=== PATIENT | female | born 1935 | race Caucasian/White ===

== ENCOUNTER 2018-04-25 10:11 | Emergency (ER) | payer OTHER ==
[2018-04-25 10:53] LABS: Absolute Lymphocytes (CBC) 14.8 K/uL (0.7-4.9); Absolute Monocytes 0.1 K/uL (0.1-1.3); Basophils % 0.4 % (0-1.3); Eosinophils % 0.1 % (0-4.4); Hematocrit 28.7 % (36.0-45.0); Lymphocytes % 92.8 % (15.3-44.8); MCH 34.3 pg (27.0-35.0); MCV 104.1 fL (80-100); MPV 10.1 fL (7.6-11.3); Monocytes % 0.7 % (3.3-12.3); RBC Red Blood Cell Count 2.76 M/uL (3.86-4.86)
--- OUTSIDE RECORDS SUMMARY | 2018-04-25 10:53 | XMS REPORT | Continuity of Care Document ---
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 LYMPHOCYTIC LEUK [address] [place] [address],[facility] FOLLOW Active [address] SHORTNESS OF Active [facility] BREATH [address] [place] [address] DR HAIRSTON TOLD PT Active [facility] TO COME [address] [place] [address] 1 WK POST OP F/U Active [address] PULMONARY Active [facility] FUNCTION TEST [address] [place] [address] AORTIC STENOSIS Active [address] ARTIC STENOSIS Active [address] TAVR Active [address] DX:CAD / Active [address] CCL/R Active [address] A FIB Active [address] SCI Active 012 Rehabilitation LUMBAR RAD Active [address], Rehabilitation Low back Resolved Problem Data [facility] pain<sup>1, 2, 012 8 migrated Medical 3</sup> from [facility], [facility] on 06/20/15. Heart Failure, ZACH Jordan Spinal stenosis Active Problem Data [facility] of lumbar 012 8 migrated Medical region<sup>4, from [facility], 5</sup> [facility] on 06/20/15. Heart Failure LUMBAR Active [facility] RADICULOPATHY [address] [place] [address] Center Diabetes Resolved Problem [facility] [address] [place] [address] Center, [facility] for [facility] Heart Failure, ZACH Jordan CAD - Coronary Active Problem OPID artery disease 3 [facility] DM - Diabetes Active Problem [facility] mellitus 3 [facility] Laminectomy Active Problem OPID 3 [facility] O/E - pain Active Problem OPID 3 [facility] Stented artery Active Problem OPID 3 [place],[facility] Heart attack Active Problem OPID 3 [place],[facility] Breast biopsy and Resolved Problem [facility] related Medical procedures Center, ZACH [facility] Heart Failure CAD - Coronary Active Problem [facility] artery disease [address] [place] [address], [facility] DM - Diabetes Active Problem [facility] mellitus [address] [place] [address], [facility] Heart attack Resolved Problem [address], ZACH [facility] Failure Laminectomy Resolved Problem [address], ZACH [facility] Failure Lumbar region Resolved Problem [facility] injury [address] [place] [address], Z[facility] O/E - pain Resolved Problem [address], ZACH [facility] Stented artery Active Problem [address], ZACH [facility] Heart Failure 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[address] [place] [address] Center replacement Essential [facility] hypertension [address] [place] [address] Hyperlipidemia, [facility] unspecified [address] [place] [address] Center Type 2 diabetes [facility] mellitus with [address] [place] [address] Center unspecified complications Severe aortic Active Problem [facility] stenosis [address] [place] [address], ZACH Jordan Chronic Active Problem [facility] lymphocytic [address] [place] [address] leukemia of [place], 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 Julian having achieved remission Foot swelling Resolved Problem [address] Center, OPITere Jordan HTN (<span Active Problem [facility] ID="[id number]" 8 Medical Confirmed</span> Center, ZACH ) Julian Breast biopsy and Resolved Problem [facility] related [address] [place] [address] Center procedures Cataract Resolved Problem [address] Lumbar region Resolved Problem [facility] injury [address] [place] [address] Cataract Resolved Problem OPID 6 Julian,[facility] Final: Illness, [facility] unspecified [address] [place] [address] Shortness of [facility] breath [address] [place] [address] 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 [address] [place] [address] Center Alkalosis [address] Type 2 diabetes [facility] mellitus with [address] [place] [address] Center hyperglycemia Other disorders [facility] of phosphorus [address] [place] [address] metabolism Hypermagnesemia [address] Center Thrombocytopenia, [facility] unspecified [address] [place] [address] Center Cardiomyopathy, [facility] unspecified [address] [place] [address] Center Acute kidney [facility] failure, [address] [place] [address] unspecified Hypo-osmolality [facility] and hyponatremia [address] [place] [address] Atherosclerotic [facility] heart disease of [address] [place] [address] [place] coronary artery without angina pectoris 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 [address] [place] [address] Center Presence of [facility] automatic cardiac [address] [place] [address] defibrillator 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 [address] [place] [address]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 8 Medical Center disease Presence of [facility] coronary [address] [place] [address] angioplasty implant and graft Claustrophobia [address] Anxiety disorder, [facility] unspecified [address] [place] [address] Monoarthritis, [facility]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[address] [place] [address] classified, 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 [address] [place] [address] Center senior care use of [facility] insulin [address] [place] [address] 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 use of [facility] anticoagulants [address] [place] [address] Constipation, [facility] unspecified Medical Center Other [facility] chondrocalcinosis [address] [place] [address] Center , right knee Other [facility] chondrocalcinosis [address] [place] [address] , left wrist Other [facility] chondrocalcinosis [address] [place] [address] , right wrist Hyperkalemia [address] Type 2 diabetes [facility] mellitus without [address] [place] [address] Center complications Acute myocardial [facility] infarction, [address] [place] [address] unspecified Spinal stenosis, [facility] lumbar region [address] [place] [address] without neurogenic claudication Other specified [facility] postprocedural [address] [place] [address] states Acute respiratory [facility] failure with Medical Center hypoxia 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 [address] [place] [address] valve Ischemic [facility]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 [address] [place] [address] Center Anemia, [facility] unspecified [address] [place] [address] Center Other fatigue [address] [facility] [address] [place] [address] LUMBOSACRAL Active [facility] NEURITIS NOS [facility] LUMBAR DISC Active DISPLACEMENT Rehabilitation, [facility] OTHER GENERAL Active SYMPTOMS Rehabilitation ILLNESS, Active [facility] SHORTNESS OF Active [facility] BREATH [facility] ANEMIA, Active [facility] Medications Medication Details Route Status Patient Ordering Order Source Instructions Provider Date bumetanide 1 mg
See Active 04/22[facility] oral tablet Instructions, 2018 Medical 2 tab PO qAM Center and 1 tab PO qPM, # 90 tab, 3 Refill(s), Pharmacy: [facility]/pharmacy #[id number] valsartan 40 mg
40 mg=1 Active 04/22[facility] oral tablet tab, PO, BID, 2018 Medical # 60 tab, 3 Center Refill(s), Pharmacy: [facility]/pharmacy #[id number] Neulasta
6 mg, Inactive [facility] 0.6 mL, 2018 Medical Route: SUB-Q, Center Drug form: INJ, On Adm, Start date: 03/20/18 8:00:00 CDT, Duration: 1 doses or times, Stop date: 03/20/18 23:00:00 CDT
Notes : (Same as: Neulasta) Restricted to Outpatient Benadryl
50 mg, 1 Inactive 03/19[facility] mL, Route: 2018 Medical IVP, Drug Center form: INJ, ONCALL, Start date: 03/19/18 7:00:00 CDT, Duration: 1 doses or times, Stop date: 03/19/18 21:00:00 CDT
Notes : (Same as: Benadryl) Tylenol
650 mg, Inactive [facility] 2 tab, Route: 2018 Medical PO, Drug Center form: TAB, ONCALL, Start date: 03/19/18 7:00:00 CDT, Duration: 1 doses or times, Stop date: 03/19/18 21:00:00 CDT
Notes : Do not exceed 4 gm/day. (Same as: Tylenol) dexamethasone
8 mg, 2 Inactive 03/19[facility] mL, Route: 2018 Medical IV, Drug Center form: INJ, ONCALL, Start date: 03/19/18 7:00:00 CDT, Duration: 1 doses or times, Stop date: 03/19/18 21:00:00 CDT meperidine
25 mg, 1 No Longer 03/19[facility] mL, Route: Active 2018 Medical IVP, Drug Center form: INJ, Q2H, PRN Chills/Rigors , Start date: 03/19/18 7:00:00 CDT, Duration: 1 day, Stop date: 03/20/18 6:59:00 CDT
Notes : (Same as: Demerol) "Use Precaution in Elderly, Seizure disorders, and Renal impairment" riTUXimab +
600 mg, Inactive [facility] Sodium Chloride 60 mL, Route: 2018 Medical 0.9% IV 190 mL IV, Drug Center form: KELLI ESPINOZA, Start date: 03/19/18 7:00:00 CDT, Duration: 1 doses or times, Stop date: 03/19/18 21:00:00 CDT
Notes : (Do not administer IV push or bolus). Final Concentration =1 mg/mL. Do not send via pneumatic tube system. CHEMOTHERAPY WASTE: F/P - Black; E - Yellow MEDICATION WASTE Product Size: 500 mg / 100 mg Product Wasted: __0_ mg ondansetron
8 mg, 50 Inactive [place] mL, Route: 2017 Medical IVPB, Drug Center form: KELLI ESPINOZA, Start date: 03/19/18 7:00:00 CDT, Duration: 1 doses or times, Stop date: 03/19/18 21:00:00 CDT
Notes : (Same as: Zofran) Use with 50 mL NS bag bendamustine 80
Route: Inactive [facility] mg + Overfill IV, Drug 2018 Medical Diluent form: Berta ESPINOZA Estimated 5 mL + ONCALL, Start Sodium Chloride date: 0.9% IV 50 mL 03/19/18 7:00:00 CDT, Duration: 1 doses or times, Stop date: 03/19/18 21:00:00 CDT
Notes : (Same as: Bendeka) WASTE: F/P - Black; E - Yellow CHEMOTHERAPY; Infuse entire contents for full dose valACYclovir 500
500 mg=1 Active [place] mg oral tablet tab, PO, 2018 Medical Q24H, # 90 Center tab, 1 Refill(s), Pharmacy: [facility]/pharmacy #[id number] Acetaminophen
325 mg, Active [place] PO, QID, 0 2018 Medical Refill(s) Center NIFEdipine 30 mg
30 mg=1 Active [facility] oral tablet, tab, PO, 2018 Medical extended release Daily, # 30 Center tab, 0 Refill(s) doxycycline
100 mg=1 Active [facility] hyclate 100 MG cap, PO, 2018 Medical Oral Capsule Q12H, # 20 Center cap, 0 Refill(s), Pharmacy: [facility]/pharmacy #[id number] Neulasta
6 mg, Inactive [place] 0.6 mL, 2018 Medical Route: SUB-Q, Center Drug form: INJ, ONCALL, Start date: 02/11/18 15:35:00 CDT, Duration: 1 doses or times, Stop date: 02/12/18 0:00:00 CDT
Notes : (Same as: Neulasta) Restricted to Outpatient 1.5 ML Insulin
10 unit, Active [place] Glargine 300 SUB-Q, 2018 Medical UNT/ML Prefilled Bedtime, # 5 [place] Syringe [Toujeo] mL, 0 Refill(s) carvedilol 6.25
6.25 Active [facility] mg oral tablet mg=1 tab, PO, 2018 Medical BID, 0 Center Refill(s) Aspirin 81 MG
81 mg=1 Active [facility] Chewable Tablet tab, PO, 2018 Medical Daily, 0 Center Refill(s) cyanocobalamin
250 Active [facility] 500 mcg microgram=0.5 2018 Medical sublingual tab, PO, Center tablet Daily, # 45 tab, 0 Refill(s) valACYclovir 500
500 mg=1 Active [facility] mg oral tablet tab, PO, 2018 Medical Q24H, 0 Center Refill(s) potassium
40 mEq=2 Active [facility] chloride 20 mEq tab, PO, 2018 Medical oral tablet, Daily, 0 Center extended release Refill(s) pantoprazole 40
40 mg=1 Active [facility] mg oral enteric tab, PO, 2018 Medical coated tablet Before Center Breakfast, 0 Refill(s) levofloxacin 250
250 mg=1 Active [facility] mg oral tablet tab, PO, 2018 Medical [id number], 0 Center Refill(s) Furosemide 40 MG
40 mg=1 Active [facility] Oral Tablet tab, PO, BID, 2018 Medical 0 Refill(s) Center fluconazole 100
100 mg=1 Active [place] mg oral tablet tab, PO, 2018 Medical [id number], 0 Center Refill(s) DULoxetine 30 mg
30 mg=1 Active [facility] oral delayed cap, PO, 2017 Medical release capsule Daily, 0 Center Refill(s) clopidogrel 75
75 mg=1 Active [place] mg oral tablet tab, PO, 2018 Medical Daily, 0 Center Refill(s) Clonidine
0.1 mg=1 Active [place] Hydrochloride tab, PO, BID, 2018 Medical 0.1 MG Oral 0 Refill(s) Center Tablet magnesium oxide
800 mg=2 Active [place] 400 mg oral tab, PO, 2018 Medical tablet Daily, X 30 Center day, # 60 tab, 0 Refill(s) Granix
300 Inactive [place] microgram, 2018 Medical 0.5 mL, Center Route: SUB-Q, Drug form: SOLN, ONCE, Dosing Weight 63.273, kg, Priority: Routine, Start date: 02/06/18 8:00:00 CDT, Stop date: 02/06/18 8:00:00 CDT
Notes : (Same as: Granix) Do not administer earlier than 24 hours after or in the 24 hours prior to cytotoxic chemotherapy. insulin,
10 unit, Inactive [facility] isophane 0.1 mL2017 Medical Route: SUB-Q, Center Drug form: INJ, Q8H-06, Dosing Weight 63.273, kg, Start date: 02/05/18 8:47:00 CDT, Stop date: 03/07/18 6:00:00 CDT
Notes : Roll in palms of hands gently; Do not shake vigorously. (Same as: Humulin N) Do not hold insulin without contacting prescriber WASTE: F/P - Black; E - Municipal Trash Bin Stable for 28 days at room temperature Expires in days from _Date Insulin regular
5 unit, Inactive [place] 0.05 mL, 2017 Medical Route: IV, Center Drug form: SOLN, ONCE, Dosing Weight 63.273, kg, Start date: 02/05/18 8:26:00 CDT, Stop date: 02/05/18 8:26:00 CDT
Notes : (Same as: Humulin R) Roll in palms of hands gently; Do not shake vigorously. "single patient use only" (Restricted to patients requiring a dose > 60 units) WASTE: F/P - Black; E - Municipal Trash Bin Stable for 28 days at room temperature Expires in days from _Date insulin,
15 unit, Inactive [facility] isophane 0.15 mL, 2017 Medical Route: SUB-Q, Center Drug form: INJ, ONCE, Dosing Weight 63.273, kg, Start date: 02/05/18 8:25:00 CDT, Stop date: 02/05/18 8:25:00 CDT
Notes : Roll in palms of hands gently; Do not shake vigorously. (Same as: Humulin N) Do not hold insulin without contacting prescriber WASTE: F/P - Black; E - Municipal Trash Bin Stable for 28 days at room temperature Expires in days from _Date dexamethasone
8 mg, 2 Inactive [place] mL, Route: 2018 Medical IV, Drug Center form: INJ, ONCE, Start date: 02/04/18 22:27:00 CDT, Stop date: 02/04/18 22:27:00 CDT
Notes : Concentration : 4mg/ml dexamethasone
8 mg, Inactive [place] 0.8 mL, 2017 Medical Route: IV, Center Drug form: INJ, ONCE, Start date: 02/04/18 22:21:00 CDT, Stop date: 02/04/18 22:21:00 CDT
Notes : MEDICATION WASTE Product Size: 10 mg Product Wasted: __2_ mg dexamethasone
8 mg, Inactive [place] 0.8 mL, 2017 Medical Route: IV, Center Drug form: INJ, ONCALL, Start date: 02/04/18 21:00:00 CDT, Duration: 1 doses or times, Stop date: 02/05/18 20:59:00 CDT
Notes : MEDICATION WASTE Product Size: 10 mg Product Wasted: __2_ mg EPINEPHrine 1
0.1 mg, No Longer [place] mg/10ml 1 mL, Route: Active 2018 Medical (1:10,000) IV, Drug Center injectable form: SOLN, solution ONCALL, PRN Allergic reaction, Start date: 02/04/18 21:00:00 CDT, Duration: 1 day, Stop date: 02/05/18 20:59:00 CDT
Notes : Luer lock syringe Zofran
8 mg, 4 Inactive [place] mL, Route: 2018 Medical IV, Drug Center form: INJ, ONCALL, Start date: 02/04/18 21:00:00 CDT, Duration: 1 doses or times, Stop date: 02/05/18 20:59:00 CDT
Notes : (Same as: Zofran) MEDICATION WASTE Product Size: 4 mg Product Wasted: ___0 mg Solu-CORTEF
100 mg, No Longer [facility] 2 mL, Route: Active 2018 Medical IV, Drug Center form: PDR/INJ, ONCALL, PRN Allergic reaction, Start date: 02/04/18 21:00:00 CDT, Duration: 1 day, Stop date: 02/05/18 20:59:00 CDT
Notes : (Same as: Solu-CORTEF) bendamustine 110
Route: No Longer [facility] mg + Overfill IV, Drug Active 2017 Medical Diluent form: SOLN, Center Estimated 5 mL + ONCALL, Start Sodium Chloride date: 0.9% IV 50 mL 02/04/18 21:00:00 CDT, Duration: 1 doses or times, Stop date: 02/05/18 20:59:00 CDT
Notes : (Same as: Jose Alfredo) WASTE: F/P - Black; E - Yellow CHEMOTHERAPY; Infuse entire contents for full dose Benadryl
50 mg, 1 No Longer [place] mL, Route: Active 2018 Medical IV, Drug Center form: INJ, ONCALL, PRN Allergic reaction, Start date: 02/04/18 18:02:00 CDT, Duration: 1 day, Stop date: 02/05/18 18:01:00 CDT
Notes : (Same as: Benadryl) Elitek + Sodium
6 mg, Inactive [place] Chloride 0.9% IV Route: IVPB, 2018 Medical 50 mL ONCALL, Start Center date: 02/04/18 18:00:00 CDT, Duration: 1 doses or times, Stop date: 02/05/18 17:59:00 CDT
Notes : Do not filter during preparation or infusion. IV line should be flushed with at least 15 mL saline prior to and following rasburicase infusion Alprazolam 0.25
0.25 mg, No Longer [place] MG Oral Tablet 1 tab, Route: Active 2018 Medical PO, Drug Center form: TAB, TID, Dosing Weight 63.273, kg, PRN as needed for anxiety, Start date: 02/04/18 10:33:00 CDT, Duration: 30 day, Stop date: 03/06/18 10:32:00 CDT
Notes : With food or milk (Same as: Xanax) Humalog
15 unit, No Longer [place] 0.15 mL, Active 2018 Medical Route: SUB-Q, Center Drug form: SOLN, TID, Start date: 02/03/18 13:00:00 CDT, Stop date: 03/05/18 9:00:00 CDT
Notes : (Same as: Humalog ) Roll in palms of hands gently; Do not shake `vigorously. "Single Patient Use Only " WASTE: F/P - Black; E - Municipal Trash Bin Stable for 28 days at room temperature. Expires in days from _Date Insulin Glargine
10 unit, No Longer [facility] [place] 100 UNT/ML Route: SUB-Q, Active 2017 Medical Injectable Daily, Dosing Center Solution Weight 63.273, kg, Start date: 02/03/18 9:00:00 CDT, Duration: 30 day, Stop date: 03/04/18 9:00:00 CDT Insulin Glargine
10 unit, No Longer [facility] 100 UNT/ML 0.1 mL, Active 2017 Medical Injectable Route: SUB-Q, Center Solution Drug form: SOLN, Bedtime, Dosing Weight 63.273, kg, Start date: 02/02/18 21:00:00 CDT, Stop date: 03/03/18 21:00:00 CDT
Notes : (Same as: [place]) Do not hold insulin without contacting prescriber WASTE: F/P - Black; E - Municipal Trash Bin "single patient use only" Magnesium Oxide
800 mg, No Longer [facility] 2 tab, Route: Active 2017 Medical PO, Drug Center form: TAB, BID, Dosing Weight 63.273, kg, Start date: 02/02/18 17:00:00 CDT, Duration: 30 day, Stop date: 03/04/18 9:00:00 CDT
Notes : (Same as: Mag-Ox 400) Magnesium oxide [id number] elemental magnesium Dose=____mg magnesium oxide (___mg elemental magnesium) Ondansetron
4 mg, 2 No Longer [facility] mL, Route: Active 2017 Medical IVP, Drug Center form: INJ, Q4H, Dosing Weight 63.273, kg, PRN Nausea, Start date: 02/02/18 16:15:00 CDT, Duration: 30 day, Stop date: 03/04/18 16:14:00 CDT
Notes : (Same as: [place]) MEDICATION WASTE Product Size: 4 mg Product Wasted: ___ mg Magnesium Oxide
800 mg, Inactive [facility] Route: PO, 2017 Medical Drug form: Center TAB, Daily, Dosing Weight 63.273, kg, Start date: 02/02/18 15:26:00 CDT, Duration: 30 day, Stop date: 03/04/18 9:00:00 CDT Versed
0.5 mg, Inactive [facility] Route: IV, 2018 Medical ONCE, Dosing Center Weight 63.273, kg, Start date: 02/02/18 14:49:00 CDT, Stop date: 02/02/18 14:49:00 CDT Fentanyl
25 Inactive [facility] microgram, 2018 Medical Route: IV, Center ONCE, Dosing Weight 63.273, kg, Start date: 02/02/18 14:49:00 CDT, Stop date: 02/02/18 14:49:00 CDT Versed
0.5 mg, Inactive [facility] Route: IV, 2018 Medical ONCE, Dosing Center Weight 63.273, kg, Start date: 02/02/18 14:44:00 CDT, Stop date: 02/02/18 14:44:00 CDT Fentanyl
25 Inactive [facility] microgram, 2018 Medical Route: IV, Center ONCE, Dosing Weight 63.273, kg, Start date: 02/02/18 14:44:00 CDT, Stop date: 02/02/18 14:44:00 CDT Furosemide 40 MG
40 mg, 1 No Longer [facility] Oral Tablet tab, Route: Active 2018 Medical PO, Drug Center form: TAB, BID, Dosing Weight 63.273, kg, Start date: 02/01/18 17:00:00 CDT, Duration: 30 day, Stop date: 03/03/18 9:00:00 CDT
Notes : (Same as: Lasix) May cause GI upset. Give with food or milk. Vitamin B12
1,000 Inactive [facility] microgram, 1 2018 Medical mL, Route: Center IM, Drug form: INJ, ONCE, Dosing Weight 63.273, kg, Start date: 02/01/18 12:18:00 CDT, Stop date: 02/01/18 12:18:00 CDT
Notes : (Same As: Vitamin B12) Rasburicase
6 mg, Inactive [facility] Route: IV, 2018 Medical ONCE, Dosing Center Weight 63.273, kg, Start date: 02/01/18 12:17:00 CDT, Stop date: 02/01/18 12:17:00 CDT
Notes : Restricted Medication: All Doses of Rasburicase should be interchanged to Rasburicase 6 mg x1 dose. A second dose may be given for patients unresponsive to 1 dose. (Same as:Elitek) MEDICATION WASTE Product Size: 1.5 mg Product Wasted: ___ mg potassium
40 mEq, No Longer [place] chloride 20 mEq 2 tab, Route: Active 2017 Medical oral tablet, PO, Drug Center extended release form: ERTAB, Daily, Dosing Weight 63.273, kg, Start date: 01/31/18 9:00:00 CDT, Duration: 30 day, Stop date: 03/01/18 9:00:00 CDT potassium
40 mEq, No Longer [place] chloride 20 mEq 2 tab, Route: Active 2017 Medical oral tablet, PO, Drug [place] extended release form: ERTAB, Daily, Dosing Weight 63.273, kg, Start date: 01/30/18 20:58:00 CDT, Stop date: 03/01/18 9:00:00 CDT
Notes : (Same as: K-Dur 20) "Do Not Crush" For patients unable to swallow tablet, dissolve in one half glass of water. Allow about 2 minutes for the tablets to disintegrate. Stir before giving to prepare slurry and administer. Please exclude Patients with feeding tube less than 14 [place] (Dobhoff, J-tube etc) and pediatric and patients. With food and full glass of water Vitamin B 12
250 No Longer [place] microgram, 1 Active 2018 Medical tab, Route: Center PO, Drug form: TAB, Daily, Dosing Weight 63.273, kg, Start date: 01/30/18 9:00:00 CDT, Duration: 30 day, Stop date: 02/28/18 9:00:00 CDT
Notes : (Same As: Vitamin B12) Lasix
40 mg, 4 No Longer [place] mL, Route: Active 2017 Medical IVP, Drug Center form: INJ, BID, Dosing Weight 63.273, kg, Start date: 01/29/18 17:00:00 CDT, Stop date: 02/28/18 9:00:00 CDT
Notes : (Same as: Lasix) MEDICATION WASTE Product Size: 40 mg Product Wasted: ___ mg Humulin N
8 unit, Inactive [facility] 0.08 mL, 2017 Medical Route: SUB-Q, [place] Drug form: INJ, ONCE, Start date: 01/29/18 15:00:00 CDT, Stop date: 01/29/18 15:00:00 CDT
Notes : Roll in palms of hands gently; Do not shake vigorously. (Same as: Humulin N) Do not hold insulin without contacting prescriber WASTE: F/P - Black; E - Municipal Trash Bin Stable for 28 days at room temperature Expires in days from _Date insulin,
20 unit, No Longer [facility] isophane 0.2 mL, Active 2017 Medical Route: SUB-Q, [place] Drug form: INJ, Q8H-06, Dosing Weight 63.273, kg, Start date: 01/29/18 14:00:00 CDT, Stop date: 02/28/18 6:00:00 CDT
Notes : Roll in palms of hands gently; Do not shake vigorously. (Same as: Humulin N) Do not hold insulin without contacting prescriber WASTE: F/P - Black; E - Municipal Trash Bin Stable for 28 days at room temperature Expires in days from _Date dexamethasone
40 mg, No Longer [place] 10 tab, Active 2018 Medical Route: PO, Center Drug form: TAB, Q24H, Start date: 01/29/18 14:00:00 CDT, Duration: 2 doses or times, Stop date: 01/30/18 14:00:00 CDT
Notes : Give with food. (Same As: Decadron) insulin regular
10 unit, Inactive [facility] 100 units/mL 0.1 mL, 2018 Medical human Route: IV, Center recombinant Drug form: SOLN, ONCE, Start date: 01/29/18 13:00:00 CDT, Stop date: 01/29/18 13:00:00 CDT
Notes : (Same as: Humulin R) Roll in palms of hands gently; Do not shake vigorously. "single patient use only" (Restricted to patients requiring a dose > 60 units) WASTE: F/P - Black; E - Municipal Trash Bin Stable for 28 days at room temperature Expires in days from _Date insulin regular
10 unit, Inactive [facility] 100 units/mL 0.1 mL, 2017 Medical human Route: IV, Center recombinant Drug form: SOLN, ONCE, Start date: 01/29/18 12:00:00 CDT, Stop date: 01/29/18 12:00:00 CDT
Notes : (Same as: Humulin R) Roll in palms of hands gently; Do not shake vigorously. "single patient use only" (Restricted to patients requiring a dose > 60 units) WASTE: F/P - Black; E - Municipal Trash Bin Stable for 28 days at room temperature Expires in days from _Date Ferrlecit
125 mg, No Longer [facility] 10 mL, Route: Active 2017 [facility] IVPB, Daily, Center Dosing Weight 63.273, kg, Start date: 01/29/18 10:46:00 CDT, Duration: 10 doses or times, Stop date: 02/07/18 9:00:00 CDT
Notes : (sodium ferric gluconate complex (elemental iron) 62.5 mg/5 ml INJ) "Limited stability. Use immediately after admixture" (Same as: Ferrlecit) MEDICATION WASTE Product Size: 62.5 mg Product Wasted: ___ mg Vitamin B 12
1,000 Inactive [facility] microgram, 1 2018 Medical mL, Route: Center IM, Drug form: INJ, ONCE, Dosing Weight 63.273, kg, Start date: 01/29/18 9:01:00 CDT, Stop date: 01/29/18 9:01:00 CDT
Notes : (Same As: Vitamin B12) Lasix
40 mg, 4 Inactive [facility] mL, Route: 2018 Medical IVP, Drug Center form: INJ, BID, Dosing Weight 63.273, kg, Start date: 01/29/18 9:00:00 CDT, Duration: 30 day, Stop date: 02/27/18 17:00:00 CDT
Notes : (Same as: Lasix) MEDICATION WASTE Product Size: 40 mg Product Wasted: ___ mg insulin,
7 unit, Inactive [facility] isophane 0.07 mL, 2018 Medical Route: SUB-Q, [place] Drug form: INJ, ONCE, Dosing Weight 63.273, kg, Start date: 01/29/18 8:58:00 CDT, Stop date: 01/29/18 8:58:00 CDT
Notes : Roll in palms of hands gently; Do not shake vigorously. (Same as: Humulin N) Do not hold insulin without contacting prescriber WASTE: F/P - Black; E - Municipal Trash Bin Stable for 28 days at room temperature Expires in days from _Date Paramjit packet
1 pkt, No Longer [facility] Route: PO, Active 2017 Medical Drug Form: [place] PWDR, Dosing Weight 63.273, kg, BID-Before Meals, Start date: 01/28/18 16:30:00 CDT, Duration: 14 day, Stop date: 02/11/18 7:30:00 CDT
Notes : (Same as: Paramjit [place]) Insulin Lispro
6 unit, No Longer [facility] 0.06 mL, Active 2017 Medical Route: SUB-Q, [place] Drug form: SOLN, TID-Before Meals, Dosing Weight 63.273, kg, PRN Blood Glucose Results, Start date: 01/28/18 15:41:00 CDT, Duration: 30 day, Stop date: 02/27/18 15:40:00 CDT
Notes : (Same as: Humalog ) Roll in palms of hands gently; Do not shake `vigorously. "Single Patient Use Only " WASTE: F/P - Black; E - Municipal Trash Bin Stable for 28 days at room temperature. Expires in days from _Date Dextrose 50%
12.5 gm, No Longer [place] Syringe 25 mL, Route: Active 2018 Medical IVP, Drug Center Form: INJ, Dosing Weight 63.273, kg, PRN, PRN Blood Glucose Results, Start date: 01/28/18 15:41:00 CDT, Duration: 30 day, Stop date: 02/27/18 15:40:00 CDT Glucagon
1 mg, No Longer [facility] Route: IM, Active 2017 Medical Drug form: Center PDR/INJ, PRN, Dosing Weight 63.273, kg, PRN Blood Glucose Results, Start date: 01/28/18 15:41:00 CDT, Duration: 30 day, Stop date: 02/27/18 15:40:00 CDT insulin,
10 unit, No Longer [place] isophane 0.1 mL, Active 2018 Medical Route: SUB-Q, Center Drug form: INJ, Q8H, Dosing Weight 63.273, kg, Start date: 01/28/18 14:58:00 CDT, Duration: 30 day, Stop date: 02/27/18 8:00:00 CDT
Notes : Roll in palms of hands gently; Do not shake vigorously. (Same as: Humulin N) Do not hold insulin without contacting prescriber WASTE: F/P - Black; E - Municipal Trash Bin Stable for 28 days at room temperature Expires in days from _Date Rasburicase
6 mg, Inactive [facility] Route: IV, 2018 Medical ONCE, Dosing Center Weight 63.273, kg, Start date: 01/28/18 13:46:00 CDT, Stop date: 01/28/18 13:46:00 CDT
Notes : Restricted Medication: All Doses of Rasburicase should be interchanged to Rasburicase 6 mg x1 dose. A second dose may be given for patients unresponsive to 1 dose. (Same as:Yukik) MEDICATION WASTE Product Size: 1.5 mg Product Wasted: ___ mg Insulin Lispro
8 unit, No Longer [facility] 0.08 mL, Active 2017 Medical Route: SUB-Q, Center Drug form: SOLN, TID-Before Meals, Dosing Weight 63.273, kg, Start date: 01/28/18 11:30:00 CDT, Stop date: 02/27/18 7:30:00 CDT
Notes : (Same as: Humalog ) Roll in palms of hands gently; Do not shake `vigorously. "Single Patient Use Only " WASTE: F/P - Black; E - Municipal Trash Bin Stable for 28 days at room temperature. Expires in days from _Date Insulin regular
10 unit, Inactive [facility] 0.1 mL, 2017 Medical Route: IV, Center Drug form: SOLN, ONCE, Dosing Weight 63.273, kg, Start date: 01/28/18 11:19:00 CDT, Stop date: 01/28/18 11:19:00 CDT
Notes : (Same as: Humulin R) Roll in palms of hands gently; Do not shake vigorously. "single patient use only" (Restricted to patients requiring a dose > 60 units) WASTE: F/P - Black; E - Municipal Trash Bin Stable for 28 days at room temperature Expires in days from _Date 3 ML Insulin
5 unit, Inactive [facility] Glargine 100 0.05 mL, 2018 Medical UNT/ML Prefilled Route: SUB-Q, Center Syringe [Lantus] Drug form: SOLN, ONCE, Dosing Weight 63.273, kg, Start date: 01/28/18 11:13:00 CDT, Stop date: 01/28/18 11:13:00 CDT
Notes : Same as: Lantus) Do not hold insulin without contacting prescriber WASTE: F/P - Black; E - Municipal Trash Bin Insulin Lispro
10 unit, Inactive [facility] Route: SUB-Q, 2017 Medical ONCE, Dosing Center Weight 63.273, kg, Start date: 01/28/18 11:11:00 CDT, Stop date: 01/28/18 11:11:00 CDT NIFEdipine 30 mg
30 mg, 1 No Longer [facility] oral tablet, tab, Route: Active 2017 Medical extended release PO, Drug Center form: ERTAB, Daily, Dosing Weight 63.273, kg, Start date: 01/28/18 9:00:00 CDT, Duration: 30 day, Stop date: 02/26/18 9:00:00 CDT potassium
20 mEq, No Longer [facility] chloride 20 mEq 1 tab, Route: Active 2017 Medical oral tablet, PO, Drug Center extended release form: ERTAB, Q12H, Dosing Weight 63.273, kg, Start date: 01/28/18 9:00:00 CDT, Duration: 30 day, Stop date: 02/26/18 21:00:00 CDT
Notes : (Same as: K-Dur 20) "Do Not Crush" For patients unable to swallow tablet, dissolve in one half glass of water. Allow about 2 minutes for the tablets to disintegrate. Stir before giving to prepare slurry and administer. Please exclude Patients with feeding tube less than 14 [place] (Dobhoff, J-tube etc) and pediatric and patients. With food and full glass of water Lovenox
30 mg, No Longer [facility] 0.3 mL, Active 2017 Medical Route: SUB-Q, Center Drug form: INJ, [id number], Dosing Weight 63.273, kg, For CrCl <30mL/min, Start date: 01/28/18 9:00:00 CDT, Duration: 30 day, Stop date: 02/26/18 9:00:00 CDT
Notes : (Same as: Lovenox) Magnesium Oxide
800 mg, No Longer [facility] 2 tab, Route: Active 2018 Medical PO, Drug Center form: TAB, Daily, Dosing Weight 63.273, kg, Start date: 01/28/18 9:00:00 CDT, Duration: 30 day, Stop date: 02/26/18 9:00:00 CDT
Notes : (Same as: Mag-Ox 400) Magnesium oxide [id number] elemental magnesium Dose=____mg magnesium oxide (___mg elemental magnesium) Docusate Sodium
100 mg, No Longer [facility] 100 MG Oral 1 cap, Route: Active 2018 Medical Capsule [Colace] PO, Drug Center form: CAP, BID, Dosing Weight 63.273, kg, Start date: 01/28/18 9:00:00 CDT, Duration: 30 day, Stop date: 02/26/18 17:00:00 CDT
Notes : (Same as: Colace) (Do Not Crush) Miralax
17 gm, 1 No Longer [place] pkt, Route: Active 2018 Medical PO, Drug Center form: PWDR, Daily, Dosing Weight 63.273, kg, Start date: 01/28/18 9:00:00 CDT, Duration: 30 day, Stop date: 02/26/18 9:00:00 CDT
Notes : Dissolve in 8 oz of water or juice. (Same as: Miralax) Sodium Chloride
540 mL, Inactive [facility] 0.9% IV 540 mL + Rate: Titrate 2018 Medical riTUXimab 600 mg as directed., Center Route: IV, Dosing Weight 63.273 kg, Total Volume: 600, Start date: 01/27/18 23:00:00 CDT, Duration: 1 doses or times, Stop date: 01/28/18 22:59:00 CDT, 1.69, m2
Notes: (Do not administer IV push or bolus). Final Concentration =1 mg/mL. Start infusion at 50 mg/hr and increase by 50 mg/hr every 30 minutes to a maximum rate of 400 mg/hr. Do not send via pneumatic tube system. CHEMOTHERAPY; Infuse entire contents for full dose. (Same as: Rituxan) WASTE: F/P - Black; E - Yellow MEDICATION WASTE Product Size: 100 mg Product Wasted: ___ mg dexamethasone
40 mg, No Longer [facility] 10 tab, Active 2017 Medical Route: PO, Center Drug form: TAB, Daily, Start date: 01/27/18 23:00:00 CDT, Duration: 4 day, Stop date: 01/30/18 23:00:00 CDT
Notes : Give with food. (Same As: Decadron) Insulin Lispro
10 unit, No Longer [place] 0.1 mL, Active 2017 Medical Route: SUB-Q, Center Drug form: SOLN, TID-Before Meals, Dosing Weight 63.273, kg, PRN Blood Glucose Results, Start date: 01/27/18 22:38:00 CDT, Duration: 30 day, Stop date: 02/26/18 22:37:00 CDT
Notes : (Same as: Humalog ) Roll in palms of hands gently; Do not shake `vigorously. "Single Patient Use Only " WASTE: F/P - Black; E - Municipal Trash Bin Stable for 28 days at room temperature. Expires in days from _Date Glucagon
1 mg, No Longer [place] Route: IM, Active 2017 Medical Drug form: Center PDR/INJ, PRN, Dosing Weight 63.273, kg, PRN Blood Glucose Results, Start date: 01/27/18 22:38:00 CDT, Duration: 30 day, Stop date: 02/26/18 22:37:00 CDT Dextrose 50%
12.5 gm, No Longer [place] Syringe 25 mL, Route: Active 2018 Medical IVP, Drug Center Form: INJ, Dosing Weight 63.273, kg, PRN, PRN Blood Glucose Results, Start date: 01/27/18 22:38:00 CDT, Duration: 30 day, Stop date: 02/26/18 22:37:00 CDT meperidine
25 mg, 1 Inactive [facility] mL, Route: 2018 Medical IVP, Drug Center form: INJ, ONCE, Start date: 01/27/18 22:30:00 CDT, Stop date: 01/27/18 22:30:00 CDT
Notes : (Same as: Demerol) "Use Precaution in Elderly, Seizure disorders, and Renal impairment" Tylenol
650 mg, Inactive [facility] 2 tab, Route: 2018 Medical PO, Drug Center form: TAB, ONCE, Start date: 01/27/18 22:30:00 CDT, Stop date: 01/27/18 22:30:00 CDT
Notes : Do not exceed 4 gm/day. (Same as: Tylenol) Benadryl
50 mg, 1 Inactive [facility] mL, Route: 2017 Medical IVP, Drug Center form: INJ, ONCE, Start date: 01/27/18 22:30:00 CDT, Stop date: 01/27/18 22:30:00 CDT
Notes : (Same as: Benadryl) Elitek + Sodium
6 mg, Inactive [facility] Chloride 0.9% IV Route: IVPB, 2017 Medical 50 mL ONCE, Start Center date: 01/27/18 22:30:00 CDT, Stop date: 01/27/18 22:30:00 CDT
Notes : Restricted Medication: All Doses of Rasburicase should be interchanged to Rasburicase 6 mg x1 dose. A second dose may be given for patients unresponsive to 1 dose. (Same as:Elitek) MEDICATION WASTE Product Size: 1.5 mg Product Wasted: ___ mg meperidine
25 mg, 1 No Longer [facility] mL, Route: Active 2017 Medical IVP, Drug Center form: INJ, Q2H, PRN Allergic reaction, Start date: 01/27/18 21:35:00 CDT, Duration: 1 day, Stop date: 01/28/18 21:34:00 CDT
Notes : (Same as: Demerol) "Use Precaution in Elderly, Seizure disorders, and Renal impairment" EPINEPHrine 1
0.1 mg, No Longer [facility] mg/10ml 1 mL, Route: Active 2018 Medical (1:10,000) IVP, Drug Center injectable form: SOLN, solution ONCE, PRN Allergic reaction, Start date: 01/27/18 21:34:00 CDT
Notes : Luer lock syringe Benadryl
50 mg, 1 No Longer [facility] mL, Route: Active 2017 Medical IVP, Drug Center form: INJ, ONCE, PRN Allergic reaction, Start date: 01/27/18 21:29:00 CDT
Notes : (Same as: Benadryl) Solu-CORTEF
100 mg, No Longer [facility] 2 mL, Route: Active 2017 Medical IVP, Drug Center form: PDR/INJ, ONCE, PRN Allergic reaction, Start date: 01/27/18 21:27:00 CDT
Notes : (Same as: Solu-CORTEF) Zofran
8 mg, 4 No Longer [facility] mL, Route: Active 2017 Medical IVP, Drug Center form: INJ, ONCE, PRN Nausea & Vomiting, Start date: 01/27/18 21:19:00 CDT
Notes : (Same as: Zofran) MEDICATION WASTE Product Size: 4 mg Product Wasted: ___ mg Lasix
40 mg, 4 No Longer [facility] mL, Route: Active 2017 Medical IVP, Drug Center form: INJ, BID, Dosing Weight 63.273, kg, Start date: 01/27/18 17:00:00 CDT, Duration: 30 day, Stop date: 02/26/18 9:00:00 CDT
Notes : (Same as: Lasix) MEDICATION WASTE Product Size: 40 mg Product Wasted: ___ mg Fluconazole
100 mg, No Longer [facility] 1 tab, Route: Active 2018 Medical PO, Drug Center form: TAB, [id number], Dosing Weight 63.273, kg, Start date: 01/27/18 16:00:00 CDT, Duration: 30 day, Stop date: 02/25/18 16:00:00 CDT, ABX Indication: Immunocomprom ised Host Prophylaxis<b r/>Notes: (Same as: Diflucan) Saline Flush
10 mL, No Longer [facility] 0.9% Route: IVP, Active 2017 Medical Drug Form: [place] INJ, Dosing Weight 63.273, kg, Q8H, Start date: 01/27/18 16:00:00 CDT, Duration: 30 day, Stop date: 02/26/18 8:00:00 CDT
Notes : (Same as: BD Posiflush) Levofloxacin
250 mg, No Longer [facility] 1 tab, Route: Active 2018 Medical PO, Drug Center form: TAB, [id number], Dosing Weight 63.273, kg, Start date: 01/27/18 15:18:00 CDT, Duration: 30 day, Stop date: 02/24/18 15:18:00 CDT, ABX Indication: Immunocomprom ised Host Prophylaxis<b r/>Notes: Do not give w/antacids, dairy pdt & minerals Take 1 hr before or 2 hr after dairy pdt (Same as:Levaquin) Lidocaine
50 mg, 5 No Longer [facility] Hydrochloride 10 mL, Route: Active 2017 Medical MG/ML Injectable INTRADERM, [facility] Solution Drug Form: INJ, Dosing Weight 63.273, kg, ONCALL, Start date: 01/27/18 13:00:00 CDT, Duration: 30 day, Stop date: 02/26/18 12:59:00 CDT
Notes : (Same as: Xylocaine) Saline Flush
10 mL, No Longer [facility] 0.9% Route: IVP, Active 2017 Medical Drug Form: [place] INJ, Dosing Weight 63.273, kg, PRN, PRN Line Flush, Start date: 01/27/18 12:49:00 CDT, Duration: 30 day, Stop date: 02/26/18 12:48:00 CDT
Notes : (Same as: BD Posiflush) Fluconazole
100 mg, Inactive [facility] Route: PO, 2018 Medical Drug form: [place] TAB, [id number], Dosing Weight 63.273, kg, Start date: 01/27/18 12:00:00 CDT, Duration: 30 day, Stop date: 02/25/18 12:00:00 CDT, ABX Indication: Open Wound Prophylaxis valacyclovir
500 mg, No Longer [facility] 1 tab, Route: Active 2017 Medical PO, Drug Center form: TAB, Q24H, Dosing Weight 63.273, kg, Start date: 01/27/18 12:00:00 CDT, Duration: 30 day, Stop date: 02/25/18 12:00:00 CDT
Notes : (Same As: Valtrex) Lasix
40 mg, 4 Inactive [facility] mL, Route: 2018 Medical IVP, Drug Center form: INJ, Daily, Dosing Weight 63.273, kg, Start date: 01/27/18 11:27:00 CDT, Duration: 30 day, Stop date: 02/26/18 9:00:00 CDT
Notes : (Same as: Lasix) MEDICATION WASTE Product Size: 40 mg Product Wasted: ___ mg duloxetine
30 mg, 1 No Longer [facility] cap, Route: Active 2017 Medical PO, Drug Center form: DRC, Daily, Dosing Weight 63.636, kg, Start date: 01/27/18 9:00:00 CDT, Duration: 30 day, Stop date: 02/25/18 9:00:00 CDT
Notes : (Same as: Cymbalta) (Do Not Crush) clopidogrel
75 mg, 1 No Longer [facility] tab, Route: Active 2017 Medical PO, Drug Center form: TAB, Daily, Dosing Weight 63.636, kg, Start date: 01/27/18 9:00:00 CDT, Duration: 30 day, Stop date: 02/25/18 9:00:00 CDT
Notes : (Same As: Plavix) Clonidine
0.1 mg, No Longer [facility] Hydrochloride 1 tab, Route: Active 2017 Medical 0.1 MG Oral PO, Drug Center Tablet form: TAB, BID, Dosing Weight 63.636, kg, Start date: 01/27/18 9:00:00 CDT, Duration: 30 day, Stop date: 02/25/18 17:00:00 CDT
Notes : (Same As: Catapres) Lasix
40 mg, 1 Inactive [facility] tab, Route: 2018 Medical PO, Drug Center form: TAB, Daily, Dosing Weight 63.636, kg, Start date: 01/27/18 9:00:00 CDT, Duration: 30 day, Stop date: 02/25/18 9:00:00 CDT
Notes : (Same as: Lasix) May cause GI upset. Give with food or milk. Insulin Glargine
18 unit, No Longer [facility] 0.18 mL, Active 2017 Medical Route: SUB-Q, Center Drug form: SOLN, Daily, Dosing Weight 63.636, kg, Start date: 01/27/18 9:00:00 CDT, Stop date: 02/25/18 9:00:00 CDT
Notes : Same as: Lantus) Do not hold insulin without contacting prescriber WASTE: F/P - Black; E - Municipal Trash Bin carvedilol
6.25 mg, No Longer [facility] 1 tab, Route: Active 2017 Medical PO, Drug Center form: TAB, BID, Dosing Weight 63.636, kg, Start date: 01/27/18 9:00:00 CDT, Duration: 30 day, Stop date: 02/25/18 21:00:00 CDT
Notes : Give with food. (Same As: Coreg) Aspirin 81 MG
81 mg, 1 No Longer [facility] Chewable Tablet tab, Route: Active 2018 Medical PO, Drug Center form: CHEWTAB, Daily, Dosing Weight 63.636, kg, Start date: 01/27/18 9:00:00 CDT, Duration: 30 day, Stop date: 02/25/18 9:00:00 CDT
Notes : Take with food. Lovenox
30 mg, No Longer [facility] Route: SUB-Q, Active 2017 Medical Drug form: Center INJ, [id number], Dosing Weight 63.636, kg, For CrCl <30mL/min, Start date: 01/27/18 9:00:00 CDT, Duration: 30 day, Stop date: 02/25/18 9:00:00 CDT heparin
5,000 No Longer [facility] unit, 1 mL, Active 2017 Medical Route: SUB-Q, Center Drug form: INJ, Q8H, Dosing Weight 63.636, kg, Start date: 01/27/18 8:00:00 CDT, Duration: 30 day, Stop date: 02/26/18 0:00:00 CDT
Notes : porcine heparin pantoprazole
40 mg, 1 No Longer [facility] tab, Route: Active 2017 Medical PO, Drug Center form: ECTAB, Before Breakfast, Dosing Weight 63.636, kg, Start date: 01/27/18 7:30:00 CDT, Duration: 30 day, Stop date: 02/25/18 7:30:00 CDT
Notes : Tablet should not be chewed or crushed. (Same as: Protonix) tramadol
50 mg, 1 Inactive [facility] hydrochloride 50 tab, Route: 2018 Medical MG Oral Tablet PO, Drug Center form: TAB, ONCE, Dosing Weight 63.835, kg, Start date: 01/26/18 23:12:00 CDT, Stop date: 01/26/18 23:12:00 CDT
Notes : Not to exceed 400mg/day. (Same As: Ultram) Saline Flush
10 ml, No Longer [facility] 0.9% Route: IVP, Active 2017 Medical Drug Form: Center INJ, Dosing Weight 63.636, kg, Q12H, Start date: 01/26/18 21:00:00 CDT, Duration: 30 day, Stop date: 02/25/18 9:00:00 CDT
Notes : (Same as: BD Posiflush) Magnesium
1 gm, 50 No Longer [facility] Sulfate mL, Route: Active 2017 Medical IVPB, Drug Center form: INJ, PRN, Dosing Weight 63.636, kg, PRN Abnormal Lab Result, For NON-ICU Patients Only., Start date: 01/26/18 20:30:00 CDT, Duration: 30 day, Stop date: 02/25/18 20:29:00 CDT
Notes : WASTE: F/P - Sink; E - Municipal Trash Bin Magnesium Oxide
800 mg, No Longer [place] 2 tab, Route: Active 2018 Medical PO, Drug Center form: TAB, PRN, Dosing Weight 63.636, kg, PRN Abnormal Lab Result, For NON-ICU Patients Only., Start date: 01/26/18 20:30:00 CDT, Duration: 30 day, Stop date: 02/25/18 20:29:00 CDT
Notes : (Same as: Mag-Ox 400) Magnesium oxide [id number] elemental magnesium Dose=____mg magnesium oxide (___mg elemental magnesium) Calcium
2 gm, 20 No Longer [place] Gluconate mL, Route: Active 2017 Medical IVPB, PRN, Center Dosing Weight 63.636, kg, PRN Abnormal Lab Result, For NON-ICU Patients Only., Start date: 01/26/18 20:30:00 CDT, Duration: 30 day, Stop date: 02/25/18 20:29:00 CDT
Notes : WASTE: F/P - Sink; E - Municipal Trash Bin potassium
2 pkt, No Longer [place] phosphate-sodium Route: PO, Active 2017 Medical phosphate 250 Drug Form: Center mg-280 mg-160 mg PDR/REC, oral powder for Dosing Weight reconstitution 63.636, kg, PRN, PRN Abnormal Lab Result, For NON-ICU Patients Only, Start date: 01/26/18 20:30:00 CDT, Duration: 30 day, Stop date: 02/25/18 20:29:00 CDT
Notes : (Same as: Phos-NaK) Each 1.5 gm pkt has 250mg phosphorous. Mix w/2.5oz water and stir. potassium
15 mmol, No Longer [place] phosphate 5 mL, Route: Active 2017 Medical IVPB, PRN, Center Dosing Weight 63.636, kg, PRN Abnormal Lab Result, For NON-ICU Patients Only., Start date: 01/26/18 20:30:00 CDT, Duration: 30 day, Stop date: 02/25/18 20:29:00 CDT
Notes : (Same as: K Phosphate.) 1 mMol phoshate has 1.47 mEq potassium Infuse over 4 hours sodium phosphate
15 mmol, No Longer [place] 5 mL, Route: Active 2018 [facility] IVPB, PRN, Center Dosing Weight 63.636, kg, PRN Abnormal Lab Result, For NON-ICU Patients Only., Start date: 01/26/18 20:30:00 CDT, Duration: 30 day, Stop date: 02/25/18 20:29:00 CDT Potassium
20 mEq, No Longer [place] Chloride 1 tab, Route: Active 2018 [facility] PO, Drug Center form: ERTAB, PRN, Dosing Weight 63.636, kg, PRN Abnormal Lab Result, For NON-ICU Patients Only, Start date: 01/26/18 20:30:00 CDT, Duration: 30 day, Stop date: 02/25/18 20:29:00 CDT
Notes : (Same as: K-Dur 20) "Do Not Crush" For patients unable to swallow tablet, dissolve in one half glass of water. Allow about 2 minutes for the tablets to disintegrate. Stir before giving to prepare slurry and administer. Please exclude Patients with feeding tube less than 14 [place] (Dobhoff, J-tube etc) and pediatric and patients. With food and full glass of water Insulin Lispro
3 unit, No Longer [facility] 0.03 mL, Active 2018 Medical Route: SUB-Q, Center Drug form: SOLN, Bedtime, Dosing Weight 63.636, kg, PRN Blood Glucose Results, Start date: 01/26/18 20:29:00 CDT, Duration: 30 day, Stop date: 02/25/18 20:28:00 CDT
Notes : (Same as: Humalog ) Roll in palms of hands gently; Do not shake `vigorously. "Single Patient Use Only " WASTE: F/P - Black; E - Municipal Trash Bin Stable for 28 days at room temperature. Expires in days from _Date Glucagon
1 mg, No Longer [facility] Route: IM, Active 2018 Medical Drug form: Center PDR/INJ, PRN, Dosing Weight 63.636, kg, PRN Blood Glucose Results, Start date: 01/26/18 20:29:00 CDT, Duration: 30 day, Stop date: 02/25/18 20:28:00 CDT Dextrose 50%
12.5 gm, No Longer [place] Syringe 25 mL, Route: Active 2017 Medical IVP, Drug Center Form: INJ, Dosing Weight 63.636, kg, PRN, PRN Blood Glucose Results, Start date: 01/26/18 20:29:00 CDT, Duration: 30 day, Stop date: 02/25/18 20:28:00 CDT Furosemide
20 mg, 2 Inactive [place] mL, Route: 2018 Medical IVP, Drug Center form: INJ, ONCE, Dosing Weight 63.636, kg, Start date: 01/26/18 20:25:00 CDT, Stop date: 01/26/18 20:25:00 CDT
Notes : (Same as: Lasix) Saline Flush
10 ml, No Longer [place] 0.9% Route: IVP, Active 2017 Medical Drug Form: Center INJ, Dosing Weight 63.636, kg, PRN, PRN Line Flush, Start date: 01/26/18 20:20:00 CDT, Duration: 30 day, Stop date: 02/25/18 20:19:00 CDT
Notes : (Same as: BD Posiflush) Tylenol
650 mg, No Longer [facility] 2 tab, Route: Active 2018 Medical PO, Drug Center form: TAB, Q6H, Dosing Weight 63.636, kg, PRN Pain Score 1-3, Start date: 01/26/18 19:54:00 CDT, Duration: 30 day, Stop date: 02/25/18 19:53:00 CDT
Notes : Do not exceed 4 gm/day. (Same as: Tylenol) 1.5 ML Insulin
14 No Longer [facility] Glargine 300 units, SUB-Q, Active 2017 Medical UNT/ML Prefilled Bedtime, 0 Center Syringe [Toujeo] Refill(s) glimepiride 4 mg
4 mg=1 Active [facility] oral tablet tab, PO, BID, 2018 Medical 0 Refill(s) Center Metformin
500 mg, Active [facility] PO, BID, 0 2018 Medical Refill(s) Center Lorazepam 2 MG
2 mg=1 No Longer [facility] Oral Tablet tab, PO, Active 2018 Medical [Ativan] ONCE, take 1 Center tab 10 minutes prior to [employer] and again during if needed, # 2 tab, 0 Refill(s) Furosemide 40 MG
40 mg=1 No Longer [facility] Oral Tablet tab, PO, BID, Active 2017 Medical [Lasix] # 60 tab, 3 Center Refill(s), Pharmacy: [facility]/pharmacy #[id number] potassium
20 mEq=1 No Longer [facility] chloride 20 mEq tab, PO, Active 2017 Medical oral tablet, Q12H, # 60 Center extended release tab, 3 Refill(s), Pharmacy: [facility]/pharmacy #[id number] Furosemide 40 MG
40 mg, 1 Inactive [facility] Oral Tablet tab, Route: 2018 Medical [Lasix] PO, Drug Center form: TAB, BID, Dosing Weight 64.091, kg, Start date: 01/05/18 9:23:00 CDT, Duration: 30 day, Stop date: 02/04/18 9:00:00 CDT
Notes : (Same as: Lasix) May cause GI upset. Give with food or milk. Ambien
5 mg, 1 No Longer [facility] tab, Route: Active 2017 Medical PO, Drug Center form: TAB, Bedtime, Dosing Weight 64.091, kg, PRN Insomnia, Start date: 01/03/18 22:28:00 [employer], Duration: 30 day, Stop date: 02/02/18 22:27:00 CDT
Notes : (Same As: Ambien) potassium
20 mEq, No Longer [place] chloride 20 mEq 1 tab, Route: Active 2018 Medical oral tablet, PO, Drug Center extended release form: ERTAB, Q12H, Dosing Weight 64.091, kg, Start date: 01/03/18 21:00:00 [employer], Duration: 30 day, Stop date: 02/02/18 9:00:00 CDT
Notes : (Same as: K-Dur 20) "Do Not Crush" With food and full glass of water Potassium
10 mEq, No Longer [place] Chloride 50 mL, Route: Active 2018 [facility] IVPB, Drug [place] form: INJ, PRN, Dosing Weight 64.091, kg, PRN Abnormal Lab Result, For NON-ICU Patients Only, Start date: 01/03/18 13:47:00 [employer], Duration: 30 day, Stop date: 02/02/18 14:46:00 CDT
Notes : (Same as: KCL) Infuse over 2 hours. potassium
2 pkt, No Longer [facility] phosphate-sodium Route: PO, Active 2017 Medical phosphate 250 Drug Form: [place] mg-280 mg-160 mg PDR/REC, oral powder for Dosing Weight reconstitution 64.091, kg, PRN, PRN Abnormal Lab Result, For NON-ICU Patients Only, Start date: 01/03/18 13:47:00 [employer], Duration: 30 day, Stop date: 02/02/18 14:46:00 CDT
Notes : (Same as: Phos-NaK) Each 1.5 gm pkt has 250mg phosphorous. Mix w/2.5oz water and stir. potassium
15 mmol, No Longer [place] phosphate 5 mL, Route: Active 2018 Medical IVPB, PRN, Center Dosing Weight 64.091, kg, PRN Abnormal Lab Result, For NON-ICU Patients Only., Start date: 01/03/18 13:47:00 [employer], Duration: 30 day, Stop date: 02/02/18 14:46:00 CDT
Notes : (Same as: K Phosphate.) 1 mMol phoshate has 1.47 mEq potassium Infuse over 4 hours Calcium
2 gm, 20 No Longer [place] Gluconate mL, Route: Active 2018 Medical IVPB, PRN, Center Dosing Weight 64.091, kg, PRN Abnormal Lab Result, For NON-ICU Patients Only., Start date: 01/03/18 13:47:00 [employer], Duration: 30 day, Stop date: 02/02/18 14:46:00 CDT
Notes : WASTE: F/P - Sink; E - Municipal Trash Bin Magnesium Oxide
800 mg, No Longer [place] 2 tab, Route: Active 2018 Medical PO, Drug Center form: TAB, PRN, Dosing Weight 64.091, kg, PRN Abnormal Lab Result, For NON-ICU Patients Only., Start date: 01/03/18 13:47:00 [employer], Duration: 30 day, Stop date: 02/02/18 14:46:00 CDT
Notes : (Same as: Mag-Ox 400) Magnesium oxide [id number] elemental magnesium Dose=____mg magnesium oxide (___mg elemental magnesium) Magnesium
1 gm, No Longer [place] Sulfate 100 mL, Active 2018 Medical Route: IVPB, Center Drug form: INJ, PRN, Dosing Weight 64.091, kg, PRN Abnormal Lab Result, For NON-ICU Patients Only., Start date: 01/03/18 13:47:00 [employer], Duration: 30 day, Stop date: 02/02/18 14:46:00 CDT
Notes : WASTE: F/P - Sink; E - Municipal Trash Bin sodium phosphate
15 mmol, No Longer [place] 5 mL, Route: Active 2018 Medical IVPB, PRN, Center Dosing Weight 64.091, kg, PRN Abnormal Lab Result, For NON-ICU Patients Only., Start date: 01/03/18 13:47:00 [employer], Duration: 30 day, Stop date: 02/02/18 14:46:00 CDT Miralax
17 gm, 1 No Longer [place] pkt, Route: Active 2018 Medical PO, Drug Center form: PWDR, BID, Dosing Weight 64.091, kg, Start date: 01/02/18 17:33:00 [employer], Duration: 30 day, Stop date: 02/01/18 17:00:00 CDT
Notes : Dissolve in 8 oz of water or juice. (Same as: Miralax) Calcium
1,000 No Longer [place] Carbonate 500 MG mg, 2 tab, Active 2018 Medical Chewable Tablet Route: PO, Center Drug form: CHEWTAB, PRN, Dosing Weight 64.091, kg, PRN Abnormal Lab Result, FOR ICU USE ONLY, Start date: 01/01/18 22:59:00 [employer], Duration: 30 day, Stop date: 01/31/18 23:58:00 CDT
Notes : (Same As: Tums) Calcium Carbonate 500 ro=467 mg elemental calcium Dose= mg calcium carbonate ( mg elemental calcium) potassium
2 pkt, No Longer [place] phosphate-sodium Route: PO, Active 2018 Medical phosphate 250 Drug Form: Center mg-280 mg-160 mg PDR/REC, oral powder for Dosing Weight reconstitution 64.091, kg, PRN, PRN Abnormal Lab Result, FOR ICU USE ONLY, Start date: 01/01/18 22:59:00 [employer], Duration: 30 day, Stop date: 01/31/18 23:58:00 CDT
Notes : (Same as: Phos-NaK) Each 1.5 gm pkt has 250mg phosphorous. Mix w/2.5oz water and stir. Calcium
1 gm, 10 No Longer [place] Gluconate mL, Route: Active 2018 Medical IVPB, PRN, Center Dosing Weight 64.091, kg, PRN Abnormal Lab Result, Start date: 01/01/18 22:59:00 [employer], Duration: 30 day, Stop date: 01/31/18 23:58:00 CDT, FOR ICU USE ONLY
Note s: WASTE: F/P - Sink; E - [employer] Trash Bin Magnesium
2 gm, 50 No Longer [place] Sulfate mL, Route: Active 2018 Medical IVPB, Drug Center form: INJ, PRN, Dosing Weight 64.091, kg, PRN Abnormal Lab Result, Start date: 01/01/18 22:59:00 [employer], Duration: 30 day, Stop date: 01/31/18 23:58:00 CDT, FOR ICU USE ONLY
Note s: WASTE: F/P - Sink; E - [employer] Trash Bin Magnesium Oxide
800 mg, No Longer [place] 2 tab, Route: Active 2018 Medical PO, Drug Center form: TAB, PRN, Dosing Weight 64.091, kg, PRN Abnormal Lab Result, FOR ICU USE ONLY, Start date: 01/01/18 22:59:00 [employer], Duration: 30 day, Stop date: 01/31/18 23:58:00 CDT
Notes : (Same as: Mag-Ox 400) Magnesium oxide [id number] elemental magnesium Dose=____mg magnesium oxide (___mg elemental magnesium) sodium phosphate
15 mmol, No Longer [place] 5 mL, Route: Active 2018 Medical IVPB, PRN, Center Dosing Weight 64.091, kg, PRN Abnormal Lab Result, Start date: 01/01/18 22:59:00 [employer], Duration: 30 day, Stop date: 01/31/18 23:58:00 CDT, FOR ICU USE ONLY potassium
30 mmol, No Longer [place] phosphate 10 mL, Route: Active 2018 Medical IVPB, PRN, Center Dosing Weight 64.091, kg, PRN Abnormal Lab Result, Start date: 01/01/18 22:59:00 [employer], Duration: 30 day, Stop date: 01/31/18 23:58:00 CDT, FOR ICU USE ONLY
N otes: (Same as: K Phosphate.) 1 mMol phoshate has 1.47 mEq potassium Infuse over 4 hours Potassium
20 mEq, No Longer [place] Chloride 100 mL, Active 2018 Medical Route: IVPB, Center Drug form: INJ, PRN, Dosing Weight 64.091, kg, PRN Abnormal Lab Result, Via central line, Start date: 01/01/18 22:59:00 [employer], Duration: 30 day, Stop date: 01/31/18 23:58:00 CDT, FOR ICU USE ONLY
Note s: (Same as: KCL) Infuse no faster than 10 mEq/hr if given peripherally. Insulin Glargine
11 unit, No Longer [place] 100 UNT/ML 0.11 mL, Active 2017 Medical Injectable Route: SUB-Q, Center Solution Drug form: SOLN, Bedtime, Dosing Weight 64.091, kg, Start date: 01/01/18 21:00:00 [employer], Duration: 30 day, Stop date: 01/30/18 21:00:00 CDT
Notes : Same as: Lantus) Do not hold insulin without contacting prescriber WASTE: F/P - Black; E - Municipal Trash Bin heparin sodium,
5,000 No Longer [place] porcine 2500 unit, 1 mL, Active 2017 Medical UNT/ML Route: SUB-Q, Center Injectable Drug form: Solution INJ, Q12H, Dosing Weight 64.091, kg, Start date: 01/01/18 21:00:00 [employer], Duration: 30 day, Stop date: 01/31/18 9:00:00 CDT
Notes : porcine heparin Lactulose 667
10 gm, Inactive [place] MG/ML Oral 15 mL, Route: 2017 Medical Solution PO, Drug Center form: SYRP, ONCE, Dosing Weight 64.091, kg, Start date: 01/01/18 17:33:00 [employer], Stop date: 01/01/18 17:33:00 [employer]
Notes : (Same as:Chronulac) Docusate Sodium
1 tab, No Longer [place] 50 MG / Route: PO, Active 2017 Medical sennosides, ASSISTED Drug Form: Center 8.6 MG Oral TAB, Dosing Tablet Weight 64.091, kg, BID, Start date: 01/01/18 17:31:00 [employer], Duration: 30 day, Stop date: 01/31/18 17:00:00 CDT
Notes : (Same as Senokot-S) Equiv. to Indira-Colace. Dextrose 50%
25 gm, No Longer [facility] Syringe 50 mL, Route: Active 2017 Medical IVP, Drug Center Form: INJ, Dosing Weight 64.091, kg, PRN, PRN Blood Glucose Results, Start date: 01/01/18 15:43:00 [employer], Duration: 30 day, Stop date: 01/31/18 16:42:00 CDT Glucagon
1 mg, No Longer [place] Route: IM, Active 2017 Medical Drug form: Center PDR/INJ, PRN, Dosing Weight 64.091, kg, PRN Blood Glucose Results, Start date: 01/01/18 15:43:00 [employer], Duration: 30 day, Stop date: 01/31/18 16:42:00 CDT Insulin Lispro
2 unit, No Longer [place] 0.02 mL, Active 2017 Medical Route: SUB-Q, [place] Drug form: SOLN, TID-Before Meals, Dosing Weight 64.091, kg, PRN Blood Glucose Results, Start date: 01/01/18 15:43:00 [employer], Duration: 30 day, Stop date: 01/31/18 15:42:00 CDT
Notes : (Same as: Humalog ) Roll in palms of hands gently; Do not shake `vigorously. "Single Patient Use Only " WASTE: F/P - Black; E - Municipal Trash Bin Stable for 28 days at room temperature. Expires in days from _Date NIFEdipine 30 mg
30 mg, 1 No Longer [place] oral tablet, tab, Route: Active 2018 Medical extended release PO, Drug Center form: ERTAB, Daily, Dosing Weight 64.091, kg, Start date: 01/01/18 9:00:00 [employer], Duration: 30 day, Stop date: 01/30/18 9:00:00 CDT
Notes : (Same as: Adalat CC, Procardia XL) Give on empty stomach. Take 1 hour before or 2 hours after meal; "Avoid grapefruit and grapefruit juice". Do not crush duloxetine
30 mg, 1 No Longer [place] cap, Route: Active 2018 Medical PO, Drug Center form: DRC, Daily, Dosing Weight 64.091, kg, Start date: 01/01/18 9:00:00 [employer], Duration: 30 day, Stop date: 01/30/18 9:00:00 CDT
Notes : (Same as: Cymbalta) (Do Not Crush) clopidogrel
75 mg, 1 No Longer [facility] tab, Route: Active 2018 Medical PO, Drug Center form: TAB, Daily, Dosing Weight 64.091, kg, Start date: 01/01/18 9:00:00 [employer], Duration: 30 day, Stop date: 01/30/18 9:00:00 CDT
Notes : (Same As: Plavix) carvedilol
12.5 mg, No Longer [facility] 1 tab, Route: Active 2018 Medical PO, Drug Center form: TAB, BID, Dosing Weight 64.091, kg, Start date: 01/01/18 9:00:00 [employer], Duration: 30 day, Stop date: 01/30/18 17:00:00 CDT
Notes : Give with food. (Same As: Coreg) Clonidine
0.1 mg, No Longer [facility] Hydrochloride 1 tab, Route: Active 2018 Medical 0.1 MG Oral PO, Drug Center Tablet form: TAB, BID, Dosing Weight 64.091, kg, Start date: 01/01/18 9:00:00 [employer], Duration: 30 day, Stop date: 01/30/18 17:00:00 CDT
Notes : (Same As: Catapres) Aspirin 81 MG
81 mg, 1 No Longer [facility] Chewable Tablet tab, Route: Active 2018 Medical PO, Drug Center form: CHEWTAB, Daily, Dosing Weight 64.091, kg, Start date: 01/01/18 9:00:00 [employer], Duration: 30 day, Stop date: 01/30/18 9:00:00 CDT
Notes : Take with food. pantoprazole
40 mg, 1 No Longer [facility] tab, Route: Active 2018 Medical PO, Drug Center form: ECTAB, Before Breakfast, Dosing Weight 64.091, kg, Start date: 01/01/18 7:30:00 [employer], Duration: 30 day, Stop date: 01/30/18 7:30:00 CDT
Notes : Tablet should not be chewed or crushed. (Same as: Protonix) valacyclovir
500 mg, No Longer [facility] 1 tab, Route: Active 2017 Medical PO, Drug Center form: TAB, Q24H, Dosing Weight 64.091, kg, Start date: 01/01/18 1:00:00 [employer], Duration: 30 day, Stop date: 01/29/18 22:30:00 CDT
Notes : (Same As: Valtrex) Lasix
40 mg, 4 No Longer [facility] mL, Route: Active 2017 Medical IVP, Drug Center form: INJ, Q12H, Dosing Weight 64.091, kg, Start date: 01/01/18 0:55:00 [employer], Duration: 30 day, Stop date: 01/30/18 21:00:00 CDT
Notes : (Same as: Lasix) MEDICATION WASTE Product Size: 40 mg Product Wasted: ___ mg Acetaminophen
650 mg, No Longer [facility] 325 MG Oral 2 tab, Route: Active 2017 Medical Tablet PO, Drug Center form: TAB, Q6H, Dosing Weight 64.091, kg, PRN Pain 1-3/Temp > 100.4 F, Start date: 01/01/18 0:54:00 [employer], Duration: 30 day, Stop date: 01/31/18 0:53:00 CDT
No shabbir: Do not exceed 4 gm/day. (Same as: Tylenol) Aspirin
81 mg, 1 Inactive [facility] tab, Route: 2018 Medical PO, Drug Center form: CHEWTAB, Daily, Dosing Weight 66.818, kg, Start date: 11/29/17 9:00:00 [employer], Duration: 30 day, Stop date: 12/28/17 9:00:00 [employer]
Notes : Take with food. Plavix
75 mg, 1 Inactive [facility] tab, Route: 2018 Medical PO, Drug Center form: TAB, Daily, Dosing Weight 66.818, kg, Start date: 11/29/17 9:00:00 [employer], Duration: 30 day, Stop date: 12/28/17 9:00:00 [employer]
Notes : (Same As: Plavix) valACYclovir 500
500 mg=1 No Longer [place] mg oral tablet tab, PO, Active 2018 Medical Q24H, X 90 Center day, # 90 tab, 0 Refill(s) levofloxacin 250
250 mg=1 No Longer [place] mg oral tablet tab, PO, Active 2017 Medical [id number], X 90 Center day, # 90 tab, 0 Refill(s) valACYclovir 500
500 mg=1 Inactive [place] mg oral tablet tab, PO, 2018 Medical Q24H, 0 Center Refill(s) levofloxacin 250
250 mg=1 Inactive [place] mg oral tablet tab, PO, 2018 Medical [id number], 0 Center Refill(s) Furosemide 20 MG
20 mg=1 No Longer [place] Oral Tablet tab, PO, Active 2018 Medical [Lasix] Daily, # 90 Center tab, 0 Refill(s) fluconazole 100
100 mg=1 No Longer [place] mg oral tablet tab, PO, Active 2018 Medical [id number], X 90 Center day, # 90 tab, 0 Refill(s) Acetaminophen
650 mg=2 No Longer [place] 325 MG Oral tab, PO, Q6H, Active 2017 Medical Tablet PRN Pain Center 1-3/Temp > 100.4 F, 0 Refill(s) pantoprazole 40
40 mg=1 No Longer [place] mg oral enteric tab, PO, Active 2017 Medical coated tablet Before Center Breakfast, 0 Refill(s) NIFEdipine 30 mg
30 mg=1 No Longer [place] oral tablet, tab, PO, Active 2018 Medical extended release Daily, 0 Center Refill(s) Insulin Glargine
14 unit, No Longer [place] 100 UNT/ML SUB-Q, Active 2017 Medical Injectable Bedtime, 0 Center Solution Refill(s) DULoxetine 30 mg
30 mg=1 No Longer [facility] oral delayed cap, PO, Active 2017 Medical release capsule Daily, 0 Center Refill(s) clopidogrel 75
75 mg=1 No Longer [facility] mg oral tablet tab, PO, Active 2017 Medical Daily, 0 Center Refill(s) Clonidine
0.1 mg=1 No Longer [facility] Hydrochloride tab, PO, BID, Active 2017 Medical 0.1 MG Oral 0 Refill(s) Center Tablet carvedilol 12.5
6.25 No Longer [facility] mg oral tablet mg=0.5 tab, Active 2017 Medical PO, BID, 0 Center Refill(s) Aspirin 81 MG
81 mg=1 No Longer [facility] Chewable Tablet tab, PO, Active 2017 Medical Daily, 0 Center Refill(s) Midazolam
Route: Inactive [facility] IV, ONCE, 2017 Medical Dosing Weight Center 66.818, kg, Start date: 11/28/17 8:30:00 [employer], Stop date: 11/28/17 8:30:00 [employer] Fentanyl
25 Inactive [place] microgram, 2017 Medical Route: IV, Center ONCE, Dosing Weight 66.818, kg, Start date: 11/28/17 8:30:00 [employer], Stop date: 11/28/17 8:30:00 [employer] Midazolam
1 mg, Inactive [facility] Route: IVP, 2017 Medical Drug form: Center INJ, ONCE, Dosing Weight 66.818, kg, Start date: 11/28/17 8:10:00 [employer], Stop date: 11/28/17 8:10:00 [employer] Fentanyl
50 Inactive [facility] microgram, 2018 Medical Route: IVP, [place] Drug form: INJ, ONCE, Dosing Weight 66.818, kg, Start date: 11/28/17 8:10:00 [employer], Stop date: 11/28/17 8:10:00 [employer] potassium
2 pkt, No Longer [facility] phosphate-sodium Route: PO, Active 2018 Medical phosphate 250 Drug Form: Center mg-280 mg-160 mg PDR/REC, oral powder for Dosing Weight reconstitution 66.818, kg, PRN, PRN Abnormal Lab Result, For NON-ICU Patients Only, Start date: 11/28/17 5:41:00 [employer], Duration: 30 day, Stop date: 12/28/17 5:40:00 [employer]
Notes : (Same as: Phos-NaK) Each 1.5 gm pkt has 250mg phosphorous. Mix w/2.5oz water and stir. Potassium
20 mEq, No Longer [place] Chloride 15 mL, Route: Active 2018 [facility] form: LIQ, PRN, Dosing Weight 66.818, kg, PRN Abnormal Lab Result, For NON-ICU Patients Only, Start date: 11/28/17 5:41:00 [employer], Duration: 30 day, Stop date: 12/28/17 5:40:00 [employer]
Notes : (Same as: Potassium Chloride) sodium phosphate
15 mmol, No Longer [place] 5 mL, Route: Active 2018 Medical IVPB, PRN, Center Dosing Weight 66.818, kg, PRN Abnormal Lab Result, For NON-ICU Patients Only., Start date: 11/28/17 5:41:00 [employer], Duration: 30 day, Stop date: 12/28/17 5:40:00 [employer] potassium
15 mmol, No Longer [place] phosphate 5 mL, Route: Active 2018 Medical IVPB, PRN, Center Dosing Weight 66.818, kg, PRN Abnormal Lab Result, For NON-ICU Patients Only., Start date: 11/28/17 5:41:00 [employer], Duration: 30 day, Stop date: 12/28/17 5:40:00 [employer]
Notes : (Same as: K Phosphate.) 1 mMol phoshate has 1.47 mEq potassium Infuse over 4 hours Magnesium
1 gm, No Longer [place] Sulfate 100 mL, Active 2018 Medical Route: IVPB, Center Drug form: INJ, PRN, Dosing Weight 66.818, kg, PRN Abnormal Lab Result, For NON-ICU Patients Only., Start date: 11/28/17 5:41:00 [employer], Duration: 30 day, Stop date: 12/28/17 5:40:00 [employer]
Notes : WASTE: F/P - Sink; E - Municipal Trash Bin Calcium
3 gm, 30 No Longer [place] Gluconate mL, Route: Active 2017 Medical IVPB, PRN, Center Dosing Weight 66.818, kg, PRN Abnormal Lab Result, For NON-ICU Patients Only., Start date: 11/28/17 5:41:00 [employer], Duration: 30 day, Stop date: 12/28/17 5:40:00 [employer]
Notes : WASTE: F/P - Sink; E - Municipal Trash Bin Magnesium Oxide
800 mg, No Longer [place] 2 tab, Route: Active 2017 Medical PO, Drug Center form: TAB, PRN, Dosing Weight 66.818, kg, PRN Abnormal Lab Result, For NON-ICU Patients Only., Start date: 11/28/17 5:41:00 [employer], Duration: 30 day, Stop date: 12/28/17 5:40:00 [employer]
Notes : (Same as: Mag-Ox 400) Magnesium oxide [id number] elemental magnesium Dose=____mg magnesium oxide (___mg elemental magnesium) Rasburicase
6 mg, Inactive [place] Route: IV, 2018 Medical ONCE, Dosing Center Weight 66.818, kg, Start date: 11/27/17 9:41:00 [employer], Stop date: 11/27/17 9:41:00 [employer]
Notes : Restricted Medication: All Doses of Rasburicase should be interchanged to Rasburicase 6 mg x1 dose. A second dose may be given for patients unresponsive to 1 dose. (Same as:Elitek) MEDICATION WASTE Product Size: 1.5 mg Product Wasted: __0_ mg capsaicin
1 appl, No Longer [place] topical 0.025% Route: TOP, Active 2017 Medical cream QID, Drug Center form: CRM, Start date: 11/26/17 9:00:00 [employer], Duration: 30 day, Stop date: 12/25/17 21:00:00 [employer]
Notes : (Same As: Zostrix) Furosemide 40 MG
40 mg, 1 No Longer [place] Oral Tablet tab, Route: Active 2018 Medical [Lasix] PO, Drug Center form: TAB, Daily, Dosing Weight 69.909, kg, Start date: 11/26/17 9:00:00 [employer], Duration: 30 day, Stop date: 12/25/17 9:00:00 [employer]
Notes : (Same as: Lasix) May cause GI upset. Give with food or milk. heparin additive
500 mL, No Longer [place] 25,000 unit [14 Rate: 16.29 Active 2018 Medical unit/kg/hr] + ml/hr, Infuse Center Premix Diluent over: 30.7 Sodium Chloride hr, Route: 0.45% 500 mL IV, Dosing Weight 58.17 kg, Total Volume: 500 mL, Start date: 11/26/17 7:16:00 [employer], Duration: 30 day, Stop date: 12/26/17 7:15:00 [employer], 1.62, m2
Notes: Total Concentration =50 unit/ ml Total hsetpa=096 ml Send Med Request 2 hours prior to next bag Diclofenac
2 gm, No Longer [facility] Sodium 0.01 Route: TOP, Active 2017 Medical MG/MG Topical Drug form: Center Gel [Voltaren] GEL, QID, Dosing Weight 66.818, kg, Start date: 11/25/17 21:00:00 [employer], Duration: 30 day, Stop date: 12/25/17 17:00:00 [employer] Dulcolax
10 mg, 1 No Longer [facility] Laxative supp, Route: Active 2018 Medical [place], Drug Center form: SUPP, Daily, Dosing Weight 66.818, kg, PRN Constipation, Start date: 11/25/17 10:46:00 [employer], Duration: 30 day, Stop date: 12/25/17 10:45:00 [employer]
Notes : (Same As: Dulcolax, Bisco-Lax) Docusate Sodium
100 mg, No Longer [place] 100 MG Oral 1 cap, Route: Active 2018 Medical Capsule PO, Drug Center form: CAP, BID, Dosing Weight 69.909, kg, Start date: 11/24/17 17:00:00 [employer], Duration: 30 day, Stop date: 12/24/17 9:00:00 [employer]
Notes : (Same as: Colace) (Do Not Crush) Lorazepam
1 mg, Inactive [facility] 0.5 mL, 2017 Medical Route: IVP, Center Drug form: INJ, ONCE, Dosing Weight 69.909, kg, PRN Anxiety, Start date: 11/24/17 11:46:00 [employer]
Notes : (Same as: Ativan) Alprazolam 0.25
0.25 mg, Inactive [facility] MG Oral Tablet 1 tab, Route: 2018 Medical PO, Drug Center form: TAB, ONCE, Dosing Weight 69.909, kg, Start date: 11/24/17 11:46:00 [employer], Stop date: 11/24/17 11:46:00 [employer]
Notes : With food or milk (Same as: Xanax) Insulin Lispro
3 unit, No Longer [facility] 0.03 mL, Active 2017 Medical Route: SUB-Q, Center Drug form: SOLN, TID-Before Meals, Dosing Weight 69.909, kg, Start date: 11/24/17 11:30:00 [employer], Duration: 30 day, Stop date: 12/24/17 7:30:00 [employer]
Notes : (Same as: Humalog ) Roll in palms of hands gently; Do not shake `vigorously. "Single Patient Use Only " WASTE: F/P - Black; E - Municipal Trash Bin Stable for 28 days at room temperature. Expires in days from _Date Miralax
17 gm, 1 No Longer [facility] pkt, Route: Active 2017 Medical PO, Drug Center form: PWDR, Daily, Dosing Weight 69.909, kg, Start date: 11/24/17 10:42:00 [employer], Duration: 30 day, Stop date: 12/24/17 9:00:00 [employer]
Notes : Dissolve in 8 oz of water or juice. (Same as: Miralax) Acetaminophen
1 tab, No Longer [place] 300 MG / Codeine Route: PO, Active 2018 Medical Phosphate 30 MG Drug Form: Center Oral Tablet TAB, Dosing [Tylenol with Weight Codeine #3] 69.909, kg, Q8H, PRN Pain Score 1-3, Start date: 11/24/17 1:10:00 [employer], Duration: 30 day, Stop date: 12/24/17 1:09:00 [employer]
Notes : Do not exceed 4gm/day of acetaminophen . (Same as: Tylenol with Codeine # 3) Melatonin 3 MG
3 mg, 1 No Longer [place] Extended Release tab, Route: Active 2018 Medical Tablet PO, Drug Center Form: TAB, Dosing Weight 69.909, kg, Bedtime, PRN as needed for insomnia, Start date: 11/23/17 20:51:00 [employer], Duration: 30 day, Stop date: 12/23/17 20:50:00 [employer]
No shabbir: (Same as: Melatonin) Furosemide 40 MG
40 mg, 1 No Longer [facility] Oral Tablet tab, Route: Active 2018 Medical [Lasix] PO, Drug Center form: TAB, BID, Dosing Weight 69.909, kg, Start date: 11/23/17 9:00:00 [employer], Duration: 30 day, Stop date: 12/22/17 17:00:00 [employer]
Notes : (Same as: Lasix) May cause GI upset. Give with food or milk. Simethicone
80 mg, 1 No Longer [facility] tab, Route: Active 2018 Medical CHEW, Drug Center form: CHEWTAB, TID, Dosing Weight 69.909, kg, PRN Gas, Start date: 11/22/17 16:31:00 [employer], Duration: 30 day, Stop date: 12/22/17 16:30:00 [employer]
Notes : (Same as: Mylicon) Lasix
20 mg, 2 Inactive [place] mL, Route: 2018 Medical IV, Drug Center form: INJ, ONCE, Dosing Weight 69.909, kg, Start date: 11/22/17 1:33:00 [employer], Stop date: 11/22/17 1:33:00 [employer]
Notes : (Same as: Lasix) Lasix
40 mg, 4 Inactive [facility] mL, Route: 2018 Medical IVP, Drug Center form: INJ, Q8H, Dosing Weight 69.909, kg, Start date: 11/21/17 20:00:00 [employer], Duration: 30 day, Stop date: 12/21/17 12:00:00 [employer]
Notes : (Same as: Lasix) MEDICATION WASTE Product Size: 40 mg Product Wasted: ___ mg Levaquin
250 mg, No Longer [facility] 1 tab, Route: Active 2018 Medical PO, Drug Center form: TAB, [id number], Dosing Weight 69.909, kg, Start date: 11/21/17 16:00:00 [employer], Duration: 10 day, Stop date: 11/30/17 16:00:00 [employer], ABX Indication: Other (specify in Comments) Furosemide
40 mg, 4 Inactive [facility] mL, Route: 2018 Medical IVP, Drug Center form: INJ, ONCE, Dosing Weight 69.909, kg, Start date: 11/21/17 9:27:00 [employer], Stop date: 11/21/17 9:27:00 [employer]
Notes : (Same as: Lasix) MEDICATION WASTE Product Size: 40 mg Product Wasted: ___ mg Aspirin 81 MG
81 mg, 1 No Longer [facility] Enteric Coated tab, Route: Active 2018 Medical Tablet PO, Drug Center form: ECTAB, Daily, Dosing Weight 69.909, kg, Start date: 11/21/17 9:00:00 [employer], Duration: 30 day, Stop date: 12/20/17 9:00:00 [employer]
Notes : Do not crush or chew. (Same As: Ecotrin) NIFEdipine 30 mg
30 mg, 1 No Longer [facility] oral tablet, tab, Route: Active 2018 Medical extended release PO, Drug Center form: ERTAB, Daily, Dosing Weight 69.909, kg, Start date: 11/21/17 9:00:00 [employer], Duration: 30 day, Stop date: 12/20/17 12:00:00 [employer]
Notes : (Same as: Adalat CC, Procardia XL) Give on empty stomach. Take 1 hour before or 2 hours after meal; "Avoid grapefruit and grapefruit juice". Do not crush Lisinopril
40 mg, 2 No Longer [facility] tab, Route: Active 2018 Medical PO, Drug Center form: TAB, Daily, Dosing Weight 69.909, kg, Start date: 11/21/17 9:00:00 [employer], Duration: 30 day, Stop date: 12/20/17 9:00:00 [employer]
Notes : (Same as: Prinivil, Zestril) duloxetine
30 mg, 1 No Longer [facility] cap, Route: Active 2018 Medical PO, Drug Center form: DRC, Daily, Dosing Weight 69.909, kg, Start date: 11/21/17 9:00:00 [employer], Duration: 30 day, Stop date: 12/20/17 9:00:00 [employer]
Notes : (Same as: Cymbalta) (Do Not Crush) clopidogrel
75 mg, 1 No Longer [facility] tab, Route: Active 2018 Medical PO, Drug Center form: TAB, Daily, Dosing Weight 69.909, kg, Start date: 11/21/17 9:00:00 [employer], Duration: 30 day, Stop date: 12/20/17 9:00:00 [employer]
Notes : (Same As: Plavix) pantoprazole
40 mg, 1 No Longer [facility] tab, Route: Active 2018 Medical PO, Drug Center form: ECTAB, Before Breakfast, Dosing Weight 69.909, kg, Start date: 11/21/17 7:30:00 [employer], Duration: 30 day, Stop date: 12/20/17 7:30:00 [employer]
Notes : Tablet should not be chewed or crushed. (Same as: Protonix) Magnesium
2 gm, 50 Inactive [place] Sulfate mL, Route: 2018 Medical IVPB, Drug Center form: INJ, Q2H, Dosing Weight 69.909, kg, Total dose=4 gm, Start date: 11/21/17 2:00:00 [employer], Duration: 2 doses or times, Stop date: 11/21/17 4:00:00 [employer]
No shabbir: WASTE: F/P - Sink; E - Municipal Trash Bin heparin sodium,
5,000 No Longer [facility] porcine 2500 unit, 1 mL, Active 2017 Medical UNT/ML Route: SUB-Q, [place] Injectable Drug form: Solution INJ, Q8H-06, Dosing Weight 69.909, kg, Start date: 11/20/17 22:00:00 [employer], Duration: 30 day, Stop date: 12/20/17 14:00:00 [employer]
Notes : porcine heparin 1.5 ML Insulin
14 unit, Inactive [facility] Glargine 300 Route: SUB-Q, 2017 [facility] UNT/ML Prefilled Drug form: [place] Syringe [Toujeo] SOLN, Bedtime, Dosing Weight 69.909, kg, Start date: 11/20/17 21:00:00 [employer], Duration: 30 day, Stop date: 12/19/17 21:00:00 [employer] insulin glargine
11 unit, No Longer [facility] 0.11 mL, Active 2017 Medical Route: SUB-Q, [place] Drug form: SOLN, Bedtime, Start date: 11/20/17 21:00:00 [employer], Duration: 30 day, Stop date: 12/19/17 21:00:00 [employer]
Notes : (Same as: Lantus) Do not hold insulin without contacting prescriber WASTE: F/P - Black; E - Municipal Trash Bin "single patient use only" Diuril
250 mg, No Longer [facility] Route: IV, Active 2017 [facility] Q8Hnow, [place] Dosing Weight 69.909, kg, Start date: 11/20/17 18:00:00 [employer], Duration: 2 doses or times, Stop date: 11/21/17 6:30:00 [employer]
Notes : (Same As: Diuril Sodium) carvedilol
12.5 mg, No Longer [place] 1 tab, Route: Active 2018 Medical PO, Drug Center form: TAB, BID, Dosing Weight 69.909, kg, Start date: 11/20/17 17:00:00 [employer], Duration: 30 day, Stop date: 12/20/17 9:00:00 [employer]
Notes : Give with food. (Same As: Coreg) Valtrex
500 mg, No Longer [place] 1 tab, Route: Active 2018 Medical PO, Drug Center form: TAB, Q24H, Start date: 11/20/17 16:00:00 [employer], Duration: 30 day, Stop date: 12/19/17 16:00:00 [employer]
Notes : (Same As: Valtrex) famciclovir 500
500 mg, Inactive [facility] MG Oral Tablet 1 tab, Route: 2018 Medical [Famvir] PO, Drug Center form: TAB, Q8H, Dosing Weight 69.909, kg, Start date: 11/20/17 16:00:00 [employer], Duration: 30 day, Stop date: 12/20/17 8:00:00 [employer] Levaquin
500 mg, Inactive [facility] 100 mL, 2017 Medical Route: IVPB, [place] Drug form: SOLN, ONCE, Dosing Weight 69.909, kg, Start date: 11/20/17 14:43:00 [employer], Stop date: 11/20/17 14:43:00 [employer], ABX Indication: Other (specify in Comments)< br/>Notes: (Same as:Levaquin) Levaquin
500 mg, Inactive [facility] Route: IVPB, 2018 Medical Drug form: Center SOLN, [id number], Dosing Weight 69.909, kg, Start date: 11/20/17 14:00:00 [employer], Duration: 10 day, Stop date: 11/29/17 14:00:00 [employer], ABX Indication: Other (specify in Comments) Diflucan
100 mg, No Longer [facility] 1 tab, Route: Active 2018 Medical PO, Drug Center form: TAB, [id number], Dosing Weight 69.909, kg, Start date: 11/20/17 14:00:00 [employer], Duration: 30 day, Stop date: 12/19/17 14:00:00 [employer]
Notes : (Same as: Diflucan) Furosemide
100 mg, No Longer [place] 10 mL, Rate: Active 2018 Medical 10 mg/hour, Center Dosing Weight 69.909, kg, Route: IV, Total Volume: 100, Start Date: 11/20/17 13:33:00 [employer], Duration: 30 day, Stop date: 12/20/17 13:32:00 [employer], Replace Every: 24 hr, continuous
Notes: (Same as: Lasix) MEDICATION WASTE Product Size: 100 mg Product Wasted: ___ mg Clonidine
0.1 mg, No Longer [facility] Hydrochloride 1 tab, Route: Active 2018 Medical 0.1 MG Oral PO, Drug Center Tablet form: TAB, BID, Dosing Weight 69.909, kg, Priority: NOW, Start date: 11/20/17 12:57:00 [employer], Duration: 30 day, Stop date: 12/20/17 9:00:00 [employer]
Notes : (Same As: Catapres) Insulin Lispro
3 unit, No Longer [facility] 0.03 mL, Active 2017 Medical Route: SUB-Q, [place] Drug form: SOLN, TID-Before Meals, Dosing Weight 69.909, kg, PRN Blood Glucose Results, Start date: 11/20/17 12:55:00 [employer], Duration: 30 day, Stop date: 12/20/17 12:54:00 [employer]
Notes : (Same as: Humalog ) Roll in palms of hands gently; Do not shake `vigorously. "Single Patient Use Only " WASTE: F/P - Black; E - Municipal Trash Bin Stable for 28 days at room temperature. Expires in days from _Date Glucagon
1 mg, No Longer [facility] Route: IM, Active 2017 Medical Drug form: [place] PDR/INJ, PRN, Dosing Weight 69.909, kg, PRN Blood Glucose Results, Start date: 11/20/17 12:55:00 [employer], Duration: 30 day, Stop date: 12/20/17 12:54:00 [employer] Dextrose 50%
12.5 gm, No Longer [place] Syringe 25 mL, Route: Active 2018 Medical IVP, Drug Center Form: INJ, Dosing Weight 69.909, kg, PRN, PRN Blood Glucose Results, Start date: 11/20/17 12:55:00 [employer], Duration: 30 day, Stop date: 12/20/17 12:54:00 [employer] Tylenol
650 mg, No Longer [place] 2 tab, Route: Active 2018 Medical PO, Drug Center form: TAB, Q6H, Dosing Weight 69.909, kg, PRN Pain 1-3/Temp > 100.4 F, Start date: 11/20/17 12:54:00 [employer], Duration: 30 day, Stop date: 12/20/17 12:53:00 [employer]
No shabbir: Do not exceed 4 gm/day. (Same as: Tylenol) Saline Flush
10 ml, No Longer [place] 0.9% Route: IVP, Active 2017 Medical Drug Form: Center INJ, Dosing Weight 69.716, kg, Q12H, Start date: 11/20/17 9:00:00 [employer], Duration: 30 day, Stop date: 12/19/17 21:00:00 [employer]
Notes : Same as: BD Posiflush Sterile Lasix
20 mg, 2 Inactive [place] mL, Route: 2018 Medical IVP, Drug Center form: INJ, Q8H, Dosing Weight 69.716, kg, Start date: 11/20/17 8:00:00 [employer], Duration: 30 day, Stop date: 12/20/17 0:00:00 [employer]
Notes : (Same as: Lasix) Tylenol
650 mg, Inactive [place] 20.3 mL, 2018 Medical Route: PO, Center Drug form: LIQ, ONCE, Dosing Weight 69.909, kg, Start date: 11/20/17 5:20:00 [employer], Stop date: 11/20/17 5:20:00 [employer]
Notes : Max acetaminophen =4000mg/day (4 gm/day). (Same as: Tylenol) Sodium Chloride
250 mL, Inactive [facility] 0.9% (Bolus) IV 250 ml/hr, 2018 Medical Infuse Over: Center 1 hr, Route: IV, 250, Drug form: INJ, ONCE, Priority: STAT, Dosing Weight 69.909 kg, Start date: 11/20/17 1:33:00 [employer], Stop date: 11/20/17 1:33:00 [employer] Rasburicase
6 mg, Inactive [facility] Route: IV, 2017 Medical ONCE, Dosing Center Weight 69.909, kg, Start date: 11/20/17 1:31:00 [employer], Stop date: 11/20/17 1:31:00 [employer]
Notes : Restricted Medication: All Doses of Rasburicase should be interchanged to Rasburicase 6 mg x1 dose. A second dose may be given for patients unresponsive to 1 dose. (Same as:Elitek) MEDICATION WASTE Product Size: 1.5 mg Product Wasted: ___ mg Lasix
20 mg, 2 Inactive [facility] mL, Route: 2018 Medical IVP, Drug Center form: INJ, Q8H, Dosing Weight 69.716, kg, Start date: 11/20/17 0:00:00 [employer], Duration: 30 day, Stop date: 12/19/17 16:00:00 [employer]
Notes : (Same as: Lasix) Saline Flush
10 ml, No Longer [facility] 0.9% Route: IVP, Active 2017 Medical Drug Form: Center INJ, Dosing Weight 69.716, kg, PRN, PRN Line Flush, Start date: 11/19/17 22:17:00 [employer], Duration: 30 day, Stop date: 12/19/17 22:16:00 [employer]
Notes : Same as: BD Posiflush Sterile cefepime
1 gm, Inactive [facility] Route: IVP, 2018 Medical ONCE, Dosing Center Weight 69.716, kg, Priority: STAT, Start date: 11/19/17 19:46:00 [employer], Stop date: 11/19/17 19:46:00 [employer], ABX Indication: Pneumonia<br/ >Notes: (Same As: Maxipime) MEDICATION WASTE Product Size: 1000 mg Product Wasted: ___ mg Vancomycin
1,500 Inactive [place] mg, Route: 2018 Medical IVPB, ONCE, Center Dosing Weight 69.716, kg, Priority: STAT, Start date: 11/19/17 19:45:00 [employer], Stop date: 11/19/17 19:45:00 [employer], ABX Indication: Pneumonia<br/ >Notes: TIME CRITICAL MEDICATION (Same As: Vancocin) Infusion rate < 1000 mg: infuse over 1 hour 1001 - 1500 mg: infuse over 1.5 hours 1501 - 2000 mg: infuse over 2 hours > 2001 mg: infuse over 2.5 hours For adult patients only: Round to nearest 250 mg per Medical Staff approval MEDICATION WASTE Product Size: 1000 mg Product Wasted: ___ mg Sodium Chloride
250 mL, No Longer [facility] 0.9% (titrate) Rate: To Active 2018 [facility] 250 mL prime line Center and flush remaining blood products., Dosing Weight 69.716, kg, Route: IV, Total Volume: 250, Priority: Routine, Start Date: 11/19/17 18:49:00 [employer], Duration: 30 day, Stop date: 12/19/17 18:48:00 [employer], Replace Every: 24 hr
Notes: do not load in pyxis pantoprazole 40
40 mg=1 Active [place] mg oral enteric tab, PO, 2018 Medical coated tablet Before Center Breakfast, # 30 tab, 3 Refill(s) NIFEdipine 30 mg
30 mg=1 Active [place] oral tablet, tab, PO, 2018 Medical extended release Daily, # 60 Center tab, 3 Refill(s) lisinopril 20 mg
40 mg=2 Active [facility] oral tablet tab, PO, 2018 Medical Daily, # 60 Center tab, 3 Refill(s) DULoxetine 30 mg
30 mg=1 Active [facility] oral delayed cap, PO, 2018 Medical release capsule Daily, # 30 Center cap, 3 Refill(s) clopidogrel 75
75 mg=1 Active [facility] mg oral tablet tab, PO, 2018 Medical Daily, # 30 Center tab, 3 Refill(s) Clonidine
0.1 mg, Active [facility] Hydrochloride PO, BID, # 60 2018 Medical 0.1 MG Oral tab, 3 Center Tablet Refill(s) carvedilol 12.5
12.5 Active [facility] mg oral tablet mg=1 tab, PO, 2018 Medical BID, # 60 Center tab, 3 Refill(s) aspirin 81 mg
81 mg=1 Active [facility] tablet, enteric tab, PO, 2018 Medical coated Daily, # 30 Center tab, 3 Refill(s) Lasix
40 mg, 4 Inactive [facility] mL, Route: 2018 Medical IVP, Drug Center form: INJ, ONCE, Dosing Weight 72.455, kg, Start date: 11/01/17 7:11:00 [employer], Stop date: 11/01/17 7:11:00 [employer]
Notes : (Same as: Lasix) MEDICATION WASTE Product Size: 40 mg Product Wasted: ___ mg Sodium Chloride
250 mL, No Longer [place] 0.9% (titrate) Rate: para educator Active 2017 Medical 250 mL for use with [facility] blood product administratio n, Dosing Weight 72.455, kg, Route: IV, Total Volume: 250, Start Date: 11/01/17 7:10:00 [employer], Duration: 30 day, Stop date: 12/01/17 7:09:00 [employer], Replace Every: 24 hr Coreg
12.5 mg, No Longer [facility] 1 tab, Route: Active 2018 Medical PO, Drug Center form: TAB, ONCE, Dosing Weight 72.455, kg, Priority: NOW, Start date: 10/31/17 23:45:00 [employer], Stop date: 10/31/17 23:45:00 [employer]
Notes : Give with food. (Same As: Coreg) Clonidine
0.1 mg, No Longer [place] Hydrochloride 1 tab, Route: Active 2018 Medical 0.1 MG Oral PO, Drug Center Tablet form: TAB, ONCE, Dosing Weight 72.455, kg, Priority: NOW, Start date: 10/31/17 23:42:00 [employer], Stop date: 10/31/17 23:42:00 [employer]
Notes : (Same As: Catapres) tramadol
50 mg, 1 No Longer [place] hydrochloride 50 tab, Route: Active 2018 Medical MG Oral Tablet PO, Drug Center form: TAB, Q4H, Dosing Weight 72.455, kg, PRN Pain Score 1-3, Start date: 10/31/17 22:00:00 [employer], Duration: 30 day, Stop date: 11/30/17 21:59:00 [employer]
Notes : Not to exceed 400mg/day. (Same As: Ultram) chlorhexidine
15 mL, No Longer [facility] gluconate 1.2 Route: Swab Active 2017 Medical MG/ML Mouthwash Mouth, Q12H, Center Drug form: LIQ, Start date: 10/31/17 21:00:00 [employer], Duration: 30 day, Stop date: 11/30/17 9:00:00 [employer]
Notes : (Same As: Peridex) Dextrose 50%
12.5 gm, No Longer [place] Syringe 25 mL, Route: Active 2017 Medical IVP, Drug Center Form: INJ, Dosing Weight 72.455, kg, PRN, PRN Blood Glucose Results, Start date: 10/31/17 19:34:00 [employer], Duration: 30 day, Stop date: 11/30/17 19:33:00 [employer] Insulin regular
99 mL, No Longer [place] 100 unit + Rate: Start Active 2018 Medical Insulin Drip Center Per ICU Protocol, Dosing Weight 72.455, kg, Route: IVPB, Total Volume: 100, Start Date: 10/31/17 19:34:00 [employer], Duration: 30 day, Stop date: 11/30/17 19:33:00 [employer], Replace Every: 24 hr
Notes: Final Concentration 1unit/1ml WASTE: F/P - Black; E - Municipal Trash Bin Fentanyl
25 Inactive [facility] microgram, 2018 Medical 0.5 mL, Center Route: IVP, Drug form: INJ, ONCE, Dosing Weight 72.455, kg, Start date: 10/31/17 18:55:00 [employer], Stop date: 10/31/17 18:55:00 [employer]
Notes : (Same as: Sublimaze) Preservative free. ocular lubricant
1 appl, No Longer [facility] Route: BOTH Active 2018 Medical EYES, Q6H, Center Drug form: OINT, Start date: 10/31/17 18:00:00 [employer], Duration: 30 day, Stop date: 11/30/17 12:00:00 [employer]
Notes : (Same as: Lacri-Lube, Duratears Naturale, Artificial Tears, and Tears Again ) chlorhexidine
15 mL, No Longer [facility] gluconate 1.2 Route: Swab Active 2018 Medical MG/ML Mouthwash Mouth, PRN, Center Drug form: LIQ, PRN Other -See Comment, Start date: 10/31/17 17:28:00 [employer], Duration: 30 day, Stop date: 11/30/17 17:27:00 [employer]
Notes : (Same As: Peridex) rocuronium
Route: Inactive [facility] (ANES) IV, Drug 2017 Medical form: INJ, Center ONCE, Stop date: 10/31/17 16:57:00 [employer] Sodium Chloride
750 mL, No Longer [facility] 0.9% IV 750 mL Rate: 75 Active 2018 Medical ml/hr, Infuse Center over: 10 hr, Route: IV, Dosing Weight 72.455 kg, Total Volume: 750, Start date: 10/31/17 16:56:00 [employer], Duration: 10 hr, Stop date: 11/01/17 2:55:00 [employer], 1.81, m2 protamine (ANES)
Route: Inactive [facility] IV, Drug 2017 Medical form: INJ, Center ONCE, Stop date: 10/31/17 16:42:00 [employer] propofol (ANES)
Route: Inactive [facility] IV, Drug 2018 Medical form: INJ, Center ONCE, Stop date: 10/31/17 16:22:00 [employer] norepinephrine
Route: Inactive [place] (ANES) IV, Drug 2018 Medical form: INJ, Center ONCE, Stop date: 10/31/17 16:22:00 [employer] ondansetron
Route: Inactive [place] (ANES) IV, Drug 2018 Medical form: INJ, Center ONCE, Stop date: 10/31/17 16:08:00 [employer] fentaNYL (ANES)
Route: Inactive [facility] IV, Drug 2018 Medical form: INJ, Center ONCE, Stop date: 10/31/17 15:37:00 [employer] heparin (ANES)
Route: Inactive [facility] IV, Drug 2018 Medical form: INJ, Center ONCE, Stop date: 10/31/17 15:37:00 [employer] Ondansetron
4 mg, 2 No Longer [facility] mL, Route: Active 2018 Medical IVP, Drug Center form: INJ, ONCE, Dosing Weight 72.455, kg, PRN Nausea & Vomiting, Start date: 10/31/17 15:27:00 [employer]
Notes : (Same as: Duane) MEDICATION WASTE Product Size: 4 mg Product Wasted: ___ mg Fentanyl
25 No Longer [facility] microgram, Active 2018 Medical 0.5 mL, Center Route: IVP, Drug form: INJ, Q5Min, Dosing Weight 72.455, kg, PRN Pain Score 4-6, Priority: Routine, Start date: 10/31/17 15:27:00 [employer], Duration: 4 doses or times, Stop date: 11/01/17 0:00:00 [employer]
Notes : (Same as: Sublimaze) Preservative free. Naloxone
0.4 mg, No Longer [facility] 1 mL, Route: Active 2018 Medical IVP, Drug Center form: INJ, Q2MIN, Dosing Weight 72.455, kg, PRN Narcotic Reversal, Start date: 10/31/17 15:27:00 [employer], Duration: 8 doses or times, Stop date: 11/01/17 0:00:00 [employer]
Notes : Same as Narcan Flumazenil
0.2 mg, No Longer [facility] 2 mL, Route: Active 2018 Medical IVP, Drug Center form: INJ, PRN, Dosing Weight 72.455, kg, PRN Benzodiazepin e Reversal, Initial dose, Start date: 10/31/17 15:27:00 [employer], Stop date: 11/01/17 0:00:00 [employer]
No shabbir: (Same as: Romazicon) midazolam (ANES)
Route: Inactive [facility] IV, Drug 2018 Medical form: SOLN, Center ONCE, Stop date: 10/31/17 15:02:00 [employer] ceFAZolin (ANES)
Route: Inactive [facility] IV, Drug 2018 Medical form: INJ, Center ONCE, Stop date: 10/31/17 14:37:00 [employer] Sodium Chloride
Route: Inactive [facility] 0.9% IV (ANES) IV, Total 2018 Medical 500 mL Volume: 500, Center Start date: 10/31/17 13:50:00 [employer], Stop date: 10/31/17 14:50:00 [employer] dexmedetomidine
Route: Inactive [facility] (ANES) 400 IV, Drug 2018 Medical microgram form: INJ, Center Start date: 10/31/17 13:50:00 [employer], Stop date: 10/31/17 14:50:00 [employer] Pravastatin
20 mg, 1 No Longer [facility] tab, Route: Active 2018 Medical PO, Drug Center form: TAB, Bedtime, Dosing Weight 72.455, kg, Start date: 10/30/17 21:00:00 [employer], Duration: 30 day, Stop date: 11/28/17 21:00:00 [employer]
Notes : (Same as: Pravachol) Pneumovax 23
0.5 mL, Inactive [facility] Route: IM, 2018 Medical Drug Form: Center INJ, Daily, Start date: 10/30/17 12:00:00 [employer], Duration: 1 doses or times, Stop date: 10/30/17 12:00:00 [employer]
Notes : (Same as: Pneumovax 23) Refrigerate Hydralazine
10 mg, No Longer [facility] 0.5 mL, Active 2017 Medical Route: IV, Center Drug form: INJ, Q6H, Dosing Weight 72.455, kg, PRN Other -See Comment, Start date: 10/30/17 10:28:00 [employer], Duration: 30 day, Stop date: 11/29/17 10:27:00 [employer], SBP>160
N otes: (Same as: Apresoline) Push over 5 minutes pneumococcal
0.5 mL, Inactive [facility] capsular Route: IM, 2018 Medical polysaccharide Drug Form: Center type 1 vaccine / INJ, Daily, pneumococcal Start date: capsular 10/30/17 polysaccharide 9:00:00 [employer], type 10A vaccine Duration: 1 / pneumococcal doses or capsular times, Stop polysaccharide date: type 11A vaccine 10/30/17 / pneumococcal 9:00:00 capsular [employer]
Notes polysaccharide : (Same as: type 12F vaccine Pneumovax 23) / pneumococcal Refrigerate capsular polysacchar influenza virus
0.5 mL, Inactive [facility] vaccine, Route: IM, 2018 Medical inactivated Drug Form: Center SUSP, Daily, Start date: 10/30/17 9:00:00 [employer], Duration: 1 doses or times, Stop date: 10/30/17 9:00:00 [employer]
Notes : (Same as: Fluzone Quadrivalent, Fluarix Quadrivalent) For 3 years of age and older (0.5 mL IM) Shake well before use Coreg
12.5 mg, No Longer [facility] 1 tab, Route: Active 2018 Medical PO, Drug Center form: TAB, BID, Dosing Weight 72.455, kg, Start date: 10/30/17 9:00:00 [employer], Duration: 30 day, Stop date: 11/28/17 17:00:00 [employer]
Notes : Give with food. (Same As: Coreg) aspirin 81 mg
81 mg, 1 No Longer [facility] tablet, enteric tab, Route: Active 2018 Medical coated PO, Drug Center form: ECTAB, Daily, Dosing Weight 72.455, kg, Start date: 10/30/17 9:00:00 [employer], Duration: 30 day, Stop date: 11/28/17 9:00:00 [employer]
Notes : Do not crush or chew. (Same As: Ecotrin) Amlodipine
10 mg, 1 Inactive [facility] tab, Route: 2018 Medical PO, Drug Center form: TAB, Daily, Dosing Weight 72.455, kg, Start date: 10/30/17 9:00:00 [employer], Duration: 30 day, Stop date: 11/28/17 9:00:00 [employer]
Notes : (Same as: Norvasc) NIFEdipine 30 mg
30 mg, 1 No Longer [place] oral tablet, tab, Route: Active 2018 Medical extended release PO, Drug Center form: ERTAB, Daily, Dosing Weight 72.455, kg, Start date: 10/30/17 9:00:00 [employer], Duration: 30 day, Stop date: 11/28/17 9:00:00 [employer]
Notes : (Same as: Adalat CC, Procardia XL) Give on empty stomach. Take 1 hour before or 2 hours after meal; "Avoid grapefruit and grapefruit juice". Do not crush Lisinopril
40 mg, 2 No Longer [facility] tab, Route: Active 2018 Medical PO, Drug Center form: TAB, Daily, Dosing Weight 72.455, kg, Start date: 10/30/17 9:00:00 [employer], Duration: 30 day, Stop date: 11/28/17 9:00:00 [employer]
Notes : (Same as: Prinivil, Zestril) duloxetine
30 mg, 1 No Longer [place] cap, Route: Active 2018 Medical PO, Drug Center form: DRC, Daily, Dosing Weight 72.455, kg, Start date: 10/30/17 9:00:00 [employer], Duration: 30 day, Stop date: 11/28/17 9:00:00 [employer]
Notes : (Same as: Cymbalta) (Do Not Crush) clopidogrel
75 mg, 1 No Longer [facility] tab, Route: Active 2018 Medical PO, Drug Center form: TAB, Daily, Dosing Weight 72.455, kg, Start date: 10/30/17 9:00:00 [employer], Duration: 30 day, Stop date: 11/28/17 9:00:00 [employer]
Notes : (Same As: Plavix) 12 HR Clonidine
0.1 mg, No Longer [place] [facility] Hydro[facility] 1 tab, Route: Active 2018 Medical 0.1 MG Extended PO, Drug Center Release Tablet form: TAB, BID, Dosing Weight 72.455, kg, Start date: 10/30/17 9:00:00 [employer], Duration: 30 day, Stop date: 11/28/17 17:00:00 [employer]
Notes : (Same As: Catapres) heparin
5,000 No Longer [facility] unit, 1 mL, Active 2017 Medical Route: SUB-Q, Center Drug form: INJ, Q8H, Dosing Weight 72.455, kg, Start date: 10/30/17 8:00:00 [employer], Duration: 30 day, Stop date: 11/29/17 0:00:00 [employer]
Notes : porcine heparin Protonix
40 mg, 1 No Longer [facility] tab, Route: Active 2018 Medical PO, Drug Center form: ECTAB, Before Breakfast, Dosing Weight 72.455, kg, Start date: 10/30/17 7:30:00 [employer], Duration: 30 day, Stop date: 11/28/17 7:30:00 [employer]
Notes : Tablet should not be chewed or crushed. (Same as: Protonix) Benzocaine 15 MG
1 No Longer [facility] / Menthol 3.6 MG lozenge, Active 2018 Medical Lozenge [Cepacol Route: [facility] Sore Throat Pain [facility], Drug Relief 15/3.6] Form: SHWETA, Dosing Weight 72.455, kg, Q2H, PRN Sore Throat, Start date: 10/30/17 1:15:00 [employer], Duration: 30 day, Stop date: 11/29/17 1:14:00 [employer]
Notes : Cepacol lozenges Dispense 1 box=16 lozenges (Same As: Cepacol Lozenges) Lasix
20 mg, 2 No Longer [place] mL, Route: Active 2018 Medical IV, Drug Center form: INJ, Q12H, Dosing Weight 72.455, kg, Start date: 10/29/17 21:00:00 [employer], Duration: 30 day, Stop date: 11/28/17 9:00:00 [employer]
Notes : (Same as: Lasix) Melatonin 3 MG
3 mg, 1 No Longer [place] Extended Release tab, Route: Active 2018 Medical Tablet PO, Drug Center Form: TAB, Dosing Weight 72.455, kg, Bedtime, Start date: 10/29/17 21:00:00 [employer], Duration: 30 day, Stop date: 11/27/17 21:00:00 [employer]
Notes : (Same as: Melatonin) Glucagon
1 mg, No Longer [facility] Route: IM, Active 2018 Medical Drug form: Center PDR/INJ, PRN, Dosing Weight 72.455, kg, PRN Blood Glucose Results, Start date: 10/29/17 20:50:00 [employer], Duration: 30 day, Stop date: 11/28/17 20:49:00 [employer] Dextrose 50%
25 gm, No Longer [place] Syringe 50 mL, Route: Active 2018 Medical IVP, Drug Center Form: INJ, Dosing Weight 72.455, kg, PRN, PRN Blood Glucose Results, Start date: 10/29/17 20:50:00 [employer], Duration: 30 day, Stop date: 11/28/17 20:49:00 [employer] Insulin Lispro
8 unit, No Longer [facility] 0.08 mL, Active 2018 Medical Route: SUB-Q, [place] Drug form: SOLN, TID-Before Meals, Dosing Weight 72.455, kg, PRN Blood Glucose Results, Start date: 10/29/17 20:50:00 [employer], Duration: 30 day, Stop date: 11/28/17 20:49:00 [employer]
Notes : (Same as: Humalog ) Roll in palms of hands gently; Do not shake `vigorously. "Single Patient Use Only " WASTE: F/P - Black; E - Municipal Trash Bin Stable for 28 days at room temperature. Expires in days from _Date Magnesium Oxide
800 mg, No Longer [place] 2 tab, Route: Active 2018 [facility] PO, Drug Center form: TAB, PRN, Dosing Weight 72.455, kg, PRN Abnormal Lab Result, For NON-ICU Patients Only., Start date: 10/29/17 20:50:00 [employer], Duration: 30 day, Stop date: 11/28/17 20:49:00 [employer]
Notes : (Same as: Mag-Ox 400) Magnesium oxide [id number] elemental magnesium Dose=____mg magnesium oxide (___mg elemental magnesium) Calcium
2 gm, 20 No Longer [place] Gluconate mL, Route: Active 2017 Medical IVPB, PRN, Center Dosing Weight 72.455, kg, PRN Abnormal Lab Result, For NON-ICU Patients Only., Start date: 10/29/17 20:50:00 [employer], Duration: 30 day, Stop date: 11/28/17 20:49:00 [employer]
Notes : WASTE: F/P - Sink; E - Municipal Trash Bin sodium phosphate
15 mmol, No Longer [place] 5 mL, Route: Active 2018 Medical IVPB, PRN, Center Dosing Weight 72.455, kg, PRN Abnormal Lab Result, For NON-ICU Patients Only., Start date: 10/29/17 20:50:00 [employer], Duration: 30 day, Stop date: 11/28/17 20:49:00 [employer] potassium
30 mmol, No Longer [place] phosphate 10 mL, Route: Active 2018 Medical IVPB, PRN, Center Dosing Weight 72.455, kg, PRN Abnormal Lab Result, For NON-ICU Patients Only., Start date: 10/29/17 20:50:00 [employer], Duration: 30 day, Stop date: 11/28/17 20:49:00 [employer]
Notes : (Same as: K Phosphate.) 1 mMol phoshate has 1.47 mEq potassium Infuse over 4 hours Magnesium
2 gm, 50 No Longer [place] Sulfate mL, Route: Active 2018 Medical IVPB, Drug Center form: INJ, PRN, Dosing Weight 72.455, kg, PRN Abnormal Lab Result, For NON-ICU Patients Only., Start date: 10/29/17 20:50:00 [employer], Duration: 30 day, Stop date: 11/28/17 20:49:00 [employer]
Notes : WASTE: F/P - Sink; E - Municipal Trash Bin Potassium
20 mEq, No Longer [place] Chloride 1 tab, Route: Active 2018 Medical PO, Drug Center form: ERTAB, PRN, Dosing Weight 72.455, kg, PRN Abnormal Lab Result, For NON-ICU Patients Only, Start date: 10/29/17 20:50:00 [employer], Duration: 30 day, Stop date: 11/28/17 20:49:00 [employer]
Notes : (Same as: K-Dur 20) "Do Not Crush" With food and full glass of water potassium
2 pkt, No Longer [facility] phosphate-sodium Route: PO, Active 2017 Medical phosphate 250 Drug Form: Center mg-280 mg-160 mg PDR/REC, oral powder for Dosing Weight reconstitution 72.455, kg, PRN, PRN Abnormal Lab Result, For NON-ICU Patients Only, Start date: 10/29/17 20:50:00 [employer], Duration: 30 day, Stop date: 11/28/17 20:49:00 [employer]
Notes : (Same as: Phos-NaK) Each 1.5 gm pkt has 250mg phosphorous. Mix w/2.5oz water and stir. Magnesium
2 gm, 50 Inactive [place] Sulfate mL, Route: 2018 Medical IVPB, Drug Center form: INJ, ONCE, Dosing Weight 72.455, kg, Start date: 10/29/17 19:55:00 [employer], Stop date: 10/29/17 19:55:00 [employer]
Notes : WASTE: F/P - Sink; E - Municipal Trash Bin insulin glargine
SUB-Q, No Longer [facility] (concentrated) Daily, 0 Active 2017 Medical 300 units/mL Refill(s) Center subcutaneous solution DULoxetine 30 mg
30 mg=1 No Longer [facility] oral delayed cap, PO, Active 2017 Medical release capsule Daily, # 90 Center cap, 0 Refill(s) NIFEdipine 30 mg
30 mg=1 No Longer [facility] oral tablet, tab, PO, Active 2017 Medical extended release Daily, # 90 Center tab, 1 Refill(s) Amlodipine
10 mg, 1 No Longer [facility] tab, Route: Active 2015 Medical PO, Drug Center form: TAB, Daily, Dosing Weight 78.636, kg, Start date: 05/30/16 9:00:00 CDT, Duration: 30 day, Stop date: 06/28/16 9:00:00 CDT
Notes : (Same as: Norvasc) Protonix
40 mg, 1 No Longer [facility] tab, Route: Active 2015 Medical PO, Drug Center form: ECTAB, Daily, Dosing Weight 78.636, kg, Start date: 05/30/16 9:00:00 CDT, Duration: 30 day, Stop date: 06/28/16 9:00:00 CDT
Notes : Tablet should not be chewed or crushed. (Same as: Protonix) Lisinopril
40 mg, 2 No Longer [facility] tab, Route: Active 2015 Medical PO, Drug Center form: TAB, Daily, Dosing Weight 78.636, kg, Start date: 05/30/16 9:00:00 CDT, Duration: 30 day, Stop date: 06/28/16 9:00:00 CDT
Notes : (Same as: Prinivil, Zestril) clopidogrel
75 mg, 1 No Longer [facility] tab, Route: Active 2015 Medical PO, Drug Center form: TAB, Daily, Dosing Weight 78.636, kg, Start date: 05/30/16 9:00:00 CDT, Duration: 30 day, Stop date: 06/28/16 9:00:00 CDT
Notes : (Same As: Plavix) Aspirin 81 MG
81 mg, 1 No Longer [facility] Enteric Coated tab, Route: Active 2015 Medical Tablet PO, Drug Center form: ECTAB, Daily, Dosing Weight 78.636, kg, Start date: 05/30/16 9:00:00 CDT, Duration: 30 day, Stop date: 06/28/16 9:00:00 CDT
Notes : Do not crush or chew. (Same As: Ecotrin) NovoLOG FlexPen
Route: No Longer [facility] SUB-Q, Drug Active 2015 Medical form: INJ, Center Before Breakfast, Dosing Weight 78.636, kg, Start date: 05/30/16 7:30:00 CDT, Duration: 30 day, Stop date: 06/28/16 7:30:00 CDT Pravastatin
20 mg, 1 Inactive [facility] tab, Route: 2015 Medical PO, Drug Center form: TAB, Bedtime, Dosing Weight 78.636, kg, Start date: 05/29/16 21:00:00 CDT, Duration: 30 day, Stop date: 06/27/16 21:00:00 CDT
Notes : (Same as: Pravachol) glimepiride
4 mg, 1 Inactive [facility] tab, Route: 2015 Medical PO, Drug Center form: TAB, BID, Dosing Weight 78.636, kg, Start date: 05/29/16 17:00:00 CDT, Duration: 30 day, Stop date: 06/28/16 9:00:00 CDT
Notes : (Same as: Amaryl) cyclobenzaprine
10 mg, 1 Inactive [facility] tab, Route: 2016 Medical PO, Drug Center form: TAB, QPM, Dosing Weight 78.636, kg, Start date: 05/29/16 17:00:00 CDT, Duration: 30 day, Stop date: 06/27/16 17:00:00 CDT
Notes : (Same As: Flexeril) 12 HR Clonidine
0.1 mg, Inactive 05/29[facility] Hydrochloride 1 tab, Route: 2015 Medical 0.1 MG Extended PO, Drug Center Release Tablet form: TAB, BID, Dosing Weight 78.636, kg, Start date: 05/29/16 17:00:00 CDT, Duration: 30 day, Stop date: 06/28/16 9:00:00 CDT
Notes : (Same As: Catapres) Coreg
12.5 mg, Inactive 05/29[facility] 1 tab, Route: 2016 Medical PO, Drug Center form: TAB, BID, Dosing Weight 78.636, kg, Start date: 05/29/16 17:00:00 CDT, Duration: 30 day, Stop date: 06/28/16 9:00:00 CDT
Notes : Give with food. (Same As: Coreg) amLODIPine 10 mg
10 mg=1 Active [facility] oral tablet tab, PO, 2015 Medical Daily, # 90 Center tab, 3 Refill(s) amLODIPine 10 mg
10 mg=1 Inactive [facility] oral tablet tab, PO, 2015 Medical Daily, # 90 Center tab, 3 Refill(s) amLODIPine 10 mg
5 mg, Inactive 05/29[facility] oral tablet PO, Daily, # 2016 Medical 90 tab, 0 Center Refill(s) Nitroglycerin
0.4 mg, Inactive 05/29[facility] 1 tab, Route: 2016 Medical SL, Drug Center form: TAB, Q5Min, Dosing Weight 78.636, kg, PRN Chest Pain, Start date: 05/29/16 9:02:00 CDT, Duration: 3 doses or times, Stop date: 05/29/16 17:00:00 CDT
Notes : (Same as:Nitroquick , Nitrostat) "Do Not Crush" Sublingual tablet Sodium Chloride
750 mL, Inactive [facility] 0.154 MEQ/ML Rate: 75 2016 Medical Injectable ml/hr, Infuse Center Solution over: 10 hr, Route: IV, Dosing Weight 78.636 kg, Total Volume: 750, Start date: 05/29/16 9:02:00 CDT, Duration: 10 hr, Stop date: 05/29/16 19:01:00 CDT 24 HR Metformin
500 mg=1 Active [facility] hydrochloride tab, PO, 2016 Medical 500 MG Extended BID-Meals, # Center Release Tablet 60 tab, 1 Refill(s) 12 HR Clonidine
0.1 mg=1 Active [facility] Hydrochloride tab, PO, BID, 2016 Medical 0.1 MG Extended # 60 tab, 0 Center Release Tablet Refill(s) Amlodipine
5 mg, Inactive [facility] PO, Daily, 0 2015 Medical Refill(s) [place] meloxicam 15 mg
15 mg=1 Active [facility] oral tablet tab, PO, 2016 Medical Daily, # 30 Center tab, 0 Refill(s) sodium chloride
1,000 Inactive [facility] 0.9% 1000 ml INJ mL, Rate: 100 2015 Medical 1,000 mL ml/hr, Infuse Center over: 10 hr, Route: IVPB, Dosing Weight 78.636 kg, Total Volume: 1,000, Start date: 05/29/16 5:54:00 CDT, Duration: 30 day, Stop date: 06/28/16 5:53:00 CDT Keflex 500 mg 500 mg, 1 PO Active [facility] oral capsule cap, PO, Q8H, 2012 Medical 9 cap, Center Substitution Allowed [place] 5/325 oral 1 tab, PO, PO Active [facility] tablet Q4H, PRN, 20 2012 Medical tab, Pain, Center Substitution Allowed, Maintenance, TAB magnesium 4 gm, 100 mL, IVPB Active [facility] sulfate Route: IVPB, 2012 Medical Drug form: [place] INJ, ONCE, Dosing Weight 81.818, kg, Total dose=4 gm, Start date: 01/20/13 9:40:00, Stop date: 01/20/13 9:40:00 magnesium 2 gm, 50 mL, IVPB No Longer [facility] 01/20[facility] sulfate Route: IVPB, Active 2012 Medical Drug form: [place] INJ, ONCE, Dosing Weight 81.818, kg, Total dose=2 gm, Start date: 01/20/13 9:34:00, Duration: 1 doses or times, Stop date: 01/20/13 9:34:00 clopidogrel 75 mg, 1 tab, PO No Longer [facility] Route: PO, Active 2012 Medical Drug form: Center TAB, Daily, Dosing Weight 81.818, kg, Start date: 01/20/13 9:00:00, Duration: 30 day, Stop date: 02/18/13 9:00:00 citalopram 10 mg, 1 tab, PO No Longer [facility] Route: PO, Active 2012 Medical Drug form: [place] TAB, Daily, Dosing Weight 81.818, kg, Start date: 01/20/13 9:00:00, Duration: 30 day, Stop date: 02/18/13 9:00:00 aspirin 81 mg 81 mg, 1 tab, PO No Longer [facility] tablet, enteric Route: PO, Active 2012 Medical coated Drug form: [place] ECTAB, Daily, Dosing Weight 81.818, kg, Start date: 01/20/13 9:00:00, Duration: 30 day, Stop date: 02/18/13 9:00:00 pravastatin 20 mg, 1 tab, PO No Longer [facility] Route: PO, Active 2012 Medical Drug form: [place] TAB, Daily, Dosing Weight 81.818, kg, Start date: 01/20/13 9:00:00, Duration: 30 day, Stop date: 02/18/13 9:00:00 Protonix 40 mg, 1 tab, PO No Longer [facility] Route: PO, Active 2012 Medical Drug form: [place] ECTAB, Daily, Dosing Weight 81.818, kg, Start date: 01/20/13 9:00:00, Duration: 30 day, Stop date: 02/18/13 9:00:00 lisinopril 40 mg, 2 tab, PO No Longer [facility] Route: PO, Active 2012 Medical Drug form: Center TAB, Daily, Dosing Weight 81.818, kg, Start date: 01/20/13 9:00:00, Duration: 30 day, Stop date: 02/18/13 9:00:00 Saline Flush 5 ml, Route: IVP No Longer [facility] 0.9% IVP, Drug Active 2012 Medical Form: INJ, Center Dosing Weight 81.818, kg, Q12H, Start date: 01/19/13 21:00:00, Duration: 30 day, Stop date: 02/18/13 9:00:00 [place] 5/325 oral 1 tab, Route: PO No Longer [facility] tablet PO, Drug Active 2012 Medical Form: TAB, Center Dosing Weight 81.818, kg, Q4H, PRN Pain, Start date: 01/19/13 18:24:00, Duration: 30 day, Stop date: 02/18/13 18:23:00 Tylenol 650 mg, 2 PO No Longer [facility] tab, Route: Active 2012 Medical PO, Drug Center form: TAB, Q4H, Dosing Weight 81.818, kg, PRN Pain, Start date: 01/19/13 18:16:00, Duration: 30 day, Stop date: 02/18/13 18:15:00 cyclobenzaprine 5 mg, 0.5 PO No Longer [facility] tab, Route: Active 2012 Medical PO, Drug Center form: TAB, QPM, Dosing Weight 81.818, kg, Start date: 01/19/13 17:00:00, Duration: 30 day, Stop date: 02/17/13 17:00:00 Coreg 12.5 mg, 1 PO No Longer [facility] tab, Route: Active 2012 Medical PO, Drug Center form: TAB, BID, Dosing Weight 81.818, kg, Start date: 01/19/13 17:00:00, Duration: 30 day, Stop date: 02/18/13 9:00:00 cefazolin (SCIP) 1 gm, Route: IVPB No Longer [facility] IVPB, Drug Active 2012 Medical form: Center PDR/INJ, Q8H, Dosing Weight 81.818, kg, Start date: 01/19/13 17:00:00, Duration: 3 doses or times, Stop date: 01/20/13 9:00:00 glimepiride 4 mg, 1 tab, PO No Longer [facility] Route: PO, Active 2012 Medical Drug form: Center TAB, BID, Dosing Weight 81.818, kg, Start date: 01/19/13 17:00:00, Duration: 30 day, Stop date: 02/18/13 9:00:00 gabapentin 100 100 mg, 1 PO No Longer [facility] mg oral capsule cap, Route: Active 2012 Medical PO, Drug Center form: CAP, Q8H, Dosing Weight 81.818, kg, Start date: 01/19/13 16:00:00, Duration: 30 day, Stop date: 02/18/13 8:00:00 magnesium 2 gm, 50 mL, IVPB No Longer [facility] [place] sulfate 2 gm in Route: IVPB, Active 2012 Medical Water 50 ml Drug form: [place] INJ, ONCE, Dosing Weight 81.818, kg, Priority: STAT, Start date: 01/19/13 11:26:00, Duration: 2 hr, Stop date: 01/19/13 11:26:00 Saline Flush 5 ml, Route: IVP No Longer [facility] 0.9% IVP, Drug Active 2012 Medical Form: INJ, [place] Dosing Weight 81.818, kg, PRN, PRN Line Flush, Start date: 01/19/13 11:05:00, Duration: 30 day, Stop date: 02/18/13 11:04:00 ondansetron 4 mg, 2 mL, IVP No Longer [facility] Route: IVP, Active 2012 Medical Drug form: [place] INJ, Q8H, Dosing Weight 81.818, kg, PRN Nausea & Vomiting, Start date: 01/19/13 11:05:00, Duration: 30 day, Stop date: 02/18/13 11:04:00 acetaminophen 325 mg, 1 PO No Longer [facility] tab, Route: Active 2012 Medical PO, Drug Center form: TAB, Q4H, Dosing Weight 81.818, kg, PRN Pain Score 4-6, Start date: 01/19/13 11:05:00, Duration: 30 day, Stop date: 02/18/13 11:04:00 Saline Flush 5 ml, Route: IVP No Longer [facility] 0.9% IVP, Drug Active 2012 Medical Form: INJ, [place] Dosing Weight 81.818, kg, Q12H, Start date: 01/19/13 9:00:00, Duration: 30 day, Stop date: 02/17/13 21:00:00 magnesium 4 gm, 100 mL, IV No Longer [place] sulfate Route: IV, Active 2012 Medical Drug form: [place] INJ, ONCE, Dosing Weight 81.818, kg, stat, Start date: 01/19/13 7:29:00, Stop date: 01/19/13 7:29:00 lisinopril 40 mg 40 mg, 1 tab, PO Active [facility] 01/19[facility] [place] oral tablet PO, Daily, 30 2012 Medical tab, Center Substitution Allowed, TAB NovoLog FlexPen Per Sliding SUB-Q Active [facility] Scale, SUB-Q, 2012 Medical Before [place] Breakfast, Substitution Allowed, INJ cyclobenzaprine 5 mg, 1 tab, PO Active [facility] 01/19[facility] [place] 5 mg oral tablet PO, QPM, 2012 Medical Substitution Center Allowed, TAB aspirin 81 mg 81 mg, 1 tab, PO Active [facility] 01/19[facility] [place] tablet, enteric PO, Daily, 0 2012 Medical coated tab, [place] Substitution Allowed, ECTAB gabapentin 100 100 mg, 1 PO Active [facility] [place] mg oral capsule cap, PO, Q8H, 2012 Medical Substitution Center Allowed, CAP glimepiride 4 mg 4 mg, 1 tab, PO Active [facility] 01/19[facility] [place] oral tablet PO, BID, 30 2012 Medical tab, [place] Substitution Allowed, TAB warfarin 5 mg 5 mg, 1 tab, PO No Longer [place] oral tablet PO, Daily, 30 Active 2012 Medical tab, Center Substitution Allowed, TAB pravastatin 20 20 mg, 1 tab, PO Active [facility] 01/19[facility] [place] mg oral tablet PO, Daily, 30 2012 Medical tab, [place] Substitution Allowed, TAB clopidogrel 75 75 mg, 1 tab, PO Active [facility] 01/19[facility] [place] mg oral tablet PO, Daily, 30 2012 Medical tab, Center Substitution Allowed, TAB citalopram 10 mg 10 mg, 1 tab, PO Active [facility] 01/19[facility] [place] oral tablet PO, Daily, 30 2012 Medical tab, [place] Substitution Allowed, TAB Protonix 40 mg 40 mg, 1 tab, PO Active [facility] 01/19[facility] [place] oral enteric PO, Daily, 30 2012 Medical coated tablet tab, Center Substitution Allowed, ECTAB Coreg 12.5 mg 12.5 mg, 1 PO Active [facility] oral tablet tab, PO, BID, 2012 Medical 180 tab, Center Substitution Allowed, TAB Saline Flush 5 ml, Route: IVP No Longer [facility]autam [place] 0.9% IVP, Drug Active 2012 Medical Form: INJ, Center Dosing Weight 81.818, kg, PRN, PRN Line Flush, Start date: 01/19/13 6:11:00, Duration: 30 day, Stop date: 02/18/13 6:10:00 warfarin 4 mg, 2 tab, PO No Longer [facility] Route: PO, Active 2011 Medical Drug form: Center TAB, Q5PM, Dosing Weight 86.364, kg, Start date: 07/31/12 17:00:00, Duration: 1 doses or times, Stop date: 07/31/12 17:00:00 warfarin 4 mg, 2 tab, PO No Longer [facility] Route: PO, Active 2011 Medical Drug form: Center TAB, Q5PM, Dosing Weight 86.364, kg, Start date: 07/30/12 17:00:00, Duration: 1 doses or times, Stop date: 07/30/12 17:00:00 pravastatin 20 40 mg, 2 tab, PO Active [facility] mg oral tablet PO, QPM, 60 2011 Medical tab, Center Substitution Allowed, TAB Flexeril 10 mg 5 mg, 0.5 [facility] oral tablet tab, PO, QPM, 2011 Medical 30 tab, Center Substitution Allowed, TAB [place] 10/325 1 tab, PO, PO Active [facility] oral tablet BID, PRN, 60 2011 Medical tab, Pain, Center Substitution Allowed, Maintenance, TAB warfarin 2 mg 4 mg, 2 tab, PO Active [facility] oral tablet PO, Q5PM, 2011 Medical Goal INR 2- Center 2.5. Please check INR on Friday. Results to PCP, 30 tab, Substitution Allowed, TAB
Goal INR 2- 2.5. Please check INR on Friday. Results to PCP Protonix 40 mg 40 mg, 1 tab, PO Active [facility] oral enteric PO, Before 2011 Medical coated tablet Dinner, 30 Center tab, Substitution Allowed, ECTAB magnesium oxide 400 mg, 1 PO Active [facility] [place] 400 mg oral tab, PO, TID, 2011 Medical tablet 90 tab, Center Substitution Allowed, TAB lisinopril 10 mg 10 mg, 1 tab, PO Active [facility] [place] oral tablet PO, Daily, 2011 Medical tab, Center Substitution Allowed, TAB insulin glargine 20 unit, 0.2 SUB-Q [facility] [place] 100 units/mL mL, SUB-Q, 2011 Medical subcutaneous Daily, 1 mL, [place] solution Substitution Allowed, SOLN gabapentin 100 100 mg, 1 PO Active [facility] mg oral capsule cap, PO, Q8H, 2011 Medical 90 cap, Center Substitution Allowed, CAP clopidogrel 75 75 mg, 1 tab, PO Active [facility] [place] mg oral tablet PO, Daily, 2011 Medical tab, Center Substitution Allowed, TAB citalopram 10 mg 10 mg, 1 tab, PO Active [facility] [place] oral tablet PO, Daily, 2011 Medical tab, [place] Substitution Allowed, TAB Coreg 12.5 mg 12.5 mg, 1 PO Active [facility] oral tablet tab, PO, 2011 Medical Q12H, 60 tab, [place] Substitution Allowed, TAB aspirin 81 mg 81 mg, 1 tab, PO Active [facility] tablet, enteric PO, Daily, 2011 Medical coated tab, [place] Substitution Allowed, ECTAB aspirin 81 mg 81 mg, 1 tab, PO No Longer [facility] tablet, enteric Route: PO, Active [facility]to 2011 Medical coated Drug form: Center ECTAB, Daily, Start date: 07/30/12 8:00:00, Duration: 30 day, Stop date: 08/28/12 8:00:00 aspirin 325 mg 325 mg, 1 PO No Longer [facility] tablet, enteric tab, Route: Active Mario Alberto 2011 Medical coated PO, Drug Center form: ECTAB, ONCE, Start date: 07/29/12 22:30:00, Stop date: 07/29/12 22:30:00 warfarin 5 mg, 1 tab, PO No Longer [facility] Route: PO, Active Mario Alberto 2011 Medical Drug form: Center TAB, ONCE, Dosing Weight 86.364, kg, Priority: NOW, Start date: 07/29/12 18:48:00, Stop date: 07/29/12 18:48:00 Flexeril 5 mg, 0.5 PO No Longer [facility] tab, Route: Active 2011 Medical PO, Drug Center form: TAB, QPM, Dosing Weight 86.364, kg, Start date: 07/29/12 17:00:00, Duration: 30 day, Stop date: 08/27/12 17:00:00 pravastatin 40 mg, 2 tab, PO No Longer [facility] Route: PO, Active 2011 Medical Drug form: Center TAB, QPM, Dosing Weight 86.364, kg, Start date: 07/27/12 17:00:00, Duration: 30 day, Stop date: 08/25/12 17:00:00 Coumadin 7.5 mg, 1 PO No Longer [facility] tab, Route: Active 2011 Medical PO, Drug Center form: TAB, Q5PM, Dosing Weight 86.364, kg, Start date: 07/26/12 17:00:00, Duration: 1 doses or times, Stop date: 07/26/12 17:00:00 Coumadin 7.5 mg, 1 PO No Longer [facility] tab, Route: Active 2011 Medical PO, Drug Center form: TAB, ONCE, Dosing Weight 86.364, kg, Start date: 07/25/12 17:45:00, Stop date: 07/25/12 17:45:00 acetaminophen 325 mg, 1 PO No Longer [facility] tab, Route: Active 2011 Medical PO, Drug Center form: TAB, BID, Dosing Weight 86.364, kg, Start date: 07/25/12 7:00:00, Duration: 30 day, Stop date: 08/23/12 12:00:00 warfarin 7.5 mg, 1 PO No Longer [facility] tab, Route: Active 2011 Medical PO, Drug Center form: TAB, Q5PM, Dosing Weight 86.364, kg, Start date: 07/24/12 17:00:00, Duration: 1 doses or times, Stop date: 07/24/12 17:00:00 warfarin 7.5 mg, 1 PO No Longer [facility] tab, Route: Active 2011 Medical PO, Drug Center form: TAB, Q5PM, Dosing Weight 86.364, kg, Start date: 07/23/12 17:00:00, Duration: 1 doses or times, Stop date: 07/23/12 17:00:00 warfarin 7.5 mg, 1 PO No Longer [facility] tab, Route: Active 2011 Medical PO, Drug Center form: TAB, ONCE, Dosing Weight 86.364, kg, Start date: 07/22/12 17:24:00, Stop date: 07/22/12 17:24:00 Dextrose 50% 25 gm, 50 mL, IVP No Longer [facility] Syringe Route: IVP, Active 2011 Medical Drug Form: [place] INJ, Dosing Weight 86.364, kg, PRN, PRN Blood Glucose Results, Start date: 07/22/12 13:47:00, Duration: 30 day, Stop date: 08/21/12 13:46:00 glucagon 1 mg, Route: IM No Longer [facility] IM, Drug Active 2011 Medical form: [place] PDR/INJ, PRN, Dosing Weight 86.364, kg, PRN Blood Glucose Results, Start date: 07/22/12 13:47:00, Duration: 30 day, Stop date: 08/21/12 13:46:00 Insulin regular 4 unit, 0.04 SUB-Q No Longer [facility] mL, Route: Active 2011 Medical SUB-Q, Drug Center form: SOLN, Bedtime, Dosing Weight 86.364, kg, PRN Blood Glucose Results, Start date: 07/22/12 13:47:00, Duration: 30 day, Stop date: 08/21/12 13:46:00 pneumococcal 0.5 ml, IM No Longer SYSTEM OPID 23-valent Route: IM, Active 2011 Julian, vaccine Drug Form: [facility] INJ, Start Medical date: [place] 07/22/12 9:00:00, Stop date: 07/22/12 9:00:00 lisinopril 10 mg, 1 tab, PO No Longer [facility] Route: PO, Active 2011 Medical Drug form: Center TAB, Daily, Dosing Weight 67, kg, Start date: 07/22/12 9:00:00, Duration: 30 day, Stop date: 08/20/12 9:00:00 insulin glargine 20 unit, 0.2 SUB-Q No Longer [facility] [place] mL, Route: Active 2011 Medical SUB-Q, Drug Center form: INJ, Daily, Dosing Weight 67, kg, Start date: 07/22/12 9:00:00, Duration: 30 day, Stop date: 08/20/12 9:00:00 clopidogrel 75 mg, 1 tab, PO No Longer [facility] Route: PO, Active 2011 Medical Drug form: Center TAB, Daily, Dosing Weight 67, kg, Start date: 07/22/12 9:00:00, Duration: 30 day, Stop date: 08/20/12 9:00:00 citalopram 10 mg, 1 tab, PO No Longer [facility] Route: PO, Active 2011 Medical Drug form: Center TAB, Daily, Dosing Weight 67, kg, Start date: 07/22/12 9:00:00, Duration: 30 day, Stop date: 08/20/12 9:00:00 aspirin 325 mg 325 mg, 1 PO No Longer [place] tablet tab, Route: Active 2011 Medical PO, Drug Center form: TAB, Daily, Dosing Weight 67, kg, Start date: 07/22/12 9:00:00, Duration: 30 day, Stop date: 08/20/12 9:00:00 Coreg 12.5 mg, 1 PO No Longer [facility] tab, Route: Active 2011 Medical PO, Drug Center form: TAB, Q12H, Dosing Weight 67, kg, Start date: 07/21/12 21:00:00, Stop date: 08/20/12 9:00:00 Coumadin 7.5 mg, PO [facility] Route: PO, Active 2011 Medical Drug form: Center TAB, Q5PM, Dosing Weight 67, kg, Start date: 07/21/12 17:00:00, Duration: 30 day, Stop date: 08/19/12 17:00:00 magnesium oxide 400 mg, 1 PO No Longer [facility] base 500 mg oral tab, Route: Active 2011 Medical tablet PO, Drug Center Form: TAB, Dosing Weight 67, kg, TID, Start date: 07/21/12 17:00:00, Duration: 30 day, Stop date: 08/20/12 13:00:00 magnesium oxide 400 mg, 1 PO No Longer [facility] tab, Route: Active 2011 Medical PO, Drug Center form: TAB, TID, Dosing Weight 67, kg, Start date: 07/21/12 17:00:00, Duration: 30 day, Stop date: 08/20/12 13:00:00 docusate 100 mg, 1 PO No Longer [facility] cap, Route: Active 2011 Medical PO, Drug Center form: CAP, BID, Dosing Weight 67, kg, Start date: 07/21/12 17:00:00, Duration: 30 day, Stop date: 08/20/12 9:00:00 atorvastatin 80 mg, 1 tab, PO No Longer [facility] Route: PO, Active 2011 Medical Drug form: Center TAB, Bedtime, Dosing Weight 67, kg, Start date: 07/21/12 17:00:00, Duration: 30 day, Stop date: 08/19/12 21:00:00 Protonix 40 mg, 1 tab, PO No Longer [facility] Route: PO, Active 2011 Medical Drug form: [place] ECTAB, Before Dinner, Dosing Weight 67, kg, Start date: 07/21/12 16:30:00, Duration: 30 day, Stop date: 08/19/12 16:30:00 Lantus 100 20 unit, 0.2 SUB-Q Active [facility] units/mL mL, SUB-Q, 2011 Medical subcutaneous Daily, 1 Center solution vial, Substitution Allowed, SOLN magnesium oxide 500 mg, PO, PO Active [facility]Amanda [place] 500 mg oral TID, 90 tab, 2011 Medical tablet Substitution Center Allowed, TAB Neurontin 100 mg 100 mg, 1 PO Active [facility] oral capsule cap, PO, Q8H, 2011 Medical 90 cap, Center Substitution Allowed, CAP Coumadin 7.5 mg 7.5 mg, 1 PO Active [facility] [place] oral tablet tab, PO, 2011 Medical Q5PM, 31 tab, Center Substitution Allowed, TAB Protonix 40 mg 40 mg, 1 tab, PO Active [facility] 07/21[facility] [place] oral enteric PO, Before 2011 Medical coated tablet Dinner, 30 Center tab, Substitution Allowed, ECTAB lisinopril 10 mg 10 mg, 1 tab, PO Active [facility]a 07/21[facility] [place] oral tablet PO, Daily, 30 2011 Medical tab, Center Substitution Allowed, TAB clopidogrel 75 75 mg, 1 tab, PO Active [facility]a 07/21[facility] [place] mg oral tablet PO, Daily, 30 2011 Medical tab, Center Substitution Allowed, TAB citalopram 10 mg 10 mg, 1 tab, PO Active [facility] 07/21[facility] [place] oral tablet PO, Daily, 2011 Medical tab, Center Substitution Allowed, TAB Coreg 3.125 mg 3.125 mg, 1 PO Active [facility] [place] oral tablet tab, PO, 2011 Medical Q12H, 60 tab, Center Substitution Allowed, TAB atorvastatin 80 80 mg, 1 tab, PO Active [facility] 07/21[facility] [place] mg oral tablet PO, QPM, 30 2011 Medical tab, Center Substitution Allowed, TAB aspirin 325 mg 325 mg, 1 PO Active [facility]a [place] tablet tab, PO, 2011 Medical Daily, 30 Center tab, Substitution Allowed, TAB Neurontin 100 mg 100 mg, 1 PO No Longer [facility] oral capsule cap, Route: Active 2011 Medical PO, Drug Center form: CAP, Q8H, Dosing Weight 67, kg, Start date: 07/21/12 16:00:00, Duration: 30 day, Stop date: 08/20/12 8:00:00 gabapentin 100 mg, 1 PO No Longer [facility] [place] cap, Route: Active 2011 Medical PO, Drug Center form: CAP, Q8H, Dosing Weight 67, kg, Start date: 07/21/12 16:00:00, Duration: 30 day, Stop date: 08/20/12 8:00:00 nitroglycerin 0.4 mg, 1 SL No Longer [facility] [place] 0.4 mg tab, Route: Active 2011 Medical sublingual SL, Drug Center tablet form: TAB, Q5Min, Dosing Weight 67, kg, PRN Chest Pain, Start date: 07/21/12 14:58:00, Duration: 30 day, Stop date: 08/20/12 14:57:00 acetaminophen 650 mg, 2 PO No Longer [facility] tab, Route: Active 2011 Medical PO, Drug Center form: TAB, Q6H, Dosing Weight 67, kg, PRN Pain, Start date: 07/21/12 14:57:00, Duration: 30 day, Stop date: 08/20/12 14:56:00 [place] 10/325 1 tab, Route: PO No Longer [facility] oral tablet PO, Drug Active 2011 Medical Form: TAB, Center Dosing Weight 67, kg, Q4H, PRN Pain, Start date: 07/21/12 14:56:00, Duration: 30 day, Stop date: 08/20/12 14:55:00 Coumadin 7.5 mg 7.5 mg, 1 PO No Longer [facility] oral tablet tab, PO, Active 2011 Medical Q5PM, 31 tab, Center Substitution Allowed, TAB magnesium 2 gm, 50 mL, IVPB No Longer [facility] sulfate Route: IVPB, Active 2011 Medical Drug form: Center INJ, ONCE, Dosing Weight 67, kg, Total dose=2 gm, Start date: 07/21/12 7:32:00, Duration: 1 doses or times, Stop date: 07/21/12 7:32:00 ibuprofen 400 mg 400 mg, 1 PO No Longer [facility] oral tablet tab, Route: Active 2011 Medical PO, Drug Center form: TAB, Q4H, Dosing Weight 67, kg, PRN Pain, Start date: 07/21/12 1:32:00, Duration: 30 day, Stop date: 08/20/12 1:31:00 warfarin 5 mg, 1 tab, PO No Longer [facility] Route: PO, Active 2011 Medical Drug form: Center TAB, Q5PM, Dosing Weight 67, kg, Start date: 07/20/12 21:00:00, Duration: 1 doses or times, Stop date: 07/20/12 21:00:00 metoprolol 5 5 mg, 5 mL, IVP No Longer [facility] [place] mg/5 ml INJ Route: IVP, Active 2011 Medical Drug form: [place] INJ, ONCE, Dosing Weight 67, kg, PRN Other -See Comment, Start date: 07/20/12 12:00:00, Stop date: 08/19/12 11:59:00 magnesium oxide 800 mg, 2 PO No Longer [facility] tab, Route: Active 2011 Medical PO, Drug Center form: TAB, ONCE, Dosing Weight 67, kg, Start date: 07/20/12 11:38:00, Stop date: 07/20/12 11:38:00 Coumadin 5 mg, 1 tab, PO No Longer Siddiqui [facility] Route: PO, Active 2011 Medical Drug form: [place] TAB, Q5PM, Dosing Weight 67, kg, Start date: 07/19/12 17:00:00, Duration: 1 doses or times, Stop date: 07/19/12 17:00:00 Lantus 20 unit, 0.2 SUB-Q No Longer [facility] mL, Route: Active 2011 Medical SUB-Q, Drug Center form: INJ, Daily, Start date: 07/19/12 9:00:00, Duration: 30 day, Stop date: 08/17/12 9:00:00 magnesium 2 gm, 50 mL, IVPB No Longer [facility] [place] sulfate Route: IVPB, Active 2011 Medical Drug form: [place] INJ, Q2H, Dosing Weight 67, kg, Total dose=6 gm, Start date: 07/19/12 6:00:00, Duration: 3 doses or times, Stop date: 07/19/12 10:00:00 calcium chloride 2,000 mg, 20 IV No Longer [facility] + Sodium mL, Route: Active 2011 Medical Chloride 0.9% IV IV, Drug Center 100 mL form: INJ, ONCE, Dosing Weight 67, kg, Start date: 07/19/12 5:03:00, Stop date: 07/19/12 5:03:00 magnesium 2 gm, 50 mL, IVPB No Longer [facility] [place] sulfate Route: IVPB, Active 2011 Medical Drug form: Center INJ, Q2H, Dosing Weight 67, kg, Start date: 07/18/12 8:00:00, Duration: 3 doses or times, Stop date: 07/18/12 12:00:00, For Mg=1.0 - 1.4 mg/dL
For Mg=1.0 - 1.4 mg/dL Saline Flush 5 ml, Route: IVP No Longer [facility] 0.9% IVP, Drug Active 2011 Medical Form: INJ, Center Dosing Weight 67, kg, Q12H, Start date: 07/17/12 21:00:00, Duration: 30 day, Stop date: 08/16/12 9:00:00 Coreg 6.25 mg, PO No Longer [facility] Route: PO, Active 2011 Medical ONCE, Dosing Center Weight 67, kg, Start date: 07/17/12 14:49:00, Stop date: 07/17/12 14:49:00 Saline Flush 5 ml, Route: IVP No Longer [facility] 0.9% IVP, Drug Active 2011 Medical Form: INJ, Center Dosing Weight 67, kg, PRN, PRN Line Flush, Start date: 07/17/12 14:12:00, Duration: 30 day, Stop date: 08/16/12 14:11:00 nitroglycerin SL 0.4 mg, 1 SL No Longer [facility] Tab tab, Route: Active 2011 Medical SL, Drug Center form: TAB, Q5Min, Dosing Weight 67, kg, PRN Chest Pain, Start date: 07/17/12 14:12:00, Duration: 30 day, Stop date: 08/16/12 14:07:00 Coreg 6.25 mg, 1 PO No Longer [facility] tab, Route: Active 2011 Medical PO, Drug Center form: TAB, ONCE, Start date: 07/17/12 13:28:00, Stop date: 07/17/12 13:28:00 Coreg 6.25 mg, PO No Longer [facility] Route: PO, Active 2011 Medical Drug form: Center TAB, ONCE, Dosing Weight 67, kg, Start date: 07/17/12 8:46:00, Stop date: 07/17/12 8:46:00 magnesium 2 gm, 50 mL, IVPB No Longer Cody [facility] sulfate Route: IVPB, Active 2011 Medical Drug form: [place] INJ, ONCE, Dosing Weight 67, kg, Total dose=2 gm, Start date: 07/17/12 4:24:00, Duration: 1 doses or times, Stop date: 07/17/12 4:24:00 magnesium oxide 400 mg, 1 PO No Longer [facility] tab, Route: Active 2011 Medical PO, Drug Center form: TAB, ONCE, Dosing Weight 67, kg, Start date: 07/17/12 3:49:00, Stop date: 07/17/12 3:49:00 atorvastatin 80 mg, 1 tab, PO No Longer Valentin [facility] Route: PO, Active 2011 Medical Drug form: [place] TAB, QPM, Dosing Weight 82.273, kg, Start date: 07/16/12 17:00:00, Duration: 30 day, Stop date: 08/14/12 17:00:00 Protonix 40 mg, 1 tab, PO No Longer Valentin [facility] Route: PO, Active 2011 Medical Drug form: [place] ECTAB, Before Dinner, Dosing Weight 82.273, kg, Start date: 07/16/12 16:30:00, Duration: 30 day, Stop date: 08/14/12 16:30:00 heparin 2,000 unit, 2 IV No Longer Valentin [facility] mL, Route: Active 2011 Medical IV, Drug Center form: INJ, PRN, PRN Abnormal Lab Result, Start date: 07/16/12 11:34:00, Duration: 30 day, Stop date: 08/15/12 11:33:00 heparin 4,000 unit, 4 IV No Longer Valentin [facility] mL, Route: Active 2011 Medical IV, Drug Center form: INJ, PRN, PRN Abnormal Lab Result, Start date: 07/16/12 11:32:00, Duration: 30 day, Stop date: 08/15/12 11:31:00 Heparin - one 4,000 unit, 4 IV No Longer Michael [facility]dy time bolus for mL, Route: Active 2011 Medical ACS IV, Drug Center form: INJ, ONCE, Dosing Weight 82.273, kg, Priority: STAT, Start date: 07/16/12 11:09:00, Stop date: 07/16/12 11:09:00 Heparin - 25,000 unit, IV No Longer Siddiqui [facility]dy infusion (ACS 500 mL, Rate: Active 2011 Medical Protocol) Start at 13 Center heparin 25,000 units/kg/hr - units in D5W 500 adjust per mL Premix 25,000 ACS protocol, unit Dosing Weight 82.273, kg, Route: IV, Total Volume: 500 ml, Start date: 07/16/12 11:09:00, Duration: 30 day, Stop date: 08/15/12 11:08:00, Replace Every: 24 hr lisinopril 10 mg, 1 tab, PO No Longer Valentin [facility] Route: PO, Active 2011 Medical Drug form: Center TAB, Daily, Dosing Weight 82.273, kg, Start date: 07/16/12 9:00:00, Duration: 30 day, Stop date: 08/14/12 9:00:00 insulin glargine 20 unit, SUB-Q No Longer Cody [facility] Route: SUB-Q, Active 2011 Medical Drug form: Center INJ, Daily, Dosing Weight 82.273, kg, Start date: 07/16/12 9:00:00, Duration: 30 day, Stop date: 08/14/12 9:00:00 clopidogrel 75 mg, 1 tab, PO No Longer Valentin [facility] Route: PO, Active 2011 Medical Drug form: Center TAB, Daily, Dosing Weight 82.273, kg, Start date: 07/16/12 9:00:00, Duration: 30 day, Stop date: 08/14/12 9:00:00 citalopram 10 mg, 1 tab, PO No Longer Valentin [facility] Route: PO, Active 2011 Medical Drug form: Center TAB, Daily, Dosing Weight 82.273, kg, Start date: 07/16/12 9:00:00, Duration: 30 day, Stop date: 08/14/12 9:00:00 aspirin 325 mg 325 mg, 1 PO No Longer Valentin [facility] tablet tab, Route: Active 2011 Medical PO, Drug Center form: TAB, Daily, Dosing Weight 82.273, kg, Start date: 07/16/12 9:00:00, Duration: 30 day, Stop date: 08/14/12 9:00:00 docusate 100 mg, 1 PO No Longer [facility] cap, Route: Active 2011 Medical PO, Drug Center form: CAP, BID, Dosing Weight 82.273, kg, Start date: 07/16/12 9:00:00, Duration: 30 day, Stop date: 08/14/12 17:00:00 magnesium 2 gm, 50 mL, IVPB No Longer Valent[facility] [place] sulfate Route: IVPB, Active 2011 Medical Drug form: Center INJ, Q2H, Dosing Weight 82.273, kg, Total dose=4 gm, Start date: 07/16/12 8:00:00, Duration: 1 doses or times, Stop date: 07/16/12 10:00:00 magnesium 2 gm, 50 mL, IVPB No Longer [facility] sulfate Route: IVPB, Active 2011 Medical Drug form: Center INJ, ONCE, Dosing Weight 82.273, kg, Total dose=2 gm, Start date: 07/16/12 5:50:00, Duration: 1 doses or times, Stop date: 07/16/12 5:50:00 Coreg 12.5 mg, 1 PO No Longer [facility] tab, Route: Active 2011 Medical PO, Drug Center form: TAB, Q12H, Dosing Weight 82.273, kg, Start date: 07/15/12 21:00:00, Stop date: 08/14/12 9:00:00 heparin 5,000 unit, 1 SUB-Q No Longer Valentin 07/16[facility] mL, Route: Active 2011 Medical SUB-Q, Drug Center form: INJ, Q12H, Dosing Weight 82.273, kg, Start date: 07/15/12 21:00:00, Duration: 30 day, Stop date: 08/14/12 9:00:00 magnesium 2 gm, 50 mL, IVPB No Longer [facility] sulfate Route: IVPB, Active 2011 Medical Drug form: Center INJ, ONCE, Dosing Weight 82.273, kg, Total dose=2 gm, Start date: 07/15/12 19:04:00, Duration: 1 doses or times, Stop date: 07/15/12 19:04:00 nitroglycerin 0.4 mg, 1 SL No Longer Valent[facility] [place] 0.4 mg tab, Route: Active 2011 Medical sublingual SL, Drug Center tablet form: TAB, Q5Min, Dosing Weight 82.273, kg, PRN Chest Pain, Start date: 07/15/12 18:15:00, Duration: 30 day, Stop date: 08/14/12 18:14:00 insulin aspart 4 unit, 0.04 SUB-Q No Longer Valentin [facility] mL, Route: Active 2011 Medical SUB-Q, Drug Center form: SOLN, Bedtime, Dosing Weight 82.273, kg, PRN Blood Glucose Results, Start date: 07/15/12 18:15:00, Duration: 30 day, Stop date: 08/14/12 18:14:00 glucagon 1 mg, Route: IM No Longer Valentin [facility] IM, Drug Active 2011 Medical form: Center PDR/INJ, PRN, Dosing Weight 82.273, kg, PRN Blood Glucose Results, Start date: 07/15/12 18:15:00, Duration: 30 day, Stop date: 08/14/12 18:14:00 Dextrose 50% 12.5 gm, 25 IVP No Longer Valentin [place] Syringe mL, Route: Active 2011 Medical IVP, Drug Center Form: INJ, Dosing Weight 82.273, kg, PRN, PRN Blood Glucose Results, Start date: 07/15/12 18:15:00, Duration: 30 day, Stop date: 08/14/12 18:14:00 [place] 10/325 1 tab, Route: PO No Longer Valentin [facility] oral tablet PO, Drug Active 2011 Medical Form: TAB, Center Dosing Weight 82.273, kg, Q4H, PRN as needed for pain, Start date: 07/15/12 18:13:00, Duration: 30 day, Stop date: 08/14/12 18:12:00 acetaminophen 650 mg, 2 PO No Longer Valentin [facility] tab, Route: Active 2011 Medical PO, Drug Center form: TAB, Q4H, Dosing Weight 82.273, kg, PRN Pain/Fever, Start date: 07/15/12 18:09:00, Duration: 30 day, Stop date: 08/14/12 18:08:00 atorvastatin 80 mg, 1 tab, PO No Longer [facility] [place] Route: PO, Active 2011 Medical Drug form: [place] TAB, QPM, Dosing Weight 88.182, kg, Start date: 07/15/12 17:00:00, Duration: 30 day, Stop date: 08/13/12 17:00:00 Lopressor 5 mg, 5 mL, IV No Longer Valentin [place] Route: IV, Active 2011 Medical Drug form: [place] INJ, ONCE, Start date: 07/15/12 16:52:00, Stop date: 07/15/12 16:52:00 metoprolol 5 5 mg, Route: IVP No Longer Valentin [facility] mg/5 ml INJ IVP, Drug Active 2011 Medical form: INJ, Center Q2MIN, Dosing Weight 82.273, kg, PRN Other -See Comment, Start date: 07/15/12 16:41:00, Duration: 30 day, Stop date: 08/14/12 16:40:00 NS (Bolus) IV 500 mL, Rate: IV No Longer Valentin [place] 500 mL 500 ml/hr, Active 2011 Medical Infuse over: Center 1 hr, Route: IV, kg, Total Volume: 500, Priority: STAT, Start date: 07/15/12 16:41:00, Duration: 1 doses or times, Stop date: 07/15/12 17:40:00, Bolus Dose
B olus Dose Protonix 40 mg, 1 tab, PO No Longer [facility] [place] Route: PO, Active 2011 Medical Drug form: [place] ECTAB, Before Dinner, Dosing Weight 88.182, kg, Start date: 07/15/12 16:30:00, Duration: 30 day, Stop date: 08/13/12 16:30:00 Lopressor 5 mg, 5 mL, IV No Longer Valentin [place] Route: IV, Active 2011 Medical Drug form: [place] INJ, ONCE, Start date: 07/15/12 16:26:00, Stop date: 07/15/12 16:26:00 [place] 10/325 1 tab, PO, PO On Hold [place] oral tablet Q4H, PRN, 90 2011 Medical tab, Pain Center Score 6-10, Substitution Allowed, Maintenance, TAB Protonix 40 mg 40 mg, 1 tab, PO On Hold [place] 07/15[facility] oral enteric PO, Before 2011 Medical coated tablet Dinner, 30 [place] tab, Substitution Allowed, ECTAB lisinopril 10 mg 10 mg, 1 tab, PO On Hold [place] [facility] oral tablet PO, Daily, 30 2011 Medical tab, Center Substitution Allowed, TAB insulin glargine 15 unit, 0.15 SUB-Q On Hold [place] [facility] 100 units/mL mL, SUB-Q, 2011 Medical subcutaneous Daily, 1 mL, [place] solution Substitution Allowed, SOLN heparin 5000 See Active [facility] units/mL Instructions, 2011 Medical injectable SUB-Q Q8H, 1 Center solution syr, Substitution Allowed, SOLN
SUB- Q Q8H clopidogrel 75 75 mg, 1 tab, PO On Hold [place] [facility] mg oral tablet PO, Daily, 30 2011 Medical tab, Center Substitution Allowed, TAB citalopram 10 mg 10 mg, 1 tab, PO On Hold [place] 07/15[facility] [place] oral tablet PO, Daily, 30 2011 Medical tab, Center Substitution Allowed, TAB Coreg 3.125 mg 3.125 mg, 1 PO On Hold [place] 07/15[facility] oral tablet tab, PO, 2011 Medical Q12H, 60 tab, Center Substitution Allowed, TAB atorvastatin 80 80 mg, 1 tab, PO On Hold [place] 07/15[facility] mg oral tablet PO, QPM, 30 2011 Medical tab, Center Substitution Allowed, TAB aspirin 325 mg 325 mg, 1 PO On Hold [place] 07/15[facility] [place] tablet tab, PO, 2011 Medical Daily, 30 Center tab, Substitution Allowed, TAB senna 8.6 mg 8.6 mg, 1 PO No Longer [facility] oral tablet tab, Route: Active 2011 Medical PO, Drug Center Form: TAB, Dosing Weight 88.182, kg, QNoon, Start date: 07/15/12 12:00:00, Duration: 30 day, Stop date: 08/13/12 12:00:00 Dextrose 50% 25 gm, 50 mL, IVP No Longer [facility] Syringe Route: IVP, Active 2011 Medical Drug Form: Center INJ, Dosing Weight 88.182, kg, PRN, PRN Blood Glucose Results, Start date: 07/15/12 9:11:00, Duration: 30 day, Stop date: 08/14/12 9:10:00 Dextrose 50% 12.5 gm, 25 IVP No Longer [facility] Syringe mL, Route: Active 2011 Medical IVP, Drug Center Form: INJ, Dosing Weight 88.182, kg, PRN, PRN Blood Glucose Results, Start date: 07/15/12 9:10:00, Duration: 30 day, Stop date: 08/14/12 9:09:00 influenza virus 0.5 ml, IM No Longer SYSTEM OPID vaccine, Route: IM, Active 2011 Julian, inactivated Drug Form: [facility] INJ, Start Medical date: [place] 07/15/12 9:00:00, Stop date: 07/15/12 9:00:00 lisinopril 10 mg, 1 tab, PO No Longer [facility] Route: PO, Active 2011 Medical Drug form: Center TAB, Daily, Dosing Weight 88.182, kg, Start date: 07/15/12 9:00:00, Duration: 30 day, Stop date: 08/13/12 9:00:00 insulin glargine 15 unit, 0.15 SUB-Q No Longer [facility] mL, Route: Active 2011 Medical SUB-Q, Drug Center form: INJ, Daily, Dosing Weight 88.182, kg, Start date: 07/15/12 9:00:00, Duration: 30 day, Stop date: 08/13/12 9:00:00 clopidogrel 75 mg, 1 tab, PO No Longer [facility] Route: PO, Active 2011 Medical Drug form: Center TAB, Daily, Dosing Weight 88.182, kg, Start date: 07/15/12 9:00:00, Duration: 30 day, Stop date: 08/13/12 9:00:00 citalopram 10 mg, 1 tab, PO No Longer [facility] Route: PO, Active 2011 Medical Drug form: Center TAB, Daily, Dosing Weight 88.182, kg, Start date: 07/15/12 9:00:00, Duration: 30 day, Stop date: 08/13/12 9:00:00 aspirin 325 mg 325 mg, 1 PO No Longer [facility] tablet tab, Route: Active 2011 Medical PO, Drug Center form: TAB, Daily, Dosing Weight 88.182, kg, Start date: 07/15/12 9:00:00, Duration: 30 day, Stop date: 08/13/12 9:00:00 atorvastatin 10 10 mg, 1 tab, PO No Longer [facility] mg oral tablet PO, Daily, 30 Active 2011 Medical tab, Center Substitution Allowed, TAB atenolol 50 mg 50 mg, 1 tab, PO No Longer [facility] oral tablet PO, Daily, 30 Active 2011 Medical tab, Center Substitution Allowed glimepiride 4 mg Substitution No Longer [facility] oral tablet Allowed Active 2011 [facility] hydrochlorothiaz 1 tab, PO, PO No Longer [facility] juno-losartan 25 Daily, 30 Active 2011 Medical mg-100 mg oral tab, Center tablet Substitution Allowed, Maintenance, TAB aspirin 81 mg 81 mg, 1 tab, PO No Longer [facility] tablet, chewable PO, Daily, Active 2011 Medical tab, Center Substitution Allowed, CHE[place]AB amLODipine 5 mg 5 mg, 1 tab, PO No Longer [facility] oral tablet PO, Daily, 30 Active 2011 Medical tab, Center Substitution Allowed, TAB lisinopril 30 mg Daily, No Longer [facility] oral tablet Substitution Active 2011 Medical Allowed Center NovoLog Mix Substitution No Longer [facility] 70/30 FlexPen Allowed Active 2011 Medical [place] heparin 5000 5,000 unit, 1 SUB-Q No Longer [facility] units/mL mL, Route: Active 2011 Medical injectable SUB-Q, Drug Center solution form: INJ, Q8H, Dosing Weight 88.182, kg, Start date: 07/15/12 0:00:00, Duration: 30 day, Stop date: 08/13/12 16:00:00 Insulin regular 1 unit, 0.01 SUB-Q No Longer [facility] mL, Route: Active 2011 Medical SUB-Q, Drug Center form: SOLN, TID-Before Meals, Dosing Weight 82.273, kg, PRN Blood Glucose Results, Start date: 07/14/12 23:06:00, Duration: 30 day, Stop date: 08/13/12 23:05:00 docusate 100 mg, 1 PO No Longer [facility] cap, Route: Active 2011 Medical PO, Drug Center form: CAP, Q12H, Dosing Weight 88.182, kg, Start date: 07/14/12 21:00:00, Duration: 30 day, Stop date: 08/13/12 9:00:00 Coreg 3.125 mg, 1 PO No Longer [facility] tab, Route: Active 2011 Medical PO, Drug Center form: TAB, Q12H, Dosing Weight 88.182, kg, Start date: 07/14/12 21:00:00, Duration: 30 day, Stop date: 08/13/12 9:00:00 nitroglycerin 0.4 mg, 1 SL No Longer [facility] 0.4 mg tab, Route: Active 2011 Medical sublingual SL, Drug Center tablet form: TAB, Q5Min, Dosing Weight 88.182, kg, PRN Chest Pain, Start date: 07/14/12 17:50:00, Duration: 30 day, Stop date: 08/13/12 17:49:00 bisacodyl 10 mg, 1 [place] No Longer [facility] supp, Route: Active 2011 Medical [place], Drug Center form: SUPP, Daily, Dosing Weight 88.182, kg, PRN Constipation, Start date: 07/14/12 17:50:00, Duration: 30 day, Stop date: 08/13/12 17:49:00 acetaminophen 650 mg, 2 PO No Longer [facility] tab, Route: Active 2011 Medical PO, Drug Center form: TAB, Q6H, Dosing Weight 88.182, kg, PRN Pain, Start date: 07/14/12 17:49:00, Duration: 30 day, Stop date: 08/13/12 17:48:00 Grimes 10/325 1 tab, Route: PO No Longer [facility] oral tablet PO, Drug Active 2011 Medical Form: TAB, Center Dosing Weight 88.182, kg, Q4H, PRN Pain Score 6-10, Start date: 07/14/12 17:48:00, Duration: 30 day, Stop date: 08/13/12 17:47:00 clopidogrel 75 75 mg, 1 tab, PO No Longer [place] mg oral tablet PO, Daily, 30 Active 2011 Medical tab, Center Substitution Allowed, TAB Protonix 40 mg 40 mg, 1 tab, PO No Longer [place] oral enteric PO, Before Active 2011 Medical coated tablet Dinner, 30 Center tab, Substitution Allowed, ECTAB insulin regular 7 unit, 0.07 SUB-Q [facility] [place] [facility] mL, SUB-Q, Active 2011 Medical recombinant 100 PRN, PRN, 1 Center units/mL mL, Abnormal injectable Lab Result, solution Substitution Allowed, SOLN insulin regular 5 unit, 0.05 SUB-Q [facility] Long[facility] [place] human mL, SUB-Q, Active 2011 Medical recombinant 100 PRN, PRN, 1 Center units/mL mL, Abnormal injectable Lab Result, solution Substitution Allowed, SOLN insulin regular 3 unit, 0.03 SUB-Q [facility] Long[facility] [place] human mL, SUB-Q, Active 2011 Medical recombinant 100 PRN, PRN, 1 Center units/mL mL, Abnormal injectable Lab Result, solution Substitution Allowed, SOLN insulin glargine 15 unit, 0.15 SUB-Q [facility] Longer [facility] [place] 100 units/mL mL, SUB-Q, Active 2011 Medical subcutaneous Daily, 1 mL, Center solution Substitution Allowed, SOLN heparin 5000 See No Longer [facility] [place] units/mL Instructions, Active 2011 Medical injectable 5000 SUB-Q Center solution Q8H, 1 vial, Substitution Allowed, SOLN
5000 SUB-Q Q8H Core[place] 3.125 mg 3.125 mg, 1 PO [facility] Longer [facility] [place] oral tablet tab, PO, Active 2011 Medical Q12H, 60 tab, Center Substitution Allowed, TAB lisinopril 10 mg 10 mg, 1 tab, PO No Longer [place] oral tablet PO, Daily, 30 Active 2011 Medical tab, Center Substitution Allowed, TAB citalopram 10 mg 10 mg, 1 tab, PO No Longer [place] oral tablet PO, Daily, 30 2011 Medical tab, Center Substitution Allowed, TAB atorvastatin 80 80 mg, 1 tab, PO No Longer [place] mg oral tablet PO, QPM, 30 2011 Medical tab, Center Substitution Allowed, TAB aspirin 325 mg 325 mg, 1 PO No Longer [place] tablet tab, PO, Active 2011 Medical Daily, 30 Center tab, Substitution Allowed, TAB magnesium 2 gm, 50 mL, IVPB No Longer [facility] [place] sulfate Route: IVPB, 2011 Medical Drug form: [place] INJ, Q2H, Dosing Weight 88.182, kg, Start date: 07/14/12 14:00:00, Duration: 2 doses or times, Stop date: 07/14/12 16:00:00, For Mg=1.5 - 1.7 mg/dL
For Mg=1.5 - 1.7 mg/dL metoprolol 5 5 mg, 5 mL, IV No Longer Mike-Amanda [place] mg/5 ml INJ Route: IV, 2011 Medical Drug form: [place] INJ, ONCE, Dosing Weight 88.182, kg, Start date: 07/14/12 6:26:00, Stop date: 07/14/12 6:26:00 Protonix 40 mg, 1 tab, PO No Longer [place] [place] Route: PO, 2011 Medical Drug form: [place] ECTAB, Before Dinner, Dosing Weight 88.182, kg, Start date: 07/13/12 16:30:00, Duration: 30 day, Stop date: 08/11/12 16:30:00 lisinopril 10 mg, 1 tab, PO No Longer Siddiqui [place] Route: PO, Active 2011 Medical Drug form: [place] TAB, Daily, Dosing Weight 88.182, kg, Start date: 07/13/12 9:00:00, Duration: 30 day, Stop date: 08/11/12 9:00:00 magnesium 2 gm, 50 mL, IVPB No Longer [facility]Amand[facility] [place] sulfate Route: IVPB, 2011 Medical Drug form: [place] INJ, ONCE, Dosing Weight 88.182, kg, Start date: 07/13/12 7:19:00, Duration: 1 doses or times, Stop date: 07/13/12 7:19:00, For Mg=1.8 - 2 mg/dL
For Mg=1.8 - 2 mg/dL calcium 1,000 mg, 10 IVPB No Longer Mike-Amanda Reddy gluconate + mL, Route: Active 2011 [facility] Sodium Chloride IVPB, ONCE, [place] 0.9% IV 50 mL Dosing Weight 88.182, kg, Start date: 07/13/12 7:18:00, Duration: 1 doses or times, Stop date: 07/13/12 7:18:00, For Ionized Ca=1 - 1.03 mmol/L or Corrected Ca=8 - 8.5mg/dL
For Ionized Ca=1 - 1.03 mmol/L or Corrected Ca=8 - 8.5mg/dL metoprolol 5 5 mg, 5 mL, IV No Longer Cody Reddy mg/5 ml INJ Route: IV, Active 2011 Medical Drug form: [place] INJ, ONCE, Dosing Weight 88.182, kg, Start date: 07/13/12 5:26:00, Stop date: 07/13/12 5:26:00 magnesium oxide 400 mg, 1 PO No Longer Cody Reddy tab, Route: Active 2011 Medical PO, Drug Center form: TAB, ONCE, Dosing Weight 88.182, kg, Start date: 07/13/12 5:24:00, Stop date: 07/13/12 5:24:00 Sodium Chloride 250 mL, Rate: IV No Longer Siddiqui Reddy 0.9% (Bolus) IV 250 ml/hr, Active 2011 Medical 250 mL Infuse over: Center 1 hr, Route: IV, kg, Total Volume: 250, Bolus Dose, Priority: STAT, Start date: 07/12/12 11:54:00, Duration: 1 doses or times, Stop date: 07/12/12 12:53:00 Benadryl 25 mg, 1 cap, PO No Longer Mike-Amanda Reddy Route: PO, Active 2011 Medical Drug form: [place] CAP, TID, Dosing Weight 88.182, kg, PRN Itching, Start date: 07/12/12 11:50:00, Duration: 30 day, Stop date: 08/11/12 11:49:00 Coreg 3.125 mg, 1 PO No Longer Siddiqui [place] tab, Route: Active 2011 Medical PO, Drug Center form: TAB, Q12H, Dosing Weight 88.182, kg, Start date: 07/12/12 10:30:00, Duration: 30 day, Stop date: 08/11/12 6:00:00 Colace 50 mg 50 mg, 1 cap, PO No Longer Siddiqui [place] oral capsule Route: PO, Active 2011 Medical Drug form: Center CAP, BID, Dosing Weight 88.182, kg, PRN Constipation, Start date: 07/12/12 9:31:00, Duration: 30 day, Stop date: 08/11/12 9:30:00 Sodium Chloride 250 mL, Rate: IV No Longer Siddiqui [place] 0.9% (Bolus) IV 250 ml/hr, Active 2011 Medical 250 mL Infuse over: Center 1 hr, Route: IV, kg, Total Volume: 250, Bolus Dose, Priority: STAT, Start date: 07/12/12 9:28:00, Duration: 1 doses or times, Stop date: 07/12/12 10:27:00 calcium 2,000 mg, 20 IVPB No Longer Mike-Amanda [place] gluconate + mL, Route: Active 2011 Medical Sodium Chloride IVPB, ONCE, [place] 0.9% IV 80 mL Dosing Weight 88.182, kg, Start date: 07/12/12 7:18:00, Stop date: 07/12/12 7:18:00 Chloraseptic 1 spray, MUCOUS No Longer [place] 1.4% spray Route: MUCOUS MEM Active 2011 Medical MEM, Q4H, Center Drug form: SPRY PRN Sore Throat, Start date: 07/12/12 1:37:00, Stop date: 08/11/12 1:36:00 heparin 5000 5,000 unit, 1 SUB-Q No Longer Shayne [place] units/mL mL, Route: Active 2011 Medical injectable SUB-Q, Drug Center solution form: INJ, Q8H, Dosing Weight 88.182, kg, Start date: 07/11/12 16:00:00, Duration: 30 day, Stop date: 08/10/12 8:00:00 lactulose 10 gm, 15 ml, PO No Longer [facility] Route: PO, Active 2011 Medical Drug Form: [place] SYRP, Dosing Weight 88.182, kg, Daily, PRN Constipation, Start date: 07/11/12 12:02:00, Duration: 30 day, Stop date: 08/10/12 12:01:00 normal saline 250 mL, Rate: IV No Longer Mike[facility] 0.9% IV 250 mL 250 ml/hr, Active 2011 Medical Infuse over: Center 1 hr, Route: IV, kg, Total Volume: 250, Start date: 07/11/12 11:59:00, Duration: 1 doses or times, Stop date: 07/11/12 12:58:00 normal saline 1,000 mL, IV No Longer Mike[facility]a [facility] 0.9% IV 1,000 mL Rate: 120 Active 2011 Medical ml/hr, Infuse Center over: 8.3 hr, Route: IV, kg, Total Volume: 1,000, Start date: 07/11/12 9:28:00, Stop date: 08/10/12 9:27:00 atorvastatin 80 mg, 1 tab, PO No Longer [facility] Route: PO, Active 2011 Medical Drug form: [place] TAB, QPM, Dosing Weight 88.182, kg, Start date: 07/10/12 17:00:00, Duration: 30 day, Stop date: 08/08/12 17:00:00 Protonix 40 mg, Route: IVP No Longer [facility] IVP, Drug Active 2011 Medical form: INJ, [place] Before Dinner, Dosing Weight 88.182, kg, Patient is NPO, Start date: 07/10/12 16:30:00, Duration: 30 day, Stop date: 08/08/12 16:30:00 ondansetron 4 mg, 2 mL, IVP No Longer [place] Route: IVP, Active 2011 Medical Drug form: [place] INJ, Q4H, Dosing Weight 88.182, kg, PRN Nausea & Vomiting, Start date: 07/10/12 13:21:00, Duration: 30 day, Stop date: 08/09/12 13:20:00 Integrilin 75 mg 75 mg, 100 IV No Longer Shayne [place] in 100 ml premix mL, Rate: Active 2011 Medical IV 75 mg Titrate, Center Dosing Weight 88.182, kg, Route: IV, Total Volume: 100 mL, Start date: 07/10/12 10:43:00, Duration: 2 day, Stop date: 07/12/12 10:42:00, Replace Every: 24 hr citalopram 10 mg, 1 tab, PO No Longer [facility] Route: PO, Active 2011 Medical Drug form: Center TAB, Daily, Dosing Weight 88.182, kg, Start date: 07/10/12 9:00:00, Duration: 30 day, Stop date: 08/08/12 9:00:00 aspirin 325 mg 325 mg, 1 PO No Longer Mike[facility] tablet tab, Route: Active 2011 Medical PO, Drug Center form: TAB, Daily, Dosing Weight 88.182, kg, Start date: 07/10/12 9:00:00, Duration: 30 day, Stop date: 08/08/12 6:00:00 atenolol 100 mg 100 mg, 1 PO No Longer Siddiqui [facility] oral tablet tab, Route: Active 2011 Medical PO, Drug Center form: TAB, Daily, Dosing Weight 88.182, kg, Start date: 07/10/12 9:00:00, Duration: 30 day, Stop date: 08/08/12 9:00:00 insulin glargine 15 unit, 0.15 SUB-Q No Longer [facility] mL, Route: Active 2011 Medical SUB-Q, Drug Center form: INJ, Daily, Dosing Weight 88.182, kg, Start date: 07/10/12 9:00:00, Duration: 30 day, Stop date: 08/08/12 9:00:00 clopidogrel 75 mg, 1 tab, PO No Longer [facility]a [facility] Route: PO, Active 2011 Medical Drug form: Center TAB, Daily, Dosing Weight 88.182, kg, Start date: 07/10/12 9:00:00, Duration: 30 day, Stop date: 08/08/12 6:00:00 lisinopril 10 mg, 1 tab, PO No Longer Mike[facility]a [facility] Route: PO, Active 2011 Medical Drug form: [place] TAB, Daily, Dosing Weight 88.182, kg, Start date: 07/10/12 9:00:00, Duration: 30 day, Stop date: 08/08/12 9:00:00 magnesium 2 gm, 50 mL, IVPB No Longer Mike-Amanda [place] sulfate Route: IVPB, Active 2011 Medical Drug form: [place] INJ, Q2H, Dosing Weight 88.182, kg, Start date: 07/10/12 8:00:00, Duration: 3 doses or times, Stop date: 07/10/12 12:00:00, For Mg=1.0 - 1.4 mg/dL
For Mg=1.0 - 1.4 mg/dL morphine Sulfate 2 mg, Route: IVP No Longer [facility] IVP, ONCE, Active 2011 Medical Dosing Weight [place] 88.182, kg, Start date: 07/10/12 7:44:00, Stop date: 07/10/12 7:44:00 morphine Sulfate 2 mg, 0.5 mL, IVP No Longer [facility]en [facility] Route: IVP, Active 2011 Medical Drug form: [place] INJ, Q3H, Dosing Weight 88.182, kg, PRN Pain, Start date: 07/10/12 7:33:00, Stop date: 08/09/12 7:32:00 niCARdipine 40 40 mg, 200 IV No Longer [place] mg in NS 200 ml mL, Rate: Active 2011 Medical IV 40 mg Titrate, [place] Dosing Weight 88.182, kg, Route: IV, Total Volume: 200 mL, Duration: 30 day, Stop date: 08/09/12 7:14:00, Replace Every: 24 hr Cardene 40 mg in 40 mg, 200 IV No Longer Shayne [facility] NS 200 ml IV 40 mL, Rate: Active 2011 Medical mg Titrate, Center Dosing Weight 88.182, kg, Route: IV, Total Volume: 200 mL, Duration: 30 day, Stop date: 08/09/12 7:07:00, Replace Every: 24 hr Dextrose 50% 12.5 gm, 25 IVP No Longer Mike[facility]Amanda [facility] Syringe mL, Route: Active 2011 Medical IVP, Drug Center Form: INJ, Dosing Weight 88.182, kg, PRN, PRN Blood Glucose Results, Start date: 07/10/12 6:32:00, Duration: 30 day, Stop date: 08/09/12 6:31:00 glucagon 1 mg, Route: IM No Longer Mike[facility]Amanda [facility] IM, Drug Active 2011 Medical form: [place] PDR/INJ, PRN, Dosing Weight 88.182, kg, PRN Blood Glucose Results, Start date: 07/10/12 6:32:00, Duration: 30 day, Stop date: 08/09/12 6:31:00 amLODipine 5 mg, 1 tab, PO No Longer Siddiqui [facility] Route: PO, Active 2011 Medical Drug form: [place] TAB, Daily, Dosing Weight 88.182, kg, Start date: 07/10/12 6:14:00, Duration: 30 day, Stop date: 08/08/12 9:00:00 lisinopril 10 mg, 1 tab, PO No Longer [facility] Route: PO, Active 2011 Medical Drug form: [place] TAB, ONCE, Dosing Weight 88.182, kg, Start date: 07/10/12 4:10:00, Stop date: 07/10/12 4:10:00 Procardia XL 60 mg, 1 tab, PO No Longer Mike-Amanda [facility] Route: PO, Active 2011 Medical Drug form: [place] ERTAB, ONCE, Dosing Weight 88.182, kg, Start date: 07/10/12 4:02:00, Stop date: 07/10/12 4:02:00 morphine Sulfate 2 mg, 0.5 mL, IVP No Longer Mike-Amanda [facility] Route: IVP, Active 2011 Medical Drug form: [place] INJ, ONCE, Dosing Weight 88.182, kg, Start date: 07/10/12 2:35:00, Stop date: 07/10/12 2:35:00 metoprolol 25 mg, 1 tab, PO No Longer Mike-Amanda [facility] tartrate Route: PO, Active 2011 Medical Drug form: Center TAB, Q6H, Dosing Weight 88.182, kg, Start date: 07/10/12 0:00:00, Duration: 30 day, Stop date: 08/08/12 18:00:00 morphine Sulfate 1 mg, Route: IVP No Longer [facility] IVP, ONCE, Active 2011 Medical Dosing Weight Center 88.182, kg, Start date: 07/09/12 23:59:00, Stop date: 07/09/12 23:59:00 atenolol 50 mg 50 mg, 1 tab, PO No Longer [facility] oral tablet Route: PO, Active 2011 Medical Drug form: Center TAB, ONCE, Dosing Weight 88.182, kg, Start date: 07/09/12 21:03:00, Stop date: 07/09/12 21:03:00 lisinopril 10 mg, 1 tab, PO No Longer Mike-Amanda [facility] Route: PO, Active 2011 Medical Drug form: [place] TAB, ONCE, Dosing Weight 88.182, kg, Start date: 07/09/12 21:02:00, Stop date: 07/09/12 21:02:00 Saline Flush 5 ml, Route: IVP No Longer Leigha [facility] 0.9% IVP, Drug Active 2011 Medical Form: INJ, Center Dosing Weight 88.182, kg, Q12H, Start date: 07/09/12 21:00:00, Duration: 30 day, Stop date: 08/08/12 9:00:00 famotidine 20 mg, 1 tab, PO No Longer Cody [facility] Route: PO, Active 2011 Medical Drug form: Center TAB, Q12H, Dosing Weight 88.182, kg, Start date: 07/09/12 21:00:00, Duration: 30 day, Stop date: 08/08/12 9:00:00 nitroglycerin SL 0.4 mg, 1 SL No Longer Mike-Amanda [facility] Tab tab, Route: Active 2011 Medical SL, Drug Center form: TAB, Q5Min, Dosing Weight 88.182, kg, PRN Chest Pain, Start date: 07/09/12 20:20:00, Duration: 3 doses or times, Stop date: Limited # of times Saline Flush 5 ml, Route: IVP No Longer Leigha [place] 0.9% IVP, Drug Active 2011 Medical Form: INJ, Center Dosing Weight 88.182, kg, PRN, PRN Line Flush, Start date: 07/09/12 19:20:00, Duration: 30 day, Stop date: 08/08/12 19:19:00 nitroglycerin SL 0.4 mg, 1 SL No Longer Leigha [facility] Tab tab, Route: Active 2011 Medical SL, Drug Center form: TAB, Q5Min, Dosing Weight 88.182, kg, PRN Chest Pain, Start date: 07/09/12 19:20:00, Duration: 3 doses or times, Stop date: 08/09/12 0:00:00 aspirin 325 mg 325 mg, 4.01 PO No Longer Leigha [facility] tablet tab, Route: Active 2011 Medical PO, Drug Center form: CHEWTAB, ONCE, Dosing Weight 88.182, kg, Start date: 07/09/12 19:20:00, Stop date: 07/09/12 19:20:00 acetaminophen 650 mg, 20.3 PO No Longer Fazakerly [place] mL, Route: Active 2011 Medical PO, Drug Center form: LIQ, Q8H, Dosing Weight 88.182, kg, PRN Pain/Fever, Start date: 07/09/12 16:54:00, Duration: 30 day, Stop date: 08/08/12 16:53:00 labetalol 10 mg, 2 mL, IVP No Longer La [facility] Route: IVP, Active 2011 Medical Drug form: Center INJ, Q15Min, Dosing Weight 88.182, kg, PRN Hypertension, Start date: 07/09/12 16:21:00, Duration: 3 doses or times, Stop date: Limited # of times Dextrose 50% 25 gm, 50 mL, IVP No Longer Dawson [facility] Syringe Route: IVP, Active 2011 Medical Drug Form: Center INJ, Dosing Weight 88.182, kg, PRN, PRN Abnormal Lab Result, Start date: 07/08/12 21:55:00, Duration: 30 day, Stop date: 08/07/12 21:54:00 insulin regular 3 unit, 0.03 SUB-Q No Longer Dawson [facility] human mL, Route: Active 2011 Medical recombinant 100 SUB-Q, Drug Center units/mL form: SOLN, injectable PRN, Dosing solution Weight 88.182, kg, PRN Abnormal Lab Result, Start date: 07/08/12 21:55:00, Duration: 30 day, Stop date: 08/07/12 21:54:00 acetaminophen-ox 1 tab, Route: PO No Longer Mike-Amanda [place] ycodone 325 mg-5 PO, Drug Active 2011 Medical mg oral tablet Form: TAB, Center Q4H, PRN Pain Score 6-10, Start date: 07/08/12 21:03:00, Stop date: 08/07/12 21:02:00 Saline Flush 5 ml, Route: IVP No Longer Gloria [facility] 0.9% IVP, Drug Active 2011 Medical Form: INJ, Center Dosing Weight 88.182, kg, Q12H, Start date: 07/07/12 21:00:00, Duration: 30 day, Stop date: 08/06/12 9:00:00 senna 8.6 mg, 1 PO No Longer Gloria [facility] tab, Route: Active 2011 Medical PO, Drug Center Form: TAB, Dosing Weight 88.182, kg, Q12H, Start date: 07/07/12 21:00:00, Duration: 30 day, Stop date: 08/06/12 9:00:00 docusate sodium 100 mg, 1 PO No Longer Gloria [facility] 100 mg oral cap, Route: Active 2011 Medical capsule PO, Drug Center form: CAP, Q12H, Dosing Weight 88.182, kg, Start date: 07/07/12 21:00:00, Duration: 30 day, Stop date: 08/06/12 9:00:00 cefazolin (SCIP) 1 gm, Route: IVPB No Longer Gloria [facility] IVPB, Drug Active 2011 Medical form: Center PDR/INJ, ABXQ8H, Dosing Weight 88.182, kg, Start date: 07/07/12 20:30:00, Duration: 3 doses or times, Stop date: 07/08/12 12:30:00 Percocet 10/325 2 tab, Route: PO No Longer Dawson [place] oral tablet PO, Drug Active 2011 Medical Form: TAB, Center Dosing Weight 88.182, kg, Q4H, PRN Pain, Start date: 07/07/12 20:03:00, Duration: 30 day, Stop date: 08/06/12 20:02:00 atorvastatin 10 10 mg, 1 tab, PO No Longer [place] mg oral tablet PO, Daily, 30 Active 2011 Medical tab, Center Substitution Allowed, TAB amLODipine 5 mg, PO, PO No Longer Mike-Amanda [place] Daily, Active 2011 Medical Substitution Center Allowed cefazolin (SCIP) 1 gm, Route: IVPB No Longer Gloria [place] IVPB, Drug Active 2011 Medical form: Center PDR/INJ, ABXQ8H, Dosing Weight 88.182, kg, Start date: 07/07/12 16:00:00, Duration: 3 doses or times, Stop date: 07/08/12 8:00:00 ondansetron 4 mg, 2 mL, [facility] Route: IVP, Active 2011 Medical Drug form: [place] INJ, ONCE, Dosing Weight 88.182, kg, PRN Nausea & Vomiting, Start date: 07/07/12 13:36:00 labetalol 5 mg, Route: [facility] IVP, Q5Min, Active 2011 Medical Dosing Weight Center 88.182, kg, PRN Elevated BP, Start date: 07/07/12 13:36:00, Duration: 5 doses or times, Stop date: Limited # of times hydrALAZINE 5 mg, 0.[address] [facility] mL, Route: Active 2011 Medical IVP, Drug Center form: INJ, Q5Min, Dosing Weight 88.182, kg, PRN Elevated BP, Start date: 07/07/12 13:36:00, Duration: 4 doses or times, Stop date: 07/08/12 0:00:00 flumazenil 0.2 mg, 2 mL, IVP No Longer [facility] [place] Route: IVP, Active 2011 Medical Drug form: [place] INJ, PRN, Dosing Weight 88.182, kg, PRN Benzodiazepin e Reversal, Initial dose, Start date: 07/07/12 13:36:00, Duration: 30 day, Stop date: 08/06/12 13:35:00 naloxone 0.04 mg, 0.1 IVP No Longer [facility] [place] mL, Route: Active 2011 Medical IVP, Drug Center form: INJ, Q2MIN, Dosing Weight 88.182, kg, PRN Narcotic Reversal, Start date: 07/07/12 13:36:00, Duration: 8 doses or times, Stop date: 07/08/12 0:00:00 hydromorphone 0.5 mg, IVP No Longer [facility] Route: IVP, Active 2011 Medical Q5Min, Dosing Center Weight 88.182, kg, PRN Pain Score 4-6, Start date: 07/07/12 13:36:00, Duration: 5 doses or times, Stop date: Limited # of times Saline Flush 5 ml, Route: IVP No Longer Gloria [place] 0.9% IVP, Drug Active 2011 Medical Form: INJ, Center Dosing Weight 88.182, kg, PRN, PRN Line Flush, Start date: 07/07/12 13:30:00, Duration: 30 day, Stop date: 08/06/12 13:29:00 ondansetron 4 mg, 2 mL, IVP No Longer Cody [place] Route: IVP, Active 2011 Medical Drug form: [place] INJ, Q8H, Dosing Weight 88.182, kg, PRN Nausea & Vomiting, Start date: 07/07/12 13:30:00, Duration: 30 day, Stop date: 08/06/12 13:29:00 tramadol 50 mg, 1 tab, PO No Longer Fazakerly [place] Route: PO, Active 2011 Medical Drug form: [place] TAB, Q4H, Dosing Weight 88.182, kg, PRN Pain Score 1-3, Start date: 07/07/12 13:30:00, Duration: 30 day, Stop date: 08/06/12 13:29:00 morphine Sulfate 2 mg, 0.5 mL, IVP No Longer Fazakerly [facility] Route: IVP, Active 2011 Medical Drug form: Center INJ, Q1H, Dosing Weight 88.182, kg, PRN Pain Score 7-10, Start date: 07/07/12 13:30:00, Duration: 30 day, Stop date: 08/06/12 13:29:00 bisacodyl 10 mg, 1 [place] No Longer Gloria [place] supp, Route: Active 2011 Medical [place], Drug Center form: SUPP, Daily, Dosing Weight 88.182, kg, PRN Constipation, Start date: 07/07/12 13:30:00, Duration: 30 day, Stop date: 08/06/12 13:29:00 acetaminophen-hy 2 tab, Route: PO No Longer [facility] drocodone 325 PO, Drug Active 2011 Medical mg-10 mg oral Form: TAB, Center tablet Dosing Weight 88.182, kg, Q4H, PRN Pain Score 7-10, Start date: 07/07/12 13:30:00, Duration: 30 day, Stop date: 08/06/12 13:29:00 acetaminophen 650 mg, 20.3 PO No Longer Fazakerly [place] mL, Route: Active 2011 Medical PO, Drug Center form: LIQ, Q4H, Dosing Weight 88.182, kg, PRN Pain/Fever, Start date: 07/07/12 13:30:00, Duration: 30 day, Stop date: 08/06/12 13:29:00 Sodium Chloride 1,000 mL, IV No Longer Fazakerly [facility] 0.9% IV 1,000 mL Rate: 50 Active 2011 Medical ml/hr, Infuse Center over: 20 hr, Route: IV, kg, Total Volume: 1,000, Start date: 07/07/12 13:30:00, Duration: 30 day, Stop date: 08/06/12 13:29:00 cefazolin 2 gm, Route: IVPB No Longer [facility] IVPB, ONCE, Active 2011 Medical Dosing Weight Center 88.182, kg, Start date: 07/07/12 12:23:00, Duration: 1 doses or times, Stop date: 07/07/12 12:23:00 cefazolin 1 gm, Route: IVPB No Longer [facility]of [place] IVPB, ONCE, Active 2011 Medical Dosing Weight Center 88.182, kg, Start date: 07/07/12 8:26:00, Duration: 1 doses or times, Stop date: 07/07/12 8:26:00 cefazolin 1 gm, Route: IVPB No Longer Morgan [place] IVPB, Drug Active 2011 Medical form: Center PDR/INJ, ONCALL, Start date: 07/07/12 7:00:00, Duration: 1 day, Stop date: 07/08/12 6:59:00 Celebrex 200 mg 400 mg, 2 PO No Longer [place] oral capsule cap, PO, Active 2011 Medical Daily, 30 Center cap, Substitution Allowed, CAP gabapentin 100 200 mg, 2 PO No Longer [place] mg oral capsule cap, PO, TID, Active 2011 Medical 240 cap, Center Substitution Allowed atenolol 100 mg 100 mg, 1 PO No Longer Mike-Amanda [place] oral tablet tab, PO, Active 2011 Medical Daily, 30 Center tab, Substitution Allowed citalopram 10 mg 10 mg, 1 tab, PO No Longer Mike-Amanda [place] oral tablet PO, Daily, 30 2011 Medical tab, Center Substitution Allowed, TAB glimepiride 4 mg 4 mg, 1 tab, PO No Longer [place] oral tablet PO, BID, 30 2011 Medical tab, Center Substitution Allowed, TAB hydrochlorothiaz 1 tab, PO, PO No Longer [place] juno-losartan 25 Daily, 30 2011 Medical mg-100 mg oral tab, Center tablet Substitution Allowed, Maintenance, TAB lisinopril 30 mg 30 mg, 1 tab, PO No Longer Mike-Amanda [place] oral tablet PO, Daily, 30 2011 Medical tab, Center Substitution Allowed, TAB aspirin 81 mg 81 mg, 1 tab, PO No Longer [place] tablet, enteric PO, Daily, 0 Active 2012 Medical coated tab, Center Substitution Allowed, ECTAB NovoLog Mix Substitution No Longer 07/06/ [facility] 70/30 Allowed Active 2012 [facility] Allergies, Adverse Reactions, Alerts Substance Category Reaction Severity Reaction Status Date Comments Source type Reported HYDROcodone Assertion Drug Active [facility] -Pseudoephe allergy Medical drine [facility] statins Assertion Drug Active [facility] NKDA Assertion Drug Active [facility] Immunizations Immunization Date Site Status Last Updated Comments Source Given pneumococcal Right completed [place] 23-valent 8 deltoid Medical vaccine Center, [facility], OPID [place] influenza virus Left completed [facility] vaccine, 8 deltoid Medical inactivated Center, [facility], OPID [place] pneumococcal Not Given Yennifer OPID 23-valent 2 [place], vaccine [facility] influenza virus completed Derrick OPID vaccine, 2 [place], inactivated [facility] influenza virus Left completed [facility] vaccine, 2 Deltoid Medical inactivated Center, OPID [place], [facility] Results Order Name Results Value Reference Date Interpretation Comments Source Range PET CT PET CT EXAM: [place] PET CT 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 I have personally reviewed the images as well as the Resident's interpretation and agree with the findings. DATE: 04/02/2018 7:00 AM CDT Read by: Cammie Kate MD Resident: Cammie Kate MD Dictated Date/time: 04/02/18 13:31 Electronically Signed by: Vero Garcia MD 04/02/18 14:16 FINAL REPORT INDICATION: Chronic lymphocytic leukemia COMPARISON: PET/CT dated 01/21/2018 and 11/24/2017 TECHNIQUE: Approximately 60 minutes after IV injection of 14.02 mCi FDG, PET/CT imaging was performed from the level of the skull base to the midthigh. FINDINGS: Head and neck: Mildly FDG avid cervical nodes are noted bilaterally, right slightly greater than left, with SUVs ranging between 1.9 and 2.2. Chest: Numerous prominent FDG avid mediastinal nodes are redemonstrated and exhibits slightly decreased metabolic activity today. As an example, a dominant node in the subcarinal compartment seen on ser ies 402 image 55, now has an SUV of 2.5 as compared to 3.4 on the prior study. An additional dominant node posterior to the trachea in the superior mediastinum (series 402 image 43) now has an SUV of 2.5 as compared to 3.6 on the prior study. Large FDG avid nodes in the bilateral axillary regions show slightly increased FDG avidity today. For example, dominant bilateral axillary nodes seen on series 402 image 46 show an SUV of 2.9 today as compared to 2.2 on the prior study. Ill-defined parenchymal opacities seen on prior exams has improved over the interval with persistent areas of patchy groundglass opacity and interstitial thickening, predominantly in the bilateral lung bases. Abdomen and pelvis: A conglomerate of nodes in the retroperitoneal compartment extending to the mesenteric root appears similar in size and demonstrates mild decrease in FDG avidity (SUV of 2.9 today as compared to 3.7 on the prior study). A hypermetabolic anahi chain in the para-aortic region on the left seen on series 402 image 89 now has an SUV of 4.8 as compared to 5.6. An enlarged hypermetabolic node in the left iliac chain, best appreciated on series 402 image 106 now has an SUV of 5.2 as compared to 3.5 in October 2017. A small focus of FDG uptake in the first portion of the duodenum now has an SUV of 3.7 as compared to 5.5 on the prior study. There is persistent splenomegaly and significant calcified atherosclerosis o f the aorta and its major branches in the abdomen. Skeleton: No focal abnormal FDG activity is identified in the skeleton to suggest bony metastasis. IMPRESSION: Overall findings suggest a mixed response. While the majority of the tumor burden in the chest, abdomen and pelvis demonstrate mild decrease in FDG uptake , a dominant node in the left iliac chain and th e bilateral axillary nodes show mild increase in FDG avidity relative to . CHEM PANEL Magnesium 2.4 mg/dL 1.8 - 2.4 02/[address] [facility] [place] [address] CHEM PANEL eGFR 45 02/06 Result Comment: The eGFR is calculated using the CKD-EPI formula. In most young, healthy individuals the eGFR will be >90 mL/ min/1.73m2. The eGFR declines with age. An eGFR of 60-89 may be normal in [facility] mL/min/1. some populations, particularly the elderly, for whom the CKD-EPI formula has not been extensively validated. Use of the eGFR is not recommended in the following populations: [address] Individuals with unstable creatinine concentrations, including patients and those with serious co-morbid conditions. Patients with extremes in muscle mass or diet. The data above are obtained from the National Kidney Disease Education Program (NKDEP) which additionally recommends that when the eGFR is used in patients with extremes of body mass index for purposes of drug dosing, the eGFR should be multiplied by the estimated BMI. CHEM PANEL Creatinine 1.16 mg/dL 0.50 - 02/[address] [facility] 1[facility]40 [facility] CHEM PANEL Glucose Lvl 63 mg/dL 70 - 99 02/[address] CHEM PANEL BUN 50 mg/dL 7 - 22 02/[address] CHEM PANEL Sodium Lvl 139 meq/L 135 - 145 02/[address] CHEM PANEL Potassium 3.9 meq/L 3.5 - 5.1 02/[address] [facility] CHEM PANEL Chloride Lvl 104 meq/L 95 - 109 02/[address] CHEM PANEL CO2 29 meq/L 24 - 32 02/[address] CHEM PANEL AGAP 9.9 meq/L 10.0 - 02/06 [facility] 20.0 [facility] CHEM PANEL Calcium Lvl 8.6 mg/dL 8.5 - 10.5 02/[address] CHEM PANEL Phosphorus 2.6 mg/dL 2.5 - 4.5 02/[address] CHEM PANEL Uric Acid 0.7 mg/dL 2.5 - 7.0 02/[address] HEMATOLOGY Eosinophils 0.2 % 0.0 - 4.0 02/[address] HEMATOLOGY Lymphocytes 91.1 % 20.0 - 02/06 [facility] 40.0 [facility] HEMATOLOGY Monocytes 0.8 % 2.0 - 12.0 02/[address] HEMATOLOGY Segs 7.8 % 45.0 - 02/06 [facility] 75.0 [facility] HEMATOLOGY Smudge Moderate None Seen 02/06 [facility] Medical *ABN* Center (02/06/18 3:30 AM) HEMATOLOGY Macrocyte 1+ None [facility]18 3:30 AM[facility] HEMATOLOGY Segs-Bands # 1.6 K/CMM 1.5 - 8.1 02/[address] [place] [address] HEMATOLOGY Lymphocytes 18.8 K/CMM 1.0 - 5.5 02/06 [facility] # /2017 [facility] HEMATOLOGY Basophils 0.1 % 0.0 - 1.0 02/[address] HEMATOLOGY Monocytes # 0.2 K/CMM 0.0 - 0.8 02/06 [facility] HEMATOLOGY Anisocyte 1+ None Seen 02/06 [facility] [place] (02/06/18 3:30 AM) HEMATOLOGY Platelet 57 K/CMM 133 - 450 02/06 [facility] HEMATOLOGY WBC 20.6 K/CMM 3.7 - 10.4 02/[address] HEMATOLOGY RBC 2.48 M/CMM 4.20 - 02/06 [facility] 5.40 [facility] HEMATOLOGY Hct 25.2 % 36.0 - 02/06 [place] 48.0 [facility] HEMATOLOGY Hgb 8.0 g/dL 12.0 - 02/06 [facility] 16.0 [facility] HEMATOLOGY MPV 9.5 fL 7.4 - 10.4 02/06 [facility] HEMATOLOGY MCHC 31.7 g/dL 32.0 - 02/06 [place] 36.0 [facility] HEMATOLOGY MCH 32.3 pg 27.0 - 02/06 31.0 2018 [facility] HEMATOLOGY MCV 101.8 fL 80.0 - 02/06 [place] 98.0 2018 [facility] HEMATOLOGY RDW 22.4 % 11.5 - 02/06 [facility] 14.5 [facility] HEMATOLOGY INR 1.03 0.85 - 02/06 [place] 1.17 [facility] HEMATOLOGY PTT 32.2 s 22.9 - 02/06 [place] 35.8 /2018 [facility] HEMATOLOGY PT 13.5 s 12.0 - 02/06 [place] 14.7 [facility] CHEM PANEL Magnesium 2.1 mg/dL 1.8 - 2.4 02/05 [facility] Lvl [facility] CHEM PANEL Uric Acid 0.3 mg/dL 2.5 - 7.0 02/05 [facility] CHEM PANEL eGFR 42 02/05 Result Comment: The eGFR is calculated using the CKD-EPI formula. In most young, healthy individuals the eGFR will be >90 mL/ min/1.73m2. The eGFR declines with age. An eGFR of 60-89 may be normal in [facility] mL/min/1.7 /2017 some populations, particularly the elderly, for whom the CKD-EPI formula has not been extensively validated. Use of the eGFR is not recommended in the following populations: [address] Individuals with unstable creatinine concentrations, including patients and those with serious co-morbid conditions. Patients with extremes in muscle mass or diet. The data above are obtained from the National Kidney Disease Education Program (NKDEP) which additionally recommends that when the eGFR is used in patients with extremes of body mass index for purposes of drug dosing, the eGFR should be multiplied by the estimated BMI. CHEM PANEL Sodium Lvl 133 meq/L 135 - 145 02/05 2017 [facility] CHEM PANEL Creatinine 1.23 mg/dL 0.50 - 02/05 [facility] Lvl 1.40 [facility] CHEM PANEL Glucose Lvl 424 mg/dL 70 - 99 02/05 Result Comment: [facility] Result(s) called to Shannon Murdock at 02/05/2018 06:18 by ET. Read back OK. CHEM PANEL BUN 54 mg/dL 7 - 22 02/[address] CHEM PANEL Calcium Lvl 8.9 mg/dL 8.5 - 10.5 02/05 [facility]2017 [facility] CHEM PANEL AGAP 13.9 meq/L 10.0 - 02/05 [facility] 20.0 [facility] CHEM PANEL CO2 27 meq/L 24 - 32 02/[address] CHEM PANEL Chloride Lvl 97 meq/L 95 - 109 02/05 [facility]2017 [facility] CHEM PANEL Potassium 4.9 meq/L 3.5 - 5.1 02/[address] [facility] CHEM PANEL Phosphorus 2.7 mg/dL 2.5 - 4.5 02/[address] HEMATOLOGY Hgb 8.6 g/dL 12.0 - 02/05 [facility] 16.0 [facility] HEMATOLOGY RBC 2.64 M/CMM 4.20 - 02/05 [facility] [place] 5.40 /2017 [facility] HEMATOLOGY WBC 19.7 K/CMM 3.7 - 10.4 02/05 [facility] HEMATOLOGY Hct 26.9 % 36.0 - 02/05 [place] 48.0 /2017 [facility] HEMATOLOGY MCV 101.9 fL 80.0 - 02/05 [place] 98.0 /2017 [facility] HEMATOLOGY MCH 32.5 pg 27.0 - 02/05 [place] 31.0 [facility] HEMATOLOGY Platelet 59 K/CMM 133 - 450 02/05 [facility] HEMATOLOGY RDW 22.7 % 11.5 - 02/05 14.5 /2017 [facility] HEMATOLOGY MCHC 31.9 g/dL 32.0 - 02/05 36.0 [facility] HEMATOLOGY MPV 9.9 fL 7.4 - 10.4 02/05 [facility] HEMATOLOGY PTT 33.8 s 22.9 - 02/05 [place] 35.8 /2017 [facility] HEMATOLOGY PT 14.1 s 12.0 - 02/05 14.7 [facility] HEMATOLOGY INR 1.09 0.85 - 02/05 [place] 1.17 [facility] HEMATOLOGY Smudge Moderate None Seen 02/05 Medical *ABN* Center (02/05/18 5:02 AM) HEMATOLOGY Segs-Bands # 1.7 K/CMM 1.5 - 8.1 02/05 [facility] HEMATOLOGY Lymphocytes 90.0 % 20.0 - 02/05 40.0 2018 [facility] HEMATOLOGY Plt Morph Normal 02/05 [facility] (02/05/18 5:02 AM) [place] HEMATOLOGY Monocytes 1.0 % 2.0 - 12.0 02/05 [facility] HEMATOLOGY Segs 9.0 % 45.0 - 02/05 [place] 75.0 [facility] HEMATOLOGY Basophils 0.0 % 0.0 - 1.0 02/05 [facility] HEMATOLOGY Lymphocytes 17.9 K/CMM 1.0 - 5.5 02/05 [place] # [facility] HEMATOLOGY Macrocyte 1+ None Seen 02/05 [facility] *ABN* Center (02/05/18 5:02 AM) HEMATOLOGY Monocytes # 0.1 K/CMM 0.0 - 0.8 02/[address] HEMATOLOGY Anisocyte 1+ None Seen 02/[address] [place] [address] *ABN* Center (02/05/18 5:02 AM) CHEM PANEL Uric Acid 4.0 mg/dL 2.5 - 7.0 02/[address] CHEM PANEL Phosphorus 2.3 mg/dL 2.5 - 4.5 02/[address] CHEM PANEL eGFR 58 02/04 Result Comment: The eGFR is calculated using the CKD-EPI formula. In most young, healthy individuals the eGFR will be >90 mL/ min/1.73m2. The eGFR declines with age. An eGFR of 60-89 may be normal in [facility] mL/min/1.7 some populations, particularly the elderly, for whom the CKD-EPI formula has not been extensively validated. Use of the eGFR is not recommended in the following populations: [address] Individuals with unstable creatinine concentrations, including patients and those with serious co-morbid conditions. Patients with extremes in muscle mass or diet. The data above are obtained from the National Kidney Disease Education Program (NKDEP) which additionally recommends that when the eGFR is used in patients with extremes of body mass index for purposes of drug dosing, the eGFR should be multiplied by the estimated BMI. CHEM PANEL Calcium Lvl 8.8 mg/dL 8.5 - 10.5 02/[address] CHEM PANEL Glucose Lvl 110 mg/dL 70 - 99 02/[address] CHEM PANEL Sodium Lvl 135 meq/L 135 - 145 02/[address] CHEM PANEL Potassium 4.2 meq/L 3.5 - 5.1 02/[address] [facility] [address] [place] [address] CHEM PANEL Chloride Lvl 96 meq/L 95 - 109 02/[address] CHEM PANEL CO2 29 meq/L 24 - 32 02/[address] CHEM PANEL AGAP 14.2 meq/L 10.0 - 02/04 [facility] 20.0 [facility] CHEM PANEL BUN 54 mg/dL 7 - 22 02/[address] CHEM PANEL Creatinine 0.94 mg/dL 0.50 - 02/[address] [facility] 1.40 [facility] CHEM PANEL Uric Acid 4.2 mg/dL 2.5 - 7.0 02/04 [facility] CHEM PANEL Magnesium 2.1 mg/dL 1.8 - 2.4 02/04 [facility] Lvl /2017 [facility] HEMATOLOGY PT 13.8 s 12.0 - 02/04 [facility] 14.7 /2017 [facility] HEMATOLOGY PTT 34.7 s 22.9 - 02/04 [place] 35.8 /2017 [facility] HEMATOLOGY INR 1.06 0.85 - 02/04 [place] 1.17 [facility] HEMATOLOGY RBC 2.80 M/CMM 4.20 - 02/04 [place] 5.40 /2017 [facility] HEMATOLOGY Hgb 9.1 g/dL 12.0 - 02/04 [place] 16.0 /2017 [facility] HEMATOLOGY Hct 27.6 % 36.0 - 02/04 [place] 48.0 [facility] HEMATOLOGY WBC 28.3 K/CMM 3.7 - 10.4 02/04 [facility] HEMATOLOGY MCHC 32.8 g/dL 32.0 - 02/04 [facility] 36.0 [facility] HEMATOLOGY RDW 20.8 % 11.5 - 02/04 [facility] 14.5 [facility] HEMATOLOGY Platelet 69 K/CMM 133 - 450 02/04 [facility] HEMATOLOGY MCV 98.5 fL 80.0 - 02/04 [facility] 98.0 [facility] HEMATOLOGY MCH 32.3 pg 27.0 - 02/04 [place] 31.0 /2018 [facility] HEMATOLOGY MPV 9.7 fL 7.4 - 10.4 02/04 [facility] HEMATOLOGY Eosinophils 0.2 % 0.0 - 4.0 02/04 [facility] HEMATOLOGY Basophils 0.1 % 0.0 - 1.0 02/04 [facility] HEMATOLOGY Segs-Bands # 1.8 K/CMM 1.5 - 8.1 02/[address] [place] [address] HEMATOLOGY Monocytes # 0.3 K/CMM 0.0 - 0.8 02/04 [facility] HEMATOLOGY Eosinophils 0.1 K/CMM 0.0 - 0.5 02/04 [place] # /2017 [facility] HEMATOLOGY Lymphocytes 26.1 K/CMM 1.0 - 5.5 02/04 [facility] # /2017 [facility] HEMATOLOGY Lymphocytes 92.5 % 20.0 - 02/04 [place] 40.0 /2018 [facility] HEMATOLOGY Monocytes 0.9 % 2.0 - 12.0 02/04 [facility] HEMATOLOGY Segs 6.3 % 45.0 - 02/04 [facility] 75.0 [facility] HEMATOLOGY Anisocyte 1+ None Seen 02/03 [facility] [place] (02/03/18 4:54 AM) HEMATOLOGY Eosinophils 0.1 % 0.0 - 4.0 02/03 [facility] HEMATOLOGY Macrocyte 1+ None Seen 02/03 [facility] (02/03/18 4:54 AM) HEMATOLOGY Plt Morph Normal 02/03 [facility] (02/03/18 4:54 AM) [place] PARATHYROID Ca Ion WB 1.17 1.05 - 02/03 [facility] PROFILE mMol/L 1. [facility] PARATHYROID Ca Norm WB 1.18 1.05 - 02/03 [facility] PROFILE mMol/L 1. [facility] Abdomen Abdomen EXAM: VIR 02/02 - [facility] biopsy biopsy - [facility] needle w needle w DATE: 02/02/2018 2:19 PM CDT Center guidance CT guidance CT PROCEDURE(S) PERFORMED: Left enlarged psoas muscle biopsy Read by: Freya Reid MD Dictated Date/time: 02/02/18 15:05 INDICATION: 82 years old Female with history of CLL and retroperitoneal lymphadenopathy including large infiltrated left psoas muscle. Electronically Signed by: Freya Reid MD 02/02/18 15 :07 FINAL REPORT FACULTY: Freya Reid MD RESIDENT/FELLOW/ELECTRONIC COMPONENT PROCESSOR: None SUPERVISION: Level 1 Direct supervision: The supervising provider is physically present with the patient during the procedure. ANESTHESIA/SEDATION: Moderate sedation PHYSICIAN SUPERVISED ANESTHESIA TIME: 30 min SPECIMEN: None DRAINS: None ESTIMATED BLOOD LOSS: Less than 10 cc COMPLICATIONS: None immediate FLUOROSCOPY TIME: None RADIATION DOSE: Not available PROCEDURE: After the risks, benefits, and alternatives of the procedure were explained to the patient, verbal and written consent were obtained and a copy was placed in the chart. The patient was then placed prone on the CT table and the enlarged the left psoas muscle was then localized under CT guidance. The skin was then prepped and draped the usual sterile fashion and satisfactory anesthesia was obtained with 1% local lidocaine and moderate sedation. For details please see the nursing record. These were monitored by dedicated nurse. Timeout was performed. Under CT guidance an 18-gauge Temno coaxial needle w as then introduced into the enlarged left psoas muscle and 3 core biopsy specimens were then obtained. The specimen was given cytology. A sterile dressing was then applied at the puncture site. FINDINGS: See procedure section. IMPRESSION: 1. CT-guided left and large/infiltrated psoas muscle biopsy. Dr. Freya Reid MD was present for the procedure. HEMATOLOGY Hypochrom 1+ None Seen 02/[address] (02/02/18 3:32 AM) [place] HEMATOLOGY Polychrom Moderate None Seen 02/[address] (02/02/18 3:32 AM) HEMATOLOGY Smudge Moderate None Seen 02/[address] (02/02/18 3:32 AM) CHEM PANEL Albumin Lvl 2.7 g/dL 3.5 - 5.0 02/[address] CHEM PANEL Globulin 3.7 g/dL 2.7 - 4.2 02/[address] CHEM PANEL ALT 17 unit/L 0 - 65 02/[address] CHEM PANEL A/G Ratio 0.7 0.7 - 1.6 02/[address] CHEM PANEL Alk Phos 66 unit/L 39 - 136 02/[address] CHEM PANEL AST 21 unit/L 0 - 37 02/[address] CHEM PANEL Bili Total 0.5 mg/dL 0.2 - 1.3 02/[address] CHEM PANEL Total 6.4 g/dL 6.4 - 8.4 02/[address] CHEM PANEL B/C Ratio 75 6 - 25 02/[address] HEMATOLOGY Atypical 0.0 % <=0.0 % 02/01 [facility] Lymphs [address] HEMATOLOGY Microcyte 1+ None Seen 02/[address] (02/01/18 3:32 AM) HEMATOLOGY Blasts 1.0 % <=0.0 % 02/[address] HEMATOLOGY Bands 0.0 % 0.0 - 11.0 02/[address] HEMATOLOG[address] Tot Cell Ct 200 01/[address] HEMATOLOGY Bands 0.0 % 0.0 - 11.0 01/[address] HEMATOLOGY Plt Morph Normal 01/[address] (01/29/18 5:39 AM) [place] HEMATOLOGY RBC Morph Normal 01/29 [facility] (01/29/18 5:39 AM) [place] HEMATOLOGY Atypical 0.0 % <=0.0 % 01/29 [facility] Lymphs [facility] Chest 1view Chest 1view EXAM: XR CHEST 1 VIEW 01/29 - [facility] DX DX /2017 - [facility] DATE: 01/29/2018 Read by: Jackie Marcum MD Dictated Date/time: 01/29/18 10:52 Electronically Signed by: Jackie Marcum MD 01/29/18 10:53 FINAL REPORT INDICATION: - dyspnea . Comparison is made with yesterday FINDINGS: Cardiomediastinal silhouette and life-support lines are unchanged. There is interstitial pulmonary edema. IMPRESSION: No significant interval change when compared to prior radiograph. CHEM PANEL ALT 7 unit/L 0 - 65 01/[address] CHEM PANEL AST 21 unit/L 0 - 37 01/[address] CHEM PANEL Globulin 4.2 g/dL 2.7 - 4.2 01/[address] CHEM PANEL B/C Ratio 31 6 - 25 01/[address] CHEM PANEL A/G Ratio 0.6 0.7 - 1.6 01/[address] CHEM PANEL Bili Total 0.7 mg/dL 0.2 - 1.3 01/[address] CHEM PANEL Total 6.9 g/dL 6.4 - 8.4 01/[address] CHEM PANEL Albumin Lvl 2.7 g/dL 3.5 - 5.0 01/[address] CHEM PANEL Alk Phos 67 unit/L 39 - 136 01/[address] URINE AND UA Ketones Negative Negative 01/28 [facility] STOOL mg/dL mg/dL /[address] [place] [address] CHEM PANEL B/C Ratio 33 6 - 25 01/[address] CHEM PANEL Total 7.2 g/dL 6.4 - 8.4 01/28 [facility] Protein [address] CHEM PANEL AST 23 unit/L 0 - 37 01/[address] CHEM PANEL Alk Phos 75 unit/L 39 - 136 01/[address] CHEM PANEL Bili Total 0.8 mg/dL 0.2 - 1.3 01/[address] CHEM PANEL Albumin Lvl 2.8 g/dL 3.5 - 5.0 01/[address] CHEM PANEL Globulin 4.4 g/dL 2.7 - 4.2 01/[address] CHEM PANEL A/G Ratio 0.6 0.7 - 1.6 01/[address] CHEM PANEL ALT 10 unit/L 0 - 65 01/[address] ANEMIA Ferritin Lvl 180 ng/mL 5 - 204 01/[address] ANEMIA Vitamin B12 239 pg/mL 254 - 1320 01/28 [facility] [address] [place] [address] ANEMIA % Satur Fe 16 % 12 - 57 01/[address] ANEMIA UIBC 264 ug/dl 110 - 370 01/[address] ANEMIA Iron 50 ug/dl 30 - 160 01/[address] ANEMIA TIBC 314 ug/dl 228 - 428 01/[address] ANEMIA RBC Folate 1501 ng/mL 280 - 791 01/[address] ANEMIA Folate Lvl 16.0 ng/mL >=3.0 01/28 [facility] [place] ng/mL [address] [place] [address] CHEM PANEL Ketone 0.24 <=0.27 01/28 [facility] Quantitative mmol/L mmol/L [address] [place] [address] CHEM PANEL Lactic Acid 1.3 mMol/L 0.5 - 2.2 01/28 [facility] [address] [place] [address] HEMATOLOGY Retic Auto 5.0 % 0.5 - 1.5 01/[address] HEMATOLOG[address] Tot Cell Ct 100 01/[address] HEMATOLOGY Atypical 2.0 % <=0.0 % 01/28 [facility] Lymphs [address] HEMATOLOGY Bands 0.0 % 0.0 - 11.0 01/[address] Chest 1view Chest 1view EXAM: XR CHEST 1 VIEW 01/28 - [facility] DX DX /2017 - [facility] DATE: 01/28/2018 8:48 AM CDT Read by: Kyaw Alarcon MD Dictated Date/time: 01/28/18 10:27 Electronically Signed by: Kyaw Alarcon MD 01/28/18 10:28 FINAL REPORT INDICATION: - dyspnea COMPARISON: 01/27/2018 TECHNIQUE: AP chest IMPRESSION: 1. Again seen is left chest wall single lead automatic implantable cardiac defibrillator and right upper extremity PICC. 2. Cardiomediastinal silhouette is enlarged, unchanged. Aortic atherosclerotic disease. Calcification/stenting seen along the left anterior descending coronary artery. 3. Prominent lung reticulations again seen with peribronchial cuffing and patchy airspace opacities bilaterally suggestive of pulmonary edema. Superimposed infection cannot be excluded. Findings are stable compared to previous study. 4. Small bilateral pleural effusions. 5. Osseous structures are stable. CARDIAC BNP 1002 pg/mL <=100 01/27 [facility] ENZYMES pg/mL /2017 [facility] IMMUNOLOGY Hep Bs Ag Negative Negative 01/27 [facility] *NA* [place] (01/27/18 2:02 PM) IMMUNOLOGY Hep B Core Negative Negative 01/27 [facility] [place] (01/27/18 2:02 PM) IMMUNOLOGY Hep C Ab Negative 01/27 [facility]* [place] (01/27/18 2:02 PM) IMMUNOLOGY Hep A IgM Negative Negative 01/27 [facility] [place] (01/27/18 2:02 PM) HEMATOLOGY Basophils # 0.1 K/CMM 0.0 - 0.2 01/27 [facility] Chest 1 v Chest 1 v EXAM: XR CHEST 1 VIEW 01/27 - [facility] for for - Medical Placement Placement DX This report was dictated by a Dental Ceramist Helper/Fellow. I have personally reviewed the images as Center DX well as the Resident's interpretation and agree with the findings. DATE: 01/27/2018 at 1310 hours Read by: Nyla Mahoney MD Resident: Nyla Mahoney MD Dictated Date/time: 01/27/18 13:36 Electronically Signed by: Kyaw Alarcon MD 01/27/18 14:19 FINAL REPORT INDICATION: Line Placement - Chest 1 view for line placement COMPARISON: Chest radiograph 01/26/2018 at 1715 hours TECHNIQUE: Semierect, AP chest FINDINGS: Lines, tubes and hardware: A right PICC has been placed with the tip projecting over the SVC. Left chest wall single lead cardiac defibrillator is again noted, with the lead projecting over the right ventricle. Aortic valve prosthesis is stable. Lungs and pleura: Low lung volumes. Trace bilateral pleural effusions. Subsegmental atelectasis at the bilateral lung bases is again noted. Mild interstitial pulmonary edema is unchanged. Pulmonary vascularity is prominent. Heart and mediastinum: The cardiomediastinal silhouette is unchanged. Bones: No acute bony abnormality is identified. IMPRESSION: 1. Interval placement of right PICC line with the tip projecting over the SVC. 2. No other significant change compared to prior chest x-ray. BLOOD BANK RBC product Modification Required 01/27 [facility] RESULTS /2017 [facility] (01/26/18 8:26 PM) [place] BLOOD BANK ABO/Rh O NEG 01/26 [facility] RESULTS /2017 [facility] BLOOD BANK Antibody Negative 01/26 [facility] RESULTS Scrn [facility] (01/26/18 4:49 PM) [place] CARDIAC Troponin-I null 0.00 - 01/26 [facility] ENZYMES 0.40 [facility] HEMATOLOGY Blasts 2.0 % <=0.0 % 01/26 Result [place] /2017 Comment: Medical Patient has Center history of CLL. HEMATOLOGY Tot Cell Ct 200 01/26 [place] /2018 [facility] Chest 2 Chest 2 EXAM: XR CHEST 2 VIEWS 01/26 - [facility] views DX views DX - [facility] This report was dictated by a Dental Ceramist Helper/Fellow. I have personally reviewed the images as Center well as the Resident's interpretation and agree with the findings. DATE: 01/26/2018 4:44 PM CDT Read by: Sanjeev Briggs MD Resident: Sanjeev Briggs MD Dictated Date/time: 01/26/18 17:29 Electronically Signed by: Meliza Alcala MD 01/26/18 17:41 FINAL REPORT INDICATION: Weakness, cancer COMPARISON: CXR 1 view 01/01/2018 TECHNIQUE: PA and lateral chest radiographs FINDINGS: Lines, tubes and hardware: And cardiac pacing device is again present over the left chest with the lead projecting over the heart. The aortic valve is in unchanged position. Lungs and pleura: The lungs are well expanded. There are bibasilar interstitial opacities with Ml B lines, mildly improved from 01/01/2018 comparison. These likely represent interstitial pulmonary santosh ma though superimposed infection is possible. There are small bibasilar pleural effusions. Heart and mediastinum: The cardiomediastinal silhouette is unchanged in shape and size. Bones: No acute bony abnormality is identified. IMPRESSION: 1. Moderate pulmonary edema, mildly improved from 01/01/2018. 2. Small bibasilar pleural effusions. [place] SECTION: ER PET CT PET CT Tumor F 18 FDG PET/CT SKULL BASE TO MID THIGH: 01/26/2018 4:41 PM CDT 01/21 - [facility] Tumor imaging-[facility] imaging-[facility] CLINICAL INDICATION: - liver cancer initial staging, lymphadenopathy Read by: Tina Raya MD Dictated Date/time: 01/21/18 15:12 Electronically Signed by: Tina Raya MD 01/21/18 18:48 FINAL REPORT Recent blood sugar level: 116 mg/dl Total body radiation dose: CTDI: 10.37 DLP: 9-1.54 TECHNIQUE: Following the intravenous administration of 14.86mCi of F-18 FDG, tomographic images were obtained from the skull base to the proximal thighs , after an interval of [address] ic CT was performed for purposes of attenuation correction and anatomical mapping. COMPARISON: PET/CT 11/24/2017, chest x-ray 01/01/2018. FINDINGS: HEAD AND NECK: Prominent CSF space. The visualized portion of the brain demonstrates physiologic FDG uptake. There are non to mildly avid bilateral cervical lymph nodes for example, stable left submandibular 1.1 cm node (max SUV 1.7), image 36. Left 1 cm anterior cervical node (max SUV 2.1). Right posterior ramos praclavicular 9 mm node without significant abnormal activity. The mucosal surfaces demonstrate physiologic activity. CHEST: Enlarged non to minimally avid mediastinal, bilateral hilar, retrocrural and bilateral right greater than left, axillary lymphadenopathy. Stable, index 1.5 x 2.0 cm right posterior mediastinal/right par aesophageal lymphadenopathy (max SUV 3.7, unchanged). Index subcarinal 2.8 x 2.0 cm, (max SUV 3.0), previously 2.3 x 2.1 cm. Diffuse increased interstitial opacities with very mild uptake, similar to background (max SUV 1.5), increased from prior study. Few distinct subpleural and upper lobe groundglass, alveolar opacities, f or example 2.3 x 1.8 cm opacity (max SUV 2.0), appearing new. Small bilateral pleural effusions without abnormal activity. Atherosclerosis of the thoracic arch and coronary arteries. Aortic prosthetic valve ABDOMEN AND PELVIS: There is extensive mesenteric and retroperitoneal lymphadenopathy. Increased size of index lis hepatis low-grade conglomerate measures 7.4 x 6.4 cm (max SUV 3.4), this roughly measured 6.0 x 5.5 cm. Retroperitoneal lymphadenopathy encasing the aorta, compressing the IVC. Index mass level of the renal vessels measures 9.8 x 4.5 cm (max SUV 3.3). This previously measured 10.0 x 4.0 cm, is relatively stable to slightly increase in size with stable FDG activity. There is enlargement of the left psoas muscle with moderate uptake (max SUV 5.2). The retroperitoneal lymphadenopathy also closely abuts the loops small bowel in the upper abdomen where distinction is difficult, especially superior to the bifurcation in the lower abdomen (max SUV 4.2) where direct bowel involvement cannot exclude. No definite bowel dilation to suggest obstruction. Increased size of left common iliac conglomerate measures 6.2 x 3.8 cm ( max SUV 6.1, previously 4.8). The previously measured 4.2 x 3.7 cm. Increased number of small mesenteric nodes in the right lower abdomen and pelvis intermixed with small bowel. Large bilateral external iliac lymphadenopathy with index left external iliac stable in size but with increased FDG activity 8.4 x 1.7 cm node (max SUV 5.2 versus 3.3), previously 8.2 x 1.8 cm. The spleen is enlarged with low-grade increased activity (max SUV 2.2). MUSCULOSKELETAL: The visualized portion of the skeleton and musculature demonstrate physiologic FDG uptake. IMPRESSION: Extensive, low-grade lymphadenopathy in the head and neck, chest abdomen pelvis. Lymphadenopathy in the head and neck and chest is stable; however, there is progression in the abdomen and pelvis. Additi onally there is suspicion for small bowel involvement which are difficult to delineate due to lack of contrast. Increased bilateral pulmonary opacities may be inflammatory or lymphomatous. Likely lymphangitic spread of disease and/or edema. Splenomegaly likely lymphomatous involvement. HEMATOLOGY Macrocyte 1+ None Seen 01/05 [facility] (01/05/18 12:54 PM) HEMATOLOGY Anisocyte 1+ None Seen 01/[address] [place] [address] (01/05/18 12:54 PM) HEMATOLOGY Smudge Moderate None Seen 01/05 [facility] (01/05/18 12:54 PM) HEMATOLOGY Lymphocytes 24.7 K/CMM 1.0 - 5.5 01/05 [facility] # [facility] HEMATOLOGY Segs-Bands # 1.3 K/CMM 1.5 - 8.1 01/[address] HEMATOLOGY Segs 5.1 % 45.0 - 01/05 [facility] 75.0 [facility] HEMATOLOGY Basophils # 0.1 K/CMM 0.0 - 0.2 01/[address] HEMATOLOGY Eosinophils 0.1 K/CMM 0.0 - 0.5 01/05 [facility] HEMATOLOGY Monocytes # 0.2 K/CMM 0.0 - 0.8 01/[address] HEMATOLOGY Basophils 0.2 % 0.0 - 1.0 01/[address] HEMATOLOGY Eosinophils 0.2 % 0.0 - 4.0 01/[address] HEMATOLOGY Monocytes 0.7 % 2.0 - 12.0 01/[address] HEMATOLOGY Lymphocytes 93.8 % 20.0 - 01/05 [place] 40.0 [facility] HEMATOLOGY WBC 26.4 K/CMM 3.7 - 10.4 01/[address] HEMATOLOGY MPV 10.3 fL 7.4 - 10.4 01/[address] HEMATOLOGY Platelet 68 K/CMM 133 - 450 01/[address] HEMATOLOGY RDW 20.4 % 11.5 - 01/05 [facility] 14.5 [facility] HEMATOLOGY MCHC 32.0 g/dL 32.0 - 01/05 [place] 36.0 [facility] HEMATOLOGY MCH 32.5 pg 27.0 - 01/05 [facility] 31.0 [facility] HEMATOLOGY RBC 2.37 M/CMM 4.20 - 03/ [facility] 5.40 /2017 [facility] HEMATOLOGY MCV 101.3 fL 80.0 - 01/05 [facility] 98.0 [facility] HEMATOLOGY Hct 24.0 % 36.0 - 01/05 [facility] 48.0 /2017 [facility] HEMATOLOGY Hgb 7.7 g/dL 12.0 - 01/05 [facility] 16.0 [facility] CHEM PANEL Magnesium 1.8 mg/dL 1.8 - 2.4 / Result [facility] /2017 Comment: [facility] Center Slightly Hemolyzed. CHEM PANEL Phosphorus 3.4 mg/dL 2.5 - 4.5 01/[address] CHEM PANEL Albumin Lvl 2.7 g/dL 3.5 - 5.0 01/[address] CHEM PANEL Bili Total 0.4 mg/dL 0.2 - 1.3 01/[address] CHEM PANEL Total 7.4 g/dL 6.4 - 8.4 01/05 [facility] Protein [facility] CHEM PANEL AST 21 unit/L 0 - 37 01/[address] CHEM PANEL ALT 10 unit/L 0 - 65 01/[address] CHEM PANEL Alk Phos 70 unit/L 39 - 136 01/[address] CHEM PANEL Globulin 4.7 g/dL 2.7 - 4.2 01/[address] CHEM PANEL A/G Ratio 0.6 0.7 - 1.6 01/[address] CHEM PANEL Bili Direct 0.1 mg/dL 0.0 - 0.3 01/[address] CHEM PANEL Bili 0.3 mg/dL 0.0 - 1.0 01/05 [facility] Indirect [facility] ELECTROLYTE AGAP 17.3 meq/L 10.0 - 03 [facility] 20.0 [facility] ELECTROLYTE CO2 22 meq/L 24 - 32 01/[address] ELECTROLYTE Calcium Lvl 8.8 mg/dL 8.5 - 10.5 01/[address] ELECTROLYTE Potassium 4.3 meq/L 3.5 - 5.1 01/05 [facility] ELECTROLYTE Chloride Lvl 98 meq/L 95 - 109 01/[address] ELECTROLYTE Sodium Lvl 133 meq/L 135 - 145 01/[address] ELECTROLYTE eGFR 43 01/05 Result Comment: The eGFR is calculated using the CKD-EPI formula. In most young, healthy individuals the eGFR will be >90 mL/ min/1.73m2. The eGFR declines with age. An eGFR of 60-89 may be normal in [facility] mL/min/11.02 some populations, particularly the elderly, for whom the CKD-EPI formula has not been extensively validated. Use of the eGFR is not recommended in the following populations: [address] Individuals with unstable creatinine concentrations, including patients and those with serious co-morbid conditions. Patients with extremes in muscle mass or diet. The data above are obtained from the National Kidney Disease Education Program (NKDEP) which additionally recommends that when the eGFR is used in patients with extremes of body mass index for purposes of drug dosing, the eGFR should be multiplied by the estimated BMI. ELECTROLYTE BUN 45 mg/dL 7 - 22 01/[address] ELECTROLYTE Creatinine 1.19 mg/dL 0.50 - 01/05 [facility] Lvl 1.40 [facility] ELECTROLYTE Glucose Lvl 120 mg/dL 70 - 99 01/[address] CHEM PANEL eGFR 41 01/04 Result Comment: The eGFR is calculated using the CKD-EPI formula. In most young, healthy individuals the eGFR will be >90 mL/ min/1.73m2. The eGFR declines with age. An eGFR of 60-89 may be normal in [facility]/min/11.02 some populations, particularly the elderly, for whom the CKD-EPI formula has not been extensively validated. Use of the eGFR is not recommended in the following populations: [address] Individuals with unstable creatinine concentrations, including patients and those with serious co-morbid conditions. Patients with extremes in muscle mass or diet. The data above are obtained from the National Kidney Disease Education Program (NKDEP) which additionally recommends that when the eGFR is used in patients with extremes of body mass index for purposes of drug dosing, the eGFR should be multiplied by the estimated BMI. CHEM PANEL CO2 23 meq/L 24 - 32 01/[address] CHEM PANEL Chloride Lvl 96 meq/L 95 - 109 01/04 [place] [address] [facility] CHEM PANEL AGAP 16.3 meq/L 10.0 - 01/04 [facility] 20.0 [facility] CHEM PANEL Potassium 4.3 meq/L 3.5 - 5.1 01/04 [facility] CHEM PANEL Sodium Lvl 131 meq/L 135 - 145 01/[address] CHEM PANEL Creatinine 1.24 mg/dL 0.50 - 01/04 [facility] 1.40 [facility] CHEM PANEL Calcium Lvl 8.8 mg/dL 8.5 - 10.5 01/[address] CHEM PANEL BUN 47 mg/dL 7 - 01/[address] CHEM PANEL Glucose Lvl 167 mg/dL 70 - 99 01/[address] CHEM PANEL Phosphorus 3.6 mg/dL 2.5 - 4.5 01/03 [facility]2017 [facility] CHEM PANEL Magnesium 2.0 mg/dL 1.8 - 2.4 01/03 [facility] CHEM PANEL eGFR 45 01/03 Result Comment: The eGFR is calculated using the CKD-EPI formula. In most young, healthy individuals the eGFR will be >90 mL/ min/1.73m2. The eGFR declines with age. An eGFR of 60-89 may be normal in [facility] mL/min/1. some populations, particularly the elderly, for whom the CKD-EPI formula has not been extensively validated. Use of the eGFR is not recommended in the following populations: [address] Individuals with unstable creatinine concentrations, including patients and those with serious co-morbid conditions. Patients with extremes in muscle mass or diet. The data above are obtained from the National Kidney Disease Education Program (NKDEP) which additionally recommends that when the eGFR is used in patients with extremes of body mass index for purposes of drug dosing, the eGFR should be multiplied by the estimated BMI. CHEM PANEL Sodium Lvl 135 meq/L 135 - 145 01/03 [facility] CHEM PANEL Potassium 3.5 meq/L 3.5 - 5.1 01/[address] [facility] CHEM PANEL BUN 39 mg/dL 7 - 01/[address] CHEM PANEL Creatinine 1.15 mg/dL 0.50 - 01/03 [facility] 1.40 [facility] CHEM PANEL Calcium Lvl 9.0 mg/dL 8.5 - 10.5 01/03 [facility] CHEM PANEL Chloride Lvl 100 meq/L 95 - 109 01/03 2017 [facility] CHEM PANEL CO2 25 meq/L 24 - 32 01/[address] CHEM PANEL Glucose Lvl 164 mg/dL 70 - 99 01/[address] CHEM PANEL AGAP 13.5 meq/L 10.0 - 01/03 20.0 [facility] HEMATOLOGY Platelet 68 K/CMM 133 - 450 01/03 2017 [facility] HEMATOLOGY MPV 9.4 fL 7.4 - 10.4 01/03 2017 [facility] HEMATOLOGY MCV 98.7 fL 80.0 - 01/03 98.0 [facility] HEMATOLOGY MCH 32.4 pg 27.0 - 01/03 31.0 [facility] HEMATOLOGY MCHC 32.8 g/dL 32.0 - 01/03 36.0 [facility] HEMATOLOGY RDW 20.6 % 11.5 - 10 [place] 14.5 [facility] HEMATOLOGY WBC 27.7 K/CMM 3.7 - 10.4 01/03 [facility] HEMATOLOGY RBC 2.25 M/CMM 4.20 - 10 [place] 5.40 [facility] HEMATOLOGY Hct 22.2 % 36.0 - 10 [place] 48.0 /2018 [facility] HEMATOLOGY Hgb 7.3 g/dL 12.0 - 01/03 16.0 [facility] HEMATOLOGY Segs 7.1 % 45.0 - 10 [place] 75.0 2018 [facility] HEMATOLOGY Lymphocytes 91.1 % 20.0 - 0310 [place] 40.0 /2018 [facility] HEMATOLOGY Monocytes 1.3 % 2.0 - 12.0 01/03 [facility] HEMATOLOGY Segs-Bands # 2.0 K/CMM 1.5 - 8.1 01/[address] HEMATOLOGY Eosinophils 0.2 % 0.0 - 4.0 01/[address] [place] [address] HEMATOLOGY Basophils 0.3 % 0.0 - 1.0 01/[address] HEMATOLOGY Basophils # 0.1 K/CMM 0.0 - 0.2 01/03 [facility] [address] [place] [address] HEMATOLOGY Lymphocytes 25.2 K/CMM 1.0 - 5.5 01/03 [facility] HEMATOLOGY Monocytes # 0.4 K/CMM 0.0 - 0.8 01/[address] HEMATOLOGY Smudge Moderate None Seen 01/03 [facility]* [place] (01/03/18 5:18 AM) CHEM PANEL Magnesium 2.7 mg/dL 1.8 - 2.4 01/02 [facility] Lvl [facility] CHEM PANEL Phosphorus 4.3 mg/dL 2.5 - 4.5 01/[address] HEMATOLOGY Basophils # 0.1 K/CMM 0.0 - 0.2 01/[address] HEMATOLOGY Segs-Bands # 1.8 K/CMM 1.5 - 8.1 01/[address] HEMATOLOGY Lymphocytes 28.6 K/CMM 1.0 - 5.5 01/[address] HEMATOLOGY Monocytes # 0.2 K/CMM 0.0 - 0.8 01/[address] HEMATOLOGY Basophils 0.4 % 0.0 - 1.0 01/[address] HEMATOLOGY Anisocyte 1+ None Seen 01/02 [facility] [address] [place] [address] (01/02/18 2:43 AM) HEMATOLOGY Segs 6.0 % 45.0 - 01/02 [place] 75.0 [facility] HEMATOLOGY Eosinophils 0.1 % 0.0 - 4.0 01/[address] HEMATOLOGY Lymphocytes 92.8 % 20.0 - 01/02 [place] 40.0 [facility] HEMATOLOGY Monocytes 0.7 % 2.0 - 12.0 01/[address] HEMATOLOGY Plt Morph Normal 01/02 [facility] (01/02/18 2:43 AM) [place] HEMATOLOGY INR 1.07 0.85 - 01/02 [place] 1.17 [facility] HEMATOLOGY PT 13.9 s 12.0 - 01/02 [place] 14.7 [facility] HEMATOLOGY PTT 30.5 s 22.9 - 01/02 [place] 35.8 [facility] HEMATOLOGY MCHC 33.3 g/dL 32.0 - 01/02 [facility] [place] 36.0 [facility] HEMATOLOGY Platelet 85 K/CMM 133 - 450 01/02 [facility] HEMATOLOGY RDW 21.1 % 11.5 - 01/02 [facility] 14.5 [facility] HEMATOLOGY MPV 9.6 fL 7.4 - 10.4 01/02 [facility] [address] [place] [address] HEMATOLOGY WBC 30.8 K/CMM 3.7 - 10.4 01/02 [facility] HEMATOLOGY Hct 25.3 % 36.0 - 01/02 [facility] 48.0 [facility] HEMATOLOGY Hgb 8.4 g/dL 12.0 - 01/02 [facility] 16.0 [facility] HEMATOLOGY RBC 2.57 M/CMM 4.20 - 01/02 [facility] 5.40 [facility] HEMATOLOGY MCH 32.7 pg 27.0 - 01/02 [facility] 31.0 [facility] HEMATOLOGY MCV 98.4 fL 80.0 - 01/02 [facility] 98.0 [facility] PARATHYROID Ca Ion WB 1.11 1.05 - 01/02 [facility] PROFILE mMol/L 1. [facility] PARATHYROID Ca Norm WB 1.12 1.05 - 01/02 [facility] PROFILE mMol/L 1. [facility] ANEMIA TRANSFERRIN 208 mg/dL 212 - 360 01/02 [facility] [place] [address] [place] [address] ANEMIA % [place] 18 % 12 - 57 01/02 [facility] [place] [address] [place] [address] ANEMIA TIBC 430 ug/dl 228 - 428 01/02 [facility] [place] [address] [place] [address] ANEMIA UIBC 351 ug/dl 110 - 370 01/02 [facility] [place] [facility] ANEMIA Iron 79 ug/dl 30 - 160 01/02 [facility] [place] [facility] ANEMIA Ferritin Lvl 81 ng/mL 5 - 204 01/02 [facility] [place] [address] [place] [address] BLOOD BANK RBC product Product available 01/02 [facility] (01/01/18 8:44 PM) [place] HEMATOLOGY Macrocyte 1+ None Seen 01/02 [facility] Center (01/01/18 6:39 PM) CHEM PANEL Alk Phos 75 unit/L 39 - 136 01/[address] CHEM PANEL Bili Total 0.6 mg/dL 0.2 - 1.3 01/01 [facility] [address] [place] [address] CHEM PANEL AST 33 unit/L 0 - 37 01/[address] CHEM PANEL Total 7.3 g/dL 6.4 - 8.4 01/01 [facility] Protein [address] CHEM PANEL Albumin Lvl 2.8 g/dL 3.5 - 5.0 01/[address] CHEM PANEL ALT 8 unit/L 0 - 65 01/[address] CHEM PANEL A/G Ratio 0.6 0.7 - 1.6 01/[address] CHEM PANEL B/C Ratio 24 6 - 25 01/[address] CHEM PANEL Globulin 4.5 g/dL 2.7 - 4.2 01/[address] BLOOD BANK Antibody Negative 01/01 [facility] RESULTS Scrn [facility] (01/01/18 12:41 AM) [place] BLOOD BANK ABO/Rh O NEG 01/01 [facility] RESULTS /[address] [place] [address] CARDIAC BNP 904 pg/mL <=100 01/01 [facility] ENZYMES pg/mL /[address] [place] [address] CHEM PANEL Lactic Acid 1.5 mMol/L 0.5 - 2.2 01/[address] [facility] /[address] [place] [address] CHEM PANEL Procalcitoni 0.55 ng/mL 0.00 - 01/01 [facility] n Lvl 0.10 [facility] CHEM PANEL Total 7.8 g/dL 6.4 - 8.4 01/[address] CHEM PANEL Alk Phos 82 unit/L 39 - 136 01/[address] CHEM PANEL Bili Total 0.7 mg/dL 0.2 - 1.3 01/[address] CHEM PANEL Albumin Lvl 3.1 g/dL 3.5 - 5.0 01/[address] CHEM PANEL ALT 9 unit/L 0 - 65 01/[address] CHEM PANEL AST 21 unit/L 0 - 37 01/[address] CHEM PANEL A/G Ratio 0.7 0.7 - 1.6 01/[address] CHEM PANEL Globulin 4.7 g/dL 2.7 - 4.2 01/[address] CHEM PANEL B/C Ratio 23 6 - 25 01/[address] HEMATOLOGY Plt Morph Normal 01/[address] (01/01/18 12:41 AM) Center HEMATOLOGY Macrocyte 1+ None Seen 01/01 [facility]* [place] (01/01/18 12:41 AM) HEMATOLOGY Polychrom Moderate None Seen 01/01 [facility]* [place] (01/01/18 12:41 AM) HEMATOLOGY PTT 33.7 s 22.9 - 01/01 [facility] 35.8 /2017 [facility] HEMATOLOGY PT 13.6 s 12.0 - 01/01 [facility] 14.7 [facility] HEMATOLOGY INR 1.04 0.85 - 01/01 [facility] 1.17 [facility] Chest 1view Chest 1view EXAM: XR CHEST 1 VIEW 01/01 - [facility] DX DX /2017 - [facility] DATE: 01/01/2018 Read by: Jackie Marcum MD Dictated Date/time: 01/01/18 08:19 Electronically Signed by: Jackie Marcum MD 01/01/18 08:20 FINAL REPORT INDICATION: - HF decompensation . Comparison is made with 11/20/2017 FINDINGS: Cardiomediastinal silhouette and life-support lines are unchanged. There are bilateral small pleural effusions which have improved since prior radiograph. There are patchy alveolar opacities b ilaterally which may represent multifocal pneumonia or edema however these have improved since 11/20/2017 IMPRESSION: Improving pleural effusions and alveolar opacities bilaterally ANEMIA Ferritin Lvl 131 ng/mL 5 - 204 11/29 [facility] STUDY [facility] CHEM PANEL Magnesium 1.8 mg/dL 1.8 - 2.4 11/[address] [facility] CHEM PANEL Phosphorus 3.1 mg/dL 2.5 - 4.5 11/29 [facility]2017 [facility] CHEM PANEL Uric Acid 1.0 mg/dL 2.5 - 7.0 11/[address] CHEM PANEL eGFR 37 11/29 Result Comment: The eGFR is calculated using the CKD-EPI formula. In most young, healthy individuals the eGFR will be >90 mL/ min/1.73m2. The eGFR declines with age. An eGFR of 60-89 may be normal in [facility] mL/min/1. some populations, particularly the elderly, for whom the CKD-EPI formula has not been extensively validated. Use of the eGFR is not recommended in the following populations: [address] Individuals with unstable creatinine concentrations, including patients and those with serious co-morbid conditions. Patients with extremes in muscle mass or diet. The data above are obtained from the National Kidney Disease Education Program (NKDEP) which additionally recommends that when the eGFR is used in patients with extremes of body mass index for purposes of drug dosing, the eGFR should be multiplied by the estimated BMI. CHEM PANEL Chloride Lvl 100 meq/L 95 - 109 11/29 [facility] CHEM PANEL CO2 24 meq/L 24 - 32 11/29 2017 [facility] CHEM PANEL Creatinine 1.36 mg/dL 0.50 - 11/29 [facility] Lvl 1.40 /2017 [facility] CHEM PANEL Sodium Lvl 135 meq/L 135 - 145 11/[address] CHEM PANEL Potassium 4.4 meq/L 3.5 - 5.1 11/[address] [facility] CHEM PANEL BUN 47 mg/dL 7 - 22 11/[address] CHEM PANEL Glucose Lvl 147 mg/dL 70 - 99 11/[address] CHEM PANEL AGAP 15.4 meq/L 10.0 - 11/29 20.0 [facility] CHEM PANEL Calcium Lvl 9.6 mg/dL 8.5 - 10.5 11/[address] HEMATOLOGY WBC 30.9 K/CMM 3.7 - 10.4 11/[address] HEMATOLOGY RDW 21.4 % 11.5 - 11/29 14.5 [facility] HEMATOLOGY Platelet 75 K/CMM 133 - 450 11/29 [facility] HEMATOLOGY MPV 9.4 fL 7.4 - 10.4 11/[address] HEMATOLOGY MCH 32.5 pg 27.0 - 11/29 31.0 [facility] HEMATOLOGY MCHC 32.2 g/dL 32.0 - 02 36.0 [facility] HEMATOLOGY Hgb 8.1 g/dL 12.0 - 11/29 16.0 [facility] HEMATOLOGY Hct 25.2 % 36.0 - 11/29 [place] 48.0 [facility] HEMATOLOGY MCV 100.7 fL 80.0 - 11/29 [place] 98.0 [facility] HEMATOLOGY RBC 2.50 M/CMM 4.20 - 11/29 [facility] 5.40 /2017 [facility] HEMATOLOGY Segs 4.0 % 45.0 - 11/29 [facility] 75.0 /2017 [facility] HEMATOLOGY Lymphocytes 95.0 % 20.0 - 11/29 [facility] 40.0 [facility] HEMATOLOGY Bands 0.0 % 0.0 - 11.0 11/[address] HEMATOLOGY Monocytes 1.0 % 2.0 - 12.0 11/[address] HEMATOLOGY Segs-Bands # 1.2 K/CMM 1.5 - 8.1 11/[address] HEMATOLOGY Plt Morph Normal 11/29 [facility] [address] [place] [address] (11/29/17 6:20 AM) [place] HEMATOLOGY Atypical 0.0 % <=0.0 % 11/29 [facility] Lymphs [address] [place] [address] HEMATOLOGY Macrocyte 1+ None Seen 11/29 [facility] [address] [place] [address] *ABN* [place] (11/29/17 6:20 AM) HEMATOLOGY Anisocyte 1+ None Seen 11/29 [facility] [address] [place], [place] [address]ABN* [place] (11/29/17 6:20 AM) HEMATOLOGY Polychrom Slight 11/[address] HEMATOLOGY Lymphocytes 29.4 K/CMM 1.0 - 5.5 11/29 [facility] # /2017 [facility] HEMATOLOGY Monocytes # 0.3 K/CMM 0.0 - 0.8 11/[address] PARATHYROID PTH Intact 88.2 pg/mL 11.1 - 11/29 [facility] PROFILE 79.5 [facility] REFERENCE Misc Lab IGV 11/28 [facility] LAB RESULTS Hypermutat [facility] AnalyisSou rce: BMResults: Mutation Status: UnmutatedI nterpretat ion:PCR amplificat ion of the IgM gene variable (V) region detects a monoclonal population of B-cells. This patient's sequence is 0.00% different from germline.R eference lab results scanned in [facility]. Results displayed in Results-La b-REFERENC E LAB-Outsid e Lab Documents (Imaged) under date/time results were scanned. Report sent for scanning on 12/04/2017 22:40.Melchor mack report faxed to Dr. Benedict 12/04/2017 22:40. 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 Juan Rushing @[id number] on 12/04/2017 /Yen eference lab results scanned in [facility]. Results displayed in Results-La b-REFERENC E LAB-Outsid e Lab Documents (Imaged) under date/time results were scanned. Report sent for scanning on 12/04/2017 00:48. 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 The first clone (15/20 cells) is complex with multiple structural and numerical changes including two copies of a decentric chromosome composed of parts of chromosome s 17 and 21 leading to 17p-. The second clone (1/20 cells) exhibits an extra copy of chromosome 12. The remaining cells are cytogeneti nataliia normal.Ref erence lab results scanned in [facility]. Results displayed in Results-La b-REFERENC E LAB-Outsid e Lab Documents (Imaged) under date/time results were scanned. Report sent for scanning on 12/05/2017 22:26.Melchor mack report faxed to Dr. Benedict 12/05/2017 22:26. PG HEMATOLOGY INR 1.09 0.85 - 11/28 [place] 1.17 /2017 [facility] HEMATOLOGY PT 14.1 s 12.0 - 11/28 [place] 14.7 /2017 [facility] HEMATOLOGY PTT 72.4 s 22.9 - 02 [place] 35.8 /2018 [facility] BLOOD BANK Antibody Negative 11/28 [facility] RESULTS Scrn /2017 Medical (11/28/17 3:24 AM) [place] BLOOD BANK ABO/Rh O NEG 11/28 [place] RESULTS /2018 [facility] Bone Marrow Bone Marrow STUDY: Bone marrow aspiration and biopsy 11/28 - [facility] Bio/Aspr CT Bio/Aspr CT /2017 - [facility] Biopsy of retroperitoneal mass Read by: Jayy Israel MD Dictated Date/time: 11/28/17 10:29 Electronically Signed by: Jayy Israel MD 11/28/17 10:58 FINAL REPORT DATE: 11/28/2017 8:00 AM [employer] INDICATION(S): The patient has chronic lymphocytic anemia PROCEDURE(S) PERFORMED: Patient was placed prone in her table. 1st the bone marrow was performed. An area over the right posterior iliac wing was sterilely prepped and draped. 1% lidocaine was infiltrat ed for local anesthesia. Using CT guidance and confirmation a right posterior iliac wing was entered with an 11-gauge bone biopsy needle and heparinized and nonheparinized aspirates were obtained and th en a core biopsy. After this was dressed sterilely with turned our attention to the retroperitoneum. An area was chosen on the left side and sterilely prepped and draped. 1% lidocaine was infiltrated for local anesthesia. A 17-gauge guiding needle was placed to the edge posteriorly of the retroperitone al mass and 5 cores obtained, 2 1st flow cytometry and 3 for cytopathology with the 18-gauge Temno needle. All needles were then removed. CENTRAL STERILE TECH: Jhonatan [employer]LECTRONIC COMPONENT PROCESSOR(S): CONSENT: Written consent obtained after discussing the indications, procedure, potential benefits, alternatives and risks SEDATION/PAIN CONTROL: Moderate conscious sedation was administered by a dedicated nurse under my supervision. There was continuous monitoring of BP, pulse and oxygen saturation.. Sedation time 40 minutes. COMPLICATIONS: None ESTIMATED BLOOD LOSS: Minimal mL FLUOROSCOPIC TIME: minutes. RADIATION DOSE: mGy CONTRAST VOLUME: mL FINDINGS: CT confirms appropriate entry of the needle for the bone marrow aspiration and biopsy without bleeding post procedure. CT also confirms the needle in proper position in the retroperitoneal adenopathy on the left side and again postprocedure there is some air in the mass but no bleeding is seen IMPRESSION: 1. . Bone marrow aspiration and biopsy performed 2. Biopsy retroperitoneal lymphadenopathy performed PLAN/FOLLOW UP: Dr. Israel, IR Attending, was present for the procedure. HEMATOLOGY INR 1.02 0.85 - 11/28 [facility] 1.17 [facility] HEMATOLOGY PT 13.4 s 12.0 - 11/28 [facility] 14. [facility] HEMATOLOGY PTT 61.0 s 22.9 - 11/28 [facility] 35.8 [facility] ANEMIA Ferritin Lvl 151 ng/mL 5 - 204 11/28 [facility] CHEM PANEL Phosphorus 3.1 mg/dL 2.5 - 4.5 11/[address] CHEM PANEL Magnesium 1.7 mg/dL 1.8 - 2.4 11/28 [facility] CHEM PANEL eGFR 38 11/28 Result Comment: The eGFR is calculated using the CKD-EPI formula. In most young, healthy individuals the eGFR will be >90 mL/ min/1.73m2. The eGFR declines with age. An eGFR of 60-89 may be normal in [facility] mL/min/1 some populations, particularly the elderly, for whom the CKD-EPI formula has not been extensively validated. Use of the eGFR is not recommended in the following populations: [address] Individuals with unstable creatinine concentrations, including patients and those with serious co-morbid conditions. Patients with extremes in muscle mass or diet. The data above are obtained from the National Kidney Disease Education Program (NKDEP) which additionally recommends that when the eGFR is used in patients with extremes of body mass index for purposes of drug dosing, the eGFR should be multiplied by the estimated BMI. CHEM PANEL Chloride Lvl 101 meq/L 95 - 109 11/[address] CHEM PANEL Potassium 4.2 meq/L 3.5 - 5.1 11/28 [facility] CHEM PANEL Sodium Lvl 135 meq/L 135 - 145 11/[address] CHEM PANEL BUN 49 mg/dL 7 - 22 11/[address] CHEM PANEL Creatinine 1.31 mg/dL 0.50 - 02 [facility] Lvl 1.40 [facility] CHEM PANEL AGAP 12.2 meq/L 10.0 - 11/28 [facility] 20.0 [facility] CHEM PANEL CO2 26 meq/L 24 - 32 11/[address] CHEM PANEL Calcium Lvl 9.2 mg/dL 8.5 - 10.5 11/[address] CHEM PANEL Glucose Lvl 119 mg/dL 70 - 99 11/[address] CHEM PANEL Uric Acid null 2.5 - 7.[address] [place] [address] HEMATOLOGY Platelet 75 K/CMM 133 - 450 02/ [facility] [address] [place] [address] HEMATOLOGY MPV 9.3 fL 7.4 - 10.4 11/28 2017 [facility] HEMATOLOGY MCHC 32.5 g/dL 32.0 - 02 [place] 36.0 /2017 [facility] HEMATOLOGY RDW 21.2 % 11.5 - 02/ 14.5 /2017 [facility] HEMATOLOGY Hgb 7.2 g/dL 12.0 - 02 [place] 16.0 /2018 [facility] HEMATOLOGY RBC 2.20 M/CMM 4.20 - 02/ [place] 5.40 /2018 [facility] HEMATOLOGY Hct 22.0 % 36.0 - 02/ [facility] 48.0 /2017 [facility] HEMATOLOGY MCH 32.6 pg 27.0 - 11/28 [facility] 31.0 /2017 [facility] HEMATOLOGY MCV 100.2 fL 80.0 - 11/28 [facility] 98.0 /2017 [facility] HEMATOLOGY WBC 30.1 K/CMM 3.7 - 10.4 11/28 [facility] [address] [place] [address] HEMATOLOGY Macrocyte 1+ None Seen 11/28 [facility]* [place] (11/28/17 1:22 AM) HEMATOLOGY Smudge Moderate None Seen 11/28 [facility]* [place] (11/28/17 1:22 AM) HEMATOLOGY Lymphocytes 93.6 % 20.0 - 11/28 [facility] 40.0 /2018 [facility] HEMATOLOGY Monocytes 0.6 % 2.0 - 12.[address] HEMATOLOGY Segs 5.6 % 45.0 - 11/28 [place] 75.0 /2018 [facility] HEMATOLOGY Eosinophils 0.1 % 0.0 - 4.0 11/[address] HEMATOLOGY Lymphocytes 28.2 K/CMM 1.0 - 5.5 02 [facility] # /2017 [facility] HEMATOLOGY Monocytes # 0.2 K/CMM 0.0 - 0.8 11/[address] HEMATOLOGY Anisocyte 1+ None Seen 11/28 [facility] [address] [place] [address]* [place] (11/28/17 1:22 AM) HEMATOLOGY Basophils 0.1 % 0.0 - 1.0 11/[address] HEMATOLOGY Segs-Bands # 1.7 K/CMM 1.5 - 8.1 11/28 [facility] [address] [place] [address] PARATHYROID PTH Intact 103.9 11.1 - 02 [facility] PROFILE pg/mL 79.5 [facility] CHEM PANEL Uric Acid 3.5 mg/dL 2.5 - 7.0 11/[address] CHEM PANEL Phosphorus 3.8 mg/dL 2.5 - 4.5 11/[address] HEMATOLOGY PTT 58.9 s 22.9 - 02 [facility] 35.8 [facility] ANEMIA Ferritin Lvl 146 ng/mL 5 - 204 11/27 [facility] STUDY [facility] CHEM PANEL eGFR 39 11/27 Result Comment: The eGFR is calculated using the CKD-EPI formula. In most young, healthy individuals the eGFR will be >90 mL/ min/1.73m2. The eGFR declines with age. An eGFR of 60-89 may be normal in [facility] mL/min/1.7 some populations, particularly the elderly, for whom the CKD-EPI formula has not been extensively validated. Use of the eGFR is not recommended in the following populations: [address] Individuals with unstable creatinine concentrations, including patients and those with serious co-morbid conditions. Patients with extremes in muscle mass or diet. The data above are obtained from the National Kidney Disease Education Program (NKDEP) which additionally recommends that when the eGFR is used in patients with extremes of body mass index for purposes of drug dosing, the eGFR should be multiplied by the estimated BMI. CHEM PANEL Sodium Lvl 134 meq/L 135 - 145 11/27 [facility] [address] [place] [address] CHEM PANEL Creatinine 1.30 mg/dL 0.50 - 11/27 [facility] Lvl 1.40 [facility] CHEM PANEL Chloride Lvl 99 meq/L 95 - 109 11/[address] CHEM PANEL Potassium 4.3 meq/L 3.5 - 5.1 11/[address] [facility] CHEM PANEL CO2 24 meq/L 24 - 32 11/[address] CHEM PANEL AGAP 15.3 meq/L 10.0 - 11/27 [facility] 20.0 [facility] CHEM PANEL Calcium Lvl 9.7 mg/dL 8.5 - 10.5 11/[address] CHEM PANEL BUN 47 mg/dL 7 - 22 11/27 [facility] [address] [place] [address] CHEM PANEL Glucose Lvl 139 mg/dL 70 - [address] HEMATOLOGY INR 1.06 0.85 - 11/27 [facility] 1.17 [facility] HEMATOLOGY PT 13.8 s 12.0 - 11/27 [facility] 14.7 [facility] HEMATOLOGY Anisocyte 1+ None Seen 11/27 [facility]* [place] (11/27/17 2:07 AM) HEMATOLOGY Tot Cell Ct 200 11/[address] HEMATOLOGY Smudge Moderate None Seen 11/[address] [place] [address]* [place] (11/27/17 2:07 AM) HEMATOLOGY Polychrom Moderate None Seen 11/27 [facility]2017 [facility] (11/27/17 2:07 AM) HEMATOLOGY Bands 0.0 % 0.0 - 11.0 11/[address] HEMATOLOGY Plt Morph Normal 11/[address] (11/27/17 2:07 AM) [place] HEMATOLOGY Segs 9.0 % 45.0 - 11/27 [facility] 75.0 [facility] HEMATOLOGY Monocytes 1.0 % 2.0 - 12.0 11/[address] HEMATOLOGY Lymphocytes 90.0 % 20.0 - 02 [facility] 40.0 [facility] HEMATOLOGY Atypical 0.0 % <=0.0 % 11/27 [facility] Lymphs [facility] HEMATOLOGY Lymphocytes 27.6 K/CMM 1.0 - 5.5 11/27 [facility] # /2017 [facility] HEMATOLOGY Monocytes # 0.3 K/CMM 0.0 - 0.8 11/[address] HEMATOLOGY Segs-Bands # 2.8 K/CMM 1.5 - 8.[address] HEMATOLOGY RBC 2.19 M/CMM 4.20 - 02 [facility] 5.40 [facility] HEMATOLOGY WBC 30.7 K/CMM 3.7 - 10.4 11/[address] HEMATOLOGY Hgb 7.2 g/dL 12.0 - 02 [facility] 16.0 [facility] HEMATOLOGY MCHC 32.7 g/dL 32.0 - 02 [facility] 36.0 [facility] HEMATOLOGY MCH 32.6 pg 27.0 - 11/27 [facility] 31.0 [facility] HEMATOLOGY MCV 99.9 fL 80.0 - 11/27 [facility] 98.0 [facility] HEMATOLOGY Hct 21.9 % 36.0 - 11/27 [facility] 48.0 [facility] HEMATOLOGY RDW 22.1 % 11.5 - 11/27 [facility] 14.5 [facility] HEMATOLOGY Platelet 74 K/CMM 133 - 450 11/27 [facility]2017 [facility] HEMATOLOGY MPV 9.1 fL 7.4 - 10.4 11/[address] PARATHYROID PTH Intact 95.6 pg/mL 11.1 - 11/27 [facility] PROFILE 79.5 [facility] CHEM PANEL Vitamin D 40 pg/mL 11/26 Result Comment: Reference Range: [facility] 1,25 [place] Adults: 21 - 65 [facility] CHEM PANEL Vitamin D3 40 pg/mL 11/26 Result Comment: Performed At: [facility] ,25 ([place]) [address] [place] [address] [phone] [facility] Trini Lao MD Ph:[phone] [place] CHEM PANEL Vitamin D2 null 11/26 [facility] ,25 ([place] [facility] PARATHYROID Parathyroid null 11/26 Result Comment: Reference Range: [facility] All Ages: <2.0 Medical Related The PTHrP assay should not be used to exclude cancer or Center Peptide screen tumor patients for humoral hypercalcemia of malignancy (HHM). The results should always be assessed in conjunction with the patient's medical history, clinical examination, and other findings. If test results are clinically discordant, please contact the laboratory. Performed At: [facility] [address] [place] [address] [id number] Trini Lao MD Ph:[phone] HEMATOLOGY Bands 1.0 % 0.0 - 11.0 11/26 [facility]2017 [facility] HEMATOLOGY Plt Morph Normal 11/26 [facility] (11/26/17 8:35 AM) Center HEMATOLOGY Atypical 0.0 % <=0.0 % 11/26 [facility] Lymph [facility] HEMATOLOGY Polychrom Moderate None Seen 11/26 [facility] *ABN* [place] (11/26/17 8:35 AM) HEMATOLOGY Macrocyte 1+ None Seen 11/26 [facility] *[facility]* [place] (11/26/17 8:35 AM) HEMATOLOGY Hypochrom 1+ None Seen 11/26 [facility] (11/26/17 8:35 AM) [place] HEMATOLOGY Smudge Moderate None Seen 11/26 [facility] *[facility]* [place] (11/26/17 8:35 AM) BODY FLUIDS Clarity BF Moderate Cloudy Clear 11/25 [facility] *[facility]* [place] (11/25/17 5:24 PM) BODY FLUIDS Color BF Dark Yellow Colorless 11/25 [facility] (11/25/17 5:24 PM) [place] BODY FLUIDS CellCnt BF Synovial 11/25 [facility] (11/25/17 5:24 PM) [place] BODY FLUIDS Macrophage 5 % 11/25 [facility] [place] [id number] /mm3 11/25 [facility] [place] [id number] /mm3 11/25 [facility] BODY FLUIDS Lymph BF 1 % 11/25 [facility] BODY FLUIDS Segs BF 94 % 11/25 [facility] BODY FLUIDS Crystal BF Synovial 11/25 [facility] (11/25/17 5:24 PM) [place] BODY FLUIDS Crystal BF [place]re Na Urate Negative 11/25 [facility]* [place] (11/25/17 5:24 PM) Hand 3 Hand 3 views EXAM: RIGHT HAND 3 VIEWS 11/25 - [facility] views DX - Medical EXAM: LEFT HAND 3 VIEWS [place] Read by: Terell Sanchez MD Dictated Date/time: 11/26/17 07:24 DATE: 11/25/2017 6:02 PM [employer] Electronically Signed by: Terell Sanchez MD 11/26/17 07:30 FINAL REPORT INDICATION: pseudogout - Pseudogout COMPARISON: None TECHNIQUE: PA, lateral and oblique radiographs of each hand FINDINGS: Generalized diminished bone mineral density. Severe joint space narrowing and osteophytes throughout the bilateral DIP joints. Additional severe joint space narrowing with subchondral sclerosi s and small osteophytes of bilateral first CMC and triscaphe joints. There is bilateral narrowing of the radiocarpal joint and osteophyte formation large subarticular cyst in the distal aspect of the le ft ulna and within the right capitate. Mild joint space narrowing and moderate osteophyte formation of the left second MCP joint. Bilateral chondrocalcinosis of the wrists. Chondrocalcinosis of the left second MCP joint. No soft tissue swelling identified. IMPRESSION: 1. Severe osteoarthrosis of the bilateral DIP, first CMC, and triscaphe joints. There findings likely represents primary osteoarthrosis. 2. 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 * Mild joint space narrowing and moderate osteophyte formation of the left second MCP joint with associated chondrocalcinosis. * Bilateral wrist chondrocalcinosis. Foot series Foot series EXAM: RIGHT FOOT 3 VIEWS 11/25 - [place] DX DX - Medical EXAM: LEFT FOOT 3 VIEWS Center Read by: Terell Sanchez MD Dictated Date/time: 11/26/17 07:30 DATE: 11/25/2017 6:02 PM [employer] Electronically Signed by: Terell Sanchez MD 11/26/17 07:32 FINAL REPORT INDICATION: pseudogout - pseudogout COMPARISON: None TECHNIQUE: AP, lateral, and oblique views of each foot. FINDINGS: Generalized based bone mineral density. Bilateral small osteophytes of the first MTP joint without joint space narrowing. No other osteophyte formation. No joint space narrowing or erosions. N o subchondral cysts. Bilateral moderate plantar calcaneal enthesophytes. Bilateral moderate arterial calcification. No chondrocalcinosis identified. IMPRESSION: 1. Bilateral mild first MTP osteoarthrosis. 2. No findings of calcium pyrophosphate 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 Hand 3 Hand 3 views EXAM: RIGHT HAND 3 VIEWS 11/25 - [place] views DX DX /2018 - Medical EXAM: LEFT HAND 3 VIEWS Center Read by: Terell Sanchez MD Dictated Date/time: 11/26/17 07:24 DATE: 11/25/2017 6:02 PM [employer] Electronically Signed by: Terell Sanchez MD 11/26/17 07:30 FINAL REPORT INDICATION: pseudogout - Pseudogout COMPARISON: None TECHNIQUE: PA, lateral and oblique radiographs of each hand FINDINGS: Generalized diminished bone mineral density. Severe joint space narrowing and osteophytes throughout the bilateral DIP joints. Additional severe joint space narrowing with subchondral sclerosi s and small osteophytes of bilateral first CMC and triscaphe joints. There is bilateral narrowing of the radiocarpal joint and osteophyte formation large subarticular cyst in the distal aspect of the le ft ulna and within the right capitate. Mild joint space narrowing and moderate osteophyte formation of the left second MCP joint. Bilateral chondrocalcinosis of the wrists. Chondrocalcinosis of the left second MCP joint. No soft tissue swelling identified. IMPRESSION: 1. Severe osteoarthrosis of the bilateral DIP, first CMC, and triscaphe joints. There findings likely represents primary osteoarthrosis. 2. 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 * Mild joint space narrowing and moderate osteophyte formation of the left second MCP joint with associated chondrocalcinosis. * Bilateral wrist chondrocalcinosis. Foot series Foot series EXAM: RIGHT FOOT 3 VIEWS 11/25 - [facility] - Medical EXAM: LEFT FOOT 3 VIEWS Center Read by: Terell Sanchez MD Dictated Date/time: 11/26/17 07:30 DATE: 11/25/2017 6:02 PM [employer] Electronically Signed by: Terell Sanchez MD 11/26/17 07:32 FINAL REPORT INDICATION: pseudogout - pseudogout COMPARISON: None TECHNIQUE: AP, lateral, and oblique views of each foot. FINDINGS: Generalized based bone mineral density. Bilateral small osteophytes of the first MTP joint without joint space narrowing. No other osteophyte formation. No joint space narrowing or erosions. N o subchondral cysts. Bilateral moderate plantar calcaneal enthesophytes. Bilateral moderate arterial calcification. No chondrocalcinosis identified. IMPRESSION: 1. Bilateral mild first MTP osteoarthrosis. 2. No findings of calcium pyrophosphate 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 HEMATOLOGY Eosinophils 0.1 % 0.0 - 4.0 11/[address] HEMATOLOGY Basophils 0.3 % 0.0 - 1.0 11/[address] HEMATOLOGY Basophils # 0.1 K/CMM 0.0 - 0.2 11/[address] HEMATOLOGY Hypochrom 1+ None Seen 11/[address] (11/25/17 5:26 AM) [place] Knee 3 Knee 3 views EXAM: XR RIGHT KNEE 3 VIEWS 11/24 - [facility] views DX - [facility] DATE: 11/24/2017 10:36 AM [employer] Read by: Davonte Ramires MD Dictated Date/time: 11/25/17 08:33 Electronically Signed by: Davonte Ramires MD 11/25/17 08:38 FINAL REPORT INDICATION: - Knee pain/swelling COMPARISON: None available TECHNIQUE: 3 views of the knee FINDINGS: No acute fracture or malalignment is identified. There is focal irregular erosion along the superior articular surface of the patella. Minimal subchondral lucency seen along the notch/central anterior aspect of the weightbearing lateral femoral condyle. Minimal tricompartment osteophytes are present. Joint spaces are maintained in all 3 compartments. Small joint effusion. Diffuse osteopenia. Meniscal classifications seen in medial and lateral compartments. Atherosclerotic vascular ossifications. IMPRESSION: 1. Minimal tricompartmental degenerative changes. 2. Focal erosion along the superior articular surface of the patella and subcortical lucency along the lateral femoral condyle, which may represent subchondral cystic changes. Further evaluation with MRI of the knee is recommended. 3. Chondrocalcinosis. 4. Small joint effusion. PET CT PET CT Tumor EXAM: [place] PET CT Skull Base to Mid Thigh 11/24 - [facility] Tumor imaging-[facility] /2018 - Medical imaging-[facility] This report was dictated by a Dental Ceramist Helper/Fellow. I have personally reviewed the images as Center [facility] [place] well as the Resident's interpretation and agree with the findings. DATE: 11/24/2017 10:48 AM [employer] Read by: Fela Lewis MD Resident: Fela Lewis MD Dictated Date/time: 11/25/17 09:41 Electronically Signed by: Jarrod Hannah MD 11/25/17 16:41 FINAL REPORT INDICATION: Lung Mass - Known history CLL COMPARISON: CTA chest abdomen pelvis dated 10/21/2017. TECHNIQUE: Approximately 60 minutes after IV injection of 19.9 mCi FDG, PET /CT imaging was performed from the level of the skull base to the midthigh. FINDINGS: Head and neck: There is cervical lymphadenopathy with minimal FGD uptake. There is no abnormal increased or decreased FDG activity in the imaged brain. Chest: There is axillary, mediastinal, and hilar lymphadenopathy with minimal FDG uptake. For example, a subcarinal 2.5 cm lymph node has an SUV of 3.4 (series 352, image 54). Small 4-5 mm nodule in the right upper lobe have mild FDG uptake and may be infectious (series 2, image 103).There are small bilateral pleural effusions. There are post surgical changes of prior aortic valve replacement. An AICD is in place. Abdomen and pelvis: There is bulky retroperitoneal, mesenteric, and pelvic lymphadenopathy. Most of the lymphadenopathy demonstrates low grade FDG activity , however, some of the left retroperitoneal and pelvic lymph nodes have significantly higher activity. For example, a left iliac node measures 3.5 cm and has a max SUV of 5.9 (series 352, image 101) . Additional nodes with higher FDG uptake are seen in the left iliac chain and left periaortic region (series 352, images 88 and 95). No focal abnormal FDG uptake is identified in the liver, bilateral adrenals , spleen, or pancreas. The spleen is enlarged measuring 15 cm in length. Skeleton: No focal abnormal FDG activity is identified in the skeleton to suggest bony metastasis. IMPRESSION: 1. Low grade FDG avid lymphadenopathy above and below the diaphragm is consistent with chronic lymphoma, however, three lymph nodes in the left retroperitoneum and pelvis have higher FDG uptake concerning for deterioration to a more acute lymphoma. 2. Mildly FDG avid small right upper lobe pulmonary nodules may be infectious. HEMATOLOGY Eosinophils 0.1 % 0.0 - 4.0 11/[address] HEMATOLOGY Basophils # 0.1 K/CMM 0.0 - 0.2 11/[address] HEMATOLOGY Basophils 0.4 % 0.0 - 1.0 11/[address] CHEM PANEL B/C Ratio 26 6 - 25 11/[address] CHEM PANEL A/G Ratio 0.6 0.7 - 1.6 11/[address] CHEM PANEL Globulin 5.2 g/dL 2.7 - 4.2 11/[address] CHEM PANEL Albumin Lvl 2.9 g/dL 3.5 - 5.0 11/[address] CHEM PANEL ALT 11 unit/L 0 - 65 11/[address] CHEM PANEL AST 16 unit/L 0 - 37 11/[address] CHEM PANEL Alk Phos 71 unit/L 39 - 136 11/[address] CHEM PANEL Total 8.1 g/dL 6.4 - 8.4 11/23 [facility] Protein [address] CHEM PANEL Bili Total 0.6 mg/dL 0.2 - 1.3 11/[address] HEMATOLOGY Eosinophils 0.3 K/CMM 0.0 - 0.5 11/23 [facility] # 2017 [facility] CHEM PANEL Bili Total 0.8 mg/dL 0.2 - 1.3 11/[address] CHEM PANEL Albumin Lvl 2.7 g/dL 3.5 - 5.0 11/[address] CHEM PANEL Alk Phos 65 unit/L 39 - 136 11/[address] CHEM PANEL AST 24 unit/L 0 - 37 11/[address] CHEM PANEL B/C Ratio 24 6 - 25 11/[address] CHEM PANEL ALT 7 unit/L 0 - 65 11/[address] CHEM PANEL A/G Ratio 0.6 0.7 - 1.6 11/[address] CHEM PANEL Total 7.3 g/dL 6.4 - 8.4 11/22 [facility] Protein [address] CHEM PANEL Globulin 4.6 g/dL 2.7 - 4.2 11/[address] CHEM PANEL Magnesium 2.5 mg/dL 1.8 - 2.4 11/21 [facility] Lvl [facility] PARATHYROID Ca Ion WB 1.17 . - 11/21 [place] PROFILE mMol/L . [facility] PARATHYROID Ca Norm WB 1.19 . - 11/21 [facility] PROFILE mMol/L . [facility] HEMATOLOGY Blasts 0.0 % <=0.0 % 11/[address] PARATHYROID Ca Norm WB 1.22 . - 11/21 [facility] PROFILE mMol/L . [facility] PARATHYROID Ca Ion WB 1.21 . - 11/21 [facility] PROFILE mMol/L 1. [facility] CARDIAC Total CK 20 unit/L 12 - 191 11/21 [facility] ENZYMES [address] CHEM PANEL LDH 344 unit/L 98 - 192 11/[address] CHEM PANEL Plasma 10 mg/dL 0 - 10 11/21 [facility] Hemoglobin [address] CHEM PANEL A/G Ratio 0.6 0.7 - 1.6 11/[address] CHEM PANEL Globulin 4.7 g/dL 2.7 - 4.2 11/[address] CHEM PANEL AST 17 unit/L 0 - 37 11/[address] CHEM PANEL ALT 8 unit/L 0 - 65 11/[address] CHEM PANEL Albumin Lvl 2.8 g/dL 3.5 - 5.0 11/[address] CHEM PANEL Total 7.5 g/dL 6.4 - 8.4 11/21 [facility] Protein [address] CHEM PANEL Bili 0.6 mg/dL 0.0 - 1.0 11/21 [facility] Indirect [address] CHEM PANEL Bili Direct 0.3 mg/dL 0.0 - 0.3 11/[address] CHEM PANEL Bili Total 0.9 mg/dL 0.2 - 1.3 11/[address] CHEM PANEL Alk Phos 68 unit/L 39 - 136 11/[address] IMMUNOLOGY Haptoglobin 203 mg/dL 16 - 200 11/[address] URINE AND UA Sq Epi None Seen 11/[address] URINE AND UA <=1.0 0.1 - 1.0 11/21 [facility] [facility] Urobilinogen mg/dL /[address] [place] [address] URINE AND UA Bacteria Few /HPF None Seen 11/21 [facility] STOOL /HPF /[address] [place] [address] URINE AND UA Mucus Few /LPF None Seen 11/21 [facility] STOOL /LPF /[address] [place] [address] URINE AND UA Leuk Est Negative Negative 11/[address] (11/20/17 6:30 PM) [place] URINE AND UA RBC null 0 - 2 11/[address] URINE AND UA Bili Negative Negative 11/[address] [place] (11/20/17 6:30 PM) URINE AND UA Blood Negative Negative 11/[address] (11/20/17 6:30 PM) [place] URINE AND UA Nitrite Negative Negative 11/21 [facility] [place] [address] (11/20/17 6:30 PM) [place] URINE AND UA WBC 1 /HPF 0 - 5 11/[address] URINE AND UA pH 5.0 5.0 - 8.0 11/[address] URINE AND UA Protein Negative Negative 11/21 [facility] mg/dL mg/dL [address] [place] [address] URINE AND UA Ketones Negative Negative 11/21 [facility] mg/dL mg/dL [address] [place] [address] URINE AND UA Spec Grav 1.005 <=1.030 11/[address] URINE AND UA Color Light Yellow Yellow 11/21 [facility] [address] [place], [place] [address]NA* Center (11/20/17 6:30 PM) URINE AND UA Turbidity Clear Clear 11/[address] (11/20/17 6:30 PM) [place] URINE AND UA Glucose Negative Negative 11/21 [facility] mg/dL mg/dL [address] [place] [address] URINE CHEM U Sodium 109 meq/L 11/[address] URINE CHEM U Protein null 11/[address] URINE CHEM U Creatinine 10.30 11/21 [facility] mg/dL /[address] [place] [address] URINE CHEM U Prot/Creat null 11/[address] PARATHYROID Ca Ion WB 1.18 1.05 - 11/20 [facility] PROFILE mMol/L . [facility] PARATHYROID Ca Norm WB 1.18 1.05 - 11/20 [facility] PROFILE mMol/L . [facility] CARDIAC BNP 351 pg/mL <=100 11/20 [facility] ENZYMES pg/mL /[address] [place] [address] HEMATOLOGY Blasts 16.0 % <=0.0 % 11/[address] HEMATOLOG[address] Tot Cell Ct 400 11/[address] Chest 1view Chest 1view EXAM: XR CHEST 1 VIEW 11/20 - [facility] DX DX - [facility] DATE: 11/20/2017 4:05 AM [employer] Read by: Meredith Jaimes MD Dictated Date/time: 11/20/17 09:33 Electronically Signed by: Meredith Jaimes MD 11/20/17 10:33 FINAL REPORT INDICATION: - r/o pulm edema. FINDINGS: Comparison is made to yesterday evening. There are diffuse bilateral airspace opacities, greater on the left. They have increased and could be due to asymmetric edema or pneumonia. Bilateral pleural effusions continue to obscure both lung bases. The cardiomediastinal silhouette is stable with TAVR in place. A left subclavian ICD is stable. IMPRESSION: 1. Bilateral airspace disease has increased, greater on the left. 2. Persistent bilateral pleural effusions. CHEM PANEL Lactic Acid 1.1 mMol/L 0.5 - 2.2 11/20 [facility] Lvl [facility] BLOOD BANK RBC product Product available 11/20 [facility] RESULTS Medical (11/19/17 6:49 PM) [place] BLOOD BANK ABO/Rh O NEG 11/20 [facility] RESULTS [facility] BLOOD BANK Antibody Negative 11/20 [facility] RESULTS Scrn [facility] (11/19/17 6:24 PM) [place] CARDIAC Troponin-I null 0.00 - 11/20 [facility] ENZYMES 0. [facility] HEMATOLOGY Tot Cell Ct 200 11/20 [facility] HEMATOLOGY Blasts 25.0 % <=0.0 % 11/20 Result Comment: Medical Previuosely Center blast was released HEMATOLOGY D-Dimer 1.72 ug/mL 11/20 [facility] FEU /2017 [facility] Chest 1view Chest 1view EXAM: XR CHEST 1 VIEW 11/19 - [facility] DX DX - [facility] This report was dictated by a Dental Ceramist Helper/Fellow. I have personally reviewed the images as Center well as the Resident's interpretation and agree with the findings. DATE: 11/19/2017 5:19 PM [employer] Read by: Kike Lea MD Resident: Kike Lea MD Dictated Date/time: 11/19/17 17:38 Electronically Signed by: Gianna Nugent MD 11/19/17 17:45 FINAL REPORT INDICATION: - sob, s/p surgery mvr, no e/o pna clinically, concern for anemia > PE COMPARISON: Chest x-ray October 31, 2017 [place] SECTION: ER TECHNIQUE: AP chest FINDINGS: Lines, tubes and hardware: Left approach AICD and mitral valve prosthesis present. Lungs and pleura: Development of patchy bibasilar airspace opacities with blunting the costophrenic angle bilaterally. Pulmonary vascular congestion is also present. Heart and mediastinum: The heart size is normal for technique. The mediastinal contours are normal. Bones: No acute bony abnormality is identified. Degenerative changes are seen throughout the thoracic spine and within the acromioclavicular joints. Soft tissues: Rounded high density object within the left axilla may represent a calcified lymph node. IMPRESSION: Development of small bilateral pleural effusions and patchy bibasilar airspace opacities which may represent pulmonary edema/atelectasis or, less likely, pneumonia. CHEM PANEL Phosphorus 2.7 mg/dL 2.5 - 4.5 11/[address] CHEM PANEL Magnesium 1.6 mg/dL 1.8 - 2.4 11/02 [facility] ELECTROLYTE AGAP 16.5 meq/L 10.0 - 11/02 [facility] 20.0 [facility] ELECTROLYTE eGFR 44 11/02 Result Comment: The eGFR is calculated using the CKD-EPI formula. In most young, healthy individuals the eGFR will be >90 mL/ min/1.73m2. The eGFR declines with age. An eGFR of 60-89 may be normal in [facility] mL/min/1. some populations, particularly the elderly, for whom the CKD-EPI formula has not been extensively validated. Use of the eGFR is not recommended in the following populations: [address] Individuals with unstable creatinine concentrations, including patients and those with serious co-morbid conditions. Patients with extremes in muscle mass or diet. The data above are obtained from the National Kidney Disease Education Program (NKDEP) which additionally recommends that when the eGFR is used in patients with extremes of body mass index for purposes of drug dosing, the eGFR should be multiplied by the estimated BMI. ELECTROLYTE Creatinine 1.18 mg/dL 0.50 - 11/02 [facility] Lvl 1.40 [facility] ELECTROLYTE Sodium Lvl 137 meq/L 135 - 145 11/[address] ELECTROLYTE Chloride Lvl 103 meq/L 95 - 109 11/[address] ELECTROLYTE CO2 22 meq/L 24 - 32 11/[address] ELECTROLYTE Glucose Lvl 155 mg/dL 70 - 99 11/[address] ELECTROLYTE BUN 28 mg/dL 7 - 22 11/[address] ELECTROLYTE Potassium 4.5 meq/L 3.5 - 5.1 11/02 [facility] S Lvl /2017 [facility] ELECTROLYTE Calcium Lvl 8.8 mg/dL 8.5 - 10.5 11/02 [facility] S /2017 [facility] HEMATOLOGY INR 1.06 0.85 - 11/02 [place] 1.17 [facility] HEMATOLOGY PT 13.8 s 12.0 - 11/02 [facility] 14.7 [facility] HEMATOLOGY PTT 34.2 s 22.9 - 11/02 [place] 35.8 [facility] HEMATOLOGY RBC 2.75 M/CMM 4.20 - 11/02 [place] 5.40 [facility] HEMATOLOGY MCV 95.5 fL 80.0 - 11/02 [facility] 98.0 [facility] HEMATOLOGY MCH 31.2 pg 27.0 - 11/02 [facility] 31.0 [facility] HEMATOLOGY Hgb 8.6 g/dL 12.0 - 11/02 [facility] 16.0 [facility] HEMATOLOGY WBC 33.2 K/CMM 3.7 - 10.4 11/[address] HEMATOLOGY Hct 26.3 % 36.0 - 11/02 [facility] 48.0 [facility] HEMATOLOGY MPV 8.9 fL 7.4 - 10.4 11/[address] HEMATOLOGY Platelet 90 K/CMM 133 - 450 11/[address] HEMATOLOGY RDW 19.2 % 11.5 - 11/02 [facility] 14.5 [facility] HEMATOLOGY MCHC 32.7 g/dL 32.0 - 11/02 [facility] 36.0 [facility] HEMATOLOGY Tot Cell Ct 100 11/02 [facility] HEMATOLOGY Plt Morph Normal 11/02 [facility] (11/02/17 4:34 AM) [place] HEMATOLOGY RBC Morph Normal 11/02 [facility] (11/02/17 4:34 AM) [place] HEMATOLOGY Atypical 0.0 % <=0.0 % 11/02 [facility] Lymphs [facility] HEMATOLOGY Monocytes 2.0 % 2.0 - 12.0 11/[address] HEMATOLOGY Lymphocytes 95.0 % 20.0 - 11/02 [facility] 40.0 2018 [facility] HEMATOLOGY Bands 0.0 % 0.0 - 11.0 11/[address] HEMATOLOGY Segs 3.0 % 45.0 - 11/02 [facility] 75.0 [facility] HEMATOLOGY Monocytes # 0.7 K/CMM 0.0 - 0.8 11/02 [facility] HEMATOLOGY Segs-Bands # 1.0 K/CMM 1.5 - 8.1 11/[address] [place] [address] HEMATOLOGY Lymphocytes 31.5 K/CMM 1.0 - 5.5 11/02 [facility] # [facility] HEMATOLOGY Smudge Moderate None Seen 11/02 [facility] *ABN* Center (11/02/17 4:34 AM) HEMATOLOGY Hct 23.2 % 36.0 - 11/02 [facility] 48.0 [facility] HEMATOLOGY Hgb 7.7 g/dL 12.0 - 11/02 [facility] 16.0 [facility] BLOOD BANK RBC product Product available 11/01 [facility] (11/01/17 7:10 AM) [place] CARDIAC BNP 384 pg/mL <=100 11/01 [facility] ENZYMES pg/mL [facility] CHEM PANEL Magnesium 2.2 mg/dL 1.8 - 2.4 11/01 [facility] Lvl [facility] CHEM PANEL Globulin 4.5 g/dL 2.7 - 4.2 11/[address] CHEM PANEL A/G Ratio 0.6 0.7 - 1.6 11/[address] CHEM PANEL B/C Ratio 22 6 - 25 11/[address] CHEM PANEL AGAP 17.7 meq/L 10.0 - 11/01 [facility] 20.0 [facility] CHEM PANEL eGFR 54 11/01 Result Comment: The eGFR is calculated using the CKD-EPI formula. In most young, healthy individuals the eGFR will be >90 mL/ min/1.73m2. The eGFR declines with age. An eGFR of 60-89 may be normal in [facility] mL/min/11.02 some populations, particularly the elderly, for whom the CKD-EPI formula has not been extensively validated. Use of the eGFR is not recommended in the following populations: [address] Individuals with unstable creatinine concentrations, including patients and those with serious co-morbid conditions. Patients with extremes in muscle mass or diet. The data above are obtained from the National Kidney Disease Education Program (NKDEP) which additionally recommends that when the eGFR is used in patients with extremes of body mass index for purposes of drug dosing, the eGFR should be multiplied by the estimated BMI. CHEM PANEL Bili Total 0.5 mg/dL 0.2 - 1.3 11/[address] CHEM PANEL Alk Phos 58 unit/L 39 - 136 11/[address] CHEM PANEL AST 19 unit/L 0 - 37 11/[address] CHEM PANEL Glucose Lvl 143 mg/dL 70 - 99 11/[address] CHEM PANEL Total 7.2 g/dL 6.4 - 8.4 11/01 [facility] CHEM PANEL Calcium Lvl 8.9 mg/dL 8.5 - 10.5 11/[address] CHEM PANEL CO2 20 meq/L 24 - 32 11/[address] CHEM PANEL Albumin Lvl 2.7 g/dL 3.5 - 5.0 11/[address] CHEM PANEL ALT 7 unit/L 0 - 65 11/[address] CHEM PANEL Creatinine 0.99 mg/dL 0.50 - 11/01 [facility] Lvl 1.40 [facility] CHEM PANEL BUN 22 mg/dL 7 - 22 11/[address] CHEM PANEL Sodium Lvl 142 meq/L 135 - 145 11/[address] CHEM PANEL Chloride Lvl 109 meq/L 95 - 109 11/[address] CHEM PANEL Potassium 4.7 meq/L 3.5 - 5.1 11/01 [facility] CHEM PANEL Phosphorus 3.7 mg/dL 2.5 - 4.5 11/[address] HEMATOLOGY INR 1.07 0.85 - 11/01 [facility] 1.17 [facility] HEMATOLOGY PTT 32.8 s 22.9 - 11/01 [place] 35.8 [facility] HEMATOLOGY PT 13.9 s 12.0 - 11/01 [facility] 14.7 [facility] HEMATOLOGY Platelet 90 K/CMM 133 - 450 11/[address] HEMATOLOGY WBC 26.3 K/CMM 3.7 - 10.4 11/[address] HEMATOLOGY Hgb 6.9 g/dL 12.0 - 11/01 Result [facility] 16. Comment: Medical Critical [facility] Result(s) called to KIRA CRAWFORD at 11/01/2017 03:48 by AAA. Read back OK. HEMATOLOGY RBC 2.23 M/CMM 4.20 - 11/01 [facility] 5.40 /2017 [facility] HEMATOLOGY MCH 30.9 pg 27.0 - 11/01 [facility] 31.0 [facility] HEMATOLOGY RDW 19.2 % 11.5 - 11/01 [facility] 14.5 [facility] HEMATOLOGY MCHC 32.3 g/dL 32.0 - 11/01 [facility] 36.0 [facility] HEMATOLOGY MCV 95.6 fL 80.0 - 11/01 [facility] 98.0 [facility] HEMATOLOGY Hct 21.3 % 36.0 - 11/01 [facility] 48.0 [facility] HEMATOLOGY MPV 9.0 fL 7.4 - 10.4 11/[address] HEMATOLOGY Lymphocytes 23.7 K/CMM 1.0 - 5.5 11/01 [facility] # [facility] HEMATOLOGY Segs-Bands # 2.4 K/CMM 1.5 - 8.1 11/[address] [place] [address] HEMATOLOGY Segs 9.0 % 45.0 - 11/01 [facility] 75.0 [facility] HEMATOLOGY Monocytes # 0.3 K/CMM 0.0 - 0.8 11/[address] HEMATOLOGY Bands 0.0 % 0.0 - 11.0 11/[address] HEMATOLOGY Monocytes 1.0 % 2.0 - 12.0 11/[address] HEMATOLOGY Lymphocytes 90.0 % 20.0 - 11/01 [facility] 40.0 [facility] HEMATOLOGY Atypical 0.0 % <=0.0 % 11/01 [facility] Lymphs [facility] HEMATOLOGY Smudge Moderate None Seen 11/01 Medical *ABN* Center (11/01/17 2:35 AM) PARATHYROID Ca Ion WB 1.24 1.05 - 11/01 [facility] PROFILE mMol/L . [facility] PARATHYROID Ca Norm WB 1.23 1.05 - 11/01 [facility] PROFILE mMol/L . [facility] ELECTROLYTE Potassium 4.5 meq/L 3.5 - 5.1 11/01 [facility] CHEM PANEL Phosphorus 5.1 mg/dL 2.5 - 4.5 10/[address] CHEM PANEL Magnesium 1.2 mg/dL 1.8 - 2.4 10/[address] [facility] ELECTROLYTE AGAP 15.6 meq/L 10.0 - 10/31 [facility] 20.0 [facility] ELECTROLYTE eGFR 41 10/31 Result Comment: The eGFR is calculated using the CKD-EPI formula. In most young, healthy individuals the eGFR will be >90 mL/ min/1.73m2. The eGFR declines with age. An eGFR of 60-89 may be normal in [facility] mL/min/1.7 some populations, particularly the elderly, for whom the CKD-EPI formula has not been extensively validated. Use of the eGFR is not recommended in the following populations: [address] Individuals with unstable creatinine concentrations, including patients and those with serious co-morbid conditions. Patients with extremes in muscle mass or diet. The data above are obtained from the National Kidney Disease Education Program (NKDEP) which additionally recommends that when the eGFR is used in patients with extremes of body mass index for purposes of drug dosing, the eGFR should be multiplied by the estimated BMI. ELECTROLYTE Creatinine 1.24 mg/dL 0.50 - 10/31 [facility] Lvl 1.40 [facility] ELECTROLYTE Glucose Lvl 190 mg/dL 70 - 99 10/[address] ELECTROLYTE BUN 23 mg/dL 7 - 22 10/[address] ELECTROLYTE Sodium Lvl 138 meq/L 135 - 145 10/[address] ELECTROLYTE Chloride Lvl 104 meq/L 95 - 109 10/[address] ELECTROLYTE CO2 22 meq/L 24 - 32 10/[address] ELECTROLYTE Calcium Lvl 8.4 mg/dL 8.5 - 10.5 10/[address] HEMATOLOGY MPV 8.9 fL 7.4 - 10.4 10/[address] HEMATOLOGY RDW 19.3 % 11.5 - 10/31 [facility] 14.5 [facility] HEMATOLOGY Platelet 78 K/CMM 133 - 450 10/[address] HEMATOLOGY MCH 30.7 pg 27.0 - 10/31 [facility] 31.0 [facility] HEMATOLOGY MCV 95.6 fL 80.0 - 10/31 [place] 98.0 /2017 [facility] HEMATOLOGY MCHC 32.1 g/dL 32.0 - 10/31 [place] 36.0 [facility] HEMATOLOGY WBC 19.6 K/CMM 3.7 - 10.4 10/31 [facility] HEMATOLOGY RBC 2.23 M/CMM 4.20 - 10/31 [place] 5.40 /2017 [facility] HEMATOLOGY Monocytes # 0.1 K/CMM 0.0 - 0.8 10/31 [facility] HEMATOLOGY Lymphocytes 18.6 K/CMM 1.0 - 5.5 10/31 [place] # /2017 [facility] HEMATOLOGY Basophils 0.2 % 0.0 - 1.0 10/31 [facility] HEMATOLOGY Segs-Bands # 0.8 K/CMM 1.5 - 8.1 10/31 /2017 [facility] HEMATOLOGY Eosinophils 0.2 % 0.0 - 4.0 10/31 [facility] HEMATOLOGY Monocytes 0.5 % 2.0 - 12.0 10/31 [facility] HEMATOLOGY Lymphocytes 95.1 % 20.0 - 10/31 [place] 40.0 [facility] HEMATOLOGY Segs 4.0 % 45.0 - 10/31 [place] 75.0 [facility] HEMATOLOGY INR 1.22 0.85 - 10/31 [place] 1.17 [facility] HEMATOLOGY PT 15.5 s 12.0 - 10/31 [place] 14.7 [facility] HEMATOLOGY PTT 33.5 s 22.9 - 10/31 [place] 35.8 [facility] PARATHYROID Ca Norm WB 1.16 1.05 - 10/31 [facility] PROFILE mMol/L 1. [facility] PARATHYROID Ca Ion WB 1.20 1.05 - 10/31 [facility] PROFILE mMol/L 1. [facility] BLOOD BANK FFP product Product available 10/31 [facility] RESULTS /2017 [facility] (10/31/17 1:54 PM) [place] BLOOD BANK RBC product Product available 10/31 [facility] RESULTS [facility] (10/31/17 1:54 PM) [place] Chest 1view Chest 1view EXAM: XR CHEST 1 VIEW 10/31 - [facility] DX DX /2017 - [facility] DATE: 10/31/2017 4:56 PM [employer] Read by: Davon Florez MD Dictated Date/time: 10/31/17 18:27 Electronically Signed by: Davon Florez 10/31/17 18:30 FINAL REPORT INDICATION: Heart failure - s/p tavr COMPARISON: 10/29/2017 TECHNIQUE: AP chest IMPRESSION: ET tube is seen 4.3 cm above the marycarmen. Stable left ICD. In the interval the patient is status post TAVR. Stable cardiomediastinal silhouette. Calcified aortic arch. Mild interval increas e in bilateral asymmetric to the right perihilar opacities which could be from asymmetric edema, subsegmental atelectasis or pneumonia. No pneumothorax given the limitation of a semiupright exam. Unchanged skeletal structures. BLOOD BANK ABO/Rh O NEG 10/31 [facility] RESULTS /2017 [facility] BLOOD BANK Antibody Negative 10/31 [facility] RESULTS [facility] (10/31/17 5:29 AM) Center CHEM PANEL A/G Ratio 0.7 0.7 - 1.6 10/[address] CHEM PANEL Globulin 4.7 g/dL 2.7 - 4.2 10/[address] CHEM PANEL Albumin Lvl 3.1 g/dL 3.5 - 5.0 10/[address] CHEM PANEL Total 7.8 g/dL 6.4 - 8.4 10/31 [facility] [address] CHEM PANEL AST 17 unit/L 0 - 37 10/[address] CHEM PANEL ALT 8 unit/L 0 - 65 10/[address] CHEM PANEL B/C Ratio 18 6 - 25 10/[address] CHEM PANEL Bili Total 0.6 mg/dL 0.2 - 1.3 10/[address] CHEM PANEL Alk Phos 65 unit/L 39 - 136 10/[address] HEMATOLOGY Smudge Moderate None Seen 10/31 [facility] [address] [place] [address] *ABN* Center (10/31/17 5:29 AM) HEMATOLOGY Anisocyte 1+ None Seen 10/31 [facility] [address] [place] [address] *ABN* [place] (10/31/17 5:29 AM) HEMATOLOGY Basophils 0.1 % 0.0 - 1.0 10/[address] HEMATOLOGY Eosinophils 0.2 % 0.0 - 4.0 10/[address] CHEM PANEL AST 15 unit/L 0 - 37 10/[address] CHEM PANEL Bili Total 0.5 mg/dL 0.2 - 1.3 10/[address] CHEM PANEL Alk Phos 68 unit/L 39 - 136 10/[address] CHEM PANEL ALT 8 unit/L 0 - 65 10/[address] CHEM PANEL Albumin Lvl 3.0 g/dL 3.5 - 5.0 10/[address] CHEM PANEL Total 7.8 g/dL 6.4 - 8.4 10/30 [facility] Protein [address] CHEM PANEL A/G Ratio 0.6 0.7 - 1.6 10/[address] CHEM PANEL Globulin 4.8 g/dL 2.7 - 4.2 10/[address] CHEM PANEL B/C Ratio 18 6 - 25 10/[address] URINE AND UA Sq Epi None Seen 10/[address] URINE AND UA Trans Epi RARE <=0 10/[address] URINE AND UA Nitrite Negative Negative 10/[address] (10/29/17 9:10 PM) [place] URINE AND UA 8.0 mg/dL 0.1 - 1.0 10/30 [facility] [facility] Urobilinogen /[address] [place] [address] URINE AND UA Blood Negative Negative 10/[address] (10/29/17 9:10 PM) [place] URINE AND UA Bili Negative Negative 10/[address] *NA* [place] (10/29/17 9:10 PM) URINE AND UA Ketones Negative Negative 10/30 [facility] mg/dL mg/dL /[address] [place] [address] URINE AND UA Bacteria Occasional None Seen 10/30 [facility] /HPF /HPF /[address] [place] [address] URINE AND UA RBC null 0 - 2 10/[address] URINE AND UA WBC 2 /HPF 0 - 5 10/[address] URINE AND UA Hyal Cast 3 /LPF 0 - 2 10/[address] URINE AND UA Mucus Few /LPF None Seen 10/30 [facility] /LPF /[address] [place] [address] URINE AND UA Protein 10 mg/dL Negative 10/30 [facility] STOOL mg/dL /[address] [place] [address] URINE AND UA pH 6.0 5.0 - 8.0 10/[address] URINE AND UA Spec Grav 1.013 <=1.030 10/[address] URINE AND UA Turbidity Clear Clear 10/[address] (10/29/17 9:10 PM) [place] URINE AND UA Leuk Est Moderate Negative 10/30 [facility] [address] [place], [place] [address]ABN* [facility] (10/29/17 9:10 PM) URINE AND UA Color Yellow Yellow 10/30 [address] [place] (10/29/17 9:10 PM) URINE AND UA Glucose Negative Negative 10/30 [facility] mg/dL mg/dL /[address] [place] [address] CARDIAC BNP 223 pg/mL <=100 10/29 [facility] ENZYMES pg/mL /[address] [place] [address] HEMATOLOGY Bands 0.0 % 0.0 - 11.0 10/[address] HEMATOLOGY Atypical 11.0 % <=0.0 % 10/29 [facility] Lymphs /[address] [place] [address] HEMATOLOGY Anisocyte 1+ None Seen 10/29 [facility] [address] [place], [place] [address]ABN* [place] (10/29/17 5:38 PM) HEMATOLOGY Eosinophils 0.0 K/CMM 0.0 - 0.5 10/29 [facility] /[address] [place] [address] HEMATOLOGY Basophils 0.0 % 0.0 - 1.0 10/[address] HEMATOLOGY Eosinophils 0.0 % 0.0 - 4.0 10/[address] HEMATOLOGY Blasts 3.0 % <=0.0 % 10/[address] HEMATOLOGY Basophils # 0.0 K/CMM 0.0 - 0.2 10/[address] Chest 1view Chest 1view EXAM: XR CHEST 1 VIEW 10/29 - [facility] DX DX - Medical This report was dictated by a Dental Ceramist Helper/Fellow. I have personally reviewed the images as Center well as the Resident's interpretation and agree with the findings. DATE: 10/29/2017 8:46 PM [employer] Read by: Humberto Roche MD Resident: Humberto Roche MD Dictated Date/time: 10/30/17 08:43 Electronically Signed by: Kyaw Alarcon MD 10/30/17 16:01 FINAL REPORT INDICATION: - HF COMPARISON: 01/20/2013 chest radiograph. CTA chest, abdomen, pelvis dated . TECHNIQUE: AP chest FINDINGS: Lines, tubes and hardware: Left upper chest pacemaker/ICD is stable. EKG leads project over the chest. Lungs and pleura: Mild interstitial prominence seen bilaterally may relate to early/mild pulmonary edema Blunting of the right costophrenic sulcus may relate to pleural thickening or pleural effusion. Heart and mediastinum: The heart is borderline in size. There are atherosclerotic calcifications of the aortic arch. A coronary stent projects over the left heart. IMPRESSION: 1. Possible mild/early interstitial pulmonary edema. 2. Small bilateral pleural effusions. CHEM PANEL POC 1.3 mg/dL 0.5 - 1.4 10/21 [facility] Creatinine /2017 [facility] CHEM PANEL eGFR 39 10/21 Result Comment: The eGFR is calculated using the CKD-EPI formula. In most young, healthy individuals the eGFR will be >90 mL/ min/1.73m2. The eGFR declines with age. An eGFR of 60-89 may be normal in [facility] mL/min/1.7 some populations, particularly the elderly, for whom the CKD-EPI formula has not been extensively validated. Use of the eGFR is not recommended in the following populations: [address] Individuals with unstable creatinine concentrations, including patients and those with serious co-morbid conditions. Patients with extremes in muscle mass or diet. The data above are obtained from the National Kidney Disease Education Program (NKDEP) which additionally recommends that when the eGFR is used in patients with extremes of body mass index for purposes of drug dosing, the eGFR should be multiplied by the estimated BMI. Heart/coron Heart/lua EXAM: CARDIAC COMPUTED TOMOGRAPHY ANGIOGRAPHY - [facility] estefany art ry art TAVR /2016 - Medical TAVR CTA CTA Center DATE: 10/21/2017 Read by: Nasir Katz MD Dictated Date/time: 10/21/17 12:49 Electronically Signed by: Nasir Katz MD 10/21/17 12:53 FINAL REPORT INDICATION: Aortic stenosis. COMPARISON: None TECHNIQUE: Contrast imaging was performed on a [employer] Aquilion [address] scanner utilizing a single breath hold. Retrospective ECG gating was performed. Images were reformatted at 0.5 mm intervals an d sent to an independent workstation for interpretation. 90 ml of Visipaque 320 IV contrast was delivered via an 18 gauge IV catheter utilizing a power injector at 5 cc/sec and followed by 50 cc of normal saline bolus as a chaser. OVERALL STUDY QUALITY: Good FINDINGS: Aortic valve: Trileaflet, mildly calcified. Aortic valve area: 0.845 sq cm by planimetry. Coronary Arteries: This patient has a right dominant system with the origin of the coronary arteries being normal. Left main: Normal caliber vessel, giving rise to the LAD and left circumflex arteries and a very small ramus intermedius. There is calcified atheroma at the distal aspect of the vessel, which is not resulting into a flow- limiting stenosis. LAD: Normal caliber vessel, with extensive calcification and stents deployed over the proximal and mid segments of the vessel. It is not possible to evaluate for the presence of in stent restenosis or [place] flow-limiting stenosis in this vessel. LCx: Normal caliber, nondominant vessel, with calcified atheroma extending primarily in the proximal and mid segments. There appears to be no flow limiting stenosis in these segments. The distal segment of the vessel is poorly visualized. RCA: Normal caliber, dominant vessel, bifurcating into the PDA posterolateral branches. There is calcified atheroma primarily in the distal segment of the vessel just prior to the bifurcation of the ves evelyne, not resulting into a flow limiting stenosis. Significant motion artifact affecting the proximal and mid segments of the vessel preclude interpretation for possible flow-limiting stenosis in these areas. Myocardium Appearance \\T\\ Function: Left ventricle is normal in size, with systolic function is lower limit of normal. Ejection Fraction: 51% NKP=714 cc ESV=72 cc SV=74 cc Other: AICD leads noted in the right heart chambers. Lung quijano to the extent visualized in limited study: Please see radiologist interpretation for extracardiac findings. IMPRESSION: Aortic valve disease. Coronary artery disease status post PCI. Chest/Abd/P Chest/Abd/Pe EXAM: CTA CHEST WITH AND WITHOUT CONTRAST 10/21 [facility] TAVR lvis TAVR /2016 - Medical CTA CTA EXAM: CTA ABDOMEN AND PELVIS WITH AND WITHOUT CONTRAST Center Read by: Pascual Meredith MD Dictated Date/time: 10/21/17 11:56 DATE: 10/21/2017 7:24 AM [employer] Electronically Signed by: Pascual Meredith MD 10/21/17 14:01 FINAL REPORT INDICATION:82 yearsFemale - Aortic Stenosis COMPARISON: EXAM: CTA CHEST WITH AND WITHOUT CONTRAST EXAM: CTA ABDOMEN AND PELVIS WITH AND WITHOUT CONTRAST DATE: 10/21/2017 7:24 AM [employer] INDICATION:82 yearsFemale - Aortic Stenosis COMPARISON: None. TECHNIQUE: Volumetric CT acquisition of the chest, abdomen and pelvis during precontrast, arterial and venous phases. Axial, coronal and sagittal reconstructions. MIP reformats are created at the acquisition workstation. FINDINGS: Aorta and proximal branches: There is no evidence of intramural or periaortic hematoma. The innominate, proximal subclavian, and common carotid arteries are normal in branching order and size. The celiac trunk, SMA, and ROYER are patent. 2 renal arteries are present bilaterally both of which shows moderate to severe ostial calcification with moderate stenosis. The infrarenal abdominal aorta is within normal limits. The iliac vessels and proximal femoral arteries are normal. The aorta contains extensive atherosclerotic plaque, and measures: cm at the ascending aorta at the level of the pulmonary artery, cm at the mid arch, cm at the descending aorta at the level of the main pulmonary artery, cm at the level of the aortic hiatus, cm at the level of the renal arteries cm just proximal to the iliac bifurcation Right pelvis: cm at the mid right common iliac cm at the right external iliac artery cm at the right common femoral artery at the level of the femoral head Left pelvis: cm at the mid left common iliac cm at the left external iliac artery cm left femoral artery at the level of the femoral head Calcific scores: Ascending aorta: Aortic arch: Descending thoracic aorta: Aorta at diaphragm: Suprarenal abdominal aorta: Infrarenal abdominal aorta: 0 :none 1 :punctate calcifications 2 : <50% of vessel circumference is confluent calcification 3 : >50% of vessel circumference is confluent calcification Lines/tubes: None. Heart and mediastinum: The thyroid gland is normal. No mediastinal, hilar or axillary lymphadenopathy is seen. The heart and pericardium are within normal limits. Pleura: The pleural spaces are clear. Lungs and Airways: The lungs and airways are normal with no focal abnormality demonstrated. ABDOMEN/PELVIS: Hepatobiliary: No focal hepatic lesions. No biliary ductal dilatation. Spleen: No splenomegaly. Pancreas: No focal masses or ductal dilatation. Adrenals: No adrenal nodules. Kidneys/Ureters: No hydronephrosis, stones, or solid mass lesions. Pelvic Organs/Bladder: Unremarkable. Peritoneum/Retroperitoneum: No free air or fluid. Lymph nodes: No lymphadenopathy. Vessels: Unremarkable. Patent main portal vein measuring up to cm. GastrointestinaI Tract: No distention. BONES AND SOFT TISSUE: Unremarkable. IMPRESSION: TECHNIQUE: Volumetric CT acquisition of the chest, abdomen and pelvis during precontrast, arterial and venous phases. Axial, coronal and sagittal reconstructions. MIP reformats are created at the acquisition workstation. FINDINGS: Aorta and proximal branches: There is no evidence of intramural or periaortic hematoma. The innominate, proximal subclavian, and common carotid arteries are normal in branching order and size. The celiac trunk, SMA, and ROYER are patent. 2 renal arteries are present bilaterally both of which shows moderate ostial calcification with mild to moderate stenosis. The infrarenal abdominal aorta shows moderate to severe circumferential scattered atherosclerotic calcification with out any flow limiting stenosis normal limits. The iliac vessels and proximal femoral arteries are normal. The aorta contains extensive atherosclerotic plaque without any flow- limiting stenosis., and measures: 3.3 x 2.7 cm at the ascending aorta at the level of the pulmonary artery, 2.4 cm at the mid arch, 2.3 x 2.0 cm at the descending aorta at the level of the main pulmonary artery, 2.2 x 2.0 cm at the level of the aortic hiatus, 1.5 x 1.5 cm at the level of the renal arteries 1.5 x 1.3 cm just proximal to the iliac bifurcation Right pelvis: 0.8 cm at the mid right common iliac 0.8 cm at the right external iliac artery 0.7 cm at the right common femoral artery at the level of the femoral head Left pelvis: 0.9 cm at the mid left common iliac 0.8 cm at the left external iliac artery 0.7 cm left femoral artery at the level of the femoral head Calcific scores: Ascending aorta: 0 Aortic arch: 1 Descending thoracic aorta: 1 Aorta at diaphragm: 1 Suprarenal abdominal aorta: 2 Infrarenal abdominal aorta: 3 0 :none 1 :punctate calcifications 2 : <50% of vessel circumference is confluent calcification 3 : >50% of vessel circumference is confluent calcification Lines/tubes: Left subclavian intracardiac device in situ Heart and mediastinum: Heterogeneous left thyroid gland required ultrasound evaluation. Multiple mediastinal hilar and axillary lymphadenopathy is seen. Largest right axillary lymph node measure 2.9 x 2.5 cm series 9 image 84 and largest left axillary lymph node measure 3.7 x 2.3 cm series 9 image 76. Also multiple enlarged lymph node into the bilateral neck region. The heart and pericardium are within normal limits. Moderate to severe coronary artery calcification. Pleura: The pleural spaces are clear. Lungs and Airways: The lungs and airways are normal with no focal abnormality demonstrated. ABDOMEN/PELVIS: Hepatobiliary: No focal hepatic lesions. No biliary ductal dilatation. Spleen: No splenomegaly. Pancreas: No focal masses or ductal dilatation. Adrenals: No adrenal nodules. Kidneys/Ureters: No hydronephrosis, stones, or solid mass lesions. Pelvic Organs/Bladder: Unremarkable. Peritoneum/Retroperitoneum: A large hypodense mildly enhancing retroperitoneal mass lesion encasing aorta and large vessels including celiac, SMA, bilateral renal and lumbar arteries and extending into the left pelvic region measuring 10.9 x 7.3 x 12.7 cm craniocaudally. Also there is a large hypodense mildly enhancing periportal mass lesion encasing the portal vein, common hepatic artery and splenic artery measuring 7.2 x 9.0 cm series 9 image 173 . Lymph nodes: Multiple large pelvic lymph node largest lymph node on the left side measure 3.3 x 5.2 cm in size series 9 image 270. Also noted at multiple groin subcentimeter lymph node. Vessels: Unremarkable. Patent main portal vein measuring up to 1.5 cm. GastrointestinaI Tract: Without oral contrast gastrointestinal tract is poorly evaluated. BONES AND SOFT TISSUE: Surgical screw and plate fixation L4-L5 vertebra with severe endplate and vertebral body sclerosis. Grade 1 spondylolisthesis L3-L4. IMPRESSION: 1. CTA chest and abdomen shows patent ascending, arch, descending thoracic , abdominal aorta and bilateral iliac arteries. 2. Both kidney supplied by 2 renal arteries with moderate ostial atherosclerotic calcification and stenosis. 3. 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 Findings were relayed to Vinny Rushing through primordial message immediately after dictation. BLOOD BANK Antibody Negative 05/29 [facility] RESULTS [facility] (05/29/16 6:13 AM) [place] BLOOD BANK ABO/Rh O NEG 05/29 [facility] RESULTS /2015 [facility] CHEM PANEL Magnesium 1.8 mg/dL 1.8 - 2.4 05/29 [facility] Lvl /2015 [facility] CHEM PANEL eGFR 26 05/29 Result Comment: The eGFR is calculated using the CKD-EPI formula. In most young, healthy individuals the eGFR will be >90 mL/ min/1.73m2. The eGFR declines with age. An eGFR of 60-89 may be normal in [facility] mL/min/1.7 /2015 some populations, particularly the elderly, for whom the CKD-EPI formula has not been extensively validated. Use of the eGFR is not recommended in the following populations: [address] Individuals with unstable creatinine concentrations, including patients and those with serious co-morbid conditions. Patients with extremes in muscle mass or diet. The data above are obtained from the National Kidney Disease Education Program (NKDEP) which additionally recommends that when the eGFR is used in patients with extremes of body mass index for purposes of drug dosing, the eGFR should be multiplied by the estimated BMI. CHEM PANEL Calcium Lvl 9.3 mg/dL 8.5 - 10.5 05/29 [facility] CHEM PANEL Creatinine 1.83 mg/dL 0.50 - 05/29 [facility] Lvl 1.40 /2015 [facility] CHEM PANEL Glucose Lvl 121 mg/dL 70 - 99 / [facility] CHEM PANEL Chloride Lvl 104 meq/L 95 - 109 05/29 [facility] CHEM PANEL Potassium 4.2 meq/L 3.5 - 5.1 05/29 [facility] Lvl /2015 [facility] CHEM PANEL CO2 26 meq/L 24 - 32 / [facility] CHEM PANEL Sodium Lvl 139 meq/L 135 - 145 / [facility] CHEM PANEL BUN 24 mg/dL 7 - 22 05/29 [facility] CHEM PANEL AGAP 13.2 meq/L 10.0 - 05/29 [place] 20.0 [facility] HEMATOLOGY Hgb 12.1 g/dL 12.0 - 05/29 [place] 16.0 [facility] HEMATOLOGY RBC 4.30 M/CMM 4.20 - 05/29 5.40 /2015 [facility] HEMATOLOGY Hct 36.9 % 36.0 - 05/29 [place] 48.0 /2015 [facility] HEMATOLOGY WBC 16.5 K/CMM 3.7 - 10.4 05/29 [facility] HEMATOLOGY RDW 15.7 % 11.5 - 08 14.5 /2015 [facility] HEMATOLOGY MCHC 32.8 g/dL 32.0 - 05/29 [place] 36.0 /2015 [facility] HEMATOLOGY MPV 8.8 fL 7.4 - 10.4 05/29 [facility] HEMATOLOGY Platelet 96 K/CMM 133 - 450 08 [facility] HEMATOLOGY MCH 28.2 pg 27.0 - 08 [place] 31.0 [facility] HEMATOLOGY MCV 85.9 fL 80.0 - 05/29 [place] 98.0 /2015 [facility] HEMATOLOGY PTT 30.9 s 22.9 - 05/29 [place] 35.8 /2015 [facility] HEMATOLOGY PT 14.4 s 12.0 - 05/29 [place] 14.7 /2015 [facility] HEMATOLOGY INR 1.09 0.85 - 05/29 [place] 1.17 /2015 [facility] HEMATOLOGY Segs-Bands # 3.0 K/CMM 1.5 - 8.1 05/29 [facility] HEMATOLOGY Basophils 0.8 % 0.0 - 1.0 05/29 [facility] HEMATOLOGY Eosinophils 1.2 % 0.0 - 4.0 05/29 [facility] HEMATOLOGY Lymphocytes 12.7 K/CMM 1.0 - 5.5 05/29 [facility] HEMATOLOGY Basophils # 0.1 K/CMM 0.0 - 0.2 05/29 [facility] HEMATOLOGY Eosinophils 0.2 K/CMM 0.0 - 0.5 05/29 [facility] HEMATOLOGY Monocytes # 0.5 K/CMM 0.0 - 0.8 05/29 [facility] HEMATOLOGY Segs 18.3 % 45.0 - 05/29 [place] 75.0 /2016 [facility] HEMATOLOGY Monocytes 2.9 % 2.0 - 12.0 / [facility] HEMATOLOGY Lymphocytes 76.8 % 20.0 - 08 [place] 40.0 /2016 [facility] Spine Spine lumbar EXAM: XR LUMBAR SPINE 2 VIEWS 04/20 - OPID lumbar 2 or 2 or 3 views /2013 - [place] 3 views DATE: 2014-04-20 0953 hours Read by: Brianna Souza MD Dictated Date/time: 04/20/14 11:50 Electronically Signed by: Brianna Souza MD 04/20/14 11:53 FINAL REPORT INDICATION: 729.2 Neuralgia, Neuritis, and Radiculitis,724.02 Spinal Stenosis of Lumbar Region without Neurogenic Claudication, 722.10 Displacement of Lumbar Intervertebral Disc without Myelopathy, 724.2 Lumbago COMPARISON: August 26, 2012 TECHNIQUE: AP and lateral radiographs of the lumbar spine FINDINGS: 5 lumbar-type, nonrib-bearing vertebral bodies are identified. Prior laminectomy is again identified of 2-L5 with posterior stabilization rods and transpedicular screws at L4-L5. There is matu re surrounding bone graft. There is no perihardware lucency or evidence of failure. Severe disc height loss is again identified at L2-L3 with moderate disc height loss at L4-L5 slightly progressed in e interim, with new endplate sclerosis and vacuum phenomenon. There is grade 1 anterolisthesis of L4 and L5. Multilevel facet osteoarthrosis is present. Vascular calcifications are present at the aortoiliac trunk. IMPRESSION: 1. Unchanged, satisfactory alignment following posterior stabilization at L4-L5. 2. Progressive degenerative disc disease at L3-L4 with new endplate sclerosis and vacuum phenomenon. Grade 1 anterolisthesis at this level. 3. Slight interval progression of severe degenerative disc disease and L2- L3. CHEMISTRY Magnesium 1.6 mg/dL 1.8 - 2.4 01/20 LOW [facility] Lvl [facility] CHEMISTRY eGFR 44 01/20 NA 1Result Comment: The eGFR is calculated using the CKD-EPI formula. In most young, healthy individuals the eGFR will be > 90 mL/min/1.73m2. The eGFR declines with age. An eGFR of 60-89 may be normal in [facility] mL/min/1. /2012 some populations, particularly the elderly, for whom the CKD-EPI formula has not been extensively validated. Use of the eGFR is not recommended in the following populations: [place] [id number] Center Individuals with unstable creatinine concentrations, including patients and those with serious co-morbid conditions. Patients with extremes in muscle mass or diet. The data above are obtained from the National Kidney Disease Education Program (NKDEP) which additionally recommends that when the eGFR is used in patients with extremes of body mass index for purposes of drug dosing, the eGFR should be multiplied by the estimated BMI. CHEMISTRY AGAP 8.5 meq/L 10.0 - 01/20 LOW [place] 20.0 [facility] CHEMISTRY Calcium Lvl 9.4 mg/dL 8.5 - 10.5 01/20 Normal [facility] CHEMISTRY Chloride Lvl 106 meq/L 95 - 109 01/20 Normal [facility] CHEMISTRY CO2 28 meq/L 24 - 32 01/20 Normal [facility] CHEMISTRY Sodium Lvl 138 meq/L 135 - 145 01/20 Normal [facility] CHEMISTRY Potassium 4.5 meq/L 3.5 - 5.1 01/20 Normal [facility] CHEMISTRY Glucose Lvl 182 mg/dL 70 - 99 01/20 [place] 3Interpretive Data: Adult reference range values reflect the clinical guidelines of the [place] [employer]. [facility] CHEMISTRY BUN 18 mg/dL 7 - 01/20 Normal [facility] CHEMISTRY Creatinine 1.2 mg/dL 0.5 - 1.4 01/20 Normal [facility] l [facility] HEMATOLOGY MCH 26.0 pg 27.0 - 01/[address] [facility] 31.0 [facility] HEMATOLOGY MCHC 31.9 g/dL 32.0 - 01/[address] [facility] 36.0 [facility] HEMATOLOGY RDW 16.8 % 11.5 - 01/20 HI [facility] 14.5 [facility] HEMATOLOGY Hgb 12.5 g/dL 12.0 - 01/20 Normal [facility] 16.0 [facility] HEMATOLOGY Hct 39.2 % 36.0 - 01/20 Normal [facility] 48.0 [facility] HEMATOLOGY MCV 81.6 fL 81.0 - 01/20 Normal [facility] 99.0 [facility] HEMATOLOGY WBC 7.0 K/CMM 3.7 - 10.4 01/20 Normal [facility] HEMATOLOGY RBC 4.81 M/CMM 4.20 - 01/20 Normal [place] 5.40 /2012 [facility] HEMATOLOGY Platelet 91 K/CMM 133 - 450 01/20 LOW [facility] HEMATOLOGY MPV 9.3 fL 7.4 - 10.4 01/20 Normal [facility] HEMATOLOGY Basophils 2.0 % 0.0 - 1.0 01/20 HI [facility] HEMATOLOGY Lymphocytes 15.2 % 20.0 - 01/20 LOW [place] 40.0 [facility] HEMATOLOGY Segs 68.7 % 45.0 - 01/20 Normal [place] 75.0 [facility] HEMATOLOGY Eosinophils 3.2 % 0.0 - 4.0 01/20 Normal /2012 [facility] HEMATOLOGY Monocytes 10.9 % 2.0 - 12.0 01/20 Normal [facility] HEMATOLOGY Eosinophils 0.2 K/CMM 0.0 - 0.5 01/20 Normal [facility] # /2012 [facility] HEMATOLOGY Monocytes # 0.8 K/CMM 0.0 - 0.8 01/20 Normal [facility] HEMATOLOGY Basophils # 0.1 K/CMM 0.0 - 0.2 01/20 Normal [facility] HEMATOLOGY Lymphocytes 1.1 K/CMM 1.0 - 5.5 01/20 Normal [facility] # /2012 [facility] HEMATOLOGY Segs-Bands # 4.8 K/CMM 1.5 - 8.1 01/20 Normal [facility] BLOOD BANK Antibody Negative 01/19 Normal [facility] RESULTS Scr [facility] (01/19/2013 06:26:48) [place] BLOOD BANK ABO/Rh O NEG 01/19 Unknown [facility] RESULTS [facility] CHEMISTRY Magnesium 1.4 mg/dL 1.8 - 2.4 01/19 LOW [facility] Lvl [facility] CHEMISTRY AGAP 10.1 meq/L 10.0 - 01/19 Normal [facility] 20.0 [facility] CHEMISTRY eGFR 44 01/19 NA 2Result Comment: The eGFR is calculated using the CKD-EPI formula. In most young, healthy individuals the eGFR will be > 90 mL/min/1.73m2. The eGFR declines with age. An eGFR of 60-89 may be normal in [facility] mL/min/1. some populations, particularly the elderly, for whom the CKD-EPI formula has not been extensively validated. Use of the eGFR is not recommended in the following populations: [address] Individuals with unstable creatinine concentrations, including patients and those with serious co-morbid conditions. Patients with extremes in muscle mass or diet. The data above are obtained from the National Kidney Disease Education Program (NKDEP) which additionally recommends that when the eGFR is used in patients with extremes of body mass index for purposes of drug dosing, the eGFR should be multiplied by the estimated BMI. CHEMISTRY CO2 29 meq/L 24 - 32 01/19 Normal [facility] CHEMISTRY Calcium Lvl 9.5 mg/dL 8.5 - 10.5 01/19 Normal [facility] CHEMISTRY BUN 22 mg/dL 7 - 01/19 Normal [facility] CHEMISTRY Sodium Lvl 141 meq/L 135 - 145 01/19 Normal [facility] CHEMISTRY Potassium 4.1 meq/L 3.5 - 5.1 01/[address] [facility] CHEMISTRY Creatinine 1.2 mg/dL 0.5 - 1.4 01/[address] [facility] CHEMISTRY Glucose Lvl 78 mg/dL 70 - 99 01/19 Normal 4Interpretive Data: Adult reference range values reflect the clinical guidelines of the [place] [employer]. [facility] CHEMISTRY Chloride Lvl 106 meq/L 95 - 109 01/19 Normal [facility] HEMATOLOGY PT 14.7 s 12.0 - 01/19 Normal [facility] 14.7 [facility] HEMATOLOGY PTT 32.3 s 22.9 - 01/19 Normal 6Interpretive [facility] 35.8 Data: Heparin [facility] Range: 57 - 92 [facility] HEMATOLOGY INR 1.13 0.85 - 01/19 Normal 5Interpretive Data: RECOMMENDED RANGES FOR PROTIME INR: [facility] 1.17 2.0-3.0 for most medical and surgical thromboembolic states. Medical 2.5-3.5 for artificial heart valves and recurrent embolism. Center INR SHOULD BE USED ONLY FOR PATIENTS ON STABLE ANTICOAGULANT THERAPY. HEMATOLOGY RBC 4.97 M/CMM 4.20 - 01/19 Normal [facility] 5.40 [facility] HEMATOLOGY Hgb 13.1 g/dL 12.0 - 01/19 Normal [facility] 16.0 [facility] HEMATOLOGY Platelet 89 K/CMM 133 - 450 01/19 LOW [facility] HEMATOLOGY MPV 8.8 fL 7.4 - 10.4 01/19 Normal [facility] HEMATOLOGY MCV 81.8 fL 81.0 - 01/19 Normal [place] 99.0 [facility] HEMATOLOGY Hct 40.6 % 36.0 - 01/19 Normal [place] 48.0 [facility] HEMATOLOGY RDW 17.2 % 11.5 - 01/19 HI [facility] 14. [facility] HEMATOLOGY MCH 26.3 pg 27.0 - 01/19 LOW [place] 31.0 [facility] HEMATOLOGY MCHC 32.2 g/dL 32.0 - 01/19 Normal [place] 36.0 [facility] HEMATOLOGY WBC 5.7 K/CMM 3.7 - 10.4 01/19 Normal [facility] HEMATOLOGY Basophils 0.6 % 0.0 - 1.0 01/19 Normal [facility] HEMATOLOGY Monocytes 11.5 % 2.0 - 12.0 01/19 Normal [facility] HEMATOLOGY Eosinophils 3.1 % 0.0 - 4.0 01/19 Normal [facility] HEMATOLOGY Monocytes # 0.7 K/CMM 0.0 - 0.8 01/19 Normal [facility] HEMATOLOGY Lymphocytes 1.9 K/CMM 1.0 - 5.5 01/19 Normal [facility] HEMATOLOGY Segs-Bands # 2.9 K/CMM 1.5 - 8.1 01/19 Normal [facility] HEMATOLOGY Eosinophils 0.2 K/CMM 0.0 - 0.5 01/19 Normal [facility] HEMATOLOGY Lymphocytes 33.7 % 20.0 - 01/19 Normal [place] 40.0 [facility] HEMATOLOGY Segs 51.1 % 45.0 - 01/19 [facility] 75.0 [facility] HEMATOLOGY PT 19.4 s 12.0 - 07/31 [facility] 14. [facility] HEMATOLOGY INR 1.62 0.85 - 07/31 [place] 7Interpretive Data: RECOMMENDED RANGES FOR PROTIME INR: [facility] 1. 2.0-3.0 for most medical and surgical thromboembolic states. Medical 2.5-3.5 for artificial heart valves and recurrent embolism. Center INR SHOULD BE USED ONLY FOR PATIENTS ON STABLE ANTICOAGULANT THERAPY. BEDSIDE Gluc POC 148 mg/dL 70 - 99 07/31 [place] 1Interpretive [facility] GLUCOSE Lifscn Data: Medical TESTING Center Upper Reportable Limit: 200 mg/dL. BEDSIDE Comment1 Notify 07/31 NA [facility] GLUCOSE RN/ Medical TESTING Center BEDSIDE Gluc POC 192 mg/dL 70 - 07/31 [place] 2Interpretive [facility] GLUCOSE Lif Data: [facility]ING Center Upper Reportable Limit: 200 mg/dL. BEDSIDE Comment1 Notify 07/31 NA [place] GLUCOSE RN/ [facility] TESTING Center BEDSIDE Gluc POC 106 mg/dL 70 - 99 07/30 [place] 3Interpretive [facility] GLUCOSE Lif Data: Medical TESTING Center Upper Reportable Limit: 200 mg/dL. HEMATOLOGY PB Smear Peripheral 07/30 NA [facility] blood Medical smear Center shows hypochromi c anemia with anisopoiki locytsosis , a few elliptocyt es, no increase in schistocyt es, slight polychroma nohemy, mild thrombocyt openia. Impression : (1) no evidence of microangio pathic hemolysis, (2) RBC morphology is sugestive of iron deficiency anemia vs. anemia of chronic disease. CPT: 38610 HEMATOLOGY Platelet 94 K/CMM 133 - 450 07/30 LOW [facility] HEMATOLOGY RDW 16.1 % 11.5 - 10 [facility] 14.5 /2011 [facility] HEMATOLOGY MPV 9.5 fL 7.4 - 10.4 07/30 [facility] HEMATOLOGY RBC 3.68 M/CMM 4.20 - [address] [facility] 5.40 /2011 [facility] HEMATOLOGY WBC 5.4 K/CMM 3.7 - 10.4 07/30 Normal [facility] HEMATOLOGY MCV 89.6 fL 81.0 - 10 [facility] 99.0 /2011 [facility] HEMATOLOGY Hgb 11.0 g/dL 12.0 - [address] [facility] 16.0 [facility] HEMATOLOGY Hct 32.9 % 36.0 - [address] [facility] 48.0 [facility] HEMATOLOGY MCHC 33.5 g/dL 32.0 - 07/30 [facility] 36.0 [facility] HEMATOLOGY MCH 30.0 pg 27.0 - 10 Normal [place] 31.0 [facility] HEMATOLOGY Lymphocytes 19.2 % 20.0 - 10 LOW [facility] [place] 40.0 [facility] HEMATOLOGY Segs 65.5 % 45.0 - 10 Normal [facility] 75.0 /2011 [facility] HEMATOLOGY Basophils 0.7 % 0.0 - 1.0 07/30 Normal [facility] HEMATOLOGY Eosinophils 4.1 % 0.0 - 4.0 07/30 HI [facility] HEMATOLOGY Monocytes 10.5 % 2.0 - 12.0 07/30 Normal [facility] HEMATOLOGY Monocytes # 0.6 K/CMM 0.0 - 0.8 07/30 Normal [facility] HEMATOLOGY Lymphocytes 1.0 K/CMM 1.0 - 5.5 07/30 Normal [facility] HEMATOLOGY Segs-Bands # 3.5 K/CMM 1.5 - 8.1 07/30 Normal [facility] HEMATOLOGY Basophils # 0.0 K/CMM 0.0 - 0.2 07/30 Normal [facility] HEMATOLOGY Eosinophils 0.2 K/CMM 0.0 - 0.5 07/30 Normal [facility] HEMATOLOGY PT 18.3 s 12.0 - 07/30 [facility] 14.7 [facility] HEMATOLOGY INR 1.50 0.85 - 07/30 [place] 8Interpretive Data: RECOMMENDED RANGES FOR PROTIME INR: [facility] 1. /2011 2.0-3.0 for most medical and surgical thromboembolic states. Medical 2.5-3.5 for artificial heart valves and recurrent embolism. Center INR SHOULD BE USED ONLY FOR PATIENTS ON STABLE ANTICOAGULANT THERAPY. BEDSIDE Comment1 Notify 07/30 NA [facility] GLUCOSE RN/MD /2011 [facility] HEMATOLOGY Monocytes # 0.5 K/CMM 0.0 - 0.8 07/30 Normal [facility] HEMATOLOGY Lymphocytes 1.0 K/CMM 1.0 - 5.5 07/30 [facility] HEMATOLOGY Segs-Bands # 2.4 K/CMM 1.5 - 8.1 07/30 [facility] HEMATOLOGY Eosinophils 0.1 K/CMM 0.0 - 0.5 07/30 Normal [facility] HEMATOLOGY Basophils # 0.0 K/CMM 0.0 - 0.2 07/30 [facility] HEMATOLOGY Lymphocytes 23.7 % 20.0 - 10 Normal [place] 40.0 /2012 [facility] HEMATOLOGY Monocytes 11.9 % 2.0 - 12.0 10 Normal [facility] HEMATOLOGY Eosinophils 3.2 % 0.0 - 4.0 07/30 Normal [facility] HEMATOLOGY Segs 60.6 % 45.0 - 10 Normal [place] 75.0 /2011 [facility] HEMATOLOGY Basophils 0.6 % 0.0 - 1.0 07/30 Normal [facility] HEMATOLOGY PTT 40.0 s 22.9 - 10 HI 10Interpretiv [place] 35.8 /2011 e Data: [facility] Therapeutic Range: 57 - 92 Second[facility] HEMATOLOGY PT 19.4 s 12.0 - 10 [facility] [place] 14.7 [facility] HEMATOLOGY INR 1.62 0.85 - 07/30 [place] 9Interpretive Data: RECOMMENDED RANGES FOR PROTIME INR: [facility] 1.17 2.0-3.0 for most medical and surgical thromboembolic states. Medical 2.5-3.5 for artificial heart valves and recurrent embolism. Center INR SHOULD BE USED ONLY FOR PATIENTS ON STABLE ANTICOAGULANT THERAPY. HEMATOLOGY MCV 89.0 fL 81.0 - 07/30 Normal [facility] 99.0 /2011 [facility] HEMATOLOGY RDW 15.4 % 11.5 - 07/30 [facility] 14.5 /2011 [facility] HEMATOLOGY MCH 30.0 pg 27.0 - 10 [facility] 31.0 /2011 [facility] HEMATOLOGY MCHC 33.8 g/dL 32.0 - 10 Normal [facility] 36.0 [facility] HEMATOLOGY Platelet 81 K/CMM 133 - 450 07/30 LOW [facility] HEMATOLOGY MPV 9.2 fL 7.4 - 10.4 07/30 Normal [facility] HEMATOLOGY RBC 3.50 M/CMM 4.20 - [address] [facility] 5.40 /2011 [facility] HEMATOLOGY WBC 4.0 K/CMM 3.7 - 10.4 07/30 Normal [facility] HEMATOLOGY Hgb 10.5 g/dL 12.0 - 07/[address] [facility] 16.0 [facility] HEMATOLOGY Hct 31.1 % 36.0 - 10 LOW [facility] 48.0 [facility] IMMUNOLOGY Hep Bs Ag Negative Negative 07/30 NA Medical *NA* [facility] (07/29/2012 20:05:00) IMMUNOLOGY Hep A IgM Negative Negative 07/30 [facility] (07/29/2012 20:05:00) IMMUNOLOGY Hep B Core Negative Negative 07/30 NA [facility] (07/29/2012 20:05:00) IMMUNOLOGY Hep C Ab Negative Negative 07/30 [facility] (07/29/2012 20:05:00) CHEMISTRY AGAP 14.2 meq/L 10.0 - 07/29 Normal [facility] 20. [facility] CHEMISTRY Calcium Lvl 9.2 mg/dL 8.5 - 10.5 07/29 Normal [facility] CHEMISTRY CO2 26 meq/L 24 - 32 07/29 Normal [facility] CHEMISTRY Glucose Lvl 143 mg/dL 70 - 99 07/29 [place] 4Interpretive Data: Adult reference range values reflect the clinical guidelines of the [place] [employer]. Medical [place] CHEMISTRY Chloride Lvl 108 meq/L 95 - 109 07/29 Normal [facility] CHEMISTRY Potassium 4.2 meq/L 3.5 - 5.1 07/29 Normal [facility] CHEMISTRY Sodium Lvl 144 meq/L 135 - 145 07/29 Normal [facility] CHEMISTRY Creatinine 0.9 mg/dL 0.5 - 1.4 07/[address] [facility] CHEMISTRY BUN 17 mg/dL 7 - 22 07/29 Normal [facility] HEMATOLOGY Eosinophils 3.8 % 0.0 - 4.0 07/29 Normal [facility] HEMATOLOGY Monocytes 12.4 % 2.0 - 12.0 07/29 HI [facility] HEMATOLOGY Lymphocytes 28.6 % 20.0 - 07/29 Normal [facility] 40.0 [facility] HEMATOLOGY Segs 54.6 % 45.0 - 07/29 Normal [facility] 75.0 [facility] HEMATOLOGY Segs-Bands # 1.9 K/CMM 1.5 - 8.1 07/29 Normal [facility] HEMATOLOGY Basophils 0.6 % 0.0 - 1.0 07/29 Normal [facility] HEMATOLOGY Eosinophils 0.1 K/CMM 0.0 - 0.5 07/29 Normal [facility] HEMATOLOGY Monocytes # 0.4 K/CMM 0.0 - 0.8 07/29 Normal [facility] HEMATOLOGY Lymphocytes 1.0 K/CMM 1.0 - 5.5 07/29 Normal [facility] HEMATOLOGY Basophils # 0.0 K/CMM 0.0 - 0.2 07/29 Normal [facility] HEMATOLOGY RDW 15.3 % 11.5 - 07/29 HI [facility] 14.5 Medical Center HEMATOLOGY Platelet 76 K/CMM 133 - 450 07/29 [facility] HEMATOLOGY MPV 8.9 fL 7.4 - 10.4 07/29 Normal [facility] HEMATOLOGY MCH 30.3 pg 27.0 - 07/29 [facility] 31.0 [facility] [place] HEMATOLOGY WBC 3.4 K/CMM 3.7 - 10.4 07/29 [facility] HEMATOLOGY RBC 3.45 M/CMM 4.20 - 07/[address] [facility] 5.40 /2011 Medical [place] HEMATOLOGY MCHC 34.0 g/dL 32.0 - 07/29 Normal [facility] 36.0 /2011 [facility] [place] HEMATOLOGY Hgb 10.4 g/dL 12.0 - [address] [facility] [facility] 16.0 [facility] HEMATOLOGY Hct 30.7 % 36.0 - [address] [facility] 48.0 /2011 [facility] HEMATOLOGY MCV 88.9 fL 81.0 - 07/29 [facility] 99.0 [facility] CHEMISTRY Total CK 75 unit/L 12 - 191 07/27 Normal [facility] CHEMISTRY AGAP 16.3 meq/L 10.0 - 07/27 Normal [facility] 20.0 [facility] CHEMISTRY CO2 26 meq/L 24 - 32 07/27 Normal [facility] CHEMISTRY Calcium Lvl 8.8 mg/dL 8.5 - 10.5 07/27 Normal [facility] CHEMISTRY Chloride Lvl 105 meq/L 95 - 109 07/27 Normal [facility] CHEMISTRY BUN 14 mg/dL 7 - 22 07/27 Normal [facility] CHEMISTRY Creatinine 0.8 mg/dL 0.5 - 1.4 07/27 Normal [facility] l [facility] CHEMISTRY Glucose Lvl 152 mg/dL 70 - 99 07/27 [place] 5Interpretive Data: Adult reference range values reflect the clinical guidelines of the [place] [employer]. [facility] CHEMISTRY Sodium Lvl 143 meq/L 135 - 145 07/27 Normal [facility] CHEMISTRY Potassium 4.3 meq/L 3.5 - 5.1 07/[address] [facility] CHEMISTRY CHD Risk 2.65 3.90 - 07/27 LOW [facility] 5.80 [facility] CHEMISTRY LDL 36 mg/dL 0 - 129 07/27 Normal [facility] CHEMISTRY Trig 123 mg/dL 0 - 200 07/27 Normal [facility] CHEMISTRY HDL 37 mg/dL >=35 07/27 Normal [facility] CHEMISTRY Chol 98 mg/dL 120 - 200 07/27 LOW [facility] HEMATOLOGY PTT 43.9 s 22.9 - 07/24 [place] 11Interpretiv [facility] 35.8 e Data: [facility] Therapeutic Range: 57 - 92 Seconds CHEMISTRY A/G Ratio 0.9 0.7 - 1.6 07/22 Normal [facility] CHEMISTRY Globulin 3.4 g/dL 2.0 - 4.0 07/22 Normal [facility] CHEMISTRY B/C Ratio 15 6 - 25 07/22 Normal [facility] CHEMISTRY AGAP 14.2 meq/L 10.0 - 07/22 Normal [facility] 20.0 Medical Center CHEMISTRY ALT 18 unit/L 0 - 65 07/22 Normal [facility] CHEMISTRY Alk Phos 82 unit/L 39 - 136 07/22 Normal [facility] CHEMISTRY Glucose Lvl 158 mg/dL 70 - 99 07/22 HI 6Interpretive Data: Adult reference range values reflect the clinical guidelines of the [place] [employer]. [facility] CHEMISTRY Albumin Lvl 2.9 g/dL 3.5 - 5.0 07/22 LOW [facility] CHEMISTRY Sodium Lvl 139 meq/L 135 - 145 07/22 Normal [facility] CHEMISTRY Potassium 4.2 meq/L 3.5 - 5.1 07/[address] [facility] CHEMISTRY BUN 15 mg/dL 7 - 22 07/22 Normal [facility] CHEMISTRY CO2 27 meq/L 24 - 32 07/22 Normal [facility] CHEMISTRY Calcium Lvl 9.1 mg/dL 8.5 - 10.5 07/22 Normal [facility] CHEMISTRY Creatinine 1.0 mg/dL 0.5 - 1.4 07/[address] [facility] CHEMISTRY AST 15 unit/L 0 - 37 07/22 Normal [facility] CHEMISTRY Total 6.3 g/dL 6.4 - 8.4 07/22 LOW [facility] Protein [facility] CHEMISTRY Chloride Lvl 102 meq/L 95 - 109 07/22 Normal [facility] CHEMISTRY Bili Total 0.5 mg/dL 0.2 - 1.3 07/22 Normal [facility] CHEMISTRY Magnesium 1.5 mg/dL 1.8 - 2.4 07/22 LOW [facility] CHEMISTRY Phosphorus 3.4 mg/dL 2.5 - 4.5 07/22 Normal [facility] HEMATOLOGY PTT 38.5 s 22.9 - 07/22 HI 12Interpretiv [facility] 35.8 /2011 e Data: [facility] Therapeutic Range: 57 - 92 Seconds BEDSIDE Comment1 Notify 07/22 [facility] GLUCOSE RN/MD /2011 Medical [facility]ING Center BEDSIDE Gluc POC 189 mg/dL 70 - 99 07/22 [place] 1Interpretive [facility] GLUCOSE Lifscn /2011 Data: Medical TESTING Center Upper Reportable Limit: 200 mg/dL. URINALYSIS UA WBC 78 /HPF 0 - 5 07/22 [facility] Medical Center URINALYSIS UA RBC 2 /HPF 0 - 2 07/22 Normal [facility] URINALYSIS UA Sq Epi Many /LPF Few 07/22 [facility] *ABN* Center (07/21/2012 20:17:00) URINALYSIS UA [place] Yeast Occasional /HPF None Seen 07/22 [facility] *ABN* Center (07/21/2012 20:17:00) URINALYSIS UA Bacteria Few /HPF None Seen 07/22 NA [facility] *NA* Center (07/21/2012 20:17:00) URINALYSIS UA Hyal Cast 3 /LPF 0 - 2 07/22 [facility] Medical Center URINALYSIS UA Leuk Est Large Negative 07/22 [facility] *ABN* Center (07/21/2012 20:17:00) URINALYSIS UA Nitrite Negative Negative 07/22 Normal Medical (07/21/2012 20:17:00) Center URINALYSIS UA 2.0 mg/dL 0.1 - 1.0 07/22 HI [facility] URINALYSIS UA Blood Negative Negative 07/22 Normal Medical (07/21/2012 20:17:00) Center URINALYSIS UA Bili Negative Negative 07/22 NA Medical *NA* Center (07/21/2012 20:17:00) URINALYSIS UA pH 6.5 5.0 - 8.0 07/22 Normal [facility] URINALYSIS UA Turbidity Slight Clear 07/22 ABN Medical *ABN* Center (07/21/2012 20:17:00) URINALYSIS UA Glucose Negative mg/dL Negative 07/22 [facility] Medical *NA* Center (07/21/2012 20:17:00) URINALYSIS UA Ketones Negative mg/dL Negative 07/22 NA Medical *NA* Center (07/21/2012 20:17:00) URINALYSIS UA Protein Negative mg/dL Negative 07/22 Normal [facility] (07/21/2012 20:17:00) Center URINALYSIS UA Color Yellow Yellow 07/22 [facility] Medical *NA* Center (07/21/2012 20:17:00) URINALYSIS UA Spec Grav 1.011 <=1.030 07/22 Normal Medical Center Microbiolog Culture: 07/22 [facility] y Urine Medical Center BEDSIDE Gluc POC 158 mg/dL 70 - 99 07/21 [place] 2Interpretive [facility] GLUCOSE Lifscn Data: Medical TESTING Center Upper Reportable Limit: 200 mg/dL. BEDSIDE Gluc POC 212 mg/dL 70 - 99 07/21 [place] 3Interpretive [facility] GLUCOSE Lifscn Data: Medical TESTING Center Upper Reportable Limit: 200 mg/dL. BEDSIDE Comment1 Notify 07/21 [facility] GLUCOSE RN/MD Medical TESTING Center CHEMISTRY Ca Norm mgdL 4.80 mg/dL 4.65 - 07/21 Normal [facility] 5. Medical Center CHEMISTRY Ca Ion mgdL 4.60 mg/dL 4.65 - 07/21 LOW [place] 5.20 Medical Center CHEMISTRY Ca Norm 1.20 1.16 - 07/21 Normal [facility] mMol/L 1.30 Medical Center CHEMISTRY Ca Ion 1.15 1.16 - 07/21 LOW [place] mMol/L 1.30 Medical Center CHEMISTRY CO2 23 meq/L 24 - 32 07/21 [facility] Medical Center CHEMISTRY Calcium Lvl 9.6 mg/dL 8.5 - 10.5 07/21 Normal Medical Center CHEMISTRY BUN 13 mg/dL 7 - 07/21 Normal [facility] CHEMISTRY Sodium Lvl 141 meq/L 135 - 145 07/21 [facility] Medical Center CHEMISTRY Glucose Lvl 156 mg/dL 70 - 99 07/21 HI 4Interpretive Data: Adult reference range values reflect the clinical guidelines of the [place] [employer]. Medical Center CHEMISTRY Chloride Lvl 105 meq/L 95 - 109 07/21 Normal [facility] CHEMISTRY Potassium 4.0 meq/L 3.5 - 5.1 07/21 Normal [facility] CHEMISTRY Creatinine 0.6 mg/dL 0.5 - 1.4 07/21 [facility] CHEMISTRY AGAP 17.0 meq/L 10.0 - 07/21 [facility] 20.0 [facility] CHEMISTRY Phosphorus 3.3 mg/dL 2.5 - 4.5 07/21 [facility] CHEMISTRY Magnesium 1.4 mg/dL 1.8 - 2.4 07/[address] [facility] HEMATOLOGY Monocytes # 0.5 K/CMM 0.0 - 0.8 07/21 Normal [facility] HEMATOLOGY Eosinophils 0.2 K/CMM 0.0 - 0.5 07/21 Normal [facility] # Medical Center HEMATOLOGY Basophils # 0.0 K/CMM 0.0 - 0.2 07/21 [facility] HEMATOLOGY Monocytes 8.8 % 2.0 - 12.0 07/21 Normal [facility] HEMATOLOGY Eosinophils 2.5 % 0.0 - 4.0 07/21 [facility] HEMATOLOGY Basophils 0.6 % 0.0 - 1.0 07/21 [facility] /2011 [facility] HEMATOLOGY Segs-Bands # 4.3 K/CMM 1.5 - 8.1 07/21 Normal [facility] HEMATOLOGY Lymphocytes 1.0 K/CMM 1.0 - 5.5 07/21 Normal [place] # /2011 [facility] HEMATOLOGY Segs 71.7 % 45.0 - 07/21 Normal [facility] 75.0 /2011 [facility] HEMATOLOGY Lymphocytes 16.4 % 20.0 - 07/[address] [facility] 40.0 [facility] HEMATOLOGY RBC 3.59 M/CMM 4.20 - 07/[address] [facility] 5.40 /2011 [facility] HEMATOLOGY WBC 6.1 K/CMM 3.7 - 10.4 07/21 [facility] HEMATOLOGY RDW 14.5 % 11.5 - 07/21 [facility] 14.5 [facility] HEMATOLOGY Platelet 137 K/CMM 133 - 450 07/21 Normal [facility] HEMATOLOGY MPV 8.4 fL 7.4 - 10.4 07/21 Normal [facility] HEMATOLOGY Hgb 10.7 g/dL 12.0 - 07/[address] [facility] 16.0 [facility] HEMATOLOGY Hct 32.0 % 36.0 - 07/[address] [facility] 48.0 [facility] HEMATOLOGY MCV 89.1 fL 81.0 - 07/21 [facility] 99.0 [facility] HEMATOLOGY MCH 29.9 pg 27.0 - 07/21 [facility] 31.0 [facility] HEMATOLOGY MCHC 33.5 g/dL 32.0 - 07/21 [facility] 36.0 [facility] HEMATOLOGY INR 1.06 0.85 - 07/21 Normal 13Interpretive Data: RECOMMENDED RANGES FOR PROTIME INR: [facility] 1. 2.0-3.0 for most medical and surgical thromboembolic states. Medical 2.5-3.5 for artificial heart valves and recurrent embolism. Center INR SHOULD BE USED ONLY FOR PATIENTS ON STABLE ANTICOAGULANT THERAPY. HEMATOLOGY PT 14.0 s 12.0 - 07/21 Normal [facility] 14.7 [facility] BEDSIDE Comment1 Notify 07/21 NA [facility] GLUCOSE RN/MD Medical TESTING Center CHEMISTRY Magnesium 1.7 mg/dL 1.8 - 2.4 07/[address] [facility] Lv Medical Center CHEMISTRY Phosphorus 3.6 mg/dL 2.5 - 4.5 07/20 Normal [facility] CHEMISTRY Ca Norm mgdL 5.32 mg/dL 4.65 - 07/20 HI [place] 5. Medical Center CHEMISTRY Ca Ion mgdL 5.08 mg/dL 4.65 - 07/20 Normal [facility] 5. Medical Center CHEMISTRY Ca Ion 1.27 1.16 - 07/20 Normal [place] mMol/L 1. Medical Center CHEMISTRY Ca Norm 1.33 1.16 - 07/20 HI [place] mMol/L 1.30 Medical Center CHEMISTRY AGAP 14.1 meq/L 10.0 - 07/20 Normal [facility] 20.0 Medical Center CHEMISTRY Glucose Lvl 147 mg/dL 70 - 99 07/20 [place] 5Interpretive Data: Adult reference range values reflect the clinical guidelines of the [place] [employer]. Medical Center CHEMISTRY BUN 13 mg/dL 7 - 22 07/20 Normal [facility] CHEMISTRY Potassium 4.1 meq/L 3.5 - 5.1 07/20 Normal [facility] Center CHEMISTRY Creatinine 0.9 mg/dL 0.5 - 1.4 07/[address] [facility] CHEMISTRY Sodium Lvl 138 meq/L 135 - 145 07/20 Normal [facility] CHEMISTRY Calcium Lvl 9.3 mg/dL 8.5 - 10.5 07/20 Normal [facility] CHEMISTRY CO2 27 meq/L 24 - 32 07/20 Normal [facility] CHEMISTRY Chloride Lvl 101 meq/L 95 - 109 07/20 Normal [facility] HEMATOLOGY Lymphocytes 14.3 % 20.0 - 07/20 LOW [facility] 40.0 [facility] HEMATOLOGY Segs 74.5 % 45.0 - 07/20 Normal [facility] 75.0 Medical Center HEMATOLOGY Basophils 0.7 % 0.0 - 1.0 07/20 Normal [facility] HEMATOLOGY Monocytes 7.3 % 2.0 - 12.0 07/20 Normal [facility] HEMATOLOGY Eosinophils 3.2 % 0.0 - 4.0 07/20 Normal [facility] HEMATOLOGY Basophils # 0.1 K/CMM 0.0 - 0.2 09/24 Normal [facility] Center HEMATOLOGY Monocytes # 0.5 K/CMM 0.0 - 0.8 07/20 Normal /2011 [facility] HEMATOLOGY Eosinophils 0.2 K/CMM 0.0 - 0.5 07/20 Normal [place] # /2011 [facility] HEMATOLOGY Segs-Bands # 5.2 K/CMM 1.5 - 8.1 07/20 Normal /2011 [facility] HEMATOLOGY Lymphocytes 1.0 K/CMM 1.0 - 5.5 07/20 Normal [place] # /2011 [facility] HEMATOLOGY PTT 34.5 s 22.9 - 07/20 Normal 16Interpretiv [place] 35.8 /2011 e Data: [facility] Therapeutic Range: 57 - 92 Seconds HEMATOLOGY PT 13.2 s 12.0 - 07/20 Normal [place] 14.7 [facility] HEMATOLOGY INR 0.98 0.85 - 07/20 Normal 14Interpretive Data: RECOMMENDED RANGES FOR PROTIME INR: [facility] . 2.0-3.0 for most medical and surgical thromboembolic states. Medical 2.5-3.5 for artificial heart valves and recurrent embolism. Center INR SHOULD BE USED ONLY FOR PATIENTS ON STABLE ANTICOAGULANT THERAPY. HEMATOLOGY MCHC 33.4 g/dL 32.0 - 07/20 Normal [facility] 36.0 [facility] HEMATOLOGY MPV 8.3 fL 7.4 - 10.4 07/20 Normal [facility] HEMATOLOGY RDW 14.8 % 11.5 - 07/20 [facility] 14.5 [facility] HEMATOLOGY Platelet 151 K/CMM 133 - 450 07/20 Normal [facility] HEMATOLOGY MCH 30.1 pg 27.0 - 07/20 Normal [facility] 31.0 [facility] HEMATOLOGY Hct 34.2 % 36.0 - 07/20 LOW [facility] 48.0 /2011 [facility] HEMATOLOGY RBC 3.79 M/CMM 4.20 - 07/20 LOW [facility] 5.40 /2011 [facility] HEMATOLOGY Hgb 11.4 g/dL 12.0 - 07/20 LOW [facility] 16.0 /2011 [facility] HEMATOLOGY WBC 6.9 K/CMM 3.7 - 10.4 07/20 Normal /2011 [facility] HEMATOLOGY MCV 90.1 fL 81.0 - 07/20 Normal [facility] 99.0 [facility] CHEMISTRY Ca Norm 1.35 1.16 - 07/19 HI [place] mMol/L 1.30 Medical Center CHEMISTRY Ca Ion mgdL 5.08 mg/dL 4.65 - 07/19 Normal [place] 5. Medical Center CHEMISTRY Ca Norm mgdL 5.40 mg/dL 4.65 - 07/19 HI [place] 5. Medical Center CHEMISTRY Ca Ion 1.27 1.16 - 07/19 Normal [place] mMol/L 1. Medical Center CHEMISTRY AGAP 14.1 meq/L 10.0 - 07/19 Normal [facility] 20.0 Medical Center CHEMISTRY Glucose Lvl 163 mg/dL 70 - 99 07/19 [place] 6Interpretive Data: Adult reference range values reflect the clinical guidelines of the [place] [employer]. Medical Center CHEMISTRY Calcium Lvl 9.3 mg/dL 8.5 - 10.5 07/19 Normal [facility] CHEMISTRY CO2 26 meq/L 24 - 32 07/19 Normal [facility] CHEMISTRY Chloride Lvl 102 meq/L 95 - 109 07/19 Normal [facility] CHEMISTRY Potassium 4.1 meq/L 3.5 - 5.1 07/[address] [facility] CHEMISTRY BUN 14 mg/dL 7 - 22 07/19 Normal [facility] CHEMISTRY Sodium Lvl 138 meq/L 135 - 145 07/19 Normal [facility] CHEMISTRY Creatinine 0.9 mg/dL 0.5 - 1.4 07/19 Normal [facility] Center CHEMISTRY Phosphorus 2.9 mg/dL 2.5 - 4.5 07/19 Normal [facility] CHEMISTRY Magnesium 1.5 mg/dL 1.8 - 2.4 07/[address] [facility] CHEMISTRY Troponin-T 0.859 0.000 - 07/19 CRIT 7Result [facility] ng/mL 0.100 Comment: Medical Critical Center Result(s) called to ya mckeon07/19/20 12 05:04:48 CDT at _ by tac. Read back OK. HEMATOLOGY Segs-Bands # 4.5 K/CMM 1.5 - 8.1 07/19 Normal [facility] HEMATOLOGY Eosinophils 0.2 K/CMM 0.0 - 0.5 07/19 Normal [facility] [place] # /2011 Medical Center HEMATOLOGY Basophils # 0.0 K/CMM 0.0 - 0.2 07/19 Normal [facility] HEMATOLOGY Lymphocytes 0.8 K/CMM 1.0 - 5.5 07/19 LOW [place] # /2011 Medical Center HEMATOLOGY Monocytes # 0.5 K/CMM 0.0 - 0.8 07/19 Normal [facility] HEMATOLOGY Eosinophils 3.6 % 0.0 - 4.0 07/19 Normal [facility] HEMATOLOGY Segs 75.1 % 45.0 - 09 HI [place] 75.0 /2011 Medical Center HEMATOLOGY Lymphocytes 12.8 % 20.0 - 07/19 LOW [place] 40.0 Medical Center HEMATOLOGY Basophils 0.7 % 0.0 - 1.0 07/19 Normal [facility] HEMATOLOGY Monocytes 7.8 % 2.0 - 12.0 07/19 Normal [facility] HEMATOLOGY MPV 8.4 fL 7.4 - 10.4 07/19 Normal [facility] [place] HEMATOLOGY RDW 14.7 % 11.5 - 07/19 HI [place] 14.5 Medical Center HEMATOLOGY Platelet 142 K/CMM 133 - 450 07/19 Normal [facility] HEMATOLOGY MCHC 34.0 g/dL 32.0 - 07/19 Normal [place] 36.0 [facility] [place] HEMATOLOGY WBC 6.0 K/CMM 3.7 - 10.4 07/19 Normal [facility] HEMATOLOGY RBC 3.51 M/CMM 4.20 - 07/19 [facility] [place] 5.40 Medical Center HEMATOLOGY MCV 88.0 fL 81.0 - 07/19 Normal [place] 99.0 Medical Center HEMATOLOGY Hgb 10.5 g/dL 12.0 - 07/19 LOW [place] 16.0 Medical Center HEMATOLOGY MCH 29.9 pg 27.0 - 07/19 Normal [place] 31.0 [facility] HEMATOLOGY Hct 30.9 % 36.0 - 07/19 LOW [place] 48.0 [facility] [place] HEMATOLOGY PTT 31.8 s 22.9 - 07/19 Normal 17Interpretiv [place] 35.8 /2011 e Data: [facility] Therapeutic Range: 57 - 92 Seconds HEMATOLOGY PT 13.3 s 12.0 - 07/19 Normal [place] 14.7 Medical Center HEMATOLOGY INR 0.99 0.85 - 07/19 Normal 15Interpretive Data: RECOMMENDED RANGES FOR PROTIME INR: [facility] 1.17 2.0-3.0 for most medical and surgical thromboembolic states. Medical 2.5-3.5 for artificial heart valves and recurrent embolism. Center INR SHOULD BE USED ONLY FOR PATIENTS ON STABLE ANTICOAGULANT THERAPY. CHEMISTRY POC A Hct 30.0 % 36.0 - 07/18 LOW [facility] 48.0 [facility] CHEMISTRY POC A O2 Sat 97.0 % 95.0 - 07/18 Normal [facility] 100.0 [facility] CHEMISTRY POC A Na 133 meq/L 135 - 145 07/18 LOW [facility] CHEMISTRY POC A HCO3 27 mMol/L 22 - 26 07/18 HI [facility] CHEMISTRY POC A BE 4 mMol/L -2-2 - 2 07/18 [facility] CHEMISTRY POC A %FIO2 21.0 % 18.0 - 07/18 Normal [facility] 100.0 [facility] CHEMISTRY POC A Ca Ion 1.21 1.16 - 07/18 Normal [facility] mMol/L 1.30 [facility] CHEMISTRY POC A K 4.0 meq/L 3.5 - 5.1 07/18 Normal [facility] CHEMISTRY POC A PCO2 36 mm[Hg] 35 - 45 07/18 Normal [facility] CHEMISTRY POC A Source ART 07/18 NA [facility] CHEMISTRY POC A Temp 37.0 Erlinda 07/18 NA [facility] CHEMISTRY POC A pH 7.49 7.35 - 07/18 [facility] 7.45 [facility] CHEMISTRY POC A PO2 81 mm[Hg] 80 - 100 07/18 Normal [facility] HEMATOLOGY PTT 34.9 s 22.9 - 07/18 Normal 18Interpretiv [facility] 35.8 /2011 e Data: [facility] Therapeutic Range: 57 - 92 Seconds BLOOD BANK Antibody Negative 07/17 Normal [facility] RESULTS [facility] (07/17/2012 07:00:00) Center BLOOD BANK ABO/Rh O NEG 07/17 Unknown [facility] RESULTS [facility] CHEMISTRY Troponin-I 3.07 ng/mL 0.00 - 07/17 CRIT 10Result [facility] 0.40 Comment: Medical Critical Center Result(s) called to hossein guillory at 07/17/2012 04:01:26 CDT bygavino. Read back OK. CHEMISTRY A/G Ratio 0.9 0.7 - 1.6 07/17 Normal [facility] CHEMISTRY Globulin 2.9 g/dL 2.0 - 4.0 07/17 Normal [facility] CHEMISTRY Bili 0.3 mg/dL 0.0 - 1.0 07/17 Normal [place] [facility] CHEMISTRY AST 29 unit/L 0 - 37 07/17 Normal [facility] CHEMISTRY Bili Direct 0.2 mg/dL 0.0 - 0.3 07/17 Normal [facility] CHEMISTRY Alk Phos 66 unit/L 39 - 136 07/17 Normal [facility] CHEMISTRY Total 5.6 g/dL 6.4 - 8.4 07/17 LOW [facility] CHEMISTRY Bili Total 0.5 mg/dL 0.2 - 1.3 07/17 Normal [facility] CHEMISTRY Albumin Lvl 2.7 g/dL 3.5 - 5.0 07/17 LOW [facility] CHEMISTRY ALT 21 unit/L 0 - 65 07/17 Normal [facility] CHEMISTRY Total CK 71 unit/L 12 - 191 07/17 Normal [facility] CHEMISTRY Troponin-T 1.430 0.000 - 07/17 CRIT 8Result [place] ng/mL 0.100 /2011 Comment: Medical Critical Center Result(s) called to hossein kahlil at 07/17/2012 04:02:28 CDT bygavino. Read back [place]ane CHEMISTRY Troponin-I 3.51 ng/mL 0.00 - 07/16 CRIT 11Result [place] 0.40 /2011 Comment: Medical Critical Center Result(s) called to ESTEBAN GUILLORY at 07/16/2012 19:33:32 CDT by Read back OK. CHEMISTRY Total CK 66 unit/L 12 - 191 07/16 Normal [facility] CHEMISTRY Troponin-T 1.180 0.000 - 07/16 CRIT 9Result [place] ng/mL 0.100 Comment: Medical critical [place] [id number] (busy line, 2x)07/16/2012 19:31:52 CDT, aamir guillory 07/16/2012 19:34:27 CDT by gissel. read back ok. CHEMISTRY Troponin-I 4.03 ng/mL 0.00 - 07/16 CRIT 12Result [place] 0.40 /2011 Comment: Medical Called to Center Stefani Hale at 07/16/2012 13:14:12 CDT called by dbf read back ok CHEMISTRY Total CK 70 unit/L 12 - 191 07/16 Normal Medical Center CHEMISTRY CK MB Index 2.4 0.0 - 2.5 07/16 Normal [facility] CHEMISTRY CK MB 2.3 ng/mL 0.5 - 3.6 07/16 Normal [facility] CHEMISTRY CK MB Index 2.8 0.0 - 2.5 07/15 HI [facility] CHEMISTRY CK MB 2.4 ng/mL 0.5 - 3.6 07/15 Normal [facility] CHEMISTRY Total CK 86 unit/L - 07/15 Normal [facility] CHEMISTRY Troponin-T 1.320 0.000 - 07/15 CRIT 4Result [place] ng/mL 0.100 /2011 Comment: Medical Critical Center Result(s) called to rachid ford at _2012 17:35:40 CDT by_mynor. Read back OK. CHEMISTRY Troponin-I 4.55 ng/mL 0.00 - 07/15 CRIT 5Result [place] 0.40 /2011 Comment: Medical Critical Center Result(s) called to rachid de guzman at 2012 17:53:14 CDT by chencho. Read back OK. BEDSIDE Comment1 Notify 07/15 NA [facility] GLUCOSE RN/MD /2011 Medical TESTING Center BEDSIDE Gluc POC 172 mg/dL 70 - 99 07/15 [place] 1Interpretive [facility] GLUCOSE Lifsc[facility] /2011 Data: Medical TESTING Center Upper Reportable Limit: 200 mg/dL. CHEMISTRY Phosphorus 2.8 mg/dL 2.5 - 4.5 07/15 Normal [facility] CHEMISTRY T4 Free 1.58 ng/dL 0.76 - 07/15 HI [place] 1.46 /2011 Medical Center CHEMISTRY TSH 1.120 0.360 - 07/15 Normal [place] uIU/mL 3.740 /2011 Medical Center CHEMISTRY Magnesium 1.7 mg/dL 1.8 - 2.4 07/15 LOW [facility] CHEMISTRY Hgb A1C 7.3 % 07/15 NA 6Interpretive Data: HbA1C% eAG(mg /dL) Interpretation 6.0 126 Very good control Medical 6.5 140 Very good control Center 7.0 154 Good Control 7.5 169 Good Control 8.0 183 Marginal Control, take action to lower 8.5 197 Marginal Control, take action to lower 9.0 212 Poor Control, take action to lower 9.5 226 Poor Control, take action to lower 10.0 240 Poor Control, take action to lower CHEMISTRY AST 32 unit/L 0 - 37 07/15 Normal [facility] CHEMISTRY Total 5.9 g/dL 6.4 - 8.4 07/15 LOW [facility] CHEMISTRY Bili Total 0.6 mg/dL 0.2 - 1.3 07/15 Normal [facility] CHEMISTRY Calcium Lvl 8.8 mg/dL 8.5 - 10.5 07/15 Normal [facility] CHEMISTRY CO2 30 meq/L 24 - 32 07/15 Normal [facility] CHEMISTRY Glucose Lvl 125 mg/dL 70 - 99 07/15 HI 3Interpretive Data: Adult reference range values reflect the clinical guidelines of the [place] [employer]. [facility] Center CHEMISTRY Alk Phos 71 unit/L 39 - 136 07/15 Normal [facility] CHEMISTRY Albumin Lvl 2.6 g/dL 3.5 - 5.0 07/15 LOW [facility] CHEMISTRY ALT 23 unit/L 0 - 65 07/15 Normal [facility] CHEMISTRY Chloride Lvl 99 meq/L 95 - 109 07/15 Normal [facility] CHEMISTRY Potassium 4.2 meq/L 3.5 - 5.1 07/15 Normal [facility] CHEMISTRY Sodium Lvl 139 meq/L 135 - 145 07/15 Normal [facility] CHEMISTRY Creatinine 0.8 mg/dL 0.5 - 1.4 07/15 Normal [facility] CHEMISTRY BUN 19 mg/dL 7 - 22 07/15 Normal [facility] CHEMISTRY A/G Ratio 0.8 0.7 - 1.6 07/15 Normal [facility] CHEMISTRY Globulin 3.3 g/dL 2.0 - 4.0 07/15 Normal [facility] CHEMISTRY B/C Ratio 24 6 - 25 07/15 Normal [facility] CHEMISTRY AGAP 14.2 meq/L 10.0 - 07/15 Normal [facility] 20.0 [facility] HEMATOLOGY Basophils # 0.0 K/CMM 0.0 - 0.2 07/15 Normal [facility] HEMATOLOGY Eosinophils 0.3 K/CMM 0.0 - 0.5 07/15 Normal [facility] # /2011 [facility] HEMATOLOGY Monocytes # 0.5 K/CMM 0.0 - 0.8 07/15 Normal [facility] HEMATOLOGY Lymphocytes 1.1 K/CMM 1.0 - 5.5 07/15 Normal [facility] HEMATOLOGY Eosinophils 4.7 % 0.0 - 4.0 07/15 HI [facility] HEMATOLOGY Monocytes 7.7 % 2.0 - 12.0 07/15 Normal [facility] HEMATOLOGY Segs-Bands # 4.0 K/CMM 1.5 - 8.1 07/15 Normal [facility] HEMATOLOGY Basophils 0.5 % 0.0 - 1.0 07/15 Normal [facility] HEMATOLOGY Lymphocytes 18.3 % 20.0 - 07/15 LOW [facility] 40.0 [facility] HEMATOLOGY Segs 68.8 % 45.0 - 07/15 Normal [facility] 75.0 [facility] HEMATOLOGY PT 13.3 s 12.0 - 07/15 Normal [facility] 14.7 /2011 [facility] HEMATOLOGY PTT 36.8 s 22.9 - 07/15 HI 8Interpretive [facility] 35.8 Data: Heparin [facility] Range: 57 - 92 Seconds HEMATOLOGY INR 0.99 0.85 - 07/15 Normal 7Interpretive Data: RECOMMENDED RANGES FOR PROTIME INR: [facility] . 2.0-3.0 for most medical and surgical thromboembolic states. Medical 2.5-3.5 for artificial heart valves and recurrent embolism. Center INR SHOULD BE USED ONLY FOR PATIENTS ON STABLE ANTICOAGULANT THERAPY. HEMATOLOGY MCV 90.0 fL 81.0 - 07/15 Normal [facility] 99.0 [facility] HEMATOLOGY MCH 30.0 pg 27.0 - 07/15 Normal [facility] 31.0 /2011 [facility] HEMATOLOGY Hct 32.3 % 36.0 - 07/15 LOW [facility] 48.0 /2011 [facility] HEMATOLOGY Hgb 10.8 g/dL 12.0 - 07/[address] [facility] 16.0 /2011 [facility] HEMATOLOGY MPV 8.4 fL 7.4 - 10.4 07/15 Normal [facility] HEMATOLOGY MCHC 33.3 g/dL 32.0 - 07/15 Normal [facility] 36.0 /2011 [facility] HEMATOLOGY Platelet 184 K/CMM 133 - 450 07/15 Normal [facility] HEMATOLOGY RDW 15.1 % 11.5 - 07/15 HI [facility] 14.5 /2011 [facility] HEMATOLOGY RBC 3.59 M/CMM 4.20 - 07/15 LOW [facility] 5.40 /2011 [facility] HEMATOLOGY WBC 5.8 K/CMM 3.7 - 10.4 07/15 Normal [facility] IMMUNOLOGY Prealbumin 12.1 mg/dL 18.0 - 07/15 LOW [facility] 45.0 /2011 [facility] URINALYSIS UA <=1.0 0.1 - 1.0 07/15 [facility] Urobilinogen mg/dL /2011 Medical
*NA*< Center br/>(07/15 06:06:00) <sup> </sup> URINALYSIS UA Mucus Few /LPF None Seen 07/15 [facility] Medical *NA* [place] (2012 06:06:00) URINALYSIS UA Bacteria Occasional /HPF None Seen 07/15 [facility] *NA* [place] (2012 06:06:00) URINALYSIS UA WBC null 0 - 5 07/15 Normal [facility] URINALYSIS UA RBC 1 /HPF 0 - 2 07/15 Normal [facility] URINALYSIS UA Sq Epi Occasional /LPF Few 07/15 [facility] *NA* [place] (2012 06:06:00) URINALYSIS UA Leuk Est Negative Negative 07/15 Normal Medical (2012 06:06:00) Center URINALYSIS UA Glucose Negative mg/dL Negative 07/15 [facility] Medical *NA* Center (2012 06:06:00) URINALYSIS UA Blood Negative Negative 07/15 Normal Medical (2012 06:06:00) Center URINALYSIS UA Nitrite Negative Negative 07/15 Normal Medical (2012 06:06:00) Center URINALYSIS UA Bili Negative Negative 07/15 NA Medical *NA* Center (2012 06:06:00) URINALYSIS UA Ketones Negative mg/dL Negative 07/15 [facility] Medical *NA* Center (2012 06:06:00) URINALYSIS UA pH 5.0 5.0 - 8.0 07/15 Normal [facility] URINALYSIS UA Spec Grav 1.011 <=1.030 07/15 Normal [facility] URINALYSIS UA Turbidity Clear Clear 07/15 Normal [facility] (2012 06:06:00) Center URINALYSIS UA Protein Negative mg/dL Negative 07/15 Normal Medical (2012 06:06:00) Center URINALYSIS UA Color Yellow Yellow 07/15 [facility] Medical *NA* Center (2012 06:06:00) Microbiolog Culture: 07/15 [facility] Center BEDSIDE Gluc POC 125 mg/dL 70 - 99 07/15 HI 2Interpretive [facility] GLUCOSE Lifscn Data: Medical TESTING Center Upper Reportable Limit: 200 mg/dL. BEDSIDE Comment1 Notify 07/15 [facility] Reddy GLUCOSE RODRIGUE/ /2011 Medical TESTING Center BEDSIDE Gluc POC 171 mg/dL 70 - 99 07/15 HI 1Interpretive [facility] GLUCOSE Lifscn Data: Medical TESTING Center Upper Reportable Limit: 200 mg/dL. BEDSIDE Gluc POC 104 mg/dL 70 - 99 07/14 HI 2Interpretive [facility] GLUCOSE Lifscn Data: Medical TESTING Center Upper Reportable Limit: 200 mg/dL. BEDSIDE Comment1 Notify 07/14 [facility] Reddy PICKARD RN/ /2012 Medical TESTING Center BEDSIDE Gluc POC 171 mg/dL 70 - 99 07/14 HI 3Interpretive [facility] GLUCOSE Lifscn Data: Medical TESTING Center Upper Reportable Limit: 200 mg/dL. BEDSIDE Comment1 Notify 07/14 NA [facility] GLUCOSE RN/MD /2011 Medical TESTING Center CHEMISTRY Magnesium 1.5 mg/dL 1.8 - 2.4 07/[address] [facility] CHEMISTRY AGAP 14.6 meq/L 10.0 - 07/14 Normal [facility] 20.0 Medical Center CHEMISTRY CO2 27 meq/L 24 - 32 07/14 Normal Medical Center CHEMISTRY Potassium 4.6 meq/L 3.5 - 5.1 07/[address] [facility] CHEMISTRY Chloride Lvl 103 meq/L 95 - 109 07/14 Normal Medical Center CHEMISTRY BUN 25 mg/dL 7 - 22 07/14 HI [facility] CHEMISTRY Glucose Lvl 143 mg/dL 70 - 99 07/14 HI 5Interpretive Data: Adult reference range values reflect the clinical guidelines of the [place] [employer]. Medical Center CHEMISTRY Calcium Lvl 9.2 mg/dL 8.5 - 10.5 07/14 Normal Medical Center CHEMISTRY Creatinine 0.9 mg/dL 0.5 - 1.4 07/[address] [facility] CHEMISTRY Sodium Lvl 140 meq/L 135 - 145 07/14 Normal Medical Center CHEMISTRY Phosphorus 2.8 mg/dL 2.5 - 4.5 07/14 Normal [facility] CHEMISTRY Ca Norm mgdL 5.44 mg/dL 4.65 - 07/14 [facility] 5. Medical Center CHEMISTRY Ca Norm 1.36 1.16 - 07/14 [facility] [place] mMol/L 1.30 Medical Center CHEMISTRY Ca Ion 1.31 1.16 - 07/14 [facility] [place] mMol/L 1.30 Medical Center CHEMISTRY Ca Ion mgdL 5.24 mg/dL 4.65 - 07/14 [facility] 5. Medical Center HEMATOLOGY Basophils 0.3 % 0.0 - 1.0 07/14 Normal [facility] HEMATOLOGY Segs-Bands # 4.7 K/CMM 1.5 - 8.1 07/14 Normal [facility] HEMATOLOGY Monocytes 7.9 % 2.0 - 12.0 07/14 Normal [facility] HEMATOLOGY Eosinophils 3.7 % 0.0 - 4.0 09/18 Normal [facility] HEMATOLOGY Lymphocytes 0.9 K/CMM 1.0 - 5.5 09/ LOW [place] # /2011 Medical Center HEMATOLOGY Basophils # 0.0 K/CMM 0.0 - 0.2 07/14 Normal /2011 [facility] HEMATOLOGY Monocytes # 0.5 K/CMM 0.0 - 0.8 07/14 Normal /2011 [facility] HEMATOLOGY Eosinophils 0.2 K/CMM 0.0 - 0.5 07/14 Normal [place] # /2011 [facility] HEMATOLOGY Lymphocytes 14.8 % 20.0 - 09 LOW [place] 40.0 /2011 [facility] HEMATOLOGY Segs 73.3 % 45.0 - 07/14 Normal [facility] 75.0 /2011 [facility] HEMATOLOGY INR 1.02 0.85 - 07/14 Normal 16Interpretive Data: RECOMMENDED RANGES FOR PROTIME INR: [facility] . 2.0-3.0 for most medical and surgical thromboembolic states. Medical 2.5-3.5 for artificial heart valves and recurrent embolism. Center INR SHOULD BE USED ONLY FOR PATIENTS ON STABLE ANTICOAGULANT THERAPY. HEMATOLOGY PTT 30.5 s 22.9 - 07/14 Normal 19Interpretiv [facility] 35.8 /2011 e Data: [facility] Therapeutic Range: 57 - 92 Seconds HEMATOLOGY PT 13.6 s 12.0 - 07/14 Normal [facility] 14.7 /2011 [facility] HEMATOLOGY RDW 14.4 % 11.5 - 07/14 Normal [facility] 14.5 [facility] HEMATOLOGY MPV 8.6 fL 7.4 - 10.4 07/14 Normal /2011 [facility] HEMATOLOGY Platelet 154 K/CMM 133 - 450 07/14 Normal /2011 [facility] HEMATOLOGY Hgb 10.3 g/dL 12.0 - 07/14 LOW [place] 16.0 /2011 [facility] HEMATOLOGY Hct 30.1 % 36.0 - 07/14 LOW [facility] 48.0 /2011 [facility] HEMATOLOGY MCHC 34.4 g/dL 32.0 - 07/14 Normal [facility] 36.0 [facility] HEMATOLOGY MCH 30.5 pg 27.0 - 07/14 Normal [facility] 31.0 /2011 [facility] HEMATOLOGY MCV 88.7 fL 81.0 - 07/14 Normal [facility] 99.0 /2011 [facility] HEMATOLOGY RBC 3.39 M/CMM 4.20 - 07/14 LOW [facility] 5.40 /2011 Medical Center HEMATOLOGY WBC 6.4 K/CMM 3.7 - 10.4 07/14 Normal [facility] Center CHEMISTRY Magnesium 2.2 mg/dL 1.8 - 2.4 07/13 Normal Medical Center CHEMISTRY CK MB Index 2.8 0.0 - 2.5 07/13 HI Medical Center CHEMISTRY CK MB 2.9 ng/mL 0.5 - 3.6 07/13 Normal Medical [facility] CHEMISTRY Total CK 104 unit/L - 07/13 Normal [facility] Center CHEMISTRY Troponin-I 11.80 0.00 - 07/13 CRIT 11Result [place] ng/mL 0.40 Comment: Medical Critical Center Result(s) called to perla ni at _07/13/2012 16:24:24 CDT by_nvj. Read back OK. CHEMISTRY Troponin-T 2.370 0.000 - 07/13 CRIT 8Result [place] ng/mL 0.100 Comment: Medical Critical Center Result(s) called to MS. DAN at 07/13/2012 16:34:32 CDT by MANINDER. Read back OK. CHEMISTRY CK MB Index 3.0 0.0 - 2.5 07/13 HI Medical Center CHEMISTRY CK MB 3.2 ng/mL 0.5 - 3.6 07/13 Normal [facility] Center CHEMISTRY Total CK 108 unit/L - 07/13 Normal [facility] CHEMISTRY Troponin-I 13.40 0.00 - 07/13 CRIT 12Result [place] ng/mL 0.40 Comment: Medical Critical Center Result(s) called to perla dan at 07/13/2012 13:00:19 CDT_ by_lss. Read back OK. CHEMISTRY Troponin-T 3.090 0.000 - 07/13 CRIT 9Result [place] ng/mL 0.100 Comment: Medical Critical Center Result(s) called to Rosalinda Ely at 07/13/2012 13:06:41 CDT by RG. Read back OK. CHEMISTRY Magnesium 1.8 mg/dL 1.8 - 2.4 07/13 Normal Medical Center CHEMISTRY Phosphorus 2.9 mg/dL 2.5 - 4.5 07/13 Normal [facility] CHEMISTRY Creatinine 1.1 mg/dL 0.5 - 1.4 07/13 Normal [facility] Lvl Medical Center CHEMISTRY Sodium Lvl 140 meq/L 135 - 145 07/13 Normal [facility] CHEMISTRY Glucose Lvl 138 mg/dL 70 - 99 07/13 HI 6Interpretive Data: Adult reference range values reflect the clinical guidelines of the [place] [employer]. Medical Center CHEMISTRY BUN 44 mg/dL 7 - 22 07/13 HI [facility] Center CHEMISTRY Potassium 4.6 meq/L 3.5 - 5.1 07/13 Normal [facility] Lvl [facility] CHEMISTRY Chloride Lvl 103 meq/L 95 - 109 07/13 Normal [facility] CHEMISTRY CO2 24 meq/L 24 - 32 07/13 Normal [facility] CHEMISTRY Calcium Lvl 8.9 mg/dL 8.5 - 10.5 07/13 Normal [facility] CHEMISTRY AGAP 17.6 meq/L 10.0 - 07/13 Normal [facility] 20.0 [facility] CHEMISTRY Ca Norm mgdL 4.56 mg/dL 4.65 - 07/13 LOW [facility] 5. [facility] CHEMISTRY Ca Ion mgdL 4.64 mg/dL 4.65 - 07/13 LOW [facility] 5.20 [facility] CHEMISTRY Ca Norm 1.14 1.16 - 07/13 LOW [facility] mMol/L 1.30 [facility] CHEMISTRY Ca Ion 1.16 1.16 - 07/13 Normal [facility] mMol/L 1.30 [facility] HEMATOLOGY INR 0.99 0.85 - 07/13 Normal 17Interpretive Data: RECOMMENDED RANGES FOR PROTIME INR: [facility] 11.12 2.0-3.0 for most medical and surgical thromboembolic states. Medical 2.5-3.5 for artificial heart valves and recurrent embolism. Center INR SHOULD BE USED ONLY FOR PATIENTS ON STABLE ANTICOAGULANT THERAPY. HEMATOLOGY PTT 28.1 s 22.9 - 07/13 Normal 20Interpretiv [facility] 35.8 /2011 e Data: [facility] Therapeutic Range: 57 - 92 Seconds HEMATOLOGY PT 13.3 s 12.0 - 07/13 Normal [facility] 14.7 Medical Center HEMATOLOGY MPV 9.0 fL 7.4 - 10.4 07/13 Normal /2011 Medical Center HEMATOLOGY MCH 30.0 pg 27.0 - 07/13 Normal [place] 31.0 /2011 Medical Center HEMATOLOGY MCHC 33.6 g/dL 32.0 - 07/13 [facility] [place] 36.0 /2011 [facility] HEMATOLOGY RDW 14.8 % 11.5 - 07/13 HI [place] 14.5 /2011 Medical Center HEMATOLOGY Platelet 127 K/CMM 133 - 450 07/13 [facility] Medical Center HEMATOLOGY Hct 32.2 % 36.0 - 07/13 [facility] [place] 48.0 /2011 Medical Center HEMATOLOGY Hgb 10.8 g/dL 12.0 - 07/13 [facility] [place] 16.0 [facility] HEMATOLOGY RBC 3.61 M/CMM 4.20 - 07/13 [facility] [place] 5.40 /2011 Medical Center HEMATOLOGY WBC 6.8 K/CMM 3.7 - 10.4 07/13 Normal [facility] HEMATOLOGY MCV 89.3 fL 81.0 - 07/13 [facility] [place] 99.0 /2011 Medical Center HEMATOLOGY Eosinophils 3.0 % 0.0 - 4.0 07/13 Normal [facility] HEMATOLOGY Monocytes 9.4 % 2.0 - 12.0 07/13 [facility] HEMATOLOGY Segs 74.2 % 45.0 - 07/13 [facility] [place] 75.0 /2011 [facility] HEMATOLOGY Lymphocytes 13.0 % 20.0 - 07/13 LOW [place] 40.0 /2011 Medical Center HEMATOLOGY Basophils # 0.0 K/CMM 0.0 - 0.2 07/13 Normal [facility] HEMATOLOGY Eosinophils 0.2 K/CMM 0.0 - 0.5 07/13 Normal [place] # /2011 Medical Center HEMATOLOGY Lymphocytes 0.9 K/CMM 1.0 - 5.5 07/13 LOW [place] # /2011 Medical Center HEMATOLOGY Monocytes # 0.6 K/CMM 0.0 - 0.8 07/13 Normal [facility] HEMATOLOGY Basophils 0.4 % 0.0 - 1.0 07/13 Normal [facility] HEMATOLOGY Segs-Bands # 5.0 K/CMM 1.5 - 8.1 07/13 Normal Medical Center HEMATOLOGY Hgb 10.4 g/dL 12.0 - 07/[address] [facility] 16.0 Medical Center HEMATOLOGY Hct 31.1 % 36.0 - 07/[address] [facility] 48.0 /2011 Medical Center CHEMISTRY Troponin-T 4.890 0.000 - 07/12 CRIT 10Result [place] ng/mL 0.100 /2011 Comment: Medical Critical Center Result(s) called to Nettie Lopez_ at 07/12/2012 04:04:00 CDT_ by_mgm. Read back OK. (endorsed by [facility] Tech to release result while in break). CHEMISTRY Troponin-I 30.40 0.00 - 07/12 CRIT 13Result [place] ng/mL 0.40 /2011 Comment: Medical Critical Center Result(s) called to nettie chung_ wu _07/12/2012 03:28:01 CDT by_lg. Read back OK. CHEMISTRY Total CK 335 unit/L 12 - 191 07/12 [facility] Medical Center CHEMISTRY CK MB Index 1.9 0.0 - 2.5 07/12 Normal [facility] CHEMISTRY CK MB 6.5 ng/mL 0.5 - 3.6 07/12 [facility] CHEMISTRY AGAP 16.2 meq/L 10.0 - 07/12 Normal [facility] 20.0 Medical Center CHEMISTRY Chloride Lvl 99 meq/L 95 - 109 07/12 Normal [facility] CHEMISTRY CO2 23 meq/L 24 - 32 07/12 [facility] CHEMISTRY Calcium Lvl 8.8 mg/dL 8.5 - 10.5 07/12 Normal [facility] CHEMISTRY Creatinine 1.9 mg/dL 0.5 - 1.4 07/12 [facility] Center CHEMISTRY Sodium Lvl 134 meq/L 135 - 145 07/12 [facility] Medical Center CHEMISTRY Potassium 4.2 meq/L 3.5 - 5.1 07/[address] [facility] CHEMISTRY Glucose Lvl 167 mg/dL 70 - 99 07/12 HI 7Interpretive Data: Adult reference range values reflect the clinical guidelines of the [place] [employer]. Medical Center CHEMISTRY BUN 60 mg/dL 7 - 22 07/12 [facility] Medical Center CHEMISTRY Phosphorus 4.2 mg/dL 2.5 - 4.5 07/12 Normal [facility] CHEMISTRY Ca Norm mgdL 4.48 mg/dL 4.65 - 07/12 LOW [facility] 5. [facility] CHEMISTRY Ca Ion mgdL 4.60 mg/dL 4.65 - 07/12 LOW [facility] 5. [facility] CHEMISTRY Ca Norm 1.12 1.16 - 07/12 LOW [place] mMol/L 1. [facility] CHEMISTRY Ca Ion 1.15 1.16 - 07/12 LOW [facility] mMol/L 1. [facility] HEMATOLOGY PTT 28.2 s 22.9 - 07/12 Normal 21Interpretiv [facility] 35.8 /2011 e Data: [facility] Therapeutic Range: 57 - 92 Seconds HEMATOLOGY PT 13.3 s 12.0 - 07/12 Normal [facility] 14.7 [facility] HEMATOLOGY INR 0.99 0.85 - 07/12 Normal 18Interpretive Data: RECOMMENDED RANGES FOR PROTIME INR: [facility] . 2.0-3.0 for most medical and surgical thromboembolic states. Medical 2.5-3.5 for artificial heart valves and recurrent embolism. Center INR SHOULD BE USED ONLY FOR PATIENTS ON STABLE ANTICOAGULANT THERAPY. HEMATOLOGY WBC 8.9 K/CMM 3.7 - 10.4 07/12 Normal [facility] HEMATOLOGY RBC 3.60 M/CMM 4.20 - 07/[address] [facility] 5.40 [facility] HEMATOLOGY MCV 88.5 fL 81.0 - 07/12 [facility] 99.0 [facility] HEMATOLOGY MCH 29.8 pg 27.0 - 07/12 Normal [facility] 31.0 [facility] HEMATOLOGY MCHC 33.7 g/dL 32.0 - 07/12 [facility] 36.0 [facility] HEMATOLOGY MPV 8.8 fL 7.4 - 10.4 07/12 [facility] HEMATOLOGY RDW 14.6 % 11.5 - 07/12 HI [facility] 14.5 [facility] HEMATOLOGY Platelet 143 K/CMM 133 - 450 07/12 Normal [facility] HEMATOLOGY Basophils # 0.0 K/CMM 0.0 - 0.2 07/12 Normal [facility] HEMATOLOGY Lymphocytes 11.6 % 20.0 - 07/12 LOW [facility] 40.0 [facility] HEMATOLOGY Monocytes 7.4 % 2.0 - 12.0 07/12 Normal /2011 [facility] HEMATOLOGY Eosinophils 3.1 % 0.0 - 4.0 07/12 Normal /2011 [facility] HEMATOLOGY Lymphocytes 1.0 K/CMM 1.0 - 5.5 07/12 Normal [facility] /2011 [facility] HEMATOLOGY Monocytes # 0.7 K/CMM 0.0 - 0.8 07/12 Normal /2011 [facility] HEMATOLOGY Basophils 0.3 % 0.0 - 1.0 07/12 Normal /2011 [facility] HEMATOLOGY Eosinophils 0.3 K/CMM 0.0 - 0.5 07/12 Normal [facility] # /2011 [facility] HEMATOLOGY Segs-Bands # 6.9 K/CMM 1.5 - 8.1 07/12 Normal /2011 [facility] HEMATOLOGY Segs 77.6 % 45.0 - 07/12 HI [place] 75.0 /2011 [facility] BLOOD BANK Antibody Negative 07/11 Normal [facility] RESULTS Sc[facility] Medical (07/11/2012 15:15:00) Center BLOOD BANK ABO/Rh O NEG 07/11 Unknown [facility] RESULTS [facility] BLOOD BANK RBC product Product available 07/11 Normal [facility] RESULTS Medical (07/11/2012 12:54:00) Center CHEMISTRY eGFR 22 07/11 NA 4Result Comment: Expected eGFR for >20 yr. age group: >=60 ml/min/1.73 sq m Medical The eGFR calculation is not valid in or for Center persons < 18 years of age. From [employer] (NKDEP) HEMATOLOGY ASA Effect 456 ARU 07/10 NA 22Interpretive Data: Test results are reported in Aspirin Reaction Units (ARU). [facility] Plt /2011 Medical 350-549 ARU - Therapeutic range for platelet function Center (Patient's aspirin is working effectively) 550-700 ARU - Non-therapeutic range for platelet function (Patient is not responding to aspirin) Values cannot be reported below 350 and above 700 for analytical reasons with no known clinical significance. Interferences: -Platelet counts less than 92,000/uL. -Hematocrit values less than 29% or greater than 56%. -Patients taking: GP IIb/IIIa inhibitor, e.g. ReoPro or Integrilin. -Ingestion of NSAIDs concurrent with ASA therapy may result in higher ARU values than ASA taken alone. HEMATOLOGY Plav Effect 331 PRU 07/10 NA 23Interpretive Data: PRU reference range is 194 - 418. [facility] Medical Post Drug Results: Lower PRU levels are associated with expected Center antiplatelet effect. Values may be below the stated reference range above. The post-drug PRU values reported in the [employer] P2Y12 Test package insert are 18 - 435. Interference: Platelet counts less than 120,000 or greater than 502,000 Hematocrit values less than 33% or greater than 52% Patient taking GP IIb/IIIa Inhibitor, e.g. ReoPro or Integrilin CHEMISTRY Folate Lvl 17.7 ng/mL >=3.0 07/10 Normal [facility]2011 [facility] CHEMISTRY Vitamin B12 420 pg/mL 254 - 1320 07/10 Normal [facility] CHEMISTRY FTI 2.7 07/10 NA [facility]2011 [facility] CHEMISTRY U Opiate Scr Positive Negative 07/10 ABN [facility] *ABN* [place] (07/09/2012 21:33:00) CHEMISTRY U Benzodia Positive Negative 07/10 ABN [facility] Medical *ABN* [place] (07/09/2012 21:33:00) CHEMISTRY U Phencyc Negative Negative 07/10 NA [facility] Medical *NA* [place] (07/09/2012 21:33:00) CHEMISTRY UDS Note See Note 15 07/10 Normal 15Interpretive Data: Drugs reported as positive have not been confirmed by a second method and should be used for medical purposes only. To order Medical (07/09/2012 21:33:00) confirmation, contact laboratory. Center note: Below are cut-off concentrations for all urine drugs of abuse performed in the laboratory. Some drugs listed in the table may not be included in this panel. Description Cut-off concentration Amphetamine 1000 ng/mL Barbiturates 200 ng/mL Benzodiazepines 300 ng/mL Cocaine metabolites 300 ng/mL Opiates 300 ng/mL Phencyclidine 25 ng/mL Propoxyphene 300 ng/mL Marijuana metabolites 50 ng/mL Methadone 300 ng/mL Urine alcohol 20 mg/dL CHEMISTRY U Cocaine Negative Negative 07/10 NA [facility] Scr [facility] *NA* Center (07/09/2012 21:33:00) CHEMISTRY U Cannab Scr Negative Negative 07/10 [facility] [place] (07/09/2012 21:33:00) CHEMISTRY U Amph Scr Negative Negative 07/10 NA [facility] [place] (07/09/2012 21:33:00) CHEMISTRY U Kaye Scr Negative Negative 07/10 [facility] [place] (07/09/2012 21:33:00) CHEMISTRY T3 Uptake 34 % 31 - 39 07/10 Normal [facility] CHEMISTRY TSH 0.624 0.360 - 07/10 [facility] uIU/mL 3.740 [facility] CHEMISTRY T4 7.9 ug/dl 4.7 - 13.3 07/10 Normal [facility] CHEMISTRY CHD Risk 4.41 3.90 - 07/10 Normal [facility] 5.80 [facility] CHEMISTRY LDL 97 mg/dL 0 - 129 07/10 Normal [facility] CHEMISTRY Trig 147 mg/dL 0 - 200 07/10 Normal [facility] CHEMISTRY Chol 163 mg/dL 120 - 200 07/10 Normal [facility] CHEMISTRY HDL 37 mg/dL >=35 07/10 Normal [facility] CHEMISTRY Hgb A1C 7.8 % 07/10 14Interpretive Data: HbA1C% eAG( mg/dL) Interpretation 6.0 126 Very good control Medical 6.5 140 Very good control Center 7.0 154 Good Control 7.5 169 Good Control 8.0 183 Marginal Control, take action to lower 8.5 197 Marginal Control, take action to lower 9.0 212 Poor Control, take action to lower 9.5 226 Poor Control, take action to lower 10.0 240 Poor Control, take action to lower CHEMISTRY POC A K 4.2 meq/L 3.5 - 5.1 07/09 Normal [facility] CHEMISTRY POC A Ca Ion 1.18 1.16 - 07/09 Normal [facility] mMol/L 1.30 [facility] CHEMISTRY POC A LA 1.7 mMol/L 0.5 - 2.2 07/09 Normal [facility] CHEMISTRY POC A Hct 30.0 % 36.0 - 07/09 LOW [facility] 48.0 Medical Center CHEMISTRY POC A Na 131 meq/L 135 - 145 07/09 [facility] CHEMISTRY POC A Glu 225 mg/dL 70 - 99 07/09 [facility] Medical Center CHEMISTRY POC A PO2 123 mm[Hg] 80 - 100 07/09 [facility] Medical Center CHEMISTRY POC A PCO2 33 mm[Hg] 35 - 45 07/09 LOW [facility] CHEMISTRY POC A O2 Sat 99.0 % 95.0 - 07/09 Normal [facility] 100.0 [facility] CHEMISTRY POC A HCO3 26 mMol/L 22 - 26 07/09 Normal [facility] CHEMISTRY POC A BE 3 mMol/L -2-2 - 2 07/09 [facility] CHEMISTRY POC A Temp 37.0 Erlinda 07/09 NA [facility] CHEMISTRY POC A Source ART 07/09 NA [facility] CHEMISTRY POC A pH 7.51 7.35 - 07/09 [facility] 7.45 [facility] CHEMISTRY Myoglobin 199 ng/mL 25 - 72 07/09 [facility] HEMATOLOGY Plt Morph Normal 07/09 Normal Medical (07/09/2012 17:24:00) Center HEMATOLOGY RBC Morph Normal 07/09 Normal Medical (07/09/2012 17:24:00) Center BEDSIDE Comment2 Notify 07/09 [facility] GLUCOSE RN/MD /2011 Medical TESTING Center BLOOD BANK Platelet Product available 07/09 Normal [facility] RESULTS product Medical (07/09/2012 07:43:00) Center BLOOD BANK Antibody Negative 07/07 Normal [facility] RESULTS Scrn Medical (07/07/2012 06:10:00) Center BLOOD BANK ABO/Rh O NEG 07/07 Unknown [facility] RESULTS /2011 [facility] CHEMISTRY A/G Ratio 1.3 0.7 - 1.6 07/06 Normal [facility] CHEMISTRY B/C Ratio 22 6 - 25 07/06 Normal [facility] CHEMISTRY Globulin 3.0 g/dL 2.0 - 4.0 07/06 Normal [facility] CHEMISTRY AST 19 unit/L 0 - 37 07/06 Normal [facility] CHEMISTRY Total 6.9 g/dL 6.4 - 8.4 07/06 Normal [facility] [address] [place] [address] CHEMISTRY Bili Total 0.4 mg/dL 0.2 - 1.3 07/[address] CHEMISTRY ALT 24 unit/L 0 - 65 07/[address] CHEMISTRY Albumin Lvl 3.9 g/dL 3.5 - 5.0 07/[address] CHEMISTRY Alk Phos 68 unit/L 39 - 136 07/[address] Vital Signs Vital Sign Value Date Comments Source Height 158.24 cm 04/22/2018 [facility] Weight 65.568 04/22/2018 [facility] BMI Calculated 26.19 04/22/2018 [facility] Temperature Oral (F) 97.9 F 04/22/2018 [facility] Respitory Rate 18 04/22/2018 [facility] Heart Rate 92 04/22/2018 [facility] Systolic (mm Hg) 107 04/22/2018 [facility] Diastolic (mm Hg) 64 04/22/2018 [facility] BMI Calculated 26.33 04/02/2018 [facility] Height 158.5 cm 04/02/2018 [facility] Systolic (mm Hg) 127 04/02/2018 [facility] Diastolic (mm Hg) 67 04/02/2018 [facility] Weight 66.136 04/02/2018 [facility] Heart Rate 56 04/02/2018 [facility] Respitory Rate 18 04/02/2018 [facility] Temperature Oral (F) 97.0 F 04/02/2018 [facility] Systolic (mm Hg) 138 03/19/2018 [facility] Diastolic (mm Hg) 71 03/19/2018 [facility] Temperature Oral (F) 78 F 03/19/2018 [facility] Heart Rate 75 03/19/2018 [facility] Respitory Rate 17 03/19/2018 [facility] BMI Calculated 25.55 03/19/2018 [facility] Height 158.6 cm 03/19/2018 [facility] Weight 64.273 03/19/2018 [facility] Height 158.6 cm 03/19/2018 [facility] BMI Calculated 25.5 03/19/2018 [facility] Weight 64.148 03/19/2018 [facility] Heart Rate 79 03/19/2018 [facility] Temperature Oral (F) 98.2 F 03/19/2018 [facility] Respitory Rate 18 03/19/2018 [facility] Systolic (mm Hg) 109 03/19/2018 [facility] Diastolic (mm Hg) 61 03/19/2018 [facility] Respitory Rate 16 03/02/2018 [facility] Heart Rate 84 03/02/2018 [facility] Systolic (mm Hg) 127 03/02/2018 [facility] Diastolic (mm Hg) 66 03/02/2018 [facility] Height 158.6 cm 03/02/2018 [facility] Weight 62.273 03/02/2018 [facility] BMI Calculated 24.76 03/02/2018 [facility] Systolic (mm Hg) 102 02/11/2018 [facility] Diastolic (mm Hg) 60 02/11/2018 [facility] Heart Rate 77 02/11/2018 [facility] Weight 60.938 02/11/2018 [facility] BMI Calculated 24.23 02/11/2018 [facility] Height 158.6 cm 02/11/2018 [facility] Temperature Oral (F) 98.2 F 02/11/2018 [facility] Respitory Rate 16 02/11/2018 [facility] Systolic (mm Hg) 136 02/06/2018 [facility] Diastolic (mm Hg) 79 02/06/2018 [facility] Temperature Oral (F) 97.1 F 02/06/2018 [facility] Respitory Rate 20 02/06/2018 [facility] Systolic (mm Hg) 121 02/06/2018 [facility] Diastolic (mm Hg) 56 02/06/2018 [facility] Respitory Rate 20 02/06/2018 [facility] Temperature Oral (F) 96.8 F 02/06/2018 [facility] Systolic (mm Hg) 115 02/06/2018 [facility] Diastolic (mm Hg) 58 02/06/2018 [facility] Respitory Rate 22 02/06/2018 [facility] Temperature Oral (F) 96.7 F 02/06/2018 [facility] Weight 63.273 01/27/2018 [facility] BMI Calculated 24.93 01/27/2018 [facility] Weight 63.835 01/27/2018 [facility] Height 160.02 cm 01/27/2018 [facility] Heart Rate 80 01/26/2018 [facility] Heart Rate 82 01/26/2018 [facility] Heart Rate 82 01/26/2018 [facility] Weight 63.636 01/26/2018 [facility] BMI Calculated 24.85 01/26/2018 [facility] Height 160.02 cm 01/26/2018 [facility] Height 158.6 cm 01/26/2018 [facility] BMI Calculated 25.41 01/26/2018 [facility] Weight 63.909 01/26/2018 [facility] Temperature Oral (F) 98.5 F 01/26/2018 [facility] Heart Rate 82 01/26/2018 [facility] Respitory Rate 16 01/26/2018 [facility] Systolic (mm Hg) 113 01/26/2018 [facility] Diastolic (mm Hg) 63 01/26/2018 [facility] BMI Calculated 24.31 01/19/2018 [facility] Weight 63.727 01/19/2018 [facility] Height 161.9 cm 01/19/2018 [facility] Temperature Oral (F) 97.7 F 01/19/2018 [facility] Respitory Rate 16 01/19/2018 [facility] Heart Rate 83 01/19/2018 [facility] Systolic (mm Hg) 104 01/19/2018 [facility] Diastolic (mm Hg) 51 01/19/2018 [facility] Weight 61.96 01/12/2018 [facility] BMI Calculated 24.2 01/12/2018 [facility] Height 160.02 cm 01/12/2018 [facility] Temperature Oral (F) 96.9 F 01/12/2018 [facility] Respitory Rate 18 01/12/2018 [facility] Heart Rate 80 01/12/2018 [facility] Systolic (mm Hg) 98 01/12/2018 [facility] Diastolic (mm Hg) 49 01/12/2018 [facility] Systolic (mm Hg) 120 01/05/2018 [facility] Diastolic (mm Hg) 58 01/05/2018 [facility] Respitory Rate 18 01/05/2018 [facility] Systolic (mm Hg) 122 01/05/2018 [facility] Diastolic (mm Hg) 60 01/05/2018 [facility] Systolic (mm Hg) 123 01/05/2018 [facility] Diastolic (mm Hg) 57 01/05/2018 [facility] Respitory Rate 18 01/05/2018 [facility] Temperature Oral (F) 97.4 F 01/05/2018 [facility] Respitory Rate 17 01/05/2018 [facility] Temperature Oral (F) 97.6 F 01/05/2018 [facility] Temperature Oral (F) 97.6 F 01/05/2018 [facility] BMI Calculated 25.03 01/01/2018 [facility] Weight 64.091 01/01/2018 [facility] Height 160.02 cm 01/01/2018 [facility] BMI Calculated 24.56 12/11/2017 [facility] Weight 62.898 12/11/2017 [facility] Height 160.02 cm 12/11/2017 [facility] Systolic (mm Hg) 125 12/11/2017 [facility] Diastolic (mm Hg) 63 12/11/2017 [facility] Temperature Oral (F) 97.1 F 12/11/2017 [facility] Heart Rate 97 12/11/2017 [facility] Respitory Rate 18 12/11/2017 [facility] Weight 64.182 12/08/2017 [facility] Height 160 cm 12/08/2017 [facility] BMI Calculated 25.07 12/08/2017 [facility] Systolic (mm Hg) 109 12/08/2017 [facility] Diastolic (mm Hg) 46 12/08/2017 [facility] Respitory Rate 18 12/08/2017 [facility] Heart Rate 84 12/08/2017 [facility] Temperature Oral (F) 98.1 F 12/08/2017 [facility] Heart Rate 64 11/29/2017 [facility] Systolic (mm Hg) 110 11/29/2017 [facility] Diastolic (mm Hg) 64 11/29/2017 [facility] Respitory Rate 18 11/29/2017 [facility] Temperature Oral (F) 98.2 F 11/29/2017 [facility] Heart Rate 66 11/29/2017 [facility] Respitory Rate 18 11/29/2017 [facility] Temperature Oral (F) 97.6 F 11/29/2017 [facility] Systolic (mm Hg) 109 11/29/2017 [facility] Diastolic (mm Hg) 58 11/29/2017 [facility] Systolic (mm Hg) 122 11/29/2017 [facility] Diastolic (mm Hg) 58 11/29/2017 [facility] Respitory Rate 20 11/29/2017 [facility] Temperature Oral (F) 98.5 F 11/29/2017 [facility] Heart Rate 74 11/29/2017 [facility] Weight 66.818 11/25/2017 [facility] BMI Calculated 27.3 11/20/2017 [facility] Weight 69.909 11/20/2017 [facility] Height 160.02 cm 11/20/2017 [facility] Systolic (mm Hg) 110 11/02/2017 [facility] Diastolic (mm Hg) 53 11/02/2017 [facility] Respitory Rate 32 11/02/2017 [facility] Systolic (mm Hg) 110 11/02/2017 [facility] Diastolic (mm Hg) 53 11/02/2017 [facility] Respitory Rate 23 11/02/2017 [facility] Systolic (mm Hg) 104 11/02/2017 [facility] Diastolic (mm Hg) 52 11/02/2017 [facility] Respitory Rate 23 11/02/2017 [facility] Temperature Oral (F) 98 F 11/02/2017 [facility] Temperature Oral (F) 98.6 F 11/01/2017 [facility] Height 158.24 cm 10/31/2017 [facility] Temperature Oral (F) 98.3 F 10/31/2017 [facility] Heart Rate 85 10/31/2017 [facility] Heart Rate 76 10/31/2017 [facility] Heart Rate 84 10/31/2017 [facility] BMI Calculated 28.94 10/29/2017 [facility] Height 158.24 cm 10/29/2017 [facility] Weight 72.455 10/29/2017 [facility] Weight 71.989 10/29/2017 [facility] BMI Calculated 28.75 10/29/2017 [facility] Heart Rate 80 10/29/2017 [facility] Systolic (mm Hg) 136 10/29/2017 [facility] Diastolic (mm Hg) 72 10/29/2017 [facility] Temperature Oral (F) 96.8 F 10/29/2017 [facility] Respitory Rate 18 10/29/2017 [facility] Height 158.24 cm 10/29/2017 [facility] Height 157.48 cm 10/21/2017 [facility] BMI Calculated 28.96 10/21/2017 [facility] Weight 71.818 10/21/2017 [facility] Systolic (mm Hg) 116 10/14/2017 [facility] Diastolic (mm Hg) 60 10/14/2017 [facility] Temperature Oral (F) 97.8 F 10/14/2017 [facility] Height 159.77 cm 10/14/2017 [facility] Weight 72.301 10/14/2017 [facility] BMI Calculated 28.32 10/14/2017 [facility] Respitory Rate 18 05/29/2016 [facility] Systolic (mm Hg) 156 05/29/2016 [facility] Diastolic (mm Hg) 73 05/29/2016 [facility] Systolic (mm Hg) 142 05/29/2016 [facility] Diastolic (mm Hg) 70 05/29/2016 [facility] Respitory Rate 19 05/29/2016 [facility] Systolic (mm Hg) 150 05/29/2016 [facility] Diastolic (mm Hg) 77 05/29/2016 [facility] Respitory Rate 19 05/29/2016 [facility] Height 165.1 cm 05/29/2016 [facility] Weight 78.636 05/29/2016 [facility] BMI Calculated 28.85 05/29/2016 [facility] Diastolic (mm Hg) 88 01/20/2013 [facility] Systolic (mm Hg) 163 01/20/2013 [facility] Temperature Oral (F) 98.2 F 01/20/2013 [facility] Systolic (mm Hg) 154 01/20/2013 [facility] Diastolic (mm Hg) 93 01/20/2013 [facility] Systolic (mm Hg) 172 01/20/2013 [facility] Diastolic (mm Hg) 78 01/20/2013 [facility] Temperature Oral (F) 98.2 F 01/20/2013 [facility] Respitory Rate 12 01/19/2013 [facility] Respitory Rate 12 01/19/2013 [facility] Respitory Rate 12 01/19/2013 [facility] Temperature Oral (F) 97.7 F 01/19/2013 [facility] Weight 81.818 01/19/2013 [facility] Height 165.1 cm 01/19/2013 [facility] Systolic (mm Hg) 108 07/31/2012 [facility] Diastolic (mm Hg) 60 07/31/2012 [facility] Heart Rate 86 07/31/2012 [facility] Systolic (mm Hg) 112 07/31/2012 [facility] Respitory Rate 20 07/31/2012 [facility] Heart Rate 83 07/31/2012 [facility] Temperature Oral (F) 98.3 F 07/31/2012 [facility] Systolic (mm Hg) 113 07/31/2012 [facility] Diastolic (mm Hg) 68 07/31/2012 [facility] Respitory Rate 20 07/31/2012 [facility] Heart Rate 89 07/31/2012 [facility] Temperature Oral (F) 99.2 F 07/31/2012 [facility] Temperature Oral (F) 99.0 F 07/31/2012 [facility] Respitory Rate 20 07/31/2012 [facility] Diastolic (mm Hg) 69 07/31/2012 [facility] Weight 86.364 07/22/2012 [facility] Height 162.56 cm 07/22/2012 [facility] Systolic (mm Hg) 118 07/21/2012 [facility] Diastolic (mm Hg) 64 07/21/2012 [facility] Temperature Oral (F) 98.7 F 07/21/2012 [facility] Systolic (mm Hg) 107 07/21/2012 [facility] Diastolic (mm Hg) 57 07/21/2012 [facility] Diastolic (mm Hg) 72 07/21/2012 [facility] Systolic (mm Hg) 130 07/21/2012 [facility] Temperature Oral (F) 97.8 F 07/21/2012 [facility] Temperature Oral (F) 98.5 F 07/21/2012 [facility] Respitory Rate 18 07/20/2012 [facility] Respitory Rate 18 07/20/2012 [facility] Respitory Rate 18 07/20/2012 [facility] Weight 67 07/16/2012 [facility] Heart Rate 82 2012 [facility] Height 165.1 cm 2012 [facility] Weight 82.273 2012 [facility] Diastolic (mm Hg) 84 2012 [facility] Systolic (mm Hg) 123 2012 [facility] Temperature Oral (F) 99.1 F 2012 [facility] Heart Rate 123 2012 [facility] Respitory Rate 18 2012 [facility] Heart Rate 61 2012 [facility] Diastolic (mm Hg) 83 2012 [facility] Systolic (mm Hg) 136 2012 [facility] Diastolic (mm Hg) 58 2012 [facility] Systolic (mm Hg) 111 2012 [facility] Heart Rate 89 2012 [facility] Respitory Rate 20 2012 [facility] Temperature Oral (F) 98.5 F 2012 [facility] Respitory Rate 20 2012 [facility] Temperature Oral (F) 98.5 F 2012 [facility] Height 165.10 cm 2012 [facility] Weight 82.273 2012 [facility] Diastolic (mm Hg) 55 2012 [facility] Systolic (mm Hg) 108 2012 [facility] Systolic (mm Hg) 122 2012 [facility] Diastolic (mm Hg) 55 2012 [facility] Temperature Oral (F) 98.4 F 2012 [facility] Diastolic (mm Hg) 74 07/14/2012 [facility] Systolic (mm Hg) 132 07/14/2012 [facility] Temperature Oral (F) 98.8 F 07/14/2012 [facility] Temperature Oral (F) 98.6 F 07/14/2012 [facility] Respitory Rate 18 07/13/2012 [facility] Respitory Rate 19 07/13/2012 [facility] Respitory Rate 17 07/13/2012 [facility] Heart Rate 98 07/09/2012 [facility] Heart Rate 99 07/09/2012 [facility] Heart Rate 80 07/09/2012 [facility] Weight 88.182 07/07/2012 [facility] Height 162.56 cm 07/07/2012 [facility] Weight 88.182 07/06/2012 [facility] Height 162.56 cm 07/06/2012 [facility] Weight 88.182 07/06/2012 [facility] Height 162.56 cm 07/06/2012 [facility] Encounters Location Location Encounter Encounter Reason Attending ADM DC Status Source Details Type Number For Provider Date Date Visit [facility] Inpatient [id number] LUMBAR SASCHA 07/09 07/14 Active [facility] 0 RADICULO REBEKA /2011 [facility] [place] [id number] MEILANI 07/14 07/15 Active [facility] In[facility] [id number] LUMBAR JORGE 07/15 07/21 Active [facility] 3 RAD GAURANG /2011 [facility] [place] [id number] SCI MEILANI 07/21 07/31 Active 9 [facility] WOJCIECH [id number] NADA GAUTAM 01/19 01/20 Active [facility] Out[facility] Diag [id number] [place] 04/20 04/21 [facility] 2 [facility] Bedded [id number] Ali 05/29 05/29 [facility] Outpatient 2 Denktas /2015 [facility] [id number] [place] 10/14 10/15 [facility] [facility] [id number] Biswajit 10/21 10/22 [facility] [place] 6 [facility] Phone [id number] 10/28 10/30 [facility] Message [facility] Outpatient [id number] Biswajit 10/29 10/30 [facility] [place] 4 [facility] Inpatient [id number] Biswajit 10/29 11/02 [facility] [place] 3 [facility] Inpatient [id number] Biswajit 11/19 11/29 [place] 0 С[facility] Recurring [id number] David Benedict 12/08 01/07 [facility] [place] 0 [facility] Outpatient [id number] Biswajit 12/11 12/12 [facility] [place] 1 [facility] Inpatient [id number] Jim 01/01 01/06 [facility] 6 [facility] Outpatient [id number] Biswajit 01/12 01/13 [facility] [place] 4 [facility] Recurring [id number] David Benedict 01/19 02/18 [facility] [place] [facility] Inpatient [id number] Gregor 01/26 02/06 [facility] [place] 8 [facility] Recurring [id number] David Benedict 03/02 04/01 [facility] [id number] David Benedict 04/02 04/03 [facility] Outpatient [id number] John 04/02 04/03 [facility] 8 [facility]patient [id number] John 04/22 04/23 [facility] [place] 7 [facility] Failure Procedures Procedure Code Date Perfomer Comments Source [place]opsy, [place] [id number] 02/02/2018 [facility] retroperitoneal mass, Medical percutaneous needle Center 11/28/2017 [facility] Biopsy, bone, trocar, 11/28/2017 [facility] or needle; deep (eg, Medical vertebral body, Center femur) [place], [place] [id number] 11/28/2017 [facility] retroperitoneal mass, Medical percutaneous needle [place] [id number] 11/25/2017 [facility] retroperitoneal mass, Medical percutaneous needle Center 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 [facility] Heart valve [id number] 10/27/2017 [facility] replacement [place] Appendectomy [id number] [facility] Breast biopsy and [id number] [facility] related procedures [facility] Cardiac [id number] [facility] catheterization [facility] Cataract surgery [id number] [facility] Hysterectomy [id number] [facility] Ulnar nerve [id number] [facility] Appendectomy [id number] [facility] Breast biopsy and [id number] Center related procedures for [facility] Cardiac [id number] Center catheterization [facility] Cataract surgery [id number] [facility] Hysterectomy [id number] [facility] Ulnar nerve [id number] Center decompression for [facility] Appendectomy [id number] [facility] Breast biopsy and [id number] [facility] related procedures [facility] Cardiac [id number] [facility] Cataract surgery [id number] [facility] Hysterectomy [id number] [facility] Ulnar nerve [id number] [facility] Appendectomy [id number] [facility] Breast biopsy and [id number] [facility] related procedures [place] Cardiac [id number] [facility] catheterization [facility] Cataract surgery [id number] [facility] Hysterectomy [id number] [facility] [place] Ulnar nerve [id number] [facility] decompression [facility]
[2018-04-25 10:57] LABS: Protime INR 1.16
--- OUTSIDE RECORDS SUMMARY | 2018-04-25 10:59 | XMS REPORT | CCD ---
:1935 Author Organization [facility] Care Team Providers Name Role Phone Ramone Birch Consulting Provider [phone] Tod Doran Consulting Provider Allergies, Adverse Reactions, Alerts Substance Reaction Status HYDROcodone-Pseudoephedrine HCl Active Problem List Condition Effective Dates Status CAD - Coronary artery disease Active DM - Diabetes mellitus Active Laminectomy Active O/E - pain Active Stented artery Active Medications Medication Instructions Start Date End Date Status heparin 5000 units/mL See Instructions, SUB-Q Q8H, 1 syr, Substitution Allowed , SOLN 2012 Ordered injectable solution SUB-Q Q8H clopidogrel 75 mg oral 75 mg, 1 tab, PO, Daily, 2012 Suspended tablet 30 tab, Substitution Allowed, TAB Lopressor 5 mg, 5 mL, Route: IV, 2012 2012 Completed Drug form: INJ, ONCE, Start date: 07/15/12 16:52:00, Stop date: 07/15/12 16:52:00 citalopram 10 mg oral 10 mg, 1 tab, PO, Daily, 2012 Suspended tablet 30 tab, Substitution Allowed, TAB Coreg 3.125 mg oral tablet 3.125 mg, 1 tab, PO, 2012 Suspended Q12H, 60 tab, Substitution Allowed, TAB atorvastatin 80 mg oral 80 mg, 1 tab, PO, QPM, 2012 Suspended tablet 30 tab, Substitution Allowed, TAB aspirin 325 mg tablet 325 mg, 1 tab, PO, 2012 Suspended Daily, 30 tab, Substitution Allowed, TAB metoprolol 5 mg/5 ml INJ 5 mg, Route: IVP, Drug 2012 2012 Discontinued form: INJ, Q2MIN, Dosing Weight 82.273, kg, PRN Other -See Comment, Start date: 07/15/12 16:41:00, Duration: 30 day, Stop date: 08/14/12 16:40:00 NS (Bolus) IV 500 mL 500 mL, Rate: 500 ml/hr, Infuse over: 1 hr, Route: IV, kg , Total Volume: 500, Priority: STAT, Start date: 07/15/12 16:41:00, Duration: 1 doses or times, Stop date: 07/15/12 17:40:00, Bolus Dose 07/15/20122011 Completed Bolus Dose influenza virus vaccine, 0.5 ml, Route: IM, Drug 2012 2012 Completed inactivated Form: INJ, Start date: 07/15/12 9:00:00, Stop date: 07/15/12 9:00:00 Insulin regular 1 unit, 0.01 mL, Route: 07/14/2012 2012 Discontinued SUB-Q, Drug form: SOLN, TID-Before Meals, Dosing Weight 82.273, kg, PRN Blood Glucose Results, Start date: 07/14/12 23:06:00, Duration: 30 day, Stop date: 08/13/12 23:05:00 Insulin regular 4 unit, 0.04 mL, Route: 07/14/2012 2012 Discontinued SUB-Q, Drug form: SOLN, TID-Before Meals, Dosing Weight 82.273, kg, PRN Blood Glucose Results, Start date: 07/14/12 23:06:00, Duration: 30 day, Stop date: 08/13/12 23:05:00 Insulin regular 3 unit, 0.03 mL, Route: 07/14/2012 2012 Discontinued SUB-Q, Drug form: SOLN, TID-Before Meals, Dosing Weight 82.273, kg, PRN Blood Glucose Results, Start date: 07/14/12 23:06:00, Duration: 30 day, Stop date: 08/13/12 23:05:00 Insulin regular 5 unit, 0.05 mL, Route: 07/14/2012 2012 Discontinued SUB-Q, Drug form: SOLN, TID-Before Meals, Dosing Weight 82.273, kg, PRN Blood Glucose Results, Start date: 07/14/12 23:06:00, Duration: 30 day, Stop date: 08/13/12 23:05:00 Insulin regular 2 unit, 0.02 mL, Route: 07/14/2012 2012 Discontinued SUB-Q, Drug form: SOLN, TID-Before Meals, Dosing Weight 82.273, kg, PRN Blood Glucose Results, Start date: 07/14/12 23:06:00, Duration: 30 day, Stop date: 08/13/12 23:05:00 nitroglycerin 0.4 mg 0.4 mg, 1 tab, Route: 07/14/2012 2012 Discontinued sublingual tablet SL, Drug form: TAB, Q5Min, Dosing Weight 88.182, kg, PRN Chest Pain, Start date: 07/14/12 17:50:00, Duration: 30 day, Stop date: 08/13/12 17:49:00 bisacodyl 10 mg, 1 supp, Route: 07/14/2012 2012 Discontinued NM, Drug form: SUPP, Daily, Dosing Weight 88.182, kg, PRN Constipation, Start date: 07/14/12 17:50:00, Duration: 30 day, Stop date: 08/13/12 17:49:00 Lopressor 5 mg, 5 mL, Route: IV, 2012 2012 Completed Drug form: INJ, ONCE, Start date: 07/15/12 16:26:00, Stop date: 07/15/12 16:26:00 Coreg 6.25 mg, 1 tab, Route: 2012 2012 Canceled PO, Drug form: TAB, Q12H, Dosing Weight 88.182, kg, hold for SBP <100 or HR <50, Start date: 07/15/12 21:00:00, Duration: 30 day, Stop date: 08/14/12 9:00:00 acetaminophen 650 mg, 2 tab, Route: 07/14/2012 2012 Discontinued PO, Drug form: TAB, Q6H, Dosing Weight 88.182, kg, PRN Pain, Start date: 07/14/12 17:49:00, Duration: 30 day, Stop date: 08/13/12 17:48:00 Vaughn 10/325 oral tablet 1 tab, Route: PO, Drug 07/14/2012 2012 Discontinued Form: TAB, Dosing Weight 88.182, kg, Q4H, PRN Pain Score 6-10, Start date: 07/14/12 17:48:00, Duration: 30 day, Stop date: 08/13/12 17:47:00 lisinopril 10 mg, 1 tab, Route: PO, 2012 2012 Discontinued Drug form: TAB, Daily, Dosing Weight 88.182, kg, Start date: 07/15/12 9:00:00, Duration: 30 day, Stop date: 08/13/12 9:00:00 Protonix 40 mg, 1 tab, Route: PO, 2012 2012 Discontinued Drug form: ECTAB, Before Dinner, Dosing Weight 88.182, kg, Start date: 07/15/12 16:30:00, Duration: 30 day, Stop date: 08/13/12 16:30:00 insulin glargine 15 unit, 0.15 mL, Route: 2012 2012 Discontinued SUB-Q, Drug form: INJ, Daily, Dosing Weight 88.182, kg, Start date: 07/15/12 9:00:00, Duration: 30 day, Stop date: 08/13/12 9:00:00 heparin 5000 units/mL 5,000 unit, 1 mL, Route: 2012 2012 Discontinued injectable solution SUB-Q, Drug form: INJ, Q8H, Dosing Weight 88.182, kg, Start date: 07/15/12 0:00:00, Duration: 30 day, Stop date: 08/13/12 16:00:00 influenza virus vaccine, 0.5 ml, Route: IM, Drug 2012 2012 Completed inactivated Form: INJ, Daily, Start date: 07/15/12 9:00:00, Duration: 1 doses or times, Stop date: 07/15/12 9:00:00 Dextrose 50% Syringe 25 gm, 50 mL, Route: 2012 2012 Discontinued IVP, Drug Form: INJ, Dosing Weight 88.182, kg, PRN, PRN Blood Glucose Results, Start date: 07/15/12 9:11:00, Duration: 30 day, Stop date: 08/14/12 9:10:00 senna 8.6 mg oral tablet 8.6 mg, 1 tab, Route: 2012 2012 Discontinued PO, Drug Form: TAB, Dosing Weight 88.182, kg, QNoon, Start date: 07/15/12 12:00:00, Duration: 30 day, Stop date: 08/13/12 12:00:00 docusate 100 mg, 1 cap, Route: 07/14/2012 2012 Discontinued PO, Drug form: CAP, Q12H, Dosing Weight 88.182, kg, Start date: 07/14/12 21:00:00, Duration: 30 day, Stop date: 08/13/12 9:00:00 clopidogrel 75 mg, 1 tab, Route: PO, 2012 2012 Discontinued Drug form: TAB, Daily, Dosing Weight 88.182, kg, Start date: 07/15/12 9:00:00, Duration: 30 day, Stop date: 08/13/12 9:00:00 citalopram 10 mg, 1 tab, Route: PO, 2012 2012 Discontinued Drug form: TAB, Daily, Dosing Weight 88.182, kg, Start date: 07/15/12 9:00:00, Duration: 30 day, Stop date: 08/13/12 9:00:00 Coreg 3.125 mg, 1 tab, Route: 07/14/2012 2012 Discontinued PO, Drug form: TAB, Q12H, Dosing Weight 88.182, kg, Start date: 07/14/12 21:00:00, Duration: 30 day, Stop date: 08/13/12 9:00:00 atorvastatin 80 mg, 1 tab, Route: PO, 2012 2012 Discontinued Drug form: TAB, QPM, Dosing Weight 88.182, kg, Start date: 07/15/12 17:00:00, Duration: 30 day, Stop date: 08/13/12 17:00:00 aspirin 325 mg tablet 325 mg, 1 tab, Route: 2012 2012 Discontinued PO, Drug form: TAB, Daily, Dosing Weight 88.182, kg, Start date: 07/15/12 9:00:00, Duration: 30 day, Stop date: 08/13/12 9:00:00 atorvastatin 10 mg oral 10 mg, 1 tab, PO, Daily, 2012 2012 Discontinued tablet 30 tab, Substitution Allowed, TAB atenolol 50 mg oral tablet 50 mg, 1 tab, PO, Daily, 2012 2012 Discontinued 30 tab, Substitution Allowed glimepiride 4 mg oral Substitution Allowed 2012 2012 Discontinued tablet hydrochlorothiazide-losart 1 tab, PO, Daily, 30 2012 2012 Discontinued an 25 mg-100 mg oral tab, Substitution tablet Allowed, Maintenance, TAB Dextrose 50% Syringe 12.5 gm, 25 mL, Route: 2012 2012 Discontinued IVP, Drug Form: INJ, Dosing Weight 88.182, kg, PRN, PRN Blood Glucose Results, Start date: 07/15/12 9:10:00, Duration: 30 day, Stop date: 08/14/12 9:09:00 Vaughn 10/325 oral tablet 1 tab, PO, Q4H, PRN, 90 2012 Suspended tab, Pain Score 6-10, Substitution Allowed, Maintenance, TAB aspirin 81 mg tablet, 81 mg, 1 tab, PO, Daily, 2012 2012 Discontinued chewable tab, Substitution Allowed, CHEWTAB amLODipine 5 mg oral 5 mg, 1 tab, PO, Daily, 2012 2012 Discontinued tablet 30 tab, Substitution Allowed, TAB lisinopril 30 mg oral Daily, Substitution 2012 2012 Discontinued tablet Allowed NovoLog Mix 70/30 FlexPen Substitution Allowed 2012 2012 Discontinued Protonix 40 mg oral 40 mg, 1 tab, PO, Before 2012 Suspended enteric coated tablet Dinner, 30 tab, Substitution Allowed, ECTAB lisinopril 10 mg oral 10 mg, 1 tab, PO, Daily, 2012 Suspended tablet 30 tab, Substitution Allowed, TAB insulin glargine 100 15 unit, 0.15 mL, SUB-Q, 2012 Suspended units/mL subcutaneous Daily, 1 mL, solution Substitution Allowed, SOLN Immunizations Vaccine Date Status influenza virus vaccine, inactivated 2012 Auth (Verified) Vital Signs Most recent to oldest 1 2 3 [Reference Range]: Height 165.10 cm (07/14/2012 22:58:00) Temperature Oral 99.1 DegF 98.5 DegF 98.5 DegF [96.4-99.1 DegF] (2012 15:30:00) (2012 05:06:00) (2012 04: 57:00) Systolic Blood Pressure 123 mmHg 136 mmHg 111 mmHg [90-140 mmHg] (2012 15:30:00) (2012 10:40:00) (2012 08:32: 00) Diastolic Blood Pressure 84 mmHg 83 mmHg 58 mmHg [60-90 mmHg] (2012 15:30:00) (2012 10:40:00) *LOW* (2012 08:32:00) Respiratory Rate [14-20 18 BRMIN 20 BRMIN 20 BRMIN BRMIN] (2012 15:30:00) (2012 05:06:00) (2012 04:57:00) Peripheral Pulse Rate 123 bpm 61 bpm 89 bpm [60-100 bpm] *HI* (2012 10:40:00) (2012 08:32:00) (2012 15:30:00) Weight 82.273 kg (07/14/2012 22:58:00) Results BEDSIDE GLUCOSE TESTING Most recent to [Reference 1 2 Range]: Gluc POC Lifscn [70-99 mg/dL] 172 mg/dL 1 125 mg/dL 2 *HI* *HI* (2012 11:25:00) (2012 05:51:00) Comment1 Notify RN/MD *NA* (2012 11:25:00) 1Interpretive Data: Upper Reportable Limit: 200 mg/dL.2Interpretive Data: Upper Reportable Limit: 200 mg/dL.URINALYSIS Most recent to [Reference Range]: 1 2 UA Turbidity [Clear] Clear (2012 06:06:00) UA Color [Yellow] Yellow *NA* (2012 06:06:00) UA pH [5.0-8.0] 5.0 (2012 06:06:00) UA Spec Grav [<=1.030] 1.011 (2012 06:06:00) UA Glucose [Negative mg/dL] Negative mg/dL *NA* (2012 06:06:00) UA Blood [Negative] Negative (2012 06:06:00) UA Ketones [Negative mg/dL] Negative mg/dL *NA* (2012 06:06:00) UA Protein [Negative mg/dL] Negative mg/dL (2012 06:06:00) UA Urobilinogen [0.1-1.0 mg/dL] <=1.0 mg/dL *NA* (2012 06:06:00) UA Bili [Negative] Negative *NA* (2012 06:06:00) UA Leuk Est [Negative] Negative (2012 06:06:00) UA Nitrite [Negative] Negative (2012 06:06:00) UA WBC [0-5 /HPF] <1 /HPF (2012 06:06:00) UA RBC [0-2 /HPF] 1 /HPF (2012 06:06:00) UA Bacteria [None Seen /HPF] Occasional /HPF *NA* (2012 06:06:00) UA Sq Epi [Few /LPF] Occasional /LPF *NA* (2012 06:06:00) UA Mucus [None Seen /LPF] Few /LPF *NA* (2012 06:06:00) CHEMISTRY Most recent to oldest [Reference Range]: 1 2 Sodium Lvl [135-145 mEq/L] 139 mEq/L (2012 06:06:00) Potassium Lvl [3.5-5.1 mEq/L] 4.2 mEq/L (2012 06:06:00) Chloride Lvl [95-109 mEq/L] 99 mEq/L (2012 06:06:00) CO2 [24-32 mEq/L] 30 mEq/L (2012 06:06:00) AGAP [10.0-20.0 mEq/L] 14.2 mEq/L (2012 06:06:00) Creatinine Lvl [0.5-1.4 mg/dL] 0.8 mg/dL (2012 06:06:00) BUN [7-22 mg/dL] 19 mg/dL (2012 06:06:00) B/C Ratio [6-25] 24 (2012 06:06:00) Glucose Lvl [70-99 mg/dL] 125 mg/dL 3 *HI* (2012 06:06:00) Total Protein [6.4-8.4 g/dL] 5.9 g/dL *LOW* (2012 06:06:00) Albumin Lvl [3.5-5.0 g/dL] 2.6 g/dL *LOW* (2012 06:06:00) Globulin [2.0-4.0 g/dL] 3.3 g/dL (2012 06:06:00) A/G Ratio [0.7-1.6] 0.8 (2012 06:06:00) Calcium Lvl [8.5-10.5 mg/dL] 8.8 mg/dL (2012 06:06:00) Phosphorus [2.5-4.5 mg/dL] 2.8 mg/dL (2012 06:06:00) Magnesium Lvl [1.8-2.4 mg/dL] 1.7 mg/dL *LOW* (2012 06:06:00) ALT [0-65 unit/L] 23 unit/L (2012 06:06:00) AST [0-37 unit/L] 32 unit/L (2012 06:06:00) Alk Phos [39-136 unit/L] 71 unit/L (2012 06:06:00) Bili Total [0.2-1.3 mg/dL] 0.6 mg/dL (2012 06:06:00) Total CK [12-191 unit/L] 86 unit/L (2012 16:51:00) CK MB [0.5-3.6 ng/mL] 2.4 ng/mL (2012 16:51:00) CK MB Index [0.0-2.5] 2.8 *HI* (2012 16:51:00) Troponin-T [0.000-0.100 ng/mL] 1.320 ng/mL 4 *CRIT* (2012 16:51:00) Troponin-I [0.00-0.40 ng/mL] 4.55 ng/mL 5 *CRIT* (2012 16:51:00) Hgb A1C 7.3 % 6 *NA* (2012 06:06:00) T4 Free [0.76-1.46 ng/dL] 1.58 ng/dL *HI* (2012 06:06:00) TSH [0.360-3.740 uIU/mL] 1.120 uIU/mL (2012 06:06:00) 3Interpretive Data: Adult reference range values reflect the clinical guidelines of the [place] [employer].4Result Comment: Critical Result(s) called to rachid ford at _2012 17:35:40 CDT by_mynor. Read back OK.5Result Comment: Critical Result(s) called to rachid de guzman at 2012 17:53:14 CDT by nk. Read back OK.6Interpretive Data: HbA1C% eAG(mg/dL) Interpretation 6.0 126 Very good control 6.5 140 Very good control 7.0 154 Good Control 7.5 169 Good Control 8.0 183 Marginal Control, take action to lower 8.5 197 Marginal Control, take action to lower 9.0 212 Poor Control, take action to lower 9.5 226 Poor Control, take action to lower 10.0 240 Poor Control, take action to lowerHEMATOLOGY Most recent to oldest [Reference Range]: 1 2 WBC [3.7-10.4 K/CMM] 5.8 K/CMM (2012 06:06:00) RBC [4.20-5.40 M/CMM] 3.59 M/CMM *LOW* (2012 06:06:00) Hgb [12.0-16.0 g/dL] 10.8 g/dL *LOW* (2012 06:06:00) Hct [36.0-48.0 %] 32.3 % *LOW* (2012 06:06:00) MCV [81.0-99.0 fL] 90.0 fL (2012 06:06:00) MCH [27.0-31.0 pg] 30.0 pg (2012 06:06:00) MCHC [32.0-36.0 g/dL] 33.3 g/dL (2012 06:06:00) RDW [11.5-14.5 %] 15.1 % *HI* (2012 06:06:00) Platelet [133-450 K/CMM] 184 K/CMM (2012 06:06:00) MPV [7.4-10.4 fL] 8.4 fL (2012 06:06:00) Segs [45.0-75.0 %] 68.8 % (2012 06:06:00) Lymphocytes [20.0-40.0 %] 18.3 % *LOW* (2012 06:06:00) Monocytes [2.0-12.0 %] 7.7 % (2012 06:06:00) Eosinophils [0.0-4.0 %] 4.7 % *HI* (2012 06:06:00) Basophils [0.0-1.0 %] 0.5 % (2012 06:06:00) Segs-Bands # [1.5-8.1 K/CMM] 4.0 K/CMM (2012 06:06:00) Lymphocytes # [1.0-5.5 K/CMM] 1.1 K/CMM (2012 06:06:00) Monocytes # [0.0-0.8 K/CMM] 0.5 K/CMM (2012 06:06:00) Eosinophils # [0.0-0.5 K/CMM] 0.3 K/CMM (2012 06:06:00) Basophils # [0.0-0.2 K/CMM] 0.0 K/CMM (2012 06:06:00) PT [12.0-14.7 seconds] 13.3 seconds (2012 06:06:00) INR [0.85-1.17] 0.99 7 (2012 06:06:00) PTT [22.9-35.8 seconds] 36.8 seconds 8 *HI* (2012 06:06:00) 7Interpretive Data: RECOMMENDED RANGES FOR PROTIME INR: 2.0-3.0 for most medical and surgical thromboembolic states. 2.5-3.5 for artificial heart valves and recurrent embolism. INR SHOULD BE USED ONLY FOR PATIENTS ON STABLE ANTICOAGULANT THERAPY.8Interpretive Data: Heparin Therapeutic Range: 57 - 92 SecondsIMMUNOLOGY Most recent to oldest [Reference Range]: 1 2 Prealbumin [18.0-45.0 mg/dL] 12.1 mg/dL *LOW* (2012 06:06:00) Microbiology Reports PROCEDURE:Culture: Urine STATUS: In Progress BODY SITE: COLLECTED DATE/TIME: 2012 06:06:00 SOURCE: Urine, Catheterized FREE TEXT SOURCE: PRELIMINARY REPORTS Preliminary [id number]/cfu/ml Gram Negative Rods , Identification And Sensitivity Pending
--- OUTSIDE RECORDS SUMMARY | 2018-04-25 10:59 | XMS REPORT | CCD ---
:1935 Author Organization [facility] Care Team Providers Name Role Phone Morgan Wagner Blakely Referring Provider Pedrito Bustillo Consulting Provider Allergies, Adverse Reactions, Alerts Substance Reaction Status HYDROcodone-Pseudoephedrine HCl Active Problem List Condition Effective Dates Status CAD - Coronary artery disease Active DM - Diabetes mellitus Active Laminectomy Active O/E - pain Active Stented artery Active Medications Medication Instructions Start Date End Date Status Chloraseptic 1.4% 1 spray, Route: MUCOUS 07/12/2012 07/14/2012 Discontinued spray MEM, Q4H, Drug form: SPRY PRN Sore Throat, Start date: 07/12/12 1:37:00, Stop date: 08/11/12 1:36:00 lactulose 10 gm, 15 ml, Route: 07/11/2012 07/14/2012 Discontinued PO, Drug Form: SYRP, Dosing Weight 88.182, kg, Daily, PRN Constipation, Start date: 07/11/12 12:02:00, Duration: 30 day, Stop date: 08/10/12 12:01:00 Benadryl 25 mg, 1 cap, Route: 07/12/2012 07/14/2012 Discontinued PO, Drug form: CAP, TID, Dosing Weight 88.182, kg, PRN Itching, Start date: 07/12/12 11:50:00, Duration: 30 day, Stop date: 08/11/12 11:49:00 glimepiride 4 mg oral 4 mg, 1 tab, PO, BID, 07/06/2012 07/14/2012 Discontinued tablet 30 tab, Substitution Allowed, TAB Coreg 3.125 mg, 1 tab, 07/12/2012 07/14/2012 Discontinued Route: PO, Drug form: TAB, Q12H, Dosing Weight 88.182, kg, Start date: 07/12/12 10:30:00, Duration: 30 day, Stop date: 08/11/12 6:00:00 citalopram 10 mg, 1 tab, Route: 07/10/2012 07/14/2012 Discontinued PO, Drug form: TAB, Daily, Dosing Weight 88.182, kg, Start date: 07/10/12 9:00:00, Duration: 30 day, Stop date: 08/08/12 9:00:00 aspirin 325 mg tablet 325 mg, 1 tab, Route: 07/10/2012 07/14/2012 Discontinued PO, Drug form: TAB, Daily, Dosing Weight 88.182, kg, Start date: 07/10/12 9:00:00, Duration: 30 day, Stop date: 08/08/12 6:00:00 Protonix 40 mg, 1 tab, Route: 07/13/2012 07/14/2012 Discontinued PO, Drug form: ECTAB, Before Dinner, Dosing Weight 88.182, kg, Start date: 07/13/12 16:30:00, Duration: 30 day, Stop date: 08/11/12 16:30:00 lisinopril 10 mg, 1 tab, Route: 07/13/2012 07/14/2012 Discontinued PO, Drug form: TAB, Daily, Dosing Weight 88.182, kg, Start date: 07/13/12 9:00:00, Duration: 30 day, Stop date: 08/11/12 9:00:00 cefazolin 2 gm, Route: IVPB, 07/07/2012 07/07/2012 Completed ONCE, Dosing Weight 88.182, kg, Start date: 07/07/12 12:23:00, Duration: 1 doses or times, Stop date: 07/07/12 12:23:00 hydrochlorothiazide-l 1 tab, PO, Daily, 30 07/06/2012 07/14/2012 Discontinued osartan 25 mg-100 mg tab, Substitution oral tablet Allowed, Maintenance, TAB metoprolol tartrate 25 mg, 1 tab, Route: 07/10/2012 07/09/2012 Canceled PO, Drug form: TAB, Q6H, Dosing Weight 88.182, kg, Start date: 07/10/12 0:00:00, Duration: 30 day, Stop date: 08/08/12 18:00:00 influenza virus 0.5 ml, Route: IM, 2012 2012 Completed vaccine, inactivated Drug Form: INJ, Start date: 07/15/12 9:00:00, Stop date: 07/15/12 9:00:00 Sodium Chloride 0.9% 250 mL, Rate: 250 07/12/2012 07/12/2012 Completed (Bolus) IV 250 mL ml/hr, Infuse over: 1 hr, Route: IV, kg, Total Volume: 250, Bolus Dose, Priority: STAT, Start date: 07/12/12 11:54:00, Duration: 1 doses or times, Stop date: 07/12/12 12:53:00 calcium gluconate + 2,000 mg, 20 mL, 07/12/2012 07/12/2012 Completed Sodium Chloride 0.9% Route: IVPB, ONCE, IV 80 mL Dosing Weight 88.182, kg, Start date: 07/12/12 7:18:00, Stop date: 07/12/12 7:18:00 cefazolin (SCIP) 1 gm, Route: IVPB, 07/07/2012 07/08/2012 Completed Drug form: PDR/INJ, ABXQ8H, Dosing Weight 88.182, kg, Start date: 07/07/12 20:30:00, Duration: 3 doses or times, Stop date: 07/08/12 12:30:00 atenolol 100 mg oral 100 mg, 1 tab, Route: 07/10/2012 07/12/2012 Discontinued tablet PO, Drug form: TAB, Daily, Dosing Weight 88.182, kg, Start date: 07/10/12 9:00:00, Duration: 30 day, Stop date: 08/08/12 9:00:00 lisinopril 10 mg, 1 tab, Route: 07/10/2012 07/10/2012 Completed PO, Drug form: TAB, ONCE, Dosing Weight 88.182, kg, Start date: 07/10/12 4:10:00, Stop date: 07/10/12 4:10:00 Colace 50 mg oral 50 mg, 1 cap, Route: 07/12/2012 07/14/2012 Discontinued capsule PO, Drug form: CAP, BID, Dosing Weight 88.182, kg, PRN Constipation, Start date: 07/12/12 9:31:00, Duration: 30 day, Stop date: 08/11/12 9:30:00 Dextrose 50% Syringe 12.5 gm, 25 mL, Route: 07/10/2012 07/14/2012 Discontinued IVP, Drug Form: INJ, Dosing Weight 88.182, kg, PRN, PRN Blood Glucose Results, Start date: 07/10/12 6:32:00, Duration: 30 day, Stop date: 08/09/12 6:31:00 insulin glargine 15 unit, 0.15 mL, 07/10/2012 07/14/2012 Discontinued Route: SUB-Q, Drug form: INJ, Daily, Dosing Weight 88.182, kg, Start date: 07/10/12 9:00:00, Duration: 30 day, Stop date: 08/08/12 9:00:00 glucagon 1 mg, Route: IM, Drug 07/10/2012 07/14/2012 Discontinued form: PDR/INJ, PRN, Dosing Weight 88.182, kg, PRN Blood Glucose Results, Start date: 07/10/12 6:32:00, Duration: 30 day, Stop date: 08/09/12 6:31:00 Dextrose 50% Syringe 25 gm, 50 mL, Route: 07/10/2012 07/14/2012 Discontinued IVP, Drug Form: INJ, Dosing Weight 88.182, kg, PRN, PRN Blood Glucose Results, Start date: 07/10/12 6:32:00, Duration: 30 day, Stop date: 08/09/12 6:31:00 cefazolin 1 gm, Route: IVPB, 07/07/2012 07/07/2012 Completed ONCE, Dosing Weight 88.182, kg, Start date: 07/07/12 8:26:00, Duration: 1 doses or times, Stop date: 07/07/12 8:26:00 normal saline 0.9% IV 1,000 mL, Rate: 120 07/11/2012 07/13/2012 Discontinued 1,000 mL ml/hr, Infuse over: 8.3 hr, Route: IV, kg, Total Volume: 1,000, Start date: 07/11/12 9:28:00, Stop date: 08/10/12 9:27:00 lisinopril 30 mg oral 30 mg, 1 tab, PO, 07/06/2012 07/14/2012 Discontinued tablet Daily, 30 tab, Substitution Allowed, TAB heparin 5000 units/mL 5,000 unit, 1 mL, 07/11/2012 07/14/2012 Discontinued injectable solution Route: SUB-Q, Drug form: INJ, Q8H, Dosing Weight 88.182, kg, Start date: 07/11/12 16:00:00, Duration: 30 day, Stop date: 08/10/12 8:00:00 lisinopril 10 mg, 1 tab, Route: 07/09/2012 07/09/2012 Completed PO, Drug form: TAB, ONCE, Dosing Weight 88.182, kg, Start date: 07/09/12 21:02:00, Stop date: 07/09/12 21:02:00 atenolol 50 mg oral 50 mg, 1 tab, Route: 07/09/2012 07/09/2012 Completed tablet PO, Drug form: TAB, ONCE, Dosing Weight 88.182, kg, Start date: 07/09/12 21:03:00, Stop date: 07/09/12 21:03:00 normal saline 0.9% IV 250 mL, Rate: 250 07/11/2012 07/11/2012 Completed 250 mL ml/hr, Infuse over: 1 hr, Route: IV, kg, Total Volume: 250, Start date: 07/11/12 11:59:00, Duration: 1 doses or times, Stop date: 07/11/12 12:58:00 aspirin 81 mg tablet, 81 mg, 1 tab, PO, 07/06/2012 07/14/2012 Discontinued enteric coated Daily, 0 tab, Substitution Allowed, ECTAB metoprolol 5 mg/5 ml 5 mg, 5 mL, Route: IV, 07/13/2012 07/13/2012 Completed INJ Drug form: INJ, ONCE, Dosing Weight 88.182, kg, Start date: 07/13/12 5:26:00, Stop date: 07/13/12 5:26:00 magnesium oxide 400 mg, 1 tab, Route: 07/13/2012 07/13/2012 Completed PO, Drug form: TAB, ONCE, Dosing Weight 88.182, kg, Start date: 07/13/12 5:24:00, Stop date: 07/13/12 5:24:00 atorvastatin 10 mg 10 mg, 1 tab, PO, 07/07/2012 07/14/2012 Discontinued oral tablet Daily, 30 tab, Substitution Allowed, TAB magnesium sulfate 2 gm, 50 mL, Route: IVPB, Drug form: INJ, Q2H, Dosing Weight 88.182, kg, Start date: 07/10/12 8:00:00, Duration: 3 doses or times, Stop date: 07/10/12 12:00:00, For Mg=1.0 - 1.4 mg/dL 07/10/2012 07/10/2012 Completed For Mg=1.0 - 1.4 mg/dL nitroglycerin SL Tab 0.4 mg, 1 tab, Route: 07/09/2012 07/14/2012 Discontinued SL, Drug form: TAB, Q5Min, Dosing Weight 88.182, kg, PRN Chest Pain, Start date: 07/09/12 20:20:00, Duration: 3 doses or times, Stop date: Limited # of times metoprolol 5 mg/5 ml 5 mg, 5 mL, Route: IV, 07/14/2012 07/14/2012 Completed INJ Drug form: INJ, ONCE, Dosing Weight 88.182, kg, Start date: 07/14/12 6:26:00, Stop date: 07/14/12 6:26:00 NovoLog Mix 70/30 Substitution Allowed 07/06/2012 07/14/2012 Discontinued Saline Flush 0.9% 5 ml, Route: IVP, Drug 07/07/2012 07/14/2012 Discontinued Form: INJ, Dosing Weight 88.182, kg, PRN, PRN Line Flush, Start date: 07/07/12 13:30:00, Duration: 30 day, Stop date: 08/06/12 13:29:00 Saline Flush 0.9% 5 ml, Route: IVP, Drug 07/07/2012 07/14/2012 Discontinued Form: INJ, Dosing Weight 88.182, kg, Q12H, Start date: 07/07/12 21:00:00, Duration: 30 day, Stop date: 08/06/12 9:00:00 cefazolin (SCIP) 1 gm, Route: IVPB, 07/07/2012 07/07/2012 Discontinued Drug form: PDR/INJ, ABXQ8H, Dosing Weight 88.182, kg, Start date: 07/07/12 16:00:00, Duration: 3 doses or times, Stop date: 07/08/12 8:00:00 ondansetron 4 mg, 2 mL, Route: 07/07/2012 07/10/2012 Discontinued IVP, Drug form: INJ, Q8H, Dosing Weight 88.182, kg, PRN Nausea & Vomiting, Start date: 07/07/12 13:30:00, Duration: 30 day, Stop date: 08/06/12 13:29:00 tramadol 50 mg, 1 tab, Route: 07/07/2012 07/09/2012 Discontinued PO, Drug form: TAB, Q4H, Dosing Weight 88.182, kg, PRN Pain Score 1-3, Start date: 07/07/12 13:30:00, Duration: 30 day, Stop date: 08/06/12 13:29:00 morphine Sulfate 2 mg, 0.5 mL, Route: 07/07/2012 07/09/2012 Discontinued IVP, Drug form: INJ, Q1H, Dosing Weight 88.182, kg, PRN Pain Score 7-10, Start date: 07/07/12 13:30:00, Duration: 30 day, Stop date: 08/06/12 13:29:00 bisacodyl 10 mg, 1 supp, Route: 07/07/2012 07/14/2012 Discontinued UT, Drug form: SUPP, Daily, Dosing Weight 88.182, kg, PRN Constipation, Start date: 07/07/12 13:30:00, Duration: 30 day, Stop date: 08/06/12 13:29:00 senna 8.6 mg, 1 tab, Route: 07/07/2012 07/14/2012 Discontinued PO, Drug Form: TAB, Dosing Weight 88.182, kg, Q12H, Start date: 07/07/12 21:00:00, Duration: 30 day, Stop date: 08/06/12 9:00:00 docusate sodium 100 100 mg, 1 cap, Route: 07/07/2012 07/14/2012 Discontinued mg oral capsule PO, Drug form: CAP, Q12H, Dosing Weight 88.182, kg, Start date: 07/07/12 21:00:00, Duration: 30 day, Stop date: 08/06/12 9:00:00 acetaminophen-hydroco 2 tab, Route: PO, Drug 07/07/2012 07/12/2012 Discontinued done 325 mg-10 mg Form: TAB, Dosing oral tablet Weight 88.182, kg, Q4H, PRN Pain Score 7-10, Start date: 07/07/12 13:30:00, Duration: 30 day, Stop date: 08/06/12 13:29:00 acetaminophen-hydroco 1 tab, Route: PO, Drug 07/07/2012 07/14/2012 Discontinued done 325 mg-10 mg Form: TAB, Dosing oral tablet Weight 88.182, kg, Q4H, PRN Pain Score 4-6, Start date: 07/07/12 13:30:00, Duration: 30 day, Stop date: 08/06/12 13:29:00 acetaminophen 650 mg, 20.3 mL, 07/07/2012 07/09/2012 Discontinued Route: PO, Drug form: LIQ, Q4H, Dosing Weight 88.182, kg, PRN Pain/Fever, Start date: 07/07/12 13:30:00, Duration: 30 day, Stop date: 08/06/12 13:29:00 Sodium Chloride 0.9% 1,000 mL, Rate: 50 07/07/2012 07/09/2012 Discontinued IV 1,000 mL ml/hr, Infuse over: 20 hr, Route: IV, kg, Total Volume: 1,000, Start date: 07/07/12 13:30:00, Duration: 30 day, Stop date: 08/06/12 13:29:00 Sodium Chloride 0.9% 250 mL, Rate: 250 07/12/2012 07/12/2012 Deleted (Bolus) IV 250 mL ml/hr, Infuse over: 1 hr, Route: IV, kg, Total Volume: 250, Bolus Dose, Priority: STAT, Start date: 07/12/12 9:28:00, Duration: 1 doses or times, Stop date: 07/12/12 10:27:00 acetaminophen 650 mg, 20.3 mL, 07/09/2012 07/14/2012 Discontinued Route: PO, Drug form: LIQ, Q8H, Dosing Weight 88.182, kg, PRN Pain/Fever, Start date: 07/09/12 16:54:00, Duration: 30 day, Stop date: 08/08/12 16:53:00 magnesium sulfate 2 gm, 50 mL, Route: IVPB, Drug form: INJ, ONCE, Dosing Weight 88.182, kg, Start date: 07/13/12 7:19:00, Duration: 1 doses or times, Stop date: 07/13/12 7:19:00, For Mg=1.8 - 2 mg/dL 07/13/2012 07/13/2012 Completed For Mg=1.8 - 2 mg/dL clopidogrel 75 mg 75 mg, 1 tab, PO, 07/14/2012 2012 Discontinued oral tablet Daily, 30 tab, Substitution Allowed, TAB Protonix 40 mg oral 40 mg, 1 tab, PO, 07/14/2012 2012 Discontinued enteric coated tablet Before Dinner, 30 tab, Substitution Allowed, ECTAB insulin regular human 7 unit, 0.07 mL, 07/14/2012 2012 Discontinued recombinant 100 SUB-Q, PRN, PRN, 1 mL, units/mL injectable Abnormal Lab Result, solution Substitution Allowed, SOLN insulin regular human 5 unit, 0.05 mL, 07/14/2012 2012 Discontinued recombinant 100 SUB-Q, PRN, PRN, 1 mL, units/mL injectable Abnormal Lab Result, solution Substitution Allowed, SOLN cefazolin 1 gm, Route: IVPB, 07/07/2012 07/07/2012 Completed Drug form: PDR/INJ, ONCALL, Start date: 07/07/12 7:00:00, Duration: 1 day, Stop date: 07/08/12 6:59:00 insulin glargine 100 15 unit, 0.15 mL, 07/14/2012 2012 Discontinued units/mL subcutaneous SUB-Q, Daily, 1 mL, solution Substitution Allowed, SOLN insulin regular human 3 unit, 0.03 mL, 07/14/2012 2012 Discontinued recombinant 100 SUB-Q, PRN, PRN, 1 mL, units/mL injectable Abnormal Lab Result, solution Substitution Allowed, SOLN ondansetron 4 mg, 2 mL, Route: 07/07/2012 07/07/2012 Discontinued IVP, Drug form: INJ, ONCE, Dosing Weight 88.182, kg, PRN Nausea & Vomiting, Start date: 07/07/12 13:36:00 labetalol 5 mg, Route: IVP, 07/07/2012 07/07/2012 Discontinued Q5Min, Dosing Weight 88.182, kg, PRN Elevated BP, Start date: 07/07/12 13:36:00, Duration: 5 doses or times, Stop date: Limited # of times hydrALAZINE 5 mg, 0.25 mL, Route: 07/07/2012 07/07/2012 Discontinued IVP, Drug form: INJ, Q5Min, Dosing Weight 88.182, kg, PRN Elevated BP, Start date: 07/07/12 13:36:00, Duration: 4 doses or times, Stop date: 07/08/12 0:00:00 flumazenil 0.2 mg, 2 mL, Route: 07/07/2012 07/07/2012 Discontinued IVP, Drug form: INJ, PRN, Dosing Weight 88.182, kg, PRN Benzodiazepine Reversal, Initial dose, Start date: 07/07/12 13:36:00, Duration: 30 day, Stop date: 08/06/12 13:35:00 naloxone 0.04 mg, 0.1 mL, 07/07/2012 07/07/2012 Discontinued Route: IVP, Drug form: INJ, Q2MIN, Dosing Weight 88.182, kg, PRN Narcotic Reversal, Start date: 07/07/12 13:36:00, Duration: 8 doses or times, Stop date: 07/08/12 0:00:00 hydromorphone 0.5 mg, Route: IVP, 07/07/2012 07/07/2012 Discontinued Q5Min, Dosing Weight 88.182, kg, PRN Pain Score 4-6, Start date: 07/07/12 13:36:00, Duration: 5 doses or times, Stop date: Limited # of times amLODipine 5 mg, PO, Daily, 07/07/2012 07/14/2012 Discontinued Substitution Allowed magnesium sulfate 2 gm, 50 mL, Route: IVPB, Drug form: INJ, Q2H, Dosing Weight 88.182, kg, Start date: 07/14/12 14:00:00, Duration: 2 doses or times, Stop date: 07/14/12 16:00:00, For Mg=1.5 - 1.7 mg/dL 07/14/2012 07/14/2012 Completed For Mg=1.5 - 1.7 mg/dL heparin 5000 units/mL See Instructions, 5000 SUB-Q Q8H, 1 vial, Substitution Allowed, SOLN 07/14/2012 2012 Discontinued injectable solution 5000 SUB-Q Q8H Coreg 3.125 mg oral 3.125 mg, 1 tab, PO, 07/14/2012 2012 Discontinued tablet Q12H, 60 tab, Substitution Allowed, TAB lisinopril 10 mg oral 10 mg, 1 tab, PO, 07/14/2012 2012 Discontinued tablet Daily, 30 tab, Substitution Allowed, TAB citalopram 10 mg oral 10 mg, 1 tab, PO, 07/14/2012 2012 Discontinued tablet Daily, 30 tab, Substitution Allowed, TAB atorvastatin 80 mg 80 mg, 1 tab, PO, QPM, 07/14/2012 2012 Discontinued oral tablet 30 tab, Substitution Allowed, TAB Dextrose 50% Syringe 25 gm, 50 mL, Route: 07/08/2012 07/14/2012 Discontinued IVP, Drug Form: INJ, Dosing Weight 88.182, kg, PRN, PRN Abnormal Lab Result, Start date: 07/08/12 21:55:00, Duration: 30 day, Stop date: 08/07/12 21:54:00 Dextrose 50% Syringe 6.25 gm, 12.5 mL, 07/08/2012 07/14/2012 Discontinued Route: IVP, Drug Form: INJ, Dosing Weight 88.182, kg, PRN, PRN Abnormal Lab Result, Start date: 07/08/12 21:55:00, Duration: 30 day, Stop date: 08/07/12 21:54:00 Dextrose 50% Syringe 12.5 gm, 25 mL, Route: 07/08/2012 07/14/2012 Discontinued IVP, Drug Form: INJ, Dosing Weight 88.182, kg, PRN, PRN Abnormal Lab Result, Start date: 07/08/12 21:55:00, Duration: 30 day, Stop date: 08/07/12 21:54:00 insulin regular human 3 unit, 0.03 mL, 07/08/2012 07/14/2012 Discontinued recombinant 100 Route: SUB-Q, Drug units/mL injectable form: SOLN, PRN, solution Dosing Weight 88.182, kg, PRN Abnormal Lab Result, Start date: 07/08/12 21:55:00, Duration: 30 day, Stop date: 08/07/12 21:54:00 insulin regular human 5 unit, 0.05 mL, 07/08/2012 07/14/2012 Discontinued recombinant 100 Route: SUB-Q, Drug units/mL injectable form: SOLN, PRN, solution Dosing Weight 88.182, kg, PRN Abnormal Lab Result, Start date: 07/08/12 21:55:00, Duration: 30 day, Stop date: 08/07/12 21:54:00 insulin regular human 7 unit, 0.07 mL, 07/08/2012 07/14/2012 Discontinued recombinant 100 Route: SUB-Q, Drug units/mL injectable form: SOLN, PRN, solution Dosing Weight 88.182, kg, PRN Abnormal Lab Result, Start date: 07/08/12 21:55:00, Duration: 30 day, Stop date: 08/07/12 21:54:00 aspirin 325 mg tablet 325 mg, 1 tab, PO, 07/14/2012 2012 Discontinued Daily, 30 tab, Substitution Allowed, TAB Saline Flush 0.9% 5 ml, Route: IVP, Drug 07/09/2012 07/09/2012 Discontinued Form: INJ, Dosing Weight 88.182, kg, PRN, PRN Line Flush, Start date: 07/09/12 19:20:00, Duration: 30 day, Stop date: 08/08/12 19:19:00 Saline Flush 0.9% 5 ml, Route: IVP, Drug 07/09/2012 07/09/2012 Discontinued Form: INJ, Dosing Weight 88.182, kg, Q12H, Start date: 07/09/12 21:00:00, Duration: 30 day, Stop date: 08/08/12 9:00:00 nitroglycerin SL Tab 0.4 mg, 1 tab, Route: 07/09/2012 07/09/2012 Discontinued SL, Drug form: TAB, Q5Min, Dosing Weight 88.182, kg, PRN Chest Pain, Start date: 07/09/12 19:20:00, Duration: 3 doses or times, Stop date: 08/09/12 0:00:00 aspirin 325 mg tablet 325 mg, 4.01 tab, 07/09/2012 07/09/2012 Completed Route: PO, Drug form: CHEWTAB, ONCE, Dosing Weight 88.182, kg, Start date: 07/09/12 19:20:00, Stop date: 07/09/12 19:20:00 famotidine 20 mg, 1 tab, Route: 07/09/2012 07/10/2012 Discontinued PO, Drug form: TAB, Q12H, Dosing Weight 88.182, kg, Start date: 07/09/12 21:00:00, Duration: 30 day, Stop date: 08/08/12 9:00:00 clopidogrel 75 mg, 1 tab, Route: 07/10/2012 07/14/2012 Discontinued PO, Drug form: TAB, Daily, Dosing Weight 88.182, kg, Start date: 07/10/12 9:00:00, Duration: 30 day, Stop date: 08/08/12 6:00:00 atorvastatin 80 mg, 1 tab, Route: 07/10/2012 07/14/2012 Discontinued PO, Drug form: TAB, QPM, Dosing Weight 88.182, kg, Start date: 07/10/12 17:00:00, Duration: 30 day, Stop date: 08/08/12 17:00:00 morphine Sulfate 1 mg, Route: IVP, 07/09/2012 07/10/2012 Completed ONCE, Dosing Weight 88.182, kg, Start date: 07/09/12 23:59:00, Stop date: 07/09/12 23:59:00 Percocet 10/325 oral 2 tab, Route: PO, Drug 07/07/2012 07/08/2012 Voided With Results tablet Form: TAB, Dosing Weight 88.182, kg, Q4H, PRN Pain, Start date: 07/07/12 20:03:00, Duration: 30 day, Stop date: 08/06/12 20:02:00 atorvastatin 80 mg, Route: PO, Drug 07/10/2012 07/09/2012 Canceled form: TAB, QPM, Dosing Weight 88.182, kg, Start date: 07/10/12 17:00:00, Duration: 30 day, Stop date: 08/08/12 17:00:00 Cardene 40 mg in NS 40 mg, 200 mL, Rate: 07/10/2012 07/11/2012 Discontinued 200 ml IV 40 mg Titrate, Dosing Weight 88.182, kg, Route: IV, Total Volume: 200 mL, Duration: 30 day, Stop date: 08/09/12 7:07:00, Replace Every: 24 hr morphine Sulfate 2 mg, 0.5 mL, Route: 07/10/2012 07/14/2012 Discontinued IVP, Drug form: INJ, Q3H, Dosing Weight 88.182, kg, PRN Pain, Start date: 07/10/12 7:33:00, Stop date: 08/09/12 7:32:00 calcium gluconate + 1,000 mg, 10 mL, Route: IVPB, ONCE, Dosing Weight 88.182, kg, Start date: 07/13/12 7:18:00, Duration: 1 doses or times, Stop date: 7:18:00, For Ionized Ca=1 - 1.03 mmol/L or Corrected Ca=8 - 8.5mg/dL 201107/13/2012 Completed Sodium Chloride 0.9% For Ionized Ca=1 - 1.03 mmol/L or Corrected Ca=8 - 8.5mg/ dL IV 50 mL lisinopril 10 mg, 1 tab, Route: 07/10/2012 07/10/2012 Canceled PO, Drug form: TAB, Daily, Dosing Weight 88.182, kg, Start date: 07/10/12 9:00:00, Duration: 30 day, Stop date: 08/08/12 9:00:00 morphine Sulfate 2 mg, 0.5 mL, Route: 07/10/2012 07/10/2012 Completed IVP, Drug form: INJ, ONCE, Dosing Weight 88.182, kg, Start date: 07/10/12 2:35:00, Stop date: 07/10/12 2:35:00 ondansetron 4 mg, 2 mL, Route: 07/10/2012 07/14/2012 Discontinued IVP, Drug form: INJ, Q4H, Dosing Weight 88.182, kg, PRN Nausea & Vomiting, Start date: 07/10/12 13:21:00, Duration: 30 day, Stop date: 08/09/12 13:20:00 Protonix 40 mg, Route: IVP, 07/10/2012 07/13/2012 Discontinued Drug form: INJ, Before Dinner, Dosing Weight 88.182, kg, Patient is NPO, Start date: 07/10/12 16:30:00, Duration: 30 day, Stop date: 08/08/12 16:30:00 Procardia XL 60 mg, 1 tab, Route: 07/10/2012 07/10/2012 Completed PO, Drug form: ERTAB, ONCE, Dosing Weight 88.182, kg, Start date: 07/10/12 4:02:00, Stop date: 07/10/12 4:02:00 acetaminophen-oxycodo 1 tab, Route: PO, Drug 07/08/2012 07/14/2012 Discontinued ne 325 mg-5 mg oral Form: TAB, Q4H, PRN tablet Pain Score 6-10, Start date: 07/08/12 21:03:00, Stop date: 08/07/12 21:02:00 labetalol 10 mg, 2 mL, Route: 07/09/2012 07/10/2012 Completed IVP, Drug form: INJ, Q15Min, Dosing Weight 88.182, kg, PRN Hypertension, Start date: 07/09/12 16:21:00, Duration: 3 doses or times, Stop date: Limited # of times morphine Sulfate 2 mg, Route: IVP, 07/10/2012 07/10/2012 Completed ONCE, Dosing Weight 88.182, kg, Start date: 07/10/12 7:44:00, Stop date: 07/10/12 7:44:00 Celebrex 200 mg oral 400 mg, 2 cap, PO, 07/06/2012 2012 Discontinued capsule Daily, 30 cap, Substitution Allowed, CAP gabapentin 100 mg 200 mg, 2 cap, PO, 07/06/2012 2012 Discontinued oral capsule TID, 240 cap, Substitution Allowed amLODipine 5 mg, 1 tab, Route: 07/10/2012 07/12/2012 Discontinued PO, Drug form: TAB, Daily, Dosing Weight 88.182, kg, Start date: 07/10/12 6:14:00, Duration: 30 day, Stop date: 08/08/12 9:00:00 atenolol 100 mg oral 100 mg, 1 tab, PO, 07/06/2012 07/14/2012 Discontinued tablet Daily, 30 tab, Substitution Allowed citalopram 10 mg oral 10 mg, 1 tab, PO, 07/06/2012 2012 Discontinued tablet Daily, 30 tab, Substitution Allowed, TAB niCARdipine 40 mg in 40 mg, 200 mL, Rate: 07/10/2012 07/10/2012 Discontinued NS 200 ml IV 40 mg Titrate, Dosing Weight 88.182, kg, Route: IV, Total Volume: 200 mL, Duration: 30 day, Stop date: 08/09/12 7:14:00, Replace Every: 24 hr lisinopril 30 mg, 3 tab, Route: 07/10/2012 07/12/2012 Discontinued PO, Drug form: TAB, Daily, Dosing Weight 88.182, kg, Start date: 07/10/12 9:00:00, Duration: 30 day, Stop date: 08/08/12 9:00:00 Integrilin 75 mg in 75 mg, 100 mL, Rate: 07/10/2012 07/11/2012 Discontinued 100 ml premix IV 75 Titrate, Dosing Weight mg 88.182, kg, Route: IV, Total Volume: 100 mL, Start date: 07/10/12 10:43:00, Duration: 2 day, Stop date: 07/12/12 10:42:00, Replace Every: 24 hr Immunizations Vaccine Date Status influenza virus vaccine, inactivated 2012 Auth (Verified) Vital Signs Most recent to oldest 1 2 3 [Reference Range]: Height 162.56 cm 162.56 cm 162.56 cm (07/07/2012 05:53:00) (07/06/2012 15:53:00) (07/06/2012 14:00:00) Temperature Oral 98.4 DegF 98.8 DegF 98.6 DegF [96.4-99.1 DegF] (07/14/2012 19:58:00) (07/14/2012 16:00:00) (07/14/2012 07: 00:00) Systolic Blood Pressure 108 mmHg 122 mmHg 132 mmHg [90-140 mmHg] (07/14/2012 22:43:00) (07/14/2012 20:00:00) (07/14/2012 18:00: 00) Diastolic Blood Pressure 55 mmHg 55 mmHg 74 mmHg [60-90 mmHg] *LOW* *LOW* (07/14/2012 18:00:00) (07/14/2012 22:43:00) (07/14/2012 20:00:00) Respiratory Rate [14-20 18 BRMIN 19 BRMIN 17 BRMIN BRMIN] (07/13/2012 16:00:00) (07/13/2012 15:00:00) (07/13/2012 14:30:00) Peripheral Pulse Rate 98 bpm 99 bpm 80 bpm [60-100 bpm] (07/09/2012 16:00:00) (07/09/2012 13:00:00) (07/09/2012 08:00: 00) Weight 88.182 kg 88.182 kg 88.182 kg (07/07/2012 05:53:00) (07/06/2012 15:53:00) (07/06/2012 14:00:00) Results BEDSIDE GLUCOSE TESTING Most recent to [facility] 1 2 3 [Reference Range]: Gluc POC [facility] [70-99 171 mg/dL 1 104 mg/dL 2 171 mg/dL 3 mg/dL] *HI* *HI* *HI* (07/14/2012 21:11:00) (07/14/2012 16:26:00) (07/14/2012 11:31:00) Comment1 Notify RN/MD Notify RN/MD Notify RN/MD *NA* *NA* *NA* (07/14/2012 21:11:00) (07/14/2012 11:31:00) (07/14/2012 06:16:00) Comment2 Notify RN/MD *NA* (07/09/2012 16:02:00) 1Interpretive Data: Upper Reportable Limit: 200 mg/dL.2Interpretive Data: Upper Reportable Limit: 200 mg/dL.3Interpretive Data: Upper Reportable Limit: 200 mg/dL.BLOOD BANK RESULTS Most recent to [facility] [Reference 1 2 3 Range]: ABO/Rh O NEG O NEG *Unknown* *Unknown* (07/11/2012 15:15:00) (07/07/2012 06:10:00) Antibody Scrn Negative Negative (07/11/2012 15:15:00) (07/07/2012 06:10:00) Platelet product Product available (07/09/2012 07:43:00) RBC product Product available (07/11/2012 12:54:00) CHEMISTRY Most recent to oldest 1 2 3 [Reference Range]: Sodium Lvl [135-145 mEq/L] 140 mEq/L 140 mEq/L 134 mEq/L (07/14/2012 04:56:00) (07/13/2012 02:30:00) *LOW* (07/12/2012 02:15:00) Potassium Lvl [3.5-5.1 4.6 mEq/L 4.6 mEq/L 4.2 mEq/L mEq/L] (07/14/2012 04:56:00) (07/13/2012 02:30:00) (07/12/2012 02:15:00) Chloride Lvl [95-109 103 mEq/L 103 mEq/L 99 mEq/L mEq/L] (07/14/2012 04:56:00) (07/13/2012 02:30:00) (07/12/2012 02:15:00) CO2 [24-32 mEq/L] 27 mEq/L 24 mEq/L 23 mEq/L (07/14/2012 04:56:00) (07/13/2012 02:30:00) *LOW* (07/12/2012 02:15:00) AGAP [10.0-20.0 mEq/L] 14.6 mEq/L 17.6 mEq/L 16.2 mEq/L (07/14/2012 04:56:00) (07/13/2012 02:30:00) (07/12/2012 02:15:00) Creatinine Lvl [0.5-1.4 0.9 mg/dL 1.1 mg/dL 1.9 mg/dL mg/dL] (07/14/2012 04:56:00) (07/13/2012 02:30:00) *HI* (07/12/2012 02:15:00) eGFR 22 4 *NA* (07/11/2012 12:28:00) BUN [7-22 mg/dL] 25 mg/dL 44 mg/dL 60 mg/dL *HI* *HI* *HI* (07/14/2012 04:56:00) (07/13/2012 02:30:00) (07/12/2012 02:15:00) B/C Ratio [6-25] 22 (07/06/2012 13:13:00) Glucose Lvl [70-99 mg/dL] 143 mg/dL 5 138 mg/dL 6 167 mg/dL 7 *HI* *HI* *HI* (07/14/2012 04:56:00) (07/13/2012 02:30:00) (07/12/2012 02:15:00) Total Protein [6.4-8.4 6.9 g/dL g/dL] (07/06/2012 13:13:00) Albumin Lvl [3.5-5.0 g/dL] 3.9 g/dL (07/06/2012 13:13:00) Globulin [2.0-4.0 g/dL] 3.0 g/dL (07/06/2012 13:13:00) A/G Ratio [0.7-1.6] 1.3 (07/06/2012 13:13:00) Calcium Lvl [8.5-10.5 9.2 mg/dL 8.9 mg/dL 8.8 mg/dL mg/dL] (07/14/2012 04:56:00) (07/13/2012 02:30:00) (07/12/2012 02:15:00) Phosphorus [2.5-4.5 mg/dL] 2.8 mg/dL 2.9 mg/dL 4.2 mg/dL (07/14/2012 04:56:00) (07/13/2012 02:30:00) (07/12/2012 02:15:00) Magnesium Lvl [1.8-2.4 1.5 mg/dL 2.2 mg/dL 1.8 mg/dL mg/dL] *LOW* (07/13/2012 14:50:00) (07/13/2012 02:30:00) (07/14/2012 04:56:00) ALT [0-65 unit/L] 24 unit/L (07/06/2012 13:13:00) AST [0-37 unit/L] 19 unit/L (07/06/2012 13:13:00) Alk Phos [39-136 unit/L] 68 unit/L (07/06/2012 13:13:00) Bili Total [0.2-1.3 mg/dL] 0.4 mg/dL (07/06/2012 13:13:00) Total CK [12-191 unit/L] 104 unit/L 108 unit/L 335 unit/L (07/13/2012 14:50:00) (07/13/2012 09:45:00) *HI* (07/12/2012 02:15:00) CK MB [0.5-3.6 ng/mL] 2.9 ng/mL 3.2 ng/mL 6.5 ng/mL (07/13/2012 14:50:00) (07/13/2012 09:45:00) *HI* (07/12/2012 02:15:00) CK MB Index [0.0-2.5] 2.8 3.0 1.9 *HI* *HI* (07/12/2012 02:15:00) (07/13/2012 14:50:00) (07/13/2012 09:45:00) Troponin-T [0.000-0.100 2.370 ng/mL 8 3.090 ng/mL 9 4.890 ng/mL 10 ng/mL] *CRIT* *CRIT* *CRIT* (07/13/2012 14:50:00) (07/13/2012 09:45:00) (07/12/2012 02:15:00) Troponin-I [0.00-0.40 11.80 ng/mL 11 13.40 ng/mL 12 30.40 ng/mL 13 ng/mL] *CRIT* *CRIT* *CRIT* (07/13/2012 14:50:00) (07/13/2012 09:45:00) (07/12/2012 02:15:00) Myoglobin [25-72 ng/mL] 199 ng/mL *HI* (07/09/2012 17:24:00) CHD Risk [3.90-5.80] 4.41 (07/09/2012 21:33:00) Chol [120-200 mg/dL] 163 mg/dL (07/09/2012 21:33:00) Trig [0-200 mg/dL] 147 mg/dL (07/09/2012:33:00) HDL [>=35 mg/dL] 37 mg/dL (07/09/2012:33:00) LDL [0-129 mg/dL] 97 mg/dL (07/09/2012:33:00) Hgb A1C 7.8 % 14 *NA* (07/09/2012:33:00) Vitamin B12 Lvl [254-1320 420 pg/mL pg/mL] (07/09/2012:35:00) Folate Lvl [>=3.0 ng/mL] 17.7 ng/mL (07/09/2012:35:00) T3 Uptake [31-39 %] 34 % (07/09/2012:33:00) T4 [4.7-13.3 ug/dl] 7.9 ug/dl (07/09/2012:33:00) FTI 2.7 *NA* (07/09/2012:33:00) TSH [0.360-3.740 uIU/mL] 0.624 uIU/mL (07/09/2012:33:00) Ca Ion mgdL [4.65-5.20 5.24 mg/dL 4.64 mg/dL 4.60 mg/dL mg/dL] *HI* *LOW* *LOW* (07/14/2012 04:56:00) (07/13/2012 02:30:00) (07/12/2012 02:15:00) Ca Ion [1.16-1.30 mMol/L] 1.31 mMol/L 1.16 mMol/L 1.15 mMol/L *HI* (07/13/2012 02:30:00) *LOW* (07/14/2012 04:56:00) (07/12/2012 02:15:00) Ca Norm [1.16-1.30 mMol/L] 1.36 mMol/L 1.14 mMol/L 1.12 mMol/L *HI* *LOW* *LOW* (07/14/2012 04:56:00) (07/13/2012 02:30:00) (07/12/2012 02:15:00) Ca Norm mgdL [4.65-5.20 5.44 mg/dL 4.56 mg/dL 4.48 mg/dL mg/dL] *HI* *LOW* *LOW* (07/14/2012 04:56:00) (07/13/2012 02:30:00) (07/12/2012 02:15:00) U Amph Scr [Negative] Negative *NA* (07/09/2012 21:33:00) U Kaye Scr [Negative] Negative *NA* (07/09/2012 21:33:00) U Benzodia Scr [Negative] Positive *ABN* (07/09/2012 21:33:00) U Cocaine Scr [Negative] Negative *NA* (07/09/2012 21:33:00) U Opiate Scr [Negative] Positive *ABN* (07/09/2012 21:33:00) U Phencyc Scr [Negative] Negative *NA* (07/09/2012 21:33:00) U Cannab Scr [Negative] Negative *NA* (07/09/2012 21:33:00) UDS Note See Note 15 (07/09/2012 21:33:00) POC A Hct [36.0-48.0 %] 30.0 % *LOW* (07/09/2012 17:26:00) POC A Ca Ion [1.16-1.30 1.18 mMol/L mMol/L] (07/09/2012 17:26:00) POC A K [3.5-5.1 mEq/L] 4.2 mEq/L (07/09/2012 17:26:00) POC A Source ART *NA* (07/09/2012 17:26:00) POC A Temp 37.0 DegC *NA* (07/09/2012 17:26:00) POC A pH [7.35-7.45] 7.51 *HI* (07/09/2012 17:26:00) POC A PCO2 [35-45 mmHg] 33 mmHg *LOW* (07/09/2012 17:26:00) POC A PO2 [80-100 mmHg] 123 mmHg *HI* (07/09/2012 17:26:00) POC A HCO3 [22-26 mMol/L] 26 mMol/L (07/09/2012 17:26:00) POC A BE [-2-2 mMol/L] 3 mMol/L *HI* (07/09/2012 17:26:00) POC A O2 Sat [95.0-100.0 99.0 % %] (07/09/2012 17:26:00) POC A Glu [70-99 mg/dL] 225 mg/dL *HI* (07/09/2012 17:26:00) POC A LA [0.5-2.2 mMol/L] 1.7 mMol/L (07/09/2012 17:26:00) POC A Na [135-145 mEq/L] 131 mEq/L *LOW* (07/09/2012 17:26:00) 4Result Comment: Expected eGFR for >20 yr. age group: >=60 ml/min/1.73 sq m The eGFR calculation is not valid in or for persons < 18 years of age. From National Kidney Disease Education Program (NKDEP)5Interpretive Data: Adult reference range values reflect the clinical guidelines of the [place] [employer].6Interpretive Data: Adult reference range values reflect the clinical guidelines of the [place] [employer].7Interpretive Data: Adult reference range values reflect the clinical guidelines of the [place] [employer].8Result Comment: Critical Result(s) called to MS. DANGELO at 07/13/2012 16:34:32 CDT by MANINDER. Read back OK.9Result Comment : Critical Result(s) called to Rosalinda Ely at 07/13/2012 13:06:41 CDT by RG. Read back OK.10Result Comment: Critical Result(s) called to Rose Lopez_ at 04:04:00 CDT_ by_mgm. Read back OK. (endorsed by [facility] to release result while in break).11Result Comment: Critical Result(s) called to perla ni at _07/13/2012 16:24:24 CDT by_nvj. Read back OK.12Result Comment: Critical Result(s) called to perla ni at 07/13/2012 13:00:19 CDT _ by_lss. Read back OK.13Result Comment: Critical Result(s) called to florence chung at _07/12/2012 03:28:01 CDT by_lg. Read back OK.14Interpretive Data: HbA1C% eAG(mg/dL) Interpretation 6.0 126 Very good control 6.5 140 Very good control 7.0 154 Good Control 7.5 169 Good Control 8.0 183 Marginal Control, take action to lower 8.5 197 Marginal Control, take action to lower 9.0 212 Poor Control, take action to lower 9.5 226 Poor Control, take action to lower 10.0 240 Poor Control, take action to [id number] Data: Drugs reported as positive have not been confirmed by a second method and should be used for medical purposes only. To order confirmation, contact laboratory. note: Below are cut-off concentrations for all urine drugs of abuse performed in the laboratory. Some drugs listed in the table may not be included in this panel. Description Cut-off concentration Amphetamine 1000 ng/mL Barbiturates 200 ng/mL Benzodiazepines 300 ng/mL Cocaine metabolites 300 ng/mL Opiates 300 ng/mL Phencyclidine 25 ng/mL Propoxyphene 300 ng/mL Marijuana metabolites 50 ng/mL Methadone 300 ng/mL Urine alcohol 20 mg/dLHEMATOLOGY Most recent to oldest 1 2 3 [Reference Range]: WBC [3.7-10.4 K/CMM] 6.4 K/CMM 6.8 K/CMM 8.9 K/CMM (07/14/2012 04:56:00) (07/13/2012 02:30:00) (07/12/2012 02:15:00) RBC [4.20-5.40 M/CMM] 3.39 M/CMM 3.61 M/CMM 3.60 M/CMM *LOW* *LOW* *LOW* (07/14/2012 04:56:00) (07/13/2012 02:30:00) (07/12/2012 02:15:00) Hgb [12.0-16.0 g/dL] 10.3 g/dL 10.8 g/dL 10.4 g/dL *LOW* *LOW* *LOW* (07/14/2012 04:56:00) (07/13/2012 02:30:00) (07/12/2012 10:43:00) Hct [36.0-48.0 %] 30.1 % 32.2 % 31.1 % *LOW* *LOW* *LOW* (07/14/2012 04:56:00) (07/13/2012 02:30:00) (07/12/2012 10:43:00) MCV [81.0-99.0 fL] 88.7 fL 89.3 fL 88.5 fL (07/14/2012 04:56:00) (07/13/2012 02:30:00) (07/12/2012 02:15:00) MCH [27.0-31.0 pg] 30.5 pg 30.0 pg 29.8 pg (07/14/2012 04:56:00) (07/13/2012 02:30:00) (07/12/2012 02:15:00) MCHC [32.0-36.0 g/dL] 34.4 g/dL 33.6 g/dL 33.7 g/dL (07/14/2012 04:56:00) (07/13/2012 02:30:00) (07/12/2012 02:15:00) RDW [11.5-14.5 %] 14.4 % 14.8 % 14.6 % (07/14/2012 04:56:00) *HI* *HI* (07/13/2012 02:30:00) (07/12/2012 02:15:00) Platelet [133-450 K/CMM] 154 K/CMM 127 K/CMM 143 K/CMM (07/14/2012 04:56:00) *LOW* (07/12/2012 02:15:00) (07/13/2012 02:30:00) MPV [7.4-10.4 fL] 8.6 fL 9.0 fL 8.8 fL (07/14/2012 04:56:00) (07/13/2012 02:30:00) (07/12/2012 02:15:00) Segs [45.0-75.0 %] 73.3 % 74.2 % 77.6 % (07/14/2012 04:56:00) (07/13/2012 02:30:00) *HI* (07/12/2012 02:15:00) Lymphocytes [20.0-40.0 %] 14.8 % 13.0 % 11.6 % *LOW* *LOW* *LOW* (07/14/2012 04:56:00) (07/13/2012 02:30:00) (07/12/2012 02:15:00) Monocytes [2.0-12.0 %] 7.9 % 9.4 % 7.4 % (07/14/2012 04:56:00) (07/13/2012 02:30:00) (07/12/2012 02:15:00) Eosinophils [0.0-4.0 %] 3.7 % 3.0 % 3.1 % (07/14/2012 04:56:00) (07/13/2012 02:30:00) (07/12/2012 02:15:00) Basophils [0.0-1.0 %] 0.3 % 0.4 % 0.3 % (07/14/2012 04:56:00) (07/13/2012 02:30:00) (07/12/2012 02:15:00) Segs-Bands # [1.5-8.1 4.7 K/CMM 5.0 K/CMM 6.9 K/CMM K/CMM] (07/14/2012 04:56:00) (07/13/2012 02:30:00) (07/12/2012 02:15:00) Lymphocytes # [1.0-5.5 0.9 K/CMM 0.9 K/CMM 1.0 K/CMM K/CMM] *LOW* *LOW* (07/12/2012 02:15:00) (07/14/2012 04:56:00) (07/13/2012 02:30:00) Monocytes # [0.0-0.8 0.5 K/CMM 0.6 K/CMM 0.7 K/CMM K/CMM] (07/14/2012 04:56:00) (07/13/2012 02:30:00) (07/12/2012 02:15:00) Eosinophils # [0.0-0.5 0.2 K/CMM 0.2 K/CMM 0.3 K/CMM K/CMM] (07/14/2012 04:56:00) (07/13/2012 02:30:00) (07/12/2012 02:15:00) Basophils # [0.0-0.2 0.0 K/CMM 0.0 K/CMM 0.0 K/CMM K/CMM] (07/14/2012 04:56:00) (07/13/2012 02:30:00) (07/12/2012 02:15:00) RBC Morph Normal (07/09/2012 17:24:00) Plt Morph Normal (07/09/2012 17:24:00) PT [12.0-14.7 seconds] 13.6 seconds 13.3 seconds 13.3 seconds (07/14/2012 04:56:00) (07/13/2012 02:30:00) (07/12/2012 02:15:00) INR [0.85-1.17] 1.02 16 0.99 17 0.99 18 (07/14/2012 04:56:00) (07/13/2012 02:30:00) (07/12/2012 02:15:00) PTT [22.9-35.8 seconds] 30.5 seconds 19 28.1 seconds 20 28.2 seconds 21 (07/14/2012 04:56:00) (07/13/2012 02:30:00) (07/12/2012 02:15:00) ASA Effect Plt 456 ARU 22 *NA* (07/10/2012 11:50:00) Plav Effect Plt 331 PRU 23 *NA* (07/10/2012 11:50:00) 16Interpretive Data: RECOMMENDED RANGES FOR PROTIME INR: 2.0-3.0 for most medical and surgical thromboembolic states. 2.5-3.5 for artificial heart valves and recurrent embolism. INR SHOULD BE USED ONLY FOR PATIENTS ON STABLE ANTICOAGULANT THERAPY.17Interpretive Data: RECOMMENDED RANGES FOR PROTIME INR: 2.0-3.0 for most medical and surgical thromboembolic states. 2.5-3.5 for artificial heart valves and recurrent embolism. INR SHOULD BE USED ONLY FOR PATIENTS ON STABLE ANTICOAGULANT THERAPY.18Interpretive Data: RECOMMENDED RANGES FOR PROTIME INR: 2.0-3.0 for most medical and surgical thromboembolic states. 2.5-3.5 for artificial heart valves and recurrent embolism. INR SHOULD BE USED ONLY FOR PATIENTS ON STABLE ANTICOAGULANT THERAPY.19Interpretive Data: Heparin Therapeutic Range: 57 - 92 [id number] Data: Heparin Therapeutic Range: 57 - 92 [id number] Data: Heparin Therapeutic Range: 57 - 92 [id number] Data: Test results are reported in Aspirin Reaction Units (ARU). 350-549 ARU - Therapeutic range for platelet function (Patient's aspirin is working effectively) 550-700 ARU [...] in higher ARU values than ASA taken alone.23Interpretive Data: PRU reference range is 194 - 418. Post Drug Results: Lower PRU levels are associated with expected antiplatelet effect. Values may be below the stated reference range above. The post-drug PRU values reported in the [employer] P2Y12 Test package insert are 18 - 435. Interference: Platelet counts less than 120,000 or greater than 502,000 Hematocrit values less than 33% or greater than 52% Patient taking GP IIb/IIIa Inhibitor, e.g. ReoPro or Integrilin
--- OUTSIDE RECORDS SUMMARY | 2018-04-25 10:59 | XMS REPORT | Summary of Care ---
:1935 Author Organization [facility] Address [address], [place] [address]- Encounter HQ Oneyda_cee(FIN) [id number] Date(s): 04/22/18 - 04/22/18 [facility] [address], [address] [place] [address]- Discharge Disposition: Home or Self Care Attending Physician: John Parra MD Referring Physician: John Parra MD Vital Signs Most recent to oldest [Reference Range]: 1 Height 158.24 cm (04/22/18 4:30 PM) Temperature Oral [96.4-99.1 DegF] 97.9 DegF (04/22/18 4:30 PM) Blood Pressure [90-140/60-90 mmHg] 107/64 mmHg (04/22/18 4:30 PM) Respiratory Rate [14-20 BRMIN] 18 BRMIN (04/22/18 4:30 PM) Peripheral Pulse Rate [60-100 bpm] 92 bpm (04/22/18 4:30 PM) Weight 65.568 kg (04/22/18 4:30 PM) Body Mass Index 26.19 m2 (04/22/18 4:30 PM) Problem List Condition Effective Dates Status Health Status Informant Severe aortic stenosis(Confirmed) Active 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) Breast biopsy and related Resolved procedures(Confirmed) CAD - Coronary artery Active disease(Confirmed) CAD - Coronary artery Active disease(Confirmed) Diabetes(Confirmed) 1996 Resolved DM - Diabetes mellitus(Confirmed) Active Foot swelling(Confirmed) Resolved Heart attack(Confirmed) Resolved HTN (hypertension)(Confirmed) Active Laminectomy(Confirmed) Resolved Low back pain1, 2, 3 06/10/12 Resolved Lumbar region injury(Confirmed) Resolved O/E - pain(Confirmed) Resolved 1Data migrated from [employer] on 06/20/15.2Data migrated from [employer] on 06/20/15.3Data migrated from [employer] on 06/20/15. Allergies, Adverse Reactions, Alerts Substance Reaction Severity Status NKDA Active Medications bumetanide 1 mg oral tablet See Instructions, 2 tab PO qAM and 1 tab PO qPM, # 90 tab, 3 Refill(s), Pharmacy : [id number] Start Date: 04/22/18 Status: Orderedvalsartan 40 mg oral tablet 40 mg=1 tab, PO, BID, # 60 tab, 3 Refill(s), Pharmacy: [id number] Start Date: 04/22/18 Stop Date: 08/20/18 Status: Ordered Results No data available for this section Immunizations Given and Recorded Vaccine Date Status Refusal Reason pneumococcal 23-valent vaccine 10/30/17 Given influenza virus vaccine, inactivated 10/30/17 Given influenza virus vaccine, inactivated 07/15/12 Given Procedures Procedure Date Related Diagnosis Body Site Status Heart valve replacement 10/2017 Completed Appendectomy Completed Breast biopsy and related procedures Completed Cardiac catheterization Completed Cataract surgery Completed Hysterectomy Completed Ulnar nerve decompression Completed Social History Social History Type Response Substance Abuse Use: None. Employment/School Status: Retired. Alcohol Never Smoking Status Never smoker; Ready to change: No; Concerns about tobacco use in household: No; Exposure to Tobacco Smoke None; Cigarette Smoking Last 365 Days No; Reg Smoking Cessation Counseling No1 entered on: 04/22/18 1pt denies smoking Assessment and Plan No data available for this section
--- OUTSIDE RECORDS SUMMARY | 2018-04-25 11:00 | XMS REPORT | CCD ---
:1935 Author Organization [facility] Care Team Providers Name Role Phone Krysta Albright Abiola Consulting Provider Filiberto Cannon Consulting Provider Allergies, Adverse Reactions, Alerts Substance Reaction Status HYDROcodone-Pseudoephedrine HCl Active Problem List Condition Effective Dates Status CAD - Coronary artery disease Active DM - Diabetes mellitus Active Heart attack Active Laminectomy Active O/E - pain Active Stented artery Active Medications Medication Instructions Start Date End Date Status magnesium sulfate 2 gm, 50 mL, Route: 07/17/2012 07/17/2012 Completed IVPB, Drug form: INJ, ONCE, Dosing Weight 67, kg, Total dose=2 gm, Start date: 07/17/12 4:24:00, Duration: 1 doses or times, Stop date: 07/17/12 4:24:00 magnesium oxide 400 mg, 1 tab, Route: 07/17/2012 07/17/2012 Discontinued PO, Drug form: TAB, ONCE, Dosing Weight 67, kg, Start date: 07/17/12 3:49:00, Stop date: 07/17/12 3:49:00 Coumadin 7.5 mg, 1 tab, Route: 07/21/2012 07/21/2012 Completed PO, Drug form: TAB, Q5PM, Dosing Weight 67, kg, Start date: 07/21/12 17:00:00, Duration: 1 doses or times, Stop date: 07/21/12 17:00:00 influenza virus vaccine, 0.5 ml, Route: IM, Drug 2012 2012 Completed inactivated Form: INJ, Start date: 07/15/12 9:00:00, Stop date: 07/15/12 9:00:00 magnesium sulfate 2 gm, 50 mL, Route: 2012 2012 Completed IVPB, Drug form: INJ, ONCE, Dosing Weight 82.273, kg, Total dose=2 gm, Start date: 07/15/12 19:04:00, Duration: 1 doses or times, Stop date: 07/15/12 19:04:00 magnesium sulfate 2 gm, 50 mL, Route: 07/21/2012 07/21/2012 Completed IVPB, Drug form: INJ, ONCE, Dosing Weight 67, kg, Total dose=2 gm, Start date: 07/21/12 7:32:00, Duration: 1 doses or times, Stop date: 07/21/12 7:32:00 Coreg 6.25 mg, Route: PO, 07/17/2012 07/17/2012 Completed ONCE, Dosing Weight 67, kg, Start date: 07/17/12 14:49:00, Stop date: 07/17/12 14:49:00 magnesium sulfate 2 gm, 50 mL, Route: IVPB, Drug form: INJ, Q2H, Dosing Weight 67, kg, Start date: 07/18/12 8:00:00, Duration: 3 doses or times, Stop date: 07/18/12 12:00:00, For Mg=1.0 - 1.4 mg/dL 07/18/2012 07/18/2012 Completed For Mg=1.0 - 1.4 mg/dL Neurontin 100 mg oral 100 mg, 1 cap, Route: 07/21/2012 07/21/2012 Discontinued capsule PO, Drug form: CAP, Q8H, Dosing Weight 67, kg, Start date: 07/21/12 16:00:00, Duration: 30 day, Stop date: 08/20/12 8:00:00 heparin 4,000 unit, 4 mL, Route: 07/16/2012 07/19/2012 Discontinued IV, Drug form: INJ, PRN, PRN Abnormal Lab Result, Start date: 07/16/12 11:32:00, Duration: 30 day, Stop date: 08/15/12 11:31:00 Saline Flush 0.9% 5 ml, Route: IVP, Drug 07/17/2012 07/21/2012 Discontinued Form: INJ, Dosing Weight 67, kg, PRN, PRN Line Flush, Start date: 07/17/12 14:12:00, Duration: 30 day, Stop date: 08/16/12 14:11:00 Saline Flush 0.9% 5 ml, Route: IVP, Drug 07/17/2012 07/21/2012 Discontinued Form: INJ, Dosing Weight 67, kg, Q12H, Start date: 07/17/12 21:00:00, Duration: 30 day, Stop date: 08/16/12 9:00:00 Coreg 6.25 mg, Route: PO, Drug 07/17/2012 07/17/2012 Discontinued form: TAB, ONCE, Dosing Weight 67, kg, Start date: 07/17/12 8:46:00, Stop date: 07/17/12 8:46:00 nitroglycerin SL Tab 0.4 mg, 1 tab, Route: 07/17/2012 07/21/2012 Discontinued SL, Drug form: TAB, Q5Min, Dosing Weight 67, kg, PRN Chest Pain, Start date: 07/17/12 14:12:00, Duration: 30 day, Stop date: 08/16/12 14:07:00 magnesium oxide 800 mg, 2 tab, Route: 07/20/2012 07/20/2012 Completed PO, Drug form: TAB, ONCE, Dosing Weight 67, kg, Start date: 07/20/12 11:38:00, Stop date: 07/20/12 11:38:00 warfarin 5 mg, 1 tab, Route: PO, 07/20/2012 07/20/2012 Completed Drug form: TAB, Q5PM, Dosing Weight 67, kg, Start date: 07/20/12 21:00:00, Duration: 1 doses or times, Stop date: 07/20/12 21:00:00 nitroglycerin 0.4 mg 0.4 mg, 1 tab, Route: 2012 07/17/2012 Discontinued sublingual tablet SL, Drug form: TAB, Q5Min, Dosing Weight 82.273, kg, PRN Chest Pain, Start date: 07/15/12 18:15:00, Duration: 30 day, Stop date: 08/14/12 18:14:00 insulin aspart 4 unit, 0.04 mL, Route: 2012 07/21/2012 Discontinued SUB-Q, Drug form: SOLN, Bedtime, Dosing Weight 82.273, kg, PRN Blood Glucose Results, Start date: 07/15/12 18:15:00, Duration: 30 day, Stop date: 08/14/12 18:14:00 insulin aspart 8 unit, 0.08 mL, Route: 2012 07/21/2012 Discontinued SUB-Q, Drug form: SOLN, TID-Before Meals, Dosing Weight 82.273, kg, PRN Blood Glucose Results, Start date: 07/15/12 18:15:00, Duration: 30 day, Stop date: 08/14/12 18:14:00 insulin aspart 4 unit, 0.04 mL, Route: 2012 07/21/2012 Discontinued SUB-Q, Drug form: SOLN, TID-Before Meals, Dosing Weight 82.273, kg, PRN Blood Glucose Results, Start date: 07/15/12 18:15:00, Duration: 30 day, Stop date: 08/14/12 18:14:00 insulin aspart 10 unit, 0.1 mL, Route: 2012 07/21/2012 Discontinued SUB-Q, Drug form: SOLN, TID-Before Meals, Dosing Weight 82.273, kg, PRN Blood Glucose Results, Start date: 07/15/12 18:15:00, Duration: 30 day, Stop date: 08/14/12 18:14:00 insulin aspart 6 unit, 0.06 mL, Route: 2012 07/21/2012 Discontinued SUB-Q, Drug form: SOLN, TID-Before Meals, Dosing Weight 82.273, kg, PRN Blood Glucose Results, Start date: 07/15/12 18:15:00, Duration: 30 day, Stop date: 08/14/12 18:14:00 insulin aspart 2 unit, 0.02 mL, Route: 2012 07/21/2012 Discontinued SUB-Q, Drug form: SOLN, TID-Before Meals, Dosing Weight 82.273, kg, PRN Blood Glucose Results, Start date: 07/15/12 18:15:00, Duration: 30 day, Stop date: 08/14/12 18:14:00 insulin aspart 3 unit, 0.03 mL, Route: 2012 07/21/2012 Discontinued SUB-Q, Drug form: SOLN, Bedtime, Dosing Weight 82.273, kg, PRN Blood Glucose Results, Start date: 07/15/12 18:15:00, Duration: 30 day, Stop date: 08/14/12 18:14:00 insulin aspart 2 unit, 0.02 mL, Route: 2012 07/21/2012 Discontinued SUB-Q, Drug form: SOLN, Bedtime, Dosing Weight 82.273, kg, PRN Blood Glucose Results, Start date: 07/15/12 18:15:00, Duration: 30 day, Stop date: 08/14/12 18:14:00 insulin aspart 1 unit, 0.01 mL, Route: 2012 07/21/2012 Discontinued SUB-Q, Drug form: SOLN, Bedtime, Dosing Weight 82.273, kg, PRN Blood Glucose Results, Start date: 07/15/12 18:15:00, Duration: 30 day, Stop date: 08/14/12 18:14:00 glucagon 1 mg, Route: IM, Drug 2012 07/21/2012 Discontinued form: PDR/INJ, PRN, Dosing Weight 82.273, kg, PRN Blood Glucose Results, Start date: 07/15/12 18:15:00, Duration: 30 day, Stop date: 08/14/12 18:14:00 Dextrose 50% Syringe 12.5 gm, 25 mL, Route: 2012 07/21/2012 Discontinued IVP, Drug Form: INJ, Dosing Weight 82.273, kg, PRN, PRN Blood Glucose Results, Start date: 07/15/12 18:15:00, Duration: 30 day, Stop date: 08/14/12 18:14:00 Dextrose 50% Syringe 25 gm, 50 mL, Route: 2012 07/21/2012 Discontinued IVP, Drug Form: INJ, Dosing Weight 82.273, kg, PRN, PRN Blood Glucose Results, Start date: 07/15/12 18:15:00, Duration: 30 day, Stop date: 08/14/12 18:14:00 magnesium sulfate 2 gm, 50 mL, Route: 07/16/2012 07/16/2012 Completed IVPB, Drug form: INJ, ONCE, Dosing Weight 82.273, kg, Total dose=2 gm, Start date: 07/16/12 5:50:00, Duration: 1 doses or times, Stop date: 07/16/12 5:50:00 Lantus 20 unit, 0.2 mL, Route: 07/19/2012 07/21/2012 Discontinued SUB-Q, Drug form: INJ, Daily, Start date: 07/19/12 9:00:00, Duration: 30 day, Stop date: 08/17/12 9:00:00 Coreg 12.5 mg, 1 tab, Route: 2012 07/21/2012 Discontinued PO, Drug form: TAB, Q12H, Dosing Weight 82.273, kg, Start date: 07/15/12 21:00:00, Stop date: 08/14/12 9:00:00 Protonix 40 mg, 1 tab, Route: PO, 07/16/2012 07/21/2012 Discontinued Drug form: ECTAB, Before Dinner, Dosing Weight 82.273, kg, Start date: 07/16/12 16:30:00, Duration: 30 day, Stop date: 08/14/12 16:30:00 lisinopril 10 mg, 1 tab, Route: PO, 07/16/2012 07/21/2012 Discontinued Drug form: TAB, Daily, Dosing Weight 82.273, kg, Start date: 07/16/12 9:00:00, Duration: 30 day, Stop date: 08/14/12 9:00:00 insulin glargine 20 unit, Route: SUB-Q, 07/16/2012 07/19/2012 Discontinued Drug form: INJ, Daily, Dosing Weight 82.273, kg, Start date: 07/16/12 9:00:00, Duration: 30 day, Stop date: 08/14/12 9:00:00 clopidogrel 75 mg, 1 tab, Route: PO, 07/16/2012 07/21/2012 Discontinued Drug form: TAB, Daily, Dosing Weight 82.273, kg, Start date: 07/16/12 9:00:00, Duration: 30 day, Stop date: 08/14/12 9:00:00 citalopram 10 mg, 1 tab, Route: PO, 07/16/2012 07/21/2012 Discontinued Drug form: TAB, Daily, Dosing Weight 82.273, kg, Start date: 07/16/12 9:00:00, Duration: 30 day, Stop date: 08/14/12 9:00:00 atorvastatin 80 mg, 1 tab, Route: PO, 07/16/2012 07/21/2012 Discontinued Drug form: TAB, QPM, Dosing Weight 82.273, kg, Start date: 07/16/12 17:00:00, Duration: 30 day, Stop date: 08/14/12 17:00:00 magnesium sulfate 2 gm, 50 mL, Route: 07/16/2012 07/16/2012 Completed IVPB, Drug form: INJ, Q2H, Dosing Weight 82.273, kg, Total dose=4 gm, Start date: 07/16/12 8:00:00, Duration: 1 doses or times, Stop date: 07/16/12 10:00:00 aspirin 325 mg tablet 325 mg, 1 tab, Route: 07/16/2012 07/21/2012 Discontinued PO, Drug form: TAB, Daily, Dosing Weight 82.273, kg, Start date: 07/16/12 9:00:00, Duration: 30 day, Stop date: 08/14/12 9:00:00 Maize 10/325 oral tablet 1 tab, Route: PO, Drug 2012 07/21/2012 Discontinued Form: TAB, Dosing Weight 82.273, kg, Q4H, PRN as needed for pain, Start date: 07/15/12 18:13:00, Duration: 30 day, Stop date: 08/14/12 18:12:00 Coreg 6.25 mg, 1 tab, Route: 07/17/2012 07/17/2012 Completed PO, Drug form: TAB, ONCE, Start date: 07/17/12 13:28:00, Stop date: 07/17/12 13:28:00 ibuprofen 400 mg oral 400 mg, 1 tab, Route: 07/21/2012 07/21/2012 Discontinued tablet PO, Drug form: TAB, Q4H, Dosing Weight 67, kg, PRN Pain, Start date: 07/21/12 1:32:00, Duration: 30 day, Stop date: 08/20/12 1:31:00 Coumadin 5 mg, 1 tab, Route: PO, 07/19/2012 07/19/2012 Completed Drug form: TAB, Q5PM, Dosing Weight 67, kg, Start date: 07/19/12 17:00:00, Duration: 1 doses or times, Stop date: 07/19/12 17:00:00 Coumadin 7.5 mg oral 7.5 mg, 1 tab, PO, Q5PM, 07/21/2012 07/21/2012 Discontinued tablet 31 tab, Substitution Allowed, TAB pneumococcal 23-valent 0.5 ml, Route: IM, Drug 07/22/2012 07/22/2012 Completed vaccine Form: INJ, Start date: 07/22/12 9:00:00, Stop date: 07/22/12 9:00:00 heparin 5,000 unit, 1 mL, Route: 2012 07/16/2012 Discontinued SUB-Q, Drug form: INJ, Q12H, Dosing Weight 82.273, kg, Start date: 07/15/12 21:00:00, Duration: 30 day, Stop date: 08/14/12 9:00:00 Neurontin 100 mg oral 100 mg, 1 cap, PO, Q8H, 07/21/2012 Ordered capsule 90 cap, Substitution Allowed, CAP Coumadin 7.5 mg oral 7.5 mg, 1 tab, PO, Q5PM, 07/21/2012 Ordered tablet 31 tab, Substitution Allowed, TAB Protonix 40 mg oral 40 mg, 1 tab, PO, Before 07/21/2012 Ordered enteric coated tablet Dinner, 30 tab, Substitution Allowed, ECTAB metoprolol 5 mg/5 ml INJ 5 mg, 5 mL, Route: IVP, 07/20/2012 07/21/2012 Discontinued Drug form: INJ, ONCE, Dosing Weight 67, kg, PRN Other -See Comment, Start date: 07/20/12 12:00:00, Stop date: 08/19/12 11:59:00 Lantus 100 units/mL 20 unit, 0.2 mL, SUB-Q, 07/21/2012 Ordered subcutaneous solution Daily, 1 vial, Substitution Allowed, SOLN lisinopril 10 mg oral 10 mg, 1 tab, PO, Daily, 07/21/2012 Ordered tablet 30 tab, Substitution Allowed, TAB acetaminophen 650 mg, 2 tab, Route: 2012 07/21/2012 Discontinued PO, Drug form: TAB, Q4H, Dosing Weight 82.273, kg, PRN Pain/Fever, Start date: 07/15/12 18:09:00, Duration: 30 day, Stop date: 08/14/12 18:08:00 docusate 100 mg, 1 cap, Route: 07/16/2012 07/21/2012 Discontinued PO, Drug form: CAP, BID, Dosing Weight 82.273, kg, Start date: 07/16/12 9:00:00, Duration: 30 day, Stop date: 08/14/12 17:00:00 calcium chloride + Sodium 2,000 mg, 20 mL, Route: 07/19/2012 07/19/2012 Discontinued Chloride 0.9% IV 100 mL IV, Drug form: INJ, ONCE, Dosing Weight 67, kg, Start date: 07/19/12 5:03:00, Stop date: 07/19/12 5:03:00 magnesium sulfate 2 gm, 50 mL, Route: 07/19/2012 07/19/2012 Completed IVPB, Drug form: INJ, Q2H, Dosing Weight 67, kg, Total dose=6 gm, Start date: 07/19/12 6:00:00, Duration: 3 doses or times, Stop date: 07/19/12 10:00:00 clopidogrel 75 mg oral 75 mg, 1 tab, PO, Daily, 07/21/2012 Ordered tablet 30 tab, Substitution Allowed, TAB citalopram 10 mg oral 10 mg, 1 tab, PO, Daily, 07/21/2012 Ordered tablet 30 tab, Substitution Allowed, TAB atorvastatin 80 mg oral 80 mg, 1 tab, PO, QPM, 07/21/2012 Ordered tablet 30 tab, Substitution Allowed, TAB Coreg 3.125 mg oral tablet 3.125 mg, 1 tab, PO, 07/21/2012 Ordered Q12H, 60 tab, Substitution Allowed, TAB aspirin 325 mg tablet 325 mg, 1 tab, PO, 07/21/2012 Ordered Daily, 30 tab, Substitution Allowed, TAB Heparin - one time bolus 4,000 unit, 4 mL, Route: 07/16/2012 07/16/2012 Completed for ACS IV, Drug form: INJ, ONCE, Dosing Weight 82.273, kg, Priority: STAT, Start date: 07/16/12 11:09:00, Stop date: 07/16/12 11:09:00 Heparin - infusion (ACS 25,000 unit, 500 mL, 07/16/2012 07/19/2012 Discontinued Protocol) heparin 25,000 Rate: Start at 13 units in D5W 500 mL Premix units/kg/hr - adjust per 25,000 unit ACS protocol, Dosing Weight 82.273, kg, Route: IV, Total Volume: 500 ml, Start date: 07/16/12 11:09:00, Duration: 30 day, Stop date: 08/15/12 11:08:00, Replace Every: 24 hr magnesium oxide 500 mg 500 mg, PO, TID, 90 tab, 07/21/2012 Ordered oral tablet Substitution Allowed, TAB heparin 2,000 unit, 2 mL, Route: 07/16/2012 07/19/2012 Discontinued IV, Drug form: INJ, PRN, PRN Abnormal Lab Result, Start date: 07/16/12 11:34:00, Duration: 30 day, Stop date: 08/15/12 11:33:00 magnesium oxide base 500 400 mg, 1 tab, Route: 07/21/2012 07/21/2012 Discontinued mg oral tablet PO, Drug Form: TAB, Dosing Weight 67, kg, TID, Start date: 07/21/12 17:00:00, Duration: 30 day, Stop date: 08/20/12 13:00:00 Immunizations Vaccine Date Status influenza virus vaccine, inactivated 2012 Auth (Verified) pneumococcal 23-valent vaccine 07/22/2012 Not Done Vital Signs Most recent to oldest 1 2 3 [Reference Range]: Height 165.1 cm (2012 18:20:01) Temperature Oral 98.7 DegF 97.8 DegF 98.5 DegF [96.4-99.1 DegF] (07/21/2012 16:23:00) (07/21/2012 09:17:00) (07/21/2012 05: 05:00) Systolic Blood Pressure 118 mmHg 107 mmHg 130 mmHg [90-140 mmHg] (07/21/2012 17:00:00) (07/21/2012 16:00:00) (07/21/2012 15:00: 00) Diastolic Blood Pressure 64 mmHg 57 mmHg 72 mmHg [60-90 mmHg] (07/21/2012 17:00:00) *LOW* (07/21/2012 15:00:00) (07/21/2012 16:00:00) Respiratory Rate [14-20 18 BRMIN 18 BRMIN 18 BRMIN BRMIN] (07/20/2012 04:00:00) (07/20/2012 00:00:00) (07/19/2012 20:57:00) Peripheral Pulse Rate 82 bpm [60-100 bpm] (2012 18:25:00) Weight 67 kg 82.273 kg (07/16/2012 11:54:00) (2012 18:20:01) Results BEDSIDE GLUCOSE TESTING Most recent to oldest 1 2 3 [Reference Range]: Gluc POC Lifscn [70-99 189 mg/dL 1 158 mg/dL 2 212 mg/dL 3 mg/dL] *HI* *HI* *HI* (07/21/2012 21:38:00) (07/21/2012 17:00:00) (07/21/2012 13:29:00) Comment1 Notify RN/MD Notify RN/MD Notify RN/MD *NA* *NA* *NA* (07/21/2012 21:38:00) (07/21/2012 06:26:00) (07/20/2012 21:16:00) 1Interpretive Data: Upper Reportable Limit: 200 mg/dL.2Interpretive Data: Upper Reportable Limit: 200 mg/dL.3Interpretive Data: Upper Reportable Limit: 200 mg/dL.BLOOD BANK RESULTS Most recent to oldest [Reference Range]: 1 2 3 ABO/Rh O NEG *Unknown* (07/17/2012 07:00:00) Antibody Scrn Negative (07/17/2012 07:00:00) CHEMISTRY Most recent to oldest 1 2 3 [Reference Range]: Sodium Lvl [135-145 mEq/L] 141 mEq/L 138 mEq/L 138 mEq/L (07/21/2012 04:45:00) (07/20/2012 03:46:00) (07/19/2012 03:50:00) Potassium Lvl [3.5-5.1 4.0 mEq/L 4.1 mEq/L 4.1 mEq/L mEq/L] (07/21/2012 04:45:00) (07/20/2012 03:46:00) (07/19/2012 03:50:00) Chloride Lvl [95-109 mEq/L] 105 mEq/L 101 mEq/L 102 mEq/L (07/21/2012 04:45:00) (07/20/2012 03:46:00) (07/19/2012 03:50:00) CO2 [24-32 mEq/L] 23 mEq/L 27 mEq/L 26 mEq/L *LOW* (07/20/2012 03:46:00) (07/19/2012 03:50:00) (07/21/2012 04:45:00) AGAP [10.0-20.0 mEq/L] 17.0 mEq/L 14.1 mEq/L 14.1 mEq/L (07/21/2012 04:45:00) (07/20/2012 03:46:00) (07/19/2012 03:50:00) Creatinine Lvl [0.5-1.4 0.6 mg/dL 0.9 mg/dL 0.9 mg/dL mg/dL] (07/21/2012 04:45:00) (07/20/2012 03:46:00) (07/19/2012 03:50:00) BUN [7-22 mg/dL] 13 mg/dL 13 mg/dL 14 mg/dL (07/21/2012 04:45:00) (07/20/2012 03:46:00) (07/19/2012 03:50:00) Glucose Lvl [70-99 mg/dL] 156 mg/dL 4 147 mg/dL 5 163 mg/dL 6 *HI* *HI* *HI* (07/21/2012 04:45:00) (07/20/2012 03:46:00) (07/19/2012 03:50:00) Total Protein [6.4-8.4 5.6 g/dL g/dL] *LOW* (07/17/2012 02:42:00) Albumin Lvl [3.5-5.0 g/dL] 2.7 g/dL *LOW* (07/17/2012 02:42:00) Globulin [2.0-4.0 g/dL] 2.9 g/dL (07/17/2012 02:42:00) A/G Ratio [0.7-1.6] 0.9 (07/17/2012 02:42:00) Calcium Lvl [8.5-10.5 9.6 mg/dL 9.3 mg/dL 9.3 mg/dL mg/dL] (07/21/2012 04:45:00) (07/20/2012 03:46:00) (07/19/2012 03:50:00) Phosphorus [2.5-4.5 mg/dL] 3.3 mg/dL 3.6 mg/dL 2.9 mg/dL (07/21/2012 04:45:00) (07/20/2012 03:46:00) (07/19/2012 03:50:00) Magnesium Lvl [1.8-2.4 1.4 mg/dL 1.7 mg/dL 1.5 mg/dL mg/dL] *LOW* *LOW* *LOW* (07/21/2012 04:45:00) (07/20/2012 03:46:00) (07/19/2012 03:50:00) ALT [0-65 unit/L] 21 unit/L (07/17/2012 02:42:00) AST [0-37 unit/L] 29 unit/L (07/17/2012 02:42:00) Alk Phos [39-136 unit/L] 66 unit/L (07/17/2012 02:42:00) Bili Total [0.2-1.3 mg/dL] 0.5 mg/dL (07/17/2012 02:42:00) Bili Direct [0.0-0.3 mg/dL] 0.2 mg/dL (07/17/2012 02:42:00) Bili Indirect [0.0-1.0 0.3 mg/dL mg/dL] (07/17/2012 02:42:00) Total CK [12-191 unit/L] 71 unit/L 66 unit/L 70 unit/L (07/17/2012 02:42:00) (07/16/2012 17:24:00) (07/16/2012 11:34:00) CK MB [0.5-3.6 ng/mL] 2.3 ng/mL (2012 23:12:00) CK MB Index [0.0-2.5] 2.4 (2012 23:12:00) Troponin-T [0.000-0.100 0.859 ng/mL 7 1.430 ng/mL 8 1.180 ng/mL 9 ng/mL] *CRIT* *CRIT* *CRIT* (07/19/2012 03:50:00) (07/17/2012 02:42:00) (07/16/2012 17:24:00) Troponin-I [0.00-0.40 3.07 ng/mL 10 3.51 ng/mL 11 4.03 ng/mL 12 ng/mL] *CRIT* *CRIT* *CRIT* (07/17/2012 02:42:00) (07/16/2012 17:24:00) (07/16/2012 11:34:00) Ca Ion mgdL [4.65-5.20 4.60 mg/dL 5.08 mg/dL 5.08 mg/dL mg/dL] *LOW* (07/20/2012 03:46:00) (07/19/2012 03:50:00) (07/21/2012 04:45:00) Ca Ion [1.16-1.30 mMol/L] 1.15 mMol/L 1.27 mMol/L 1.27 mMol/L *LOW* (07/20/2012 03:46:00) (07/19/2012 03:50:00) (07/21/2012 04:45:00) Ca Norm [1.16-1.30 mMol/L] 1.20 mMol/L 1.33 mMol/L 1.35 mMol/L (07/21/2012 04:45:00) *HI* *HI* (07/20/2012 03:46:00) (07/19/2012 03:50:00) Ca Norm mgdL [4.65-5.20 4.80 mg/dL 5.32 mg/dL 5.40 mg/dL mg/dL] (07/21/2012 04:45:00) *HI* *HI* (07/20/2012 03:46:00) (07/19/2012 03:50:00) POC A Hct [36.0-48.0 %] 30.0 % *LOW* (07/18/2012 05:16:00) POC A Ca Ion [1.16-1.30 1.21 mMol/L mMol/L] (07/18/2012 05:16:00) POC A K [3.5-5.1 mEq/L] 4.0 mEq/L (07/18/2012 05:16:00) POC A Source ART *NA* (07/18/2012 05:16:00) POC A Temp 37.0 DegC *NA* (07/18/2012 05:16:00) POC A pH [7.35-7.45] 7.49 *HI* (07/18/2012 05:16:00) POC A PCO2 [35-45 mmHg] 36 mmHg (07/18/2012 05:16:00) POC A PO2 [80-100 mmHg] 81 mmHg (07/18/2012 05:16:00) POC A HCO3 [22-26 mMol/L] 27 mMol/L *HI* (07/18/2012 05:16:00) POC A BE [-2-2 mMol/L] 4 mMol/L *HI* (07/18/2012 05:16:00) POC A O2 Sat [95.0-100.0 %] 97.0 % (07/18/2012 05:16:00) POC A Na [135-145 mEq/L] 133 mEq/L *LOW* (07/18/2012 05:16:00) POC A %FIO2 [18.0-100.0 %] 21.0 % (07/18/2012 05:16:00) 4Interpretive Data: Adult reference range values reflect the clinical guidelines of the [employer].5Interpretive Data: Adult reference range values reflect the clinical guidelines of the [place].6Interpretive Data: Adult reference range values reflect the clinical guidelines of the [place].7Result Comment: Critical Result(s) called to ya mckeon07/19/2012 05:04:48 CDT at _ by rahel. Read back OK.8Result Comment : Critical Result(s) called to hossein guillory at 07/17/2012 04:02:28 CDT bygavino. Read back OK.9Result Comment: [place] [id number] (busy line, 2x)07/16/2012 19:31:52 CDT, aamir guillory 07/16/2012 19:34:27 CDT by gissel. read back ok.10Result Comment: Critical Result(s) called to hossein guillory at 2011 04:01:26 CDT bygavino.Read back OK.11Result Comment: Critical Result(s) called to ESTEBAN GUILLORY at 07/16/2012 19:33:32 CDT by MANINDER. Read back OK.12Result Comment: Called to Stefani Hale at 07/16/2012 13:14:12 CDT called by dbf read back okHEMATOLOGY Most recent to oldest 1 2 3 [Reference Range]: WBC [3.7-10.4 K/CMM] 6.1 K/CMM 6.9 K/CMM 6.0 K/CMM (07/21/2012 04:45:00) (07/20/2012 03:46:00) (07/19/2012 03:50:00) RBC [4.20-5.40 M/CMM] 3.59 M/CMM 3.79 M/CMM 3.51 M/CMM *LOW* *LOW* *LOW* (07/21/2012 04:45:00) (07/20/2012 03:46:00) (07/19/2012 03:50:00) Hgb [12.0-16.0 g/dL] 10.7 g/dL 11.4 g/dL 10.5 g/dL *LOW* *LOW* *LOW* (07/21/2012 04:45:00) (07/20/2012 03:46:00) (07/19/2012 03:50:00) Hct [36.0-48.0 %] 32.0 % 34.2 % 30.9 % *LOW* *LOW* *LOW* (07/21/2012 04:45:00) (07/20/2012 03:46:00) (07/19/2012 03:50:00) MCV [81.0-99.0 fL] 89.1 fL 90.1 fL 88.0 fL (07/21/2012 04:45:00) (07/20/2012 03:46:00) (07/19/2012 03:50:00) MCH [27.0-31.0 pg] 29.9 pg 30.1 pg 29.9 pg (07/21/2012 04:45:00) (07/20/2012 03:46:00) (07/19/2012 03:50:00) MCHC [32.0-36.0 g/dL] 33.5 g/dL 33.4 g/dL 34.0 g/dL (07/21/2012 04:45:00) (07/20/2012 03:46:00) (07/19/2012 03:50:00) RDW [11.5-14.5 %] 14.5 % 14.8 % 14.7 % (07/21/2012 04:45:00) *HI* *HI* (07/20/2012 03:46:00) (07/19/2012 03:50:00) Platelet [133-450 K/CMM] 137 K/CMM 151 K/CMM 142 K/CMM (07/21/2012 04:45:00) (07/20/2012 03:46:00) (07/19/2012 03:50:00) MPV [7.4-10.4 fL] 8.4 fL 8.3 fL 8.4 fL (07/21/2012 04:45:00) (07/20/2012 03:46:00) (07/19/2012 03:50:00) Segs [45.0-75.0 %] 71.7 % 74.5 % 75.1 % (07/21/2012 04:45:00) (07/20/2012 03:46:00) *HI* (07/19/2012 03:50:00) Lymphocytes [20.0-40.0 %] 16.4 % 14.3 % 12.8 % *LOW* *LOW* *LOW* (07/21/2012 04:45:00) (07/20/2012 03:46:00) (07/19/2012 03:50:00) Monocytes [2.0-12.0 %] 8.8 % 7.3 % 7.8 % (07/21/2012 04:45:00) (07/20/2012 03:46:00) (07/19/2012 03:50:00) Eosinophils [0.0-4.0 %] 2.5 % 3.2 % 3.6 % (07/21/2012 04:45:00) (07/20/2012 03:46:00) (07/19/2012 03:50:00) Basophils [0.0-1.0 %] 0.6 % 0.7 % 0.7 % (07/21/2012 04:45:00) (07/20/2012 03:46:00) (07/19/2012 03:50:00) Segs-Bands # [1.5-8.1 4.3 K/CMM 5.2 K/CMM 4.5 K/CMM K/CMM] (07/21/2012 04:45:00) (07/20/2012 03:46:00) (07/19/2012 03:50:00) Lymphocytes # [1.0-5.5 1.0 K/CMM 1.0 K/CMM 0.8 K/CMM K/CMM] (07/21/2012 04:45:00) (07/20/2012 03:46:00) *LOW* (07/19/2012 03:50:00) Monocytes # [0.0-0.8 0.5 K/CMM 0.5 K/CMM 0.5 K/CMM K/CMM] (07/21/2012 04:45:00) (07/20/2012 03:46:00) (07/19/2012 03:50:00) Eosinophils # [0.0-0.5 0.2 K/CMM 0.2 K/CMM 0.2 K/CMM K/CMM] (07/21/2012 04:45:00) (07/20/2012 03:46:00) (07/19/2012 03:50:00) Basophils # [0.0-0.2 0.0 K/CMM 0.1 K/CMM 0.0 K/CMM K/CMM] (07/21/2012 04:45:00) (07/20/2012 03:46:00) (07/19/2012 03:50:00) PT [12.0-14.7 seconds] 14.0 seconds 13.2 seconds 13.3 seconds (07/21/2012 04:45:00) (07/20/2012 03:46:00) (07/19/2012 03:50:00) INR [0.85-1.17] 1.06 13 0.98 14 0.99 15 (07/21/2012 04:45:00) (07/20/2012 03:46:00) (07/19/2012 03:50:00) PTT [22.9-35.8 seconds] 34.5 seconds 16 31.8 seconds 17 34.9 seconds 18 (07/20/2012 03:46:00) (07/19/2012 03:50:00) (07/18/2012 03:29:00) 13Interpretive Data: RECOMMENDED RANGES FOR PROTIME INR: 2.0-3.0 for most medical and surgical thromboembolic states. 2.5-3.5 for artificial heart valves and recurrent embolism. INR SHOULD BE USED ONLY FOR PATIENTS ON STABLE ANTICOAGULANT THERAPY.14Interpretive Data: RECOMMENDED RANGES FOR PROTIME INR: 2.0-3.0 for most medical and surgical thromboembolic states. 2.5-3.5 for artificial heart valves and recurrent embolism. INR SHOULD BE USED ONLY FOR PATIENTS ON STABLE ANTICOAGULANT THERAPY.15Interpretive Data: RECOMMENDED RANGES FOR PROTIME INR: 2.0-3.0 for most medical and surgical thromboembolic states. 2.5-3.5 for artificial heart valves and recurrent embolism. INR SHOULD BE USED ONLY FOR PATIENTS ON STABLE ANTICOAGULANT THERAPY.16Interpretive Data: Heparin Therapeutic Range: 57 - 92 [id number] Data: Heparin Therapeutic Range: 57 - 92 [id number] Data: Heparin Therapeutic Range: 57 - 92 Seconds
--- OUTSIDE RECORDS SUMMARY | 2018-04-25 11:00 | XMS REPORT | CCD ---
:1935 Author Organization [facility] [place] Care Team Providers Name Role Phone Wagner Mora Consulting Provider Allergies, Adverse Reactions, Alerts Substance Reaction Status HYDROcodone-Pseudoephedrine HCl Active Problem List Condition Effective Dates Status CAD - Coronary artery disease Active DM - Diabetes mellitus Active Heart attack Active Laminectomy Active O/E - pain Active Stented artery Active Medications Medication Instructions Start Date End Date Status influenza virus vaccine, 0.5 ml, Route: IM, Drug 2012 2012 Completed inactivated Form: INJ, Start date: 07/15/12 9:00:00, Stop date: 07/15/12 9:00:00 pneumococcal 23-valent 0.5 ml, Route: IM, Drug 07/22/2012 07/22/2012 Completed vaccine Form: INJ, Start date: 07/22/12 9:00:00, Stop date: 07/22/12 9:00:00 Immunizations Vaccine Date Status influenza virus vaccine, inactivated 2012 Auth (Verified) pneumococcal 23-valent vaccine 07/22/2012 Not Done
--- OUTSIDE RECORDS SUMMARY | 2018-04-25 11:00 | XMS REPORT | CCD ---
:1935 Author Organization [facility] Care Team Providers Name Role Phone Tod Doran Consulting Provider Allergies, Adverse Reactions, Alerts Substance Reaction Status HYDROcodone-Pseudoephedrine HCl Active Problem List Condition Effective Dates Status CAD - Coronary artery disease Active DM - Diabetes mellitus Active Heart attack Active Laminectomy Active O/E - pain Active Stented artery Active Medications Medication Instructions Start Date End Date Status [place] 10/325 oral tablet 1 tab, PO, BID, PRN, 60 07/30/2012 Ordered tab, Pain, Substitution Allowed, Maintenance, TAB Protonix 40 mg oral 40 mg, 1 tab, PO, Before 07/30/2012 Ordered enteric coated tablet Dinner, 30 tab, Substitution Allowed, ECTAB warfarin 2 mg oral tablet 4 mg, 2 tab, PO, Q5PM, Goal INR 2- 2.5. Please check INR on Friday. Results to PCP, 30 tab, Substitution Allowed, TAB 2011 Ordered Goal INR 2- 2.5. Please check INR on Friday. Results to PCP magnesium oxide 400 mg 400 mg, 1 tab, PO, TID, 07/30/2012 Ordered oral tablet 90 tab, Substitution Allowed, TAB lisinopril 10 mg oral 10 mg, 1 tab, PO, Daily, 07/30/2012 Ordered tablet 30 tab, Substitution Allowed, TAB insulin glargine 100 20 unit, 0.2 mL, SUB-Q, 07/30/2012 Ordered units/mL subcutaneous Daily, 1 mL, solution Substitution Allowed, SOLN gabapentin 100 mg oral 100 mg, 1 cap, PO, Q8H, 07/30/2012 Ordered capsule 90 cap, Substitution Allowed, CAP clopidogrel 75 mg oral 75 mg, 1 tab, PO, Daily, 07/30/2012 Ordered tablet 30 tab, Substitution Allowed, TAB citalopram 10 mg oral 10 mg, 1 tab, PO, Daily, 07/30/2012 Ordered tablet 30 tab, Substitution Allowed, TAB Coreg 12.5 mg oral tablet 12.5 mg, 1 tab, PO, 07/30/2012 Ordered Q12H, 60 tab, Substitution Allowed, TAB influenza virus vaccine, 0.5 ml, Route: IM, Drug 2012 2012 Completed inactivated Form: INJ, Start date: 07/15/12 9:00:00, Stop date: 07/15/12 9:00:00 aspirin 81 mg tablet, 81 mg, 1 tab, PO, Daily, 07/30/2012 Ordered enteric coated 30 tab, Substitution Allowed, ECTAB Flexeril 5 mg, 0.5 tab, Route: 07/29/2012 07/31/2012 Discontinued PO, Drug form: TAB, QPM, Dosing Weight 86.364, kg, Start date: 07/29/12 17:00:00, Duration: 30 day, Stop date: 08/27/12 17:00:00 warfarin 5 mg, 1 tab, Route: PO, 07/29/2012 07/29/2012 Completed Drug form: TAB, ONCE, Dosing Weight 86.364, kg, Priority: NOW, Start date: 07/29/12 18:48:00, Stop date: 07/29/12 18:48:00 acetaminophen 325 mg, 1 tab, Route: 07/25/2012 07/31/2012 Discontinued PO, Drug form: TAB, BID-05-07, Dosing Weight 86.364, kg, Start date: 07/25/12 7:00:00, Duration: 30 day, Stop date: 08/23/12 12:00:00 warfarin 7.5 mg, 1 tab, Route: 07/22/2012 07/22/2012 Completed PO, Drug form: TAB, ONCE, Dosing Weight 86.364, kg, Start date: 07/22/12 17:24:00, Stop date: 07/22/12 17:24:00 Coumadin 7.5 mg, 1 tab, Route: 07/25/2012 07/25/2012 Completed PO, Drug form: TAB, ONCE, Dosing Weight 86.364, kg, Start date: 07/25/12 17:45:00, Stop date: 07/25/12 17:45:00 warfarin 7.5 mg, 1 tab, Route: 07/24/2012 07/24/2012 Completed PO, Drug form: TAB, Q5PM, Dosing Weight 86.364, kg, Start date: 07/24/12 17:00:00, Duration: 1 doses or times, Stop date: 07/24/12 17:00:00 Coumadin 7.5 mg, 1 tab, Route: 07/26/2012 07/26/2012 Completed PO, Drug form: TAB, Q5PM, Dosing Weight 86.364, kg, Start date: 07/26/12 17:00:00, Duration: 1 doses or times, Stop date: 07/26/12 17:00:00 pneumococcal 23-valent 0.5 ml, Route: IM, Drug 07/22/2012 07/22/2012 Completed vaccine Form: INJ, Daily, Start date: 07/22/12 9:00:00, Duration: 1 doses or times, Stop date: 07/22/12 9:00:00 aspirin 81 mg tablet, 81 mg, 1 tab, Route: PO, 07/30/2012 07/31/2012 Discontinued enteric coated Drug form: ECTAB, Daily, Start date: 07/30/12 8:00:00, Duration: 30 day, Stop date: 08/28/12 8:00:00 aspirin 325 mg tablet, 325 mg, 1 tab, Route: 07/29/2012 07/29/2012 Completed enteric coated PO, Drug form: ECTAB, ONCE, Start date: 07/29/12 22:30:00, Stop date: 07/29/12 22:30:00 nitroglycerin 0.4 mg 0.4 mg, 1 tab, Route: 07/21/2012 07/31/2012 Discontinued sublingual tablet SL, Drug form: TAB, Q5Min, Dosing Weight 67, kg, PRN Chest Pain, Start date: 07/21/12 14:58:00, Duration: 30 day, Stop date: 08/20/12 14:57:00 acetaminophen 650 mg, 2 tab, Route: 07/21/2012 07/31/2012 Discontinued PO, Drug form: TAB, Q6H, Dosing Weight 67, kg, PRN Pain, Start date: 07/21/12 14:57:00, Duration: 30 day, Stop date: 08/20/12 14:56:00 [place] 10/325 oral tablet 1 tab, Route: PO, Drug 07/21/2012 07/31/2012 Discontinued Form: TAB, Dosing Weight 67, kg, Q4H, PRN Pain, Start date: 07/21/12 14:56:00, Duration: 30 day, Stop date: 08/20/12 14:55:00 warfarin 7.5 mg, 1 tab, Route: 07/23/2012 07/23/2012 Completed PO, Drug form: TAB, Q5PM, Dosing Weight 86.364, kg, Start date: 07/23/12 17:00:00, Duration: 1 doses or times, Stop date: 07/23/12 17:00:00 pneumococcal 23-valent 0.5 ml, Route: IM, Drug 07/22/2012 07/22/2012 Completed vaccine Form: INJ, Start date: 07/22/12 9:00:00, Stop date: 07/22/12 9:00:00 gabapentin 100 mg, 1 cap, Route: 07/21/2012 07/31/2012 Discontinued PO, Drug form: CAP, Q8H, Dosing Weight 67, kg, Start date: 07/21/12 16:00:00, Duration: 30 day, Stop date: 08/20/12 8:00:00 warfarin 4 mg, 2 tab, Route: PO, 07/30/2012 07/30/2012 Completed Drug form: TAB, Q5PM, Dosing Weight 86.364, kg, Start date: 07/30/12 17:00:00, Duration: 1 doses or times, Stop date: 07/30/12 17:00:00 magnesium oxide 400 mg, 1 tab, Route: 07/21/2012 07/31/2012 Discontinued PO, Drug form: TAB, TID, Dosing Weight 67, kg, Start date: 07/21/12 17:00:00, Duration: 30 day, Stop date: 08/20/12 13:00:00 pravastatin 40 mg, 2 tab, Route: PO, 07/27/2012 07/31/2012 Discontinued Drug form: TAB, QPM, Dosing Weight 86.364, kg, Start date: 07/27/12 17:00:00, Duration: 30 day, Stop date: 08/25/12 17:00:00 docusate 100 mg, 1 cap, Route: 07/21/2012 07/31/2012 Discontinued PO, Drug form: CAP, BID, Dosing Weight 67, kg, Start date: 07/21/12 17:00:00, Duration: 30 day, Stop date: 08/20/12 9:00:00 Coumadin 7.5 mg, Route: PO, Drug 07/21/2012 07/21/2012 Discontinued form: TAB, Q5PM, Dosing Weight 67, kg, Start date: 07/21/12 17:00:00, Duration: 30 day, Stop date: 08/19/12 17:00:00 Protonix 40 mg, 1 tab, Route: PO, 07/21/2012 07/31/2012 Discontinued Drug form: ECTAB, Before Dinner, Dosing Weight 67, kg, Start date: 07/21/12 16:30:00, Duration: 30 day, Stop date: 08/19/12 16:30:00 lisinopril 10 mg, 1 tab, Route: PO, 07/22/2012 07/31/2012 Discontinued Drug form: TAB, Daily, Dosing Weight 67, kg, Start date: 07/22/12 9:00:00, Duration: 30 day, Stop date: 08/20/12 9:00:00 Dextrose 50% Syringe 25 gm, 50 mL, Route: 07/22/2012 07/31/2012 Discontinued IVP, Drug Form: INJ, Dosing Weight 86.364, kg, PRN, PRN Blood Glucose Results, Start date: 07/22/12 13:47:00, Duration: 30 day, Stop date: 08/21/12 13:46:00 Dextrose 50% Syringe 12.5 gm, 25 mL, Route: 07/22/2012 07/31/2012 Discontinued IVP, Drug Form: INJ, Dosing Weight 86.364, kg, PRN, PRN Blood Glucose Results, Start date: 07/22/12 13:47:00, Duration: 30 day, Stop date: 08/21/12 13:46:00 glucagon 1 mg, Route: IM, Drug 07/22/2012 07/31/2012 Discontinued form: PDR/INJ, PRN, Dosing Weight 86.364, kg, PRN Blood Glucose Results, Start date: 07/22/12 13:47:00, Duration: 30 day, Stop date: 08/21/12 13:46:00 Insulin regular 4 unit, 0.04 mL, Route: 07/22/2012 07/31/2012 Discontinued SUB-Q, Drug form: SOLN, Bedtime, Dosing Weight 86.364, kg, PRN Blood Glucose Results, Start date: 07/22/12 13:47:00, Duration: 30 day, Stop date: 08/21/12 13:46:00 Insulin regular 3 unit, 0.03 mL, Route: 07/22/2012 07/31/2012 Discontinued SUB-Q, Drug form: SOLN, Bedtime, Dosing Weight 86.364, kg, PRN Blood Glucose Results, Start date: 07/22/12 13:47:00, Duration: 30 day, Stop date: 08/21/12 13:46:00 Insulin regular 2 unit, 0.02 mL, Route: 07/22/2012 07/31/2012 Discontinued SUB-Q, Drug form: SOLN, Bedtime, Dosing Weight 86.364, kg, PRN Blood Glucose Results, Start date: 07/22/12 13:47:00, Duration: 30 day, Stop date: 08/21/12 13:46:00 Insulin regular 1 unit, 0.01 mL, Route: 07/22/2012 07/31/2012 Discontinued SUB-Q, Drug form: SOLN, Bedtime, Dosing Weight 86.364, kg, PRN Blood Glucose Results, Start date: 07/22/12 13:47:00, Duration: 30 day, Stop date: 08/21/12 13:46:00 Insulin regular 5 unit, 0.05 mL, Route: 07/22/2012 07/31/2012 Discontinued SUB-Q, Drug form: SOLN, TID-Before Meals, Dosing Weight 86.364, kg, PRN Blood Glucose Results, Start date: 07/22/12 13:47:00, Duration: 30 day, Stop date: 08/21/12 13:46:00 Insulin regular 4 unit, 0.04 mL, Route: 07/22/2012 07/31/2012 Discontinued SUB-Q, Drug form: SOLN, TID-Before Meals, Dosing Weight 86.364, kg, PRN Blood Glucose Results, Start date: 07/22/12 13:47:00, Duration: 30 day, Stop date: 08/21/12 13:46:00 Insulin regular 3 unit, 0.03 mL, Route: 07/22/2012 07/31/2012 Discontinued SUB-Q, Drug form: SOLN, TID-Before Meals, Dosing Weight 86.364, kg, PRN Blood Glucose Results, Start date: 07/22/12 13:47:00, Duration: 30 day, Stop date: 08/21/12 13:46:00 Insulin regular 2 unit, 0.02 mL, Route: 07/22/2012 07/31/2012 Discontinued SUB-Q, Drug form: SOLN, TID-Before Meals, Dosing Weight 86.364, kg, PRN Blood Glucose Results, Start date: 07/22/12 13:47:00, Duration: 30 day, Stop date: 08/21/12 13:46:00 Insulin regular 1 unit, 0.01 mL, Route: 07/22/2012 07/31/2012 Discontinued SUB-Q, Drug form: SOLN, TID-Before Meals, Dosing Weight 86.364, kg, PRN Blood Glucose Results, Start date: 07/22/12 13:47:00, Duration: 30 day, Stop date: 08/21/12 13:46:00 warfarin 4 mg, 2 tab, Route: PO, 07/31/2012 07/31/2012 Canceled Drug form: TAB, Q5PM, Dosing Weight 86.364, kg, Start date: 07/31/12 17:00:00, Duration: 1 doses or times, Stop date: 07/31/12 17:00:00 insulin glargine 20 unit, 0.2 mL, Route: 07/22/2012 07/31/2012 Discontinued SUB-Q, Drug form: INJ, Daily, Dosing Weight 67, kg, Start date: 07/22/12 9:00:00, Duration: 30 day, Stop date: 08/20/12 9:00:00 clopidogrel 75 mg, 1 tab, Route: PO, 07/22/2012 07/31/2012 Discontinued Drug form: TAB, Daily, Dosing Weight 67, kg, Start date: 07/22/12 9:00:00, Duration: 30 day, Stop date: 08/20/12 9:00:00 citalopram 10 mg, 1 tab, Route: PO, 07/22/2012 07/31/2012 Discontinued Drug form: TAB, Daily, Dosing Weight 67, kg, Start date: 07/22/12 9:00:00, Duration: 30 day, Stop date: 08/20/12 9:00:00 Coreg 12.5 mg, 1 tab, Route: 07/21/2012 07/31/2012 Discontinued PO, Drug form: TAB, Q12H, Dosing Weight 67, kg, Start date: 07/21/12 21:00:00, Stop date: 08/20/12 9:00:00 atorvastatin 80 mg, 1 tab, Route: PO, 07/21/2012 07/27/2012 Discontinued Drug form: TAB, Bedtime, Dosing Weight 67, kg, Start date: 07/21/12 17:00:00, Duration: 30 day, Stop date: 08/19/12 21:00:00 aspirin 325 mg tablet 325 mg, 1 tab, Route: 07/22/2012 07/31/2012 Discontinued PO, Drug form: TAB, Daily, Dosing Weight 67, kg, Start date: 07/22/12 9:00:00, Duration: 30 day, Stop date: 08/20/12 9:00:00 pravastatin 20 mg oral 40 mg, 2 tab, PO, QPM, 07/30/2012 Ordered tablet 60 tab, Substitution Allowed, TAB Flexeril 10 mg oral tablet 5 mg, 0.5 tab, PO, QPM, 07/30/2012 Ordered 30 tab, Substitution Allowed, TAB Immunizations Vaccine Date Status influenza virus vaccine, inactivated 2012 Auth (Verified) pneumococcal 23-valent vaccine 07/22/2012 Not Done Vital Signs Most recent to oldest 1 2 3 [Reference Range]: Height 162.56 cm (07/21/2012 20:09:00) Temperature Oral 98.3 DegF 99.2 DegF 99.0 DegF [96.4-99.1 DegF] (07/31/2012 06:24:00) *HI* (07/30/2012 20:30:00) (07/30/2012 21:33:00) Systolic Blood Pressure 108 mmHg 112 mmHg 113 mmHg [90-140 mmHg] (07/31/2012 08:50:00) (07/31/2012 06:24:00) (07/30/2012 21:33: 00) Diastolic Blood Pressure 60 mmHg 68 mmHg 69 mmHg [60-90 mmHg] (07/31/2012 08:50:00) (07/30/2012 21:33:00) (07/30/2012 20:30: 00) Respiratory Rate [14-20 20 BRMIN 20 BRMIN 20 BRMIN BRMIN] (07/31/2012 06:24:00) (07/30/2012 21:33:00) (07/30/2012 20:30:00) Peripheral Pulse Rate 86 bpm 83 bpm 89 bpm [60-100 bpm] (07/31/2012 08:50:00) (07/31/2012 06:24:00) (07/30/2012 21:33: 00) Weight 86.364 kg (07/21/2012 20:09:00) Results BEDSIDE GLUCOSE TESTING Most recent to [facility] 1 2 3 [Reference Range]: Gluc POC [place] [70-99 148 mg/dL 1 192 mg/dL 2 106 mg/dL 3 mg/dL] *HI* *HI* *HI* (07/31/2012 06:05:00) (07/30/2012 21:33:00) (07/30/2012 16:55:00) Comment1 Notify RN/MD Notify RN/MD Notify RN/MD *NA* *NA* *NA* (07/31/2012 06:05:00) (07/30/2012 21:33:00) (07/30/2012 06:04:00) 1Interpretive Data: Upper Reportable Limit: 200 mg/dL.2Interpretive Data: Upper Reportable Limit: 200 mg/dL.3Interpretive Data: Upper Reportable Limit: 200 mg/dL.URINALYSIS Most recent to [facility] [Reference Range]: 1 2 3 UA Turbidity [Clear] Slight *ABN* (07/21/2012 20:17:00) UA Color [Yellow] Yellow *NA* (07/21/2012 20:17:00) UA pH [5.0-8.0] 6.5 (07/21/2012 20:17:00) UA Spec Grav [<=1.030] 1.011 (07/21/2012 20:17:00) UA Glucose [Negative mg/dL] Negative mg/dL *NA* (07/21/2012 20:17:00) UA Blood [Negative] Negative (07/21/2012 20:17:00) UA Ketones [Negative mg/dL] Negative mg/dL *NA* (07/21/2012 20:17:00) UA Protein [Negative mg/dL] Negative mg/dL (07/21/2012 20:17:00) UA Urobilinogen [0.1-1.0 mg/dL] 2.0 mg/dL *HI* (07/21/2012 20:17:00) UA Bili [Negative] Negative *NA* (07/21/2012 20:17:00) UA Leuk Est [Negative] Large *ABN* (07/21/2012 20:17:00) UA Nitrite [Negative] Negative (07/21/2012 20:17:00) UA WBC [0-5 /HPF] 78 /HPF *HI* (07/21/2012 20:17:00) UA RBC [0-2 /HPF] 2 /HPF (07/21/2012 20:17:00) UA Bacteria [None Seen /HPF] Few /HPF *NA* (07/21/2012 20:17:00) UA Sq Epi [Few /LPF] Many /LPF *ABN* (07/21/2012 20:17:00) UA Hyal Cast [0-2 /LPF] 3 /LPF *HI* (07/21/2012 20:17:00) UA [place] Yeast [None Seen /HPF] Occasional /HPF *ABN* (07/21/2012 20:17:00) CHEMISTRY Most recent to oldest 1 2 3 [Reference Range]: Sodium Lvl [135-145 mEq/L] 144 mEq/L 143 mEq/L 139 mEq/L (07/29/2012 06:15:00) (07/27/2012 04:54:00) (07/22/2012 05:44:00) Potassium Lvl [3.5-5.1 4.2 mEq/L 4.3 mEq/L 4.2 mEq/L mEq/L] (07/29/2012 06:15:00) (07/27/2012 04:54:00) (07/22/2012 05:44:00) Chloride Lvl [95-109 mEq/L] 108 mEq/L 105 mEq/L 102 mEq/L (07/29/2012 06:15:00) (07/27/2012 04:54:00) (07/22/2012 05:44:00) CO2 [24-32 mEq/L] 26 mEq/L 26 mEq/L 27 mEq/L (07/29/2012 06:15:00) (07/27/2012 04:54:00) (07/22/2012 05:44:00) AGAP [10.0-20.0 mEq/L] 14.2 mEq/L 16.3 mEq/L 14.2 mEq/L (07/29/2012 06:15:00) (07/27/2012 04:54:00) (07/22/2012 05:44:00) Creatinine Lvl [0.5-1.4 0.9 mg/dL 0.8 mg/dL 1.0 mg/dL mg/dL] (07/29/2012 06:15:00) (07/27/2012 04:54:00) (07/22/2012 05:44:00) BUN [7-22 mg/dL] 17 mg/dL 14 mg/dL 15 mg/dL (07/29/2012 06:15:00) (07/27/2012 04:54:00) (07/22/2012 05:44:00) B/C Ratio [6-25] 15 (07/22/2012 05:44:00) Glucose Lvl [70-99 mg/dL] 143 mg/dL 4 152 mg/dL 5 158 mg/dL 6 *HI* *HI* *HI* (07/29/2012 06:15:00) (07/27/2012 04:54:00) (07/22/2012 05:44:00) Total Protein [6.4-8.4 6.3 g/dL g/dL] *LOW* (07/22/2012 05:44:00) Albumin Lvl [3.5-5.0 g/dL] 2.9 g/dL *LOW* (07/22/2012 05:44:00) Globulin [2.0-4.0 g/dL] 3.4 g/dL (07/22/2012 05:44:00) A/G Ratio [0.7-1.6] 0.9 (07/22/2012 05:44:00) Calcium Lvl [8.5-10.5 9.2 mg/dL 8.8 mg/dL 9.1 mg/dL mg/dL] (07/29/2012 06:15:00) (07/27/2012 04:54:00) (07/22/2012 05:44:00) Phosphorus [2.5-4.5 mg/dL] 3.4 mg/dL (07/22/2012 05:44:00) Magnesium Lvl [1.8-2.4 1.5 mg/dL mg/dL] *LOW* (07/22/2012 05:44:00) ALT [0-65 unit/L] 18 unit/L (07/22/2012 05:44:00) AST [0-37 unit/L] 15 unit/L (07/22/2012 05:44:00) Alk Phos [39-136 unit/L] 82 unit/L (07/22/2012 05:44:00) Bili Total [0.2-1.3 mg/dL] 0.5 mg/dL (07/22/2012 05:44:00) Total CK [12-191 unit/L] 75 unit/L (07/27/2012 11:11:00) CHD Risk [3.90-5.80] 2.65 *LOW* (07/27/2012 04:54:00) Chol [120-200 mg/dL] 98 mg/dL *LOW* (07/27/2012 04:54:00) Trig [0-200 mg/dL] 123 mg/dL (07/27/2012 04:54:00) HDL [>=35 mg/dL] 37 mg/dL (07/27/2012 04:54:00) LDL [0-129 mg/dL] 36 mg/dL (07/27/2012 04:54:00) 4Interpretive Data: Adult reference range values reflect the clinical guidelines of the [place] [employer].5Interpretive Data: Adult reference range values reflect the clinical guidelines of the [place] [employer].6Interpretive Data: Adult reference range values reflect the clinical guidelines of the [place] [employer].HEMATOLOGY Most recent to oldest 1 2 3 [Reference Range]: WBC [3.7-10.4 K/CMM] 5.4 K/CMM 4.0 K/CMM 3.4 K/CMM (07/30/2012 14:00:00) (07/29/2012 20:05:00) *LOW* (07/29/2012 06:15:00) RBC [4.20-5.40 M/CMM] 3.68 M/CMM 3.50 M/CMM 3.45 M/CMM *LOW* *LOW* *LOW* (07/30/2012 14:00:00) (07/29/2012 20:05:00) (07/29/2012 06:15:00) Hgb [12.0-16.0 g/dL] 11.0 g/dL 10.5 g/dL 10.4 g/dL *LOW* *LOW* *LOW* (07/30/2012 14:00:00) (07/29/2012 20:05:00) (07/29/2012 06:15:00) Hct [36.0-48.0 %] 32.9 % 31.1 % 30.7 % *LOW* *LOW* *LOW* (07/30/2012 14:00:00) (07/29/2012 20:05:00) (07/29/2012 06:15:00) MCV [81.0-99.0 fL] 89.6 fL 89.0 fL 88.9 fL (07/30/2012 14:00:00) (07/29/2012 20:05:00) (07/29/2012 06:15:00) MCH [27.0-31.0 pg] 30.0 pg 30.0 pg 30.3 pg (07/30/2012 14:00:00) (07/29/2012 20:05:00) (07/29/2012 06:15:00) MCHC [32.0-36.0 g/dL] 33.5 g/dL 33.8 g/dL 34.0 g/dL (07/30/2012 14:00:00) (07/29/2012 20:05:00) (07/29/2012 06:15:00) RDW [11.5-14.5 %] 16.1 % 15.4 % 15.3 % *HI* *HI* *HI* (07/30/2012 14:00:00) (07/29/2012 20:05:00) (07/29/2012 06:15:00) Platelet [133-450 94 K/CMM 81 K/CMM 76 K/CMM K/CMM] *LOW* *LOW* *LOW* (07/30/2012 14:00:00) (07/29/2012 20:05:00) (07/29/2012 06:15:00) MPV [7.4-10.4 fL] 9.5 fL 9.2 fL 8.9 fL (07/30/2012 14:00:00) (07/29/2012 20:05:00) (07/29/2012 06:15:00) Segs [45.0-75.0 %] 65.5 % 60.6 % 54.6 % (07/30/2012 14:00:00) (07/29/2012 20:05:00) (07/29/2012 06:15:00) Lymphocytes [20.0-40.0 19.2 % 23.7 % 28.6 % %] *LOW* (07/29/2012 20:05:00) (07/29/2012 06:15:00) (07/30/2012 14:00:00) Monocytes [2.0-12.0 %] 10.5 % 11.9 % 12.4 % (07/30/2012 14:00:00) (07/29/2012 20:05:00) *HI* (07/29/2012 06:15:00) Eosinophils [0.0-4.0 %] 4.1 % 3.2 % 3.8 % *HI* (07/29/2012 20:05:00) (07/29/2012 06:15:00) (07/30/2012 14:00:00) Basophils [0.0-1.0 %] 0.7 % 0.6 % 0.6 % (07/30/2012 14:00:00) (07/29/2012 20:05:00) (07/29/2012 06:15:00) Segs-Bands # [1.5-8.1 3.5 K/CMM 2.4 K/CMM 1.9 K/CMM K/CMM] (07/30/2012 14:00:00) (07/29/2012 20:05:00) (07/29/2012 06:15:00) Lymphocytes # [1.0-5.5 1.0 K/CMM 1.0 K/CMM 1.0 K/CMM K/CMM] (07/30/2012 14:00:00) (07/29/2012 20:05:00) (07/29/2012 06:15:00) Monocytes # [0.0-0.8 0.6 K/CMM 0.5 K/CMM 0.4 K/CMM K/CMM] (07/30/2012 14:00:00) (07/29/2012 20:05:00) (07/29/2012 06:15:00) Eosinophils # [0.0-0.5 0.2 K/CMM 0.1 K/CMM 0.1 K/CMM K/CMM] (07/30/2012 14:00:00) (07/29/2012 20:05:00) (07/29/2012 06:15:00) Basophils # [0.0-0.2 0.0 K/CMM 0.0 K/CMM 0.0 K/CMM K/CMM] (07/30/2012 14:00:00) (07/29/2012 20:05:00) (07/29/2012 06:15:00) PB Smear Path Peripheral blood smear shows hypochromic anemia with anisopoikilocytsosis, a few elliptocytes, no increase in schistocytes, slight polychromasia, mild thrombocytopenia. Impression: (1) no evidence of mi croangiopathic hemolysis, (2) RBC morphology is sugestive of iron deficiency anemia vs. anemia of chronic disease. CPT: 56120 *NA* (07/30/2012 14:00:00) PT [12.0-14.7 seconds] 19.4 seconds 18.3 seconds 19.4 seconds *HI* *HI* *HI* (07/31/2012 06:15:00) (07/30/2012 06:08:00) (07/29/2012 20:05:00) INR [0.85-1.17] 1.62 7 1.50 8 1.62 9 *HI* *HI* *HI* (07/31/2012 06:15:00) (07/30/2012 06:08:00) (07/29/2012 20:05:00) PTT [22.9-35.8 seconds] 40.0 seconds 10 43.9 seconds 11 38.5 seconds 12 *HI* *HI* *HI* (07/29/2012 20:05:00) (07/24/2012 04:50:00) (07/22/2012 05:44:00) 7Interpretive Data: RECOMMENDED RANGES FOR PROTIME INR: 2.0-3.0 for most medical and surgical thromboembolic states. 2.5-3.5 for artificial heart valves and recurrent embolism. INR SHOULD BE USED ONLY FOR PATIENTS ON STABLE ANTICOAGULANT THERAPY.8Interpretive Data: RECOMMENDED RANGES FOR PROTIME INR: 2.0-3.0 for most medical and surgical thromboembolic states. 2.5-3.5 for artificial heart valves and recurrent embolism. INR SHOULD BE USED ONLY FOR PATIENTS ON STABLE ANTICOAGULANT THERAPY.9Interpretive Data: RECOMMENDED RANGES FOR PROTIME INR: 2.0-3.0 for most medical and surgical thromboembolic states. 2.5-3.5 for artificial heart valves and recurrent embolism. INR SHOULD BE USED ONLY FOR PATIENTS ON STABLE ANTICOAGULANT THERAPY.10Interpretive Data: Heparin Therapeutic Range: 57 - 92 [id number] Data: Heparin Therapeutic Range: 57 - 92 [id number] Data: Heparin Therapeutic Range: 57 - 92 SecondsIMMUNOLOGY Most recent to oldest [Reference Range]: 1 2 3 Hep Bs Ag [Negative] Negative *NA* (07/29/2012 20:05:00) Hep B Core IgM [Negative] Negative *NA* (07/29/2012 20:05:00) Hep A IgM [Negative] Negative *NA* (07/29/2012 20:05:00) Hep C Ab [Negative] Negative *NA* (07/29/2012 20:05:00) Microbiology Reports PROCEDURE:Culture: Urine STATUS: Auth (Verified) BODY SITE: COLLECTED DATE/TIME: 07/21/2012 20:17:00 SOURCE: Urine, Catheterized FREE TEXT SOURCE: FINAL REPORTS Final Report>10,000/cfu/ml Hafnia alvei <1000/cfu/ml Gram Negative Rods, Lactose Fermenters 1000-10,000/cfu/ml Skin NegarPRELIMINARY REPORTS Preliminary Report> 10,000/cfu/ml Gram Negative Rods, Non-Lactose Fermenters , Identification And Sensitivity Pending Preliminary Report>10,000/cfu/ml Gram Negative Rods, Non-Lactose Fermenters , Identification And Sensitivity Pending SUSCEPTIBILITY REPORT HAFALV Antibiotic INTERP. VDIL Amikacin S Aztreonam S Cefepime S Ceftriaxone S Ciprofloxacin S Gentamicin S Levofloxacin S Meropenem S Nitrofurantoin S Tetracycline S Tobramycin S Trimethoprim/Sulfamethoxazole S
--- OUTSIDE RECORDS SUMMARY | 2018-04-25 11:01 | XMS REPORT | CCD ---
:1935 Author Organization [facility] Care Team Providers Name Role Phone Gautam, [place] Juan Referring Provider Allergies, Adverse Reactions, Alerts Substance Reaction Status HYDROcodone-Pseudoephedrine HCl Active Problem List Condition Effective Dates Status Breast biopsy and related procedures Resolved CAD - Coronary artery disease Active CAD - Coronary artery disease Resolved Cataract Resolved DM - Diabetes mellitus Active Heart attack Active Laminectomy Active Lumbar region injury Resolved O/E - pain Active Stented artery Active Medications Medication Instructions Start Date End Date Status gabapentin 100 mg oral 100 mg, 1 cap, Route: 01/19/2013 01/20/2013 Discontinued capsule PO, Drug form: CAP, Q8H, Dosing Weight 81.818, kg, Start date: 01/19/13 16:00:00, Duration: 30 day, Stop date: 02/18/13 8:00:00 cyclobenzaprine 5 mg, 0.5 tab, Route: 01/19/2013 01/20/2013 Discontinued PO, Drug form: TAB, QPM, Dosing Weight 81.818, kg, Start date: 01/19/13 17:00:00, Duration: 30 day, Stop date: 02/17/13 17:00:00 influenza virus vaccine, 0.5 ml, Route: IM, Drug 2012 2012 Completed inactivated Form: INJ, Start date: 07/15/12 9:00:00, Stop date: 07/15/12 9:00:00 clopidogrel 75 mg, 1 tab, Route: 01/20/2013 01/20/2013 Discontinued PO, Drug form: TAB, Daily, Dosing Weight 81.818, kg, Start date: 01/20/13 9:00:00, Duration: 30 day, Stop date: 02/18/13 9:00:00 citalopram 10 mg, 1 tab, Route: 01/20/2013 01/20/2013 Discontinued PO, Drug form: TAB, Daily, Dosing Weight 81.818, kg, Start date: 01/20/13 9:00:00, Duration: 30 day, Stop date: 02/18/13 9:00:00 Coreg 12.5 mg, 1 tab, Route: 01/19/2013 01/20/2013 Discontinued PO, Drug form: TAB, BID, Dosing Weight 81.818, kg, Start date: 01/19/13 17:00:00, Duration: 30 day, Stop date: 02/18/13 9:00:00 NovoLog FlexPen Per Sliding Scale, 01/19/2013 Ordered SUB-Q, Before Breakfast, Substitution Allowed, INJ aspirin 81 mg tablet, 81 mg, 1 tab, Route: 01/20/2013 01/20/2013 Discontinued enteric coated PO, Drug form: ECTAB, Daily, Dosing Weight 81.818, kg, Start date: 01/20/13 9:00:00, Duration: 30 day, Stop date: 02/18/13 9:00:00 cyclobenzaprine 5 mg oral 5 mg, 1 tab, PO, QPM, 01/19/2013 Ordered tablet Substitution Allowed, TAB aspirin 81 mg tablet, 81 mg, 1 tab, PO, 01/19/2013 Ordered enteric coated Daily, 0 tab, Substitution Allowed, ECTAB gabapentin 100 mg oral 100 mg, 1 cap, PO, Q8H, 01/19/2013 Ordered capsule Substitution Allowed, CAP glimepiride 4 mg oral 4 mg, 1 tab, PO, BID, 01/19/2013 Ordered tablet 30 tab, Substitution Allowed, TAB warfarin 5 mg oral tablet 5 mg, 1 tab, PO, Daily, 01/19/2013 01/20/2013 Discontinued 30 tab, Substitution Allowed, TAB pravastatin 20 mg oral 20 mg, 1 tab, PO, 01/19/2013 Ordered tablet Daily, 30 tab, Substitution Allowed, TAB clopidogrel 75 mg oral 75 mg, 1 tab, PO, 01/19/2013 Ordered tablet Daily, 30 tab, Substitution Allowed, TAB citalopram 10 mg oral 10 mg, 1 tab, PO, 01/19/2013 Ordered tablet Daily, 30 tab, Substitution Allowed, TAB [place] 5/325 oral tablet 1 tab, Route: PO, Drug 01/19/2013 01/20/2013 Discontinued Form: TAB, Dosing Weight 81.818, kg, Q4H, PRN Pain, Start date: 01/19/13 18:24:00, Duration: 30 day, Stop date: 02/18/13 18:23:00 magnesium sulfate 2 gm in 2 gm, 50 mL, Route: 01/19/2013 01/19/2013 Completed Water 50 ml IVPB, Drug form: INJ, ONCE, Dosing Weight 81.818, kg, Priority: STAT, Start date: 01/19/13 11:26:00, Duration: 2 hr, Stop date: 01/19/13 11:26:00 magnesium sulfate 2 gm, 50 mL, Route: 01/20/2013 01/20/2013 Discontinued IVPB, Drug form: INJ, ONCE, Dosing Weight 81.818, kg, Total dose=2 gm, Start date: 01/20/13 9:34:00, Duration: 1 doses or times, Stop date: 01/20/13 9:34:00 Protonix 40 mg oral enteric 40 mg, 1 tab, PO, 01/19/2013 Ordered coated tablet Daily, 30 tab, Substitution Allowed, ECTAB Coreg 12.5 mg oral tablet 12.5 mg, 1 tab, PO, 01/19/2013 Ordered BID, 180 tab, Substitution Allowed, TAB pneumococcal 23-valent 0.5 ml, Route: IM, Drug 07/22/2012 07/22/2012 Completed vaccine Form: INJ, Start date: 07/22/12 9:00:00, Stop date: 07/22/12 9:00:00 Saline Flush 0.9% 5 ml, Route: IVP, Drug 01/19/2013 01/20/2013 Discontinued Form: INJ, Dosing Weight 81.818, kg, Q12H, Start date: 01/19/13 21:00:00, Duration: 30 day, Stop date: 02/18/13 9:00:00 Saline Flush 0.9% 5 ml, Route: IVP, Drug 01/19/2013 01/20/2013 Discontinued Form: INJ, Dosing Weight 81.818, kg, PRN, PRN Line Flush, Start date: 01/19/13 11:05:00, Duration: 30 day, Stop date: 02/18/13 11:04:00 ondansetron 4 mg, 2 mL, Route: IVP, 01/19/2013 01/20/2013 Discontinued Drug form: INJ, Q8H, Dosing Weight 81.818, kg, PRN Nausea & Vomiting, Start date: 01/19/13 11:05:00, Duration: 30 day, Stop date: 02/18/13 11:04:00 acetaminophen 325 mg, 1 tab, Route: 01/19/2013 01/20/2013 Discontinued PO, Drug form: TAB, Q4H, Dosing Weight 81.818, kg, PRN Pain Score 4-6, Start date: 01/19/13 11:05:00, Duration: 30 day, Stop date: 02/18/13 11:04:00 acetaminophen 650 mg, 20.3 mL, Route: 01/19/2013 01/19/2013 Discontinued PO, Drug form: LIQ, Q4H, Dosing Weight 81.818, kg, PRN Pain Score 7-10, Start date: 01/19/13 11:05:00, Duration: 30 day, Stop date: 02/18/13 11:04:00 cefazolin (SCIP) 1 gm, Route: IVPB, Drug 01/19/2013 01/20/2013 Completed form: PDR/INJ, Q8H, Dosing Weight 81.818, kg, Start date: 01/19/13 17:00:00, Duration: 3 doses or times, Stop date: 01/20/13 9:00:00 Keflex 500 mg oral capsule 500 mg, 1 cap, PO, Q8H, 01/20/2013 Ordered 9 cap, Substitution Allowed glimepiride 4 mg, 1 tab, Route: PO, 01/19/2013 01/20/2013 Discontinued Drug form: TAB, BID, Dosing Weight 81.818, kg, Start date: 01/19/13 17:00:00, Duration: 30 day, Stop date: 02/18/13 9:00:00 [place] 5/325 oral tablet 1 tab, PO, Q4H, PRN, 20 01/20/2013 Ordered tab, Pain, Substitution Allowed, Maintenance, TAB magnesium sulfate 4 gm, 100 mL, Route: 01/19/2013 01/19/2013 Completed IV, Drug form: INJ, ONCE, Dosing Weight 81.818, kg, stat, Start date: 01/19/13 7:29:00, Stop date: 01/19/13 7:29:00 pravastatin 20 mg, 1 tab, Route: 01/20/2013 01/20/2013 Discontinued PO, Drug form: TAB, Daily, Dosing Weight 81.818, kg, Start date: 01/20/13 9:00:00, Duration: 30 day, Stop date: 02/18/13 9:00:00 lisinopril 40 mg oral 40 mg, 1 tab, PO, 01/19/2013 Ordered tablet Daily, 30 tab, Substitution Allowed, TAB magnesium sulfate 4 gm, 100 mL, Route: 01/20/2013 01/20/2013 Ordered IVPB, Drug form: INJ, ONCE, Dosing Weight 81.818, kg, Total dose=4 gm, Start date: 01/20/13 9:40:00, Stop date: 01/20/13 9:40:00 Tylenol 650 mg, 2 tab, Route: 01/19/2013 01/20/2013 Discontinued PO, Drug form: TAB, Q4H, Dosing Weight 81.818, kg, PRN Pain, Start date: 01/19/13 18:16:00, Duration: 30 day, Stop date: 02/18/13 18:15:00 Protonix 40 mg, 1 tab, Route: 01/20/2013 01/20/2013 Discontinued PO, Drug form: ECTAB, Daily, Dosing Weight 81.818, kg, Start date: 01/20/13 9:00:00, Duration: 30 day, Stop date: 02/18/13 9:00:00 lisinopril 40 mg, 2 tab, Route: 01/20/2013 01/20/2013 Discontinued PO, Drug form: TAB, Daily, Dosing Weight 81.818, kg, Start date: 01/20/13 9:00:00, Duration: 30 day, Stop date: 02/18/13 9:00:00 Saline Flush 0.9% 5 ml, Route: IVP, Drug 01/19/2013 01/19/2013 Discontinued Form: INJ, Dosing Weight 81.818, kg, Q12H, Start date: 01/19/13 9:00:00, Duration: 30 day, Stop date: 02/17/13 21:00:00 Saline Flush 0.9% 5 ml, Route: IVP, Drug 01/19/2013 01/19/2013 Discontinued Form: INJ, Dosing Weight 81.818, kg, PRN, PRN Line Flush, Start date: 01/19/13 6:11:00, Duration: 30 day, Stop date: 02/18/13 6:10:00 Immunizations Vaccine Date Status influenza virus vaccine, inactivated 2012 Auth (Verified) pneumococcal 23-valent vaccine 07/22/2012 Not Done Vital Signs Most recent to oldest 1 2 3 [Reference Range]: Height 165.1 cm (01/19/2013 06:06:00) Temperature Oral 98.2 DegF 98.2 DegF 97.7 DegF [96.4-99.1 DegF] (01/20/2013 07:30:00) (01/19/2013 19:00:00) (01/19/2013 06: 30:00) Systolic Blood Pressure 163 mmHg 154 mmHg 172 mmHg [90-140 mmHg] *HI* *HI* *HI* (01/20/2013 07:30:00) (01/20/2013 03:00:00) (01/20/2013 00:00:00) Diastolic Blood Pressure 88 mmHg 93 mmHg 78 mmHg [60-90 mmHg] (01/20/2013 07:30:00) *HI* (01/20/2013 00:00:00) (01/20/2013 03:00:00) Respiratory Rate [14-20 12 BRMIN 12 BRMIN 12 BRMIN BRMIN] *LOW* *LOW* *LOW* (01/19/2013 18:00:00) (01/19/2013 17:00:00) (01/19/2013 16:00:00) Weight 81.818 kg (01/19/2013 06:06:00) Results BLOOD BANK RESULTS Most recent to oldest [Reference Range]: 1 2 ABO/Rh O NEG *Unknown* (01/19/2013 06:26:48) Antibody Scrn Negative (01/19/2013 06:26:48) CHEMISTRY Most recent to oldest [Reference 1 2 Range]: Sodium Lvl [135-145 mEq/L] 138 mEq/L 141 mEq/L (01/20/2013 04:42:00) (01/19/2013 06:13:00) Potassium Lvl [3.5-5.1 mEq/L] 4.5 mEq/L 4.1 mEq/L (01/20/2013 04:42:00) (01/19/2013 06:13:00) Chloride Lvl [95-109 mEq/L] 106 mEq/L 106 mEq/L (01/20/2013 04:42:00) (01/19/2013 06:13:00) CO2 [24-32 mEq/L] 28 mEq/L 29 mEq/L (01/20/2013 04:42:00) (01/19/2013 06:13:00) AGAP [10.0-20.0 mEq/L] 8.5 mEq/L 10.1 mEq/L *LOW* (01/19/2013 06:13:00) (01/20/2013 04:42:00) Creatinine Lvl [0.5-1.4 mg/dL] 1.2 mg/dL 1.2 mg/dL (01/20/2013:42:00) (01/19/2013 06:13:00) eGFR 44 mL/min/1.73m2 1 44 mL/min/1.73m2 2 *NA* *NA* (01/20/2013 04:42:00) (01/19/2013 06:13:00) BUN [7-22 mg/dL] 18 mg/dL 22 mg/dL (01/20/2013 04:42:00) (01/19/2013 06:13:00) Glucose Lvl [70-99 mg/dL] 182 mg/dL 3 78 mg/dL 4 *HI* (01/19/2013 06:13:00) (01/20/2013 04:42:00) Calcium Lvl [8.5-10.5 mg/dL] 9.4 mg/dL 9.5 mg/dL (01/20/2013 04:42:00) (01/19/2013 06:13:00) Magnesium Lvl [1.8-2.4 mg/dL] 1.6 mg/dL 1.4 mg/dL *LOW* *LOW* (01/20/2013 04:42:00) (01/19/2013 06:13:00) 1Result Comment: The eGFR is calculated using the CKD-EPI formula. In most young , healthy individualsthe eGFR will be >90 mL/min/1.73m2. The eGFR declines with age. An eGFR of 60-89 may be normal in some populations, particularly the elderly, for whom the CKD-EPI formula has not been extensively validated. Use of the eGFR is not recommended in the following populations: Individuals with unstable creatinine concentrations, including patients and those with serious co-morbid conditions. Patients with extremes in muscle mass or diet. The data above are obtained from the National Kidney Disease Education Program ( NKDEP) which additionally recommends that when the eGFR is used in patients with extremes of body mass index for purposesof drug dosing, the eGFR should be multiplied by the estimated BMI.2Result Comment: The eGFR is calculated using the CKD-EPI formula. In most young, healthy individualsthe eGFR will be >90 mL/ min/1.73m2. The eGFR declines with age. An eGFR of 60-89 may be normal in some populations, particularly the elderly, for whom the CKD-EPI formula has not been extensively validated. Use of the eGFR is not recommended in the following populations: Individuals with unstable creatinine concentrations, including patients and those with serious co-morbid conditions. Patients with extremes in muscle mass or diet. The data above are obtained from the National Kidney Disease Education Program ( NKDEP) which additionally recommends that when the eGFR is used in patients with extremes of body mass index for purposesof drug dosing, the eGFR should be multiplied by the estimated BMI.3Interpretive Data: Adult reference range values reflect the clinical guidelines of the [place] [employer].4Interpretive Data: Adult reference range values reflect the clinical guidelines of the [place] [employer].HEMATOLOGY Most recent to oldest [Reference 1 2 Range]: WBC [3.7-10.4 K/CMM] 7.0 K/CMM 5.7 K/CMM (01/20/2013 04:42:00) (01/19/2013 06:13:00) RBC [4.20-5.40 M/CMM] 4.81 M/CMM 4.97 M/CMM (01/20/2013 04:42:00) (01/19/2013 06:13:00) Hgb [12.0-16.0 g/dL] 12.5 g/dL 13.1 g/dL (01/20/2013 04:42:00) (01/19/2013 06:13:00) Hct [36.0-48.0 %] 39.2 % 40.6 % (01/20/2013 04:42:00) (01/19/2013 06:13:00) MCV [81.0-99.0 fL] 81.6 fL 81.8 fL (01/20/2013 04:42:00) (01/19/2013 06:13:00) MCH [27.0-31.0 pg] 26.0 pg 26.3 pg *LOW* *LOW* (01/20/2013 04:42:00) (01/19/2013 06:13:00) MCHC [32.0-36.0 g/dL] 31.9 g/dL 32.2 g/dL *LOW* (01/19/2013 06:13:00) (01/20/2013 04:42:00) RDW [11.5-14.5 %] 16.8 % 17.2 % *HI* *HI* (01/20/2013 04:42:00) (01/19/2013 06:13:00) Platelet [133-450 K/CMM] 91 K/CMM 89 K/CMM *LOW* *LOW* (01/20/2013 04:42:00) (01/19/2013 06:13:00) MPV [7.4-10.4 fL] 9.3 fL 8.8 fL (01/20/2013 04:42:00) (01/19/2013 06:13:00) Segs [45.0-75.0 %] 68.7 % 51.1 % (01/20/2013 04:42:00) (01/19/2013 06:13:00) Lymphocytes [20.0-40.0 %] 15.2 % 33.7 % *LOW* (01/19/2013 06:13:00) (01/20/2013 04:42:00) Monocytes [2.0-12.0 %] 10.9 % 11.5 % (01/20/2013 04:42:00) (01/19/2013 06:13:00) Eosinophils [0.0-4.0 %] 3.2 % 3.1 % (01/20/2013 04:42:00) (01/19/2013 06:13:00) Basophils [0.0-1.0 %] 2.0 % 0.6 % *HI* (01/19/2013 06:13:00) (01/20/2013 04:42:00) Segs-Bands # [1.5-8.1 K/CMM] 4.8 K/CMM 2.9 K/CMM (01/20/2013 04:42:00) (01/19/2013 06:13:00) Lymphocytes # [1.0-5.5 K/CMM] 1.1 K/CMM 1.9 K/CMM (01/20/2013 04:42:00) (01/19/2013 06:13:00) Monocytes # [0.0-0.8 K/CMM] 0.8 K/CMM 0.7 K/CMM (01/20/2013 04:42:00) (01/19/2013 06:13:00) Eosinophils # [0.0-0.5 K/CMM] 0.2 K/CMM 0.2 K/CMM (01/20/2013 04:42:00) (01/19/2013 06:13:00) Basophils # [0.0-0.2 K/CMM] 0.1 K/CMM (01/20/2013 04:42:00) PT [12.0-14.7 seconds] 14.7 seconds (01/19/2013 06:13:00) INR [0.85-1.17] 1.13 5 (01/19/2013 06:13:00) PTT [22.9-35.8 seconds] 32.3 seconds 6 (01/19/2013 06:13:00) 5Interpretive Data: RECOMMENDED RANGES FOR PROTIME INR: 2.0-3.0 for most medical and surgical thromboembolic states. 2.5-3.5 for artificial heart valves and recurrent embolism. INR SHOULD BE USED ONLY FOR PATIENTS ON STABLE ANTICOAGULANT THERAPY.6Interpretive Data: Heparin Therapeutic Range: 57 - 92 Seconds Procedures Procedures Date Related Diagnosis Appendectomy Breast biopsy and related procedures Cardiac catheterization Cataract surgery Hysterectomy Ulnar nerve decompression
[2018-04-25 11:15] LABS: ALT/SGPT 10 U/L (12-78); AST/SGOT 21 U/L (15-37); Alkaline Phosphatase 74 U/L (45-117); BUN Blood Urea Nitrogen 45 mg/dL (7-18); Bicarbonate 28 mmol/L (21-32); Bilirubin Direct 0.2 mg/dL (0-0.2); Bilirubin Total 0.8 mg/dL (0.2-1.0); CKMB Creatine Kinase MB < 1.0 ng/mL (0.3-3.6); Creatine Phosphokinase 21 U/L (26-192); Glucose Level 152 mg/dL (74-106); Lipase 99 U/L (73-393); Magnesium 1.5 mg/dL (1.8-2.4); NT PRO-BNP 6303 pg/mL (<450); Potassium 4.4 mmol/L (3.5-5.1); Sodium Level 135 mmol/L (136-145)
[2018-04-25] MEDS ORDERED: FUROSEMIDE 40 MG/4 ML VIAL ONE (11:58)
[2018-04-25] MEDS ORDERED: MAGNESIUM SULFATE 1 gm IVPB 1 GM/100 ML BAG IV ONE (11:58)
[2018-04-25 12:34] LABS: Platelet Estimate ADEQ
[2018-04-25 12:35] LABS: Anisocytosis 2+; Blood Morphology Comment NOTED (NOT SEEN); Teardrop Cell 1+
--- NOTE | 2018-04-25 12:43 | RAD REPORT ---
EXAM DESCRIPTION: RAD - Chest Single View - 04/25/2018 11:45 am CLINICAL HISTORY: Shortness of breath COMPARISON: December 31 TECHNIQUE: AP portable chest image was obtained 1128 hour . FINDINGS: Its lung volumes are relatively low. Patient extensive interstitial and alveolar opacities throughout the lung quijano. Pattern is substantially similar to the prior study. Heart size is upper normal. Pulmonary vasculature is prominent. The fibula there is in place. No pneumothorax or large p leural effusion. No gross bony abnormality seen. No acute aortic findings suspected. IMPRESSION: Pulmonary edema pattern substantially similar to the December 31. This could be from cardiac decompensation or volume overload.
[2018-04-25 13:30] LABS: Urine Blood NEGATIVE (NEG); Urine Glucose NEGATIVE (NEG); Urine Protein 1+ (NEG); Urine Specific Gravity 1.015 (1.005-1.030); Urine pH 7.5 (5.0-7.0)
--- NOTE | 2018-04-25 15:22 | ER ---
Nurse's Notes [facility] Name: Julia Groves Age: 82 yrs Sex: Female : 1935 Arrival Date: 04/25/2018 Time: 10:12 Bed 6 Private MD: Melva Suarez C Diagnosis: Systolic (congestive) heart failure;Hypoxia;Chest pain, unspecified Presentation: 04/25 10:24 Presenting complaint: Patient states: I have had some shortness of breath, just feel sg like I need some oxygen. All this started a couple days ago, but the chest pain started today and just keeps getting worse. Transition of care: patient was not received from another setting of care. Onset of symptoms was April 25, 2018. Risk Assessment: Do you want to hurt yourself or someone else? Patient reports no desire to harm self or others. Initial Sepsis Screen: Does the patient meet any 2 criteria? No. Patient's initial sepsis screen is negative. Does the patient have a suspected source of infection? No. Patient's initial sepsis screen is negative. Care prior to arrival: None. 10:24 Method Of Arrival: Wheelchair sg 10:24 Acuity: RYAN 2 sg Triage Assessment: 10:40 General: Appears in no apparent distress. uncomfortable, well groomed, well developed, sg well nourished, Behavior is calm, cooperative, appropriate for age. Respiratory: Reports shortness of breath at rest labored breathing Breath sounds are coarse Breath sounds are diminished in left posterior lower lobe and right posterior middle lobe the patient has moderate shortness of breath. Respiratory: Airway is patent Respiratory effort is even, labored, Respiratory pattern is regular, symmetrical. Historical: - Allergies: 10:28 No Known Allergies; sv - Home Meds: 11:08 aspirin 81 mg Oral chew 1 tab once daily [Active]; carvedilol 12.5 mg Oral tab 1 tab 2 sg times per day [Active]; clopidogrel 75 mg Oral tab 1 tab once daily [Active]; duloxetine 30 mg Oral cpDR 1 cap once daily [Active]; cyanocobalamin (vitamin B-12) 500 mcg oral tab daily [Active]; bumetanide 1 mg Oral tab 1 tab 2 times per day [Active]; glimepiride 4 mg Oral tab 1 tab twice daily [Active]; metformin 500 mg Oral tab 1 tab 2 times per day [Active]; pantoprazole 40 mg oral TbEC 1 tab once daily [Active]; potassium chloride 20 mEq Oral TbER 1 tab 2 times per day [Active]; valacyclovir 500 mg Oral tab 1 tab once daily [Active]; Insulin Glargine 300 units/mL Sub-Q 10 unit nightly [Active]; - PMHx: 10:28 Anemia; CAD; CLL; Lukemia; GERD; Diabetes - IDDM; Heart Murmur; Hypertension; sv laminectomy, lower back pain; spinal stenosis; Myocardial infarction; systolic heart failure; constipation; - PSHx: 10:28 heart valve replacement 10/2017; Breast biopsy; cataract; Hysterectomy; ulnar nerve sv decompression; cardiac cath; Appendectomy; - Immunization history:: Adult Immunizations up to date. - Social history:: Smoking status: Patient/guardian denies using tobacco. - Ebola Screening: : Patient negative for fever greater than or equal to 101.5 degrees Fahrenheit, and additional compatible Ebola Virus Disease symptoms Patient denies exposure to infectious person Patient denies travel to an Ebola-affected area in the 21 days before illness onset No symptoms or risks identified at this time. Screenin:25 Abuse screen: Denies threats or abuse. Denies injuries from another. Nutritional sv screening: No deficits noted. Tuberculosis screening: No symptoms or risk factors identified. Fall Risk None identified. Assessment: 10:40 General: Appears in no apparent distress. well groomed, well developed, well nourished, sg Behavior is calm, cooperative, appropriate for age. Pain: Complains of pain in chest Pain does not radiate. Quality of pain is described as pressure. Neuro: Level of Consciousness is awake, alert, obeys commands, Oriented to person, place, time, Chicken Tender are equal bilaterally Moves all extremities. Full function Speech is normal, Facial symmetry appears normal. Cardiovascular: Heart tones S1 S2 present Capillary refill is brisk in bilateral fingers Patient's skin is warm and dry. Chest pain is described as mild, quality is heaviness, pressure, is located in anterior chest wall. Respiratory: Airway is patent Respiratory effort is even, labored, Respiratory pattern is symmetrical, tachypnea Breath sounds are coarse. GI: No signs and/or symptoms were reported involving the gastrointestinal system. : No signs and/or symptoms were reported regarding the genitourinary system. EENT: No signs and/or symptoms were reported regarding the EENT system. Derm: Skin is pink, warm \T\ dry. Musculoskeletal: No signs and/or symptoms reported regarding the musculoskeletal system. 14:59 Reassessment: attempt to call report to receiving facility, Charge nurse reports that sg she is unaware of a patient being transferred, instructed to please call back in 30 mins after the Charge is able to speak with the Transfer facility, pt and pt family updated on POC and stated understanding. 15:21 Reassessment: RODRIGUE Barker contacted, instructed that the other unit will be receiving sg the patient, call transferred, spke with Alejandrina HUSAIN charge for receiving unit at [facility]. Alejandrina HUSAIN reports that she has not yet made the bed assignment and that she will call back when the bed has been assigned, a call back number was left with the patient, awaiting a call back at this time. 16:50 Reassessment: Reassessment: Patient appears in no apparent distress at this time. ss Patient is alert, oriented x 3, equal unlabored respirations, skin warm/dry/pink. pt updated on POC for transfer, spoke with Alejandrina HUSAIN charge for Heart Failure IMU, update that a bed assignment has been made and that the nurse will be available for report in approx 30 mins, pt and pt family stated understanding. Vital Signs: 10:25 BP 167 / 77; Pulse 88; Resp 22; Pulse Ox 100% on 2 lpm NC; sv 10:30 Temp 97.7; sg 11:25 BP 151 / 65; Pulse 85; Resp 21; Pulse Ox 97% on 2 lpm NC; dh3 12:09 BP 163 / 69; Pulse 84; Resp 23; Pulse Ox 98% on 2 lpm NC; dh3 13:09 BP 145 / 65; Pulse 89; Resp 35; Pulse Ox 100% on 2 lpm NC; dh3 14:16 BP 159 / 74; Pulse 87; Resp 30; Pulse Ox 96% on 2 lpm NC; dh3 16:04 BP 165 / 73; Pulse 92; Resp 30; Pulse Ox 95% on 2 lpm NC; dh3 10:25 Pt was 90% on RA. sv ED Course: 10:12 Patient arrived in ED. as 10:12 Melva Suarez MD is Private Physician. as 10:18 Ramone Cano PA is PHCP. m 10:18 Marco Antonio Lemon MD is Attending Physician. m 10:20 EKG done, by ED staff, reviewed by Marco Antonio Lemon MD. sv 10:20 electronic device monitor on. Pulse ox on. NIBP on. sv 10:20 Arm band placed on right wrist. sv 10:25 Patient has correct armband on for positive identification. Placed in gown. Bed in low sv position. Adult w/ patient. 10:26 Triage completed. sg 10:28 Nurse Practitioner and/or Physician Direct Support Professional Caregiver to see patient. sv 10:34 Initial lab(s) drawn, by sc, sent to lab. Inserted saline lock: 20 gauge in left dh3 antecubital area, using aseptic technique. Blood collected. 11:42 X-ray completed. Portable x-ray completed in exam room. Patient tolerated procedure jw2 well. 11:45 XRAY Chest (1 view) In Process Unspecified. EDMS 11:52 Albert Orta, RN is Primary Nurse. sg 12:08 Urine collected: hat, gwendolyn. 3 17:30 No provider procedures requiring assistance completed. Patient transferred, IV remains sg in place. intact, No redness/swelling at site. Administered Medications: 12:12 Drug: Lasix 40 mg Route: IVP; Site: left antecubital; sg 12:12 Drug: Magnesium Sulfate 1 grams Route: IVPB; Infused Over: 1 hrs; Site: left sg antecubital; Output: 12:00 Urine: 300ml (Voided); Total: 300ml. sv 17:03 Urine: 1500ml (Voided); Total: 1800ml. sg Outcome: 15:21 ER care complete, transfer ordered by . [facility] 17:29 Patient left the ED. sg 18:11 Transferred by ground EMS to [facility], Note: Report given to Alejandrina arenas charge nurse for Heart Failure IMU room 430, report given to Ion primary nurse for room 430 18:11 Condition: stable 18:11 Instructed on the need for transfer, safety practices, Demonstrated understanding of instructions, follow-up care. Signatures: Dispatcher [employer] EDMS Anna Lucio RN RN sv Gay, Steven, RODRIGUE HUSAIN Ramone Cano PA PA jmm Martinez, Amelia as Smirch, Shelby, RN RN Kathy Hathaway jw2 Terri German dh3 Corrections: (The following items were deleted from the chart) 16:06 14:16 BP 159 / 74; Pulse 87bpm; Resp 30bpm; Pulse Ox 96%; sv dh3 17:01 16:36 Reassessment: dagoberto lane
--- NOTE | 2018-04-25 15:22 | EDPHYS ---
Physician Documentation [facility] Name: Julia Groves Age: 82 yrs Sex: Female : 1935 Arrival Date: 04/25/2018 Time: 10:12 Bed 6 Private MD: Melva Suarez C ED Physician Marco Antonio Lemon HPI: 04/25 10:32 This 82 yrs old Female presents to ER via Wheelchair with complaints of jmm Breathing Difficulty, Chest Pain. 10:32 The patient has shortness of breath at rest. Onset: The symptoms/episode began/occurred jmm gradually, just prior to arrival. Duration: The symptoms are continuous. Associated signs and symptoms: Pertinent positives: chest pain. This is an 82 year old female with a history of CLL, CAD, that presents to the ED with shortness of breath beginning earlier this morning. The SOB is constant. Patient also complains of intermittent chest pain beginning 3 days ago which waxes and wanes. The pain is described as an ache. Dr. Miller is the patient's oncologist. Dr. Parra is the patient's home appliance tech. . Historical: - Allergies: 10:28 No Known Allergies; sv - Home Meds: 11:08 aspirin 81 mg Oral chew 1 tab once daily [Active]; carvedilol 12.5 mg Oral tab 1 tab 2 sg times per day [Active]; clopidogrel 75 mg Oral tab 1 tab once daily [Active]; duloxetine 30 mg Oral cpDR 1 cap once daily [Active]; cyanocobalamin (vitamin B-12) 500 mcg oral tab daily [Active]; bumetanide 1 mg Oral tab 1 tab 2 times per day [Active]; glimepiride 4 mg Oral tab 1 tab twice daily [Active]; metformin 500 mg Oral tab 1 tab 2 times per day [Active]; pantoprazole 40 mg oral TbEC 1 tab once daily [Active]; potassium chloride 20 mEq Oral TbER 1 tab 2 times per day [Active]; valacyclovir 500 mg Oral tab 1 tab once daily [Active]; Insulin Glargine 300 units/mL Sub-Q 10 unit nightly [Active]; - PMHx: 10:28 Anemia; CAD; CLL; Lukemia; GERD; Diabetes - IDDM; Heart Murmur; Hypertension; sv laminectomy, lower back pain; spinal stenosis; Myocardial infarction; systolic heart failure; constipation; - PSHx: 10:28 heart valve replacement 10/2017; Breast biopsy; cataract; Hysterectomy; ulnar nerve sv decompression; cardiac cath; Appendectomy; - Immunization history:: Adult Immunizations up to date. - Social history:: Smoking status: Patient/guardian denies using tobacco. - Ebola Screening: : Patient negative for fever greater than or equal to 101.5 degrees Fahrenheit, and additional compatible Ebola Virus Disease symptoms Patient denies exposure to infectious person Patient denies travel to an Ebola-affected area in the 21 days before illness onset No symptoms or risks identified at this time. ROS: 10:32 Eyes: Negative for injury, pain, redness, and discharge. jmm 10:32 Abdomen/GI: Negative for abdominal pain, nausea, vomiting, diarrhea, and constipation, Back: Negative for injury and pain, MS/Extremity: Negative for injury and deformity, Skin: Negative for injury, rash, and discoloration. 10:32 Constitutional: Positive for malaise. 10:32 Cardiovascular: Positive for chest pain, Negative for edema. 10:32 Respiratory: Positive for shortness of breath. 10:32 All other systems are negative. Exam: 10:32 Head/Face: atraumatic. Chest/axilla: Normal chest wall appearance and motion. jmm Nontender with no deformity. No lesions are appreciated. 10:32 Constitutional: The patient appears in no acute distress, alert, awake. 10:32 Cardiovascular: Heart sounds: murmur, Edema: is not appreciated. 10:32 Respiratory: mild respiratory distress is noted, Respirations: normal, Breath sounds: are clear throughout. 10:32 Musculoskeletal/extremity: ROM: intact in all extremities. 10:32 Skin: Appearance: Color: pale. 10:32 Neuro: Orientation: is normal, Mentation: is normal, Memory: is normal. 10:32 Psych: Behavior/mood is pleasant, cooperative. Vital Signs: 10:25 BP 167 / 77; Pulse 88; Resp 22; Pulse Ox 100% on 2 lpm NC; sv 10:30 Temp 97.7; sg 11:25 BP 151 / 65; Pulse 85; Resp 21; Pulse Ox 97% on 2 lpm NC; dh3 12:09 BP 163 / 69; Pulse 84; Resp 23; Pulse Ox 98% on 2 lpm NC; dh3 13:09 BP 145 / 65; Pulse 89; Resp 35; Pulse Ox 100% on 2 lpm NC; dh3 14:16 BP 159 / 74; Pulse 87; Resp 30; Pulse Ox 96% on 2 lpm NC; dh3 16:04 BP 165 / 73; Pulse 92; Resp 30; Pulse Ox 95% on 2 lpm NC; dh3 10:25 Pt was 90% on RA. sv MDM: 10:30 Patient medically screened. [facility] 15:11 Data reviewed: vital signs, nurses notes, lab test result(s), EKG, radiologic studies, [facility] plain films. ED course: I discussed the patient with Dr. Suarez, whom recommends transfer.. ED course: I discussed the patient with the [employer] home appliance tech at [facility]. Accepted transfer. 04/25 10:30 Order name: Basic Metabolic Panel; Complete Time: 11:16 [facility] 04/25 10:30 Order name: CBC with Diff; Complete Time: 12:38 [facility] 04/25 10:30 Order name: Ckmb; Complete Time: 11:16 [facility] 04/25 10:30 Order name: CPK; Complete Time: 11:16 [facility] 04/25 10:30 Order name: LFT's; Complete Time: 11:16 [facility] 04/25 10:31 Order name: Magnesium; Complete Time: 11:16 [facility] 04/25 10:31 Order name: NT PRO-BNP; Complete Time: 11:16 [facility] 04/25 10:31 Order name: PT-INR; Complete Time: 11:16 [facility] 04/25 10:31 Order name: Ptt, Activated; Complete Time: 11:16 [facility] 04/25 10:31 Order name: Troponin (emerg Dept Use Only); Complete Time: 11:16 [facility] 04/25 10:32 Order name: Lipase; Complete Time: 11:16 [facility] 04/25 10:32 Order name: Procalcitonin; Complete Time: 11:25 [facility] 04/25 10:56 Order name: Manual Differential; Complete Time: 12:38 [facility] 04/25 12:17 Order name: Urine Dipstick--Ancillary (enter results); Complete Time: 13:34 em1 04/25 10:24 Order name: EKG; Complete Time: 10:24 sv 04/25 10:24 Order name: EKG - Nurse/Tech; Complete Time: 10:24 sv 04/25 10:31 Order name: XRAY Chest (1 view); Complete Time: 12:50 [facility] 04/25 10:31 Order name: Cardiac monitoring; Complete Time: 10:42 [facility] 04/25 10:31 Order name: IV Saline Lock; Complete Time: 10:42 [facility] 04/25 10:31 Order name: Labs collected and sent; Complete Time: 10:42 [facility] 04/25 10:31 Order name: O2 Per Protocol; Complete Time: 10:42 [facility] 04/25 10:31 Order name: O2 Sat Monitoring; Complete Time: 10:42 [facility] 04/25 10:31 Order name: Urine Dipstick-Ancillary (obtain specimen); Complete Time: 12:08 [facility] 04/25 13:40 Order name: Diet Ada 1800 Thiago; Complete Time: 13:40 sg Administered Medications: 12:12 Drug: Lasix 40 mg Route: IVP; Site: left antecubital; sg 12:12 Drug: Magnesium Sulfate 1 grams Route: IVPB; Infused Over: 1 hrs; Site: left sg antecubital; Disposition: 17:45 Co-signature as Attending Physician, Marco Antonio Lemon MD. rn Disposition: 04/25/18 15:21 Transfer ordered to [facility]. Diagnosis are Systolic (congestive) heart failure, Hypoxia, Chest pain, unspecified. - Reason for transfer: Higher level of care. - Accepting physician is Tasha. - Condition is Stable. - Problem is an acute exacerbation. - Symptoms have improved. Signatures: Dispatcher [employer] Anna Suazo RN RN Albert Orta RN RN Ramone Cano PA PA Marco Antonio Moe MD MD internal medicine nurse: (The following items were deleted from the chart) 17:29 15:21 04/25/2018 15:21 Transfer ordered to [facility]. Diagnosis is Systolic (congestive) heart failure; Hypoxia; Chest pain, unspecified. Reason for transfer: Higher level of care. Accepting physician is Tasha. Condition is Stable. Problem is an acute exacerbation. Symptoms have improved. [facility]
[2018-04-25 17:34] VITALS: TEMP 97.7
[2018-04-25 17:40] VITALS: BP 165/73; O2SAT 95
--- NOTE | 2018-04-25 22:59 | EKG ---
Test Date: 2018-04-25 Test Time: 10:20:12 [employer]: [employer] MEASUREMENT RESULTS: Intervals: Rate: 89 OR: 144 QRSD: 128 QT: 358 QTc: 435 [place]: P: 25 OR: 144 QRS: 2 T: 136 INTERPRETIVE STATEMENTS: Normal sinus rhythm Left bundle branch block Abnormal ECG Compared to ECG 12/31/2017 18:42:53 Left bundle-branch block now present Right-axis deviation no longer present T-wave abnormality no longer present Possible ischemia no longer present Electronically Signed On 04-25-18 22:58:50 CDT by Yanvi Machado
== END 2018-04-25 17:29 | disposition short-term general hospital (02) ==
LOC: ER 10:11
DX: I50.20 Unspecified systolic (congestive) heart failure (principal); R09.02 Hypoxemia; R07.9 Chest pain, unspecified; I25.10 Atherosclerotic heart disease of native coronary artery without angina pectoris; C91.10 Chronic lymphocytic leukemia of B-cell type not having achieved remission; E11.9 Type 2 diabetes mellitus without complications; Z79.84 Long term (current) use of oral hypoglycemic drugs; I10 Essential (primary) hypertension; I25.2 Old myocardial infarction; Z95.2 Presence of prosthetic heart valve
CPT/HCPCS: 36415; 71045; 80048; 80076; 81003; 82550; 82553; 83690; 83735; 83880; 84145; 84484; 85025; 85610; 85730; 93005; 96374; 96375; 99285; J3475

== ENCOUNTER 2018-06-05 00:14 | Inpatient (IN) | payer OTHER ==
[2018-06-05] MEDS ORDERED: ONDANSETRON 4 MG/2 ML VIAL ONE (00:59)
--- OUTSIDE RECORDS SUMMARY | 2018-06-05 01:15 | XMS REPORT | Continuity of Care Document ---
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 [address] [place] [address] failure 3 MONTHS Active [address] HOSPITAL F/U Active [address] CHEST PAIN Active [address] Nonrheumatic [facility] aortic stenosis [address] [place] [address] Center FOLLOW UP Active [address] C91.10 - CHRONIC Active [facility] LYMPHOCYTIC [place] 018 [facility] HOSPITAL FOLLOW Active [facility] UP [address] [place] [address] SHORTNESS OF Active [facility] BREATH [address] [place] [address] DR HAIRSTON TOLD PT Active [facility] TO COME [address] [place] [address] 1 WK POST OP F/U Active [address] PULMONARY Active [facility] FUNCTION TEST [address] [place] [address] AORTIC STENOSIS Active [address] ARTIC STENOSIS Active [address] TAVR Active [address] DX:CAD / Active [address] CCL/R Active [address] A FIB Active [facility] [place] [facility]13 [facility] SCI Active 012 Rehabilitation LUMBAR RAD Active [place] [address] [facility], Rehabilitation Spinal stenosis Active Problem Data [facility] lumbar 012 8 migrated Medical region<sup>4, from Center, 5</sup> [facility] for Adv on 06/20/15. Heart Failure Low back Resolved Problem Data [facility] pain<sup>1, 2, 012 8 migrated Medical 3</sup> from [facility], [facility] for Adv on 06/20/15. 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[address] [place] [address] Center replacement Essential [facility] hypertension [address] [place] [address] Center Hyperlipidemia, [facility] unspecified [address] [place] [address] Center Type 2 diabetes [facility] mellitus with [address] [place] [address] Center unspecified complications Final: Illness, [facility] unspecified [address] [place] [address] Center Severe aortic Active Problem [facility] stenosis [address] [place] [address] Center, OPID [place] 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[place], 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 [place] having achieved remission Breast biopsy and Resolved Problem [facility] related Medical procedures Center, [facility] for Adv Heart Failure, ZACH [facility] CAD - Coronary Active Problem [facility] artery disease [address] [place] [address], [facility] Failure, [facility] DM - Diabetes Active Problem [facility] mellitus Medical [place], [facility] for Adv Heart Failure, Z[facility] Foot swelling Resolved Problem [address], OPID [place] Heart attack Resolved Problem [address], [facility] Heart Failure, [facility] [place] HTN (<span Active Problem [facility] ID="[id number]" 8 Medical >Confirmed</span> Center, OPID ) [place] Laminectomy Resolved Problem [address], [facility] Failure, [facility] [place] Lumbar region Resolved Problem [facility] injury [address] [place] [address], [facility] Failure, [facility] [place] O/E - pain Resolved Problem [address], [facility] Failure, [facility] [place] Anemia, [address] Other fatigue [address] Hypotension, [address] 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 Type 2 diabetes [facility] mellitus without [address] [place] [address] Center complications 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[place] [address] [place] coronary artery without angina pectoris Acute myocardial [facility] infarction, [address] [place] [address] unspecified Spinal stenosis, [facility] lumbar region [address] [place] [address] without neurogenic claudication Other specified [facility] postprocedural [address] [place] [address] states Splenomegaly, not OPID elsewhere [address] [place] [address] classified Localized [facility] enlarged lymph [address] [place] [address] nodes Acute respiratory [facility] failure with [address] [place] [address] hypoxia 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[address] [place] [address] defibrillator Ischemic [facility]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 [address] [place] [address] Shortness of [facility] breath [address] [place] [address] 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[address] [place] [address]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 [address] Center Alkalosis [address] Type 2 diabetes [facility] mellitus with [address] [place] [address] Center hyperglycemia Other disorders [facility] of phosphorus [address] [place] [address] metabolism Hypermagnesemia [address] Thrombocytopenia, [facility] unspecified [address] [place] [address] Center Cardiomyopathy[facility] Acute kidney [facility] failure, [address] [place] [address] Center unspecified Hypo-osmolality [facility] and hyponatremia 8 [facility] [place] 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 8 Medical Center 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[facility] [place]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 in [facility] neoplastic [address] [place] [address] Center disease Presence of [facility] coronary [address] [place] [address] angioplasty implant and graft Claustrophobia [address] Center Anxiety disorder, [facility] unspecified [address] [place] [address] Center Monoarthritis, [facility]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[address] [place] [address] classified, 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 [address] [place] [address] Center senior care use of [facility] insulin [address] [place] [address] senior care use of [facility] anticoagulants [address] [place] [address] Center Constipation, [facility] unspecified [address] [place] [address] Center Other [facility] chondrocalcinosis [address] [place] [address] Center , right knee Other [facility] chondrocalcinosis [address] [place] [address] , left wrist Other [facility] chondrocalcinosis [address] [place] [address] , right wrist Hyperkalemia [address] CAD - Coronary Active Problem [facility] DM - Diabetes Active Problem [facility] mellitus [facility] Laminectomy Active Problem [facility] O/E - pain Active Problem [facility] Stented artery Active Problem [facility] Breast biopsy and Resolved Problem [facility] related [address] [place] [address] procedures Cataract Resolved Problem [address] Heart attack Active Problem [facility] Lumbar region Resolved Problem [facility] injury [address] [place] [address] Cataract Resolved Problem [facility] LUMBOSACRAL Active [facility] NEURITIS NOS [facility] [place] LUMBAR DISC Active [facility], Rehabilitation OTHER GENERAL Active SYMPTOMS Rehabilitation ILLNESS, Active [facility] SHORTNESS OF Active [facility] ANEMIA, Active [facility] UNSPECIFIED [facility] Center Medications Medication Details Route Status Patient Ordering Order Source Instructions Provider Date potassium 20 mEq=1 tab, Active [facility] chloride 20 mEq PO, Daily, # 2018 Medical oral tablet, 30 tab, 3 Center extended release Refill(s) valsartan 40 mg 40 mg=1 tab, Active 05/01[facility] oral tablet PO, BID, # 60 2018 Medical tab, 6 Center Refill(s) clopidogrel 75 75 mg=1 tab, Active [facility] mg oral tablet PO, Daily, # 2018 Medical 30 tab, 6 Center Refill(s) carvedilol 12.5 12.5 mg=1 Active 05/01[facility] mg oral tablet tab, PO, BID, 2018 Medical # 60 tab, 6 Center Refill(s) bumetanide 1 mg 1 mg=1 tab, Active [facility] oral tablet PO, Daily, # 2018 Medical 30 tab, 6 Center Refill(s) Bumex 1 mg, 1 tab, No Longer [facility] Route: PO, Active 2017 Medical Drug form: [place] TAB, Daily, Dosing Weight 64.091, kg, Start date: 04/30/18 9:00:00 CDT, Duration: 30 day, Stop date: 05/29/18 9:00:00 CDTNotes: (Same As: Bumex) Bumex 2 mg, 8 mL, No Longer [facility] Route: IV, Active 2017 Medical Drug form: [place] INJ, TID, Dosing Weight 64.091, kg, Start date: 04/27/18 13:00:00 CDT, Stop date: 04/29/18 22:00:00 CDTNotes: (Same As: Bumex) Vitamin B 12 250 No Longer [facility] microgram, 1 Active 2017 Medical tab, Route: [place] PO, Drug form: TAB, Daily, Dosing Weight 64.091, kg, Start date: 04/26/18 9:00:00 CDT, Duration: 30 day, Stop date: 05/25/18 9:00:00 CDTNotes: (Same As: Vitamin B12) clopidogrel 75 mg, 1 tab, No Longer [facility] Route: PO, Active 2017 Medical Drug form: Center TAB, Daily, Dosing Weight 64.091, kg, Start date: 04/26/18 9:00:00 CDT, Duration: 30 day, Stop date: 05/25/18 9:00:00 CDTNotes: (Same As: Plavix) carvedilol 12.5 mg, 1 No Longer [facility] tab, Route: Active 2017 Medical PO, Drug Center form: TAB, BID, Dosing Weight 64.091, kg, Start date: 04/26/18 9:00:00 CDT, Duration: 30 day, Stop date: 05/25/18 17:00:00 CDTNotes: Give with food. (Same As: Coreg) valsartan 40 mg, 1 tab, No Longer [facility] Route: PO, Active 2017 Medical Drug form: [place] TAB, BID, Dosing Weight 64.091, kg, Start date: 04/26/18 9:00:00 CDT, Duration: 30 day, Stop date: 05/25/18 17:00:00 CDTNotes: Same as Ge Aspirin 81 MG 81 mg, 1 tab, No Longer [facility] Chewable Tablet Route: PO, Active 2017 Medical Drug form: [place] CHEWTAB, Daily, Dosing Weight 64.091, kg, Start date: 04/26/18 9:00:00 CDT, Duration: 30 day, Stop date: 05/25/18 9:00:00 CDTNotes: Take with food. NIFEdipine 30 mg 30 mg, 1 tab, No Longer [facility] oral tablet, Route: PO, Active 2017 Medical extended release Drug form: [place] ERTAB, Daily, Dosing Weight 64.091, kg, Start date: 04/26/18 9:00:00 CDT, Duration: 30 day, Stop date: 05/25/18 9:00:00 CDT heparin sodium, 5,000 unit, 1 No Longer [facility] porcine 2500 mL, Route: Active 2018 Medical UNT/ML SUB-Q, Drug Center Injectable form: INJ, Solution Q12H, Dosing Weight 64.091, kg, Start date: 04/26/18 9:00:00 CDT, Duration: 30 day, Stop date: 05/25/18 21:00:00 CDTNotes: porcine heparin duloxetine 30 mg, 1 cap, No Longer [facility] Route: PO, Active 2017 Medical Drug form: Center DRC, Daily, Dosing Weight 64.091, kg, Start date: 04/26/18 9:00:00 CDT, Duration: 30 day, Stop date: 05/25/18 9:00:00 CDTNotes: (Same as: Cymbalta) (Do Not Crush) Hydralazine 20 mg, 1 mL, No Longer [facility] Route: IVP, Active 2017 Medical Drug form: [place] INJ, Q4H, Dosing Weight 64.091, kg, PRN Hypertension, Start date: 04/25/18 23:08:00 CDT, Duration: 30 day, Stop date: 05/25/18 23:07:00 CDT, SBP>160Notes: (Same as: Apresoline) Push over 5 minutes insulin glargine 8 unit, 0.08 No Longer [place] mL, Route: Active 2017 Medical SUB-Q, Drug Center form: SOLN, Bedtime, Start date: 04/25/18 22:30:00 CDT, Duration: 30 day, Stop date: 05/25/18 21:00:00 CDTNotes: (Same as: Lantus) Do not hold insulin without contacting prescriber WASTE: F/P - Black; E - Municipal Trash Bin "single patient use only" valacyclovir 500 mg, 1 No Longer [place] tab, Route: Active 2017 Medical PO, Drug Center form: TAB, Q24H, Dosing Weight 64.091, kg, Start date: 04/25/18 21:00:00 CDT, Duration: 30 day, Stop date: 05/24/18 21:00:00 CDTNotes: (Same As: Valtrex) 1.5 ML Insulin 10 unit, Inactive [place] Glargine 300 Route: SUB-Q, 2018 Medical UNT/ML Prefilled Drug form: Center Syringe [Toujeo] SOLN, Bedtime, Dosing Weight 64.091, kg, Start date: 04/25/18 21:00:00 CDT, Duration: 30 day, Stop date: 05/24/18 21:00:00 CDT bumetanide 10 mg 60 mL, Rate: No Longer [place] + Infuse as Active 2018 Medical directed, Center Dosing Weight 64.091, kg, Route: IV, Total Volume: 100 mL, Start Date: 04/25/18 20:32:00 CDT, Duration: 30 day, Stop date: 05/25/18 20:31:00 CDT, Replace Every: 24 hrNotes: (Same as: Bumex) Bumex 1 mg, 4 mL, Inactive [place] Route: IVP, 2018 Medical Drug form: Center INJ, ONCE, Dosing Weight 64.091, kg, Start date: 04/25/18 20:32:00 CDT, Stop date: 04/25/18 20:32:00 CDTNotes: (Same As: Bumex) Tylenol 650 mg, 2 No Longer [place] tab, Route: Active 2018 Medical PO, Drug Center form: TAB, Q4H, PRN Pain Score 1-3, Start date: 04/25/18 20:29:00 CDT, Duration: 14 day, Stop date: 05/09/18 20:28:00 CDTNotes: Do not exceed 4 gm/day. (Same as: Tylenol) Calcium 3 gm, 30 mL, No Longer [facility] Gluconate Route: IVPB, Active 2018 Medical PRN, Dosing Center Weight 64.091, kg, PRN Abnormal Lab Result, For NON-ICU Patients Only., Start date: 04/25/18 20:26:00 CDT, Duration: 30 day, Stop date: 05/25/18 20:25:00 CDTNotes: WASTE: F/P - Sink; E - Municipal Trash Bin Magnesium 1 gm, 100 mL, No Longer [place] Sulfate Route: IVPB, Active 2017 Medical Drug form: Center INJ, PRN, Dosing Weight 64.091, kg, PRN Abnormal Lab Result, For NON-ICU Patients Only., Start date: 04/25/18 20:26:00 CDT, Duration: 30 day, Stop date: 05/25/18 20:25:00 CDTNotes: WASTE: F/P - Sink; E - Municipal Trash Bin sodium phosphate 30 mmol, 10 No Longer [place] mL, Route: Active 2018 Medical IVPB, PRN, Center Dosing Weight 64.091, kg, PRN Abnormal Lab Result, For NON-ICU Patients Only., Start date: 04/25/18 20:26:00 CDT, Duration: 30 day, Stop date: 05/25/18 20:25:00 CDT Magnesium Oxide 800 mg, 2 No Longer [facility] tab, Route: Active 2018 Medical PO, Drug Center form: TAB, PRN, Dosing Weight 64.091, kg, PRN Abnormal Lab Result, For NON-ICU Patients Only., Start date: 04/25/18 20:26:00 CDT, Duration: 30 day, Stop date: 05/25/18 20:25:00 CDTNotes: (Same as: Mag-Ox 400) Magnesium oxide [id number] elemental magnesium Dose=____mg magnesium oxide (___mg elemental magnesium) potassium 30 mmol, 10 No Longer [facility] phosphate mL, Route: Active 2018 Medical IVPB, PRN, Center Dosing Weight 64.091, kg, PRN Abnormal Lab Result, For NON-ICU Patients Only., Start date: 04/25/18 20:26:00 CDT, Duration: 30 day, Stop date: 05/25/18 20:25:00 CDTNotes: (Same as: K Phosphate.) 1 mMol phoshate has 1.47 mEq potassium Infuse over 4 hours Potassium 10 mEq, 50 No Longer [facility] Chloride mL, Route: Active 2017 [facility] IVPB, Drug Center form: INJ, PRN, Dosing Weight 64.091, kg, PRN Abnormal Lab Result, For NON-ICU Patients Only, Start date: 04/25/18 20:26:00 CDT, Duration: 30 day, Stop date: 05/25/18 20:25:00 CDTNotes: (Same as: KCL) Infuse over 2 hours. potassium 2 pkt, Route: No Longer [facility] phosphate-sodium PO, Drug Active 2018 Medical phosphate 250 Form: Center mg-280 mg-160 mg PDR/REC, oral powder for Dosing Weight reconstitution 64.091, kg, PRN, PRN Abnormal Lab Result, For NON-ICU Patients Only, Start date: 04/25/18 20:26:00 CDT, Duration: 30 day, Stop date: 05/25/18 20:25:00 CDTNotes: (Same as: Phos-NaK) Each 1.5 gm pkt has 250mg phosphorous. Mix w/2.5oz water and stir. Insulin Lispro 1 unit, 0.01 No Longer [place] mL, Route: Active 2017 Medical SUB-Q, Drug Center form: SOLN, TID-Before Meals, Dosing Weight 64.091, kg, PRN Blood Glucose Results, Start date: 04/25/18 20:26:00 CDT, Duration: 30 day, Stop date: 05/25/18 20:25:00 CDTNotes: (Same as: Humalog ) Roll in palms of hands gently; Do not shake `vigorously. "Single Patient Use Only " WASTE: F/P - Black; E - Municipal Trash Bin Stable for 28 days at room temperature. Expires in days from _Date bumetanide 1 mg See Active [facility] oral tablet Instructions, 2018 Medical 2 tab PO qAM Center and 1 tab PO qPM, # 90 tab, 3 Refill(s), Pharmacy: [facility]/pharmacy #[id number] valsartan 40 mg 40 mg=1 tab, Active [facility] oral tablet PO, BID, # 60 2018 Medical tab, 3 Center Refill(s), Pharmacy: [facility]/pharmacy #[id number] carvedilol 12.5 12.5 mg=1 No Longer [facility] mg oral tablet tab, PO, BID, Active 2017 Medical 0 Refill(s) Center Neulasta 6 mg, 0.6 mL, Inactive [facility] Route: SUB-Q, 2017 Medical Drug form: [place] INJ, On Adm, Start date: 03/20/18 8:00:00 CDT, Duration: 1 doses or times, Stop date: 03/20/18 23:00:00 CDTNotes: (Same as: Neulasta) Restricted to Outpatient Benadryl 50 mg, 1 mL, Inactive [facility] Route: IVP, 2017 Medical Drug form: [place] INJ, ONCALL, Start date: 03/19/18 7:00:00 CDT, Duration: 1 doses or times, Stop date: 03/19/18 21:00:00 CDTNotes: (Same as: Benadryl) Tylenol 650 mg, 2 Inactive [facility] tab, Route: 2018 Medical PO, Drug Center form: KELLI DANIELSON, Start date: 03/19/18 7:00:00 CDT, Duration: 1 doses or times, Stop date: 03/19/18 21:00:00 CDTNotes: Do not exceed 4 gm/day. (Same as: Tylenol) dexamethasone 8 mg, 2 mL, Inactive [facility] Route: IV, 2017 Medical Drug form: [place] KELLI SPANGLER, Start date: 03/19/18 7:00:00 CDT, Duration: 1 doses or times, Stop date: 03/19/18 21:00:00 CDT meperidine 25 mg, 1 mL, No Longer [facility] Route: IVP, Active 2017 Medical Drug form: [facility], Q2H, PRN Chills/Rigors , Start date: 03/19/18 7:00:00 CDT, Duration: 1 day, Stop date: 03/20/18 6:59:00 CDTNotes: (Same as: Demerol) "Use Precaution in Elderly, Seizure disorders, and Renal impairment" riTUXimab + 600 mg, 60 Inactive [facility] Sodium Chloride mL, Route: 2018 Medical 0.9% IV 190 mL IV, Drug Center form: KELLI ESPINOZA, Start date: 03/19/18 7:00:00 CDT, Duration: 1 doses or times, Stop date: 03/19/18 21:00:00 CDTNotes: (Do not administer IV push or bolus). Final Concentration =1 mg/mL. Do not send via pneumatic tube system. CHEMOTHERAPY WASTE: F/P - Black; E - Yellow MEDICATION WASTE Product Size: 500 mg / 100 mg Product Wasted: __0_ mg ondansetron 8 mg, 50 mL, Inactive [facility] Route: IVPB, 2017 Medical Drug form: KELLI Thompson, Start date: 03/19/18 7:00:00 CDT, Duration: 1 doses or times, Stop date: 03/19/18 21:00:00 CDTNotes: (Same as: Zofran) Use with 50 mL NS bag bendamustine 80 Route: IV, Inactive [place] mg + Overfill Drug form: 2018 Medical Diluent KAUSHIKPabloKELLI, Center Estimated 5 mL + Start date: Sodium Chloride 03/19/18 0.9% IV 50 mL 7:00:00 CDT, Duration: 1 doses or times, Stop date: 03/19/18 21:00:00 CDTNotes: (Same as: [place]) WASTE: F/P - Black; E - Yellow CHEMOTHERAPY; Infuse entire contents for full dose valACYclovir 500 500 mg=1 tab, Active [place] mg oral tablet PO, Q24H, # 2018 Medical 90 tab, 1 Center Refill(s), Pharmacy: [facility]/pharmacy #[id number] Acetaminophen 325 mg, PO, Active [place] QID, 0 2018 Medical Refill(s) Center NIFEdipine 30 mg 30 mg=1 tab, Active [facility] oral tablet, PO, Daily, # 2018 Medical extended release 30 tab, 0 Center Refill(s) doxycycline 100 mg=1 cap, Active [place] hyclate 100 MG PO, Q12H, # 2018 Medical Oral Capsule 20 cap, 0 Center Refill(s), Pharmacy: [facility]/pharmacy #[id number] Neulasta 6 mg, 0.6 mL, Inactive [place] Route: SUB-Q, 2017 Medical Drug form: Center INJKELLI, Start date: 02/11/18 15:35:00 CDT, Duration: 1 doses or times, Stop date: 02/12/18 0:00:00 CDTNotes: (Same as: Neulasta) Restricted to Outpatient 1.5 ML Insulin 10 unit, Active [place] Glargine 300 SUB-Q, 2018 Medical UNT/ML Prefilled Bedtime, # 5 Center Syringe [Toujeo] mL, 0 Refill(s) carvedilol 6.25 6.25 mg=1 Active [facility] mg oral tablet tab, PO, BID, 2018 Medical 0 Refill(s) Center Aspirin 81 MG 81 mg=1 tab, Active [facility] Chewable Tablet PO, Daily, 0 2018 Medical Refill(s) Center cyanocobalamin 250 Active [facility] 500 mcg microgram=0.5 2018 Medical sublingual tab, PO, Center tablet Daily, # 45 tab, 0 Refill(s) valACYclovir 500 500 mg=1 tab, Active [facility] mg oral tablet PO, Q24H, 0 2018 Medical Refill(s) Center potassium 40 mEq=2 tab, Active [facility] chloride 20 mEq PO, Daily, 0 2018 Medical oral tablet, Refill(s) [place] extended release pantoprazole 40 40 mg=1 tab, Active [facility] mg oral enteric PO, Before 2018 Medical coated tablet Breakfast, 0 [place] Refill(s) levofloxacin 250 250 mg=1 tab, Active [facility] mg oral tablet PO, [id number], 2018 Medical 0 Refill(s) Center Furosemide 40 MG 40 mg=1 tab, Active [facility] Oral Tablet PO, BID, 0 2018 Medical Refill(s) [place] fluconazole 100 100 mg=1 tab, Active [facility] mg oral tablet PO, [id number], 2018 Medical 0 Refill(s) Center DULoxetine 30 mg 30 mg=1 cap, Active [facility] oral delayed PO, Daily, 0 2018 Medical release capsule Refill(s) Center clopidogrel 75 75 mg=1 tab, Active [facility] mg oral tablet PO, Daily, 0 2018 Medical Refill(s) Center Clonidine 0.1 mg=1 tab, Active [facility] Hydrochloride PO, BID, 0 2018 Medical 0.1 MG Oral Refill(s) [place] Tablet magnesium oxide 800 mg=2 tab, Active [place] 400 mg oral PO, Daily, X 2018 Medical tablet 30 day, # 60 Center tab, 0 Refill(s) Granix 300 Inactive [facility] microgram, 2018 Medical 0.5 mL, Center Route: SUB-Q, Drug form: SOLN, ONCE, Dosing Weight 63.273, kg, Priority: Routine, Start date: 02/06/18 8:00:00 CDT, Stop date: 02/06/18 8:00:00 CDTNotes: (Same as: Granix) Do not administer earlier than 24 hours after or in the 24 hours prior to cytotoxic chemotherapy. insulin, 10 unit, 0.1 Inactive [facility] isophane mL, Route: 2017 [facility], Drug Center form: INJ, Q8H-06, Dosing Weight 63.273, kg, Start date: 02/05/18 8:47:00 CDT, Stop date: 03/07/18 6:00:00 CDTNotes: Roll in palms of hands gently; Do not shake vigorously. (Same as: Humulin N) Do not hold insulin without contacting prescriber WASTE: F/P - Black; E - Municipal Trash Bin Stable for 28 days at room temperature Expires in days from _Date Insulin regular 5 unit, 0.05 Inactive 02/05[facility] mL, Route: 2017 [facility], Drug Center form: SOLN, ONCE, Dosing Weight 63.273, kg, Start date: 02/05/18 8:26:00 CDT, Stop date: 02/05/18 8:26:00 CDTNotes: (Same as: Humulin R) Roll in palms of hands gently; Do not shake vigorously. "single patient use only" (Restricted to patients requiring a dose > 60 units) WASTE: F/P - Black; E - Municipal Trash Bin Stable for 28 days at room temperature Expires in days from _Date insulin, 15 unit, 0.15 Inactive [facility] isophane mL, Route: 2017 [facility], [facility] Center form: INJ, ONCE, Dosing Weight 63.273, kg, Start date: 02/05/18 8:25:00 CDT, Stop date: 02/05/18 8:25:00 CDTNotes: Roll in palms of hands gently; Do not shake vigorously. (Same as: Humulin N) Do not hold insulin without contacting prescriber WASTE: F/P - Black; E - Municipal Trash Bin Stable for 28 days at room temperature Expires in days from _Date dexamethasone 8 mg, 2 mL, Inactive [facility] Route: IV, 2017 Medical Drug form: [place] INJ, ONCE, Start date: 02/04/18 22:27:00 CDT, Stop date: 02/04/18 22:27:00 CDTNotes: Concentration : 4mg/ml dexamethasone 8 mg, 0.8 mL, Inactive [facility] Route: IV, 2017 Medical Drug form: [place] INJ, ONCE, Start date: 02/04/18 22:21:00 CDT, Stop date: 02/04/18 22:21:00 CDTNotes: MEDICATION WASTE Product Size: 10 mg Product Wasted: __2_ mg dexamethasone 8 mg, 0.8 mL, Inactive [facility] Route: IV, 2017 Medical Drug form: [place] INJ, ONCALL, Start date: 02/04/18 21:00:00 CDT, Duration: 1 doses or times, Stop date: 02/05/18 20:59:00 CDTNotes: MEDICATION WASTE Product Size: 10 mg Product Wasted: __2_ mg EPINEPHrine 1 0.1 mg, 1 mL, No Longer [facility] mg/10ml Route: IV, Active 2018 Medical (1:10,000) Drug form: [place] injectable SOLN, ONCALL, solution PRN Allergic reaction, Start date: 02/04/18 21:00:00 CDT, Duration: 1 day, Stop date: 02/05/18 20:59:00 CDTNotes: Luer lock syringe Zofran 8 mg, 4 mL, Inactive [facility] Route: IV, 2017 Medical Drug form: [place] INJ, ONCALL, Start date: 02/04/18 21:00:00 CDT, Duration: 1 doses or times, Stop date: 02/05/18 20:59:00 CDTNotes: (Same as: Zofran) MEDICATION WASTE Product Size: 4 mg Product Wasted: ___0 mg Solu-CORTEF 100 mg, 2 mL, No Longer [facility] Route: IV, Active 2017 Medical Drug form: [place] PDR/INJ, ONCALL, PRN Allergic reaction, Start date: 02/04/18 21:00:00 CDT, Duration: 1 day, Stop date: 02/05/18 20:59:00 CDTNotes: (Same as: Solu-CORTEF) bendamustine 110 Route: IV, No Longer [place] mg + Overfill Drug form: Active 2018 Medical Diluent SOLKELLI Shah, Center Estimated 5 mL + Start date: Sodium Chloride 02/04/18 0.9% IV 50 mL 21:00:00 CDT, Duration: 1 doses or times, Stop date: 02/05/18 20:59:00 CDTNotes: (Same as: [place]) WASTE: F/P - Black; E - Yellow CHEMOTHERAPY; Infuse entire contents for full dose Benadryl 50 mg, 1 mL, No Longer [place] Route: IV, Active 2017 Medical Drug form: Center INJ ONCALL, PRN Allergic reaction, Start date: 02/04/18 18:02:00 CDT, Duration: 1 day, Stop date: 02/05/18 18:01:00 CDTNotes: (Same as: Benadryl) Elitek + Sodium 6 mg, Route: Inactive [place] Chloride 0.9% IV IVPBKELLI, 2018 Medical 50 mL Start date: Center 02/04/18 18:00:00 CDT, Duration: 1 doses or times, Stop date: 02/05/18 17:59:00 CDTNotes: Do not filter during preparation or infusion. IV line should be flushed with at least 15 mL saline prior to and following rasburicase infusion Alprazolam 0.25 0.25 mg, 1 No Longer [place] MG Oral Tablet tab, Route: Active 2017 Medical PO, Drug Center form: TAB, TID, Dosing Weight 63.273, kg, PRN as needed for anxiety, Start date: 02/04/18 10:33:00 CDT, Duration: 30 day, Stop date: 03/06/18 10:32:00 CDTNotes: With food or milk (Same as: Xanax) Humalog 15 unit, 0.15 No Longer [place] mL, Route: Active 2017 Medical SUB-Q, Drug Center form: SOLN, TID, Start date: 02/03/18 13:00:00 CDT, Stop date: 03/05/18 9:00:00 CDTNotes: (Same as: Humalog ) Roll in palms of hands gently; Do not shake `vigorously. "Single Patient Use Only " WASTE: F/P - Black; E - Municipal Trash Bin Stable for 28 days at room temperature. Expires in days from _Date Insulin Glargine 10 unit, No Longer [place] 100 UNT/ML Route: SUB-Q, Active 2017 Medical Injectable Daily, Dosing Center Solution Weight 63.273, kg, Start date: 02/03/18 9:00:00 CDT, Duration: 30 day, Stop date: 03/04/18 9:00:00 CDT Insulin Glargine 10 unit, 0.1 No Longer [place] 100 UNT/ML mL, Route: Active 2017 Medical Injectable SUB-Q, Drug Center Solution form: SOLN, Bedtime, Dosing Weight 63.273, kg, Start date: 02/02/18 21:00:00 CDT, Stop date: 03/03/18 21:00:00 CDTNotes: (Same as: Lantus) Do not hold insulin without contacting prescriber WASTE: F/P - Black; E - Municipal Trash Bin "single patient use only" Magnesium Oxide 800 mg, 2 No Longer [place] tab, Route: Active 2017 Medical PO, Drug Center form: TAB, BID, Dosing Weight 63.273, kg, Start date: 02/02/18 17:00:00 CDT, Duration: 30 day, Stop date: 03/04/18 9:00:00 CDTNotes: (Same as: Mag-Ox 400) Magnesium oxide [id number] elemental magnesium Dose=____mg magnesium oxide (___mg elemental magnesium) Ondansetron 4 mg, 2 mL, No Longer [place] Route: IVP, Active 2017 Medical Drug form: Center INJ, Q4H, Dosing Weight 63.273, kg, PRN Nausea, Start date: 02/02/18 16:15:00 CDT, Duration: 30 day, Stop date: 03/04/18 16:14:00 CDTNotes: (Same as: Zofran) MEDICATION WASTE Product Size: 4 mg Product Wasted: ___ mg Magnesium Oxide 800 mg, Inactive [facility] Route: PO, 2017 Medical Drug form: Center TAB, Daily, Dosing Weight 63.273, kg, Start date: 02/02/18 15:26:00 CDT, Duration: 30 day, Stop date: 03/04/18 9:00:00 CDT Versed 0.5 mg, Inactive [facility] Route: IV, 2018 Medical ONCE, Dosing Center Weight 63.273, kg, Start date: 02/02/18 14:49:00 CDT, Stop date: 02/02/18 14:49:00 CDT Fentanyl 25 microgram, Inactive [facility] Route: IV, 2018 Medical ONCE, Dosing Center Weight 63.273, kg, Start date: 02/02/18 14:49:00 CDT, Stop date: 02/02/18 14:49:00 CDT Versed 0.5 mg, Inactive [facility] Route: IV, 2018 Medical ONCE, Dosing Center Weight 63.273, kg, Start date: 02/02/18 14:44:00 CDT, Stop date: 02/02/18 14:44:00 CDT Fentanyl 25 microgram, Inactive [facility] Route: IV, 2018 Medical ONCE, Dosing Center Weight 63.273, kg, Start date: 02/02/18 14:44:00 CDT, Stop date: 02/02/18 14:44:00 CDT Furosemide 40 MG 40 mg, 1 tab, No Longer [facility] Oral Tablet Route: PO, Active 2017 Medical Drug form: Center TAB, BID, Dosing Weight 63.273, kg, Start date: 02/01/18 17:00:00 CDT, Duration: 30 day, Stop date: 03/03/18 9:00:00 CDTNotes: (Same as: Lasix) May cause GI upset. Give with food or milk. Vitamin B12 1,000 Inactive [place] microgram, 1 2018 Medical mL, Route: Center IM, Drug form: INJ, ONCE, Dosing Weight 63.273, kg, Start date: 02/01/18 12:18:00 CDT, Stop date: 02/01/18 12:18:00 CDTNotes: (Same As: Vitamin B12) Rasburicase 6 mg, Route: Inactive [place] IV, ONCE, 2018 Medical Dosing Weight Center 63.273, kg, Start date: 02/01/18 12:17:00 CDT, Stop date: 02/01/18 12:17:00 CDTNotes: Restricted Medication: All Doses of Rasburicase should be interchanged to Rasburicase 6 mg x1 dose. A second dose may be given for patients unresponsive to 1 dose. (Same as:Elitek) MEDICATION WASTE Product Size: 1.5 mg Product Wasted: ___ mg potassium 40 mEq, 2 No Longer [place] chloride 20 mEq tab, Route: Active 2018 Medical oral tablet, PO, Drug Center extended release form: ERTAB, Daily, Dosing Weight 63.273, kg, Start date: 01/31/18 9:00:00 CDT, Duration: 30 day, Stop date: 03/01/18 9:00:00 CDT potassium 40 mEq, 2 No Longer [place] chloride 20 mEq tab, Route: Active 2018 Medical oral tablet, PO, Drug Center extended release form: ERTAB, Daily, Dosing Weight 63.273, kg, Start date: 01/30/18 20:58:00 CDT, Stop date: 03/01/18 9:00:00 CDTNotes: (Same as: K-Dur 20) "Do Not Crush" For patients unable to swallow tablet, dissolve in one half glass of water. Allow about 2 minutes for the tablets to disintegrate. Stir before giving to prepare slurry and administer. Please exclude Patient&#8217 ;s with feeding tube less than 14 Tristanian (Dobhoff, J-tube etc) and pediatric and patients. With food and full glass of water Vitamin B 12 250 No Longer [place] microgram, 1 Active 2018 Medical tab, Route: Center PO, Drug form: TAB, Daily, Dosing Weight 63.273, kg, Start date: 01/30/18 9:00:00 CDT, Duration: 30 day, Stop date: 02/28/18 9:00:00 CDTNotes: (Same As: Vitamin B12) Lasix 40 mg, 4 mL, No Longer [facility] Route: IVP, Active 2017 Medical Drug form: Center INJ, BID, Dosing Weight 63.273, kg, Start date: 01/29/18 17:00:00 CDT, Stop date: 02/28/18 9:00:00 CDTNotes: (Same as: Lasix) MEDICATION WASTE Product Size: 40 mg Product Wasted: ___ mg Humulin N 8 unit, 0.08 Inactive [facility] mL, Route: 2017 Medical SUB-Q, Drug Center form: INJ, ONCE, Start date: 01/29/18 15:00:00 CDT, Stop date: 01/29/18 15:00:00 CDTNotes: Roll in palms of hands gently; Do not shake vigorously. (Same as: Humulin N) Do not hold insulin without contacting prescriber WASTE: F/P - Black; E - Municipal Trash Bin Stable for 28 days at room temperature Expires in days from _Date insulin, 20 unit, 0.2 No Longer [facility] isophane mL, Route: Active 2017 Medical SUB-Q, Drug Center form: INJ, Q8H-06, Dosing Weight 63.273, kg, Start date: 01/29/18 14:00:00 CDT, Stop date: 02/28/18 6:00:00 CDTNotes: Roll in palms of hands gently; Do not shake vigorously. (Same as: Humulin N) Do not hold insulin without contacting prescriber WASTE: F/P - Black; E - Municipal Trash Bin Stable for 28 days at room temperature Expires in days from _Date dexamethasone 40 mg, 10 No Longer [facility] tab, Route: Active 2017 Medical PO, Drug Center form: TAB, Q24H, Start date: 01/29/18 14:00:00 CDT, Duration: 2 doses or times, Stop date: 01/30/18 14:00:00 CDTNotes: Give with food. (Same As: Decadron) insulin regular 10 unit, 0.1 Inactive [facility] 100 units/mL mL, Route: 2018 [facility] human IV, Drug Center recombinant form: SOLN, ONCE, Start date: 01/29/18 13:00:00 CDT, Stop date: 01/29/18 13:00:00 CDTNotes: (Same as: Humulin R) Roll in palms of hands gently; Do not shake vigorously. "single patient use only" (Restricted to patients requiring a dose > 60 units) WASTE: F/P - Black; E - Municipal Trash Bin Stable for 28 days at room temperature Expires in days from _Date insulin regular 10 unit, 0.1 Inactive [facility] 100 units/mL mL, Route: 2017 [facility] human IV, Drug [place] recombinant form: SOLN, ONCE, Start date: 01/29/18 12:00:00 CDT, Stop date: 01/29/18 12:00:00 CDTNotes: (Same as: Humulin R) Roll in palms of hands gently; Do not shake vigorously. "single patient use only" (Restricted to patients requiring a dose > 60 units) WASTE: F/P - Black; E - Municipal Trash Bin Stable for 28 days at room temperature Expires in days from _Date Ferrlecit 125 mg, 10 No Longer [facility] mL, Route: Active 2017 [facility] IVPB, Daily, Center Dosing Weight 63.273, kg, Start date: 01/29/18 10:46:00 CDT, Duration: 10 doses or times, Stop date: 02/07/18 9:00:00 CDTNotes: (sodium ferric gluconate complex (elemental iron) 62.5 mg/5 ml INJ) "Limited stability. Use immediately after admixture" (Same as: Ferrlecit) MEDICATION WASTE Product Size: 62.5 mg Product Wasted: ___ mg Vitamin B 12 1,000 Inactive [facility] microgram, 1 2018 Medical mL, Route: Center IM, Drug form: INJ, ONCE, Dosing Weight 63.273, kg, Start date: 01/29/18 9:01:00 CDT, Stop date: 01/29/18 9:01:00 CDTNotes: (Same As: Vitamin B12) Lasix 40 mg, 4 mL, Inactive [facility] Route: IVP, 2018 Medical Drug form: Center INJ, BID, Dosing Weight 63.273, kg, Start date: 01/29/18 9:00:00 CDT, Duration: 30 day, Stop date: 02/27/18 17:00:00 CDTNotes: (Same as: Lasix) MEDICATION WASTE Product Size: 40 mg Product Wasted: ___ mg insulin, 7 unit, 0.07 Inactive [facility] isophane mL, Route: 2018 Medical SUB-Q, Drug Center form: INJ, ONCE, Dosing Weight 63.273, kg, Start date: 01/29/18 8:58:00 CDT, Stop date: 01/29/18 8:58:00 CDTNotes: Roll in palms of hands gently; Do not shake vigorously. (Same as: Humulin N) Do not hold insulin without contacting prescriber WASTE: F/P - Black; E - Municipal Trash Bin Stable for 28 days at room temperature Expires in days from _Date Paramjit packet 1 pkt, Route: No Longer [facility] PO, Drug Active 2017 Medical Form: PWDR, Center Dosing Weight 63.273, kg, BID-Before Meals, Start date: 01/28/18 16:30:00 CDT, Duration: 14 day, Stop date: 02/11/18 7:30:00 CDTNotes: (Same as: Paramjit [place]) Insulin Lispro 6 unit, 0.06 No Longer [facility] mL, Route: Active 2017 Medical SUB-, Drug Center form: SOLN, TID-Before Meals, Dosing Weight 63.273, kg, PRN Blood Glucose Results, Start date: 01/28/18 15:41:00 CDT, Duration: 30 day, Stop date: 02/27/18 15:40:00 CDTNotes: (Same as: Humalog ) Roll in palms of hands gently; Do not shake `vigorously. "Single Patient Use Only " WASTE: F/P - Black; E - Municipal Trash Bin Stable for 28 days at room temperature. Expires in days from _Date Dextrose 50% 12.5 gm, 25 No Longer [facility] Syringe mL, Route: Active 2017 Medical IVP, Drug Center Form: INJ, Dosing Weight 63.273, kg, PRN, PRN Blood Glucose Results, Start date: 01/28/18 15:41:00 CDT, Duration: 30 day, Stop date: 02/27/18 15:40:00 CDT Glucagon 1 mg, Route: No Longer [facility] IM, Drug Active 2017 Medical form: Center PDR/INJ, PRN, Dosing Weight 63.273, kg, PRN Blood Glucose Results, Start date: 01/28/18 15:41:00 CDT, Duration: 30 day, Stop date: 02/27/18 15:40:00 CDT insulin, 10 unit, 0.1 No Longer [facility] isophane mL, Route: Active 2017 Medical SUB-Q, Drug Center form: INJ, Q8H, Dosing Weight 63.273, kg, Start date: 01/28/18 14:58:00 CDT, Duration: 30 day, Stop date: 02/27/18 8:00:00 CDTNotes: Roll in palms of hands gently; Do not shake vigorously. (Same as: Humulin N) Do not hold insulin without contacting prescriber WASTE: F/P - Black; E - Municipal Trash Bin Stable for 28 days at room temperature Expires in days from _Date Rasburicase 6 mg, Route: Inactive [facility] IV, ONCE, 2018 Medical Dosing Weight Center 63.273, kg, Start date: 01/28/18 13:46:00 CDT, Stop date: 01/28/18 13:46:00 CDTNotes: Restricted Medication: All Doses of Rasburicase should be interchanged to Rasburicase 6 mg x1 dose. A second dose may be given for patients unresponsive to 1 dose. (Same as:Elitek) MEDICATION WASTE Product Size: 1.5 mg Product Wasted: ___ mg Insulin Lispro 8 unit, 0.08 No Longer [facility] mL, Route: Active 2017 Medical SUB-Q, Drug Center form: KAUSHIKN, TID-Before Meals, Dosing Weight 63.273, kg, Start date: 01/28/18 11:30:00 CDT, Stop date: 02/27/18 7:30:00 CDTNotes: (Same as: Humalog ) Roll in palms of hands gently; Do not shake `vigorously. "Single Patient Use Only " WASTE: F/P - Black; E - Municipal Trash Bin Stable for 28 days at room temperature. Expires in days from _Date Insulin regular 10 unit, 0.1 Inactive [facility] mL, Route: 2017 [facility] IV, Drug Center form: SOLN, ONCE, Dosing Weight 63.273, kg, Start date: 01/28/18 11:19:00 CDT, Stop date: 01/28/18 11:19:00 CDTNotes: (Same as: Humulin R) Roll in palms of hands gently; Do not shake vigorously. "single patient use only" (Restricted to patients requiring a dose > 60 units) WASTE: F/P - Black; E - Municipal Trash Bin Stable for 28 days at room temperature Expires in days from _Date 3 ML Insulin 5 unit, 0.05 Inactive [facility] Glargine 100 mL, Route: 2017 Medical UNT/ML Prefilled SUB-Q, Drug Center Syringe [Lantus] form: SOLN, ONCE, Dosing Weight 63.273, kg, Start date: 01/28/18 11:13:00 CDT, Stop date: 01/28/18 11:13:00 CDTNotes: Same as: Lantus) Do not hold insulin without contacting prescriber WASTE: F/P - Black; E - Municipal Trash Bin Insulin Lispro 10 unit, Inactive [facility] Route: SUB-Q, 2018 Medical ONCE, Dosing Center Weight 63.273, kg, Start date: 01/28/18 11:11:00 CDT, Stop date: 01/28/18 11:11:00 CDT NIFEdipine 30 mg 30 mg, 1 tab, No Longer [place] oral tablet, Route: PO, Active 2018 Medical extended release Drug form: Center ERTAB, Daily, Dosing Weight 63.273, kg, Start date: 01/28/18 9:00:00 CDT, Duration: 30 day, Stop date: 02/26/18 9:00:00 CDT potassium 20 mEq, 1 No Longer [place] chloride 20 mEq tab, Route: Active 2017 Medical oral tablet, PO, Drug Center extended release form: ERTAB, Q12H, Dosing Weight 63.273, kg, Start date: 01/28/18 9:00:00 CDT, Duration: 30 day, Stop date: 02/26/18 21:00:00 CDTNotes: (Same as: K-Dur 20) "Do Not Crush" For patients unable to swallow tablet, dissolve in one half glass of water. Allow about 2 minutes for the tablets to disintegrate. Stir before giving to prepare slurry and administer. Please exclude Patients with feeding tube less than 14 [place] (Dobhoff, J-tube etc) and pediatric and patients. With food and full glass of water Lovenox 30 mg, 0.3 No Longer [place] mL, Route: Active 2017 Medical SUB-Q, Drug Center form: INJ, [id number], Dosing Weight 63.273, kg, For CrCl Notes: (Same as: Lovenox) Magnesium Oxide 800 mg, 2 No Longer [place] tab, Route: Active 2018 Medical PO, Drug Center form: TAB, Daily, Dosing Weight 63.273, kg, Start date: 01/28/18 9:00:00 CDT, Duration: 30 day, Stop date: 02/26/18 9:00:00 CDTNotes: (Same as: Mag-Ox 400) Magnesium oxide [id number] elemental magnesium Dose=____mg magnesium oxide (___mg elemental magnesium) Docusate Sodium 100 mg, 1 No Longer [place] 100 MG Oral cap, Route: Active 2017 Medical Capsule [Colace] PO, Drug Center form: CAP, BID, Dosing Weight 63.273, kg, Start date: 01/28/18 9:00:00 CDT, Duration: 30 day, Stop date: 02/26/18 17:00:00 CDTNotes: (Same as: Colace) (Do Not Crush) Miralax 17 gm, 1 pkt, No Longer [place] Route: PO, Active 2017 Medical Drug form: Center PWDR, Daily, Dosing Weight 63.273, kg, Start date: 01/28/18 9:00:00 CDT, Duration: 30 day, Stop date: 02/26/18 9:00:00 CDTNotes: Dissolve in 8 oz of water or juice. (Same as: Miralax) Sodium Chloride 540 mL, Rate: Inactive [place] 0.9% IV 540 mL + Titrate as 2018 Medical riTUXimab 600 mg directed., Center Route: IV, Dosing Weight 63.273 kg, Total Volume: 600, Start date: 01/27/18 23:00:00 CDT, Duration: 1 doses or times, Stop date: 01/28/18 22:59:00 CDT, 1.69, [id number]: (Do not administer IV push or bolus). [...] Product Wasted: ___ mg dexamethasone 40 mg, 10 No Longer [place] tab, Route: Active 2017 Medical PO, Drug Center form: TAB, Daily, Start date: 01/27/18 23:00:00 CDT, Duration: 4 day, Stop date: 01/30/18 23:00:00 CDTNotes: Give with food. (Same As: Decadron) Insulin Lispro 10 unit, 0.1 No Longer [place] mL, Route: Active 2017 Medical SUB-Q, Drug Center form: SOLN, TID-Before Meals, Dosing Weight 63.273, kg, PRN Blood Glucose Results, Start date: 01/27/18 22:38:00 CDT, Duration: 30 day, Stop date: 02/26/18 22:37:00 CDTNotes: (Same as: Humalog ) Roll in palms of hands gently; Do not shake `vigorously. "Single Patient Use Only " WASTE: F/P - Black; E - Municipal Trash Bin Stable for 28 days at room temperature. Expires in days from _Date Glucagon 1 mg, Route: No Longer [facility] IM, Drug Active 2017 Medical form: Center PDR/INJ, PRN, Dosing Weight 63.273, kg, PRN Blood Glucose Results, Start date: 01/27/18 22:38:00 CDT, Duration: 30 day, Stop date: 02/26/18 22:37:00 CDT Dextrose 50% 12.5 gm, 25 No Longer [facility] Syringe mL, Route: Active 2017 Medical IVP, Drug Center Form: INJ, Dosing Weight 63.273, kg, PRN, PRN Blood Glucose Results, Start date: 01/27/18 22:38:00 CDT, Duration: 30 day, Stop date: 02/26/18 22:37:00 CDT meperidine 25 mg, 1 mL, Inactive [facility] Route: IVP, 2017 Medical Drug form: Center INJ, ONCE, Start date: 01/27/18 22:30:00 CDT, Stop date: 01/27/18 22:30:00 CDTNotes: (Same as: Demerol) "Use Precaution in Elderly, Seizure disorders, and Renal impairment" Tylenol 650 mg, 2 Inactive [facility] tab, Route: 2018 Medical PO, Drug Center form: TAB, ONCE, Start date: 01/27/18 22:30:00 CDT, Stop date: 01/27/18 22:30:00 CDTNotes: Do not exceed 4 gm/day. (Same as: Tylenol) Benadryl 50 mg, 1 mL, Inactive [facility] Route: IVP, 2018 Medical Drug form: Center INJ, ONCE, Start date: 01/27/18 22:30:00 CDT, Stop date: 01/27/18 22:30:00 CDTNotes: (Same as: Benadryl) Elitek + Sodium 6 mg, Route: Inactive [place] Chloride 0.9% IV IVPB, ONCE, 2018 Medical 50 mL Start date: [place] 01/27/18 22:30:00 CDT, Stop date: 01/27/18 22:30:00 CDTNotes: Restricted Medication: All Doses of Rasburicase should be interchanged to Rasburicase 6 mg x1 dose. A second dose may be given for patients unresponsive to 1 dose. (Same as:Elitek) MEDICATION WASTE Product Size: 1.5 mg Product Wasted: ___ mg meperidine 25 mg, 1 mL, No Longer [place] Route: IVP, Active 2017 Medical Drug form: [place] INJ, Q2H, PRN Allergic reaction, Start date: 01/27/18 21:35:00 CDT, Duration: 1 day, Stop date: 01/28/18 21:34:00 CDTNotes: (Same as: Demerol) "Use Precaution in Elderly, Seizure disorders, and Renal impairment" EPINEPHrine 1 0.1 mg, 1 mL, No Longer [place] mg/10ml Route: IVP, Active 2017 Medical (1:10,000) Drug form: [place] injectable SOLN, ONCE, solution PRN Allergic reaction, Start date: 01/27/18 21:34:00 CDTNotes: Luer lock syringe Benadryl 50 mg, 1 mL, No Longer [facility] Route: IVP, Active 2017 Medical Drug form: [place] INJ, ONCE, PRN Allergic reaction, Start date: 01/27/18 21:29:00 CDTNotes: (Same as: Benadryl) Solu-CORTEF 100 mg, 2 mL, No Longer [facility] Route: IVP, Active 2017 Medical Drug form: [place] PDR/INJ, ONCE, PRN Allergic reaction, Start date: 01/27/18 21:27:00 CDTNotes: (Same as: Solu-CORTEF) Zofran 8 mg, 4 mL, No Longer [facility] Route: IVP, Active 2017 Medical Drug form: [place] INJ, ONCE, PRN Nausea & Vomiting, Start date: 01/27/18 21:19:00 CDTNotes: (Same as: Zofran) MEDICATION WASTE Product Size: 4 mg Product Wasted: ___ mg Lasix 40 mg, 4 mL, No Longer [facility] Route: IVP, Active 2018 Medical Drug form: Center INJ, BID, Dosing Weight 63.273, kg, Start date: 01/27/18 17:00:00 CDT, Duration: 30 day, Stop date: 02/26/18 9:00:00 CDTNotes: (Same as: Lasix) MEDICATION WASTE Product Size: 40 mg Product Wasted: ___ mg Fluconazole 100 mg, 1 No Longer [place] tab, Route: Active 2018 Medical PO, Drug Center form: TAB, [id number], Dosing Weight 63.273, kg, Start date: 01/27/18 16:00:00 CDT, Duration: 30 day, Stop date: 02/25/18 16:00:00 CDT, ABX Indication: Immunocomprom ised Host ProphylaxisNo shabbir: (Same as: Diflucan) Saline Flush 10 mL, Route: No Longer [place] 0.9% IVP, Drug Active 2017 Medical Form: INJ, Center Dosing Weight 63.273, kg, Q8H, Start date: 01/27/18 16:00:00 CDT, Duration: 30 day, Stop date: 02/26/18 8:00:00 CDTNotes: (Same as: BD Posiflush) Levofloxacin 250 mg, 1 No Longer [facility] tab, Route: Active 2018 Medical PO, Drug Center form: TAB, [id number], Dosing Weight 63.273, kg, Start date: 01/27/18 15:18:00 CDT, Duration: 30 day, Stop date: 02/24/18 15:18:00 CDT, ABX Indication: Immunocomprom ised Host ProphylaxisNo shabbir: Do not give w/antacids, dairy pdt & minerals Take 1 hr before or 2 hr after dairy pdt (Same as:Levaquin) Lidocaine 50 mg, 5 mL, No Longer [place] Hydrochloride 10 Route: Active 2017 Medical MG/ML Injectable INTRADERM, Center Solution Drug Form: INJ, Dosing Weight 63.273, kg, ONCALL, Start date: 01/27/18 13:00:00 CDT, Duration: 30 day, Stop date: 02/26/18 12:59:00 CDTNotes: (Same as: Xylocaine) Saline Flush 10 mL, Route: No Longer [place] 0.9% IVP, Drug Active 2017 Medical Form: INJ, Center Dosing Weight 63.273, kg, PRN, PRN Line Flush, Start date: 01/27/18 12:49:00 CDT, Duration: 30 day, Stop date: 02/26/18 12:48:00 CDTNotes: (Same as: BD Posiflush) Fluconazole 100 mg, Inactive [facility] Route: PO, 2017 Medical Drug form: [place] TAB, [id number], Dosing Weight 63.273, kg, Start date: 01/27/18 12:00:00 CDT, Duration: 30 day, Stop date: 02/25/18 12:00:00 CDT, ABX Indication: Open Wound Prophylaxis valacyclovir 500 mg, 1 No Longer [facility] tab, Route: Active 2017 Medical PO, Drug Center form: TAB, Q24H, Dosing Weight 63.273, kg, Start date: 01/27/18 12:00:00 CDT, Duration: 30 day, Stop date: 02/25/18 12:00:00 CDTNotes: (Same As: Valtrex) Lasix 40 mg, 4 mL, Inactive [facility] Route: IVP, 2017 Medical Drug form: [place] INJ, Daily, Dosing Weight 63.273, kg, Start date: 01/27/18 11:27:00 CDT, Duration: 30 day, Stop date: 02/26/18 9:00:00 CDTNotes: (Same as: Lasix) MEDICATION WASTE Product Size: 40 mg Product Wasted: ___ mg duloxetine 30 mg, 1 cap, No Longer [facility] Route: PO, Active 2017 Medical Drug form: [place] DRC, Daily, Dosing Weight 63.636, kg, Start date: 01/27/18 9:00:00 CDT, Duration: 30 day, Stop date: 02/25/18 9:00:00 CDTNotes: (Same as: Cymbalta) (Do Not Crush) clopidogrel 75 mg, 1 tab, No Longer [place] Route: PO, Active 2018 Medical Drug form: Center TAB, Daily, Dosing Weight 63.636, kg, Start date: 01/27/18 9:00:00 CDT, Duration: 30 day, Stop date: 02/25/18 9:00:00 CDTNotes: (Same As: Plavix) Clonidine 0.1 mg, 1 No Longer [place] Hydrochloride tab, Route: Active 2018 Medical 0.1 MG Oral PO, Drug Center Tablet form: TAB, BID, Dosing Weight 63.636, kg, Start date: 01/27/18 9:00:00 CDT, Duration: 30 day, Stop date: 02/25/18 17:00:00 CDTNotes: (Same As: Catapres) Lasix 40 mg, 1 tab, Inactive [place] Route: PO, 2018 Medical Drug form: Center TAB, Daily, Dosing Weight 63.636, kg, Start date: 01/27/18 9:00:00 CDT, Duration: 30 day, Stop date: 02/25/18 9:00:00 CDTNotes: (Same as: Lasix) May cause GI upset. Give with food or milk. Insulin Glargine 18 unit, 0.18 No Longer [place] mL, Route: Active 2018 Medical SUB-Q, Drug Center form: SOLN, Daily, Dosing Weight 63.636, kg, Start date: 01/27/18 9:00:00 CDT, Stop date: 02/25/18 9:00:00 CDTNotes: Same as: Lantus) Do not hold insulin without contacting prescriber WASTE: F/P - Black; E - Municipal Trash Bin carvedilol 6.25 mg, 1 No Longer [place] tab, Route: Active 2018 Medical PO, Drug Center form: TAB, BID, Dosing Weight 63.636, kg, Start date: 01/27/18 9:00:00 CDT, Duration: 30 day, Stop date: 02/25/18 21:00:00 CDTNotes: Give with food. (Same As: Coreg) Aspirin 81 MG 81 mg, 1 tab, No Longer [place] Chewable Tablet Route: PO, Active 2018 Medical Drug form: [place] CHEWTAB, Daily, Dosing Weight 63.636, kg, Start date: 01/27/18 9:00:00 CDT, Duration: 30 day, Stop date: 02/25/18 9:00:00 CDTNotes: Take with food. Lovenox 30 mg, Route: No Longer [place] SUB-Q, Drug Active 2017 Medical form: INJ, [place] [id number], Dosing Weight 63.636, kg, For CrCl heparin 5,000 unit, 1 No Longer [place] mL, Route: Active 2018 Medical SUB-Q, Drug Center form: INJ, Q8H, Dosing Weight 63.636, kg, Start date: 01/27/18 8:00:00 CDT, Duration: 30 day, Stop date: 02/26/18 0:00:00 CDTNotes: porcine heparin pantoprazole 40 mg, 1 tab, No Longer [place] Route: PO, Active 2017 Medical Drug form: [place] ECTAB, Before Breakfast, Dosing Weight 63.636, kg, Start date: 01/27/18 7:30:00 CDT, Duration: 30 day, Stop date: 02/25/18 7:30:00 CDTNotes: Tablet should not be chewed or crushed. (Same as: Protonix) tramadol 50 mg, 1 tab, Inactive [place] hydrochloride 50 Route: PO, 2018 Medical MG Oral Tablet Drug form: [place] TAB, ONCE, Dosing Weight 63.835, kg, Start date: 01/26/18 23:12:00 CDT, Stop date: 01/26/18 23:12:00 CDTNotes: Not to exceed 400mg/day. (Same As: Ultram) Saline Flush 10 ml, Route: No Longer [facility] 0.9% IVP, Drug Active 2018 Medical Form: INJ, [place] Dosing Weight 63.636, kg, Q12H, Start date: 01/26/18 21:00:00 CDT, Duration: 30 day, Stop date: 02/25/18 9:00:00 CDTNotes: (Same as: BD Posiflush) Magnesium 1 gm, 50 mL, No Longer [place] Sulfate Route: IVPB, Active 2018 Medical Drug form: Center INJ, PRN, Dosing Weight 63.636, kg, PRN Abnormal Lab Result, For NON-ICU Patients Only., Start date: 01/26/18 20:30:00 CDT, Duration: 30 day, Stop date: 02/25/18 20:29:00 CDTNotes: WASTE: F/P - Sink; E - Municipal Trash Bin Magnesium Oxide 800 mg, 2 No Longer [place] tab, Route: Active 2018 Medical PO, Drug Center form: TAB, PRN, Dosing Weight 63.636, kg, PRN Abnormal Lab Result, For NON-ICU Patients Only., Start date: 01/26/18 20:30:00 CDT, Duration: 30 day, Stop date: 02/25/18 20:29:00 CDTNotes: (Same as: Mag-Ox 400) Magnesium oxide [id number] elemental magnesium Dose=____mg magnesium oxide (___mg elemental magnesium) Calcium 2 gm, 20 mL, No Longer [place] Gluconate Route: IVPB, Active 2017 Medical PRN, Dosing Center Weight 63.636, kg, PRN Abnormal Lab Result, For NON-ICU Patients Only., Start date: 01/26/18 20:30:00 CDT, Duration: 30 day, Stop date: 02/25/18 20:29:00 CDTNotes: WASTE: F/P - Sink; E - [employer] Trash Bin potassium 2 pkt, Route: No Longer [place] phosphate-sodium PO, Drug Active 2018 Medical phosphate 250 Form: Center mg-280 mg-160 mg PDR/REC, oral powder for Dosing Weight reconstitution 63.636, kg, PRN, PRN Abnormal Lab Result, For NON-ICU Patients Only, Start date: 01/26/18 20:30:00 CDT, Duration: 30 day, Stop date: 02/25/18 20:29:00 CDTNotes: (Same as: Phos-NaK) Each 1.5 gm pkt has 250mg phosphorous. Mix w/2.5oz water and stir. potassium 15 mmol, 5 No Longer [place] phosphate mL, Route: Active 2018 Medical IVPB, PRN, Center Dosing Weight 63.636, kg, PRN Abnormal Lab Result, For NON-ICU Patients Only., Start date: 01/26/18 20:30:00 CDT, Duration: 30 day, Stop date: 02/25/18 20:29:00 CDTNotes: (Same as: K Phosphate.) 1 mMol phoshate has 1.47 mEq potassium Infuse over 4 hours sodium phosphate 15 mmol, 5 No Longer [place] mL, Route: Active 2017 Medical IVPB, PRN, Center Dosing Weight 63.636, kg, PRN Abnormal Lab Result, For NON-ICU Patients Only., Start date: 01/26/18 20:30:00 CDT, Duration: 30 day, Stop date: 02/25/18 20:29:00 CDT Potassium 20 mEq, 1 No Longer [facility] Chloride tab, Route: Active 2017 [facility] PO, Drug Center form: ERTAB, PRN, Dosing Weight 63.636, kg, PRN Abnormal Lab Result, For NON-ICU Patients Only, Start date: 01/26/18 20:30:00 CDT, Duration: 30 day, Stop date: 02/25/18 20:29:00 CDTNotes: (Same as: K-Dur 20) "Do Not Crush" For patients unable to swallow tablet, dissolve in one half glass of water. Allow about 2 minutes for the tablets to disintegrate. Stir before giving to prepare slurry and administer. Please exclude Patients with feeding tube less than 14 [place] (Dobhoff, J-tube etc) and pediatric and patients. With food and full glass of water Insulin Lispro 3 unit, 0.03 No Longer [place] mL, Route: Active 2018 [facility]-, Drug Center form: SOLN, Bedtime, Dosing Weight 63.636, kg, PRN Blood Glucose Results, Start date: 01/26/18 20:29:00 CDT, Duration: 30 day, Stop date: 02/25/18 20:28:00 CDTNotes: (Same as: Humalog ) Roll in palms of hands gently; Do not shake `vigorously. "Single Patient Use Only " WASTE: F/P - Black; E - Municipal Trash Bin Stable for 28 days at room temperature. Expires in days from _Date Glucagon 1 mg, Route: No Longer [facility] IM, Drug Active 2017 Medical form: Center PDR/INJ, PRN, Dosing Weight 63.636, kg, PRN Blood Glucose Results, Start date: 01/26/18 20:29:00 CDT, Duration: 30 day, Stop date: 02/25/18 20:28:00 CDT Dextrose 50% 12.5 gm, 25 No Longer [facility] Syringe mL, Route: Active 2017 Medical IVP, Drug Center Form: INJ, Dosing Weight 63.636, kg, PRN, PRN Blood Glucose Results, Start date: 01/26/18 20:29:00 CDT, Duration: 30 day, Stop date: 02/25/18 20:28:00 CDT Furosemide 20 mg, 2 mL, Inactive [place] Route: IVP, 2018 Medical Drug form: [place] INJ, ONCE, Dosing Weight 63.636, kg, Start date: 01/26/18 20:25:00 CDT, Stop date: 01/26/18 20:25:00 CDTNotes: (Same as: Lasix) Saline Flush 10 ml, Route: No Longer [facility] 0.9% IVP, Drug Active 2017 Medical Form: INJ, Center Dosing Weight 63.636, kg, PRN, PRN Line Flush, Start date: 01/26/18 20:20:00 CDT, Duration: 30 day, Stop date: 02/25/18 20:19:00 CDTNotes: (Same as: BD Posiflush) Tylenol 650 mg, 2 No Longer [facility] tab, Route: Active 2018 Medical PO, Drug Center form: TAB, Q6H, Dosing Weight 63.636, kg, PRN Pain Score 1-3, Start date: 01/26/18 19:54:00 CDT, Duration: 30 day, Stop date: 02/25/18 19:53:00 CDTNotes: Do not exceed 4 gm/day. (Same as: Tylenol) 1.5 ML Insulin 14 units, No Longer [facility] Glargine 300 SUB-Q, Active 2018 Medical UNT/ML Prefilled Bedtime, 0 Center Syringe [Toujeo] Refill(s) glimepiride 4 mg 4 mg=1 tab, Active [place] oral tablet PO, BID, 0 2017 Medical Refill(s) Center Metformin 500 mg, PO, Active [place] BID, 0 2018 Medical Refill(s) Center Lorazepam 2 MG 2 mg=1 tab, No Longer [place] Oral Tablet PO, ONCE, Active 2018 Medical [Ativan] take 1 tab 10 Center minutes prior to [employer] and again during if needed, # 2 tab, 0 Refill(s) Furosemide 40 MG 40 mg=1 tab, No Longer [place] Oral Tablet PO, BID, # 60 Active 2018 Medical [Lasix] tab, 3 Center Refill(s), Pharmacy: [facility]/pharmacy #[id number] potassium 20 mEq=1 tab, No Longer [place] chloride 20 mEq PO, Q12H, # Active 2018 Medical oral tablet, 60 tab, 3 Center extended release Refill(s), Pharmacy: [facility]/pharmacy #[id number] Furosemide 40 MG 40 mg, 1 tab, Inactive [place] Oral Tablet Route: PO, 2018 Medical [Lasix] Drug form: Center TAB, BID, Dosing Weight 64.091, kg, Start date: 01/05/18 9:23:00 CDT, Duration: 30 day, Stop date: 02/04/18 9:00:00 CDTNotes: (Same as: Lasix) May cause GI upset. Give with food or milk. Ambien 5 mg, 1 tab, No Longer [place] Route: PO, Active 2017 Medical Drug form: Center TAB, Bedtime, Dosing Weight 64.091, kg, PRN Insomnia, Start date: 01/03/18 22:28:00 PHYSICAL METALLURGIST, Duration: 30 day, Stop date: 02/02/18 22:27:00 CDTNotes: (Same As: Ambien) potassium 20 mEq, 1 No Longer [place] chloride 20 mEq tab, Route: Active 2018 Medical oral tablet, PO, Drug Center extended release form: ERTAB, Q12H, Dosing Weight 64.091, kg, Start date: 01/03/18 21:00:00 PHYSICAL METALLURGIST, Duration: 30 day, Stop date: 02/02/18 9:00:00 CDTNotes: (Same as: K-Dur 20) "Do Not Crush" With food and full glass of water Potassium 10 mEq, 50 No Longer [place] Chloride mL, Route: Active 2018 Medical IVPB, Drug Center form: INJ, PRN, Dosing Weight 64.091, kg, PRN Abnormal Lab Result, For NON-ICU Patients Only, Start date: 01/03/18 13:47:00 PHYSICAL METALLURGIST, Duration: 30 day, Stop date: 02/02/18 14:46:00 CDTNotes: (Same as: KCL) Infuse over 2 hours. potassium 2 pkt, Route: No Longer [place] phosphate-sodium PO, Drug Active 2017 Medical phosphate 250 Form: Center mg-280 mg-160 mg PDR/REC, oral powder for Dosing Weight reconstitution 64.091, kg, PRN, PRN Abnormal Lab Result, For NON-ICU Patients Only, Start date: 01/03/18 13:47:00 PHYSICAL METALLURGIST, Duration: 30 day, Stop date: 02/02/18 14:46:00 CDTNotes: (Same as: Phos-NaK) Each 1.5 gm pkt has 250mg phosphorous. Mix w/2.5oz water and stir. potassium 15 mmol, 5 No Longer [place] phosphate mL, Route: Active 2017 Medical IVPB, PRN, Center Dosing Weight 64.091, kg, PRN Abnormal Lab Result, For NON-ICU Patients Only., Start date: 01/03/18 13:47:00 PHYSICAL METALLURGIST, Duration: 30 day, Stop date: 02/02/18 14:46:00 CDTNotes: (Same as: K Phosphate.) 1 mMol phoshate has 1.47 mEq potassium Infuse over 4 hours Calcium 2 gm, 20 mL, No Longer [place] Gluconate Route: IVPB, Active 2018 Medical PRN, Dosing Center Weight 64.091, kg, PRN Abnormal Lab Result, For NON-ICU Patients Only., Start date: 01/03/18 13:47:00 PHYSICAL METALLURGIST, Duration: 30 day, Stop date: 02/02/18 14:46:00 CDTNotes: WASTE: F/P - Sink; E - Municipal Trash Bin Magnesium Oxide 800 mg, 2 No Longer [place] tab, Route: Active 2018 Medical PO, Drug Center form: TAB, PRN, Dosing Weight 64.091, kg, PRN Abnormal Lab Result, For NON-ICU Patients Only., Start date: 01/03/18 13:47:00 PHYSICAL METALLURGIST, Duration: 30 day, Stop date: 02/02/18 14:46:00 CDTNotes: (Same as: Mag-Ox 400) Magnesium oxide [id number] elemental magnesium Dose=____mg magnesium oxide (___mg elemental magnesium) Magnesium 1 gm, 100 mL, No Longer [place] Sulfate Route: IVPB, Active 2018 Medical Drug form: [place] INJ, PRN, Dosing Weight 64.091, kg, PRN Abnormal Lab Result, For NON-ICU Patients Only., Start date: 01/03/18 13:47:00 PHYSICAL METALLURGIST, Duration: 30 day, Stop date: 02/02/18 14:46:00 CDTNotes: WASTE: F/P - Sink; E - Municipal Trash Bin sodium phosphate 15 mmol, 5 No Longer [place] mL, Route: Active 2018 Medical IVPB, PRN, Center Dosing Weight 64.091, kg, PRN Abnormal Lab Result, For NON-ICU Patients Only., Start date: 01/03/18 13:47:00 PHYSICAL METALLURGIST, Duration: 30 day, Stop date: 02/02/18 14:46:00 CDT Miralax 17 gm, 1 pkt, No Longer [place] Route: PO, Active 2017 Medical Drug form: [place] PWDR, BID, Dosing Weight 64.091, kg, Start date: 01/02/18 17:33:00 PHYSICAL METALLURGIST, Duration: 30 day, Stop date: 02/01/18 17:00:00 CDTNotes: Dissolve in 8 oz of water or juice. (Same as: Miralax) Calcium 1,000 mg, 2 No Longer [place] Carbonate 500 MG tab, Route: Active 2018 Medical Chewable Tablet PO, Drug Center form: CHEWTAB, PRN, Dosing Weight 64.091, kg, PRN Abnormal Lab Result, FOR ICU USE ONLY, Start date: 01/01/18 22:59:00 PHYSICAL METALLURGIST, Duration: 30 day, Stop date: 01/31/18 23:58:00 CDTNotes: (Same As: Tums) Calcium Carbonate 500 pr=456 mg elemental calcium Dose= mg calcium carbonate ( mg elemental calcium) potassium 2 pkt, Route: No Longer [place] phosphate-sodium PO, Drug Active 2018 Medical phosphate 250 Form: Center mg-280 mg-160 mg PDR/REC, oral powder for Dosing Weight reconstitution 64.091, kg, PRN, PRN Abnormal Lab Result, FOR ICU USE ONLY, Start date: 01/01/18 22:59:00 PHYSICAL METALLURGIST, Duration: 30 day, Stop date: 01/31/18 23:58:00 CDTNotes: (Same as: Phos-NaK) Each 1.5 gm pkt has 250mg phosphorous. Mix w/2.5oz water and stir. Calcium 1 gm, 10 mL, No Longer [place] Gluconate Route: IVPB, Active 2017 Medical PRN, Dosing Center Weight 64.091, kg, PRN Abnormal Lab Result, Start date: 01/01/18 22:59:00 PHYSICAL METALLURGIST, Duration: 30 day, Stop date: 01/31/18 23:58:00 CDT, FOR ICU USE ONLYNotes: WASTE: F/P - Sink; E - Municipal Trash Bin Magnesium 2 gm, 50 mL, No Longer [place] Sulfate Route: IVPB, Active 2017 Medical Drug form: Center INJ, PRN, Dosing Weight 64.091, kg, PRN Abnormal Lab Result, Start date: 01/01/18 22:59:00 PHYSICAL METALLURGIST, Duration: 30 day, Stop date: 01/31/18 23:58:00 CDT, FOR ICU USE ONLYNotes: WASTE: F/P - Sink; E - Municipal Trash Bin Magnesium Oxide 800 mg, 2 No Longer [place] tab, Route: Active 2018 Medical PO, Drug Center form: TAB, PRN, Dosing Weight 64.091, kg, PRN Abnormal Lab Result, FOR ICU USE ONLY, Start date: 01/01/18 22:59:00 PHYSICAL METALLURGIST, Duration: 30 day, Stop date: 01/31/18 23:58:00 CDTNotes: (Same as: Mag-Ox 400) Magnesium oxide [id number] elemental magnesium Dose=____mg magnesium oxide (___mg elemental magnesium) sodium phosphate 15 mmol, 5 No Longer [place] mL, Route: Active 2018 Medical IVPB, PRN, Center Dosing Weight 64.091, kg, PRN Abnormal Lab Result, Start date: 01/01/18 22:59:00 PHYSICAL METALLURGIST, Duration: 30 day, Stop date: 01/31/18 23:58:00 CDT, FOR ICU USE ONLY potassium 30 mmol, 10 No Longer [place] phosphate mL, Route: Active 2017 Medical IVPB, PRN, Center Dosing Weight 64.091, kg, PRN Abnormal Lab Result, Start date: 01/01/18 22:59:00 PHYSICAL METALLURGIST, Duration: 30 day, Stop date: 01/31/18 23:58:00 CDT, FOR ICU USE ONLYNotes: (Same as: K Phosphate.) 1 mMol phoshate has 1.47 mEq potassium Infuse over 4 hours Potassium 20 mEq, 100 No Longer [place] Chloride mL, Route: Active 2018 Medical IVPB, Drug Center form: INJ, PRN, Dosing Weight 64.091, kg, PRN Abnormal Lab Result, Via central line, Start date: 01/01/18 22:59:00 PHYSICAL METALLURGIST, Duration: 30 day, Stop date: 01/31/18 23:58:00 CDT, FOR ICU USE ONLYNotes: (Same as: KCL) Infuse no faster than 10 mEq/hr if given peripherally. Insulin Glargine 11 unit, 0.11 No Longer [place] 100 UNT/ML mL, Route: Active 2018 Medical Injectable SUB-Q, Drug Center Solution form: SOLN, Bedtime, Dosing Weight 64.091, kg, Start date: 01/01/18 21:00:00 PHYSICAL METALLURGIST, Duration: 30 day, Stop date: 01/30/18 21:00:00 CDTNotes: Same as: Lantus) Do not hold insulin without contacting prescriber WASTE: F/P - Black; E - Municipal Trash Bin heparin sodium, 5,000 unit, 1 No Longer [place] porcine 2500 mL, Route: Active 2017 Medical UNT/ML SUB-Q, Drug Center Injectable form: INJ, Solution Q12H, Dosing Weight 64.091, kg, Start date: 01/01/18 21:00:00 PHYSICAL METALLURGIST, Duration: 30 day, Stop date: 01/31/18 9:00:00 CDTNotes: porcine heparin Lactulose 667 10 gm, 15 mL, Inactive [place] MG/ML Oral Route: PO, 2018 Medical Solution Drug form: [place] SYRP, ONCE, Dosing Weight 64.091, kg, Start date: 01/01/18 17:33:00 PHYSICAL METALLURGIST, Stop date: 01/01/18 17:33:00 CSTNotes: (Same as:Chronulac) Docusate Sodium 1 tab, Route: No Longer [place] 50 MG / PO, Drug Active 2017 Medical sennosides, ALF Form: TAB, Center 8.6 MG Oral Dosing Weight Tablet 64.091, kg, BID, Start date: 01/01/18 17:31:00 PHYSICAL METALLURGIST, Duration: 30 day, Stop date: 01/31/18 17:00:00 CDTNotes: (Same as Senokot-S) Equiv. to Indira-Colace. Dextrose 50% 25 gm, 50 mL, No Longer [place] Syringe Route: IVP, Active 2018 Medical Drug Form: [place] INJ, Dosing Weight 64.091, kg, PRN, PRN Blood Glucose Results, Start date: 01/01/18 15:43:00 PHYSICAL METALLURGIST, Duration: 30 day, Stop date: 01/31/18 16:42:00 CDT Glucagon 1 mg, Route: No Longer [place] IM, Drug Active 2017 Medical form: [place] PDR/INJ, PRN, Dosing Weight 64.091, kg, PRN Blood Glucose Results, Start date: 01/01/18 15:43:00 PHYSICAL METALLURGIST, Duration: 30 day, Stop date: 01/31/18 16:42:00 CDT Insulin Lispro 2 unit, 0.02 No Longer [place] mL, Route: Active 2018 Medical SUB-Q, Drug Center form: SOLN, TID-Before Meals, Dosing Weight 64.091, kg, PRN Blood Glucose Results, Start date: 01/01/18 15:43:00 PHYSICAL METALLURGIST, Duration: 30 day, Stop date: 01/31/18 15:42:00 CDTNotes: (Same as: Humalog ) Roll in palms of hands gently; Do not shake `vigorously. "Single Patient Use Only " WASTE: F/P - Black; E - Municipal Trash Bin Stable for 28 days at room temperature. Expires in days from _Date NIFEdipine 30 mg 30 mg, 1 tab, No Longer [place] oral tablet, Route: PO, Active 2018 Medical extended release Drug form: [place] ERTAB, Daily, Dosing Weight 64.091, kg, Start date: 01/01/18 9:00:00 PHYSICAL METALLURGIST, Duration: 30 day, Stop date: 01/30/18 9:00:00 CDTNotes: (Same as: Adalat CC, Procardia XL) Give on empty stomach. Take 1 hour before or 2 hours after meal; "Avoid grapefruit and grapefruit juice". Do not crush duloxetine 30 mg, 1 cap, No Longer [place] Route: PO, Active 2017 Medical Drug form: [place] DRC, Daily, Dosing Weight 64.091, kg, Start date: 01/01/18 9:00:00 PHYSICAL METALLURGIST, Duration: 30 day, Stop date: 01/30/18 9:00:00 CDTNotes: (Same as: Cymbalta) (Do Not Crush) clopidogrel 75 mg, 1 tab, No Longer [place] Route: PO, Active 2017 Medical Drug form: [place] TAB, Daily, Dosing Weight 64.091, kg, Start date: 01/01/18 9:00:00 PHYSICAL METALLURGIST, Duration: 30 day, Stop date: 01/30/18 9:00:00 CDTNotes: (Same As: Plavix) carvedilol 12.5 mg, 1 No Longer [place] tab, Route: Active 2018 Medical PO, Drug Center form: TAB, BID, Dosing Weight 64.091, kg, Start date: 01/01/18 9:00:00 PHYSICAL METALLURGIST, Duration: 30 day, Stop date: 01/30/18 17:00:00 CDTNotes: Give with food. (Same As: Coreg) Clonidine 0.1 mg, 1 No Longer [place] Hydrochloride tab, Route: Active 2018 Medical 0.1 MG Oral PO, Drug Center Tablet form: TAB, BID, Dosing Weight 64.091, kg, Start date: 01/01/18 9:00:00 PHYSICAL METALLURGIST, Duration: 30 day, Stop date: 01/30/18 17:00:00 CDTNotes: (Same As: Catapres) Aspirin 81 MG 81 mg, 1 tab, No Longer [facility] Chewable Tablet Route: PO, Active 2017 Medical Drug form: [place] CHEWTAB, Daily, Dosing Weight 64.091, kg, Start date: 01/01/18 9:00:00 PHYSICAL METALLURGIST, Duration: 30 day, Stop date: 01/30/18 9:00:00 CDTNotes: Take with food. pantoprazole 40 mg, 1 tab, No Longer [facility] Route: PO, Active 2017 Medical Drug form: [place] ECTAB, Before Breakfast, Dosing Weight 64.091, kg, Start date: 01/01/18 7:30:00 PHYSICAL METALLURGIST, Duration: 30 day, Stop date: 01/30/18 7:30:00 CDTNotes: Tablet should not be chewed or crushed. (Same as: Protonix) valacyclovir 500 mg, 1 No Longer [facility] tab, Route: Active 2017 Medical PO, Drug Center form: TAB, Q24H, Dosing Weight 64.091, kg, Start date: 01/01/18 1:00:00 PHYSICAL METALLURGIST, Duration: 30 day, Stop date: 01/29/18 22:30:00 CDTNotes: (Same As: Valtrex) Lasix 40 mg, 4 mL, No Longer [facility] Route: IVP, Active 2017 Medical Drug form: [place] INJ, Q12H, Dosing Weight 64.091, kg, Start date: 01/01/18 0:55:00 PHYSICAL METALLURGIST, Duration: 30 day, Stop date: 01/30/18 21:00:00 CDTNotes: (Same as: Lasix) MEDICATION WASTE Product Size: 40 mg Product Wasted: ___ mg Acetaminophen 650 mg, 2 No Longer [place] 325 MG Oral tab, Route: Active 2018 Medical Tablet PO, Drug Center form: TAB, Q6H, Dosing Weight 64.091, kg, PRN Pain 1-3/Temp > 100.4 F, Start date: 01/01/18 0:54:00 PHYSICAL METALLURGIST, Duration: 30 day, Stop date: 01/31/18 0:53:00 CDTNotes: Do not exceed 4 gm/day. (Same as: Tylenol) Aspirin 81 mg, 1 tab, Inactive [facility] Route: PO, 2017 Medical Drug form: [place] CHEWTAB, Daily, Dosing Weight 66.818, kg, Start date: 11/29/17 9:00:00 PHYSICAL METALLURGIST, Duration: 30 day, Stop date: 12/28/17 9:00:00 CSTNotes: Take with food. Plavix 75 mg, 1 tab, Inactive [facility] Route: PO, 2017 Medical Drug form: [place] TAB, Daily, Dosing Weight 66.818, kg, Start date: 11/29/17 9:00:00 PHYSICAL METALLURGIST, Duration: 30 day, Stop date: 12/28/17 9:00:00 CSTNotes: (Same As: Plavix) valACYclovir 500 500 mg=1 tab, No Longer [place] mg oral tablet PO, Q24H, X Active 2017 Medical 90 day, # 90 Center tab, 0 Refill(s) levofloxacin 250 250 mg=1 tab, No Longer [place] mg oral tablet PO, [id number], Active 2018 Medical X 90 day, # Center 90 tab, 0 Refill(s) valACYclovir 500 500 mg=1 tab, Inactive [place] mg oral tablet PO, Q24H, 0 2018 Medical Refill(s) Center levofloxacin 250 250 mg=1 tab, Inactive [place] mg oral tablet PO, [id number], 2018 Medical 0 Refill(s) Center Furosemide 20 MG 20 mg=1 tab, No Longer [place] Oral Tablet PO, Daily, # Active 2018 Medical [Lasix] 90 tab, 0 Center Refill(s) fluconazole 100 100 mg=1 tab, No Longer [place] mg oral tablet PO, [id number], Active 2018 Medical X 90 day, # Center 90 tab, 0 Refill(s) Acetaminophen 650 mg=2 tab, No Longer [facility] [place] 325 MG Oral PO, Q6H, PRN Active 2017 Medical Tablet Pain 1-3/Temp Center > 100.4 F, 0 Refill(s) pantoprazole 40 40 mg=1 tab, No Longer [facility] mg oral enteric PO, Before Active 2017 Medical coated tablet Breakfast, 0 [place] Refill(s) NIFEdipine 30 mg 30 mg=1 tab, No Longer [facility] oral tablet, PO, Daily, 0 Active 2017 Medical extended release Refill(s) Center Insulin Glargine 14 unit, No Longer [facility] 100 UNT/ML SUB-Q, Active 2017 Medical Injectable Bedtime, 0 [place] Solution Refill(s) DULoxetine 30 mg 30 mg=1 cap, No Longer [facility] oral delayed PO, Daily, 0 Active 2017 Medical release capsule Refill(s) [place] clopidogrel 75 75 mg=1 tab, No Longer [facility] mg oral tablet PO, Daily, 0 Active 2017 Medical Refill(s) Center Clonidine 0.1 mg=1 tab, No Longer [facility] Hydrochloride PO, BID, 0 Active 2017 Medical 0.1 MG Oral Refill(s) [place] Tablet carvedilol 12.5 6.25 mg=0.5 No Longer [facility] mg oral tablet tab, PO, BID, Active 2017 Medical 0 Refill(s) Center Aspirin 81 MG 81 mg=1 tab, No Longer [facility] Chewable Tablet PO, Daily, 0 Active 2017 Medical Refill(s) Center Midazolam Route: IV, Inactive [place] ONCE, Dosing 2018 Medical Weight Center 66.818, kg, Start date: 11/28/17 8:30:00 PHYSICAL METALLURGIST, Stop date: 11/28/17 8:30:00 PHYSICAL METALLURGIST Fentanyl 25 microgram, Inactive [place] Route: IV, 2018 Medical ONCE, Dosing Center Weight 66.818, kg, Start date: 11/28/17 8:30:00 PHYSICAL METALLURGIST, Stop date: 11/28/17 8:30:00 PHYSICAL METALLURGIST Midazolam 1 mg, Route: Inactive [place] IVP, Drug 2017 Medical form: INJ, Center ONCE, Dosing Weight 66.818, kg, Start date: 11/28/17 8:10:00 PHYSICAL METALLURGIST, Stop date: 11/28/17 8:10:00 PHYSICAL METALLURGIST Fentanyl 50 microgram, Inactive [place] Route: IVP, 2017 Medical Drug form: [place] INJ, ONCE, Dosing Weight 66.818, kg, Start date: 11/28/17 8:10:00 PHYSICAL METALLURGIST, Stop date: 11/28/17 8:10:00 PHYSICAL METALLURGIST potassium 2 pkt, Route: No Longer [place] phosphate-sodium PO, Drug Active 2017 Medical phosphate 250 Form: [place] mg-280 mg-160 mg PDR/REC, oral powder for Dosing Weight reconstitution 66.818, kg, PRN, PRN Abnormal Lab Result, For NON-ICU Patients Only, Start date: 11/28/17 5:41:00 PHYSICAL METALLURGIST, Duration: 30 day, Stop date: 12/28/17 5:40:00 CSTNotes: (Same as: Phos-NaK) Each 1.5 gm pkt has 250mg phosphorous. Mix w/2.5oz water and stir. Potassium 20 mEq, 15 No Longer [place] Chloride mL, Route: Active 2018 Medical [place], Drug Center form: LIQ, PRN, Dosing Weight 66.818, kg, PRN Abnormal Lab Result, For NON-ICU Patients Only, Start date: 11/28/17 5:41:00 PHYSICAL METALLURGIST, Duration: 30 day, Stop date: 12/28/17 5:40:00 CSTNotes: (Same as: Potassium Chloride) sodium phosphate 15 mmol, 5 No Longer [place] mL, Route: Active 2017 Medical IVPB, PRN, Center Dosing Weight 66.818, kg, PRN Abnormal Lab Result, For NON-ICU Patients Only., Start date: 11/28/17 5:41:00 PHYSICAL METALLURGIST, Duration: 30 day, Stop date: 12/28/17 5:40:00 PHYSICAL METALLURGIST potassium 15 mmol, 5 No Longer [facility] phosphate mL, Route: Active 2018 Medical IVPB, PRN, Center Dosing Weight 66.818, kg, PRN Abnormal Lab Result, For NON-ICU Patients Only., Start date: 11/28/17 5:41:00 PHYSICAL METALLURGIST, Duration: 30 day, Stop date: 12/28/17 5:40:00 CSTNotes: (Same as: K Phosphate.) 1 mMol phoshate has 1.47 mEq potassium Infuse over 4 hours Magnesium 1 gm, 100 mL, No Longer [place] Sulfate Route: IVPB, Active 2018 Medical Drug form: Center INJ, PRN, Dosing Weight 66.818, kg, PRN Abnormal Lab Result, For NON-ICU Patients Only., Start date: 11/28/17 5:41:00 PHYSICAL METALLURGIST, Duration: 30 day, Stop date: 12/28/17 5:40:00 CSTNotes: WASTE: F/P - Sink; E - Municipal Trash Bin Calcium 3 gm, 30 mL, No Longer [place] Gluconate Route: IVPB, Active 2017 Medical PRN, Dosing Center Weight 66.818, kg, PRN Abnormal Lab Result, For NON-ICU Patients Only., Start date: 11/28/17 5:41:00 PHYSICAL METALLURGIST, Duration: 30 day, Stop date: 12/28/17 5:40:00 CSTNotes: WASTE: F/P - Sink; E - Municipal Trash Bin Magnesium Oxide 800 mg, 2 No Longer [place] tab, Route: Active 2018 Medical PO, Drug Center form: TAB, PRN, Dosing Weight 66.818, kg, PRN Abnormal Lab Result, For NON-ICU Patients Only., Start date: 11/28/17 5:41:00 PHYSICAL METALLURGIST, Duration: 30 day, Stop date: 12/28/17 5:40:00 CSTNotes: (Same as: Mag-Ox 400) Magnesium oxide [id number] elemental magnesium Dose=____mg magnesium oxide (___mg elemental magnesium) Rasburicase 6 mg, Route: Inactive [place] IV, ONCE, 2018 Medical Dosing Weight Center 66.818, kg, Start date: 11/27/17 9:41:00 PHYSICAL METALLURGIST, Stop date: 11/27/17 9:41:00 CSTNotes: Restricted Medication: All Doses of Rasburicase should be interchanged to Rasburicase 6 mg x1 dose. A second dose may be given for patients unresponsive to 1 dose. (Same as:Elitek) MEDICATION WASTE Product Size: 1.5 mg Product Wasted: __0_ mg capsaicin 1 appl, No Longer [place] topical 0.025% Route: TOP, Active 2018 Medical cream QID, Drug Center form: CRM, Start date: 11/26/17 9:00:00 PHYSICAL METALLURGIST, Duration: 30 day, Stop date: 12/25/17 21:00:00 CSTNotes: (Same As: Zostrix) Furosemide 40 MG 40 mg, 1 tab, No Longer [place] Oral Tablet Route: PO, Active 2018 Medical [Lasix] Drug form: Center TAB, Daily, Dosing Weight 69.909, kg, Start date: 11/26/17 9:00:00 PHYSICAL METALLURGIST, Duration: 30 day, Stop date: 12/25/17 9:00:00 CSTNotes: (Same as: Lasix) May cause GI upset. Give with food or milk. heparin additive 500 mL, Rate: No Longer [place] 25,000 unit [14 16.29 ml/hr, Active 2017 Medical unit/kg/hr] + Infuse over: [place] Premix Diluent 30.7 hr, Sodium Chloride Route: IV, 0.45% 500 mL Dosing Weight 58.17 kg, Total Volume: 500 mL, Start date: 11/26/17 7:16:00 PHYSICAL METALLURGIST, Duration: 30 day, Stop date: 12/26/17 7:15:00 PHYSICAL METALLURGIST, 1.62, [id number]: Total Concentration =50 unit/ ml Total qmiree=909 ml Send Med Request 2 hours prior to next bag Diclofenac 2 gm, Route: No Longer [place] Sodium 0.01 TOP, Drug Active 2018 Medical MG/MG Topical form: GEL, [place] Gel [Voltaren] QID, Dosing Weight 66.818, kg, Start date: 11/25/17 21:00:00 PHYSICAL METALLURGIST, Duration: 30 day, Stop date: 12/25/17 17:00:00 PHYSICAL METALLURGIST Dulcolax 10 mg, 1 No Longer [place] Laxative supp, Route: Active [address], Drug Center form: SUPP, Daily, Dosing Weight 66.818, kg, PRN Constipation, Start date: 11/25/17 10:46:00 PHYSICAL METALLURGIST, Duration: 30 day, Stop date: 12/25/17 10:45:00 CSTNotes: (Same As: Dulcolax, Bisco-Lax) Docusate Sodium 100 mg, 1 No Longer [place] 100 MG Oral cap, Route: Active 2018 Medical Capsule PO, Drug Center form: CAP, BID, Dosing Weight 69.909, kg, Start date: 11/24/17 17:00:00 PHYSICAL METALLURGIST, Duration: 30 day, Stop date: 12/24/17 9:00:00 CSTNotes: (Same as: Colace) (Do Not Crush) Lorazepam 1 mg, 0.5 mL, Inactive [place] Route: IVP, 2017 Medical Drug form: [place] INJ, ONCE, Dosing Weight 69.909, kg, PRN Anxiety, Start date: 11/24/17 11:46:00 CSTNotes: (Same as: Ativan) Alprazolam 0.25 0.25 mg, 1 Inactive [place] MG Oral Tablet tab, Route: 2018 Medical PO, Drug Center form: TAB, ONCE, Dosing Weight 69.909, kg, Start date: 11/24/17 11:46:00 PHYSICAL METALLURGIST, Stop date: 11/24/17 11:46:00 CSTNotes: With food or milk (Same as: Xanax) Insulin Lispro 3 unit, 0.03 No Longer [place] mL, Route: Active 2017 [facility] SUB-Q, Drug Center form: SOLN, TID-Before Meals, Dosing Weight 69.909, kg, Start date: 11/24/17 11:30:00 PHYSICAL METALLURGIST, Duration: 30 day, Stop date: 12/24/17 7:30:00 CSTNotes: (Same as: Humalog ) Roll in palms of hands gently; Do not shake `vigorously. "Single Patient Use Only " WASTE: F/P - Black; E - Municipal Trash Bin Stable for 28 days at room temperature. Expires in days from _Date Miralax 17 gm, 1 pkt, No Longer [place] Route: PO, Active 2017 Medical Drug form: [place] PWDR, Daily, Dosing Weight 69.909, kg, Start date: 11/24/17 10:42:00 PHYSICAL METALLURGIST, Duration: 30 day, Stop date: 12/24/17 9:00:00 CSTNotes: Dissolve in 8 oz of water or juice. (Same as: Miralax) Acetaminophen 1 tab, Route: No Longer [place] 300 MG / Codeine PO, Drug Active 2018 Medical Phosphate 30 MG Form: TAB, Center Oral Tablet Dosing Weight [Tylenol with 69.909, kg, Codeine #3] Q8H, PRN Pain Score 1-3, Start date: 11/24/17 1:10:00 PHYSICAL METALLURGIST, Duration: 30 day, Stop date: 12/24/17 1:09:00 CSTNotes: Do not exceed 4gm/day of acetaminophen . (Same as: Tylenol with Codeine # 3) Melatonin 3 MG 3 mg, 1 tab, No Longer [place] Extended Release Route: PO, Active 2017 Medical Tablet Drug Form: [place] TAB, Dosing Weight 69.909, kg, Bedtime, PRN as needed for insomnia, Start date: 11/23/17 20:51:00 PHYSICAL METALLURGIST, Duration: 30 day, Stop date: 12/23/17 20:50:00 CSTNotes: (Same as: Melatonin) Furosemide 40 MG 40 mg, 1 tab, No Longer [place] Oral Tablet Route: PO, Active 2018 Medical [Lasix] Drug form: [place] TAB, BID, Dosing Weight 69.909, kg, Start date: 11/23/17 9:00:00 PHYSICAL METALLURGIST, Duration: 30 day, Stop date: 12/22/17 17:00:00 CSTNotes: (Same as: Lasix) May cause GI upset. Give with food or milk. Simethicone 80 mg, 1 tab, No Longer [place] Route: CHEW, Active 2017 Medical Drug form: [place] CHEWTAB, TID, Dosing Weight 69.909, kg, PRN Gas, Start date: 11/22/17 16:31:00 PHYSICAL METALLURGIST, Duration: 30 day, Stop date: 12/22/17 16:30:00 CSTNotes: (Same as: Mylicon) Lasix 20 mg, 2 mL, Inactive [facility] Route: IV, 2018 Medical Drug form: [place] INJ, ONCE, Dosing Weight 69.909, kg, Start date: 11/22/17 1:33:00 PHYSICAL METALLURGIST, Stop date: 11/22/17 1:33:00 CSTNotes: (Same as: Lasix) Lasix 40 mg, 4 mL, Inactive [facility] Route: IVP2017 Medical Drug form: [place] INJ, Q8H, Dosing Weight 69.909, kg, Start date: 11/21/17 20:00:00 PHYSICAL METALLURGIST, Duration: 30 day, Stop date: 12/21/17 12:00:00 CSTNotes: (Same as: Lasix) MEDICATION WASTE Product Size: 40 mg Product Wasted: ___ mg Levaquin 250 mg, 1 No Longer [facility] tab, Route: Active 2018 Medical PO, Drug Center form: TAB, [id number], Dosing Weight 69.909, kg, Start date: 11/21/17 16:00:00 PHYSICAL METALLURGIST, Duration: 10 day, Stop date: 11/30/17 16:00:00 PHYSICAL METALLURGIST, ABX Indication: Other (specify in Comments) Furosemide 40 mg, 4 mL, Inactive [facility] Route: IVP2017 Medical Drug form: [place] INJ, ONCE, Dosing Weight 69.909, kg, Start date: 11/21/17 9:27:00 PHYSICAL METALLURGIST, Stop date: 11/21/17 9:27:00 CSTNotes: (Same as: Lasix) MEDICATION WASTE Product Size: 40 mg Product Wasted: ___ mg Aspirin 81 MG 81 mg, 1 tab, No Longer [facility] Enteric Coated Route: PO, Active 2017 Medical Tablet Drug form: [place] ECTAB, Daily, Dosing Weight 69.909, kg, Start date: 11/21/17 9:00:00 PHYSICAL METALLURGIST, Duration: 30 day, Stop date: 12/20/17 9:00:00 CSTNotes: Do not crush or chew. (Same As: Ecotrin) NIFEdipine 30 mg 30 mg, 1 tab, No Longer [facility] oral tablet, Route: PO, Active 2017 Medical extended release Drug form: [place] ERTAB, Daily, Dosing Weight 69.909, kg, Start date: 11/21/17 9:00:00 PHYSICAL METALLURGIST, Duration: 30 day, Stop date: 12/20/17 12:00:00 CSTNotes: (Same as: Adalat CC, Procardia XL) Give on empty stomach. Take 1 hour before or 2 hours after meal; "Avoid grapefruit and grapefruit juice". Do not crush Lisinopril 40 mg, 2 tab, No Longer [place] Route: PO, Active 2017 Medical Drug form: [place] TAB, Daily, Dosing Weight 69.909, kg, Start date: 11/21/17 9:00:00 PHYSICAL METALLURGIST, Duration: 30 day, Stop date: 12/20/17 9:00:00 CSTNotes: (Same as: Prinivil, Zestril) duloxetine 30 mg, 1 cap, No Longer [place] Route: PO, Active 2017 Medical Drug form: [place] DRC, Daily, Dosing Weight 69.909, kg, Start date: 11/21/17 9:00:00 PHYSICAL METALLURGIST, Duration: 30 day, Stop date: 12/20/17 9:00:00 CSTNotes: (Same as: Cymbalta) (Do Not Crush) clopidogrel 75 mg, 1 tab, No Longer [place] Route: PO, Active 2017 Medical Drug form: [place] TAB, Daily, Dosing Weight 69.909, kg, Start date: 11/21/17 9:00:00 PHYSICAL METALLURGIST, Duration: 30 day, Stop date: 12/20/17 9:00:00 CSTNotes: (Same As: Plavix) pantoprazole 40 mg, 1 tab, No Longer [place] Route: PO, Active 2017 Medical Drug form: [place] ECTAB, Before Breakfast, Dosing Weight 69.909, kg, Start date: 11/21/17 7:30:00 PHYSICAL METALLURGIST, Duration: 30 day, Stop date: 12/20/17 7:30:00 CSTNotes: Tablet should not be chewed or crushed. (Same as: Protonix) Magnesium 2 gm, 50 mL, Inactive [place] Sulfate Route: IVPB, 2017 Medical Drug form: [place] INJ, Q2H, Dosing Weight 69.909, kg, Total dose=4 gm, Start date: 11/21/17 2:00:00 PHYSICAL METALLURGIST, Duration: 2 doses or times, Stop date: 11/21/17 4:00:00 CSTNotes: WASTE: F/P - Sink; E - Municipal Trash Bin heparin sodium, 5,000 unit, 1 No Longer [place] porcine 2500 mL, Route: Active 2018 Medical UNT/ML SUB-Q, Drug Center Injectable form: INJ, Solution Q8H-06, Dosing Weight 69.909, kg, Start date: 11/20/17 22:00:00 PHYSICAL METALLURGIST, Duration: 30 day, Stop date: 12/20/17 14:00:00 CSTNotes: porcine heparin 1.5 ML Insulin 14 unit, Inactive [place] Glargine 300 Route: SUB-Q, 2017 Medical UNT/ML Prefilled Drug form: Center Syringe [Toujeo] SOLN, Bedtime, Dosing Weight 69.909, kg, Start date: 11/20/17 21:00:00 PHYSICAL METALLURGIST, Duration: 30 day, Stop date: 12/19/17 21:00:00 PHYSICAL METALLURGIST insulin glargine 11 unit, 0.11 No Longer [place] mL, Route: Active 2017 Medical SUB-Q, Drug Center form: SOLN, Bedtime, Start date: 11/20/17 21:00:00 PHYSICAL METALLURGIST, Duration: 30 day, Stop date: 12/19/17 21:00:00 CSTNotes: (Same as: Lantus) Do not hold insulin without contacting prescriber WASTE: F/P - Black; E - Municipal Trash Bin "single patient use only" Diuril 250 mg, No Longer [place] Route: IV, Active 2017 Medical Q8Hnow, Center Dosing Weight 69.909, kg, Start date: 11/20/17 18:00:00 PHYSICAL METALLURGIST, Duration: 2 doses or times, Stop date: 11/21/17 6:30:00 CSTNotes: (Same As: Diuril Sodium) carvedilol 12.5 mg, 1 No Longer [place] tab, Route: Active 2017 Medical PO, Drug Center form: TAB, BID, Dosing Weight 69.909, kg, Start date: 11/20/17 17:00:00 PHYSICAL METALLURGIST, Duration: 30 day, Stop date: 12/20/17 9:00:00 CSTNotes: Give with food. (Same As: Coreg) Valtrex 500 mg, 1 No Longer [place] tab, Route: Active 2017 Medical PO, Drug Center form: TAB, Q24H, Start date: 11/20/17 16:00:00 PHYSICAL METALLURGIST, Duration: 30 day, Stop date: 12/19/17 16:00:00 CSTNotes: (Same As: Valtrex) famciclovir 500 500 mg, 1 Inactive [place] MG Oral Tablet tab, Route: 2018 Medical [Famvir] PO, Drug Center form: TAB, Q8H, Dosing Weight 69.909, kg, Start date: 11/20/17 16:00:00 PHYSICAL METALLURGIST, Duration: 30 day, Stop date: 12/20/17 8:00:00 PHYSICAL METALLURGIST Levaquin 500 mg, 100 Inactive [place] mL, Route: 2018 Medical IVPB, Drug Center form: SOLN, ONCE, Dosing Weight 69.909, kg, Start date: 11/20/17 14:43:00 PHYSICAL METALLURGIST, Stop date: 11/20/17 14:43:00 PHYSICAL METALLURGIST, ABX Indication: Other (specify in Comments)Note s: (Same as:Levaquin) Levaquin 500 mg, Inactive [place] Route: IVPB, 2018 Medical Drug form: Center SOLN, [id number], Dosing Weight 69.909, kg, Start date: 11/20/17 14:00:00 PHYSICAL METALLURGIST, Duration: 10 day, Stop date: 11/29/17 14:00:00 PHYSICAL METALLURGIST, ABX Indication: Other (specify in Comments) Diflucan 100 mg, 1 No Longer [facility] tab, Route: Active 2018 Medical PO, Drug Center form: TAB, [id number], Dosing Weight 69.909, kg, Start date: 11/20/17 14:00:00 PHYSICAL METALLURGIST, Duration: 30 day, Stop date: 12/19/17 14:00:00 CSTNotes: (Same as: Diflucan) Furosemide 100 mg, 10 No Longer [place] mL, Rate: 10 Active 2018 Medical mg/hour, Center Dosing Weight 69.909, kg, Route: IV, Total Volume: 100, Start Date: 11/20/17 13:33:00 PHYSICAL METALLURGIST, Duration: 30 day, Stop date: 12/20/17 13:32:00 PHYSICAL METALLURGIST, Replace Every: 24 hr, continuousNot es: (Same as: Lasix) MEDICATION WASTE Product Size: 100 mg Product Wasted: ___ mg Clonidine 0.1 mg, 1 No Longer [place] Hydrochloride tab, Route: Active 2018 Medical 0.1 MG Oral PO, Drug Center Tablet form: TAB, BID, Dosing Weight 69.909, kg, Priority: NOW, Start date: 11/20/17 12:57:00 PHYSICAL METALLURGIST, Duration: 30 day, Stop date: 12/20/17 9:00:00 CSTNotes: (Same As: Catapres) Insulin Lispro 3 unit, 0.03 No Longer [place] mL, Route: Active 2018 Medical SUB-Q, Drug Center form: SOLN, TID-Before Meals, Dosing Weight 69.909, kg, PRN Blood Glucose Results, Start date: 11/20/17 12:55:00 PHYSICAL METALLURGIST, Duration: 30 day, Stop date: 12/20/17 12:54:00 CSTNotes: (Same as: Humalog ) Roll in palms of hands gently; Do not shake `vigorously. "Single Patient Use Only " WASTE: F/P - Black; E - [employer] (IMMI) Trash Bin Stable for 28 days at room temperature. Expires in days from _Date Glucagon 1 mg, Route: No Longer [place] IM, Drug Active 2017 Medical form: Center PDR/INJ, PRN, Dosing Weight 69.909, kg, PRN Blood Glucose Results, Start date: 11/20/17 12:55:00 PHYSICAL METALLURGIST, Duration: 30 day, Stop date: 12/20/17 12:54:00 PHYSICAL METALLURGIST Dextrose 50% 12.5 gm, 25 No Longer [place] Syringe mL, Route: Active 2018 Medical IVP, Drug Center Form: INJ, Dosing Weight 69.909, kg, PRN, PRN Blood Glucose Results, Start date: 11/20/17 12:55:00 PHYSICAL METALLURGIST, Duration: 30 day, Stop date: 12/20/17 12:54:00 PHYSICAL METALLURGIST Tylenol 650 mg, 2 No Longer [place] tab, Route: Active 2018 Medical PO, Drug Center form: TAB, Q6H, Dosing Weight 69.909, kg, PRN Pain 1-3/Temp > 100.4 F, Start date: 11/20/17 12:54:00 PHYSICAL METALLURGIST, Duration: 30 day, Stop date: 12/20/17 12:53:00 CSTNotes: Do not exceed 4 gm/day. (Same as: Tylenol) Saline Flush 10 ml, Route: No Longer [facility] 0.9% IVP, Drug Active 2018 Medical Form: INJ, Center Dosing Weight 69.716, kg, Q12H, Start date: 11/20/17 9:00:00 PHYSICAL METALLURGIST, Duration: 30 day, Stop date: 12/19/17 21:00:00 CSTNotes: Same as: BD Posiflush Sterile Lasix 20 mg, 2 mL, Inactive [facility] Route: IVP, 2018 Medical Drug form: Center INJ, Q8H, Dosing Weight 69.716, kg, Start date: 11/20/17 8:00:00 PHYSICAL METALLURGIST, Duration: 30 day, Stop date: 12/20/17 0:00:00 CSTNotes: (Same as: Lasix) Tylenol 650 mg, 20.3 Inactive [facility] mL, Route: 2018 Medical PO, Drug Center form: LIQ, ONCE, Dosing Weight 69.909, kg, Start date: 11/20/17 5:20:00 PHYSICAL METALLURGIST, Stop date: 11/20/17 5:20:00 CSTNotes: Max acetaminophen =4000mg/day (4 gm/day). (Same as: Tylenol) Sodium Chloride 250 mL, 250 Inactive [facility] 0.9% (Bolus) IV ml/hr, Infuse 2018 Medical Over: 1 hr, Center Route: IV, 250, Drug form: INJ, ONCE, Priority: STAT, Dosing Weight 69.909 kg, Start date: 11/20/17 1:33:00 PHYSICAL METALLURGIST, Stop date: 11/20/17 1:33:00 PHYSICAL METALLURGIST Rasburicase 6 mg, Route: Inactive 11/20[facility] IV, ONCE, 2018 Medical Dosing Weight Center 69.909, kg, Start date: 11/20/17 1:31:00 PHYSICAL METALLURGIST, Stop date: 11/20/17 1:31:00 CSTNotes: Restricted Medication: All Doses of Rasburicase should be interchanged to Rasburicase 6 mg x1 dose. A second dose may be given for patients unresponsive to 1 dose. (Same as:Elitek) MEDICATION WASTE Product Size: 1.5 mg Product Wasted: ___ mg Lasix 20 mg, 2 mL, Inactive [facility] Route: IVP, 2018 Medical Drug form: Center INJ, Q8H, Dosing Weight 69.716, kg, Start date: 11/20/17 0:00:00 PHYSICAL METALLURGIST, Duration: 30 day, Stop date: 12/19/17 16:00:00 CSTNotes: (Same as: Lasix) Saline Flush 10 ml, Route: No Longer [facility] 0.9% IVP, Drug Active 2018 Medical Form: INJ, Center Dosing Weight 69.716, kg, PRN, PRN Line Flush, Start date: 11/19/17 22:17:00 PHYSICAL METALLURGIST, Duration: 30 day, Stop date: 12/19/17 22:16:00 CSTNotes: Same as: BD Posiflush Sterile cefepime 1 gm, Route: Inactive [facility] IVP, ONCE, 2018 Medical Dosing Weight Center 69.716, kg, Priority: STAT, Start date: 11/19/17 19:46:00 PHYSICAL METALLURGIST, Stop date: 11/19/17 19:46:00 PHYSICAL METALLURGIST, ABX Indication: PneumoniaNote s: (Same As: Maxipime) MEDICATION WASTE Product Size: 1000 mg Product Wasted: ___ mg Vancomycin 1,500 mg, Inactive [facility] Route: IVPB, 2018 Medical ONCE, Dosing Center Weight 69.716, kg, Priority: STAT, Start date: 11/19/17 19:45:00 PHYSICAL METALLURGIST, Stop date: 11/19/17 19:45:00 PHYSICAL METALLURGIST, ABX Indication: PneumoniaNote s: TIME CRITICAL MEDICATION (Same As: Vancocin) Infusion rate 2001 mg: infuse over 2.5 hours For adult patients only: Round to nearest 250 mg per Medical Staff approval MEDICATION WASTE Product Size: 1000 mg Product Wasted: ___ mg Sodium Chloride 250 mL, Rate: No Longer [facility] 0.9% (titrate) To prime line Active 2018 Medical 250 mL and flush Center remaining blood products., Dosing Weight 69.716, kg, Route: IV, Total Volume: 250, Priority: Routine, Start Date: 11/19/17 18:49:00 PHYSICAL METALLURGIST, Duration: 30 day, Stop date: 12/19/17 18:48:00 PHYSICAL METALLURGIST, Replace Every: 24 hrNotes: do not load in pyxis pantoprazole 40 40 mg=1 tab, Active [facility] mg oral enteric PO, Before 2018 Medical coated tablet Breakfast, # Center 30 tab, 3 Refill(s) NIFEdipine 30 mg 30 mg=1 tab, Active [facility] oral tablet, PO, Daily, # 2018 Medical extended release 60 tab, 3 Center Refill(s) lisinopril 20 mg 40 mg=2 tab, Active [facility] oral tablet PO, Daily, # 2018 Medical 60 tab, 3 Center Refill(s) DULoxetine 30 mg 30 mg=1 cap, Active [facility] oral delayed PO, Daily, # 2018 Medical release capsule 30 cap, 3 Center Refill(s) clopidogrel 75 75 mg=1 tab, Active [facility] mg oral tablet PO, Daily, # 2018 Medical 30 tab, 3 Center Refill(s) Clonidine 0.1 mg, PO, Active [facility] Hydrochloride BID, # 60 2018 Medical 0.1 MG Oral tab, 3 Center Tablet Refill(s) carvedilol 12.5 12.5 mg=1 Active [facility] mg oral tablet tab, PO, BID, 2018 Medical # 60 tab, 3 Center Refill(s) aspirin 81 mg 81 mg=1 tab, Active [facility] tablet, enteric PO, Daily, # 2018 Medical coated 30 tab, 3 Center Refill(s) Lasix 40 mg, 4 mL, Inactive [facility] Route: IVP, 2017 Medical Drug form: [place] INJ, ONCE, Dosing Weight 72.455, kg, Start date: 11/01/17 7:11:00 PHYSICAL METALLURGIST, Stop date: 11/01/17 7:11:00 CSTNotes: (Same as: Lasix) MEDICATION WASTE Product Size: 40 mg Product Wasted: ___ mg Sodium Chloride 250 mL, Rate: No Longer [place] 0.9% (titrate) banquet server on call for Active 2017 Medical 250 mL use with [place] blood product administratio n, Dosing Weight 72.455, kg, Route: IV, Total Volume: 250, Start Date: 11/01/17 7:10:00 PHYSICAL METALLURGIST, Duration: 30 day, Stop date: 12/01/17 7:09:00 PHYSICAL METALLURGIST, Replace Every: 24 hr Coreg 12.5 mg, 1 No Longer [place] tab, Route: Active 2018 Medical PO, Drug Center form: TAB, ONCE, Dosing Weight 72.455, kg, Priority: NOW, Start date: 10/31/17 23:45:00 PHYSICAL METALLURGIST, Stop date: 10/31/17 23:45:00 CSTNotes: Give with food. (Same As: Coreg) Clonidine 0.1 mg, 1 No Longer [place] Hydrochloride tab, Route: Active 2018 Medical 0.1 MG Oral PO, Drug Center Tablet form: TAB, ONCE, Dosing Weight 72.455, kg, Priority: NOW, Start date: 10/31/17 23:42:00 PHYSICAL METALLURGIST, Stop date: 10/31/17 23:42:00 CSTNotes: (Same As: Catapres) tramadol 50 mg, 1 tab, No Longer [place] hydrochloride 50 Route: PO, Active 2018 Medical MG Oral Tablet Drug form: Center TAB, Q4H, Dosing Weight 72.455, kg, PRN Pain Score 1-3, Start date: 10/31/17 22:00:00 PHYSICAL METALLURGIST, Duration: 30 day, Stop date: 11/30/17 21:59:00 CSTNotes: Not to exceed 400mg/day. (Same As: Ultram) chlorhexidine 15 mL, Route: No Longer [place] gluconate 1.2 Swab Mouth, Active 2018 Medical MG/ML Mouthwash Q12H, Drug Center form: LIQ, Start date: 10/31/17 21:00:00 PHYSICAL METALLURGIST, Duration: 30 day, Stop date: 11/30/17 9:00:00 CSTNotes: (Same As: Peridex) Dextrose 50% 12.5 gm, 25 No Longer [place] Syringe mL, Route: Active 2018 Medical IVP, Drug Center Form: INJ, Dosing Weight 72.455, kg, PRN, PRN Blood Glucose Results, Start date: 10/31/17 19:34:00 PHYSICAL METALLURGIST, Duration: 30 day, Stop date: 11/30/17 19:33:00 PHYSICAL METALLURGIST Insulin regular 99 mL, Rate: No Longer [place] 100 unit + Start Insulin Active 2018 Medical Drip Per ICU Center Protocol, Dosing Weight 72.455, kg, Route: IVPB, Total Volume: 100, Start Date: 10/31/17 19:34:00 PHYSICAL METALLURGIST, Duration: 30 day, Stop date: 11/30/17 19:33:00 PHYSICAL METALLURGIST, Replace Every: 24 hrNotes: Final Concentration 1unit/1ml WASTE: F/P - Black; E - Municipal Trash Bin Fentanyl 25 microgram, Inactive [place] 0.5 mL, 2018 Medical Route: IVP, Center Drug form: INJ, ONCE, Dosing Weight 72.455, kg, Start date: 10/31/17 18:55:00 PHYSICAL METALLURGIST, Stop date: 10/31/17 18:55:00 CSTNotes: (Same as: Sublimaze) Preservative free. ocular lubricant 1 appl, No Longer [place] Route: BOTH Active 2017 Medical EYES, Q6H, [place] Drug form: OINT, Start date: 10/31/17 18:00:00 PHYSICAL METALLURGIST, Duration: 30 day, Stop date: 11/30/17 12:00:00 CSTNotes: (Same as: Lacri-Lube, Duratears Naturale, Artificial Tears, and Tears Again ) chlorhexidine 15 mL, Route: No Longer [place] gluconate 1.2 Swab Mouth, Active 2017 Medical MG/ML Mouthwash PRN, Drug Center form: LIQ, PRN Other -See Comment, Start date: 10/31/17 17:28:00 PHYSICAL METALLURGIST, Duration: 30 day, Stop date: 11/30/17 17:27:00 CSTNotes: (Same As: Peridex) rocuronium Route: IV, Inactive [place] (ANES) Drug form: 2018 Medical INJ, ONCE, Center Stop date: 10/31/17 16:57:00 PHYSICAL METALLURGIST Sodium Chloride 750 mL, Rate: No Longer [facility] 0.9% IV 750 mL 75 ml/hr, Active 2017 Medical Infuse over: Center 10 hr, Route: IV, Dosing Weight 72.455 kg, Total Volume: 750, Start date: 10/31/17 16:56:00 PHYSICAL METALLURGIST, Duration: 10 hr, Stop date: 11/01/17 2:55:00 PHYSICAL METALLURGIST, 1.81, m2 protamine (ANES) Route: IV, Inactive [facility] Drug form: 2018 Medical INJ, ONCE, Center Stop date: 10/31/17 16:42:00 PHYSICAL METALLURGIST propofol (ANES) Route: IV, Inactive [facility] Drug form: 2018 Medical INJ, ONCE, Center Stop date: 10/31/17 16:22:00 PHYSICAL METALLURGIST norepinephrine Route: IV, Inactive [facility] (ANES) Drug form: 2018 Medical INJ, ONCE, [place] Stop date: 10/31/17 16:22:00 PHYSICAL METALLURGIST ondansetron Route: IV, Inactive [facility] ([facility]) Drug form: 2018 Medical INJ, ONCE, Center Stop date: 10/31/17 16:08:00 PHYSICAL METALLURGIST fentaNYL ([facility]) Route: IV, Inactive [facility] Drug form: 2018 Medical INJ, ONCE, [place] Stop date: 10/31/17 15:37:00 PHYSICAL METALLURGIST heparin ([facility]) Route: IV, Inactive [facility] Drug form: 2018 Medical INJ, ONCE, [place] Stop date: 10/31/17 15:37:00 PHYSICAL METALLURGIST Ondansetron 4 mg, 2 mL, No Longer [facility] Route: IVP, Active 2017 Medical Drug form: [place] INJ, ONCE, Dosing Weight 72.455, kg, PRN Nausea & Vomiting, Start date: 10/31/17 15:27:00 CSTNotes: (Same as: Zofran) MEDICATION WASTE Product Size: 4 mg Product Wasted: ___ mg Fentanyl 25 microgram, No Longer [facility] 0.5 mL, Active 2017 Medical [facility]: [facility] form: INJ, Q5Min, Dosing Weight 72.455, kg, PRN Pain Score 4-6, Priority: Routine, Start date: 10/31/17 15:27:00 PHYSICAL METALLURGIST, Duration: 4 doses or times, Stop date: 11/01/17 0:00:00 CSTNotes: (Same as: Sublimaze) Preservative free. Naloxone 0.4 mg, 1 mL, No Longer [facility] Route: IVP, Active 2017 Medical Drug form: [place] INJ, Q2MIN, Dosing Weight 72.455, kg, PRN Narcotic Reversal, Start date: 10/31/17 15:27:00 PHYSICAL METALLURGIST, Duration: 8 doses or times, Stop date: 11/01/17 0:00:00 CSTNotes: Same as Narcan Flumazenil 0.2 mg, 2 mL, No Longer [facility] Route: IVP, Active 2017 Medical Drug form: [place] INJ, PRN, Dosing Weight 72.455, kg, PRN Benzodiazepin e Reversal, Initial dose, Start date: 10/31/17 15:27:00 PHYSICAL METALLURGIST, Stop date: 11/01/17 0:00:00 CSTNotes: (Same as: Romazicon) midazolam (ANES) Route: IV, Inactive [facility] Drug form: 2018 Medical SOLN, ONCE, Center Stop date: 10/31/17 15:02:00 PHYSICAL METALLURGIST ceFAZolin (ANES) Route: IV, Inactive [facility] Drug form: 2018 Medical INJ, ONCE, Center Stop date: 10/31/17 14:37:00 PHYSICAL METALLURGIST Sodium Chloride Route: IV, Inactive [facility] 0.9% IV (ANES) Total Volume: 2018 Medical 500 mL 500, Start Center date: 10/31/17 13:50:00 PHYSICAL METALLURGIST, Stop date: 10/31/17 14:50:00 PHYSICAL METALLURGIST dexmedetomidine Route: IV, Inactive [facility] (ANES) 400 Drug form: 2017 Medical microgram INJ, Start Center date: 10/31/17 13:50:00 PHYSICAL METALLURGIST, Stop date: 10/31/17 14:50:00 PHYSICAL METALLURGIST Pravastatin 20 mg, 1 tab, No Longer [facility] Route: PO, Active 2017 Medical Drug form: [place] TAB, Bedtime, Dosing Weight 72.455, kg, Start date: 10/30/17 21:00:00 PHYSICAL METALLURGIST, Duration: 30 day, Stop date: 11/28/17 21:00:00 CSTNotes: (Same as: Pravachol) Pneumovax 23 0.5 mL, Inactive [facility] Route: IM, 2017 Medical Drug Form: [place] INJ, Daily, Start date: 10/30/17 12:00:00 PHYSICAL METALLURGIST, Duration: 1 doses or times, Stop date: 10/30/17 12:00:00 CSTNotes: (Same as: Pneumovax 23) Refrigerate Hydralazine 10 mg, 0.5 No Longer [place] mL, Route: Active 2018 Medical IV, Drug [place] form: INJ, Q6H, Dosing Weight 72.455, kg, PRN Other -See Comment, Start date: 10/30/17 10:28:00 PHYSICAL METALLURGIST, Duration: 30 day, Stop date: 11/29/17 10:27:00 PHYSICAL METALLURGIST, SBP>160Notes: (Same as: Apresoline) Push over 5 minutes pneumococcal 0.5 mL, Inactive [place] capsular Route: IM, 2018 Medical polysaccharide Drug Form: [place] type 1 vaccine / INJ, Daily, pneumococcal Start date: capsular 10/30/17 polysaccharide 9:00:00 PHYSICAL METALLURGIST, type 10A vaccine Duration: 1 / pneumococcal doses or capsular times, Stop polysaccharide date: type 11A vaccine 10/30/17 / pneumococcal 9:00:00 capsular CSTNotes: polysaccharide (Same as: type 12F vaccine Pneumovax 23) / pneumococcal Refrigerate capsular polysacchar influenza virus 0.5 mL, Inactive [place] vaccine, Route: IM, 2018 Medical inactivated Drug Form: [place] SUSP, Daily, Start date: 10/30/17 9:00:00 PHYSICAL METALLURGIST, Duration: 1 doses or times, Stop date: 10/30/17 9:00:00 CSTNotes: (Same as: Fluzone Quadrivalent, Fluarix Quadrivalent) For 3 years of age and older (0.5 mL IM) Shake well before use Coreg 12.5 mg, 1 No Longer [place] tab, Route: Active 2018 Medical PO, Drug Center form: TAB, BID, Dosing Weight 72.455, kg, Start date: 10/30/17 9:00:00 PHYSICAL METALLURGIST, Duration: 30 day, Stop date: 11/28/17 17:00:00 CSTNotes: Give with food. (Same As: Coreg) aspirin 81 mg 81 mg, 1 tab, No Longer [place] tablet, enteric Route: PO, Active 2018 Medical coated Drug form: [place] ECTAB, Daily, Dosing Weight 72.455, kg, Start date: 10/30/17 9:00:00 PHYSICAL METALLURGIST, Duration: 30 day, Stop date: 11/28/17 9:00:00 CSTNotes: Do not crush or chew. (Same As: Ecotrin) Amlodipine 10 mg, 1 tab, Inactive [place] Route: PO, 2017 Medical Drug form: [place] TAB, Daily, Dosing Weight 72.455, kg, Start date: 10/30/17 9:00:00 PHYSICAL METALLURGIST, Duration: 30 day, Stop date: 11/28/17 9:00:00 CSTNotes: (Same as: Norvasc) NIFEdipine 30 mg 30 mg, 1 tab, No Longer [place] oral tablet, Route: PO, Active 2018 Medical extended release Drug form: [place] ERTAB, Daily, Dosing Weight 72.455, kg, Start date: 10/30/17 9:00:00 PHYSICAL METALLURGIST, Duration: 30 day, Stop date: 11/28/17 9:00:00 CSTNotes: (Same as: Adalat CC, Procardia XL) Give on empty stomach. Take 1 hour before or 2 hours after meal; "Avoid grapefruit and grapefruit juice". Do not crush Lisinopril 40 mg, 2 tab, No Longer [facility] Route: PO, Active 2017 Medical Drug form: [place] TAB, Daily, Dosing Weight 72.455, kg, Start date: 10/30/17 9:00:00 PHYSICAL METALLURGIST, Duration: 30 day, Stop date: 11/28/17 9:00:00 CSTNotes: (Same as: Prinivil, Zestril) duloxetine 30 mg, 1 cap, No Longer [facility] Route: PO, Active 2017 Medical Drug form: [place] DRC, Daily, Dosing Weight 72.455, kg, Start date: 10/30/17 9:00:00 PHYSICAL METALLURGIST, Duration: 30 day, Stop date: 11/28/17 9:00:00 CSTNotes: (Same as: Cymbalta) (Do Not Crush) clopidogrel 75 mg, 1 tab, No Longer [facility] Route: PO, Active 2017 Medical Drug form: [place] TAB, Daily, Dosing Weight 72.455, kg, Start date: 10/30/17 9:00:00 PHYSICAL METALLURGIST, Duration: 30 day, Stop date: 11/28/17 9:00:00 CSTNotes: (Same As: Plavix) 12 HR Clonidine 0.1 mg, 1 No Longer [facility] Hydrochloride tab, Route: Active 2018 Medical 0.1 MG Extended PO, Drug [place] Release Tablet form: TAB, BID, Dosing Weight 72.455, kg, Start date: 10/30/17 9:00:00 PHYSICAL METALLURGIST, Duration: 30 day, Stop date: 11/28/17 17:00:00 CSTNotes: (Same As: Catapres) heparin 5,000 unit, 1 No Longer [place] mL, Route: Active 2018 Medical SUB-Q, Drug [place] form: INJ, Q8H, Dosing Weight 72.455, kg, Start date: 10/30/17 8:00:00 PHYSICAL METALLURGIST, Duration: 30 day, Stop date: 11/29/17 0:00:00 CSTNotes: porcine heparin Protonix 40 mg, 1 tab, No Longer [place] Route: PO, Active 2017 Medical Drug form: [place] ECTAB, Before Breakfast, Dosing Weight 72.455, kg, Start date: 10/30/17 7:30:00 PHYSICAL METALLURGIST, Duration: 30 day, Stop date: 11/28/17 7:30:00 CSTNotes: Tablet should not be chewed or crushed. (Same as: Protonix) Benzocaine 15 MG 1 lozenge, No Longer [place] / Menthol 3.6 MG Route: MUCOUS Active 2017 Medical Lozenge [Cepacol MEM, Drug [place] Sore Throat Pain Form: SHWETA, Relief 15/3.6] Dosing Weight 72.455, kg, Q2H, PRN Sore Throat, Start date: 10/30/17 1:15:00 PHYSICAL METALLURGIST, Duration: 30 day, Stop date: 11/29/17 1:14:00 CSTNotes: Cepacol lozenges Dispense 1 box=16 lozenges (Same As: Cepacol Lozenges) Lasix 20 mg, 2 mL, No Longer [facility] Route: IV, Active 2017 Medical Drug form: Center INJ, Q12H, Dosing Weight 72.455, kg, Start date: 10/29/17 21:00:00 PHYSICAL METALLURGIST, Duration: 30 day, Stop date: 11/28/17 9:00:00 CSTNotes: (Same as: Lasix) Melatonin 3 MG 3 mg, 1 tab, No Longer [place] Extended Release Route: PO, Active 2018 Medical Tablet Drug Form: [place] TAB, Dosing Weight 72.455, kg, Bedtime, Start date: 10/29/17 21:00:00 PHYSICAL METALLURGIST, Duration: 30 day, Stop date: 11/27/17 21:00:00 CSTNotes: (Same as: Melatonin) Glucagon 1 mg, Route: No Longer [place] IM, Drug Active 2017 Medical form: [place] PDR/INJ, PRN, Dosing Weight 72.455, kg, PRN Blood Glucose Results, Start date: 10/29/17 20:50:00 PHYSICAL METALLURGIST, Duration: 30 day, Stop date: 11/28/17 20:49:00 PHYSICAL METALLURGIST Dextrose 50% 25 gm, 50 mL, No Longer [place] Syringe Route: IVP, Active 2017 Medical Drug Form: [place] INJ, Dosing Weight 72.455, kg, PRN, PRN Blood Glucose Results, Start date: 10/29/17 20:50:00 PHYSICAL METALLURGIST, Duration: 30 day, Stop date: 11/28/17 20:49:00 PHYSICAL METALLURGIST Insulin Lispro 8 unit, 0.08 No Longer [place] mL, Route: Active 2017 [facility] SUB-Q, Drug Center form: SOLN, TID-Before Meals, Dosing Weight 72.455, kg, PRN Blood Glucose Results, Start date: 10/29/17 20:50:00 PHYSICAL METALLURGIST, Duration: 30 day, Stop date: 11/28/17 20:49:00 CSTNotes: (Same as: Humalog ) Roll in palms of hands gently; Do not shake `vigorously. "Single Patient Use Only " WASTE: F/P - Black; E - Municipal Trash Bin Stable for 28 days at room temperature. Expires in days from _Date Magnesium Oxide 800 mg, 2 No Longer [place] tab, Route: Active 2018 Medical PO, Drug Center form: TAB, PRN, Dosing Weight 72.455, kg, PRN Abnormal Lab Result, For NON-ICU Patients Only., Start date: 10/29/17 20:50:00 PHYSICAL METALLURGIST, Duration: 30 day, Stop date: 11/28/17 20:49:00 CSTNotes: (Same as: Mag-Ox 400) Magnesium oxide [id number] elemental magnesium Dose=____mg magnesium oxide (___mg elemental magnesium) Calcium 2 gm, 20 mL, No Longer [place] Gluconate Route: IVPB, Active 2018 Medical PRN, Dosing Center Weight 72.455, kg, PRN Abnormal Lab Result, For NON-ICU Patients Only., Start date: 10/29/17 20:50:00 PHYSICAL METALLURGIST, Duration: 30 day, Stop date: 11/28/17 20:49:00 CSTNotes: WASTE: F/P - Sink; E - Municipal Trash Bin sodium phosphate 15 mmol, 5 No Longer [place] mL, Route: Active 2018 Medical IVPB, PRN, Center Dosing Weight 72.455, kg, PRN Abnormal Lab Result, For NON-ICU Patients Only., Start date: 10/29/17 20:50:00 PHYSICAL METALLURGIST, Duration: 30 day, Stop date: 11/28/17 20:49:00 PHYSICAL METALLURGIST potassium 30 mmol, 10 No Longer [place] phosphate mL, Route: Active 2018 Medical IVPB, PRN, Center Dosing Weight 72.455, kg, PRN Abnormal Lab Result, For NON-ICU Patients Only., Start date: 10/29/17 20:50:00 PHYSICAL METALLURGIST, Duration: 30 day, Stop date: 11/28/17 20:49:00 CSTNotes: (Same as: K Phosphate.) 1 mMol phoshate has 1.47 mEq potassium Infuse over 4 hours Magnesium 2 gm, 50 mL, No Longer [place] Sulfate Route: IVPB, Active 2018 Medical Drug form: Center INJ, PRN, Dosing Weight 72.455, kg, PRN Abnormal Lab Result, For NON-ICU Patients Only., Start date: 10/29/17 20:50:00 PHYSICAL METALLURGIST, Duration: 30 day, Stop date: 11/28/17 20:49:00 CSTNotes: WASTE: F/P - Sink; E - Municipal Trash Bin Potassium 20 mEq, 1 No Longer [place] Chloride tab, Route: Active 2018 Medical PO, Drug Center form: ERTAB, PRN, Dosing Weight 72.455, kg, PRN Abnormal Lab Result, For NON-ICU Patients Only, Start date: 10/29/17 20:50:00 PHYSICAL METALLURGIST, Duration: 30 day, Stop date: 11/28/17 20:49:00 CSTNotes: (Same as: K-Dur 20) "Do Not Crush" With food and full glass of water potassium 2 pkt, Route: No Longer [facility] phosphate-sodium PO, Drug Active 2017 Medical phosphate 250 Form: [place] mg-280 mg-160 mg PDR/REC, oral powder for Dosing Weight reconstitution 72.455, kg, PRN, PRN Abnormal Lab Result, For NON-ICU Patients Only, Start date: 10/29/17 20:50:00 PHYSICAL METALLURGIST, Duration: 30 day, Stop date: 11/28/17 20:49:00 CSTNotes: (Same as: Phos-NaK) Each 1.5 gm pkt has 250mg phosphorous. Mix w/2.5oz water and stir. Magnesium 2 gm, 50 mL, Inactive [facility] Sulfate Route: IVPB, 2017 Medical Drug form: [place] INJ, ONCE, Dosing Weight 72.455, kg, Start date: 10/29/17 19:55:00 PHYSICAL METALLURGIST, Stop date: 10/29/17 19:55:00 CSTNotes: WASTE: F/P - Sink; E - Municipal Trash Bin insulin glargine SUB-Q, Daily, No Longer [facility] (concentrated) 0 Refill(s) Active 2018 Medical 300 units/mL [place] subcutaneous solution DULoxetine 30 mg 30 mg=1 cap, No Longer [place] oral delayed PO, Daily, # Active 2018 Medical release capsule 90 cap, 0 [place] Refill(s) NIFEdipine 30 mg 30 mg=1 tab, No Longer [place] oral tablet, PO, Daily, # Active 2018 Medical extended release 90 tab, 1 Center Refill(s) Amlodipine 10 mg, 1 tab, No Longer [facility] Route: PO, Active 2015 Medical Drug form: [place] TAB, Daily, Dosing Weight 78.636, kg, Start date: 05/30/16 9:00:00 CDT, Duration: 30 day, Stop date: 06/28/16 9:00:00 CDTNotes: (Same as: Norvasc) Protonix 40 mg, 1 tab, No Longer [facility] Route: PO, Active 2015 Medical Drug form: [place] ECTAB, Daily, Dosing Weight 78.636, kg, Start date: 05/30/16 9:00:00 CDT, Duration: 30 day, Stop date: 06/28/16 9:00:00 CDTNotes: Tablet should not be chewed or crushed. (Same as: Protonix) Lisinopril 40 mg, 2 tab, No Longer [facility] Route: PO, Active 2015 Medical Drug form: [place] TAB, Daily, Dosing Weight 78.636, kg, Start date: 05/30/16 9:00:00 CDT, Duration: 30 day, Stop date: 06/28/16 9:00:00 CDTNotes: (Same as: Prinivil, Zestril) clopidogrel 75 mg, 1 tab, No Longer [facility] Route: PO, Active 2015 Medical Drug form: [place] TAB, Daily, Dosing Weight 78.636, kg, Start date: 05/30/16 9:00:00 CDT, Duration: 30 day, Stop date: 06/28/16 9:00:00 CDTNotes: (Same As: Plavix) Aspirin 81 MG 81 mg, 1 tab, No Longer [facility] Enteric Coated Route: PO, Active 2015 Medical Tablet Drug form: [place] ECTAB, Daily, Dosing Weight 78.636, kg, Start date: 05/30/16 9:00:00 CDT, Duration: 30 day, Stop date: 06/28/16 9:00:00 CDTNotes: Do not crush or chew. (Same As: Ecotrin) NovoLOG FlexPen Route: SUB-Q, No Longer [facility] Drug form: Active 2015 Medical INJ, Before [place] Breakfast, Dosing Weight 78.636, kg, Start date: 05/30/16 7:30:00 CDT, Duration: 30 day, Stop date: 06/28/16 7:30:00 CDT Pravastatin 20 mg, 1 tab, Inactive [place] Route: PO, 2015 Medical Drug form: [place] TAB, Bedtime, Dosing Weight 78.636, kg, Start date: 05/29/16 21:00:00 CDT, Duration: 30 day, Stop date: 06/27/16 21:00:00 CDTNotes: (Same as: Pravachol) glimepiride 4 mg, 1 tab, Inactive [facility] Route: PO, 2015 Medical Drug form: Center TAB, BID, Dosing Weight 78.636, kg, Start date: 05/29/16 17:00:00 CDT, Duration: 30 day, Stop date: 06/28/16 9:00:00 CDTNotes: (Same as: Amaryl) cyclobenzaprine 10 mg, 1 tab, Inactive [facility] Route: PO, 2015 Medical Drug form: Center TAB, QPM, Dosing Weight 78.636, kg, Start date: 05/29/16 17:00:00 CDT, Duration: 30 day, Stop date: 06/27/16 17:00:00 CDTNotes: (Same As: Flexeril) 12 HR Clonidine 0.1 mg, 1 Inactive [facility] Hydrochloride tab, Route: 2015 Medical 0.1 MG Extended PO, Drug Center Release Tablet form: TAB, BID, Dosing Weight 78.636, kg, Start date: 05/29/16 17:00:00 CDT, Duration: 30 day, Stop date: 06/28/16 9:00:00 CDTNotes: (Same As: Catapres) Coreg 12.5 mg, 1 Inactive [facility] tab, Route: 2016 Medical PO, Drug Center form: TAB, BID, Dosing Weight 78.636, kg, Start date: 05/29/16 17:00:00 CDT, Duration: 30 day, Stop date: 06/28/16 9:00:00 CDTNotes: Give with food. (Same As: Coreg) amLODIPine 10 mg 10 mg=1 tab, Active [facility] oral tablet PO, Daily, # 2016 Medical 90 tab, 3 Center Refill(s) amLODIPine 10 mg 10 mg=1 tab, Inactive [facility] oral tablet PO, Daily, # 2016 Medical 90 tab, 3 Center Refill(s) amLODIPine 10 mg 5 mg, PO, Inactive [facility] oral tablet Daily, # 90 2016 Medical tab, 0 Center Refill(s) Nitroglycerin 0.4 mg, 1 Inactive [facility] [place] tab, Route: 2016 Medical , Drug Center form: TAB, Q5Min, Dosing Weight 78.636, kg, PRN Chest Pain, Start date: 05/29/16 9:02:00 CDT, Duration: 3 doses or times, Stop date: 05/29/16 17:00:00 CDTNotes: (Same as:Nitroquick , Nitrostat) "Do Not Crush" Sublingual tablet Sodium Chloride 750 mL, Rate: Inactive [facility] 0.154 MEQ/ML 75 ml/hr, 2016 Medical Injectable Infuse over: Center Solution 10 hr, Route: IV, Dosing Weight 78.636 kg, Total Volume: 750, Start date: 05/29/16 9:02:00 CDT, Duration: 10 hr, Stop date: 05/29/16 19:01:00 CDT 24 HR Metformin 500 mg=1 tab, Active [facility] hydrochloride PO, 2016 Medical 500 MG Extended BID-Meals, # Center Release Tablet 60 tab, 1 Refill(s) 12 HR Clonidine 0.1 mg=1 tab, Active [facility] Hydrochloride PO, BID, # 60 2016 Medical 0.1 MG Extended tab, 0 Center Release Tablet Refill(s) Amlodipine 5 mg, PO, Inactive 05/29[facility] Daily, 0 2016 Medical Refill(s) Center meloxicam 15 mg 15 mg=1 tab, Active [facility] oral tablet PO, Daily, # 2016 Medical 30 tab, 0 Center Refill(s) sodium chloride 1,000 mL, Inactive [facility] 0.9% 1000 ml INJ Rate: 100 2015 Medical 1,000 mL ml/hr, Infuse Center over: 10 hr, Route: IVPB, Dosing Weight 78.636 kg, Total Volume: 1,000, Start date: 05/29/16 5:54:00 CDT, Duration: 30 day, Stop date: 06/28/16 5:53:00 CDT Keflex 500 mg 500 mg, 1 PO Active [facility] oral capsule cap, PO, Q8H, 2013 Medical 9 cap, Center Substitution Allowed Wis[place]k 5/325 oral 1 tab, PO, PO Active [facility] 01/20[facility] tablet Q4H, PRN, 20 2012 Medical tab, Pain, Center Substitution Allowed, Maintenance, TAB magnesium 4 gm, 100 mL, IVPB Active [facility] sulfate Route: IVPB, 2012 Medical Drug form: [place] INJ, ONCE, Dosing Weight 81.818, kg, Total dose=4 gm, Start date: 01/20/13 9:40:00, Stop date: 01/20/13 9:40:00 magnesium 2 gm, 50 mL, IVPB No Longer [place] [facility] sulfate Route: IVPB, Active 2012 Medical Drug form: [place] INJ, ONCE, Dosing Weight 81.818, kg, Total dose=2 gm, Start date: 01/20/13 9:34:00, Duration: 1 doses or times, Stop date: 01/20/13 9:34:00 clopidogrel 75 mg, 1 tab, PO No Longer [facility]aut[facility] Route: PO, Active 2012 Medical Drug form: [place] TAB, Daily, Dosing Weight 81.818, kg, Start date: 01/20/13 9:00:00, Duration: 30 day, Stop date: 02/18/13 9:00:00 citalopram 10 mg, 1 tab, PO No Longer [facility] Route: PO, Active 2012 Medical Drug form: [place] TAB, Daily, Dosing Weight 81.818, kg, Start date: 01/20/13 9:00:00, Duration: 30 day, Stop date: 02/18/13 9:00:00 aspirin 81 mg 81 mg, 1 tab, PO No Longer Gautam [facility] tablet, enteric Route: PO, Active 2012 Medical coated Drug form: [place] ECTAB, Daily, Dosing Weight 81.818, kg, Start date: 01/20/13 9:00:00, Duration: 30 day, Stop date: 02/18/13 9:00:00 pravastatin 20 mg, 1 tab, PO No Longer [facility]am [facility] Route: PO, Active 2012 Medical Drug form: [place] TAB, Daily, Dosing Weight 81.818, kg, Start date: 01/20/13 9:00:00, Duration: 30 day, Stop date: 02/18/13 9:00:00 Protonix 40 mg, 1 tab, PO No Longer Gautam [facility] Route: PO, Active 2012 Medical Drug form: Center ECTAB, Daily, Dosing Weight 81.818, kg, Start date: 01/20/13 9:00:00, Duration: 30 day, Stop date: 02/18/13 9:00:00 lisinopril 40 mg, 2 tab, PO No Longer Gautam [facility] Route: PO, Active 2012 Medical Drug form: Center TAB, Daily, Dosing Weight 81.818, kg, Start date: 01/20/13 9:00:00, Duration: 30 day, Stop date: 02/18/13 9:00:00 Saline Flush 5 ml, Route: IVP No Longer Gautam [facility] 0.9% IVP, Drug Active 2012 Medical Form: INJ, [place] Dosing Weight 81.818, kg, Q12H, Start date: 01/19/13 21:00:00, Duration: 30 day, Stop date: 02/18/13 9:00:00 Wishek 5/325 oral 1 tab, Route: PO No Longer Gautam [facility] tablet PO, Drug Active 2012 Medical Form: TAB, Center Dosing Weight 81.818, kg, Q4H, PRN Pain, Start date: 01/19/13 18:24:00, Duration: 30 day, Stop date: 02/18/13 18:23:00 Tylenol 650 mg, 2 PO No Longer Gautam [facility] tab, Route: Active 2012 Medical PO, Drug Center form: TAB, Q4H, Dosing Weight 81.818, kg, PRN Pain, Start date: 01/19/13 18:16:00, Duration: 30 day, Stop date: 02/18/13 18:15:00 cyclobenzaprine 5 mg, 0.5 PO No Longer Gautam [facility] tab, Route: Active 2012 Medical PO, Drug Center form: TAB, QPM, Dosing Weight 81.818, kg, Start date: 01/19/13 17:00:00, Duration: 30 day, Stop date: 02/17/13 17:00:00 Coreg 12.5 mg, 1 PO No Longer Gautam [facility] tab, Route: Active 2012 Medical PO, Drug Center form: TAB, BID, Dosing Weight 81.818, kg, Start date: 01/19/13 17:00:00, Duration: 30 day, Stop date: 02/18/13 9:00:00 cefazolin (SCIP) 1 gm, Route: IVPB No Longer Gautam [facility] IVPB, Drug Active 2012 Medical form: [place] PDR/INJ, Q8H, Dosing Weight 81.818, kg, Start date: 01/19/13 17:00:00, Duration: 3 doses or times, Stop date: 01/20/13 9:00:00 glimepiride 4 mg, 1 tab, PO No Longer Gautam [facility] Route: PO, Active 2012 Medical Drug form: [place] TAB, BID, Dosing Weight 81.818, kg, Start [...] gm, 50 mL, IVPB No Longer Gautam [place] sulfate 2 gm in Route: IVPB, Active 2012 Medical Water 50 ml Drug form: [place] INJ, ONCE, Dosing Weight 81.818, kg, Priority: STAT, Start date: 01/19/13 11:26:00, Duration: 2 hr, Stop date: 01/19/13 11:26:00 Saline Flush 5 ml, Route: IVP No Longer [facility] 0.9% IVP, Drug Active 2012 Medical Form: INJ, [place] Dosing Weight 81.818, kg, PRN, PRN Line Flush, Start date: 01/19/13 11:05:00, Duration: 30 day, Stop date: 02/18/13 11:04:00 ondansetron 4 mg, 2 mL, IVP No Longer Gautam [facility] Route: IVP, Active 2012 Medical Drug form: [place] INJ, Q8H, Dosing Weight 81.818, kg, PRN Nausea & Vomiting, Start date: 01/19/13 11:05:00, Duration: 30 day, Stop date: 02/18/13 11:04:00 acetaminophen 325 mg, 1 PO No Longer Gautam [place] tab, Route: Active 2012 Medical PO, Drug [...] gm, 100 mL, IV No Longer [place] [facility] sulfate Route: IV, Active 2012 Medical Drug form: Center INJ, ONCE, Dosing Weight 81.818, kg, stat, Start date: 01/19/13 7:29:00, Stop date: 01/19/13 7:29:00 lisinopril 40 mg 40 mg, 1 tab, PO Active [facility] oral tablet PO, Daily, 2012 Medical tab, Center Substitution Allowed, TAB NovoLog FlexPen Per Sliding SUB-Q Active 01/19[facility] Scale, SUB-Q, 2012 Medical Before [place] Breakfast, Substitution Allowed, INJ cyclobenzaprine 5 mg, 1 tab, PO Active [facility] 01/19[facility] [place] 5 mg oral tablet PO, QPM, 2012 Medical Substitution Center Allowed, TAB aspirin 81 mg 81 mg, 1 tab, PO Active [facility] 01/19[facility] [place] tablet, enteric PO, Daily, 0 2012 Medical coated tab, Center Substitution Allowed, ECTAB gabapentin 100 100 mg, 1 PO Active [facility] 01/19[facility] mg oral capsule cap, PO, Q8H, 2012 Medical Substitution Center Allowed, CAP glimepiride 4 mg 4 mg, 1 tab, PO Active [facility]am 01/19[facility] [place] oral tablet PO, BID, 30 2012 Medical tab, Center Substitution Allowed, TAB warfarin 5 mg 5 mg, 1 tab, PO No Longer [facility] oral tablet PO, Daily, 30 Active 2012 Medical tab, Center Substitution Allowed, TAB pravastatin 20 20 mg, 1 tab, PO Active [facility] mg oral tablet PO, Daily, 30 2012 Medical tab, Center Substitution Allowed, TAB clopidogrel 75 75 mg, 1 tab, PO Active [facility] mg oral tablet PO, Daily, 30 2012 Medical tab, Center Substitution Allowed, TAB citalopram 10 mg 10 mg, 1 tab, PO Active [facility] oral tablet PO, Daily, 30 2012 Medical tab, Center Substitution Allowed, TAB Protonix 40 mg 40 mg, 1 tab, PO Active [facility] oral enteric PO, Daily, 30 2012 Medical coated tablet tab, Center Substitution Allowed, ECTAB Coreg 12.5 mg 12.5 mg, 1 PO Active [facility] oral tablet tab, PO, BID, 2012 Medical 180 tab, Center Substitution Allowed, TAB Saline Flush 5 ml, Route: IVP No Longer [facility] 0.9% IVP, Drug Active 2012 Medical Form: INJ, Center Dosing Weight 81.818, kg, PRN, PRN Line Flush, Start date: 01/19/13 6:11:00, Duration: 30 day, Stop date: 02/18/13 6:10:00 warfarin 4 mg, 2 tab, PO No Longer [place] [facility] Route: PO, Active 2011 Medical Drug form: Center TAB, Q5PM, Dosing Weight 86.364, kg, Start date: 07/31/12 17:00:00, Duration: 1 doses or times, Stop date: 07/31/12 17:00:00 warfarin 4 mg, 2 tab, PO No Longer [place] [facility] Route: PO, Active 2011 Medical Drug form: Center TAB, Q5PM, Dosing Weight 86.364, kg, Start date: 07/30/12 17:00:00, Duration: 1 doses or times, Stop date: 07/30/12 17:00:00 pravastatin 20 40 mg, 2 tab, [facility] mg oral tablet PO, QPM, 60 2011 Medical tab, Center Substitution Allowed, TAB Flexeril 10 mg 5 mg, 0.5 [facility] [place] [facility] tab, PO, QPM, 2011 Medical 30 tab, Center Substitution Allowed, TAB [place] 10/325 1 tab, PO, PO Active [place] oral tablet BID, PRN, 60 2011 Medical tab, Pain, Center Substitution Allowed, Maintenance, TAB warfarin 2 mg 4 mg, 2 tab, PO Active [place] oral tablet PO, Q5PM, 2011 Medical Goal INR 2- Center 2.5. Please check INR on Friday. Results to PCP, 30 tab, Substitution Allowed, TABGoal INR 2- 2.5. Please check INR on Friday. Results to PCP Protonix 40 mg 40 mg, 1 tab, PO Active [place] oral enteric PO, Before 2011 Medical coated tablet Dinner, 30 Center tab, Substitution Allowed, ECTAB magnesium oxide 400 mg, 1 PO Active [place] 400 mg oral tab, PO, TID, 2011 Medical tablet 90 tab, Center Substitution Allowed, TAB lisinopril 10 mg 10 mg, 1 tab, PO Active [place] oral tablet PO, Daily, 30 2011 Medical tab, Center Substitution Allowed, TAB insulin glargine 20 unit, 0.2 SUB-Q Active [facility] 100 units/mL mL, SUB-Q, 2011 Medical subcutaneous Daily, 1 mL, [place] solution Substitution Allowed, SOLN gabapentin 100 100 mg, 1 PO Active [place] [facility] mg oral capsule cap, PO, Q8H, 2011 Medical 90 cap, Center Substitution Allowed, CAP clopidogrel 75 75 mg, 1 tab, PO Active [place] 07/30/ [place] mg oral tablet PO, Daily, 30 2011 Medical tab, Center Substitution Allowed, TAB citalopram 10 mg 10 mg, 1 tab, PO Active [place] oral tablet PO, Daily, 30 2011 Medical tab, Center Substitution Allowed, TAB Coreg 12.5 mg 12.5 mg, 1 PO Active [place] oral tablet tab, PO, 2011 Medical Q12H, 60 tab, Center Substitution Allowed, TAB aspirin 81 mg 81 mg, 1 tab, PO Active [place] tablet, enteric PO, Daily, 30 2011 Medical coated tab, Center Substitution Allowed, ECTAB aspirin 81 mg 81 mg, 1 tab, PO No Longer [facility] tablet, enteric Route: PO, Active Mario Alberto2011 Medical coated Drug form: Center ECTAB, Daily, Start date: 07/30/12 8:00:00, Duration: 30 day, Stop date: 08/28/12 8:00:00 aspirin 325 mg 325 mg, 1 PO No Longer [facility] tablet, enteric tab, Route: Active Mario Alberto2011 Medical coated PO, Drug Center form: ECTAB, ONCE, Start date: 07/29/12 22:30:00, Stop date: 07/29/12 22:30:00 warfarin 5 mg, 1 tab, PO No Longer [facility] Route: PO, Active Mario Alberto2011 Medical Drug form: Center TAB, ONCE, Dosing Weight 86.364, kg, Priority: NOW, Start date: 07/29/12 18:48:00, Stop date: 07/29/12 18:48:00 Flexeril 5 mg, 0.5 PO No Longer [place] [facility] tab, Route: Active 2011 Medical PO, Drug Center form: TAB, QPM, Dosing Weight 86.364, kg, Start date: 07/29/12 17:00:00, Duration: 30 day, Stop date: 08/27/12 17:00:00 pravastatin 40 mg, 2 tab, PO No Longer [facility] Route: PO, Active 2011 Medical Drug form: Center TAB, QPM, Dosing Weight 86.364, kg, Start date: 07/27/12 17:00:00, Duration: 30 day, Stop date: 08/25/12 17:00:00 Coumadin 7.5 mg, 1 PO No Longer [place] 07/26[facility] tab, Route: Active 2011 Medical PO, Drug Center form: TAB, Q5PM, Dosing Weight 86.364, kg, Start date: 07/26/12 17:00:00, Duration: 1 doses or times, Stop date: 07/26/12 17:00:00 Coumadin 7.5 mg, 1 PO No Longer [place] [facility] tab, Route: Active 2011 Medical PO, Drug Center form: TAB, ONCE, Dosing Weight 86.364, kg, Start date: 07/25/12 17:45:00, Stop date: 07/25/12 17:45:00 acetaminophen 325 mg, 1 PO No Longer [place] [facility] tab, Route: Active 2011 Medical PO, Drug Center form: TAB, BID, Dosing Weight 86.364, kg, Start date: 07/25/12 7:00:00, Duration: 30 day, Stop date: 08/23/12 12:00:00 warfarin 7.5 mg, 1 PO No Longer [facility] 07/24[facility] tab, Route: Active 2011 Medical PO, Drug Center form: TAB, Q5PM, Dosing Weight 86.364, kg, Start date: 07/24/12 17:00:00, Duration: 1 doses or times, Stop date: 07/24/12 17:00:00 warfarin 7.5 mg, 1 PO No Longer [place] 07/23[facility] tab, Route: Active 2011 Medical PO, Drug Center form: TAB, Q5PM, Dosing Weight 86.364, kg, Start date: 07/23/12 17:00:00, Duration: 1 doses or times, Stop date: 07/23/12 17:00:00 warfarin 7.5 mg, 1 PO No Longer [facility] 07/22[facility] tab, Route: Active 2011 Medical PO, Drug Center form: TAB, ONCE, Dosing Weight 86.364, kg, Start date: 07/22/12 17:24:00, Stop date: 07/22/12 17:24:00 Dextrose 50% 25 gm, 50 mL, IVP No Longer [facility] 07/22[facility] Syringe Route: IVP, Active 2011 Medical Drug Form: Center INJ, Dosing Weight 86.364, kg, PRN, PRN Blood Glucose Results, Start date: 07/22/12 13:47:00, Duration: 30 day, Stop date: 08/21/12 13:46:00 glucagon 1 mg, Route: IM No Longer [facility] 07/22[facility] IM, Drug Active 2011 Medical form: Center PDR/INJ, PRN, Dosing Weight 86.364, kg, PRN Blood Glucose Results, Start date: 07/22/12 13:47:00, Duration: 30 day, Stop date: 08/21/12 13:46:00 Insulin regular 4 unit, 0.04 SUB-Q No Longer [facility] 07/22[facility] mL, Route: Active 2011 Medical SUB-Q, Drug Center form: SOLN, Bedtime, Dosing Weight 86.364, kg, PRN Blood Glucose Results, Start date: 07/22/12 13:47:00, Duration: 30 day, Stop date: 08/21/12 13:46:00 pneumococcal 0.5 ml, IM No Longer SYSTEM OPID 23-valent Route: IM, Active 2011 Julian, vaccine Drug Form: [facility] INJ, Start Medical date: [place] 07/22/12 9:00:00, Stop date: 07/22/12 9:00:00 lisinopril 10 mg, 1 tab, PO No Longer [facility] Route: PO, Active 2011 Medical Drug form: Center TAB, Daily, Dosing Weight 67, kg, Start date: 07/22/12 9:00:00, Duration: 30 day, Stop date: 08/20/12 9:00:00 insulin glargine 20 unit, 0.2 SUB-Q No Longer [facility] mL, Route: Active 2011 Medical SUB-Q, Drug Center form: INJ, Daily, Dosing Weight 67, kg, Start date: 07/22/12 9:00:00, Duration: 30 day, Stop date: 08/20/12 9:00:00 clopidogrel 75 mg, 1 tab, PO No Longer [facility] 07/22[facility] Route: PO, Active 2011 Medical Drug form: Center TAB, Daily, Dosing Weight 67, kg, Start date: 07/22/12 9:00:00, Duration: 30 day, Stop date: 08/20/12 9:00:00 citalopram 10 mg, 1 tab, PO No Longer [facility] Route: PO, Active 2011 Medical Drug form: Center TAB, Daily, Dosing Weight 67, kg, Start date: 07/22/12 9:00:00, Duration: 30 day, Stop date: 08/20/12 9:00:00 aspirin 325 mg 325 mg, 1 PO No Longer [facility] tablet tab, Route: Active 2011 Medical PO, Drug Center form: TAB, Daily, Dosing Weight 67, kg, Start date: 07/22/12 9:00:00, Duration: 30 day, Stop date: 08/20/12 9:00:00 Coreg 12.5 mg, 1 PO No Longer [facility] tab, Route: Active 2011 Medical PO, Drug Center form: TAB, Q12H, Dosing Weight 67, kg, Start date: 07/21/12 21:00:00, Stop date: 08/20/12 9:00:00 magnesium oxide 400 mg, 1 PO No Longer [facility] tab, Route: Active 2011 Medical PO, Drug Center form: TAB, TID, Dosing Weight 67, kg, Start date: 07/21/12 17:00:00, Duration: 30 day, Stop date: 08/20/12 13:00:00 docusate 100 mg, 1 PO No Longer [facility] cap, Route: Active 2011 Medical PO, Drug Center form: CAP, BID, Dosing Weight 67, kg, Start date: 07/21/12 17:00:00, Duration: 30 day, Stop date: 08/20/12 9:00:00 Coumadin 7.5 mg, PO No Longer [place] [facility] Route: PO, Active 2011 Medical Drug form: [place] TAB, Q5PM, Dosing Weight 67, kg, Start date: 07/21/12 17:00:00, Duration: 30 day, Stop date: 08/19/12 17:00:00 atorvastatin 80 mg, 1 tab, PO No Longer [facility] Route: PO, Active 2011 Medical Drug form: Center TAB, Bedtime, Dosing Weight 67, kg, Start date: 07/21/12 17:00:00, Duration: 30 day, Stop date: 08/19/12 21:00:00 magnesium oxide 400 mg, 1 PO No Longer Mike-Amanda [facility] base 500 mg oral tab, Route: Active 2011 Medical tablet PO, Drug Center Form: TAB, Dosing Weight 67, kg, TID, Start date: 07/21/12 17:00:00, Duration: 30 day, Stop date: 08/20/12 13:00:00 Protonix 40 mg, 1 tab, PO No Longer [facility] Route: PO, Active 2011 Medical Drug form: Center ECTAB, Before Dinner, Dosing Weight 67, kg, Start date: 07/21/12 16:30:00, Duration: 30 day, Stop date: 08/19/12 16:30:00 Lantus 100 20 unit, 0.2 SUB-Q Active Mike-Amanda [place] units/mL mL, SUB-Q, 2011 Medical subcutaneous Daily, 1 Center solution vial, Substitution Allowed, SOLN magnesium oxide 500 mg, PO, PO Active Mike-Amanda 07/21/ [place] 500 mg oral TID, 90 tab, 2011 Medical tablet Substitution Center Allowed, TAB Neurontin 100 mg 100 mg, 1 PO Active [facility]Amand[facility] 07/21/ [place] oral capsule cap, PO, Q8H, 2011 cap, Center Substitution Allowed, CAP Coumadin 7.5 mg 7.5 mg, 1 PO Active [facility] 07/21/ [place] oral tablet tab, PO, 2011 Medical Q5PM, 31 tab, Center Substitution Allowed, TAB Protonix 40 mg 40 mg, 1 tab, PO Active Mike[facility]Amand[facility] 07/21/ [place] oral enteric PO, Before 2011 Medical coated tablet Dinner, 30 [place] tab, Substitution Allowed, ECTAB lisinopril 10 mg 10 mg, 1 tab, PO Active Mike[facility]Amand[facility] 07/21/ [place] oral tablet PO, Daily, 2011 Medical tab, Center Substitution Allowed, TAB clopidogrel 75 75 mg, 1 tab, PO Active Mike[facility] 07/21/ [facility] [place] mg oral tablet PO, Daily, 30 2011 Medical tab, Center Substitution Allowed, TAB citalopram 10 mg 10 mg, 1 tab, PO Active [facility] 07/21/ [facility] [place] oral tablet PO, Daily, 2011 Medical tab, Center Substitution Allowed, TAB Coreg 3.125 mg 3.125 mg, 1 PO Active Mike[facility]Amand[facility] 07/21/ [place] oral tablet tab, PO, 2011 Medical Q12H, 60 tab, Center Substitution Allowed, TAB atorvastatin 80 80 mg, 1 tab, PO Active Mike-Amanda 07/21/ [facility] [place] mg oral tablet PO, QPM, 30 2011 Medical tab, Center Substitution Allowed, TAB aspirin 325 mg 325 mg, 1 PO Active Mike-Amanda 07/21/ [place] tablet tab, PO, 2011 Medical Daily, 30 Center tab, Substitution Allowed, TAB gabapentin 100 mg, 1 PO No Longer [facility] cap, Route: Active 2011 Medical PO, Drug Center form: CAP, Q8H, Dosing Weight 67, kg, Start date: 07/21/12 16:00:00, Duration: 30 day, Stop date: 08/20/12 8:00:00 Neurontin 100 mg 100 mg, 1 PO No Longer [facility] oral capsule cap, Route: Active 2011 Medical PO, Drug Center form: CAP, Q8H, Dosing Weight 67, kg, Start date: 07/21/12 16:00:00, Duration: 30 day, Stop date: 08/20/12 8:00:00 nitroglycerin 0.4 mg, 1 SL No Longer [facility] 0.4 mg tab, Route: Active 2011 [facility] sublingual SL, Drug Center tablet form: TAB, Q5Min, Dosing Weight 67, kg, PRN Chest Pain, Start date: 07/21/12 14:58:00, Duration: 30 day, Stop date: 08/20/12 14:57:00 acetaminophen 650 mg, 2 PO No Longer [facility] tab, Route: Active 2011 Medical PO, Drug Center form: TAB, Q6H, Dosing Weight 67, kg, PRN Pain, Start date: 07/21/12 14:57:00, Duration: 30 day, Stop date: 08/20/12 14:56:00 [place] 10/325 1 tab, Route: PO No Longer [facility] oral tablet PO, Drug Active 2011 Medical Form: TAB, Center Dosing Weight 67, kg, Q4H, PRN Pain, Start date: 07/21/12 14:56:00, Duration: 30 day, Stop date: 08/20/12 14:55:00 Coumadin 7.5 mg 7.5 mg, 1 PO No Longer Mike-Amanda [facility] oral tablet tab, PO, Active [...] 400 mg, 1 PO No Longer [place] [facility] oral tablet tab, Route: Active 2011 Medical PO, Drug Center form: TAB, Q4H, Dosing Weight 67, kg, PRN Pain, Start date: 07/21/12 1:32:00, Duration: 30 day, Stop date: 08/20/12 1:31:00 warfarin 5 mg, 1 tab, PO No Longer [place] [facility] Route: PO, Active 2011 Medical Drug form: Center TAB, Q5PM, Dosing Weight 67, kg, Start date: 07/20/12 21:00:00, Duration: 1 doses or times, Stop date: 07/20/12 21:00:00 metoprolol 5 5 mg, 5 mL, IVP No Longer Shayne [place] mg/5 ml INJ Route: IVP, Active 2011 Medical Drug form: Center INJ, ONCE, Dosing Weight 67, kg, PRN Other -See Comment, Start date: 07/20/12 12:00:00, Stop date: 08/19/12 11:59:00 magnesium oxide 800 mg, 2 PO No Longer [place] [facility] tab, Route: Active 2011 Medical PO, Drug Center form: TAB, ONCE, Dosing Weight 67, kg, Start date: 07/20/12 11:38:00, Stop date: 07/20/12 11:38:00 Coumadin 5 mg, 1 tab, PO No Longer Siddiqui [facility] Route: PO, Active 2011 Medical Drug form: Center TAB, Q5PM, Dosing Weight 67, kg, Start date: 07/19/12 17:00:00, Duration: 1 doses or times, Stop date: 07/19/12 17:00:00 Lantus 20 unit, 0.2 SUB-Q No Longer [place] [facility] mL, Route: Active 2011 Medical SUB-Q, Drug Center form: INJ, Daily, Start date: 07/19/12 9:00:00, Duration: 30 day, Stop date: 08/17/12 9:00:00 magnesium 2 gm, 50 mL, IVPB No Longer [place] sulfate Route: IVPB, Active 2011 Medical Drug form: Center INJ, Q2H, Dosing Weight 67, kg, Total dose=6 gm, Start date: 07/19/12 6:00:00, Duration: 3 doses or times, Stop date: 07/19/12 10:00:00 calcium chloride 2,000 mg, 20 IV No Longer [place] + Sodium mL, Route: Active 2011 Medical [...] date: 07/18/12 12:00:00, For Mg=1.0 - 1.4 mg/dLFor Mg=1.0 - 1.4 mg/dL Saline Flush 5 ml, Route: IVP No Longer Ila [place] 0.9% IVP, Drug Active 2011 Medical Form: INJ, Center Dosing Weight 67, kg, Q12H, Start date: 07/17/12 21:00:00, Duration: 30 day, Stop date: 08/16/12 9:00:00 Coreg 6.25 mg, PO No Longer Mike-Amanda [place] Route: PO, Active 2011 Medical ONCE, Dosing Center Weight 67, kg, Start date: 07/17/12 14:49:00, Stop date: 07/17/12 14:49:00 Saline Flush 5 ml, Route: IVP No Longer [facility] [place] 0.9% IVP, Drug Active 2011 Medical Form: INJ, Center Dosing Weight 67, kg, PRN, PRN Line Flush, Start date: 07/17/12 14:12:00, Duration: 30 day, Stop date: 08/16/12 14:11:00 nitroglycerin SL 0.4 mg, 1 SL No Longer [facility] [place] Tab tab, Route: Active 2011 Medical SL, Drug Center form: TAB, Q5Min, Dosing Weight 67, kg, PRN Chest Pain, Start date: 07/17/12 14:12:00, Duration: 30 day, Stop date: 08/16/12 14:07:00 Coreg 6.25 mg, 1 PO No Longer Gaurang [place] tab, Route: Active 2011 Medical PO, Drug Center form: TAB, ONCE, Start date: 07/17/12 13:28:00, Stop date: 07/17/12 13:28:00 Coreg 6.25 mg, PO No Longer [place] Route: PO, Active 2011 Medical Drug form: [place] TAB, ONCE, Dosing Weight 67, kg, Start date: 07/17/12 8:46:00, Stop date: 07/17/12 8:46:00 magnesium 2 gm, 50 mL, IVPB No Longer [place] sulfate Route: IVPB, Active 2011 Medical Drug form: [place] INJ, ONCE, Dosing Weight 67, kg, Total [...] Route: PO, Active 2011 Medical Drug form: [place] TAB, QPM, Dosing Weight 82.273, kg, Start date: 07/16/12 17:00:00, Duration: 30 day, Stop date: 08/14/12 17:00:00 Protonix 40 mg, 1 tab, PO No Longer Valentin [facility] Route: PO, Active 2011 Medical Drug form: [place] ECTAB, Before Dinner, Dosing Weight 82.273, kg, Start date: 07/16/12 16:30:00, Duration: 30 day, Stop date: 08/14/12 16:30:00 heparin 2,000 unit, 2 IV No Longer Valentin [facility] mL, Route: Active 2011 Medical IV, Drug Center form: INJ, PRN, PRN Abnormal Lab Result, Start date: 07/16/12 11:34:00, Duration: 30 day, Stop date: 08/15/12 11:33:00 heparin 4,000 unit, 4 IV No Longer Valent[facility] mL, Route: Active 2011 Medical IV, Drug Center form: INJ, PRN, PRN Abnormal Lab Result, Start date: 07/16/12 11:32:00, Duration: 30 day, Stop date: 08/15/12 11:31:00 Heparin - one 4,000 unit, 4 IV No Longer Michael [facility] time bolus for mL, Route: Active 2011 Medical ACS IV, Drug Center form: INJ, ONCE, Dosing Weight 82.273, kg, Priority: STAT, Start date: 07/16/12 11:09:00, Stop date: 07/16/12 11:09:00 Heparin - 25,000 unit, IV No Longer Siddiqui [place] infusion (ACS 500 mL, Rate: Active 2011 Medical Protocol) Start at Center heparin 25,000 units/kg/hr - units in D5W 500 adjust per mL Premix 25,000 ACS protocol, unit Dosing Weight 82.273, kg, Route: IV, Total Volume: 500 ml, Start date: 07/16/12 11:09:00, Duration: 30 day, Stop date: 08/15/12 11:08:00, Replace Every: 24 hr lisinopril 10 mg, 1 tab, PO No Longer Valentin [place] Route: PO, Active 2011 Medical Drug form: Center TAB, Daily, Dosing Weight 82.273, kg, Start date: 07/16/12 9:00:00, Duration: 30 day, Stop date: 08/14/12 9:00:00 insulin glargine 20 unit, SUB-Q No Longer [place] Route: SUB-Q, Active 2011 Medical Drug form: Center INJ, Daily, Dosing Weight 82.273, kg, Start date: 07/16/12 9:00:00, Duration: 30 day, Stop date: 08/14/12 9:00:00 clopidogrel 75 mg, 1 tab, PO No Longer [facility] Route: PO, Active 2011 Medical Drug form: Center TAB, Daily, Dosing Weight 82.273, kg, Start date: 07/16/12 9:00:00, Duration: 30 day, Stop date: 08/14/12 9:00:00 citalopram 10 mg, 1 tab, PO No Longer [facility] Route: PO, Active 2011 Medical Drug form: Center TAB, Daily, Dosing Weight 82.273, kg, Start date: 07/16/12 9:00:00, Duration: 30 day, Stop date: 08/14/12 9:00:00 aspirin 325 mg 325 mg, 1 PO No Longer [facility] tablet tab, Route: Active 2011 Medical PO, Drug Center form: TAB, Daily, Dosing Weight 82.273, kg, Start date: 07/16/12 9:00:00, Duration: 30 day, Stop date: 08/14/12 9:00:00 docusate 100 mg, 1 PO No Longer [facility] cap, Route: Active 2011 Medical PO, Drug Center form: CAP, BID, Dosing Weight 82.273, kg, Start date: 07/16/12 9:00:00, Duration: 30 day, Stop date: 08/14/12 17:00:00 magnesium 2 gm, 50 mL, IVPB No Longer Valentin [facility] sulfate Route: IVPB, Active 2011 Medical Drug form: Center INJ, Q2H, Dosing Weight 82.273, kg, Total dose=4 gm, Start date: 07/16/12 8:00:00, Duration: 1 doses or times, Stop date: 07/16/12 10:00:00 magnesium 2 gm, 50 mL, IVPB No Longer [facility] 07/16[facility] sulfate Route: IVPB, Active 2011 Medical Drug form: Center INJ, ONCE, Dosing Weight 82.273, kg, Total dose=2 gm, Start date: 07/16/12 5:50:00, Duration: 1 doses or times, Stop date: 07/16/12 5:50:00 Coreg 12.5 mg, 1 PO No Longer [facility] tab, Route: Active 2011 Medical PO, Drug Center form: TAB, Q12H, Dosing Weight 82.273, kg, Start date: 07/15/12 21:00:00, Stop date: 08/14/12 9:00:00 heparin 5,000 unit, 1 SUB-Q No Longer Valentin [facility] mL, Route: Active 2011 Medical SUB-Q, Drug Center form: INJ, Q12H, Dosing Weight 82.273, kg, Start date: 07/15/12 21:00:00, Duration: 30 day, Stop date: 08/14/12 9:00:00 magnesium 2 gm, 50 mL, IVPB No Longer Valentin [facility] sulfate Route: IVPB, Active 2011 Medical Drug form: Center INJ, ONCE, Dosing Weight 82.273, kg, Total dose=2 gm, Start date: 07/15/12 19:04:00, Duration: 1 doses or times, Stop date: 07/15/12 19:04:00 nitroglycerin 0.4 mg, 1 SL No Longer Valentin [place] 0.4 mg tab, Route: Active 2011 Medical [...] 12.5 gm, 25 IVP No Longer Valentin [facility] Syringe mL, Route: Active 2011 Medical IVP, Drug Center Form: INJ, Dosing Weight 82.273, kg, PRN, PRN Blood Glucose Results, Start date: 07/15/12 18:15:00, Duration: 30 day, Stop date: 08/14/12 18:14:00 [place] 10/325 1 tab, Route: PO No Longer Valentin [facility] oral tablet PO, Drug Active 2011 Medical Form: TAB, Center Dosing Weight 82.273, kg, Q4H, PRN as needed for pain, Start date: 07/15/12 18:13:00, Duration: 30 day, Stop date: 08/14/12 18:12:00 acetaminophen 650 mg, 2 PO No Longer Valentin [facility] tab, Route: Active 2011 Medical PO, Drug Center form: TAB, Q4H, Dosing Weight 82.273, kg, PRN Pain/Fever, Start date: 07/15/12 18:09:00, Duration: 30 day, Stop date: 08/14/12 18:08:00 atorvastatin 80 mg, 1 tab, PO No Longer Winifred [place] Route: PO, Active 2011 Medical Drug form: Center TAB, QPM, Dosing Weight 88.182, kg, Start date: 07/15/12 17:00:00, Duration: 30 day, Stop date: 08/13/12 17:00:00 Lopressor 5 mg, 5 mL, IV No Longer [place] [facility] Route: IV, Active 2011 Medical Drug form: Center INJ, ONCE, Start date: 07/15/12 16:52:00, Stop date: 07/15/12 16:52:00 metoprolol 5 5 mg, Route: IVP No Longer [place] [facility] mg/5 ml INJ IVP, Drug Active 2011 Medical form: INJ, Center Q2MIN, Dosing Weight 82.273, kg, PRN Other -See Comment, Start date: 07/15/12 16:41:00, Duration: 30 day, Stop date: 08/14/12 16:40:00 NS (Bolus) IV 500 mL, Rate: IV No Longer [place] 500 mL 500 ml/hr, Active 2011 Medical Infuse over: Center 1 hr, Route: IV, kg, Total Volume: 500, Priority: STAT, Start date: 07/15/12 16:41:00, Duration: 1 doses or times, Stop date: 07/15/12 17:40:00, Bolus DoseBolus Dose Protonix 40 mg, 1 tab, PO No Longer Win[facility]red [facility] Route: PO, Active 2011 Medical Drug form: [place] ECTAB, Before Dinner, Dosing Weight 88.182, kg, Start date: 07/15/12 16:30:00, Duration: 30 day, Stop date: 08/13/12 16:30:00 Lopressor 5 mg, 5 mL, IV No Longer [place] [facility] Route: IV, Active 2011 Medical Drug form: [place] INJ, ONCE, Start date: 07/15/12 16:26:00, Stop date: 07/15/12 16:26:00 [place] 10/325 1 tab, PO, PO On Hold [place] 07/15[facility] oral tablet Q4H, PRN, 90 2011 Medical tab, Pain Center Score 6-10, Substitution Allowed, Maintenance, TAB Protonix 40 mg 40 mg, 1 tab, PO On Hold [place] 07/15[facility] oral enteric PO, Before 2011 Medical coated tablet Dinner, 30 [place] tab, Substitution Allowed, ECTAB lisinopril 10 mg 10 mg, 1 tab, PO On Hold [place] 07/15[facility] oral tablet PO, Daily, 2011 Medical tab, Center Substitution Allowed, TAB insulin glargine 15 unit, 0.15 SUB-Q On Hold [place] [facility] 100 units/mL mL, SUB-Q, 2011 Medical subcutaneous Daily, 1 mL, [place] solution Substitution Allowed, SOLN heparin 5000 See Active [place] [facility] units/mL Instructions, 2011 Medical injectable SUB-Q Q8H, 1 Center solution syr, Substitution Allowed, SOLNSUB-Q Q8H clopidogrel 75 75 mg, 1 tab, PO On Hold [place] 07/15[facility] mg oral tablet PO, Daily, 30 2011 Medical tab, Center Substitution Allowed, TAB citalopram 10 mg 10 mg, 1 tab, PO On Hold [place] 07/15[facility] oral tablet PO, Daily, 30 2011 Medical tab, Center Substitution Allowed, TAB Coreg 3.125 mg 3.125 mg, 1 PO On Hold [place] [facility] oral tablet tab, PO, 2011 Medical Q12H, 60 tab, Center Substitution Allowed, TAB atorvastatin 80 80 mg, 1 tab, PO On Hold [place] [facility] mg oral tablet PO, QPM, 30 2011 Medical tab, Center Substitution Allowed, TAB aspirin 325 mg 325 mg, 1 PO On Hold [place] [facility] tablet tab, PO, 2011 Medical Daily, 30 Center tab, Substitution Allowed, TAB senna 8.6 mg 8.6 mg, 1 PO No Longer [facility] oral tablet tab, Route: Active 2011 Medical PO, Drug Center Form: TAB, Dosing Weight 88.182, kg, QNoon, Start date: 07/15/12 12:00:00, Duration: 30 day, Stop date: 08/13/12 12:00:00 Dextrose 50% 25 gm, 50 mL, IVP No Longer [facility] Syringe Route: IVP, Active 2011 Medical Drug Form: [place] INJ, Dosing Weight 88.182, kg, PRN, PRN Blood Glucose Results, Start date: 07/15/12 9:11:00, Duration: 30 day, Stop date: 08/14/12 9:10:00 Dextrose 50% 12.5 gm, 25 IVP No Longer [facility] Syringe mL, Route: Active 2011 [facility] IVP, Drug Center Form: INJ, Dosing Weight 88.182, kg, PRN, PRN Blood Glucose Results, Start date: 07/15/12 9:10:00, Duration: 30 day, Stop date: 08/14/12 9:09:00 influenza virus 0.5 ml, IM No Longer SYSTEM OPID vaccine, Route: IM, Active 2011 Julian, inactivated Drug Form: [facility] INJ, Start Medical date: [place] 07/15/12 9:00:00, Stop date: 07/15/12 9:00:00 lisinopril 10 mg, 1 tab, PO No Longer [facility] Route: PO, Active 2011 Medical Drug form: [place] TAB, Daily, Dosing Weight 88.182, kg, Start date: 07/15/12 9:00:00, Duration: 30 day, Stop date: 08/13/12 9:00:00 insulin glargine 15 unit, 0.15 SUB-Q No Longer [facility] mL, Route: Active 2011 Medical SUB-Q, Drug Center form: INJ, Daily, Dosing Weight 88.182, kg, Start date: 07/15/12 9:00:00, Duration: 30 day, Stop date: 08/13/12 9:00:00 clopidogrel 75 mg, 1 tab, PO No Longer Winifred [place] Route: PO, Active 2011 Medical Drug form: Center TAB, Daily, Dosing Weight 88.182, kg, Start date: 07/15/12 9:00:00, Duration: 30 day, Stop date: 08/13/12 9:00:00 citalopram 10 mg, 1 tab, PO No Longer Winifred [place] Route: PO, Active 2011 Medical Drug form: Center TAB, Daily, Dosing Weight 88.182, kg, Start date: 07/15/12 9:00:00, Duration: 30 day, Stop date: 08/13/12 9:00:00 aspirin 325 mg 325 mg, 1 PO No Longer Winifred [place] tablet tab, Route: Active 2011 Medical PO, Drug Center form: TAB, Daily, Dosing Weight 88.182, kg, Start date: 07/15/12 9:00:00, Duration: 30 day, Stop date: 08/13/12 9:00:00 atorvastatin 10 10 mg, 1 tab, PO No Longer [place] mg oral tablet PO, Daily, 30 2011 Medical tab, Center Substitution Allowed, TAB atenolol 50 mg 50 mg, 1 tab, PO No Longer [place] oral tablet PO, Daily, 30 2011 Medical tab, Center Substitution Allowed glimepiride 4 mg Substitution No Longer [place] oral tablet Allowed Active 2011 Medical [place] hydrochlorothiaz 1 tab, PO, PO No Longer [place] juno-losartan 25 Daily, 30 Active 2011 Medical mg-100 mg oral tab, Center tablet Substitution Allowed, Maintenance, TAB aspirin 81 mg 81 mg, 1 tab, PO No Longer [place] tablet, chewable PO, Daily, 2011 Medical tab, Center Substitution Allowed, [place] amLODipine 5 mg 5 mg, 1 tab, PO No Longer [place] oral tablet PO, Daily, 30 2011 Medical tab, Center Substitution Allowed, TAB lisinopril 30 mg Daily, No Longer [place] oral tablet Substitution Active 2011 [facility] Allowed [place] NovoLog Mix Substitution No Longer [place] 70/30 FlexPen Allowed Active 2011 Medical [place] heparin 5000 5,000 unit, 1 SUB-Q No Longer [facility] [place] units/mL mL, Route: Active 2011 Medical injectable SUB-Q, Drug Center solution form: INJ, Q8H, Dosing Weight 88.182, kg, Start date: 07/15/12 0:00:00, Duration: 30 day, Stop date: 08/13/12 16:00:00 Insulin regular 1 unit, 0.01 SUB-Q No Longer Winifred [place] mL, Route: Active 2011 Medical SUB-Q, Drug Center form: SOLN, TID-Before Meals, Dosing Weight 82.273, kg, PRN Blood Glucose Results, Start date: 07/14/12 23:06:00, Duration: 30 day, Stop date: 08/13/12 23:05:00 docusate 100 mg, 1 PO No Longer Winifred [place] cap, Route: Active 2011 Medical PO, Drug Center form: CAP, Q12H, Dosing Weight 88.182, kg, Start date: 07/14/12 21:00:00, Duration: 30 day, Stop date: 08/13/12 9:00:00 Coreg 3.125 mg, 1 PO No Longer Valentin [place] tab, Route: Active 2011 Medical PO, Drug Center form: TAB, Q12H, Dosing Weight 88.182, kg, Start date: 07/14/12 21:00:00, Duration: 30 day, Stop date: 08/13/12 9:00:00 nitroglycerin 0.4 mg, 1 SL No Longer [facility] 0.4 mg tab, Route: Active 2011 [facility] sublingual SL, Drug Center tablet form: TAB, Q5Min, Dosing Weight 88.182, kg, PRN Chest Pain, Start date: 07/14/12 17:50:00, Duration: 30 day, Stop date: 08/13/12 17:49:00 bisacodyl 10 mg, 1 CT No Longer [facility] supp, Route: Active [address], Drug Center form: SUPP, Daily, Dosing Weight 88.182, kg, PRN Constipation, Start date: 07/14/12 17:50:00, Duration: 30 day, Stop date: 08/13/12 17:49:00 acetaminophen 650 mg, 2 PO No Longer [facility] [place] tab, Route: Active 2011 Medical PO, Drug Center form: TAB, Q6H, Dosing Weight 88.182, kg, PRN Pain, Start date: 07/14/12 17:49:00, Duration: 30 day, Stop date: 08/13/12 17:48:00 [place] 10/325 1 tab, Route: PO No Longer [facility] [place] oral tablet PO, Drug Active 2011 Medical [...] Longer [place] oral enteric PO, Before 2011 Medical coated tablet Dinner, 30 Center tab, Substitution Allowed, ECTAB insulin regular 7 unit, 0.07 [facility] [place] [facility], [facility]-Q, Active 2011 Medical recombinant 100 PRN, PRN, 1 Center units/mL mL, Abnormal injectable Lab Result, solution Substitution Allowed, SOLN insulin regular 5 unit, 0.05 SUB-Q [facility] Long[facility] [place] human mL, SUB-Q, Active 2011 Medical recombinant 100 PRN, PRN, 1 Center units/mL mL, Abnormal injectable Lab Result, solution Substitution Allowed, SOLN insulin regular 3 unit, 0.03 SUB-Q [facility] Long[facility] [place] human mL, SUB-Q, Active 2011 Medical recombinant 100 PRN, PRN, 1 Center units/mL mL, Abnormal injectable Lab Result, solution Substitution Allowed, SOLN insulin glargine 15 unit, 0.15 SUB-Q No Longer [place] 100 units/mL mL, SUB-Q, Active 2011 Medical subcutaneous Daily, 1 mL, Center solution Substitution Allowed, SOLN heparin 5000 See No Longer [place] units/mL Instructions, 2011 Medical injectable 5000 SUB-Q Center solution Q8H, 1 vial, Substitution Allowed, [id number] SUB-Q Q8H Coreg 3.125 mg 3.125 mg, 1 PO No Longer [place] oral tablet tab, PO, Active 2011 [...] No Longer Napierkowski [place] sulfate Route: IVPB, Active 2011 Medical Drug form: [place] INJ, Q2H, Dosing Weight 88.182, kg, Start date: 07/14/12 14:00:00, Duration: 2 doses or times, Stop date: 07/14/12 16:00:00, For Mg=1.5 - 1.7 mg/dLFor Mg=1.5 - 1.7 mg/dL metoprolol 5 5 mg, 5 mL, IV No Longer Mike-Amanda [place] mg/5 ml INJ Route: IV, Active 2011 Medical Drug form: [place] INJ, ONCE, Dosing Weight 88.182, kg, Start date: 07/14/12 6:26:00, Stop date: 07/14/12 6:26:00 Protonix 40 mg, 1 tab, PO No Longer Larsen [place] Route: PO, Active 2011 Medical Drug form: [place] ECTAB, Before Dinner, Dosing Weight 88.182, kg, Start date: 07/13/12 16:30:00, Duration: 30 day, Stop date: 08/11/12 16:30:00 lisinopril 10 mg, 1 tab, PO No Longer Siddiqui Red[place] Route: PO, Active 2011 Medical Drug form: [place] TAB, Daily, Dosing Weight 88.182, kg, Start date: 07/13/12 9:00:00, Duration: 30 day, Stop date: 08/11/12 9:00:00 magnesium 2 gm, 50 mL, IVPB No Longer Mike-Amanda [place] sulfate Route: IVPB, Active 2011 Medical Drug form: [place] INJ, ONCE, Dosing Weight 88.182, kg, Start date: 07/13/12 7:19:00, Duration: 1 doses or times, Stop date: 07/13/12 7:19:00, For Mg=1.8 - 2 mg/dLFor Mg=1.8 - 2 mg/dL calcium 1,000 mg, 10 IVPB No Longer Mike-Amanda [place] gluconate + mL, Route: Active 2011 Medical Sodium Chloride IVPB, ONCE, [place] 0.9% IV 50 mL Dosing Weight 88.182, kg, Start date: 07/13/12 7:18:00, Duration: 1 doses or times, Stop date: 07/13/12 7:18:00, For Ionized Ca=1 - 1.03 mmol/L or Corrected Ca=8 - 8.5mg/dLFor Ionized Ca=1 - 1.03 mmol/L or Corrected Ca=8 - 8.5mg/dL metoprolol 5 5 mg, 5 mL, IV No Longer Cody Red[place] mg/5 ml INJ Route: IV, Active 2011 Medical Drug form: [place] INJ, ONCE, Dosing Weight 88.182, kg, Start date: 07/13/12 5:26:00, Stop date: 07/13/12 5:26:00 magnesium oxide 400 mg, 1 PO No Longer Cody Reddy tab, Route: Active 2011 Medical PO, Drug Center form: TAB, ONCE, Dosing Weight 88.182, kg, Start date: 07/13/12 5:24:00, Stop date: 07/13/12 5:24:00 Sodium Chloride 250 mL, Rate: IV No Longer Siddiqui [place] 0.9% (Bolus) IV 250 ml/hr, Active 2011 Medical 250 mL Infuse over: Center 1 hr, Route: IV, kg, Total Volume: 250, Bolus Dose, Priority: STAT, Start date: 07/12/12 11:54:00, Duration: 1 doses or times, Stop date: 07/12/12 12:53:00 Benadryl 25 mg, 1 cap, PO No Longer Mike-Amanda [place] Route: PO, Active 2011 Medical Drug form: [place] CAP, TID, Dosing Weight 88.182, kg, PRN Itching, Start date: 07/12/12 11:50:00, Duration: 30 day, Stop date: 08/11/12 11:49:00 Coreg 3.125 mg, 1 PO No Longer Siddiqui [place] tab, Route: Active 2011 Medical PO, Drug Center form: TAB, Q12H, Dosing Weight 88.182, kg, Start date: 07/12/12 10:30:00, Duration: 30 day, Stop date: 08/11/12 6:00:00 Colace 50 mg 50 mg, 1 cap, PO No Longer Siddiqui [place] oral capsule Route: PO, Active 2011 Medical Drug form: [place] CAP, BID, Dosing Weight 88.182, kg, PRN Constipation, Start date: 07/12/12 9:31:00, Duration: 30 day, Stop date: 08/11/12 9:30:00 Sodium Chloride 250 mL, Rate: IV No Longer Siddiqui [place] 0.9% (Bolus) IV 250 ml/hr, Active 2011 Medical 250 mL Infuse over: Center 1 hr, Route: IV, kg, Total Volume: 250, Bolus Dose, Priority: STAT, Start date: 07/12/12 9:28:00, Duration: 1 doses or times, Stop date: 07/12/12 10:27:00 calcium 2,000 mg, 20 IVPB No Longer Mike-Amanda [place] gluconate + mL, Route: Active 2011 Medical Sodium Chloride IVPB, ONCE, Center 0.9% IV 80 mL Dosing Weight 88.182, kg, Start date: 07/12/12 7:18:00, Stop date: 07/12/12 7:18:00 Chloraseptic 1 spray, MUCOUS No Longer Larsen [place] 1.4% spray Route: MUCOUS MEM Active 2011 Medical MEM, Q4H, [place] Drug form: SPRY PRN Sore Throat, Start date: 07/12/12 1:37:00, Stop date: 08/11/12 1:36:00 heparin 5000 5,000 unit, 1 SUB-Q No Longer Shayne [place] units/mL mL, Route: Active 2011 Medical injectable SUB-Q, Drug Center solution form: INJ, Q8H, Dosing Weight 88.182, kg, Start date: 07/11/12 16:00:00, Duration: 30 day, Stop date: 08/10/12 8:00:00 lactulose 10 gm, 15 ml, PO No Longer Mike-Amanda Route: PO, Active 2011 Medical Drug Form: [place] SYRP, Dosing Weight 88.182, kg, Daily, PRN Constipation, Start date: 07/11/12 12:02:00, Duration: 30 day, Stop date: 08/10/12 12:01:00 normal saline 250 mL, Rate: IV No Longer Mike-Amanda [place] 0.9% IV 250 mL 250 ml/hr, Active 2011 Medical Infuse over: Center 1 hr, Route: IV, kg, Total Volume: 250, Start date: 07/11/12 11:59:00, Duration: 1 doses or times, Stop date: 07/11/12 12:58:00 normal saline 1,000 mL, IV No Longer Mike-Amanda [place] 0.9% IV 1,000 mL Rate: 120 Active 2011 Medical ml/hr, Infuse Center over: 8.3 hr, Route: IV, kg, Total Volume: 1,000, Start date: 07/11/12 9:28:00, Stop date: 08/10/12 9:27:00 atorvastatin 80 mg, 1 tab, PO No Longer Solhpour [place] Route: PO, Active 2011 Medical Drug form: Center TAB, QPM, Dosing Weight 88.182, kg, Start date: 07/10/12 17:00:00, Duration: 30 day, Stop date: 08/08/12 17:00:00 Protonix 40 mg, Route: IVP No Longer Larsen [facility] IVP, Drug Active 2011 Medical form: INJ, Center Before Dinner, Dosing Weight 88.182, kg, Patient is NPO, Start date: 07/10/12 16:30:00, Duration: 30 day, Stop date: 08/08/12 16:30:00 ondansetron 4 mg, 2 mL, IVP No Longer [place] Route: IVP, Active 2011 Medical Drug form: [place] INJ, Q4H, Dosing Weight 88.182, kg, PRN Nausea & Vomiting, Start date: 07/10/12 13:21:00, Duration: 30 day, Stop date: 08/09/12 13:20:00 Integrilin 75 mg 75 mg, 100 IV No Longer Shayne [place] in 100 ml premix mL, Rate: Active 2011 Medical IV 75 mg Titrate, Center Dosing Weight 88.182, kg, Route: IV, Total Volume: 100 mL, Start date: 07/10/12 10:43:00, Duration: 2 day, Stop date: 07/12/12 10:42:00, Replace Every: 24 hr citalopram 10 mg, 1 tab, PO No Longer Mike-Amanda [facility] Route: PO, Active 2011 Medical Drug form: [place] TAB, Daily, Dosing Weight 88.182, kg, Start date: 07/10/12 9:00:00, Duration: 30 day, Stop date: 08/08/12 9:00:00 aspirin 325 mg 325 mg, 1 PO No Longer Mike-Amanda [facility] tablet tab, Route: Active 2011 Medical PO, Drug Center form: TAB, Daily, Dosing Weight 88.182, kg, Start date: 07/10/12 9:00:00, Duration: 30 day, Stop date: 08/08/12 6:00:00 atenolol 100 mg 100 mg, 1 PO No Longer Siddiqui [facility] oral tablet tab, Route: Active 2011 Medical PO, Drug Center form: TAB, Daily, Dosing Weight 88.182, kg, Start date: 07/10/12 9:00:00, Duration: 30 day, Stop date: 08/08/12 9:00:00 insulin glargine 15 unit, 0.15 SUB-Q No Longer Mike-Amanda [facility] mL, Route: Active 2011 Medical SUB-Q, Drug Center form: INJ, Daily, Dosing Weight 88.182, kg, Start date: 07/10/12 9:00:00, Duration: 30 day, Stop date: 08/08/12 9:00:00 clopidogrel 75 mg, 1 tab, PO No Longer Leigha [facility] Route: PO, Active 2011 Medical Drug form: Center TAB, Daily, Dosing Weight 88.182, kg, Start date: 07/10/12 9:00:00, Duration: 30 day, Stop date: 08/08/12 6:00:00 lisinopril 10 mg, 1 tab, PO No Longer Mike-Amanda [facility] Route: PO, Active 2011 Medical Drug form: [place] TAB, Daily, Dosing Weight 88.182, kg, Start date: 07/10/12 9:00:00, Duration: 30 day, Stop date: 08/08/12 9:00:00 magnesium 2 gm, 50 mL, IVPB No Longer Mike-Amanda [facility] sulfate Route: IVPB, Active 2011 Medical Drug form: [place] INJ, Q2H, Dosing Weight 88.182, kg, Start date: 07/10/12 8:00:00, Duration: 3 doses or times, Stop date: 07/10/12 12:00:00, For Mg=1.0 - 1.4 mg/dLFor Mg=1.0 - 1.4 mg/dL morphine Sulfate 2 mg, Route: IVP No Longer Solhpour [facility] IVP, ONCE, Active 2011 Medical Dosing Weight [place] 88.182, kg, Start date: 07/10/12 7:44:00, Stop date: 07/10/12 7:44:00 morphine Sulfate 2 mg, 0.5 mL, IVP No Longer Larsen [facility] Route: IVP, Active 2011 Medical Drug form: [place] INJ, Q3H, Dosing Weight 88.182, kg, PRN Pain, Start date: 07/10/12 7:33:00, Stop date: 08/09/12 7:32:00 niCARdipine 40 40 mg, 200 IV No Longer Solhpour [facility] mg in NS 200 ml mL, Rate: Active 2011 Medical IV 40 mg Titrate, Center Dosing Weight 88.182, kg, Route: IV, Total Volume: 200 mL, Duration: 30 day, Stop date: 08/09/12 7:14:00, Replace Every: 24 hr Cardene 40 mg in 40 mg, 200 IV No Longer Shayne [place] NS 200 ml IV 40 mL, Rate: Active 2011 Medical mg Titrate, Center Dosing Weight 88.182, kg, Route: IV, Total Volume: 200 mL, Duration: 30 day, Stop date: 08/09/12 7:07:00, Replace Every: 24 hr Dextrose 50% 12.5 gm, 25 IVP No Longer Mike-Amanda [place] Syringe mL, Route: Active 2011 Medical IVP, Drug Center Form: INJ, Dosing Weight 88.182, kg, PRN, PRN Blood Glucose Results, Start date: 07/10/12 6:32:00, Duration: 30 day, Stop date: 08/09/12 6:31:00 glucagon 1 mg, Route: IM No Longer Mike-Amanda [facility] IM, Drug Active 2011 Medical form: [place] PDR/INJ, PRN, Dosing Weight 88.182, kg, PRN Blood Glucose Results, Start date: 07/10/12 6:32:00, Duration: 30 day, Stop date: 08/09/12 6:31:00 amLODipine 5 mg, 1 tab, PO No Longer Siddiqui [facility] Route: PO, Active 2011 Medical Drug form: [place] TAB, Daily, Dosing Weight 88.182, kg, Start date: 07/10/12 6:14:00, Duration: 30 day, Stop date: 08/08/12 9:00:00 lisinopril 10 mg, 1 tab, PO No Longer Gibson [facility] Route: PO, Active 2011 Medical Drug form: [place] TAB, ONCE, Dosing Weight 88.182, kg, Start date: 07/10/12 4:10:00, Stop date: 07/10/12 4:10:00 Procardia XL 60 mg, 1 tab, PO No Longer Mike-Amanda [facility] Route: PO, Active 2011 Medical Drug form: [place] ERTAB, ONCE, Dosing Weight 88.182, kg, Start date: 07/10/12 4:02:00, Stop date: 07/10/12 4:02:00 morphine Sulfate 2 mg, 0.5 mL, IVP No Longer Mike-Amanda [facility] Route: IVP, Active 2011 Medical Drug form: [place] INJ, ONCE, Dosing Weight 88.182, kg, Start date: 07/10/12 2:35:00, Stop date: 07/10/12 2:35:00 metoprolol 25 mg, 1 tab, PO No Longer Mike-Amanda [facility] tartrate Route: PO, Active 2011 Medical Drug form: [place] TAB, Q6H, Dosing Weight 88.182, kg, Start date: 07/10/12 0:00:00, Duration: 30 day, Stop date: 08/08/12 18:00:00 morphine Sulfate 1 mg, Route: IVP No Longer Gibson [facility] IVP, ONCE, Active 2011 Medical Dosing Weight [place] 88.182, kg, Start date: 07/09/12 23:59:00, Stop date: 07/09/12 23:59:00 atenolol 50 mg 50 mg, 1 tab, PO No Longer Mike-Amanda [facility] oral tablet Route: PO, Active 2011 Medical Drug form: [place] TAB, ONCE, Dosing Weight 88.182, kg, Start date: 07/09/12 21:03:00, Stop date: 07/09/12 21:03:00 lisinopril 10 mg, 1 tab, PO No Longer Mike-Amanda [facility] Route: PO, Active 2011 Medical Drug form: [place] TAB, ONCE, Dosing Weight 88.182, kg, Start date: 07/09/12 21:02:00, Stop date: 07/09/12 21:02:00 Saline Flush 5 ml, Route: IVP No Longer Leigha [facility] 0.9% IVP, Drug Active 2011 Medical Form: INJ, [place] Dosing Weight 88.182, kg, Q12H, Start date: 07/09/12 21:00:00, Duration: 30 day, Stop date: 08/08/12 9:00:00 famotidine 20 mg, 1 tab, PO No Longer [place] Route: PO, Active 2011 Medical Drug form: [place] TAB, Q12H, Dosing Weight 88.182, kg, Start date: 07/09/12 21:00:00, Duration: 30 day, Stop date: 08/08/12 9:00:00 nitroglycerin SL 0.4 mg, 1 SL No Longer Mike-Amanda [place] Tab tab, Route: Active 2011 Medical SL, Drug Center form: TAB, Q5Min, Dosing Weight 88.182, kg, PRN Chest Pain, Start date: 07/09/12 20:20:00, Duration: 3 doses or times, Stop date: Limited # of times Saline Flush 5 ml, Route: IVP No Longer Leigha [place] 0.9% IVP, Drug Active 2011 Medical Form: INJ, Center Dosing Weight 88.182, kg, PRN, PRN Line Flush, Start date: 07/09/12 19:20:00, Duration: 30 day, Stop date: 08/08/12 19:19:00 nitroglycerin SL 0.4 mg, 1 SL No Longer Leigha [facility] Tab tab, Route: Active 2011 Medical SL, Drug Center form: TAB, Q5Min, Dosing Weight 88.182, kg, PRN Chest Pain, Start date: 07/09/12 19:20:00, Duration: 3 doses or times, Stop date: 08/09/12 0:00:00 aspirin 325 mg 325 mg, 4.01 PO No Longer Leigha [place] tablet tab, Route: Active 2011 Medical PO, Drug Center form: CHE[place]AB, ONCE, Dosing Weight 88.182, kg, Start date: 07/09/12 19:20:00, Stop date: 07/09/12 19:20:00 acetaminophen 650 mg, 20.3 PO No Longer Fazakerly [place] mL, Route: Active 2011 Medical PO, Drug Center form: LIQ, Q8H, Dosing Weight 88.182, kg, PRN Pain/Fever, Start date: 07/09/12 16:54:00, Duration: 30 day, Stop date: 08/08/12 16:53:00 labetalol 10 mg, 2 mL, IVP No Longer La [facility] Route: IVP, Active 2011 Medical Drug form: [place] INJ, Q15Min, Dosing Weight 88.182, kg, PRN Hypertension, Start date: 07/09/12 16:21:00, Duration: 3 doses or times, Stop date: Limited # of times Dextrose 50% 25 gm, 50 mL, IVP No Longer Dawson [facility] Syringe Route: IVP, Active 2011 Medical Drug Form: [place] INJ, Dosing Weight 88.182, kg, PRN, PRN Abnormal Lab Result, Start date: 07/08/12 21:55:00, Duration: 30 day, Stop date: 08/07/12 21:54:00 insulin regular 3 unit, 0.03 SUB-Q No Longer Dawson [facility] human mL, Route: Active 2011 Medical recombinant 100 SUB-Q, Drug Center units/mL form: SOLN, injectable PRN, Dosing solution Weight 88.182, kg, PRN Abnormal Lab Result, Start date: 07/08/12 21:55:00, Duration: 30 day, Stop date: 08/07/12 21:54:00 acetaminophen-ox 1 tab, Route: PO No Longer Mike-Amanda [facility] ycodone 325 mg-5 PO, Drug Active 2011 Medical mg oral tablet Form: TAB, Center Q4H, PRN Pain Score 6-10, Start date: 07/08/12 21:03:00, Stop date: 08/07/12 21:02:00 Saline Flush 5 ml, Route: IVP No Longer Gloria [facility] 0.9% IVP, Drug Active 2011 Medical Form: INJ, Center Dosing Weight 88.182, kg, Q12H, Start date: 07/07/12 21:00:00, Duration: 30 day, Stop date: 08/06/12 9:00:00 senna 8.6 mg, 1 PO No Longer Gloria [facility] tab, Route: Active 2011 Medical PO, Drug Center Form: TAB, Dosing Weight 88.182, kg, Q12H, Start date: 07/07/12 21:00:00, Duration: 30 day, Stop date: 08/06/12 9:00:00 docusate sodium 100 mg, 1 PO No Longer Gloria [place] 100 mg oral cap, Route: Active 2011 Medical capsule PO, Drug Center form: CAP, Q12H, Dosing Weight 88.182, kg, Start date: 07/07/12 21:00:00, Duration: 30 day, Stop date: 08/06/12 9:00:00 cefazolin (SCIP) 1 gm, Route: IVPB No Longer [place] IVPB, Drug Active 2011 Medical form: [place] PDR/INJ, ABXQ8H, Dosing Weight 88.182, kg, Start date: 07/07/12 20:30:00, Duration: 3 doses or times, Stop date: 07/08/12 12:30:00 Percocet 10/325 2 tab, Route: PO No Longer Dawson [place] oral tablet PO, Drug Active 2011 Medical Form: TAB, [place] Dosing Weight 88.182, kg, Q4H, PRN Pain, Start date: 07/07/12 20:03:00, Duration: 30 day, Stop date: 08/06/12 20:02:00 atorvastatin 10 10 mg, 1 tab, PO No Longer mg oral tablet PO, Daily, 30 Active 2011 Medical tab, Center Substitution Allowed, TAB amLODipine 5 mg, PO, PO No Longer Mike-Amanda [place] Daily, Active 2011 Medical Substitution Center Allowed cefazolin (SCIP) 1 gm, Route: IVPB No Longer [place] IVPB, Drug Active 2011 Medical form: [place] PDR/INJ, ABXQ8H, Dosing Weight 88.182, kg, Start date: 07/07/12 16:00:00, Duration: 3 doses or times, Stop date: 07/08/12 8:00:00 ondansetron 4 mg, 2 mL, IVP No Longer [place] Route: IVP, Active 2011 Medical Drug form: [place] INJ, ONCE, Dosing Weight 88.182, kg, PRN Nausea & Vomiting, Start date: 07/07/12 13:36:00 labetalol 5 mg, Route: IVP No Longer [facility] 07/[facility] IVP, Q5Min, Active 2011 Medical Dosing Weight Center 88.182, kg, PRN Elevated BP, Start date: 07/07/12 13:36:00, Duration: 5 doses or times, Stop date: Limited # of times hydrALAZINE 5 mg, 0.25 IVP No Longer [facility] 07/07[facility] mL, Route: Active 2011 Medical IVP, Drug Center form: INJ, Q5Min, Dosing Weight 88.182, kg, PRN Elevated BP, Start date: 07/07/12 13:36:00, Duration: 4 doses or times, Stop date: 07/08/12 0:00:00 flumazenil 0.2 mg, 2 mL, IVP No Longer [facility] 07/07[facility] Route: IVP, Active 2011 Medical Drug form: Center INJ, PRN, Dosing Weight 88.182, kg, PRN Benzodiazepin e Reversal, Initial dose, Start date: 07/07/12 13:36:00, Duration: 30 day, Stop date: 08/06/12 13:35:00 naloxone 0.04 mg, 0.1 IVP No Longer [facility] 07/07[facility] mL, Route: Active 2011 [facility] IVP, Drug Center form: INJ, Q2MIN, Dosing Weight 88.182, kg, PRN Narcotic Reversal, Start date: 07/07/12 13:36:00, Duration: 8 doses or times, Stop date: 07/08/12 0:00:00 hydromorphone 0.5 mg, IVP No Longer [facility] 07/07[facility] Route: IVP, Active 2011 Medical Q5Min, Dosing Center Weight 88.182, kg, PRN Pain Score 4-6, Start date: 07/07/12 13:36:00, Duration: 5 doses or times, Stop date: Limited # of times Saline Flush 5 ml, Route: IVP No Longer Gloria [facility] 0.9% IVP, Drug Active 2011 Medical Form: INJ, Center Dosing Weight 88.182, kg, PRN, PRN Line Flush, Start date: 07/07/12 13:30:00, Duration: 30 day, Stop date: 08/06/12 13:29:00 ondansetron 4 mg, 2 mL, IVP No Longer [place] Route: IVP, Active 2011 Medical Drug form: Center INJ, Q8H, Dosing Weight 88.182, kg, PRN Nausea & Vomiting, Start date: 07/07/12 13:30:00, Duration: 30 day, Stop date: 08/06/12 13:29:00 tramadol 50 mg, 1 tab, PO No Longer Fazakerly [facility] Route: PO, Active 2011 Medical Drug form: Center TAB, Q4H, Dosing Weight 88.182, kg, PRN Pain Score 1-3, Start date: 07/07/12 13:30:00, Duration: 30 day, Stop date: 08/06/12 13:29:00 morphine Sulfate 2 mg, 0.5 mL, IVP No Longer Fazakerly [facility] Route: IVP, Active 2011 Medical Drug form: Center INJ, Q1H, Dosing Weight 88.182, kg, PRN Pain Score 7-10, Start date: 07/07/12 13:30:00, Duration: 30 day, Stop date: 08/06/12 13:29:00 bisacodyl 10 mg, 1 CT No Longer Gloria [place] supp, Route: Active [address], Drug Center form: SUPP, Daily, Dosing Weight 88.182, kg, PRN Constipation, Start date: 07/07/12 13:30:00, Duration: 30 day, Stop date: 08/06/12 13:29:00 acetaminophen-hy 2 tab, Route: PO No Longer Napierkowski [place] drocodone 325 PO, Drug Active 2011 Medical mg-10 mg oral Form: TAB, Center tablet Dosing Weight 88.182, kg, Q4H, PRN Pain Score 7-10, Start date: 07/07/12 13:30:00, Duration: 30 day, Stop date: 08/06/12 13:29:00 acetaminophen 650 mg, 20.3 PO No Longer Fazakerly [place] mL, Route: Active 2011 Medical PO, Drug Center form: LIQ, Q4H, Dosing Weight 88.182, kg, PRN Pain/Fever, Start date: 07/07/12 13:30:00, Duration: 30 day, Stop date: 08/06/12 13:29:00 Sodium Chloride 1,000 mL, IV No Longer Fazakerly [place] 0.9% IV 1,000 mL Rate: 50 Active 2011 Medical ml/hr, Infuse Center over: 20 hr, Route: IV, kg, Total Volume: 1,000, Start date: 07/07/12 13:30:00, Duration: 30 day, Stop date: 08/06/12 13:29:00 cefazolin 2 gm, Route: IVPB No Longer [facility] IVPB, ONCE, Active 2011 Medical Dosing Weight Center 88.182, kg, Start date: 07/07/12 12:23:00, Duration: 1 doses or times, Stop date: 07/07/12 12:23:00 cefazolin 1 gm, [facility]: [facility], ONCE, Active 2011 Medical Dosing Weight Center 88.182, kg, Start date: 07/07/12 8:26:00, Duration: 1 doses or times, Stop date: 07/07/12 8:26:00 cefazolin 1 gm, Route: IVPB No Longer Morgan [facility] IVPB, Drug Active 2011 Medical form: Center PDR/INJ, ONCALL, Start date: 07/07/12 7:00:00, Duration: 1 day, Stop date: 07/08/12 6:59:00 Celebrex 200 mg 400 mg, 2 PO No Longer [place] oral capsule cap, PO, Active 2011 Daily, 30 Center cap, Substitution Allowed, CAP gabapentin 100 200 mg, 2 PO No Longer [facility] mg oral capsule cap, PO, TID, Active 2011 Medical 240 cap, Center Substitution Allowed atenolol 100 mg 100 mg, 1 PO No Longer Mike-Amanda [place] oral tablet tab, PO, Active 2011 Medical Daily, 30 Center tab, Substitution Allowed citalopram 10 mg 10 mg, 1 tab, PO No Longer Mike-Amanda [facility] oral tablet PO, Daily, 30 Active 2011 Medical tab, Center Substitution Allowed, TAB glimepiride 4 mg 4 mg, 1 tab, PO No Longer [place] oral tablet PO, BID, 30 Active 2011 Medical tab, Center Substitution Allowed, TAB hydrochlorothiaz 1 tab, PO, PO No Longer [facility] juno-losartan 25 Daily, 30 Active 2011 Medical mg-100 mg oral tab, Center tablet Substitution Allowed, Maintenance, TAB lisinopril 30 mg 30 mg, 1 tab, PO No Longer Mike-Amanda [facility] oral tablet PO, Daily, 30 Active 2011 Medical tab, Center Substitution Allowed, TAB aspirin 81 mg 81 mg, 1 tab, PO No Longer [facility] tablet, enteric PO, Daily, 0 Active 2011 Medical coated tab, Center Substitution Allowed, ECTAB NovoLog Mix Substitution No Longer [facility] 70/30 Allowed Active 2011 [facility] [place] Allergies, Adverse Reactions, Alerts Substance Category Reaction Severity Reaction Status Date Comments Source type Reported statins Assertion Drug Active [facility] HYDROcodone [facility]ion [facility] Assertion [facility] Active [facility] Immunizations Immunization Date Site Status Last Updated Comments Source Given pneumococcal Right completed [facility] 23-valent 8 deltoid for Adv vaccine Heart Failure,[facility] pneumococcal Right completed [facility] 23-valent 8 deltoid for Adv vaccine Heart Failure,[facility] pneumococcal Right completed [facility] 23-valent 8 deltoid for Adv vaccine Heart Failure,[facility] influenza virus Left completed [facility] vaccine, 8 deltoid for Adv inactivated Heart Failure,[facility] influenza virus Left completed [facility] vaccine, 8 deltoid for Adv inactivated Heart Failure,[facility] influenza virus Left completed [facility] vaccine, 8 deltoid for Adv inactivated Heart Failure,[facility] pneumococcal Not Given Yennifer [facility] 23-valent 2 [facility] vaccine [facility] influenza virus Left completed Derrick [facility] vaccine, 2 Deltoid Medical [facility] for Adv Heart Failure,[facility] influenza virus completed Derrick [facility] vaccine, 2 [facility] inactivated [facility] Results Order Name Results Value Reference Date Interpretation Comments Source Range SPECIAL Hgb A1C 5.8 % <=5.6 % 05/01 [facility] CHEMISTRY /2017 [facility] [place] Chest 1view Chest 1view EXAM: XR CHEST 1 VIEW 05/01 - [facility] DX DX /2017 - [facility] [place] DATE: 05/01/2018 9:09 AM CDT Read by: Kyaw Alarcon MD Dictated Date/time: 05/01/18 11:25 Electronically Signed by: Kyaw Alarcon MD 05/01/18 11:25 FINAL REPORT INDICATION: - dyspnea COMPARISON: 04/26/2018 TECHNIQUE: AP chest IMPRESSION: 1. Cardiomediastinal silhouette is enlarged, unchanged. Aortic atherosclerotic disease. Status post TAVR. 2. Prominent lung reticulations again seen with peribronchial cuffing suggestive of pulmonary edema. Superimposed infection cannot be excluded. Findings have slightly improved compared to previous study. 3. Small bilateral pleural effusions. 4. Osseous structures are stable. 5. Left chest wall single lead automatic implantable cardiac defibrillator is stable in position. CHEM PANEL eGFR 52 05/01 Result Comment: The eGFR is calculated using the CKD-EPI formula. In most young, healthy individuals the eGFR will be >90 mL/ min/1.73m2. The eGFR declines with age. An eGFR of 60-89 may be normal in [facility] mL/min/1. some populations, particularly the elderly, for whom the CKD-EPI formula has not been extensively validated. Use of the eGFR is not recommended in the following populations: [address] Individuals with unstable creatinine concentrations, including [...] the estimated BMI. CHEM PANEL Chloride Lvl 96 meq/L 95 - 109 05/[address] CHEM PANEL CO2 29 meq/L 24 - 32 05/[address] CHEM PANEL Sodium Lvl 136 meq/L 135 - 145 05/[address] CHEM PANEL Potassium 3.7 meq/L 3.5 - 5.1 05/01 [facility] [place] CHEM PANEL Creatinine 1.02 mg/dL 0.50 - 07 [facility] Lvl 1.40 /2017 [facility] [place] CHEM PANEL BUN 56 mg/dL 7 - 22 05/[address] CHEM PANEL Glucose Lvl 209 mg/dL 70 - 99 05/[address] CHEM PANEL Calcium Lvl 9.8 mg/dL 8.5 - 10.5 05/[address] CHEM PANEL AGAP 14.7 meq/L 10.0 - 05/01 [facility] 20.0 [facility] [place] CHEM PANEL Phosphorus 2.7 mg/dL 2.5 - 4.5 05/[address] CHEM PANEL Magnesium 1.8 mg/dL 1.8 - 2.4 05/01 [facility] [place] HEMATOLOGY Basophils 0.4 % 0.0 - 1.0 05/[address] HEMATOLOGY Segs-Bands # 0.7 K/CMM 1.5 - 8.1 05/[address] HEMATOLOGY Smudge Moderate None Seen 05/01 [facility] [address] [place] [address] *ABN* [place] (05/01/18 4:09 AM) HEMATOLOGY RBC Morph Normal 05/01 [facility] [address] [place] [address] (05/01/18 4:09 AM) [place] HEMATOLOGY Eosinophils 0.2 % 0.0 - 4.0 05/[address] HEMATOLOGY Plt Morph Normal 05/01 [facility] [address] [place] [address] (05/01/18 4:09 AM) [place] HEMATOLOGY Segs 6.2 % 45.0 - 05/01 [facility] 75.0 [facility] [place] HEMATOLOGY Lymphocytes 10.6 K/CMM 1.0 - 5.5 05/01 [facility] [place] HEMATOLOGY Monocytes # 0.1 K/CMM 0.0 - 0.8 05/[address] HEMATOLOGY Lymphocytes 92.7 % 20.0 - 07 [facility] 40.0 [facility] [place] HEMATOLOGY Monocytes 0.5 % 2.0 - 12.0 05/[address] HEMATOLOGY Platelet 71 K/CMM 133 - 450 05/[address] HEMATOLOGY MCHC 34.6 g/dL 32.0 - 07 [facility] 36.0 [facility] [place] HEMATOLOGY RDW 18.0 % 11.5 - 07 [facility] 14.5 /2018 [facility] [place] HEMATOLOGY WBC 11.5 K/CMM 3.7 - 10.4 05/01 [facility] [place] HEMATOLOGY RBC 2.83 M/CMM 4.20 - 05/01 [facility] 5.40 /2017 [facility] [place] HEMATOLOGY Hgb 9.6 g/dL 12.0 - 05/01 [facility] 16.0 [facility] [place] HEMATOLOGY Hct 27.7 % 36.0 - 05/01 [facility] 48.0 [facility] [place] HEMATOLOGY MPV 9.5 fL 7.4 - 10.4 05/01 [facility] [place] HEMATOLOGY MCV 97.7 fL 80.0 - 05/01 [facility] 98.0 [facility] [place] HEMATOLOGY MCH 33.8 pg 27.0 - 05/01 [facility] 31.0 [facility] [place] CHEM PANEL eGFR 49 04/30 Result Comment: The eGFR is calculated using the CKD-EPI formula. In most young, healthy individuals the eGFR will be >90 mL/ min/1.73m2. The eGFR declines with age. An eGFR of 60-89 may be normal in [facility] mL/min/1. some populations, particularly the elderly, for whom the CKD-EPI formula has not been extensively validated. Use of the eGFR is not recommended in the following populations: [address] Individuals with unstable creatinine concentrations, including [...] the estimated BMI. CHEM PANEL Chloride Lvl 96 meq/L 95 - 109 04/30 [facility] [place] CHEM PANEL CO2 30 meq/L 24 - 32 04/[address] [place] [address] CHEM PANEL Glucose Lvl 197 mg/dL 70 - 99 04/30 [facility]2017 [facility] [place] CHEM PANEL Potassium 4.2 meq/L 3.5 - 5.1 04/30 [facility] [place] CHEM PANEL Sodium Lvl 136 meq/L 135 - 145 04/[address] CHEM PANEL BUN 56 mg/dL 7 - 22 04/[address] CHEM PANEL Creatinine 1.07 mg/dL 0.50 - 04/30 [facility] Lvl 1.40 [facility] [place] CHEM PANEL Calcium Lvl 9.7 mg/dL 8.5 - 10.5 04/[address] CHEM PANEL AGAP 14.2 meq/L 10.0 - 04/30 [facility] 20.0 [facility] [place] CHEM PANEL Magnesium 1.9 mg/dL 1.8 - 2.4 04/30 [facility] Lvl /2017 [facility] [place] CHEM PANEL Phosphorus 2.4 mg/dL 2.5 - 4.5 04/[address] HEMATOLOGY Smudge Moderate None Seen 04/30 [facility] [address] [place], [place] [address]ABN* [place] (04/30/18 4:19 AM) HEMATOLOGY Lymphocytes 12.0 K/CMM 1.0 - 5.5 04/[address] HEMATOLOGY Basophils 0.5 % 0.0 - 1.0 04/[address] HEMATOLOGY Eosinophils 0.5 % 0.0 - 4.0 04/[address] HEMATOLOGY Segs-Bands # 1.0 K/CMM 1.5 - 8.1 04/[address] HEMATOLOGY Eosinophils 0.1 K/CMM 0.0 - 0.5 04/[address] HEMATOLOGY Monocytes # 0.1 K/CMM 0.0 - 0.8 04/[address] HEMATOLOGY Basophils # 0.1 K/CMM 0.0 - 0.2 04/[address] HEMATOLOGY RBC Morph Normal 04/[address] (04/30/18 4:19 AM) [place] HEMATOLOGY Segs 7.8 % 45.0 - 04/30 [facility] 75.0 [facility] [place] HEMATOLOGY Monocytes 1.1 % 2.0 - 12.0 04/[address] HEMATOLOGY Lymphocytes 90.1 % 20.0 - 04/30 [facility] 40.0 [facility] [place] HEMATOLOGY Plt Morph Normal 04/[address] (04/30/18 4:19 AM) [place] HEMATOLOGY Platelet 66 K/CMM 133 - 450 04/[address] HEMATOLOGY RDW 18.1 % 11.5 - 04/30 [facility] 14. [facility] [place] HEMATOLOGY MPV 9.4 fL 7.4 - 10.4 04/[address] HEMATOLOGY WBC 13.3 K/CMM 3.7 - 10.4 04/30 [facility] [place] HEMATOLOGY Hgb 9.7 g/dL 12.0 - 04/30 [place] 16.0 [facility] [place] HEMATOLOGY RBC 2.96 M/CMM 4.20 - 04/30 [place] 5.40 /2017 [facility] [place] HEMATOLOGY Hct 28.7 % 36.0 - 04/30 [place] 48.0 [facility] [place] HEMATOLOGY MCV 97.1 fL 80.0 - 04/30 [place] 98.0 [facility] [place] HEMATOLOGY MCH 32.7 pg 27.0 - 04/30 [place] 31.0 [facility] [place] HEMATOLOGY MCHC 33.7 g/dL 32.0 - 04/30 [place] 36.0 [facility] [place] BLOOD BANK ABO/Rh O NEG 04/29 [facility] [place] BLOOD BANK Antibody Negative 04/29 [facility] RESULTS Scr [facility] (04/29/18 10:19 AM) [place] BLOOD BANK RBC product Product available 04/29 [facility] (04/29/18 9:21 AM) [place] CHEM PANEL eGFR 48 04/29 Result Comment: The eGFR is calculated using the CKD-EPI formula. In most young, healthy individuals the eGFR will be >90 mL/ min/1.73m2. The eGFR declines with age. An eGFR of 60-89 may be normal in [facility] mL/min/1. some populations, particularly the elderly, for whom the CKD-EPI formula has not been extensively validated. Use of the eGFR is not recommended in the following populations: [address] Individuals with unstable creatinine concentrations, including [...] the estimated BMI. CHEM PANEL Calcium Lvl 9.8 mg/dL 8.5 - 10.5 04/29 [facility] [place] CHEM PANEL BUN 57 mg/dL 7 - 22 04/29 [facility] [place] CHEM PANEL Sodium Lvl 138 meq/L 135 - 145 04/29 [facility] [place] CHEM PANEL Creatinine 1.09 mg/dL 0.50 - 04/29 [facility] Lvl 1.40 /2017 [facility] [place] CHEM PANEL Glucose Lvl 145 mg/dL 70 - 99 04/[address] CHEM PANEL CO2 31 meq/L 24 - 32 04/[address] CHEM PANEL Chloride Lvl 95 meq/L 95 - 109 04/[address] CHEM PANEL Potassium 3.7 meq/L 3.5 - 5.1 04/29 [facility] [address] [place] [address] CHEM PANEL AGAP 15.7 meq/L 10.0 - 04/29 [facility] 20.0 [facility] [place] CHEM PANEL Phosphorus 3.0 mg/dL 2.5 - 4.5 04/[address] CHEM PANEL Magnesium 1.9 mg/dL 1.8 - 2.4 04/29 [facility] [address] [place] [address] HEMATOLOGY Macrocyte 1+ None Seen 04/29 [facility] [address] [place] [address] *ABN* Center (04/29/18 1:53 AM) HEMATOLOGY Smudge See Note 1 None Seen 04/29 Result [facility] Comment: Medical (04/29/18 1:53 AM) [facility] HEMATOLOGY Lymphocytes 8.5 K/CMM 1.0 - 5.5 04/[address] HEMATOLOGY Segs-Bands # 0.7 K/CMM 1.5 - 8.1 04/[address] HEMATOLOGY Eosinophils 0.2 K/CMM 0.0 - 0.5 04/[address] HEMATOLOGY Monocytes # 0.0 K/CMM 0.0 - 0.8 04/[address] HEMATOLOGY Plt Morph Normal 04/29 [facility] [address] [place] [address] (04/29/18 1:53 AM) [place] HEMATOLOGY Atypical 0.0 % <=0.0 % 04/29 [facility] [address] HEMATOLOGY Eosinophils 2.0 % 0.0 - 4.0 04/[address] HEMATOLOGY Monocytes 0.0 % 2.0 - 12.0 04/[address] HEMATOLOGY Blasts 8.0 % <=0.0 % 04/[address] HEMATOLOGY Bands 1.0 % 0.0 - 11.0 04/[address] HEMATOLOGY Segs 6.0 % 45.0 - 04/29 [facility] [place] 75.0 [facility] [place] HEMATOLOGY Lymphocytes 83.0 % 20.0 - 07 40.0 [facility] [place] HEMATOLOGY MCHC 34.6 g/dL 32.0 - 04/29 [facility] 36.0 [facility] [place] HEMATOLOGY MCV 101.0 fL 80.0 - 04/29 [facility] 98.0 [facility] [place] HEMATOLOGY Hct 20.8 % 36.0 - 04/29 [facility] 48.0 [facility] [place] HEMATOLOGY MCH 35.0 pg 27.0 - 04/29 [facility] 31.0 [facility] [place] HEMATOLOGY RDW 17.2 % 11.5 - 07 [facility] 14.5 [facility] [place] HEMATOLOGY MPV 9.8 fL 7.4 - 10.4 04/[address] HEMATOLOGY Platelet 64 K/CMM 133 - 450 04/29 [facility] [address] [place] [address] HEMATOLOGY Hgb 7.2 g/dL 12.0 - 04/29 [facility] 16.0 [facility] [place] HEMATOLOGY WBC 10.2 K/CMM 3.7 - 10.4 04/29 [facility] [address] [place] [address] HEMATOLOGY RBC 2.06 M/CMM 4.20 - 04/29 [facility] 5.40 [facility] [place] CHEM PANEL Total 6.8 g/dL 6.4 - 8.4 04/28 [facility] [place] CHEM PANEL Albumin Lvl 2.7 g/dL 3.5 - 5.0 04/[address] CHEM PANEL Bili Total 0.5 mg/dL 0.2 - 1.3 04/[address] CHEM PANEL Alk Phos 71 unit/L 39 - 136 04/[address] CHEM PANEL AST 16 unit/L 0 - 37 04/[address] CHEM PANEL ALT 11 unit/L 0 - [address] CHEM PANEL A/G Ratio 0.7 0.7 - 1.6 04/[address] CHEM PANEL Globulin 4.1 g/dL 2.7 - 4.2 04/[address] CHEM PANEL B/C Ratio 46 6 - 25 04/[address] HEMATOLOGY Eosinophils 0.3 K/CMM 0.0 - 0.5 04/28 [facility] # [facility] [place] HEMATOLOGY Bands 1.0 % 0.0 - 11.0 04/[address] HEMATOLOGY Blasts 1.0 % <=0.0 % 04/[address] HEMATOLOGY Anisocyte 1+ None Seen 04/[address]* [place] (04/28/18 2:32 AM) HEMATOLOGY Atypical 0.0 % <=0.0 % 04/[address] HEMATOLOGY Macrocyte 1+ None Seen 04/[address] (04/28/18 2:32 AM) CHEM PANEL B/C Ratio 41 6 - 25 04/[address] CHEM PANEL Globulin 4.2 g/dL 2.7 - 4.2 04/[address] CHEM PANEL A/G Ratio 0.7 0.7 - 1.6 04/[address] CHEM PANEL Bili Total 0.5 mg/dL 0.2 - 1.3 04/[address] CHEM PANEL Albumin Lvl 2.9 g/dL 3.5 - 5.0 04/[address] CHEM PANEL Total 7.1 g/dL 6.4 - 8.4 04/[address] CHEM PANEL Alk Phos 79 unit/L 39 - 136 04/[address] CHEM PANEL ALT 13 unit/L 0 - 65 04/[address] CHEM PANEL AST 17 unit/L 0 - 37 04/[address] HEMATOLOGY Macrocyte 1+ None Seen 04/[address]* [place] (04/27/18 3:21 AM) HEMATOLOGY Atypical 2.0 % <=0.0 % 04/[address] HEMATOLOGY Blasts 1.0 % <=0.0 % 04/[address] HEMATOLOGY Anisocyte 1+ None Seen 04/[address] (04/27/18 3:21 AM) HEMATOLOGY Bands 0.0 % 0.0 - 11.0 04/[address] ANEMIA Vitamin B12 831 pg/mL 254 - 1320 04/27 [facility] STUDY l /[address] [place] [address] ANEMIA Iron 53 ug/dl 30 - 160 04/[address] ANEMIA % Satur Fe 25 % 12 - 57 04/27 [facility] STUDY /2017 [facility] [place] ANEMIA UIBC 158 ug/dl 110 - 370 04/27 [facility] STUDY /2017 [facility] [place] ANEMIA TIBC 211 ug/dl 228 - 428 04/27 [facility] /2017 [facility] [place] ANEMIA Folate Lvl 17.0 ng/mL >=3.0 04/27 [facility] STUDY ng/mL /2017 [facility] [place] ANEMIA Ferritin Lvl 362 ng/mL 5 - 204 04/27 [facility] /[address] [place] [address] Chest 1view Chest 1view EXAM: XR CHEST 1 VIEW 04/26 - [facility] DX DX /2017 - [facility] This report was dictated by a Enterprise Services Manager/Fellow. I have personally reviewed the images as Center well as the Resident's interpretation and agree with the findings. DATE: 04/26/2018 10:30 PM CDT Read by: Tigre Lindquist MD Resident: Tigre Lindquist MD Dictated Date/time: 04/27/18 09:12 Electronically Signed by: Kyaw Alarcon MD 04/27/18 10:51 FINAL REPORT INDICATION: - pain COMPARISON: Chest 2 views 04/25/2018 TECHNIQUE: AP chest FINDINGS: Lines, tubes and hardware: Single lead left pacemaker device is unchanged in position. Postsurgical changes of TAVR are again noted. Lungs and pleura: Low lung volumes with diffuse bilateral airspace opacities are again noted which may represent edema, infection or chronic interstitial lung disease. Heart and mediastinum: The cardiomediastinal silhouette is stable. Bones: The osseous structures are unchanged. IMPRESSION: No significant change since prior chest radiograph. URINE AND UA <=1.0 0.1 - 1.0 04/26 [facility] STOOL Urobilinogen mg/dL /2017 [facility] [place] URINE AND UA Protein Negative Negative 04/26 [facility] STOOL mg/dL mg/dL /[address] [place] [address] URINE AND UA Glucose Negative Negative 04/26 [facility] STOOL mg/dL mg/dL /2017 [facility] [place] URINE AND UA Spec Grav 1.008 <=1.030 04/26 [facility] /[address] [place] [address] URINE AND UA pH 5.5 5.0 - 8.0 04/26 [facility] /[address] [place] [address] URINE AND UA Turbidity Clear Clear 04/26 [facility] /[address] [place] [address] (04/26/18 3:19 PM) [place] URINE AND UA Color Yellow Yellow 04/26 [facility] *NA* Center (04/26/18 3:19 PM) URINE AND UA Nitrite Negative Negative 04/26 [facility] (04/26/18 3:19 PM) [place] URINE AND UA Leuk Est Negative Negative 04/26 [facility] (04/26/18 3:19 PM) [place] URINE AND UA Bili Negative Negative 04/26 [facility] [address] [place] [address] *NA* [place] (04/26/18 3:19 PM) URINE AND UA Blood Negative Negative 04/26 [facility] STOOL [facility] (04/26/18 3:19 PM) [place] URINE AND UA Ketones Negative Negative 04/26 [facility] mg/dL mg/dL /2017 [facility] [place] URINE AND UA Sq Epi None Seen 04/[address] URINE AND UA Mucus Few /LPF None Seen 04/26 [facility] STOOL /LPF /[address] [place] [address] URINE AND UA Hyal Cast 11 /LPF 0 - 2 04/[address] URINE AND UA WBC null 0 - 5 04/26 [facility] STOOL /[address] [place] [address] URINE AND UA RBC null 0 - 2 04/26 [facility] STOOL /[address] [place] [address] CARDIAC Total CK 9 unit/L 12 - 191 04/26 [facility] ENZYMES /[address] [place] [address] CARDIAC Troponin-T null 0.000 - 04/26 [place] [facility] 0.100 /2017 [facility] [place] CARDIAC Troponin-I null 0.00 - 04/26 [place] ENZ[facility]ES 0.40 /2017 [facility] [place] CARDIAC Total CK 13 unit/L 12 - 191 04/26 [facility] ENZYMES /[address] [place] [address] CARDIAC Troponin-T null 0.000 - 04/26 [place] ENZYMES 0.100 /2017 [facility] [place] CARDIAC Troponin-I null 0.00 - 04/26 [place] ENZYMES 0.40 /2018 [facility] [place] CHEM PANEL B/C Ratio 37 6 - 25 04/[address] CHEM PANEL AST 11 unit/L 0 - 37 04/[address] CHEM PANEL ALT 9 unit/L 0 - 65 04/[address] CHEM PANEL Total 7.1 g/dL 6.4 - 8.4 04/26 [facility] Protein [address] CHEM PANEL Albumin Lvl 2.9 g/dL 3.5 - 5.0 04/[address] CHEM PANEL A/G Ratio 0.7 0.7 - 1.6 04/[address] CHEM PANEL Globulin 4.2 g/dL 2.7 - 4.2 04/[address] CHEM PANEL Bili Total 0.9 mg/dL 0.2 - 1.3 04/[address] CHEM PANEL Alk Phos 72 unit/L 39 - 136 04/[address] HEMATOLOGY Myelocytes 1.0 % <=0.0 % 04/[address] CARDIAC Troponin-I null 0.00 - 04/26 [facility] ENZYMES 0.40 /2017 [facility] [place] CARDIAC Total CK 18 unit/L 12 - 191 04/26 [facility] ENZYMES [address] CARDIAC BNP 710 pg/mL <=100 04/26 [facility] ENZYMES pg/mL /2017 [facility] CHEM PANEL Lipase Lvl 96 unit/L 73 - 393 04/[address] CHEM PANEL Amylase Lvl 49 unit/L 25 - 115 04/[address] HEMATOLOGY INR 1.10 0.85 - 04/26 [facility] 1.17 [facility] HEMATOLOGY PTT 36.5 s 22.9 - 04/26 [facility] 35.8 [facility] HEMATOLOGY PT 14.2 s 12.0 - 04/26 [facility] 14.7 [facility] HEMATOLOGY Anisocyte 1+ None Seen 04/[address] [place] (04/25/18 11:02 PM) Abdomen AP Abdomen AP EXAM: XR ABDOMEN 1 VIEW 04/25 - [facility] DX DX /2017 - [facility] DATE: 04/25/2018 11:05 PM CDT Read by: Arturo Rene MD Dictated Date/time: 04/26/18 10:33 Electronically Signed by: Arturo Rene MD 04/26/18 10:36 FINAL REPORT INDICATION: Abdominal pain. History of lymphoma. ADDITIONAL INFORMATION: None. COMPARISON: PET CT exam of 04/02/2018. TECHNIQUE: Supine AP views of the abdomen. FINDINGS: Lines and tubes: The patient is status post TAVR. A single intracardiac pacing lead is seen with its tip over the right ventricle. Electrocardiogram leads are present. Lower thorax: Unremarkable where visualized. Bowel: Nonobstructive bowel gas pattern. No pneumatosis is seen. Solid organs: No abnormal mass or organomegaly seen. Atherosclerotic calcifications are seen in the splenic artery. Calcified splenic granulomas are visualized. Bones: Patient is status post posterior fusion of L4-L5 with pedicle bolts and vertically oriented rods. The patient is status post laminectomies at these levels as well. There is mild dextroscoliosis o f the lumbar spine are present with advanced degenerative disc disease at L3-L4 with milder degenerative disc disease of the remainder of the thoracolumbar spine. IMPRESSION: 1. Bowel gas pattern is nonobstructive. No free air is seen. 2. No acute intra-abdominal abnormalities are noted. 3. Degenerative disc disease of the dextroscoliosis of the and postoperative changes within the lumbar spine as described above. 4. Support devices as above. Chest 2 Chest 2 EXAM: XR CHEST 2 VIEWS 04/25 [facility] views DX views DX /2018 [facility] DATE: 04/25/2018 8:26 PM CDT Read by: Davon Florez MD Dictated Date/time: 04/26/18 09:04 Electronically Signed by: Davon Florez 04/26/18 12:05 FINAL REPORT INDICATION: Heart failure - chf COMPARISON: 01/29/2018 TECHNIQUE: PA and lateral chest radiographs IMPRESSION: 1. Stable left implantable cardiac defibrillator. Stable cardiac silhouette status post TAVR. 2. The patient has known history of lymphoma with mediastinal and hilar lymphadenopathy as better seen on recent PET/CT. 3. Diffuse airspace opacities could be the result of edema or infection, on a background of possible baseline interstitial lung disease. 4. Small bilateral pleural effusions may be present. 5. No pneumothorax given the limitation of a semiupright exam. PET CT PET CT EXAM: GA PET CT Skull Base to Mid Thigh 04/02 [facility] Lymphoma Lymphoma /2018 - [place] restaging restaging This report was dictated by a Enterprise Services Manager/ Fellow. I have personally reviewed the images [...] Magnesium 2.4 mg/dL 1.8 - 2.4 02/06 [facility] CHEM PANEL eGFR 45 02/06 Result Comment: The eGFR is calculated using the CKD-EPI formula. In most young, healthy individuals the eGFR will be >90 mL/ min/1.73m2. The eGFR declines with age. An eGFR of 60-89 may be normal in [facility] mL/min/1.7 some populations, particularly the elderly, for whom the CKD-EPI formula has not been extensively validated. Use of the eGFR is not recommended in the following populations: [address] Individuals with unstable creatinine concentrations, including [...] PANEL Creatinine 1.16 mg/dL 0.50 - 02/06 [facility] 1.40 [facility] CHEM PANEL Glucose Lvl 63 mg/dL 70 - 99 02/[address] CHEM PANEL BUN 50 mg/dL 7 - 22 02/[address] CHEM PANEL Sodium Lvl 139 meq/L 135 - 145 02/[address] CHEM PANEL Potassium 3.9 meq/L 3.5 - 5.1 02/06 [facility] [address] [place] [address] CHEM PANEL Chloride Lvl 104 meq/L 95 - 109 02/[address] CHEM PANEL CO2 29 meq/L 24 - 32 02/[address] CHEM PANEL AGAP 9.9 meq/L 10.0 - 02/06 [facility] 20.0 [facility] CHEM PANEL Calcium Lvl 8.6 mg/dL 8.5 - 10.5 02/[address] CHEM PANEL Phosphorus 2.6 mg/dL 2.5 - 4.5 02/[address] CHEM PANEL Uric Acid 0.7 mg/dL 2.5 - 7.0 02/[address] HEMATOLOGY Eosinophils 0.2 % 0.0 - 4.0 02/06 [facility] HEMATOLOGY Lymphocytes 91.1 % 20.0 - 02/06 40.0 [facility] HEMATOLOGY Monocytes 0.8 % 2.0 - 12.0 02/06 [facility] HEMATOLOGY Segs 7.8 % 45.0 - 02/06 [place] 75.0 [facility] HEMATOLOGY Smudge Moderate None Seen 02/06 [facility]* [place] (02/06/18 3:30 AM) HEMATOLOGY Macrocyte 1+ None Seen 02/06 [facility] [place] (02/06/18 3:30 AM) HEMATOLOGY Segs-Bands # 1.6 K/CMM 1.5 - 8.1 02/[address] [place] [address] HEMATOLOGY Lymphocytes 18.8 K/CMM 1.0 - 5.5 02/06 [facility] # [facility] HEMATOLOGY Basophils 0.1 % 0.0 - 1.0 02/[address] [place] [address] HEMATOLOGY Monocytes # 0.2 K/CMM 0.0 - 0.8 02/[address] [place] [address] HEMATOLOGY Anisocyte 1+ None Seen 02/06 [facility] (02/06/18 3:30 AM) HEMATOLOGY Platelet 57 K/CMM 133 - 450 02/[address] [place] [address] HEMATOLOGY WBC 20.6 K/CMM 3.7 - 10.4 02/[address] [place] [address] HEMATOLOGY RBC 2.48 M/CMM 4.20 - 02/06 5.40 [facility] HEMATOLOGY Hct 25.2 % 36.0 - 02/06 [place] 48.0 [facility] HEMATOLOGY Hgb 8.0 g/dL 12.0 - 02/06 [place] 16.0 [facility] HEMATOLOGY MPV 9.5 fL 7.4 - 10.4 02/06 [facility] HEMATOLOGY MCHC 31.7 g/dL 32.0 - 02/06 [place] 36.0 [facility] HEMATOLOGY MCH 32.3 pg 27.0 - 02/06 [facility] 31.0 [facility] HEMATOLOGY MCV 101.8 fL 80.0 - 02/06 98.0 [facility] HEMATOLOGY RDW 22.4 % 11.5 - 02/06 [facility] 14.5 /2018 [facility] HEMATOLOGY INR 1.03 0.85 - 02/06 [place] 1.17 [facility] HEMATOLOGY PTT 32.2 s 22.9 - 02/06 [facility] 35.8 /2017 [facility] HEMATOLOGY PT 13.5 s 12.0 - 02/06 [facility] 14.7 [facility] CHEM PANEL Magnesium 2.1 mg/dL 1.8 - 2.4 02/05 [facility] Lvl [facility] CHEM PANEL Uric Acid 0.3 mg/dL 2.5 - 7.0 02/05 [facility] CHEM PANEL eGFR 42 02/05 Result Comment: The eGFR is calculated using the CKD-EPI formula. In most young, healthy individuals the eGFR will be >90 mL/ min/1.73m2. The eGFR declines with age. An eGFR of 60-89 may be normal in [facility] mL/min/1. some populations, particularly the elderly, for whom the CKD-EPI formula has not been extensively validated. Use of the eGFR is not recommended in the following populations: [address] Individuals with unstable creatinine concentrations, including [...] Lvl 133 meq/L 135 - 145 02/05 [facility] CHEM PANEL Creatinine 1.23 mg/dL 0.50 - 02/05 [facility] Lvl 1.40 /2017 [facility] CHEM PANEL Glucose Lvl 424 mg/dL 70 - 99 02/05 Result Comment: [facility] Result(s) called to Shannon Murdock at 02/05/2018 06:18 by ET. Read back OK. CHEM PANEL BUN 54 mg/dL 7 - 22 02/05 [facility] CHEM PANEL Calcium Lvl 8.9 mg/dL 8.5 - 10.5 02/05 [facility] CHEM PANEL AGAP 13.9 meq/L 10.0 - 02/05 [facility] 20.0 [facility] CHEM PANEL CO2 27 meq/L 24 - 32 02/05 [facility] CHEM PANEL Chloride Lvl 97 meq/L 95 - 109 02/05 [facility] CHEM PANEL Potassium 4.9 meq/L 3.5 - 5.1 02/05 [facility] Lvl [facility] CHEM PANEL Phosphorus 2.7 mg/dL 2.5 - 4.5 02/05 [facility] HEMATOLOGY Hgb 8.6 g/dL 12.0 - 02/05 16.0 [facility] HEMATOLOGY RBC 2.64 M/CMM 4.20 - 02/05 [place] 5.40 /2017 [facility] HEMATOLOGY WBC 19.7 K/CMM 3.7 - 10.4 02/05 [facility] HEMATOLOGY Hct 26.9 % 36.0 - 02/05 [facility] 48.0 [facility] HEMATOLOGY MCV 101.9 fL 80.0 - 02/05 [facility] 98.0 [facility] HEMATOLOGY MCH 32.5 pg 27.0 - 02/05 [facility] 31.0 [facility] HEMATOLOGY Platelet 59 K/CMM 133 - 450 02/05 2017 [facility] HEMATOLOGY RDW 22.7 % 11.5 - 02/05 [facility] 14.5 [facility] HEMATOLOGY MCHC 31.9 g/dL 32.0 - 02/05 [facility] 36.0 [facility] HEMATOLOGY MPV 9.9 fL 7.4 - 10.4 02/05 2017 [facility] HEMATOLOGY PTT 33.8 s 22.9 - 02/05 [facility] 35.8 [facility] HEMATOLOGY PT 14.1 s 12.0 - 02/05 [facility] 14.7 [facility] HEMATOLOGY INR 1.09 0.85 - 02/05 1.17 [facility] HEMATOLOGY Smudge Moderate None Seen 02/05 [facility] *ABN* Center (02/05/18 5:02 AM) HEMATOLOGY Segs-Bands # 1.7 K/CMM 1.5 - 8.1 02/[address] [place] [address] HEMATOLOGY Lymphocytes 90.0 % 20.0 - 02/05 [facility] 40.0 2018 [facility] HEMATOLOGY Plt Morph Normal 02/05 [facility] (02/05/18 5:02 AM) [place] HEMATOLOGY Monocytes 1.0 % 2.0 - 12.0 02/[address] [place] [address] HEMATOLOGY Segs 9.0 % 45.0 - 02/05 [facility] 75.0 [facility] HEMATOLOGY Basophils 0.0 % 0.0 - 1.0 02/05 [facility] [address] [place] [address] HEMATOLOGY Lymphocytes 17.9 K/CMM 1.0 - 5.5 02/05 [facility] # /2017 [facility] HEMATOLOGY Macrocyte 1+ None Seen 02/05 [facility] [address] [place] [address]* [place] (02/05/18 5:02 AM) HEMATOLOGY Monocytes # 0.1 K/CMM 0.0 - 0.8 02/[address] HEMATOLOGY Anisocyte 1+ None Seen 02/05 [facility] (02/05/18 5:02 AM) CHEM PANEL Uric Acid 4.0 mg/dL 2.5 - 7.0 02/[address] CHEM PANEL Phosphorus 2.3 mg/dL 2.5 - 4.5 02/[address] CHEM PANEL eGFR 58 02/04 Result Comment: The eGFR is calculated using the CKD-EPI formula. In most young, healthy individuals the eGFR will be >90 mL/ min/1.73m2. The eGFR declines with age. An eGFR of 60-89 may be normal in [facility] mL/min/1. some populations, particularly the elderly, for whom the CKD-EPI formula has not been extensively validated. Use of the eGFR is not recommended in the following populations: [address] Individuals with unstable creatinine concentrations, including [...] Lvl 8.8 mg/dL 8.5 - 10.5 02/04 [facility] [address] [place] [address] CHEM PANEL Glucose Lvl 110 mg/dL 70 - 99 02/[address] CHEM PANEL Sodium Lvl 135 meq/L 135 - 145 02/[address] CHEM PANEL Potassium 4.2 meq/L 3.5 - 5.1 02/04 [facility] Lvl [facility] CHEM PANEL Chloride Lvl 96 meq/L 95 - 109 02/[address] CHEM PANEL CO2 29 meq/L 24 - 32 02/04 [facility] CHEM PANEL AGAP 14.2 meq/L 10.0 - 02/04 20.0 [facility] CHEM PANEL BUN 54 mg/dL 7 - 22 02/04 [facility] CHEM PANEL Creatinine 0.94 mg/dL 0.50 - 02/04 [facility] CHEM PANEL Uric Acid 4.2 mg/dL 2.5 - 7.0 02/04 [facility] CHEM PANEL Magnesium 2.1 mg/dL 1.8 - 2.4 02/04 [facility]2017 [facility] HEMATOLOGY PT 13.8 s 12.0 - 02/04 [facility] 14.7 [facility] HEMATOLOGY PTT 34.7 s 22.9 - 02/04 [facility] 35.8 [facility] HEMATOLOGY INR 1.06 0.85 - 02/04 [facility] 1.17 [facility] HEMATOLOGY RBC 2.80 M/CMM 4.20 - 02/04 [facility] 5.40 [facility] HEMATOLOGY Hgb 9.1 g/dL 12.0 - 02/04 [facility] 16.0 [facility] HEMATOLOGY Hct 27.6 % 36.0 - 02/04 [facility] 48.0 [facility] HEMATOLOGY WBC 28.3 K/CMM 3.7 - 10.4 02/04 [facility] HEMATOLOGY MCHC 32.8 g/dL 32.0 - 02/04 [facility] 36.0 /2018 [facility] HEMATOLOGY RDW 20.8 % 11.5 - 02/04 [facility] 14.5 2018 [facility] HEMATOLOGY Platelet 69 K/CMM 133 - 450 02/[address] [place] [address] HEMATOLOGY MCV 98.5 fL 80.0 - 02/04 [facility] 98.0 [facility] HEMATOLOGY MCH 32.3 pg 27.0 - 02/04 31.0 2018 [facility] HEMATOLOGY MPV 9.7 fL 7.4 - 10.4 02/[address] HEMATOLOGY Eosinophils 0.2 % 0.0 - 4.0 02/[address] HEMATOLOGY Basophils 0.1 % 0.0 - 1.0 02/[address] HEMATOLOGY Segs-Bands # 1.8 K/CMM 1.5 - 8.1 02/[address] HEMATOLOGY Monocytes # 0.3 K/CMM 0.0 - 0.8 02/[address] HEMATOLOGY Eosinophils 0.1 K/CMM 0.0 - 0.5 02/[address] HEMATOLOGY Lymphocytes 26.1 K/CMM 1.0 - 5.5 02/[address] HEMATOLOGY Lymphocytes 92.5 % 20.0 - 02/04 [facility] 40.0 [facility] HEMATOLOGY Monocytes 0.9 % 2.0 - 12.0 02/[address] HEMATOLOGY Segs 6.3 % 45.0 - 02/04 [facility] 75.0 [facility] HEMATOLOGY Anisocyte 1+ None Seen 02/03 [address] [place] (02/03/18 4:54 AM) HEMATOLOGY Eosinophils 0.1 % 0.0 - 4.0 02/[address] HEMATOLOGY Macrocyte 1+ None Seen 02/03 [facility] [address] [place], [place] [address]ABN* [place] (02/03/18 4:54 AM) HEMATOLOGY Plt Morph Normal 02/03 [facility] [address] [place] [address] (02/03/18 4:54 AM) [place] PARATHYROID Ca Ion WB 1.17 1.05 - 02/03 [facility] PROFILE mMol/L 1. [facility] PARATHYROID Ca Norm WB 1.18 1.05 - 02/03 [facility] PROFILE mMol/L . [facility] Abdomen Abdomen EXAM: VIR 02/02 - [facility] biopsy biopsy /2017 - Medical needle w needle w DATE: 02/02/2018 2:19 PM CDT Center guidance CT guidance CT PROCEDURE(S) PERFORMED: Left enlarged psoas muscle biopsy Read by: Freya Reid MD Dictated Date/time: 02/02/18 15:05 INDICATION: 82 years old Female with history of CLL and retroperitoneal lymphadenopathy including large infiltrated left psoas muscle. Electronically Signed by: Freya Reid MD 02/02/18 15 :07 FINAL REPORT FACULTY: Freya Reid MD RESIDENT/FELLOW/CORPORATE TRAVEL CONSULTANT: None SUPERVISION: Level 1 Direct supervision: The [...] procedure. HEMATOLOGY Hypochrom 1+ None Seen 02/[address] (02/02/18 3:32 AM) Center HEMATOLOGY Polychrom Moderate None Seen 02/[address] *ABN* [place] (02/02/18 3:32 AM) HEMATOLOGY Smudge Moderate None Seen 02/02 [address] [place] (02/02/18 3:32 AM) CHEM PANEL Albumin Lvl 2.7 g/dL 3.5 - 5.0 02/[address] CHEM PANEL Globulin 3.7 g/dL 2.7 - 4.2 02/[address] CHEM PANEL ALT 17 unit/L 0 - 65 02/[address] CHEM PANEL A/G Ratio 0.7 0.7 - 1.6 02/[address] CHEM PANEL Alk Phos 66 unit/L 39 - 136 02/[address] CHEM PANEL AST 21 unit/L 0 - 37 02/[address] CHEM PANEL Bili Total 0.5 mg/dL 0.2 - 1.3 02/[address] CHEM PANEL Total 6.4 g/dL 6.4 - 8.4 02/01 [facility] [address] CHEM PANEL B/C Ratio 75 6 - 25 02/[address] HEMATOLOGY Atypical 0.0 % <=0.0 % 02/[address] HEMATOLOGY Microcyte 1+ None Seen 02/[address] *ABN* Center (02/01/18 3:32 AM) HEMATOLOGY Blasts 1.0 % <=0.0 % 02/[address] HEMATOLOGY Bands 0.0 % 0.0 - 11.0 02/[address] HEMATOLOGY Tot Cell Ct 200 01/[address] HEMATOLOGY Bands 0.0 % 0.0 - 11.0 01/[address] HEMATOLOGY Plt Morph Normal 01/[address] (01/29/18 5:39 AM) [place] HEMATOLOGY RBC Morph Normal 01/[address] (01/29/18 5:39 AM) [place] HEMATOLOGY Atypical 0.0 % <=0.0 % 01/[address] Chest 1view Chest 1view EXAM: XR CHEST 1 VIEW 01/29 - [facility] DX DX - [facility] DATE: 01/29/2018 Read by: Jackie Marcum MD Dictated Date/time: 01/29/18 10:52 Electronically Signed by: Jackie Marcum MD 01/29/18 10:53 FINAL REPORT INDICATION: - dyspnea . Comparison is made with yesterday FINDINGS: Cardiomediastinal silhouette and life-support lines are unchanged. There is interstitial pulmonary edema. IMPRESSION: No significant interval change when compared to prior radiograph. CHEM PANEL ALT 7 unit/L 0 - 65 01/[address] CHEM PANEL AST 21 unit/L 0 - 37 01/[address] CHEM PANEL Globulin 4.2 g/dL 2.7 - 4.2 01/[address] CHEM PANEL B/C Ratio 31 6 - 25 01/[address] CHEM PANEL A/G Ratio 0.6 0.7 - 1.6 01/[address] CHEM PANEL Bili Total 0.7 mg/dL 0.2 - 1.3 01/[address] CHEM PANEL Total 6.9 g/dL 6.4 - 8.4 01/[address] CHEM PANEL Albumin Lvl 2.7 g/dL 3.5 - 5.0 01/[address] CHEM PANEL Alk Phos 67 unit/L 39 - 136 01/[address] URINE AND UA Ketones Negative Negative 01/28 [facility] STOOL mg/dL mg/dL [facility] CHEM PANEL B/C Ratio 33 6 - 25 01/[address] CHEM PANEL Total 7.2 g/dL 6.4 - 8.4 01/28 [facility] Protein [facility] CHEM PANEL AST 23 unit/L 0 - 37 01/[address] CHEM PANEL Alk Phos 75 unit/L 39 - 136 01/[address] CHEM PANEL Bili Total 0.8 mg/dL 0.2 - 1.3 01/[address] CHEM PANEL Albumin Lvl 2.8 g/dL 3.5 - 5.0 01/[address] CHEM PANEL Globulin 4.4 g/dL 2.7 - 4.2 01/[address] CHEM PANEL A/G Ratio 0.6 0.7 - 1.6 01/28 [facility] [address] [place] [address] CHEM PANEL ALT 10 unit/L 0 - 65 01/[address] ANEMIA Ferritin Lvl 180 ng/mL 5 - 204 01/28 [facility] ANEMIA Vitamin B12 239 pg/mL 254 - 1320 01/28 [facility] ANEMIA % Satur Fe 16 % 12 - [address] [facility] ANEMIA UIBC 264 ug/dl 110 - 370 01/28 [facility] ANEMIA Iron 50 ug/dl 30 - 160 01/[address] ANEMIA TIBC 314 ug/dl 228 - 428 01/28 [facility] [address] [place] [address] ANEMIA RBC Folate 1501 ng/mL 280 - 791 01/28 [facility] [address] [place] [address] ANEMIA Folate Lvl 16.0 ng/mL >=3.0 01/28 [facility] ng/mL [address] [place] [address] CHEM PANEL Ketone 0.24 <=0.27 01/28 [facility] Quantitative mmol/L mmol/L [facility] CHEM PANEL Lactic Acid 1.3 mMol/L 0.5 - 2.2 01/28 [facility] HEMATOLOGY Retic Auto 5.0 % 0.5 - 1.5 01/[address] HEMATOLOGY Tot Cell Ct 100 01/[address] HEMATOLOGY Atypical 2.0 % <=0.0 % 01/28 [facility] Lymphs [facility] HEMATOLOGY Bands 0.0 % 0.0 - 11.0 01/[address] Chest 1view Chest 1view EXAM: XR CHEST 1 VIEW 01/28 - [facility] DX DX /2017 - [facility] DATE: 01/28/2018 8:48 AM CDT Read by: [...] stable. CARDIAC BNP 1002 pg/mL <=100 01/27 [facility] ENZYMES pg/mL /2017 [facility] IMMUNOLOGY Hep Bs Ag Negative Negative 01/27 [facility] [place] (01/27/18 2:02 PM) IMMUNOLOGY Hep B Core Negative Negative 01/27 [facility] IgM [facility] (01/27/18 2:02 PM) IMMUNOLOGY Hep C Ab Negative 01/27 [facility] (01/27/18 2:02 PM) IMMUNOLOGY Hep A IgM Negative Negative 01/27 [facility] (01/27/18 2:02 PM) HEMATOLOGY Basophils # 0.1 K/CMM 0.0 - 0.2 01/27 [facility] [address] [place] [address] Chest 1 v Chest 1 v EXAM: XR CHEST 1 VIEW 01/27 - [facility] for for - Medical Placement Placement DX This report was dictated by a Enterprise Services Manager/Fellow. I have personally reviewed the images as [...] BLOOD BANK RBC product Modification Required 01/27 [facility] RESULTS /2017 Medical (01/26/18 8:26 PM) [place] BLOOD BANK ABO/Rh O NEG 01/26 [facility] RESULTS /2017 [facility] BLOOD BANK Antibody Negative 01/26 [facility] RESULTS Scrn [facility] (01/26/18 4:49 PM) [place] CARDIAC Troponin-I null 0.00 - 01/26 [facility] ENZYMES 0.40 /2017 [facility] HEMATOLOGY Blasts 2.0 % <=0.0 % 01/26 Result [place] /2017 Comment: Medical Patient has Center history of CLL. HEMATOLOGY Tot Cell Ct 200 01/26 [place] /2017 [facility] Center Chest 2 Chest 2 EXAM: XR CHEST 2 VIEWS 01/26 - [facility] views DX views DX /2017 - Medical This report was dictated by a Enterprise Services Manager/Fellow. I have personally reviewed the images as [...] THIGH: 01/26/2018 4:41 PM CDT 01/21 - [facility] Tumor imaging[facility] /2018 - [facility] imaging-[facility] CLINICAL INDICATION: - liver cancer initial staging, [...] involvement. HEMATOLOGY Macrocyte 1+ None Seen 01/[address] (01/05/18 12:54 PM) HEMATOLOGY Anisocyte 1+ None Seen 01/[address] (01/05/18 12:54 PM) HEMATOLOGY Smudge Moderate None Seen 01/[address] (01/05/18 12:54 PM) HEMATOLOGY Lymphocytes 24.7 K/CMM 1.0 - 5.5 01/[address] HEMATOLOGY Segs-Bands # 1.3 K/CMM 1.5 - 8.[address] [place] [address] HEMATOLOGY Segs 5.1 % 45.0 - 01/05 [facility] [address] HEMATOLOGY Basophils # 0.1 K/CMM 0.0 - 0.[address] [place] [address] HEMATOLOGY Eosinophils 0.1 K/CMM 0.0 - 0.[address] [place] [address] HEMATOLOGY Monocytes # 0.2 K/CMM 0.0 - 0.[address] [place] [address] HEMATOLOGY Basophils 0.2 % 0.0 - 1.[address] [place] [address] HEMATOLOGY Eosinophils 0.2 % 0.0 - 4.[address] [place] [address] HEMATOLOGY Monocytes 0.7 % 2.0 - 12.[address] HEMATOLOGY Lymphocytes 93.8 % 20.0 - 01/05 [place] [address] [place] [address] HEMATOLOGY WBC 26.4 K/CMM 3.7 - 10.[address] [place] [address] HEMATOLOGY MPV 10.3 fL 7.4 - 10.4 03/ [address] [place] [address] HEMATOLOGY Platelet 68 K/CMM 133 - 450 01/05 [facility] HEMATOLOGY RDW 20.4 % 11.5 - 03 [facility] 14.5 /2017 [facility] [facility] [place] HEMATOLOGY MCHC 32.0 g/dL 32.0 - 01/05 [facility] 36.0 [facility] HEMATOLOGY MCH 32.5 pg 27.0 - 01/05 [facility] 31.0 [facility] HEMATOLOGY RBC 2.37 M/CMM 4.20 - 03 [facility] 5.40 /2017 [facility] HEMATOLOGY MCV 101.3 fL 80.0 - 01/05 [facility] 98.0 /2017 [facility] HEMATOLOGY Hct 24.0 % 36.0 - 01/05 [facility] 48.0 [facility] HEMATOLOGY Hgb 7.7 g/dL 12.0 - 01/05 [facility] 16.0 [facility] CHEM PANEL Magnesium 1.8 mg/dL 1.8 - 2.4 01/05 Result [facility] Lvl /2017 Comment: [facility] Slightly Hemolyzed. CHEM PANEL Phosphorus 3.4 mg/dL 2.5 - 4.5 01/[address] CHEM PANEL Albumin Lvl 2.7 g/dL 3.5 - 5.0 01/[address] CHEM PANEL Bili Total 0.4 mg/dL 0.2 - 1.3 01/[address] CHEM PANEL Total 7.4 g/dL 6.4 - 8.4 01/05 [facility] Protein [address] [place] [address] CHEM PANEL AST 21 unit/L 0 - 37 01/[address] CHEM PANEL ALT 10 unit/L 0 - 65 01/[address] CHEM PANEL Alk Phos 70 unit/L 39 - 136 01/[address] CHEM PANEL Globulin 4.7 g/dL 2.7 - 4.2 01/[address] CHEM PANEL A/G Ratio 0.6 0.7 - 1.6 01/[address] CHEM PANEL Bili Direct 0.1 mg/dL 0.0 - 0.3 01/[address] CHEM PANEL Bili 0.3 mg/dL 0.0 - 1.0 01/05 [facility] Indirect /[address] [place] [address] ELECTROLYTE AGAP 17.3 meq/L 10.0 - 01/05 [facility] S 20.0 [facility] ELECTROLYTE CO2 22 meq/L 24 - 32 01/[address] ELECTROLYTE Calcium Lvl 8.8 mg/dL 8.5 - 10.5 01/[address] ELECTROLYTE Potassium 4.3 meq/L 3.5 - 5.1 01/05 [facility] Lvl /2017 [facility] ELECTROLYTE Chloride Lvl 98 meq/L 95 - 109 01/[address] ELECTROLYTE Sodium Lvl 133 meq/L 135 - 145 01/[address] ELECTROLYTE eGFR 43 01/05 Result Comment: The eGFR is calculated using the CKD-EPI formula. In most young, healthy individuals the eGFR will be >90 mL/ min/1.73m2. The eGFR declines with age. An eGFR of 60-89 may be normal in [facility] mL/min/11.02 some populations, particularly the elderly, for whom the CKD-EPI formula has not been extensively validated. Use of the eGFR is not recommended in the following populations: [address] Individuals with unstable creatinine concentrations, including [...] BUN 45 mg/dL 7 - 22 01/05 [facility] ELECTROLYTE Creatinine 1.19 mg/dL 0.50 - 01/05 [facility] Lvl 1.40 [facility] ELECTROLYTE Glucose Lvl 120 mg/dL 70 - 99 01/[address] CHEM PANEL eGFR 41 01/04 Result Comment: The eGFR is calculated using the CKD-EPI formula. In most young, healthy individuals the eGFR will be >90 mL/ min/1.73m2. The eGFR declines with age. An eGFR of 60-89 may be normal in [facility]/min/1. some populations, particularly the elderly, for whom the CKD-EPI formula has not been extensively validated. Use of the eGFR is not recommended in the following populations: [address] Individuals with unstable creatinine concentrations, including [...] CO2 23 meq/L 24 - 32 01/[address] CHEM PANEL Chloride Lvl 96 meq/L 95 - 109 01/[address] CHEM PANEL AGAP 16.3 meq/L 10.0 - 01/04 [facility] 20.0 [facility] CHEM PANEL Potassium 4.3 meq/L 3.5 - 5.1 01/[address] CHEM PANEL Sodium Lvl 131 meq/L 135 - 145 01/[address] CHEM PANEL Creatinine 1.24 mg/dL 0.50 - 01/04 [facility] Lvl 1.40 [facility] CHEM PANEL Calcium Lvl 8.8 mg/dL 8.5 - 10.5 01/[address] CHEM PANEL BUN 47 mg/dL 7 - 22 01/[address] CHEM PANEL Glucose Lvl 167 mg/dL 70 - 99 01/[address] CHEM PANEL Phosphorus 3.6 mg/dL 2.5 - 4.5 01/[address] CHEM PANEL Magnesium 2.0 mg/dL 1.8 - 2.4 01/[address] CHEM PANEL eGFR 45 01/03 Result Comment: The eGFR is calculated using the CKD-EPI formula. In most young, healthy individuals the eGFR will be >90 mL/ min/1.73m2. The eGFR declines with age. An eGFR of 60-89 may be normal in [facility] mL/min/1.7 some populations, particularly the elderly, for whom the CKD-EPI formula has not been extensively validated. Use of the eGFR is not recommended in the following populations: [address] Individuals with unstable creatinine concentrations, including [...] Lvl 135 meq/L 135 - 145 01/03 [facility] CHEM PANEL Potassium 3.5 meq/L 3.5 - 5.1 01/03 [facility] Lvl /2017 [facility] CHEM PANEL BUN 39 mg/dL 7 - 22 01/[address] CHEM PANEL Creatinine 1.15 mg/dL 0.50 - 01/03 [facility] Lvl 1.40 [facility] CHEM PANEL Calcium Lvl 9.0 mg/dL 8.5 - 10.5 01/03 2017 [facility] CHEM PANEL Chloride Lvl 100 meq/L 95 - 109 01/03 2017 [facility] CHEM PANEL CO2 25 meq/L 24 - 32 01/03 [facility]2017 [facility] CHEM PANEL Glucose Lvl 164 mg/dL 70 - 99 01/[address] CHEM PANEL AGAP 13.5 meq/L 10.0 - 01/03 20.0 [facility] HEMATOLOGY Platelet 68 K/CMM 133 - 450 01/03 [facility] HEMATOLOGY MPV 9.4 fL 7.4 - 10.4 01/[address] [place] [address] HEMATOLOGY MCV 98.7 fL 80.0 - 10 98.0 [facility] HEMATOLOGY MCH 32.4 pg 27.0 - 10 31.0 [facility] HEMATOLOGY MCHC 32.8 g/dL 32.0 - 10 36.0 [facility] HEMATOLOGY RDW 20.6 % 11.5 - 10 14.5 [facility] HEMATOLOGY WBC 27.7 K/CMM 3.7 - 10.4 01/03 [facility] HEMATOLOGY RBC 2.25 M/CMM 4.20 - 0310 5.40 [facility] HEMATOLOGY Hct 22.2 % 36.0 - 10 48.0 [facility] HEMATOLOGY Hgb 7.3 g/dL 12.0 - 10 16.0 [facility] HEMATOLOGY Segs 7.1 % 45.0 - 10 [place] 75.0 [facility] HEMATOLOGY Lymphocytes 91.1 % 20.0 - 10 [place] 40.0 [facility] HEMATOLOGY Monocytes 1.3 % 2.0 - 12.0 01/[address] HEMATOLOGY Segs-Bands # 2.0 K/CMM 1.5 - 8.1 01/[address] HEMATOLOGY Eosinophils 0.2 % 0.0 - 4.0 01/[address] HEMATOLOGY Basophils 0.3 % 0.0 - 1.0 01/[address] HEMATOLOGY Basophils # 0.1 K/CMM 0.0 - 0.2 01/[address] HEMATOLOGY Lymphocytes 25.2 K/CMM 1.0 - 5.5 01/[address] HEMATOLOGY Monocytes # 0.4 K/CMM 0.0 - 0.8 01/[address] HEMATOLOGY Smudge Moderate None Seen 01/[address] [place] (01/03/18 5:18 AM) CHEM PANEL Magnesium 2.7 mg/dL 1.8 - 2.4 01/02 [facility] [address] [place] [address] CHEM PANEL Phosphorus 4.3 mg/dL 2.5 - 4.5 01/[address] HEMATOLOGY Basophils # 0.1 K/CMM 0.0 - 0.2 01/[address] HEMATOLOGY Segs-Bands # 1.8 K/CMM 1.5 - 8.1 01/[address] HEMATOLOGY Lymphocytes 28.6 K/CMM 1.0 - 5.5 01/[address] HEMATOLOGY Monocytes # 0.2 K/CMM 0.0 - 0.8 01/[address] HEMATOLOGY Basophils 0.4 % 0.0 - 1.0 01/[address] HEMATOLOGY Anisocyte 1+ None Seen 01/[address]* [place] (01/02/18 2:43 AM) HEMATOLOGY Segs 6.0 % 45.0 - 01/02 [facility] 75.0 [facility] [place] HEMATOLOGY Eosinophils 0.1 % 0.0 - 4.0 01/[address] HEMATOLOGY Lymphocytes 92.8 % 20.0 - 01/02 [facility] 40.0 [facility] [place] HEMATOLOGY Monocytes 0.7 % 2.0 - 12.0 01/[address] HEMATOLOGY Plt Morph Normal 01/02 [facility] (01/02/18 2:43 AM) [place] HEMATOLOGY INR 1.07 0.85 - 01/02 [place] 1.17 [facility] [place] HEMATOLOGY PT 13.9 s 12.0 - 01/02 [facility] 14.7 [facility] HEMATOLOGY PTT 30.5 s 22.9 - 01/02 [place] 35.8 /2017 [facility] HEMATOLOGY MCHC 33.3 g/dL 32.0 - 01/02 [place] 36.0 [facility] HEMATOLOGY Platelet 85 K/CMM 133 - 450 01/02 [facility] HEMATOLOGY RDW 21.1 % 11.5 - 01/02 [facility] 14.5 [facility] HEMATOLOGY MPV 9.6 fL 7.4 - 10.4 01/02 [facility] [address] [place] [address] HEMATOLOGY WBC 30.8 K/CMM 3.7 - 10.4 01/02 [facility] [address] [place] [address] HEMATOLOGY Hct 25.3 % 36.0 - 01/02 [place] 48.0 [facility] HEMATOLOGY Hgb 8.4 g/dL 12.0 - 01/02 [facility] 16.0 [facility] HEMATOLOGY RBC 2.57 M/CMM 4.20 - 01/02 [facility] 5.40 /2017 [facility] HEMATOLOGY MCH 32.7 pg 27.0 - 01/02 [facility] 31.0 [facility] HEMATOLOGY MCV 98.4 fL 80.0 - 01/02 [facility] 98.0 [facility] PARATHYROID Ca Ion WB 1.11 1.05 - 01/02 [facility] PROFILE mMol/L 1. [facility] PARATHYROID Ca Norm WB 1.12 1.05 - 01/02 [facility] PROFILE mMol/L 1. [facility] ANEMIA TRANSFERRIN 208 mg/dL 212 - 360 01/02 [facility] ANEMIA % Satur Fe 18 % 12 - [address] [facility] ANEMIA TIBC 430 ug/dl 228 - [address] [facility] ANEMIA UIBC 351 ug/dl 110 - 370 01/02 [facility] ANEMIA Iron 79 ug/dl 30 - 160 01/02 [facility] ANEMIA Ferritin Lvl 81 ng/mL 5 - 204 01/02 [facility] BLOOD BANK RBC product Product available 01/02 [facility] RESULTS Medical (01/01/18 8:44 PM) [place] HEMATOLOGY Macrocyte 1+ None Seen 01/02 [facility]* [place] (01/01/18 6:39 PM) CHEM PANEL Alk Phos 75 unit/L 39 - 136 01/[address] CHEM PANEL Bili Total 0.6 mg/dL 0.2 - 1.3 01/01 [facility]2017 [facility] CHEM PANEL AST 33 unit/L 0 - 37 01/[address] CHEM PANEL Total 7.3 g/dL 6.4 - 8.4 01/01 [facility] Protein /2017 [facility] CHEM PANEL Albumin Lvl 2.8 g/dL 3.5 - 5.0 01/01 [facility]2017 [facility] CHEM PANEL ALT 8 unit/L 0 - 65 01/[address] CHEM PANEL A/G Ratio 0.6 0.7 - 1.6 01/01 [facility]2017 [facility] CHEM PANEL B/C Ratio 24 6 - 25 01/[address] CHEM PANEL Globulin 4.5 g/dL 2.7 - 4.2 01/[address] BLOOD BANK Antibody Negative 01/01 [facility] RESULTS Scr [facility] (01/01/18 12:41 AM) [place] BLOOD BANK ABO/Rh O NEG 01/01 [facility] /2017 [facility] CARDIAC BNP 904 pg/mL <=100 01/01 [facility] ENZYMES pg/mL /2017 [facility] CHEM PANEL Lactic Acid 1.5 mMol/L 0.5 - 2.2 01/01 [facility] Lvl /2017 [facility] CHEM PANEL Procalcitoni 0.55 ng/mL 0.00 - 01/01 [facility] n Lvl 0.10 [facility] CHEM PANEL Total 7.8 g/dL 6.4 - 8.4 01/01 [facility] Protein /[address] [place] [address] CHEM PANEL Alk Phos 82 unit/L 39 - 136 01/[address] CHEM PANEL Bili Total 0.7 mg/dL 0.2 - 1.3 01/[address] CHEM PANEL Albumin Lvl 3.1 g/dL 3.5 - 5.0 01/[address] CHEM PANEL ALT 9 unit/L 0 - 65 01/01 [facility] [address] [place] [address] CHEM PANEL AST 21 unit/L 0 - 37 01/[address] CHEM PANEL A/G Ratio 0.7 0.7 - 1.6 01/[address] CHEM PANEL Globulin 4.7 g/dL 2.7 - 4.2 01/[address] CHEM PANEL B/C Ratio 23 6 - 25 01/[address] HEMATOLOGY Plt Morph Normal 01/01 [facility] (01/01/18 12:41 AM) [place] HEMATOLOGY Macrocyte 1+ None Seen 01/01 [facility] [place] [facility]01/01/18 12:41 AM[facility] HEMATOLOGY Polychrom Moderate None Seen 01/01 [facility] [place] (01/01/18 12:41 AM) HEMATOLOGY PTT 33.7 s 22.9 - 01/01 [facility] 35.8 [facility] [place] HEMATOLOGY PT 13.6 s 12.0 - 01/01 [facility] 14.7 [facility] [place] HEMATOLOGY INR 1.04 0.85 - 01/01 [facility] 1.17 [facility] Chest 1view Chest 1view EXAM: XR CHEST 1 VIEW 01/01 - [facility] DX DX - [facility] DATE: 01/01/2018 Read by: Jackie Marcum MD [...] Lvl 131 ng/mL 5 - 204 11/29 [facility] STUDY [facility] CHEM PANEL Magnesium 1.8 mg/dL 1.8 - 2.4 11/29 [facility] CHEM PANEL Phosphorus 3.1 mg/dL 2.5 - 4.5 11/[address] CHEM PANEL Uric Acid 1.0 mg/dL 2.5 - 7.0 11/[address] CHEM PANEL eGFR 37 11/29 Result Comment: The eGFR is calculated using the CKD-EPI formula. In most young, healthy individuals the eGFR will be >90 mL/ min/1.73m2. The eGFR declines with age. An eGFR of 60-89 may be normal in [facility] mL/min/1.7 /2017 some populations, particularly the elderly, for whom the CKD-EPI formula has not been extensively validated. Use of the eGFR is not recommended in the following populations: [address] Individuals with unstable creatinine concentrations, including [...] Lvl 100 meq/L 95 - 109 11/[address] CHEM PANEL CO2 24 meq/L 24 - 32 11/[address] CHEM PANEL Creatinine 1.36 mg/dL 0.50 - 11/29 [facility] Lvl 1.40 [facility] CHEM PANEL Sodium Lvl 135 meq/L 135 - 145 11/[address] CHEM PANEL Potassium 4.4 meq/L 3.5 - 5.1 11/29 [facility] [address] [place] [address] CHEM PANEL BUN 47 mg/dL 7 - 22 11/[address] CHEM PANEL Glucose Lvl 147 mg/dL 70 - 99 11/[address] CHEM PANEL AGAP 15.4 meq/L 10.0 - 11/29 [facility] 20.0 [facility] [place] CHEM PANEL Calcium Lvl 9.6 mg/dL 8.5 - 10.5 11/[address] HEMATOLOGY WBC 30.9 K/CMM 3.7 - 10.4 11/[address] HEMATOLOGY RDW 21.4 % 11.5 - 11/29 [facility] 14.5 [facility] [place] HEMATOLOGY Platelet 75 K/CMM 133 - 450 11/[address] HEMATOLOGY MPV 9.4 fL 7.4 - 10.4 11/[address] HEMATOLOGY MCH 32.5 pg 27.0 - 11/29 [facility] 31.0 [facility] [place] HEMATOLOGY MCHC 32.2 g/dL 32.0 - 11/29 [facility] 36.0 [facility] HEMATOLOGY Hgb 8.1 g/dL 12.0 - 11/29 [facility] 16.0 [facility] HEMATOLOGY Hct 25.2 % 36.0 - 11/29 [facility] 48.0 [facility] HEMATOLOGY MCV 100.7 fL 80.0 - 11/29 [facility] 98.0 [facility] HEMATOLOGY RBC 2.50 M/CMM 4.20 - 11/29 [facility] 5.40 /2017 [facility] HEMATOLOGY Segs 4.0 % 45.0 - 11/29 [facility] 75.0 [facility] HEMATOLOGY Lymphocytes 95.0 % 20.0 - 11/29 [facility] 40.0 [facility] [place] HEMATOLOGY Bands 0.0 % 0.0 - 11.0 11/[address] HEMATOLOGY Monocytes 1.0 % 2.0 - 12.0 11/[address] HEMATOLOGY Segs-Bands # 1.2 K/CMM 1.5 - 8.1 11/[address] HEMATOLOGY Plt Morph Normal 11/29 [facility] (11/29/17 6:20 AM) Center HEMATOLOGY Atypical 0.0 % <=0.0 % 11/29 [facility] Lymphs [facility] [place] HEMATOLOGY Macrocyte 1+ None Seen 11/29 [facility] *ABN* Center (11/29/17 6:20 AM) HEMATOLOGY Anisocyte 1+ None Seen 11/29 [facility] *ABN* [place] (11/29/17 6:20 AM) HEMATOLOGY Polychrom Slight 11/29 [facility] [place] HEMATOLOGY Lymphocytes 29.4 K/CMM 1.0 - 5.5 11/29 [place] # [facility] HEMATOLOGY Monocytes # 0.3 K/CMM 0.0 - 0.8 11/29 [facility] [address] [place] [address] PARATHYROID PTH Intact 88.2 pg/mL 11.1 - 11/29 [facility] PROFILE 79.5 [facility] LAB RESULTS Hypermutat /2017 [facility] AnalyisSou rce: BMResults: Mutation Status: UnmutatedI [...] 22:40. 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 Juan Rushing @[id number] on 12/04/2017 /Rebecca.R eference lab results scanned in [employer]. Results displayed in Results-La b-REFERENC E LAB-Outsid e Lab Documents (Imaged) under date/time results were scanned. Report sent for scanning on 12/04/2017 00:48. REFERENCE Test Name CLL BY 11/28 [place] LAB RESULTS FISH /2017 [facility] Center REFERENCE Test Name CHROMOSOME 11/28 [place] LAB RESULTS ANALYSIS /2017 Medical Center REFERENCE Misc Lab Chromosome 11/28 [facility] LAB RESULTS AnalysisSo Medical urce: [...] INR 1.09 0.85 - 11/28 [place] 1.17 [facility] [place] HEMATOLOGY PT 14.1 s 12.0 - 11/28 [facility] 14.7 [facility] [place] HEMATOLOGY PTT 72.4 s 22.9 - 11/28 [place] 35.8 [facility] [place] BLOOD BANK Antibody Negative 11/28 [facility] RESULTS Scrn [facility] (11/28/17 3:24 AM) [place] BLOOD BANK ABO/Rh O NEG 11/28 [facility] RESULTS /2017 [facility] Bone Marrow Bone Marrow STUDY: Bone marrow aspiration and biopsy 11/28 - [facility] Bio/Aspr CT Bio/Aspr CT /2017 - [facility] Biopsy of retroperitoneal mass Read by: Jayy Israel MD Dictated Date/time: 11/28/17 10:29 Electronically Signed by: Jayy Israel MD 11/28/17 10:58 FINAL REPORT DATE: 11/28/2017 8:00 AM 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 All needles were then removed. DIRECTOR DATA: Jhonatan CORPORATE TRAVEL CONSULTANT(S): CONSENT: Written consent obtained after discussing the [...] procedure. HEMATOLOGY INR 1.02 0.85 - 11/28 [facility] 1.17 [facility] [place] HEMATOLOGY PT 13.4 s 12.0 - 02 [facility] 14.7 [facility] [place] HEMATOLOGY PTT 61.0 s 22.9 - 02/ [facility] 35.8 [facility] ANEMIA Ferritin Lvl 151 ng/mL 5 - 204 11/28 [facility] STUDY [facility] CHEM PANEL Phosphorus 3.1 mg/dL 2.5 - 4.5 11/[address] CHEM PANEL Magnesium 1.7 mg/dL 1.8 - 2.4 11/28 [facility] CHEM PANEL eGFR 38 11/28 Result Comment: The eGFR is calculated using the CKD-EPI formula. In most young, healthy individuals the eGFR will be >90 mL/ min/1.73m2. The eGFR declines with age. An eGFR of 60-89 may be normal in [facility] mL/min/1.7 some populations, particularly the elderly, for whom the CKD-EPI formula has not been extensively validated. Use of the eGFR is not recommended in the following populations: [address] Individuals with unstable creatinine concentrations, including [...] Lvl 101 meq/L 95 - 109 11/[address] CHEM PANEL Potassium 4.2 meq/L 3.5 - 5.1 11/28 [facility] [place] CHEM PANEL Sodium Lvl 135 meq/L 135 - 145 11/[address] CHEM PANEL BUN 49 mg/dL 7 - 22 11/[address] CHEM PANEL Creatinine 1.31 mg/dL 0.50 - 11/28 [facility] 1.40 [facility] CHEM PANEL AGAP 12.2 meq/L 10.0 - 02/ [facility] 20.0 [facility] CHEM PANEL CO2 26 meq/L 24 - 32 02/ [address] CHEM PANEL Calcium Lvl 9.2 mg/dL 8.5 - 10.5 11/[address] CHEM PANEL Glucose Lvl 119 mg/dL 70 - [address] CHEM PANEL Uric Acid null 2.5 - 7.[address] HEMATOLOGY Platelet 75 K/CMM 133 - [address] HEMATOLOGY MPV 9.3 fL 7.4 - 10.[address] HEMATOLOGY MCHC 32.5 g/dL 32.0 - 11/28 [facility] 36.0 [facility] HEMATOLOGY RDW 21.2 % 11.5 - 11/28 [facility] 14.5 /2017 [facility] [place] HEMATOLOGY Hgb 7.2 g/dL 12.0 - 11/28 [facility] 16.0 [facility] [place] HEMATOLOGY RBC 2.20 M/CMM 4.20 - 11/28 [facility] 5.40 [facility] [place] HEMATOLOGY Hct 22.0 % 36.0 - 11/28 [facility] 48.0 [facility] [place] HEMATOLOGY MCH 32.6 pg 27.0 - 11/28 [facility] 31.0 [facility] [place] HEMATOLOGY MCV 100.2 fL 80.0 - 11/28 [facility] 98.0 [facility] [place] HEMATOLOGY WBC 30.1 K/CMM 3.7 - 10.4 11/[address] HEMATOLOGY Macrocyte 1+ None Seen 11/28 [facility] *ABN* Center (11/28/17 1:22 AM) HEMATOLOGY Smudge Moderate None Seen 11/28 [facility] (11/28/17 1:22 AM) HEMATOLOGY Lymphocytes 93.6 % 20.0 - 02 [facility] 40.0 [facility] [place] HEMATOLOGY Monocytes 0.6 % 2.0 - 12.[address] HEMATOLOGY Segs 5.6 % 45.0 - 02/ [facility] 75.0 [facility] HEMATOLOGY Eosinophils 0.1 % 0.0 - 4.0 11/[address] HEMATOLOGY Lymphocytes 28.2 K/CMM 1.0 - 5.5 11/28 [facility] # /2017 [facility] HEMATOLOGY Monocytes # 0.2 K/CMM 0.0 - 0.8 11/[address] HEMATOLOGY Anisocyte 1+ None Seen 11/28 [facility] [address] [place] [address] *ABN* Center (11/28/17 1:22 AM) HEMATOLOGY Basophils 0.1 % 0.0 - 1.0 11/[address] HEMATOLOGY Segs-Bands # 1.7 K/CMM 1.5 - 8.1 11/[address] PARATHYROID PTH Intact 103.9 11.1 - 11/28 [facility] PROFILE pg/mL 79.5 [facility] CHEM PANEL Uric Acid 3.5 mg/dL 2.5 - 7.0 11/[address] CHEM PANEL Phosphorus 3.8 mg/dL 2.5 - 4.5 11/[address] HEMATOLOGY PTT 58.9 s 22.9 - 11/28 [facility] 35.8 /2017 [facility] ANEMIA Ferritin Lvl 146 ng/mL 5 - 204 11/27 [facility] STUDY [facility] CHEM PANEL eGFR 39 11/27 Result Comment: The eGFR is calculated using the CKD-EPI formula. In most young, healthy individuals the eGFR will be >90 mL/ min/1.73m2. The eGFR declines with age. An eGFR of 60-89 may be normal in [facility] mL/min/1.7 some populations, particularly the elderly, for whom the CKD-EPI formula has not been extensively validated. Use of the eGFR is not recommended in the following populations: [address] Individuals with unstable creatinine concentrations, including [...] Lvl 134 meq/L 135 - 145 11/[address] CHEM PANEL Creatinine 1.30 mg/dL 0.50 - 11/27 [facility] Lvl 1.40 [facility] CHEM PANEL Chloride Lvl 99 meq/L 95 - 109 11/[address] CHEM PANEL Potassium 4.3 meq/L 3.5 - 5.1 11/27 [facility] Lvl /2017 [facility] CHEM PANEL CO2 24 meq/L 24 - 32 11/[address] CHEM PANEL AGAP 15.3 meq/L 10.0 - 11/27 [facility] 20.0 [facility] CHEM PANEL Calcium Lvl 9.7 mg/dL 8.5 - 10.5 11/[address] CHEM PANEL BUN 47 mg/dL 7 - 22 11/[address] CHEM PANEL Glucose Lvl 139 mg/dL 70 - [address] HEMATOLOGY INR 1.06 0.85 - 11/27 [facility] 1.17 [facility] HEMATOLOGY PT 13.8 s 12.0 - 11/27 [facility] 14.7 [facility] HEMATOLOGY Anisocyte 1+ None Seen 11/[address]* [place] (11/27/17 2:07 AM) HEMATOLOGY Tot Cell Ct 200 11/[address] HEMATOLOGY Smudge Moderate None Seen 11/[address]* [place] (11/27/17 2:07 AM) HEMATOLOGY Polychrom Moderate None Seen 11/[address] (11/27/17 2:07 AM) HEMATOLOGY Bands 0.0 % 0.0 - 11.0 11/[address] HEMATOLOGY Plt Morph Normal 11/[address] (11/27/17 2:07 AM) [place] HEMATOLOGY Segs 9.0 % 45.0 - 11/27 [facility] 75.0 [facility] HEMATOLOGY Monocytes 1.0 % 2.0 - 12.0 11/[address] HEMATOLOGY Lymphocytes 90.0 % 20.0 - 02 [facility] 40.0 [facility] HEMATOLOGY Atypical 0.0 % <=0.0 % 11/27 [facility] Lymphs [address] [place] [address] HEMATOLOGY Lymphocytes 27.6 K/CMM 1.0 - 5.5 11/[address] HEMATOLOGY Monocytes # 0.3 K/CMM 0.0 - 0.8 11/[address] HEMATOLOGY Segs-Bands # 2.8 K/CMM 1.5 - 8.1 11/[address] HEMATOLOGY RBC 2.19 M/CMM 4.20 - 11/27 [place] 5.40 /2017 [facility] HEMATOLOGY WBC 30.7 K/CMM 3.7 - 10.4 11/27 [facility] HEMATOLOGY Hgb 7.2 g/dL 12.0 - 11/27 [place] 16.0 /2017 [facility] HEMATOLOGY MCHC 32.7 g/dL 32.0 - 11/27 [place] 36.0 [facility] HEMATOLOGY MCH 32.6 pg 27.0 - 11/27 [place] 31.0 [facility] HEMATOLOGY MCV 99.9 fL 80.0 - 11/27 [facility] 98.0 [facility] HEMATOLOGY Hct 21.9 % 36.0 - 11/27 48.0 [facility] HEMATOLOGY RDW 22.1 % 11.5 - 11/27 [place] 14.5 [facility] HEMATOLOGY Platelet 74 K/CMM 133 - 450 11/27 [facility]2017 [facility] HEMATOLOGY MPV 9.1 fL 7.4 - 10.4 11/27 [facility] PARATHYROID PTH Intact 95.6 pg/mL 11.1 - 11/27 [facility] PROFILE 79.5 [facility] CHEM PANEL Vitamin D 40 pg/mL 11/26 Result Comment: Reference Range: [facility] 1,25 ([place] Adults: 21 - 65 [facility] CHEM PANEL Vitamin D3 40 pg/mL 11/26 Result Comment: Performed At: [facility] ,25 ([place]) [address] [place] [address] [id number] [facility] Trini Lao MD Ph:[phone] [place] CHEM PANEL Vitamin D2 null 11/26 [facility] 1,25 ([place] [facility] PARATHYROID Parathyroid null 11/26 Result Comment: Reference Range: [facility] All Ages: <2.0 Medical Related The PTHrP assay should not be used to exclude cancer or Center Peptide screen tumor patients for humoral hypercalcemia of malignancy (HHM). The results should always be assessed in conjunction with the patient's medical history, clinical examination, and other findings. If test results are clinically discordant, please contact the laboratory. Performed At: [facility] [address] [place] [address] [id number] Trini Lao MD Ph:[phone] HEMATOLOGY Bands 1.0 % 0.0 - 11.0 11/26 [facility] HEMATOLOGY Plt Morph Normal 11/26 [facility] (11/26/17 8:35 AM) [place] HEMATOLOGY Atypical 0.0 % <=0.0 % 11/26 [facility] Lymph [facility] HEMATOLOGY Polychrom Moderate None Seen 11/26 [facility] *ABN* [place] (11/26/17 8:35 AM) HEMATOLOGY Macrocyte 1+ None Seen 11/26 [facility] *ABN* [place] (11/26/17 8:35 AM) HEMATOLOGY Hypochrom 1+ None Seen 11/26 [facility] (11/26/17 8:35 AM) [place] HEMATOLOGY Smudge Moderate None Seen 11/26 [facility] *ABN* [place] (11/26/17 8:35 AM) BODY FLUIDS Clarity BF Moderate Cloudy Clear 11/25 [facility] *ABN* [place] (11/25/17 5:24 PM) BODY FLUIDS Color BF Dark Yellow Colorless 11/25 [facility] (11/25/17 5:24 PM) [place] BODY FLUIDS CellCnt BF Synovial 11/25 [facility] /2017 [facility] (11/25/17 5:24 PM) [place] BODY FLUIDS Macrophage 5 % 11/25 [facility] [place] [id number] /mm3 11/25 [facility] [place] [id number] /mm3 11/25 [facility] BODY FLUIDS Lymph BF 1 % 11/25 [facility] BODY FLUIDS Segs BF 94 % 11/25 [facility] BODY FLUIDS Crystal BF Synovial 11/25 [facility] Type /2017 [facility] (11/25/17 5:24 PM) [place] BODY FLUIDS Crystal BF [place]t Na Urate Negative 11/25 [facility] *ABN* [place] (11/25/17 5:24 PM) Hand 3 Hand 3 views EXAM: RIGHT HAND 3 VIEWS 11/25 - [facility] views DX - Medical EXAM: LEFT HAND 3 VIEWS Center Read by: Terell Sanchez MD Dictated Date/time: 11/26/17 07:24 DATE: 11/25/2017 6:02 PM PHYSICAL METALLURGIST Electronically Signed by: Terell Sanchez MD 11/26/17 [...] EXAM: RIGHT FOOT 3 VIEWS 11/25 - [facility] DX - Medical EXAM: LEFT FOOT 3 VIEWS Center Read by: Terell Sanchez MD Dictated Date/time: 11/26/17 07:30 DATE: 11/25/2017 6:02 PM PHYSICAL METALLURGIST Electronically Signed by: Terell Sanchez MD 11/26/17 [...] EXAM: RIGHT HAND 3 VIEWS 11/25 - [facility] DX DX /2017 - Medical EXAM: LEFT HAND 3 VIEWS Center Read by: Terell Sanchez MD Dictated Date/time: 11/26/17 07:24 DATE: 11/25/2017 6:02 PM PHYSICAL METALLURGIST Electronically Signed by: Terell Sanchez MD 11/26/17 [...] EXAM: RIGHT FOOT 3 VIEWS 11/25 - [facility] - Medical EXAM: LEFT FOOT 3 VIEWS Center Read by: Terell Sanchez MD Dictated Date/time: 11/26/17 07:30 DATE: 11/25/2017 6:02 PM PHYSICAL METALLURGIST Electronically Signed by: Terell Sanchez MD 11/26/17 [...] Eosinophils 0.1 % 0.0 - 4.0 11/[address] HEMATOLOGY Basophils 0.3 % 0.0 - 1.0 11/[address] HEMATOLOGY Basophils # 0.1 K/CMM 0.0 - 0.2 11/[address] HEMATOLOGY Hypochrom 1+ None Seen 11/[address] (11/25/17 5:26 AM) [place] Knee 3 Knee 3 views EXAM: XR RIGHT KNEE 3 VIEWS 11/24 - [facility] views DX DX /2017 - [facility] DATE: 11/24/2017 10:36 AM PHYSICAL METALLURGIST Read by: Davonte Ramires MD Dictated Date/time: [...] effusion. PET CT PET CT Tumor EXAM: NM PET CT Skull Base to Mid Thigh 11/24 - [facility] Tumor imaging-skul /2018 - Medical imaging-sku -[facility] This report was dictated by a Enterprise Services Manager/Fellow. I have personally reviewed the images as Center [facility] well as the Resident's interpretation and agree with the findings. DATE: 11/24/2017 10:48 AM PHYSICAL METALLURGIST Read by: Fela Lewis MD Resident: Fela [...] Eosinophils 0.1 % 0.0 - 4.0 11/[address] HEMATOLOGY Basophils # 0.1 K/CMM 0.0 - 0.2 11/[address] HEMATOLOGY Basophils 0.4 % 0.0 - 1.0 11/[address] CHEM PANEL B/C Ratio 21 04 - 11/[address] CHEM PANEL A/G Ratio 0.6 0.7 - 1.6 11/[address] CHEM PANEL Globulin 5.2 g/dL 2.7 - 4.2 11/[address] CHEM PANEL Albumin Lvl 2.9 g/dL 3.5 - 5.0 11/[address] CHEM PANEL ALT 11 unit/L 0 - 65 11/[address] CHEM PANEL AST 16 unit/L 0 - 37 11/[address] CHEM PANEL Alk Phos 71 unit/L 39 - 136 11/[address] CHEM PANEL Total 8.1 g/dL 6.4 - 8.4 11/[address] CHEM PANEL Bili Total 0.6 mg/dL 0.2 - 1.3 11/[address] HEMATOLOGY Eosinophils 0.3 K/CMM 0.0 - 0.5 11/[address] CHEM PANEL Bili Total 0.8 mg/dL 0.2 - 1.3 11/[address] CHEM PANEL Albumin Lvl 2.7 g/dL 3.5 - 5.0 11/[address] CHEM PANEL Alk Phos 65 unit/L 39 - 136 11/[address] CHEM PANEL AST 24 unit/L 0 - 37 11/[address] CHEM PANEL B/C Ratio 24 6 - 25 11/[address] CHEM PANEL ALT 7 unit/L 0 - 65 11/[address] CHEM PANEL A/G Ratio 0.6 0.7 - 1.6 11/[address] CHEM PANEL Total 7.3 g/dL 6.4 - 8.4 11/[address] CHEM PANEL Globulin 4.6 g/dL 2.7 - 4.2 11/[address] CHEM PANEL Magnesium 2.5 mg/dL 1.8 - 2.4 11/[address] PARATHYROID Ca Ion WB 1.17 1. - 11/21 [facility] PROFILE mMol/L 1. [facility] PARATHYROID Ca Norm WB 1.19 1.05 - 11/21 [facility] [place] PROFILE mMol/L 1. [facility] HEMATOLOGY Blasts 0.0 % <=0.0 % 11/[address] PARATHYROID Ca Norm WB 1.22 .05 - 11/21 [facility] PROFILE mMol/L 1. [facility] PARATHYROID Ca Ion WB 1.21 1.05 - 11/21 [facility] PROFILE mMol/L 1. [facility] CARDIAC Total CK 20 unit/L 12 - 191 11/21 [facility] ENZYMES [address] CHEM PANEL LDH 344 unit/L 98 - 192 11/[address] CHEM PANEL Plasma 10 mg/dL 0 - 10 11/21 [facility] Hemoglobin [address] CHEM PANEL A/G Ratio 0.6 0.7 - 1.6 11/[address] CHEM PANEL Globulin 4.7 g/dL 2.7 - 4.2 11/[address] CHEM PANEL AST 17 unit/L 0 - 37 11/[address] CHEM PANEL ALT 8 unit/L 0 - 65 11/[address] CHEM PANEL Albumin Lvl 2.8 g/dL 3.5 - 5.0 11/[address] CHEM PANEL Total 7.5 g/dL 6.4 - 8.4 11/21 [facility] Protein [address] CHEM PANEL Bili 0.6 mg/dL 0.0 - 1.0 11/21 [facility] Indirect [address] CHEM PANEL Bili Direct 0.3 mg/dL 0.0 - 0.3 11/[address] CHEM PANEL Bili Total 0.9 mg/dL 0.2 - 1.3 11/[address] CHEM PANEL Alk Phos 68 unit/L 39 - 136 11/[address] IMMUNOLOGY Haptoglobin 203 mg/dL 16 - 200 11/[address] URINE AND UA Sq Epi None Seen 11/21 [facility] STOOL [address] URINE AND UA <=1.0 0.1 - 1.0 11/21 [facility] STOOL Urobilinogen mg/dL /[address] [place] [address] URINE AND UA Bacteria Few /HPF None Seen 11/21 [facility] STOOL /HPF /[address] [place] [address] URINE AND UA Mucus Few /LPF None Seen 11/21 [facility] STOOL /LPF /[address] [place] [address] URINE AND UA Leuk Est Negative Negative 11/21 [facility] (11/20/17 6:30 PM) [place] URINE AND UA RBC null 0 - 2 11/[address] URINE AND UA Bili Negative Negative 11/21 [facility] [address] [place] [address] *NA* [place] (11/20/17 6:30 PM) URINE AND UA Blood Negative Negative 11/[address] (11/20/17 6:30 PM) [place] URINE AND UA Nitrite Negative Negative 11/21 [facility] (11/20/17 6:30 PM) [place] URINE AND UA WBC 1 /HPF 0 - 5 11/[address] URINE AND UA pH 5.0 5.0 - 8.0 11/[address] URINE AND UA Protein Negative Negative 11/21 [facility] mg/dL mg/dL [facility] URINE AND UA Ketones Negative Negative 11/21 [facility] mg/dL mg/dL [address] [place] [address] URINE AND UA Spec Grav 1.005 <=1.030 11/[address] URINE AND UA Color Light Yellow Yellow 11/21 [facility] [address] [place] [address] *NA* [place] (11/20/17 6:30 PM) URINE AND UA Turbidity Clear Clear 11/[address] (11/20/17 6:30 PM) [place] URINE AND UA Glucose Negative Negative 11/21 [facility] mg/dL mg/dL [address] [place] [address] URINE CHEM U Sodium 109 meq/L 11/[address] URINE CHEM U Protein null 11/21 [facility] [address] [place] [address] URINE CHEM U Creatinine 10.30 11/21 [facility] mg/dL [facility] URINE CHEM U Prot/Creat null 11/[address] PARATHYROID Ca Ion WB 1.18 1.05 - 11/20 [facility] PROFILE mMol/L . [facility] PARATHYROID Ca Norm WB 1.18 1.05 - 11/20 [facility] PROFILE mMol/L . [facility] CARDIAC BNP 351 pg/mL <=100 11/20 [place] ENZYMES pg/mL [address] [place] [address] HEMATOLOGY Blasts 16.0 % <=0.0 % 11/[address] HEMATOLOGY Tot Cell Ct 400 11/[address] Chest 1view Chest 1view EXAM: XR CHEST 1 VIEW 11/20 - [facility] DX DX - [facility] Center DATE: 11/20/2017 4:05 AM PHYSICAL METALLURGIST Read by: Meredith Jaimes MD Dictated Date/time: [...] Acid 1.1 mMol/L 0.5 - 2.2 11/20 [facility] Lvl [facility] BLOOD BANK RBC product Product available 11/20 [facility] RESULTS [facility] (11/19/17 6:49 PM) [place] BLOOD BANK ABO/Rh O NEG 11/20 [facility] RESULTS [facility] BLOOD BANK Antibody Negative 11/20 [facility] RESULTS Scrn [facility] (11/19/17 6:24 PM) [place] CARDIAC Troponin-I null 0.00 - 11/20 [facility] ENZYMES 0.40 [facility] HEMATOLOGY Tot Cell Ct 200 11/20 /2017 [facility] HEMATOLOGY Blasts 25.0 % <=0.0 % 11/20 Result Comment: Medical Previuosely Center blast was released HEMATOLOGY D-Dimer 1.72 ug/mL 11/20 [facility] FEU [facility] Chest 1view Chest 1view EXAM: XR CHEST 1 VIEW 11/19 - [facility] DX DX - Medical This report was dictated by a Enterprise Services Manager/Fellow. I have personally reviewed the images as Center well as the Resident's interpretation and agree with the findings. DATE: 11/19/2017 5:19 PM PHYSICAL METALLURGIST Read by: Kike Lea MD Resident: Kike [...] Phosphorus 2.7 mg/dL 2.5 - 4.5 11/[address] CHEM PANEL Magnesium 1.6 mg/dL 1.8 - 2.4 11/02 [facility] /[address] [place] [address] ELECTROLYTE AGAP 16.5 meq/L 10.0 - 11/02 [facility] 20.0 [facility] ELECTROLYTE eGFR 44 11/02 Result Comment: The eGFR is calculated using the CKD-EPI formula. In most young, healthy individuals the eGFR will be >90 mL/ min/1.73m2. The eGFR declines with age. An eGFR of 60-89 may be normal in [facility] mL/min/1.7 some populations, particularly the elderly, for whom the CKD-EPI formula has not been extensively validated. Use of the eGFR is not recommended in the following populations: [address] Individuals with unstable creatinine concentrations, including [...] ELECTROLYTE Creatinine 1.18 mg/dL 0.50 - 11/02 [facility] Lvl 1.40 /2017 [facility] ELECTROLYTE Sodium Lvl 137 meq/L 135 - 145 11/02 [facility] [address] [place] [address] ELECTROLYTE Chloride Lvl 103 meq/L 95 - 109 11/[address] ELECTROLYTE CO2 22 meq/L 24 - 32 11/[address] ELECTROLYTE Glucose Lvl 155 mg/dL 70 - 99 11/[address] ELECTROLYTE BUN 28 mg/dL 7 - 22 11/[address] ELECTROLYTE Potassium 4.5 meq/L 3.5 - 5.1 11/02 [facility] /[address] [place] [address] ELECTROLYTE Calcium Lvl 8.8 mg/dL 8.5 - 10.5 11/[address] HEMATOLOGY INR 1.06 0.85 - 11/02 [facility] 1.17 [facility] HEMATOLOGY PT 13.8 s 12.0 - 11/02 [facility] 14.7 [facility] HEMATOLOGY PTT 34.2 s 22.9 - 11/02 [facility] 35.8 [facility] HEMATOLOGY RBC 2.75 M/CMM 4.20 - 11/02 [facility] 5.40 [facility] HEMATOLOGY MCV 95.5 fL 80.0 - 11/02 [facility] 98.0 [facility] HEMATOLOGY MCH 31.2 pg 27.0 - 11/02 [facility] 31.0 [facility] HEMATOLOGY Hgb 8.6 g/dL 12.0 - 11/02 [facility] 16.0 [facility] HEMATOLOGY WBC 33.2 K/CMM 3.7 - 10.4 11/[address] HEMATOLOGY Hct 26.3 % 36.0 - 11/02 [facility] 48.0 [facility] HEMATOLOGY MPV 8.9 fL 7.4 - 10.4 11/[address] HEMATOLOGY Platelet 90 K/CMM 133 - 450 11/[address] HEMATOLOGY RDW 19.2 % 11.5 - 11/02 [facility] 14.5 [facility] HEMATOLOGY MCHC 32.7 g/dL 32.0 - 11/02 [facility] 36.0 [facility] HEMATOLOGY Tot Cell Ct 100 11/[address] HEMATOLOGY Plt Morph Normal 11/02 [facility] (11/02/17 4:34 AM) [place] HEMATOLOGY RBC Morph Normal 11/02 [facility] (11/02/17 4:34 AM) [place] HEMATOLOGY Atypical 0.0 % <=0.0 % 11/02 [facility] Lymphs /2017 [facility] HEMATOLOGY Monocytes 2.0 % 2.0 - 12.0 11/02 [facility]2017 [facility] HEMATOLOGY Lymphocytes 95.0 % 20.0 - 11/02 [facility] 40.0 [facility] HEMATOLOGY Bands 0.0 % 0.0 - 11.0 11/[address] HEMATOLOGY Segs 3.0 % 45.0 - 11/02 [facility] 75.0 [facility] HEMATOLOGY Monocytes # 0.7 K/CMM 0.0 - 0.8 11/02 [facility] [address] [place] [address] HEMATOLOGY Segs-Bands # 1.0 K/CMM 1.5 - 8.1 11/[address] HEMATOLOGY Lymphocytes 31.5 K/CMM 1.0 - 5.5 11/02 [facility] # /2017 [facility] HEMATOLOGY Smudge Moderate None Seen 11/02 [facility] *ABN* Center (11/02/17 4:34 AM) HEMATOLOGY Hct 23.2 % 36.0 - 11/02 [facility] 48.0 [facility] HEMATOLOGY Hgb 7.7 g/dL 12.0 - 11/02 [facility] 16.0 [facility] BLOOD BANK RBC product Product available 11/01 [facility] (11/01/17 7:10 AM) [place] CARDIAC BNP 384 pg/mL <=100 11/01 [facility] ENZYMES pg/mL /2017 [facility] CHEM PANEL Magnesium 2.2 mg/dL 1.8 - 2.4 11/01 [facility] Lvl [facility] CHEM PANEL Globulin 4.5 g/dL 2.7 - 4.2 11/[address] CHEM PANEL A/G Ratio 0.6 0.7 - 1.6 11/[address] CHEM PANEL B/C Ratio 22 6 - 25 11/[address] CHEM PANEL AGAP 17.7 meq/L 10.0 - 11/01 [facility] 20.0 [facility] CHEM PANEL eGFR 54 11/01 Result Comment: The eGFR is calculated using the CKD-EPI formula. In most young, healthy individuals the eGFR will be >90 mL/ min/1.73m2. The eGFR declines with age. An eGFR of 60-89 may be normal in [facility] mL/min/1.7 some populations, particularly the elderly, for whom the CKD-EPI formula has not been extensively validated. Use of the eGFR is not recommended in the following populations: [address] Individuals with unstable creatinine concentrations, including [...] Total 0.5 mg/dL 0.2 - 1.3 11/[address] CHEM PANEL Alk Phos 58 unit/L 39 - 136 11/[address] CHEM PANEL AST 19 unit/L 0 - 37 11/[address] CHEM PANEL Glucose Lvl 143 mg/dL 70 - 99 11/[address] CHEM PANEL Total 7.2 g/dL 6.4 - 8.4 11/01 [facility] Protein [address] CHEM PANEL Calcium Lvl 8.9 mg/dL 8.5 - 10.5 11/[address] CHEM PANEL CO2 20 meq/L 24 - 32 11/[address] CHEM PANEL Albumin Lvl 2.7 g/dL 3.5 - 5.0 11/[address] CHEM PANEL ALT 7 unit/L 0 - 65 11/[address] CHEM PANEL Creatinine 0.99 mg/dL 0.50 - 11/01 [facility] Lvl 1.40 [facility] CHEM PANEL BUN 22 mg/dL 7 - 22 11/[address] CHEM PANEL Sodium Lvl 142 meq/L 135 - 145 11/[address] CHEM PANEL Chloride Lvl 109 meq/L 95 - 109 11/[address] CHEM PANEL Potassium 4.7 meq/L 3.5 - 5.1 11/01 [facility] [address] [place] [address] CHEM PANEL Phosphorus 3.7 mg/dL 2.5 - 4.5 11/[address] HEMATOLOGY INR 1.07 0.85 - 11/01 [facility] 1.17 [facility] HEMATOLOGY PTT 32.8 s 22.9 - 11/01 [place] 35.8 /2018 [facility] HEMATOLOGY PT 13.9 s 12.0 - 11/01 [place] 14.7 /2017 [facility] HEMATOLOGY Platelet 90 K/CMM 133 - 450 11/01 [facility] HEMATOLOGY WBC 26.3 K/CMM 3.7 - 10.4 11/01 [facility] HEMATOLOGY Hgb 6.9 g/dL 12.0 - 11/01 Result [facility] 16.0 Comment: Medical Critical Center Result(s) called to KIRA CRAWFORD at 11/01/2017 03:48 by AAA. Read back OK. HEMATOLOGY RBC 2.23 M/CMM 4.20 - 11/01 [facility] 5.40 /2017 [facility] HEMATOLOGY MCH 30.9 pg 27.0 - 11/01 [facility] 31.0 2018 [facility] HEMATOLOGY RDW 19.2 % 11.5 - 11/01 [facility] 14.5 /2018 [facility] HEMATOLOGY MCHC 32.3 g/dL 32.0 - 11/01 [facility] 36.0 [facility] HEMATOLOGY MCV 95.6 fL 80.0 - 11/01 [facility] 98.0 2018 [facility] HEMATOLOGY Hct 21.3 % 36.0 - 11/01 [facility] 48.0 2018 [facility] HEMATOLOGY MPV 9.0 fL 7.4 - 10.4 11/01 [facility] HEMATOLOGY Lymphocytes 23.7 K/CMM 1.0 - 5.5 11/01 [place] # /2017 [facility] HEMATOLOGY Segs-Bands # 2.4 K/CMM 1.5 - 8.1 11/01 [facility] HEMATOLOGY Segs 9.0 % 45.0 - 11/01 [place] 75.0 2018 [facility] HEMATOLOGY Monocytes # 0.3 K/CMM 0.0 - 0.8 11/01 [facility] [address] [place] [address] HEMATOLOGY Bands 0.0 % 0.0 - 11.0 11/01 [facility] HEMATOLOGY Monocytes 1.0 % 2.0 - 12.0 11/01 [facility] [address] [place] [address] HEMATOLOGY Lymphocytes 90.0 % 20.0 - 11/01 [facility] 40.0 2018 [facility] HEMATOLOGY Atypical 0.0 % <=0.0 % 11/01 [facility] Lymphs [facility] HEMATOLOGY Smudge Moderate None Seen 11/01 [facility] Medical *ABN* Center (11/01/17 2:35 AM) PARATHYROID Ca Ion WB 1.24 1.05 - 11/01 [facility] PROFILE mMol/L 1. [facility] PARATHYROID Ca Norm WB 1.23 1.05 - 11/01 [facility] PROFILE mMol/L 1. [facility] ELECTROLYTE Potassium 4.5 meq/L 3.5 - 5.1 11/01 [facility] [address] [place] [address] CHEM PANEL Phosphorus 5.1 mg/dL 2.5 - 4.5 10/[address] CHEM PANEL Magnesium 1.2 mg/dL 1.8 - 2.4 10/31 [facility] [address] [place] [address] ELECTROLYTE AGAP 15.6 meq/L 10.0 - 10/31 [facility] 20.0 [facility] ELECTROLYTE eGFR 41 10/31 Result Comment: The eGFR is calculated using the CKD-EPI formula. In most young, healthy individuals the eGFR will be >90 mL/ min/1.73m2. The eGFR declines with age. An eGFR of 60-89 may be normal in [facility] mL/min/1. some populations, particularly the elderly, for whom the CKD-EPI formula has not been extensively validated. Use of the eGFR is not recommended in the following populations: [address] Individuals with unstable creatinine concentrations, including [...] ELECTROLYTE Creatinine 1.24 mg/dL 0.50 - 10/31 [facility] Lvl 1.40 [facility] ELECTROLYTE Glucose Lvl 190 mg/dL 70 - 99 10/[address] ELECTROLYTE BUN 23 mg/dL 7 - 22 10/[address] ELECTROLYTE Sodium Lvl 138 meq/L 135 - 145 10/[address] ELECTROLYTE Chloride Lvl 104 meq/L 95 - 109 10/[address] ELECTROLYTE CO2 22 meq/L 24 - 32 10/[address] ELECTROLYTE Calcium Lvl 8.4 mg/dL 8.5 - 10.5 10/31 S /2017 [facility] HEMATOLOGY MPV 8.9 fL 7.4 - 10.4 10/31 [facility] HEMATOLOGY RDW 19.3 % 11.5 - 10/31 [place] 14.5 /2017 [facility] HEMATOLOGY Platelet 78 K/CMM 133 - 450 10/31 [facility] HEMATOLOGY MCH 30.7 pg 27.0 - 10/31 [place] 31.0 [facility] HEMATOLOGY MCV 95.6 fL 80.0 - 10/31 [place] 98.0 /2017 [facility] HEMATOLOGY MCHC 32.1 g/dL 32.0 - 10/31 [place] 36.0 [facility] HEMATOLOGY WBC 19.6 K/CMM 3.7 - 10.4 10/31 [facility] HEMATOLOGY RBC 2.23 M/CMM 4.20 - 10/31 [place] 5.40 /2017 [facility] HEMATOLOGY Monocytes # 0.1 K/CMM 0.0 - 0.8 10/31 [facility] HEMATOLOGY Lymphocytes 18.6 K/CMM 1.0 - 5.5 10/31 [place] # /2017 [facility] HEMATOLOGY Basophils 0.2 % 0.0 - 1.0 10/31 [facility] HEMATOLOGY Segs-Bands # 0.8 K/CMM 1.5 - 8.1 10/31 [facility] HEMATOLOGY Eosinophils 0.2 % 0.0 - 4.0 10/31 [facility] HEMATOLOGY Monocytes 0.5 % 2.0 - 12.0 10/31 [facility] HEMATOLOGY Lymphocytes 95.1 % 20.0 - 05 [place] 40.0 2018 [facility] HEMATOLOGY Segs 4.0 % 45.0 - 05 [place] 75.0 2018 [facility] HEMATOLOGY INR 1.22 0.85 - 05 [place] 1.17 [facility] HEMATOLOGY PT 15.5 s 12.0 - 05 [place] 14.7 [facility] HEMATOLOGY PTT 33.5 s 22.9 - 05 [place] 35.8 [facility] PARATHYROID Ca Norm WB 1.16 1.05 - 10/31 [place] PROFILE mMol/L 1.25 [facility] PARATHYROID Ca Ion WB 1.20 1.05 - 10/31 [facility] PROFILE mMol/L . 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 BLOOD BANK ABO/Rh O NEG 10/31 [facility] RESULTS [facility] BLOOD BANK Antibody Negative 10/31 [facility] RESULTS Sc[facility] (10/31/17 5:29 AM) [place] CHEM PANEL A/G Ratio 0.7 0.7 - 1.6 10/31 [facility] CHEM PANEL Globulin 4.7 g/dL 2.7 - 4.2 10/31 2017 [facility] CHEM PANEL Albumin Lvl 3.1 g/dL 3.5 - 5.0 10/31 2017 [facility] CHEM PANEL Total 7.8 g/dL 6.4 - 8.4 10/31 [facility] Protein [facility] CHEM PANEL AST 17 unit/L 0 - 37 10/31 [facility]2017 [facility] CHEM PANEL ALT 8 unit/L 0 - 65 10/[address] CHEM PANEL B/C Ratio 18 6 - 25 10/31 [facility]2017 [facility] CHEM PANEL Bili Total 0.6 mg/dL 0.2 - 1.3 10/[address] CHEM PANEL Alk Phos 65 unit/L 39 - 136 10/[address] HEMATOLOGY Smudge Moderate None Seen 10/[address] *ABN* [place] (10/31/17 5:29 AM) HEMATOLOGY Anisocyte 1+ None Seen 10/[address] [place] (10/31/17 5:29 AM) HEMATOLOGY Basophils 0.1 % 0.0 - 1.0 10/[address] HEMATOLOGY Eosinophils 0.2 % 0.0 - 4.0 10/[address] CHEM PANEL AST 15 unit/L 0 - 37 10/[address] CHEM PANEL Bili Total 0.5 mg/dL 0.2 - 1.3 10/[address] CHEM PANEL Alk Phos 68 unit/L 39 - 136 10/[address] CHEM PANEL ALT 8 unit/L 0 - 65 10/[address] CHEM PANEL Albumin Lvl 3.0 g/dL 3.5 - 5.0 10/[address] CHEM PANEL Total 7.8 g/dL 6.4 - 8.4 10/30 [facility] Protein [address] CHEM PANEL A/G Ratio 0.6 0.7 - 1.6 10/[address] CHEM PANEL Globulin 4.8 g/dL 2.7 - 4.2 10/[address] CHEM PANEL B/C Ratio 18 6 - 25 10/[address] URINE AND UA Sq Epi None Seen 10/[address] URINE AND UA Trans Epi RARE <=0 10/[address] URINE AND UA Nitrite Negative Negative 10/[address] (10/29/17 9:10 PM) [place] URINE AND UA 8.0 mg/dL 0.1 - 1.0 10/30 [facility] Urobilinogen [address] URINE AND UA Blood Negative Negative 10/[address] (10/29/17 9:10 PM) [place] URINE AND UA Bili Negative Negative 10/[address] *NA* Center (10/29/17 9:10 PM) URINE AND UA Ketones Negative Negative 10/30 [facility] STOOL mg/dL mg/dL [address] [place] [address] URINE AND UA Bacteria Occasional None Seen 10/30 [facility] STOOL /HPF /HPF /[address] [place] [address] URINE AND UA RBC null 0 - 2 10/[address] URINE AND UA WBC 2 /HPF 0 - 5 10/[address] URINE AND UA Hyal Cast 3 /LPF 0 - 2 10/[address] URINE AND UA Mucus Few /LPF None Seen 10/30 [facility] STOOL /LPF /[address] [place] [address] URINE AND UA Protein 10 mg/dL Negative 10/30 [facility] STOOL mg/dL [address] [place] [address] URINE AND UA pH 6.0 5.0 - 8.0 10/[address] URINE AND UA Spec Grav 1.013 <=1.030 10/[address] URINE AND UA Turbidity Clear Clear 10/[address] (10/29/17 9:10 PM) [place] URINE AND UA Leuk Est Moderate Negative 10/30 [facility] [address] [place], [place] [address]ABN* [place] (10/29/17 9:10 PM) URINE AND UA Color Yellow Yellow 10/30 [facility] [address] [place], [place] [address]NA* Center (10/29/17 9:10 PM) URINE AND UA Glucose Negative Negative 10/30 [facility] mg/dL mg/dL [address] [place] [address] CARDIAC BNP 223 pg/mL <=100 10/29 [facility] ENZYMES pg/mL /[address] [place] [address] HEMATOLOGY Bands 0.0 % 0.0 - 11.0 10/[address] HEMATOLOGY Atypical 11.0 % <=0.0 % 10/29 [facility] Lymphs /[address] [place] [address] HEMATOLOGY Anisocyte 1+ None Seen 10/29 [address] Center (10/29/17 5:38 PM) HEMATOLOGY Eosinophils 0.0 K/CMM 0.0 - 0.5 10/29 [facility] /[address] [place] [address] HEMATOLOGY Basophils 0.0 % 0.0 - 1.0 10/[address] HEMATOLOGY Eosinophils 0.0 % 0.0 - 4.0 10/[address] HEMATOLOGY Blasts 3.0 % <=0.0 % 10/[address] HEMATOLOGY Basophils # 0.0 K/CMM 0.0 - 0.2 10/29 [facility] /2017 [facility] Chest 1view Chest 1view EXAM: XR CHEST 1 VIEW 10/29 - [facility] DX DX - Medical This report was dictated by a Enterprise Services Manager/Fellow. I have personally reviewed the images as Center well as the Resident's interpretation and agree with the findings. 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 In most young, healthy individuals the eGFR will be >90 mL/ min/1.73m2. The eGFR declines with age. An eGFR of 60-89 may be normal in [facility] mL/min/1.7 some populations, particularly the elderly, for whom the CKD-EPI formula has not been extensively validated. Use of the eGFR is not recommended in the following populations: [place] [address] Center Individuals with unstable creatinine concentrations, including [...] Heart/lua EXAM: CARDIAC COMPUTED TOMOGRAPHY ANGIOGRAPHY - [facility] art TAVR /2017 - Medical TAVR CTA CTA Center DATE: 10/21/2017 Read by: Nasir Katz MD Dictated Date/time: 10/21/17 12:49 Electronically Signed by: Nasir Katz MD 10/21/17 12:53 FINAL REPORT INDICATION: Aortic stenosis. COMPARISON: None TECHNIQUE: Contrast imaging was performed on a [employer] Aquilion [address] scanner utilizing a [...] the presence of in stent restenosis or [place] flow-limiting stenosis in this vessel. LCx: Normal [...] lower limit of normal. Ejection Fraction: 51% FHZ=660 cc ESV=72 cc SV=74 cc Other: AICD leads noted in the right heart chambers. Lung quijano to the extent visualized in limited study: Please see radiologist interpretation for extracardiac findings. IMPRESSION: Aortic valve disease. Coronary artery disease status post PCI. Chest/Abd/P Chest/Abd/Pe EXAM: CTA CHEST WITH AND WITHOUT CONTRAST 10/21 [facility] TAVR lvis TAVR /2016 - Medical CTA CTA EXAM: CTA ABDOMEN AND PELVIS WITH AND WITHOUT CONTRAST Center Read by: Pascual Meredith MD Dictated Date/time: 10/21/17 11:56 DATE: 10/21/2017 7:24 AM PHYSICAL METALLURGIST Electronically Signed by: Pascual Meredith MD 10/21/17 14:01 FINAL REPORT INDICATION:82 yearsFemale - Aortic Stenosis COMPARISON: EXAM: CTA CHEST WITH AND WITHOUT CONTRAST EXAM: CTA ABDOMEN AND PELVIS WITH AND WITHOUT CONTRAST DATE: 10/21/2017 7:24 AM PHYSICAL METALLURGIST INDICATION:82 yearsFemale - Aortic Stenosis COMPARISON: None. [...] after dictation. BLOOD BANK Antibody Negative 05/29 [facility] RESULTS Scrn [facility] (05/29/16 6:13 AM) [place] BLOOD BANK ABO/Rh O NEG 05/29 [facility] RESULTS /2015 [facility] CHEM PANEL Magnesium 1.8 mg/dL 1.8 - 2.4 05/29 [facility] Lvl /2015 [facility] CHEM PANEL eGFR 26 05/29 Result Comment: The eGFR is calculated using the CKD-EPI formula. In most young, healthy individuals the eGFR will be >90 mL/ min/1.73m2. The eGFR declines with age. An eGFR of 60-89 may be normal in [facility] mL/min/1.7 /2016 some populations, particularly the elderly, for whom the CKD-EPI formula has not been extensively validated. Use of the eGFR is not recommended in the following populations: [address] Individuals with unstable creatinine concentrations, including [...] Lvl 9.3 mg/dL 8.5 - 10.5 05/29 /2015 [facility] CHEM PANEL Creatinine 1.83 mg/dL 0.50 - 05/29 [facility] Lvl 1.40 /2015 [facility] CHEM PANEL Glucose Lvl 121 mg/dL 70 - 99 / /2015 [facility] CHEM PANEL Chloride Lvl 104 meq/L 95 - 109 05/29 /2015 [facility] CHEM PANEL Potassium 4.2 meq/L 3.5 - 5.1 05/29 [facility] Lvl /2015 [facility] CHEM PANEL CO2 26 meq/L 24 - 32 05/29 [facility] CHEM PANEL Sodium Lvl 139 meq/L 135 - 145 05/29 [facility] CHEM PANEL BUN 24 mg/dL 7 - 22 05/29 [facility] CHEM PANEL AGAP 13.2 meq/L 10.0 - 05/29 20.0 [facility] HEMATOLOGY Hgb 12.1 g/dL 12.0 - 05/29 16.0 /2015 [facility] HEMATOLOGY RBC 4.30 M/CMM 4.20 - 05/29 5.40 /2015 [facility] HEMATOLOGY Hct 36.9 % 36.0 - 05/29 [place] 48.0 /2015 [facility] HEMATOLOGY WBC 16.5 K/CMM 3.7 - 10.4 05/29 [facility] HEMATOLOGY RDW 15.7 % 11.5 - 08 14.5 [facility] HEMATOLOGY MCHC 32.8 g/dL 32.0 - 05/29 36.0 /2015 [facility] HEMATOLOGY MPV 8.8 fL 7.4 - 10.4 05/29 [facility] HEMATOLOGY Platelet 96 K/CMM 133 - 450 05/29 [facility] HEMATOLOGY MCH 28.2 pg 27.0 - 05/29 31.0 [facility] HEMATOLOGY MCV 85.9 fL 80.0 - 05/29 [facility] 98.0 [facility] HEMATOLOGY PTT 30.9 s 22.9 - 05/29 [facility] 35.8 /2015 [facility] HEMATOLOGY PT 14.4 s 12.0 - 05/29 14.7 [facility] HEMATOLOGY INR 1.09 0.85 - 05/29 [place] 1.17 /2015 [facility] HEMATOLOGY Segs-Bands # 3.0 K/CMM 1.5 - 8.1 05/29 [facility] HEMATOLOGY Basophils 0.8 % 0.0 - 1.0 05/29 [facility] HEMATOLOGY Eosinophils 1.2 % 0.0 - 4.0 05/29 [facility] HEMATOLOGY Lymphocytes 12.7 K/CMM 1.0 - 5.5 05/29 [place] # /2016 [facility] HEMATOLOGY Basophils # 0.1 K/CMM 0.0 - 0.2 05/29 [facility] HEMATOLOGY Eosinophils 0.2 K/CMM 0.0 - 0.5 05/29 [facility] # /2016 [facility] HEMATOLOGY Monocytes # 0.5 K/CMM 0.0 - 0.8 05/29 [facility] HEMATOLOGY Segs 18.3 % 45.0 - 08 [facility] 75.0 /2015 [facility] HEMATOLOGY Monocytes 2.9 % 2.0 - 12.0 05/29 /2015 [facility] HEMATOLOGY Lymphocytes 76.8 % 20.0 - 08 [facility] 40.0 /2015 [facility] Spine Spine lumbar EXAM: XR LUMBAR SPINE 2 VIEWS 04/20 [facility] OPID lumbar 2 or 2 or 3 views /2013 - [place] 3 views DATE: 2014-04-20 0953 hours Read [...] height loss at L4-L5 slightly progressed in interim, with new endplate sclerosis and vacuum [...] 1.6 mg/dL 1.8 - 2.4 01/20 LOW [facility] Lvl /2012 [facility] CHEMISTRY eGFR 44 01/20 NA 1Result Comment: The eGFR is calculated using the CKD-EPI formula. In most young, healthy individuals the eGFR will be > 90 mL/min/1.73m2. The eGFR declines with age. An eGFR of 60-89 may be normal in [facility] mL/min/1. some populations, particularly the elderly, for whom the CKD-EPI formula has not been extensively validated. Use of the eGFR is not recommended in the following populations: Medical [facility] Center Individuals with unstable creatinine concentrations, including [...] AGAP 8.5 meq/L 10.0 - 01/20 LOW [facility] 20.0 [facility] CHEMISTRY Calcium Lvl 9.4 mg/dL 8.5 - 10.5 01/20 Normal [facility] CHEMISTRY Chloride Lvl 106 meq/L 95 - 109 01/20 Normal [facility] CHEMISTRY CO2 28 meq/L 24 - 32 01/20 Normal [facility] CHEMISTRY Sodium Lvl 138 meq/L 135 - 145 01/20 Normal [facility] CHEMISTRY Potassium 4.5 meq/L 3.5 - 5.1 01/[address] [facility] CHEMISTRY Glucose Lvl 182 mg/dL 70 - 99 01/20 [place] 3Interpretive Data: Adult reference range values reflect the clinical guidelines of the [place] [employer]. [facility] CHEMISTRY BUN 18 mg/dL 7 - 22 01/20 Normal [facility] CHEMISTRY Creatinine 1.2 mg/dL 0.5 - 1.4 01/20 Normal [facility] HEMATOLOGY MCH 26.0 pg 27.0 - 01/20 LOW [facility] 31.0 [facility] HEMATOLOGY MCHC 31.9 g/dL 32.0 - 01/20 LOW [facility] 36.0 [facility] HEMATOLOGY RDW 16.8 % 11.5 - 01/20 HI [facility] 14.5 [facility] HEMATOLOGY Hgb 12.5 g/dL 12.0 - 01/20 Normal [facility] 16.0 [facility] HEMATOLOGY Hct 39.2 % 36.0 - 01/20 Normal [place] 48.0 /2012 Medical [place] HEMATOLOGY MCV 81.6 fL 81.0 - 01/20 Normal [place] 99.0 /2012 [facility] Center HEMATOLOGY WBC 7.0 K/CMM 3.7 - 10.4 01/20 Normal /2012 [facility] HEMATOLOGY RBC 4.81 M/CMM 4.20 - 01/20 Normal [place] 5.40 /2012 [facility] HEMATOLOGY Platelet 91 K/CMM 133 - 450 01/20 LOW /2012 [facility] HEMATOLOGY MPV 9.3 fL 7.4 - 10.4 01/20 Normal /2012 [facility] HEMATOLOGY Basophils 2.0 % 0.0 - 1.0 01/20 [place] [facility] HEMATOLOGY Lymphocytes 15.2 % 20.0 - 01/20 LOW [place] 40.0 [facility] HEMATOLOGY Segs 68.7 % 45.0 - 01/20 Normal [place] 75.0 [facility] HEMATOLOGY Eosinophils 3.2 % 0.0 - 4.0 01/20 Normal [facility] HEMATOLOGY Monocytes 10.9 % 2.0 - 12.0 01/20 Normal [facility] HEMATOLOGY Eosinophils 0.2 K/CMM 0.0 - 0.5 01/20 Normal [place] [facility] HEMATOLOGY Monocytes # 0.8 K/CMM 0.0 - 0.8 01/20 Normal /2012 [facility] HEMATOLOGY Basophils # 0.1 K/CMM 0.0 - 0.2 01/20 Normal [facility] HEMATOLOGY Lymphocytes 1.1 K/CMM 1.0 - 5.5 01/20 Normal [place] [facility] HEMATOLOGY Segs-Bands # 4.8 K/CMM 1.5 - 8.1 01/20 Normal [facility] Center BLOOD BANK Antibody Negative 01/19 Normal [place] RESULTS [facility] (01/19/2013 06:26:48) Center BLOOD BANK ABO/Rh O NEG 01/19 Unknown [place] RESULTS /2012 [facility] CHEMISTRY Magnesium 1.4 mg/dL 1.8 - 2.4 01/19 LOW [place] Lvl /2012 [facility] CHEMISTRY AGAP 10.1 meq/L 10.0 - 01/19 Normal [place] 20.0 [facility] CHEMISTRY eGFR 44 01/19 NA 2Result Comment: The eGFR is calculated using the CKD-EPI formula. In most young, healthy individuals the eGFR will be > 90 mL/min/1.73m2. The eGFR declines with age. An eGFR of 60-89 may be normal in [facility] mL/min/1. some populations, particularly the elderly, for whom the CKD-EPI formula has not been extensively validated. Use of the eGFR is not recommended in the following populations: [place] [address] Center Individuals with unstable creatinine concentrations, including [...] the estimated BMI. CHEMISTRY CO2 29 meq/L - 01/19 Normal [facility] CHEMISTRY Calcium Lvl 9.5 mg/dL 8.5 - 10.5 01/19 Normal [facility] CHEMISTRY BUN 22 mg/dL 7 - 01/19 Normal [facility] CHEMISTRY Sodium Lvl 141 meq/L 135 - 145 01/19 Normal [facility] CHEMISTRY Potassium 4.1 meq/L 3.5 - 5.1 01/[address] [facility] CHEMISTRY Creatinine 1.2 mg/dL 0.5 - 1.4 01/[address] [facility] CHEMISTRY Glucose Lvl 78 mg/dL 70 - 99 01/19 Normal 4Interpretive Data: Adult reference range values reflect the clinical guidelines of the [place] [employer]. [facility] CHEMISTRY Chloride Lvl 106 meq/L 95 - 109 01/19 Normal [facility] HEMATOLOGY PT 14.7 s 12.0 - 01/19 Normal [facility] 14.7 [facility] HEMATOLOGY PTT 32.3 s 22.9 - 01/19 Normal 6Interpretive [facility] 35.8 Data: Heparin [facility] Range: 57 - 92 [place] HEMATOLOGY INR 1.13 0.85 - 01/19 Normal 5Interpretive Data: RECOMMENDED RANGES FOR PROTIME INR: [facility] . 2.0-3.0 for most medical and surgical thromboembolic states. Medical 2.5-3.5 for artificial heart valves and recurrent embolism. Center INR SHOULD BE USED ONLY FOR PATIENTS ON STABLE ANTICOAGULANT THERAPY. HEMATOLOGY RBC 4.97 M/CMM 4.20 - 01/19 Normal [place] 5.40 /2012 [facility] HEMATOLOGY Hgb 13.1 g/dL 12.0 - 01/19 Normal [place] 16.0 [facility] HEMATOLOGY Platelet 89 K/CMM 133 - 450 01/19 LOW [facility] HEMATOLOGY MPV 8.8 fL 7.4 - 10.4 01/19 Normal [facility] HEMATOLOGY MCV 81.8 fL 81.0 - 01/19 [facility] [place] 99.0 /2012 [facility] HEMATOLOGY Hct 40.6 % 36.0 - 01/19 [facility] [place] 48.0 [facility] HEMATOLOGY RDW 17.2 % 11.5 - 01/19 [facility] 14.5 [facility] HEMATOLOGY MCH 26.3 pg 27.0 - 01/19 LOW [place] 31.0 /2012 [facility] HEMATOLOGY MCHC 32.2 g/dL 32.0 - 01/19 Normal [facility] 36.0 [facility] HEMATOLOGY WBC 5.7 K/CMM 3.7 - 10.4 01/19 Normal [facility] HEMATOLOGY Basophils 0.6 % 0.0 - 1.0 01/19 Normal [facility] HEMATOLOGY Monocytes 11.5 % 2.0 - 12.0 01/19 Normal /2012 [facility] HEMATOLOGY Eosinophils 3.1 % 0.0 - 4.0 01/19 [facility] HEMATOLOGY Monocytes # 0.7 K/CMM 0.0 - 0.8 01/19 [facility] HEMATOLOGY Lymphocytes 1.9 K/CMM 1.0 - 5.5 01/19 Normal [place] /2012 [facility] HEMATOLOGY Segs-Bands # 2.9 K/CMM 1.5 - 8.1 01/19 [facility] HEMATOLOGY Eosinophils 0.2 K/CMM 0.0 - 0.5 01/19 Normal [place] [facility] HEMATOLOGY Lymphocytes 33.7 % 20.0 - 01/19 [facility] [place] 40.0 [facility] HEMATOLOGY Segs 51.1 % 45.0 - 01/19 [facility] [place] 75.0 [facility] HEMATOLOGY PT 19.4 s 12.0 - 07/31 [facility] 14. [facility] Center HEMATOLOGY INR 1.62 0.85 - 07/31 [place] 7Interpretive Data: RECOMMENDED RANGES FOR PROTIME INR: [facility] 1. 2.0-3.0 for most medical and surgical thromboembolic states. Medical 2.5-3.5 for artificial heart valves and recurrent embolism. Center INR SHOULD BE USED ONLY FOR PATIENTS ON STABLE ANTICOAGULANT THERAPY. BEDSIDE Gluc POC 148 mg/dL 70 - 99 07/31 [place] 1Interpretive [facility] GLUCOSE [facility] Data: Medical TESTING Center Upper Reportable Limit: 200 mg/dL. BEDSIDE Comment1 Notify 07/31 [facility] GLUCOSE RN/ Medical TESTING Center BEDSIDE Gluc POC 192 mg/dL 70 - 99 07/31 [place] 2Interpretive [facility] GLUCOSE [facility] Data: Medical TESTING Center Upper Reportable Limit: 200 mg/dL. BEDSIDE Comment1 Notify 07/31 [facility] GLUCOSE RN/ Medical TESTING Center BEDSIDE Gluc POC 106 mg/dL 70 - 99 07/30 [place] 3Interpretive [facility] GLUCOSE [facility] Data: Medical TESTING Center Upper Reportable Limit: 200 mg/dL. HEMATOLOGY PB Smear Peripheral 07/30 [facility] Path blood Medical smear Center shows hypochromi c anemia with anisopoiki locytsosis , a few elliptocyt es, no increase in schistocyt es, slight polychroma nohemy, mild thrombocyt openia. Impression : (1) no evidence of microangio pathic hemolysis, (2) RBC morphology is sugestive of iron deficiency anemia vs. anemia of chronic disease. CPT: 23782 HEMATOLOGY Platelet 94 K/CMM 133 - 450 07/30 LOW [facility] [place] HEMATOLOGY RDW 16.1 % 11.5 - 07/30 [facility] 14.5 [facility] [place] HEMATOLOGY MPV 9.5 fL 7.4 - 10.4 07/30 Normal [facility] [place] HEMATOLOGY RBC 3.68 M/CMM 4.20 - 07/30 [facility] 5.40 [facility] [place] HEMATOLOGY WBC 5.4 K/CMM 3.7 - 10.4 07/30 Normal [facility] [place] HEMATOLOGY MCV 89.6 fL 81.0 - 07/30 Normal [facility] 99.0 [facility] [place] HEMATOLOGY Hgb 11.0 g/dL 12.0 - 07/30 [facility] 16.0 /2011 [facility] [place] HEMATOLOGY Hct 32.9 % 36.0 - 10 [facility] 48.0 /2011 [facility] [place] HEMATOLOGY MCHC 33.5 g/dL 32.0 - 10 Normal [facility] 36.0 /2011 [facility] [place] HEMATOLOGY MCH 30.0 pg 27.0 - 07/30 Normal [facility] 31.0 /2011 [facility] [place] HEMATOLOGY Lymphocytes 19.2 % 20.0 - 10 [facility] 40.0 /2011 [facility] [place] HEMATOLOGY Segs 65.5 % 45.0 - 10 Normal [facility] 75.0 /2011 [facility] [place] HEMATOLOGY Basophils 0.7 % 0.0 - 1.0 07/30 [facility] [place] HEMATOLOGY Eosinophils 4.1 % 0.0 - 4.0 07/30 [facility] [place] HEMATOLOGY Monocytes 10.5 % 2.0 - 12.0 07/30 [facility] [place] HEMATOLOGY Monocytes # 0.6 K/CMM 0.0 - 0.8 07/30 [facility] [place] HEMATOLOGY Lymphocytes 1.0 K/CMM 1.0 - 5.5 07/30 [facility] HEMATOLOGY Segs-Bands # 3.5 K/CMM 1.5 - 8.1 07/30 [facility] [place] HEMATOLOGY Basophils # 0.0 K/CMM 0.0 - 0.2 07/30 [facility] [place] HEMATOLOGY Eosinophils 0.2 K/CMM 0.0 - 0.5 07/30 [facility] [place] HEMATOLOGY PT 18.3 s 12.0 - 07/30 [facility] 14.7 [facility] [place] HEMATOLOGY INR 1.50 0.85 - 07/30 [place] 8Interpretive Data: RECOMMENDED RANGES FOR PROTIME INR: [facility] . 2.0-3.0 for most medical and surgical thromboembolic states. Medical 2.5-3.5 for artificial heart valves and recurrent embolism. Center INR SHOULD BE USED ONLY FOR PATIENTS ON STABLE ANTICOAGULANT THERAPY. BEDSIDE Comment1 Notify 07/30 NA [facility] GLUCOSE RN/MD /2011 Medical [facility] Center HEMATOLOGY Monocytes # 0.5 K/CMM 0.0 - 0.8 07/30 [facility] [place] HEMATOLOGY Lymphocytes 1.0 K/CMM 1.0 - 5.5 10 Normal [place] # /2012 [facility] [place] HEMATOLOGY Segs-Bands # 2.4 K/CMM 1.5 - 8.1 07/30 Normal /2011 [facility] [place] HEMATOLOGY Eosinophils 0.1 K/CMM 0.0 - 0.5 07/30 Normal [place] # /2011 [facility] Center HEMATOLOGY Basophils # 0.0 K/CMM 0.0 - 0.2 07/30 Normal /2011 [facility] [place] HEMATOLOGY Lymphocytes 23.7 % 20.0 - 10 Normal [place] 40.0 /2011 [facility] [place] HEMATOLOGY Monocytes 11.9 % 2.0 - 12.0 07/30 Normal [facility] [place] HEMATOLOGY Eosinophils 3.2 % 0.0 - 4.0 07/30 Normal [facility] [place] HEMATOLOGY Segs 60.6 % 45.0 - 10 Normal [place] 75.0 /2011 [facility] [place] HEMATOLOGY Basophils 0.6 % 0.0 - 1.0 07/30 Normal [facility] [place] HEMATOLOGY PTT 40.0 s 22.9 - 10 HI 10Interpretiv [place] 35.8 /2011 e Data: [facility] Therapeutic Range: 57 - 92 Seconds HEMATOLOGY PT 19.4 s 12.0 - 10 HI [place] 14.7 [facility] [place] HEMATOLOGY INR 1.62 0.85 - 07/30 [place] 9Interpretive Data: RECOMMENDED RANGES FOR PROTIME INR: [facility] 1.17 /2011 2.0-3.0 for most medical and surgical thromboembolic states. Medical 2.5-3.5 for artificial heart valves and recurrent embolism. Center INR SHOULD BE USED ONLY FOR PATIENTS ON STABLE ANTICOAGULANT THERAPY. HEMATOLOGY MCV 89.0 fL 81.0 - 10 Normal [place] 99.0 /2011 [facility] [place] HEMATOLOGY RDW 15.4 % 11.5 - 10 HI [facility] 14.5 [facility] [place] HEMATOLOGY MCH 30.0 pg 27.0 - 10 Normal [place] 31.0 [facility] [place] HEMATOLOGY MCHC 33.8 g/dL 32.0 - 10 Normal [facility] 36.0 [facility] [place] HEMATOLOGY Platelet 81 K/CMM 133 - 450 10/ LOW [facility] [place] HEMATOLOGY MPV 9.2 fL 7.4 - 10.4 07/30 Normal [facility] [place] HEMATOLOGY RBC 3.50 M/CMM 4.20 - 07/30 [facility] 5.40 /2011 [facility] [place] HEMATOLOGY WBC 4.0 K/CMM 3.7 - 10.4 07/30 Normal [facility] [place] HEMATOLOGY Hgb 10.5 g/dL 12.0 - 07/30 [facility] 16.0 [facility] [place] HEMATOLOGY Hct 31.1 % 36.0 - 07/30 [facility] 48.0 [facility] [place] IMMUNOLOGY Hep Bs Ag Negative Negative 07/30 [facility] [place] (07/29/2012 20:05:00) IMMUNOLOGY Hep A IgM Negative Negative 07/30 [facility] (07/29/2012 20:05:00) IMMUNOLOGY Hep B Core Negative Negative 07/30 [facility] (07/29/2012 20:05:00) IMMUNOLOGY Hep C Ab Negative Negative 07/30 [facility] (07/29/2012 20:05:00) CHEMISTRY AGAP 14.2 meq/L 10.0 - 07/29 Normal [facility] 20.0 [facility] [place] CHEMISTRY Calcium Lvl 9.2 mg/dL 8.5 - 10.5 07/29 Normal [facility] [place] CHEMISTRY CO2 26 meq/L 24 - 32 07/29 [facility] [place] CHEMISTRY Glucose Lvl 143 mg/dL 70 - 99 07/29 [place] 4Interpretive Data: Adult reference range values reflect the clinical guidelines of the [place] [employer]. [facility] [place] CHEMISTRY Chloride Lvl 108 meq/L 95 - 109 07/29 Normal [facility] [place] CHEMISTRY Potassium 4.2 meq/L 3.5 - 5.1 07/[address] [facility] [place] CHEMISTRY Sodium Lvl 144 meq/L 135 - 145 07/29 Normal [facility] [place] CHEMISTRY Creatinine 0.9 mg/dL 0.5 - 1.4 07/[address] [facility] [place] CHEMISTRY BUN 17 mg/dL 7 - 22 07/29 Normal [facility] [place] HEMATOLOGY Eosinophils 3.8 % 0.0 - 4.0 07/29 Normal [facility] [place] HEMATOLOGY Monocytes 12.4 % 2.0 - 12.0 07/29 HI [facility] [place] HEMATOLOGY Lymphocytes 28.6 % 20.0 - 10 Normal [place] 40.0 /2011 [facility] [place] HEMATOLOGY Segs 54.6 % 45.0 - 10 Normal [place] 75.0 /2011 [facility] [place] HEMATOLOGY Segs-Bands # 1.9 K/CMM 1.5 - 8.1 07/29 Normal [facility] [place] HEMATOLOGY Basophils 0.6 % 0.0 - 1.0 07/29 Normal [facility] [place] HEMATOLOGY Eosinophils 0.1 K/CMM 0.0 - 0.5 07/29 Normal [place] # [facility] HEMATOLOGY Monocytes # 0.4 K/CMM 0.0 - 0.8 07/29 Normal [facility] [place] HEMATOLOGY Lymphocytes 1.0 K/CMM 1.0 - 5.5 07/29 Normal [facility] [place] HEMATOLOGY Basophils # 0.0 K/CMM 0.0 - 0.2 07/29 Normal [facility] [place] HEMATOLOGY RDW 15.3 % 11.5 - 07/29 HI [place] 14.5 [facility] [place] HEMATOLOGY Platelet 76 K/CMM 133 - 450 10 LOW [facility] [place] HEMATOLOGY MPV 8.9 fL 7.4 - 10.4 07/29 Normal [facility] [place] HEMATOLOGY MCH 30.3 pg 27.0 - 10 Normal [place] 31.0 [facility] [place] HEMATOLOGY WBC 3.4 K/CMM 3.7 - 10.4 07/29 LOW [facility] [place] HEMATOLOGY RBC 3.45 M/CMM 4.20 - 10 LOW [place] 5.40 /2011 Medical [place] HEMATOLOGY MCHC 34.0 g/dL 32.0 - 10 Normal [place] 36.0 [facility] [place] HEMATOLOGY Hgb 10.4 g/dL 12.0 - 10 LOW [place] 16.0 [facility] [place] HEMATOLOGY Hct 30.7 % 36.0 - 10 LOW [place] 48.0 [facility] [place] HEMATOLOGY MCV 88.9 fL 81.0 - 10 Normal [facility] 99.0 [facility] [place] CHEMISTRY Total CK 75 unit/L 12 - 191 07/27 Normal [facility] [place] CHEMISTRY AGAP 16.3 meq/L 10.0 - 07/27 Normal [place] 20.0 [facility] [place] CHEMISTRY CO2 26 meq/L 24 - 32 07/27 Normal Medical Center CHEMISTRY Calcium Lvl 8.8 mg/dL 8.5 - 10.5 07/27 Normal Medical Center CHEMISTRY Chloride Lvl 105 meq/L 95 - 109 07/27 Normal Medical Center CHEMISTRY BUN 14 mg/dL 7 - 22 07/27 Normal Medical Center CHEMISTRY Creatinine 0.8 mg/dL 0.5 - 1.4 07/27 Normal [facility] Medical Center CHEMISTRY Glucose Lvl 152 mg/dL 70 - 99 07/27 [place] 5Interpretive Data: Adult reference range values reflect the clinical guidelines of the [place] [employer]. Medical Center CHEMISTRY Sodium Lvl 143 meq/L 135 - 145 07/27 Normal Medical Center CHEMISTRY Potassium 4.3 meq/L 3.5 - 5.1 07/27 Normal [facility] Medical Center CHEMISTRY CHD Risk 2.65 3.90 - 07/27 LOW [facility] 5. Medical Center CHEMISTRY LDL 36 mg/dL 0 - 129 07/27 Normal Medical Center CHEMISTRY Trig 123 mg/dL 0 - 200 07/27 Normal Medical Center CHEMISTRY HDL 37 mg/dL >=35 07/27 Normal Medical Center CHEMISTRY Chol 98 mg/dL 120 - 200 07/27 LOW Medical Center HEMATOLOGY PTT 43.9 s 22.9 - 07/24 [place] 11Interpretiv [facility] 35.8 /2011 e Data: [facility] Therapeutic Range: 57 - 92 Seconds CHEMISTRY A/G Ratio 0.9 0.7 - 1.6 07/22 Normal Medical Center CHEMISTRY Globulin 3.4 g/dL 2.0 - 4.0 07/22 Normal Medical Center CHEMISTRY B/C Ratio 15 6 - 25 07/22 Normal Medical Center CHEMISTRY AGAP 14.2 meq/L 10.0 - 07/22 Normal [facility] 20.0 Medical Center CHEMISTRY ALT 18 unit/L 0 - 65 07/22 Normal Medical Center CHEMISTRY Alk Phos 82 unit/L 39 - 136 07/22 Normal Medical Center CHEMISTRY Glucose Lvl 158 mg/dL 70 - 99 07/22 [place] 6Interpretive Data: Adult reference range values reflect the clinical guidelines of the [place] [employer]. Medical Center CHEMISTRY Albumin Lvl 2.9 g/dL 3.5 - 5.0 07/22 LOW [facility] Medical [place] CHEMISTRY Sodium Lvl 139 meq/L 135 - 145 07/22 Normal Medical Center CHEMISTRY Potassium 4.2 meq/L 3.5 - 5.1 07/22 Normal [facility] Medical Center CHEMISTRY BUN 15 mg/dL 7 - 22 07/22 Normal Medical Center CHEMISTRY CO2 27 meq/L 24 - 32 07/22 Normal [facility] Medical Center CHEMISTRY Calcium Lvl 9.1 mg/dL 8.5 - 10.5 07/22 Normal Medical Center CHEMISTRY Creatinine 1.0 mg/dL 0.5 - 1.4 07/22 Normal [facility] Medical Center CHEMISTRY AST 15 unit/L 0 - 37 07/22 Normal [facility] Center CHEMISTRY Total 6.3 g/dL 6.4 - 8.4 07/22 LOW [facility] Medical Center CHEMISTRY Chloride Lvl 102 meq/L 95 - 109 07/22 Normal [facility] [place] CHEMISTRY Bili Total 0.5 mg/dL 0.2 - 1.3 07/22 Normal [facility] Center CHEMISTRY Magnesium 1.5 mg/dL 1.8 - 2.4 07/22 LOW [facility] Center CHEMISTRY Phosphorus 3.4 mg/dL 2.5 - 4.5 07/22 Normal [facility] [place] HEMATOLOGY PTT 38.5 s 22.9 - 07/22 [place] 12Interpretiv [facility] 35.8 /2011 e Data: [facility] Center Therapeutic Range: 57 - 92 Seconds BEDSIDE Comment1 Notify 07/22 NA [facility] GLUCOSE RN/MD /2011 Medical TESTING Center BEDSIDE Gluc POC 189 mg/dL 70 - 99 07/22 [place] 1Interpretive [facility] GLUCOSE Lifscn /2011 Data: Medical TESTING Center Upper Reportable Limit: 200 mg/dL. URINALYSIS UA WBC 78 /HPF 0 - 5 07/22 [place] Medical Center URINALYSIS UA RBC 2 /HPF 0 - 2 07/22 Normal [facility] Center URINALYSIS UA Sq Epi Many /LPF Few 07/22 ABN Medical *ABN* Center (07/21/2012 20:17:00) URINALYSIS UA Luning Yeast Occasional /HPF None Seen 07/22 [facility] Medical *ABN* Center (07/21/2012 20:17:00) URINALYSIS UA Bacteria Few /HPF None Seen 07/22 [facility] Medical *NA* [place] (07/21/2012 20:17:00) URINALYSIS UA Hyal Cast 3 /LPF 0 - 2 07/22 [facility] [place] URINALYSIS UA Leuk Est Large Negative 07/22 [facility] Medical *ABN* [place] (07/21/2012 20:17:00) URINALYSIS UA Nitrite Negative Negative 07/22 Normal [facility] (07/21/2012 20:17:00) Center URINALYSIS UA 2.0 mg/dL 0.1 - 1.0 07/22 [facility] Urobilinogen /2011 [facility] [place] URINALYSIS UA Blood Negative Negative 07/22 Normal [facility] (07/21/2012 20:17:00) Center URINALYSIS UA Bili Negative Negative 07/22 [facility] Medical *NA* [place] (07/21/2012 20:17:00) URINALYSIS UA pH 6.5 5.0 - 8.0 07/22 Normal [facility] [place] URINALYSIS UA Turbidity Slight Clear 07/22 [facility] *ABN* [place] (07/21/2012 20:17:00) URINALYSIS UA Glucose Negative mg/dL Negative 07/22 [facility] *NA* [place] (07/21/2012 20:17:00) URINALYSIS UA Ketones Negative mg/dL Negative 07/22 [facility] Medical *NA* [place] (07/21/2012 20:17:00) URINALYSIS UA Protein Negative mg/dL Negative 07/22 Normal [facility] (07/21/2012 20:17:00) Center URINALYSIS UA Color Yellow Yellow 07/22 [facility] *NA* [place] (07/21/2012 20:17:00) URINALYSIS UA Spec Grav 1.011 <=1.030 07/22 Normal [facility] [place] Microbiolog Culture: 07/22 [facility] y Urine /2011 Medical Center BEDSIDE Gluc POC 158 mg/dL 70 - 99 07/21 [place] 2Interpretive [facility] GLUCOSE Lifscn Data: Medical TESTING Center Upper Reportable Limit: 200 mg/dL. BEDSIDE Gluc POC 212 mg/dL - 07/21 [place] 3Interpretive [facility] GLUCOSE va Data: Medical TESTING Center Upper Reportable Limit: 200 mg/dL. BEDSIDE Comment1 Notify 07/21 NA [facility] GLUCOSE RN/MD Medical TESTING Center CHEMISTRY Ca Norm mgdL 4.80 mg/dL .07/21 Normal [facility] 03.15 Medical Center CHEMISTRY Ca Ion mgdL 4.60 mg/dL 4. - 07/21 LOW [facility] 03.15 Medical Center CHEMISTRY Ca Norm 1.20 1.16 - 07/21 Normal [place] mMol/L 1. Medical Center CHEMISTRY Ca Ion 1.15 . - 07/21 LOW [facility] mMol/L . Medical Center CHEMISTRY CO2 23 meq/L 24 - 07/21 LOW Medical Center CHEMISTRY Calcium Lvl 9.6 mg/dL 8.5 - 10.5 07/21 Normal Medical Center CHEMISTRY BUN 13 mg/dL - 07/21 Normal Medical Center CHEMISTRY Sodium Lvl 141 meq/L 135 - 145 07/21 Normal Medical Center CHEMISTRY Glucose Lvl 156 mg/dL 07/21 [place] 4Interpretive Data: Adult reference range values reflect the clinical guidelines of the [place] [employer]. Medical Center CHEMISTRY Chloride Lvl 105 meq/L 95 - 109 07/21 Normal Medical Center CHEMISTRY Potassium 4.0 meq/L 3.5 - 5.1 07/21 Normal [facility] Medical Center CHEMISTRY Creatinine 0.6 mg/dL 0.5 - 1.4 07/21 Normal [facility] Medical Center CHEMISTRY AGAP 17.0 meq/L 10.0 - 07/21 Normal Medical Center CHEMISTRY Phosphorus 3.3 mg/dL 2.5 - 4.5 07/21 Normal Medical Center CHEMISTRY Magnesium 1.4 mg/dL 1.8 - 2.4 07/21 LOW [facility] Medical Center HEMATOLOGY Monocytes # 0.5 K/CMM 0.0 - 0.8 07/21 Normal Medical Center HEMATOLOGY Eosinophils 0.2 K/CMM 0.0 - 0.5 07/21 Normal [place] # /2011 [facility] Center HEMATOLOGY Basophils # 0.0 K/CMM 0.0 - 0.2 07/21 Normal [facility] [place] HEMATOLOGY Monocytes 8.8 % 2.0 - 12.0 07/21 Normal [facility] [place] HEMATOLOGY Eosinophils 2.5 % 0.0 - 4.0 07/21 Normal [facility] [place] HEMATOLOGY Basophils 0.6 % 0.0 - 1.0 07/21 Normal [facility] [place] HEMATOLOGY Segs-Bands # 4.3 K/CMM 1.5 - 8.1 07/21 Normal [facility] [place] HEMATOLOGY Lymphocytes 1.0 K/CMM 1.0 - 5.5 07/21 Normal [facility] [place] HEMATOLOGY Segs 71.7 % 45.0 - 07/21 Normal [place] 75.0 [facility] [place] HEMATOLOGY Lymphocytes 16.4 % 20.0 - 07/21 [facility] [place] 40.0 [facility] [place] HEMATOLOGY RBC 3.59 M/CMM 4.20 - 07/21 LOW [place] 5.40 [facility] [place] HEMATOLOGY WBC 6.1 K/CMM 3.7 - 10.4 07/21 Normal [facility] [place] HEMATOLOGY RDW 14.5 % 11.5 - 07/21 Normal [place] 14.5 [facility] [place] HEMATOLOGY Platelet 137 K/CMM 133 - 450 07/21 Normal [facility] [place] HEMATOLOGY MPV 8.4 fL 7.4 - 10.4 07/21 Normal [facility] [place] HEMATOLOGY Hgb 10.7 g/dL 12.0 - 07/21 LOW [place] 16.0 [facility] [place] HEMATOLOGY Hct 32.0 % 36.0 - 07/21 LOW [place] 48.0 [facility] [place] HEMATOLOGY MCV 89.1 fL 81.0 - 07/21 Normal [place] 99.0 Medical [place] HEMATOLOGY MCH 29.9 pg 27.0 - 07/21 Normal [place] 31.0 [facility] [place] HEMATOLOGY MCHC 33.5 g/dL 32.0 - 07/21 Normal [facility] 36.0 [facility] [place] HEMATOLOGY INR 1.06 0.85 - 07/21 Normal 13Interpretive Data: RECOMMENDED RANGES FOR PROTIME INR: [place] 1.17 2.0-3.0 for most medical and surgical thromboembolic states. Medical 2.5-3.5 for artificial heart valves and recurrent embolism. Center INR SHOULD BE USED ONLY FOR PATIENTS ON STABLE ANTICOAGULANT THERAPY. HEMATOLOGY PT 14.0 s 12.0 - 07/21 Normal [facility] 14.7 Medical Center BEDSIDE Comment1 Notify 07/21 NA [facility] GLUCOSE RN/MD Medical [facility] Center CHEMISTRY Magnesium 1.7 mg/dL 1.8 - 2.4 07/20 LOW [facility] Center CHEMISTRY Phosphorus 3.6 mg/dL 2.5 - 4.5 07/20 Normal [facility] [place] CHEMISTRY Ca Norm mgdL 5.32 mg/dL 4.65 - 07/20 [facility] 5. [facility] Center CHEMISTRY Ca Ion mgdL 5.08 mg/dL 4.65 - 07/20 Normal [facility] 5. [facility] Center CHEMISTRY Ca Ion 1.27 1.16 - 07/20 Normal [place] mMol/L 1. [facility] Center CHEMISTRY Ca Norm 1.33 1.16 - 07/20 [facility] [place] mMol/L 1.30 [facility] Center CHEMISTRY AGAP 14.1 meq/L 10.0 - 07/20 Normal [facility] 20. [facility] Center CHEMISTRY Glucose Lvl 147 mg/dL 70 - 99 07/20 [place] 5Interpretive Data: Adult reference range values reflect the clinical guidelines of the [place] [employer]. Medical Center CHEMISTRY BUN 13 mg/dL 7 - 22 07/20 Normal [facility] Center CHEMISTRY Potassium 4.1 meq/L 3.5 - 5.1 07/20 Normal [facility] Center CHEMISTRY Creatinine 0.9 mg/dL 0.5 - 1.4 07/[address] [facility] Center CHEMISTRY Sodium Lvl 138 meq/L 135 - 145 07/20 Normal [facility] Center CHEMISTRY Calcium Lvl 9.3 mg/dL 8.5 - 10.5 07/20 Normal [facility] Center CHEMISTRY CO2 27 meq/L 24 - 32 07/20 Normal [facility] Center CHEMISTRY Chloride Lvl 101 meq/L 95 - 109 07/20 Normal [facility] Center HEMATOLOGY Lymphocytes 14.3 % 20.0 - 07/20 LOW [facility] 40.0 [facility] Center HEMATOLOGY Segs 74.5 % 45.0 - 07/20 Normal [facility] 75.0 /2011 [facility] [place] HEMATOLOGY Basophils 0.7 % 0.0 - 1.0 07/20 Normal [facility] [place] HEMATOLOGY Monocytes 7.3 % 2.0 - 12.0 07/20 Normal [facility] [place] HEMATOLOGY Eosinophils 3.2 % 0.0 - 4.0 07/20 Normal [facility] [place] HEMATOLOGY Basophils # 0.1 K/CMM 0.0 - 0.2 07/20 Normal [facility] [place] HEMATOLOGY Monocytes # 0.5 K/CMM 0.0 - 0.8 07/20 Normal [facility] [place] HEMATOLOGY Eosinophils 0.2 K/CMM 0.0 - 0.5 07/20 Normal [facility] [place] HEMATOLOGY Segs-Bands # 5.2 K/CMM 1.5 - 8.1 07/20 Normal [facility] [place] HEMATOLOGY Lymphocytes 1.0 K/CMM 1.0 - 5.5 07/20 Normal [facility] [place] HEMATOLOGY PTT 34.5 s 22.9 - 07/20 Normal 16Interpretiv [facility] 35.8 e Data: [facility] Center Therapeutic Range: 57 - 92 Seconds HEMATOLOGY PT 13.2 s 12.0 - 07/20 Normal [facility] 14.7 [facility] [place] HEMATOLOGY INR 0.98 0.85 - 07/20 Normal 14Interpretive Data: RECOMMENDED RANGES FOR PROTIME INR: [facility] . 2.0-3.0 for most medical and surgical thromboembolic states. Medical 2.5-3.5 for artificial heart valves and recurrent embolism. Center INR SHOULD BE USED ONLY FOR PATIENTS ON STABLE ANTICOAGULANT THERAPY. HEMATOLOGY MCHC 33.4 g/dL 32.0 - 07/20 Normal [facility] 36.0 [facility] [place] HEMATOLOGY MPV 8.3 fL 7.4 - 10.4 07/20 Normal [facility] [place] HEMATOLOGY RDW 14.8 % 11.5 - 07/20 HI [facility] 14.5 [facility] HEMATOLOGY Platelet 151 K/CMM 133 - 450 07/20 Normal [facility] [place] HEMATOLOGY MCH 30.1 pg 27.0 - 07/20 Normal [facility] 31.0 [facility] [place] HEMATOLOGY Hct 34.2 % 36.0 - 07/20 LOW [facility] 48.0 Medical Center HEMATOLOGY RBC 3.79 M/CMM 4.20 - 07/20 LOW [place] 5.40 /2011 Medical Center HEMATOLOGY Hgb 11.4 g/dL 12.0 - 07/20 LOW [facility] 16.0 Medical Center HEMATOLOGY WBC 6.9 K/CMM 3.7 - 10.4 07/20 Normal Medical Center HEMATOLOGY MCV 90.1 fL 81.0 - 07/20 Normal [facility] 99.0 Medical Center CHEMISTRY Ca Norm 1.35 1.16 - 07/19 HI [place] mMol/L 1.30 Medical Center CHEMISTRY Ca Ion mgdL 5.08 mg/dL 4.65 - 07/19 Normal [place] 5. Medical Center CHEMISTRY Ca Norm mgdL 5.40 mg/dL 4.65 - 07/19 HI [facility] 5. Medical Center CHEMISTRY Ca Ion 1.27 1. - 07/19 Normal [place] mMol/L 1. Medical Center CHEMISTRY AGAP 14.1 meq/L 10.0 - 07/19 Normal [facility] 20.0 Medical Center CHEMISTRY Glucose Lvl 163 mg/dL 70 - 99 07/19 [place] 6Interpretive Data: Adult reference range values reflect the clinical guidelines of the [place] [employer]. Medical Center CHEMISTRY Calcium Lvl 9.3 mg/dL 8.5 - 10.5 07/19 Normal Medical Center CHEMISTRY CO2 26 meq/L 24 - 32 07/19 Normal [facility] Center CHEMISTRY Chloride Lvl 102 meq/L 95 - 109 07/19 Normal Medical Center CHEMISTRY Potassium 4.1 meq/L 3.5 - 5.1 07/19 Normal [facility] Medical Center CHEMISTRY BUN 14 mg/dL 7 - 22 07/19 Normal Medical Center CHEMISTRY Sodium Lvl 138 meq/L 135 - 145 07/19 Normal Medical Center CHEMISTRY Creatinine 0.9 mg/dL 0.5 - 1.4 07/19 Normal [facility] Medical Center CHEMISTRY Phosphorus 2.9 mg/dL 2.5 - 4.5 07/19 Normal Medical Center CHEMISTRY Magnesium 1.5 mg/dL 1.8 - 2.4 07/19 LOW [facility] Medical Center CHEMISTRY Troponin-T 0.859 0.000 - 07/19 CRIT 7Result [place] ng/mL 0.100 /2011 Comment: [facility] Result(s) called to ya mckeon07/19/20 12 05:04:48 CDT at _ by tac. Read back OK. HEMATOLOGY Segs-Bands # 4.5 K/CMM 1.5 - 8.1 07/19 Normal [facility] [place] HEMATOLOGY Eosinophils 0.2 K/CMM 0.0 - 0.5 07/19 Normal [place] # /2011 Medical Center HEMATOLOGY Basophils # 0.0 K/CMM 0.0 - 0.2 07/19 Normal [facility] [place] HEMATOLOGY Lymphocytes 0.8 K/CMM 1.0 - 5.5 07/19 LOW [place] # [facility] HEMATOLOGY Monocytes # 0.5 K/CMM 0.0 - 0.8 07/19 Normal [facility] [place] HEMATOLOGY Eosinophils 3.6 % 0.0 - 4.0 07/19 Normal [facility] [place] HEMATOLOGY Segs 75.1 % 45.0 - 07/19 [facility] [place] 75.0 Medical Center HEMATOLOGY Lymphocytes 12.8 % 20.0 - 07/19 LOW [place] 40.0 /2011 Medical Center HEMATOLOGY Basophils 0.7 % 0.0 - 1.0 07/19 Normal [facility] [place] HEMATOLOGY Monocytes 7.8 % 2.0 - 12.0 07/19 Normal [facility] [place] HEMATOLOGY MPV 8.4 fL 7.4 - 10.4 07/19 Normal [facility] [place] HEMATOLOGY RDW 14.7 % 11.5 - 07/19 [facility] [place] 14.5 Medical Center HEMATOLOGY Platelet 142 K/CMM 133 - 450 07/19 Normal Medical [place] HEMATOLOGY MCHC 34.0 g/dL 32.0 - 07/19 [facility] [place] 36.0 Medical Center HEMATOLOGY WBC 6.0 K/CMM 3.7 - 10.4 07/19 Normal [facility] [place] HEMATOLOGY RBC 3.51 M/CMM 4.20 - 07/19 [facility] [place] 5.40 /2011 [facility] [place] HEMATOLOGY MCV 88.0 fL 81.0 - 07/19 Normal [place] 99.0 Medical Center HEMATOLOGY Hgb 10.5 g/dL 12.0 - 07/19 [facility] [place] 16.0 /2011 Medical Center HEMATOLOGY MCH 29.9 pg 27.0 - 07/19 Normal [facility] 31.0 /2011 [facility] [place] HEMATOLOGY Hct 30.9 % 36.0 - 07/19 LOW [facility] 48.0 /2011 [facility] [place] HEMATOLOGY PTT 31.8 s 22.9 - 07/19 Normal 17Interpretiv [facility] 35.8 /2011 e Data: [facility] Therapeutic Range: 57 - 92 Seconds HEMATOLOGY PT 13.3 s 12.0 - 07/19 Normal [facility] 14.7 /2011 [facility] [place] HEMATOLOGY INR 0.99 0.85 - 07/19 Normal 15Interpretive Data: RECOMMENDED RANGES FOR PROTIME INR: [facility] 1.17 2.0-3.0 for most medical and surgical thromboembolic states. Medical 2.5-3.5 for artificial heart valves and recurrent embolism. Center INR SHOULD BE USED ONLY FOR PATIENTS ON STABLE ANTICOAGULANT THERAPY. CHEMISTRY POC A Hct 30.0 % 36.0 - 07/18 LOW [facility] 48.0 [facility] [place] CHEMISTRY POC A O2 Sat 97.0 % 95.0 - 07/18 Normal [facility] 100.0 [facility] [place] CHEMISTRY POC A Na 133 meq/L 135 - 145 07/18 LOW [facility] [place] CHEMISTRY POC A HCO3 27 mMol/L 22 - 26 07/18 [facility] [place] CHEMISTRY POC A BE 4 mMol/L -2-2 - 2 07/18 [facility] [place] CHEMISTRY POC A %FIO2 21.0 % 18.0 - 07/18 Normal [facility] 100.0 [facility] [place] CHEMISTRY POC A Ca Ion 1.21 1.16 - 07/18 Normal [facility] mMol/L 1.30 [facility] [place] CHEMISTRY POC A K 4.0 meq/L 3.5 - 5.1 07/18 Normal [facility] [place] CHEMISTRY POC A PCO2 36 mm[Hg] 35 - 45 07/18 Normal [facility] [place] CHEMISTRY POC A Source ART 07/18 NA [facility] [place] CHEMISTRY POC A Temp 37.0 Erlinda 07/18 NA [facility] [place] CHEMISTRY POC A pH 7.49 7.35 - 07/18 HI [facility] 7.45 [facility] [place] CHEMISTRY POC A PO2 81 mm[Hg] 80 - 100 07/18 Normal [facility] HEMATOLOGY PTT 34.9 s 22.9 - 07/18 Normal 18Interpretiv [facility] [place] 35.8 /2011 e Data: [facility]arin Center Therapeutic Range: 57 - 92 Seconds BLOOD BANK Antibody Negative 07/17 Normal [facility] RESULTS Scrn Medical (07/17/2012 07:00:00) Center BLOOD BANK ABO/Rh O NEG 07/17 Unknown [facility] RESULTS Medical Center CHEMISTRY Troponin-I 3.07 ng/mL 0.00 - 07/17 CRIT 10Result [place] 0.40 Comment: Medical Critical Center Result(s) called to hossein guillory at 07/17/2012 04:01:26 CDT jamie. Read back OK. CHEMISTRY A/G Ratio 0.9 0.7 - 1.6 07/17 Normal [facility] CHEMISTRY Globulin 2.9 g/dL 2.0 - 4.0 07/17 Normal [facility] [place] CHEMISTRY Bili 0.3 mg/dL 0.0 - 1.0 07/17 Normal Indirect [facility] [place] CHEMISTRY AST 29 unit/L 0 - 37 07/17 Normal [facility] [place] CHEMISTRY Bili Direct 0.2 mg/dL 0.0 - 0.3 07/17 Normal [facility] [place] CHEMISTRY Alk Phos 66 unit/L 39 - 136 07/17 Normal [facility] [place] CHEMISTRY Total 5.6 g/dL 6.4 - 8.4 07/17 LOW Protein [facility] [place] CHEMISTRY Bili Total 0.5 mg/dL 0.2 - 1.3 07/17 Normal [facility] [place] CHEMISTRY Albumin Lvl 2.7 g/dL 3.5 - 5.0 07/17 LOW [facility] [place] CHEMISTRY ALT 21 unit/L 0 - 65 07/17 Normal Medical Center CHEMISTRY Total CK 71 unit/L 12 - 191 07/17 Normal Medical Center CHEMISTRY Troponin-T 1.430 0.000 - 07/17 CRIT 8Result [facility] ng/mL 0.100 Comment: Medical Critical Center Result(s) called to hossein guillory at 07/17/2012 04:02:28 CDT jamie. Read back OK. CHEMISTRY Troponin-I 3.51 ng/mL 0.00 - 07/16 CRIT 11Result [place] 0.40 Comment: Medical Critical Center Result(s) called to ESTEBAN GUILLORY at 07/16/2012 19:33:32 CDT by MANINDER. Read back OK. CHEMISTRY Total CK 66 unit/L - 07/16 Normal [facility] [place] CHEMISTRY Troponin-T 1.180 0.000 - 07/16 CRIT 9Result [place] ng/mL 0.100 Comment: Medical critical [place] [phone] (busy line, 2x)07/16/2012 19:31:52 CDT, aamir guillory 07/16/2012 19:34:27 CDT by gissel. read back ok. CHEMISTRY Troponin-I 4.03 ng/mL 0.00 - 07/16 CRIT 12Result [place] 0.40 Comment: Medical Called to [place] Stefani Alexia at 07/16/2012 13:14:12 CDT called by dbf read back ok CHEMISTRY Total CK 70 unit/L - 07/16 Normal [facility] [place] CHEMISTRY CK MB Index 2.4 0.0 - 2.5 07/16 Normal [facility] [place] CHEMISTRY CK MB 2.3 ng/mL 0.5 - 3.6 07/16 Normal [facility] [place] CHEMISTRY CK MB Index 2.8 0.0 - 2.5 07/15 HI [facility] CHEMISTRY CK MB 2.4 ng/mL 0.5 - 3.6 07/15 Normal [facility] [place] CHEMISTRY Total CK 86 unit/L - 07/15 Normal [facility] [place] CHEMISTRY Troponin-T 1.320 0.000 - 07/15 CRIT 4Result [place] ng/mL 0.100 Comment: Medical Critical Center Result(s) called to rachid ford at _2012 17:35:40 CDT by_mynor. Read back OK. CHEMISTRY Troponin-I 4.55 ng/mL 0.00 - 07/15 CRIT 5Result [place] 0.40 Comment: Medical Critical Center Result(s) called to rachid de guzman at 2012 17:53:14 CDT by nk. Read back OK. BEDSIDE Comment1 Notify 07/15 NA [place] GLUCOSE RN/MD /2011 Medical TESTING Center BEDSIDE Gluc POC 172 mg/dL 70 - 99 07/15 HI 1Interpretive [facility] GLUCOSE [facility] /2011 Data: Medical TESTING Center Upper Reportable Limit: 200 mg/dL. CHEMISTRY Phosphorus 2.8 mg/dL 2.5 - 4.5 07/15 Normal [facility] CHEMISTRY T4 Free 1.58 ng/dL 0.76 - 07/15 HI [facility] 1.46 /2011 Medical Center CHEMISTRY TSH 1.120 0.360 - 07/15 Normal [facility] uIU/mL 3.740 Medical Center CHEMISTRY Magnesium 1.7 mg/dL 1.8 - 2.4 07/[address] [facility] CHEMISTRY Hgb A1C 7.3 % [...] 32 unit/L 0 - 37 07/15 Normal [facility] CHEMISTRY Total 5.9 g/dL 6.4 - 8.4 07/15 LOW [facility] Protein Medical Center CHEMISTRY Bili Total 0.6 mg/dL 0.2 - 1.3 07/15 Normal [facility] CHEMISTRY Calcium Lvl 8.8 mg/dL 8.5 - 10.5 07/15 Normal [facility] CHEMISTRY CO2 30 meq/L 24 - 32 07/15 Normal Medical Center CHEMISTRY Glucose Lvl 125 mg/dL 70 - 99 07/15 HI 3Interpretive Data: Adult reference range values reflect the clinical guidelines of the [place] [employer]. Medical Center CHEMISTRY Alk Phos 71 unit/L 39 - 136 07/15 Normal [facility] CHEMISTRY Albumin Lvl 2.6 g/dL 3.5 - 5.0 07/15 LOW [facility] CHEMISTRY ALT 23 unit/L 0 - 65 07/15 Normal Medical Center CHEMISTRY Chloride Lvl 99 meq/L 95 - 109 07/15 Normal Medical Center CHEMISTRY Potassium 4.2 meq/L 3.5 - 5.1 07/15 Normal [facility] l Medical Center CHEMISTRY Sodium Lvl 139 meq/L 135 - 145 07/15 Normal [facility] CHEMISTRY Creatinine 0.8 mg/dL 0.5 - 1.4 07/15 Normal [facility] [place] CHEMISTRY BUN 19 mg/dL 7 - 22 07/15 Normal [facility] [place] CHEMISTRY A/G Ratio 0.8 0.7 - 1.6 07/15 Normal [facility] [place] CHEMISTRY Globulin 3.3 g/dL 2.0 - 4.0 07/15 Normal [facility] [place] CHEMISTRY B/C Ratio 24 6 - 25 07/15 Normal [facility] [place] CHEMISTRY AGAP 14.2 meq/L 10.0 - 07/15 Normal [facility] 20.0 [facility] [place] HEMATOLOGY Basophils # 0.0 K/CMM 0.0 - 0.2 07/15 Normal [facility] [place] HEMATOLOGY Eosinophils 0.3 K/CMM 0.0 - 0.5 07/15 Normal [facility] [place] HEMATOLOGY Monocytes # 0.5 K/CMM 0.0 - 0.8 07/15 Normal [facility] [place] HEMATOLOGY Lymphocytes 1.1 K/CMM 1.0 - 5.5 07/15 Normal [facility] [place] HEMATOLOGY Eosinophils 4.7 % 0.0 - 4.0 07/15 HI [facility] [place] HEMATOLOGY Monocytes 7.7 % 2.0 - 12.0 07/15 Normal [facility] [place] HEMATOLOGY Segs-Bands # 4.0 K/CMM 1.5 - 8.1 07/15 Normal [facility] [place] HEMATOLOGY Basophils 0.5 % 0.0 - 1.0 07/15 Normal [facility] [place] HEMATOLOGY Lymphocytes 18.3 % 20.0 - 07/15 LOW [facility] 40.0 [facility] HEMATOLOGY Segs 68.8 % 45.0 - 07/15 Normal [facility] 75.0 Medical Center HEMATOLOGY PT 13.3 s 12.0 - 07/15 Normal [facility] 14.7 Medical Center HEMATOLOGY PTT 36.8 s 22.9 - 07/15 HI 8Interpretive [place] 35.8 /2012 Data: [facility] Therapeutic Center Range: 57 - 92 Seconds HEMATOLOGY INR 0.99 0.85 - 09/19 Normal 7Interpretive Data: RECOMMENDED RANGES FOR PROTIME INR: [facility] 1. 2.0-3.0 for most medical and surgical thromboembolic states. Medical 2.5-3.5 for artificial heart valves and recurrent embolism. Center INR SHOULD BE USED ONLY FOR PATIENTS ON STABLE ANTICOAGULANT THERAPY. HEMATOLOGY MCV 90.0 fL 81.0 - 07/15 Normal [facility] 99.0 [facility] [place] HEMATOLOGY MCH 30.0 pg 27.0 - 07/15 Normal [facility] 31.0 [facility] [place] HEMATOLOGY Hct 32.3 % 36.0 - 07/15 LOW [facility] 48.0 /2011 [facility] [place] HEMATOLOGY Hgb 10.8 g/dL 12.0 - 07/15 [facility] 16.0 [facility] [place] HEMATOLOGY MPV 8.4 fL 7.4 - 10.4 07/15 Normal /2011 [facility] [place] HEMATOLOGY MCHC 33.3 g/dL 32.0 - 07/15 Normal [facility] 36.0 [facility] [place] HEMATOLOGY Platelet 184 K/CMM 133 - 450 07/15 Normal [facility] [place] HEMATOLOGY RDW 15.1 % 11.5 - 07/15 HI [facility] 14.5 [facility] [place] HEMATOLOGY RBC 3.59 M/CMM 4.20 - 07/15 [facility] 5.40 /2011 [facility] [place] HEMATOLOGY WBC 5.8 K/CMM 3.7 - 10.4 07/15 Normal [facility] /2011 [facility] [place] IMMUNOLOGY Prealbumin 12.1 mg/dL 18.0 - 07/15 [facility] 45.0 [facility] [place] URINALYSIS UA <=1.0 0.1 - 1.0 07/15 [facility] Urobilinogen mg/dL /2011 Medical
*NA*< Center br/>(07/15 06:06:00) <sup> </sup> URINALYSIS UA Mucus Few /LPF None Seen 07/15 [facility] Medical *NA* Center (2012 06:06:00) URINALYSIS UA Bacteria Occasional /HPF None Seen 07/15 [facility] Medical *NA* Center (2012 06:06:00) URINALYSIS UA WBC null 0 - 5 07/15 Normal [facility] [place] URINALYSIS UA RBC 1 /HPF 0 - 2 07/15 Normal [facility] [place] URINALYSIS UA Sq Epi Occasional /LPF Few 07/15 NA Medical *NA* [place] (2012 06:06:00) URINALYSIS UA Leuk Est Negative Negative 07/15 Normal [facility] (2012 06:06:00) Center URINALYSIS UA Glucose Negative mg/dL Negative 07/15 [facility] Medical *NA* [place] (2012 06:06:00) URINALYSIS UA Blood Negative Negative 07/15 Normal [facility] (2012 06:06:00) Center URINALYSIS UA Nitrite Negative Negative 07/15 Normal [facility] (2012 06:06:00) Center URINALYSIS UA Bili Negative Negative 07/15 [facility] Medical *NA* [place] (2012 06:06:00) URINALYSIS UA Ketones Negative mg/dL Negative 07/15 [facility] Medical *NA* [place] (2012 06:06:00) URINALYSIS UA pH 5.0 5.0 - 8.0 07/15 Normal [facility] [place] URINALYSIS UA Spec Grav 1.011 <=1.030 07/15 Normal [facility] [place] URINALYSIS UA Turbidity Clear Clear 07/15 Normal [facility] (2012 06:06:00) Center URINALYSIS UA Protein Negative mg/dL Negative 07/15 Normal [facility] (2012 06:06:00) Center URINALYSIS UA Color Yellow Yellow 07/15 NA Medical *NA* Center (2012 06:06:00) Microbiolog Culture: 07/15 [facility] y Medical Center BEDSIDE Gluc POC 125 mg/dL 70 - 99 07/15 HI 2Interpretive [facility] GLUCOSE [employer] Data: Medical TESTING [place] Upper Reportable Limit: 200 mg/dL. BEDSIDE Comment1 Notify 07/15 [facility] GLUCOSE RN/MD /2011 Medical TESTING Center BEDSIDE Gluc POC 171 mg/dL 70 - 99 07/15 HI 1Interpretive [facility] GLUCOSE [employer] Data: Medical TESTING Center Upper Reportable Limit: 200 mg/dL. BEDSIDE Gluc POC 104 mg/dL 70 - 99 07/14 HI 2Interpretive [facility] GLUCOSE Lifscn Data: Medical TESTING Center Upper Reportable Limit: 200 mg/dL. BEDSIDE Comment1 Notify 07/14 NA [place] GLUCOSE RODRIGUE/ /2012 Medical TESTING Center BEDSIDE Gluc POC 171 mg/dL 70 - 99 07/14 HI 3Interpretive [facility] GLUCOSE Lif[employer]n Data: Medical TESTING Center Upper Reportable Limit: 200 mg/dL. BEDSIDE Comment1 Notify 07/14 NA [place] GLUCOSE RODRIGUE/ /2011 Medical TESTING Center CHEMISTRY Magnesium 1.5 mg/dL 1.8 - 2.4 07/14 LOW [facility] Lvl Medical Center CHEMISTRY AGAP 14.6 meq/L 10.0 - 07/14 Normal [facility] 20.0 Medical Center CHEMISTRY CO2 27 meq/L 24 - 32 07/14 Normal Medical Center CHEMISTRY Potassium 4.6 meq/L 3.5 - 5.1 07/[address] [facility] CHEMISTRY Chloride Lvl 103 meq/L 95 - 109 07/14 Normal Medical Center CHEMISTRY BUN 25 mg/dL 7 - 22 07/14 HI Medical Center CHEMISTRY Glucose Lvl 143 mg/dL 70 - 99 07/14 HI 5Interpretive Data: Adult reference range values reflect the clinical guidelines of the [place] [employer]. Medical Center CHEMISTRY Calcium Lvl 9.2 mg/dL 8.5 - 10.5 07/14 Normal Medical Center CHEMISTRY Creatinine 0.9 mg/dL 0.5 - 1.4 07/[address] [facility] CHEMISTRY Sodium Lvl 140 meq/L 135 - 145 07/14 Normal Medical Center CHEMISTRY Phosphorus 2.8 mg/dL 2.5 - 4.5 07/14 Normal Medical Center CHEMISTRY Ca Norm mgdL 5.44 mg/dL 4.65 - 07/14 [facility] [place] 5.20 /2011 Medical Center CHEMISTRY Ca Norm 1.36 1.16 - 07/14 [facility] [place] mMol/L 1.30 Medical Center CHEMISTRY Ca Ion 1.31 1.16 - 07/14 [facility] [place] mMol/L 1.30 Medical Center CHEMISTRY Ca Ion mgdL 5.24 mg/dL 4.65 - 07/14 HI [place] 5.20 /2011 Medical [place] HEMATOLOGY Basophils 0.3 % 0.0 - 1.0 07/14 Normal [facility] [place] HEMATOLOGY Segs-Bands # 4.7 K/CMM 1.5 - 8.1 07/14 Normal [facility] [place] HEMATOLOGY Monocytes 7.9 % 2.0 - 12.0 07/14 Normal [facility] [place] HEMATOLOGY Eosinophils 3.7 % 0.0 - 4.0 07/14 Normal [facility] [place] HEMATOLOGY Lymphocytes 0.9 K/CMM 1.0 - 5.5 07/14 LOW [facility] # /2011 [facility] [place] HEMATOLOGY Basophils # 0.0 K/CMM 0.0 - 0.2 07/14 Normal [facility] [place] HEMATOLOGY Monocytes # 0.5 K/CMM 0.0 - 0.8 07/14 Normal [facility] [place] HEMATOLOGY Eosinophils 0.2 K/CMM 0.0 - 0.5 07/14 Normal [facility] [place] HEMATOLOGY Lymphocytes 14.8 % 20.0 - 07/14 LOW [facility] 40.0 [facility] [place] HEMATOLOGY Segs 73.3 % 45.0 - 07/14 Normal [facility] 75.0 [facility] [place] HEMATOLOGY INR 1.02 0.85 - 07/14 Normal 16Interpretive Data: RECOMMENDED RANGES FOR PROTIME INR: [facility] 1.17 2.0-3.0 for most medical and surgical thromboembolic states. Medical 2.5-3.5 for artificial heart valves and recurrent embolism. Center INR SHOULD BE USED ONLY FOR PATIENTS ON STABLE ANTICOAGULANT THERAPY. HEMATOLOGY PTT 30.5 s 22.9 - 07/14 Normal 19Interpretiv [facility] 35.8 /2012 e Data: [facility] Therapeutic Range: 57 - 92 Seconds HEMATOLOGY PT 13.6 s 12.0 - 07/14 Normal [facility] 14.7 [facility] [place] HEMATOLOGY RDW 14.4 % 11.5 - 07/14 Normal [facility] 14.5 [facility] [place] HEMATOLOGY MPV 8.6 fL 7.4 - 10.4 07/14 Normal [facility] [place] HEMATOLOGY Platelet 154 K/CMM 133 - 450 07/14 Normal [facility] [place] HEMATOLOGY Hgb 10.3 g/dL 12.0 - 07/14 LOW [facility] 16.0 Medical Center HEMATOLOGY Hct 30.1 % 36.0 - 07/14 LOW [place] 48.0 /2011 Medical Center HEMATOLOGY MCHC 34.4 g/dL 32.0 - 07/14 Normal [place] 36.0 /2011 Medical Center HEMATOLOGY MCH 30.5 pg 27.0 - 07/14 Normal [place] 31.0 /2011 Medical Center HEMATOLOGY MCV 88.7 fL 81.0 - 07/14 Normal [place] 99.0 /2011 Medical Center HEMATOLOGY RBC 3.39 M/CMM 4.20 - 07/14 LOW [place] 5.40 /2011 Medical Center HEMATOLOGY WBC 6.4 K/CMM 3.7 - 10.4 07/14 Normal Medical Center CHEMISTRY Magnesium 2.2 mg/dL 1.8 - 2.4 07/13 Normal [facility] Lvl [facility] Center CHEMISTRY CK MB Index 2.8 0.0 - 2.5 07/13 [facility] Center CHEMISTRY CK MB 2.9 ng/mL 0.5 - 3.6 07/13 Normal [facility] Center CHEMISTRY Total CK 104 unit/L 07/13 Normal [facility] Center CHEMISTRY Troponin-I 11.80 0.00 - 07/13 CRIT 11Result [place] ng/mL 0.40 /2011 Comment: Medical Critical Center Result(s) called to perla dan at _07/13/2012 16:24:24 CDT by_elizabethj. Read back OK. CHEMISTRY Troponin-T 2.370 0.000 - 07/13 CRIT 8Result [place] ng/mL 0.100 /2011 Comment: Medical Critical Center Result(s) called to MS. DAN at 07/13/2012 16:34:32 CDT by MANINDER. Read back OK. CHEMISTRY CK MB Index 3.0 0.0 - 2.5 07/13 HI [facility] Center CHEMISTRY CK MB 3.2 ng/mL 0.5 - 3.6 07/13 Normal [facility] Center CHEMISTRY Total CK 108 unit/L - 07/13 Normal [facility] CHEMISTRY Troponin-I 13.40 0.00 - 07/13 CRIT 12Result [place] ng/mL 0.40 Comment: Medical Critical Center Result(s) called to perla dan at 07/13/2012 13:00:19 CDT_ by_lss. Read back OK. CHEMISTRY Troponin-T 3.090 0.000 - 07/13 CRIT 9Result [facility] ng/mL 0.100 /2011 Comment: Medical Critical Center Result(s) called to Rosalinda Ely at 07/13/2012 13:06:41 CDT by RG. Read back OK. CHEMISTRY Magnesium 1.8 mg/dL 1.8 - 2.4 07/13 Normal [facility] Lvl Medical Center CHEMISTRY Phosphorus 2.9 mg/dL 2.5 - 4.5 07/13 Normal [facility] Center CHEMISTRY Creatinine 1.1 mg/dL 0.5 - 1.4 07/[address] [facility] CHEMISTRY Sodium Lvl 140 meq/L 135 - 145 07/13 Normal [facility] Center CHEMISTRY Glucose Lvl 138 mg/dL 70 - 99 07/13 HI 6Interpretive Data: Adult reference range values reflect the clinical guidelines of the [place] [employer]. Medical Center CHEMISTRY BUN 44 mg/dL 7 - 22 07/13 HI Medical Center CHEMISTRY Potassium 4.6 meq/L 3.5 - 5.1 07/13 Normal [facility] Lvl [facility] Center CHEMISTRY Chloride Lvl 103 meq/L 95 - 109 07/13 Normal [facility] Center CHEMISTRY CO2 24 meq/L 24 - 32 07/13 Normal [facility] Center CHEMISTRY Calcium Lvl 8.9 mg/dL 8.5 - 10.5 07/13 Normal [facility] Center CHEMISTRY AGAP 17.6 meq/L 10.0 - 07/13 Normal [facility] 20.0 Medical Center CHEMISTRY Ca Norm mgdL 4.56 mg/dL 4.65 - 07/13 LOW [facility] 5.20 Medical Center CHEMISTRY Ca Ion mgdL 4.64 mg/dL 4.65 - 07/13 LOW [facility] 5.20 Medical Center CHEMISTRY Ca Norm 1.14 1.16 - 07/13 LOW [place] mMol/L 1.30 Medical Center CHEMISTRY Ca Ion 1.16 1.16 - 07/13 Normal [facility] mMol/L 1.30 [facility] [place] HEMATOLOGY INR 0.99 0.85 - 07/13 Normal 17Interpretive Data: RECOMMENDED RANGES FOR PROTIME INR: [facility] . 2.0-3.0 for most medical and surgical thromboembolic states. Medical 2.5-3.5 for artificial heart valves and recurrent embolism. Center INR SHOULD BE USED ONLY FOR PATIENTS ON STABLE ANTICOAGULANT THERAPY. HEMATOLOGY PTT 28.1 s 22.9 - 07/13 Normal 20Interpretiv [place] 35.8 /2011 e Data: [facility] Therapeutic Range: 57 - 92 Seconds HEMATOLOGY PT 13.3 s 12.0 - 07/13 Normal [place] 14.7 [facility] [place] HEMATOLOGY MPV 9.0 fL 7.4 - 10.4 07/13 Normal /2011 [facility] [place] HEMATOLOGY MCH 30.0 pg 27.0 - 07/13 Normal [place] 31.0 /2011 [facility] [place] HEMATOLOGY MCHC 33.6 g/dL 32.0 - 07/13 [facility] 36.0 /2011 [facility] [place] HEMATOLOGY RDW 14.8 % 11.5 - 07/13 HI [facility] 14.5 [facility] [place] HEMATOLOGY Platelet 127 K/CMM 133 - 450 07/13 [facility] [place] HEMATOLOGY Hct 32.2 % 36.0 - 07/13 [facility] 48.0 /2011 [facility] [place] HEMATOLOGY Hgb 10.8 g/dL 12.0 - 07/13 [facility] 16.0 [facility] [place] HEMATOLOGY RBC 3.61 M/CMM 4.20 - 07/13 [facility] 5.40 /2011 [facility] [place] HEMATOLOGY WBC 6.8 K/CMM 3.7 - 10.4 07/13 Normal /2011 [facility] [place] HEMATOLOGY MCV 89.3 fL 81.0 - 07/13 Normal [facility] 99.0 [facility] [place] HEMATOLOGY Eosinophils 3.0 % 0.0 - 4.0 07/13 Normal [facility] [place] HEMATOLOGY Monocytes 9.4 % 2.0 - 12.0 07/13 Normal /2011 [facility] [place] HEMATOLOGY Segs 74.2 % 45.0 - 07/13 [facility] 75.0 [facility] HEMATOLOGY Lymphocytes 13.0 % 20.0 - 07/13 [facility] 40.0 /2011 [facility] [place] HEMATOLOGY Basophils # 0.0 K/CMM 0.0 - 0.2 07/13 Normal /2011 [facility] [place] HEMATOLOGY Eosinophils 0.2 K/CMM 0.0 - 0.5 07/13 Normal [place] # /2011 [facility] Center HEMATOLOGY Lymphocytes 0.9 K/CMM 1.0 - 5.5 07/13 LOW [place] # /2012 Medical Center HEMATOLOGY Monocytes # 0.6 K/CMM 0.0 - 0.8 07/13 Normal [facility] Center HEMATOLOGY Basophils 0.4 % 0.0 - 1.0 07/13 Normal [facility] [place] HEMATOLOGY Segs-Bands # 5.0 K/CMM 1.5 - 8.1 07/13 Normal [facility] [place] HEMATOLOGY Hgb 10.4 g/dL 12.0 - 07/12 LOW [place] 16.0 /2011 Medical Center HEMATOLOGY Hct 31.1 % 36.0 - 07/12 LOW [place] 48.0 /2011 Medical Center CHEMISTRY Troponin-T 4.890 0.000 - 07/12 CRIT 10Result [place] ng/mL 0.100 /2011 Comment: Medical Critical Center Result(s) called to Rose Lopez_ at 07/12/2012 04:04:00 CDT_ by_mgm. Read back OK. (endorsed by [facility] Tech to release result while in break). CHEMISTRY Troponin-I 30.40 0.00 - 07/12 CRIT 13Result [place] ng/mL 0.40 /2011 Comment: [facility] Result(s) called to florence chung _07/12/2012 03:28:01 CDT by_lg. Read back [place]. CHEMISTRY Total CK 335 unit/L 12 - 191 07/12 [facility] [place] CHEMISTRY CK MB Index 1.9 0.0 - 2.5 07/12 Normal [facility] CHEMISTRY CK MB 6.5 ng/mL 0.5 - 3.6 07/12 [facility] Medical Center CHEMISTRY AGAP 16.2 meq/L 10.0 - 07/12 Normal [place] 20.0 Medical Center CHEMISTRY Chloride Lvl 99 meq/L 95 - 109 07/12 Normal Medical Center CHEMISTRY CO2 23 meq/L 24 - 32 07/12 [facility] CHEMISTRY Calcium Lvl 8.8 mg/dL 8.5 - 10.5 07/12 Normal [facility] CHEMISTRY Creatinine 1.9 mg/dL 0.5 - 1.4 07/12 [facility] [place] Lvl /2011 Medical Center CHEMISTRY Sodium Lvl 134 meq/L 135 - 145 07/12 LOW [facility] CHEMISTRY Potassium 4.2 meq/L 3.5 - 5.1 07/12 Normal [facility] Lvl Medical Center CHEMISTRY Glucose Lvl 167 mg/dL 70 - 99 07/12 [place] 7Interpretive Data: Adult reference range values reflect the clinical guidelines of the [place] [employer]. Medical Center CHEMISTRY BUN 60 mg/dL 7 - 22 07/12 [place] [facility] CHEMISTRY Phosphorus 4.2 mg/dL 2.5 - 4.5 07/12 Normal [facility] [place] CHEMISTRY Ca Norm mgdL 4.48 mg/dL 4.65 - 07/12 LOW [place] 5. [facility] CHEMISTRY Ca Ion mgdL 4.60 mg/dL 4.65 - 07/12 LOW [facility] 5. [facility] CHEMISTRY Ca Norm 1.12 1.16 - 07/12 LOW [place] mMol/L 1.30 [facility] CHEMISTRY Ca Ion 1.15 1.16 - 07/12 LOW [facility] mMol/L 1.30 [facility] HEMATOLOGY PTT 28.2 s 22.9 - 07/12 Normal 21Interpretiv [facility] 35.8 e Data: [facility] Therapeutic Range: 57 - 92 Seconds HEMATOLOGY PT 13.3 s 12.0 - 07/12 Normal [facility] 14.7 [facility] [place] HEMATOLOGY INR 0.99 0.85 - 07/12 Normal 18Interpretive Data: RECOMMENDED RANGES FOR PROTIME INR: [facility] . 2.0-3.0 for most medical and surgical thromboembolic states. Medical 2.5-3.5 for artificial heart valves and recurrent embolism. Center INR SHOULD BE USED ONLY FOR PATIENTS ON STABLE ANTICOAGULANT THERAPY. HEMATOLOGY WBC 8.9 K/CMM 3.7 - 10.4 07/12 Normal [facility] HEMATOLOGY RBC 3.60 M/CMM 4.20 - 07/12 LOW [facility] 5.40 /2011 [facility] HEMATOLOGY MCV 88.5 fL 81.0 - 07/12 Normal [facility] 99.0 Medical Center HEMATOLOGY MCH 29.8 pg 27.0 - 07/12 Normal [facility] 31.0 Medical Center HEMATOLOGY MCHC 33.7 g/dL 32.0 - 07/12 Normal [facility] 36.0 [facility] HEMATOLOGY MPV 8.8 fL 7.4 - 10.4 07/12 Normal [facility] [place] HEMATOLOGY RDW 14.6 % 11.5 - 07/12 [place] 14.5 [facility] HEMATOLOGY Platelet 143 K/CMM 133 - 450 07/12 Normal [facility] HEMATOLOGY Basophils # 0.0 K/CMM 0.0 - 0.2 07/12 Normal [facility] [place] HEMATOLOGY Lymphocytes 11.6 % 20.0 - 07/12 LOW [place] 40.0 /2011 [facility] HEMATOLOGY Monocytes 7.4 % 2.0 - 12.0 07/12 Normal [place] /2011 [facility] HEMATOLOGY Eosinophils 3.1 % 0.0 - 4.0 07/12 Normal /2011 [facility] [place] HEMATOLOGY Lymphocytes 1.0 K/CMM 1.0 - 5.5 07/12 Normal [facility] # /2011 [facility] HEMATOLOGY Monocytes # 0.7 K/CMM 0.0 - 0.8 07/12 Normal /2011 [facility] [place] HEMATOLOGY Basophils 0.3 % 0.0 - 1.0 07/12 Normal [facility] [place] HEMATOLOGY Eosinophils 0.3 K/CMM 0.0 - 0.5 07/12 Normal [facility] # /2011 [facility] [place] HEMATOLOGY Segs-Bands # 6.9 K/CMM 1.5 - 8.1 07/12 Normal [facility] [place] HEMATOLOGY Segs 77.6 % 45.0 - 07/12 [facility] 75.0 [facility] BLOOD BANK Antibody Negative 07/11 Normal [facility] RESULTS Scr Medical (07/11/2012 15:15:00) Center BLOOD BANK ABO/Rh O NEG 07/11 Unknown [facility] RESULTS [facility] BLOOD BANK RBC product Product available 07/11 Normal [facility] RESULTS /2011 Medical (07/11/2012 12:54:00) Center CHEMISTRY eGFR 22 [...] are reported in Aspirin Reaction Units (ARU). [facility] Plt /2011 Medical [id number] ARU [...] PRU reference range is 194 - 418. [facility] Medical Post Drug Results: Lower [...] Folate Lvl 17.7 ng/mL >=3.0 07/10 Normal [facility]2011 [facility] CHEMISTRY Vitamin B12 420 pg/mL 254 - 1320 07/10 Normal [facility] CHEMISTRY FTI 2.7 07/[address] CHEMISTRY U Opiate Scr Positive Negative 07/10 [facility] *ABN* [place] (07/09/2012 21:33:00) CHEMISTRY U Benzodia Positive Negative 07/10 [facility] Medical *ABN* [place] (07/09/2012 21:33:00) CHEMISTRY U Phencyc Negative Negative 07/10 [facility] *NA* [place] (07/09/2012 21:33:00) CHEMISTRY UDS Note See Note [...] CHEMISTRY U Cocaine Negative Negative 07/10 NA [facility] Scr [facility] (07/09/2012 21:33:00) CHEMISTRY U Cannab Scr Negative Negative 07/10 [facility]* [place] (07/09/2012 21:33:00) CHEMISTRY U Amph Scr Negative Negative 07/10 [facility]* [place] (07/09/2012 21:33:00) CHEMISTRY U Kaye Scr Negative Negative 07/10 [facility] [place] (07/09/2012 21:33:00) CHEMISTRY T3 Uptake 34 % 31 - 39 07/10 Normal [facility] [place] CHEMISTRY TSH 0.624 0.360 - 07/10 Normal [facility] uIU/mL 3.740 [facility] [place] CHEMISTRY T4 7.9 ug/dl 4.7 - 13.3 07/10 Normal [facility]2011 [facility] [place] CHEMISTRY CHD Risk 4.41 3.90 - 07/10 Normal [facility] 5.80 [facility] [place] CHEMISTRY LDL 97 mg/dL 0 - 129 07/10 Normal [facility]2011 [facility] CHEMISTRY Trig 147 mg/dL 0 - 200 07/10 Normal [facility] [place] CHEMISTRY Chol 163 mg/dL 120 - 200 07/10 Normal [facility]2011 [facility] [place] CHEMISTRY HDL 37 mg/dL >=35 07/10 Normal [facility]2011 [facility] [place] CHEMISTRY Hgb A1C 7.8 % 07/10 14Interpretive [...] 4.2 meq/L 3.5 - 5.1 07/09 Normal [facility] [place] CHEMISTRY POC A Ca Ion 1.18 1.16 - 07/09 Normal [facility] mMol/L 1.30 [facility] [place] CHEMISTRY POC A LA 1.7 mMol/L 0.5 - 2.2 07/09 Normal [facility] [place] CHEMISTRY POC A Hct 30.0 % 36.0 - 07/09 LOW [facility] 48.0 [facility] [place] CHEMISTRY POC A Na 131 meq/L 135 - 145 07/09 LOW [facility] [place] CHEMISTRY POC A Glu 225 mg/dL 70 - 99 07/09 [facility] [place] CHEMISTRY POC A PO2 123 mm[Hg] 80 - 100 07/09 [facility] [place] CHEMISTRY POC A PCO2 33 mm[Hg] 35 - 45 07/09 LOW [facility] [place] CHEMISTRY POC A O2 Sat 99.0 % 95.0 - 07/09 Normal [facility] 100.0 [facility] [place] CHEMISTRY POC A HCO3 26 mMol/L 22 - 26 07/09 Normal [facility] [place] CHEMISTRY POC A BE 3 mMol/L -2-2 - 2 07/09 [facility] [place] CHEMISTRY POC A Temp 37.0 [place] 07/09 NA [facility] [place] CHEMISTRY POC A Source ART 07/09 NA [facility] [place] CHEMISTRY POC A pH 7.51 7.35 - 07/09 [facility] 7.45 [facility] [place] CHEMISTRY Myoglobin 199 ng/mL 25 - 72 07/09 [facility] [place] HEMATOLOGY Plt Morph Normal 07/09 Normal Medical (07/09/2012 17:24:00) Center HEMATOLOGY RBC Morph Normal 07/09 Normal Medical (07/09/2012 17:24:00) Center BEDSIDE Comment2 Notify 07/09 [facility] GLUCOSE RN/MD /2011 Medical TESTING Center BLOOD BANK Platelet Product available 07/09 Normal [facility] RESULTS Medical (07/09/2012 07:43:00) Center BLOOD BANK Antibody Negative 07/07 Normal [facility] RESULTS Scrn Medical (07/07/2012 06:10:00) Center BLOOD BANK ABO/Rh O NEG 07/07 Unknown [facility] [place] CHEMISTRY A/G Ratio 1.3 0.7 - 1.6 07/06 Normal [facility] [place] CHEMISTRY B/C Ratio 22 6 - 25 07/06 Normal [facility] [place] CHEMISTRY Globulin 3.0 g/dL 2.0 - 4.0 07/06 Normal [facility] [place] CHEMISTRY AST 19 unit/L 0 - 37 07/06 Normal [facility] [place] CHEMISTRY Total 6.9 g/dL 6.4 - 8.4 07/06 Normal [facility] Protein [facility] [place] CHEMISTRY Bili Total 0.4 mg/dL 0.2 - 1.3 07/06 Normal [facility] [place] CHEMISTRY ALT 24 unit/L 0 - 65 07/06 Normal [facility] [place] CHEMISTRY Albumin Lvl 3.9 g/dL 3.5 - 5.0 07/06 Normal [facility] [place] CHEMISTRY Alk Phos 68 unit/L 39 - 136 07/06 Normal [facility] [place] Vital Signs Vital Sign Value Date Comments Source Systolic (mm Hg) 134 05/01/2018 [facility] Diastolic (mm Hg) 61 05/01/2018 [facility] Respitory Rate 20 05/01/2018 [facility] Systolic (mm Hg) 144 05/01/2018 [facility] Diastolic (mm Hg) 61 05/01/2018 [facility] Respitory Rate 20 05/01/2018 [facility] Systolic (mm Hg) 145 05/01/2018 [facility] Diastolic (mm Hg) 63 05/01/2018 [facility] Respitory Rate 20 05/01/2018 [facility] Temperature Oral (F) 99 F 05/01/2018 [facility] Temperature Oral (F) 96.9 F 05/01/2018 [facility] Temperature Oral (F) 99.2 F 05/01/2018 [facility] Weight 64.091 04/25/2018 [facility] BMI Calculated 25.03 04/25/2018 [facility] Height 160.02 cm 04/25/2018 [facility] Height 158.24 cm 04/22/2018 [facility] Weight 65.568 04/22/2018 [facility] BMI Calculated 26.19 04/22/2018 [facility] Temperature Oral (F) 97.9 F 04/22/2018 [facility] Respitory Rate 18 04/22/2018 [facility] Heart Rate 92 04/22/2018 [facility] Systolic (mm Hg) 107 04/22/2018 [facility] Diastolic (mm Hg) 64 04/22/2018 [facility] BMI Calculated 26.33 04/02/2018 [facility] Height 158.5 cm 04/02/2018 [facility] Systolic (mm Hg) 127 04/02/2018 [facility] Diastolic (mm Hg) 67 04/02/2018 [facility] Weight 66.136 04/02/2018 [facility] Heart Rate 56 04/02/2018 [facility] Respitory Rate 18 04/02/2018 [facility] Temperature Oral (F) 97.0 F 04/02/2018 [facility] Height 158.6 cm 04/02/2018 [facility] BMI Calculated 28.91 04/02/2018 [facility] Weight 72.727 04/02/2018 [facility] Systolic (mm Hg) 120 04/02/2018 [facility] Diastolic (mm Hg) 71 04/02/2018 [facility] Heart Rate 73 04/02/2018 [facility] Temperature Oral (F) 98.1 F 04/02/2018 [facility] Systolic (mm Hg) 138 03/19/2018 [facility] Diastolic (mm Hg) 71 03/19/2018 [facility] Temperature Oral (F) 78 F 03/19/2018 [facility] Heart Rate 75 03/19/2018 [facility] Respitory Rate 17 03/19/2018 [facility] BMI Calculated 25.55 03/19/2018 [facility] Height 158.6 cm 03/19/2018 [facility] Weight 64.273 03/19/2018 [facility] Height 158.6 cm 03/19/2018 [facility] BMI Calculated 25.5 03/19/2018 [facility] Weight 64.148 03/19/2018 [facility] Heart Rate 79 03/19/2018 [facility] Temperature Oral (F) 98.2 F 03/19/2018 [facility] Respitory Rate 18 03/19/2018 [facility] Systolic (mm Hg) 109 03/19/2018 [facility] Diastolic (mm Hg) 61 03/19/2018 [facility] Respitory Rate 16 03/02/2018 [facility] Heart Rate 84 03/02/2018 [facility] Systolic (mm Hg) 127 03/02/2018 [facility] Diastolic (mm Hg) 66 03/02/2018 [facility] Height 158.6 cm 03/02/2018 [facility] Weight 62.273 03/02/2018 [facility] BMI Calculated 24.76 03/02/2018 [facility] Systolic (mm Hg) 102 02/11/2018 [facility] Diastolic (mm Hg) 60 02/11/2018 [facility] Heart Rate 77 02/11/2018 [facility] Weight 60.938 02/11/2018 [facility] BMI Calculated 24.23 02/11/2018 [facility] Height 158.6 cm 02/11/2018 [facility] Temperature Oral (F) 98.2 F 02/11/2018 [facility] Respitory Rate 16 02/11/2018 [facility] Systolic (mm Hg) 136 02/06/2018 [facility] Diastolic (mm Hg) 79 02/06/2018 [facility] Temperature Oral (F) 97.1 F 02/06/2018 [facility] Respitory Rate 20 02/06/2018 [facility] Systolic (mm Hg) 121 02/06/2018 [facility] Diastolic (mm Hg) 56 02/06/2018 [facility] Respitory Rate 20 02/06/2018 [facility] Temperature Oral (F) 96.8 F 02/06/2018 [facility] Systolic (mm Hg) 115 02/06/2018 [facility] Diastolic (mm Hg) 58 02/06/2018 [facility] Respitory Rate 22 02/06/2018 [facility] Temperature Oral (F) 96.7 F 02/06/2018 [facility] Weight 63.273 01/27/2018 [facility] BMI Calculated 24.93 01/27/2018 [facility] Weight 63.835 01/27/2018 [facility] Height 160.02 cm 01/27/2018 [facility] Heart Rate 80 01/26/2018 [facility] Heart Rate 82 01/26/2018 [facility] Heart Rate 82 01/26/2018 [facility] Weight 63.636 01/26/2018 [facility] BMI Calculated 24.85 01/26/2018 [facility] Height 160.02 cm 01/26/2018 [facility] Height 158.6 cm 01/26/2018 [facility] BMI Calculated 25.41 01/26/2018 [facility] Weight 63.909 01/26/2018 [facility] Temperature Oral (F) 98.5 F 01/26/2018 [facility] Heart Rate 82 01/26/2018 [facility] Respitory Rate 16 01/26/2018 [facility] Systolic (mm Hg) 113 01/26/2018 [facility] Diastolic (mm Hg) 63 01/26/2018 [facility] BMI Calculated 24.31 01/19/2018 [facility] Weight 63.727 01/19/2018 [facility] Height 161.9 cm 01/19/2018 [facility] Temperature Oral (F) 97.7 F 01/19/2018 [facility] Respitory Rate 16 01/19/2018 [facility] Heart Rate 83 01/19/2018 [facility] Systolic (mm Hg) 104 01/19/2018 [facility] Diastolic (mm Hg) 51 01/19/2018 [facility] Weight 61.96 01/12/2018 [facility] BMI Calculated 24.2 01/12/2018 [facility] Height 160.02 cm 01/12/2018 [facility] Temperature Oral (F) 96.9 F 01/12/2018 [facility] Respitory Rate 18 01/12/2018 [facility] Heart Rate 80 01/12/2018 [facility] Systolic (mm Hg) 98 01/12/2018 [facility] Diastolic (mm Hg) 49 01/12/2018 [facility] Systolic (mm Hg) 120 01/05/2018 [facility] Diastolic (mm Hg) 58 01/05/2018 [facility] Respitory Rate 18 01/05/2018 [facility] Systolic (mm Hg) 122 01/05/2018 [facility] Diastolic (mm Hg) 60 01/05/2018 [facility] Systolic (mm Hg) 123 01/05/2018 [facility] Diastolic (mm Hg) 57 01/05/2018 [facility] Respitory Rate 18 01/05/2018 [facility] Temperature Oral (F) 97.4 F 01/05/2018 [facility] Respitory Rate 17 01/05/2018 [facility] Temperature Oral (F) 97.6 F 01/05/2018 [facility] Temperature Oral (F) 97.6 F 01/05/2018 [facility] BMI Calculated 25.03 01/01/2018 [facility] Weight 64.091 01/01/2018 [facility] Height 160.02 cm 01/01/2018 [facility] BMI Calculated 24.56 12/11/2017 [facility] Weight 62.898 12/11/2017 [facility] Height 160.02 cm 12/11/2017 [facility] Systolic (mm Hg) 125 12/11/2017 [facility] Diastolic (mm Hg) 63 12/11/2017 [facility] Temperature Oral (F) 97.1 F 12/11/2017 [facility] Heart Rate 97 12/11/2017 [facility] Respitory Rate 18 12/11/2017 [facility] Weight 64.182 12/08/2017 [facility] Height 160 cm 12/08/2017 [facility] BMI Calculated 25.07 12/08/2017 [facility] Systolic (mm Hg) 109 12/08/2017 [facility] Diastolic (mm Hg) 46 12/08/2017 [facility] Respitory Rate 18 12/08/2017 [facility] Heart Rate 84 12/08/2017 [facility] Temperature Oral (F) 98.1 F 12/08/2017 [facility] Heart Rate 64 11/29/2017 [facility] Systolic (mm Hg) 110 11/29/2017 [facility] Diastolic (mm Hg) 64 11/29/2017 [facility] Respitory Rate 18 11/29/2017 [facility] Temperature Oral (F) 98.2 F 11/29/2017 [facility] Heart Rate 66 11/29/2017 [facility] Respitory Rate 18 11/29/2017 [facility] Temperature Oral (F) 97.6 F 11/29/2017 [facility] Systolic (mm Hg) 109 11/29/2017 [facility] Diastolic (mm Hg) 58 11/29/2017 [facility] Systolic (mm Hg) 122 11/29/2017 [facility] Diastolic (mm Hg) 58 11/29/2017 [facility] Respitory Rate 20 11/29/2017 [facility] Temperature Oral (F) 98.5 F 11/29/2017 [facility] Heart Rate 74 11/29/2017 [facility] Weight 66.818 11/25/2017 [facility] BMI Calculated 27.3 11/20/2017 [facility] Weight 69.909 11/20/2017 [facility] Height 160.02 cm 11/20/2017 [facility] Systolic (mm Hg) 110 11/02/2017 [facility] Diastolic (mm Hg) 53 11/02/2017 [facility] Respitory Rate 32 11/02/2017 [facility] Systolic (mm Hg) 110 11/02/2017 [facility] Diastolic (mm Hg) 53 11/02/2017 [facility] Respitory Rate 23 11/02/2017 [facility] Systolic (mm Hg) 104 11/02/2017 [facility] Diastolic (mm Hg) 52 11/02/2017 [facility] Respitory Rate 23 11/02/2017 [facility] Temperature Oral (F) 98 F 11/02/2017 [facility] Temperature Oral (F) 98.6 F 11/01/2017 [facility] Height 158.24 cm 10/31/2017 [facility] Temperature Oral (F) 98.3 F 10/31/2017 [facility] Heart Rate 85 10/31/2017 [facility] Heart Rate 76 10/31/2017 [facility] Heart Rate 84 10/31/2017 [facility] BMI Calculated 28.94 10/29/2017 [facility] Height 158.24 cm 10/29/2017 [facility] Weight 72.455 10/29/2017 [facility] Weight 71.989 10/29/2017 [facility] BMI Calculated 28.75 10/29/2017 [facility] Heart Rate 80 10/29/2017 [facility] Systolic (mm Hg) 136 10/29/2017 [facility] Diastolic (mm Hg) 72 10/29/2017 [facility] Temperature Oral (F) 96.8 F 10/29/2017 [facility] Respitory Rate 18 10/29/2017 [facility] Height 158.24 cm 10/29/2017 [facility] Height 157.48 cm 10/21/2017 [facility] BMI Calculated 28.96 10/21/2017 [facility] Weight 71.818 10/21/2017 [facility] Systolic (mm Hg) 116 10/14/2017 [facility] Diastolic (mm Hg) 60 10/14/2017 [facility] Temperature Oral (F) 97.8 F 10/14/2017 [facility] Height 159.77 cm 10/14/2017 [facility] Weight 72.301 10/14/2017 [facility] BMI Calculated 28.32 10/14/2017 [facility] Respitory Rate 18 05/29/2016 [facility] Systolic (mm Hg) 156 05/29/2016 [facility] Diastolic (mm Hg) 73 05/29/2016 [facility] Systolic (mm Hg) 142 05/29/2016 [facility] Diastolic (mm Hg) 70 05/29/2016 [facility] Respitory Rate 19 05/29/2016 [facility] Systolic (mm Hg) 150 05/29/2016 [facility] Diastolic (mm Hg) 77 05/29/2016 [facility] Respitory Rate 19 05/29/2016 [facility] Height 165.1 cm 05/29/2016 [facility] Weight 78.636 05/29/2016 [facility] BMI Calculated 28.85 05/29/2016 [facility] Diastolic (mm Hg) 88 01/20/2013 [facility] Systolic (mm Hg) 163 01/20/2013 [facility] Temperature Oral (F) 98.2 F 01/20/2013 [facility] Systolic (mm Hg) 154 01/20/2013 [facility] Diastolic (mm Hg) 93 01/20/2013 [facility] Systolic (mm Hg) 172 01/20/2013 [facility] Diastolic (mm Hg) 78 01/20/2013 [facility] Temperature Oral (F) 98.2 F 01/20/2013 [facility] Respitory Rate 12 01/19/2013 [facility] Respitory Rate 12 01/19/2013 [facility] Respitory Rate 12 01/19/2013 [facility] Temperature Oral (F) 97.7 F 01/19/2013 [facility] Weight 81.818 01/19/2013 [facility] Height 165.1 cm 01/19/2013 [facility] Systolic (mm Hg) 108 07/31/2012 [facility] Diastolic (mm Hg) 60 07/31/2012 [facility] Heart Rate 86 07/31/2012 [facility] Systolic (mm Hg) 112 07/31/2012 [facility] Respitory Rate 20 07/31/2012 [facility] Heart Rate 83 07/31/2012 [facility] Temperature Oral (F) 98.3 F 07/31/2012 [facility] Systolic (mm Hg) 113 07/31/2012 [facility] Diastolic (mm Hg) 68 07/31/2012 [facility] Respitory Rate 20 07/31/2012 [facility] Heart Rate 89 07/31/2012 [facility] Temperature Oral (F) 99.2 F 07/31/2012 [facility] Temperature Oral (F) 99.0 F 07/31/2012 [facility] Respitory Rate 20 07/31/2012 [facility] Diastolic (mm Hg) 69 07/31/2012 [facility] Weight 86.364 07/22/2012 [facility] Height 162.56 cm 07/22/2012 [facility] Systolic (mm Hg) 118 07/21/2012 [facility] Diastolic (mm Hg) 64 07/21/2012 [facility] Temperature Oral (F) 98.7 F 07/21/2012 [facility] Systolic (mm Hg) 107 07/21/2012 [facility] Diastolic (mm Hg) 57 07/21/2012 [facility] Diastolic (mm Hg) 72 07/21/2012 [facility] Systolic (mm Hg) 130 07/21/2012 [facility] Temperature Oral (F) 97.8 F 07/21/2012 [facility] Temperature Oral (F) 98.5 F 07/21/2012 [facility] Respitory Rate 18 07/20/2012 [facility] Respitory Rate 18 07/20/2012 [facility] Respitory Rate 18 07/20/2012 [facility] Weight 67 07/16/2012 [facility] Heart Rate 82 2012 [facility] Height 165.1 cm 2012 [facility] Weight 82.273 2012 [facility] Diastolic (mm Hg) 84 2012 [facility] Systolic (mm Hg) 123 2012 [facility] Temperature Oral (F) 99.1 F 2012 [facility] Heart Rate 123 2012 [facility] Respitory Rate 18 2012 [facility] Heart Rate 61 2012 [facility] Diastolic (mm Hg) 83 2012 [facility] Systolic (mm Hg) 136 2012 [facility] Diastolic (mm Hg) 58 2012 [facility] Systolic (mm Hg) 111 2012 [facility] Heart Rate 89 2012 [facility] Respitory Rate 20 2012 [facility] Temperature Oral (F) 98.5 F 2012 [facility] Respitory Rate 20 2012 [facility] Temperature Oral (F) 98.5 F 2012 [facility] Height 165.10 cm 2012 [facility] Weight 82.273 2012 [facility] Diastolic (mm Hg) 55 2012 [facility] Systolic (mm Hg) 108 2012 [facility] Systolic (mm Hg) 122 2012 [facility] Diastolic (mm Hg) 55 2012 [facility] Temperature Oral (F) 98.4 F 2012 [facility] Diastolic (mm Hg) 74 07/14/2012 [facility] Systolic (mm Hg) 132 07/14/2012 [facility] Temperature Oral (F) 98.8 F 07/14/2012 [facility] Temperature Oral (F) 98.6 F 07/14/2012 [facility] Respitory Rate 18 07/13/2012 [facility] Respitory Rate 19 07/13/2012 [facility] Respitory Rate 17 07/13/2012 [facility] Heart Rate 98 07/09/2012 [facility] Heart Rate 99 07/09/2012 [facility] Heart Rate 80 07/09/2012 [facility] Weight 88.182 07/07/2012 [facility] Height 162.56 cm 07/07/2012 [facility] Weight 88.182 07/06/2012 [facility] Height 162.56 cm 07/06/2012 [facility] Weight 88.182 07/06/2012 [facility] Height 162.56 cm 07/06/2012 [facility] Encounters Location Location Encounter Encounter Reason Attending ADM DC Status Source Details Type Number For Provider Date Date Visit [facility] Inpatient [id number] LUMBAR SASCHA 07/09 07/14 Active [facility] 0 RADICULO REBEKA /2011 [facility] [place] [id number] MEILANI 07/14 07/15 Active 2 MAPA /2011 [facility] Inpatient [id number] LUMBAR JORGE 07/15 07/21 Active [facility] 3 RAD GAURANG /2011 [facility] [place] [id number] SCI MEILANI 07/21 07/31 Active 9 MAPA Rehabili tation [facility] WOJCIECH [id number] NADA GAUTAM 01/19 01/20 Active [facility] MH Outpt Diag [id number] Wagner 04/20 04/21 [facility] 2 Morgan /2013 [facility] [id number] Ali 05/29 05/29 [facility] Outpatient 2 Denktas /2015 [facility] Outpatient [id number] Biswajit 10/14 10/15 [facility] 4 Сергей [facility] [id number] Biswajit 10/21 10/22 [facility] [place] 6 Сергей [facility] Phone [id number] 10/28 10/30 [facility] Message [facility] Advanced Heart Heart Failure Failure [facility] Outpatient [id number] Biswajit 10/29 10/30 [facility] 4 Сергей [facility] Inpatient [id number] Biswajit 10/29 11/02 [facility] 3 Сергей [facility] Inpatient [id number] Biswajit 11/19 11/29 [place] [facility] 0 [facility] Recurring [id number] David Benedict 12/08 01/07 [facility] [place] 0 Medical Oncology Center [facility] Outpatient [id number] Biswajit 12/11 12/12 [facility] [place] 1 Сергей [facility]patient [id number] Jim 01/01 01/06 [facility] Julian 6 Ramos [facility] Outpatient [id number] Biswajit 01/12 01/13 [facility] 4 [facility] Rec[facility] [id number] David Benedict 01/19 02/18 [facility] [place] [facility] Center [facility] Outpt Diag [id number] David Benedict 01/21 01/22 [facility] Outpatient [facility] Inpatient [id number] Gregor 01/26 02/06 [facility] [place] 8 [facility] Outpt Diag [id number] David Benedict 02/02 02/02 [facility] [id number] David Benedict 03/02 04/01 [facility] [id number] David Benedict 04/02 04/03 [facility] Outpatient Services [facility] [id number] David Benedict 04/02 05/02 [facility] [place] Medical Oncology [facility] Outpatient [id number] John 04/02 04/03 [facility] [place] 8 [facility] [id number] John 04/22 04/23 [facility] [place] 7 [facility] Advanced Heart Failure [facility] Inpatient [id number] Marwan 04/25 05/01 [facility] 1 Jume [facility] Procedures Procedure Code Date Perfomer Comments [place], [place] [id number] 02/02/2018 [facility] retroperitoneal mass, Medical percutaneous needle Center 11/28/2017 [facility] Biopsy, bone, trocar, 11/28/2017 [facility] or needle; deep (eg, Medical vertebral body, Center femur) [place], [place] [address] 11/28/2017 [facility] retroperitoneal mass, Medical percutaneous needle Center Bi[place], [place] [address] 11/25/2017 [facility] retroperitoneal mass, Medical percutaneous needle Center Heart valve [id number] 10/27/2017 [facility] replacement [facility] Heart valve [id number] 10/27/2017 [facility] replacement [place] Heart valve [id number] 10/27/2017 [facility] replacement [facility] Appendectomy [id number] [facility] Breast biopsy and [id number] [facility] related procedures [facility] Cardiac [id number] [facility] catheterization [facility] Cataract surgery [id number] [facility] Hysterectomy [id number] [facility] Ulnar nerve [id number] [facility] Appendectomy [id number] Center for [facility] Failure Breast biopsy and [id number] Center for related procedures Adv Heart Failure Cardiac [id number] Center for catheterization [facility] Cataract surgery [id number] [facility] Hysterectomy [id number] [facility] Ulnar nerve [id number] Center for decompression [facility] Appendectomy [id number] [facility] [place] Breast biopsy and [id number] [facility] related procedures [place] Cardiac [id number] [facility] catheterization [facility] Cataract surgery [id number] [facility] Hysterectomy [id number] [facility] [place] Ulnar nerve [id number] [facility] decompression [place] Appendectomy [id number] [facility] Breast biopsy and [id number] [facility] related procedures [facility] Cardiac [id number] [facility] catheterization [facility] Cataract surgery [id number] [facility] Hysterectomy [id number] [facility] Ulnar nerve [id number] [facility] decompression [facility] Appendectomy [id number] [facility] Breast biopsy and [id number] [facility] related procedures [facility] Cardiac [id number] [facility] catheterization [facility] Cataract surgery [id number] [facility] Hysterectomy [id number] [facility] Ulnar nerve [id number] [facility]
[2018-06-05 01:24] LABS: Absolute Lymphocytes (CBC) 9.3 K/uL (0.7-4.9); Absolute Monocytes 0.1 K/uL (0.1-1.3); Basophils % 0.5 % (0-1.3); Eosinophils % 0.6 % (0-4.4); Hematocrit 28.8 % (36.0-45.0); Lymphocytes % 88.3 % (15.3-44.8); MCH 34.5 pg (27.0-35.0); MCV 102.3 fL (80-100); MPV 9.8 fL (7.6-11.3); Monocytes % 0.9 % (3.3-12.3); RBC Red Blood Cell Count 2.81 M/uL (3.86-4.86)
--- OUTSIDE RECORDS SUMMARY | 2018-06-05 01:24 | XMS REPORT | CCD ---
:1935 Author Organization [facility] Care Team Providers Name Role Phone Morgan [...] mg, 1 supp, Route: 07/07/2012 07/14/2012 Discontinued [place], Drug form: SUPP, Daily, Dosing Weight 88.182, [...] Results BEDSIDE GLUCOSE TESTING Most recent to [facility] 1 2 3 [Reference Range]: Gluc POC [...] 200 mg/dL.BLOOD BANK RESULTS Most recent to [facility] [Reference 1 2 3 Range]: ABO/Rh O [...] values reflect the clinical guidelines of the [place] [employer].6Interpretive Data: Adult reference range values reflect the clinical guidelines of the [place] [employer].7Interpretive Data: Adult reference range values reflect the clinical guidelines of the [place] [employer].8Result Comment: Critical Result(s) called to MS. DANGELO at 07/13/2012 16:34:32 CDT by MANINDER. Read back OK.9Result Comment : Critical Result(s) called to Rosalinda Ely at 07/13/2012 13:06:41 CDT by RG. Read back OK.10Result Comment: Critical Result(s) called to Rose Lopez_ at 04:04:00 CDT_ by_mgm. Read back OK. (endorsed by [facility] to release result while in break).11Result [...] 10.0 240 Poor Control, take action to wpxso09Hobtxnuucpla Data: Drugs reported as positive have not [...] Data: Heparin Therapeutic Range: 57 - 92 [id number] Data: Heparin Therapeutic Range: 57 - 92 Gvcamjv68Cyhullbsolij Data: Heparin Therapeutic Range: 57 - 92 Dphjhtj10Bibvtvjflykc Data: Test results are reported in [facility] [...]
--- OUTSIDE RECORDS SUMMARY | 2018-06-05 01:25 | XMS REPORT | CCD ---
:1935 Author Organization [facility] Care Team Providers Name Role Phone Ramone Birch Consulting Provider [phone] Tod Doran Consulting Provider Allergies, Adverse Reactions, [...] mg, 1 supp, Route: 07/14/2012 2012 Discontinued [place], Drug form: SUPP, Daily, Dosing Weight 88.182, [...] Duration: 30 day, Stop date: 08/13/12 17:48:00 [place] 10/325 oral tablet 1 tab, Route: PO, [...] Duration: 30 day, Stop date: 08/14/12 9:09:00 [place] 10/325 oral tablet 1 tab, PO, Q4H, [...] values reflect the clinical guidelines of the [place] [employer].4Result Comment: Critical Result(s) called to [...] Catheterized FREE TEXT SOURCE: PRELIMINARY REPORTS Preliminary [id number],000/cfu/ml Gram Negative Rods , Identification And Sensitivity Pending
--- OUTSIDE RECORDS SUMMARY | 2018-06-05 01:25 | XMS REPORT | CCD ---
:1935 Author Organization [facility] Care Team Providers Name Role Phone Krysta [...] Duration: 30 day, Stop date: 08/14/12 9:00:00 Scotts 10/325 oral tablet 1 tab, Route: PO, [...] values reflect the clinical guidelines of the [place] [employer].5Interpretive Data: Adult reference range values reflect the clinical guidelines of the [place] [employer].6Interpretive Data: Adult reference range values reflect the clinical guidelines of the [place] [employer].7Result Comment: Critical Result(s) called to ya mckeon07/19/2012 05:04:48 CDT at _ by rahel. Read back OK.8Result Comment : Critical Result(s) called to hossein guillory at 07/17/2012 04:02:28 CDT bygavino. Read back OK.9Result Comment: [place] [phone] (busy line, 2x)07/16/2012 19:31:52 CDT, aamir guillory [...] Data: Heparin Therapeutic Range: 57 - 92 [id number] Data: Heparin Therapeutic Range: 57 - 92 [id number] Data: Heparin Therapeutic Range: 57 - 92 Seconds
--- OUTSIDE RECORDS SUMMARY | 2018-06-05 01:26 | XMS REPORT | CCD ---
:1935 Author Organization [facility] Care Team Providers Name Role Phone Gautam, Reedy Juan Referring Provider Allergies, Adverse Reactions, Alerts [...] tablet Daily, 30 tab, Substitution Allowed, TAB [place] 5/325 oral tablet 1 tab, Route: PO, [...] Duration: 30 day, Stop date: 02/18/13 9:00:00 [place] 5/325 oral tablet 1 tab, PO, Q4H, [...] values reflect the clinical guidelines of the [place] [employer].4Interpretive Data: Adult reference range values reflect the clinical guidelines of the [place] [employer].HEMATOLOGY Most recent to oldest [Reference [...]
--- OUTSIDE RECORDS SUMMARY | 2018-06-05 01:26 | XMS REPORT | CCD ---
:1935 Author Organization [facility] Care Team Providers Name Role Phone Tod Doran Consulting Provider Allergies, Adverse Reactions, Alerts Substance Reaction Status HYDROcodone-Pseudoephedrine HCl Active Problem List Condition Effective Dates Status CAD - Coronary artery disease Active DM - Diabetes mellitus Active Heart attack Active Laminectomy Active O/E - pain Active Stented artery Active Medications Medication Instructions Start Date End Date Status Gibbs 10/325 oral tablet 1 tab, PO, BID, [...] Duration: 30 day, Stop date: 08/20/12 14:56:00 Gibbs 10/325 oral tablet 1 tab, Route: PO, [...] Results BEDSIDE GLUCOSE TESTING Most recent to [facility] 1 2 3 [Reference Range]: Gluc [...] Reportable Limit: 200 mg/dL.URINALYSIS Most recent to [facility] [Reference Range]: 1 2 3 UA [...] /LPF] 3 /LPF *HI* (07/21/2012 20:17:00) UA [place] Yeast [None Seen /HPF] Occasional /HPF *ABN* [...] the clinical guidelines of the [place] [employer].5Interpretive Data: Adult reference range values reflect the clinical guidelines of the [place] [employer].6Interpretive Data: Adult reference range values reflect the clinical guidelines of the [place] [employer].HEMATOLOGY Most recent to oldest 1 [...] anemia vs. anemia of chronic disease. CPT: 89253 *NA* (07/30/2012 14:00:00) PT [12.0-14.7 seconds] 19.4 [...] Data: Heparin Therapeutic Range: 57 - 92 [id number] Data: Heparin Therapeutic Range: 57 - 92 [id number] Data: Heparin Therapeutic Range: 57 - 92 [...]
--- OUTSIDE RECORDS SUMMARY | 2018-06-05 01:26 | XMS REPORT | CCD ---
:1935 Author Organization [facility] Outpatient [facility] [place] Care Team Providers Name Role Phone Wagner [...]
[2018-06-05 01:28] LABS: Protime INR 1.08
[2018-06-05 01:48] LABS: Albumin 2.4 g/dL (3.4-5.0); Bilirubin Direct 0.2 mg/dL (0-0.2); Bilirubin Total 0.5 mg/dL (0.2-1.0); CKMB Creatine Kinase MB 1.2 ng/mL (0.3-3.6); Magnesium 1.5 mg/dL (1.8-2.4); Potassium 3.6 mmol/L (3.5-5.1); Protein, Total 5.6 g/dL (6.4-8.2)
[2018-06-05 01:59] LABS: Anisocytosis 1+; Blood Morphology Comment NOTED (NOT SEEN); Platelet Estimate DECR; Smudge Cells 41
[2018-06-05] MEDS ORDERED: D5 0.45 NS 1,000 ML IV ONE (02:06)
--- NOTE | 2018-06-05 02:13 | EDPHYS ---
Physician Documentation [facility] Name: Julia Groves Age: 82 yrs Sex: Female : 1935 Arrival Date: 06/05/2018 Time: 00:21 Bed 17 Private MD: ED Physician Shin Bustamante HPI: 06/05 00:30 This 82 yrs old Female presents to ER via Unassigned with complaints of AMS. kav 00:45 The patient presents with decreased mental status, decreased responsiveness. Onset: The kav symptoms/episode began/occurred acutely, just prior to arrival. Possible causes: low blood sugar, the patient uses insulin, Chemotherapy x 1 week and/or Tylenol # 3 tab 2 po x 1 dose. Associated signs and symptoms: Pertinent positives: abdominal pain, nausea, Pertinent negatives: chest pain, combativeness, dizziness, headache, lightheadedness, palpitations, seizure, shortness of breath, vertigo, vomiting. Current symptoms: In the emergency department the patient's symptoms have improved, moderately, is more alert. Patient's baseline: Neuro: alert and fully oriented, Motor: no deficits, Ambulation: walks with assist only, uses cane, Speech: normal, normal for age. The patient has not experienced similar symptoms in the past. The patient has not recently seen a physician. 01:06 Patient reports low platelet count of 34. PMHX: Aortic Valve Replacement October 2017. [facility] Home medication regimen: Plavix 75 mg po q daily and ASA 81 mg po q daily.. 01:09 PCP: Dr. Suarez. [facility] Historical: - Allergies: 00:35 No Known Allergies; jd3 - Home Meds: 00:35 aspirin 81 mg Oral chew 1 tab once daily [Active]; bumetanide 1 mg Oral tab 1 tab 2 jd3 times per day [Active]; carvedilol 12.5 mg Oral tab 1 tab 2 times per day [Active]; clopidogrel 75 mg Oral tab 1 tab once daily [Active]; cyanocobalamin (vitamin B-12) 500 mcg Oral tab daily [Active]; duloxetine 30 mg Oral cpDR 1 cap once daily [Active]; glimepiride 4 mg Oral tab 1 tab twice daily [Active]; Insulin Glargine 11Units Sub-Q nightly [Active]; Insulin Glargine 300 units/mL Sub-Q 10 unit nightly [Active]; metformin 500 mg Oral tab 1 tab 2 times per day [Active]; pantoprazole 40 mg Oral TbEC 1 tab once daily [Active]; pantoprazole 40 mg Oral TbEC 1 tab once daily [Active]; potassium chloride 20 mEq Oral TbER 1 tab 2 times per day [Active]; valacyclovir 500 mg Oral tab 1 tab once daily [Active]; 00:50 valsartan 40 mg oral tab 1 tab 2 times per day [Active]; Revlimid 10 mg oral cap jd3 [Active]; - PMHx: 00:35 Anemia; CAD; CLL; Lukemia; CONSTAPATION; constipation; Diabetes - IDDM; GERD; Heart jd3 Murmur; Hypertension; laminectomy, lower back pain; Myocardial infarction; spinal stenosis; systolic heart failure; - PSHx: 00:35 heart valve replacement 10/2017; Breast biopsy; cataract; Hysterectomy; ulnar nerve jd3 decompression; cardiac cath; Appendectomy; - Immunization history:: Adult Immunizations up to date. - Social history:: Smoking status: Patient/guardian denies using tobacco. - Ebola Screening: : Patient negative for fever greater than or equal to 101.5 degrees Fahrenheit, and additional compatible Ebola Virus Disease symptoms. - Family history:: not pertinent. - Hospitalizations: : No recent hospitalization is reported. - History obtained from: , daughter. ROS: 00:48 Constitutional: Negative for fever, chills, and weight loss, Eyes: Negative for injury, kav pain, redness, and discharge, ENT: Negative for injury, pain, and discharge, Neck: Negative for injury, pain, and swelling, Cardiovascular: Negative for chest pain, palpitations, and edema, Respiratory: Negative for shortness of breath, cough, wheezing, and pleuritic chest pain, Back: Negative for injury and pain, : Negative for injury, bleeding, discharge, and swelling, MS/Extremity: Negative for injury and deformity, Skin: Negative for injury, rash, and discoloration, Psych: Negative for depression, anxiety, suicide ideation, homicidal ideation, and hallucinations, Allergy/Immunology: Negative for hives, rash, and allergies, Endocrine: Negative for neck swelling, polydipsia, polyuria, polyphagia, and marked weight changes, Hematologic/Lymphatic: Negative for swollen nodes, abnormal bleeding, and unusual bruising. 00:48 Abdomen/GI: Positive for abdominal pain, nausea, of the left lower quadrant, Negative for vomiting, diarrhea, constipation, abdominal cramps, hematemesis, black/tarry stool, rectal bleeding. 00:48 Neuro: Positive for loss of consciousness. kav Exam: 00:48 Constitutional: This is a well developed, well nourished patient who is awake, alert, kav and in no acute distress. Head/Face: Normocephalic, atraumatic. Eyes: Pupils equal round and reactive to light, extra-ocular motions intact. Lids and lashes normal. Conjunctiva and sclera are non-icteric and not injected. Cornea within normal limits. Periorbital areas with no swelling, redness, or edema. ENT: Nares patent. No nasal discharge, no septal abnormalities noted. Tympanic membranes are normal and external auditory canals are clear. Oropharynx with no redness, swelling, or masses, exudates, or evidence of obstruction, uvula midline. Mucous membranes moist. Neck: Trachea midline, no thyromegaly or masses palpated, and no cervical lymphadenopathy. Supple, full range of motion without nuchal rigidity, or vertebral point tenderness. No Meningismus. Chest/axilla: Normal chest wall appearance and motion. Nontender with no deformity. No lesions are appreciated. Cardiovascular: Regular rate and rhythm with a normal S1 and S2. No gallops, murmurs, or rubs. Normal PMI, no JVD. No pulse deficits. Respiratory: Lungs have equal breath sounds bilaterally, clear to auscultation and percussion. No rales, rhonchi or wheezes noted. No increased work of breathing, no retractions or nasal flaring. Back: No spinal tenderness. No costovertebral tenderness. Full range of motion. Skin: Warm, dry with normal turgor. Normal color with no rashes, no lesions, and no evidence of cellulitis. MS/ Extremity: Pulses equal, no cyanosis. Neurovascular intact. Full, normal range of motion. Psych: Awake, alert, with orientation to person, place and time. Behavior, mood, and affect are within normal limits. 00:48 Abdomen/GI: Inspection: obese Bowel sounds: normal, in all quadrants. 00:48 Neuro: Orientation: is normal, appropriate for stated age, no acute changes, per family, Mentation: is normal, appropriate for stated age, no acute changes, per family, responsive to voice lucid, able to follow commands, Memory: is normal, immediate memory is intact, appropriate for stated age, no acute changes, per family, Cranial nerves: grossly normal, is grossly normal based on the patient's age, no acute changes, CN I not tested, CN II- XII are normal as tested, visual quijano are intact. Funduscopic exam reveals no obvious abnormalities, discs that are sharp, extraocular movements are intact, Facial palsy and sensory deficits are absent. no gross hearing deficit,. Nystagmus is absent. Cerebellar function: is grossly normal, is grossly normal based on the patient's age, no acute changes, Romberg testing is negative, normal finger to nose testing, heel to fox testing is normal, able to perform alternating rapid hand movements, Motor: is normal, Sensation: is normal, no obvious gross deficits, appropriate no acute changes, Gait: unable to assess, Deep tendon reflexes are normal, Babinski testing is normal, seizure activity, is not displayed by the patient, Abnormal movements: there are no abnormal movements. Vital Signs: 00:36 BP 107 / 53; Pulse 68; Resp 18 S; Temp 98.0(O); Pulse Ox 97% on R/A; Weight 63.5 kg jd3 (R); Height 5 ft. 3 in. (160.02 cm) (R); Pain 4/10; 01:11 BP 112 / 56; Pulse 69; Resp 19 S; Pulse Ox 97% on R/A; jd3 02:16 BP 119 / 57; Pulse 69; Resp 19 S; Pulse Ox 95% on R/A; jd3 03:08 BP 100 / 53; Pulse 71; Resp 17 S; Pulse Ox 95% on R/A; jd3 03:16 BP 109 / 54; Pulse 73; Resp 19 S; Pulse Ox 95% on R/A; jd3 03:37 BP 117 / 55; Pulse 74; Resp 19 S; Pulse Ox 95% on R/A; jd3 00:36 Body Mass Index 24.80 (63.50 kg, 160.02 cm) jd3 NIH Stroke Scale Scores: 00:48 NIHSS Score: 0 kav MDM: 00:29 Medical screening is not applicable. kav 00:48 Data reviewed: vital signs, nurses notes. kav 01:39 Awaiting: labs results. kav 02:06 ED course: Discussed plan of care with ED Attending/Dr. Bustamante: Place in Observation kav Status/Tele. Admit to Dr. Suarez. Dr. Bustamante reports that he will talk to Dr. Suarez in the morning regarding admission. 06/05 00:44 Order name: Amylase, Serum; Complete Time: 58 06/05 00:44 Order name: Basic Metabolic Panel; Complete Time: 06/05 00:44 Order name: CBC with Diff; Complete Time: 02:00 06/05 00:44 Order name: Creatinine for Radiology; Complete Time: 06/05 00:44 Order name: Hepatic Function; Complete Time: 06/05 00:44 Order name: Lipase; Complete Time: 06/05 00:44 Order name: Urine Microscopic Only 06/05 00:44 Order name: Ckmb; Complete Time: 06/05 00:44 Order name: CPK; Complete Time: 06/05 00:44 Order name: Magnesium; Complete Time: 06/05 00:44 Order name: NT PRO-BNP; Complete Time: 06/05 00:44 Order name: PT-INR; Complete Time: :06/05 00:44 Order name: Ptt, Activated; Complete Time: :06/05 00:44 Order name: Troponin (emerg Dept Use Only); Complete Time: 58 06/05 00:44 Order name: IV Saline Lock; Complete Time: 00:46 06/05 00:44 Order name: Labs collected and sent; Complete Time: :06/05 00:44 Order name: XRAY Chest (1 view) 06/05 00:44 Order name: EKG; Complete Time: 00:45 06/05 00:44 Order name: Cardiac monitoring; Complete Time: 00:46 06/05 00:44 Order name: EKG - Nurse/Tech; Complete Time: 00:46 06/05 00:44 Order name: O2 Per Protocol; Complete Time: 00:46 06/05 00:44 Order name: O2 Sat Monitoring; Complete Time: 00:46 kav 06/05 00:45 Order name: CT Head Brain wo Cont kav 06/05 01:27 Order name: Manual Differential; Complete Time: 02:00 EDMS 06/05 02:23 Order name: CT Abd/Pelvis - Without Cont bb 06/05 02:23 Order name: CT Abd/Pelvis - Without Cont jd3 06/05 02:06 Order name: FSBS: q1hr; Complete Time: 02:24 kav Administered Medications: 01:10 Drug: Zofran 4 mg Route: IVP; Site: left antecubital; jd3 02:00 Follow up: Response: No adverse reaction; Nausea is decreased jd3 02:05 Drug: D5-1/2 NS 1000 ml Route: IV; Rate: 75 TKO; Site: left antecubital; jd3 03:00 Follow up: Response: No adverse reaction; IV Status: Infusion continued upon admission jd3 03:03 Drug: D50W 50 ml Route: IVP; Site: right antecubital; jd3 03:40 Follow up: Response: Marked relief of symptoms; Blood sugar is elevated jd3 Point of Care Testing: Blood Glucose: 00:36 Blood Glucose: 72 mg/dL; jd3 03:03 Blood Glucose: 39 mg/dL; oe 03:38 Blood Glucose: 141 mg/dL; jd3 Ranges: Critical Glucose Levels:Adult <50 mg/dl or >400 mg/dl <40 mg/dl or >180 mg/dl Disposition: 03:40 Co-signature as Attending Physician, Shin Bustamante MD. pkl Disposition: 06/05/18 02:12 Hospitalization ordered by Melva Suarez for Inpatient Admission. Preliminary diagnosis are Hypoglycemia, unspecified, Thrombocytopenia, unspecified, Acute kidney failure, unspecified. - Bed requested for Telemetry/MedSurg (Inpatient). - Status is Inpatient Admission. jd3 - Condition is Fair. - Problem is new. - Symptoms have improved. UTI on Admission? No NIH Stroke Scale - NIH Stroke Score Date: 06/05/2018 Time: 00:48 Total Score = 0 1a. Level of Consciousness (LOC) - 0(Alert) 1b. Level of Consciousness (LOC) (Year \T\ Age) - 0(Both) 1c. LOC Commands (Open \T\ Closes Eyes/Seed Sales Manager) - 0(Both) 2. Best Gaze (Lateral Gaze Paresis) - 0(Normal) 3. Visual Field Loss - 0(No visual loss) 4. Facial Palsy - 0(Normal) 5a. Left Arm: Motor (10-second hold) - 0(No drift) 5b. Right Arm: Motor (10-second hold) - 0(No drift) 6a. Left Leg: Motor (5-second hold - always test supine) - 0(No drift) 6b. Right Leg: Motor (5-second hold - always test supine) - 0(No drift) 7. Limb Ataxia (finger/nose \T\ heel/fox - test with eyes open) - 0(Absent) 8. Sensory Loss (pinprick arms/legs/face) - 0(Normal) 9. Best Language: Aphasia (description/naming/reading) - 0(No aphasia) 10. Dysarthria (speech clarity - read or repeat words) - 0(Normal) 11. Extinction and Inattention (visual/tactile/auditory/spatial/personal) - 0(No abnormality) Initials: guero Signatures: Dispatcher [employer] Miya Andrade RN RN kl Lam, Pin, MD MD pkl Vern, Katherine, PRINT BINDING WORKER PRINT BINDING WORKER Blake Matta RN RN jd3 Corrections: (The following items were deleted from the chart) 00:51 00:35 Home Meds: clonidine HCl 0.1 mg Oral tab 1 tab 2 times per day; jd3 jd3 51 00:35 Home Meds: fluconazole 100 mg Oral tab 1 tab once daily; jd3 jd3 51 00:35 Home Meds: Lasix 20 mg Oral tab 1 tab once daily; jd3 jd3 :51 00:35 Home Meds: levofloxacin 250 mg Oral tab 1 tab once daily; jd3 jd3 00:51 00:35 Home Meds: nifedipine 30 mg Oral TbER 1 tab once daily; jd3 jd3 02:48 02:12 Hospitalization Ordered by Melva Suarez MD for Inpatient Admission. Preliminary kl diagnosis is Hypoglycemia, unspecified; Thrombocytopenia, unspecified; Acute kidney failure, unspecified. Bed requested for Telemetry/MedSurg (Inpatient). Status is Inpatient Admission. Condition is Fair. Problem is new. Symptoms have improved. UTI on Admission? No. kav 04:00 02:48 06/05/2018 02:12 Hospitalization Ordered by Melva Suarez MD for Inpatient jd3 Admission. Preliminary diagnosis is Hypoglycemia, unspecified; Thrombocytopenia, unspecified; Acute kidney failure, unspecified. Bed requested for Telemetry/MedSurg (Inpatient). Status is Inpatient Admission. Condition is Fair. Problem is new. Symptoms have improved. UTI on Admission? No. kl
--- NOTE | 2018-06-05 02:13 | ER ---
Nurse's Notes [facility] Emergency Department Name: Julia Groves Age: 82 yrs Sex: Female : 1935 Arrival Date: 06/05/2018 Time: 00:21 Bed 17 Private MD: Diagnosis: Hypoglycemia, unspecified;Thrombocytopenia, unspecified;Acute kidney failure, unspecified Presentation: 06/05 00:24 Presenting complaint: EMS states: "We were called out for an unresponsive pt at her [facility] residence. When we arrived the blood sugar was 44 and pt was A\\T\\O X 0. we started a line and gave D50, pt woke up and was A\\T\\O X 4. upon waking up, pt was felt very nauseous and diaphoretic. blood sugar came up to 122 and we gave some Zofran for the nausea. pt has also started chemo treatment about a week ago and took codeine tonight and the family didn't know if that was why she might be having these symptoms or not.". Transition of care:. Onset of symptoms was June 05, 2018. Risk Assessment: Do you want to hurt yourself or someone else? Patient reports no desire to harm self or others. Initial Sepsis Screen: Does the patient meet any 2 criteria? No. Patient's initial sepsis screen is negative. Does the patient have a suspected source of infection? No. Patient's initial sepsis screen is negative. Care prior to arrival: Medication(s) given: D50, 1 amp, zofran 4 mg, IV initiated. 20 GA, in the left antecubital area, Glucose check: 44 glucose recheck: 122. 00:24 Method Of Arrival: EMS: [place] [address] 00:24 Acuity: RYAN 2 jd3 Historical: - Allergies: 00:35 No Known Allergies; jd3 - Home Meds: 00:35 aspirin 81 mg Oral chew 1 tab once daily [Active]; bumetanide 1 mg Oral tab 1 tab 2 jd3 times per day [Active]; carvedilol 12.5 mg Oral tab 1 tab 2 times per day [Active]; clopidogrel 75 mg Oral tab 1 tab once daily [Active]; cyanocobalamin (vitamin B-12) 500 mcg Oral tab daily [Active]; duloxetine 30 mg Oral cpDR 1 cap once daily [Active]; glimepiride 4 mg Oral tab 1 tab twice daily [Active]; Insulin Glargine 11Units Sub-Q nightly [Active]; Insulin Glargine 300 units/mL Sub-Q 10 unit nightly [Active]; metformin 500 mg Oral tab 1 tab 2 times per day [Active]; pantoprazole 40 mg Oral TbEC 1 tab once daily [Active]; pantoprazole 40 mg Oral TbEC 1 tab once daily [Active]; potassium chloride 20 mEq Oral TbER 1 tab 2 times per day [Active]; valacyclovir 500 mg Oral tab 1 tab once daily [Active]; 00:50 valsartan 40 mg oral tab 1 tab 2 times per day [Active]; Revlimid 10 mg oral cap jd3 [Active]; - PMHx: 00:35 Anemia; CAD; CLL; Lukemia; CONSTAPATION; constipation; Diabetes - IDDM; GERD; Heart jd3 Murmur; Hypertension; laminectomy, lower back pain; Myocardial infarction; spinal stenosis; systolic heart failure; - PSHx: 00:35 heart valve replacement 10/2017; Breast biopsy; cataract; Hysterectomy; ulnar nerve jd3 decompression; cardiac cath; Appendectomy; - Immunization history:: Adult Immunizations up to date. - Social history:: Smoking status: Patient/guardian denies using tobacco. - Ebola Screening: : Patient negative for fever greater than or equal to 101.5 degrees Fahrenheit, and additional compatible Ebola Virus Disease symptoms. - Family history:: not pertinent. - Hospitalizations: : No recent hospitalization is reported. - History obtained from: , daughter. Screenin:41 Abuse screen: Denies threats or abuse. Nutritional screening: No deficits noted. jd3 Tuberculosis screening: No symptoms or risk factors identified. Fall Risk IV access (20 points). Ambulatory Aid- None/Bed Rest/Nurse Assist (0 pts). Gait- Weak (10 pts.). Mental Status- Oriented to own ability (0 pts). Total Aguila Fall Scale indicates Low Risk Score (25-44 pts). Fall prevention measures have been instituted. Side Rails Up X 2 Placed close to Nursing Station Frequent Obs/Assesments occuring Family Present and informed to notify staff if they need to leave bedside. Assessment: 00:42 General: Appears uncomfortable, Behavior is calm, cooperative, appropriate for age. jd3 Pain: Complains of pain in left lower quadrant Pain currently is 4 out of 10 on a pain scale. Quality of pain is described as aching. Neuro: Level of Consciousness is awake, alert, obeys commands, Oriented to person, place, time, situation, Appropriate for age. Cardiovascular: Heart tones S1 S2 present Capillary refill < 3 seconds Patient's skin is warm and dry. Rhythm is regular. Respiratory: Airway is patent Respiratory effort is even, unlabored, Respiratory pattern is regular, symmetrical, Breath sounds are clear bilaterally. GI: Abdomen is round Bowel sounds present X 4 quads. Abd is soft and non tender X 4 quads. Reports nausea. : No signs and/or symptoms were reported regarding the genitourinary system. EENT: No signs and/or symptoms were reported regarding the EENT system. Derm: Skin is intact, Skin is dry, Skin is pale, Skin temperature is warm. Musculoskeletal: Circulation, motion, and sensation intact. Range of motion: intact in all extremities. 01:12 Reassessment: Patient appears in no apparent distress at this time. Patient and/or jd3 family updated on plan of care and expected duration. Pain level reassessed. Patient is alert, oriented x 3, equal unlabored respirations, skin warm/dry/pink. 02:05 Reassessment: Patient appears in no apparent distress at this time. Patient and/or jd3 family updated on plan of care and expected duration. Pain level reassessed. Patient is alert, oriented x 3, equal unlabored respirations, skin warm/dry/pink. pt with warm feeling and small amount of diaphoreses. provider notified, new orders received, see MAR. 03:01 Reassessment: Patient appears in no apparent distress at this time. Patient and/or jd3 family updated on plan of care and expected duration. Pain level reassessed. Patient is alert, oriented x 3, equal unlabored respirations, skin warm/dry/pink. 03:03 Reassessment: Patient and/or family updated on plan of care and expected duration. Pain jd3 level reassessed. Patient is alert, oriented x 3, equal unlabored respirations, skin warm/dry/pink. provider notified of blood sugar, new order received, see mar. 03:38 Reassessment: Patient appears in no apparent distress at this time. Patient and/or jd3 family updated on plan of care and expected duration. Pain level reassessed. Patient is alert, oriented x 3, equal unlabored respirations, skin warm/dry/pink. Patient states feeling better. 03:58 Reassessment: Patient appears in no apparent distress at this time. Patient and/or jd3 family updated on plan of care and expected duration. Pain level reassessed. Patient is alert, oriented x 3, equal unlabored respirations, skin warm/dry/pink. pt reported understanding of need for admission. Patient states feeling better. Vital Signs: 00:36 BP 107 / 53; Pulse 68; Resp 18 S; Temp 98.0(O); Pulse Ox 97% on R/A; Weight 63.5 kg jd3 (R); Height 5 ft. 3 in. (160.02 cm) (R); Pain 4/10; 01:11 BP 112 / 56; Pulse 69; Resp 19 S; Pulse Ox 97% on R/A; jd3 02:16 BP 119 / 57; Pulse 69; Resp 19 S; Pulse Ox 95% on R/A; jd3 03:08 BP 100 / 53; Pulse 71; Resp 17 S; Pulse Ox 95% on R/A; jd3 03:16 BP 109 / 54; Pulse 73; Resp 19 S; Pulse Ox 95% on R/A; jd3 03:37 BP 117 / 55; Pulse 74; Resp 19 S; Pulse Ox 95% on R/A; jd3 00:36 Body Mass Index 24.80 (63.50 kg, 160.02 cm) jd3 NIH Stroke Scale Scores: 00:48 NIHSS Score: 0 [facility] ED Course: 00:21 Patient arrived in ED. bs1 00:24 Blake Marlow, RODRIGUE is Primary Nurse. jd3 00:29 Dalila Overton FNP is PHCP. kav 00:29 Shin Bustamante MD is Attending Physician. kav 00:31 Triage completed. jd3 00:38 Arm band placed on. jd3 00:41 Patient has correct armband on for positive identification. Bed in low position. Call jd3 light in reach. Side rails up X2. Adult w/ patient. 01:10 Maintain EMS IV. Dressing intact. Good blood return noted. Site clean \\T\\ dry. Gauge \\T\\ héctor 3 site: 20 G left AC. 01:17 X-ray completed. Portable x-ray completed in exam room. Patient tolerated procedure kw well. 01:18 XRAY Chest (1 view) In Process Unspecified. EDMS 01:49 Notified Nurse Practitioner and/or Physician Rewriter of a critical lab result(s), bb blood glucose of 48 K. Tian BASSETT notified new orders received see DEC. 02:08 Melva Suarez MD is Hospitalizing Provider. kav 02:[address] via stretcher. kw1 02:53 CT completed. Patient tolerated procedure well. Patient moved back from CT. kw1 02:59 Inserted saline lock: 20 gauge in right antecubital area, using aseptic technique. IV jd3 EMS IV dc'd by pt by accendent. 03:00 No provider procedures requiring assistance completed. Patient admitted, IV remains in jd3 place. Administered Medications: 01:10 Drug: Zofran 4 mg Route: IVP; Site: left antecubital; jd3 02:00 Follow up: Response: No adverse reaction; Nausea is decreased jd3 02:05 Drug: D5-1/2 NS 1000 ml Route: IV; Rate: 75 TKO; Site: left antecubital; jd3 03:00 Follow up: Response: No adverse reaction; IV Status: Infusion continued upon admission jd3 03:03 Drug: D50W 50 ml Route: IVP; Site: right antecubital; jd3 03:40 Follow up: Response: Marked relief of symptoms; Blood sugar is elevated jd3 Point of Care Testing: Blood Glucose: 00:36 Blood Glucose: 72 mg/dL; jd3 03:03 Blood Glucose: 39 mg/dL; oe 03:38 Blood Glucose: 141 mg/dL; jd3 Ranges: Outcome: 02:12 Decision to Hospitalize by Provider. kav 03:57 Admitted to Tele accompanied by tech, via stretcher, room 218, with chart, Report jd3 called to Rebeca HUSAIN 03:57 Condition: stable 03:57 Instructed on the need for admit, Demonstrated understanding of instructions. 04:00 Patient left the ED. ana maria NIH Stroke Scale - NIH Stroke Score Date: 06/05/2018 Time: 00:48 Total Score = 0 1a. Level of Consciousness (LOC) - 0(Alert) 1b. Level of Consciousness (LOC) (Year \\T\\ Age) - 0(Both) 1c. LOC Commands (Open \\T\\ Closes Eyes/Stock Checker) - 0(Both) 2. Best Gaze (Lateral Gaze Paresis) - 0(Normal) 3. Visual Field Loss - 0(No visual loss) 4. Facial Palsy - 0(Normal) 5a. Left Arm: Motor (10-second hold) - 0(No drift) 5b. Right Arm: Motor (10-second hold) - 0(No drift) 6a. Left Leg: Motor (5-second hold - always test supine) - 0(No drift) 6b. Right Leg: Motor (5-second hold - always test supine) - 0(No drift) 7. Limb Ataxia (finger/nose \\T\\ heel/fox - test with eyes open) - 0(Absent) 8. Sensory Loss (pinprick arms/legs/face) - 0(Normal) 9. Best Language: Aphasia (description/naming/reading) - 0(No aphasia) 10. Dysarthria (speech clarity - read or repeat words) - 0(Normal) 11. Extinction and Inattention (visual/tactile/auditory/spatial/personal) - 0(No abnormality) Initials: guero Signatures: Dispatcher [employer] EDMS Dalila Overton, HEALTH CARE FACILITY ADMINISTRATOR HEALTH CARE FACILITY ADMINISTRATOR Jes Jones RN RN bb Whitley, Kimberlee kw Espinosa, Orlando oe Davies, Jonathon RN RN Miya Dutta Brittany RN RN bs1 Corrections: (The following items were deleted from the chart) 00:41 00:24 Presenting complaint: EMS states: "We were called out for an unresponsive jviktor pt at her residence. When we arrived the blood sugar was 44 and pt was A\\T\\O X 0. we started a line and gave D50, pt woke up and was A\\T\\O X 4. upon waking up, pt was felt very nauseous and diaphoretic. blood sugar came up to 122 and we gave some zofran for the nausea." jd3 0051 00:35 Home Meds: clonidine HCl 0.1 mg Oral tab 1 tab 2 times per day; jd3 jd3 00:35 Home Meds: fluconazole 100 mg Oral tab 1 tab once daily; jd3 jd3 00:51 00:35 Home Meds: Lasix 20 mg Oral tab 1 tab once daily; jd3 jd3 00:51 00:35 Home Meds: levofloxacin 250 mg Oral tab 1 tab once daily; jd3 jd3 00:51 00:35 Home Meds: nifedipine 30 mg Oral TbER 1 tab once daily; jd3 jd3 02:15 02:05 Reassessment: Patient appears in no apparent distress at this time. jd3 Patient and/or family updated on plan of care and expected duration. Pain level reassessed. Patient is alert, oriented x 3, equal unlabored respirations, skin warm/dry/pink. jd3 03:27 03:03 Reassessment: provider notified of blood sugar, new order received, see jd3 mar. jd3 03:38 02:05 Reassessment: Patient appears in no apparent distress at this time. jd3 Patient and/or family updated on plan of care and expected duration. Pain level reassessed. Patient is alert, oriented x 3, equal unlabored respirations, skin warm/dry/pink. pt with warm feeling and small amount of diaphoreses. provider notified, new orders received, see MAR. jd3 03:38 03:01 Reassessment: Patient appears in no apparent distress at this time. jd3 Patient and/or family updated on plan of care and expected duration. Pain level reassessed. Patient is alert, oriented x 3, equal unlabored respirations, skin warm/dry/pink. Patient states feeling better. jd3
[2018-06-05] MEDS ORDERED: D50W 25 GM/50 ML SYRINGE IV ONE (03:08)
[2018-06-05] MEDS ORDERED: ONDANSETRON 4 MG/2 ML VIAL IV ONE (05:30)
[2018-06-05] MEDS ORDERED: Morphine 2 MG/2 ML SYR IV ONE (05:31)
[2018-06-05 05:32] VITALS: BMI 26.9
[2018-06-05] MEDS: D5 0.45 NS 1,000 ML IV SCH ×2 (05:44→15:29)
[2018-06-05] MEDS: D50W 25 GM/50 ML SYRINGE IV PRN ×5 (05:45→21:44)
[2018-06-05] MEDS ORDERED: MORPHINE 2 MG/ML SYR ONE (05:58)
--- NOTE | 2018-06-05 08:18 | EKG ---
Test Date: 2018-06-05 Test Time: 00:25:10 County Commissioner: PETAR MEASUREMENT RESULTS: Intervals: Rate: 67 LA: 140 QRSD: 136 QT: 458 QTc: 483 [place]: P: 32 LA: 140 QRS: 50 T: 144 INTERPRETIVE STATEMENTS: Normal sinus rhythm Left bundle branch block Abnormal ECG Compared to ECG 04/25/2018 10:20:12 No significant changes Electronically Signed On 06-05-18 08:18:12 CDT by Yaniv Machado
--- NOTE | 2018-06-05 08:19 | RAD REPORT ---
EXAM DESCRIPTION: Marycarmen Single View06/05/2018 1:18 am CLINICAL HISTORY: Shortness of breath COMPARISON: March 2018 all FINDINGS: The lungs appear clear of acute infiltrate. The heart is mildly enlarged. Pacemaker leads are in place. IMPRESSION: No acute abnormalities displayed
--- NOTE | 2018-06-05 09:08 | RAD REPORT ---
EXAM DESCRIPTION: CT - Head Brain Wo Cont - 06/05/2018 4:28 am CLINICAL HISTORY: Alteration of awareness/ unresponsive COMPARISON: 2010 TECHNIQUE: Computed axial tomography of the head was obtained. IV contrast was not requested.A preli minary report was generated by virtual radiologic reviewed prior to this dictation All CT scans are performed using dose optimization technique as appropriate and may include automated exposure control or mA/KV adjustment according to patient size. FINDINGS: An intracranial bleed is not seen . The ventricles are normal in caliber. No extra-axial fluid collection is noted. Moderate low-density areas within periventricular, deep and subcortical white matter likely represent ischemic changes secondary to small vessel disease. Fluid within the sinuses/ mastoids is not seen. IMPRESSION: No acute intracranial abnormality is seen. If patient's symptoms persist MRI of the bra in would be recommended.
[2018-06-05] MEDS ORDERED: LENALIDOMIDE PO SCH (15:30)
[2018-06-05] MEDS ORDERED: DEXTROSE 10%-WATER 500 ML IV SCH (15:30)
[2018-06-05 16:11] LABS: Magnesium 1.5 mg/dL (1.8-2.4); Potassium 3.9 mmol/L (3.5-5.1)
[2018-06-05 16:18] LABS: Absolute Lymphocytes (CBC) 12.6 K/uL (0.7-4.9); Absolute Monocytes 0.1 K/uL (0.1-1.3); Absolute Neutrophil 0.9 K/uL (1.8-8.0); Basophils % 0.5 % (0-1.3); Eosinophils % 0.6 % (0-4.4); Hematocrit 29.1 % (36.0-45.0); Lymphocytes % 91.7 % (15.3-44.8); MCH 33.5 pg (27.0-35.0); MCV 102.8 fL (80-100); MPV 9.9 fL (7.6-11.3); Monocytes % 0.7 % (3.3-12.3); RBC Red Blood Cell Count 2.83 M/uL (3.86-4.86)
[2018-06-05 16:39] LABS: Anisocytosis 1+; Blood Morphology Comment NOTED (NOT SEEN); Platelet Estimate DECR; Urine White Blood Cell Casts OK
[2018-06-05] MEDS: DEXTROSE 10%-WATER 500 ML IV SCH (18:49)
[2018-06-05] MEDS ORDERED: VALSARTAN 40 MG TAB PO SCH (21:00)
[2018-06-05] MEDS ORDERED: HOME MED 1 EA UNK (Potassium Chloride [Potassium Chloride] 1 TAB) PO SCH (21:00)
[2018-06-05] MEDS ORDERED: BUMETANIDE PO SCH (21:00)
[2018-06-05] MEDS: CODEINE 30MG/APAP 300MG TAB PO PRN (23:24)
--- NOTE | 2018-06-06 03:10 | HP ---
Date of Admission: 06/05/2018 Chief Complaint: Low sugar and unresponsiveness. History Of Present Illness: An 82-year-old female patient with multiple medical problems, who was do ing fine in her usual state of health, and yesterday, she had her breakfast and lunch but did not eat much for dinner. Around 9:30 p.m. or so, she took all her medications including her insulin and the n she went to bed. Around 11 p.m., the patient's went into the bedroom and noted that the pa tient was not looking right and he tried to wake her up and she would not wake up so ambulance was ca lled and the patient was noted to have low blood sugar. She was given IV glucose. Her sugar came ba ck up but then it dropped down again to low sugar and she was admitted subsequently to the [facility] my service. When I saw her this morning, she was awake, alert, and oriented like her normal evelyne f. The patient has received multiple doses of IV D50 for hypoglycemia since her arrival to the [facility] ency room and has been receiving continuous IV fluid containing dextrose solution. The patient has l ost a significant amount of weight lately because she has been ill and has been in and out of [facility] She has lost about 20 pounds in the last 6-7 months or so. She sees her lode miner, Dr. Rushing; a nd oncologists, Dr. Benedict in [place]. Medications: Aspirin 81 mg daily, Bumex 1 mg 2 times a day, carvedilol 12.5 mg 2 times a day, cyclob enzaprine 10 mg takes half a tablet at bedtime, duloxetine 30 mg daily, glimepiride 4 mg 2 times a da y, magnesium chloride 64 mg daily, metformin 500 mg 2 times a day, pantoprazole 40 mg p.o. daily, Whitney vix 75 mg p.o. daily, potassium chloride 20 mEq p.o. 2 times a day, pravastatin 80 mg the patient alis es half a tablet p.o. daily, Toujeo 14 units subcutaneous injection daily at bedtime, valacyclovir 50 0 mg p.o. daily as needed, vitamin B12 500 mcg p.o. daily. Review of Systems: Endocrine: As mentioned above. Constitutional: As mentioned above. All other systems reviewed and negative. Allergies: TO ATORVASTATIN CAUSING MYALGIA; GEMFIBROZIL CAUSING NAUSEA, SWEATING; SIMVASTATIN CAUSIN G MYALGIA. Social History: Negative for smoking or alcohol use. Family History: Significant for pulmonary fibrosis and hypertension. Past Surgical History: Surgery for spinal stenosis in 2011, AICD placement in 2012 with low ejection fraction of 25%, TAVR in October 2017 for aortic valve stenosis, tubal ligation, right hand ulnar ne rve surgery, coronary artery angioplasty with stent placement x3 in 2004, cataract surgery, appendect saw, breast biopsy, hysterectomy, and surgery for pterygium. Past Medical History: Significant for chronic kidney disease stage 3, CLL, aortic valve stenosis, de pression, atrial fibrillation, diabetes mellitus, hyperlipidemia, thrombocytopenia, anemia, coronary artery disease, diverticulosis, gastroesophageal reflux disease, hypertension, chronic systolic conge stive heart failure. Physical Examination: Vital Signs: This morning temperature 97.2, pulse 77, respiratory rate 18, blood pressure 131/58, ox ygen saturation 94%. Height 5 feet 3 inches, weight 152 pounds. General: Awake, alert, oriented, not in distress. HEENT: Head atraumatic, normocephalic. Conjunctivae nonerythematous. Sclerae white. Mouth, no thr ush or edema noted. Ears/Nose, no mass, lesion, discharge noted. Neck: Supple. No JVD, lymph nodes, bruit, thyromegaly noted. Lungs: Minimum right basal rales. Not using accessory muscles of respiration. Heart: Normal heart sounds, no murmur or gallop. Abdomen: Soft, bowel sounds normal. No guarding, rigidity, tenderness, mass, hepatosplenomegaly, dis tention, or bruit noted. Extremities: No leg edema. No calf tenderness. Skin: No rash, ulcer, cellulitis. Lymphatics: No lymph node enlargement in neck, supraclavicular, infraclavicular region. Neuro: No focal neurological deficit. Chest: Unremarkable. External Genitalia: Deferred. Rectal: Deferred. Laboratory Data: White count 10.5, hemoglobin 9.7, platelets 30. INR 1.08. Sodium 137, potassium 3 .6, chloride 100, bicarb 29, BUN 40, creatinine 1.80, glucose 48, magnesium 1.5. Liver function test s unremarkable. Troponin less than 0.02. ProBNP 7757. Amylase 27, lipase 60. Multiple fingerstick blood sugar readings reviewed. Lowest glucose today was 37 close to lunch time. Repeat chemistry t aubree; sodium 136, potassium 3.9, chloride 100, bicarb 28, BUN 36, creatinine 1.60, glucose 50, magnes ium 1.5. Urinalysis pending. CAT scan of head without contrast; no acute intracranial changes. Deja ctrocardiogram; normal sinus rhythm, left bundle-branch block. Chest; x-ray no acute abnormality. Impression: 1.Hypoglycemia. 2.Hypomagnesemia. 3.Thrombocytopenia. 4.Chronic lymphocytic leukemia. 5.Coronary artery disease. 6.Chronic kidney disease, stage 3. 7.Aortic valve stenosis. 8.Atrial fibrillation. 9.Diabetes mellitus, type 2. 10.Hyperlipidemia. 11.Diverticulosis. 12.Hypertension. 13.Gastroesophageal reflux disease. 14.Chronic systolic congestive heart failure. Plan: Admit the patient to hospital for further evaluation and management of this problem. The shelbie ent is appropriate for inpatient and is expected to spend 2 midnights in hospital. So far, she has r eceived multiple doses of IV D50 dextrose solution because of severe symptomatic hypoglycemia, and in spite of having continuous IV dextrose solution administration, she still continues to have hypoglyc emia problem which is expected after her last dose of glimepiride, metformin, and her Toujeo insulin last night. We will not give any diabetes medication until hypoglycemia resolves. Her recent blood work from 05/20/2018 had shown hemoglobin A1c of 5.4. With almost 20 pounds weight loss, she will ne ed less medication at this point compared to before. We will discontinue glimepiride and metformin a nd just try to maintain her diabetes control with Toujeo insulin. Dose of Toujeo insulin will be dec ided upon her sugar readings. Other home medications will be continued per order. Important decisio n we need to make is about her aspirin and Plavix. She has history of low platelets and low hemoglob in, which is nothing new, but now her platelet count is dropping too low as per my discussion with th e patient, the patient's family which is patient's and son who were present at bedside, and I also called and talked to the patient's oncologist, Dr. Benedict, and expressed my concern about low whitney telet count and on one hand the patient needs her aspirin and Plavix, but on another hand, she is at risk of bleeding complication with low platelets and now it is becoming a safety concern with anti-pl atelet therapy. So, Dr. Benedict has recommended that we should give her platelet transfusion if platele t count is less than 20, or any platelet count associated with bleeding episode, then the patient zita uld receive platelet transfusion. At this point, there is no indication for platelet transfusion. H e also suggested for us to continue aspirin as long as the patient's platelet count is 30 or higher t cadena that and continue Plavix as long as platelet count is 50 or higher than that. I have reordered a nother CBC to be done this afternoon. Result is still pending. Depending on that result, we will de cide if we can give her aspirin or not but Plavix will be definitely not given considering platelet c ount is less than 50. I will also try to reach out to the patient's lode miner, Dr. Rushing, to discus s all the details with him as well and I have left message with his office staff for him to call me b ack so I can inform him of recommendation from Dr. Benedict. We will see her tomorrow for followup. I h ave given order to change IV fluid from D5W to D10W, so we can limit amount of fluid that she receive s to avoid chances of any fluid overload type of situation. SCD is in place for DVT prophylaxis. Re place electrolyte per protocol. DELANO/MODL Voice ID: [id number]
[2018-06-06] MEDS: DEXTROSE 10%-WATER 500 ML IV SCH (03:30)
[2018-06-06] MEDS ORDERED: D5W 1,000 ML IV SCH (08:00)
[2018-06-06] MEDS ORDERED: HOME MED 1 EA UNK (Pantoprazole [Protonix Tab*] 40 MG) PO SCH (09:00)
[2018-06-06] MEDS ORDERED: HOME MED 1 EA UNK (Cyanocobalamin (Vitamin B-12) [Vitamin B-12] 1 TAB) PO SCH (09:00)
[2018-06-06] MEDS ORDERED: DEXTROSE 10%-WATER 500 ML IV SCH (09:00)
[2018-06-06] MEDS ORDERED: VALACYCLOVIR PO SCH (09:00)
[2018-06-06] MEDS ORDERED: HOME MED 1 EA UNK (Duloxetine Hcl [Duloxetine Hcl] 1 TAB) PO SCH (09:00)
[2018-06-06] MEDS: CODEINE 30MG/APAP 300MG TAB PO PRN ×2 (09:17→18:35)
[2018-06-06 09:26] LABS: Magnesium 1.7 mg/dL (1.8-2.4); Potassium 4.3 mmol/L (3.5-5.1)
[2018-06-06 09:40] LABS: Absolute Lymphocytes (CBC) 11.3 K/uL (0.7-4.9); Absolute Monocytes 0.1 K/uL (0.1-1.3); Absolute Neutrophil 0.8 K/uL (1.8-8.0); Eosinophils % 0.7 % (0-4.4); Lymphocytes % 91.6 % (15.3-44.8); MCH 35.3 pg (27.0-35.0); MCV 102.6 fL (80-100); MPV 11.2 fL (7.6-11.3); Monocytes % 0.5 % (3.3-12.3); RBC Red Blood Cell Count 2.83 M/uL (3.86-4.86)
--- NOTE | 2018-06-06 14:40 | PN ---
Date of Progress Note: 06/06/2018 Subjective: The patient was seen this morning for followup. She was lying in bed, not in any distre ss. No new complaints or problems reported by the patient. Her , son and daughter they were also present in room with her. Denies any PND or orthopnea. She has not ambulated yesterday and tocriss evans I did encourage her to ambulate. Objective: Vital signs: Reviewed. Fingerstick blood sugar readings reviewed. HEENT: Examination unremarkable. Lungs: Clear to auscultation except some rales noted in right lower lung field unchanged from yester day. Heart: Sounds normal. Abdomen: Soft, bowel sounds normal. No guarding, rigidity, tenderness, distention. Extremities: No leg edema. Laboratory Data: White count 12.3, hemoglobin 10, platelets 26 today, yesterday it was 25 and when s he came into ER, it was 30. Sodium this morning is 133, potassium 4.3, chloride 97, bicarb 29, BUN 3 6, creatinine 1.40, glucose 219 and this was after breakfast this morning. Magnesium 1.7. Impression: 1.Hypoglycemia. 2.Thrombocytopenia. 3.Anemia. 4.Chronic lymphocytic leukemia. 5.Congestive heart failure, chronic, systolic. 6.Coronary artery disease. 7.Hypertension. 8.Diabetes mellitus. 9.Hypomagnesemia. Plan: After reviewing the patient's fingerstick blood sugar readings, we will go ahead and discontin ue her IV fluid containing dextrose solution. She received IV fluids D10 up until this morning prior to my arrival. It was changed to D5W now, we will go ahead and discontinue for diabetes. We will m fadumo that decision either today or tomorrow depending on her blood sugar readings. We will continue t o observe her blood sugar closely for any more hypoglycemia problem and if she remains stable, our pl an is to discharge her to go home tomorrow. Replace magnesium per protocol. For thrombocytopenia, I did call the patient's oncologist Dr. Benedict today and talked to him. All the lab results reviewed wi th him. He has recommended to repeat another platelet count tomorrow and if platelet count remains l ess than 30, then to give 1 unit of platelet transfusion prior to discharge tomorrow. He has also ad vised to discontinue her Revlimid and he has suggested for patient to get repeat CBC done sometime th is coming week on Friday or Friday, which can be done at my office and I will communicate with Dr Duane Benedict for his recommendation about when to restart Revlimid. So, as of today, the patient will no l onger take Revlimid until further instruction and all these details were communicated with the kael morales's son. I have asked nursing staff to ambulate her with assistance and also requested physical therapist clinic director apy consultation for ambulation purpose. DELANO/MODL Voice ID: [id number] Report ID: [id number]
[2018-06-07 06:14] LABS: Potassium 4.1 mmol/L (3.5-5.1)
[2018-06-07 06:24] LABS: Absolute Lymphocytes (CBC) 10.8 K/uL (0.7-4.9); Absolute Monocytes 0.1 K/uL (0.1-1.3); Absolute Neutrophil 0.6 K/uL (1.8-8.0); Basophils % 0.6 % (0-1.3); Eosinophils % 0.9 % (0-4.4); Lymphocytes % 92.6 % (15.3-44.8); MCH 34.4 pg (27.0-35.0); MCV 101.7 fL (80-100); MPV 9.9 fL (7.6-11.3); Monocytes % 0.7 % (3.3-12.3); RBC Red Blood Cell Count 2.55 M/uL (3.86-4.86)
[2018-06-07 08:21] VITALS: O2SAT 96
--- NOTE | 2018-06-07 08:36 | RAD REPORT ---
EXAM DESCRIPTION: CT - Abdomen Pelvis Wo Contrast - 06/07/2018 8:07 am CLINICAL HISTORY: Abdominal pain, nausea, patient found unresponsive, history of malignancy with rec ent initiation of chemotherapy COMPARISON: CT March 2017 TECHNIQUE: Axial [address] imaging of the abdomen and pelvis was performed without IV contrast. No IV contrast was given because of allergy, abnormal renal function, patient refusal or physician re quest. Oral contrast was given. All CT scans are performed using dose optimization technique as appropriate and may include automated exposure control or mA/KV adjustment according to patient size. FINDINGS: Interstitial markings are prominent at each base potentially masking edema or infiltrate. Trace pleural effusions present. No pericardial effusion. Liver size is upper normal. No focal parenchymal process on noncontrast imaging. Splenomegaly to 17 c m noted. No focal splenic lesion. Gallbladder is distended. No wall thickening. Gallstones can be occ ult. No biliary tree dilatation. No hydronephrosis or suspicious renal mass. Moderate nonspecific perinephric stranding present. This is new from the comparison study. No significant adrenal finding. Isodense renal masses and pyeloneph ritis cannot be excluded in the absence of IV contrast. The urinary bladder is without significant fi nding. Uterus is absent. No adnexal or ovarian based mass seen. Pelvic floor laxity is present. No gross evidence for gastric wall mass. Size is normal. Antrum is accentuated by peristalsis. No dil ated large or small bowel. Rectosigmoid colon is tortuous and redundant. There is prominent diverticu losis. Diverticulitis is not suspected. No free air or pneumatosis. Small amount of ascites present. Very small incidental fat only umbilical hernia is seen. Patient has a mild congestion or edema patte rn to the subcutaneous fatty tissues. Disc and bone degenerative changes are present. Patient has a very extensive lymphadenopathy pattern. Large confluent bulky lymphadenopathy is seen i n the periportal and peripancreatic region. There is extensive confluent periaortic/ pericaval lympha denopathy as well. Large bulky iliac chain lymph nodes are present and numerous small inguinal lymph nodes are present. The lymphadenopathy pattern is substantially progressive from March 2017. No interv ening studies available. A sample lymph node near the left inguinal canal origin measures 5.4 x 3.9 c m currently. Lymph node previously measured 4.4 x 2.2 cm. Patient also has numerous bulky mesenteric lymph nodes. These are substantially progressive as well. Lymph node measurement is difficult due to the confluent nature of the adenopathy, indiscrete margins and isodensity with bowel and vasculature on this non IV contrast study. IMPRESSION: No bowel obstruction, free air or surgically emergent finding. Patient has very extensive abdominal and pelvic lymphadenopathy substantially progressive from March 28. Small amount of ascites. Full findings detailed in the body of the report. Full assessment is limited is the absence of IV contrast.
[2018-06-07] MEDS ORDERED: NA CHLORIDE 0.9% 250 ML ONE (10:03)
[2018-06-07 12:06] VITALS: BP 106/74; TEMP 97.8
--- NOTE | 2018-06-09 16:34 | DS ---
Date of Discharge: 06/07/2018 Disposition: Discharged to go home. Physical Examination: HEENT: Unremarkable. Lungs: Clear to auscultation except some minimum rales in right lung base unchanged, not in respirat ory distress. Heart: Sounds normal. Abdomen: Soft. Bowel sounds normal. No guarding, rigidity, tenderness, or distention. Extremities: No leg edema. Discharge Medications/instruction: Continue all prior home medications except stop aspirin, stop falguni pidogrel, stop metformin, stop glimepiride. Follow up at my office in 2 weeks. Get blood test done on 06/09/2018 as per order from Dr. Benedict. Laboratory Data: Labs done during this hospitalization when she first came into the hospital, white count 10.5, hemoglobin 9.7, platelets 30, and last blood work done today on day of discharge, white c ount 11.7, hemoglobin 8.8, platelets 20. Her last chemistry today sodium 133, potassium 4.1, chlorid e 98, bicarb 28, BUN 37, creatinine 1.20, glucose 167. CAT scan of abdomen done in the emergency karina m shows no evidence of bowel obstruction or any surgically emergent finding. The patient has extensi ve abdominal and pelvic lymphadenopathy substantially progressive from March 2017. Small amount of as cites present. Hospital Course: An 82-year-old female patient admitted to the hospital after she was found unrespon sive at home with low blood sugar. Please see dictated H and P for more information. The patient wa s evaluated in the emergency room. She was admitted to the hospital with hypoglycemia problem. The patient had symptomatic significant hypoglycemia and she required multiple doses of IV D50 glucose so lution and continuous IV fluid using dextrose solution. Initially, she was on D5W, then we changed o noreen to D10 that day and monitor blood sugar very frequently. After first 24 to 36 hours, her hypogly cemia problem resolved and we were able to discontinue IV fluid and she was able to maintain adequate level of blood sugar without any IV support. She is tolerating diet very well. It was recommended to her that she should discontinue her glimepiride and metformin, and try to control her diabetes onl y with insulin injection that she takes and down the line if we need to consider any adjustment on me dication, we will do so. She also takes chemotherapy drug call Revlimid as per her oncologist Dr. Darius phillips in [place] for CLL and I did talk to Dr. Benedict and as per his recommendation, the patient and famil y was informed that the patient should not take any aspirin. If her platelet count is less than 30, and she should not take any Plavix if platelet count is less than 50. As per recommendation from Dr. Benedict, I did give her 1 unit of single donor platelet transfusion on the day of discharge and then chivo bernstein was discharged to go home. She gets weekly blood tests done at our hospital per Dr. Benedict, which wi ll be done this coming week on Friday and after that we will decide at what point for her to restart aspirin and/or Plavix. Her Revlimid was discontinued during this hospitalization as per recommendat ion from Dr. Benedict and family was made aware of that. Her other medical problems remained stable. Th ere was no evidence of any bleeding and congestive heart failure problem remained stable as well. Final Diagnoses: 1.Hypoglycemia. 2.Hypomagnesemia. 3.Thrombocytopenia. 4.Anemia. 5.Chronic lymphocytic leukemia. 6.Coronary artery disease. 7.Chronic kidney disease, stage 3. 8.Congestive heart failure, chronic, systolic. 9.Aortic valve stenosis. 10.Atrial fibrillation, paroxysmal. 11.Diabetes mellitus, type 2. 12.Hyperlipidemia. 13.Hypertension. 14.Diverticulosis. 15.Gastroesophageal reflux disease. DELANO/MODL Voice ID: [id number] Report ID: [id number]
== END 2018-06-07 13:45 | disposition home or self-care (01) | DRG 638 ==
LOC: ER 00:14 → ERHOLD 02:13 → 2ND 03:54 → 4TH 21:30
PROVIDERS: ADMIT Internal Medicine; ATTEND Internal Medicine
PROC: 30233R1 Transfusion of Nonautologous Platelets into Peripheral Vein, Percutaneous Approach (ICD-10-PCS; principal; 2018-06-07)
DX: E11.649 Type 2 diabetes mellitus with hypoglycemia without coma (principal); C91.10 Chronic lymphocytic leukemia of B-cell type not having achieved remission; I50.22 Chronic systolic (congestive) heart failure; I13.0 Hypertensive heart and chronic kidney disease with heart failure and stage 1 through stage 4 chronic kidney disease, or unspecified chronic kidney disease; D69.6 Thrombocytopenia, unspecified; D64.9 Anemia, unspecified; E11.22 Type 2 diabetes mellitus with diabetic chronic kidney disease; E78.5 Hyperlipidemia, unspecified; I25.10 Atherosclerotic heart disease of native coronary artery without angina pectoris; N18.3 Chronic kidney disease, stage 3 (moderate); K21.9 Gastro-esophageal reflux disease without esophagitis; K57.90 Diverticulosis of intestine, part unspecified, without perforation or abscess without bleeding; E83.42 Hypomagnesemia; Z79.82 Long term (current) use of aspirin; Z79.4 Long term (current) use of insulin; Z88.8 Allergy status to other drugs, medicaments and biological substances; Z95.2 Presence of prosthetic heart valve; Z95.5 Presence of coronary angioplasty implant and graft
CPT/HCPCS: 36415; 70450; 71045; 74176; 80048; 80076; 82150; 82550; 82553; 82962; 83690; 83735; 83880; 84484; 85025; 85610; 85730; 86900; 86901; 93005; 97163; 99285; J2270; J2405; P9035

== ENCOUNTER 2018-08-30 04:39 | Inpatient (IN) | payer OTHER ==
[2018-08-30 05:15] LABS: Absolute Lymphocytes (CBC) 31.6 K/uL (0.7-4.9); Absolute Monocytes 0.2 K/uL (0.1-1.3); Absolute Neutrophil 1.3 K/uL (1.8-8.0); Basophils % 0.2 % (0-1.3); Eosinophils % 0.1 % (0-4.4); Hematocrit 30.2 % (36.0-45.0); MCH 34.8 pg (27.0-35.0); MCV 105.4 fL (80-100); Monocytes % 0.7 % (3.3-12.3); RBC Red Blood Cell Count 2.87 M/uL (3.86-4.86)
[2018-08-30 05:17] LABS: Protime INR 1.13
[2018-08-30] MEDS ORDERED: NA CHLORIDE 0.9% 1,000 ML ONE (05:23)
[2018-08-30 05:31] LABS: ALT/SGPT 10 U/L (12-78); AST/SGOT 17 U/L (15-37); Albumin 3.2 g/dL (3.4-5.0); Alkaline Phosphatase 83 U/L (45-117); BUN Blood Urea Nitrogen 60 mg/dL (7-18); Bicarbonate 23 mmol/L (21-32); Bilirubin Direct 0.2 mg/dL (0-0.2); Bilirubin Total 0.4 mg/dL (0.2-1.0); Glucose Level 194 mg/dL (74-106); Magnesium 1.9 mg/dL (1.8-2.4); NT PRO-BNP 2521 pg/mL (<450); Potassium 5.5 mmol/L (3.5-5.1); Protein, Total 6.7 g/dL (6.4-8.2); Sodium Level 138 mmol/L (136-145); Troponin (Emerg Dept Use Only) < 0.02 ng/mL (0.0-0.045)
--- OUTSIDE RECORDS SUMMARY | 2018-08-30 05:31 | XMS REPORT | Continuity of Care Document ---
:1935 Author Organization Interface Problems Problem Status Onset Classification Date Comments Source Date Reported C91.10 - CHRONIC Active OPID LYMPHOCYTIC LEUK 018 [place] OPID OF B- 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[facility] systolic heart [address] [place] [address] failure 3 MONTHS Active [address] HOSPITAL F/U Active [address] CHEST PAIN Active [address] Nonrheumatic [facility] aortic stenosis [address] [place] [address] HOSPITAL FOLLOW Active [facility] UP [address] [place] [address] SHORTNESS OF Active [facility] BREATH [address] [place] [address] DR HAIRSTON TOLD PT Active [facility] TO [address] 1 WK POST OP F/U Active [address] PULMONARY Active [facility] FUNCTION TEST [address] [place] [address] AORTIC STENOSIS Active [address] ARTIC STENOSIS Active [address] TAVR Active [address] DX:CAD / Active [address] CCL/R Active [address] A FIB Active [address] SCI Active 012 Rehabilitation LUMBAR RAD Active [place] [address] Medical [place], Rehabilitation Spinal stenosis Active Problem Data [facility] lumbar 012 8 migrated Medical region<sup>4, from [facility], 5</sup> Centricity Center for Adv on 06/20/15. Heart Failure Low back Resolved Problem Data [facility] pain<sup>1, 2, 012 8 migrated Medical 3</sup> from Center, OPID Centricity [place] on 06/20/15. LUMBAR Active [facility] RADICULOPATHY [address] [place] [address] Diabetes Resolved Problem OPID 997 8 [place],[facility], [facility] for Adv Heart Failure, OPID [facility] Stented artery Active Problem [address], OPID [place], [facility] Breast biopsy and Resolved Problem [place] [address] Medical procedures Center, OPID [place] CAD - Coronary Active Problem [facility] artery disease [address] [place] [address], OPID [place] DM - Diabetes Active Problem [address], OPID [place] Heart attack Resolved Problem [address], OPID [place] Laminectomy Resolved Problem [address], OPID [place] Lumbar region Resolved Problem [facility] injury [address] [place] [address], OPID [place] O/E - pain Resolved Problem [address], OPID [place] Breast biopsy and Resolved Problem [address] Center procedures CAD - Coronary Active Problem OPID artery disease 3 [place],[facility] Cataract Resolved Problem [address] DM - Diabetes Active Problem OPID mellitus 3 [place],[facility] Heart attack Active Problem OPID 3 [place],[facility] Laminectomy Active Problem OPID 3 [place],[facility] Lumbar region Resolved Problem [address] O/E - pain Active Problem OPID 3 [place],[facility] Stented artery Active Problem OPID 3 [place],[facility] Cataract Resolved Problem OPID 6 [place],[facility] Severe aortic Active Problem OPID stenosis 8 [place],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[address] [place] [address] Center replacement Essential [facility] hypertension [address] [place] [address] Center Hyperlipidemia, [facility] unspecified [address] [place] [address] Center Type 2 diabetes [facility] mellitus with [address] [place] [address] Center unspecified complications Final: Illness, [facility] unspecified [address] [place] [address] Center Shortness of [facility] breath [address] [place] [address] Center 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 [address] [place] [address] [address] Center Alkalosis [address] Center Type 2 diabetes [facility] mellitus with Medical Center hyperglycemia Other disorders [facility] of phosphorus [address] [place] [address] Center metabolism Hypermagnesemia [address] Center Thrombocytopenia, [facility] unspecified [address] [place] [address] Center Cardiomyopathy, [facility] unspecified [address] [place] [address] Center Acute kidney [facility] failure, [address] [place] [address] Center unspecified Hypo-osmolality [facility] and hyponatremia [address] [place] [address] Atherosclerotic [facility] heart disease of [address] [place] [address] cabazon coronary artery without angina pectoris 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[facility] automatic cardiac [address] [place] [address] defibrillator 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[address] [place] [address]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 Presence of [facility] coronary [address] [place] [address] angioplasty implant and graft Claustrophobia [address] Center Anxiety disorder, [facility] unspecified [address] [place] [address] Monoarthritis, [facility]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[address] [place] [address] classified, 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 [address] [place] [address] Center MCFP use of [facility] insulin [address] [place] [address] [facility] use of [facility] anticoagulants [address] [place] [address] Center Constipation, [facility] unspecified [address] [place] [address] Center Other [facility] chondrocalcinosis [address] [place] [address] Center , right knee Other [facility] chondrocalcinosis [address] [place] [address] , left wrist Other [facility] chondrocalcinosis [address] [place] [address] Center , right wrist Hyperkalemia [address] Splenomegaly, not OPID elsewhere [address] [place] [address] classified Localized OPID enlarged lymph [address] [place] [address] nodes Type 2 diabetes [facility] mellitus without Medical Center complications Acute myocardial [facility] infarction, [address] [place] [address] unspecified Spinal stenosis, [facility] lumbar region [address] [place] [address] without neurogenic claudication Other specified [facility] postprocedural [address] [place] [address] states Anemia, [facility] unspecified [address] [place] [address] [address] [facility] [address] [place] [address] 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 [address] [place] [address] valve Acute respiratory [facility] failure with [address] [place] [address] Center hypoxia Ischemic [facility]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 [address] [place] [address] LUMBOSACRAL Active [facility] NEURITIS NOS Medical [place] LUMBAR DISC Active DISPLACEMENT Rehabilitation, [facility] OTHER GENERAL Active SYMPTOMS Rehabilitation ILLNESS, Active [facility] Center SHORTNESS OF Active [facility] BREATH [facility] ANEMIA, Active [facility] Medications Medication Details Route Status Patient Ordering Order Source Instructions Provider Date potassium 20 mEq=1 tab, Active 05/01/ [facility] chloride 20 mEq PO, Daily, # 2018 Medical oral tablet, 30 tab, 3 Center extended release Refill(s) valsartan 40 mg 40 mg=1 tab, Active [facility] oral tablet PO, BID, # 60 2018 Medical tab, 6 Center Refill(s) clopidogrel 75 75 mg=1 tab, Active [facility] mg oral tablet PO, Daily, # 2018 Medical 30 tab, 6 Center Refill(s) carvedilol 12.5 12.5 mg=1 Active [facility] mg oral tablet tab, PO, BID, 2018 Medical # 60 tab, 6 Center Refill(s) bumetanide 1 mg 1 mg=1 tab, Active [facility] oral tablet PO, Daily, # 2018 Medical 30 tab, 6 Center Refill(s) Bumex 1 mg, 1 tab, No Longer Route: PO, Active 2017 Medical Drug form: [place] TAB, Daily, Dosing Weight 64.091, kg, Start date: 04/30/18 9:00:00 CDT, Duration: 30 day, Stop date: 05/29/18 9:00:00 CDTNotes: (Same As: Bumex) Bumex 2 mg, 8 mL, No Longer [place] Route: IV, 2017 Medical Drug form: [place] INJ, TID, Dosing Weight 64.091, kg, Start date: 04/27/18 13:00:00 CDT, Stop date: 04/29/18 22:00:00 CDTNotes: (Same As: Bumex) Vitamin B 12 250 No Longer [place] microgram, 1 Active 2017 Medical tab, Route: [place] PO, Drug form: TAB, Daily, Dosing Weight 64.091, kg, Start date: 04/26/18 9:00:00 CDT, Duration: 30 day, Stop date: 05/25/18 9:00:00 CDTNotes: (Same As: Vitamin B12) clopidogrel 75 mg, 1 tab, No Longer Route: PO, Active 2017 Medical Drug form: [place] TAB, Daily, Dosing Weight 64.091, kg, Start date: 04/26/18 9:00:00 CDT, Duration: 30 day, Stop date: 05/25/18 9:00:00 CDTNotes: (Same As: Plavix) carvedilol 12.5 mg, 1 No Longer [facility] tab, Route: Active 2018 Medical PO, Drug Center form: TAB, BID, Dosing Weight 64.091, kg, Start date: 04/26/18 9:00:00 CDT, Duration: 30 day, Stop date: 05/25/18 17:00:00 CDTNotes: Give with food. (Same As: Coreg) valsartan 40 mg, 1 tab, No Longer [facility] Route: PO, Active 2017 Medical Drug form: [place] TAB, BID, Dosing Weight 64.091, kg, Start date: 04/26/18 9:00:00 CDT, Duration: 30 day, Stop date: 05/25/18 17:00:00 CDTNotes: Same as [place] Aspirin 81 MG 81 mg, 1 tab, No Longer [facility] Chewable Tablet Route: PO, Active 2017 Medical Drug form: [place] CHE[place]AB, Daily, Dosing Weight 64.091, kg, Start date: 04/26/18 9:00:00 CDT, Duration: 30 day, Stop date: 05/25/18 9:00:00 CDTNotes: Take with food. NIFEdipine 30 mg 30 mg, 1 tab, No Longer [facility] oral tablet, Route: PO, Active 2017 Medical extended release Drug form: [place] ERTAB, Daily, Dosing Weight 64.091, kg, Start date: 04/26/18 9:00:00 CDT, Duration: 30 day, Stop date: 05/25/18 9:00:00 CDT heparin sodium, 5,000 unit, 1 No Longer [place] porcine 2500 mL, Route: Active 2018 Medical UNT/ML SUB-Q, Drug Center Injectable form: INJ, Solution Q12H, Dosing Weight 64.091, kg, Start date: 04/26/18 9:00:00 CDT, Duration: 30 day, Stop date: 05/25/18 21:00:00 CDTNotes: porcine heparin duloxetine 30 mg, 1 cap, No Longer [facility] Route: PO, Active 2017 Medical Drug form: [place] DRC, Daily, Dosing Weight 64.091, kg, Start date: 04/26/18 9:00:00 CDT, Duration: 30 day, Stop date: 05/25/18 9:00:00 CDTNotes: (Same as: Cymbalta) (Do Not Crush) Hydralazine 20 mg, 1 mL, No Longer [facility] Route: IVP, Active 2017 Medical Drug form: Center INJ, Q4H, Dosing Weight 64.091, kg, PRN Hypertension, Start date: 04/25/18 23:08:00 CDT, Duration: 30 day, Stop date: 05/25/18 23:07:00 CDT, SBP>160Notes: (Same as: Apresoline) Push over 5 minutes insulin glargine 8 unit, 0.08 No Longer [place] mL, Route: Active 2017 Medical SUB-Q, Drug Center form: SOLN, Bedtime, Start date: 04/25/18 22:30:00 CDT, Duration: 30 day, Stop date: 05/25/18 21:00:00 CDTNotes: (Same as: Lantus) Do not hold insulin without contacting prescriber WASTE: F/P - Black; E - Municipal Trash Bin "single patient use only" valacyclovir 500 mg, 1 No Longer [facility] tab, Route: Active 2017 Medical PO, Drug Center form: TAB, Q24H, Dosing Weight 64.091, kg, Start date: 04/25/18 21:00:00 CDT, Duration: 30 day, Stop date: 05/24/18 21:00:00 CDTNotes: (Same As: Valtrex) 1.5 ML Insulin 10 unit, Inactive [place] Glargine 300 Route: SUB-Q, 2018 Medical UNT/ML Prefilled Drug form: Center Syringe [Toujeo] SOLN, Bedtime, Dosing Weight 64.091, kg, Start date: 04/25/18 21:00:00 CDT, Duration: 30 day, Stop date: 05/24/18 21:00:00 CDT bumetanide 10 mg 60 mL, Rate: No Longer [place] + Infuse as Active 2017 Medical directed, Center Dosing Weight 64.091, kg, Route: IV, Total Volume: 100 mL, Start Date: 04/25/18 20:32:00 CDT, Duration: 30 day, Stop date: 05/25/18 20:31:00 CDT, Replace Every: 24 hrNotes: (Same as: Bumex) Bumex 1 mg, 4 mL, Inactive [facility] Route: IVP, 2017 Medical Drug form: Center INJ, ONCE, Dosing Weight 64.091, kg, Start date: 04/25/18 20:32:00 CDT, Stop date: 04/25/18 20:32:00 CDTNotes: (Same As: Bumex) Tylenol 650 mg, 2 No Longer [facility] tab, Route: Active 2018 Medical PO, Drug Center form: TAB, Q4H, PRN Pain Score 1-3, Start date: 04/25/18 20:29:00 CDT, Duration: 14 day, Stop date: 05/09/18 20:28:00 CDTNotes: Do not exceed 4 gm/day. (Same as: Tylenol) Calcium 3 gm, 30 mL, No Longer [facility] Gluconate Route: IVPB, Active 2017 Medical PRN, Dosing Center Weight 64.091, kg, PRN Abnormal Lab Result, For NON-ICU Patients Only., Start date: 04/25/18 20:26:00 CDT, Duration: 30 day, Stop date: 05/25/18 20:25:00 CDTNotes: WASTE: F/P - Sink; E - [employer] Trash [employer] Magnesium 1 gm, 100 mL, No Longer [facility] Sulfate Route: IVPB, Active 2017 Medical Drug form: Center INJ, PRN, Dosing Weight 64.091, kg, PRN Abnormal Lab Result, For NON-ICU Patients Only., Start date: 04/25/18 20:26:00 CDT, Duration: 30 day, Stop date: 05/25/18 20:25:00 CDTNotes: WASTE: F/P - Sink; E - [employer] Trash [employer] sodium phosphate 30 mmol, 10 No Longer [facility] mL, Route: Active 2018 Medical IVPB, PRN, [...] CDTNotes: (Same as: Mag-Ox 400) Magnesium oxide [id number] elemental magnesium Dose=____mg magnesium oxide (___mg elemental magnesium) potassium 30 mmol, 10 No Longer [facility] phosphate mL, Route: Active 2018 Medical IVPB, PRN, Center Dosing Weight 64.091, kg, PRN Abnormal Lab Result, For NON-ICU Patients Only., Start date: 04/25/18 20:26:00 CDT, Duration: 30 day, Stop date: 05/25/18 20:25:00 CDTNotes: (Same as: K Phosphate.) 1 mMol phoshate has 1.47 mEq potassium Infuse over 4 hours Potassium 10 mEq, 50 No Longer [facility] Chloride mL, Route: Active 2018 [facility] IVPB, Drug [place] form: INJ, PRN, Dosing Weight 64.091, kg, PRN Abnormal Lab Result, For NON-ICU Patients Only, Start date: 04/25/18 20:26:00 CDT, Duration: 30 day, Stop date: 05/25/18 20:25:00 CDTNotes: (Same as: KCL) Infuse over 2 hours. potassium 2 pkt, Route: No Longer [facility] phosphate-sodium PO, Drug Active 2018 Medical phosphate [...] Insulin Lispro 1 unit, 0.01 No Longer [place] mL, Route: Active 2017 Medical SUB-Q, Drug [...] from _Date bumetanide 1 mg See Active [facility] oral tablet Instructions, 2018 Medical 2 tab PO qAM Center and 1 tab PO qPM, # 90 tab, 3 Refill(s), Pharmacy: [facility]/pharmacy #[id number] valsartan 40 mg 40 mg=1 tab, Active [facility] oral tablet PO, BID, # 60 2018 Medical tab, 3 Center Refill(s), Pharmacy: [facility]/pharmacy #[id number] carvedilol 12.5 12.5 mg=1 No Longer [place] mg oral tablet tab, PO, BID, Active 2017 Medical 0 Refill(s) Center Neulasta 6 mg, 0.6 mL, Inactive [facility] Route: SUB-Q, 2017 Medical Drug form: [place] INJ, On Adm, Start date: 03/20/18 8:00:00 CDT, Duration: 1 doses or times, Stop date: 03/20/18 23:00:00 CDTNotes: (Same as: Neulasta) Restricted to Outpatient Benadryl 50 mg, 1 mL, Inactive [facility] Route: IVP, 2017 Medical Drug form: [place] INJ, ONCALL, Start date: 03/19/18 7:00:00 CDT, Duration: 1 doses or times, Stop date: 03/19/18 21:00:00 CDTNotes: (Same as: Benadryl) Tylenol 650 mg, 2 Inactive [facility] tab, Route: 2018 Medical PO, Drug Center form: TAB, ONCALL, Start date: 03/19/18 7:00:00 CDT, Duration: 1 doses or times, Stop date: 03/19/18 21:00:00 CDTNotes: Do not exceed 4 gm/day. (Same as: Tylenol) dexamethasone 8 mg, 2 mL, Inactive [facility] Route: IV, 2017 Medical Drug form: [place] ANÍBALKELLI, Start date: 03/19/18 7:00:00 CDT, Duration: 1 doses or times, Stop date: 03/19/18 21:00:00 CDT meperidine 25 mg, 1 mL, No Longer [facility] Route: IVP, Active 2017 Medical Drug form: [place] INJ, Q2H, PRN Chills/Rigors , Start date: 03/19/18 7:00:00 CDT, Duration: 1 day, Stop date: 03/20/18 6:59:00 CDTNotes: (Same as: Demerol) "Use Precaution in Elderly, Seizure disorders, and Renal impairment" riTUXimab + 600 mg, 60 Inactive [facility] Sodium Chloride mL, Route: 2017 Medical 0.9% IV 190 mL IV, Drug [...] mg ondansetron 8 mg, 50 mL, Inactive [facility] Route: IVPB, 2017 Medical Drug form: KELLI Thompson, Start date: 03/19/18 7:00:00 CDT, Duration: 1 doses or times, Stop date: 03/19/18 21:00:00 CDTNotes: (Same as: Zofran) Use with 50 mL NS bag bendamustine 80 Route: IV, Inactive [facility] mg + Overfill Drug form: 2018 Medical Diluent KELLI ESPINOZA, Center Estimated 5 mL + Start date: Sodium Chloride 03/19/18 0.9% IV 50 mL 7:00:00 CDT, Duration: 1 doses or times, Stop date: 03/19/18 21:00:00 CDTNotes: (Same as: Jose Alfredo) WASTE: F/P - Black; E - Yellow CHEMOTHERAPY; Infuse entire contents for full dose valACYclovir 500 500 mg=1 tab, Active [facility] mg oral tablet PO, Q24H, # 2018 Medical 90 tab, 1 Center Refill(s), Pharmacy: [facility]/pharmacy #[id number] Acetaminophen 325 mg, PO, Active [facility] QID, 0 2018 Medical Refill(s) Center NIFEdipine 30 mg 30 mg=1 tab, Active [facility] oral tablet, PO, Daily, # 2018 Medical extended release 30 tab, 0 Center Refill(s) doxycycline 100 mg=1 cap, Active [place] hyclate 100 MG PO, Q12H, # 2018 Medical Oral Capsule 20 cap, 0 Center Refill(s), Pharmacy: [facility]/pharmacy #[id number] Neulasta 6 mg, 0.6 mL, Inactive [place] Route: SUB-Q, 2017 Medical Drug form: Berta SPANGLER JOELLESARBA, Start date: 02/11/18 15:35:00 CDT, Duration: 1 doses or times, Stop date: 02/12/18 0:00:00 CDTNotes: (Same as: Neulasta) Restricted to Outpatient 1.5 ML Insulin 10 unit, Active [place] Glargine 300 SUB-Q, 2018 Medical UNT/ML Prefilled Bedtime, # 5 Center Syringe [Toujeo] mL, 0 Refill(s) carvedilol 6.25 6.25 mg=1 Active [facility] mg oral tablet tab, PO, BID, 2018 Medical 0 Refill(s) Center Aspirin 81 MG 81 mg=1 tab, Active [facility] Chewable Tablet PO, Daily, 0 2018 Medical Refill(s) [place] cyanocobalamin 250 Active [facility] 500 mcg microgram=0.5 2018 Medical sublingual tab, PO, Center tablet Daily, # 45 tab, 0 Refill(s) valACYclovir 500 500 mg=1 tab, Active [place] mg oral tablet PO, Q24H, 0 2018 Medical Refill(s) Center potassium 40 mEq=2 tab, Active [place] chloride 20 mEq PO, Daily, 0 2018 Medical oral tablet, Refill(s) Center extended release pantoprazole 40 40 mg=1 tab, Active [facility] mg oral enteric PO, Before 2018 Medical coated tablet Breakfast, 0 Center Refill(s) levofloxacin 250 250 mg=1 tab, Active [place] mg oral tablet PO, [id number], 2018 Medical 0 Refill(s) Center Furosemide 40 MG 40 mg=1 tab, Active [place] Oral Tablet PO, BID, 0 2018 Medical Refill(s) Center fluconazole 100 100 mg=1 tab, Active [facility] mg oral tablet PO, [id number], 2018 Medical 0 Refill(s) Center DULoxetine 30 mg 30 mg=1 cap, Active [facility] oral delayed PO, Daily, 0 2018 Medical release capsule Refill(s) Center clopidogrel 75 75 mg=1 tab, Active [place] mg oral tablet PO, Daily, 0 2018 Medical Refill(s) Center Clonidine 0.1 mg=1 tab, Active [place] Hydrochloride PO, BID, 0 2018 Medical 0.1 MG Oral Refill(s) Center Tablet magnesium oxide 800 mg=2 tab, Active [place] 400 mg oral PO, Daily, X 2018 Medical tablet 30 day, # 60 Center tab, 0 Refill(s) Granix 300 Inactive [facility] microgram, 2018 Medical 0.5 mL, Center Route: SUB-Q, Drug form: SOLN, ONCE, Dosing Weight 63.273, kg, Priority: Routine, Start date: 02/06/18 8:00:00 CDT, Stop date: 02/06/18 8:00:00 CDTNotes: (Same as: Granix) Do not administer earlier than 24 hours after or in the 24 hours prior to cytotoxic chemotherapy. insulin, 10 unit, 0.1 Inactive [facility] isophane mL, Route: 2018 Medical SUB-Q, Drug Center form: INJ, Q8H-06, [...] _Date Insulin regular 5 unit, 0.05 Inactive [facility] mL, Route: 2018 Medical IV, Drug Center form: SOLN, ONCE, Dosing [...] from _Date insulin, 15 unit, 0.15 Inactive [facility] isophane mL, Route: 2018 Medical SUB-Q, Drug [...] _Date dexamethasone 8 mg, 2 mL, Inactive [facility] Route: IV, 2017 Medical Drug form: Center INJ, ONCE, Start date: 02/04/18 22:27:00 CDT, Stop date: 02/04/18 22:27:00 CDTNotes: Concentration : 4mg/ml dexamethasone 8 mg, 0.8 mL, Inactive [facility] Route: IV, 2017 Medical Drug form: [place] INJ, ONCE, Start date: 02/04/18 22:21:00 CDT, Stop date: 02/04/18 22:21:00 CDTNotes: MEDICATION WASTE Product Size: 10 mg Product Wasted: __2_ mg dexamethasone 8 mg, 0.8 mL, Inactive [facility] Route: IV, 2017 Medical Drug form: [place] INJ, ONCALL, Start date: 02/04/18 21:00:00 CDT, Duration: 1 doses or times, Stop date: 02/05/18 20:59:00 CDTNotes: MEDICATION WASTE Product Size: 10 mg Product Wasted: __2_ mg EPINEPHrine 1 0.1 mg, 1 mL, No Longer [place] mg/10ml Route: IV, Active 2018 Medical (1:10,000) Drug form: [place] injectable KELLI ESPINOZA, solution PRN Allergic reaction, Start date: 02/04/18 21:00:00 CDT, Duration: 1 day, Stop date: 02/05/18 20:59:00 CDTNotes: Luer lock syringe Zofran 8 mg, 4 mL, Inactive [facility] Route: IV2017 Medical Drug form: [place] INJ, ONCALL, Start date: 02/04/18 21:00:00 CDT, Duration: 1 doses or times, Stop date: 02/05/18 20:59:00 CDTNotes: (Same as: Zofran) MEDICATION WASTE Product Size: 4 mg Product Wasted: ___0 mg Solu-CORTEF 100 mg, 2 mL, No Longer [facility] Route: IV, Active 2017 Medical Drug form: [place] PDR/INJ, ONCALL, PRN Allergic reaction, Start date: 02/04/18 21:00:00 CDT, Duration: 1 day, Stop date: 02/05/18 20:59:00 CDTNotes: (Same as: Solu-CORTEF) bendamustine 110 Route: IV, No Longer [facility] mg + Overfill Drug form: Active 2018 Medical Diluent JOELLE ESPINOZAALL, Center Estimated 5 mL + Start date: Sodium Chloride 02/04/18 0.9% IV 50 mL 21:00:00 CDT, Duration: 1 doses or times, Stop date: 02/05/18 20:59:00 CDTNotes: (Same as: [place]) WASTE: F/P - Black; E - Yellow CHEMOTHERAPY; Infuse entire contents for full dose Benadryl 50 mg, 1 mL, No Longer [place] Route: IV, Active 2018 Medical Drug form: Center INJ, ONCALL, PRN Allergic reaction, Start date: 02/04/18 18:02:00 CDT, Duration: 1 day, Stop date: 02/05/18 18:01:00 CDTNotes: (Same as: Benadryl) Elitek + Sodium 6 mg, Route: Inactive [place] Chloride 0.9% IV IVPB, JOELLESABRA, [facility] Medical 50 mL Start date: [place] 02/04/18 18:00:00 CDT, Duration: 1 doses or times, Stop date: 02/05/18 17:59:00 CDTNotes: Do not filter during preparation or infusion. IV line should be flushed with at least 15 mL saline prior to and following rasburicase infusion Alprazolam 0.25 0.25 mg, 1 No Longer [place] MG Oral Tablet tab, Route: Active 2018 Medical PO, Drug Center form: TAB, TID, Dosing Weight 63.273, kg, PRN as needed for anxiety, Start date: 02/04/18 10:33:00 CDT, Duration: 30 day, Stop date: 03/06/18 10:32:00 CDTNotes: With food or milk (Same as: Xanax) Humalog 15 unit, 0.15 No Longer [place] mL, Route: Active 2017 Medical [facility], Drug Center form: SOLN, TID, Start date: 02/03/18 13:00:00 CDT, Stop date: 03/05/18 9:00:00 CDTNotes: (Same as: Humalog ) Roll in palms of hands gently; Do not shake `vigorously. "Single Patient Use Only " WASTE: F/P - Black; E - Municipal Trash Bin Stable for 28 days at room temperature. Expires in days from _Date Insulin Glargine 10 unit, No Longer [place] 100 UNT/ML Route: SUB-Q, Active 2017 Medical Injectable Daily, Dosing Center Solution Weight 63.273, kg, Start date: 02/03/18 9:00:00 CDT, Duration: 30 day, Stop date: 03/04/18 9:00:00 CDT Insulin Glargine 10 unit, 0.1 No Longer [place] 100 UNT/ML mL, Route: Active 2017 Medical Injectable SUB-Q, Drug Center Solution form: SOLN, Bedtime, Dosing Weight 63.273, kg, Start date: 02/02/18 21:00:00 CDT, Stop date: 03/03/18 21:00:00 CDTNotes: (Same as: Lantus) Do not hold insulin without contacting prescriber WASTE: F/P - Black; E - Municipal Trash Bin "single patient use only" Magnesium Oxide 800 mg, 2 No Longer [place] tab, Route: Active 2017 Medical PO, Drug Center form: TAB, BID, Dosing Weight 63.273, kg, Start date: 02/02/18 17:00:00 CDT, Duration: 30 day, Stop date: 03/04/18 9:00:00 CDTNotes: (Same as: Mag-Ox 400) Magnesium oxide [id number] elemental magnesium Dose=____mg magnesium oxide (___mg elemental magnesium) Ondansetron 4 mg, 2 mL, No Longer [place] Route: IVP, Active 2017 Medical Drug form: Center INJ, Q4H, Dosing Weight 63.273, kg, PRN Nausea, Start date: 02/02/18 16:15:00 CDT, Duration: 30 day, Stop date: 03/04/18 16:14:00 CDTNotes: (Same as: [place]) MEDICATION WASTE Product Size: 4 mg Product Wasted: ___ mg Magnesium Oxide 800 mg, Inactive [place] Route: PO, 2017 Medical Drug form: Center TAB, Daily, Dosing Weight 63.273, kg, Start date: 02/02/18 15:26:00 CDT, Duration: 30 day, Stop date: 03/04/18 9:00:00 CDT Versed 0.5 mg, Inactive [facility] Route: IV, 2018 Medical ONCE, Dosing Center Weight 63.273, kg, Start date: 02/02/18 14:49:00 CDT, Stop date: 02/02/18 14:49:00 CDT Fentanyl 25 microgram, Inactive [facility] Route: IV, 2018 Medical ONCE, Dosing Center Weight 63.273, kg, Start date: 02/02/18 14:49:00 CDT, Stop date: 02/02/18 14:49:00 CDT Versed 0.5 mg, Inactive [facility] Route: IV, 2018 Medical ONCE, Dosing Center Weight 63.273, kg, Start date: 02/02/18 14:44:00 CDT, Stop date: 02/02/18 14:44:00 CDT Fentanyl 25 microgram, Inactive [facility] Route: IV, 2018 Medical ONCE, Dosing Center Weight 63.273, kg, Start date: 02/02/18 14:44:00 CDT, Stop date: 02/02/18 14:44:00 CDT Furosemide 40 MG 40 mg, 1 tab, No Longer [place] Oral Tablet Route: PO, Active 2017 Medical Drug form: Center TAB, BID, Dosing Weight 63.273, kg, Start date: 02/01/18 17:00:00 CDT, Duration: 30 day, Stop date: 03/03/18 9:00:00 CDTNotes: (Same as: Lasix) May cause GI upset. Give with food or milk. Vitamin B12 1,000 Inactive [facility] microgram, 1 2018 Medical mL, Route: Center IM, Drug form: INJ, ONCE, Dosing Weight 63.273, kg, Start date: 02/01/18 12:18:00 CDT, Stop date: 02/01/18 12:18:00 CDTNotes: (Same As: Vitamin B12) Rasburicase 6 mg, Route: Inactive [facility] IV, ONCE, 2018 Medical Dosing Weight [...] [place] chloride 20 mEq tab, Route: Active 2017 Medical oral tablet, PO, Drug [place] extended release form: ERTAB, Daily, Dosing Weight 63.273, kg, Start date: 01/31/18 9:00:00 CDT, Duration: 30 day, Stop date: 03/01/18 9:00:00 CDT potassium 40 mEq, 2 No Longer [place] chloride 20 mEq tab, Route: Active 2017 Medical oral tablet, PO, Drug [place] extended release form: ERTAB, Daily, Dosing Weight [...] ;s with feeding tube less than 14 Occ[place] (Dobhoff, J-tube etc) and pediatric and patients. With food and full glass of water Vitamin B 12 250 No Longer [place] microgram, 1 Active 2017 Medical tab, Route: [place] PO, Drug form: TAB, Daily, Dosing Weight 63.273, kg, Start date: 01/30/18 9:00:00 CDT, Duration: 30 day, Stop date: 02/28/18 9:00:00 CDTNotes: (Same As: Vitamin B12) Lasix 40 mg, 4 mL, No Longer [place] Route: IVP, Active 2017 Medical Drug form: Center INJ, BID, Dosing Weight 63.273, kg, Start date: 01/29/18 17:00:00 CDT, Stop date: 02/28/18 9:00:00 CDTNotes: (Same as: Lasix) MEDICATION WASTE Product Size: 40 mg Product Wasted: ___ mg Humulin N 8 unit, 0.08 Inactive [facility] mL, Route: 2017 Medical SUB-Q, Drug Center [...] _Date insulin, 20 unit, 0.2 No Longer [facility] isophane mL, Route: Active 2017 [facility]-, Drug Center form: INJ, Q8H-06, Dosing Weight [...] _Date dexamethasone 40 mg, 10 No Longer [facility] tab, Route: Active 2017 [facility] PO, Drug Center form: TAB, Q24H, Start date: 01/29/18 14:00:00 CDT, Duration: 2 doses or times, Stop date: 01/30/18 14:00:00 CDTNotes: Give with food. (Same As: Decadron) insulin regular 10 unit, 0.1 Inactive [facility] 100 units/mL mL, Route: 2017 [facility] IV, Drug Center recombinant form: SOLN, ONCE, [...] _Date insulin regular 10 unit, 0.1 Inactive [facility] 100 units/mL mL, Route: 2018 [facility] IV, Drug Center recombinant form: SOLN, ONCE, [...] _Date Ferrlecit 125 mg, 10 No Longer [facility] mL, Route: Active 2018 [facility] IVPB, Daily, Center Dosing Weight 63.273, kg, Start date: 01/29/18 10:46:00 CDT, Duration: 10 doses or times, Stop date: 02/07/18 9:00:00 CDTNotes: (sodium ferric gluconate complex (elemental iron) 62.5 mg/5 ml INJ) "Limited stability. Use immediately after admixture" (Same as: Ferrlecit) MEDICATION WASTE Product Size: 62.5 mg Product Wasted: ___ mg Vitamin B 12 1,000 Inactive [facility] microgram, 1 2018 Medical mL, Route: [place] IM, Drug form: INJ, ONCE, Dosing Weight 63.273, kg, Start date: 01/29/18 9:01:00 CDT, Stop date: 01/29/18 9:01:00 CDTNotes: (Same As: Vitamin B12) Lasix 40 mg, 4 mL, Inactive [facility] Route: IVP, 2018 Medical Drug form: [place] INJ, BID, Dosing Weight 63.273, kg, Start date: 01/29/18 9:00:00 CDT, Duration: 30 day, Stop date: 02/27/18 17:00:00 CDTNotes: (Same as: Lasix) MEDICATION WASTE Product Size: 40 mg Product Wasted: ___ mg insulin, 7 unit, 0.07 Inactive [facility] isophane mL, Route: 2018 Medical SUB-Q, Drug [...] Paramjit packet 1 pkt, Route: No Longer [facility] PO, Drug Active 2017 Medical Form: PWDR, Center Dosing Weight 63.273, kg, BID-Before Meals, Start date: 01/28/18 16:30:00 CDT, Duration: 14 day, Stop date: 02/11/18 7:30:00 CDTNotes: (Same as: Paramjit Griffiths) Insulin Lispro 6 unit, 0.06 No Longer [facility] mL, Route: Active 2017 Medical SUB-Q, Drug [...] Dextrose 50% 12.5 gm, 25 No Longer [facility] Syringe mL, Route: Active 2017 Medical IVP, Drug Center Form: INJ, Dosing Weight 63.273, kg, PRN, PRN Blood Glucose Results, Start date: 01/28/18 15:41:00 CDT, Duration: 30 day, Stop date: 02/27/18 15:40:00 CDT Glucagon 1 mg, Route: No Longer [place] IM, Drug Active 2018 Medical form: Center PDR/INJ, PRN, Dosing Weight 63.273, kg, PRN Blood Glucose Results, Start date: 01/28/18 15:41:00 CDT, Duration: 30 day, Stop date: 02/27/18 15:40:00 CDT insulin, 10 unit, 0.1 No Longer [place] isophane mL, Route: Active 2017 Medical SUB-Q, [...] from _Date Rasburicase 6 mg, Route: Inactive [place] IV, ONCE, 2018 Medical Dosing Weight Center [...] Insulin Lispro 8 unit, 0.08 No Longer [place] mL, Route: Active 2017 Medical SUB-Q, Drug [...] _Date Insulin regular 10 unit, 0.1 Inactive [facility] mL, Route: 2018 Medical IV, Drug Center form: SOLN, ONCE, Dosing [...] 3 ML Insulin 5 unit, 0.05 Inactive [facility] Glargine 100 mL, Route: [address] [place] [address] UNT/ML Prefilled SUB-Q, Drug [place] Syringe [Lantus] form: SOLN, ONCE, Dosing Weight 63.273, kg, Start date: 01/28/18 11:13:00 CDT, Stop date: 01/28/18 11:13:00 CDTNotes: Same as: Lantus) Do not hold insulin without contacting prescriber WASTE: F/P - Black; E - Municipal Trash Bin Insulin Lispro 10 unit, Inactive [facility] Route: SUB-Q, 2018 Medical ONCE, Dosing Center Weight 63.273, kg, Start date: 01/28/18 11:11:00 CDT, Stop date: 01/28/18 11:11:00 CDT NIFEdipine 30 mg 30 mg, 1 tab, No Longer [facility] oral tablet, Route: PO, Active 2018 Medical extended release Drug form: Center ERTAB, Daily, Dosing Weight 63.273, kg, Start date: 01/28/18 9:00:00 CDT, Duration: 30 day, Stop date: 02/26/18 9:00:00 CDT potassium 20 mEq, 1 No Longer [place] chloride 20 mEq tab, Route: Active 2018 [...] Patients with feeding tube less than 14 Occ[place] (Dobhoff, J-tube etc) and pediatric and patients. With food and full glass of water Lovenox 30 mg, 0.3 No Longer [place] mL, Route: Active 2018 Medical SUB-Q, Drug Center form: INJ, [id number], Dosing Weight 63.273, kg, For CrCl Notes: (Same as: Lovenox) Magnesium Oxide 800 mg, 2 No Longer [place] tab, Route: Active 2018 Medical PO, Drug Center form: TAB, Daily, Dosing Weight 63.273, kg, Start date: 01/28/18 9:00:00 CDT, Duration: 30 day, Stop date: 02/26/18 9:00:00 CDTNotes: (Same as: Mag-Ox 400) Magnesium oxide [id number] elemental magnesium Dose=____mg magnesium oxide (___mg elemental magnesium) Docusate Sodium 100 mg, 1 No Longer [place] 100 MG Oral cap, Route: Active 2018 Medical Capsule [Colace] PO, Drug Center form: CAP, BID, Dosing Weight 63.273, kg, Start date: 01/28/18 9:00:00 CDT, Duration: 30 day, Stop date: 02/26/18 17:00:00 CDTNotes: (Same as: Colace) (Do Not Crush) Miralax 17 gm, 1 pkt, No Longer [place] Route: PO, Active 2018 Medical Drug form: Center PWDR, Daily, Dosing Weight 63.273, kg, Start date: 01/28/18 9:00:00 CDT, Duration: 30 day, Stop date: 02/26/18 9:00:00 CDTNotes: Dissolve in 8 oz of water or juice. (Same as: Miralax) Sodium Chloride 540 mL, Rate: Inactive [place] 0.9% IV 540 mL + Titrate as 2018 Medical riTUXimab 600 mg directed., Center Route: IV, Dosing Weight 63.273 kg, Total Volume: 600, Start date: 01/27/18 23:00:00 CDT, Duration: 1 doses or times, Stop date: 01/28/18 22:59:00 CDT, 1.69, [id number]: (Do not administer IV push or bolus). [...] mg dexamethasone 40 mg, 10 No Longer [place] tab, Route: Active 2017 [facility] PO, Drug Center form: TAB, Daily, Start date: 01/27/18 23:00:00 CDT, Duration: 4 day, Stop date: 01/30/18 23:00:00 CDTNotes: Give with food. (Same As: Decadron) Insulin Lispro 10 unit, 0.1 No Longer [facility] mL, Route: Active 2017 [facility] SUB-Q, Drug Center form: SOLN, TID-Before [...] _Date Glucagon 1 mg, Route: No Longer [place] IM, Drug Active 2017 Medical form: [place] PDR/INJ, PRN, Dosing Weight 63.273, kg, PRN Blood Glucose Results, Start date: 01/27/18 22:38:00 CDT, Duration: 30 day, Stop date: 02/26/18 22:37:00 CDT Dextrose 50% 12.5 gm, 25 No Longer [place] Syringe mL, Route: Active 2017 Medical IVP, Drug Center Form: INJ, Dosing Weight 63.273, kg, PRN, PRN Blood Glucose Results, Start date: 01/27/18 22:38:00 CDT, Duration: 30 day, Stop date: 02/26/18 22:37:00 CDT meperidine 25 mg, 1 mL, Inactive [place] Route: IVP, 2017 Medical Drug form: [place] INJ, ONCE, Start date: 01/27/18 22:30:00 CDT, Stop date: 01/27/18 22:30:00 CDTNotes: (Same as: Demerol) "Use Precaution in Elderly, Seizure disorders, and Renal impairment" Tylenol 650 mg, 2 Inactive [facility] tab, Route: 2018 [facility] PO, Drug Center form: TAB, ONCE, Start date: 01/27/18 22:30:00 CDT, Stop date: 01/27/18 22:30:00 CDTNotes: Do not exceed 4 gm/day. (Same as: Tylenol) Benadryl 50 mg, 1 mL, Inactive [facility] Route: IVP, 2017 Medical Drug form: [place] INJ, ONCE, Start date: 01/27/18 22:30:00 CDT, Stop date: 01/27/18 22:30:00 CDTNotes: (Same as: Benadryl) Elitek + Sodium 6 mg, Route: Inactive [place] Chloride 0.9% IV IVPB, ONCE, 2018 Medical 50 mL Start date: Center 01/27/18 22:30:00 CDT, Stop date: 01/27/18 22:30:00 CDTNotes: Restricted Medication: All Doses of Rasburicase should be interchanged to Rasburicase 6 mg x1 dose. A second dose may be given for patients unresponsive to 1 dose. (Same as:Elitek) MEDICATION WASTE Product Size: 1.5 mg Product Wasted: ___ mg meperidine 25 mg, 1 mL, No Longer [place] Route: IVP, 2017 Medical Drug form: [place] INJ, Q2H, PRN Allergic reaction, Start date: 01/27/18 21:35:00 CDT, Duration: 1 day, Stop date: 01/28/18 21:34:00 CDTNotes: (Same as: Demerol) "Use Precaution in Elderly, Seizure disorders, and Renal impairment" EPINEPHrine 1 0.1 mg, 1 mL, No Longer [place] mg/10ml Route: IVP, 2017 Medical (1:10,000) Drug form: [place] injectable SOLN, ONCE, solution PRN Allergic reaction, Start date: 01/27/18 21:34:00 CDTNotes: Luer lock syringe Benadryl 50 mg, 1 mL, No Longer [place] Route: IVP, 2017 Medical Drug form: [place] INJ, ONCE, PRN Allergic reaction, Start date: 01/27/18 21:29:00 CDTNotes: (Same as: Benadryl) Solu-CORTEF 100 mg, 2 mL, No Longer [place] Route: IVP2017 Medical Drug form: [place] PDR/INJ, ONCE, PRN Allergic reaction, Start date: 01/27/18 21:27:00 CDTNotes: (Same as: Solu-CORTEF) Zofran 8 mg, 4 mL, No Longer [place] Route: IVP, 2017 Medical Drug form: [place] INJ, ONCE, PRN Nausea & Vomiting, Start date: 01/27/18 21:19:00 CDTNotes: (Same as: Zofran) MEDICATION WASTE Product Size: 4 mg Product Wasted: ___ mg Lasix 40 mg, 4 mL, No Longer [place] Route: IVP, 2017 Medical Drug form: [place] INJ, BID, Dosing Weight 63.273, kg, Start date: 01/27/18 17:00:00 CDT, Duration: 30 day, Stop date: 02/26/18 9:00:00 CDTNotes: (Same as: Lasix) MEDICATION WASTE Product Size: 40 mg Product Wasted: ___ mg Fluconazole 100 mg, 1 No Longer [place] tab, Route: Active 2018 Medical PO, Drug Center form: TAB, [id number], Dosing Weight 63.273, kg, Start date: 01/27/18 16:00:00 CDT, Duration: 30 day, Stop date: 02/25/18 16:00:00 CDT, ABX Indication: Immunocomprom ised Host ProphylaxisNo shabbir: (Same as: Diflucan) Saline Flush 10 mL, Route: No Longer [place] 0.9% IVP, Drug Active 2017 Medical Form: INJ, Center Dosing Weight 63.273, kg, Q8H, Start date: 01/27/18 16:00:00 CDT, Duration: 30 day, Stop date: 02/26/18 8:00:00 CDTNotes: (Same as: BD Posiflush) Levofloxacin 250 mg, 1 No Longer [facility] tab, Route: Active 2018 Medical PO, Drug Center form: TAB, [id number], Dosing Weight 63.273, kg, Start date: 01/27/18 15:18:00 CDT, Duration: 30 day, Stop date: 02/24/18 15:18:00 CDT, ABX Indication: Immunocomprom ised Host ProphylaxisNo shabbir: Do not give w/antacids, dairy pdt & minerals Take 1 hr before or 2 hr after dairy pdt (Same as:Levaquin) Lidocaine 50 mg, 5 mL, No Longer [place] Hydrochloride 10 Route: Active 2018 Medical MG/ML Injectable INTRADERM, Center Solution Drug Form: INJ, Dosing Weight 63.273, kg, ONCALL, Start date: 01/27/18 13:00:00 CDT, Duration: 30 day, Stop date: 02/26/18 12:59:00 CDTNotes: (Same as: Xylocaine) Saline Flush 10 mL, Route: No Longer [place] 0.9% IVP, Drug Active 2018 Medical Form: INJ, Center Dosing Weight 63.273, kg, PRN, PRN Line Flush, Start date: 01/27/18 12:49:00 CDT, Duration: 30 day, Stop date: 02/26/18 12:48:00 CDTNotes: (Same as: BD Posiflush) Fluconazole 100 mg, Inactive [facility] Route: PO, 2017 Medical Drug form: [place] TAB, [id number], Dosing Weight 63.273, kg, Start date: 01/27/18 12:00:00 CDT, Duration: 30 day, Stop date: 02/25/18 12:00:00 CDT, ABX Indication: Open Wound Prophylaxis valacyclovir 500 mg, 1 No Longer [facility] tab, Route: Active 2018 Medical PO, Drug Center form: TAB, Q24H, Dosing Weight 63.273, kg, Start date: 01/27/18 12:00:00 CDT, Duration: 30 day, Stop date: 02/25/18 12:00:00 CDTNotes: (Same As: Valtrex) Lasix 40 mg, 4 mL, Inactive [facility] Route: IVP, 2017 Medical Drug form: [place] INJ, Daily, Dosing Weight 63.273, kg, Start date: 01/27/18 11:27:00 CDT, Duration: 30 day, Stop date: 02/26/18 9:00:00 CDTNotes: (Same as: Lasix) MEDICATION WASTE Product Size: 40 mg Product Wasted: ___ mg duloxetine 30 mg, 1 cap, No Longer [facility] Route: PO, Active 2017 Medical Drug form: [place] DRC, Daily, Dosing Weight 63.636, kg, Start date: 01/27/18 9:00:00 CDT, Duration: 30 day, Stop date: 02/25/18 9:00:00 CDTNotes: (Same as: Cymbalta) (Do Not Crush) clopidogrel 75 mg, 1 tab, No Longer [place] Route: PO, Active 2017 Medical Drug form: [place] TAB, Daily, Dosing Weight 63.636, kg, Start date: 01/27/18 9:00:00 CDT, Duration: 30 day, Stop date: 02/25/18 9:00:00 CDTNotes: (Same As: Plavix) Clonidine 0.1 mg, 1 No Longer [facility] Hydrochloride tab, Route: Active 2018 Medical 0.1 [...] MG 81 mg, 1 tab, No Longer [facility] Chewable Tablet Route: PO, Active 2017 Medical Drug form: Center CHEWTAB, Daily, Dosing Weight 63.636, kg, Start date: 01/27/18 9:00:00 CDT, Duration: 30 day, Stop date: 02/25/18 9:00:00 CDTNotes: Take with food. Lovenox 30 mg, Route: No Longer [place] SUB-Q, Drug Active 2018 Medical form: INJ, [place] [id number], Dosing Weight 63.636, kg, For CrCl heparin 5,000 unit, 1 No Longer [place] mL, Route: Active 2018 Medical SUB-Q, Drug Center form: INJ, Q8H, Dosing Weight 63.636, kg, Start date: 01/27/18 8:00:00 CDT, Duration: 30 day, Stop date: 02/26/18 0:00:00 CDTNotes: porcine heparin pantoprazole 40 mg, 1 tab, No Longer [place] Route: PO, Active 2018 Medical Drug form: [place] ECTAB, Before Breakfast, Dosing Weight 63.636, kg, Start date: 01/27/18 7:30:00 CDT, Duration: 30 day, Stop date: 02/25/18 7:30:00 CDTNotes: Tablet should not be chewed or crushed. (Same as: Protonix) tramadol 50 mg, 1 tab, Inactive [place] hydrochloride 50 Route: PO, 2018 Medical MG Oral Tablet Drug form: [place] TAB, ONCE, Dosing Weight 63.835, kg, Start date: 01/26/18 23:12:00 CDT, Stop date: 01/26/18 23:12:00 CDTNotes: Not to exceed 400mg/day. (Same As: Ultram) Saline Flush 10 ml, Route: No Longer [place] 0.9% IVP, Drug Active [facility] 63.636, kg, Q12H, Start date: 01/26/18 21:00:00 CDT, Duration: 30 day, Stop date: 02/25/18 9:00:00 CDTNotes: (Same as: BD Posiflush) Magnesium 1 gm, 50 mL, No Longer [place] Sulfate Route: IVPB, Active 2017 Medical Drug form: [place] INJ, PRN, Dosing Weight 63.636, kg, PRN [...] CDTNotes: (Same as: Mag-Ox 400) Magnesium oxide [id number] elemental magnesium Dose=____mg magnesium oxide (___mg elemental magnesium) Calcium 2 gm, 20 mL, No Longer [place] Gluconate Route: IVPB, Active 2018 Medical PRN, Dosing Center Weight 63.636, kg, [...] No Longer [place] mL, Route: Active 2017 [facility] IVPB, PRN, Center Dosing Weight 63.636, kg, PRN Abnormal Lab Result, For NON-ICU Patients Only., Start date: 01/26/18 20:30:00 CDT, Duration: 30 day, Stop date: 02/25/18 20:29:00 CDT Potassium 20 mEq, 1 No Longer [place] Chloride tab, Route: Active 2018 [facility] PO, Drug Center form: ERTAB, PRN, [...] Patients with feeding tube less than 14 [place] (Dobhoff, J-tube etc) and pediatric and patients. With food and full glass of water Insulin Lispro 3 unit, 0.03 No Longer [place] mL, Route: Active 2017 [facility] SUB-Q, Drug Center form: SOLN, Bedtime, Dosing [...] _Date Glucagon 1 mg, Route: No Longer [place] IM, Drug Active 2018 Medical form: Center PDR/INJ, PRN, Dosing Weight 63.636, kg, PRN Blood Glucose Results, Start date: 01/26/18 20:29:00 CDT, Duration: 30 day, Stop date: 02/25/18 20:28:00 CDT Dextrose 50% 12.5 gm, 25 No Longer [facility] Syringe mL, Route: Active 2018 Medical IVP, Drug Center Form: INJ, Dosing Weight 63.636, kg, PRN, PRN Blood Glucose Results, Start date: 01/26/18 20:29:00 CDT, Duration: 30 day, Stop date: 02/25/18 20:28:00 CDT Furosemide 20 mg, 2 mL, Inactive [facility] Route: IVP, 2018 Medical Drug form: Center INJ, ONCE, Dosing Weight 63.636, kg, Start date: 01/26/18 20:25:00 CDT, Stop date: 01/26/18 20:25:00 CDTNotes: (Same as: Lasix) Saline Flush 10 ml, Route: No Longer [facility] 0.9% IVP, Drug Active 2017 Medical Form: INJ, Center Dosing Weight 63.636, kg, PRN, PRN Line Flush, Start date: 01/26/18 20:20:00 CDT, Duration: 30 day, Stop date: 02/25/18 20:19:00 CDTNotes: (Same as: BD Posiflush) Tylenol 650 mg, 2 No Longer [facility] tab, Route: Active 2017 Medical PO, Drug Center form: TAB, Q6H, Dosing Weight 63.636, kg, PRN Pain Score 1-3, Start date: 01/26/18 19:54:00 CDT, Duration: 30 day, Stop date: 02/25/18 19:53:00 CDTNotes: Do not exceed 4 gm/day. (Same as: Tylenol) 1.5 ML Insulin 14 units, No Longer [facility] Glargine 300 SUB-Q, Active 2018 Medical UNT/ML Prefilled Bedtime, 0 Center Syringe [Toujeo] Refill(s) glimepiride 4 mg 4 mg=1 tab, Active [facility] oral tablet PO, BID, 0 2017 Medical Refill(s) [place] Metformin 500 mg, PO, Active [facility] BID, 0 2018 Medical Refill(s) Center Lorazepam 2 MG 2 mg=1 tab, No Longer [place] Oral Tablet PO, ONCE, Active 2018 Medical [Ativan] take 1 tab 10 Center minutes prior to [employer] and again during if needed, # 2 tab, 0 Refill(s) Furosemide 40 MG 40 mg=1 tab, No Longer [place] Oral Tablet PO, BID, # 60 Active 2018 Medical [Lasix] tab, 3 Center Refill(s), Pharmacy: [facility]/pharmacy #[id number] potassium 20 mEq=1 tab, No Longer [place] chloride 20 mEq PO, Q12H, # Active 2018 Medical oral tablet, 60 tab, 3 Center extended release Refill(s), Pharmacy: [facility]/pharmacy #[id number] Furosemide 40 MG 40 mg, 1 tab, Inactive [place] Oral Tablet Route: PO, 2018 Medical [Lasix] Drug form: Center TAB, BID, Dosing Weight 64.091, kg, Start date: 01/05/18 9:23:00 CDT, Duration: 30 day, Stop date: 02/04/18 9:00:00 CDTNotes: (Same as: Lasix) May cause GI upset. Give with food or milk. Ambien 5 mg, 1 tab, No Longer [place] Route: PO, Active 2018 Medical Drug form: Center TAB, Bedtime, Dosing Weight 64.091, kg, PRN Insomnia, Start date: 01/03/18 22:28:00 [employer], Duration: 30 day, Stop date: 02/02/18 22:27:00 CDTNotes: (Same As: Ambien) potassium 20 mEq, 1 No Longer [place] chloride 20 mEq tab, Route: Active 2018 Medical oral tablet, PO, Drug Center extended release form: ERTAB, Q12H, Dosing Weight 64.091, kg, Start date: 01/03/18 21:00:00 [employer], Duration: 30 day, Stop date: 02/02/18 9:00:00 CDTNotes: (Same as: K-Dur 20) "Do Not Crush" With food and full glass of water Potassium 10 mEq, 50 No Longer [place] Chloride mL, Route: Active 2018 Medical IVPB, Drug Center form: INJ, PRN, Dosing Weight 64.091, kg, PRN Abnormal Lab Result, For NON-ICU Patients Only, Start date: 01/03/18 13:47:00 [employer], Duration: 30 day, Stop date: 02/02/18 14:46:00 CDTNotes: (Same as: KCL) Infuse over 2 hours. potassium 2 pkt, Route: No Longer [place] phosphate-sodium PO, Drug Active 2018 Medical phosphate 250 Form: Center mg-280 mg-160 mg PDR/REC, oral powder for Dosing Weight reconstitution 64.091, kg, PRN, PRN Abnormal Lab Result, For NON-ICU Patients Only, Start date: 01/03/18 13:47:00 [employer], Duration: 30 day, Stop date: 02/02/18 14:46:00 CDTNotes: (Same as: Phos-NaK) Each 1.5 gm pkt has 250mg phosphorous. Mix w/2.5oz water and stir. potassium 15 mmol, 5 No Longer [place] phosphate mL, Route: Active 2017 Medical IVPB, PRN, Center Dosing Weight 64.091, kg, PRN Abnormal Lab Result, For NON-ICU Patients Only., Start date: 01/03/18 13:47:00 [employer], Duration: 30 day, Stop date: 02/02/18 14:46:00 CDTNotes: (Same as: K Phosphate.) 1 mMol phoshate has 1.47 mEq potassium Infuse over 4 hours Calcium 2 gm, 20 mL, No Longer [place] Gluconate Route: IVPB, Active 2017 Medical PRN, Dosing Center Weight 64.091, kg, PRN Abnormal Lab Result, For NON-ICU Patients Only., Start date: 01/03/18 13:47:00 [employer], Duration: 30 day, Stop date: 02/02/18 14:46:00 CDTNotes: WASTE: F/P - Sink; E - Municipal Trash Bin Magnesium Oxide 800 mg, 2 No Longer [place] tab, Route: Active 2018 Medical PO, Drug Center form: TAB, PRN, Dosing Weight 64.091, kg, PRN Abnormal Lab Result, For NON-ICU Patients Only., Start date: 01/03/18 13:47:00 [employer] [facility] [employer], Duration: 30 day, Stop date: 02/02/18 14:46:00 CDTNotes: (Same as: Mag-Ox 400) Magnesium oxide [id number] elemental magnesium Dose=____mg magnesium oxide (___mg elemental magnesium) Magnesium 1 gm, 100 mL, No Longer [place] Sulfate Route: IVPB, Active 2018 Medical Drug form: [place] INJ, PRN, Dosing Weight 64.091, kg, PRN Abnormal Lab Result, For NON-ICU Patients Only., Start date: 01/03/18 13:47:00 [employer] [facility] [employer], Duration: 30 day, Stop date: 02/02/18 14:46:00 CDTNotes: WASTE: F/P - Sink; E - Municipal Trash Bin sodium phosphate 15 mmol, 5 No Longer [place] mL, Route: Active 2018 Medical IVPB, PRN, [place] Dosing Weight 64.091, kg, PRN Abnormal Lab Result, For NON-ICU Patients Only., Start date: 01/03/18 13:47:00 [employer] [facility] [employer], Duration: 30 day, Stop date: 02/02/18 14:46:00 CDT Miralax 17 gm, 1 pkt, No Longer [place] Route: PO, Active 2018 Medical Drug form: [place] PWDR, BID, Dosing Weight 64.091, kg, Start date: 01/02/18 17:33:00 [employer] [facility] [employer], Duration: 30 day, Stop date: 02/01/18 17:00:00 CDTNotes: Dissolve in 8 oz of water or juice. (Same as: Miralax) Calcium 1,000 mg, 2 No Longer [place] Carbonate 500 MG tab, Route: Active 2018 Medical Chewable Tablet PO, Drug Center form: CHEWTAB, PRN, Dosing Weight 64.091, kg, PRN Abnormal Lab Result, FOR ICU USE ONLY, Start date: 01/01/18 22:59:00 [employer] [facility] [employer], Duration: 30 day, Stop date: 01/31/18 23:58:00 CDTNotes: (Same As: Tums) Calcium Carbonate 500 mr=578 mg elemental calcium Dose= mg calcium carbonate ( mg elemental calcium) potassium 2 pkt, Route: No Longer [place] phosphate-sodium PO, Drug Active 2018 Medical phosphate 250 Form: Center mg-280 mg-160 mg PDR/REC, oral powder for Dosing Weight reconstitution 64.091, kg, PRN, PRN Abnormal Lab Result, FOR ICU USE ONLY, Start date: 01/01/18 22:59:00 [employer] [facility] [employer], Duration: 30 day, Stop date: 01/31/18 23:58:00 CDTNotes: (Same as: Phos-NaK) Each 1.5 gm pkt has 250mg phosphorous. Mix w/2.5oz water and stir. Calcium 1 gm, 10 mL, No Longer [place] Gluconate Route: IVPB, Active 2017 Medical PRN, Dosing Center Weight 64.091, kg, PRN Abnormal Lab Result, Start date: 01/01/18 22:59:00 [employer] [facility] [employer], Duration: 30 day, Stop date: 01/31/18 23:58:00 CDT, FOR ICU USE ONLYNotes: WASTE: F/P - Sink; E - Municipal Trash Bin Magnesium 2 gm, 50 mL, No Longer [place] Sulfate Route: IVPB, Active 2018 Medical Drug form: Center INJ, PRN, Dosing Weight 64.091, kg, PRN Abnormal Lab Result, Start date: 01/01/18 22:59:00 [employer] [facility] [employer], Duration: 30 day, Stop date: 01/31/18 23:58:00 CDT, FOR ICU USE ONLYNotes: WASTE: F/P - Sink; E - Municipal Trash Bin Magnesium Oxide 800 mg, 2 No Longer [place] tab, Route: Active 2018 Medical PO, Drug Center form: TAB, PRN, Dosing Weight 64.091, kg, PRN Abnormal Lab Result, FOR ICU USE ONLY, Start date: 01/01/18 22:59:00 [facility], Duration: 30 day, Stop date: 01/31/18 23:58:00 CDTNotes: (Same as: Mag-Ox 400) Magnesium oxide [id number] elemental magnesium Dose=____mg magnesium oxide (___mg elemental magnesium) sodium phosphate 15 mmol, 5 No Longer [place] mL, Route: Active 2018 Medical IVPB, PRN, Center Dosing Weight 64.091, kg, PRN Abnormal Lab Result, Start date: 01/01/18 22:59:00 [facility], Duration: 30 day, Stop date: 01/31/18 23:58:00 CDT, FOR ICU USE ONLY potassium 30 mmol, 10 No Longer [place] phosphate mL, Route: Active 2018 Medical IVPB, PRN, Center Dosing Weight 64.091, kg, PRN Abnormal Lab Result, Start date: 01/01/18 22:59:00 [employer] [facility] [employer], Duration: 30 day, Stop date: 01/31/18 23:58:00 CDT, FOR ICU USE ONLYNotes: (Same as: K Phosphate.) 1 mMol phoshate has 1.47 mEq potassium Infuse over 4 hours Potassium 20 mEq, 100 No Longer [place] Chloride mL, Route: Active 2018 Medical IVPB, Drug Center form: INJ, PRN, Dosing Weight 64.091, kg, PRN Abnormal Lab Result, Via central line, Start date: 01/01/18 22:59:00 [employer] [facility] [employer], Duration: 30 day, Stop date: 01/31/18 23:58:00 CDT, FOR ICU USE ONLYNotes: (Same as: KCL) Infuse no faster than 10 mEq/hr if given peripherally. Insulin Glargine 11 unit, 0.11 No Longer [place] 100 UNT/ML mL, Route: Active 2018 Medical Injectable SUB-Q, Drug Center Solution form: SOLN, Bedtime, Dosing Weight 64.091, kg, Start date: 01/01/18 21:00:00 [employer] [facility] [employer], Duration: 30 day, Stop date: 01/30/18 21:00:00 CDTNotes: Same as: Lantus) Do not hold insulin without contacting prescriber WASTE: F/P - Black; E - Municipal Trash Bin heparin sodium, 5,000 unit, 1 No Longer [place] porcine 2500 mL, Route: Active 2018 Medical UNT/ML SUB-Q, Drug Center Injectable form: INJ, Solution Q12H, Dosing Weight 64.091, kg, Start date: 01/01/18 21:00:00 [employer] [facility] [employer], Duration: 30 day, Stop date: 01/31/18 9:00:00 CDTNotes: porcine heparin Lactulose 667 10 gm, 15 mL, Inactive [place] MG/ML Oral Route: PO, 2018 Medical Solution Drug form: [place] SYRP, ONCE, Dosing Weight 64.091, kg, Start date: 01/01/18 17:33:00 [employer] [facility] [employer], Stop date: 01/01/18 17:33:00 CSTNotes: (Same as:Chronulac) Docusate Sodium 1 tab, Route: No Longer [place] 50 MG / PO, Drug Active 2018 Medical sennosides, GROUP HOME Form: TAB, [place] 8.6 MG Oral Dosing Weight Tablet 64.091, kg, BID, Start date: 01/01/18 17:31:00 [employer] [facility] [employer], Duration: 30 day, Stop date: 01/31/18 17:00:00 CDTNotes: (Same as Senokot-S) Equiv. to Indira-Colace. Dextrose 50% 25 gm, 50 mL, No Longer [place] Syringe Route: IVP, Active 2018 Medical Drug Form: [place] INJ, Dosing Weight 64.091, kg, PRN, PRN Blood Glucose Results, Start date: 01/01/18 15:43:00 [employer] [facility] [employer], Duration: 30 day, Stop date: 01/31/18 16:42:00 CDT Glucagon 1 mg, Route: No Longer [place] IM, Drug Active 2018 Medical form: [place] PDR/INJ, PRN, Dosing Weight 64.091, kg, PRN Blood Glucose Results, Start date: 01/01/18 15:43:00 [employer] [facility] [employer], Duration: 30 day, Stop date: 01/31/18 16:42:00 CDT Insulin Lispro 2 unit, 0.02 No Longer [place] mL, Route: Active 2018 Medical SUB-Q, Drug Center form: SOLN, TID-Before Meals, Dosing Weight 64.091, kg, PRN Blood Glucose Results, Start date: 01/01/18 15:43:00 [employer] [facility] [employer], Duration: 30 day, Stop date: 01/31/18 15:42:00 CDTNotes: (Same as: Humalog ) Roll in palms of hands gently; Do not shake `vigorously. "Single Patient Use Only " WASTE: F/P - Black; E - Municipal Trash Bin Stable for 28 days at room temperature. Expires in days from _Date NIFEdipine 30 mg 30 mg, 1 tab, No Longer [place] oral tablet, Route: PO, Active 2018 Medical extended release Drug form: [place] ERTAB, Daily, Dosing Weight 64.091, kg, Start date: 01/01/18 9:00:00 [employer] [facility] [employer], Duration: 30 day, Stop date: 01/30/18 9:00:00 CDTNotes: (Same as: Adalat CC, Procardia XL) Give on empty stomach. Take 1 hour before or 2 hours after meal; "Avoid grapefruit and grapefruit juice". Do not crush duloxetine 30 mg, 1 cap, No Longer [place] Route: PO, Active 2017 Medical Drug form: [place] DRC, Daily, Dosing Weight 64.091, kg, Start date: 01/01/18 9:00:00 [employer] [facility] [employer], Duration: 30 day, Stop date: 01/30/18 9:00:00 CDTNotes: (Same as: Cymbalta) (Do Not Crush) clopidogrel 75 mg, 1 tab, No Longer [facility] Route: PO, Active 2018 Medical Drug form: [place] TAB, Daily, Dosing Weight 64.091, kg, Start date: 01/01/18 9:00:00 [employer] [facility] [employer], Duration: 30 day, Stop date: 01/30/18 9:00:00 CDTNotes: (Same As: Plavix) carvedilol 12.5 mg, 1 No Longer [facility] tab, Route: Active 2018 Medical PO, Drug Center form: TAB, BID, Dosing Weight 64.091, kg, Start date: 01/01/18 9:00:00 [employer] [facility] [employer], Duration: 30 day, Stop date: 01/30/18 17:00:00 CDTNotes: Give with food. (Same As: Coreg) Clonidine 0.1 mg, 1 No Longer [facility] Hydrochloride tab, Route: Active 2018 Medical 0.1 MG Oral PO, Drug Center Tablet form: TAB, BID, Dosing Weight 64.091, kg, Start date: 01/01/18 9:00:00 [employer] [facility] [employer], Duration: 30 day, Stop date: 01/30/18 17:00:00 CDTNotes: (Same As: Catapres) Aspirin 81 MG 81 mg, 1 tab, No Longer [place] Chewable Tablet Route: PO, Active 2017 Medical Drug form: [place] CHEWTAB, Daily, Dosing Weight 64.091, kg, Start date: 01/01/18 9:00:00 [employer] [facility] [employer], Duration: 30 day, Stop date: 01/30/18 9:00:00 CDTNotes: Take with food. pantoprazole 40 mg, 1 tab, No Longer [place] Route: PO, Active 2017 Medical Drug form: [place] ECTAB, Before Breakfast, Dosing Weight 64.091, kg, Start date: 01/01/18 7:30:00 [employer] [facility] [employer], Duration: 30 day, Stop date: 01/30/18 7:30:00 CDTNotes: Tablet should not be chewed or crushed. (Same as: Protonix) valacyclovir 500 mg, 1 No Longer [place] tab, Route: Active 2017 Medical PO, Drug Center form: TAB, Q24H, Dosing Weight 64.091, kg, Start date: 01/01/18 1:00:00 [employer] [facility] [employer], Duration: 30 day, Stop date: 01/29/18 22:30:00 CDTNotes: (Same As: Valtrex) Lasix 40 mg, 4 mL, No Longer [place] Route: IVP, Active 2017 Medical Drug form: [place] INJ, Q12H, Dosing Weight 64.091, kg, Start date: 01/01/18 0:55:00 [employer] [facility] [employer], Duration: 30 day, Stop date: 01/30/18 21:00:00 CDTNotes: (Same as: Lasix) MEDICATION WASTE Product Size: 40 mg Product Wasted: ___ mg Acetaminophen 650 mg, 2 No Longer [facility] 325 MG Oral tab, Route: Active 2018 Medical Tablet PO, Drug Center form: TAB, Q6H, Dosing Weight 64.091, kg, PRN Pain 1-3/Temp > 100.4 F, Start date: 01/01/18 0:54:00 [employer] [facility] [employer], Duration: 30 day, Stop date: 01/31/18 0:53:00 CDTNotes: Do not exceed 4 gm/day. (Same as: Tylenol) Aspirin 81 mg, 1 tab, Inactive [facility] Route: PO, 2018 Medical Drug form: [place] CHEWTAB, Daily, Dosing Weight 66.818, kg, Start date: 11/29/17 9:00:00 [employer] [facility] [employer], Duration: 30 day, Stop date: 12/28/17 9:00:00 CSTNotes: Take with food. Plavix 75 mg, 1 tab, Inactive [facility] Route: PO, 2018 Medical Drug form: [place] TAB, Daily, Dosing Weight 66.818, kg, Start date: 11/29/17 9:00:00 [employer] [facility] [employer], Duration: 30 day, Stop date: 12/28/17 9:00:00 CSTNotes: (Same As: Plavix) valACYclovir 500 500 mg=1 tab, No Longer [place] mg oral tablet PO, Q24H, X Active 2017 Medical 90 day, # 90 Center tab, 0 Refill(s) levofloxacin 250 250 mg=1 tab, No Longer [place] mg oral tablet PO, [id number], Active 2018 Medical X 90 day, # Center 90 tab, 0 Refill(s) valACYclovir 500 500 mg=1 tab, Inactive [place] mg oral tablet PO, Q24H, 0 2018 Medical Refill(s) Center levofloxacin 250 250 mg=1 tab, Inactive [place] mg oral tablet PO, [id number], 2018 Medical 0 Refill(s) Center Furosemide 20 MG 20 mg=1 tab, No Longer [place] Oral Tablet PO, Daily, # Active 2018 Medical [Lasix] 90 tab, 0 Center Refill(s) fluconazole 100 100 mg=1 tab, No Longer [place] mg oral tablet PO, [id number], Active 2018 Medical X 90 day, # Center 90 tab, 0 Refill(s) Acetaminophen 650 mg=2 tab, No Longer [place] 325 MG Oral PO, Q6H, PRN Active 2018 Medical Tablet Pain 1-3/Temp Center > 100.4 F, 0 Refill(s) pantoprazole 40 40 mg=1 tab, No Longer [place] mg oral enteric PO, Before Active 2018 Medical coated tablet Breakfast, 0 Center Refill(s) NIFEdipine 30 mg 30 mg=1 tab, No Longer [place] oral tablet, PO, Daily, 0 Active 2017 Medical extended release Refill(s) [place] Insulin Glargine 14 unit, No Longer [place] 100 UNT/ML SUB-Q, Active 2017 Medical Injectable Bedtime, 0 [place] Solution Refill(s) DULoxetine 30 mg 30 mg=1 cap, No Longer [place] oral delayed PO, Daily, 0 Active 2017 Medical release capsule Refill(s) [place] clopidogrel 75 75 mg=1 tab, No Longer [facility] mg oral tablet PO, Daily, 0 Active 2017 Medical Refill(s) Center Clonidine 0.1 mg=1 tab, No Longer [facility] Hydrochloride PO, BID, 0 Active 2017 Medical 0.1 MG Oral Refill(s) [place] Tablet carvedilol 12.5 6.25 mg=0.5 No Longer [place] mg oral tablet tab, PO, BID, Active 2017 [facility] 0 Refill(s) [place] Aspirin 81 MG 81 mg=1 tab, No Longer [facility] Chewable Tablet PO, Daily, 0 Active 2017 Medical Refill(s) [place] Midazolam Route: IV, Inactive [place] ONCE, Dosing 2018 Medical Weight [place] 66.818, kg, Start date: 11/28/17 8:30:00 [employer] [employer], Stop date: 11/28/17 8:30:00 [employer] [facility] [employer] Fentanyl 25 microgram, Inactive [facility] Route: IV, 2018 Medical ONCE, Dosing Center Weight 66.818, kg, Start date: 11/28/17 8:30:00 [employer] [facility] [employer], Stop date: 11/28/17 8:30:00 [employer] [facility] [employer] Midazolam 1 mg, Route: Inactive [facility] IVP, Drug 2018 Medical form: INJ, Center ONCE, Dosing Weight 66.818, kg, Start date: 11/28/17 8:10:00 [employer] [facility] [employer], Stop date: 11/28/17 8:10:00 [employer] [facility] [employer] Fentanyl 50 microgram, Inactive [facility] Route: IVP, 2018 Medical Drug form: Center INJ, ONCE, Dosing Weight 66.818, kg, Start date: 11/28/17 8:10:00 [employer] [facility] [employer], Stop date: 11/28/17 8:10:00 [employer] [facility] [employer] potassium 2 pkt, Route: No Longer [place] phosphate-sodium PO, Drug Active 2018 Medical phosphate 250 Form: Center mg-280 mg-160 mg PDR/REC, oral powder for Dosing Weight reconstitution 66.818, kg, PRN, PRN Abnormal Lab Result, For NON-ICU Patients Only, Start date: 11/28/17 5:41:00 [employer] [facility] [employer], Duration: 30 day, Stop date: 12/28/17 5:40:00 CSTNotes: (Same as: Phos-NaK) Each 1.5 gm pkt has 250mg phosphorous. Mix w/2.5oz water and stir. Potassium 20 mEq, 15 No Longer [place] Chloride mL, Route: Active 2018 [facility] [place], Drug Center form: LIQ, PRN, Dosing Weight 66.818, kg, PRN Abnormal Lab Result, For NON-ICU Patients Only, Start date: 11/28/17 5:41:00 [employer] [facility] [employer], Duration: 30 day, Stop date: 12/28/17 5:40:00 CSTNotes: (Same as: Potassium Chloride) sodium phosphate 15 mmol, 5 No Longer [place] mL, Route: Active 2018 Medical IVPB, PRN, Center Dosing Weight 66.818, kg, PRN Abnormal Lab Result, For NON-ICU Patients Only., Start date: 11/28/17 5:41:00 [employer] [facility] [employer], Duration: 30 day, Stop date: 12/28/17 5:40:00 [employer] [facility] [employer] potassium 15 mmol, 5 No Longer [place] phosphate mL, Route: Active 2018 Medical IVPB, PRN, Center Dosing Weight 66.818, kg, PRN Abnormal Lab Result, For NON-ICU Patients Only., Start date: 11/28/17 5:41:00 [employer] [facility] [employer], Duration: 30 day, Stop date: 12/28/17 5:40:00 CSTNotes: (Same as: K Phosphate.) 1 mMol phoshate has 1.47 mEq potassium Infuse over 4 hours Magnesium 1 gm, 100 mL, No Longer [place] Sulfate Route: IVPB, Active 2018 Medical Drug form: Center INJ, PRN, Dosing Weight 66.818, kg, PRN Abnormal Lab Result, For NON-ICU Patients Only., Start date: 11/28/17 5:41:00 [employer] [facility] [employer], Duration: 30 day, Stop date: 12/28/17 5:40:00 CSTNotes: WASTE: F/P - Sink; E - Municipal Trash Bin Calcium 3 gm, 30 mL, No Longer [place] Gluconate Route: IVPB, Active 2018 Medical PRN, Dosing Center Weight 66.818, kg, PRN Abnormal Lab Result, For NON-ICU Patients Only., Start date: 11/28/17 5:41:00 [employer] [facility] [employer], Duration: 30 day, Stop date: 12/28/17 5:40:00 CSTNotes: WASTE: F/P - Sink; E - Municipal Trash Bin Magnesium Oxide 800 mg, 2 No Longer [place] tab, Route: Active 2017 Medical PO, Drug Center form: TAB, PRN, Dosing Weight 66.818, kg, PRN Abnormal Lab Result, For NON-ICU Patients Only., Start date: 11/28/17 5:41:00 [employer] [facility] [employer], Duration: 30 day, Stop date: 12/28/17 5:40:00 CSTNotes: (Same as: Mag-Ox 400) Magnesium oxide [id number] elemental magnesium Dose=____mg magnesium oxide (___mg elemental magnesium) Rasburicase 6 mg, Route: Inactive [place] IV, ONCE, 2018 Medical Dosing Weight Center 66.818, kg, Start date: 11/27/17 9:41:00 [employer] [facility] [employer], Stop date: 11/27/17 9:41:00 CSTNotes: Restricted Medication: All Doses of Rasburicase should be interchanged to Rasburicase 6 mg x1 dose. A second dose may be given for patients unresponsive to 1 dose. (Same as:Elitek) MEDICATION WASTE Product Size: 1.5 mg Product Wasted: __0_ mg capsaicin 1 appl, No Longer [place] topical 0.025% Route: TOP, Active 2017 Medical cream QID, Drug Center form: CRM, Start date: 11/26/17 9:00:00 [employer] [facility] [employer], Duration: 30 day, Stop date: 12/25/17 21:00:00 CSTNotes: (Same As: Zostrix) Furosemide 40 MG 40 mg, 1 tab, No Longer [place] Oral Tablet Route: PO, Active 2018 Medical [Lasix] Drug form: Center TAB, Daily, Dosing Weight 69.909, kg, Start date: 11/26/17 9:00:00 [employer] [facility] [employer], Duration: 30 day, Stop date: 12/25/17 9:00:00 CSTNotes: (Same as: Lasix) May cause GI upset. Give with food or milk. heparin additive 500 mL, Rate: No Longer [place] 25,000 unit [14 16.29 ml/hr, Active 2018 Medical unit/kg/hr] + Infuse over: [place] Premix Diluent 30.7 hr, Sodium Chloride Route: IV, 0.45% 500 mL Dosing Weight 58.17 kg, Total Volume: 500 mL, Start date: 11/26/17 7:16:00 [employer] [facility] [employer], Duration: 30 day, Stop date: 12/26/17 7:15:00 [employer] [facility] [employer], 1.62, w1Whebp: Total Concentration =50 unit/ ml Total elplwz=625 ml Send Med Request 2 hours prior to next bag Diclofenac 2 gm, Route: No Longer [place] Sodium 0.01 TOP, Drug Active 2018 Medical MG/MG Topical form: GEL, [place] Gel [Voltaren] QID, Dosing Weight 66.818, kg, Start date: 11/25/17 21:00:00 [employer] [facility] [employer], Duration: 30 day, Stop date: 12/25/17 17:00:00 [employer] [facility] Dulcolax 10 mg, 1 No Longer [place] Laxative supp, Route: Active 2018 Medical [place], Drug Center form: SUPP, Daily, Dosing Weight 66.818, kg, PRN Constipation, Start date: 11/25/17 10:46:00 [employer] [facility] [employer], Duration: 30 day, Stop date: 12/25/17 10:45:00 CSTNotes: (Same As: Dulcolax, [place]-Lax) Docusate Sodium 100 mg, 1 No Longer [place] 100 MG Oral cap, Route: Active 2018 Medical Capsule PO, Drug Center form: CAP, BID, Dosing Weight 69.909, kg, Start date: 11/24/17 17:00:00 [employer] [facility] [employer], Duration: 30 day, Stop date: 12/24/17 9:00:00 CSTNotes: (Same as: Colace) (Do Not Crush) Lorazepam 1 mg, 0.5 mL, Inactive [place] Route: IVP, 2017 Medical Drug form: [place] INJ, ONCE, Dosing Weight 69.909, kg, PRN Anxiety, Start date: 11/24/17 11:46:00 CSTNotes: (Same as: Ativan) Alprazolam 0.25 0.25 mg, 1 Inactive [place] MG Oral Tablet tab, Route: 2018 Medical PO, Drug Center form: TAB, ONCE, Dosing Weight 69.909, kg, Start date: 11/24/17 11:46:00 [employer] [facility] [employer], Stop date: 11/24/17 11:46:00 CSTNotes: With food or milk (Same as: Xanax) Insulin Lispro 3 unit, 0.03 No Longer [place] mL, Route: Active 2017 Medical SUB-Q, Drug Center form: SOLN, TID-Before Meals, Dosing Weight 69.909, kg, Start date: 11/24/17 11:30:00 [employer] [facility] [employer], Duration: 30 day, Stop date: 12/24/17 7:30:00 CSTNotes: (Same as: Humalog ) Roll in palms of hands gently; Do not shake `vigorously. "Single Patient Use Only " WASTE: F/P - Black; E - Municipal Trash Bin Stable for 28 days at room temperature. Expires in days from _Date Miralax 17 gm, 1 pkt, No Longer [place] Route: PO, Active 2017 Medical Drug form: [place] PWDR, Daily, Dosing Weight 69.909, kg, Start date: 11/24/17 10:42:00 [employer] [facility] [employer], Duration: 30 day, Stop date: 12/24/17 9:00:00 CSTNotes: Dissolve in 8 oz of water or juice. (Same as: Miralax) Acetaminophen 1 tab, Route: No Longer [place] 300 MG / Codeine PO, Drug Active 2017 Medical Phosphate 30 MG Form: TAB, Center Oral Tablet Dosing Weight [Tylenol with 69.909, kg, Codeine #3] Q8H, PRN Pain Score 1-3, Start date: 11/24/17 1:10:00 [employer] [facility] [employer], Duration: 30 day, Stop date: 12/24/17 1:09:00 CSTNotes: Do not exceed 4gm/day of acetaminophen . (Same as: Tylenol with Codeine # 3) Melatonin 3 MG 3 mg, 1 tab, No Longer [place] Extended Release Route: PO, Active 2017 Medical Tablet Drug Form: [place] TAB, Dosing Weight 69.909, kg, Bedtime, PRN as needed for insomnia, Start date: 11/23/17 20:51:00 [employer] [facility] [employer], Duration: 30 day, Stop date: 12/23/17 20:50:00 CSTNotes: (Same as: Melatonin) Furosemide 40 MG 40 mg, 1 tab, No Longer [place] Oral Tablet Route: PO, Active 2017 Medical [Lasix] Drug form: [place] TAB, BID, Dosing Weight 69.909, kg, Start date: 11/23/17 9:00:00 [employer] [facility] [employer], Duration: 30 day, Stop date: 12/22/17 17:00:00 CSTNotes: (Same as: Lasix) May cause GI upset. Give with food or milk. Simethicone 80 mg, 1 tab, No Longer [facility] Route: CHEW, Active 2017 Medical Drug form: [place] CHEWTAB, TID, Dosing Weight 69.909, kg, PRN Gas, Start date: 11/22/17 16:31:00 [employer] [facility] [employer], Duration: 30 day, Stop date: 12/22/17 16:30:00 CSTNotes: (Same as: Mylicon) Lasix 20 mg, 2 mL, Inactive [facility] Route: IV, 2017 Medical Drug form: [place] INJ, ONCE, Dosing Weight 69.909, kg, Start date: 11/22/17 1:33:00 [employer] [facility] [employer], Stop date: 11/22/17 1:33:00 CSTNotes: (Same as: Lasix) Lasix 40 mg, 4 mL, Inactive [facility] Route: IVP, 2017 Medical Drug form: [place] INJ, Q8H, Dosing Weight 69.909, kg, Start date: 11/21/17 20:00:00 [employer] [facility] [employer], Duration: 30 day, Stop date: 12/21/17 12:00:00 CSTNotes: (Same as: Lasix) MEDICATION WASTE Product Size: 40 mg Product Wasted: ___ mg Levaquin 250 mg, 1 No Longer [place] tab, Route: Active 2018 Medical PO, Drug Center form: TAB, [id number], Dosing Weight 69.909, kg, Start date: 11/21/17 16:00:00 [employer] [facility] [employer], Duration: 10 day, Stop date: 11/30/17 16:00:00 [employer] [facility] [employer], ABX Indication: Other (specify in Comments) Furosemide 40 mg, 4 mL, Inactive [facility] Route: IVP, 2017 Medical Drug form: [place] INJ, ONCE, Dosing Weight 69.909, kg, Start date: 11/21/17 9:27:00 [employer] [facility] [employer], Stop date: 11/21/17 9:27:00 CSTNotes: (Same as: Lasix) MEDICATION WASTE Product Size: 40 mg Product Wasted: ___ mg Aspirin 81 MG 81 mg, 1 tab, No Longer [facility] Enteric Coated Route: PO, Active 2017 Medical Tablet Drug form: [place] ECTAB, Daily, Dosing Weight 69.909, kg, Start date: 11/21/17 9:00:00 [employer] [facility] [employer], Duration: 30 day, Stop date: 12/20/17 9:00:00 CSTNotes: Do not crush or chew. (Same As: Ecotrin) NIFEdipine 30 mg 30 mg, 1 tab, No Longer [facility] oral tablet, Route: PO, Active 2017 Medical extended release Drug form: [place] ERTAB, Daily, Dosing Weight 69.909, kg, Start date: 11/21/17 9:00:00 [employer] [facility] [employer], Duration: 30 day, Stop date: 12/20/17 12:00:00 CSTNotes: (Same as: Adalat CC, Procardia XL) Give on empty stomach. Take 1 hour before or 2 hours after meal; "Avoid grapefruit and grapefruit juice". Do not crush Lisinopril 40 mg, 2 tab, No Longer [facility] Route: PO, Active 2017 Medical Drug form: [place] TAB, Daily, Dosing Weight 69.909, kg, Start date: 11/21/17 9:00:00 [employer] [facility] [employer], Duration: 30 day, Stop date: 12/20/17 9:00:00 CSTNotes: (Same as: Prinivil, Zestril) duloxetine 30 mg, 1 cap, No Longer [place] Route: PO, Active 2017 Medical Drug form: [place] DRC, Daily, Dosing Weight 69.909, kg, Start date: 11/21/17 9:00:00 [employer] [facility] [employer], Duration: 30 day, Stop date: 12/20/17 9:00:00 CSTNotes: (Same as: Cymbalta) (Do Not Crush) clopidogrel 75 mg, 1 tab, No Longer [place] Route: PO, Active 2017 Medical Drug form: [place] TAB, Daily, Dosing Weight 69.909, kg, Start date: 11/21/17 9:00:00 [employer] [facility] [employer], Duration: 30 day, Stop date: 12/20/17 9:00:00 CSTNotes: (Same As: Plavix) pantoprazole 40 mg, 1 tab, No Longer [place] Route: PO, Active 2017 Medical Drug form: [place] ECTAB, Before Breakfast, Dosing Weight 69.909, kg, Start date: 11/21/17 7:30:00 [employer] [facility] [employer], Duration: 30 day, Stop date: 12/20/17 7:30:00 CSTNotes: Tablet should not be chewed or crushed. (Same as: Protonix) Magnesium 2 gm, 50 mL, Inactive [place] Sulfate Route: IVPB, 2017 Medical Drug form: [place] INJ, Q2H, Dosing Weight 69.909, kg, Total dose=4 gm, Start date: 11/21/17 2:00:00 [employer] [facility] [employer], Duration: 2 doses or times, Stop date: 11/21/17 4:00:00 CSTNotes: WASTE: F/P - Sink; E - Municipal Trash Bin heparin sodium, 5,000 unit, 1 No Longer [place] porcine 2500 mL, Route: Active 2018 Medical UNT/ML SUB-Q, Drug Center Injectable form: INJ, Solution Q8H-06, Dosing Weight 69.909, kg, Start date: 11/20/17 22:00:00 [employer], Duration: 30 day, Stop date: 12/20/17 14:00:00 CSTNotes: porcine heparin 1.5 ML Insulin 14 unit, Inactive [place] Glargine 300 Route: SUB-Q, 2018 Medical UNT/ML Prefilled Drug form: Center Syringe [Toujeo] SOLN, Bedtime, Dosing Weight 69.909, kg, Start date: 11/20/17 21:00:00 [employer] [employer], Duration: 30 day, Stop date: 12/19/17 21:00:00 [employer] [employer] insulin glargine 11 unit, 0.11 No Longer [place] mL, Route: Active 2017 Medical SUB-Q, Drug Center form: SOLN, Bedtime, Start date: 11/20/17 21:00:00 [employer] [facility] [employer], Duration: 30 day, Stop date: 12/19/17 21:00:00 CSTNotes: (Same as: Lantus) Do not hold insulin without contacting prescriber WASTE: F/P - Black; E - Municipal Trash Bin "single patient use only" Diuril 250 mg, No Longer [place] Route: IV, Active 2017 [facility] Q8Hnow, Center Dosing Weight 69.909, kg, Start date: 11/20/17 18:00:00 [employer] [facility] [employer], Duration: 2 doses or times, Stop date: 11/21/17 6:30:00 CSTNotes: (Same As: Diuril Sodium) carvedilol 12.5 mg, 1 No Longer [place] tab, Route: Active 2018 Medical PO, Drug Center form: TAB, BID, Dosing Weight 69.909, kg, Start date: 11/20/17 17:00:00 [employer] [employer], Duration: 30 day, Stop date: 12/20/17 9:00:00 CSTNotes: Give with food. (Same As: Coreg) Valtrex 500 mg, 1 No Longer [place] tab, Route: Active 2018 Medical PO, Drug Center form: TAB, Q24H, Start date: 11/20/17 16:00:00 [employer] [facility] [employer], Duration: 30 day, Stop date: 12/19/17 16:00:00 CSTNotes: (Same As: Valtrex) famciclovir 500 500 mg, 1 Inactive [place] MG Oral Tablet tab, Route: 2018 Medical [Famvir] PO, Drug Center form: TAB, Q8H, Dosing Weight 69.909, kg, Start date: 11/20/17 16:00:00 [employer] [facility] [employer], Duration: 30 day, Stop date: 12/20/17 8:00:00 [employer] [facility] [employer] Levaquin 500 mg, 100 Inactive [facility] mL, Route: 2018 Medical IVPB, Drug Center form: SOLN, ONCE, Dosing Weight 69.909, kg, Start date: 11/20/17 14:43:00 [employer] [facility] [employer], Stop date: 11/20/17 14:43:00 [employer] [facility] [employer], ABX Indication: Other (specify in Comments)Note s: (Same as:Levaquin) Levaquin 500 mg, Inactive [place] Route: IVPB, 2018 Medical Drug form: Center SOLN, [id number], Dosing Weight 69.909, kg, Start date: 11/20/17 14:00:00 [employer] [employer], Duration: 10 day, Stop date: 11/29/17 14:00:00 [employer], ABX Indication: Other (specify in Comments) Diflucan 100 mg, 1 No Longer [place] tab, Route: Active 2018 Medical PO, Drug Center form: TAB, [id number], Dosing Weight 69.909, kg, Start date: 11/20/17 14:00:00 [employer] [facility] [employer], Duration: 30 day, Stop date: 12/19/17 14:00:00 CSTNotes: (Same as: Diflucan) Furosemide 100 mg, 10 No Longer [place] mL, Rate: 10 Active 2018 Medical mg/hour, Center Dosing Weight 69.909, kg, Route: IV, Total Volume: 100, Start Date: 11/20/17 13:33:00 [employer] [facility] [employer], Duration: 30 day, Stop date: 12/20/17 13:32:00 [employer] [facility] [employer], Replace Every: 24 hr, continuousNot es: (Same as: Lasix) MEDICATION WASTE Product Size: 100 mg Product Wasted: ___ mg Clonidine 0.1 mg, 1 No Longer [place] Hydrochloride tab, Route: Active 2018 Medical 0.1 MG Oral PO, Drug Center Tablet form: TAB, BID, Dosing Weight 69.909, kg, Priority: NOW, Start date: 11/20/17 12:57:00 [employer] [facility] [employer], Duration: 30 day, Stop date: 12/20/17 9:00:00 CSTNotes: (Same As: Catapres) Insulin Lispro 3 unit, 0.03 No Longer [place] mL, Route: Active 2018 Medical SUB-Q, Drug Center form: SOLN, TID-Before Meals, Dosing Weight 69.909, kg, PRN Blood Glucose Results, Start date: 11/20/17 12:55:00 [employer] [employer], Duration: 30 day, Stop date: 12/20/17 12:54:00 CSTNotes: (Same as: Humalog ) Roll in palms of hands gently; Do not shake `vigorously. "Single Patient Use Only " WASTE: F/P - Black; E - Municipal Trash Bin Stable for 28 days at room temperature. Expires in days from _Date Glucagon 1 mg, Route: No Longer [place] IM, Drug Active 2017 Medical form: Center PDR/INJ, PRN, Dosing Weight 69.909, kg, PRN Blood Glucose Results, Start date: 11/20/17 12:55:00 [employer] [facility] [employer], Duration: 30 day, Stop date: 12/20/17 12:54:00 [employer] [facility] [employer] Dextrose 50% 12.5 gm, 25 No Longer [place] Syringe mL, Route: Active 2017 Medical IVP, Drug Center Form: INJ, Dosing Weight 69.909, kg, PRN, PRN Blood Glucose Results, Start date: 11/20/17 12:55:00 [employer] [facility] [employer], Duration: 30 day, Stop date: 12/20/17 12:54:00 [employer] [facility] [employer] Tylenol 650 mg, 2 No Longer [place] tab, Route: Active 2018 Medical PO, Drug Center form: TAB, Q6H, Dosing Weight 69.909, kg, PRN Pain 1-3/Temp > 100.4 F, Start date: 11/20/17 12:54:00 [employer] [facility] [employer], Duration: 30 day, Stop date: 12/20/17 12:53:00 CSTNotes: Do not exceed 4 gm/day. (Same as: Tylenol) Saline Flush 10 ml, Route: No Longer [place] 0.9% IVP, Drug Active 2018 Medical Form: INJ, Center Dosing Weight 69.716, kg, Q12H, Start date: 11/20/17 9:00:00 [employer] [employer], Duration: 30 day, Stop date: 12/19/17 21:00:00 CSTNotes: Same as: BD Posiflush Sterile Lasix 20 mg, 2 mL, Inactive [facility] Route: IVP, 2017 Medical Drug form: Center INJ, Q8H, Dosing Weight 69.716, kg, Start date: 11/20/17 8:00:00 [employer] [employer], Duration: 30 day, Stop date: 12/20/17 0:00:00 CSTNotes: (Same as: Lasix) Tylenol 650 mg, 20.3 Inactive [facility] mL, Route: 2018 Medical PO, Drug Center form: LIQ, ONCE, Dosing Weight 69.909, kg, Start date: 11/20/17 5:20:00 [employer] [employer], Stop date: 11/20/17 5:20:00 CSTNotes: Max acetaminophen =4000mg/day (4 gm/day). (Same as: Tylenol) Sodium Chloride 250 mL, 250 Inactive [facility] 0.9% (Bolus) IV ml/hr, Infuse 2018 Medical Over: 1 hr, [place] Route: IV, 250, Drug form: INJ, ONCE, Priority: STAT, Dosing Weight 69.909 kg, Start date: 11/20/17 1:33:00 [employer] [employer], Stop date: 11/20/17 1:33:00 [employer] [facility] [employer] Rasburicase 6 mg, Route: Inactive [facility] IV, ONCE, 2018 Medical Dosing Weight Center 69.909, kg, Start date: 11/20/17 1:31:00 [employer] [facility] [employer], Stop date: 11/20/17 1:31:00 CSTNotes: Restricted Medication: All Doses of Rasburicase should be interchanged to Rasburicase 6 mg x1 dose. A second dose may be given for patients unresponsive to 1 dose. (Same as:Elitek) MEDICATION WASTE Product Size: 1.5 mg Product Wasted: ___ mg Lasix 20 mg, 2 mL, Inactive [facility] Route: IVP, 2017 Medical Drug form: Center INJ, Q8H, Dosing Weight 69.716, kg, Start date: 11/20/17 0:00:00 [employer] [facility] [employer], Duration: 30 day, Stop date: 12/19/17 16:00:00 CSTNotes: (Same as: Lasix) Saline Flush 10 ml, Route: No Longer [place] 0.9% IVP, Drug Active 2018 Medical Form: INJ, Center Dosing Weight 69.716, kg, PRN, PRN Line Flush, Start date: 11/19/17 22:17:00 [employer] [facility] [employer], Duration: 30 day, Stop date: 12/19/17 22:16:00 CSTNotes: Same as: BD Posiflush Sterile cefepime 1 gm, Route: Inactive [place] IVP, ONCE, 2018 Medical Dosing Weight Center 69.716, kg, Priority: STAT, Start date: 11/19/17 19:46:00 [employer] [facility] [employer], Stop date: 11/19/17 19:46:00 [employer] [facility] [employer], ABX Indication: PneumoniaNote s: (Same As: Maxipime) MEDICATION WASTE Product Size: 1000 mg Product Wasted: ___ mg Vancomycin 1,500 mg, Inactive [place] Route: IVPB, 2018 Medical ONCE, Dosing Center Weight 69.716, kg, Priority: STAT, Start date: 11/19/17 19:45:00 [employer] [facility] [employer], Stop date: 11/19/17 19:45:00 [employer] [facility] [employer], ABX Indication: PneumoniaNote s: TIME CRITICAL MEDICATION (Same As: Vancocin) Infusion rate 2001 mg: infuse over 2.5 hours For adult patients only: Round to nearest 250 mg per Medical Staff approval MEDICATION WASTE Product Size: 1000 mg Product Wasted: ___ mg Sodium Chloride 250 mL, Rate: No Longer [place] 0.9% (titrate) To prime line Active 2018 Medical 250 mL and flush Center remaining blood products., Dosing Weight 69.716, kg, Route: IV, Total Volume: 250, Priority: Routine, Start Date: 11/19/17 18:49:00 [employer] [facility] [employer], Duration: 30 day, Stop date: 12/19/17 18:48:00 [employer] [facility] [employer], Replace Every: 24 hrNotes: do not load in pyxis pantoprazole 40 40 mg=1 tab, Active [facility] mg oral enteric PO, Before 2018 Medical coated tablet Breakfast, # Center 30 tab, 3 Refill(s) NIFEdipine 30 mg 30 mg=1 tab, Active [place] oral tablet, PO, Daily, # 2018 Medical extended release 60 tab, 3 Center Refill(s) lisinopril 20 mg 40 mg=2 tab, Active [facility] oral tablet PO, Daily, # 2018 Medical 60 tab, 3 Center Refill(s) DULoxetine 30 mg 30 mg=1 cap, Active [facility] oral delayed PO, Daily, # 2018 Medical release capsule 30 cap, 3 Center Refill(s) clopidogrel 75 75 mg=1 tab, Active [facility] mg oral tablet PO, Daily, # 2018 Medical 30 tab, 3 Center Refill(s) Clonidine 0.1 mg, PO, Active [facility] Hydrochloride BID, # 60 2018 Medical 0.1 MG Oral tab, 3 Center Tablet Refill(s) carvedilol 12.5 12.5 mg=1 Active [facility] mg oral tablet tab, PO, BID, 2018 Medical # 60 tab, 3 Center Refill(s) aspirin 81 mg 81 mg=1 tab, Active [facility] tablet, enteric PO, Daily, # 2018 Medical coated 30 tab, 3 Center Refill(s) Lasix 40 mg, 4 mL, Inactive [place] Route: IVP, 2017 Medical Drug form: [place] INJ, ONCE, Dosing Weight 72.455, kg, Start date: 11/01/17 7:11:00 [employer] [facility] [employer], Stop date: 11/01/17 7:11:00 CSTNotes: (Same as: Lasix) MEDICATION WASTE Product Size: 40 mg Product Wasted: ___ mg Sodium Chloride 250 mL, Rate: No Longer [place] 0.9% (titrate) will call clerk for Active 2017 Medical 250 mL use with [place] blood product administratio n, Dosing Weight 72.455, kg, Route: IV, Total Volume: 250, Start Date: 11/01/17 7:10:00 [employer] [facility] [employer], Duration: 30 day, Stop date: 12/01/17 7:09:00 [employer] [facility] [employer], Replace Every: 24 hr Coreg 12.5 mg, 1 No Longer [place] tab, Route: Active 2018 Medical PO, Drug Center form: TAB, ONCE, Dosing Weight 72.455, kg, Priority: NOW, Start date: 10/31/17 23:45:00 [employer] [facility] [employer], Stop date: 10/31/17 23:45:00 CSTNotes: Give with food. (Same As: Coreg) Clonidine 0.1 mg, 1 No Longer [place] Hydrochloride tab, Route: Active 2017 Medical 0.1 MG Oral PO, Drug Center Tablet form: TAB, ONCE, Dosing Weight 72.455, kg, Priority: NOW, Start date: 10/31/17 23:42:00 [employer] [facility] [employer], Stop date: 10/31/17 23:42:00 CSTNotes: (Same As: Catapres) tramadol 50 mg, 1 tab, No Longer [place] hydrochloride 50 Route: PO, Active 2017 Medical MG Oral Tablet Drug form: Center TAB, Q4H, Dosing Weight 72.455, kg, PRN Pain Score 1-3, Start date: 10/31/17 22:00:00 [employer] [employer], Duration: 30 day, Stop date: 11/30/17 21:59:00 CSTNotes: Not to exceed 400mg/day. (Same As: Ultram) chlorhexidine 15 mL, Route: No Longer [place] gluconate 1.2 Swab Mouth, Active 2017 Medical MG/ML Mouthwash Q12H, Drug Center form: LIQ, Start date: 10/31/17 21:00:00 [employer] [employer], Duration: 30 day, Stop date: 11/30/17 9:00:00 CSTNotes: (Same As: Peridex) Dextrose 50% 12.5 gm, 25 No Longer [place] Syringe mL, Route: Active 2018 Medical IVP, Drug Center Form: INJ, Dosing Weight 72.455, kg, PRN, PRN Blood Glucose Results, Start date: 10/31/17 19:34:00 [employer] [facility] [employer], Duration: 30 day, Stop date: 11/30/17 19:33:00 [employer] [facility] [employer] Insulin regular 99 mL, Rate: No Longer [place] 100 unit + Start Insulin Active 2018 Medical Drip Per ICU Center Protocol, Dosing Weight 72.455, kg, Route: IVPB, Total Volume: 100, Start Date: 10/31/17 19:34:00 [employer] [facility] [employer], Duration: 30 day, Stop date: 11/30/17 19:33:00 [employer] [facility] [employer], Replace Every: 24 hrNotes: Final Concentration 1unit/1ml WASTE: F/P - Black; E - Municipal Trash Bin Fentanyl 25 microgram, Inactive [place] 0.5 mL, 2018 Medical Route: IVP, Center Drug form: INJ, ONCE, Dosing Weight 72.455, kg, Start date: 10/31/17 18:55:00 [employer] [facility] [employer], Stop date: 10/31/17 18:55:00 CSTNotes: (Same as: Sublimaze) Preservative free. ocular lubricant 1 appl, No Longer [place] Route: BOTH Active 2017 Medical EYES, Q6H, [place] Drug form: OINT, Start date: 10/31/17 18:00:00 [employer] [employer], Duration: 30 day, Stop date: 11/30/17 12:00:00 CSTNotes: (Same as: Lacri-Lube, Duratears Naturale, Artificial Tears, and Tears Again ) chlorhexidine 15 mL, Route: No Longer [place] gluconate 1.2 Swab Mouth, Active 2017 Medical MG/ML Mouthwash PRN, Drug Center form: LIQ, PRN Other -See Comment, Start date: 10/31/17 17:28:00 [employer] [employer], Duration: 30 day, Stop date: 11/30/17 17:27:00 CSTNotes: (Same As: Peridex) rocuronium Route: IV, Inactive [place] (ANES) Drug form: 2018 Medical INJ, ONCE, Center Stop date: 10/31/17 16:57:00 [employer] [facility] [employer] Sodium Chloride 750 mL, Rate: No Longer [place] 0.9% IV 750 mL 75 ml/hr, Active 2017 Medical Infuse over: Center 10 hr, Route: IV, Dosing Weight 72.455 kg, Total Volume: 750, Start date: 10/31/17 16:56:00 [employer] [employer], Duration: 10 hr, Stop date: 11/01/17 2:55:00 [employer] [employer], 1.81, m2 protamine (ANES) Route: IV, Inactive [place] Drug form: 2018 Medical INJ, ONCE, Center Stop date: 10/31/17 16:42:00 [employer] [employer] propofol (ANES) Route: IV, Inactive [facility] Drug form: 2018 Medical INJ, ONCE, Center Stop date: 10/31/17 16:22:00 [employer] [facility] [employer] norepinephrine Route: IV, Inactive [place] (ANES) Drug form: 2018 Medical INJ, ONCE, Center Stop date: 10/31/17 16:22:00 [employer] [facility] [employer] ondansetron Route: IV, Inactive [place] ([facility]) Drug form: 2018 Medical INJ, ONCE, Center Stop date: 10/31/17 16:08:00 [employer] [facility] [employer] fentaNYL (ANES) Route: IV, Inactive [facility] Drug form: 2018 Medical INJ, ONCE, Center Stop date: 10/31/17 15:37:00 [employer] [facility] OFF[employer] heparin ([facility]) Route: IV, Inactive [facility] Drug form: 2018 Medical INJ, ONCE, Center Stop date: 10/31/17 15:37:00 [employer] [facility] [employer] Ondansetron 4 mg, 2 mL, No Longer [facility] Route: IVP, Active 2017 Medical Drug form: Center INJ, ONCE, Dosing Weight 72.455, kg, PRN Nausea & Vomiting, Start date: 10/31/17 15:27:00 CSTNotes: (Same as: Zofran) MEDICATION WASTE Product Size: 4 mg Product Wasted: ___ mg Fentanyl 25 microgram, No Longer [place] 0.5 mL, Active [facility]: [facility], Q5Min, Dosing Weight 72.455, kg, PRN Pain Score 4-6, Priority: Routine, Start date: 10/31/17 15:27:00 [employer] [facility] [employer], Duration: 4 doses or times, Stop date: 11/01/17 0:00:00 CSTNotes: (Same as: Sublimaze) Preservative free. Naloxone 0.4 mg, 1 mL, No Longer [place] Route: IVP, Active 2017 Medical Drug form: Center INJ, Q2MIN, Dosing Weight 72.455, kg, PRN Narcotic Reversal, Start date: 10/31/17 15:27:00 [employer] [facility] [employer], Duration: 8 doses or times, Stop date: 11/01/17 0:00:00 CSTNotes: Same as Narcan Flumazenil 0.2 mg, 2 mL, No Longer [facility] Route: IVP, Active 2017 Medical Drug form: [place] INJ, PRN, Dosing Weight 72.455, kg, PRN Benzodiazepin e Reversal, Initial dose, Start date: 10/31/17 15:27:00 [employer] [facility] [employer], Stop date: 11/01/17 0:00:00 CSTNotes: (Same as: Romazicon) midazolam (ANES) Route: IV, Inactive [facility] Drug form: 2018 Medical SOLN, ONCE, Center Stop date: 10/31/17 15:02:00 [employer] [facility] [employer] ceFAZolin (ANES) Route: IV, Inactive [facility] Drug form: 2018 Medical INJ, ONCE, Center Stop date: 10/31/17 14:37:00 [employer] [facility] [employer] Sodium Chloride Route: IV, Inactive [facility] 0.9% IV (ANES) Total Volume: 2018 Medical 500 mL 500, Start Center date: 10/31/17 13:50:00 [employer] [facility] [employer], Stop date: 10/31/17 14:50:00 [employer] [facility] [employer] dexmedetomidine Route: IV, Inactive [facility] (ANES) 400 Drug form: 2018 Medical microgram INJ, Start Center date: 10/31/17 13:50:00 [employer] [facility] [employer], Stop date: 10/31/17 14:50:00 [employer] [facility] [employer] Pravastatin 20 mg, 1 tab, No Longer [facility] Route: PO, Active 2017 Medical Drug form: [place] TAB, Bedtime, Dosing Weight 72.455, kg, Start date: 10/30/17 21:00:00 [employer] [facility] [employer], Duration: 30 day, Stop date: 11/28/17 21:00:00 CSTNotes: (Same as: Pravachol) Pneumovax 23 0.5 mL, Inactive [facility] Route: IM, 2017 Medical Drug Form: [place] INJ, Daily, Start date: 10/30/17 12:00:00 [employer] [facility] [employer], Duration: 1 doses or times, Stop date: 10/30/17 12:00:00 CSTNotes: (Same as: Pneumovax 23) Refrigerate Hydralazine 10 mg, 0.5 No Longer [place] mL, Route: Active 2018 Medical IV, Drug Center form: INJ, Q6H, Dosing Weight 72.455, kg, PRN Other -See Comment, Start date: 10/30/17 10:28:00 [employer] [facility] [employer], Duration: 30 day, Stop date: 11/29/17 10:27:00 [employer] [facility] [employer], SBP>160Notes: (Same as: Apresoline) Push over 5 minutes pneumococcal 0.5 mL, Inactive [place] capsular Route: IM, 2018 Medical polysaccharide Drug Form: [place] type 1 vaccine / INJ, Daily, pneumococcal Start date: capsular 10/30/17 polysaccharide 9:00:00 [employer] [facility] [employer], type 10A vaccine Duration: 1 / pneumococcal doses or capsular times, Stop polysaccharide date: type 11A vaccine 10/30/17 / pneumococcal 9:00:00 capsular CSTNotes: polysaccharide (Same as: type 12F vaccine Pneumovax 23) / pneumococcal Refrigerate capsular polysacchar influenza virus 0.5 mL, Inactive [place] vaccine, Route: IM, 2018 Medical inactivated Drug Form: [place] SUSP, Daily, Start date: 10/30/17 9:00:00 [employer] [facility] [employer], Duration: 1 doses or times, Stop date: 10/30/17 9:00:00 CSTNotes: (Same as: Fluzone Quadrivalent, Fluarix Quadrivalent) For 3 years of age and older (0.5 mL IM) Shake well before use Coreg 12.5 mg, 1 No Longer [place] tab, Route: Active 2018 Medical PO, Drug Center form: TAB, BID, Dosing Weight 72.455, kg, Start date: 10/30/17 9:00:00 [employer] [facility] [employer], Duration: 30 day, Stop date: 11/28/17 17:00:00 CSTNotes: Give with food. (Same As: Coreg) aspirin 81 mg 81 mg, 1 tab, No Longer [place] tablet, enteric Route: PO, Active 2018 Medical coated Drug form: [place] ECTAB, Daily, Dosing Weight 72.455, kg, Start date: 10/30/17 9:00:00 [employer] [facility] [employer], Duration: 30 day, Stop date: 11/28/17 9:00:00 CSTNotes: Do not crush or chew. (Same As: Ecotrin) Amlodipine 10 mg, 1 tab, Inactive [place] Route: PO, 2018 Medical Drug form: [place] TAB, Daily, Dosing Weight 72.455, kg, Start date: 10/30/17 9:00:00 [employer] [facility] [employer], Duration: 30 day, Stop date: 11/28/17 9:00:00 CSTNotes: (Same as: Norvasc) NIFEdipine 30 mg 30 mg, 1 tab, No Longer [place] oral tablet, Route: PO, Active 2018 Medical extended release Drug form: [place] ERTAB, Daily, Dosing Weight 72.455, kg, Start date: 10/30/17 9:00:00 [employer] [facility] [employer], Duration: 30 day, Stop date: 11/28/17 9:00:00 CSTNotes: (Same as: Adalat CC, Procardia XL) Give on empty stomach. Take 1 hour before or 2 hours after meal; "Avoid grapefruit and grapefruit juice". Do not crush Lisinopril 40 mg, 2 tab, No Longer [place] Route: PO, Active 2017 Medical Drug form: [place] TAB, Daily, Dosing Weight 72.455, kg, Start date: 10/30/17 9:00:00 [employer] [facility] [employer], Duration: 30 day, Stop date: 11/28/17 9:00:00 CSTNotes: (Same as: Prinivil, Zestril) duloxetine 30 mg, 1 cap, No Longer [place] Route: PO, Active 2018 Medical Drug form: [place] DRC, Daily, Dosing Weight 72.455, kg, Start date: 10/30/17 9:00:00 [employer] [facility] [employer], Duration: 30 day, Stop date: 11/28/17 9:00:00 CSTNotes: (Same as: Cymbalta) (Do Not Crush) clopidogrel 75 mg, 1 tab, No Longer [place] Route: PO, Active 2018 Medical Drug form: [place] TAB, Daily, Dosing Weight 72.455, kg, Start date: 10/30/17 9:00:00 [employer] [facility] [employer], Duration: 30 day, Stop date: 11/28/17 9:00:00 CSTNotes: (Same As: Plavix) 12 HR Clonidine 0.1 mg, 1 No Longer [place] Hydrochloride tab, Route: Active 2018 Medical 0.1 MG Extended PO, Drug Center Release Tablet form: TAB, BID, Dosing Weight 72.455, kg, Start date: 10/30/17 9:00:00 [employer] [facility] [employer], Duration: 30 day, Stop date: 11/28/17 17:00:00 CSTNotes: (Same As: Catapres) heparin 5,000 unit, 1 No Longer [place] mL, Route: Active 2018 Medical SUB-Q, Drug [place] form: INJ, Q8H, Dosing Weight 72.455, kg, Start date: 10/30/17 8:00:00 [employer] [facility] [employer], Duration: 30 day, Stop date: 11/29/17 0:00:00 CSTNotes: porcine heparin Protonix 40 mg, 1 tab, No Longer [place] Route: PO, Active 2017 Medical Drug form: [place] ECTAB, Before Breakfast, Dosing Weight 72.455, kg, Start date: 10/30/17 7:30:00 [employer] [facility] [employer], Duration: 30 day, Stop date: 11/28/17 7:30:00 CSTNotes: Tablet should not be chewed or crushed. (Same as: Protonix) Benzocaine 15 MG 1 lozenge, No Longer [place] / Menthol 3.6 MG Route: MUCOUS Active 2017 Medical Lozenge [Cepacol MEM, Drug [place] Sore Throat Pain Form: SHWETA, Relief 15/3.6] Dosing Weight 72.455, kg, Q2H, PRN Sore Throat, Start date: 10/30/17 1:15:00 [employer] [facility] [employer], Duration: 30 day, Stop date: 11/29/17 1:14:00 CSTNotes: Cepacol lozenges Dispense 1 box=16 lozenges (Same As: Cepacol Lozenges) Lasix 20 mg, 2 mL, No Longer [place] Route: IV, Active 2017 Medical Drug form: [place] INJ, Q12H, Dosing Weight 72.455, kg, Start date: 10/29/17 21:00:00 [employer] [facility] [employer], Duration: 30 day, Stop date: 11/28/17 9:00:00 CSTNotes: (Same as: Lasix) Melatonin 3 MG 3 mg, 1 tab, No Longer [place] Extended Release Route: PO, Active 2018 Medical Tablet Drug Form: Center TAB, Dosing Weight 72.455, kg, Bedtime, Start date: 10/29/17 21:00:00 [employer] [facility] [employer], Duration: 30 day, Stop date: 11/27/17 21:00:00 CSTNotes: (Same as: Melatonin) Glucagon 1 mg, Route: No Longer [place] IM, Drug Active 2017 Medical form: Center PDR/INJ, PRN, Dosing Weight 72.455, kg, PRN Blood Glucose Results, Start date: 10/29/17 20:50:00 [employer] [facility] [employer], Duration: 30 day, Stop date: 11/28/17 20:49:00 [employer] [facility] OFF[employer]ER Dextrose 50% 25 gm, 50 mL, No Longer [place] Syringe Route: IVP, Active 2018 Medical Drug Form: Center INJ, Dosing Weight 72.455, kg, PRN, PRN Blood Glucose Results, Start date: 10/29/17 20:50:00 [employer] [facility] [employer], Duration: 30 day, Stop date: 11/28/17 20:49:00 [employer] [facility] [employer]ER Insulin Lispro 8 unit, 0.08 No Longer [place] mL, Route: Active 2017 Medical SUB-Q, Drug Center form: SOLN, TID-Before Meals, Dosing Weight 72.455, kg, PRN Blood Glucose Results, Start date: 10/29/17 20:50:00 [employer] [facility] OFF[employer]ER, Duration: 30 day, Stop date: 11/28/17 20:49:00 CSTNotes: (Same as: Humalog ) Roll in palms of hands gently; Do not shake `vigorously. "Single Patient Use Only " WASTE: F/P - Black; E - Municipal Trash Bin Stable for 28 days at room temperature. Expires in days from _Date Magnesium Oxide 800 mg, 2 No Longer [place] tab, Route: Active 2018 Medical PO, Drug Center form: TAB, PRN, Dosing Weight 72.455, kg, PRN Abnormal Lab Result, For NON-ICU Patients Only., Start date: 10/29/17 20:50:00 [employer] [facility] [employer], Duration: 30 day, Stop date: 11/28/17 20:49:00 CSTNotes: (Same as: Mag-Ox 400) Magnesium oxide [id number] elemental magnesium Dose=____mg magnesium oxide (___mg elemental magnesium) Calcium 2 gm, 20 mL, No Longer [place] Gluconate Route: IVPB, Active 2018 Medical PRN, Dosing Center Weight 72.455, kg, PRN Abnormal Lab Result, For NON-ICU Patients Only., Start date: 10/29/17 20:50:00 [employer] [facility] [employer], Duration: 30 day, Stop date: 11/28/17 20:49:00 CSTNotes: WASTE: F/P - Sink; E - Municipal Trash Bin sodium phosphate 15 mmol, 5 No Longer [place] mL, Route: Active 2018 Medical IVPB, PRN, Center Dosing Weight 72.455, kg, PRN Abnormal Lab Result, For NON-ICU Patients Only., Start date: 10/29/17 20:50:00 [employer] [facility] [employer], Duration: 30 day, Stop date: 11/28/17 20:49:00 [employer] [facility] OFF[employer]ER potassium 30 mmol, 10 No Longer [place] phosphate mL, Route: Active 2018 Medical IVPB, PRN, Center Dosing Weight 72.455, kg, PRN Abnormal Lab Result, For NON-ICU Patients Only., Start date: 10/29/17 20:50:00 [employer] [facility] OFF[employer]ER, Duration: 30 day, Stop date: 11/28/17 20:49:00 CSTNotes: (Same as: K Phosphate.) 1 mMol phoshate has 1.47 mEq potassium Infuse over 4 hours Magnesium 2 gm, 50 mL, No Longer [place] Sulfate Route: IVPB, Active 2018 Medical Drug form: Center INJ, PRN, Dosing Weight 72.455, kg, PRN Abnormal Lab Result, For NON-ICU Patients Only., Start date: 10/29/17 20:50:00 [employer], Duration: 30 day, Stop date: 11/28/17 20:49:00 CSTNotes: WASTE: F/P - Sink; E - Municipal Trash Bin Potassium 20 mEq, 1 No Longer [place] Chloride tab, Route: Active 2018 Medical PO, Drug Center form: ERTAB, PRN, Dosing Weight 72.455, kg, PRN Abnormal Lab Result, For NON-ICU Patients Only, Start date: 10/29/17 20:50:00 [employer] [employer], Duration: 30 day, Stop date: 11/28/17 20:49:00 CSTNotes: (Same as: K-Dur 20) "Do Not Crush" With food and full glass of water potassium 2 pkt, Route: No Longer [place] phosphate-sodium PO, Drug Active 2018 Medical phosphate 250 Form: [place] mg-280 mg-160 mg PDR/REC, oral powder for Dosing Weight reconstitution 72.455, kg, PRN, PRN Abnormal Lab Result, For NON-ICU Patients Only, Start date: 10/29/17 20:50:00 [employer], Duration: 30 day, Stop date: 11/28/17 20:49:00 CSTNotes: (Same as: Phos-NaK) Each 1.5 gm pkt has 250mg phosphorous. Mix w/2.5oz water and stir. Magnesium 2 gm, 50 mL, Inactive [place] Sulfate Route: IVPB, 2017 Medical Drug form: [place] INJ, ONCE, Dosing Weight 72.455, kg, Start date: 10/29/17 19:55:00 [employer], Stop date: 10/29/17 19:55:00 CSTNotes: WASTE: F/P - Sink; E - Municipal Trash Bin insulin glargine SUB-Q, Daily, No Longer [facility] (concentrated) 0 Refill(s) Active 2018 Medical 300 units/mL [place] subcutaneous solution DULoxetine 30 mg 30 mg=1 cap, No Longer [place] oral delayed PO, Daily, # Active 2018 Medical release capsule 90 cap, 0 [place] Refill(s) NIFEdipine 30 mg 30 mg=1 tab, No Longer [place] oral tablet, PO, Daily, # Active 2018 Medical extended release 90 tab, 1 Center Refill(s) Amlodipine 10 mg, 1 tab, No Longer [facility] Route: PO, Active 2015 Medical Drug form: [place] TAB, Daily, Dosing Weight 78.636, kg, Start date: 05/30/16 9:00:00 CDT, Duration: 30 day, Stop date: 06/28/16 9:00:00 CDTNotes: (Same as: Norvasc) Protonix 40 mg, 1 tab, No Longer [facility] Route: PO, Active 2015 Medical Drug form: [place] ECTAB, Daily, Dosing Weight 78.636, kg, Start date: 05/30/16 9:00:00 CDT, Duration: 30 day, Stop date: 06/28/16 9:00:00 CDTNotes: Tablet should not be chewed or crushed. (Same as: Protonix) Lisinopril 40 mg, 2 tab, No Longer [facility] Route: PO, Active 2015 Medical Drug form: [place] TAB, Daily, Dosing Weight 78.636, kg, Start date: 05/30/16 9:00:00 CDT, Duration: 30 day, Stop date: 06/28/16 9:00:00 CDTNotes: (Same as: Prinivil, Zestril) clopidogrel 75 mg, 1 tab, No Longer [facility] Route: PO, Active 2015 Medical Drug form: [place] TAB, Daily, Dosing Weight 78.636, kg, Start date: 05/30/16 9:00:00 CDT, Duration: 30 day, Stop date: 06/28/16 9:00:00 CDTNotes: (Same As: Plavix) Aspirin 81 MG 81 mg, 1 tab, No Longer [facility] Enteric Coated Route: PO, Active 2015 Medical Tablet Drug form: [place] ECTAB, Daily, Dosing Weight 78.636, kg, Start date: 05/30/16 9:00:00 CDT, Duration: 30 day, Stop date: 06/28/16 9:00:00 CDTNotes: Do not crush or chew. (Same As: Ecotrin) NovoLOG FlexPen Route: SUB-Q, No Longer [facility] Drug form: Active 2015 Medical INJ, Before Center Breakfast, Dosing Weight 78.636, kg, Start date: 05/30/16 7:30:00 CDT, Duration: 30 day, Stop date: 06/28/16 7:30:00 CDT Pravastatin 20 mg, 1 tab, Inactive [facility] Route: PO, 2015 Medical Drug form: [place] TAB, Bedtime, Dosing Weight 78.636, kg, Start date: 05/29/16 21:00:00 CDT, Duration: 30 day, Stop date: 06/27/16 21:00:00 CDTNotes: (Same as: Pravachol) glimepiride 4 mg, 1 tab, Inactive [facility] Route: PO, 2015 Medical Drug form: [place] TAB, BID, Dosing Weight 78.636, kg, Start date: 05/29/16 17:00:00 CDT, Duration: 30 day, Stop date: 06/28/16 9:00:00 CDTNotes: (Same as: Amaryl) cyclobenzaprine 10 mg, 1 tab, Inactive [facility] Route: PO, 2016 Medical Drug form: Center TAB, QPM, Dosing Weight 78.636, kg, Start date: 05/29/16 17:00:00 CDT, Duration: 30 day, Stop date: 06/27/16 17:00:00 CDTNotes: (Same As: Flexeril) 12 HR Clonidine 0.1 mg, 1 Inactive [facility] Hydrochloride tab, Route: 2015 Medical 0.1 MG Extended PO, Drug Center Release Tablet form: TAB, BID, Dosing Weight 78.636, kg, Start date: 05/29/16 17:00:00 CDT, Duration: 30 day, Stop date: 06/28/16 9:00:00 CDTNotes: (Same As: Catapres) Coreg 12.5 mg, 1 Inactive [facility] tab, Route: 2015 Medical PO, Drug Center form: TAB, BID, Dosing Weight 78.636, kg, Start date: 05/29/16 17:00:00 CDT, Duration: 30 day, Stop date: 06/28/16 9:00:00 CDTNotes: Give with food. (Same As: Coreg) amLODIPine 10 mg 10 mg=1 tab, Active [facility] oral tablet PO, Daily, # 2016 Medical 90 tab, 3 Center Refill(s) amLODIPine 10 mg 10 mg=1 tab, Inactive 05/29[facility] oral tablet PO, Daily, # 2016 Medical 90 tab, 3 Center Refill(s) amLODIPine 10 mg 5 mg, PO, Inactive 05/29[facility] oral tablet Daily, # 90 2016 Medical tab, 0 Center Refill(s) Nitroglycerin 0.4 mg, 1 Inactive 05/29[facility] tab, Route: 2016 Medical SL, Drug Center form: TAB, Q5Min, Dosing Weight 78.636, kg, PRN Chest Pain, Start date: 05/29/16 9:02:00 CDT, Duration: 3 doses or times, Stop date: 05/29/16 17:00:00 CDTNotes: (Same as:Nitroquick , Nitrostat) "Do Not Crush" Sublingual tablet Sodium Chloride 750 mL, Rate: Inactive [facility] 0.154 MEQ/ML 75 ml/hr, 2016 Medical Injectable Infuse over: Center Solution 10 hr, Route: IV, Dosing Weight 78.636 kg, Total Volume: 750, Start date: 05/29/16 9:02:00 CDT, Duration: 10 hr, Stop date: 05/29/16 19:01:00 CDT 24 HR Metformin 500 mg=1 tab, Active [place] hydrochloride PO, 2016 Medical 500 MG Extended BID-Meals, # Center Release Tablet 60 tab, 1 Refill(s) 12 HR Clonidine 0.1 mg=1 tab, Active [facility] Hydrochloride PO, BID, # 60 2016 Medical 0.1 MG Extended tab, 0 Center Release Tablet Refill(s) Amlodipine 5 mg, PO, Inactive [place] Daily, 0 2016 Medical Refill(s) Center meloxicam 15 mg 15 mg=1 tab, Active [facility] oral tablet PO, Daily, # 2016 Medical 30 tab, 0 Center Refill(s) sodium chloride 1,000 mL, Inactive [facility] 0.9% 1000 ml INJ Rate: 100 2015 Medical 1,000 mL ml/hr, Infuse Center over: 10 hr, Route: IVPB, Dosing Weight 78.636 kg, Total Volume: 1,000, Start date: 05/29/16 5:54:00 CDT, Duration: 30 day, Stop date: 06/28/16 5:53:00 CDT Keflex 500 mg 500 mg, 1 PO Active [place] [facility] oral capsule cap, PO, Q8H, 2012 Medical 9 cap, Center Substitution Allowed [place] 5/325 oral 1 tab, PO, PO Active [place] [facility] tablet Q4H, PRN, 20 2012 Medical tab, Pain, Center Substitution Allowed, Maintenance, TAB magnesium 4 gm, 100 mL, IVPB Active [place] [facility] sulfate Route: IVPB, 2012 Medical Drug form: Center INJ, ONCE, Dosing Weight 81.818, kg, Total dose=4 gm, Start date: 01/20/13 9:40:00, Stop date: 01/20/13 9:40:00 magnesium 2 gm, 50 mL, IVPB No Longer [facility] sulfate Route: IVPB, Active 2012 Medical Drug form: [place] INJ, ONCE, Dosing Weight 81.818, kg, Total dose=2 gm, Start date: 01/20/13 9:34:00, Duration: 1 doses or times, Stop date: 01/20/13 9:34:00 clopidogrel 75 mg, 1 tab, PO No Longer [facility] Route: PO, Active 2012 Medical Drug form: [place] TAB, Daily, Dosing Weight 81.818, kg, Start date: 01/20/13 9:00:00, Duration: 30 day, Stop date: 02/18/13 9:00:00 citalopram 10 mg, 1 tab, PO No Longer [facility] Route: PO, Active 2012 Medical Drug form: [place] TAB, Daily, Dosing Weight 81.818, kg, Start date: 01/20/13 9:00:00, Duration: 30 day, Stop date: 02/18/13 9:00:00 aspirin 81 mg 81 mg, 1 tab, PO No Longer [facility] tablet, enteric Route: PO, Active 2012 Medical coated Drug form: [place] ECTAB, Daily, Dosing Weight 81.818, kg, Start date: 01/20/13 9:00:00, Duration: 30 day, Stop date: 02/18/13 9:00:00 pravastatin 20 mg, 1 tab, PO No Longer Gautam [facility] Route: PO, Active 2012 Medical Drug form: [place] TAB, Daily, Dosing Weight 81.818, kg, Start date: 01/20/13 9:00:00, Duration: 30 day, Stop date: 02/18/13 9:00:00 Protonix 40 mg, 1 tab, PO No Longer Gautam [facility] Route: PO, Active 2012 Medical Drug form: [place] ECTAB, Daily, Dosing Weight 81.818, kg, Start date: 01/20/13 9:00:00, Duration: 30 day, Stop date: 02/18/13 9:00:00 lisinopril 40 mg, 2 tab, PO No Longer Gautam [facility] Route: PO, Active 2012 Medical Drug form: Center TAB, Daily, Dosing Weight 81.818, kg, Start date: 01/20/13 9:00:00, Duration: 30 day, Stop date: 02/18/13 9:00:00 Saline Flush 5 ml, Route: IVP No Longer Gautam [facility] 0.9% IVP, Drug Active 2012 Medical Form: INJ, Center Dosing Weight 81.818, kg, Q12H, Start date: 01/19/13 21:00:00, Duration: 30 day, Stop date: 02/18/13 9:00:00 [place] 5/325 oral 1 tab, Route: PO No Longer Gautam [facility] tablet PO, Drug Active 2012 Medical Form: TAB, [place] Dosing Weight 81.818, kg, Q4H, PRN Pain, Start date: 01/19/13 18:24:00, Duration: 30 day, Stop date: 02/18/13 18:23:00 Tylenol 650 mg, 2 PO No Longer Gautam [facility] tab, Route: Active 2012 Medical PO, Drug Center form: TAB, Q4H, Dosing Weight 81.818, kg, PRN Pain, Start date: 01/19/13 18:16:00, Duration: 30 day, Stop date: 02/18/13 18:15:00 cyclobenzaprine 5 mg, 0.5 PO No Longer Gautam [facility] tab, Route: Active 2012 Medical PO, Drug Center form: TAB, QPM, Dosing Weight 81.818, kg, Start date: 01/19/13 17:00:00, Duration: 30 day, Stop date: 02/17/13 17:00:00 Coreg 12.5 mg, 1 PO No Longer Gautam [facility] tab, Route: Active 2012 Medical PO, Drug Center form: TAB, BID, Dosing Weight 81.818, kg, Start date: 01/19/13 17:00:00, Duration: 30 day, Stop date: 02/18/13 9:00:00 cefazolin (SCIP) 1 gm, Route: IVPB No Longer Gautam [facility] IVPB, Drug Active 2012 Medical form: Center PDR/INJ, Q8H, Dosing Weight 81.818, kg, Start date: 01/19/13 17:00:00, Duration: 3 doses or times, Stop date: 01/20/13 9:00:00 glimepiride 4 mg, 1 tab, PO No Longer Gautam [facility] Route: PO, Active 2012 Medical Drug form: [place] TAB, BID, Dosing Weight 81.818, kg, Start [...] 2012 Medical Water 50 ml Drug form: [place] INJ, ONCE, Dosing Weight 81.818, kg, Priority: [...] Route: IVP, Active 2012 Medical Drug form: [place] INJ, Q8H, Dosing Weight 81.818, kg, PRN [...] 5 ml, Route: IVP No Longer Gautam [place] 0.9% IVP, Drug Active 2012 Medical Form: INJ, Center Dosing Weight 81.818, kg, Q12H, Start date: 01/19/13 9:00:00, Duration: 30 day, Stop date: 02/17/13 21:00:00 magnesium 4 gm, 100 mL, IV No Longer [place] sulfate Route: IV, Active 2012 Medical Drug form: [place] INJ, ONCE, Dosing Weight 81.818, kg, stat, Start date: 01/19/13 7:29:00, Stop date: 01/19/13 7:29:00 lisinopril 40 mg 40 mg, 1 tab, PO Active Gautam [place] oral tablet PO, Daily, 30 2012 Medical tab, Center Substitution Allowed, TAB NovoLog FlexPen Per Sliding SUB-Q Active [facility] Scale, SUB-Q, 2012 Medical Before [place] Breakfast, Substitution Allowed, INJ cyclobenzaprine 5 mg, 1 tab, PO Active [facility] 01/19[facility] [place] 5 mg oral tablet PO, QPM, 2012 Medical Substitution Center Allowed, TAB aspirin 81 mg 81 mg, 1 tab, PO Active Gautam 01/19[facility] [place] tablet, enteric PO, Daily, 0 2012 Medical coated tab, Center Substitution Allowed, ECTAB gabapentin 100 100 mg, 1 PO Active Gautam 01/19[facility] [place] mg oral capsule cap, PO, Q8H, 2012 Medical Substitution Center Allowed, CAP glimepiride 4 mg 4 mg, 1 tab, PO Active Gautam 01/19[facility] [place] oral tablet PO, BID, 30 2012 Medical tab, Center Substitution Allowed, TAB warfarin 5 mg 5 mg, 1 tab, PO No Longer [place] oral tablet PO, Daily, 30 Active 2012 Medical tab, Center Substitution Allowed, TAB pravastatin 20 20 mg, 1 tab, PO Active Gautam 01/19[facility] [place] mg oral tablet PO, Daily, 30 2012 Medical tab, Center Substitution Allowed, TAB clopidogrel 75 75 mg, 1 tab, PO Active Gautam 01/19[facility] [place] mg oral tablet PO, Daily, 2012 Medical tab, Center Substitution Allowed, TAB citalopram 10 mg 10 mg, 1 tab, PO Active Gautam [facility] oral tablet PO, Daily, 2012 Medical tab, Center Substitution Allowed, TAB Protonix 40 mg 40 mg, 1 tab, PO Active Gautam [facility] oral enteric PO, Daily, 30 2012 Medical coated tablet tab, Center Substitution Allowed, ECTAB Coreg 12.5 mg 12.5 mg, 1 PO Active Gautam [facility] oral tablet tab, PO, BID, 2012 Medical 180 tab, Center Substitution Allowed, TAB Saline Flush 5 ml, Route: IVP No Longer Gautam [facility] 0.9% IVP, Drug Active 2012 Medical Form: INJ, Center Dosing Weight 81.818, kg, PRN, PRN Line Flush, Start date: 01/19/13 6:11:00, Duration: 30 day, Stop date: 02/18/13 6:10:00 warfarin 4 mg, 2 tab, PO No Longer [place] [facility] Route: PO, Active 2011 Medical Drug form: Center TAB, Q5PM, Dosing Weight 86.364, kg, Start date: 07/31/12 17:00:00, Duration: 1 doses or times, Stop date: 07/31/12 17:00:00 warfarin 4 mg, 2 tab, PO No Longer [place] [facility] Route: PO, Active 2011 Medical Drug form: Center TAB, Q5PM, Dosing Weight 86.364, kg, Start date: 07/30/12 17:00:00, Duration: 1 doses or times, Stop date: 07/30/12 17:00:00 pravastatin 20 40 mg, 2 tab, [facility] mg oral tablet PO, QPM, 60 2011 Medical tab, Center Substitution Allowed, TAB Flexeril 10 mg 5 mg, 0.5 PO Active [place] [facility] oral tablet tab, PO, QPM, 2011 Medical 30 tab, Center Substitution Allowed, TAB [place] 10/325 1 tab, PO, PO Active [place] [facility] oral tablet BID, PRN, 60 2011 Medical [...] 40 mg, 1 tab, PO Active [place] 07/30/ [place] oral enteric PO, Before 2011 Medical coated tablet Dinner, Center tab, Substitution Allowed, ECTAB magnesium oxide 400 mg, 1 PO Active [place] 400 mg oral tab, PO, TID, 2011 Medical tablet 90 tab, Center Substitution Allowed, TAB lisinopril 10 mg 10 mg, 1 tab, PO Active [place] 07/30/ [place] oral tablet PO, Daily, 2011 Medical tab, [place] Substitution Allowed, TAB insulin glargine 20 unit, 0.2 SUB-Q Active [place] 100 units/mL mL, SUB-Q, 2011 Medical subcutaneous Daily, 1 mL, [place] solution Substitution Allowed, SOLN gabapentin 100 100 mg, 1 PO Active [place] 07/30/ [place] mg oral capsule cap, PO, Q8H, 2011 Medical 90 cap, Center Substitution Allowed, CAP clopidogrel 75 75 mg, 1 tab, PO Active [place] 07/30/ [place] mg oral tablet PO, Daily, 2011 Medical tab, Center Substitution Allowed, TAB citalopram 10 mg 10 mg, 1 tab, PO Active [place] 07/30/ [place] oral tablet PO, Daily, 2011 Medical tab, [place] Substitution Allowed, TAB Coreg 12.5 mg 12.5 mg, 1 PO Active [place] oral tablet tab, PO, 2011 Medical Q12H, 60 tab, [place] Substitution Allowed, TAB aspirin 81 mg 81 mg, 1 tab, PO Active [place] tablet, enteric PO, Daily, 2011 Medical coated tab, [place] Substitution Allowed, ECTAB aspirin 81 mg 81 mg, 1 tab, PO No Longer [place] 07/30/ [place] tablet, enteric Route: PO, Active [facility] Alberto 2011 Medical coated Drug form: Center ECTAB, Daily, Start date: 07/30/12 8:00:00, Duration: 30 day, Stop date: 08/28/12 8:00:00 aspirin 325 mg 325 mg, 1 PO No Longer [facility] tablet, enteric tab, Route: Active Mario Alberto 2011 Medical coated PO, Drug Center form: ECTAB, ONCE, Start date: 07/29/12 22:30:00, Stop date: 07/29/12 22:30:00 warfarin 5 mg, 1 tab, PO No Longer [facility] Route: PO, Active [facility] 2011 Medical Drug form: Center TAB, ONCE, Dosing Weight 86.364, kg, Priority: NOW, Start date: 07/29/12 18:48:00, Stop date: 07/29/12 18:48:00 Flexeril 5 mg, 0.5 PO No Longer [place] [facility] tab, Route: Active 2011 Medical PO, Drug Center form: TAB, QPM, Dosing Weight 86.364, kg, Start date: 07/29/12 17:00:00, Duration: 30 day, Stop date: 08/27/12 17:00:00 pravastatin 40 mg, 2 tab, PO No Longer [place] [facility] Route: PO, Active 2011 Medical Drug form: Center TAB, QPM, Dosing Weight 86.364, kg, Start date: 07/27/12 17:00:00, Duration: 30 day, Stop date: 08/25/12 17:00:00 Coumadin 7.5 mg, 1 PO No Longer [place] 07/26[facility] tab, Route: Active 2011 Medical PO, Drug Center form: TAB, Q5PM, Dosing Weight 86.364, kg, Start date: 07/26/12 17:00:00, Duration: 1 doses or times, Stop date: 07/26/12 17:00:00 Coumadin 7.5 mg, 1 PO No Longer [place] [facility] tab, Route: Active 2011 Medical PO, Drug Center form: TAB, ONCE, Dosing Weight 86.364, kg, Start date: 07/25/12 17:45:00, Stop date: 07/25/12 17:45:00 acetaminophen 325 mg, 1 PO No Longer [place] [facility] tab, Route: Active 2011 Medical PO, Drug Center form: TAB, BID, Dosing Weight 86.364, kg, Start date: 07/25/12 7:00:00, Duration: 30 day, Stop date: 08/23/12 12:00:00 warfarin 7.5 mg, 1 PO No Longer [facility] 07/24[facility] tab, Route: Active 2011 Medical PO, Drug Center form: TAB, Q5PM, Dosing Weight 86.364, kg, Start date: 07/24/12 17:00:00, Duration: 1 doses or times, Stop date: 07/24/12 17:00:00 warfarin 7.5 mg, 1 PO No Longer [facility] 07/23[facility] tab, Route: Active 2011 Medical PO, Drug Center form: TAB, Q5PM, Dosing Weight 86.364, kg, Start date: 07/23/12 17:00:00, Duration: 1 doses or times, Stop date: 07/23/12 17:00:00 warfarin 7.5 mg, 1 PO No Longer [place] 07/22[facility] tab, Route: Active 2011 Medical PO, Drug Center form: TAB, ONCE, Dosing Weight 86.364, kg, Start date: 07/22/12 17:24:00, Stop date: 07/22/12 17:24:00 Dextrose 50% 25 gm, 50 mL, IVP No Longer [facility] 07/22[facility] Syringe Route: IVP, Active 2011 Medical Drug Form: Center INJ, Dosing Weight 86.364, kg, PRN, PRN Blood Glucose Results, Start date: 07/22/12 13:47:00, Duration: 30 day, Stop date: 08/21/12 13:46:00 glucagon 1 mg, Route: IM No Longer [facility] 07/22[facility] IM, Drug Active 2011 Medical form: Center PDR/INJ, PRN, Dosing Weight 86.364, kg, PRN Blood Glucose Results, Start date: 07/22/12 13:47:00, Duration: 30 day, Stop date: 08/21/12 13:46:00 Insulin regular 4 unit, 0.04 SUB-Q No Longer [facility] 07/22[facility] mL, Route: Active 2011 Medical SUB-Q, Drug Center form: SOLN, Bedtime, Dosing Weight 86.364, kg, PRN Blood Glucose Results, Start date: 07/22/12 13:47:00, Duration: 30 day, Stop date: 08/21/12 13:46:00 pneumococcal 0.5 ml, IM No Longer [facility] OPID 23-valent Route: IM, Active 2011 Julian, vaccine Drug Form: [facility] INJ, Start Medical date: Center 07/22/12 9:00:00, Stop date: 07/22/12 9:00:00 lisinopril 10 mg, 1 tab, PO No Longer [facility] Route: PO, Active 2011 Medical Drug form: Center TAB, Daily, Dosing Weight 67, kg, Start date: 07/22/12 9:00:00, Duration: 30 day, Stop date: 08/20/12 9:00:00 insulin glargine 20 unit, 0.2 SUB-Q No Longer [facility] mL, Route: Active 2011 Medical SUB-Q, Drug Center form: INJ, Daily, Dosing Weight 67, kg, Start date: 07/22/12 9:00:00, Duration: 30 day, Stop date: 08/20/12 9:00:00 clopidogrel 75 mg, 1 tab, PO No Longer [facility] Route: PO, Active 2011 Medical Drug form: Center TAB, Daily, Dosing Weight 67, kg, Start date: 07/22/12 9:00:00, Duration: 30 day, Stop date: 08/20/12 9:00:00 citalopram 10 mg, 1 tab, PO No Longer [facility] Route: PO, Active 2011 Medical Drug form: Center TAB, Daily, Dosing Weight 67, kg, Start date: 07/22/12 9:00:00, Duration: 30 day, Stop date: 08/20/12 9:00:00 aspirin 325 mg 325 mg, 1 PO No Longer [place] [facility] tablet tab, Route: Active 2011 Medical PO, Drug Center form: TAB, Daily, Dosing Weight 67, kg, Start date: 07/22/12 9:00:00, Duration: 30 day, Stop date: 08/20/12 9:00:00 Coreg 12.5 mg, 1 PO No Longer [facility] 07/22[facility] tab, Route: Active 2011 Medical PO, Drug Center form: TAB, Q12H, Dosing Weight 67, kg, Start date: 07/21/12 21:00:00, Stop date: 08/20/12 9:00:00 magnesium oxide 400 mg, 1 PO No Longer [facility] tab, Route: Active 2011 Medical PO, Drug Center form: TAB, TID, Dosing Weight 67, kg, Start date: 07/21/12 17:00:00, Duration: 30 day, Stop date: 08/20/12 13:00:00 docusate 100 mg, 1 PO No Longer [facility] cap, Route: Active 2011 Medical PO, Drug Center form: CAP, BID, Dosing Weight 67, kg, Start date: 07/21/12 17:00:00, Duration: 30 day, Stop date: 08/20/12 9:00:00 Coumadin 7.5 mg, PO No Longer [place] Route: PO, Active 2011 Medical Drug form: [place] TAB, Q5PM, Dosing Weight 67, kg, Start date: 07/21/12 17:00:00, Duration: 30 day, Stop date: 08/19/12 17:00:00 atorvastatin 80 mg, 1 tab, PO No Longer [place] [facility] Route: PO, Active 2011 Medical Drug form: [place] TAB, Bedtime, Dosing Weight 67, kg, Start date: 07/21/12 17:00:00, Duration: 30 day, Stop date: 08/19/12 21:00:00 magnesium oxide 400 mg, 1 PO No Longer [facility]Amanda [facility] base 500 mg oral tab, Route: Active 2011 Medical tablet PO, Drug Center Form: TAB, Dosing Weight 67, kg, TID, Start date: 07/21/12 17:00:00, Duration: 30 day, Stop date: 08/20/12 13:00:00 Protonix 40 mg, 1 tab, PO No Longer [facility] Route: PO, Active 2011 Medical Drug form: [place] ECTAB, Before Dinner, Dosing Weight 67, kg, Start date: 07/21/12 16:30:00, Duration: 30 day, Stop date: 08/19/12 16:30:00 Lantus 100 20 unit, 0.2 SUB-Q Active [facility]-Amanda [facility] units/mL mL, SUB-Q, 2011 Medical subcutaneous Daily, 1 Center solution vial, Substitution Allowed, SOLN magnesium oxide 500 mg, PO, PO Active Mike-Amanda [place] 500 mg oral TID, 90 tab, 2011 Medical tablet Substitution Center Allowed, TAB Neurontin 100 mg 100 mg, 1 PO Active Mike-Amanda [facility] oral capsule cap, PO, Q8H, 2011 90 cap, Center Substitution Allowed, CAP Coumadin 7.5 mg 7.5 mg, 1 PO Active Mike-Amanda [facility] oral tablet tab, PO, 2011 Medical Q5PM, 31 tab, Center Substitution Allowed, TAB Protonix 40 mg 40 mg, 1 tab, PO Active [facility] 07/21[facility] oral enteric PO, Before 2011 Medical coated tablet Dinner, 30 [place] tab, Substitution Allowed, ECTAB lisinopril 10 mg 10 mg, 1 tab, PO Active [facility]Amanda 07/21[facility] [place] oral tablet PO, Daily, 2011 Medical tab, Center Substitution Allowed, TAB clopidogrel 75 75 mg, 1 tab, PO Active [facility]Amanda 07/21[facility] [place] mg oral tablet PO, Daily, 2011 Medical tab, Center Substitution Allowed, TAB citalopram 10 mg 10 mg, 1 tab, PO Active Mike-Amanda [place] oral tablet PO, Daily, 2011 Medical tab, Center Substitution Allowed, TAB Coreg 3.125 mg 3.125 mg, 1 PO Active [facility]Amanda 07/21[facility] [place] oral tablet tab, PO, 2011 Medical Q12H, 60 tab, Center Substitution Allowed, TAB atorvastatin 80 80 mg, 1 tab, PO Active [facility]Amanda 07/21[facility] [place] mg oral tablet PO, QPM, 30 2011 Medical tab, Center Substitution Allowed, TAB aspirin 325 mg 325 mg, 1 PO Active Mike-Amanda 07/21[facility] [place] tablet tab, PO, 2011 Medical Daily, 30 Center tab, Substitution Allowed, TAB gabapentin 100 mg, 1 PO No Longer [facility] cap, Route: Active 2011 Medical PO, Drug Center form: CAP, Q8H, Dosing Weight 67, kg, Start date: 07/21/12 16:00:00, Duration: 30 day, Stop date: 08/20/12 8:00:00 Neurontin 100 mg 100 mg, 1 PO No Longer [facility] oral capsule cap, Route: Active 2011 Medical [...] Duration: 30 day, Stop date: 08/20/12 14:56:00 [place] 10/325 1 tab, Route: PO No Longer [facility] [place] oral tablet PO, Drug Active 2011 Medical Form: TAB, Center Dosing Weight 67, kg, Q4H, PRN Pain, Start date: 07/21/12 14:56:00, Duration: 30 day, Stop date: 08/20/12 14:55:00 Coumadin 7.5 mg 7.5 mg, 1 PO No Longer Mike-Amanda [place] oral tablet tab, PO, Active 2011 [...] 400 mg, 1 PO No Longer Tolliver [place] oral tablet tab, Route: Active 2011 Medical PO, Drug Center form: TAB, Q4H, Dosing Weight 67, kg, PRN Pain, Start date: 07/21/12 1:32:00, Duration: 30 day, Stop date: 08/20/12 1:31:00 warfarin 5 mg, 1 tab, PO No Longer [place] Route: PO, Active 2011 Medical Drug form: Center TAB, Q5PM, Dosing Weight 67, kg, Start date: 07/20/12 21:00:00, Duration: 1 doses or times, Stop date: 07/20/12 21:00:00 metoprolol 5 5 mg, 5 mL, IVP No Longer Shayne [place] mg/5 ml INJ Route: IVP, Active 2011 Medical Drug form: [place] INJ, ONCE, Dosing Weight 67, kg, PRN [...] gm, 50 mL, IVPB No Longer Walker [place] sulfate Route: IVPB, Active 2011 Medical [...] gm, 50 mL, IVPB No Longer Mike-Amanda [place] sulfate Route: IVPB, Active 2011 Medical Drug form: Center INJ, Q2H, Dosing Weight 67, kg, Start date: 07/18/12 8:00:00, Duration: 3 doses or times, Stop date: 07/18/12 12:00:00, For Mg=1.0 - 1.4 mg/dLFor Mg=1.0 - 1.4 mg/dL Saline Flush 5 ml, Route: IVP No Longer Ila Reddy 0.9% IVP, Drug Active 2011 Medical Form: INJ, Center Dosing Weight 67, kg, Q12H, Start date: 07/17/12 21:00:00, Duration: 30 day, Stop date: 08/16/12 9:00:00 Coreg 6.25 mg, PO No Longer Mike-Amanda [place] Route: PO, Active 2011 Medical ONCE, Dosing Center Weight 67, kg, Start date: 07/17/12 14:49:00, Stop date: 07/17/12 14:49:00 Saline Flush 5 ml, Route: IVP No Longer Ila Reddy 0.9% IVP, Drug Active 2011 Medical Form: INJ, Center Dosing Weight 67, kg, PRN, PRN Line Flush, Start date: 07/17/12 14:12:00, Duration: 30 day, Stop date: 08/16/12 14:11:00 nitroglycerin SL 0.4 mg, 1 SL No Longer Ila Reddy Tab tab, Route: Active 2011 Medical SL, [...] Coreg 6.25 mg, PO No Longer Walker [place] Route: PO, Active 2011 Medical Drug form: [place] TAB, ONCE, Dosing Weight 67, kg, Start date: 07/17/12 8:46:00, Stop date: 07/17/12 8:46:00 magnesium 2 gm, 50 mL, IVPB No Longer Cody [place] sulfate Route: IVPB, Active 2011 Medical Drug form: [place] INJ, ONCE, Dosing Weight 67, kg, Total [...] Route: PO, Active 2011 Medical Drug form: [place] TAB, QPM, Dosing Weight 82.273, kg, Start date: 07/16/12 17:00:00, Duration: 30 day, Stop date: 08/14/12 17:00:00 Protonix 40 mg, 1 tab, PO No Longer Valentin [place]dy Route: PO, Active 2011 Medical Drug form: [place] ECTAB, Before Dinner, Dosing Weight 82.273, kg, [...] 4,000 unit, 4 IV No Longer Michael [place] time bolus for mL, Route: Active 2011 Medical ACS IV, Drug Center form: INJ, ONCE, Dosing Weight 82.273, kg, Priority: STAT, Start date: 07/16/12 11:09:00, Stop date: 07/16/12 11:09:00 Heparin - 25,000 unit, IV No Longer Siddiqui [place] infusion (ACS 500 mL, Rate: Active 2011 Medical Protocol) Start at Center heparin 25,000 units/kg/hr - units in D5W 500 adjust per mL Premix 25,000 ACS protocol, unit Dosing Weight 82.273, kg, Route: IV, Total Volume: 500 ml, Start date: 07/16/12 11:09:00, Duration: 30 day, Stop date: 08/15/12 11:08:00, Replace Every: 24 hr lisinopril 10 mg, 1 tab, PO No Longer Valentin [facility] Route: PO, Active 2011 Medical Drug form: Center TAB, Daily, Dosing Weight 82.273, kg, Start date: 07/16/12 9:00:00, Duration: 30 day, Stop date: 08/14/12 9:00:00 insulin glargine 20 unit, SUB-Q No Longer Cody [place] Route: SUB-Q, Active 2011 Medical Drug form: Center INJ, Daily, Dosing Weight 82.273, kg, Start date: 07/16/12 9:00:00, Duration: 30 day, Stop date: 08/14/12 9:00:00 clopidogrel 75 mg, 1 tab, PO No Longer Valentin [facility] Route: PO, Active 2011 Medical Drug form: Center TAB, Daily, Dosing Weight 82.273, kg, Start date: 07/16/12 9:00:00, Duration: 30 day, Stop date: 08/14/12 9:00:00 citalopram 10 mg, 1 tab, PO No Longer Valentin [facility] Route: PO, Active 2011 Medical Drug form: Center TAB, Daily, Dosing Weight 82.273, kg, Start date: 07/16/12 9:00:00, Duration: 30 day, Stop date: 08/14/12 9:00:00 aspirin 325 mg 325 mg, 1 PO No Longer Valentin [facility] tablet tab, Route: Active 2011 Medical PO, Drug Center form: TAB, Daily, Dosing Weight 82.273, kg, Start date: 07/16/12 9:00:00, Duration: 30 day, Stop date: 08/14/12 9:00:00 docusate 100 mg, 1 PO No Longer Valentin [facility] cap, Route: Active 2011 Medical PO, Drug Center form: CAP, BID, Dosing Weight 82.273, kg, Start date: 07/16/12 9:00:00, Duration: 30 day, Stop date: 08/14/12 17:00:00 magnesium 2 gm, 50 mL, IVPB No Longer Valentin [facility] sulfate Route: IVPB, Active 2011 Medical Drug form: Center INJ, Q2H, Dosing Weight 82.273, kg, Total dose=4 gm, Start date: 07/16/12 8:00:00, Duration: 1 doses or times, Stop date: 07/16/12 10:00:00 magnesium 2 gm, 50 mL, IVPB No Longer Xavier [facility] sulfate Route: IVPB, Active 2011 Medical Drug form: Center INJ, ONCE, Dosing Weight 82.273, kg, Total dose=2 gm, Start date: 07/16/12 5:50:00, Duration: 1 doses or times, Stop date: 07/16/12 5:50:00 Coreg 12.5 mg, 1 PO No Longer Walker [facility] tab, Route: Active 2011 Medical PO, Drug Center form: TAB, Q12H, Dosing Weight 82.273, kg, Start date: 07/15/12 21:00:00, Stop date: 08/14/12 9:00:00 heparin 5,000 unit, 1 SUB-Q No Longer Valentin Reddy mL, Route: Active 2011 Medical SUB-Q, Drug Center form: INJ, Q12H, Dosing Weight 82.273, kg, Start date: 07/15/12 21:00:00, Duration: 30 day, Stop date: 08/14/12 9:00:00 magnesium 2 gm, 50 mL, IVPB No Longer Valentin [place] sulfate Route: IVPB, Active 2011 Medical Drug form: Center INJ, ONCE, Dosing Weight 82.273, kg, Total dose=2 gm, Start date: 07/15/12 19:04:00, Duration: 1 doses or times, Stop date: 07/15/12 19:04:00 nitroglycerin 0.4 mg, 1 SL No Longer Valentin Reddy 0.4 mg tab, Route: Active 2011 [facility] sublingual SL, Drug Center tablet form: [...] 12.5 gm, 25 IVP No Longer Valentin [place] Syringe mL, Route: Active 2011 Medical IVP, Drug Center Form: INJ, Dosing Weight 82.273, kg, PRN, PRN Blood Glucose Results, Start date: 07/15/12 18:15:00, Duration: 30 day, Stop date: 08/14/12 18:14:00 [place] 10/325 1 tab, Route: PO No Longer Valentin [facility] oral tablet PO, Drug Active 2011 Medical Form: TAB, Center Dosing Weight 82.273, kg, Q4H, PRN as needed for pain, Start date: 07/15/12 18:13:00, Duration: 30 day, Stop date: 08/14/12 18:12:00 acetaminophen 650 mg, 2 PO No Longer Valentin [facility] tab, Route: Active 2011 Medical PO, Drug Center form: TAB, Q4H, Dosing Weight 82.273, kg, PRN Pain/Fever, Start date: 07/15/12 18:09:00, Duration: 30 day, Stop date: 08/14/12 18:08:00 atorvastatin 80 mg, 1 tab, PO No Longer Winifred [facility] Route: PO, Active 2011 Medical Drug form: [place] TAB, QPM, Dosing Weight 88.182, kg, Start date: 07/15/12 17:00:00, Duration: 30 day, Stop date: 08/13/12 17:00:00 Lopressor 5 mg, 5 mL, IV No Longer Valentin Reddy Route: IV, Active 2011 Medical Drug form: [place] INJ, ONCE, Start date: 07/15/12 16:52:00, Stop date: 07/15/12 16:52:00 metoprolol 5 5 mg, Route: IVP No Longer Valentin Reddy mg/5 ml INJ IVP, Drug Active 2011 Medical form: INJ, Center Q2MIN, Dosing Weight 82.273, kg, PRN Other -See Comment, Start date: 07/15/12 16:41:00, Duration: 30 day, Stop date: 08/14/12 16:40:00 NS (Bolus) IV 500 mL, Rate: IV No Longer Valentin [facility] 500 mL 500 ml/hr, Active 2011 Medical Infuse over: Center 1 hr, Route: IV, kg, Total Volume: 500, Priority: STAT, Start date: 07/15/12 16:41:00, Duration: 1 doses or times, Stop date: 07/15/12 17:40:00, Bolus DoseBolus Dose Protonix 40 mg, 1 tab, PO No Longer Winifred [facility] Route: PO, Active 2011 Medical Drug form: [place] ECTAB, Before Dinner, Dosing Weight 88.182, kg, Start date: 07/15/12 16:30:00, Duration: 30 day, Stop date: 08/13/12 16:30:00 Lopressor 5 mg, 5 mL, IV No Longer Turon [facility] Route: IV, Active 2011 Medical Drug form: [place] INJ, ONCE, Start date: 07/15/12 16:26:00, Stop date: 07/15/12 16:26:00 [place] 10/325 1 tab, PO, PO On Hold [place] 07/15[facility] oral tablet Q4H, PRN, 90 2011 Medical tab, Pain Center Score 6-10, Substitution Allowed, Maintenance, TAB Protonix 40 mg 40 mg, 1 tab, PO On Hold [place] 07/15[facility] oral enteric PO, Before 2011 Medical coated tablet Dinner, 30 [place] tab, Substitution Allowed, ECTAB lisinopril 10 mg 10 mg, 1 tab, PO On Hold [place] 07/15[facility] oral tablet PO, Daily, 30 2011 Medical tab, Center Substitution Allowed, TAB insulin glargine 15 unit, 0.15 SUB-Q On Hold [place] 07/15[facility] 100 units/mL mL, SUB-Q, 2011 Medical subcutaneous Daily, 1 mL, [place] solution Substitution Allowed, SOLN heparin 5000 See [facility] units/mL Instructions, 2011 Medical injectable SUB-Q Q8H, 1 [place] solution syr, Substitution Allowed, SOLNSUB-Q Q8H clopidogrel 75 75 mg, 1 tab, PO On Hold [place] 07/15[facility] mg oral tablet PO, Daily, 30 2011 Medical tab, Center Substitution Allowed, TAB citalopram 10 mg 10 mg, 1 tab, PO On Hold [place] [facility] oral tablet PO, Daily, 30 2011 Medical tab, [place] Substitution Allowed, TAB Coreg 3.125 mg 3.125 mg, 1 PO On Hold [place] [facility] oral tablet tab, PO, 2011 Medical Q12H, 60 tab, [place] Substitution Allowed, TAB atorvastatin 80 80 mg, 1 tab, PO On Hold [place] [facility] mg oral tablet PO, QPM, 30 2011 Medical tab, Center Substitution Allowed, TAB aspirin 325 mg 325 mg, 1 PO On Hold [place] 07/15[facility] tablet tab, PO, 2011 Medical Daily, 30 [place] tab, Substitution Allowed, TAB senna 8.6 mg 8.6 mg, 1 PO No Longer [facility] oral tablet tab, Route: Active 2011 Medical PO, Drug Center Form: TAB, Dosing Weight 88.182, kg, QNoon, Start date: 07/15/12 12:00:00, Duration: 30 day, Stop date: 08/13/12 12:00:00 Dextrose 50% 25 gm, 50 mL, IVP No Longer Winifred [facility] Syringe Route: IVP, Active 2011 Medical Drug Form: Center INJ, Dosing Weight 88.182, kg, PRN, PRN Blood Glucose Results, Start date: 07/15/12 9:11:00, Duration: 30 day, Stop date: 08/14/12 9:10:00 Dextrose 50% 12.5 gm, 25 IVP No Longer Winifred [facility] Syringe mL, Route: Active 2011 Medical IVP, Drug Center Form: INJ, Dosing Weight 88.182, kg, PRN, PRN Blood Glucose Results, Start date: 07/15/12 9:10:00, Duration: 30 day, Stop date: 08/14/12 9:09:00 influenza virus 0.5 ml, IM No Longer SYSTEM OPID vaccine, Route: IM, Active 2011 [place] inactivated Drug Form: [facility] INJ, Start Medical date: [place] 07/15/12 9:00:00, Stop date: 07/15/12 9:00:00 lisinopril 10 mg, 1 tab, PO No Longer Winifred [facility] Route: PO, Active 2011 Medical Drug form: Center TAB, Daily, Dosing Weight 88.182, kg, Start date: 07/15/12 9:00:00, Duration: 30 day, Stop date: 08/13/12 9:00:00 insulin glargine 15 unit, 0.15 SUB-Q No Longer [facility] mL, Route: Active 2011 Medical SUB-Q, Drug Center form: INJ, Daily, Dosing Weight 88.182, kg, Start date: 07/15/12 9:00:00, Duration: 30 day, Stop date: 08/13/12 9:00:00 clopidogrel 75 mg, 1 tab, PO No Longer Winifred [facility] [place] Route: PO, Active 2011 Medical Drug form: Center TAB, Daily, Dosing Weight 88.182, kg, Start date: 07/15/12 9:00:00, Duration: 30 day, Stop date: 08/13/12 9:00:00 citalopram 10 mg, 1 tab, PO No Longer Winifred [place] Route: PO, Active 2011 Medical Drug form: Center TAB, Daily, Dosing Weight 88.182, kg, Start date: 07/15/12 9:00:00, Duration: 30 day, Stop date: 08/13/12 9:00:00 aspirin 325 mg 325 mg, 1 PO No Longer Winifred [place] tablet tab, Route: Active 2011 Medical PO, Drug Center form: TAB, Daily, Dosing Weight 88.182, kg, Start date: 07/15/12 9:00:00, Duration: 30 day, Stop date: 08/13/12 9:00:00 atorvastatin 10 10 mg, 1 tab, PO No Longer [place] mg oral tablet PO, Daily, 30 Active 2011 Medical tab, Center Substitution Allowed, TAB atenolol 50 mg 50 mg, 1 tab, PO No Longer [place] oral tablet PO, Daily, 30 Active 2011 Medical tab, Center Substitution Allowed glimepiride 4 mg Substitution No Longer [place] oral tablet Allowed Active 2011 [facility] hydrochlorothiaz 1 tab, PO, PO No Longer [place] juno-losartan 25 Daily, 30 Active 2011 Medical mg-100 mg oral tab, Center tablet Substitution Allowed, Maintenance, TAB aspirin 81 mg 81 mg, 1 tab, PO No Longer [place] tablet, chewable PO, Daily, Active 2011 Medical tab, Center Substitution Allowed, [place] amLODipine 5 mg 5 mg, 1 tab, PO No Longer [place] oral tablet PO, Daily, 30 Active 2011 Medical tab, Center Substitution Allowed, TAB lisinopril 30 mg Daily, No Longer [place] oral tablet Substitution Active 2011 Medical Allowed Center NovoLog Mix Substitution No Longer [place] 70/30 FlexPen Allowed Active 2011 [facility] heparin 5000 5,000 unit, 1 SUB-Q No Longer Winifred [place] units/mL mL, Route: Active 2011 Medical injectable SUB-Q, Drug Center solution form: INJ, Q8H, Dosing Weight 88.182, kg, Start date: 07/15/12 0:00:00, Duration: 30 day, Stop date: 08/13/12 16:00:00 Insulin regular 1 unit, 0.01 SUB-Q No Longer Winifred [facility] mL, Route: Active 2011 Medical SUB-Q, Drug Center form: SOLN, TID-Before Meals, Dosing Weight 82.273, kg, PRN Blood Glucose Results, Start date: 07/14/12 23:06:00, Duration: 30 day, Stop date: 08/13/12 23:05:00 docusate 100 mg, 1 PO No Longer Winifred [facility] cap, Route: Active 2011 Medical PO, Drug Center form: CAP, Q12H, Dosing Weight 88.182, kg, Start date: 07/14/12 21:00:00, Duration: 30 day, Stop date: 08/13/12 9:00:00 Coreg 3.125 mg, 1 PO No Longer Valentin [facility] tab, Route: Active 2011 Medical PO, Drug Center form: TAB, Q12H, Dosing Weight 88.182, kg, Start date: 07/14/12 21:00:00, Duration: 30 day, Stop date: 08/13/12 9:00:00 nitroglycerin 0.4 mg, 1 SL No Longer [facility] 0.4 mg tab, Route: Active 2011 Medical sublingual SL, Drug Center tablet form: TAB, Q5Min, Dosing Weight 88.182, kg, PRN Chest Pain, Start date: 07/14/12 17:50:00, Duration: 30 day, Stop date: 08/13/12 17:49:00 bisacodyl 10 mg, 1 [place] No Longer Winifred [facility] supp, Route: Active 2011 Medical [place], Drug Center form: SUPP, Daily, Dosing Weight 88.182, kg, PRN Constipation, Start date: 07/14/12 17:50:00, Duration: 30 day, Stop date: 08/13/12 17:49:00 acetaminophen 650 mg, 2 PO No Longer Winifred [facility] tab, Route: Active 2011 Medical PO, Drug Center form: TAB, Q6H, Dosing Weight 88.182, kg, PRN Pain, Start date: 07/14/12 17:49:00, Duration: 30 day, Stop date: 08/13/12 17:48:00 [place] 1 tab, Route: PO No Longer Winifred [place] oral tablet PO, Drug Active 2011 Medical Form: TAB, Center Dosing Weight 88.182, kg, Q4H, PRN Pain Score 6-10, Start date: 07/14/12 17:48:00, Duration: 30 day, Stop date: 08/13/12 17:47:00 clopidogrel 75 75 mg, 1 tab, [facility] Long[facility] [place] mg oral tablet PO, Daily, 30 Active 2011 Medical tab, Center Substitution Allowed, TAB Protonix 40 mg 40 mg, 1 tab, PO No Longer [facility] [place] oral enteric PO, Before 2011 Medical coated tablet Dinner, 30 Center tab, Substitution Allowed, ECTAB insulin regular 7 unit, 0.07 SUB-Q No Longer [facility] [place] human mL, SUB-Q, Active 2011 Medical recombinant 100 PRN, PRN, 1 Center units/mL mL, Abnormal injectable Lab Result, solution Substitution Allowed, SOLN insulin regular 5 unit, 0.05 SUB-Q No Longer [facility] human mL, SUB-Q, 2011 Medical recombinant 100 PRN, PRN, 1 Center units/mL mL, Abnormal injectable Lab Result, solution Substitution Allowed, SOLN insulin regular 3 unit, 0.03 SUB-Q No Longer [facility] [place] human mL, SUB-Q, Active 2011 Medical recombinant 100 PRN, PRN, 1 Center units/mL mL, Abnormal injectable Lab Result, solution Substitution Allowed, SOLN insulin glargine 15 unit, 0.15 SUB-Q [facility] Long[facility] [place] 100 units/mL mL, SUB-Q, Active 2011 Medical subcutaneous Daily, 1 mL, Center solution Substitution Allowed, SOLN heparin 5000 See No Longer [facility] [place] units/mL Instructions, Active 2011 Medical injectable 5000 SUB-Q Center solution Q8H, 1 vial, Substitution Allowed, [id number] SUB-Q Q8H Coreg 3.125 mg 3.125 mg, 1 PO No Longer [facility] [place] oral tablet tab, PO, Active 2011 Medical Q12H, 60 tab, Center Substitution Allowed, TAB lisinopril 10 mg 10 mg, 1 tab, PO No Longer [place] oral tablet PO, Daily, 30 2011 Medical tab, [place] Substitution Allowed, TAB citalopram 10 mg 10 mg, 1 tab, PO No Longer [place] oral tablet PO, Daily, 30 2011 Medical tab, [place] Substitution Allowed, TAB atorvastatin 80 80 mg, 1 tab, PO No Longer [place] mg oral tablet PO, QPM, 30 2011 Medical tab, [place] Substitution Allowed, TAB aspirin 325 mg 325 mg, 1 PO No Longer [place] tablet tab, PO, Active 2011 Medical Daily, 30 [place] tab, Substitution Allowed, TAB magnesium 2 gm, 50 mL, IVPB No Longer Napierkowski [place] sulfate Route: IVPB, 2011 Medical Drug form: [place] INJ, Q2H, Dosing Weight 88.182, kg, Start date: 07/14/12 14:00:00, Duration: 2 doses or times, Stop date: 07/14/12 16:00:00, For Mg=1.5 - 1.7 mg/dLFor Mg=1.5 - 1.7 mg/dL metoprolol 5 5 mg, 5 mL, IV No Longer Mike-Amanda [place] mg/5 ml INJ Route: IV, Active 2011 Medical Drug form: [place] INJ, ONCE, Dosing Weight 88.182, kg, Start date: 07/14/12 6:26:00, Stop date: 07/14/12 6:26:00 Protonix 40 mg, 1 tab, PO No Longer Larsen [place] Route: PO, Active 2011 Medical Drug form: [place] ECTAB, Before Dinner, Dosing Weight 88.182, kg, Start date: 07/13/12 16:30:00, Duration: 30 day, Stop date: 08/11/12 16:30:00 lisinopril 10 mg, 1 tab, PO No Longer Siddiqui [place] Route: PO, Active 2011 Medical Drug form: [place] TAB, Daily, Dosing Weight 88.182, kg, Start date: 07/13/12 9:00:00, Duration: 30 day, Stop date: 08/11/12 9:00:00 magnesium 2 gm, 50 mL, IVPB No Longer Mike-Amanda [place] sulfate Route: IVPB, Active 2011 Medical Drug form: Center INJ, ONCE, Dosing Weight 88.182, kg, Start date: 07/13/12 7:19:00, Duration: 1 doses or times, Stop date: 07/13/12 7:19:00, For Mg=1.8 - 2 mg/dLFor Mg=1.8 - 2 mg/dL calcium 1,000 mg, 10 IVPB No Longer Mike-Amanda [place] gluconate + mL, Route: Active 2011 Medical Sodium Chloride IVPB, ONCE, [place] 0.9% IV 50 mL Dosing Weight 88.182, [...] Drug form: Center INJ, ONCE, Dosing Weight 88.182, kg, Start [...] mg, 1 cap, PO No Longer Mike-Amanda [place] Route: PO, Active 2011 Medical Drug form: [place] CAP, TID, Dosing Weight 88.182, kg, PRN Itching, Start date: 07/12/12 11:50:00, Duration: 30 day, Stop date: 08/11/12 11:49:00 Coreg 3.125 mg, 1 PO No Longer Siddiqui [place] tab, Route: Active 2011 Medical PO, Drug Center form: TAB, Q12H, Dosing Weight 88.182, kg, Start date: 07/12/12 10:30:00, Duration: 30 day, Stop date: 08/11/12 6:00:00 Colace 50 mg 50 mg, 1 cap, PO No Longer Siddiqui [place] oral capsule Route: PO, Active 2011 Medical Drug form: [place] CAP, BID, Dosing Weight 88.182, kg, PRN Constipation, Start date: 07/12/12 9:31:00, Duration: 30 day, Stop date: 08/11/12 9:30:00 Sodium Chloride 250 mL, Rate: IV No Longer Siddiqui [place] 0.9% (Bolus) IV 250 ml/hr, Active 2011 Medical 250 mL Infuse over: [place] 1 hr, Route: IV, kg, Total Volume: 250, Bolus Dose, Priority: STAT, Start date: 07/12/12 9:28:00, Duration: 1 doses or times, Stop date: 07/12/12 10:27:00 calcium 2,000 mg, 20 IVPB No Longer Mike-Amanda [place] gluconate + mL, Route: Active 2011 Medical Sodium Chloride IVPB, ONCE, [place] 0.9% IV 80 mL Dosing Weight 88.182, kg, Start date: 07/12/12 7:18:00, Stop date: 07/12/12 7:18:00 Chloraseptic 1 spray, MUCOUS No Longer Larsen [place] 1.4% spray Route: MUCOUS MEM Active 2011 Medical MEM, Q4H, Center Drug form: SPRY PRN Sore Throat, Start date: 07/12/12 1:37:00, Stop date: 08/11/12 1:36:00 heparin 5000 5,000 unit, 1 SUB-Q No Longer Shayne [place] units/mL mL, Route: Active 2011 Medical injectable SUB-Q, Drug Center solution form: INJ, Q8H, Dosing Weight 88.182, kg, Start date: 07/11/12 16:00:00, Duration: 30 day, Stop date: 08/10/12 8:00:00 lactulose 10 gm, 15 ml, PO No Longer Mike-Amanda [facility] Route: PO, Active 2011 Medical Drug Form: [place] SYRP, Dosing Weight 88.182, kg, Daily, PRN Constipation, Start date: 07/11/12 12:02:00, Duration: 30 day, Stop date: 08/10/12 12:01:00 normal saline 250 mL, Rate: IV No Longer Mike-Amanda [facility] 0.9% IV 250 mL 250 ml/hr, Active 2011 Medical Infuse over: Center 1 hr, Route: IV, kg, Total Volume: 250, Start date: 07/11/12 11:59:00, Duration: 1 doses or times, Stop date: 07/11/12 12:58:00 normal saline 1,000 mL, IV No Longer Mike-Amanda [facility] 0.9% IV 1,000 mL Rate: 120 Active 2011 Medical ml/hr, Infuse Center over: 8.3 hr, Route: IV, kg, Total Volume: 1,000, Start date: 07/11/12 9:28:00, Stop date: 08/10/12 9:27:00 atorvastatin 80 mg, 1 tab, PO No Longer Solhpour [place] Route: PO, Active 2011 Medical Drug form: Center TAB, QPM, Dosing Weight 88.182, kg, Start date: 07/10/12 17:00:00, Duration: 30 day, Stop date: 08/08/12 17:00:00 Protonix 40 mg, Route: IVP No Longer Larsen [place] IVP, Drug Active 2011 Medical form: INJ, Center Before Dinner, Dosing Weight 88.182, kg, Patient is NPO, Start date: 07/10/12 16:30:00, Duration: 30 day, Stop date: 08/08/12 16:30:00 ondansetron 4 mg, 2 mL, IVP No Longer Cody [facility] Route: IVP, Active 2011 Medical Drug form: Center INJ, Q4H, Dosing Weight 88.182, kg, PRN Nausea & Vomiting, Start date: 07/10/12 13:21:00, Duration: 30 day, Stop date: 08/09/12 13:20:00 Integrilin 75 mg 75 mg, 100 IV No Longer Shayne [place] in 100 ml premix mL, Rate: Active 2011 Medical IV 75 mg Titrate, Center Dosing Weight 88.182, kg, Route: IV, Total Volume: 100 mL, Start date: 07/10/12 10:43:00, Duration: 2 day, Stop date: 07/12/12 10:42:00, Replace Every: 24 hr citalopram 10 mg, 1 tab, PO No Longer Mike-Amanda [facility] Route: PO, Active 2011 Medical Drug form: Center TAB, Daily, Dosing Weight 88.182, kg, Start date: 07/10/12 9:00:00, Duration: 30 day, Stop date: 08/08/12 9:00:00 aspirin 325 mg 325 mg, 1 PO No Longer Mike-Amanda [facility] tablet tab, Route: Active 2011 Medical PO, Drug Center form: TAB, Daily, Dosing Weight 88.182, kg, Start date: 07/10/12 9:00:00, Duration: 30 day, Stop date: 08/08/12 6:00:00 atenolol 100 mg 100 mg, 1 PO No Longer Siddiqui [facility] oral tablet tab, Route: Active 2011 Medical PO, Drug Center form: TAB, Daily, Dosing Weight 88.182, kg, Start date: 07/10/12 9:00:00, Duration: 30 day, Stop date: 08/08/12 9:00:00 insulin glargine 15 unit, 0.15 SUB-Q No Longer Mike-Amanda [facility] mL, Route: Active 2011 Medical SUB-Q, Drug Center form: INJ, Daily, Dosing Weight 88.182, kg, Start date: 07/10/12 9:00:00, Duration: 30 day, Stop date: 08/08/12 9:00:00 clopidogrel 75 mg, 1 tab, PO No Longer Leigha [place] Route: PO, Active 2011 Medical Drug form: [place] TAB, Daily, Dosing Weight 88.182, kg, Start date: 07/10/12 9:00:00, Duration: 30 day, Stop date: 08/08/12 6:00:00 lisinopril 10 mg, 1 tab, PO No Longer Mike-Amanda [facility] Route: PO, Active 2011 Medical Drug form: [place] TAB, Daily, Dosing Weight 88.182, kg, Start date: 07/10/12 9:00:00, Duration: 30 day, Stop date: 08/08/12 9:00:00 magnesium 2 gm, 50 mL, IVPB No Longer Mike-Amanda [place] sulfate Route: IVPB, Active 2011 Medical Drug form: [place] INJ, Q2H, Dosing Weight 88.182, kg, Start date: 07/10/12 8:00:00, Duration: 3 doses or times, Stop date: 07/10/12 12:00:00, For Mg=1.0 - 1.4 mg/dLFor Mg=1.0 - 1.4 mg/dL morphine Sulfate 2 mg, Route: IVP No Longer Solour Reddy IVP, ONCE, Active 2011 Medical Dosing Weight [place] 88.182, kg, Start date: 07/10/12 7:44:00, Stop date: 07/10/12 7:44:00 morphine Sulfate 2 mg, 0.5 mL, IVP No Longer Larsen [facility] Route: IVP, Active 2011 Medical Drug form: [place] INJ, Q3H, Dosing Weight 88.182, kg, PRN Pain, Start date: 07/10/12 7:33:00, Stop date: 08/09/12 7:32:00 niCARdipine 40 40 mg, 200 IV No Longer [facility] [facility] mg in NS 200 ml mL, Rate: Active 2011 Medical IV 40 mg Titrate, [place] Dosing Weight 88.182, kg, Route: IV, Total Volume: 200 mL, Duration: 30 day, Stop date: 08/09/12 7:14:00, Replace Every: 24 hr Cardene 40 mg in 40 mg, 200 IV No Longer Shayne [place] 200 ml IV 40 mL, Rate: Active 2011 Medical mg Titrate, [place] Dosing Weight 88.182, kg, Route: IV, Total Volume: 200 mL, Duration: 30 day, Stop date: 08/09/12 7:07:00, Replace Every: 24 hr Dextrose 50% 12.5 gm, 25 IVP No Longer Mike-Amanda [facility] Syringe mL, Route: Active 2011 Medical IVP, Drug Center Form: INJ, Dosing Weight 88.182, kg, PRN, PRN Blood Glucose Results, Start date: 07/10/12 6:32:00, Duration: 30 day, Stop date: 08/09/12 6:31:00 glucagon 1 mg, Route: IM No Longer Mike-Amanda [facility] IM, Drug Active 2011 Medical form: [place] PDR/INJ, PRN, Dosing Weight 88.182, kg, PRN Blood Glucose Results, Start date: 07/10/12 6:32:00, Duration: 30 day, Stop date: 08/09/12 6:31:00 amLODipine 5 mg, 1 tab, PO No Longer Siddiqui [facility] Route: PO, Active 2011 Medical Drug form: [place] TAB, Daily, Dosing Weight 88.182, kg, Start date: 07/10/12 6:14:00, Duration: 30 day, Stop date: 08/08/12 9:00:00 lisinopril 10 mg, 1 tab, PO No Longer Gibson [facility] Route: PO, Active 2011 Medical Drug form: [place] TAB, ONCE, Dosing Weight 88.182, kg, Start date: 07/10/12 4:10:00, Stop date: 07/10/12 4:10:00 Procardia XL 60 mg, 1 tab, PO No Longer Mike-Amanda [facility] Route: PO, Active 2011 Medical Drug form: [place] ERTAB, ONCE, Dosing Weight 88.182, kg, Start date: 07/10/12 4:02:00, Stop date: 07/10/12 4:02:00 morphine Sulfate 2 mg, 0.5 mL, IVP No Longer Mike-Amanda [facility] Route: IVP, Active 2011 Medical Drug form: [place] INJ, ONCE, Dosing Weight 88.182, kg, Start date: 07/10/12 2:35:00, Stop date: 07/10/12 2:35:00 metoprolol 25 mg, 1 tab, PO No Longer Mike-Amanda [facility] tartrate Route: PO, Active 2011 Medical Drug form: [place] TAB, Q6H, Dosing Weight 88.182, kg, Start date: 07/10/12 0:00:00, Duration: 30 day, Stop date: 08/08/12 18:00:00 morphine Sulfate 1 mg, Route: IVP No Longer Gibson [facility] IVP, ONCE, Active 2011 Medical Dosing Weight [place] 88.182, kg, Start date: 07/09/12 23:59:00, Stop date: 07/09/12 23:59:00 atenolol 50 mg 50 mg, 1 tab, PO No Longer [facility] oral tablet Route: PO, Active 2011 Medical Drug form: [place] TAB, ONCE, Dosing Weight 88.182, kg, Start date: 07/09/12 21:03:00, Stop date: 07/09/12 21:03:00 lisinopril 10 mg, 1 tab, PO No Longer Mike-Amanda [facility] Route: PO, Active 2011 Medical Drug form: [place] TAB, ONCE, Dosing Weight 88.182, kg, Start date: 07/09/12 21:02:00, Stop date: 07/09/12 21:02:00 Saline Flush 5 ml, Route: IVP No Longer Leigha [facility] 0.9% IVP, Drug Active 2011 Medical Form: INJ, [place] Dosing Weight 88.182, kg, Q12H, Start date: 07/09/12 21:00:00, Duration: 30 day, Stop date: 08/08/12 9:00:00 famotidine 20 mg, 1 tab, PO No Longer Cody [facility] Route: PO, Active 2011 Medical Drug form: [place] TAB, Q12H, Dosing Weight 88.182, kg, Start date: 07/09/12 21:00:00, Duration: 30 day, Stop date: 08/08/12 9:00:00 nitroglycerin SL 0.4 mg, 1 SL No Longer Mike-Amanda [facility] Tab tab, Route: Active 2011 Medical SL, Drug Center form: TAB, Q5Min, Dosing Weight 88.182, kg, PRN Chest Pain, Start date: 07/09/12 20:20:00, Duration: 3 doses or times, Stop date: Limited # of times Saline Flush 5 ml, Route: IVP No Longer Leigha [facility] 0.9% IVP, Drug Active 2011 Medical Form: INJ, Center Dosing Weight 88.182, kg, PRN, PRN Line Flush, Start date: 07/09/12 19:20:00, Duration: 30 day, Stop date: 08/08/12 19:19:00 nitroglycerin SL 0.4 mg, 1 SL No Longer Leigha [facility] Tab tab, Route: Active 2011 Medical SL, Drug Center form: TAB, Q5Min, Dosing Weight 88.182, kg, PRN Chest Pain, Start date: 07/09/12 19:20:00, Duration: 3 doses or times, Stop date: 08/09/12 0:00:00 aspirin 325 mg 325 mg, 4.01 PO No Longer Leigha [facility] tablet tab, Route: Active 2011 Medical PO, Drug Center form: [place], ONCE, Dosing Weight 88.182, kg, Start date: 07/09/12 19:20:00, Stop date: 07/09/12 19:20:00 acetaminophen 650 mg, 20.3 PO No Longer Fazakerly [facility] mL, Route: Active 2011 Medical PO, Drug Center form: LIQ, Q8H, Dosing Weight 88.182, kg, PRN Pain/Fever, Start date: 07/09/12 16:54:00, Duration: 30 day, Stop date: 08/08/12 16:53:00 labetalol 10 mg, 2 mL, IVP No Longer La [facility] Route: IVP, Active 2011 Medical Drug form: Center INJ, Q15Min, Dosing Weight 88.182, kg, PRN Hypertension, Start date: 07/09/12 16:21:00, Duration: 3 doses or times, Stop date: Limited # of times Dextrose 50% 25 gm, 50 mL, IVP No Longer Dawson [facility] Syringe Route: IVP, Active 2011 Medical Drug Form: Center INJ, Dosing Weight 88.182, kg, PRN, PRN Abnormal Lab Result, Start date: 07/08/12 21:55:00, Duration: 30 day, Stop date: 08/07/12 21:54:00 insulin regular 3 unit, 0.03 SUB-Q No Longer Dawson [facility] human mL, Route: Active 2011 Medical recombinant 100 SUB-Q, Drug Center units/mL form: SOLN, injectable PRN, Dosing solution Weight 88.182, kg, PRN Abnormal Lab Result, Start date: 07/08/12 21:55:00, Duration: 30 day, Stop date: 08/07/12 21:54:00 acetaminophen-ox 1 tab, Route: PO No Longer Mike-Amanda [facility] ycodone 325 mg-5 PO, Drug Active 2011 Medical mg oral tablet Form: TAB, Center Q4H, PRN Pain Score 6-10, Start date: 07/08/12 21:03:00, Stop date: 08/07/12 21:02:00 Saline Flush 5 ml, Route: IVP No Longer [facility] 07/[facility] 0.9% IVP, Drug Active 2011 Medical Form: INJ, Center Dosing Weight 88.182, kg, Q12H, Start date: 07/07/12 21:00:00, Duration: 30 day, Stop date: 08/06/12 9:00:00 senna 8.6 mg, 1 PO No Longer Gloria 07/08[facility] tab, Route: Active 2011 Medical PO, Drug Center Form: TAB, Dosing Weight 88.182, kg, Q12H, Start date: 07/07/12 21:00:00, Duration: 30 day, Stop date: 08/06/12 9:00:00 docusate sodium 100 mg, 1 PO No Longer Gloria [facility] 100 mg oral cap, Route: Active 2011 Medical capsule PO, Drug Center form: CAP, Q12H, Dosing Weight 88.182, kg, Start date: 07/07/12 21:00:00, Duration: 30 day, Stop date: 08/06/12 9:00:00 cefazolin (SCIP) 1 gm, Route: IVPB No Longer Gloria [facility] IVPB, Drug Active 2011 Medical form: Center PDR/INJ, ABXQ8H, Dosing Weight 88.182, kg, Start date: 07/07/12 20:30:00, Duration: 3 doses or times, Stop date: 07/08/12 12:30:00 Percocet 10/325 2 tab, Route: PO No Longer Dawson [facility] oral tablet PO, Drug Active 2011 Medical Form: TAB, Center Dosing Weight 88.182, kg, Q4H, PRN Pain, Start date: 07/07/12 20:03:00, Duration: 30 day, Stop date: 08/06/12 20:02:00 atorvastatin 10 10 mg, 1 tab, PO No Longer [facility] mg oral tablet PO, Daily, 30 Active 2011 Medical tab, Center Substitution Allowed, TAB amLODipine 5 mg, PO, PO No Longer Mike-Amanda [facility] Daily, Active 2011 Medical Substitution Center Allowed cefazolin (SCIP) 1 gm, Route: IVPB No Longer Gloria [facility] IVPB, Drug Active 2011 Medical form: [place] PDR/INJ, ABXQ8H, Dosing Weight 88.182, kg, Start date: 07/07/12 16:00:00, Duration: 3 doses or times, Stop date: 07/08/12 8:00:00 ondansetron 4 mg, 2 mL, IVP No Longer Kohanof [facility] Route: IVP, Active 2011 Medical Drug form: [place] INJ, ONCE, Dosing Weight 88.182, kg, PRN Nausea & Vomiting, Start date: 07/07/12 13:36:00 labetalol 5 mg, Route: IVP No Longer Kohanof [facility] IVP, Q5Min, Active 2011 Medical Dosing Weight Center 88.182, kg, PRN Elevated BP, Start date: 07/07/12 13:36:00, Duration: 5 doses or times, Stop date: Limited # of times hydrALAZINE 5 mg, 0.25 IVP No Longer [facility] mL, Route: Active 2011 Medical IVP, Drug Center form: INJ, Q5Min, Dosing Weight 88.182, kg, PRN Elevated BP, Start date: 07/07/12 13:36:00, Duration: 4 doses or times, Stop date: 07/08/12 0:00:00 flumazenil 0.2 mg, 2 mL, IVP No Longer [facility] Route: IVP, Active 2011 Medical Drug form: Center INJ, PRN, Dosing Weight 88.182, kg, PRN Benzodiazepin e Reversal, Initial dose, Start date: 07/07/12 13:36:00, Duration: 30 day, Stop date: 08/06/12 13:35:00 naloxone 0.04 mg, 0.1 IVP No Longer [facility] mL, Route: Active 2011 [facility] IVP, Drug Center form: INJ, Q2MIN, Dosing Weight 88.182, kg, PRN Narcotic Reversal, Start date: 07/07/12 13:36:00, Duration: 8 doses or times, Stop date: 07/08/12 0:00:00 hydromorphone 0.5 mg, IVP No Longer [facility] Route: IVP, Active 2011 [facility] Q5Min, Dosing Center Weight 88.182, kg, PRN Pain Score 4-6, Start date: 07/07/12 13:36:00, Duration: 5 doses or times, Stop date: Limited # of times Saline Flush 5 ml, Route: IVP No Longer Gloria [place] 0.9% IVP, Drug Active 2011 Medical Form: INJ, Center Dosing Weight 88.182, kg, PRN, PRN Line Flush, Start date: 07/07/12 13:30:00, Duration: 30 day, Stop date: 08/06/12 13:29:00 ondansetron 4 mg, 2 mL, IVP No Longer [place] Route: IVP, Active 2011 Medical Drug form: Center INJ, Q8H, Dosing Weight 88.182, kg, PRN Nausea & Vomiting, Start date: 07/07/12 13:30:00, Duration: 30 day, Stop date: 08/06/12 13:29:00 tramadol 50 mg, 1 tab, PO No Longer Fazakerly [facility] Route: PO, Active 2011 Medical Drug form: Center TAB, Q4H, Dosing Weight 88.182, kg, PRN Pain Score 1-3, Start date: 07/07/12 13:30:00, Duration: 30 day, Stop date: 08/06/12 13:29:00 morphine Sulfate 2 mg, 0.5 mL, IVP No Longer Fazakerly [facility] Route: IVP, Active 2011 Medical Drug form: Center INJ, Q1H, Dosing Weight 88.182, kg, PRN Pain Score 7-10, Start date: 07/07/12 13:30:00, Duration: 30 day, Stop date: 08/06/12 13:29:00 bisacodyl 10 mg, 1 [place] No Longer Gloria [place] supp, Route: Active 2011 Medical [place], Drug Center form: SUPP, Daily, Dosing Weight 88.182, kg, PRN Constipation, Start date: 07/07/12 13:30:00, Duration: 30 day, Stop date: 08/06/12 13:29:00 acetaminophen-hy 2 tab, Route: PO No Longer Napierkowski [place] drocodone 325 PO, Drug Active 2011 Medical mg-10 mg oral Form: TAB, Center tablet Dosing Weight 88.182, kg, Q4H, PRN Pain Score 7-10, Start date: 07/07/12 13:30:00, Duration: 30 day, Stop date: 08/06/12 13:29:00 acetaminophen 650 mg, 20.3 PO No Longer Fazakerly [facility] mL, Route: Active 2011 Medical PO, Drug Center form: LIQ, Q4H, Dosing Weight 88.182, kg, PRN Pain/Fever, Start date: 07/07/12 13:30:00, Duration: 30 day, Stop date: 08/06/12 13:29:00 Sodium Chloride 1,000 mL, IV No Longer Fazakerly [place] 0.9% IV 1,000 mL Rate: 50 Active 2011 Medical ml/hr, Infuse Center over: 20 hr, Route: IV, kg, Total Volume: 1,000, Start date: 07/07/12 13:30:00, Duration: 30 day, Stop date: 08/06/12 13:29:00 cefazolin 2 gm, Route: IVPB No Longer Kohanof [facility] IVPB, ONCE, Active 2011 Medical Dosing Weight Center 88.182, kg, Start date: 07/07/12 12:23:00, Duration: 1 doses or times, Stop date: 07/07/12 12:23:00 cefazolin 1 gm, Route: IVPB No Longer Kohanof [facility] IVPB, ONCE, Active 2011 Medical Dosing Weight Center 88.182, kg, Start date: 07/07/12 8:26:00, Duration: 1 doses or times, Stop date: 07/07/12 8:26:00 cefazolin 1 gm, Route: IVPB No Longer Morgan [place] IVPB, Drug Active 2011 Medical form: Center PDR/INJ, ONCALL, Start date: 07/07/12 7:00:00, Duration: 1 day, Stop date: 07/08/12 6:59:00 Celebrex 200 mg 400 mg, 2 PO No Longer [place] oral capsule cap, PO, Active 2011 Medical Daily, 30 [place] cap, Substitution Allowed, CAP gabapentin 100 200 mg, 2 PO No Longer [place] mg oral capsule cap, PO, TID, Active 2011 Medical 240 cap, Center Substitution Allowed atenolol 100 mg 100 mg, 1 PO No Longer Mike-Amanda [place] oral tablet tab, PO, Active 2011 Medical Daily, 30 Center tab, Substitution Allowed citalopram 10 mg 10 mg, 1 tab, PO No Longer Mike-Amanda [facility] oral tablet PO, Daily, 30 2011 Medical tab, Center Substitution Allowed, TAB glimepiride 4 mg 4 mg, 1 tab, PO No Longer [place] oral tablet PO, BID, 30 2011 Medical tab, Center Substitution Allowed, TAB hydrochlorothiaz 1 tab, PO, PO No Longer [place] juno-losartan 25 Daily, 30 2011 Medical mg-100 mg oral tab, Center tablet Substitution Allowed, Maintenance, TAB lisinopril 30 mg 30 mg, 1 tab, PO No Longer Mike-Amanda [facility] oral tablet PO, Daily, 30 Active 2011 Medical tab, Center Substitution Allowed, TAB aspirin 81 mg 81 mg, 1 tab, PO No Longer [facility] tablet, enteric PO, Daily, 0 Active 2011 Medical coated tab, Center Substitution Allowed, ECTAB NovoLog Mix Substitution No Longer [facility] 70/30 Allowed Active 2011 [facility] Allergies, Adverse Reactions, Alerts Substance Category Reaction Severity Reaction Status Date Comments Source type Reported HYDROcodone Assertion Drug Active [facility] -Pseudoephe allergy Medical drine [facility] Center statins Assertion Drug Active [facility] Immunizations Immunization Date Site Status Last Updated Comments Source Given pneumococcal Right completed [facility] OPID 23-valent 8 deltoid [place], vaccine [facility] influenza virus Left completed Whitney OPID vaccine, 8 deltoid [place],[facility] pneumococcal Not Given Yennifer OPID 23-valent 2 [place], vaccine [facility] influenza virus Left completed Derrick [facility], [facility] influenza virus completed [facility] vaccine, 2 [place],[facility] Results Order Name Results Value Reference Date Interpretation Comments Source Range PET CT PET CT Tumor EXAM: [place] PET CT Skull Base to Mid Thigh 07[facility] Tumor imaging-skul - [place] imaging-u -[facility] This report was dictated by a Glue Machine Operator/Fellow. I have personally reviewed the images as ll-midthigh well as the Resident's interpretation and agree with the findings. 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 TECHNIQUE: After intravenous administration of 14.54 mCi of F-18 FDG, approximately one hour delayed PET/non-contrast CT scan from the base of the skull to the upper thighs level was obtained. FINDINGS: PET: Lymph Nodes: Numerous enlarged lymph nodes are seen that are relatively stable in size but demonstrate interval decrease in intensity of the uptake as described below : * Mildly FDG avid right axillary lymph node with max SUV of 2.0 (series 3 image 91), previously 2.9. * Largest left axillary lymph node measuring about 2.9 cm (series 3 image 87) with maximum SUV of 2.0, previously measuring 2.9. * Left retrocrural lymph node with max SUV of 3.0, previously measuring 3.7. * Mildly FDG avid conglomerate of large retroperitoneal lymph node measuring about 13.1 x 9.5 cm (series 3 image 162) with maximum SUV of 3.9, previously 4.0. * Left common iliac lymph node, anterior in location with max SUV of 3.1, previously 5.1 and posterior one with Max SUV of 5.3, previously 4.1. * Left external iliac lymph node with max SUV of 3.3, previously 5.2. * Non-FDG avid scattered enlarged lymph nodes are also seen in the bilateral posterior cervical region and mediastinum. Other Organs: No abnormal tracer uptake is seen in the other organs. Bones: No focal abnormal tracer uptake in the bones to suggest osseous involvement. The remainder of tracer distribution and metabolism throughout the body is physiologic. CT: The non-contrast CT part of the study demonstrate implantable cardiac defibrillator in the left chest wall with intracardiac leads in situ. Prosthetic aortic valve is noted. Metallic fusion device is se en in the lower lumbar spine with streak artifacts. Mosaic perfusion is seen in the bilateral chest likely due to hypoventilation. Multiple sigmoid diverticula are seen. Extensive vascular calcification is noted. Small fat-containing umbilical hernia is seen. The remaining major visualized organs show no evidence of additional metastatic sites including the bones. IMPRESSION: 1. Redemonstration of numerous enlarged lymph nodes in the bilateral axilla, left retrocrural region, para-aortic retroperitoneal and bilateral iliac regions with interval decrease in the intensity of the tracer uptake suggestive of favorable response to therapy. Deauville score of 3. 2. Posterior left common iliac lymph node demonstrates mild increased uptake compared to prior, which could be related to inflammation. SPECIAL Hgb A1C 5.8 % <=5.6 % 05/01 [facility] CHEMISTRY /[address] [place] [address] Chest 1view Chest 1view EXAM: XR CHEST 1 VIEW 05/01 - [facility] DX DX /2017 - [facility] DATE: 05/01/2018 9:09 AM CDT Read by: [...] eGFR of 60-89 may be normal in [facility] mL/min/1. some populations, particularly the elderly, for whom the CKD-EPI formula has not been extensively validated. Use of the eGFR is not recommended in the following populations: [address] Individuals with unstable creatinine concentrations, including [...] Lvl 96 meq/L 95 - 109 05/[address] CHEM PANEL CO2 29 meq/L 24 - 32 05/[address] CHEM PANEL Sodium Lvl 136 meq/L 135 - 145 05/[address] CHEM PANEL Potassium 3.7 meq/L 3.5 - 5.1 05/01 [facility] /[address] [place] [address] CHEM PANEL Creatinine 1.02 mg/dL 0.50 - 05/01 [facility] 1.40 [facility] CHEM PANEL BUN 56 mg/dL 7 - 22 05/[address] CHEM PANEL Glucose Lvl 209 mg/dL 70 - 99 05/[address] CHEM PANEL Calcium Lvl 9.8 mg/dL 8.5 - 10.5 05/[address] CHEM PANEL AGAP 14.7 meq/L 10.0 - 05/01 20.0 [facility] CHEM PANEL Phosphorus 2.7 mg/dL 2.5 - 4.5 05/[address] CHEM PANEL Magnesium 1.8 mg/dL 1.8 - 2.4 05/01 [facility] Lvl [address] [place] [address] HEMATOLOGY Basophils 0.4 % 0.0 - 1.0 05/[address] HEMATOLOGY Segs-Bands # 0.7 K/CMM 1.5 - 8.1 05/[address] HEMATOLOGY Smudge Moderate None Seen 05/01 [facility] [address] [place] [address] *ABN* [place] (05/01/18 4:09 AM) HEMATOLOGY RBC Morph Normal 05/01 [facility] [address] [place] [address] (05/01/18 4:09 AM) [place] HEMATOLOGY Eosinophils 0.2 % 0.0 - 4.0 05/[address] HEMATOLOGY Plt Morph Normal 05/01 [facility] [address] [place] [address] (05/01/18 4:09 AM) [place] HEMATOLOGY Segs 6.2 % 45.0 - 05/01 [facility] 75.0 [facility] HEMATOLOGY Lymphocytes 10.6 K/CMM 1.0 - 5.5 05/01 [facility] HEMATOLOGY Monocytes # 0.1 K/CMM 0.0 - 0.8 05/[address] HEMATOLOGY Lymphocytes 92.7 % 20.0 - 07 [facility] 40.0 [facility] HEMATOLOGY Monocytes 0.5 % 2.0 - 12.0 05/[address] HEMATOLOGY Platelet 71 K/CMM 133 - 450 05/[address] HEMATOLOGY MCHC 34.6 g/dL 32.0 - 07 [place] 36.0 [facility] HEMATOLOGY RDW 18.0 % 11.5 - 07 [facility] 14.5 [facility] HEMATOLOGY WBC 11.5 K/CMM 3.7 - 10.4 05/01 [facility] HEMATOLOGY RBC 2.83 M/CMM 4.20 - 05/01 [facility] 5.40 [facility] HEMATOLOGY Hgb 9.6 g/dL 12.0 - 05/01 [facility] 16.0 [facility] HEMATOLOGY Hct 27.7 % 36.0 - 05/01 [facility] 48.0 [facility] HEMATOLOGY MPV 9.5 fL 7.4 - 10.4 05/01 [facility] HEMATOLOGY MCV 97.7 fL 80.0 - 05/01 [facility] 98.0 [facility] HEMATOLOGY MCH 33.8 pg 27.0 - 05/01 [facility] 31.0 [facility] CHEM PANEL eGFR 49 04/30 Result Comment: The eGFR is calculated using the CKD-EPI formula. In most young, healthy individuals the eGFR will be >90 mL/ min/1.73m2. The eGFR declines with age. An eGFR of 60-89 may be normal in [facility] mL/min/1. some populations, particularly the elderly, for whom the CKD-EPI formula has not been extensively validated. Use of the eGFR is not recommended in the following populations: [address] Individuals with unstable creatinine concentrations, including [...] Lvl 96 meq/L 95 - 109 04/30 [facility] CHEM PANEL CO2 30 meq/L 24 - 32 04/30 [facility] CHEM PANEL Glucose Lvl 197 mg/dL 70 - 99 04/30 [facility] CHEM PANEL Potassium 4.2 meq/L 3.5 - 5.1 04/30 [facility] CHEM PANEL Sodium Lvl 136 meq/L 135 - 145 04/30 2017 [facility] CHEM PANEL BUN 56 mg/dL 7 - 22 04/[address] CHEM PANEL Creatinine 1.07 mg/dL 0.50 - 04/30 [facility] Lvl 1.40 [facility] CHEM PANEL Calcium Lvl 9.7 mg/dL 8.5 - 10.[address] CHEM PANEL AGAP 14.2 meq/L 10.0 - 04/30 [facility] 20.0 [facility] CHEM PANEL Magnesium 1.9 mg/dL 1.8 - 2.4 04/30 [facility] Lvl [address] CHEM PANEL Phosphorus 2.4 mg/dL 2.5 - 4.5 04/[address] HEMATOLOGY Smudge Moderate None Seen 04/30 [facility] [address] [place], [place] [address]ABN* [place] (04/30/18 4:19 AM) HEMATOLOGY Lymphocytes 12.0 K/CMM 1.0 - 5.5 04/[address] HEMATOLOGY Basophils 0.5 % 0.0 - 1.0 04/[address] HEMATOLOGY Eosinophils 0.5 % 0.0 - 4.0 04/[address] HEMATOLOGY Segs-Bands # 1.0 K/CMM 1.5 - 8.1 04/[address] HEMATOLOGY Eosinophils 0.1 K/CMM 0.0 - 0.5 04/[address] HEMATOLOGY Monocytes # 0.1 K/CMM 0.0 - 0.8 04/[address] HEMATOLOGY Basophils # 0.1 K/CMM 0.0 - 0.2 04/[address] HEMATOLOGY RBC Morph Normal 04/[address] (04/30/18 4:19 AM) [place] HEMATOLOGY Segs 7.8 % 45.0 - 04/30 [facility] 75.0 [facility] HEMATOLOGY Monocytes 1.1 % 2.0 - 12.0 04/[address] HEMATOLOGY Lymphocytes 90.1 % 20.0 - 07 [facility] 40.0 [facility] HEMATOLOGY Plt Morph Normal 04/[address] (04/30/18 4:19 AM) [place] HEMATOLOGY Platelet 66 K/CMM 133 - 450 04/[address] HEMATOLOGY RDW 18.1 % 11.5 - 07 [facility] 14. [facility] HEMATOLOGY MPV 9.4 fL 7.4 - 10.4 04/[address] HEMATOLOGY WBC 13.3 K/CMM 3.7 - 10.4 04/30 [facility] HEMATOLOGY Hgb 9.7 g/dL 12.0 - 04/30 [place] 16.0 [facility] HEMATOLOGY RBC 2.96 M/CMM 4.20 - 04/30 5.40 [facility] HEMATOLOGY Hct 28.7 % 36.0 - 04/30 [place] 48.0 /2017 [facility] HEMATOLOGY MCV 97.1 fL 80.0 - 04/30 98.0 [facility] HEMATOLOGY MCH 32.7 pg 27.0 - 04/30 [place] 31.0 /2017 [facility] HEMATOLOGY MCHC 33.7 g/dL 32.0 - 04/30 [place] 36.0 [facility] BLOOD BANK ABO/Rh O NEG 04/29 [facility] BLOOD BANK Antibody Negative 04/29 [facility] RESULTS Scr [facility] (04/29/18 10:19 AM) [place] BLOOD BANK RBC product Product available 04/29 [facility] (04/29/18 9:21 AM) [place] CHEM PANEL eGFR 48 04/29 Result Comment: The eGFR is calculated using the CKD-EPI formula. In most young, healthy individuals the eGFR will be >90 mL/ min/1.73m2. The eGFR declines with age. An eGFR of 60-89 may be normal in [facility] mL/min/1. some populations, particularly the elderly, for whom the CKD-EPI formula has not been extensively validated. Use of the eGFR is not recommended in the following populations: [address] Individuals with unstable creatinine concentrations, including [...] Lvl 9.8 mg/dL 8.5 - 10.5 04/29 [facility] CHEM PANEL BUN 57 mg/dL 7 - 22 04/29 [facility] CHEM PANEL Sodium Lvl 138 meq/L 135 - 145 04/29 [facility] CHEM PANEL Creatinine 1.09 mg/dL 0.50 - 04/29 [facility] Lvl 1.40 /[address] [place] [address] CHEM PANEL Glucose Lvl 145 mg/dL 70 - 99 04/[address] CHEM PANEL CO2 31 meq/L 24 - 32 04/[address] CHEM PANEL Chloride Lvl 95 meq/L 95 - 109 04/[address] CHEM PANEL Potassium 3.7 meq/L 3.5 - 5.1 04/[address] CHEM PANEL AGAP 15.7 meq/L 10.0 - 04/29 [facility] 20.0 [facility] CHEM PANEL Phosphorus 3.0 mg/dL 2.5 - 4.5 04/[address] CHEM PANEL Magnesium 1.9 mg/dL 1.8 - 2.4 04/[address] HEMATOLOGY Macrocyte 1+ None Seen 04/29 [facility] [address] [place] [address] *ABN* Center (04/29/18 1:53 AM) HEMATOLOGY Smudge See Note 1 None Seen 04/29 [facility] Comment: Medical (04/29/18 1:53 AM) [facility] HEMATOLOGY Lymphocytes 8.5 K/CMM 1.0 - 5.5 04/[address] HEMATOLOGY Segs-Bands # 0.7 K/CMM 1.5 - 8.1 04/[address] HEMATOLOGY Eosinophils 0.2 K/CMM 0.0 - 0.5 04/[address] HEMATOLOGY Monocytes # 0.0 K/CMM 0.0 - 0.8 04/[address] HEMATOLOGY Plt Morph Normal 04/29 [facility] [address] [place] [address] (04/29/18 1:53 AM) [place] HEMATOLOGY Atypical 0.0 % <=0.0 % 04/29 [facility] [address] HEMATOLOGY Eosinophils 2.0 % 0.0 - 4.0 04/[address] HEMATOLOGY Monocytes 0.0 % 2.0 - 12.0 04/[address] HEMATOLOGY Blasts 8.0 % <=0.0 % 04/[address] HEMATOLOGY Bands 1.0 % 0.0 - 11.0 04/[address] HEMATOLOGY Segs 6.0 % 45.0 - 04/29 [facility] 75.0 [facility] HEMATOLOGY Lymphocytes 83.0 % 20.0 - 07 [facility] 40.0 [facility] HEMATOLOGY MCHC 34.6 g/dL 32.0 - 04/29 [facility] 36.0 [facility] HEMATOLOGY MCV 101.0 fL 80.0 - 04/29 [facility] 98.0 /2017 [facility] HEMATOLOGY Hct 20.8 % 36.0 - 04/29 [facility] 48.0 /2017 [facility] HEMATOLOGY MCH 35.0 pg 27.0 - 04/29 [facility] 31.0 [facility] HEMATOLOGY RDW 17.2 % 11.5 - 07 [facility] 14.5 [facility] HEMATOLOGY MPV 9.8 fL 7.4 - 10.4 04/[address] HEMATOLOGY Platelet 64 K/CMM 133 - 450 04/[address] HEMATOLOGY Hgb 7.2 g/dL 12.0 - 04/29 [facility] 16.0 [facility] HEMATOLOGY WBC 10.2 K/CMM 3.7 - 10.4 04/[address] HEMATOLOGY RBC 2.06 M/CMM 4.20 - 04/29 [facility] 5.40 [facility] CHEM PANEL Total 6.8 g/dL 6.4 - 8.4 04/28 [facility] Protein [address] [place] [address] CHEM PANEL Albumin Lvl 2.7 g/dL 3.5 - 5.0 04/[address] CHEM PANEL Bili Total 0.5 mg/dL 0.2 - 1.3 04/[address] CHEM PANEL Alk Phos 71 unit/L 39 - 136 04/[address] CHEM PANEL AST 16 unit/L 0 - 37 04/[address] CHEM PANEL ALT 11 unit/L 0 - 65 04/[address] CHEM PANEL A/G Ratio 0.7 0.7 - 1.6 04/[address] CHEM PANEL Globulin 4.1 g/dL 2.7 - 4.2 04/[address] CHEM PANEL B/C Ratio 46 6 - 25 04/[address] HEMATOLOGY Eosinophils 0.3 K/CMM 0.0 - 0.5 04/28 [facility] # /2017 [facility] HEMATOLOGY Bands 1.0 % 0.0 - 11.0 04/[address] HEMATOLOGY Blasts 1.0 % <=0.0 % 04/[address] HEMATOLOGY Anisocyte 1+ None Seen 04/[address] (04/28/18 2:32 AM) HEMATOLOGY Atypical 0.0 % <=0.0 % 04/[address] HEMATOLOGY Macrocyte 1+ None Seen 04/[address]* [place] (04/28/18 2:32 AM) CHEM PANEL B/C Ratio 41 6 - 25 04/[address] CHEM PANEL Globulin 4.2 g/dL 2.7 - 4.2 04/[address] CHEM PANEL A/G Ratio 0.7 0.7 - 1.6 04/[address] CHEM PANEL Bili Total 0.5 mg/dL 0.2 - 1.3 04/[address] CHEM PANEL Albumin Lvl 2.9 g/dL 3.5 - 5.0 04/[address] CHEM PANEL Total 7.1 g/dL 6.4 - 8.4 04/[address] CHEM PANEL Alk Phos 79 unit/L 39 - 136 04/[address] CHEM PANEL ALT 13 unit/L 0 - 65 04/[address] CHEM PANEL AST 17 unit/L 0 - 37 04/[address] HEMATOLOGY Macrocyte 1+ None Seen 04/[address] (04/27/18 3:21 AM) HEMATOLOGY Atypical 2.0 % <=0.0 % 04/[address] HEMATOLOGY Blasts 1.0 % <=0.0 % 04/[address] HEMATOLOGY Anisocyte 1+ None Seen 04/[address] (04/27/18 3:21 AM) HEMATOLOGY Bands 0.0 % 0.0 - 11.0 04/[address] ANEMIA Vitamin B12 831 pg/mL 254 - 1320 04/27 [facility] [address] [place] [address] ANEMIA Iron 53 ug/dl 30 - 160 04/[address] ANEMIA % Satur Fe 25 % 12 - 57 04/[address] ANEMIA UIBC 158 ug/dl 110 - 370 04/27 [facility] STUDY /2017 [facility] ANEMIA TIBC 211 ug/dl 228 - 428 04/27 [facility] ANEMIA Folate Lvl 17.0 ng/mL >=3.0 04/27 [facility] STUDY ng/mL /2017 [facility] ANEMIA Ferritin Lvl 362 ng/mL 5 - 204 04/27 [facility] /2017 [facility] Chest 1view Chest 1view EXAM: XR CHEST 1 VIEW 04/26 - [facility] DX DX - [facility] This report was dictated by a Glue Machine Operator/Fellow. I have personally reviewed the images as [...] AND UA <=1.0 0.1 - 1.0 04/26 [facility] Urobilinogen mg/dL /2017 [facility] URINE AND UA Protein Negative Negative 04/26 [facility] mg/dL mg/dL /2017 [facility] URINE AND UA Glucose Negative Negative 04/26 [facility] mg/dL mg/dL /2017 [facility] URINE AND UA Spec Grav 1.008 <=1.030 04/[address] URINE AND UA pH 5.5 5.0 - 8.0 04/26 [facility] [address] [place] [address] URINE AND UA Turbidity Clear Clear 04/26 [facility] /2017 [facility] (04/26/18 3:19 PM) [place] URINE AND UA Color Yellow Yellow 04/26 [facility] Medical *NA* Center (04/26/18 3:19 PM) URINE AND UA Nitrite Negative Negative 04/26 [facility] /[address] [place] [address] (04/26/18 3:19 PM) [place] URINE AND UA Leuk Est Negative Negative 04/26 [facility] STOOL [facility] (04/26/18 3:19 PM) [place] URINE AND UA Bili Negative Negative 04/[address] *NA* [place] (04/26/18 3:19 PM) URINE AND UA Blood Negative Negative 04/26 [facility] STOOL [address] [place] [address] (04/26/18 3:19 PM) [place] URINE AND UA Ketones Negative Negative 04/26 [facility] STOOL mg/dL mg/dL /[address] [place] [address] URINE AND UA Sq Epi None Seen 04/[address] URINE AND UA Mucus Few /LPF None Seen 04/26 [facility] STOOL /LPF /[address] [place] [address] URINE AND UA Hyal Cast 11 /LPF 0 - 2 04/[address] URINE AND UA WBC null 0 - 5 04/26 [facility] STOOL [address] URINE AND UA RBC null 0 - 2 04/26 [facility] STOOL [address] CARDIAC Total CK 9 unit/L 12 - 191 04/26 [facility] ENZYMES /[address] [place] [address] CARDIAC Troponin-T null 0.000 - 04/26 [place] [facility] 0.100 /[address] [place] [address] CARDIAC Troponin-I null 0.00 - 04/26 [place] [facility] 0.40 /[address] [place] [address] CARDIAC Total CK 13 unit/L 12 - 191 04/26 [facility] ENZYMES [address] CARDIAC Troponin-T null 0.000 - 04/26 [place] [facility] 0.100 /[address] [place] [address] CARDIAC Troponin-I null 0.00 - 04/26 [place] [facility] 0.40 /[address] [place] [address] CHEM PANEL B/C Ratio 37 6 - 25 04/[address] CHEM PANEL AST 11 unit/L 0 - 37 04/[address] CHEM PANEL ALT 9 unit/L 0 - 65 04/[address] CHEM PANEL Total 7.1 g/dL 6.4 - 8.4 04/26 [facility] Protein [address] CHEM PANEL Albumin Lvl 2.9 g/dL 3.5 - 5.0 04/[address] CHEM PANEL A/G Ratio 0.7 0.7 - 1.6 04/[address] CHEM PANEL Globulin 4.2 g/dL 2.7 - 4.2 04/[address] CHEM PANEL Bili Total 0.9 mg/dL 0.2 - 1.3 04/[address] CHEM PANEL Alk Phos 72 unit/L 39 - 136 04/[address] HEMATOLOGY Myelocytes 1.0 % <=0.0 % 04/[address] CARDIAC Troponin-I null 0.00 - 04/26 [facility] ENZYMES 0.40 /2017 [facility] CARDIAC Total CK 18 unit/L 12 - 191 04/26 [facility] ENZYMES /[address] [place] [address] CARDIAC BNP 710 pg/mL <=100 04/26 [facility] ENZYMES pg/mL /2017 [facility] CHEM PANEL Lipase Lvl 96 unit/L 73 - 393 04/[address] CHEM PANEL Amylase Lvl 49 unit/L 25 - 115 04/[address] HEMATOLOGY INR 1.10 0.85 - 04/26 [facility] 1.17 [facility] HEMATOLOGY PTT 36.5 s 22.9 - 04/26 [facility] 35.8 [facility] HEMATOLOGY PT 14.2 s 12.0 - 04/26 [facility] 14.7 [facility] HEMATOLOGY Anisocyte 1+ None Seen 04/26 [facility] [address] [place] [address] (04/25/18 11:02 PM) Abdomen AP Abdomen AP EXAM: XR ABDOMEN 1 VIEW 04/25 - [facility] DX DX - [facility] DATE: 04/25/2018 11:05 PM CDT Read by: [...] 2 EXAM: XR CHEST 2 VIEWS 04/25 - [facility] views DX views DX /2018 [facility] DATE: 04/25/2018 8:26 PM CDT Read by: [...] semiupright exam. PET CT PET CT EXAM: [place] PET CT Skull Base to Mid Thigh 04/02 - [facility] Lymphoma Lymphoma /2018 - [facility] rest[facility] restaging This report was dictated by a Glue Machine Operator/ Fellow. I have personally reviewed the images [...] Magnesium 2.4 mg/dL 1.8 - 2.4 02/06 [facility] CHEM PANEL eGFR 45 02/06 Result Comment: The eGFR is calculated using the CKD-EPI formula. In most young, healthy individuals the eGFR will be >90 mL/ min/1.73m2. The eGFR declines with age. An eGFR of 60-89 may be normal in [facility] mL/min/1. some populations, particularly the elderly, for whom the CKD-EPI formula has not been extensively validated. Use of the eGFR is not recommended in the following populations: [address] Individuals with unstable creatinine concentrations, including [...] PANEL Creatinine 1.16 mg/dL 0.50 - 02/06 [facility] CHEM PANEL Glucose Lvl 63 mg/dL 70 - 99 02/[address] CHEM PANEL BUN 50 mg/dL 7 - 22 02/[address] CHEM PANEL Sodium Lvl 139 meq/L 135 - 145 02/[address] CHEM PANEL Potassium 3.9 meq/L 3.5 - 5.1 02/06 [facility] [address] [place] [address] CHEM PANEL Chloride Lvl 104 meq/L 95 - 109 02/[address] CHEM PANEL CO2 29 meq/L 24 - 32 02/[address] CHEM PANEL AGAP 9.9 meq/L 10.0 - 02/06 [facility] 20.0 [facility] CHEM PANEL Calcium Lvl 8.6 mg/dL 8.5 - 10.5 02/[address] CHEM PANEL Phosphorus 2.6 mg/dL 2.5 - 4.5 02/[address] CHEM PANEL Uric Acid 0.7 mg/dL 2.5 - 7.0 02/[address] HEMATOLOGY Eosinophils 0.2 % 0.0 - 4.0 02/[address] HEMATOLOGY Lymphocytes 91.1 % 20.0 - 02/06 [place] 40.0 [facility] HEMATOLOGY Monocytes 0.8 % 2.0 - 12.0 02/06 [facility] HEMATOLOGY Segs 7.8 % 45.0 - 02/06 75.0 [facility] HEMATOLOGY Smudge Moderate None Seen 02/06 [facility]* [place] (02/06/18 3:30 AM) HEMATOLOGY Macrocyte 1+ None Seen 02/06 [facility]* [place] (02/06/18 3:30 AM) HEMATOLOGY Segs-Bands # 1.6 K/CMM 1.5 - 8.1 02/[address] HEMATOLOGY Lymphocytes 18.8 K/CMM 1.0 - 5.5 02/06 [facility] # [facility] HEMATOLOGY Basophils 0.1 % 0.0 - 1.0 02/[address] HEMATOLOGY Monocytes # 0.2 K/CMM 0.0 - 0.8 02/06 [facility] HEMATOLOGY Anisocyte 1+ None Seen 02/06 [facility]* [place] (02/06/18 3:30 AM) HEMATOLOGY Platelet 57 K/CMM 133 - 450 02/06 [facility] HEMATOLOGY WBC 20.6 K/CMM 3.7 - 10.4 02/06 [facility] HEMATOLOGY RBC 2.48 M/CMM 4.20 - 02/06 [facility] 5.40 [facility] HEMATOLOGY Hct 25.2 % 36.0 - 02/06 48.0 [facility] HEMATOLOGY Hgb 8.0 g/dL 12.0 - 02/06 16.0 [facility] HEMATOLOGY MPV 9.5 fL 7.4 - 10.4 02/06 [facility] HEMATOLOGY MCHC 31.7 g/dL 32.0 - 02/06 36.0 [facility] HEMATOLOGY MCH 32.3 pg 27.0 - 02/06 31.0 [facility] HEMATOLOGY MCV 101.8 fL 80.0 - 02/06 [facility] 98.0 [facility] HEMATOLOGY RDW 22.4 % 11.5 - 02/06 14.5 [facility] HEMATOLOGY INR 1.03 0.85 - 02/06 [facility] 1.17 [facility] HEMATOLOGY PTT 32.2 s 22.9 - 02/06 [facility] 35.8 /2017 [facility] HEMATOLOGY PT 13.5 s 12.0 - 02/06 [facility] 14.7 [facility] CHEM PANEL Magnesium 2.1 mg/dL 1.8 - 2.4 02/05 [facility] Lvl [facility] CHEM PANEL Uric Acid 0.3 mg/dL 2.5 - 7.0 02/05 [facility] CHEM PANEL eGFR 42 02/05 Result Comment: The eGFR is calculated using the CKD-EPI formula. In most young, healthy individuals the eGFR will be >90 mL/ min/1.73m2. The eGFR declines with age. An eGFR of 60-89 may be normal in [facility] mL/min/1. some populations, particularly the elderly, for whom the CKD-EPI formula has not been extensively validated. Use of the eGFR is not recommended in the following populations: [address] Individuals with unstable creatinine concentrations, including [...] Lvl 133 meq/L 135 - 145 02/05 [facility] CHEM PANEL Creatinine 1.23 mg/dL 0.50 - 02/05 [facility] Lvl 1.40 [facility] CHEM PANEL Glucose Lvl 424 mg/dL 70 - 99 02/05 Result Comment: [facility] Center Result(s) called to Shannon Murdock at 02/05/2018 06:18 by ET. Read back OK. CHEM PANEL BUN 54 mg/dL 7 - 22 02/05 [facility] CHEM PANEL Calcium Lvl 8.9 mg/dL 8.5 - 10.5 02/05 [facility] CHEM PANEL AGAP 13.9 meq/L 10.0 - 02/05 [facility] 20.0 [facility] CHEM PANEL CO2 27 meq/L 24 - 32 02/05 [facility] CHEM PANEL Chloride Lvl 97 meq/L 95 - 109 02/05 [facility] CHEM PANEL Potassium 4.9 meq/L 3.5 - 5.1 02/05 [facility] Lvl [facility] CHEM PANEL Phosphorus 2.7 mg/dL 2.5 - 4.5 02/05 [facility] HEMATOLOGY Hgb 8.6 g/dL 12.0 - 02/05 16.0 [facility] HEMATOLOGY RBC 2.64 M/CMM 4.20 - 02/05 [place] 5.40 /2017 [facility] HEMATOLOGY WBC 19.7 K/CMM 3.7 - 10.4 02/05 [facility] HEMATOLOGY Hct 26.9 % 36.0 - 02/05 [place] 48.0 [facility] HEMATOLOGY MCV 101.9 fL 80.0 - 02/05 [facility] 98.0 [facility] HEMATOLOGY MCH 32.5 pg 27.0 - 02/05 [facility] 31.0 [facility] HEMATOLOGY Platelet 59 K/CMM 133 - 450 02/[address] HEMATOLOGY RDW 22.7 % 11.5 - 02/05 [facility] 14.5 [facility] HEMATOLOGY MCHC 31.9 g/dL 32.0 - 02/05 36.0 [facility] HEMATOLOGY MPV 9.9 fL 7.4 - 10.4 02/05 [facility] HEMATOLOGY PTT 33.8 s 22.9 - 02/05 [facility] 35.8 /2018 [facility] HEMATOLOGY PT 14.1 s 12.0 - 02/05 [facility] 14.7 [facility] HEMATOLOGY INR 1.09 0.85 - 02/05 1.17 [facility] HEMATOLOGY Smudge Moderate None Seen 02/05 [facility] *ABN* Center (02/05/18 5:02 AM) HEMATOLOGY Segs-Bands # 1.7 K/CMM 1.5 - 8.1 02/[address] [place] [address] HEMATOLOGY Lymphocytes 90.0 % 20.0 - 02/05 [facility] 40.0 2018 [facility] HEMATOLOGY Plt Morph Normal 02/05 [facility] (02/05/18 5:02 AM) [place] HEMATOLOGY Monocytes 1.0 % 2.0 - 12.0 02/[address] HEMATOLOGY Segs 9.0 % 45.0 - 02/05 [place] 75.0 [facility] HEMATOLOGY Basophils 0.0 % 0.0 - 1.0 02/[address] HEMATOLOGY Lymphocytes 17.9 K/CMM 1.0 - 5.5 02/05 [facility] # [facility] HEMATOLOGY Macrocyte 1+ None Seen 02/05 [facility] [address] [place] [address] (02/05/18 5:02 AM) HEMATOLOGY Monocytes # 0.1 K/CMM 0.0 - 0.8 02/[address] HEMATOLOGY Anisocyte 1+ None Seen 02/05 [facility] [address] [place] [address] (02/05/18 5:02 AM) CHEM PANEL Uric Acid 4.0 mg/dL 2.5 - 7.0 02/[address] CHEM PANEL Phosphorus 2.3 mg/dL 2.5 - 4.5 02/[address] CHEM PANEL eGFR 58 02/04 Result Comment: The eGFR is calculated using the CKD-EPI formula. In most young, healthy individuals the eGFR will be >90 mL/ min/1.73m2. The eGFR declines with age. An eGFR of 60-89 may be normal in [facility] mL/min/1. some populations, particularly the elderly, for whom the CKD-EPI formula has not been extensively validated. Use of the eGFR is not recommended in the following populations: [address] Individuals with unstable creatinine concentrations, including [...] Lvl 8.8 mg/dL 8.5 - 10.5 02/04 [facility] [address] [place] [address] CHEM PANEL Glucose Lvl 110 mg/dL 70 - 99 02/[address] CHEM PANEL Sodium Lvl 135 meq/L 135 - 145 02/[address] CHEM PANEL Potassium 4.2 meq/L 3.5 - 5.1 02/04 [facility] [address] [place] [address] CHEM PANEL Chloride Lvl 96 meq/L 95 - 109 02/[address] CHEM PANEL CO2 29 meq/L 24 - 32 02/[address] CHEM PANEL AGAP 14.2 meq/L 10.0 - 02/04 [place] 20.0 [facility] CHEM PANEL BUN 54 mg/dL 7 - 22 02/04 [facility] CHEM PANEL Creatinine 0.94 mg/dL 0.50 - 02/04 [facility] 1.40 [facility] CHEM PANEL Uric Acid 4.2 mg/dL 2.5 - 7.0 02/04 [facility] CHEM PANEL Magnesium 2.1 mg/dL 1.8 - 2.4 02/04 [facility] Lvl /2017 [facility] HEMATOLOGY PT 13.8 s 12.0 - 02/04 [facility] 14.7 [facility] HEMATOLOGY PTT 34.7 s 22.9 - 02/04 [facility] 35.8 [facility] HEMATOLOGY INR 1.06 0.85 - 02/04 [facility] 1.17 [facility] HEMATOLOGY RBC 2.80 M/CMM 4.20 - 02/04 [facility] 5.40 [facility] HEMATOLOGY Hgb 9.1 g/dL 12.0 - 02/04 [facility] 16.0 [facility] HEMATOLOGY Hct 27.6 % 36.0 - 02/04 [facility] 48.0 2018 [facility] HEMATOLOGY WBC 28.3 K/CMM 3.7 - 10.4 02/04 [facility] HEMATOLOGY MCHC 32.8 g/dL 32.0 - 02/04 [facility] 36.0 [facility] HEMATOLOGY RDW 20.8 % 11.5 - 02/04 [facility] 14.5 /2017 [facility] HEMATOLOGY Platelet 69 K/CMM 133 - 450 02/[address] [place] [address] HEMATOLOGY MCV 98.5 fL 80.0 - 02/04 [facility] 98.0 2018 [facility] HEMATOLOGY MCH 32.3 pg 27.0 - 02/04 [facility] 31.0 2018 [facility] HEMATOLOGY MPV 9.7 fL 7.4 - 10.4 02/[address] HEMATOLOGY Eosinophils 0.2 % 0.0 - 4.0 02/04 [facility] [address] [place] [address] HEMATOLOGY Basophils 0.1 % 0.0 - 1.0 02/04 [facility] [address] [place] [address] HEMATOLOGY Segs-Bands # 1.8 K/CMM 1.5 - 8.1 02/04 [facility] [address] [place] [address] HEMATOLOGY Monocytes # 0.3 K/CMM 0.0 - 0.8 02/04 [facility] HEMATOLOGY Eosinophils 0.1 K/CMM 0.0 - 0.5 02/04 [facility] HEMATOLOGY Lymphocytes 26.1 K/CMM 1.0 - 5.5 02/04 [facility] HEMATOLOGY Lymphocytes 92.5 % 20.0 - 02/04 [facility] 40.0 [facility] HEMATOLOGY Monocytes 0.9 % 2.0 - 12.0 02/04 [facility]2017 [facility] HEMATOLOGY Segs 6.3 % 45.0 - 02/04 [place] 75.0 [facility] HEMATOLOGY Anisocyte 1+ None Seen 02/03 [facility] [place] (02/03/18 4:54 AM) HEMATOLOGY Eosinophils 0.1 % 0.0 - 4.0 02/03 [facility] HEMATOLOGY Macrocyte 1+ None Seen 02/03 [facility] [address] [place], [place] [address]ABN* [place] (02/03/18 4:54 AM) HEMATOLOGY Plt Morph Normal 02/03 [facility] (02/03/18 4:54 AM) [place] PARATHYROID Ca Ion WB 1.17 1.05 - 02/03 [facility] PROFILE mMol/L 1. [facility] PARATHYROID Ca Norm WB 1.18 1.05 - 02/03 [facility] PROFILE mMol/L 1. [facility] Abdomen Abdomen EXAM: VIR 02/02 - [facility] biopsy biopsy - [facility] needle w needle w DATE: 02/02/2018 2:19 PM CDT Center guidance CT guidance CT PROCEDURE(S) PERFORMED: Left enlarged psoas muscle biopsy Read by: Freya Reid MD Dictated Date/time: 02/02/18 15:05 INDICATION: 82 years old Female with history of CLL and retroperitoneal lymphadenopathy including large infiltrated left psoas muscle. Electronically Signed by: Freya Reid MD 02/02/18 15 :07 FINAL REPORT FACULTY: Freya Reid MD RESIDENT/FELLOW/CEO AND FOUNDER: None SUPERVISION: Level 1 Direct supervision: The [...] procedure. HEMATOLOGY Hypochrom 1+ None Seen 02/[address] (02/02/18 3:32 AM) Center HEMATOLOGY Polychrom Moderate None Seen 02/[address] *ABN* [place] (02/02/18 3:32 AM) HEMATOLOGY Smudge Moderate None Seen 02/[address] [place] (02/02/18 3:32 AM) CHEM PANEL Albumin Lvl 2.7 g/dL 3.5 - 5.0 02/[address] CHEM PANEL Globulin 3.7 g/dL 2.7 - 4.2 02/[address] CHEM PANEL ALT 17 unit/L 0 - 65 02/[address] CHEM PANEL A/G Ratio 0.7 0.7 - 1.6 02/[address] CHEM PANEL Alk Phos 66 unit/L 39 - 136 02/[address] CHEM PANEL AST 21 unit/L 0 - 37 02/[address] CHEM PANEL Bili Total 0.5 mg/dL 0.2 - 1.3 02/[address] CHEM PANEL Total 6.4 g/dL 6.4 - 8.4 02/[address] CHEM PANEL B/C Ratio 75 6 - [address] [place] [address] HEMATOLOGY Atypical 0.0 % <=0.0 % 02/[address] HEMATOLOGY Microcyte 1+ None Seen 02/[address] *ABN* Center (02/01/18 3:32 AM) HEMATOLOGY Blasts 1.0 % <=0.0 % 02/[address] HEMATOLOGY Bands 0.0 % 0.0 - 11.0 02/[address] HEMATOLOG[address] Tot Cell Ct 200 01/[address] HEMATOLOGY Bands 0.0 % 0.0 - 11.0 01/[address] HEMATOLOGY Plt Morph Normal 01/[address] (01/29/18 5:39 AM) [place] HEMATOLOGY RBC Morph Normal 01/29 [facility]2017 [facility] (01/29/18 5:39 AM) [place] HEMATOLOGY Atypical 0.0 % <=0.0 % 01/[address] Chest 1view Chest 1view EXAM: XR CHEST 1 VIEW 01/29 - [facility] DX - [facility] DATE: 01/29/2018 Read by: Jackie [...] ALT 7 unit/L 0 - 65 01/[address] CHEM PANEL AST 21 unit/L 0 - 37 01/[address] CHEM PANEL Globulin 4.2 g/dL 2.7 - 4.2 01/[address] CHEM PANEL B/C Ratio 31 6 - 25 01/[address] CHEM PANEL A/G Ratio 0.6 0.7 - 1.6 01/[address] CHEM PANEL Bili Total 0.7 mg/dL 0.2 - 1.3 01/[address] CHEM PANEL Total 6.9 g/dL 6.4 - 8.4 01/[address] CHEM PANEL Albumin Lvl 2.7 g/dL 3.5 - 5.0 01/[address] CHEM PANEL Alk Phos 67 unit/L 39 - 136 01/[address] URINE AND UA Ketones Negative Negative 01/28 [facility] STOOL mg/dL mg/dL [facility] CHEM PANEL B/C Ratio 33 6 - 25 01/[address] CHEM PANEL Total 7.2 g/dL 6.4 - 8.4 01/28 [facility] Protein 2017 [facility] CHEM PANEL AST 23 unit/L 0 - 37 01/[address] CHEM PANEL Alk Phos 75 unit/L 39 - 136 01/[address] CHEM PANEL Bili Total 0.8 mg/dL 0.2 - 1.3 01/[address] CHEM PANEL Albumin Lvl 2.8 g/dL 3.5 - 5.0 01/[address] CHEM PANEL Globulin 4.4 g/dL 2.7 - 4.2 01/[address] CHEM PANEL A/G Ratio 0.6 0.7 - 1.6 01/[address] CHEM PANEL ALT 10 unit/L 0 - 65 01/[address] ANEMIA Ferritin Lvl 180 ng/mL 5 - 204 01/28 [facility] [address] [place] [address] ANEMIA Vitamin B12 239 pg/mL 254 - 1320 01/28 [facility] [address] [place] [address] ANEMIA % Satur Fe 16 % 12 - 57 01/[address] ANEMIA UIBC 264 ug/dl 110 - 370 01/[address] ANEMIA Iron 50 ug/dl 30 - 160 01/[address] ANEMIA TIBC 314 ug/dl 228 - 428 01/[address] ANEMIA RBC Folate 1501 ng/mL 280 - 791 01/[address] ANEMIA Folate Lvl 16.0 ng/mL >=3.0 01/28 [facility] ng/mL [address] [place] [address] CHEM PANEL Ketone 0.24 <=0.27 01/28 [facility] Quantitative mmol/L mmol/L [address] [place] [address] CHEM PANEL Lactic Acid 1.3 mMol/L 0.5 - 2.2 01/28 [facility] [address] [place] [address] HEMATOLOGY Retic Auto 5.0 % 0.5 - 1.5 01/28 [facility] HEMATOLOGY Tot Cell Ct 100 01/28 [facility]2017 [facility] HEMATOLOGY Atypical 2.0 % <=0.0 % 01/28 [facility] Lymphs /2017 [facility] HEMATOLOGY Bands 0.0 % 0.0 - 11.0 01/[address] Chest 1view Chest 1view EXAM: XR CHEST 1 VIEW 01/28 - [facility] DX DX /2017 - [facility] DATE: 01/28/2018 8:48 AM CDT [...] stable. CARDIAC BNP 1002 pg/mL <=100 01/27 [facility] ENZYMES pg/mL [facility] IMMUNOLOGY Hep Bs Ag Negative Negative 01/27 [facility]* [place] (01/27/18 2:02 PM) IMMUNOLOGY Hep B Core Negative Negative 01/27 [facility] IgM [facility]* [place] (01/27/18 2:02 PM) IMMUNOLOGY Hep C Ab Negative 01/27 [facility] [place] (01/27/18 2:02 PM) IMMUNOLOGY Hep A IgM Negative Negative 01/27 [facility] (01/27/18 2:02 PM) HEMATOLOGY Basophils # 0.1 K/CMM 0.0 - 0.2 01/27 [facility] Chest 1 v Chest 1 v EXAM: XR CHEST 1 VIEW 01/27 - [facility] for for - Medical Placement Placement DX This report was dictated by a Glue Machine Operator/Fellow. I have personally reviewed the images as [...] BLOOD BANK RBC product Modification Required 01/27 [facility] RESULTS /2017 Medical (01/26/18 8:26 PM) [place] BLOOD BANK ABO/Rh O NEG 01/26 [facility] RESULTS /2017 [facility] BLOOD BANK Antibody Negative 01/26 [facility] RESULTS [facility] (01/26/18 4:49 PM) Center CARDIAC Troponin-I null 0.00 - 01/26 [facility] ENZYMES 0.40 [facility] HEMATOLOGY Blasts 2.0 % <=0.0 % 01/26 Result [place] /2017 Comment: Medical Patient has Center history of CLL. HEMATOLOGY Tot Cell Ct 200 01/26 [place] /2017 [facility] Center Chest 2 Chest 2 EXAM: XR CHEST 2 VIEWS 01/26 - [facility] views DX views DX /2017 - Medical This report was dictated by a Glue Machine Operator/Fellow. I have personally reviewed the images as [...] MID THIGH: 01/26/2018 4:41 PM CDT 01/21 [facility] Tumor imaging-[facility] /2018 - [facility] CLINICAL INDICATION: - liver cancer initial [...] involvement. HEMATOLOGY Macrocyte 1+ None Seen 01/[address]* [place] (01/05/18 12:54 PM) HEMATOLOGY Anisocyte 1+ None Seen 01/[address] (01/05/18 12:54 PM) HEMATOLOGY Smudge Moderate None Seen 01/[address] (01/05/18 12:54 PM) HEMATOLOGY Lymphocytes 24.7 K/CMM 1.0 - 5.5 01/[address] HEMATOLOGY Segs-Bands # 1.3 K/CMM 1.5 - 8.1 01/[address] HEMATOLOGY Segs 5.1 % 45.0 - 01/05 [facility] [address] HEMATOLOGY Basophils # 0.1 K/CMM 0.0 - 0.2 01/[address] HEMATOLOGY Eosinophils 0.1 K/CMM 0.0 - 0.[address] [place] [address] HEMATOLOGY Monocytes # 0.2 K/CMM 0.0 - 0.[address] [place] [address] HEMATOLOGY Basophils 0.2 % 0.0 - 1.[address] [place] [address] HEMATOLOGY Eosinophils 0.2 % 0.0 - 4.0 01/[address] HEMATOLOGY Monocytes 0.7 % 2.0 - 12.0 01/[address] HEMATOLOGY Lymphocytes 93.8 % 20.0 - 01/05 [facility] [address] [place] [address] HEMATOLOGY WBC 26.4 K/CMM 3.7 - 10.[address] [place] [address] HEMATOLOGY MPV 10.3 fL 7.4 - 10.[address] [place] [address] HEMATOLOGY Platelet 68 K/CMM 133 - 450 01/05 [facility] [address] [place] [address] HEMATOLOGY RDW 20.4 % 11.5 - 01/05 [facility] 14.5 /2017 [facility] HEMATOLOGY MCHC 32.0 g/dL 32.0 - 01/05 [facility] 36.0 [facility] HEMATOLOGY MCH 32.5 pg 27.0 - 01/05 [facility] 31.0 [facility] HEMATOLOGY RBC 2.37 M/CMM 4.20 - 01/05 [facility] 5.40 /2017 [facility] HEMATOLOGY MCV 101.3 fL 80.0 - 01/05 [facility] 98.0 [facility] HEMATOLOGY Hct 24.0 % 36.0 - 01/05 [facility] 48.0 [facility] HEMATOLOGY Hgb 7.7 g/dL 12.0 - 01/05 [facility] 16.0 [facility] CHEM PANEL Magnesium 1.8 mg/dL 1.8 - 2.4 01/05 Result [facility] /[facility] Comment: [facility] Center Slightly Hemolyzed. CHEM PANEL Phosphorus 3.4 mg/dL 2.5 - 4.5 01/[address] CHEM PANEL Albumin Lvl 2.7 g/dL 3.5 - 5.0 01/[address] CHEM PANEL Bili Total 0.4 mg/dL 0.2 - 1.3 01/[address] CHEM PANEL Total 7.4 g/dL 6.4 - 8.4 01/05 [facility] Protein [address] [place] [address] CHEM PANEL AST 21 unit/L 0 - 37 01/[address] CHEM PANEL ALT 10 unit/L 0 - 65 01/[address] CHEM PANEL Alk Phos 70 unit/L 39 - 136 01/[address] CHEM PANEL Globulin 4.7 g/dL 2.7 - 4.2 01/[address] CHEM PANEL A/G Ratio 0.6 0.7 - 1.6 01/[address] CHEM PANEL Bili Direct 0.1 mg/dL 0.0 - 0.3 01/[address] CHEM PANEL Bili 0.3 mg/dL 0.0 - 1.0 01/05 [facility] Indirect [facility] ELECTROLYTE AGAP 17.3 meq/L 10.0 - 01/05 [facility] 20.0 [facility] ELECTROLYTE CO2 22 meq/L 24 - 32 01/[address] ELECTROLYTE Calcium Lvl 8.8 mg/dL 8.5 - 10.5 01/[address] ELECTROLYTE Potassium 4.3 meq/L 3.5 - 5.1 01/05 [facility] Lvl /2017 [facility] ELECTROLYTE Chloride Lvl 98 meq/L 95 - 109 01/[address] ELECTROLYTE Sodium Lvl 133 meq/L 135 - 145 01/[address] ELECTROLYTE eGFR 43 01/05 Result Comment: The eGFR is calculated using the CKD-EPI formula. In most young, healthy individuals the eGFR will be >90 mL/ min/1.73m2. The eGFR declines with age. An eGFR of 60-89 may be normal in [facility] mL/min/1 some populations, particularly the elderly, for whom the CKD-EPI formula has not been extensively validated. Use of the eGFR is not recommended in the following populations: [address] Individuals with unstable creatinine concentrations, including [...] BUN 45 mg/dL 7 - 22 01/[address] ELECTROLYTE Creatinine 1.19 mg/dL 0.50 - 01/05 [facility] Lvl 1.40 [facility] ELECTROLYTE Glucose Lvl 120 mg/dL 70 - 99 01/[address] CHEM PANEL eGFR 41 01/04 Result Comment: The eGFR is calculated using the CKD-EPI formula. In most young, healthy individuals the eGFR will be >90 mL/ min/1.73m2. The eGFR declines with age. An eGFR of 60-89 may be normal in [facility]/min/1 some populations, particularly the elderly, for whom the CKD-EPI formula has not been extensively validated. Use of the eGFR is not recommended in the following populations: [address] Individuals with unstable creatinine concentrations, including [...] CO2 23 meq/L 24 - 32 01/[address] CHEM PANEL Chloride Lvl 96 meq/L 95 - 109 01/[address] CHEM PANEL AGAP 16.3 meq/L 10.0 - 01/04 [facility] 20.0 [facility] CHEM PANEL Potassium 4.3 meq/L 3.5 - 5.1 01/04 [facility] [address] [place] [address] CHEM PANEL Sodium Lvl 131 meq/L 135 - 145 01/[address] CHEM PANEL Creatinine 1.24 mg/dL 0.50 - 01/04 [facility] Lvl 1.40 [facility] CHEM PANEL Calcium Lvl 8.8 mg/dL 8.5 - 10.5 01/[address] CHEM PANEL BUN 47 mg/dL 7 - 22 01/[address] CHEM PANEL Glucose Lvl 167 mg/dL 70 - 99 01/[address] CHEM PANEL Phosphorus 3.6 mg/dL 2.5 - 4.5 01/[address] CHEM PANEL Magnesium 2.0 mg/dL 1.8 - 2.4 01/[address] CHEM PANEL eGFR 45 01/03 Result Comment: The eGFR is calculated using the CKD-EPI formula. In most young, healthy individuals the eGFR will be >90 mL/ min/1.73m2. The eGFR declines with age. An eGFR of 60-89 may be normal in [facility] mL/min/1.7 some populations, particularly the elderly, for whom the CKD-EPI formula has not been extensively validated. Use of the eGFR is not recommended in the following populations: [address] Individuals with unstable creatinine concentrations, including [...] Lvl 135 meq/L 135 - 145 01/03 [facility] CHEM PANEL Potassium 3.5 meq/L 3.5 - 5.1 01/03 [facility] Lvl [facility] CHEM PANEL BUN 39 mg/dL 7 - 22 01/[address] CHEM PANEL Creatinine 1.15 mg/dL 0.50 - 01/03 [facility] Lvl 1.40 [facility] CHEM PANEL Calcium Lvl 9.0 mg/dL 8.5 - 10.5 01/03 [facility] CHEM PANEL Chloride Lvl 100 meq/L 95 - 109 01/03 2017 [facility] CHEM PANEL CO2 25 meq/L 24 - 32 01/03 2017 [facility] CHEM PANEL Glucose Lvl 164 mg/dL 70 - 99 01/[address] CHEM PANEL AGAP 13.5 meq/L 10.0 - 03 20.0 [facility] HEMATOLOGY Platelet 68 K/CMM 133 - 450 01/03 [facility] HEMATOLOGY MPV 9.4 fL 7.4 - 10.4 01/[address] [place] [address] HEMATOLOGY MCV 98.7 fL 80.0 - 10 [facility] 98.0 [facility] HEMATOLOGY MCH 32.4 pg 27.0 - 10 31.0 [facility] HEMATOLOGY MCHC 32.8 g/dL 32.0 - 10 [place] 36.0 [facility] HEMATOLOGY RDW 20.6 % 11.5 - 0310 14.5 [facility] HEMATOLOGY WBC 27.7 K/CMM 3.7 - 10.4 0310 [facility] HEMATOLOGY RBC 2.25 M/CMM 4.20 - 0310 [place] 5.40 2018 [facility] HEMATOLOGY Hct 22.2 % 36.0 - 0310 [place] 48.0 [facility] HEMATOLOGY Hgb 7.3 g/dL 12.0 - 10 16.0 [facility] HEMATOLOGY Segs 7.1 % 45.0 - 10 [place] 75.0 2018 [facility] HEMATOLOGY Lymphocytes 91.1 % 20.0 - 0310 [place] 40.0 2018 [facility] HEMATOLOGY Monocytes 1.3 % 2.0 - 12.[address] HEMATOLOGY Segs-Bands # 2.0 K/CMM 1.5 - 8.1 01/[address] HEMATOLOGY Eosinophils 0.2 % 0.0 - 4.0 01/[address] HEMATOLOGY Basophils 0.3 % 0.0 - 1.0 01/[address] HEMATOLOGY Basophils # 0.1 K/CMM 0.0 - 0.2 01/[address] HEMATOLOGY Lymphocytes 25.2 K/CMM 1.0 - 5.5 01/[address] HEMATOLOGY Monocytes # 0.4 K/CMM 0.0 - 0.8 01/[address] HEMATOLOGY Smudge Moderate None Seen 01/[address]* [place] (01/03/18 5:18 AM) CHEM PANEL Magnesium 2.7 mg/dL 1.8 - 2.4 01/[address] CHEM PANEL Phosphorus 4.3 mg/dL 2.5 - 4.5 01/[address] HEMATOLOGY Basophils # 0.1 K/CMM 0.0 - 0.2 01/[address] HEMATOLOGY Segs-Bands # 1.8 K/CMM 1.5 - 8.1 01/[address] HEMATOLOGY Lymphocytes 28.6 K/CMM 1.0 - 5.5 01/[address] HEMATOLOGY Monocytes # 0.2 K/CMM 0.0 - 0.8 01/[address] HEMATOLOGY Basophils 0.4 % 0.0 - 1.0 01/[address] HEMATOLOGY Anisocyte 1+ None Seen 01/[address]* [place] (01/02/18 2:43 AM) HEMATOLOGY Segs 6.0 % 45.0 - 01/02 [facility] 75.0 [facility] HEMATOLOGY Eosinophils 0.1 % 0.0 - 4.0 01/[address] HEMATOLOGY Lymphocytes 92.8 % 20.0 - 01/02 [place] 40.0 [facility] HEMATOLOGY Monocytes 0.7 % 2.0 - 12.0 01/[address] HEMATOLOGY Plt Morph Normal 01/[address] (01/02/18 2:43 AM) [place] HEMATOLOGY INR 1.07 0.85 - 01/02 [place] 1.17 [facility] HEMATOLOGY PT 13.9 s 12.0 - 01/02 [facility] 14.7 [facility] HEMATOLOGY PTT 30.5 s 22.9 - 01/02 [facility] 35.8 /2017 [facility] HEMATOLOGY MCHC 33.3 g/dL 32.0 - 01/02 [place] 36.0 [facility] HEMATOLOGY Platelet 85 K/CMM 133 - 450 01/02 [facility] HEMATOLOGY RDW 21.1 % 11.5 - 03 [facility] 14.5 [facility] HEMATOLOGY MPV 9.6 fL 7.4 - 10.4 01/02 [facility] HEMATOLOGY WBC 30.8 K/CMM 3.7 - 10.4 01/02 [facility] HEMATOLOGY Hct 25.3 % 36.0 - 01/02 [facility] 48.0 [facility] HEMATOLOGY Hgb 8.4 g/dL 12.0 - 01/02 [facility] 16.0 [facility] HEMATOLOGY RBC 2.57 M/CMM 4.20 - 01/02 [facility] 5.40 /2017 [facility] HEMATOLOGY MCH 32.7 pg 27.0 - 01/02 [facility] 31.0 [facility] HEMATOLOGY MCV 98.4 fL 80.0 - 01/02 [facility] 98.0 [facility] PARATHYROID Ca Ion WB 1.11 1.05 - 01/02 [facility] PROFILE mMol/L 1. [facility] PARATHYROID Ca Norm WB 1.12 1.05 - 01/02 [facility] PROFILE mMol/L 1. [facility] ANEMIA TRANSFERRIN 208 mg/dL 212 - 360 01/02 [facility] ANEMIA % Satur Fe 18 % 12 - 57 01/02 [facility] STUDY [facility] ANEMIA TIBC 430 ug/dl 228 - 428 01/02 [facility] ANEMIA UIBC 351 ug/dl 110 - 370 01/02 [facility] ANEMIA Iron 79 ug/dl 30 - 160 01/02 [facility] ANEMIA Ferritin Lvl 81 ng/mL 5 - 204 01/02 [facility] /2017 [facility] BLOOD BANK RBC product Product available 01/02 [facility] RESULTS /2017 Medical (01/01/18 8:44 PM) [place] HEMATOLOGY Macrocyte 1+ None Seen 01/02 Medical *ABN* Center (01/01/18 6:39 PM) CHEM PANEL Alk Phos 75 unit/L 39 - 136 01/[address] CHEM PANEL Bili Total 0.6 mg/dL 0.2 - 1.3 01/[address] CHEM PANEL AST 33 unit/L 0 - 37 01/[address] CHEM PANEL Total 7.3 g/dL 6.4 - 8.4 01/01 [facility] Protein [address] CHEM PANEL Albumin Lvl 2.8 g/dL 3.5 - 5.0 01/[address] CHEM PANEL ALT 8 unit/L 0 - 65 01/[address] CHEM PANEL A/G Ratio 0.6 0.7 - 1.6 01/[address] CHEM PANEL B/C Ratio 24 6 - 25 01/[address] CHEM PANEL Globulin 4.5 g/dL 2.7 - 4.2 01/[address] BLOOD BANK Antibody Negative 01/01 [facility] RESULTS Scrn [facility] (01/01/18 12:41 AM) [place] BLOOD BANK ABO/Rh O NEG 01/01 [facility] RESULTS /[address] [place] [address] CARDIAC BNP 904 pg/mL <=100 01/01 [facility] ENZYMES pg/mL /2017 [facility] CHEM PANEL Lactic Acid 1.5 mMol/L 0.5 - 2.2 01/01 [facility] Lvl /2017 [facility] CHEM PANEL Procalcitoni 0.55 ng/mL 0.00 - 01/01 [facility] n Lvl 0.10 [facility] CHEM PANEL Total 7.8 g/dL 6.4 - 8.4 01/01 [facility] Protein [address] CHEM PANEL Alk Phos 82 unit/L 39 - 136 01/[address] CHEM PANEL Bili Total 0.7 mg/dL 0.2 - 1.3 01/[address] CHEM PANEL Albumin Lvl 3.1 g/dL 3.5 - 5.0 01/[address] CHEM PANEL ALT 9 unit/L 0 - 65 01/[address] CHEM PANEL AST 21 unit/L 0 - 37 01/[address] CHEM PANEL A/G Ratio 0.7 0.7 - 1.6 01/[address] CHEM PANEL Globulin 4.7 g/dL 2.7 - 4.2 01/[address] CHEM PANEL B/C Ratio 23 6 - 25 01/[address] HEMATOLOGY Plt Morph Normal 01/01 [facility] (01/01/18 12:41 AM) Center HEMATOLOGY Macrocyte 1+ None Seen 01/01 [facility] [place] (01/01/18 12:41 AM) HEMATOLOGY Polychrom Moderate None Seen 01/01 [facility] [place] (01/01/18 12:41 AM) HEMATOLOGY PTT 33.7 s 22.9 - 01/01 [facility] 35.8 [facility] HEMATOLOGY PT 13.6 s 12.0 - 01/01 [facility] 14.7 [facility] HEMATOLOGY INR 1.04 0.85 - 01/01 [facility] 1.17 [facility] Chest 1view Chest 1view EXAM: XR CHEST 1 VIEW 01/01 - [facility] DX DX - [facility] DATE: 01/01/2018 Read by: Jackie [...] Lvl 131 ng/mL 5 - 204 11/29 [facility] STUDY [facility] CHEM PANEL Magnesium 1.8 mg/dL 1.8 - 2.4 11/29 [facility] CHEM PANEL Phosphorus 3.1 mg/dL 2.5 - 4.5 11/[address] CHEM PANEL Uric Acid 1.0 mg/dL 2.5 - 7.0 11/[address] CHEM PANEL eGFR 37 11/29 Result Comment: The eGFR is calculated using the CKD-EPI formula. In most young, healthy individuals the eGFR will be >90 mL/ min/1.73m2. The eGFR declines with age. An eGFR of 60-89 may be normal in [facility] mL/min/1.7 /2017 some populations, particularly the elderly, for whom the CKD-EPI formula has not been extensively validated. Use of the eGFR is not recommended in the following populations: [address] Individuals with unstable creatinine concentrations, including [...] Lvl 100 meq/L 95 - 109 11/29 [facility] [address] [place] [address] CHEM PANEL CO2 24 meq/L 24 - 32 11/[address] CHEM PANEL Creatinine 1.36 mg/dL 0.50 - 11/29 [facility] Lvl 1.40 [facility] CHEM PANEL Sodium Lvl 135 meq/L 135 - 145 11/[address] CHEM PANEL Potassium 4.4 meq/L 3.5 - 5.1 11/29 [facility] [place] [facility] CHEM PANEL BUN 47 mg/dL 7 - 22 11/[address] CHEM PANEL Glucose Lvl 147 mg/dL 70 - 99 11/[address] CHEM PANEL AGAP 15.4 meq/L 10.0 - 11/29 [facility] 20.0 [facility] CHEM PANEL Calcium Lvl 9.6 mg/dL 8.5 - 10.5 11/[address] HEMATOLOGY WBC 30.9 K/CMM 3.7 - 10.4 11/[address] HEMATOLOGY RDW 21.4 % 11.5 - 11/29 [facility] 14.5 [facility] HEMATOLOGY Platelet 75 K/CMM 133 - 450 11/[address] HEMATOLOGY MPV 9.4 fL 7.4 - 10.4 11/[address] HEMATOLOGY MCH 32.5 pg 27.0 - 11/29 [facility] 31.0 [facility] HEMATOLOGY MCHC 32.2 g/dL 32.0 - 11/29 [place] 36.0 [facility] HEMATOLOGY Hgb 8.1 g/dL 12.0 - 11/29 [place] 16.0 [facility] HEMATOLOGY Hct 25.2 % 36.0 - 11/29 [facility] 48.0 [facility] HEMATOLOGY MCV 100.7 fL 80.0 - 11/29 [facility] 98.0 [facility] HEMATOLOGY RBC 2.50 M/CMM 4.20 - 11/29 [facility] 5.40 /2017 [facility] HEMATOLOGY Segs 4.0 % 45.0 - 11/29 [place] 75.0 [facility] HEMATOLOGY Lymphocytes 95.0 % 20.0 - 11/29 [facility] 40.0 [facility] HEMATOLOGY Bands 0.0 % 0.0 - 11.0 11/29 [facility]2017 [facility] HEMATOLOGY Monocytes 1.0 % 2.0 - 12.0 11/[address] HEMATOLOGY Segs-Bands # 1.2 K/CMM 1.5 - 8.1 11/29 [facility]2017 [facility] HEMATOLOGY Plt Morph Normal 11/29 [facility] (11/29/17 6:20 AM) [place] HEMATOLOGY Atypical 0.0 % <=0.0 % 11/29 [facility] Lymphs [facility] HEMATOLOGY Macrocyte 1+ None Seen 11/29 [facility] *ABN* [place] (11/29/17 6:20 AM) HEMATOLOGY Anisocyte 1+ None Seen 11/29 [facility] [place] (11/29/17 6:20 AM) HEMATOLOGY Polychrom Slight 11/29 [facility] HEMATOLOGY Lymphocytes 29.4 K/CMM 1.0 - 5.5 11/29 [facility] # /2017 [facility] HEMATOLOGY Monocytes # 0.3 K/CMM 0.0 - 0.8 11/29 [facility] [address] [place] [address] PARATHYROID PTH Intact 88.2 pg/mL 11.1 - 11/29 [facility] PROFILE 79.5 [facility] REFERENCE Misc Lab IGVH 11/28 [facility] LAB RESULTS Hypermutat [facility] AnalyisSou rce: BMResults: Mutation Status: UnmutatedI nterpretat [...] 22:40. 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 Juan Rushing @[id number] on 12/04/2017 /Rebecca.R eference lab results scanned in [employer]. Results displayed in Results-La b-REFERENC E LAB-Outsid e Lab Documents (Imaged) under date/time results were scanned. Report sent for scanning on 12/04/2017 00:48. REFERENCE Test Name CLL BY 11/28 [facility] LAB RESULTS FISH /2017 [facility] Center REFERENCE Test Name CHROMOSOME 11/28 [place] LAB RESULTS ANALYSIS /2017 [facility] Center REFERENCE Misc Lab Chromosome 11/28 [facility] LAB RESULTS [employer] Medical urce: Center BMResults [...] PG HEMATOLOGY INR 1.09 0.85 - 11/28 [facility] [place] 1.17 [facility] HEMATOLOGY PT 14.1 s 12.0 - 11/28 [place] 14.7 [facility] HEMATOLOGY PTT 72.4 s 22.9 - 11/28 [facility] 35.8 [facility] BLOOD BANK Antibody Negative 11/28 [facility] RESULTS [facility] (11/28/17 3:24 AM) [place] BLOOD BANK ABO/Rh O NEG 11/28 [facility] RESULTS /2017 [facility] Bone Marrow Bone Marrow STUDY: Bone marrow aspiration and biopsy 11/28 - [facility] Bio/Aspr CT Bio/Aspr CT /2017 - [facility] Biopsy of retroperitoneal mass Read by: Jayy Israel MD Dictated Date/time: 11/28/17 10:29 Electronically Signed by: Jayy Israel MD 11/28/17 10:58 FINAL REPORT DATE: 11/28/2017 8:00 AM [employer] OFFICER INDICATION(S): The patient has chronic lymphocytic anemia [...] Temno needle. All needles were then removed. ELECTRIC DISTRIBUTION ENGINEER: Jhonatan CEO AND FOUNDER(S): CONSENT: Written consent obtained after discussing the [...] the procedure. HEMATOLOGY INR 1.02 0.85 - 02 [facility] 1.17 [facility] HEMATOLOGY PT 13.4 s 12.0 - 11/28 [facility] 14.7 [facility] HEMATOLOGY PTT 61.0 s 22.9 - 02/ [facility] 35.8 [facility] ANEMIA Ferritin Lvl 151 ng/mL 5 - 204 02/ [facility] STUDY [facility] CHEM PANEL Phosphorus 3.1 mg/dL 2.5 - 4.5 11/[address] CHEM PANEL Magnesium 1.7 mg/dL 1.8 - 2.4 11/28 [facility] CHEM PANEL eGFR 38 11/28 Result Comment: The eGFR is calculated using the CKD-EPI formula. In most young, healthy individuals the eGFR will be >90 mL/ min/1.73m2. The eGFR declines with age. An eGFR of 60-89 may be normal in [facility] mL/min/1.7 some populations, particularly the elderly, for whom the CKD-EPI formula has not been extensively validated. Use of the eGFR is not recommended in the following populations: [address] Individuals with unstable creatinine concentrations, including [...] Lvl 101 meq/L 95 - 109 11/28 [facility] [address] [place] [address] CHEM PANEL Potassium 4.2 meq/L 3.5 - 5.1 11/28 [facility] CHEM PANEL Sodium Lvl 135 meq/L 135 - 145 11/[address] CHEM PANEL BUN 49 mg/dL 7 - 22 11/[address] CHEM PANEL Creatinine 1.31 mg/dL 0.50 - 02 [facility] Lvl 1.40 [facility] CHEM PANEL AGAP 12.2 meq/L 10.0 - 11/28 [facility] 20.0 [facility] CHEM PANEL CO2 26 meq/L 24 - 32 02/ [address] CHEM PANEL Calcium Lvl 9.2 mg/dL 8.5 - 10.[address] CHEM PANEL Glucose Lvl 119 mg/dL 70 - [address] CHEM PANEL Uric Acid null 2.5 - 7.0 11/[address] HEMATOLOGY Platelet 75 K/CMM 133 - [address] HEMATOLOGY MPV 9.3 fL 7.4 - 10.[address] HEMATOLOGY MCHC 32.5 g/dL 32.0 - 11/28 [facility] 36.0 [facility] HEMATOLOGY RDW 21.2 % 11.5 - 11/28 [facility] 14.5 /2017 [facility] HEMATOLOGY Hgb 7.2 g/dL 12.0 - 11/28 [facility] 16.0 [facility] HEMATOLOGY RBC 2.20 M/CMM 4.20 - 11/28 [facility] 5.40 [facility] HEMATOLOGY Hct 22.0 % 36.0 - 11/28 [facility] 48.0 [facility] HEMATOLOGY MCH 32.6 pg 27.0 - 11/28 [facility] 31.0 [facility] HEMATOLOGY MCV 100.2 fL 80.0 - 11/28 [facility] 98.0 [facility] HEMATOLOGY WBC 30.1 K/CMM 3.7 - 10.4 11/[address] HEMATOLOGY Macrocyte 1+ None Seen 11/28 [facility] *ABN* Center (11/28/17 1:22 AM) HEMATOLOGY Smudge Moderate None Seen 11/28 [facility] [address] [place] [address] *ABN* Center (11/28/17 1:22 AM) HEMATOLOGY Lymphocytes 93.6 % 20.0 - 02/ [facility] 40.0 [facility] HEMATOLOGY Monocytes 0.6 % 2.0 - 12.[address] HEMATOLOGY Segs 5.6 % 45.0 - 02/ [facility] 75.0 2018 [facility] HEMATOLOGY Eosinophils 0.1 % 0.0 - 4.0 11/[address] HEMATOLOGY Lymphocytes 28.2 K/CMM 1.0 - 5.5 02 [facility] HEMATOLOGY Monocytes # 0.2 K/CMM 0.0 - 0.8 11/28 [facility] HEMATOLOGY Anisocyte 1+ None Seen 11/28 [facility] (11/28/17 1:22 AM) HEMATOLOGY Basophils 0.1 % 0.0 - 1.0 11/[address] HEMATOLOGY Segs-Bands # 1.7 K/CMM 1.5 - 8.1 11/[address] PARATHYROID PTH Intact 103.9 11.1 - 11/28 [facility] PROFILE pg/mL 79.5 [facility] CHEM PANEL Uric Acid 3.5 mg/dL 2.5 - 7.0 11/[address] CHEM PANEL Phosphorus 3.8 mg/dL 2.5 - 4.5 11/[address] HEMATOLOGY PTT 58.9 s 22.9 - 11/28 [facility] 35.8 [facility] ANEMIA Ferritin Lvl 146 ng/mL 5 - 204 11/27 [facility] CHEM PANEL eGFR 39 11/27 Result Comment: The eGFR is calculated using the CKD-EPI formula. In most young, healthy individuals the eGFR will be >90 mL/ min/1.73m2. The eGFR declines with age. An eGFR of 60-89 may be normal in [facility] mL/min/1.7 /2017 some populations, particularly the elderly, for whom the CKD-EPI formula has not been extensively validated. Use of the eGFR is not recommended in the following populations: [address] Individuals with unstable creatinine concentrations, including [...] Lvl 134 meq/L 135 - 145 11/[address] CHEM PANEL Creatinine 1.30 mg/dL 0.50 - 02 [facility] Lvl 1.40 [facility] CHEM PANEL Chloride Lvl 99 meq/L 95 - 109 11/[address] CHEM PANEL Potassium 4.3 meq/L 3.5 - 5.1 11/27 [facility] Lvl /2017 [facility] CHEM PANEL CO2 24 meq/L 24 - [address] CHEM PANEL AGAP 15.3 meq/L 10.0 - 11/27 [facility] 20.0 [facility] CHEM PANEL Calcium Lvl 9.7 mg/dL 8.5 - 10.5 11/[address] CHEM PANEL BUN 47 mg/dL 7 - 22 11/[address] CHEM PANEL Glucose Lvl 139 mg/dL 70 - [address] HEMATOLOGY INR 1.06 0.85 - 11/27 [facility] 1.17 [facility] HEMATOLOGY PT 13.8 s 12.0 - 11/27 [facility] 14.7 [facility] HEMATOLOGY Anisocyte 1+ None Seen 11/[address]* [place] (11/27/17 2:07 AM) HEMATOLOGY Tot Cell Ct 200 11/[address] HEMATOLOGY Smudge Moderate None Seen 11/[address]* [place] (11/27/17 2:07 AM) HEMATOLOGY Polychrom Moderate None Seen 11/27 [facility] [address] [place] [address] (11/27/17 2:07 AM) HEMATOLOGY Bands 0.0 % 0.0 - 11.0 11/[address] HEMATOLOGY Plt Morph Normal 11/[address] (11/27/17 2:07 AM) [place] HEMATOLOGY Segs 9.0 % 45.0 - 11/27 [facility] 75.0 [facility] HEMATOLOGY Monocytes 1.0 % 2.0 - 12.0 11/[address] HEMATOLOGY Lymphocytes 90.0 % 20.0 - 02 [facility] 40.0 [facility] HEMATOLOGY Atypical 0.0 % <=0.0 % 11/27 [facility] Lymphs [address] [place] [address] HEMATOLOGY Lymphocytes 27.6 K/CMM 1.0 - 5.5 11/27 [facility] # 2017 [facility] HEMATOLOGY Monocytes # 0.3 K/CMM 0.0 - 0.8 11/[address] HEMATOLOGY Segs-Bands # 2.8 K/CMM 1.5 - 8.1 11/[address] HEMATOLOGY RBC 2.19 M/CMM 4.20 - 0201 [place] 5.40 /2017 [facility] HEMATOLOGY WBC 30.7 K/CMM 3.7 - 10.4 11/27 [facility] HEMATOLOGY Hgb 7.2 g/dL 12.0 - 11/27 [place] 16.0 /2017 [facility] HEMATOLOGY MCHC 32.7 g/dL 32.0 - 11/27 [place] 36.0 /2017 [facility] HEMATOLOGY MCH 32.6 pg 27.0 - 11/27 [place] 31.0 [facility] HEMATOLOGY MCV 99.9 fL 80.0 - 11/27 [place] 98.0 [facility] HEMATOLOGY Hct 21.9 % 36.0 - 11/27 [place] 48.0 [facility] HEMATOLOGY RDW 22.1 % 11.5 - 02 [facility] 14.5 [facility] HEMATOLOGY Platelet 74 K/CMM 133 - 450 11/27 [facility] HEMATOLOGY MPV 9.1 fL 7.4 - 10.4 11/27 [facility] PARATHYROID PTH Intact 95.6 pg/mL 11.1 - 11/27 [facility] PROFILE 79.5 [facility] CHEM PANEL Vitamin D 40 pg/mL 11/26 Result Comment: Reference Range: [facility] 1,25 ([place] Adults: 21 - 65 [facility] CHEM PANEL Vitamin D3 40 pg/mL 11/26 Result Comment: Performed At: [facility] ,25 ([place]) [address] [place] [address] [phone] [facility] Trini Lao MD Ph:[phone] [place] CHEM PANEL Vitamin D2 null 11/26 [facility] 1,25 ([place])2 [facility] PARATHYROID Parathyroid null 11/26 Result Comment: Reference Range: [facility] PROFILE All Ages: <2.0 Medical Related The PTHrP assay should not be used to exclude cancer or Center Peptide screen tumor patients for humoral hypercalcemia of malignancy (HHM). The results should always be assessed in conjunction with the patient's medical history, clinical examination, and other findings. If test results are clinically discordant, please contact the laboratory. Performed At: [facility] [address] [place], [place] [id number] Trini Lao MD Ph:[phone] HEMATOLOGY Bands 1.0 % 0.0 - 11.0 11/26 [facility] HEMATOLOGY Plt Morph Normal 11/26 [facility] (11/26/17 8:35 AM) [place] HEMATOLOGY Atypical 0.0 % <=0.0 % 11/26 [facility] Lymphs [facility] HEMATOLOGY Polychrom Moderate None Seen 11/26 [facility] *ABN* [place] (11/26/17 8:35 AM) HEMATOLOGY Macrocyte 1+ None Seen 11/26 [facility] *ABN* [place] (11/26/17 8:35 AM) HEMATOLOGY Hypochrom 1+ None Seen 11/26 [facility] (11/26/17 8:35 AM) [place] HEMATOLOGY Smudge Moderate None Seen 11/26 [facility] *ABN* [place] (11/26/17 8:35 AM) BODY FLUIDS Clarity BF Moderate Cloudy Clear 11/25 [facility] *ABN* [place] (11/25/17 5:24 PM) BODY FLUIDS Color BF Dark Yellow Colorless 11/25 [facility] (11/25/17 5:24 PM) [place] BODY FLUIDS CellCnt BF Synovial 11/25 [facility] (11/25/17 5:24 PM) [place] BODY FLUIDS Macrophage 5 % 11/25 [facility] [place] [address] /mm3 11/25 [facility] [place] [address] /mm3 11/25 [facility] BODY FLUIDS Lymph BF 1 % 11/25 [facility] BODY FLUIDS Segs BF 94 % 11/25 [facility] BODY FLUIDS Crystal BF Synovial 11/25 [facility] /2017 [facility] (11/25/17 5:24 PM) [place] BODY FLUIDS Crystal BF Gillespie Na Urate Negative 11/25 [facility] *ABN* [place] (11/25/17 5:24 PM) Hand 3 Hand 3 views EXAM: RIGHT HAND 3 VIEWS 11/25 - [facility] views DX - Medical EXAM: LEFT HAND 3 VIEWS Center Read by: Terell Sanchez MD Dictated Date/time: 11/26/17 07:24 DATE: 11/25/2017 6:02 PM COMMAND CENTER OFFICER Electronically Signed by: Terell Sanchez MD 11/26/17 [...] EXAM: RIGHT FOOT 3 VIEWS 11/25 - [facility] DX /2017 - Medical EXAM: LEFT FOOT 3 VIEWS Center Read by: Terell Sanchez MD Dictated Date/time: 11/26/17 07:30 DATE: 11/25/2017 6:02 PM COMMAND CENTER OFFICER Electronically Signed by: Terell Sanchez MD 11/26/17 [...] 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 Foot series Foot series EXAM: RIGHT FOOT 3 VIEWS 11/25 - [facility] /2017 - Medical EXAM: LEFT FOOT 3 VIEWS Center Read by: Terell Sanchez MD Dictated Date/time: 11/26/17 07:30 DATE: 11/25/2017 6:02 PM COMMAND CENTER OFFICER Electronically Signed by: Terell Sanchez MD 11/26/17 [...] 3 VIEWS 11/25 - [place] views DX - Medical EXAM: LEFT HAND 3 VIEWS Center Read by: Terell Sanchez MD Dictated Date/time: 11/26/17 07:24 DATE: 11/25/2017 6:02 PM COMMAND CENTER OFFICER Electronically Signed by: Terell Sanchez MD 11/26/17 [...] with associated chondrocalcinosis. * Bilateral wrist chondrocalcinosis. HEMATOLOGY Eosinophils 0.1 % 0.0 - 4.0 11/[address] HEMATOLOGY Basophils 0.3 % 0.0 - 1.0 11/[address] HEMATOLOGY Basophils # 0.1 K/CMM 0.0 - 0.2 11/[address] HEMATOLOGY Hypochrom 1+ None Seen 11/[address] (11/25/17 5:26 AM) [place] Knee 3 Knee 3 views EXAM: XR RIGHT KNEE 3 VIEWS 11/24 - [facility] views DX DX /2017 - [facility] DATE: 11/24/2017 10:36 AM COMMAND CENTER OFFICER Read by: Davonte Ramires MD Dictated Date/time: [...] Skull Base to Mid Thigh 11/24 - [facility] Tumor imaging-skul /2018 - Medical imaging-sku [facility] This report was dictated by a Glue Machine Operator/Fellow. I have personally reviewed the images as Center [facility] well as the Resident's interpretation and agree with the findings. DATE: 11/24/2017 10:48 AM COMMAND CENTER OFFICER Read by: Fela Lewis MD Resident: Fela [...] Eosinophils 0.1 % 0.0 - 4.0 11/[address] HEMATOLOGY Basophils # 0.1 K/CMM 0.0 - 0.2 11/[address] HEMATOLOGY Basophils 0.4 % 0.0 - 1.0 11/[address] CHEM PANEL B/C Ratio 26 6 - 25 11/[address] CHEM PANEL A/G Ratio 0.6 0.7 - 1.6 11/[address] CHEM PANEL Globulin 5.2 g/dL 2.7 - 4.2 11/[address] CHEM PANEL Albumin Lvl 2.9 g/dL 3.5 - 5.0 11/[address] CHEM PANEL ALT 11 unit/L 0 - 65 11/[address] CHEM PANEL AST 16 unit/L 0 - 37 11/[address] CHEM PANEL Alk Phos 71 unit/L 39 - 136 11/[address] CHEM PANEL Total 8.1 g/dL 6.4 - 8.4 11/[address] CHEM PANEL Bili Total 0.6 mg/dL 0.2 - 1.3 11/[address] HEMATOLOGY Eosinophils 0.3 K/CMM 0.0 - 0.5 11/[address] CHEM PANEL Bili Total 0.8 mg/dL 0.2 - 1.3 11/[address] CHEM PANEL Albumin Lvl 2.7 g/dL 3.5 - 5.0 11/[address] CHEM PANEL Alk Phos 65 unit/L 39 - 136 11/[address] CHEM PANEL AST 24 unit/L 0 - 37 11/[address] CHEM PANEL B/C Ratio 24 6 - 25 11/[address] CHEM PANEL ALT 7 unit/L 0 - 65 11/[address] CHEM PANEL A/G Ratio 0.6 0.7 - 1.6 11/[address] CHEM PANEL Total 7.3 g/dL 6.4 - 8.4 11/[address] CHEM PANEL Globulin 4.6 g/dL 2.7 - 4.2 11/[address] CHEM PANEL Magnesium 2.5 mg/dL 1.8 - 2.4 11/[address] PARATHYROID Ca Ion WB 1.17 1. - 11/21 [facility] PROFILE mMol/L 1. [facility] PARATHYROID Ca Norm WB 1.19 1. - 11/21 [facility] PROFILE mMol/L 1. [facility] HEMATOLOGY Blasts 0.0 % <=0.0 % 11/[address] PARATHYROID Ca Norm WB 1.22 1.05 - 11/21 [facility] PROFILE mMol/L 1. [facility] PARATHYROID Ca Ion WB 1.21 1.05 - 11/21 [facility] PROFILE mMol/L 1. [facility] CARDIAC Total CK 20 unit/L 12 - 191 11/21 [facility] ENZYMES [address] CHEM PANEL LDH 344 unit/L 98 - 192 11/[address] CHEM PANEL Plasma 10 mg/dL 0 - 10 11/21 [facility] Hemoglobin [address] CHEM PANEL A/G Ratio 0.6 0.7 - 1.6 11/[address] CHEM PANEL Globulin 4.7 g/dL 2.7 - 4.2 11/[address] CHEM PANEL AST 17 unit/L 0 - 37 11/[address] CHEM PANEL ALT 8 unit/L 0 - 65 11/[address] CHEM PANEL Albumin Lvl 2.8 g/dL 3.5 - 5.0 11/[address] CHEM PANEL Total 7.5 g/dL 6.4 - 8.4 11/21 [facility] Protein [address] CHEM PANEL Bili 0.6 mg/dL 0.0 - 1.0 11/21 [facility] Indirect [address] CHEM PANEL Bili Direct 0.3 mg/dL 0.0 - 0.3 11/[address] CHEM PANEL Bili Total 0.9 mg/dL 0.2 - 1.3 11/[address] CHEM PANEL Alk Phos 68 unit/L 39 - 136 11/[address] IMMUNOLOGY Haptoglobin 203 mg/dL 16 - 200 11/[address] URINE AND UA Sq Epi None Seen 11/21 [facility] STOOL [address] URINE AND UA <=1.0 0.1 - 1.0 11/21 [facility] STOOL Urobilinogen mg/dL /[address] [place] [address] URINE AND UA Bacteria Few /HPF None Seen 11/21 [facility] STOOL /HPF /[address] [place] [address] URINE AND UA Mucus Few /LPF None Seen 11/21 [facility] STOOL /LPF /[address] [place] [address] URINE AND UA Leuk Est Negative Negative 11/21 [facility] STOOL [address] (11/20/17 6:30 PM) [place] URINE AND UA RBC null 0 - 2 11/[address] URINE AND UA Bili Negative Negative 11/21 [facility] [address] [place] [address] *NA* [place] (11/20/17 6:30 PM) URINE AND UA Blood Negative Negative 11/21 [facility] (11/20/17 6:30 PM) [place] URINE AND UA Nitrite Negative Negative 11/21 [facility] (11/20/17 6:30 PM) [place] URINE AND UA WBC 1 /HPF 0 - 5 11/[address] URINE AND UA pH 5.0 5.0 - 8.0 11/[address] URINE AND UA Protein Negative Negative 11/21 [facility] STOOL mg/dL mg/dL [facility] URINE AND UA Ketones Negative Negative 11/21 [facility] mg/dL mg/dL [address] [place] [address] URINE AND UA Spec Grav 1.005 <=1.030 11/[address] URINE AND UA Color Light Yellow Yellow 11/21 [facility] Medical *NA* [place] (11/20/17 6:30 PM) URINE AND UA Turbidity Clear Clear 11/21 [facility] (11/20/17 6:30 PM) [place] URINE AND UA Glucose Negative Negative 11/21 [facility] mg/dL mg/dL [facility] URINE CHEM U Sodium 109 meq/L 11/[address] URINE CHEM U Protein null 11/[address] URINE CHEM U Creatinine 10.30 11/21 [facility] mg/dL [address] [place] [address] URINE CHEM U Prot/Creat null 11/[address] PARATHYROID Ca Ion WB 1.18 1.05 - 11/20 [facility] PROFILE mMol/L . [facility] PARATHYROID Ca Norm WB 1.18 1.05 - 11/20 [facility] PROFILE mMol/L . [facility] CARDIAC BNP 351 pg/mL <=100 11/20 [place] ENZYMES pg/mL /[address] [place] [address] HEMATOLOGY Blasts 16.0 % <=0.0 % 11/[address] HEMATOLOG[address] Tot Cell Ct 400 11/20 [facility] [address] [place] [address] Chest 1view Chest 1view EXAM: XR CHEST 1 VIEW 11/20 - [facility] DX DX - [facility] Center DATE: 11/20/2017 4:05 AM COMMAND CENTER OFFICER Read by: Meredith Jaimes MD Dictated Date/time: [...] Acid 1.1 mMol/L 0.5 - 2.2 11/20 [facility] Lvl [facility] BLOOD BANK RBC product Product available 11/20 [facility] (11/19/17 6:49 PM) [place] BLOOD BANK ABO/Rh O NEG 11/20 [facility] RESULTS [facility] BLOOD BANK Antibody Negative 11/20 [facility] RESULTS Scrn [facility] (11/19/17 6:24 PM) [place] CARDIAC Troponin-I null 0.00 - 11/20 [facility] ENZYMES 0. [facility] HEMATOLOGY Tot Cell Ct 200 11/20 [facility] /2017 [facility] HEMATOLOGY Blasts 25.0 % <=0.0 % 11/20 Result Comment: Medical Previuosely Center blast was released HEMATOLOGY D-Dimer 1.72 ug/mL 11/20 [facility] FEU [facility] Chest 1view Chest 1view EXAM: XR CHEST 1 VIEW 11/19 - [facility] DX DX - [facility] This report was dictated by a Glue Machine Operator/Fellow. I have personally reviewed the images as Center well as the Resident's interpretation and agree with the findings. DATE: 11/19/2017 5:19 PM COMMAND CENTER OFFICER Read by: Kike Lea MD Resident: Kike [...] Phosphorus 2.7 mg/dL 2.5 - 4.5 11/[address] CHEM PANEL Magnesium 1.6 mg/dL 1.8 - 2.4 11/02 [facility] [place] [address] ELECTROLYTE AGAP 16.5 meq/L 10.0 - 11/02 [facility] [address] [place] [address] ELECTROLYTE eGFR 44 11/02 Result Comment: The eGFR is calculated using the CKD-EPI formula. In most young, healthy individuals the eGFR will be >90 mL/ min/1.73m2. The eGFR declines with age. An eGFR of 60-89 may be normal in [facility] mL/min/1.7 /2017 some populations, particularly the elderly, for whom the CKD-EPI formula has not been extensively validated. Use of the eGFR is not recommended in the following populations: [address] Individuals with unstable creatinine concentrations, including [...] ELECTROLYTE Creatinine 1.18 mg/dL 0.50 - 11/02 [facility] Lvl 1.40 [facility] ELECTROLYTE Sodium Lvl 137 meq/L 135 - 145 11/[address] ELECTROLYTE Chloride Lvl 103 meq/L 95 - 109 11/02 [facility] S [facility] ELECTROLYTE CO2 22 meq/L 24 - 32 11/02 [facility]2017 [facility] ELECTROLYTE Glucose Lvl 155 mg/dL 70 - 99 11/[address] ELECTROLYTE BUN 28 mg/dL 7 - 22 11/[address] ELECTROLYTE Potassium 4.5 meq/L 3.5 - 5.1 11/02 [facility] Lvl [facility] ELECTROLYTE Calcium Lvl 8.8 mg/dL 8.5 - 10.5 11/02 [facility]2017 [facility] HEMATOLOGY INR 1.06 0.85 - 11/02 [facility] 1.17 [facility] HEMATOLOGY PT 13.8 s 12.0 - 11/02 [facility] 14.7 [facility] HEMATOLOGY PTT 34.2 s 22.9 - 11/02 [facility] 35.8 [facility] HEMATOLOGY RBC 2.75 M/CMM 4.20 - 11/02 [facility] 5.40 [facility] HEMATOLOGY MCV 95.5 fL 80.0 - 11/02 [facility] 98.0 [facility] HEMATOLOGY MCH 31.2 pg 27.0 - 11/02 [facility] 31.0 [facility] HEMATOLOGY Hgb 8.6 g/dL 12.0 - 11/02 [facility] 16.0 [facility] HEMATOLOGY WBC 33.2 K/CMM 3.7 - 10.4 11/[address] HEMATOLOGY Hct 26.3 % 36.0 - 11/02 [facility] 48.0 [facility] HEMATOLOGY MPV 8.9 fL 7.4 - 10.4 11/[address] HEMATOLOGY Platelet 90 K/CMM 133 - 450 11/[address] HEMATOLOGY RDW 19.2 % 11.5 - 11/02 [facility] 14.5 [facility] HEMATOLOGY MCHC 32.7 g/dL 32.0 - 11/02 [facility] 36.0 [facility] HEMATOLOGY Tot Cell Ct 100 11/[address] HEMATOLOGY Plt Morph Normal 11/02 [facility] (11/02/17 4:34 AM) [place] HEMATOLOGY RBC Morph Normal 11/02 [facility] (11/02/17 4:34 AM) [place] HEMATOLOGY Atypical 0.0 % <=0.0 % 11/02 [facility] Lymphs [facility] HEMATOLOGY Monocytes 2.0 % 2.0 - 12.0 11/02 [facility] HEMATOLOGY Lymphocytes 95.0 % 20.0 - 11/02 [facility] 40.0 [facility] HEMATOLOGY Bands 0.0 % 0.0 - 11.0 11/[address] HEMATOLOGY Segs 3.0 % 45.0 - 11/02 [facility] 75.0 [facility] HEMATOLOGY Monocytes # 0.7 K/CMM 0.0 - 0.8 11/[address] [place] [address] HEMATOLOGY Segs-Bands # 1.0 K/CMM 1.5 - 8.1 11/[address] HEMATOLOGY Lymphocytes 31.5 K/CMM 1.0 - 5.5 11/02 [facility] /2017 [facility] HEMATOLOGY Smudge Moderate None Seen 11/02 Medical ABN* Center (11/02/17 4:34 AM) HEMATOLOGY Hct 23.2 % 36.0 - 11/02 [facility] 48.0 [facility] HEMATOLOGY Hgb 7.7 g/dL 12.0 - 11/02 [facility] 16.0 [facility] BLOOD BANK RBC product Product available 11/01 [facility] (11/01/17 7:10 AM) Center CARDIAC BNP 384 pg/mL <=100 11/01 [facility] ENZYMES pg/mL [facility] CHEM PANEL Magnesium 2.2 mg/dL 1.8 - 2.4 11/01 [facility] Lvl [facility] CHEM PANEL Globulin 4.5 g/dL 2.7 - 4.2 11/[address] CHEM PANEL A/G Ratio 0.6 0.7 - 1.6 11/[address] CHEM PANEL B/C Ratio 22 6 - 25 11/[address] CHEM PANEL AGAP 17.7 meq/L 10.0 - 11/01 [facility] 20.0 [facility] CHEM PANEL eGFR 54 11/01 Result Comment: The eGFR is calculated using the CKD-EPI formula. In most young, healthy individuals the eGFR will be >90 mL/ min/1.73m2. The eGFR declines with age. An eGFR of 60-89 may be normal in [facility] mL/min/1. some populations, particularly the elderly, for whom the CKD-EPI formula has not been extensively validated. Use of the eGFR is not recommended in the following populations: [address] Individuals with unstable creatinine concentrations, including [...] Total 0.5 mg/dL 0.2 - 1.3 11/[address] CHEM PANEL Alk Phos 58 unit/L 39 - 136 11/[address] CHEM PANEL AST 19 unit/L 0 - 37 11/[address] CHEM PANEL Glucose Lvl 143 mg/dL 70 - 99 11/[address] CHEM PANEL Total 7.2 g/dL 6.4 - 8.4 11/01 [facility] Protein [address] [place] [address] CHEM PANEL Calcium Lvl 8.9 mg/dL 8.5 - 10.5 11/[address] CHEM PANEL CO2 20 meq/L 24 - 32 11/[address] CHEM PANEL Albumin Lvl 2.7 g/dL 3.5 - 5.0 11/[address] CHEM PANEL ALT 7 unit/L 0 - 65 11/[address] CHEM PANEL Creatinine 0.99 mg/dL 0.50 - 11/01 [facility] Lvl 1.40 [facility] CHEM PANEL BUN 22 mg/dL 7 - 22 11/[address] CHEM PANEL Sodium Lvl 142 meq/L 135 - 145 11/[address] CHEM PANEL Chloride Lvl 109 meq/L 95 - 109 11/[address] CHEM PANEL Potassium 4.7 meq/L 3.5 - 5.1 11/01 [facility] [address] [place] [address] CHEM PANEL Phosphorus 3.7 mg/dL 2.5 - 4.5 11/01 [address] [address] HEMATOLOGY INR 1.07 0.85 - 11/01 [place] 1.17 [facility] HEMATOLOGY PTT 32.8 s 22.9 - 11/01 [place] 35.8 /2017 [facility] HEMATOLOGY PT 13.9 s 12.0 - 11/01 [place] 14.7 /2017 [facility] HEMATOLOGY Platelet 90 K/CMM 133 - 450 11/01 [facility] HEMATOLOGY WBC 26.3 K/CMM 3.7 - 10.4 11/01 [facility] HEMATOLOGY Hgb 6.9 g/dL 12.0 - 11/01 Result [facility] 16.0 Comment: Medical Critical [facility] Result(s) called to KIRA CRAWFORD at 11/01/2017 03:48 by AAA. Read back OK. HEMATOLOGY RBC 2.23 M/CMM 4.20 - 11/01 [place] 5.40 /2017 [facility] HEMATOLOGY MCH 30.9 pg 27.0 - 11/01 [facility] 31.0 [facility] HEMATOLOGY RDW 19.2 % 11.5 - 11/01 [facility] 14.5 [facility] HEMATOLOGY MCHC 32.3 g/dL 32.0 - 11/01 [facility] 36.0 [facility] HEMATOLOGY MCV 95.6 fL 80.0 - 11/01 [facility] 98.0 [facility] HEMATOLOGY Hct 21.3 % 36.0 - 11/01 [place] 48.0 [facility] HEMATOLOGY MPV 9.0 fL 7.4 - 10.4 11/[address] [place] [address] HEMATOLOGY Lymphocytes 23.7 K/CMM 1.0 - 5.5 11/01 [place] # /2017 [facility] HEMATOLOGY Segs-Bands # 2.4 K/CMM 1.5 - 8.1 11/[address] HEMATOLOGY Segs 9.0 % 45.0 - 11/01 [facility] 75.0 [facility] HEMATOLOGY Monocytes # 0.3 K/CMM 0.0 - 0.8 11/01 [facility] HEMATOLOGY Bands 0.0 % 0.0 - 11.0 11/[address] [place] [address] HEMATOLOGY Monocytes 1.0 % 2.0 - 12.0 11/01 [facility] [address] [place] [address] HEMATOLOGY Lymphocytes 90.0 % 20.0 - 11/01 [facility] 40.0 2018 [facility] HEMATOLOGY Atypical 0.0 % <=0.0 % 11/01 [facility] Lymphs [facility] HEMATOLOGY Smudge Moderate None [facility] (11/01/17 2:35 AM) PARATHYROID Ca Ion WB 1.24 1.05 - 11/01 [facility] PROFILE mMol/L 1. [facility] PARATHYROID Ca Norm WB 1.23 1.05 - 11/01 [facility] PROFILE mMol/L 1. [facility] ELECTROLYTE Potassium 4.5 meq/L 3.5 - 5.1 11/[address] CHEM PANEL Phosphorus 5.1 mg/dL 2.5 - 4.5 10/[address] CHEM PANEL Magnesium 1.2 mg/dL 1.8 - 2.4 10/31 [facility] [address] [place] [address] ELECTROLYTE AGAP 15.6 meq/L 10.0 - 10/31 [facility] 20.0 [facility] ELECTROLYTE eGFR 41 10/31 Result Comment: The eGFR is calculated using the CKD-EPI formula. In most young, healthy individuals the eGFR will be >90 mL/ min/1.73m2. The eGFR declines with age. An eGFR of 60-89 may be normal in [facility] mL/min/1. some populations, particularly the elderly, for whom the CKD-EPI formula has not been extensively validated. Use of the eGFR is not recommended in the following populations: [address] Individuals with unstable creatinine concentrations, including [...] ELECTROLYTE Creatinine 1.24 mg/dL 0.50 - 10/31 [facility] Lvl 1.40 [facility] ELECTROLYTE Glucose Lvl 190 mg/dL 70 - 99 10/[address] ELECTROLYTE BUN 23 mg/dL 7 - 22 10/[address] ELECTROLYTE Sodium Lvl 138 meq/L 135 - 145 10/[address] ELECTROLYTE Chloride Lvl 104 meq/L 95 - 109 10/[address] ELECTROLYTE CO2 22 meq/L 24 - 32 10/[address] ELECTROLYTE Calcium Lvl 8.4 mg/dL 8.5 - 10.5 10/[address] HEMATOLOGY MPV 8.9 fL 7.4 - 10.4 10/31 [facility] HEMATOLOGY RDW 19.3 % 11.5 - 10/31 14.5 [facility] HEMATOLOGY Platelet 78 K/CMM 133 - 450 10/31 [facility] HEMATOLOGY MCH 30.7 pg 27.0 - 10/31 31.0 [facility] HEMATOLOGY MCV 95.6 fL 80.0 - 10/31 [place] 98.0 /2017 [facility] HEMATOLOGY MCHC 32.1 g/dL 32.0 - 10/31 36.0 [facility] HEMATOLOGY WBC 19.6 K/CMM 3.7 - 10.4 10/31 [facility] HEMATOLOGY RBC 2.23 M/CMM 4.20 - 10/31 5.40 [facility] HEMATOLOGY Monocytes # 0.1 K/CMM 0.0 - 0.8 10/31 [facility] HEMATOLOGY Lymphocytes 18.6 K/CMM 1.0 - 5.5 10/31 [place] # /2017 [facility] HEMATOLOGY Basophils 0.2 % 0.0 - 1.0 10/31 [facility] HEMATOLOGY Segs-Bands # 0.8 K/CMM 1.5 - 8.1 10/31 [facility] HEMATOLOGY Eosinophils 0.2 % 0.0 - 4.0 10/31 [facility] HEMATOLOGY Monocytes 0.5 % 2.0 - 12.0 10/[address] [place] [address] HEMATOLOGY Lymphocytes 95.1 % 20.0 - 05 40.0 [facility] HEMATOLOGY Segs 4.0 % 45.0 - 05 [place] 75.0 [facility] HEMATOLOGY INR 1.22 0.85 - 10/31 [place] 1.17 [facility] HEMATOLOGY PT 15.5 s 12.0 - 05 [place] 14.7 [facility] HEMATOLOGY PTT 33.5 s 22.9 - 05 [place] 35.8 [facility] PARATHYROID Ca Norm WB 1.16 1.05 - 10/31 [facility] PROFILE mMol/L 1. [facility] PARATHYROID Ca Ion WB 1.20 1.05 - 10/31 [facility] PROFILE mMol/L 1. [facility] BLOOD BANK FFP product Product available 10/31 [facility] (10/31/17 1:54 PM) [place] BLOOD BANK RBC product Product available 10/31 [facility] (10/31/17 1:54 PM) [place] Chest 1view Chest 1view EXAM: XR CHEST 1 VIEW 10/31 - [facility] DX DX - [facility] DATE: 10/31/2017 4:56 PM COMMAND CENTER OFFICER Read by: Davon Florez MD Dictated Date/time: [...] structures. BLOOD BANK ABO/Rh O NEG 10/31 [facility] BLOOD BANK Antibody Negative 10/31 [facility] RESULTS Scrn [facility] (10/31/17 5:29 AM) [place] CHEM PANEL A/G Ratio 0.7 0.7 - 1.6 10/31 [facility]2017 [facility] CHEM PANEL Globulin 4.7 g/dL 2.7 - 4.2 10/31 [facility] CHEM PANEL Albumin Lvl 3.1 g/dL 3.5 - 5.0 10/31 [facility] CHEM PANEL Total 7.8 g/dL 6.4 - 8.4 10/31 [facility] CHEM PANEL AST 17 unit/L 0 - 37 10/31 [facility]2017 [facility] CHEM PANEL ALT 8 unit/L 0 - 65 10/31 [facility]2017 [facility] CHEM PANEL B/C Ratio 18 6 - 25 10/[address] CHEM PANEL Bili Total 0.6 mg/dL 0.2 - 1.3 10/31 [facility]2017 [facility] CHEM PANEL Alk Phos 65 unit/L 39 - 136 10/[address] HEMATOLOGY Smudge Moderate None Seen 10/[address] *ABN* [place] (10/31/17 5:29 AM) HEMATOLOGY Anisocyte 1+ None Seen 10/[address] [place] (10/31/17 5:29 AM) HEMATOLOGY Basophils 0.1 % 0.0 - 1.0 10/[address] HEMATOLOGY Eosinophils 0.2 % 0.0 - 4.0 10/[address] CHEM PANEL AST 15 unit/L 0 - 37 10/[address] CHEM PANEL Bili Total 0.5 mg/dL 0.2 - 1.3 10/[address] CHEM PANEL Alk Phos 68 unit/L 39 - 136 10/[address] CHEM PANEL ALT 8 unit/L 0 - 65 10/[address] CHEM PANEL Albumin Lvl 3.0 g/dL 3.5 - 5.0 10/[address] CHEM PANEL Total 7.8 g/dL 6.4 - 8.4 10/30 [facility] Protein [address] CHEM PANEL A/G Ratio 0.6 0.7 - 1.6 10/[address] CHEM PANEL Globulin 4.8 g/dL 2.7 - 4.2 10/[address] CHEM PANEL B/C Ratio 18 6 - 25 10/[address] URINE AND UA Sq Epi None Seen 10/[address] URINE AND UA Trans Epi RARE <=0 10/[address] URINE AND UA Nitrite Negative Negative 10/[address] (10/29/17 9:10 PM) [place] URINE AND UA 8.0 mg/dL 0.1 - 1.0 10/30 [facility] Urobilinogen /[address] [place] [address] URINE AND UA Blood Negative Negative 10/[address] (10/29/17 9:10 PM) [place] URINE AND UA Bili Negative Negative 10/30 [address] (10/29/17 9:10 PM) URINE AND UA Ketones Negative Negative 10/30 [facility] mg/dL mg/dL /[address] [place] [address] URINE AND UA Bacteria Occasional None Seen 10/30 [facility] STOOL /HPF /HPF /[address] [place] [address] URINE AND UA RBC null 0 - 2 10/[address] URINE AND UA WBC 2 /HPF 0 - 5 10/[address] URINE AND UA Hyal Cast 3 /LPF 0 - 2 10/[address] URINE AND UA Mucus Few /LPF None Seen 10/30 [facility] STOOL /LPF /[address] [place] [address] URINE AND UA Protein 10 mg/dL Negative 10/30 [facility] STOOL mg/dL /[address] [place] [address] URINE AND UA pH 6.0 5.0 - 8.0 10/[address] URINE AND UA Spec Grav 1.013 <=1.030 10/[address] URINE AND UA Turbidity Clear Clear 10/[address] (10/29/17 9:10 PM) [place] URINE AND UA Leuk Est Moderate Negative 10/[address] *ABN* [place] (10/29/17 9:10 PM) URINE AND UA Color Yellow Yellow 10/30 [facility] [address] [place], [place] [address]NA* Center (10/29/17 9:10 PM) URINE AND UA Glucose Negative Negative 10/30 [facility] mg/dL mg/dL [address] [place] [address] CARDIAC BNP 223 pg/mL <=100 10/29 [facility] ENZYMES pg/mL /[address] [place] [address] HEMATOLOGY Bands 0.0 % 0.0 - 11.0 10/[address] HEMATOLOGY Atypical 11.0 % <=0.0 % 10/29 [facility] Lymphs /[address] [place] [address] HEMATOLOGY Anisocyte 1+ None Seen 10/29 [facility] [address] [place] [address] *ABN* Center (10/29/17 5:38 PM) HEMATOLOGY Eosinophils 0.0 K/CMM 0.0 - 0.5 10/[address] HEMATOLOGY Basophils 0.0 % 0.0 - 1.0 10/[address] HEMATOLOGY Eosinophils 0.0 % 0.0 - 4.0 10/[address] HEMATOLOGY Blasts 3.0 % <=0.0 % 10/[address] HEMATOLOGY Basophils # 0.0 K/CMM 0.0 - 0.2 10/[address] Chest 1view Chest 1view EXAM: XR CHEST 1 VIEW 10/29 - [facility] DX DX - Medical This report was dictated by a Glue Machine Operator/Fellow. I have personally reviewed the images as Center well as the Resident's interpretation and agree with the findings. DATE: 10/29/2017 8:46 PM COMMAND CENTER OFFICER Read by: Humberto Roche MD Resident: Humberto [...] POC 1.3 mg/dL 0.5 - 1.4 10/21 [facility] Creatinine /2016 [facility] CHEM PANEL eGFR 39 10/21 Result Comment: The eGFR is calculated using the CKD-EPI formula. In most young, healthy individuals the eGFR will be >90 mL/ min/1.73m2. The eGFR declines with age. An eGFR of 60-89 may be normal in [facility] mL/min/1.7 /2017 some populations, particularly the elderly, for whom the CKD-EPI formula has not been extensively validated. Use of the eGFR is not recommended in the following populations: [address] Individuals with unstable creatinine concentrations, including [...] Heart/lua EXAM: CARDIAC COMPUTED TOMOGRAPHY ANGIOGRAPHY - [facility] estefany art ry art TAVR /2016 - Medical TAVR CTA CTA Center DATE: 10/21/2017 Read by: Nasir Katz MD Dictated Date/time: 10/21/17 12:49 Electronically Signed by: Nasir Katz MD 10/21/17 12:53 FINAL REPORT INDICATION: Aortic stenosis. COMPARISON: None TECHNIQUE: Contrast imaging was performed on a [employer] [address] scanner utilizing a [...] the presence of in stent restenosis or cabazon flow-limiting stenosis in this vessel. LCx: Normal [...] lower limit of normal. Ejection Fraction: 51% QKK=256 cc ESV=72 cc SV=74 cc Other: AICD leads noted in the right heart chambers. Lung quijano to the extent visualized in limited study: Please see radiologist interpretation for extracardiac findings. IMPRESSION: Aortic valve disease. Coronary artery disease status post PCI. Chest/Abd/P Chest/Abd/Pe EXAM: CTA CHEST WITH AND WITHOUT CONTRAST 10/21 [facility] TAVR lvis TAVR /2016 - Medical CTA CTA EXAM: CTA ABDOMEN AND PELVIS WITH AND WITHOUT CONTRAST Center Read by: Pascual Meredith MD Dictated Date/time: 10/21/17 11:56 DATE: 10/21/2017 7:24 AM COMMAND CENTER OFFICER Electronically Signed by: Pascual Meredith MD 10/21/17 14:01 FINAL REPORT INDICATION:82 yearsFemale - Aortic Stenosis COMPARISON: EXAM: CTA CHEST WITH AND WITHOUT CONTRAST EXAM: CTA ABDOMEN AND PELVIS WITH AND WITHOUT CONTRAST DATE: 10/21/2017 7:24 AM COMMAND CENTER OFFICER INDICATION:82 yearsFemale - Aortic Stenosis COMPARISON: None. [...] after dictation. BLOOD BANK Antibody Negative 05/29 [facility] RESULTS Scrn [facility] (05/29/16 6:13 AM) [place] BLOOD BANK ABO/Rh O NEG 05/29 [facility] RESULTS [facility] CHEM PANEL Magnesium 1.8 mg/dL 1.8 - 2.4 05/29 [facility] Lvl /2015 [facility] CHEM PANEL eGFR 26 05/29 Result Comment: The eGFR is calculated using the CKD-EPI formula. In most young, healthy individuals the eGFR will be >90 mL/ min/1.73m2. The eGFR declines with age. An eGFR of 60-89 may be normal in [facility] mL/min/1.7 /2016 some populations, particularly the elderly, for whom the CKD-EPI formula has not been extensively validated. Use of the eGFR is not recommended in the following populations: [address] Individuals with unstable creatinine concentrations, including [...] Lvl 9.3 mg/dL 8.5 - 10.5 05/29 [facility] CHEM PANEL Creatinine 1.83 mg/dL 0.50 - 05/29 [facility] Lvl 1.40 /2015 [facility] CHEM PANEL Glucose Lvl 121 mg/dL 70 - 99 05/29 /2015 [facility] CHEM PANEL Chloride Lvl 104 meq/L 95 - 109 05/29 [facility] CHEM PANEL Potassium 4.2 meq/L 3.5 - 5.1 05/29 [facility] Lvl /2015 [facility] CHEM PANEL CO2 26 meq/L 24 - 32 05/29 /2015 [facility] CHEM PANEL Sodium Lvl 139 meq/L 135 - 145 [facility] CHEM PANEL BUN 24 mg/dL 7 - 22 05/29 [facility] CHEM PANEL AGAP 13.2 meq/L 10.0 - 05/29 20.0 [facility] HEMATOLOGY Hgb 12.1 g/dL 12.0 - 05/29 16.0 /2015 [facility] HEMATOLOGY RBC 4.30 M/CMM 4.20 - 05/29 5.40 /2015 [facility] HEMATOLOGY Hct 36.9 % 36.0 - 05/29 [place] 48.0 /2015 [facility] HEMATOLOGY WBC 16.5 K/CMM 3.7 - 10.4 05/29 [facility] HEMATOLOGY RDW 15.7 % 11.5 - 08 [facility] 14.5 [facility] HEMATOLOGY MCHC 32.8 g/dL 32.0 - 05/29 [facility] 36.0 [facility] HEMATOLOGY MPV 8.8 fL 7.4 - 10.4 05/29 [facility] HEMATOLOGY Platelet 96 K/CMM 133 - 450 05/29 [facility] HEMATOLOGY MCH 28.2 pg 27.0 - 05/29 [place] 31.0 /2015 [facility] HEMATOLOGY MCV 85.9 fL 80.0 - 05/29 98.0 [facility] HEMATOLOGY PTT 30.9 s 22.9 - 05/29 [place] 35.8 /2016 [facility] HEMATOLOGY PT 14.4 s 12.0 - 05/29 [facility] 14.7 [facility] HEMATOLOGY INR 1.09 0.85 - 05/29 1.17 [facility] HEMATOLOGY Segs-Bands # 3.0 K/CMM 1.5 - 8.1 05/29 [facility] HEMATOLOGY Basophils 0.8 % 0.0 - 1.0 05/29 [facility] HEMATOLOGY Eosinophils 1.2 % 0.0 - 4.0 05/29 [facility] HEMATOLOGY Lymphocytes 12.7 K/CMM 1.0 - 5.5 05/29 [facility] HEMATOLOGY Basophils # 0.1 K/CMM 0.0 - 0.2 05/29 [facility] HEMATOLOGY Eosinophils 0.2 K/CMM 0.0 - 0.5 05/29 [facility] HEMATOLOGY Monocytes # 0.5 K/CMM 0.0 - 0.8 05/29 [facility] HEMATOLOGY Segs 18.3 % 45.0 - 05/29 [facility] 75.0 /2015 [facility] HEMATOLOGY Monocytes 2.9 % 2.0 - 12.0 05/29 [facility] HEMATOLOGY Lymphocytes 76.8 % 20.0 - 05/29 [facility] 40.0 /2015 [facility] Spine Spine lumbar EXAM: XR LUMBAR SPINE 2 VIEWS 04/20 - OPID lumbar 2 or 2 or 3 views /2013 - [place] 3 views DATE: 2014-04-20 0953 hours Read [...] 1.6 mg/dL 1.8 - 2.4 01/20 LOW [facility] Lvl /2012 [facility] CHEMISTRY eGFR 44 01/20 NA 1Result Comment: The eGFR is calculated using the CKD-EPI formula. In most young, healthy individuals the eGFR will be > 90 mL/min/1.73m2. The eGFR declines with age. An eGFR of 60-89 may be normal in [facility] mL/min/1.7 some populations, particularly the elderly, for whom the CKD-EPI formula has not been extensively validated. Use of the eGFR is not recommended in the following populations: Medical [facility] Center Individuals with unstable creatinine concentrations, including [...] AGAP 8.5 meq/L 10.0 - 01/20 LOW [facility] 20.0 [facility] CHEMISTRY Calcium Lvl 9.4 mg/dL 8.5 - 10.5 01/20 Normal [facility] CHEMISTRY Chloride Lvl 106 meq/L 95 - 109 01/20 Normal [facility] CHEMISTRY CO2 28 meq/L 24 - 32 01/20 Normal [facility] CHEMISTRY Sodium Lvl 138 meq/L 135 - 145 01/20 Normal [facility] CHEMISTRY Potassium 4.5 meq/L 3.5 - 5.1 01/20 Normal [facility] [place] [facility] CHEMISTRY Glucose Lvl 182 mg/dL 70 - 99 01/20 [place] 3Interpretive Data: Adult reference range values reflect the clinical guidelines of the [place] [employer]. [facility] CHEMISTRY BUN 18 mg/dL 7 - 22 01/20 Normal [facility] CHEMISTRY Creatinine 1.2 mg/dL 0.5 - 1.4 01/20 Normal [facility] l [facility] HEMATOLOGY MCH 26.0 pg 27.0 - 01/20 LOW [facility] 31.0 [facility] HEMATOLOGY MCHC 31.9 g/dL 32.0 - 01/20 LOW [facility] 36. [facility] HEMATOLOGY RDW 16.8 % 11.5 - 01/20 [place] [facility] 14. [facility] HEMATOLOGY Hgb 12.5 g/dL 12.0 - 01/20 Normal [facility] 16.0 [facility] HEMATOLOGY Hct 39.2 % 36.0 - 01/20 Normal [facility] [place] 48.0 /2012 [facility] HEMATOLOGY MCV 81.6 fL 81.0 - 01/20 Normal [place] 99.0 /2012 Medical Center HEMATOLOGY WBC 7.0 K/CMM 3.7 - 10.4 01/20 Normal /2012 [facility] HEMATOLOGY RBC 4.81 M/CMM 4.20 - 01/20 Normal [place] 5.40 /2012 [facility] HEMATOLOGY Platelet 91 K/CMM 133 - 450 01/20 LOW /2012 [facility] HEMATOLOGY MPV 9.3 fL 7.4 - 10.4 01/20 Normal /2012 [facility] HEMATOLOGY Basophils 2.0 % 0.0 - 1.0 01/20 [place] /2012 [facility] HEMATOLOGY Lymphocytes 15.2 % 20.0 - 01/20 LOW [place] 40.0 [facility] HEMATOLOGY Segs 68.7 % 45.0 - 01/20 Normal [place] 75.0 /2012 [facility] HEMATOLOGY Eosinophils 3.2 % 0.0 - 4.0 01/20 Normal [facility] HEMATOLOGY Monocytes 10.9 % 2.0 - 12.0 01/20 Normal /2012 [facility] HEMATOLOGY Eosinophils 0.2 K/CMM 0.0 - 0.5 01/20 Normal [place] # /2012 [facility] HEMATOLOGY Monocytes # 0.8 K/CMM 0.0 - 0.8 01/20 Normal /2012 [facility] HEMATOLOGY Basophils # 0.1 K/CMM 0.0 - 0.2 01/20 Normal /2012 [facility] HEMATOLOGY Lymphocytes 1.1 K/CMM 1.0 - 5.5 01/20 Normal [place] # /2012 [facility] HEMATOLOGY Segs-Bands # 4.8 K/CMM 1.5 - 8.1 01/20 Normal /2012 [facility] BLOOD BANK Antibody Negative 01/19 Normal [facility] RESULTS Scrn Medical (01/19/2013 06:26:48) Center BLOOD BANK ABO/Rh O NEG 01/19 Unknown [place] RESULTS /2012 [facility] CHEMISTRY Magnesium 1.4 mg/dL 1.8 - 2.4 01/19 LOW [place] Lvl [facility] CHEMISTRY AGAP 10.1 meq/L 10.0 - 01/19 Normal [place] 20.0 [facility] CHEMISTRY eGFR 44 01/19 NA 2Result Comment: The eGFR is calculated using the CKD-EPI formula. In most young, healthy individuals the eGFR will be > 90 mL/min/1.73m2. The eGFR declines with age. An eGFR of 60-89 may be normal in [facility] mL/min/1. some populations, particularly the elderly, for whom the CKD-EPI formula has not been extensively validated. Use of the eGFR is not recommended in the following populations: [place] [address] Center Individuals with unstable creatinine concentrations, including [...] CHEMISTRY CO2 29 meq/L - 01/19 Normal [facility] CHEMISTRY Calcium Lvl 9.5 mg/dL 8.5 - 10.5 01/19 Normal [facility] CHEMISTRY BUN 22 mg/dL 7 - 01/19 Normal [facility] CHEMISTRY Sodium Lvl 141 meq/L 135 - 145 01/19 Normal [facility] CHEMISTRY Potassium 4.1 meq/L 3.5 - 5.1 01/19 Normal [facility] [place] [facility] CHEMISTRY Creatinine 1.2 mg/dL 0.5 - 1.4 01/19 Normal [facility] [place] [facility] CHEMISTRY Glucose Lvl 78 mg/dL 70 - 99 01/19 Normal 4Interpretive Data: Adult reference range values reflect the clinical guidelines of the [place] [employer]. [facility] CHEMISTRY Chloride Lvl 106 meq/L 95 - 109 01/19 Normal [facility] HEMATOLOGY PT 14.7 s 12.0 - 01/19 Normal [facility] 14. [facility] HEMATOLOGY PTT 32.3 s 22.9 - 01/19 Normal 6Interpretive [facility] 35.8 Data: Heparin [facility] Range: 57 - 92 Second[place] HEMATOLOGY INR 1.13 0.85 - 01/19 Normal 5Interpretive Data: RECOMMENDED RANGES FOR PROTIME INR: [facility] 11.12 2.0-3.0 for most medical and surgical thromboembolic states. Medical 2.5-3.5 for artificial heart valves and recurrent embolism. Center INR SHOULD BE USED ONLY FOR PATIENTS ON STABLE ANTICOAGULANT THERAPY. HEMATOLOGY RBC 4.97 M/CMM 4.20 - 01/19 Normal [place] 5.40 /2012 [facility] HEMATOLOGY Hgb 13.1 g/dL 12.0 - 01/19 Normal [place] 16.0 [facility] HEMATOLOGY Platelet 89 K/CMM 133 - 450 01/19 LOW [facility] HEMATOLOGY MPV 8.8 fL 7.4 - 10.4 01/19 Normal [facility] HEMATOLOGY MCV 81.8 fL 81.0 - 01/19 Normal [place] 99.0 /2012 [facility] HEMATOLOGY Hct 40.6 % 36.0 - 01/19 Normal [place] 48.0 [facility] HEMATOLOGY RDW 17.2 % 11.5 - 01/19 [facility] [place] 14. [facility] HEMATOLOGY MCH 26.3 pg 27.0 - 01/19 LOW [place] 31.0 [facility] HEMATOLOGY MCHC 32.2 g/dL 32.0 - 01/19 Normal [facility] 36.0 [facility] HEMATOLOGY WBC 5.7 K/CMM 3.7 - 10.4 01/19 Normal /2012 [facility] HEMATOLOGY Basophils 0.6 % 0.0 - 1.0 01/19 Normal [facility] HEMATOLOGY Monocytes 11.5 % 2.0 - 12.0 01/19 Normal [facility] HEMATOLOGY Eosinophils 3.1 % 0.0 - 4.0 01/19 Normal [facility] HEMATOLOGY Monocytes # 0.7 K/CMM 0.0 - 0.8 01/19 Normal [facility] HEMATOLOGY Lymphocytes 1.9 K/CMM 1.0 - 5.5 01/19 Normal [place] /2012 [facility] HEMATOLOGY Segs-Bands # 2.9 K/CMM 1.5 - 8.1 01/19 Normal [facility] HEMATOLOGY Eosinophils 0.2 K/CMM 0.0 - 0.5 01/19 Normal [place] [facility] HEMATOLOGY Lymphocytes 33.7 % 20.0 - 01/19 [facility] [place] 40.0 [facility] HEMATOLOGY Segs 51.1 % 45.0 - 01/19 Normal [place] 75.0 [facility] HEMATOLOGY PT 19.4 s 12.0 - 07/31 [facility] [place] 14.7 [facility] HEMATOLOGY INR 1.62 0.85 - 1005 [place] 7Interpretive Data: RECOMMENDED RANGES FOR PROTIME INR: [facility] 1. 2.0-3.0 for most medical and surgical thromboembolic states. Medical 2.5-3.5 for artificial heart valves and recurrent embolism. Center INR SHOULD BE USED ONLY FOR PATIENTS ON STABLE ANTICOAGULANT THERAPY. BEDSIDE Gluc POC 148 mg/dL 70 - 99 07/31 [place] 1Interpretive [facility] GLUCOSE Lifsc Data: Medical TESTING Center Upper Reportable Limit: 200 mg/dL. BEDSIDE Comment1 Notify 07/31 [facility] [place] GLUCOSE RN/ Medical TESTING Center BEDSIDE Gluc POC 192 mg/dL 70 - 99 07/31 [place] 2Interpretive [facility] GLUCOSE Lifsc Data: Medical TESTING Center Upper Reportable Limit: 200 mg/dL. BEDSIDE Comment1 Notify 07/31 [facility] GLUCOSE RN/ Medical TESTING Center BEDSIDE Gluc POC 106 mg/dL 70 - 99 07/30 [place] 3Interpretive [facility] GLUCOSE Lifsc Data: Medical TESTING Center Upper Reportable Limit: 200 mg/dL. HEMATOLOGY PB Smear Peripheral 07/30 NA [facility] blood Medical smear Center shows hypochromi c anemia with anisopoiki locytsosis , a few elliptocyt es, no increase in schistocyt es, slight polychroma nohemy, mild thrombocyt openia. Impression : (1) no evidence of microangio pathic hemolysis, (2) RBC morphology is sugestive of iron deficiency anemia vs. anemia of chronic disease. CPT: 56177 HEMATOLOGY Platelet 94 K/CMM 133 - 450 07/30 LOW [facility] HEMATOLOGY RDW 16.1 % 11.5 - 10 [facility] 14.5 [facility] HEMATOLOGY MPV 9.5 fL 7.4 - 10.4 07/30 Normal [facility] HEMATOLOGY RBC 3.68 M/CMM 4.20 - 10 [facility] 5.40 [facility] HEMATOLOGY WBC 5.4 K/CMM 3.7 - 10.4 07/30 Normal [facility] HEMATOLOGY MCV 89.6 fL 81.0 - 07/30 [facility] 99.0 [facility] HEMATOLOGY Hgb 11.0 g/dL 12.0 - 07/30 [facility] 16.0 /2011 [facility] HEMATOLOGY Hct 32.9 % 36.0 - 10 LOW [facility] 48.0 /2011 [facility] [place] HEMATOLOGY MCHC 33.5 g/dL 32.0 - 10 Normal [facility] 36.0 /2011 [facility] HEMATOLOGY MCH 30.0 pg 27.0 - 07/30 Normal [facility] 31.0 /2011 [facility] HEMATOLOGY Lymphocytes 19.2 % 20.0 - 10 LOW [facility] 40.0 /2011 [facility] HEMATOLOGY Segs 65.5 % 45.0 - 10 Normal [facility] 75.0 /2011 [facility] HEMATOLOGY Basophils 0.7 % 0.0 - 1.0 07/30 [facility] HEMATOLOGY Eosinophils 4.1 % 0.0 - 4.0 07/30 [facility] HEMATOLOGY Monocytes 10.5 % 2.0 - 12.0 07/30 [facility] HEMATOLOGY Monocytes # 0.6 K/CMM 0.0 - 0.8 07/30 [facility] HEMATOLOGY Lymphocytes 1.0 K/CMM 1.0 - 5.5 07/30 [facility] HEMATOLOGY Segs-Bands # 3.5 K/CMM 1.5 - 8.1 07/30 [facility] HEMATOLOGY Basophils # 0.0 K/CMM 0.0 - 0.2 07/30 [facility] HEMATOLOGY Eosinophils 0.2 K/CMM 0.0 - 0.5 07/30 [facility] HEMATOLOGY PT 18.3 s 12.0 - 07/30 [facility] 14.7 [facility] HEMATOLOGY INR 1.50 0.85 - 07/30 [place] 8Interpretive Data: RECOMMENDED RANGES FOR PROTIME INR: [facility] 1. 2.0-3.0 for most medical and surgical thromboembolic states. Medical 2.5-3.5 for artificial heart valves and recurrent embolism. Center INR SHOULD BE USED ONLY FOR PATIENTS ON STABLE ANTICOAGULANT THERAPY. BEDSIDE Comment1 Notify 07/30 NA [facility] GLUCOSE RN/MD Medical TESTING Center HEMATOLOGY Monocytes # 0.5 K/CMM 0.0 - 0.8 07/30 [facility] HEMATOLOGY Lymphocytes 1.0 K/CMM 1.0 - 5.5 07/30 [facility] HEMATOLOGY Segs-Bands # 2.4 K/CMM 1.5 - 8.1 07/30 Normal /2011 [facility] HEMATOLOGY Eosinophils 0.1 K/CMM 0.0 - 0.5 07/30 Normal [place] # /2011 [facility] Center HEMATOLOGY Basophils # 0.0 K/CMM 0.0 - 0.2 07/30 Normal /2011 [facility] HEMATOLOGY Lymphocytes 23.7 % 20.0 - 10 Normal [place] 40.0 /2011 [facility] HEMATOLOGY Monocytes 11.9 % 2.0 - 12.0 10 Normal /2011 [facility] HEMATOLOGY Eosinophils 3.2 % 0.0 - 4.0 07/30 Normal [facility] HEMATOLOGY Segs 60.6 % 45.0 - 10 Normal [place] 75.0 /2011 [facility] HEMATOLOGY Basophils 0.6 % 0.0 - 1.0 07/30 Normal [facility] HEMATOLOGY PTT 40.0 s 22.9 - 10 [place] 10Interpretiv [place] 35.8 /2011 e Data: [facility] Therapeutic Range: 57 - 92 [facility] HEMATOLOGY PT 19.4 s 12.0 - 10 HI [place] 14.7 [facility] [place] HEMATOLOGY INR 1.62 0.85 - 07/30 [place] 9Interpretive Data: RECOMMENDED RANGES FOR PROTIME INR: [facility] 1.17 2.0-3.0 for most medical and surgical thromboembolic states. Medical 2.5-3.5 for artificial heart valves and recurrent embolism. Center INR SHOULD BE USED ONLY FOR PATIENTS ON STABLE ANTICOAGULANT THERAPY. HEMATOLOGY MCV 89.0 fL 81.0 - 10 Normal [facility] 99.0 /2011 [facility] HEMATOLOGY RDW 15.4 % 11.5 - 1004 [place] [facility] 14.5 /2011 [facility] HEMATOLOGY MCH 30.0 pg 27.0 - 10 Normal [facility] 31.0 [facility] HEMATOLOGY MCHC 33.8 g/dL 32.0 - 10 Normal [facility] 36.0 [facility] HEMATOLOGY Platelet 81 K/CMM 133 - 450 07/30 LOW [facility] HEMATOLOGY MPV 9.2 fL 7.4 - 10.4 07/30 Normal [facility] HEMATOLOGY RBC 3.50 M/CMM 4.20 - 10 LOW [facility] [place] 5.40 /2011 [facility] HEMATOLOGY WBC 4.0 K/CMM 3.7 - 10.4 07/30 Normal [facility] HEMATOLOGY Hgb 10.5 g/dL 12.0 - 07/30 [facility] 16.0 [facility] HEMATOLOGY Hct 31.1 % 36.0 - 07/30 LOW [facility] 48.0 [facility] IMMUNOLOGY Hep Bs Ag Negative Negative 07/30 [facility] [place] (07/29/2012 20:05:00) IMMUNOLOGY Hep A IgM Negative Negative 07/30 [facility] [place] (07/29/2012 20:05:00) IMMUNOLOGY Hep B Core Negative Negative 07/30 [facility] (07/29/2012 20:05:00) IMMUNOLOGY Hep C Ab Negative Negative 07/30 [facility] (07/29/2012 20:05:00) CHEMISTRY AGAP 14.2 meq/L 10.0 - 07/29 Normal [facility] 20. [facility] CHEMISTRY Calcium Lvl 9.2 mg/dL 8.5 - 10.5 07/29 Normal [facility] CHEMISTRY CO2 26 meq/L 24 - 32 07/29 Normal [facility] CHEMISTRY Glucose Lvl 143 mg/dL 70 - 99 07/29 [place] 4Interpretive Data: Adult reference range values reflect the clinical guidelines of the [place] [employer]. [facility] CHEMISTRY Chloride Lvl 108 meq/L 95 - 109 07/29 Normal [facility] CHEMISTRY Potassium 4.2 meq/L 3.5 - 5.1 07/29 Normal [facility] [place] [facility] CHEMISTRY Sodium Lvl 144 meq/L 135 - 145 07/29 Normal [facility] CHEMISTRY Creatinine 0.9 mg/dL 0.5 - 1.4 07/29 Normal [facility] [place] [facility] CHEMISTRY BUN 17 mg/dL 7 - 22 07/29 Normal [facility] HEMATOLOGY Eosinophils 3.8 % 0.0 - 4.0 07/29 Normal [facility] HEMATOLOGY Monocytes 12.4 % 2.0 - 12.0 07/29 [place] [facility] HEMATOLOGY Lymphocytes 28.6 % 20.0 - 07/29 Normal [facility] [place] 40.0 /2011 [facility] HEMATOLOGY Segs 54.6 % 45.0 - 10 Normal [place] 75.0 /2011 [facility] [place] HEMATOLOGY Segs-Bands # 1.9 K/CMM 1.5 - 8.1 07/29 Normal [facility] HEMATOLOGY Basophils 0.6 % 0.0 - 1.0 07/29 Normal [facility] HEMATOLOGY Eosinophils 0.1 K/CMM 0.0 - 0.5 07/29 Normal [facility] HEMATOLOGY Monocytes # 0.4 K/CMM 0.0 - 0.8 07/29 Normal [facility] HEMATOLOGY Lymphocytes 1.0 K/CMM 1.0 - 5.5 07/29 Normal [facility] HEMATOLOGY Basophils # 0.0 K/CMM 0.0 - 0.2 07/29 Normal [facility] HEMATOLOGY RDW 15.3 % 11.5 - 10 HI [facility] 14.5 [facility] [place] HEMATOLOGY Platelet 76 K/CMM 133 - 450 07/29 LOW [facility] HEMATOLOGY MPV 8.9 fL 7.4 - 10.4 07/29 Normal [facility] HEMATOLOGY MCH 30.3 pg 27.0 - 07/29 Normal [facility] 31.0 [facility] HEMATOLOGY WBC 3.4 K/CMM 3.7 - 10.4 07/29 LOW [facility] HEMATOLOGY RBC 3.45 M/CMM 4.20 - 10 LOW [facility] 5.40 /2011 [facility] [place] HEMATOLOGY MCHC 34.0 g/dL 32.0 - 10 Normal [facility] 36.0 [facility] HEMATOLOGY Hgb 10.4 g/dL 12.0 - 10 LOW [facility] 16.0 [facility] HEMATOLOGY Hct 30.7 % 36.0 - 10 LOW [facility] 48.0 [facility] HEMATOLOGY MCV 88.9 fL 81.0 - 10 Normal [facility] 99.0 [facility] CHEMISTRY Total CK 75 unit/L 12 - 191 07/27 Normal [facility] CHEMISTRY AGAP 16.3 meq/L 10.0 - 07/27 Normal [facility] 20.0 [facility] CHEMISTRY CO2 26 meq/L 24 - 32 07/27 Normal [facility] CHEMISTRY Calcium Lvl 8.8 mg/dL 8.5 - 10.5 07/27 Normal Medical Center CHEMISTRY Chloride Lvl 105 meq/L 95 - 109 07/27 Normal Medical Center CHEMISTRY BUN 14 mg/dL 7 - 22 07/27 Normal Medical [facility] CHEMISTRY Creatinine 0.8 mg/dL 0.5 - 1.4 07/27 Normal [facility] [place] [facility] CHEMISTRY Glucose Lvl 152 mg/dL 70 - 99 07/27 [place] 5Interpretive Data: Adult reference range values reflect the clinical guidelines of the [place] [employer]. Medical Center CHEMISTRY Sodium Lvl 143 meq/L 135 - 145 07/27 Normal Medical Center CHEMISTRY Potassium 4.3 meq/L 3.5 - 5.1 07/27 Normal [facility] [place] [facility] CHEMISTRY CHD Risk 2.65 3.90 - 07/27 LOW [facility] 5. Medical Center CHEMISTRY LDL 36 mg/dL 0 - 129 07/27 Normal Medical Center CHEMISTRY Trig 123 mg/dL 0 - 200 07/27 Normal Medical [facility] CHEMISTRY HDL 37 mg/dL >=35 07/27 Normal [facility] CHEMISTRY Chol 98 mg/dL 120 - 200 07/27 LOW [facility] HEMATOLOGY PTT 43.9 s 22.9 - 07/24 [place] 11Interpretiv [facility] 35.8 e Data: [facility] Therapeutic Range: 57 - 92 [place] CHEMISTRY A/G Ratio 0.9 0.7 - 1.6 07/22 Normal [facility] CHEMISTRY Globulin 3.4 g/dL 2.0 - 4.0 07/22 Normal Medical Center CHEMISTRY B/C Ratio 15 6 - 25 07/22 Normal Medical Center CHEMISTRY AGAP 14.2 meq/L 10.0 - 07/22 Normal [facility] 20.0 Medical Center CHEMISTRY ALT 18 unit/L 0 - 65 07/22 Normal [facility] CHEMISTRY Alk Phos 82 unit/L 39 - 136 07/22 Normal [facility] CHEMISTRY Glucose Lvl 158 mg/dL 70 - 99 07/22 [place] 6Interpretive Data: Adult reference range values reflect the clinical guidelines of the [place] [employer]. Medical Center CHEMISTRY Albumin Lvl 2.9 g/dL 3.5 - 5.0 07/22 LOW Medical Center CHEMISTRY Sodium Lvl 139 meq/L 135 - 145 07/22 Normal Medical Center CHEMISTRY Potassium 4.2 meq/L 3.5 - 5.1 07/22 Normal [facility] CHEMISTRY BUN 15 mg/dL 7 - 22 07/22 Normal Medical Center CHEMISTRY CO2 27 meq/L 24 - 32 07/22 Normal Medical Center CHEMISTRY Calcium Lvl 9.1 mg/dL 8.5 - 10.5 07/22 Normal Medical Center CHEMISTRY Creatinine 1.0 mg/dL 0.5 - 1.4 07/22 Normal [facility] CHEMISTRY AST 15 unit/L 0 - 37 07/22 Normal [facility] CHEMISTRY Total 6.3 g/dL 6.4 - 8.4 07/22 LOW [facility] CHEMISTRY Chloride Lvl 102 meq/L 95 - 109 07/22 Normal [facility] CHEMISTRY Bili Total 0.5 mg/dL 0.2 - 1.3 07/22 Normal [facility] CHEMISTRY Magnesium 1.5 mg/dL 1.8 - 2.4 07/22 LOW [facility] CHEMISTRY Phosphorus 3.4 mg/dL 2.5 - 4.5 07/22 Normal [facility] HEMATOLOGY PTT 38.5 s 22.9 - 07/22 [place] 12Interpretiv [facility] 35.8 /2011 e Data: [facility] Therapeutic Range: 57 - 92 Second[place] BEDSIDE Comment1 Notify 07/22 NA [facility] GLUCOSE RN/MD /2011 Medical TESTING Center BEDSIDE Gluc POC 189 mg/dL 70 - 99 07/22 [place] 1Interpretive [facility] GLUCOSE [place] /2011 Data: Medical TESTING Center Upper Reportable Limit: 200 mg/dL. URINALYSIS UA WBC 78 /HPF 0 - 5 07/22 [place] [facility] URINALYSIS UA RBC 2 /HPF 0 - 2 07/22 Normal [facility] URINALYSIS UA Sq Epi Many /LPF Few 07/22 [facility] Medical *ABN* Center (07/21/2012 20:17:00) URINALYSIS UA [place] Yeast Occasional /HPF None Seen 07/22 [facility] Medical *ABN* Center (07/21/2012 20:17:00) URINALYSIS UA Bacteria Few /HPF None Seen 07/22 [facility] Medical *NA* Center (07/21/2012 20:17:00) URINALYSIS UA Hyal Cast 3 /LPF 0 - 2 07/22 [facility] URINALYSIS UA Leuk Est Large Negative 07/22 [facility] Medical *ABN* Center (07/21/2012 20:17:00) URINALYSIS UA Nitrite Negative Negative 07/22 Normal [facility] (07/21/2012 20:17:00) Center URINALYSIS UA 2.0 mg/dL 0.1 - 1.0 07/22 [facility] Urobilinogen /2011 [facility] URINALYSIS UA Blood Negative Negative 07/22 Normal [facility] (07/21/2012 20:17:00) Center URINALYSIS UA Bili Negative Negative 07/22 [facility] Medical *NA* Center (07/21/2012 20:17:00) URINALYSIS UA pH 6.5 5.0 - 8.0 07/22 Normal [facility] URINALYSIS UA Turbidity Slight Clear 07/22 [facility] Medical *ABN* Center (07/21/2012 20:17:00) URINALYSIS UA Glucose Negative mg/dL Negative 07/22 [facility] Medical *NA* Center (07/21/2012 20:17:00) URINALYSIS UA Ketones Negative mg/dL Negative 07/22 [facility] Medical *NA* Center (07/21/2012 20:17:00) URINALYSIS UA Protein Negative mg/dL Negative 07/22 Normal [facility] Medical (07/21/2012 20:17:00) Center URINALYSIS UA Color Yellow Yellow 07/22 [facility] Medical *NA* Center (07/21/2012 20:17:00) URINALYSIS UA Spec Grav 1.011 <=1.030 07/22 Normal [facility] Microbiolog Culture: 07/22 [facility] y Urine Medical Center BEDSIDE Gluc POC 158 mg/dL 70 - 99 07/21 [place] 2Interpretive [facility] GLUCOSE [place] Data: Medical TESTING Center Upper Reportable Limit: 200 mg/dL. BEDSIDE Gluc POC 212 mg/dL 70 - 99 07/21 [place] 3Interpretive [facility] GLUCOSE [place] Data: Medical TESTING Center Upper Reportable Limit: 200 mg/dL. BEDSIDE Comment1 Notify 07/21 NA [facility] GLUCOSE RN/MD Medical TESTING Center CHEMISTRY Ca Norm mgdL 4.80 mg/dL 4.65 - 07/21 Normal [facility] . Medical Center CHEMISTRY Ca Ion mgdL 4.60 mg/dL 4.65 - 07/21 LOW [facility] . Medical Center CHEMISTRY Ca Norm 1.20 1.16 - 07/21 Normal [place] mMol/L 1. Medical Center CHEMISTRY Ca Ion 1.15 1.16 - 07/21 LOW [facility] mMol/L 1. Medical Center CHEMISTRY CO2 23 meq/L 24 [...] values reflect the clinical guidelines of the [place] [employer]. Medical Center CHEMISTRY Chloride Lvl 105 meq/L 95 - 109 07/21 Normal Medical Center CHEMISTRY Potassium 4.0 meq/L 3.5 - 5.1 07/21 Normal [facility] Center CHEMISTRY Creatinine 0.6 mg/dL 0.5 - 1.4 07/21 Normal [facility] [place] [facility] CHEMISTRY AGAP 17.0 meq/L 10.0 - 07/21 Normal [facility] . Medical Center CHEMISTRY Phosphorus 3.3 mg/dL 2.5 - 4.5 07/21 Normal Medical Center CHEMISTRY Magnesium 1.4 mg/dL 1.8 - 2.4 07/21 LOW [facility] [place] [facility] HEMATOLOGY Monocytes # 0.5 K/CMM 0.0 - 0.8 07/21 Normal Medical Center HEMATOLOGY Eosinophils 0.2 K/CMM 0.0 - 0.5 07/21 Normal [facility] [place] # /2011 [facility] HEMATOLOGY Basophils # 0.0 K/CMM 0.0 - 0.2 07/21 Normal [facility] HEMATOLOGY Monocytes 8.8 % 2.0 - 12.0 07/21 Normal [facility] HEMATOLOGY Eosinophils 2.5 % 0.0 - 4.0 07/21 Normal [facility] HEMATOLOGY Basophils 0.6 % 0.0 - 1.0 07/21 Normal [facility] HEMATOLOGY Segs-Bands # 4.3 K/CMM 1.5 - 8.1 07/21 Normal [facility] HEMATOLOGY Lymphocytes 1.0 K/CMM 1.0 - 5.5 07/21 Normal # [facility] HEMATOLOGY Segs 71.7 % 45.0 - 07/21 Normal [facility] 75.0 [facility] HEMATOLOGY Lymphocytes 16.4 % 20.0 - 07/21 [facility] [place] 40.0 [facility] HEMATOLOGY RBC 3.59 M/CMM 4.20 - 07/21 LOW [facility] 5.40 [facility] HEMATOLOGY WBC 6.1 K/CMM 3.7 - 10.4 07/21 Normal [facility] HEMATOLOGY RDW 14.5 % 11.5 - 07/21 Normal [facility] 14.5 [facility] HEMATOLOGY Platelet 137 K/CMM 133 - 450 07/21 Normal [facility] HEMATOLOGY MPV 8.4 fL 7.4 - 10.4 07/21 Normal [facility] HEMATOLOGY Hgb 10.7 g/dL 12.0 - 07/21 [facility] 16.0 [facility] HEMATOLOGY Hct 32.0 % 36.0 - 07/21 LOW [facility] 48.0 [facility] HEMATOLOGY MCV 89.1 fL 81.0 - 07/21 Normal [facility] 99.0 [facility] HEMATOLOGY MCH 29.9 pg 27.0 - 07/21 [facility] 31.0 [facility] HEMATOLOGY MCHC 33.5 g/dL 32.0 - 07/21 [facility] 36.0 [facility] HEMATOLOGY INR 1.06 0.85 - 07/21 Normal 13Interpretive Data: RECOMMENDED RANGES FOR PROTIME INR: [facility] 1. 2.0-3.0 for most medical and surgical thromboembolic states. Medical 2.5-3.5 for artificial heart valves and recurrent embolism. Center INR SHOULD BE USED ONLY FOR PATIENTS ON STABLE ANTICOAGULANT THERAPY. HEMATOLOGY PT 14.0 s 12.0 - 07/21 Normal [facility] 14.7 Medical Center BEDSIDE Comment1 Notify 07/21 NA [facility] GLUCOSE RN/MD Medical TESTING Center CHEMISTRY Magnesium 1.7 mg/dL 1.8 - 2.4 07/20 LOW [facility] Lv Medical Center CHEMISTRY Phosphorus 3.6 mg/dL 2.5 - 4.5 07/20 Normal Medical Center CHEMISTRY Ca Norm mgdL 5.32 mg/dL 4.65 - 07/20 [place] 5. Medical Center CHEMISTRY Ca Ion mgdL 5.08 mg/dL 4.65 - 07/20 Normal [facility] 5. Medical Center CHEMISTRY Ca Ion 1.27 1.16 - 07/20 Normal [place] mMol/L 1. Medical Center CHEMISTRY Ca Norm 1.33 1.16 - 07/20 [facility] [place] mMol/L 1.30 Medical Center CHEMISTRY AGAP 14.1 meq/L 10.0 - 07/20 Normal [facility] . Medical Center CHEMISTRY Glucose Lvl 147 mg/dL 70 - 99 07/20 [place] 5Interpretive Data: Adult reference range values reflect the clinical guidelines of the [place] [employer]. Medical Center CHEMISTRY BUN 13 mg/dL 7 - 22 07/20 Normal Medical Center CHEMISTRY Potassium 4.1 meq/L 3.5 - 5.1 07/20 Normal [facility] CHEMISTRY Creatinine 0.9 mg/dL 0.5 - 1.4 07/20 Normal [facility] [place] [facility] CHEMISTRY Sodium Lvl 138 meq/L 135 - 145 07/20 Normal Medical Center CHEMISTRY Calcium Lvl 9.3 mg/dL 8.5 - 10.5 07/20 Normal Medical Center CHEMISTRY CO2 27 meq/L 24 - 32 07/20 Normal [facility] CHEMISTRY Chloride Lvl 101 meq/L 95 - 109 07/20 Normal [facility] HEMATOLOGY Lymphocytes 14.3 % 20.0 - 07/20 LOW [facility] 40.0 [facility] HEMATOLOGY Segs 74.5 % 45.0 - 07/20 Normal [facility] 75.0 Medical Center HEMATOLOGY Basophils 0.7 % 0.0 - 1.0 07/20 Normal /2011 [facility] HEMATOLOGY Monocytes 7.3 % 2.0 - 12.0 07/20 Normal [facility] HEMATOLOGY Eosinophils 3.2 % 0.0 - 4.0 07/20 Normal [facility] HEMATOLOGY Basophils # 0.1 K/CMM 0.0 - 0.2 07/20 Normal /2011 [facility] HEMATOLOGY Monocytes # 0.5 K/CMM 0.0 - 0.8 07/20 Normal [facility] HEMATOLOGY Eosinophils 0.2 K/CMM 0.0 - 0.5 07/20 Normal [place] # /2011 [facility] HEMATOLOGY Segs-Bands # 5.2 K/CMM 1.5 - 8.1 07/20 Normal [facility] HEMATOLOGY Lymphocytes 1.0 K/CMM 1.0 - 5.5 07/20 Normal [facility] # /2011 [facility] HEMATOLOGY PTT 34.5 s 22.9 - 07/20 Normal 16Interpretiv [facility] 35.8 e Data: [facility] Therapeutic Range: 57 - 92 Seconds HEMATOLOGY PT 13.2 s 12.0 - 07/20 Normal [facility] 14.7 [facility] HEMATOLOGY INR 0.98 0.85 - 07/20 Normal 14Interpretive Data: RECOMMENDED RANGES FOR PROTIME INR: [facility] 1. 2.0-3.0 for most medical and surgical thromboembolic states. Medical 2.5-3.5 for artificial heart valves and recurrent embolism. Center INR SHOULD BE USED ONLY FOR PATIENTS ON STABLE ANTICOAGULANT THERAPY. HEMATOLOGY MCHC 33.4 g/dL 32.0 - 07/20 Normal [facility] 36.0 [facility] HEMATOLOGY MPV 8.3 fL 7.4 - 10.4 07/20 Normal [facility] HEMATOLOGY RDW 14.8 % 11.5 - 07/20 HI [facility] 14.5 [facility] HEMATOLOGY Platelet 151 K/CMM 133 - 450 07/20 Normal [facility] HEMATOLOGY MCH 30.1 pg 27.0 - 07/20 Normal [facility] 31.0 /2011 [facility] HEMATOLOGY Hct 34.2 % 36.0 - 07/20 LOW [facility] 48.0 /2011 [facility] HEMATOLOGY RBC 3.79 M/CMM 4.20 - 07/20 LOW [facility] 5.40 /2011 Medical Center HEMATOLOGY Hgb 11.4 g/dL 12.0 - 07/20 LOW [place] 16.0 /2011 Medical Center HEMATOLOGY WBC 6.9 K/CMM 3.7 - 10.4 07/20 Normal Medical Center HEMATOLOGY MCV 90.1 fL 81.0 - 07/20 Normal [facility] 99.0 /2011 Medical Center CHEMISTRY Ca Norm 1.35 1.16 - 07/19 HI [place] mMol/L 1.30 Medical Center CHEMISTRY Ca Ion mgdL 5.08 mg/dL 4.65 - 07/19 Normal [place] 5.20 Medical Center CHEMISTRY Ca Norm mgdL 5.40 mg/dL 4.65 - 07/19 HI [place] 5.20 Medical Center CHEMISTRY Ca Ion 1.27 1.16 - 07/19 Normal [place] mMol/L 1. Medical Center CHEMISTRY AGAP 14.1 meq/L 10.0 - 07/19 Normal [facility] 20.0 Medical Center CHEMISTRY Glucose Lvl 163 mg/dL 70 - 99 07/19 [place] 6Interpretive Data: Adult reference range values reflect the clinical guidelines of the [place] [employer]. Medical Center CHEMISTRY Calcium Lvl 9.3 mg/dL 8.5 - 10.5 07/19 Normal Medical Center CHEMISTRY CO2 26 meq/L 24 - 32 07/19 Normal Medical Center CHEMISTRY Chloride Lvl 102 meq/L 95 - 109 07/19 Normal Medical Center CHEMISTRY Potassium 4.1 meq/L 3.5 - 5.1 07/19 Normal [facility] Center CHEMISTRY BUN 14 mg/dL 7 - 22 07/19 Normal Medical Center CHEMISTRY Sodium Lvl 138 meq/L 135 - 145 07/19 Normal Medical Center CHEMISTRY Creatinine 0.9 mg/dL 0.5 - 1.4 07/19 Normal [facility] [place] [facility] CHEMISTRY Phosphorus 2.9 mg/dL 2.5 - 4.5 07/19 Normal Medical Center CHEMISTRY Magnesium 1.5 mg/dL 1.8 - 2.4 07/19 LOW [facility] [place] [facility] CHEMISTRY Troponin-T 0.859 0.000 - 07/19 CRIT 7Result [place] ng/mL 0.100 /2011 Comment: [facility] Result(s) called to ya [email or web address]/19/20 12 05:04:48 CDT at _ by tac. Read back OK. HEMATOLOGY Segs-Bands # 4.5 K/CMM 1.5 - 8.1 07/19 Normal [facility] HEMATOLOGY Eosinophils 0.2 K/CMM 0.0 - 0.5 07/19 Normal [place] [facility] HEMATOLOGY Basophils # 0.0 K/CMM 0.0 - 0.2 07/19 Normal [facility] HEMATOLOGY Lymphocytes 0.8 K/CMM 1.0 - 5.5 07/19 LOW [place] # Medical Center HEMATOLOGY Monocytes # 0.5 K/CMM 0.0 - 0.8 07/19 Normal [facility] HEMATOLOGY Eosinophils 3.6 % 0.0 - 4.0 07/19 Normal [facility] [place] HEMATOLOGY Segs 75.1 % 45.0 - 07/19 [facility] [place] 75.0 Medical Center HEMATOLOGY Lymphocytes 12.8 % 20.0 - 07/19 [facility] [place] 40.0 Medical [place] HEMATOLOGY Basophils 0.7 % 0.0 - 1.0 07/19 Normal [facility] HEMATOLOGY Monocytes 7.8 % 2.0 - 12.0 07/19 Normal [facility] HEMATOLOGY MPV 8.4 fL 7.4 - 10.4 07/19 Normal [facility] HEMATOLOGY RDW 14.7 % 11.5 - 07/19 [facility] [place] 14.5 Medical Center HEMATOLOGY Platelet 142 K/CMM 133 - 450 07/19 Normal [facility] [place] HEMATOLOGY MCHC 34.0 g/dL 32.0 - 07/19 [facility] [place] 36.0 Medical Center HEMATOLOGY WBC 6.0 K/CMM 3.7 - 10.4 07/19 Normal [facility] HEMATOLOGY RBC 3.51 M/CMM 4.20 - 07/19 [facility] [place] 5.40 [facility] [place] HEMATOLOGY MCV 88.0 fL 81.0 - 07/19 Normal [place] [facility] HEMATOLOGY Hgb 10.5 g/dL 12.0 - 07/19 [facility] [place] 16.0 [facility] HEMATOLOGY MCH 29.9 pg 27.0 - 07/19 [facility] 31.0 /2011 [facility] HEMATOLOGY Hct 30.9 % 36.0 - 07/19 LOW [facility] 48.0 /2011 [facility] HEMATOLOGY PTT 31.8 s 22.9 - 07/19 Normal 17Interpretiv [facility] 35.8 e Data: [facility] Heparin [place] Therapeutic Range: 57 - 92 Seconds HEMATOLOGY PT 13.3 s 12.0 - 07/19 Normal [place] 14.7 /2011 [facility] HEMATOLOGY INR 0.99 0.85 - 07/19 Normal 15Interpretive Data: RECOMMENDED RANGES FOR PROTIME INR: [facility] . 2.0-3.0 for most medical and surgical thromboembolic states. Medical 2.5-3.5 for artificial heart valves and recurrent embolism. Center INR SHOULD BE USED ONLY FOR PATIENTS ON STABLE ANTICOAGULANT THERAPY. CHEMISTRY POC A Hct 30.0 % 36.0 - 07/18 LOW [facility] 48.0 [facility] CHEMISTRY POC A O2 Sat 97.0 % 95.0 - 07/18 Normal [facility] 100.0 [facility] CHEMISTRY POC A Na 133 meq/L 135 - 145 07/18 LOW [facility] CHEMISTRY POC A HCO3 27 mMol/L 22 - 26 07/18 [facility] CHEMISTRY POC A BE 4 mMol/L -2-2 - 2 07/18 [facility] CHEMISTRY POC A %FIO2 21.0 % 18.0 - 07/18 Normal [facility] 100.0 [facility] CHEMISTRY POC A Ca Ion 1.21 1.16 - 07/18 Normal [facility] mMol/L 1.30 [facility] CHEMISTRY POC A K 4.0 meq/L 3.5 - 5.1 07/18 Normal [facility] CHEMISTRY POC A PCO2 36 mm[Hg] 35 - 45 07/18 Normal [facility] CHEMISTRY POC A Source ART 07/18 NA [facility] CHEMISTRY POC A Temp 37.0 Erlinda 07/18 NA [facility] CHEMISTRY POC A pH 7.49 7.35 - 07/18 HI [facility] 7.45 [facility] CHEMISTRY POC A PO2 81 mm[Hg] 80 - 100 07/18 Normal [facility] HEMATOLOGY PTT 34.9 s 22.9 - 07/18 Normal 18Interpretiv [facility] 35.8 /2011 e Data: [facility] Heparin Center Therapeutic Range: 57 - 92 Seconds BLOOD BANK Antibody Negative 07/17 Normal [facility] RESULTS Scrn Medical (07/17/2012 07:00:00) Center BLOOD BANK ABO/Rh O NEG 07/17 Unknown [place] [facility] CHEMISTRY Troponin-I 3.07 ng/mL 0.00 - 07/17 CRIT 10Result [place] 0.40 /2011 Comment: Medical Critical Center Result(s) called to hossein guillory at 07/17/2012 04:01:26 CDT bygavino. Read back OK. CHEMISTRY A/G Ratio 0.9 0.7 - 1.6 07/17 Normal Medical Center CHEMISTRY Globulin 2.9 g/dL 2.0 - 4.0 07/17 Normal [facility] CHEMISTRY Bili 0.3 mg/dL 0.0 - 1.0 07/17 Normal [facility] CHEMISTRY AST 29 unit/L 0 - 37 07/17 Normal [facility] CHEMISTRY Bili Direct 0.2 mg/dL 0.0 - 0.3 07/17 Normal [facility] Center CHEMISTRY Alk Phos 66 unit/L 39 - 136 07/17 Normal Medical Center CHEMISTRY Total 5.6 g/dL 6.4 - 8.4 07/17 LOW Protein [facility] CHEMISTRY Bili Total 0.5 mg/dL 0.2 - 1.3 07/17 Normal [facility] CHEMISTRY Albumin Lvl 2.7 g/dL 3.5 - 5.0 07/17 LOW [facility] Center CHEMISTRY ALT 21 unit/L 0 - 65 07/17 Normal [facility] Center CHEMISTRY Total CK 71 unit/L 12 - 191 07/17 Normal Medical [place] CHEMISTRY Troponin-T 1.430 0.000 - 07/17 CRIT 8Result [place] ng/mL 0.100 Comment: Medical Critical Center Result(s) called to hossein guillory at 07/17/2012 04:02:28 CDT bygavino. Read back OK. CHEMISTRY Troponin-I 3.51 ng/mL 0.00 - 07/16 CRIT 11Result [place] 0.40 Comment: Medical Critical Center Result(s) called to ESTEBAN GUILLORY at 07/16/2012 19:33:32 CDT by MANINDER. Read back OK. CHEMISTRY Total CK 66 unit/L - 07/16 Normal Medical Center CHEMISTRY Troponin-T 1.180 0.000 - 07/16 CRIT 9Result [place] ng/mL 0.100 Comment: Medical critical [place] [phone] (busy line, 2x)07/16/2012 19:31:52 CDT, aamir guillory 07/16/2012 19:34:27 CDT by gissel. read back ok. CHEMISTRY Troponin-I 4.03 ng/mL 0.00 - 07/16 CRIT 12Result [place] 0.40 /2011 Comment: Medical Called to Center Stefani Hale at 07/16/2012 13:14:12 CDT called by dbf read back ok CHEMISTRY Total CK 70 unit/L - 07/16 Normal [facility] CHEMISTRY CK MB Index 2.4 0.0 - 2.5 07/16 Normal [facility] CHEMISTRY CK MB 2.3 ng/mL 0.5 - 3.6 07/16 Normal [facility] Center CHEMISTRY CK MB Index 2.8 0.0 - 2.5 07/15 HI [facility] Center CHEMISTRY CK MB 2.4 ng/mL 0.5 - 3.6 07/15 Normal [facility] Center CHEMISTRY Total CK 86 unit/L - 07/15 Normal [facility] Center CHEMISTRY Troponin-T 1.320 0.000 - 07/15 [...] back OK. BEDSIDE Comment1 Notify 07/15 NA [facility] GLUCOSE RN/MD /2011 Medical TESTING Center BEDSIDE Gluc POC 172 mg/dL 70 - 99 07/15 [place] 1Interpretive [facility] GLUCOSE [place] /2011 Data: Medical TESTING Center Upper Reportable Limit: 200 mg/dL. CHEMISTRY Phosphorus 2.8 mg/dL 2.5 - 4.5 07/15 Normal [facility] CHEMISTRY T4 Free 1.58 ng/dL 0.76 - 07/15 [facility] 1.46 /2011 Medical Center CHEMISTRY TSH 1.120 0.360 - 07/15 Normal [facility] uIU/mL 3.740 Medical Center CHEMISTRY Magnesium 1.7 mg/dL 1.8 - 2.4 07/15 LOW [facility] [place] [facility] Center CHEMISTRY Hgb A1C 7.3 % 07/15 [...] 32 unit/L 0 - 37 07/15 Normal [facility] CHEMISTRY Total 5.9 g/dL 6.4 - 8.4 07/15 LOW [facility] Protein [facility] Center CHEMISTRY Bili Total 0.6 mg/dL 0.2 - 1.3 07/15 Normal [facility] Center CHEMISTRY Calcium Lvl 8.8 mg/dL 8.5 - 10.5 07/15 Normal [facility] CHEMISTRY CO2 30 meq/L 24 - 32 07/15 Normal [facility] Center CHEMISTRY Glucose Lvl 125 mg/dL 70 - 99 07/15 [place] 3Interpretive Data: Adult reference range values reflect the clinical guidelines of the [place] [employer]. Medical Center CHEMISTRY Alk Phos 71 unit/L 39 - 136 07/15 Normal [facility] Center CHEMISTRY Albumin Lvl 2.6 g/dL 3.5 - 5.0 07/15 LOW [facility] Center CHEMISTRY ALT 23 unit/L 0 - 65 07/15 Normal [facility] CHEMISTRY Chloride Lvl 99 meq/L 95 - 109 07/15 Normal [facility] Center CHEMISTRY Potassium 4.2 meq/L 3.5 - 5.1 07/15 Normal [facility] [place] [facility] CHEMISTRY Sodium Lvl 139 meq/L 135 - 145 07/15 Normal [facility] CHEMISTRY Creatinine 0.8 mg/dL 0.5 - 1.4 07/15 Normal [facility] CHEMISTRY BUN 19 mg/dL 7 - 07/15 Normal [facility] CHEMISTRY A/G Ratio 0.8 0.7 - 1.6 07/15 Normal [facility] CHEMISTRY Globulin 3.3 g/dL 2.0 - 4.0 07/15 Normal [facility] CHEMISTRY B/C Ratio 24 6 - 25 07/15 Normal [facility] CHEMISTRY AGAP 14.2 meq/L 10.0 - 07/15 Normal [facility] 20.0 [facility] HEMATOLOGY Basophils # 0.0 K/CMM 0.0 - 0.2 07/15 Normal [facility] HEMATOLOGY Eosinophils 0.3 K/CMM 0.0 - 0.5 07/15 Normal [facility] HEMATOLOGY Monocytes # 0.5 K/CMM 0.0 - 0.8 07/15 Normal [facility] HEMATOLOGY Lymphocytes 1.1 K/CMM 1.0 - 5.5 07/15 Normal [facility] HEMATOLOGY Eosinophils 4.7 % 0.0 - 4.0 07/15 HI [facility] HEMATOLOGY Monocytes 7.7 % 2.0 - 12.0 07/15 Normal [facility] HEMATOLOGY Segs-Bands # 4.0 K/CMM 1.5 - 8.1 07/15 Normal [facility] HEMATOLOGY Basophils 0.5 % 0.0 - 1.0 07/15 Normal [facility] HEMATOLOGY Lymphocytes 18.3 % 20.0 - 07/15 LOW [facility] 40.0 [facility] HEMATOLOGY Segs 68.8 % 45.0 - 07/15 Normal [facility] 75.0 [facility] HEMATOLOGY PT 13.3 s 12.0 - 07/15 Normal [facility] 14.7 [facility] HEMATOLOGY PTT 36.8 s 22.9 - 07/15 [place] 8Interpretive [facility] 35.8 /2012 Data: Heparin Medical Therapeutic Center Range: 57 - 92 Seconds HEMATOLOGY INR 0.99 0.85 - 07/15 Normal 7Interpretive Data: RECOMMENDED RANGES FOR PROTIME INR: [facility] 1. 2.0-3.0 for most medical and surgical thromboembolic states. Medical 2.5-3.5 for artificial heart valves and recurrent embolism. Center INR SHOULD BE USED ONLY FOR PATIENTS ON STABLE ANTICOAGULANT THERAPY. HEMATOLOGY MCV 90.0 fL 81.0 - 07/15 Normal [facility] 99.0 /2011 [facility] HEMATOLOGY MCH 30.0 pg 27.0 - 07/15 Normal [facility] 31.0 /2011 [facility] HEMATOLOGY Hct 32.3 % 36.0 - 07/15 LOW [facility] 48.0 /2011 [facility] HEMATOLOGY Hgb 10.8 g/dL 12.0 - 07/15 LOW [facility] 16.0 /2011 [facility] HEMATOLOGY MPV 8.4 fL 7.4 - 10.4 07/15 Normal [facility] /2011 [facility] HEMATOLOGY MCHC 33.3 g/dL 32.0 - 07/15 Normal [facility] 36.0 /2011 [facility] HEMATOLOGY Platelet 184 K/CMM 133 - 450 07/15 Normal /2011 [facility] HEMATOLOGY RDW 15.1 % 11.5 - 07/15 HI [facility] 14.5 /2011 [facility] HEMATOLOGY RBC 3.59 M/CMM 4.20 - 07/15 LOW [facility] 5.40 /2011 [facility] HEMATOLOGY WBC 5.8 K/CMM 3.7 - 10.4 07/15 Normal [facility] IMMUNOLOGY Prealbumin 12.1 mg/dL 18.0 - 07/15 LOW [facility] 45.0 /2011 [facility] URINALYSIS UA <=1.0 0.1 - 1.0 07/15 [facility] Urobilinogen mg/dL /2011 Medical
*NA*< Center br/>(07/15 06:06:00) <sup> </sup> URINALYSIS UA Mucus Few /LPF None Seen 07/15 [facility] Medical *NA* Center (2012 06:06:00) URINALYSIS UA Bacteria Occasional /HPF None Seen 07/15 [facility] Medical *NA* Center (2012 06:06:00) URINALYSIS UA WBC null 0 - 5 07/15 Normal [facility] URINALYSIS UA RBC 1 /HPF 0 - 2 07/15 Normal [facility] URINALYSIS UA Sq Epi Occasional /LPF Few 07/15 NA Medical *NA* Center (2012 06:06:00) URINALYSIS UA Leuk Est Negative Negative 07/15 Normal [facility] (2012 06:06:00) Center URINALYSIS UA Glucose Negative mg/dL Negative 07/15 [facility] Medical *NA* [place] (2012 06:06:00) URINALYSIS UA Blood Negative Negative 07/15 Normal [facility] (2012 06:06:00) Center URINALYSIS UA Nitrite Negative Negative 07/15 Normal [facility] (2012 06:06:00) Center URINALYSIS UA Bili Negative Negative 07/15 [facility] Medical *NA* [place] (2012 06:06:00) URINALYSIS UA Ketones Negative mg/dL Negative 07/15 [facility] Medical *NA* [place] (2012 06:06:00) URINALYSIS UA pH 5.0 5.0 - 8.0 07/15 Normal [facility] URINALYSIS UA Spec Grav 1.011 <=1.030 07/15 Normal [facility] URINALYSIS UA Turbidity Clear Clear 07/15 Normal [facility] (2012 06:06:00) Center URINALYSIS UA Protein Negative mg/dL Negative 07/15 Normal [facility] (2012 06:06:00) Center URINALYSIS UA Color Yellow Yellow 07/15 [facility] Medical *NA* [place] (2012 06:06:00) Microbiolog Culture: 07/15 [facility] y Urine Medical Center BEDSIDE Gluc POC 125 mg/dL 70 - 99 07/15 [place] 2Interpretive [facility] GLUCOSE Lifscn Data: Medical TESTING Center Upper Reportable Limit: 200 mg/dL. BEDSIDE Comment1 Notify 07/15 NA [facility] GLUCOSE RN/MD /2011 Medical TESTING Center BEDSIDE Gluc POC 171 mg/dL 70 - 99 07/15 [place] 1Interpretive [facility] GLUCOSE Lifscn Data: Medical TESTING Center Upper Reportable Limit: 200 mg/dL. BEDSIDE Gluc POC 104 mg/dL 70 - 99 07/14 [place] 2Interpretive [facility] GLUCOSE Lifscn Data: Medical TESTING Center Upper Reportable Limit: 200 mg/dL. BEDSIDE Comment1 Notify 07/14 NA [facility] GLUCOSE RODRIGUE/ /2011 Medical TESTING Center BEDSIDE Gluc POC 171 mg/dL 70 - 99 07/14 [place] 3Interpretive [facility] GLUCOSE Lifscn Data: Medical TESTING Center Upper Reportable Limit: 200 mg/dL. BEDSIDE Comment1 Notify 07/14 NA [facility] GLUCOSE RN/ /2012 Medical TESTING Center CHEMISTRY Magnesium 1.5 mg/dL 1.8 - 2.4 07/14 LOW [facility] [place] [facility] CHEMISTRY AGAP 14.6 meq/L 10.0 - 07/14 Normal [facility] 20.0 Medical Center CHEMISTRY CO2 27 meq/L 24 - 32 07/14 Normal Medical Center CHEMISTRY Potassium 4.6 meq/L 3.5 - 5.1 07/14 Normal [facility] [place] [facility] Center CHEMISTRY Chloride Lvl 103 meq/L 95 - 109 07/14 Normal Medical [facility] CHEMISTRY BUN 25 mg/dL 7 - 07/14 [place] [facility] CHEMISTRY Glucose Lvl 143 mg/dL 70 - 99 07/14 [place] 5Interpretive Data: Adult reference range values reflect the clinical guidelines of the [place] [employer]. Medical Center CHEMISTRY Calcium Lvl 9.2 mg/dL 8.5 - 10.5 07/14 Normal Medical [facility] CHEMISTRY Creatinine 0.9 mg/dL 0.5 - 1.4 07/14 Normal [facility] [place] [facility] Center CHEMISTRY Sodium Lvl 140 meq/L 135 - 145 07/14 Normal Medical Center CHEMISTRY Phosphorus 2.8 mg/dL 2.5 - 4.5 07/14 Normal Medical Center CHEMISTRY Ca Norm mgdL 5.44 mg/dL 4.65 - 07/14 [facility] [place] 5. Medical Center CHEMISTRY Ca Norm 1.36 1.16 - 07/14 [facility] [place] mMol/L 1.30 Medical Center CHEMISTRY Ca Ion 1.31 1.16 - 07/14 [facility] [place] mMol/L 1.30 Medical Center CHEMISTRY Ca Ion mgdL 5.24 mg/dL 4.65 - 07/14 [facility] [place] 5. Medical Center HEMATOLOGY Basophils 0.3 % 0.0 - 1.0 07/14 Normal [facility] HEMATOLOGY Segs-Bands # 4.7 K/CMM 1.5 - 8.1 07/14 Normal [facility] HEMATOLOGY Monocytes 7.9 % 2.0 - 12.0 07/14 Normal /2011 [facility] HEMATOLOGY Eosinophils 3.7 % 0.0 - 4.0 07/14 Normal [facility] HEMATOLOGY Lymphocytes 0.9 K/CMM 1.0 - 5.5 07/14 LOW [place] # /2011 [facility] HEMATOLOGY Basophils # 0.0 K/CMM 0.0 - 0.2 07/14 Normal [facility] HEMATOLOGY Monocytes # 0.5 K/CMM 0.0 - 0.8 07/14 Normal [facility] HEMATOLOGY Eosinophils 0.2 K/CMM 0.0 - 0.5 07/14 Normal [facility] HEMATOLOGY Lymphocytes 14.8 % 20.0 - 07/14 LOW [place] 40.0 [facility] HEMATOLOGY Segs 73.3 % 45.0 - 07/14 Normal [facility] 75.0 [facility] HEMATOLOGY INR 1.02 0.85 - 07/14 Normal 16Interpretive Data: RECOMMENDED RANGES FOR PROTIME INR: [facility] 1. 2.0-3.0 for most medical and surgical thromboembolic states. Medical 2.5-3.5 for artificial heart valves and recurrent embolism. Center INR SHOULD BE USED ONLY FOR PATIENTS ON STABLE ANTICOAGULANT THERAPY. HEMATOLOGY PTT 30.5 s 22.9 - 07/14 Normal 19Interpretiv [facility] 35.8 e Data: [facility] Center Therapeutic Range: 57 - 92 Seconds HEMATOLOGY PT 13.6 s 12.0 - 07/14 Normal [place] 14.7 [facility] HEMATOLOGY RDW 14.4 % 11.5 - 07/14 Normal [facility] 14.5 [facility] HEMATOLOGY MPV 8.6 fL 7.4 - 10.4 07/14 Normal /2011 [facility] HEMATOLOGY Platelet 154 K/CMM 133 - 450 07/14 Normal [facility] HEMATOLOGY Hgb 10.3 g/dL 12.0 - 07/14 LOW [facility] 16.0 [facility] HEMATOLOGY Hct 30.1 % 36.0 - 07/14 LOW [facility] [place] 48.0 /2011 Medical Center HEMATOLOGY MCHC [...] 2.2 mg/dL 1.8 - 2.4 07/13 Normal [facility] Lvl Medical Center CHEMISTRY CK MB Index 2.8 0.0 - 2.5 07/13 HI [facility] Center CHEMISTRY CK MB 2.9 ng/mL 0.5 - 3.6 07/13 Normal [facility] Center CHEMISTRY Total CK 104 unit/L - 07/13 Normal [facility] Center CHEMISTRY Troponin-I 11.80 0.00 - [...] Index 3.0 0.0 - 2.5 07/13 HI [facility] Center CHEMISTRY CK MB 3.2 ng/mL 0.5 - 3.6 07/13 Normal Medical Center CHEMISTRY Total CK 108 unit/L - 07/13 Normal [facility] Center CHEMISTRY Troponin-I 13.40 0.00 - 07/13 CRIT 12Result [place] ng/mL 0.40 Comment: Medical Critical Center Result(s) called to perla dan at 07/13/2012 13:00:19 CDT_ by_lss. Read back OK. CHEMISTRY Troponin-T 3.090 0.000 - 07/13 CRIT 9Result [facility] ng/mL 0.100 /2011 Comment: Medical Critical Center Result(s) called to Rosalinda Ely at 07/13/2012 13:06:41 CDT by RG. Read back OK. CHEMISTRY Magnesium 1.8 mg/dL 1.8 - 2.4 07/13 Normal [facility] Lvl Medical Center CHEMISTRY Phosphorus 2.9 mg/dL 2.5 - 4.5 07/13 Normal Medical Center CHEMISTRY Creatinine 1.1 mg/dL 0.5 - 1.4 07/13 Normal [facility] Lvl Medical Center CHEMISTRY Sodium Lvl 140 meq/L 135 - 145 07/13 Normal Medical Center CHEMISTRY Glucose Lvl 138 mg/dL 70 - 99 07/13 [place] 6Interpretive Data: Adult reference range values reflect the clinical guidelines of the [place] [employer]. Medical Center CHEMISTRY BUN 44 mg/dL 7 - 22 07/13 [place] [facility] CHEMISTRY Potassium 4.6 meq/L 3.5 - 5.1 07/13 Normal [facility] Lvl [facility] Center CHEMISTRY Chloride Lvl 103 meq/L 95 - 109 07/13 Normal Medical Center CHEMISTRY CO2 24 meq/L 24 - 32 07/13 Normal [facility] Center CHEMISTRY Calcium Lvl 8.9 mg/dL 8.5 - 10.5 07/13 Normal [facility] Center CHEMISTRY AGAP 17.6 meq/L 10.0 - 07/13 Normal [facility] 20.0 Medical Center CHEMISTRY Ca Norm mgdL 4.56 mg/dL 4.65 - 07/13 LOW [facility] 5.20 [facility] Center CHEMISTRY Ca Ion mgdL 4.64 mg/dL 4.65 - 07/13 LOW [facility] 5.20 Medical Center CHEMISTRY Ca Norm 1.14 1.16 - 07/13 LOW [facility] mMol/L 1. Medical Center CHEMISTRY Ca Ion 1.16 1.16 - 07/13 Normal [facility] mMol/L 1. [facility] HEMATOLOGY INR 0.99 0.85 - 07/13 Normal 17Interpretive Data: RECOMMENDED RANGES FOR PROTIME INR: [facility] . 2.0-3.0 for most medical and surgical thromboembolic states. Medical 2.5-3.5 for artificial heart valves and recurrent embolism. Center INR SHOULD BE USED ONLY FOR PATIENTS ON STABLE ANTICOAGULANT THERAPY. HEMATOLOGY PTT 28.1 s 22.9 - 07/13 Normal 20Interpretiv [place] 35.8 /2011 e Data: [facility] Therapeutic Range: 57 - 92 Seconds HEMATOLOGY PT 13.3 s 12.0 - 07/13 Normal [facility] 14.7 /2011 [facility] HEMATOLOGY MPV 9.0 fL 7.4 - 10.4 07/13 Normal /2011 [facility] HEMATOLOGY MCH 30.0 pg 27.0 - 07/13 Normal [facility] 31.0 /2011 [facility] HEMATOLOGY MCHC 33.6 g/dL 32.0 - 07/13 [facility] 36.0 /2011 [facility] HEMATOLOGY RDW 14.8 % 11.5 - 07/13 HI [facility] 14.5 /2011 [facility] HEMATOLOGY Platelet 127 K/CMM 133 - 450 07/13 [facility] /2011 [facility] HEMATOLOGY Hct 32.2 % 36.0 - 07/13 [facility] 48.0 /2011 [facility] HEMATOLOGY Hgb 10.8 g/dL 12.0 - 07/13 [facility] 16.0 [facility] HEMATOLOGY RBC 3.61 M/CMM 4.20 - 07/13 [facility] 5.40 /2011 [facility] HEMATOLOGY WBC 6.8 K/CMM 3.7 - 10.4 07/13 Normal /2011 [facility] HEMATOLOGY MCV 89.3 fL 81.0 - 07/13 [facility] 99.0 /2011 [facility] HEMATOLOGY Eosinophils 3.0 % 0.0 - 4.0 07/13 [facility] HEMATOLOGY Monocytes 9.4 % 2.0 - 12.0 07/13 [facility] /2011 [facility] HEMATOLOGY Segs 74.2 % 45.0 - 07/13 [facility] 75.0 /2011 [facility] HEMATOLOGY Lymphocytes 13.0 % 20.0 - 07/13 [facility] 40.0 /2011 [facility] HEMATOLOGY Basophils # 0.0 K/CMM 0.0 - 0.2 07/13 [facility] /2011 [facility] HEMATOLOGY Eosinophils 0.2 K/CMM 0.0 - 0.5 07/13 Normal [place] # /2011 [facility] HEMATOLOGY Lymphocytes 0.9 K/CMM 1.0 - 5.5 07/13 [facility] # /2011 Medical Center HEMATOLOGY Monocytes # 0.6 K/CMM 0.0 - 0.8 07/13 Normal [facility] HEMATOLOGY Basophils 0.4 % 0.0 - 1.0 07/13 Normal [facility] HEMATOLOGY Segs-Bands # 5.0 K/CMM 1.5 - 8.1 07/13 Normal [facility] HEMATOLOGY Hgb 10.4 g/dL 12.0 - 07/12 LOW [place] 16.0 [facility] HEMATOLOGY Hct 31.1 % 36.0 - 07/12 LOW [facility] 48.0 /2011 [facility] Center CHEMISTRY Troponin-T 4.890 0.000 - 07/12 CRIT 10Result [place] ng/mL 0.100 /2011 Comment: Medical Critical Center Result(s) called to Rose Lopez_ at 07/12/2012 04:04:00 CDT_ by_mgm. Read back OK. (endorsed by [facility] [employer] to release result while in break). CHEMISTRY Troponin-I 30.40 0.00 - 07/12 CRIT 13Result [place] ng/mL 0.40 /2011 Comment: Medical Critical Center Result(s) called to florence chung _07/12/2012 03:28:01 CDT by_lg. Read back OK. CHEMISTRY Total CK 335 unit/L 12 - 191 07/12 [facility] CHEMISTRY CK MB Index 1.9 0.0 - 2.5 07/12 Normal [facility] CHEMISTRY CK MB 6.5 ng/mL 0.5 - 3.6 07/12 [facility] Center CHEMISTRY AGAP 16.2 meq/L 10.0 - 07/12 Normal [facility] 20.0 Medical Center CHEMISTRY Chloride Lvl 99 meq/L 95 - 109 07/12 Normal Medical Center CHEMISTRY CO2 23 meq/L 24 - 32 07/12 LOW [facility] Center CHEMISTRY Calcium Lvl 8.8 mg/dL 8.5 - 10.5 07/12 Normal [facility] Center CHEMISTRY Creatinine 1.9 mg/dL 0.5 - 1.4 07/12 [facility] Lvl /2011 Medical Center CHEMISTRY Sodium Lvl 134 meq/L 135 - 145 07/12 LOW [facility] Center CHEMISTRY Potassium 4.2 meq/L 3.5 - 5.1 07/12 Normal [facility] Lvl [facility] CHEMISTRY Glucose Lvl 167 mg/dL 70 - 99 07/12 [place] 7Interpretive Data: Adult reference range values reflect the clinical guidelines of the [place] [employer]. Medical Center CHEMISTRY BUN 60 mg/dL 7 - 07/12 [place] [facility] CHEMISTRY Phosphorus 4.2 mg/dL 2.5 - 4.5 07/12 Normal [facility] CHEMISTRY Ca Norm mgdL 4.48 mg/dL 4.65 - 07/12 LOW [facility] 5. [facility] CHEMISTRY Ca Ion mgdL 4.60 mg/dL 4.65 - 07/12 LOW [facility] 5. [facility] CHEMISTRY Ca Norm 1.12 1.16 - 07/12 LOW [facility] mMol/L 1.30 [facility] CHEMISTRY Ca Ion 1.15 1.16 - 07/12 LOW [facility] mMol/L 1.30 [facility] Center HEMATOLOGY PTT 28.2 s 22.9 - 07/12 Normal 21Interpretiv [facility] 35.8 e Data: [facility] Center Therapeutic Range: 57 - 92 Seconds HEMATOLOGY PT 13.3 s 12.0 - 07/12 Normal [facility] 14.7 [facility] HEMATOLOGY INR 0.99 0.85 - 07/12 Normal 18Interpretive Data: RECOMMENDED RANGES FOR PROTIME INR: [facility] . 2.0-3.0 for most medical and surgical thromboembolic states. Medical 2.5-3.5 for artificial heart valves and recurrent embolism. Center INR SHOULD BE USED ONLY FOR PATIENTS ON STABLE ANTICOAGULANT THERAPY. HEMATOLOGY WBC 8.9 K/CMM 3.7 - 10.4 07/12 Normal [facility] Center HEMATOLOGY RBC 3.60 M/CMM 4.20 - 07/12 LOW [facility] 5.40 /2011 Medical Center HEMATOLOGY MCV 88.5 fL 81.0 - 07/12 Normal [facility] 99.0 [facility] HEMATOLOGY MCH 29.8 pg 27.0 - 07/12 Normal [facility] 31.0 [facility] HEMATOLOGY MCHC 33.7 g/dL 32.0 - 07/12 Normal [facility] 36.0 [facility] HEMATOLOGY MPV 8.8 fL 7.4 - 10.4 07/12 Normal [facility] HEMATOLOGY RDW 14.6 % 11.5 - 07/12 HI [place] 14.5 /2011 [facility] HEMATOLOGY Platelet 143 K/CMM 133 - 450 07/12 Normal /2011 [facility] HEMATOLOGY Basophils # 0.0 K/CMM 0.0 - 0.2 07/12 Normal /2011 [facility] HEMATOLOGY Lymphocytes 11.6 % 20.0 - 07/12 LOW [place] 40.0 /2011 [facility] HEMATOLOGY Monocytes 7.4 % 2.0 - 12.0 07/12 Normal /2011 [facility] HEMATOLOGY Eosinophils 3.1 % 0.0 - 4.0 07/12 Normal [place] /2011 [facility] HEMATOLOGY Lymphocytes 1.0 K/CMM 1.0 - 5.5 07/12 Normal [facility] # /2011 [facility] HEMATOLOGY Monocytes # 0.7 K/CMM 0.0 - 0.8 07/12 Normal /2011 [facility] HEMATOLOGY Basophils 0.3 % 0.0 - 1.0 07/12 Normal /2011 [facility] HEMATOLOGY Eosinophils 0.3 K/CMM 0.0 - 0.5 07/12 Normal [facility] # /2011 [facility] HEMATOLOGY Segs-Bands # 6.9 K/CMM 1.5 - 8.1 07/12 Normal /2011 [facility] HEMATOLOGY Segs 77.6 % 45.0 - 07/12 [facility] 75.0 /2011 [facility] BLOOD BANK Antibody Negative 07/11 Normal [facility] RESULTS [facility] Medical (07/11/2012 15:15:00) Center BLOOD BANK ABO/Rh O NEG 07/11 Unknown [facility] RESULTS [facility] BLOOD BANK RBC product Product available 07/11 Normal [facility] RESULTS Medical (07/11/2012 12:54:00) Center CHEMISTRY eGFR 22 07/11 NA 4Result Comment: Expected eGFR for >20 yr. age group: >=60 ml/min/1.73 sq m /2011 Medical The eGFR calculation is not valid in or for Center persons < 18 years of age. From [employer] (NKDEP) HEMATOLOGY ASA Effect 456 ARU 07/10 NA 22Interpretive Data: Test results are reported in Aspirin Reaction Units (ARU). [facility] Plt /2011 Medical [id number] ARU - Therapeutic [...] PRU reference range is 194 - 418. [facility] /2011 Medical Post Drug Results: Lower PRU levels [...] Folate Lvl 17.7 ng/mL >=3.0 07/[address] CHEMISTRY Vitamin B12 420 pg/mL 254 - 1320 07/10 Normal [facility]2011 [facility] CHEMISTRY FTI 2.7 07/[address] CHEMISTRY U Opiate Scr Positive Negative 07/10 ABN [facility] *ABN* [place] (07/09/2012 21:33:00) CHEMISTRY U Benzodia Positive Negative 07/10 [facility] *ABN* [place] (07/09/2012 21:33:00) CHEMISTRY U Phencyc Negative Negative 07/10 [facility] *NA* [place] (07/09/2012 21:33:00) CHEMISTRY UDS Note See Note [...] CHEMISTRY U Cocaine Negative Negative 07/10 NA [facility] Scr [facility] *NA* Center (07/09/2012 21:33:00) CHEMISTRY U Cannab Scr Negative Negative 07/10 [facility] *NA* Center (07/09/2012 21:33:00) CHEMISTRY U Amph Scr Negative Negative 07/10 [facility]* Center (07/09/2012 21:33:00) CHEMISTRY U Kaye Scr Negative Negative 07/10 [facility] [place] (07/09/2012 21:33:00) CHEMISTRY T3 Uptake 34 % 31 - 39 07/10 Normal [facility] CHEMISTRY TSH 0.624 0.360 - 07/10 [facility] uIU/mL 3.740 [facility] CHEMISTRY T4 7.9 ug/dl 4.7 - 13.3 07/10 Normal [facility]2011 [facility] CHEMISTRY CHD Risk 4.41 3.90 - 07/10 Normal [facility] 5.80 [facility] CHEMISTRY LDL 97 mg/dL 0 - 129 07/10 Normal [facility]2011 [facility] CHEMISTRY Trig 147 mg/dL 0 - 200 07/10 Normal [facility]2011 [facility] CHEMISTRY Chol 163 mg/dL 120 - 200 07/10 Normal [facility]2011 [facility] CHEMISTRY HDL 37 mg/dL >=35 07/[address] CHEMISTRY Hgb A1C 7.8 % 07/10 14Interpretive [...] 4.2 meq/L 3.5 - 5.1 07/09 Normal [facility] CHEMISTRY POC A Ca Ion 1.18 1.16 - 07/09 Normal [facility] mMol/L 1.30 [facility] CHEMISTRY POC A LA 1.7 mMol/L 0.5 - 2.2 07/09 Normal [facility] CHEMISTRY POC A Hct 30.0 % 36.0 - 07/09 LOW [place] 48.0 [facility] CHEMISTRY POC A Na 131 meq/L 135 - 145 07/09 LOW [facility] CHEMISTRY POC A Glu 225 mg/dL 70 - 99 07/09 [facility] CHEMISTRY POC A PO2 123 mm[Hg] 80 - 100 07/09 [facility] CHEMISTRY POC A PCO2 33 mm[Hg] 35 - 45 07/09 LOW [facility] CHEMISTRY POC A O2 Sat 99.0 % 95.0 - 07/09 [facility] 100.0 [facility] CHEMISTRY POC A HCO3 26 mMol/L 22 - 26 07/09 Normal [facility] CHEMISTRY POC A BE 3 mMol/L -2-2 - 2 07/09 [facility] CHEMISTRY POC A Temp 37.0 Erlinda 07/09 NA [facility] CHEMISTRY POC A Source ART 07/09 NA [facility] CHEMISTRY POC A pH 7.51 7.35 - 07/09 [facility] 7.45 [facility] CHEMISTRY Myoglobin 199 ng/mL 25 - 72 07/09 [facility] HEMATOLOGY Plt Morph Normal 07/09 Normal Medical (07/09/2012 17:24:00) [place] HEMATOLOGY RBC Morph Normal 07/09 Normal Medical (07/09/2012 17:24:00) Center BEDSIDE Comment2 Notify 07/09 NA [place] GLUCOSE RN/ /2011 Medical TESTING Center BLOOD BANK Platelet Product available 07/09 Normal [place] RESULTS product Medical (07/09/2012 07:43:00) Center BLOOD BANK Antibody Negative 07/07 Normal [facility] RESULTS [facility] (07/07/2012 06:10:00) Center BLOOD BANK ABO/Rh O NEG 07/07 Unknown [facility] RESULTS [facility] CHEMISTRY A/G Ratio 1.3 0.7 - 1.6 07/06 Normal [facility] CHEMISTRY B/C Ratio 22 6 - 25 07/06 Normal [facility] [address] [place] [address] CHEMISTRY Globulin 3.0 g/dL 2.0 - 4.0 07/[address] CHEMISTRY AST 19 unit/L 0 - 37 07/[address] CHEMISTRY Total 6.9 g/dL 6.4 - 8.4 07/06 Normal [facility] Protein [facility] CHEMISTRY Bili Total 0.4 mg/dL 0.2 - 1.3 07/06 Normal [facility] CHEMISTRY ALT 24 unit/L 0 - 65 07/06 Normal [facility]2011 [facility] CHEMISTRY Albumin Lvl 3.9 g/dL 3.5 - 5.0 07/[address] CHEMISTRY Alk Phos 68 unit/L 39 - 136 07/[address] Vital Signs Vital Sign Value Date Comments Source Systolic (mm Hg) 134 05/01/2018 [facility] Diastolic (mm Hg) 61 05/01/2018 [facility] Respitory Rate 20 05/01/2018 [facility] Systolic (mm Hg) 144 05/01/2018 [facility] Diastolic (mm Hg) 61 05/01/2018 [facility] Respitory Rate 20 05/01/2018 [facility] Systolic (mm Hg) 145 05/01/2018 [facility] Diastolic (mm Hg) 63 05/01/2018 [facility] Respitory Rate 20 05/01/2018 [facility] Temperature Oral (F) 99 F 05/01/2018 [facility] Temperature Oral (F) 96.9 F 05/01/2018 [facility] Temperature Oral (F) 99.2 F 05/01/2018 [facility] Weight 64.091 04/25/2018 [facility] BMI Calculated 25.03 04/25/2018 [facility] Height 160.02 cm 04/25/2018 [facility] Height 158.24 cm 04/22/2018 [facility] Weight 65.568 04/22/2018 [facility] BMI Calculated 26.19 04/22/2018 [facility] Temperature Oral (F) 97.9 F 04/22/2018 [facility] Respitory Rate 18 04/22/2018 [facility] Heart Rate 92 04/22/2018 [facility] Systolic (mm Hg) 107 04/22/2018 [facility] Diastolic (mm Hg) 64 04/22/2018 [facility] BMI Calculated 26.33 04/02/2018 [facility] Height 158.5 cm 04/02/2018 [facility] Systolic (mm Hg) 127 04/02/2018 [facility] Diastolic (mm Hg) 67 04/02/2018 [facility] Weight 66.136 04/02/2018 [facility] Heart Rate 56 04/02/2018 [facility] Respitory Rate 18 04/02/2018 [facility] Temperature Oral (F) 97.0 F 04/02/2018 [facility] Height 158.6 cm 04/02/2018 [facility] BMI Calculated 28.91 04/02/2018 [facility] Weight 72.727 04/02/2018 [facility] Systolic (mm Hg) 120 04/02/2018 [facility] Diastolic (mm Hg) 71 04/02/2018 [facility] Heart Rate 73 04/02/2018 [facility] Temperature Oral (F) 98.1 F 04/02/2018 [facility] Systolic (mm Hg) 138 03/19/2018 [facility] Diastolic (mm Hg) 71 03/19/2018 [facility] Temperature Oral (F) 78 F 03/19/2018 [facility] Heart Rate 75 03/19/2018 [facility] Respitory Rate 17 03/19/2018 [facility] BMI Calculated 25.55 03/19/2018 [facility] Height 158.6 cm 03/19/2018 [facility] Weight 64.273 03/19/2018 [facility] Height 158.6 cm 03/19/2018 [facility] BMI Calculated 25.5 03/19/2018 [facility] Weight 64.148 03/19/2018 [facility] Heart Rate 79 03/19/2018 [facility] Temperature Oral (F) 98.2 F 03/19/2018 [facility] Respitory Rate 18 03/19/2018 [facility] Systolic (mm Hg) 109 03/19/2018 [facility] Diastolic (mm Hg) 61 03/19/2018 [facility] Respitory Rate 16 03/02/2018 [facility] Heart Rate 84 03/02/2018 [facility] Systolic (mm Hg) 127 03/02/2018 [facility] Diastolic (mm Hg) 66 03/02/2018 [facility] Height 158.6 cm 03/02/2018 [facility] Weight 62.273 03/02/2018 [facility] BMI Calculated 24.76 03/02/2018 [facility] Systolic (mm Hg) 102 02/11/2018 [facility] Diastolic (mm Hg) 60 02/11/2018 [facility] Heart Rate 77 02/11/2018 [facility] Weight 60.938 02/11/2018 [facility] BMI Calculated 24.23 02/11/2018 [facility] Height 158.6 cm 02/11/2018 [facility] Temperature Oral (F) 98.2 F 02/11/2018 [facility] Respitory Rate 16 02/11/2018 [facility] Systolic (mm Hg) 136 02/06/2018 [facility] Diastolic (mm Hg) 79 02/06/2018 [facility] Temperature Oral (F) 97.1 F 02/06/2018 [facility] Respitory Rate 20 02/06/2018 [facility] Systolic (mm Hg) 121 02/06/2018 [facility] Diastolic (mm Hg) 56 02/06/2018 [facility] Respitory Rate 20 02/06/2018 [facility] Temperature Oral (F) 96.8 F 02/06/2018 [facility] Systolic (mm Hg) 115 02/06/2018 [facility] Diastolic (mm Hg) 58 02/06/2018 [facility] Respitory Rate 22 02/06/2018 [facility] Temperature Oral (F) 96.7 F 02/06/2018 [facility] Weight 63.273 01/27/2018 [facility] BMI Calculated 24.93 01/27/2018 [facility] Weight 63.835 01/27/2018 [facility] Height 160.02 cm 01/27/2018 [facility] Heart Rate 80 01/26/2018 [facility] Heart Rate 82 01/26/2018 [facility] Heart Rate 82 01/26/2018 [facility] Weight 63.636 01/26/2018 [facility] BMI Calculated 24.85 01/26/2018 [facility] Height 160.02 cm 01/26/2018 [facility] Height 158.6 cm 01/26/2018 [facility] BMI Calculated 25.41 01/26/2018 [facility] Weight 63.909 01/26/2018 [facility] Temperature Oral (F) 98.5 F 01/26/2018 [facility] Heart Rate 82 01/26/2018 [facility] Respitory Rate 16 01/26/2018 [facility] Systolic (mm Hg) 113 01/26/2018 [facility] Diastolic (mm Hg) 63 01/26/2018 [facility] BMI Calculated 24.31 01/19/2018 [facility] Weight 63.727 01/19/2018 [facility] Height 161.9 cm 01/19/2018 [facility] Temperature Oral (F) 97.7 F 01/19/2018 [facility] Respitory Rate 16 01/19/2018 [facility] Heart Rate 83 01/19/2018 [facility] Systolic (mm Hg) 104 01/19/2018 [facility] Diastolic (mm Hg) 51 01/19/2018 [facility] Weight 61.96 01/12/2018 [facility] BMI Calculated 24.2 01/12/2018 [facility] Height 160.02 cm 01/12/2018 [facility] Temperature Oral (F) 96.9 F 01/12/2018 [facility] Respitory Rate 18 01/12/2018 [facility] Heart Rate 80 01/12/2018 [facility] Systolic (mm Hg) 98 01/12/2018 [facility] Diastolic (mm Hg) 49 01/12/2018 [facility] Systolic (mm Hg) 120 01/05/2018 [facility] Diastolic (mm Hg) 58 01/05/2018 [facility] Respitory Rate 18 01/05/2018 [facility] Systolic (mm Hg) 122 01/05/2018 [facility] Diastolic (mm Hg) 60 01/05/2018 [facility] Systolic (mm Hg) 123 01/05/2018 [facility] Diastolic (mm Hg) 57 01/05/2018 [facility] Respitory Rate 18 01/05/2018 [facility] Temperature Oral (F) 97.4 F 01/05/2018 [facility] Respitory Rate 17 01/05/2018 [facility] Temperature Oral (F) 97.6 F 01/05/2018 [facility] Temperature Oral (F) 97.6 F 01/05/2018 [facility] BMI Calculated 25.03 01/01/2018 [facility] Weight 64.091 01/01/2018 [facility] Height 160.02 cm 01/01/2018 [facility] BMI Calculated 24.56 12/11/2017 [facility] Weight 62.898 12/11/2017 [facility] Height 160.02 cm 12/11/2017 [facility] Systolic (mm Hg) 125 12/11/2017 [facility] Diastolic (mm Hg) 63 12/11/2017 [facility] Temperature Oral (F) 97.1 F 12/11/2017 [facility] Heart Rate 97 12/11/2017 [facility] Respitory Rate 18 12/11/2017 [facility] Weight 64.182 12/08/2017 [facility] Height 160 cm 12/08/2017 [facility] BMI Calculated 25.07 12/08/2017 [facility] Systolic (mm Hg) 109 12/08/2017 [facility] Diastolic (mm Hg) 46 12/08/2017 [facility] Respitory Rate 18 12/08/2017 [facility] Heart Rate 84 12/08/2017 [facility] Temperature Oral (F) 98.1 F 12/08/2017 [facility] Heart Rate 64 11/29/2017 [facility] Systolic (mm Hg) 110 11/29/2017 [facility] Diastolic (mm Hg) 64 11/29/2017 [facility] Respitory Rate 18 11/29/2017 [facility] Temperature Oral (F) 98.2 F 11/29/2017 [facility] Heart Rate 66 11/29/2017 [facility] Respitory Rate 18 11/29/2017 [facility] Temperature Oral (F) 97.6 F 11/29/2017 [facility] Systolic (mm Hg) 109 11/29/2017 [facility] Diastolic (mm Hg) 58 11/29/2017 [facility] Systolic (mm Hg) 122 11/29/2017 [facility] Diastolic (mm Hg) 58 11/29/2017 [facility] Respitory Rate 20 11/29/2017 [facility] Temperature Oral (F) 98.5 F 11/29/2017 [facility] Heart Rate 74 11/29/2017 [facility] Weight 66.818 11/25/2017 [facility] BMI Calculated 27.3 11/20/2017 [facility] Weight 69.909 11/20/2017 [facility] Height 160.02 cm 11/20/2017 [facility] Systolic (mm Hg) 110 11/02/2017 [facility] Diastolic (mm Hg) 53 11/02/2017 [facility] Respitory Rate 32 11/02/2017 [facility] Systolic (mm Hg) 110 11/02/2017 [facility] Diastolic (mm Hg) 53 11/02/2017 [facility] Respitory Rate 23 11/02/2017 [facility] Systolic (mm Hg) 104 11/02/2017 [facility] Diastolic (mm Hg) 52 11/02/2017 [facility] Respitory Rate 23 11/02/2017 [facility] Temperature Oral (F) 98 F 11/02/2017 [facility] Temperature Oral (F) 98.6 F 11/01/2017 [facility] Height 158.24 cm 10/31/2017 [facility] Temperature Oral (F) 98.3 F 10/31/2017 [facility] Heart Rate 85 10/31/2017 [facility] Heart Rate 76 10/31/2017 [facility] Heart Rate 84 10/31/2017 [facility] BMI Calculated 28.94 10/29/2017 [facility] Height 158.24 cm 10/29/2017 [facility] Weight 72.455 10/29/2017 [facility] Weight 71.989 10/29/2017 [facility] BMI Calculated 28.75 10/29/2017 [facility] Heart Rate 80 10/29/2017 [facility] Systolic (mm Hg) 136 10/29/2017 [facility] Diastolic (mm Hg) 72 10/29/2017 [facility] Temperature Oral (F) 96.8 F 10/29/2017 [facility] Respitory Rate 18 10/29/2017 [facility] Height 158.24 cm 10/29/2017 [facility] Height 157.48 cm 10/21/2017 [facility] BMI Calculated 28.96 10/21/2017 [facility] Weight 71.818 10/21/2017 [facility] Systolic (mm Hg) 116 10/14/2017 [facility] Diastolic (mm Hg) 60 10/14/2017 [facility] Temperature Oral (F) 97.8 F 10/14/2017 [facility] Height 159.77 cm 10/14/2017 [facility] Weight 72.301 10/14/2017 [facility] BMI Calculated 28.32 10/14/2017 [facility] Respitory Rate 18 05/29/2016 [facility] Systolic (mm Hg) 156 05/29/2016 [facility] Diastolic (mm Hg) 73 05/29/2016 [facility] Systolic (mm Hg) 142 05/29/2016 [facility] Diastolic (mm Hg) 70 05/29/2016 [facility] Respitory Rate 19 05/29/2016 [facility] Systolic (mm Hg) 150 05/29/2016 [facility] Diastolic (mm Hg) 77 05/29/2016 [facility] Respitory Rate 19 05/29/2016 [facility] Height 165.1 cm 05/29/2016 [facility] Weight 78.636 05/29/2016 [facility] BMI Calculated 28.85 05/29/2016 [facility] Diastolic (mm Hg) 88 01/20/2013 [facility] Systolic (mm Hg) 163 01/20/2013 [facility] Temperature Oral (F) 98.2 F 01/20/2013 [facility] Systolic (mm Hg) 154 01/20/2013 [facility] Diastolic (mm Hg) 93 01/20/2013 [facility] Systolic (mm Hg) 172 01/20/2013 [facility] Diastolic (mm Hg) 78 01/20/2013 [facility] Temperature Oral (F) 98.2 F 01/20/2013 [facility] Respitory Rate 12 01/19/2013 [facility] Respitory Rate 12 01/19/2013 [facility] Respitory Rate 12 01/19/2013 [facility] Temperature Oral (F) 97.7 F 01/19/2013 [facility] Weight 81.818 01/19/2013 [facility] Height 165.1 cm 01/19/2013 [facility] Systolic (mm Hg) 108 07/31/2012 [facility] Diastolic (mm Hg) 60 07/31/2012 [facility] Heart Rate 86 07/31/2012 [facility] Systolic (mm Hg) 112 07/31/2012 [facility] Respitory Rate 20 07/31/2012 [facility] Heart Rate 83 07/31/2012 [facility] Temperature Oral (F) 98.3 F 07/31/2012 [facility] Systolic (mm Hg) 113 07/31/2012 [facility] Diastolic (mm Hg) 68 07/31/2012 [facility] Respitory Rate 20 07/31/2012 [facility] Heart Rate 89 07/31/2012 [facility] Temperature Oral (F) 99.2 F 07/31/2012 [facility] Temperature Oral (F) 99.0 F 07/31/2012 [facility] Respitory Rate 20 07/31/2012 [facility] Diastolic (mm Hg) 69 07/31/2012 [facility] Weight 86.364 07/22/2012 [facility] Height 162.56 cm 07/22/2012 [facility] Systolic (mm Hg) 118 07/21/2012 [facility] Diastolic (mm Hg) 64 07/21/2012 [facility] Temperature Oral (F) 98.7 F 07/21/2012 [facility] Systolic (mm Hg) 107 07/21/2012 [facility] Diastolic (mm Hg) 57 07/21/2012 [facility] Diastolic (mm Hg) 72 07/21/2012 [facility] Systolic (mm Hg) 130 07/21/2012 [facility] Temperature Oral (F) 97.8 F 07/21/2012 [facility] Temperature Oral (F) 98.5 F 07/21/2012 [facility] Respitory Rate 18 07/20/2012 [facility] Respitory Rate 18 07/20/2012 [facility] Respitory Rate 18 07/20/2012 [facility] Weight 67 07/16/2012 [facility] Heart Rate 82 2012 [facility] Height 165.1 cm 2012 [facility] Weight 82.273 2012 [facility] Diastolic (mm Hg) 84 2012 [facility] Systolic (mm Hg) 123 2012 [facility] Temperature Oral (F) 99.1 F 2012 [facility] Heart Rate 123 2012 [facility] Respitory Rate 18 2012 [facility] Heart Rate 61 2012 [facility] Diastolic (mm Hg) 83 2012 [facility] Systolic (mm Hg) 136 2012 [facility] Diastolic (mm Hg) 58 2012 [facility] Systolic (mm Hg) 111 2012 [facility] Heart Rate 89 2012 [facility] Respitory Rate 20 2012 [facility] Temperature Oral (F) 98.5 F 2012 [facility] Respitory Rate 20 2012 [facility] Temperature Oral (F) 98.5 F 2012 [facility] [facility] 165.10 cm 2012 [facility] Weight 82.273 2012 [facility] Diastolic (mm Hg) 55 2012 [facility] Systolic (mm Hg) 108 2012 [facility] Systolic (mm Hg) 122 2012 [facility] Diastolic (mm Hg) 55 2012 [facility] Temperature Oral (F) 98.4 F 2012 [facility] Diastolic (mm Hg) 74 07/14/2012 [facility] Systolic (mm Hg) 132 07/14/2012 [facility] Temperature Oral (F) 98.8 F 07/14/2012 [facility] Temperature Oral (F) 98.6 F 07/14/2012 [facility] Respitory Rate 18 07/13/2012 [facility] Respitory Rate 19 07/13/2012 [facility] Respitory Rate 17 07/13/2012 [facility] Heart Rate 98 07/09/2012 [facility] Heart Rate 99 07/09/2012 [facility] Heart Rate 80 07/09/2012 [facility] Weight 88.182 07/07/2012 [facility] Height 162.56 cm 07/07/2012 [facility] Weight 88.182 07/06/2012 [facility] Height 162.56 cm 07/06/2012 [facility] Weight 88.182 07/06/2012 [facility] Height 162.56 cm 07/06/2012 [facility] Encounters Location Location Encounter Encounter Reason Attending ADM DC Status Source Details Type Number For Provider Date Date Visit [facility] Inpatient [id number] LUMBAR SASCHA 07/09 07/14 Active [facility] RADICULO REBEKA /2011 [facility] [place] [id number] MEILANI 07/14 07/15 Active 2 [facility] /2011 [facility] Inpatient [id number] LUMBAR JORGE 07/15 07/21 Active [facility] 3 RAD GAURANG /2011 [facility] [place] [id number] SCI MEILANI 07/21 07/31 Active 9 [facility] Rehabili tation [facility] WOJCIECH [id number] NADA GAUTAM 01/19 01/20 Active [facility] Outpt Diag [id number] Wagner 04/20 04/21 [facility] 2 [facility] Bedded [id number] Ali 05/29 05/29 [facility] Outpatient 2 Denktas /2015 [facility] Outpatient [id number] Biswajit 10/14 10/15 [facility] [place] 4 Сергей [facility] Advanced Heart Failure [facility] Outpatient [id number] Biswajit 10/21 10/22 [facility] [place] 6 Сергей [facility] Phone [id number] 10/28 10/30 [place] Message [facility] Advanced Heart Heart Failure Failure [facility] Outpatient [id number] Biswajit 10/29 10/30 [facility] 4 Сергей [facility] Advanced [facility] Inpatient [id number] Biswajit 10/29 11/02 [facility] Julian 3 Сергей [facility] Inpatient [id number] Biswajit 11/19 11/29 [facility] Julian 0 Сергей [facility] Recurring [id number] David Benedict 12/08 01/07 [place] [facility] 0 /2017 [facility] Outpatient [id number] Biswajit 12/11 12/12 [facility] 1 [facility] Advanced [facility] Failure [facility] Inpatient [id number] Jim 01/01 01/06 [facility] Julian 6 [facility] Outpatient [id number] Jagrutit 01/12 01/13 [facility] 4 [facility] Advanced Heart Failure [facility] Recurring [id number] David Benedict 01/19 02/18 [facility] [place] [facility] Outpt Diag [id number] David Benedict 01/21 01/22 [facility] Inpatient [id number] Gregor 01/26 02/06 [facility] [place] 8 [facility] Outpt Diag [id number] David Benedict 02/02 02/02 [facility] [place] [facility] [place] [facility] Recurring [id number] David Benedict 03/02 04/01 [facility] [place] [facility] Outpt Diag [id number] David Benedict 04/02 04/03 [facility] Recurring [id number] David Benedict 04/02 05/02 [facility] Outpatient [id number] John 04/02 04/03 [facility] [place] 8 [facility] Advanced Heart Failure [facility] Outpatient [id number] John 04/22 04/23 [facility] [place] 7 [facility] Advanced Heart Failure [facility] Inpatient [id number] Marwan 04/25 05/01 [facility] [place] 1 J[facility] Procedures Procedure Code Date Perfomer Comments Source Biopsy, [place] [address] 02/02/2018 [facility] retroperitoneal mass, Medical percutaneous needle Center 11/28/2017 [facility] Biopsy, bone, trocar, 11/28/2017 [facility] or needle; deep (eg, Medical vertebral body, Center femur) [place], [place] [address] 11/28/2017 [facility] retroperitoneal mass, Medical percutaneous needle [place] [address] 11/25/2017 [facility] retroperitoneal mass, Medical percutaneous needle Center Heart valve [id number] 10/27/2017 [facility] replacement [facility] Heart valve [id number] 10/27/2017 [facility] replacement Medical [place] Heart valve [id number] 10/27/[address] [facility] [address] [facility] Appendectomy [id number] [facility] Breast biopsy and [id number] [facility] related procedures [facility] Cardiac [id number] [facility] catheterization [facility] Cataract surgery [id number] [facility] Hysterectomy [id number] [facility] Ulnar nerve [id number] [facility] Appendectomy [id number] [facility] Breast biopsy and [id number] [facility] related procedures [facility] Cardiac [id number] [facility] Cataract surgery [id number] [facility] Hysterectomy [id number] [facility] Ulnar nerve [id number] [facility] Appendectomy [id number] [facility] [place] Breast biopsy and [id number] [facility] related procedures [place] Card[facility] [id number] [facility] catheterization [place] Cataract surgery [id number] [facility] [place] Hysterectomy [id number] [facility] Ulnar nerve [id number] [facility] decompression [facility] Appendectomy [id number] Center for [facility] Breast biopsy and [id number] Center for related procedures Adv Heart Failure Cardiac [id number] Center for catheterization [facility] Cataract surgery [id number] [facility] Hysterectomy [id number] [facility] Ulnar nerve [id number] Center for decompression Adv Heart Failure Appendectomy [id number] [facility] Breast biopsy and [id number] [facility] related procedures [facility] Cardiac [id number] [facility] catheterization [facility] Cataract surgery [id number] [facility] Hysterectomy [id number] [facility] Ulnar nerve [id number] [facility] decompression [facility]
--- OUTSIDE RECORDS SUMMARY | 2018-08-30 05:37 | XMS REPORT | CCD ---
:1935 Author Organization [facility] Care Team Providers Name Role Phone Morgan [...] mg, 1 supp, Route: 07/07/2012 07/14/2012 Discontinued MI, Drug form: SUPP, Daily, Dosing Weight 88.182, [...] Results BEDSIDE GLUCOSE TESTING Most recent to [facility] 1 2 3 [Reference Range]: Gluc [...] 200 mg/dL.BLOOD BANK RESULTS Most recent to [facility] [Reference 1 2 3 Range]: ABO/Rh O [...] values reflect the clinical guidelines of the [place] [employer].6Interpretive Data: Adult reference range values reflect the clinical guidelines of the [place] [employer].7Interpretive Data: Adult reference range values reflect the clinical guidelines of the [place] [employer].8Result Comment: Critical Result(s) called to MS. DANGELO at 07/13/2012 16:34:32 CDT by MANINDER. Read back OK.9Result Comment : Critical Result(s) called to Rosalinda Ely at 07/13/2012 13:06:41 CDT by RG. Read back OK.10Result Comment: Critical Result(s) called to Rose Lopez_ at 04:04:00 CDT_ by_mgm. Read back OK. (endorsed by [facility] to release result while in break).11Result Comment: Critical Result(s) called to perla ni at _07/13/2012 16:24:24 CDT by_nvj. Read back OK.12Result Comment: Critical Result(s) called to perla ni at 07/13/2012 13:00:19 CDT _ by_lss. Read back OK.13Result Comment: Critical Result(s) called to florenec chung at _07/12/2012 03:28:01 CDT by_lg. Read [...] 10.0 240 Poor Control, take action to uraln11Bxwcxoyxngtu Data: Drugs reported as positive have not [...] Data: Heparin Therapeutic Range: 57 - 92 Gphwskq37Fymgxulqzqhk Data: Heparin Therapeutic Range: 57 - 92 Zwmyrim18Lhsocnbtmjnv Data: Heparin Therapeutic Range: 57 - 92 Jklrlwj00Fdzetxsmvjfv Data: Test results are reported in Aspirin [...]
--- OUTSIDE RECORDS SUMMARY | 2018-08-30 05:38 | XMS REPORT | CCD ---
:1935 Author Organization [facility] Care Team Providers Name Role Phone Krysta [...] Duration: 30 day, Stop date: 08/14/12 9:00:00 [place] 10/325 oral tablet 1 tab, Route: PO, [...] values reflect the clinical guidelines of the [place] [employer].5Interpretive Data: Adult reference range values reflect the clinical guidelines of the [place] [employer].6Interpretive Data: Adult reference range values reflect the clinical guidelines of the [place] [employer].7Result Comment: Critical Result(s) called to ya mckeon07/19/2012 05:04:48 CDT at _ by rahel. Read back OK.8Result Comment : Critical Result(s) called to hossein guillory at 07/17/2012 04:02:28 CDT bygavino. Read back OK.9Result Comment: [place] [id number] (busy line, 2x)07/16/2012 19:31:52 CDT, aamir guillory [...] Data: Heparin Therapeutic Range: 57 - 92 Seankfy89Eltueshvgyrd Data: Heparin Therapeutic Range: 57 - 92 Pulbsnb34Fccffsfsngsy Data: Heparin Therapeutic Range: 57 - 92 Seconds
--- OUTSIDE RECORDS SUMMARY | 2018-08-30 05:38 | XMS REPORT | CCD ---
:1935 Author Organization [facility] Care Team Providers Name Role Phone Tod Doran Consulting Provider Allergies, Adverse Reactions, Alerts Substance Reaction Status HYDROcodone-Pseudoephedrine HCl Active Problem List Condition Effective Dates Status CAD - Coronary artery disease Active DM - Diabetes mellitus Active Heart attack Active Laminectomy Active O/E - pain Active Stented artery Active Medications Medication Instructions Start Date End Date Status [place] 10/325 oral tablet 1 tab, PO, BID, [...] Duration: 30 day, Stop date: 08/20/12 14:56:00 [place] 10/325 oral tablet 1 tab, Route: PO, [...] Results BEDSIDE GLUCOSE TESTING Most recent to [facility] 1 2 3 [Reference Range]: Gluc [...] Reportable Limit: 200 mg/dL.URINALYSIS Most recent to [facility] [Reference Range]: 1 2 3 UA [...] /LPF] 3 /LPF *HI* (07/21/2012 20:17:00) UA [place] Yeast [None Seen /HPF] Occasional /HPF *ABN* [...] values reflect the clinical guidelines of the [place] [employer].5Interpretive Data: Adult reference range values reflect the clinical guidelines of the [place] [employer].6Interpretive Data: Adult reference range values reflect the clinical guidelines of the [place] [employer].HEMATOLOGY Most recent to oldest 1 [...] anemia vs. anemia of chronic disease. CPT: 89931 *NA* (07/30/2012 14:00:00) PT [12.0-14.7 seconds] 19.4 [...] Data: Heparin Therapeutic Range: 57 - 92 Poyintz68Hioroqsckgip Data: Heparin Therapeutic Range: 57 - 92 Edcglsc90Xizojfpnjqrv Data: Heparin Therapeutic Range: 57 - 92 [...]
--- OUTSIDE RECORDS SUMMARY | 2018-08-30 05:38 | XMS REPORT | CCD ---
:1935 Author Organization [facility] Outpatient [facility] [place] Care Team Providers Name Role Phone Wagner [...]
--- OUTSIDE RECORDS SUMMARY | 2018-08-30 05:38 | XMS REPORT | CCD ---
:1935 Author Organization [facility] Care Team Providers Name Role Phone Ramone Birch Consulting Provider [phone] Tod Doran Consulting Provider Allergies, Adverse Reactions, [...] mg, 1 supp, Route: 07/14/2012 2012 Discontinued [place], Drug form: SUPP, Daily, Dosing [...] Duration: 30 day, Stop date: 08/13/12 17:48:00 [place] 10/325 oral tablet 1 tab, Route: PO, [...] Duration: 30 day, Stop date: 08/14/12 9:09:00 [place] 10/325 oral tablet 1 tab, PO, Q4H, [...] values reflect the clinical guidelines of the [place] [employer].4Result Comment: Critical Result(s) called to [...] Catheterized FREE TEXT SOURCE: PRELIMINARY REPORTS Preliminary [id number],000/cfu/ml Gram Negative Rods , Identification And Sensitivity Pending
--- OUTSIDE RECORDS SUMMARY | 2018-08-30 05:39 | XMS REPORT | CCD ---
:1935 Author Organization [facility] Care Team Providers Name Role Phone Gautam, [place] Juan Referring Provider Allergies, Adverse Reactions, Alerts [...] tablet Daily, 30 tab, Substitution Allowed, TAB [place] 5/325 oral tablet 1 tab, Route: PO, [...] Duration: 30 day, Stop date: 02/18/13 9:00:00 [place] 5/325 oral tablet 1 tab, PO, Q4H, [...] values reflect the clinical guidelines of the [place] [employer].4Interpretive Data: Adult reference range values reflect the clinical guidelines of the [place] [employer].HEMATOLOGY Most recent to oldest [Reference [...]
[2018-08-30 05:58] LABS: Urine Appearance CLOUDY; Urine Bilirubin NEGATIVE (NEG); Urine Blood NEGATIVE (NEG); Urine Color YELLOW; Urine Glucose NEGATIVE (NEG); Urine Protein NEGATIVE (NEG); Urine Specific Gravity 1.015 (1.005-1.030); Urine Urobilinogen 0.2 mg/dL (0.2-1.0)
[2018-08-30 06:00] LABS: Urine Microscopic Reflex ORDER UMIC
[2018-08-30 06:01] LABS: Urine Blood NEGATIVE (NEG); Urine Glucose NEGATIVE (NEG); Urine Protein 1+ (NEG); Urine Specific Gravity 1.015 (1.005-1.030)
[2018-08-30 06:04] LABS: Urine RBC NONE SEEN /HPF (NONE SEEN)
--- NOTE | 2018-08-30 06:04 | EKG ---
Test Date: 2018-08-30 Test Time: 05:46:27 Brush Sander: KAITLIN MEASUREMENT RESULTS: Intervals: Rate: 102 ME: 138 QRSD: 134 QT: 358 QTc: 466 Rembert: P: -11 ME: 138 QRS: -23 T: 66 INTERPRETIVE STATEMENTS: Sinus tachycardia Left bundle branch block Abnormal ECG Compared to ECG 06/05/2018 00:25:10 Sinus rhythm no longer present Electronically Signed On 08-30-18 06:04:05 PROGRAM ADMINISTRATOR by Yaniv Machado
[2018-08-30 06:05] LABS: Urine Bacteria <20 /HPF (<20); Urine Culture Reflex Order NOT NEEDED
[2018-08-30 08:35] LABS: Anisocytosis 1+; Blood Morphology Comment NOTED (NOT SEEN); Macrocytosis 1+; Platelet Estimate DECR; Smudge Cells NOTED
--- NOTE | 2018-08-30 08:53 | RAD REPORT ---
EXAM DESCRIPTION: RAD - Chest Single View - 08/30/2018 5:21 am CLINICAL HISTORY: Weakness, shortness of breath COMPARISON: August 05 TECHNIQUE: AP portable chest image was obtained 0507 hours . FINDINGS: Lung volumes are low. Lateral right base opacification is present most commonly seen with pneumonia. Heart size is similar to comparison. Central vasculature and lung markings are mildly prom inent. Trachea is midline. Defibrillator is in place. No pneumothorax or large pleural effusion. No a cute bony abnormality seen. No acute aortic findings suspected. IMPRESSION: Lateral right base pneumonia. Central vasculature and lung markings are mildly prominent. Patient can be monitored for a mild failu re or volume overload.
--- NOTE | 2018-08-30 09:08 | ER ---
Nurse's Notes [facility] Name: Julia Groves Age: 83 yrs Sex: Female : 1935 Arrival Date: 08/30/2018 Time: 04:39 Bed 2 Private MD: Diagnosis: Pneumonia due to other specified bacteria;Pain in left lower leg;Pain in right lower leg Presentation: 08/30 04:45 Presenting complaint: EMS states: they were toned out for report of pt having pain and bb weakness below bilateral knees x 5 days which is getting worse. Transition of care: patient was not received from another setting of care. Onset of symptoms was August 25, 2018. Risk Assessment: Do you want to hurt yourself or someone else? Patient reports no desire to harm self or others. Initial Sepsis Screen: Does the patient meet any 2 criteria? No. Patient's initial sepsis screen is negative. Does the patient have a suspected source of infection? No. Patient's initial sepsis screen is negative. Care prior to arrival: Medication(s) given: Tylenol, 500 mg Glucose check: 191. 04:45 Method Of Arrival: EMS: [facility] bb 04:45 Acuity: RYAN 3 bb Triage Assessment: 01:53 General: Appears uncomfortable, Behavior is calm, cooperative, appropriate for age. ea Pain: Complains of pain in chest, right leg and left leg, epigastric Pain currently is 9 out of 10 on a pain scale. Quality of pain is described as aching, Pain began "a few months ago". Neuro: Level of Consciousness is awake, alert, obeys commands, Oriented to person, place, time, situation. Cardiovascular: Patient's skin is warm and dry. Respiratory: Airway is patent Respiratory effort is even, unlabored, Respiratory pattern is regular, symmetrical, Breath sounds with wheezes bilaterally. GI: Abdomen is distended, Bowel sounds present X 4 quads. Derm: Skin is pink, warm \\T\\ dry. Historical: - Allergies: 04:52 No Known Allergies; bb - Home Meds: 04:52 aspirin 81 mg Oral chew 1 tab once daily [Active]; bumetanide 1 mg Oral tab 1 tab 2 bb times per day [Active]; carvedilol 12.5 mg Oral tab 1 tab 2 times per day [Active]; clopidogrel 75 mg Oral tab 1 tab once daily [Active]; cyanocobalamin (vitamin B-12) 500 mcg Oral tab daily [Active]; duloxetine 30 mg Oral cpDR 1 cap once daily [Active]; glimepiride 4 mg Oral tab 1 tab twice daily [Active]; Insulin Glargine 300 units/mL Sub-Q 10 unit nightly [Active]; metformin 500 mg Oral tab 1 tab 2 times per day [Active]; pantoprazole 40 mg Oral TbEC 1 tab once daily [Active]; potassium chloride 20 mEq Oral TbER 1 tab 2 times per day [Active]; valsartan 40 mg Oral tab 1 tab 2 times per day [Active]; magnesium oxide 250 mg Oral tab [Active]; Levemir 100 unit/mL subcutaneous soln [Active]; - PMHx: 04:52 Anemia; CAD; CLL; Lukemia; CONSTAPATION; Diabetes - IDDM; GERD; Heart Murmur; bb Hypertension; laminectomy, lower back pain; Myocardial infarction; spinal stenosis; systolic heart failure; heart valve replacement; Pacemaker/Defibrillator; - Immunization history:: Adult Immunizations up to date, Pneumococcal vaccine is up to date, Flu vaccine is up to date. - Social history:: Smoking status: Patient/guardian denies using tobacco. - Ebola Screening: : No symptoms or risks identified at this time. Screenin:58 Abuse screen: Denies threats or abuse. Nutritional screening: No deficits noted. ea Tuberculosis screening: No symptoms or risk factors identified. Fall Risk Assessment: 01:53 Reassessment: see triage assessment. ea 07:00 General: Appears in no apparent distress. comfortable, Behavior is calm, cooperative. rb1 General: Pt. denies pain at this time, but stated, "I have pain when I'm up putting weight on my legs.". Pain: Denies pain. Neuro: Level of Consciousness is awake, alert, obeys commands. Cardiovascular: Capillary refill < 3 seconds is brisk in bilateral fingers. Respiratory: Airway is patent Respiratory effort is even, unlabored, Respiratory pattern is regular, symmetrical. GI: No signs and/or symptoms were reported involving the gastrointestinal system. : No signs and/or symptoms were reported regarding the genitourinary system. Derm: Skin is pink, warm \\T\\ dry. 08:30 Reassessment: Patient appears in no apparent distress at this time. Patient and/or ph family updated on plan of care and expected duration. Pain level reassessed. Patient is alert, oriented x 3, equal unlabored respirations, skin warm/dry/pink. 09:45 Reassessment: Patient appears in no apparent distress at this time. Patient and/or ph family updated on plan of care and expected duration. Pain level reassessed. Patient is alert, oriented x 3, equal unlabored respirations, skin warm/dry/pink. Pt sitting at bedside eating breakfast, tolerating well, awaiting room assignment, family at bedside. 11:15 Reassessment: Patient appears in no apparent distress at this time. No changes from previously documented assessment. Patient and/or family updated on plan of care and expected duration. Pain level reassessed. Patient is alert, oriented x 3, equal unlabored respirations, skin warm/dry/pink. 12:11 Reassessment: Patient appears in no apparent distress at this time. Patient and/or ph family updated on plan of care and expected duration. Pain level reassessed. Patient is alert, oriented x 3, equal unlabored respirations, skin warm/dry/pink. Report called to RODRIGUE Singh, pt taken to floor by compressor technician, accompanied by family. Vital Signs: 04:52 BP 151 / 68; Pulse 104; Resp 20 S; Temp 100.8(O); Pulse Ox 96% on R/A; Weight 67.59 kg bb (R); Height 5 ft. 2 in. (157.48 cm) (R); Pain 4/10; 05:54 BP 124 / 57; Pulse 95; Resp 18; Pulse Ox 98% ; ea 09:15 BP 102 / 44; Pulse 76; Resp 18; Temp 99.4; Pulse Ox 96% on R/A; ph 10:15 BP 111 / 52; Pulse 75; Resp 20; Pulse Ox 96% on R/A; ph 11:14 BP 108 / 46; Pulse 79; Resp 19; Temp 98.4; Pulse Ox 97% on R/A; ph 12:12 BP 106 / 48; Pulse 75; Resp 18; Temp 98.4; Pulse Ox 96% on R/A; ph 04:52 Body Mass Index 27.25 (67.59 kg, 157.48 cm) ED Course: 04:39 Patient arrived in ED. al2 04:47 Bustamante, Pin, MD is Attending Physician. pkl 04:47 Triage completed. bb 04:52 Arm band placed on Patient placed in an exam room, on a stretcher, on cafeteria monitor, bb on pulse oximetry. Family accompanied patient. 04:52 Patient has correct armband on for positive identification. Placed in gown. Bed in low ea position. Call light in reach. Side rails up X2. 04:55 Ursula Kidd RN is Primary Nurse. ea 04:58 Inserted saline lock: 20 gauge in right antecubital area, using aseptic technique. ea Blood collected. 05:18 X-ray completed. Portable x-ray completed in exam room. Patient tolerated procedure mh1 well. 05:19 XRAY Chest (1 view) In Process Unspecified. EDMS 05:53 Duggan cath inserted, using sterile technique, 16 Fr., by me, balloon inflated, to ea gravity drainage, urine specimen collected. 06:50 Artur Lobato PA is PHCP. cp 07:01 Report given to Dionna HUSAIN and YAS RN. ea 08:02 Attending Physician role handed off by Shin Bustamante MD kdr 08:02 Riki Jha MD is Attending Physician. kdr 08:15 Ultrasound completed. Patient tolerated well. Notified RETURNED CASE INSPECTOR/LETY covarrubias. sg3 08:17 US Extremity Venous W Compression Max In Process Unspecified. EDMS 08:44 Primary Nurse role handed off by Ursula Kidd RN ph 08:44 Leonila Kimbrough RN is Primary Nurse. ph 09:06 Celestino Suarez MD is Hospitalizing Provider. cp 09:22 Potassium drawn by pa and sent to lab. dh3 11:57 No provider procedures requiring assistance completed. Patient admitted, IV remains in ph place. Administered Medications: 05:18 Drug: NS 0.9% 1000 ml Route: IV; Rate: 100 ml/hr; Site: right antecubital; ea 10:23 Follow up: Response: No adverse reaction; IV Status: Infusion continued upon admission ph 09:53 Drug: Tylenol 650 mg Route: PO; ph 10:23 Follow up: Response: No adverse reaction ph 09:53 Drug: Rocephin - (cefTRIAXone) 1 grams Route: IVPB; Infused Over: 30 mins; Site: right ph antecubital; 10:22 Follow up: Response: No adverse reaction; IV Status: Completed infusion ph 09:54 Drug: NS 0.9% 250 ml Route: IV; Rate: bolus; Site: right antecubital; ph 10:21 Follow up: Response: No adverse reaction; IV Status: Completed infusion ph 10:05 Drug: Zithromax 500 mg Route: IVPB; Infused Over: 1 hrs; Site: right antecubital; ph 11:15 Follow up: Response: No adverse reaction; IV Status: Completed infusion ph Point of Care Testing: Blood Glucose: 09:15 Blood Glucose: 139 mg/dL; ph Ranges: Outcome: 09:07 Decision to Hospitalize by Provider. cp 12:13 Admitted to Tele accompanied by tech, family with patient, via stretcher, room 431, ph with chart, Report called to RODRIGUE Singh 12:13 Condition: stable 12:18 Patient left the ED. ph Signatures: Dispatcher [employer] EDMS Shin Bustamante MD MD pkl Rittger, Kevin, MD MD kdr Harvey, Martha 1 Jes Carmona RN RN bb Hall, Patricia, RN RN ph Artur Lobato PA PA cp Adrienne Ansari, RN RN rb1 Terri German 3 Ursula Kidd RN Kourtney Pena ea 3 Joanie Foster2 Corrections: (The following items were deleted from the chart) 04:58 04:45 Presenting complaint: EMS states: they were toned out for report of pt having bb weakness below bilateral knees x 5 days which is getting worse bb 10:23 10:22 Response: No adverse reaction; IV Status: Completed infusion ph ph
--- NOTE | 2018-08-30 09:08 | EDPHYS ---
Physician Documentation [facility] Name: Julia Groves Age: 83 yrs Sex: Female : 1935 Arrival Date: 08/30/2018 Time: 04:39 Bed 2 Private MD: ED Physician Riki Jha HPI: 08/30 05:09 This 83 yrs old Female presents to ER via EMS with unknown complaint. pkl 05:09 The patient presents with pain, that is acute. The complaints affect the both knees and pkl legs. Onset: The symptoms/episode began/occurred 5 day(s) ago, and became worse today. Associated signs and symptoms: Pertinent positives: fever, of the chest pain. Historical: - Allergies: 04:52 No Known Allergies; bb - Home Meds: 04:52 aspirin 81 mg Oral chew 1 tab once daily [Active]; bumetanide 1 mg Oral tab 1 tab 2 bb times per day [Active]; carvedilol 12.5 mg Oral tab 1 tab 2 times per day [Active]; clopidogrel 75 mg Oral tab 1 tab once daily [Active]; cyanocobalamin (vitamin B-12) 500 mcg Oral tab daily [Active]; duloxetine 30 mg Oral cpDR 1 cap once daily [Active]; glimepiride 4 mg Oral tab 1 tab twice daily [Active]; Insulin Glargine 300 units/mL Sub-Q 10 unit nightly [Active]; metformin 500 mg Oral tab 1 tab 2 times per day [Active]; pantoprazole 40 mg Oral TbEC 1 tab once daily [Active]; potassium chloride 20 mEq Oral TbER 1 tab 2 times per day [Active]; valsartan 40 mg Oral tab 1 tab 2 times per day [Active]; magnesium oxide 250 mg Oral tab [Active]; Levemir 100 unit/mL subcutaneous soln [Active]; - PMHx: 04:52 Anemia; CAD; CLL; Lukemia; CONSTAPATION; Diabetes - IDDM; GERD; Heart Murmur; bb Hypertension; laminectomy, lower back pain; Myocardial infarction; spinal stenosis; systolic heart failure; heart valve replacement; Pacemaker/Defibrillator; - Immunization history:: Adult Immunizations up to date, Pneumococcal vaccine is up to date, Flu vaccine is up to date. - Social history:: Smoking status: Patient/guardian denies using tobacco. - Ebola Screening: : No symptoms or risks identified at this time. ROS: 05:09 Eyes: Negative for injury, pain, redness, and discharge, ENT: Negative for injury, pkl pain, and discharge, Neck: Negative for injury, pain, and swelling. 05:09 Cardiovascular: Positive for chest pain. 05:09 Respiratory: Negative for cough, shortness of breath. 05:09 Abdomen/GI: Negative for abdominal pain, nausea, vomiting, and diarrhea. 05:09 Back: Negative for acute changes. 05:09 : Negative for urinary symptoms. 05:09 MS/extremity: Positive for pain, of the both legs. 05:09 Skin: Negative for rash. 05:09 Neuro: Negative for altered mental status. Exam: 05:09 Head/Face: Normocephalic, atraumatic. Eyes: Pupils equal round and reactive to light, pkl extra-ocular motions intact. Lids and lashes normal. Conjunctiva and sclera are non-icteric and not injected. Cornea within normal limits. Periorbital areas with no swelling, redness, or edema. ENT: Nares patent. No nasal discharge, no septal abnormalities noted. Tympanic membranes are normal and external auditory canals are clear. Oropharynx with no redness, swelling, or masses, exudates, or evidence of obstruction, uvula midline. Mucous membranes moist. Neck: Trachea midline, no thyromegaly or masses palpated, and no cervical lymphadenopathy. Supple, full range of motion without nuchal rigidity, or vertebral point tenderness. No Meningismus. Chest/axilla: Normal chest wall appearance and motion. Nontender with no deformity. No lesions are appreciated. Cardiovascular: Regular rate and rhythm with a normal S1 and S2. No gallops, murmurs, or rubs. Normal PMI, no JVD. No pulse deficits. Respiratory: Lungs have equal breath sounds bilaterally, clear to auscultation and percussion. No rales, rhonchi or wheezes noted. No increased work of breathing, no retractions or nasal flaring. Abdomen/GI: Soft, non-tender, with normal bowel sounds. No distension or tympany. No guarding or rebound. No evidence of tenderness throughout. Back: No spinal tenderness. No costovertebral tenderness. Full range of motion. Skin: Warm, dry with normal turgor. Normal color with no rashes, no lesions, and no evidence of cellulitis. Neuro: Awake and alert, GCS 15, oriented to person, place, time, and situation. Cranial nerves II-XII grossly intact. Motor strength 5/5 in all extremities. Sensory grossly intact. Cerebellar exam normal. Normal gait. 05:09 Musculoskeletal/extremity: Extremities: grossly normal except: noted in the both legs: pain, swelling. Vital Signs: 04:52 BP 151 / 68; Pulse 104; Resp 20 S; Temp 100.8(O); Pulse Ox 96% on R/A; Weight 67.59 kg bb (R); Height 5 ft. 2 in. (157.48 cm) (R); Pain 4/10; 05:54 BP 124 / 57; Pulse 95; Resp 18; Pulse Ox 98% ; ea 09:15 BP 102 / 44; Pulse 76; Resp 18; Temp 99.4; Pulse Ox 96% on R/A; ph 10:15 BP 111 / 52; Pulse 75; Resp 20; Pulse Ox 96% on R/A; ph 11:14 BP 108 / 46; Pulse 79; Resp 19; Temp 98.4; Pulse Ox 97% on R/A; ph 12:12 BP 106 / 48; Pulse 75; Resp 18; Temp 98.4; Pulse Ox 96% on R/A; ph 04:52 Body Mass Index 27.25 (67.59 kg, 157.48 cm) bb MDM: 04:47 Patient medically screened. pk 08:25 Physician consultation: Celestino Suarez MD was called at 08:25, was contacted at 08:25, will call back to discuss patient. 09:01 Data reviewed: vital signs, nurses notes, lab test result(s), EKG, radiologic studies, cp plain films, ultrasound. Test interpretation: by ED physician or midlevel provider: ECG, plain radiologic studies. 09:02 Physician consultation: Celestino Suarez MD was contacted at 09:02, regarding admission, to the telemetry unit. patient's condition. 08/30 05:02 Order name: Basic Metabolic Panel pk 08/30 05:02 Order name: CBC with Diff; Complete Time: 08:53 pk 08/30 06:33 Interpretation: Reviewed. 08/30 05:02 Order name: LFT's; Complete Time: 06:13 pk 08/30 05:02 Order name: Magnesium; Complete Time: 06:13 pkl 08/30 05:02 Order name: NT PRO-BNP; Complete Time: 06:13 pkl 08/30 09:09 Interpretation: Abnormal: NT PRO-BNP 2521. cp 08/30 05:02 Order name: PT-INR; Complete Time: 06:13 pkl 08/30 05:02 Order name: Troponin (emerg Dept Use Only); Complete Time: 06:13 pkl 08/30 05:02 Order name: D-Dimer; Complete Time: 06:13 pkl 08/30 05:02 Order name: Sed Rate; Complete Time: 08:53 pkl 08/30 05:02 Order name: Blood Culture Adult (2) pkl 08/30 05:02 Order name: Lactate; Complete Time: 06:13 pkl 08/30 05:02 Order name: Procalcitonin; Complete Time: 06:13 pkl 08/30 05:03 Order name: Basic Metabolic Panel; Complete Time: 06:13 EDMS 08/30 06:33 Interpretation: Normal except: K 5.5; GLUC 194; BUN 60; CRE 1.40; GFR 36. cp 08/30 05:05 Order name: CRP; Complete Time: 06:13 pkl 08/30 05:02 Order name: XRAY Chest (1 view); Complete Time: 08:59 pkl 08/30 05:05 Order name: UA; Complete Time: 06:13 pkl 08/30 05:57 Order name: Urine Dipstick--Ancillary (enter results); Complete Time: 06:13 2 08/30 06:01 Order name: Urine Microscopic Only; Complete Time: 06:13 EDMS 08/30 06:51 Order name: Influenza Screen (a \T\ B); Complete Time: 08:53 cp 08/30 08:53 Interpretation: Reviewed. cp 08/30 06:51 Order name: US Extremity Venous W Compression Max; Complete Time: 09:19 cp 08/30 08:35 Order name: Manual Differential; Complete Time: 08:53 EDMS 08/30 09:09 Order name: Potassium; Complete Time: 10:32 cp 08/30 10:32 Interpretation: Within normal limits: K 4.8. cp 08/30 09:18 Order name: Basic Metabolic Panel EDMS 08/30 09:18 Order name: Basic Metabolic Panel EDMS 08/30 09:18 Order name: CBC with Automated Diff EDMS 08/30 09:18 Order name: CBC with Automated Diff EDMS 08/30 05:02 Order name: EKG; Complete Time: 05:04 pkl 08/30 05:02 Order name: Cardiac monitoring; Complete Time: 05:12 pkl 08/30 05:02 Order name: EKG - Nurse/Tech; Complete Time: 05:11 pkl 08/30 05:02 Order name: IV Saline Lock; Complete Time: 05:11 pkl 08/30 05:02 Order name: Labs collected and sent; Complete Time: 05:12 pkl 08/30 05:02 Order name: O2 Per Protocol; Complete Time: 05:11 pkl 08/30 05:02 Order name: O2 Sat Monitoring; Complete Time: 05:12 pkl 08/30 05:14 Order name: Duggan; Complete Time: 05:54 pkl 08/30 08:14 Order name: Accucheck Blood Glucose; Complete Time: 09:23 cp 08/30 09:18 Order name: Regular EDMS Administered Medications: 05:18 Drug: NS 0.9% 1000 ml Route: IV; Rate: 100 ml/hr; Site: right antecubital; ea 10:23 Follow up: Response: No adverse reaction; IV Status: Infusion continued upon admission ph 09:53 Drug: Tylenol 650 mg Route: PO; ph 10:23 Follow up: Response: No adverse reaction ph 09:53 Drug: Rocephin - (cefTRIAXone) 1 grams Route: IVPB; Infused Over: 30 mins; Site: right ph antecubital; 10:22 Follow up: Response: No adverse reaction; IV Status: Completed infusion ph 09:54 Drug: NS 0.9% 250 ml Route: IV; Rate: bolus; Site: right antecubital; ph 10:21 Follow up: Response: No adverse reaction; IV Status: Completed infusion ph 10:05 Drug: Zithromax 500 mg Route: IVPB; Infused Over: 1 hrs; Site: right antecubital; ph 11:15 Follow up: Response: No adverse reaction; IV Status: Completed infusion ph Point of Care Testing: Blood Glucose: 09:15 Blood Glucose: 139 mg/dL; ph Ranges: Critical Glucose Levels:Adult <50 mg/dl or >400 mg/dl <40 mg/dl or >180 mg/dl Disposition: 14:43 Co-signature as Attending Physician, Riki Jha MD I agree with the assessment and kdr plan of care. Disposition: 08/30/18 09:07 Hospitalization ordered by Celestino Suarez for Inpatient Admission. Preliminary diagnosis are Pneumonia due to other specified bacteria, Pain in left lower leg, Pain in right lower leg. - Bed requested for Telemetry/MedSurg (Inpatient). - Status is Inpatient Admission. ph - Condition is Stable. - Problem is new. - Symptoms have improved. UTI on Admission? No Signatures: Dispatcher [employer] EDMS Sasha Ventura RN RN Shin Greenberg MD MD pkl Rittger, Kevin, MD MD kdr Ballard, Brenda, RN RN bb Leonila Kimbrough RN RN ph Cheryle, Artur PA PA Ursula Khalil RN RN ea Corrections: (The following items were deleted from the chart) 11:58 09:07 Hospitalization Ordered by Celestino Suarez MD for Inpatient Admission. Preliminary dw diagnosis is Pneumonia due to other specified bacteria; Pain in left lower leg; Pain in right lower leg. Bed requested for Telemetry/MedSurg (Inpatient). Status is Inpatient Admission. Condition is Stable. Problem is new. Symptoms have improved. UTI on Admission? No. cp 12:18 11:58 08/30/2018 09:07 Hospitalization Ordered by Celestino Suarez MD for Inpatient ph Admission. Preliminary diagnosis is Pneumonia due to other specified bacteria; Pain in left lower leg; Pain in right lower leg. Bed requested for Telemetry/MedSurg (Inpatient). Status is Inpatient Admission. Condition is Stable. Problem is new. Symptoms have improved. UTI on Admission? No. dw
--- NOTE | 2018-08-30 09:14 | RAD REPORT ---
EXAM DESCRIPTION: US - Extrem Venous W Compress Max - 08/30/2018 8:16 am CLINICAL HISTORY: Bilateral leg pain and swelling. COMPARISON: None. TECHNIQUE: Real-time sonographic evaluation of the bilateral lower extremity common femoral, superfi cial femoral, popliteal and posterior tibial veins was performed. FINDINGS: Normal compressibility, flow augmentation, phasic flow and spontaneous flow are identified in the left and right lower extremity common femoral, superficial femoral, popliteal and posterior t ibial veins. No intraluminal filling defects seen. Left popliteal fossa contains a 2.4 cm cyst. No cyst rupture or hemorrhage seen. IMPRESSION: No DVT in either lower extremity. Approximately 2.4 centimeter intact left popliteal fossa cyst.
[2018-08-30] MEDS ORDERED: ONDANSETRON 4 MG/2 ML VIAL IV PRN (09:15)
[2018-08-30] MEDS ORDERED: ACETAMINOPHEN 325 MG TABLET ONE (09:43)
[2018-08-30] MEDS ORDERED: NA CHLORIDE 0.9% 500 ML ONE (09:44)
[2018-08-30] MEDS ORDERED: CEFTRIAXONE/SWI 1gm 1 GM/10 ML SYR ONE (09:44)
[2018-08-30] MEDS ORDERED: AZITHROMYCIN 500 MG/250 ML BAG ONE (09:45)
[2018-08-30] MEDS: CEFTRIAXONE/SWI 1gm 1 GM/10 ML SYR IVP SCH ×2 (10:00→21:00)
[2018-08-30] MEDS ORDERED: ENOXAPARIN 40 MG/0.4 ML SQ SCH (10:00)
[2018-08-30 12:48] VITALS: BMI 27.2
[2018-08-30] MEDS ORDERED: INFLUENZA VACCINE (for 3y+) 0.5 ML DOSE IMVAC ONE (13:00)
[2018-08-30] MEDS ORDERED: GLUCAGON 1 MG/VIAL IM PRN (13:48)
[2018-08-30] MEDS ORDERED: D50W 25 GM/50 ML SYRINGE IV PRN (13:48)
[2018-08-30] MEDS: ACETAMINOPHEN 500 MG TAB PO PRN (15:03)
[2018-08-30] MEDS: INSULIN -REGULAR HUMAN 50 UNIT/0.5 ML ML SQ SCH ×2 (16:30→21:00)
[2018-08-30] MEDS: ALBUTEROL 2.5 MG/3 ML NEB SOL NEB PRN ×2 (16:50→20:08)
[2018-08-30] MEDS: IPRATROPIUM BROM 0.5MG/2.5ML NEB PRN ×2 (16:50→20:08)
[2018-08-30] MEDS: CARVEDILOL 3.125 MG TAB PO SCH (18:03)
[2018-08-30] MEDS: TRAMADOL HCL 50 MG TAB PO PRN (18:49)
--- NOTE | 2018-08-30 20:47 | HP ---
Date of Admission: 08/30/2018 Chief Complaint: Leg pain. History Of Present Illness: This is an 83-year-old female patient, who was having some chills during last night and last 2-3 days she is having increasing bilateral leg pain causing difficulty even wal poa with this pain. She came into the emergency room via ambulance. Her temperature as recorded by EMS was 100.4 degree Fahrenheit. After she was evaluated in the ER, I was contacted requesting admi ssion to the hospital with pneumonia and cellulitis. The patient denies any vomiting, diarrhea. She sees her account general manager, Dr. Benedict regularly and gets blood work done. CBC on a weekly basis. She was on treatment for CLL, but due to significant thrombocytopenia about 2 months ago or so, it was disco ntinued and Dr. Benedict is following her with weekly CBC as I understand. When she had significant thro mbocytopenia about 2 months ago, her anti-platelet therapy was discontinued at that time as risk of c ontinuing antiplatelet therapy was considered to be higher than the benefit. When I saw her in the e mergency room this morning, her was present with her at bedside. Allergies: SHE IS LISTED ALLERGIC TO ATORVASTATIN, WHICH IS ACTUALLY SIDE EFFECT OF MYALGIA; GEMF IBROZIL CAUSING NAUSEA AND SWEATING; SIMVASTATIN CAUSING MYALGIA. Medications: List reviewed. Review of Systems: Dermatology: As mentioned above. Musculoskeletal: As mentioned above. Constitutional: As mentioned above. All other systems reviewed and negative. Social History: Negative for smoking and alcohol use. Family History: Significant for pulmonary fibrosis and hypertension. Past Surgical History: Significant for surgery for spinal stenosis in 2011, AICD placement in 2012 w ith low ejection fraction of around 25%. TAVR October 2017 for aortic valve stenosis. Tubal ligatio n, right hand ulnar nerve surgery, coronary artery angioplasty with stent placement x3 in 2004, catar act surgery, appendectomy, breast biopsy, hysterectomy, surgery for pterygium. Past Medical History: Significant for chronic kidney disease stage 3, CLL, aortic wall stenosis, dep ression, atrial fibrillation, diabetes mellitus, hyperlipidemia, thrombocytopenia, anemia, coronary a rtery disease, diverticulosis, gastroesophageal reflux disease, hypertension, chronic systolic conges tive heart failure. Physical Examination: Vital Signs: The patient's temperature was 100.5 as recorded by EMS. When I saw her, her heart rate was 75, respiratory rate 18, oxygen saturation 97%, blood pressure 102/44. General: Awake, alert, oriented, not in distress. HEENT: Head atraumatic, normocephalic. Conjunctivae nonerythematous. Sclerae white. Mouth, no thr ush or edema noted. Ears/Nose, no mass, lesion, discharge noted. Neck: Supple. No JVD, lymph nodes, bruit, or thyromegaly noted. Lungs: Bilateral good equal air entry. Clear to auscultation. No rhonchi. Presence of right basal rales. Not using any accessory muscles of respiration. Heart: Normal heart sounds, no murmur or gallop. Abdomen: Soft, bowel sounds normal. No guarding, rigidity, tenderness, mass, hepatosplenomegaly, di stention, or bruit noted. Extremities: Patient has faint pink skin discoloration in the left lower extremity, warm to touch an d tender to touch. This is mostly in the anterior leg between knee and ankle. No open wound. Skin: No rash, ulcer, cellulitis. Lymphatics: No lymph node enlargement in neck, supraclavicular, infraclavicular region. Neuro: No focal neurological deficit. Chest: Unremarkable. External Genitalia: Deferred. Rectal: Deferred. Laboratory Data: White count 33.2, hemoglobin 10, platelets 53. D-dimer 1086, INR 1.13. Sodium 138 , potassium 5.5, chloride 106, bicarb 23. BUN 60, creatinine 1.40, glucose 194. Liver function test s unremarkable. C-reactive protein 60.30. Troponin less than 0.02. Procalcitonin 0.18. ProBNP 200 5. Lactic acid 0.6. Urinalysis negative. Chest x-ray, lateral right base pneumonia. EKG, normal s inus rhythm, normal EKG. No acute ST-T changes. Impression: 1.Cellulitis, left lower extremity. 2.Pneumonia, right lung. 3.Chronic lymphocytic leukemia. 4.Anemia. 5.Thrombocytopenia. 6.Hyperkalemia. 7.Chronic kidney disease, stage 3. 8.Coronary artery disease. 9.Chronic systolic congestive heart failure. 10.Paroxysmal atrial fibrillation. 11.Diabetes mellitus, type 2. 12.Hyperlipidemia. 13.Hypertension. 14.Gastroesophageal reflux disease. Plan: Admit the patient to hospital for further evaluation and management of this problem. Patient is appropriate for inpatient and is expected to spend 2 midnights in hospital. We will continue her home medications per order. Ambulation will be encouraged as she tolerates to help reduce chances of blood clot. We will not be able to give any anticoagulation therapy for DVT prophylaxis because of her thrombocytopenia. Diabetes will be managed with sliding scale insulin and empiric antibiotic bethany l be given at this point using ceftriaxone and azithromycin. I will see her tomorrow for followup. We will monitor her blood count, electrolytes, and renal function while in the hospital. Details and plan of treatment discussed with the patient and her , who was at bedside. I will see her to gary for followup. DELANO/ZACK Voice ID: [id number]
[2018-08-30] MEDS ORDERED: CEFTRIAXONE 1 GM/NS 50 ML 50 ML IV SCH (21:00)
[2018-08-30] MEDS: BUMETANIDE 1 MG TABLET PO SCH (21:00)
[2018-08-30] MEDS: ATORVASTATIN 10 MG TAB PO SCH (21:11)
[2018-08-30] MEDS: GABAPENTIN 100 MG CAP PO SCH (21:11)
[2018-08-31] MEDS: PANTOPRAZOLE 40MG TABLET PO SCH (05:15)
[2018-08-31] MEDS: CARVEDILOL 3.125 MG TAB PO SCH ×2 (05:15→17:13)
[2018-08-31 06:20] LABS: Absolute Lymphocytes (CBC) 29.3 K/uL (0.7-4.9); Absolute Monocytes 0.4 K/uL (0.1-1.3); Absolute Neutrophil 1.4 K/uL (1.8-8.0); Basophils % 0.4 % (0-1.3); Eosinophils % 0.1 % (0-4.4); Hematocrit 26.8 % (36.0-45.0); Lymphocytes % 93.7 % (15.3-44.8); MCH 34.3 pg (27.0-35.0); MCV 107.1 fL (80-100); MPV 9.5 fL (7.6-11.3); Monocytes % 1.2 % (3.3-12.3)
[2018-08-31 06:35] LABS: Potassium 4.9 mmol/L (3.5-5.1)
[2018-08-31 06:46] LABS: Urine White Blood Cell Casts OK
[2018-08-31 06:47] LABS: Anisocytosis 1+; Blood Morphology Comment NOTED (NOT SEEN); Macrocytosis 1+; Platelet Estimate DECR
--- NOTE | 2018-08-31 06:52 | EKG ---
Test Date: 2018-08-30 Test Time: 17:35:14 Ticket Puller: TRUMAN MEASUREMENT RESULTS: Intervals: Rate: 100 MO: 140 QRSD: 124 QT: 354 QTc: 456 [place]: P: 35 MO: 140 QRS: -24 T: 251 INTERPRETIVE STATEMENTS: Normal sinus rhythm Left bundle branch block Abnormal ECG Compared to ECG 08/30/2018 05:46:27 Sinus tachycardia no longer present Electronically Signed On 08-31-18 06:51:49 HOG OPERATOR by Yaniv Machado
[2018-08-31] MEDS: INSULIN -REGULAR HUMAN 50 UNIT/0.5 ML ML SQ SCH ×4 (07:30→21:00)
[2018-08-31] MEDS: TRAMADOL HCL 50 MG TAB PO PRN ×3 (08:46→20:49)
[2018-08-31] MEDS: ACETAMINOPHEN 500 MG TAB PO PRN (08:48)
[2018-08-31] MEDS: BUMETANIDE 1 MG TABLET PO SCH ×2 (08:57→20:46)
[2018-08-31] MEDS: DULOXETINE 30 MG CAP PO SCH (08:57)
[2018-08-31] MEDS: GABAPENTIN 100 MG CAP PO SCH ×2 (08:58→20:46)
[2018-08-31] MEDS: CEFTRIAXONE/SWI 1gm 1 GM/10 ML SYR IVP SCH ×2 (08:58→20:47)
[2018-08-31] MEDS: CYANOCOBALAMIN 1,000 MCG TAB PO SCH (08:59)
[2018-08-31] MEDS: CEPACOL LOZENGES PO PRN (08:59)
[2018-08-31] MEDS: MAGNESIUM CHLORIDE 64 MG TAB PO SCH (08:59)
[2018-08-31] MEDS: AZITHROMYCIN IV 250 MG in NA CHLORIDE 0.9% 250 ML IVPB SCH (13:18)
[2018-08-31] MEDS ORDERED: INFLUENZA VACCINE (for 3y+) 0.5 ML DOSE IMVAC ONE (18:00)
[2018-08-31] MEDS: ATORVASTATIN 10 MG TAB PO SCH (20:47)
--- NOTE | 2018-08-31 21:45 | PN ---
Date of Progress Note: 08/31/2018 Subjective: The patient was seen this morning for followup. No new complaints problems reported by the patient except her pain in her left leg which she says is better today compared to yesterday. No shortness of breath. No chest pain. Objective: Vital Signs: Reviewed. HEENT: Examination unremarkable. Lungs: Bilateral good equal air entry, not in respiratory distress. Presence of some right basal ra les, unchanged from yesterday. Heart: Sounds normal. Abdomen: Soft. Bowel sounds normal. No guarding, rigidity, tenderness, or distention. Extremities: No leg edema. Left leg has tenderness present over anterior legs with some warmness of skin. Overall, it is slightly better today than yesterday. Laboratory Data: White count 31.2, hemoglobin 8.6, platelets 52. Sodium 139, potassium 4.9, chlorid e 106, bicarb 25, BUN 47, creatinine 1.10, glucose 175. Last troponin 0.10. Impression: 1.Cellulitis, left leg. 2.Pneumonia, right lower lobe. 3.Coronary artery disease. 4.Chronic systolic congestive heart failure. 5.Paroxysmal atrial fibrillation. 6.Chronic lymphocytic leukemia. 7.Anemia, chronic. 8.Thrombocytopenia, chronic. Plan: We will go ahead and continue current antibiotics. Ambulation was encouraged. We will go ahe ad and discontinue the patient's Duggan catheter. Physical therapy to help ambulate the patient. We will continue current Rocephin and azithromycin. I will see her tomorrow for followup and we will monitor her blood work. DELANO/MODL Voice ID: [id number] Report ID: [id number]
[2018-09-01] MEDS: CEPACOL LOZENGES PO PRN ×3 (02:12→20:31)
[2018-09-01] MEDS: TRAMADOL HCL 50 MG TAB PO PRN ×3 (04:03→17:48)
[2018-09-01 04:19] LABS: Absolute Lymphocytes (CBC) 25.8 K/uL (0.7-4.9); Absolute Monocytes 0.3 K/uL (0.1-1.3); Absolute Neutrophil 1.2 K/uL (1.8-8.0); Basophils % 0.3 % (0-1.3); Eosinophils % 0.3 % (0-4.4); Hematocrit 25.3 % (36.0-45.0); Lymphocytes % 94.3 % (15.3-44.8); MCH 35.2 pg (27.0-35.0); MCV 106.7 fL (80-100); MPV 10.2 fL (7.6-11.3); Monocytes % 0.9 % (3.3-12.3); RBC Red Blood Cell Count 2.37 M/uL (3.86-4.86)
[2018-09-01 04:30] LABS: Magnesium 1.6 mg/dL (1.8-2.4); Potassium 4.6 mmol/L (3.5-5.1)
[2018-09-01] MEDS: PANTOPRAZOLE 40MG TABLET PO SCH (05:29)
[2018-09-01] MEDS: CARVEDILOL 3.125 MG TAB PO SCH ×2 (05:29→17:44)
[2018-09-01] MEDS: INSULIN -REGULAR HUMAN 50 UNIT/0.5 ML ML SQ SCH ×4 (07:30→20:32)
[2018-09-01] MEDS: MAGNESIUM CHLORIDE 64 MG TAB PO SCH (08:54)
[2018-09-01] MEDS: BUMETANIDE 1 MG TABLET PO SCH ×2 (08:54→20:30)
[2018-09-01] MEDS: GABAPENTIN 100 MG CAP PO SCH ×2 (08:54→20:30)
[2018-09-01] MEDS: CYANOCOBALAMIN 1,000 MCG TAB PO SCH (08:54)
[2018-09-01] MEDS: DULOXETINE 30 MG CAP PO SCH (08:54)
[2018-09-01] MEDS: CEFTRIAXONE/SWI 1gm 1 GM/10 ML SYR IVP SCH ×2 (08:56→20:31)
[2018-09-01] MEDS: AZITHROMYCIN IV 250 MG in NA CHLORIDE 0.9% 250 ML IVPB SCH (08:57)
--- NOTE | 2018-09-01 09:06 | RAD REPORT ---
EXAM DESCRIPTION: RAD - Chest Pa And Lat (2 Views) - 09/01/2018 8:44 am CLINICAL HISTORY: Pneumonia COMPARISON: August 30 TECHNIQUE: PA and lateral views of the chest were obtained. FINDINGS: The lungs are better aerated than on comparison. Lateral right lung base pneumonia has par tially cleared. Small amount of infiltrate remains. Pneumonia findings are superimposed on chronic in terstitial lung disease. Defibrillator remains in place. Stent at the root of the aorta still present . Heart size is normal and central vasculature is within normal limits. No pleural effusion or pne umothorax seen. No acute bony finding noted. No aortic abnormality. IMPRESSION: Significant clearing of the lateral right lung base pneumonia. No new or progressive fin ding.
[2018-09-01] MEDS: ATORVASTATIN 10 MG TAB PO SCH (20:30)
--- NOTE | 2018-09-01 23:13 | PN ---
Date of Progress Note: 09/01/2018 Subjective: The patient was seen this morning for followup. No new complaints or problems reported by patient. Lying in bed, not in distress. Overall, she feels better. Her leg pain is better. Yes terday, she did ambulate with physical therapy. No shortness of breath, nausea, vomiting. Objective: Vital Signs: Reviewed. HEENT: Examination unremarkable. Lungs: Bilateral good equal air entry, not in respiratory distress. Presence of some rales noted in right lower lung field, unchanged from yesterday. Heart: Sounds normal. Abdomen: Soft. Bowel sounds normal. No guarding, rigidity, tenderness, or distention. Extremities: No leg edema. Left lower extremity, warmness and tenderness in the left lower leg is m uch better today than yesterday. Laboratory Data: Labs reviewed. Impression: 1.Cellulitis, left leg. 2.Pneumonia. 3.Anemia. 4.Thrombocytopenia. 5.Chronic lymphocytic leukemia. 6.Coronary artery disease. 7.Diabetes mellitus. 8.Hypertension. Plan: We will continue current antibiotic. Continue current medications. The patient's hemoglobin and thrombocytopenia and anemia problem is stable. No need for blood transfusion on further interven tion. We will get a chest x-ray done today. Ambulation was encouraged. Possible discharge to go home tomorrow depending on patient's condition and x-ray result s. DELANO/ZACK Voice ID: [id number] Report ID: [id number]
[2018-09-02] MEDS: CARVEDILOL 3.125 MG TAB PO SCH (05:07)
[2018-09-02] MEDS: CEPACOL LOZENGES PO PRN (05:07)
[2018-09-02] MEDS: TRAMADOL HCL 50 MG TAB PO PRN (05:11)
[2018-09-02] MEDS: PANTOPRAZOLE 40MG TABLET PO SCH (05:29)
[2018-09-02] MEDS: INSULIN -REGULAR HUMAN 50 UNIT/0.5 ML ML SQ SCH (07:30)
[2018-09-02] MEDS: CEFTRIAXONE/SWI 1gm 1 GM/10 ML SYR IVP SCH (08:48)
[2018-09-02] MEDS: CYANOCOBALAMIN 1,000 MCG TAB PO SCH (08:49)
[2018-09-02] MEDS: BUMETANIDE 1 MG TABLET PO SCH (08:49)
[2018-09-02] MEDS: GABAPENTIN 100 MG CAP PO SCH (08:49)
[2018-09-02] MEDS: DULOXETINE 30 MG CAP PO SCH (08:49)
[2018-09-02] MEDS: MAGNESIUM CHLORIDE 64 MG TAB PO SCH (08:50)
[2018-09-02 08:51] VITALS: BP 129/60
[2018-09-02 08:53] VITALS: TEMP 97.2
[2018-09-02] MEDS: AZITHROMYCIN IV 250 MG in NA CHLORIDE 0.9% 250 ML IVPB SCH (09:00)
[2018-09-02 09:41] VITALS: O2SAT 93
--- NOTE | 2018-09-03 17:45 | DS ---
Date of Discharge: 09/02/2018 Disposition: Discharged to go home. Physical Examination: HEENT: Unremarkable. Lungs: Clear to auscultation. No rhonchi or rales. Heart: Sounds normal. Abdomen: Soft. Bowel sounds normal. No guarding, rigidity, tenderness, or distention. Extremities: No leg edema. No evidence of any redness, warmness, or tenderness of left lower extrem ity today. Hospital Course: This is an 83-year-old female patient admitted to the hospital with complaints of l eg pain. Please see dictated H and P for more information. The patient was evaluated in the emergen cy room. She was admitted to the hospital with cellulitis of left leg and pneumonia in the right low er lung. After she was evaluated and admitted to the hospital, she was started on ceftriaxone and az ithromycin. Home medications were continued per order. Her cellulitis in left leg was causing a lot of leg pain and she had trouble walking in the beginning, but as her condition improved, she started to ambulate. Physical Therapy was consulted, and the patient ambulated very well with the Physical Therapy. Today, she feels like she is back to her normal self. Her chest x-ray was repeated yesterd ay and shows the pneumonia has significantly improved. We continue to monitor her vital signs and bl ood work. The patient has chronic pain in her knees and is requesting some medication for that. She is not able to take any nonsteroidal anti-inflammatory medication and Tylenol, that she has tried, h as not helped her knee pain, so we will try Voltaren gel per order. Final Diagnoses: 1.Cellulitis, left leg. 2.Pneumonia, right lung. 3.Chronic lymphocytic leukemia. 4.Anemia. 5.Thrombocytopenia. 6.Hyperkalemia. 7.Coronary artery disease. 8.Chronic kidney disease, stage 3. 9.Chronic systolic congestive heart failure. 10.Paroxysmal atrial fibrillation. 11.Diabetes mellitus, type 2. 12.Hyperlipidemia. 13.Hypertension. 14.Gastroesophageal reflux disease. Discharge Medications And Instructions: 1.Continue all prior home medications except change your magnesium tablet and take 1 pill 4 times a day. Originally when I wrote the discharge order instruction that magnesium dose at home that she was taking 1 tablet daily, but the patient's clarifies and told me that she is takin g 3 tablets daily, so I have advised him that the patient should take 1 extra pill so total of 4 tabl ets daily. 2.Azithromycin 250 mg p.o. daily for 4 days and cefuroxime 500 mg twice a day for 1 week. The patie nt was advised to take antibiotics with food. 3.Use Voltaren gel 3 times a day as needed for arthritis pain in her knees. 4.Follow up at my office a week after, and the patient was advised to bring all of her home medicati ons with her at the time of followup visit. DELANO/ZACK Voice ID: [id number] Report ID: [id number]
== END 2018-09-02 09:45 | disposition home or self-care (01) | DRG 602 ==
LOC: ER 04:39 → ERHOLD 09:13 → 4TH 12:13
PROVIDERS: ADMIT Internal Medicine; ATTEND Internal Medicine
DX: L03.116 Cellulitis of left lower limb (principal); J18.9 Pneumonia, unspecified organism; C91.10 Chronic lymphocytic leukemia of B-cell type not having achieved remission; I13.0 Hypertensive heart and chronic kidney disease with heart failure and stage 1 through stage 4 chronic kidney disease, or unspecified chronic kidney disease; I50.22 Chronic systolic (congestive) heart failure; D64.9 Anemia, unspecified; D69.6 Thrombocytopenia, unspecified; E87.5 Hyperkalemia; I25.10 Atherosclerotic heart disease of native coronary artery without angina pectoris; E11.22 Type 2 diabetes mellitus with diabetic chronic kidney disease; N18.3 Chronic kidney disease, stage 3 (moderate); I48.0 Paroxysmal atrial fibrillation; E78.5 Hyperlipidemia, unspecified; K21.9 Gastro-esophageal reflux disease without esophagitis; Z88.8 Allergy status to other drugs, medicaments and biological substances; Z95.810 Presence of automatic (implantable) cardiac defibrillator; Z95.2 Presence of prosthetic heart valve; Z95.5 Presence of coronary angioplasty implant and graft
CPT/HCPCS: 36415; 51702; 71045; 71046; 80048; 80076; 81003; 81015; 82962; 83605; 83735; 83880; 84132; 84145; 84484; 85025; 85379; 85610; 85652; 86140; 87040; 87804; 93005; 93970; 94640; 94760; 96361; 96365; 96367; 97163; 99285; G0008; J0456; J0696; J7030; Q2035

== ENCOUNTER 2018-10-26 12:28 | Emergency (ER) | payer OTHER ==
--- OUTSIDE RECORDS SUMMARY | 2018-10-26 13:25 | XMS REPORT | Continuity of Care Document ---
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 [address] [place] [address] with heart failure 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 [address] [place] [address] failure 3 MONTHS Active [address] HOSPITAL F/U Active [address] CHEST PAIN Active [address] Nonrheumatic [facility] aortic stenosis [address] [place] [address] HOSPITAL FOLLOW Active [facility] UP [address] [place] [address] SHORTNESS OF Active [facility] BREATH [address] [place] [address] DR HAIRSTON TOLD PT Active [facility] TO [address] 1 WK POST OP F/U Active [address] PULMONARY Active [facility] FUNCTION TEST [address] [place] [address] TAVR Active [address] AORTIC STENOSIS Active [address] ARTIC STENOSIS Active [address] DX:CAD / Active [address] CCL/R Active [address] A FIB Active [address] SCI Active 012 Rehabilitation LUMBAR RAD Active [address], Rehabilitation Spinal stenosis Active Problem Data [facility] lumbar 012 8 migrated Medical region<sup>4, from [facility], 5</sup> Centricity Center for Adv on 06/20/15. Heart Failure Low back Resolved Problem Data [facility] pain<sup>1, 2, 012 8 migrated Medical 3</sup> from [facility], Centricity Center for Adv on 06/20/15. Heart Failure, OPID [place] LUMBAR Active [facility] RADICULOPATHY [address] [place] [address] Diabetes Resolved Problem Center for 997 8 Adv Heart Failure,[facility] Diabetes Resolved Problem Center for 997 8 Adv Heart Failure,[facility] Diabetes Resolved Problem Center for 997 8 Adv Heart Failure,[facility] Breast biopsy and Resolved Problem [facility] CAD - Coronary Active Problem [facility] artery [facility] DM - Diabetes Active Problem [facility] mellitus [facility] for [facility] Heart Failure,[facility] Heart attack Resolved Problem OPID 8 Julian,[facility] Center for Adv Heart Failure,[facility] Laminectomy Resolved Problem OPID 8 Julian,[facility], Center for Adv Heart Failure,[facility] Lumbar region Resolved Problem [facility] injury [facility] Heart [facility] O/E - pain Resolved Problem OPID 8 [facility] for [facility] Heart Failure,[facility] CAD - Coronary Active Problem OPID artery disease 3 [facility] DM - Diabetes Active Problem OPID mellitus 3 Julian,[facility] Laminectomy Active Problem OPID 3 Julian,[facility] O/E - pain Active Problem OPID 3 Julian,[facility] Stented artery Active Problem [facility] Breast biopsy and Resolved Problem [facility] related [address] [place] [address] Center procedures Cataract Resolved Problem [address] Heart attack Active Problem OPID 3 Julian,[facility] Lumbar region Resolved Problem [facility] injury [address] [address] Stented artery Active Problem OPID 8 Julian,[facility] Stented artery [facility] Failure 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[address] [place] [address] Center replacement Essential [facility] hypertension [address] [place] [address] Center Hyperlipidemia, [facility] unspecified [address] [place] [address] Center Type 2 diabetes [facility] mellitus with Medical Center unspecified complications Cataract Resolved Problem OPID 6 Julian,[facility] Final: Illness, [facility] unspecified Medical Center Shortness of [facility] breath [address] [place] [address] Center 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 [address] [place] [address] [address] Center Alkalosis [address] Center Type 2 diabetes [facility] mellitus with Medical Center hyperglycemia Other disorders [facility] of phosphorus [address] [place] [address] Center metabolism Hypermagnesemia [place] [address] Medical Center Thrombocytopenia, [facility] unspecified Medical Center Cardiomyopathy, [facility] unspecified Medical Center Acute kidney [facility] failure, Medical Center unspecified Hypo-osmolality [facility] and hyponatremia [address] [place] [address] Center Atherosclerotic [facility] heart disease of [address] [place] [address] Center [place] coronary artery without angina pectoris 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 [address] [place] [address] Center Presence of [facility] automatic cardiac 8 Medical Center defibrillator 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 [address] [place] [address]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 [address] [place] [address] Center disease Presence of [facility] coronary [address] [place] [address] angioplasty implant and graft Claustrophobia [address] Anxiety disorder, [facility] unspecified [address] [place] [address] Monoarthritis, [facility]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[address] [place] [address] classified, 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 [address] [place] [address]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 use of [facility] insulin [address] [place] [address] care home use of [facility] anticoagulants [address] [place] [address] Constipation, [facility] unspecified [address] [place] [address] Center Other [facility] chondrocalcinosis [address] [place] [address] Center , right knee Other [facility] chondrocalcinosis [address] [place] [address] , left wrist Other [facility] chondrocalcinosis [address] [place] [address] , right wrist Hyperkalemia [address] Center Severe aortic Active Problem [facility] stenosis [address] [place] [address], OPID [place] 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[place], 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 Julian having achieved remission Foot swelling Resolved Problem [address], OPID [place] HTN (<span Active Problem [facility] ID="[id number]" 8 Medical >Confirmed</span> Center, OPID ) Julian Splenomegaly, not OPID elsewhere [address] [place] [address] classified Localized OPID enlarged lymph [address] [place] [address] nodes Type 2 diabetes [facility] mellitus without [address] [place] [address] Center complications Acute myocardial [facility] infarction, [address] [place] [address] unspecified Spinal stenosis, [facility] lumbar region [address] [place] [address] without neurogenic claudication Other specified [facility] postprocedural [address] [place] [address] states Anemia, [facility] unspecified [address] [place] [address] [address] [facility] [address] [place] [address] Center 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 [address] [place] [address] Center valve Acute respiratory [facility] failure with 8 Medical Center hypoxia Ischemic [facility]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 8 [facility] LUMBOSACRAL Active [facility] NEURITIS NOS Medical [place] LUMBAR DISC Active DISPLACEMENT Rehabilitation, [facility] OTHER GENERAL Active SYMPTOMS Rehabilitation ILLNESS, Active [facility] UNSPECIFIED [facility] SHORTNESS OF Active [facility] BREATH [facility] ANEMIA, Active [facility] UNSPECIFIED [facility] Center Medications Medication Details Route Status Patient Ordering Order Source Instructions Provider Date potassium 20 mEq=1 tab, Active [facility] chloride 20 mEq PO, Daily, # 2018 Medical oral tablet, 30 tab, 3 Center extended release Refill(s) valsartan 40 mg 40 mg=1 tab, Active 05/01[facility] oral tablet PO, BID, # 60 2018 Medical tab, 6 Center Refill(s) clopidogrel 75 75 mg=1 tab, Active 05/01[facility] mg oral tablet PO, Daily, # 2018 Medical 30 tab, 6 Center Refill(s) carvedilol 12.5 12.5 mg=1 Active 05/01[facility] mg oral tablet tab, PO, BID, 2018 Medical # 60 tab, 6 Center Refill(s) bumetanide 1 mg 1 mg=1 tab, Active 05/01[facility] oral tablet PO, Daily, # 2018 Medical 30 tab, 6 Center Refill(s) Bumex 1 mg, 1 tab, No Longer [facility] Route: PO, Active 2017 Medical Drug form: [place] TAB, Daily, Dosing Weight 64.091, kg, Start date: 04/30/18 9:00:00 CDT, Duration: 30 day, Stop date: 05/29/18 9:00:00 CDTNotes: (Same As: Bumex) Bumex 2 mg, 8 mL, No Longer [facility] Route: IV, Active 2017 Medical Drug form: [place] INJ, TID, Dosing Weight 64.091, kg, Start date: 04/27/18 13:00:00 CDT, Stop date: 04/29/18 22:00:00 CDTNotes: (Same As: Bumex) Vitamin B 12 250 No Longer [facility] microgram, 1 Active 2017 Medical tab, Route: [place] PO, Drug form: TAB, Daily, Dosing Weight 64.091, kg, Start date: 04/26/18 9:00:00 CDT, Duration: 30 day, Stop date: 05/25/18 9:00:00 CDTNotes: (Same As: Vitamin B12) clopidogrel 75 mg, 1 tab, No Longer [facility] Route: PO, Active 2017 Medical Drug form: Center TAB, Daily, Dosing Weight 64.091, kg, Start date: 04/26/18 9:00:00 CDT, Duration: 30 day, Stop date: 05/25/18 9:00:00 CDTNotes: (Same As: Plavix) carvedilol 12.5 mg, 1 No Longer [place] tab, Route: Active 2017 Medical PO, Drug Center form: TAB, BID, Dosing Weight 64.091, kg, Start date: 04/26/18 9:00:00 CDT, Duration: 30 day, Stop date: 05/25/18 17:00:00 CDTNotes: Give with food. (Same As: Coreg) valsartan 40 mg, 1 tab, No Longer [facility] Route: PO, Active 2017 Medical Drug form: Center TAB, BID, Dosing Weight 64.091, kg, Start date: 04/26/18 9:00:00 CDT, Duration: 30 day, Stop date: 05/25/18 17:00:00 CDTNotes: Same as Ge Aspirin 81 MG 81 mg, 1 tab, No Longer [facility] Chewable Tablet Route: PO, Active 2017 Medical Drug form: [place] CHEWTAB, Daily, Dosing Weight 64.091, kg, Start date: 04/26/18 9:00:00 CDT, Duration: 30 day, Stop date: 05/25/18 9:00:00 CDTNotes: Take with food. NIFEdipine 30 mg 30 mg, 1 tab, No Longer [facility] oral tablet, Route: PO, Active 2017 Medical extended release Drug form: [place] ERTAB, Daily, Dosing Weight 64.091, kg, Start date: 04/26/18 9:00:00 CDT, Duration: 30 day, Stop date: 05/25/18 9:00:00 CDT heparin sodium, 5,000 unit, 1 No Longer [place] porcine 2500 mL, Route: Active 2018 Medical UNT/ML SUB-Q, Drug Center Injectable form: INJ, Solution Q12H, Dosing Weight 64.091, kg, Start date: 04/26/18 9:00:00 CDT, Duration: 30 day, Stop date: 05/25/18 21:00:00 CDTNotes: porcine heparin duloxetine 30 mg, 1 cap, No Longer [place] Route: PO, Active 2017 Medical Drug form: [place] DRC, Daily, Dosing Weight 64.091, kg, Start date: 04/26/18 9:00:00 CDT, Duration: 30 day, Stop date: 05/25/18 9:00:00 CDTNotes: (Same as: Cymbalta) (Do Not Crush) Hydralazine 20 mg, 1 mL, No Longer [place] Route: IVP, Active 2017 Medical Drug form: [place] INJ, Q4H, Dosing Weight 64.091, kg, PRN Hypertension, Start date: 04/25/18 23:08:00 CDT, Duration: 30 day, Stop date: 05/25/18 23:07:00 CDT, SBP>160Notes: (Same as: Apresoline) Push over 5 minutes insulin glargine 8 unit, 0.08 No Longer [place] mL, Route: Active 2017 Medical SUB-Q, Drug Center form: SOLN, Bedtime, Start date: 04/25/18 22:30:00 CDT, Duration: 30 day, Stop date: 05/25/18 21:00:00 CDTNotes: (Same as: Lantus) Do not hold insulin without contacting prescriber WASTE: F/P - Black; E - [employer] Tr[employer] "single patient use only" valacyclovir 500 mg, 1 No Longer [place] tab, Route: Active 2017 Medical PO, Drug Center form: TAB, Q24H, Dosing Weight 64.091, kg, Start date: 04/25/18 21:00:00 CDT, Duration: 30 day, Stop date: 05/24/18 21:00:00 CDTNotes: (Same As: Valtrex) 1.5 ML Insulin 10 unit, Inactive [place] Glargine 300 Route: SUB-Q, 2018 Medical UNT/ML Prefilled Drug form: [place] Syringe [Toujeo] SOLN, Bedtime, Dosing Weight 64.091, kg, Start date: 04/25/18 21:00:00 CDT, Duration: 30 day, Stop date: 05/24/18 21:00:00 CDT bumetanide 10 mg 60 mL, Rate: No Longer [facility] + Infuse as Active 2018 Medical directed, Center Dosing Weight 64.091, kg, Route: IV, Total Volume: 100 mL, Start Date: 04/25/18 20:32:00 CDT, Duration: 30 day, Stop date: 05/25/18 20:31:00 CDT, Replace Every: 24 hrNotes: (Same as: Bumex) Bumex 1 mg, 4 mL, Inactive [facility] Route: IVP, 2017 Medical Drug form: [place] INJ, ONCE, Dosing Weight 64.091, kg, Start date: 04/25/18 20:32:00 CDT, Stop date: 04/25/18 20:32:00 CDTNotes: (Same As: Bumex) Tylenol 650 mg, 2 No Longer [facility] tab, Route: Active 2017 Medical PO, Drug Center form: TAB, Q4H, PRN Pain Score 1-3, Start date: 04/25/18 20:29:00 CDT, Duration: 14 day, Stop date: 05/09/18 20:28:00 CDTNotes: Do not exceed 4 gm/day. (Same as: Tylenol) Calcium 3 gm, 30 mL, No Longer [facility] Gluconate Route: IVPB, Active 2017 Medical PRN, Dosing Center Weight 64.091, kg, PRN Abnormal Lab Result, For NON-ICU Patients Only., Start date: 04/25/18 20:26:00 CDT, Duration: 30 day, Stop date: 05/25/18 20:25:00 CDTNotes: WASTE: F/P - Sink; E - [employer] Magnesium 1 gm, 100 mL, No Longer [facility] Sulfate Route: IVPB, Active 2017 Medical Drug form: Center INJ, PRN, Dosing Weight 64.091, kg, PRN Abnormal Lab Result, For NON-ICU Patients Only., Start date: 04/25/18 20:26:00 CDT, Duration: 30 day, Stop date: 05/25/18 20:25:00 CDTNotes: WASTE: F/P - Sink; E - [employer] Trash [employer] sodium phosphate 30 mmol, 10 No Longer [place] mL, Route: Active 2018 Medical IVPB, PRN, Center Dosing Weight 64.091, kg, PRN Abnormal Lab Result, For NON-ICU Patients Only., Start date: 04/25/18 20:26:00 CDT, Duration: 30 day, Stop date: 05/25/18 20:25:00 CDT Magnesium Oxide 800 mg, 2 No Longer [place] tab, Route: Active 2018 [facility] PO, Drug Center form: TAB, PRN, Dosing Weight 64.091, kg, PRN Abnormal Lab Result, For NON-ICU Patients Only., Start date: 04/25/18 20:26:00 CDT, Duration: 30 day, Stop date: 05/25/18 20:25:00 CDTNotes: (Same as: Mag-Ox 400) Magnesium oxide [id number] elemental magnesium Dose=____mg magnesium oxide (___mg elemental magnesium) potassium 30 mmol, 10 No Longer [place] phosphate mL, Route: Active 2018 Medical IVPB, PRN, Center Dosing Weight 64.091, kg, PRN Abnormal Lab Result, For NON-ICU Patients Only., Start date: 04/25/18 20:26:00 CDT, Duration: 30 day, Stop date: 05/25/18 20:25:00 CDTNotes: (Same as: K Phosphate.) 1 mMol phoshate has 1.47 mEq potassium Infuse over 4 hours Potassium 10 mEq, 50 No Longer [place] Chloride mL, Route: Active 2018 [facility] IV, Drug Center form: INJ, PRN, Dosing Weight 64.091, kg, PRN Abnormal Lab Result, For NON-ICU Patients Only, Start date: 04/25/18 20:26:00 CDT, Duration: 30 day, Stop date: 05/25/18 20:25:00 CDTNotes: (Same as: KCL) Infuse over 2 hours. potassium 2 pkt, Route: No Longer [place] phosphate-sodium PO, Drug Active 2017 Medical phosphate [...] Insulin Lispro 1 unit, 0.01 No Longer [place] mL, Route: Active 2017 Medical SUB-Q, Drug [...] from _Date bumetanide 1 mg See Active [place] oral tablet Instructions, 2018 Medical 2 tab PO qAM Center and 1 tab PO qPM, # 90 tab, 3 Refill(s), Pharmacy: [facility]/pharmacy #[id number] valsartan 40 mg 40 mg=1 tab, Active [facility] oral tablet PO, BID, # 60 2018 Medical tab, 3 Center Refill(s), Pharmacy: [facility]/pharmacy #[id number] carvedilol 12.5 12.5 mg=1 No Longer [facility] mg oral tablet tab, PO, BID, Active 2017 Medical 0 Refill(s) Center Neulasta 6 mg, 0.6 mL, Inactive [facility] Route: SUB-Q, 2017 Medical Drug form: Center INJ, On Adm, Start date: 03/20/18 8:00:00 CDT, Duration: 1 doses or times, Stop date: 03/20/18 23:00:00 CDTNotes: (Same as: Neulasta) Restricted to Outpatient Benadryl 50 mg, 1 mL, Inactive [facility] Route: IVP, 2017 Medical Drug form: KELLI Cardenas, Start date: 03/19/18 7:00:00 CDT, Duration: 1 doses or times, Stop date: 03/19/18 21:00:00 CDTNotes: (Same as: Benadryl) Tylenol 650 mg, 2 Inactive [facility] tab, Route: 2018 Medical PO, Drug Center form: TABKELLI, Start date: 03/19/18 7:00:00 CDT, Duration: 1 doses or times, Stop date: 03/19/18 21:00:00 CDTNotes: Do not exceed 4 gm/day. (Same as: Tylenol) dexamethasone 8 mg, 2 mL, Inactive [facility] Route: IV, 2017 Medical Drug form: KELLI Cardenas, Start date: 03/19/18 7:00:00 CDT, Duration: 1 doses or times, Stop date: 03/19/18 21:00:00 CDT meperidine 25 mg, 1 mL, No Longer [facility] Route: IVP, Active 2017 Medical Drug form: [place] INJ, Q2H, PRN Chills/Rigors , Start date: 03/19/18 7:00:00 CDT, Duration: 1 day, Stop date: 03/20/18 6:59:00 CDTNotes: (Same as: Demerol) "Use Precaution in Elderly, Seizure disorders, and Renal impairment" riTUXimab + 600 mg, 60 Inactive [facility] Sodium Chloride mL, Route: 2018 Medical 0.9% IV 190 mL IV, Drug Center form: KAUSHIKAcaciaKELLI, Start date: 03/19/18 7:00:00 CDT, Duration: 1 doses or times, Stop date: 03/19/18 21:00:00 CDTNotes: (Do not administer IV push or bolus). Final Concentration =1 mg/mL. Do not send via pneumatic tube system. CHEMOTHERAPY WASTE: F/P - Black; E - Yellow MEDICATION WASTE Product Size: 500 mg / 100 mg Product Wasted: __0_ mg ondansetron 8 mg, 50 mL, Inactive [place] Route: IVPB, 2017 Medical Drug form: KELLI Thompson, Start date: 03/19/18 7:00:00 CDT, Duration: 1 doses or times, Stop date: 03/19/18 21:00:00 CDTNotes: (Same as: Zofran) Use with 50 mL NS bag bendamustine 80 Route: IV, Inactive [facility] mg + Overfill Drug form: 2017 Medical Diluent KELLI ESPINOZA, Center Estimated 5 mL + Start date: Sodium Chloride 03/19/18 0.9% IV 50 mL 7:00:00 CDT, Duration: 1 doses or times, Stop date: 03/19/18 21:00:00 CDTNotes: (Same as: [place]) WASTE: F/P - Black; E - Yellow CHEMOTHERAPY; Infuse entire contents for full dose valACYclovir 500 500 mg=1 tab, Active [facility] mg oral tablet PO, Q24H, # 2018 Medical 90 tab, 1 Center Refill(s), Pharmacy: [facility]/pharmacy #[id number] Acetaminophen 325 mg, PO, Active [facility] QID, 0 2018 Medical Refill(s) Center NIFEdipine 30 mg 30 mg=1 tab, Active [facility] oral tablet, PO, Daily, # 2018 Medical extended release 30 tab, 0 Center Refill(s) doxycycline 100 mg=1 cap, Active [facility] hyclate 100 MG PO, Q12H, # 2018 Medical Oral Capsule 20 cap, 0 Center Refill(s), Pharmacy: [facility]/pharmacy #[id number] Neulasta 6 mg, 0.6 mL, Inactive [facility] Route: SUB-Q, 2017 Medical Drug form: KELLI Cardenas, Start date: 02/11/18 15:35:00 CDT, Duration: 1 doses or times, Stop date: 02/12/18 0:00:00 CDTNotes: (Same as: Neulasta) Restricted to Outpatient 1.5 ML Insulin 10 unit, Active [facility] Glargine 300 SUB-Q, 2018 Medical UNT/ML Prefilled Bedtime, # 5 Center Syringe [Toujeo] mL, 0 Refill(s) carvedilol 6.25 6.25 mg=1 Active [facility] mg oral tablet tab, PO, BID, 2018 Medical 0 Refill(s) Center Aspirin 81 MG 81 mg=1 tab, Active [facility] Chewable Tablet PO, Daily, 0 2018 Medical Refill(s) Center cyanocobalamin 250 Active [facility] 500 mcg microgram=0.5 2018 Medical sublingual tab, PO, Center tablet Daily, # 45 tab, 0 Refill(s) valACYclovir 500 500 mg=1 tab, Active [facility] mg oral tablet PO, Q24H, 0 2017 Medical Refill(s) [place] potassium 40 mEq=2 tab, Active [facility] chloride 20 mEq PO, Daily, 0 2018 Medical oral tablet, Refill(s) [place] extended release pantoprazole 40 40 mg=1 tab, Active [facility] mg oral enteric PO, Before 2018 Medical coated tablet Breakfast, 0 [place] Refill(s) levofloxacin 250 250 mg=1 tab, Active [facility] mg oral tablet PO, [id number], 2018 Medical 0 Refill(s) [place] Furosemide 40 MG 40 mg=1 tab, Active [facility] Oral Tablet PO, BID, 0 2017 Medical Refill(s) Center fluconazole 100 100 mg=1 tab, Active [facility] mg oral tablet PO, [id number], 2018 Medical 0 Refill(s) [place] DULoxetine 30 mg 30 mg=1 cap, Active [facility] oral delayed PO, Daily, 0 2018 Medical release capsule Refill(s) Center clopidogrel 75 75 mg=1 tab, Active [facility] mg oral tablet PO, Daily, 0 2018 Medical Refill(s) Center Clonidine 0.1 mg=1 tab, Active [place] Hydrochloride PO, BID, 0 2018 Medical 0.1 MG Oral Refill(s) [place] Tablet magnesium oxide 800 mg=2 tab, Active [place] 400 mg oral PO, Daily, X 2018 Medical tablet 30 day, # 60 Center tab, 0 Refill(s) Granix 300 Inactive [facility] microgram, 2018 Medical 0.5 mL, Center Route: SUB-Q, Drug form: SOLN, ONCE, Dosing Weight 63.273, kg, Priority: Routine, Start date: 02/06/18 8:00:00 CDT, Stop date: 02/06/18 8:00:00 CDTNotes: (Same as: Granix) Do not administer earlier than 24 hours after or in the 24 hours prior to cytotoxic chemotherapy. insulin, 10 unit, 0.1 Inactive 02/05[facility] isophane mL, Route: 2017 Medical SUB-Q, Drug Center [...] _Date Insulin regular 5 unit, 0.05 Inactive 02/05[facility] mL, Route: [address] [place] [address], Drug Center form: SOLN, ONCE, Dosing Weight [...] from _Date insulin, 15 unit, 0.15 Inactive 02/05[facility] isophane mL, Route: 2017 Medical [facility], Drug Center form: INJ, ONCE, Dosing Weight [...] _Date dexamethasone 8 mg, 2 mL, Inactive [facility] Route: IV2017 Medical Drug form: [place] INJ, ONCE, Start date: 02/04/18 22:27:00 CDT, Stop date: 02/04/18 22:27:00 CDTNotes: Concentration : 4mg/ml dexamethasone 8 mg, 0.8 mL, Inactive [facility] Route: IV2017 Medical Drug form: [place] INJ, ONCE, Start date: 02/04/18 22:21:00 CDT, Stop date: 02/04/18 22:21:00 CDTNotes: MEDICATION WASTE Product Size: 10 mg Product Wasted: __2_ mg dexamethasone 8 mg, 0.8 mL, Inactive [facility] Route: IV2017 Medical Drug form: [place] INJ, ONCALL, Start date: 02/04/18 21:00:00 CDT, Duration: 1 doses or times, Stop date: 02/05/18 20:59:00 CDTNotes: MEDICATION WASTE Product Size: 10 mg Product Wasted: __2_ mg EPINEPHrine 1 0.1 mg, 1 mL, No Longer [facility] mg/10ml Route: IV, Active 2018 Medical (1:10,000) Drug form: [place] injectable SOLN, ONCALL, solution PRN Allergic reaction, Start date: 02/04/18 21:00:00 CDT, Duration: 1 day, Stop date: 02/05/18 20:59:00 CDTNotes: Luer lock syringe Zofran 8 mg, 4 mL, Inactive [facility] Route: IV, 2017 Medical Drug form: [place] INJ, ONCALL, Start date: 02/04/18 21:00:00 CDT, Duration: 1 doses or times, Stop date: 02/05/18 20:59:00 CDTNotes: (Same as: Zofran) MEDICATION WASTE Product Size: 4 mg Product Wasted: ___0 mg Solu-CORTEF 100 mg, 2 mL, No Longer [place] Route: IV, Active 2017 Medical Drug form: [place] PDR/INJ, ONCALL, PRN Allergic reaction, Start date: 02/04/18 21:00:00 CDT, Duration: 1 day, Stop date: 02/05/18 20:59:00 CDTNotes: (Same as: Solu-CORTEF) bendamustine 110 Route: IV, No Longer [place] mg + Overfill Drug form: Active 2018 Medical Diluent SOLN ONCALL, Center Estimated 5 mL + Start date: Sodium Chloride 02/04/18 0.9% IV 50 mL 21:00:00 CDT, Duration: 1 doses or times, Stop date: 02/05/18 20:59:00 CDTNotes: (Same as: [place]) WASTE: F/P - Black; E - Yellow CHEMOTHERAPY; Infuse entire contents for full dose Benadryl 50 mg, 1 mL, No Longer [place] Route: IV, Active 2017 Medical Drug form: [place] INJ, ONCALL, PRN Allergic reaction, Start date: 02/04/18 18:02:00 CDT, Duration: 1 day, Stop date: 02/05/18 18:01:00 CDTNotes: (Same as: Benadryl) Elitek + Sodium 6 mg, Route: Inactive [place] Chloride 0.9% IV IVPB KELLI, [facility] Medical 50 mL Start date: [place] 02/04/18 18:00:00 CDT, Duration: 1 doses or [...] Xanax) Humalog 15 unit, 0.15 No Longer [place] mL, Route: Active 2017 Medical SUB-Q, Drug [...] _Date Insulin Glargine 10 unit, No Longer [place] 100 UNT/ML Route: SUB-Q, Active 2017 Medical Injectable Daily, Dosing Center Solution Weight 63.273, kg, Start date: 02/03/18 9:00:00 CDT, Duration: 30 day, Stop date: 03/04/18 9:00:00 CDT Insulin Glargine 10 unit, 0.1 No Longer [place] 100 UNT/ML mL, Route: Active 2017 Medical Injectable SUB-Q, Drug Center Solution form: SOLN, Bedtime, Dosing Weight 63.273, kg, Start date: 02/02/18 21:00:00 CDT, Stop date: 03/03/18 21:00:00 CDTNotes: (Same as: Lantus) Do not hold insulin without contacting prescriber WASTE: F/P - Black; E - Municipal Trash Bin "single patient use only" Magnesium Oxide 800 mg, 2 No Longer [place] tab, Route: Active 2018 Medical PO, Drug Center form: TAB, BID, Dosing Weight 63.273, kg, Start date: 02/02/18 17:00:00 CDT, Duration: 30 day, Stop date: 03/04/18 9:00:00 CDTNotes: (Same as: Mag-Ox 400) Magnesium oxide [id number] elemental magnesium Dose=____mg magnesium oxide (___mg elemental magnesium) Ondansetron 4 mg, 2 mL, No Longer [place] Route: IVP, Active 2018 Medical Drug form: [place] INJ, Q4H, Dosing Weight 63.273, kg, PRN Nausea, Start date: 02/02/18 16:15:00 CDT, Duration: 30 day, Stop date: 03/04/18 16:14:00 CDTNotes: (Same as: Zofran) MEDICATION WASTE Product Size: 4 mg Product Wasted: ___ mg Magnesium Oxide 800 mg, Inactive [facility] Route: PO, 2017 Medical Drug form: [place] TAB, Daily, Dosing Weight 63.273, kg, Start date: 02/02/18 15:26:00 CDT, Duration: 30 day, Stop date: 03/04/18 9:00:00 CDT Versed 0.5 mg, Inactive [facility] Route: IV, 2017 Medical ONCE, Dosing Center Weight 63.273, kg, Start date: 02/02/18 14:49:00 CDT, Stop date: 02/02/18 14:49:00 CDT Fentanyl 25 microgram, Inactive [facility] Route: IV, 2017 Medical ONCE, Dosing Center Weight 63.273, kg, Start date: 02/02/18 14:49:00 CDT, Stop date: 02/02/18 14:49:00 CDT Versed 0.5 mg, Inactive [facility] Route: IV, 2017 Medical ONCE, Dosing Center Weight 63.273, kg, Start date: 02/02/18 14:44:00 CDT, Stop date: 02/02/18 14:44:00 CDT Fentanyl 25 microgram, Inactive [facility] Route: IV, 2017 Medical ONCE, Dosing Center Weight 63.273, kg, Start date: 02/02/18 14:44:00 CDT, Stop date: 02/02/18 14:44:00 CDT Furosemide 40 MG 40 mg, 1 tab, No Longer [place] Oral Tablet Route: PO, Active 2017 Medical Drug form: [place] TAB, BID, Dosing Weight 63.273, kg, Start date: 02/01/18 17:00:00 CDT, Duration: 30 day, Stop date: 03/03/18 9:00:00 CDTNotes: (Same as: Lasix) May cause GI upset. Give with food or milk. Vitamin B12 1,000 Inactive [place] microgram, 1 2018 Medical mL, Route: [place] IM, Drug form: INJ, ONCE, Dosing Weight 63.273, kg, Start date: 02/01/18 12:18:00 CDT, Stop date: 02/01/18 12:18:00 CDTNotes: (Same As: Vitamin B12) Rasburicase 6 mg, Route: Inactive [place] IV, ONCE, 2018 Medical Dosing Weight Center [...] Active 2018 Medical oral tablet, PO, Drug [place] extended release form: ERTAB, Daily, Dosing Weight 63.273, kg, Start date: 01/31/18 9:00:00 CDT, Duration: 30 day, Stop date: 03/01/18 9:00:00 CDT potassium 40 mEq, 2 No Longer [place] chloride 20 mEq tab, Route: Active 2018 Medical oral tablet, PO, Drug [place] extended release form: ERTAB, Daily, Dosing Weight [...] ;s with feeding tube less than 14 Indonesian (Dobhoff, J-tube etc) and pediatric and patients. With food and full glass of water Vitamin B 12 250 No Longer [place] microgram, 1 Active 2018 Medical tab, Route: [place] PO, Drug form: TAB, Daily, Dosing Weight 63.273, kg, Start date: 01/30/18 9:00:00 CDT, Duration: 30 day, Stop date: 02/28/18 9:00:00 CDTNotes: (Same As: Vitamin B12) Lasix 40 mg, 4 mL, No Longer [facility] Route: IVP, Active 2017 Medical Drug form: Center INJ, BID, Dosing Weight 63.273, kg, Start date: 01/29/18 17:00:00 CDT, Stop date: 02/28/18 9:00:00 CDTNotes: (Same as: Lasix) MEDICATION WASTE Product Size: 40 mg Product Wasted: ___ mg Humulin N 8 unit, 0.08 Inactive [place] mL, Route: 2017 Medical SUB-Q, Drug Center [...] _Date insulin, 20 unit, 0.2 No Longer [facility] isophane mL, Route: Active 2017 Medical SUB-Q, [...] _Date dexamethasone 40 mg, 10 No Longer [facility] tab, Route: Active 2017 Medical PO, Drug Center form: TAB, Q24H, Start date: 01/29/18 14:00:00 CDT, Duration: 2 doses or times, Stop date: 01/30/18 14:00:00 CDTNotes: Give with food. (Same As: Decadron) insulin regular 10 unit, 0.1 Inactive [facility] 100 units/mL mL, Route: 2018 [facility] recombinant form: SOLN, ONCE, Start date: 01/29/18 [...] _Date insulin regular 10 unit, 0.1 Inactive [facility] 100 units/mL mL, Route: 2018 [facility] recombinant form: SOLN, ONCE, Start date: 01/29/18 [...] _Date Ferrlecit 125 mg, 10 No Longer [facility] mL, Route: Active 2018 Medical IVPB, Daily, Center Dosing Weight 63.273, kg, Start date: 01/29/18 10:46:00 CDT, Duration: 10 doses or times, Stop date: 02/07/18 9:00:00 CDTNotes: (sodium ferric gluconate complex (elemental iron) 62.5 mg/5 ml INJ) "Limited stability. Use immediately after admixture" (Same as: Ferrlecit) MEDICATION WASTE Product Size: 62.5 mg Product Wasted: ___ mg Vitamin B 12 1,000 Inactive [facility] microgram, 1 2018 Medical mL, Route: Center IM, Drug form: INJ, ONCE, Dosing Weight 63.273, kg, Start date: 01/29/18 9:01:00 CDT, Stop date: 01/29/18 9:01:00 CDTNotes: (Same As: Vitamin B12) Lasix 40 mg, 4 mL, Inactive [facility] Route: IVP, 2018 Medical Drug form: Center INJ, BID, Dosing Weight 63.273, kg, Start date: 01/29/18 9:00:00 CDT, Duration: 30 day, Stop date: 02/27/18 17:00:00 CDTNotes: (Same as: Lasix) MEDICATION WASTE Product Size: 40 mg Product Wasted: ___ mg insulin, 7 unit, 0.07 Inactive [facility] isophane mL, Route: 2018 Medical SUB-Q, [...] Paramjit packet 1 pkt, Route: No Longer [facility] PO, Drug Active 2017 Medical Form: PWDR, Center Dosing Weight 63.273, kg, BID-Before Meals, Start date: 01/28/18 16:30:00 CDT, Duration: 14 day, Stop date: 02/11/18 7:30:00 CDTNotes: (Same as: Paramjit Griffiths) Insulin Lispro 6 unit, 0.06 No Longer [facility] mL, Route: Active 2017 Medical SUB-Q, [...] Dextrose 50% 12.5 gm, 25 No Longer [facility] Syringe mL, Route: Active 2018 Medical IVP, Drug Center Form: INJ, Dosing Weight 63.273, kg, PRN, PRN Blood Glucose Results, Start date: 01/28/18 15:41:00 CDT, Duration: 30 day, Stop date: 02/27/18 15:40:00 CDT Glucagon 1 mg, Route: No Longer [facility] IM, Drug Active 2017 Medical form: Center PDR/INJ, PRN, Dosing Weight 63.273, kg, PRN Blood Glucose Results, Start date: 01/28/18 15:41:00 CDT, Duration: 30 day, Stop date: 02/27/18 15:40:00 CDT insulin, 10 unit, 0.1 No Longer [facility] isophane mL, Route: Active 2017 Medical SUB-Q, [...] from _Date Rasburicase 6 mg, Route: Inactive [facility] IV, ONCE, 2018 Medical Dosing Weight [...] Insulin Lispro 8 unit, 0.08 No Longer [facility] mL, Route: Active 2017 Medical SUB-Q, [...] _Date Insulin regular 10 unit, 0.1 Inactive [facility] mL, Route: 2017 [facility] IV, Drug Center form: SOLN, ONCE, Dosing [...] 3 ML Insulin 5 unit, 0.05 Inactive [facility] Glargine 100 mL, Route: 2017 [facility] UNT/ Prefilled SUB-Q, Drug Center Syringe [Lantus] form: SOLN, ONCE, Dosing Weight 63.273, kg, Start date: 01/28/18 11:13:00 CDT, Stop date: 01/28/18 11:13:00 CDTNotes: Same as: Lantus) Do not hold insulin without contacting prescriber WASTE: F/P - Black; E - Municipal Tra Bin Insulin Lispro 10 unit, Inactive [place] Route: SUB-Q, 2018 Medical ONCE, Dosing Center Weight 63.273, kg, Start date: 01/28/18 11:11:00 CDT, Stop date: 01/28/18 11:11:00 CDT NIFEdipine 30 mg 30 mg, 1 tab, No Longer [place] oral tablet, Route: PO, Active 2018 Medical extended release Drug form: Center ERTAB, Daily, Dosing Weight 63.273, kg, Start date: 01/28/18 9:00:00 CDT, Duration: 30 day, Stop date: 02/26/18 9:00:00 CDT potassium 20 mEq, 1 No Longer [place] chloride 20 mEq tab, Route: Active 2017 [...] Patients with feeding tube less than 14 Indonesian (Dobhoff, J-tube etc) and pediatric and patients. With food and full glass of water Lovenox 30 mg, 0.3 No Longer [place] mL, Route: Active 2018 Medical SUB-Q, Drug Center form: INJ, [id number], Dosing Weight 63.273, kg, For CrCl Notes: (Same as: Lovenox) Magnesium Oxide 800 mg, 2 No Longer [facility] tab, Route: Active 2018 Medical PO, Drug Center form: TAB, Daily, Dosing Weight 63.273, kg, Start date: 01/28/18 9:00:00 CDT, Duration: 30 day, Stop date: 02/26/18 9:00:00 CDTNotes: (Same as: Mag-Ox 400) Magnesium oxide [id number] elemental magnesium Dose=____mg magnesium oxide (___mg elemental magnesium) Docusate Sodium 100 mg, 1 No Longer [place] 100 MG Oral cap, Route: Active 2017 [...] times, Stop date: 01/28/18 22:59:00 CDT, 1.69, [id number]: (Do not administer IV push or bolus). [...] 0.1 No Longer [place] mL, Route: Active 2018 [...] _Date Glucagon 1 mg, Route: No Longer [facility] IM, Drug Active 2017 Medical form: Center PDR/INJ, PRN, Dosing Weight 63.273, kg, PRN Blood Glucose Results, Start date: 01/27/18 22:38:00 CDT, Duration: 30 day, Stop date: 02/26/18 22:37:00 CDT Dextrose 50% 12.5 gm, 25 No Longer [facility] Syringe mL, Route: Active 2017 Medical IVP, Drug Center Form: INJ, Dosing Weight 63.273, kg, PRN, PRN Blood Glucose Results, Start date: 01/27/18 22:38:00 CDT, Duration: 30 day, Stop date: 02/26/18 22:37:00 CDT meperidine 25 mg, 1 mL, Inactive [facility] Route: IVP, 2018 Medical Drug form: Center INJ, ONCE, Start date: 01/27/18 22:30:00 CDT, Stop date: 01/27/18 22:30:00 CDTNotes: (Same as: Demerol) "Use Precaution in Elderly, Seizure disorders, and Renal impairment" Tylenol 650 mg, 2 Inactive [facility] tab, Route: 2018 Medical PO, Drug Center form: TAB, ONCE, Start date: 01/27/18 22:30:00 CDT, Stop date: 01/27/18 22:30:00 CDTNotes: Do not exceed 4 gm/day. (Same as: Tylenol) Benadryl 50 mg, 1 mL, Inactive [facility] Route: IVP, 2018 Medical Drug form: [place] INJ, ONCE, Start date: 01/27/18 22:30:00 CDT, Stop date: 01/27/18 22:30:00 CDTNotes: (Same as: Benadryl) Elitek + Sodium 6 mg, Route: Inactive [place] Chloride 0.9% IV IVPB, ONCE, 2018 Medical 50 mL Start date: [place] 01/27/18 22:30:00 CDT, Stop date: 01/27/18 22:30:00 CDTNotes: Restricted Medication: All Doses of Rasburicase should be interchanged to Rasburicase 6 mg x1 dose. A second dose may be given for patients unresponsive to 1 dose. (Same as:Elitek) MEDICATION WASTE Product Size: 1.5 mg Product Wasted: ___ mg meperidine 25 mg, 1 mL, No Longer [place] Route: IVP, Active 2017 Medical Drug form: [place] INJ, Q2H, PRN Allergic reaction, Start date: 01/27/18 21:35:00 CDT, Duration: 1 day, Stop date: 01/28/18 21:34:00 CDTNotes: (Same as: Demerol) "Use Precaution in Elderly, Seizure disorders, and Renal impairment" EPINEPHrine 1 0.1 mg, 1 mL, No Longer [place] mg/10ml Route: IVP, Active 2017 Medical (1:10,000) Drug form: [place] injectable SOLN, ONCE, solution PRN Allergic reaction, Start date: 01/27/18 21:34:00 CDTNotes: Luer lock syringe Benadryl 50 mg, 1 mL, No Longer [place] Route: IVP, Active 2017 Medical Drug form: [place] INJ, ONCE, PRN Allergic reaction, Start date: 01/27/18 21:29:00 CDTNotes: (Same as: Benadryl) Solu-CORTEF 100 mg, 2 mL, No Longer [place] Route: IVP, Active 2017 Medical Drug form: [place] PDR/INJ, ONCE, PRN Allergic reaction, Start date: 01/27/18 21:27:00 CDTNotes: (Same as: Solu-CORTEF) Zofran 8 mg, 4 mL, No Longer [facility] Route: IVP, Active 2017 Medical Drug form: Center INJ, ONCE, PRN Nausea & Vomiting, Start date: 01/27/18 21:19:00 CDTNotes: (Same as: Zofran) MEDICATION WASTE Product Size: 4 mg Product Wasted: ___ mg Lasix 40 mg, 4 mL, No Longer [facility] Route: IVP, Active 2017 Medical Drug form: Center INJ, BID, Dosing Weight 63.273, kg, Start date: 01/27/18 17:00:00 CDT, Duration: 30 day, Stop date: 02/26/18 9:00:00 CDTNotes: (Same as: Lasix) MEDICATION WASTE Product Size: 40 mg Product Wasted: ___ mg Fluconazole 100 mg, 1 No Longer [facility] tab, Route: Active 2017 Medical PO, Drug Center form: TAB, [id number], Dosing Weight 63.273, kg, Start date: 01/27/18 16:00:00 CDT, Duration: 30 day, Stop date: 02/25/18 16:00:00 CDT, ABX Indication: Immunocomprom ised Host ProphylaxisNo shabbir: (Same as: Diflucan) Saline Flush 10 mL, Route: No Longer [place] 0.9% IVP, Drug Active 2017 Medical Form: INJ, Center Dosing Weight 63.273, kg, Q8H, Start date: 01/27/18 16:00:00 CDT, Duration: 30 day, Stop date: 02/26/18 8:00:00 CDTNotes: (Same as: BD Posiflush) Levofloxacin 250 mg, 1 No Longer [facility] tab, Route: Active 2018 Medical PO, Drug Center form: TAB, [id number], Dosing Weight 63.273, kg, Start date: 01/27/18 15:18:00 CDT, Duration: 30 day, Stop date: 02/24/18 15:18:00 CDT, ABX Indication: Immunocomprom ised Host ProphylaxisNo shabbir: Do not give w/antacids, dairy pdt & minerals Take 1 hr before or 2 hr after dairy pdt (Same as:Levaquin) Lidocaine 50 mg, 5 mL, No Longer [facility] Hydrochloride 10 Route: Active 2018 Medical MG/ML Injectable INTRADERM, [place] Solution Drug Form: INJ, Dosing Weight 63.273, kg, ONCALL, Start date: 01/27/18 13:00:00 CDT, Duration: 30 day, Stop date: 02/26/18 12:59:00 CDTNotes: (Same as: Xylocaine) Saline Flush 10 mL, Route: No Longer [facility] 0.9% IVP, Drug Active 2017 Medical Form: INJ, [place] Dosing Weight 63.273, kg, PRN, PRN Line Flush, Start date: 01/27/18 12:49:00 CDT, Duration: 30 day, Stop date: 02/26/18 12:48:00 CDTNotes: (Same as: BD Posiflush) Fluconazole 100 mg, Inactive [facility] Route: PO, 2017 Medical Drug form: [place] TAB, [id number], Dosing Weight 63.273, kg, Start date: 01/27/18 12:00:00 CDT, Duration: 30 day, Stop date: 02/25/18 12:00:00 CDT, ABX Indication: Open Wound Prophylaxis valacyclovir 500 mg, 1 No Longer [facility] tab, Route: Active 2017 Medical PO, Drug Center form: TAB, Q24H, Dosing Weight 63.273, kg, Start date: 01/27/18 12:00:00 CDT, Duration: 30 day, Stop date: 02/25/18 12:00:00 CDTNotes: (Same As: Valtrex) Lasix 40 mg, 4 mL, Inactive [facility] Route: IVP, 2017 Medical Drug form: [place] INJ, Daily, Dosing Weight 63.273, kg, Start date: 01/27/18 11:27:00 CDT, Duration: 30 day, Stop date: 02/26/18 9:00:00 CDTNotes: (Same as: Lasix) MEDICATION WASTE Product Size: 40 mg Product Wasted: ___ mg duloxetine 30 mg, 1 cap, No Longer [facility] Route: PO, Active 2017 Medical Drug form: [place] DRC, Daily, Dosing Weight 63.636, kg, Start date: 01/27/18 9:00:00 CDT, Duration: 30 day, Stop date: 02/25/18 9:00:00 CDTNotes: (Same as: Cymbalta) (Do Not Crush) clopidogrel 75 mg, 1 tab, No Longer [facility] Route: PO, Active 2017 Medical Drug form: Center TAB, Daily, Dosing Weight 63.636, kg, Start date: 01/27/18 9:00:00 CDT, Duration: 30 day, Stop date: 02/25/18 9:00:00 CDTNotes: (Same As: Plavix) Clonidine 0.1 mg, 1 No Longer [place] Hydrochloride tab, Route: Active 2018 Medical 0.1 MG Oral PO, Drug Center Tablet form: TAB, BID, Dosing Weight 63.636, kg, Start date: 01/27/18 9:00:00 CDT, Duration: 30 day, Stop date: 02/25/18 17:00:00 CDTNotes: (Same As: Catapres) Lasix 40 mg, 1 tab, Inactive [facility] Route: PO, 2018 Medical Drug form: [place] TAB, Daily, Dosing Weight 63.636, kg, Start [...] Longer [place] Chewable Tablet Route: PO, Active 2017 Medical Drug form: [place] CHEWTAB, Daily, Dosing Weight 63.636, kg, Start date: 01/27/18 9:00:00 CDT, Duration: 30 day, Stop date: 02/25/18 9:00:00 CDTNotes: Take with food. Lovenox 30 mg, Route: No Longer [place] SUB-Q, Drug Active 2017 Medical form: INJ, [place] [id number], Dosing Weight 63.636, kg, For CrCl heparin 5,000 unit, 1 No Longer [place] mL, Route: Active 2018 Medical SUB-Q, Drug Center form: INJ, Q8H, Dosing Weight 63.636, kg, Start date: 01/27/18 8:00:00 CDT, Duration: 30 day, Stop date: 02/26/18 0:00:00 CDTNotes: porcine heparin pantoprazole 40 mg, 1 tab, No Longer [place] Route: PO, Active 2017 Medical Drug form: [place] ECTAB, Before Breakfast, Dosing Weight 63.636, kg, Start date: 01/27/18 7:30:00 CDT, Duration: 30 day, Stop date: 02/25/18 7:30:00 CDTNotes: Tablet should not be chewed or crushed. (Same as: Protonix) tramadol 50 mg, 1 tab, Inactive [place] hydrochloride 50 Route: PO, 2018 Medical MG Oral Tablet Drug form: [place] TAB, ONCE, Dosing Weight 63.835, kg, Start date: 01/26/18 23:12:00 CDT, Stop date: 01/26/18 23:12:00 CDTNotes: Not to exceed 400mg/day. (Same As: Ultram) Saline Flush 10 ml, Route: No Longer [place] 0.9% IVP, Drug Active 2018 Medical Form: INJ, [place] Dosing Weight 63.636, kg, Q12H, Start date: [...] CDTNotes: (Same as: Mag-Ox 400) Magnesium oxide [id number] elemental magnesium Dose=____mg magnesium oxide (___mg elemental magnesium) Calcium 2 gm, 20 mL, No Longer [place] Gluconate Route: IVPB, Active 2018 Medical PRN, Dosing Center Weight 63.636, kg, PRN Abnormal Lab Result, For NON-ICU Patients Only., Start date: 01/26/18 20:30:00 CDT, Duration: 30 day, Stop date: 02/25/18 20:29:00 CDTNotes: WASTE: F/P - Sink; E - Municipal Trash Bin potassium 2 pkt, Route: No Longer [place] phosphate-sodium PO, Drug Active 2018 Medical phosphate [...] Longer [place] Chloride tab, Route: Active 2018 [facility] PO, Drug Center form: ERTAB, PRN, Dosing [...] Patients with feeding tube less than 14 Indonesian (Dobhoff, J-tube etc) and pediatric and patients. With food and full glass of water Insulin Lispro 3 unit, 0.03 No Longer [facility] [place] mL, Route: Active 2018 Medical SUB-Q, Drug Center form: SOLN, Bedtime, [...] _Date Glucagon 1 mg, Route: No Longer [facility] IM, Drug Active 2017 Medical form: [place] PDR/INJ, PRN, Dosing Weight 63.636, kg, PRN Blood Glucose Results, Start date: 01/26/18 20:29:00 CDT, Duration: 30 day, Stop date: 02/25/18 20:28:00 CDT Dextrose 50% 12.5 gm, 25 No Longer [facility] Syringe mL, Route: Active 2018 Medical IVP, Drug Center Form: INJ, Dosing Weight 63.636, kg, PRN, PRN Blood Glucose Results, Start date: 01/26/18 20:29:00 CDT, Duration: 30 day, Stop date: 02/25/18 20:28:00 CDT Furosemide 20 mg, 2 mL, Inactive [facility] Route: IVP, 2018 Medical Drug form: [place] INJ, ONCE, Dosing Weight 63.636, kg, Start date: 01/26/18 20:25:00 CDT, Stop date: 01/26/18 20:25:00 CDTNotes: (Same as: Lasix) Saline Flush 10 ml, Route: No Longer [facility] 0.9% IVP, Drug Active 2018 Medical Form: INJ, Center Dosing Weight 63.636, kg, PRN, PRN Line Flush, Start date: 01/26/18 20:20:00 CDT, Duration: 30 day, Stop date: 02/25/18 20:19:00 CDTNotes: (Same as: BD Posiflush) Tylenol 650 mg, 2 No Longer [place] tab, Route: Active 2018 Medical PO, Drug Center form: TAB, Q6H, Dosing Weight 63.636, kg, PRN Pain Score 1-3, Start date: 01/26/18 19:54:00 CDT, Duration: 30 day, Stop date: 02/25/18 19:53:00 CDTNotes: Do not exceed 4 gm/day. (Same as: Tylenol) 1.5 ML Insulin 14 units, No Longer [place] Glargine 300 SUB-Q, Active 2018 Medical UNT/ML Prefilled Bedtime, 0 Center Syringe [Toujeo] Refill(s) glimepiride 4 mg 4 mg=1 tab, Active [place] oral tablet PO, BID, 0 2017 Medical Refill(s) Center Metformin 500 mg, PO, Active [place] BID, 0 2018 Medical Refill(s) Center Lorazepam 2 MG 2 mg=1 tab, No Longer [place] Oral Tablet PO, ONCE, Active 2018 Medical [Ativan] take 1 tab 10 Center minutes prior to [employer] and again during if needed, # 2 tab, 0 Refill(s) Furosemide 40 MG 40 mg=1 tab, No Longer [place] Oral Tablet PO, BID, # 60 Active 2018 Medical [Lasix] tab, 3 Center Refill(s), Pharmacy: [facility]/pharmacy #[id number] potassium 20 mEq=1 tab, No Longer [place] chloride 20 mEq PO, Q12H, # Active 2018 Medical oral tablet, 60 tab, 3 Center extended release Refill(s), Pharmacy: [facility]/pharmacy #[id number] Furosemide 40 MG 40 mg, 1 tab, Inactive [place] Oral Tablet Route: PO, 2018 Medical [Lasix] Drug form: [place] TAB, BID, Dosing Weight 64.091, kg, Start date: 01/05/18 9:23:00 CDT, Duration: 30 day, Stop date: 02/04/18 9:00:00 CDTNotes: (Same as: Lasix) May cause GI upset. Give with food or milk. Ambien 5 mg, 1 tab, No Longer [place] Route: PO, Active 2017 Medical Drug form: [place] TAB, Bedtime, Dosing Weight 64.091, kg, PRN Insomnia, Start date: 01/03/18 22:28:00 SUPERVISOR MARBLE, Duration: 30 day, Stop date: 02/02/18 22:27:00 CDTNotes: (Same As: Ambien) potassium 20 mEq, 1 No Longer [place] chloride 20 mEq tab, Route: Active 2018 Medical oral tablet, PO, Drug [place] extended release form: ERTAB, Q12H, Dosing Weight 64.091, kg, Start date: 01/03/18 21:00:00 SUPERVISOR MARBLE, Duration: 30 day, Stop date: 02/02/18 9:00:00 CDTNotes: (Same as: K-Dur 20) "Do Not Crush" With food and full glass of water Potassium 10 mEq, 50 No Longer [place] Chloride mL, Route: Active 2018 Medical IVPB, Drug [place] form: INJ, PRN, Dosing Weight 64.091, kg, PRN Abnormal Lab Result, For NON-ICU Patients Only, Start date: 01/03/18 13:47:00 SUPERVISOR MARBLE, Duration: 30 day, Stop date: 02/02/18 14:46:00 CDTNotes: (Same as: KCL) Infuse over 2 hours. potassium 2 pkt, Route: No Longer [place] phosphate-sodium PO, Drug Active 2018 Medical phosphate 250 Form: Center mg-280 mg-160 mg PDR/REC, oral powder for Dosing Weight reconstitution 64.091, kg, PRN, PRN Abnormal Lab Result, For NON-ICU Patients Only, Start date: 01/03/18 13:47:00 SUPERVISOR MARBLE, Duration: 30 day, Stop date: 02/02/18 14:46:00 CDTNotes: (Same as: Phos-NaK) Each 1.5 gm pkt has 250mg phosphorous. Mix w/2.5oz water and stir. potassium 15 mmol, 5 No Longer [place] phosphate mL, Route: Active 2018 Medical IVPB, PRN, Center Dosing Weight 64.091, kg, PRN Abnormal Lab Result, For NON-ICU Patients Only., Start date: 01/03/18 13:47:00 SUPERVISOR MARBLE, Duration: 30 day, Stop date: 02/02/18 14:46:00 CDTNotes: (Same as: K Phosphate.) 1 mMol phoshate has 1.47 mEq potassium Infuse over 4 hours Calcium 2 gm, 20 mL, No Longer [place] Gluconate Route: IVPB, Active 2018 Medical PRN, Dosing Center Weight 64.091, kg, PRN Abnormal Lab Result, For NON-ICU Patients Only., Start date: 01/03/18 13:47:00 SUPERVISOR MARBLE, Duration: 30 day, Stop date: 02/02/18 14:46:00 CDTNotes: WASTE: F/P - Sink; E - Municipal Trash Bin Magnesium Oxide 800 mg, 2 No Longer [place] tab, Route: Active 2018 Medical PO, Drug Center form: TAB, PRN, Dosing Weight 64.091, kg, PRN Abnormal Lab Result, For NON-ICU Patients Only., Start date: 01/03/18 13:47:00 SUPERVISOR MARBLE, Duration: 30 day, Stop date: 02/02/18 14:46:00 CDTNotes: (Same as: Mag-Ox 400) Magnesium oxide [id number] elemental magnesium Dose=____mg magnesium oxide (___mg elemental magnesium) Magnesium 1 gm, 100 mL, No Longer [place] Sulfate Route: IVPB, Active 2018 Medical Drug form: [place] INJ, PRN, Dosing Weight 64.091, kg, PRN Abnormal Lab Result, For NON-ICU Patients Only., Start date: 01/03/18 13:47:00 SUPERVISOR MARBLE, Duration: 30 day, Stop date: 02/02/18 14:46:00 CDTNotes: WASTE: F/P - Sink; E - Municipal Trash Bin sodium phosphate 15 mmol, 5 No Longer [place] mL, Route: Active 2018 [facility] IVPB, PRN, Center Dosing Weight 64.091, kg, PRN Abnormal Lab Result, For NON-ICU Patients Only., Start date: 01/03/18 13:47:00 SUPERVISOR MARBLE, Duration: 30 day, Stop date: 02/02/18 14:46:00 CDT Miralax 17 gm, 1 pkt, No Longer [place] Route: PO, Active 2018 Medical Drug form: [place] PWDR, BID, Dosing Weight 64.091, kg, Start date: 01/02/18 17:33:00 SUPERVISOR MARBLE, Duration: 30 day, Stop date: 02/01/18 17:00:00 CDTNotes: Dissolve in 8 oz of water or juice. (Same as: Miralax) Calcium 1,000 mg, 2 No Longer [place] Carbonate 500 MG tab, Route: Active 2018 Medical Chewable Tablet PO, Drug Center form: CHEWTAB, PRN, Dosing Weight 64.091, kg, PRN Abnormal Lab Result, FOR ICU USE ONLY, Start date: 01/01/18 22:59:00 SUPERVISOR MARBLE, Duration: 30 day, Stop date: 01/31/18 23:58:00 CDTNotes: (Same As: Tums) Calcium Carbonate 500 er=283 mg elemental calcium Dose= mg calcium carbonate ( mg elemental calcium) potassium 2 pkt, Route: No Longer [place] phosphate-sodium PO, Drug Active 2018 Medical phosphate 250 Form: Center mg-280 mg-160 mg PDR/REC, oral powder for Dosing Weight reconstitution 64.091, kg, PRN, PRN Abnormal Lab Result, FOR ICU USE ONLY, Start date: 01/01/18 22:59:00 SUPERVISOR MARBLE, Duration: 30 day, Stop date: 01/31/18 23:58:00 CDTNotes: (Same as: Phos-NaK) Each 1.5 gm pkt has 250mg phosphorous. Mix w/2.5oz water and stir. Calcium 1 gm, 10 mL, No Longer [place] Gluconate Route: IVPB, Active 2017 Medical PRN, Dosing Center Weight 64.091, kg, PRN Abnormal Lab Result, Start date: 01/01/18 22:59:00 SUPERVISOR MARBLE, Duration: 30 day, Stop date: 01/31/18 23:58:00 CDT, FOR ICU USE ONLYNotes: WASTE: F/P - Sink; E - Municipal Trash Bin Magnesium 2 gm, 50 mL, No Longer [place] Sulfate Route: IVPB, Active 2018 Medical Drug form: Center INJ, PRN, Dosing Weight 64.091, kg, PRN Abnormal Lab Result, Start date: 01/01/18 22:59:00 SUPERVISOR MARBLE, Duration: 30 day, Stop date: 01/31/18 23:58:00 CDT, FOR ICU USE ONLYNotes: WASTE: F/P - Sink; E - Municipal Trash Bin Magnesium Oxide 800 mg, 2 No Longer [place] tab, Route: Active 2018 Medical PO, Drug Center form: TAB, PRN, Dosing Weight 64.091, kg, PRN Abnormal Lab Result, FOR ICU USE ONLY, Start date: 01/01/18 22:59:00 SUPERVISOR MARBLE, Duration: 30 day, Stop date: 01/31/18 23:58:00 CDTNotes: (Same as: Mag-Ox 400) Magnesium oxide [id number] elemental magnesium Dose=____mg magnesium oxide (___mg elemental magnesium) sodium phosphate 15 mmol, 5 No Longer [place] mL, Route: Active 2018 Medical IVPB, PRN, Center Dosing Weight 64.091, kg, PRN Abnormal Lab Result, Start date: 01/01/18 22:59:00 SUPERVISOR MARBLE, Duration: 30 day, Stop date: 01/31/18 23:58:00 CDT, FOR ICU USE ONLY potassium 30 mmol, 10 No Longer [place] phosphate mL, Route: Active 2017 Medical IVPB, PRN, Center Dosing Weight 64.091, kg, PRN Abnormal Lab Result, Start date: 01/01/18 22:59:00 SUPERVISOR MARBLE, Duration: 30 day, Stop date: 01/31/18 23:58:00 CDT, FOR ICU USE ONLYNotes: (Same as: K Phosphate.) 1 mMol phoshate has 1.47 mEq potassium Infuse over 4 hours Potassium 20 mEq, 100 No Longer [place] Chloride mL, Route: Active 2018 [facility] IV, Drug Center form: INJ, PRN, Dosing Weight 64.091, kg, PRN Abnormal Lab Result, Via central line, Start date: 01/01/18 22:59:00 SUPERVISOR MARBLE, Duration: 30 day, Stop date: 01/31/18 23:58:00 CDT, FOR ICU USE ONLYNotes: (Same as: KCL) Infuse no faster than 10 mEq/hr if given peripherally. Insulin Glargine 11 unit, 0.11 No Longer [facility] 100 UNT/ML mL, Route: Active 2018 Medical Injectable SUB-Q, Drug Center Solution form: SOLN, Bedtime, Dosing Weight 64.091, kg, Start date: 01/01/18 21:00:00 SUPERVISOR MARBLE, Duration: 30 day, Stop date: 01/30/18 21:00:00 CDTNotes: Same as: Lantus) Do not hold insulin without contacting prescriber WASTE: F/P - Black; E - Municipal Trash Bin heparin sodium, 5,000 unit, 1 No Longer [place] porcine 2500 mL, Route: Active 2018 Medical UNT/ML SUB-Q, Drug Center Injectable form: INJ, Solution Q12H, Dosing Weight 64.091, kg, Start date: 01/01/18 21:00:00 SUPERVISOR MARBLE, Duration: 30 day, Stop date: 01/31/18 9:00:00 CDTNotes: porcine heparin Lactulose 667 10 gm, 15 mL, Inactive [place] MG/ML Oral Route: PO, 2017 Medical Solution Drug form: [place] SYRP, ONCE, Dosing Weight 64.091, kg, Start date: 01/01/18 17:33:00 SUPERVISOR MARBLE, Stop date: 01/01/18 17:33:00 CSTNotes: (Same as:Chronulac) Docusate Sodium 1 tab, Route: No Longer [place] 50 MG / PO, Drug Active 2017 [facility] sennosides, LONG TERM Form: TAB, [place] 8.6 MG Oral Dosing Weight Tablet 64.091, kg, BID, Start date: 01/01/18 17:31:00 SUPERVISOR MARBLE, Duration: 30 day, Stop date: 01/31/18 17:00:00 CDTNotes: (Same as Senokot-S) Equiv. to Indira-Colace. Dextrose 50% 25 gm, 50 mL, No Longer [place] Syringe Route: IVP, Active 2017 Medical Drug Form: [place] INJ, Dosing Weight 64.091, kg, PRN, PRN Blood Glucose Results, Start date: 01/01/18 15:43:00 SUPERVISOR MARBLE, Duration: 30 day, Stop date: 01/31/18 16:42:00 CDT Glucagon 1 mg, Route: No Longer [place] IM, Drug Active 2017 Medical form: [place] PDR/INJ, PRN, Dosing Weight 64.091, kg, PRN Blood Glucose Results, Start date: 01/01/18 15:43:00 SUPERVISOR MARBLE, Duration: 30 day, Stop date: 01/31/18 16:42:00 CDT Insulin Lispro 2 unit, 0.02 No Longer [place] mL, Route: Active 2018 Medical SUB-Q, Drug Center form: SOLN, TID-Before Meals, Dosing Weight 64.091, kg, PRN Blood Glucose Results, Start date: 01/01/18 15:43:00 SUPERVISOR MARBLE, Duration: 30 day, Stop date: 01/31/18 15:42:00 CDTNotes: (Same as: Humalog ) Roll in palms of hands gently; Do not shake `vigorously. "Single Patient Use Only " WASTE: F/P - Black; E - Municipal Trash Bin Stable for 28 days at room temperature. Expires in days from _Date NIFEdipine 30 mg 30 mg, 1 tab, No Longer [place] oral tablet, Route: PO, Active 2017 Medical extended release Drug form: [place] ERTAB, Daily, Dosing Weight 64.091, kg, Start date: 01/01/18 9:00:00 SUPERVISOR MARBLE, Duration: 30 day, Stop date: 01/30/18 9:00:00 CDTNotes: (Same as: Adalat CC, Procardia XL) Give on empty stomach. Take 1 hour before or 2 hours after meal; "Avoid grapefruit and grapefruit juice". Do not crush duloxetine 30 mg, 1 cap, No Longer [facility] Route: PO, Active 2017 Medical Drug form: [place] DRC, Daily, Dosing Weight 64.091, kg, Start date: 01/01/18 9:00:00 SUPERVISOR MARBLE, Duration: 30 day, Stop date: 01/30/18 9:00:00 CDTNotes: (Same as: Cymbalta) (Do Not Crush) clopidogrel 75 mg, 1 tab, No Longer [facility] Route: PO, Active 2017 Medical Drug form: [place] TAB, Daily, Dosing Weight 64.091, kg, Start date: 01/01/18 9:00:00 SUPERVISOR MARBLE, Duration: 30 day, Stop date: 01/30/18 9:00:00 CDTNotes: (Same As: Plavix) carvedilol 12.5 mg, 1 No Longer [place] tab, Route: Active 2018 Medical PO, Drug Center form: TAB, BID, Dosing Weight 64.091, kg, Start date: 01/01/18 9:00:00 SUPERVISOR MARBLE, Duration: 30 day, Stop date: 01/30/18 17:00:00 CDTNotes: Give with food. (Same As: Coreg) Clonidine 0.1 mg, 1 No Longer [place] Hydrochloride tab, Route: Active 2018 Medical 0.1 MG Oral PO, Drug Center Tablet form: TAB, BID, Dosing Weight 64.091, kg, Start date: 01/01/18 9:00:00 SUPERVISOR MARBLE, Duration: 30 day, Stop date: 01/30/18 17:00:00 CDTNotes: (Same As: Catapres) Aspirin 81 MG 81 mg, 1 tab, No Longer [place] Chewable Tablet Route: PO, Active 2017 Medical Drug form: [place] CHEWTAB, Daily, Dosing Weight 64.091, kg, Start date: 01/01/18 9:00:00 SUPERVISOR MARBLE, Duration: 30 day, Stop date: 01/30/18 9:00:00 CDTNotes: Take with food. pantoprazole 40 mg, 1 tab, No Longer [place] Route: PO, Active 2017 Medical Drug form: [place] ECTAB, Before Breakfast, Dosing Weight 64.091, kg, Start date: 01/01/18 7:30:00 SUPERVISOR MARBLE, Duration: 30 day, Stop date: 01/30/18 7:30:00 CDTNotes: Tablet should not be chewed or crushed. (Same as: Protonix) valacyclovir 500 mg, 1 No Longer [place] tab, Route: Active 2018 Medical PO, Drug Center form: TAB, Q24H, Dosing Weight 64.091, kg, Start date: 01/01/18 1:00:00 SUPERVISOR MARBLE, Duration: 30 day, Stop date: 01/29/18 22:30:00 CDTNotes: (Same As: Valtrex) Lasix 40 mg, 4 mL, No Longer [facility] Route: IVP, Active 2018 Medical Drug form: [place] INJ, Q12H, Dosing Weight 64.091, kg, Start date: 01/01/18 0:55:00 SUPERVISOR MARBLE, Duration: 30 day, Stop date: 01/30/18 21:00:00 CDTNotes: (Same as: Lasix) MEDICATION WASTE Product Size: 40 mg Product Wasted: ___ mg Acetaminophen 650 mg, 2 No Longer [place] 325 MG Oral tab, Route: Active 2018 Medical Tablet PO, Drug Center form: TAB, Q6H, Dosing Weight 64.091, kg, PRN Pain 1-3/Temp > 100.4 F, Start date: 01/01/18 0:54:00 SUPERVISOR MARBLE, Duration: 30 day, Stop date: 01/31/18 0:53:00 CDTNotes: Do not exceed 4 gm/day. (Same as: Tylenol) Aspirin 81 mg, 1 tab, Inactive [place] Route: PO, 2018 Medical Drug form: Center CHEWTAB, Daily, Dosing Weight 66.818, kg, Start date: 11/29/17 9:00:00 SUPERVISOR MARBLE, Duration: 30 day, Stop date: 12/28/17 9:00:00 CSTNotes: Take with food. Plavix 75 mg, 1 tab, Inactive [facility] Route: PO, 2018 Medical Drug form: Center TAB, Daily, Dosing Weight 66.818, kg, Start date: 11/29/17 9:00:00 SUPERVISOR MARBLE, Duration: 30 day, Stop date: 12/28/17 9:00:00 CSTNotes: (Same As: Plavix) valACYclovir 500 500 mg=1 tab, No Longer [place] mg oral tablet PO, Q24H, X Active 2017 Medical 90 day, # 90 Center tab, 0 Refill(s) levofloxacin 250 250 mg=1 tab, No Longer [place] mg oral tablet PO, [id number], Active 2018 Medical X 90 day, # Center 90 tab, 0 Refill(s) valACYclovir 500 500 mg=1 tab, Inactive [place] mg oral tablet PO, Q24H, 0 2018 Medical Refill(s) Center levofloxacin 250 250 mg=1 tab, Inactive [place] mg oral tablet PO, [id number], 2018 Medical 0 Refill(s) Center Furosemide 20 MG 20 mg=1 tab, No Longer [place] Oral Tablet PO, Daily, # Active 2018 Medical [Lasix] 90 tab, 0 Center Refill(s) fluconazole 100 100 mg=1 tab, No Longer [facility] mg oral tablet PO, [id number], Active 2017 Medical X 90 day, # Center 90 tab, 0 Refill(s) Acetaminophen 650 mg=2 tab, No Longer [place] 325 MG Oral PO, Q6H, PRN Active 2017 Medical Tablet Pain 1-3/Temp Center > 100.4 F, 0 Refill(s) pantoprazole 40 40 mg=1 tab, No Longer [facility] mg oral enteric PO, Before Active 2017 Medical coated tablet Breakfast, 0 Center Refill(s) NIFEdipine 30 mg 30 mg=1 tab, No Longer [facility] oral tablet, PO, Daily, 0 Active 2017 Medical extended release Refill(s) [place] Insulin Glargine 14 unit, No Longer [facility] 100 UNT/ML SUB-Q, Active 2017 Medical Injectable Bedtime, 0 [place] Solution Refill(s) DULoxetine 30 mg 30 mg=1 cap, No Longer [facility] oral delayed PO, Daily, 0 Active 2017 Medical release capsule Refill(s) [place] clopidogrel 75 75 mg=1 tab, No Longer [facility] mg oral tablet PO, Daily, 0 Active 2017 Medical Refill(s) Center Clonidine 0.1 mg=1 tab, No Longer [facility] Hydrochloride PO, BID, 0 Active 2017 Medical 0.1 MG Oral Refill(s) [place] Tablet carvedilol 12.5 6.25 mg=0.5 No Longer [facility] mg oral tablet tab, PO, BID, Active 2017 Medical 0 Refill(s) Center Aspirin 81 MG 81 mg=1 tab, No Longer [facility] Chewable Tablet PO, Daily, 0 Active 2017 Medical Refill(s) Center Midazolam Route: IV, Inactive [facility] ONCE, Dosing [facility] 66.818, kg, Start date: 11/28/17 8:30:00 SUPERVISOR MARBLE, Stop date: 11/28/17 8:30:00 SUPERVISOR MARBLE Fentanyl 25 microgram, Inactive [facility] Route: IV, 2017 Medical ONCE, Dosing Center Weight 66.818, kg, Start date: 11/28/17 8:30:00 SUPERVISOR MARBLE, Stop date: 11/28/17 8:30:00 SUPERVISOR MARBLE Midazolam 1 mg, Route: Inactive [place] IVP, Drug 2017 Medical form: INJ, Center ONCE, Dosing Weight 66.818, kg, Start date: 11/28/17 8:10:00 SUPERVISOR MARBLE, Stop date: 11/28/17 8:10:00 SUPERVISOR MARBLE Fentanyl 50 microgram, Inactive [place] Route: IVP, 2017 Medical Drug form: [place] INJ, ONCE, Dosing Weight 66.818, kg, Start date: 11/28/17 8:10:00 SUPERVISOR MARBLE, Stop date: 11/28/17 8:10:00 SUPERVISOR MARBLE potassium 2 pkt, Route: No Longer [place] phosphate-sodium PO, Drug Active 2017 Medical phosphate 250 Form: Center mg-280 mg-160 mg PDR/REC, oral powder for Dosing Weight reconstitution 66.818, kg, PRN, PRN Abnormal Lab Result, For NON-ICU Patients Only, Start date: 11/28/17 5:41:00 SUPERVISOR MARBLE, Duration: 30 day, Stop date: 12/28/17 5:40:00 CSTNotes: (Same as: Phos-NaK) Each 1.5 gm pkt has 250mg phosphorous. Mix w/2.5oz water and stir. Potassium 20 mEq, 15 No Longer [place] Chloride mL, Route: Active 2017 [facility] Drug [place] form: LIQ, PRN, Dosing Weight 66.818, kg, PRN Abnormal Lab Result, For NON-ICU Patients Only, Start date: 11/28/17 5:41:00 SUPERVISOR MARBLE, Duration: 30 day, Stop date: 12/28/17 5:40:00 CSTNotes: (Same as: Potassium Chloride) sodium phosphate 15 mmol, 5 No Longer [place] mL, Route: Active 2017 Medical IVPB, PRN, Center Dosing Weight 66.818, kg, PRN Abnormal Lab Result, For NON-ICU Patients Only., Start date: 11/28/17 5:41:00 SUPERVISOR MARBLE, Duration: 30 day, Stop date: 12/28/17 5:40:00 SUPERVISOR MARBLE potassium 15 mmol, 5 No Longer [place] phosphate mL, Route: Active 2017 Medical IVPB, PRN, Center Dosing Weight 66.818, kg, PRN Abnormal Lab Result, For NON-ICU Patients Only., Start date: 11/28/17 5:41:00 SUPERVISOR MARBLE, Duration: 30 day, Stop date: 12/28/17 5:40:00 CSTNotes: (Same as: K Phosphate.) 1 mMol phoshate has 1.47 mEq potassium Infuse over 4 hours Magnesium 1 gm, 100 mL, No Longer [place] Sulfate Route: IVPB, Active 2018 Medical Drug form: Center INJ, PRN, Dosing Weight 66.818, kg, PRN Abnormal Lab Result, For NON-ICU Patients Only., Start date: 11/28/17 5:41:00 SUPERVISOR MARBLE, Duration: 30 day, Stop date: 12/28/17 5:40:00 CSTNotes: WASTE: F/P - Sink; E - Municipal Trash Bin Calcium 3 gm, 30 mL, No Longer [place] Gluconate Route: IVPB, Active 2018 Medical PRN, Dosing Center Weight 66.818, kg, PRN Abnormal Lab Result, For NON-ICU Patients Only., Start date: 11/28/17 5:41:00 SUPERVISOR MARBLE, Duration: 30 day, Stop date: 12/28/17 5:40:00 CSTNotes: WASTE: F/P - Sink; E - Municipal Trash Bin Magnesium Oxide 800 mg, 2 No Longer [place] tab, Route: Active 2018 Medical PO, Drug Center form: TAB, PRN, Dosing Weight 66.818, kg, PRN Abnormal Lab Result, For NON-ICU Patients Only., Start date: 11/28/17 5:41:00 SUPERVISOR MARBLE, Duration: 30 day, Stop date: 12/28/17 5:40:00 CSTNotes: (Same as: Mag-Ox 400) Magnesium oxide [id number] elemental magnesium Dose=____mg magnesium oxide (___mg elemental magnesium) Rasburicase 6 mg, Route: Inactive [place] IV, ONCE, 2018 Medical Dosing Weight Center 66.818, kg, Start date: 11/27/17 9:41:00 SUPERVISOR MARBLE, Stop date: 11/27/17 9:41:00 CSTNotes: Restricted Medication: [...] form: CRM, Start date: 11/26/17 9:00:00 SUPERVISOR MARBLE, Duration: 30 day, Stop date: 12/25/17 21:00:00 CSTNotes: (Same As: Zostrix) Furosemide 40 MG 40 mg, 1 tab, No Longer [place] Oral Tablet Route: PO, Active 2017 Medical [Lasix] Drug form: Center TAB, Daily, Dosing Weight 69.909, kg, Start date: 11/26/17 9:00:00 SUPERVISOR MARBLE, Duration: 30 day, Stop date: 12/25/17 9:00:00 CSTNotes: (Same as: Lasix) May cause GI upset. Give with food or milk. heparin additive 500 mL, Rate: No Longer [place] 25,000 unit [14 16.29 ml/hr, Active 2017 Medical unit/kg/hr] + Infuse over: [place] Premix Diluent 30.7 hr, Sodium Chloride Route: IV, 0.45% 500 mL Dosing Weight 58.17 kg, Total Volume: 500 mL, Start date: 11/26/17 7:16:00 SUPERVISOR MARBLE, Duration: 30 day, Stop date: 12/26/17 7:15:00 SUPERVISOR MARBLE, 1.62, [id number]: Total Concentration =50 unit/ ml Total [id number]=536 ml Send Med Request 2 hours prior to next bag Diclofenac 2 gm, Route: No Longer [place] Sodium 0.01 TOP, Drug Active 2018 Medical MG/MG Topical form: GEL, [place] Gel [Voltaren] QID, Dosing Weight 66.818, kg, Start date: 11/25/17 21:00:00 SUPERVISOR MARBLE, Duration: 30 day, Stop date: 12/25/17 17:00:00 SUPERVISOR MARBLE Dulcolax 10 mg, 1 No Longer [place] Laxative supp, Route: Active 2018 Medical [place], Drug Center form: SUPP, Daily, Dosing Weight 66.818, kg, PRN Constipation, Start date: 11/25/17 10:46:00 SUPERVISOR MARBLE, Duration: 30 day, Stop date: 12/25/17 10:45:00 CSTNotes: (Same As: Dulcolax, Bisco-Lax) Docusate Sodium 100 mg, 1 No Longer [place] 100 MG Oral cap, Route: Active 2018 Medical Capsule PO, Drug Center form: CAP, BID, Dosing Weight 69.909, kg, Start date: 11/24/17 17:00:00 SUPERVISOR MARBLE, Duration: 30 day, Stop date: 12/24/17 9:00:00 CSTNotes: (Same as: Colace) (Do Not Crush) Lorazepam 1 mg, 0.5 mL, Inactive [place] Route: IVP, 2017 Medical Drug form: [place] INJ, ONCE, Dosing Weight 69.909, kg, PRN Anxiety, Start date: 11/24/17 11:46:00 CSTNotes: (Same as: Ativan) Alprazolam 0.25 0.25 mg, 1 Inactive [place] MG Oral Tablet tab, Route: 2018 Medical PO, Drug Center form: TAB, ONCE, Dosing Weight 69.909, kg, Start date: 11/24/17 11:46:00 SUPERVISOR MARBLE, Stop date: 11/24/17 11:46:00 CSTNotes: With food or milk (Same as: Xanax) Insulin Lispro 3 unit, 0.03 No Longer [place] mL, Route: Active 2017 Medical SUB-Q, Drug Center form: SOLN, TID-Before Meals, Dosing Weight 69.909, kg, Start date: 11/24/17 11:30:00 SUPERVISOR MARBLE, Duration: 30 day, Stop date: 12/24/17 7:30:00 CSTNotes: (Same as: Humalog ) Roll in palms of hands gently; Do not shake `vigorously. "Single Patient Use Only " WASTE: F/P - Black; E - Municipal Trash Bin Stable for 28 days at room temperature. Expires in days from _Date Miralax 17 gm, 1 pkt, No Longer [place] Route: PO, Active 2017 Medical Drug form: [place] PWDR, Daily, Dosing Weight 69.909, kg, Start date: 11/24/17 10:42:00 SUPERVISOR MARBLE, Duration: 30 day, Stop date: 12/24/17 9:00:00 CSTNotes: Dissolve in 8 oz of water or juice. (Same as: Miralax) Acetaminophen 1 tab, Route: No Longer [place] 300 MG / Codeine PO, Drug Active 2018 Medical Phosphate 30 MG Form: TAB, [place] Oral Tablet Dosing Weight [Tylenol with 69.909, kg, Codeine #3] Q8H, PRN Pain Score 1-3, Start date: 11/24/17 1:10:00 SUPERVISOR MARBLE, Duration: 30 day, Stop date: 12/24/17 1:09:00 CSTNotes: Do not exceed 4gm/day of acetaminophen . (Same as: Tylenol with Codeine # 3) Melatonin 3 MG 3 mg, 1 tab, No Longer [place] Extended Release Route: PO, Active 2017 Medical Tablet Drug Form: [place] TAB, Dosing Weight 69.909, kg, Bedtime, PRN as needed for insomnia, Start date: 11/23/17 20:51:00 SUPERVISOR MARBLE, Duration: 30 day, Stop date: 12/23/17 20:50:00 CSTNotes: (Same as: Melatonin) Furosemide 40 MG 40 mg, 1 tab, No Longer [place] Oral Tablet Route: PO, Active 2017 Medical [Lasix] Drug form: [place] TAB, BID, Dosing Weight 69.909, kg, Start date: 11/23/17 9:00:00 SUPERVISOR MARBLE, Duration: 30 day, Stop date: 12/22/17 17:00:00 CSTNotes: (Same as: Lasix) May cause GI upset. Give with food or milk. Simethicone 80 mg, 1 tab, No Longer [place] Route: CHEW, Active 2017 Medical Drug form: [place] CHEWTAB, TID, Dosing Weight 69.909, kg, PRN Gas, Start date: 11/22/17 16:31:00 SUPERVISOR MARBLE, Duration: 30 day, Stop date: 12/22/17 16:30:00 CSTNotes: (Same as: Mylicon) Lasix 20 mg, 2 mL, Inactive [place] Route: IV, 2018 Medical Drug form: [place] INJ, ONCE, Dosing Weight 69.909, kg, Start date: 11/22/17 1:33:00 SUPERVISOR MARBLE, Stop date: 11/22/17 1:33:00 CSTNotes: (Same as: Lasix) Lasix 40 mg, 4 mL, Inactive [facility] Route: IVP2017 Medical Drug form: [place] INJ, Q8H, Dosing Weight 69.909, kg, Start date: 11/21/17 20:00:00 SUPERVISOR MARBLE, Duration: 30 day, Stop date: 12/21/17 12:00:00 CSTNotes: (Same as: Lasix) MEDICATION WASTE Product Size: 40 mg Product Wasted: ___ mg Levaquin 250 mg, 1 No Longer [facility] tab, Route: Active 2017 Medical PO, Drug Center form: TAB, [id number], Dosing Weight 69.909, kg, Start date: 11/21/17 16:00:00 SUPERVISOR MARBLE, Duration: 10 day, Stop date: 11/30/17 16:00:00 SUPERVISOR MARBLE, ABX Indication: Other (specify in Comments) Furosemide 40 mg, 4 mL, Inactive [facility] Route: IVP2017 Medical Drug form: [place] INJ, ONCE, Dosing Weight 69.909, kg, Start date: 11/21/17 9:27:00 SUPERVISOR MARBLE, Stop date: 11/21/17 9:27:00 CSTNotes: (Same as: Lasix) MEDICATION WASTE Product Size: 40 mg Product Wasted: ___ mg Aspirin 81 MG 81 mg, 1 tab, No Longer [place] [facility] Enteric Coated Route: PO, Active 2017 Medical Tablet Drug form: [place] ECTAB, Daily, Dosing Weight 69.909, kg, Start date: 11/21/17 9:00:00 SUPERVISOR MARBLE, Duration: 30 day, Stop date: 12/20/17 9:00:00 CSTNotes: Do not crush or chew. (Same As: Ecotrin) NIFEdipine 30 mg 30 mg, 1 tab, No Longer [facility] oral tablet, Route: PO, Active 2017 Medical extended release Drug form: [place] ERTAB, Daily, Dosing Weight 69.909, kg, Start date: 11/21/17 9:00:00 SUPERVISOR MARBLE, Duration: 30 day, Stop date: 12/20/17 12:00:00 CSTNotes: (Same as: Adalat CC, Procardia XL) Give on empty stomach. Take 1 hour before or 2 hours after meal; "Avoid grapefruit and grapefruit juice". Do not crush Lisinopril 40 mg, 2 tab, No Longer [place] Route: PO, Active 2017 Medical Drug form: [place] TAB, Daily, Dosing Weight 69.909, kg, Start date: 11/21/17 9:00:00 SUPERVISOR MARBLE, Duration: 30 day, Stop date: 12/20/17 9:00:00 CSTNotes: (Same as: Prinivil, Zestril) duloxetine 30 mg, 1 cap, No Longer [place] Route: PO, Active 2017 Medical Drug form: [place] DRC, Daily, Dosing Weight 69.909, kg, Start date: 11/21/17 9:00:00 SUPERVISOR MARBLE, Duration: 30 day, Stop date: 12/20/17 9:00:00 CSTNotes: (Same as: Cymbalta) (Do Not Crush) clopidogrel 75 mg, 1 tab, No Longer [place] Route: PO, Active 2017 Medical Drug form: [place] TAB, Daily, Dosing Weight 69.909, kg, Start date: 11/21/17 9:00:00 SUPERVISOR MARBLE, Duration: 30 day, Stop date: 12/20/17 9:00:00 CSTNotes: (Same As: Plavix) pantoprazole 40 mg, 1 tab, No Longer [place] Route: PO, Active 2018 Medical Drug form: [place] ECTAB, Before Breakfast, Dosing Weight 69.909, kg, Start date: 11/21/17 7:30:00 SUPERVISOR MARBLE, Duration: 30 day, Stop date: 12/20/17 7:30:00 CSTNotes: Tablet should not be chewed or crushed. (Same as: Protonix) Magnesium 2 gm, 50 mL, Inactive [place] Sulfate Route: IVPB, 2018 Medical Drug form: [place] INJ, Q2H, Dosing Weight 69.909, kg, Total dose=4 gm, Start date: 11/21/17 2:00:00 SUPERVISOR MARBLE, Duration: 2 doses or times, Stop date: 11/21/17 4:00:00 CSTNotes: WASTE: F/P - Sink; E - Municipal Trash Bin heparin sodium, 5,000 unit, 1 No Longer [place] porcine 2500 mL, Route: Active 2017 Medical UNT/ML SUB-Q, Drug Center Injectable form: INJ, Solution Q8H-06, Dosing Weight 69.909, kg, Start date: 11/20/17 22:00:00 SUPERVISOR MARBLE, Duration: 30 day, Stop date: 12/20/17 14:00:00 CSTNotes: porcine heparin 1.5 ML Insulin 14 unit, Inactive [place] Glargine 300 Route: SUB-Q, 2017 [facility] UNT/ML Prefilled Drug form: Center Syringe [Toujeo] SOLN, Bedtime, Dosing Weight 69.909, kg, Start date: 11/20/17 21:00:00 SUPERVISOR MARBLE, Duration: 30 day, Stop date: 12/19/17 21:00:00 SUPERVISOR MARBLE insulin glargine 11 unit, 0.11 No Longer [place] mL, Route: Active 2017 [facility] SUB-Q, Drug Center form: SOLN, Bedtime, Start date: 11/20/17 21:00:00 SUPERVISOR MARBLE, Duration: 30 day, Stop date: 12/19/17 21:00:00 CSTNotes: (Same as: Lantus) Do not hold insulin without contacting prescriber WASTE: F/P - Black; E - Municipal Trash Bin "single patient use only" Diuril 250 mg, No Longer [place] Route: IV, Active 2017 [facility] Q8Hnow, [place] Dosing Weight 69.909, kg, Start date: 11/20/17 18:00:00 SUPERVISOR MARBLE, Duration: 2 doses or times, Stop date: 11/21/17 6:30:00 CSTNotes: (Same As: Diuril Sodium) carvedilol 12.5 mg, 1 No Longer [place] tab, Route: Active 2017 [facility] PO, Drug Center form: TAB, BID, Dosing Weight 69.909, kg, Start date: 11/20/17 17:00:00 SUPERVISOR MARBLE, Duration: 30 day, Stop date: 12/20/17 9:00:00 CSTNotes: Give with food. (Same As: Coreg) Valtrex 500 mg, 1 No Longer [place] tab, Route: Active 2018 Medical PO, Drug Center form: TAB, Q24H, Start date: 11/20/17 16:00:00 SUPERVISOR MARBLE, Duration: 30 day, Stop date: 12/19/17 16:00:00 CSTNotes: (Same As: Valtrex) famciclovir 500 500 mg, 1 Inactive [place] MG Oral Tablet tab, Route: 2018 Medical [Famvir] PO, Drug Center form: TAB, Q8H, Dosing Weight 69.909, kg, Start date: 11/20/17 16:00:00 SUPERVISOR MARBLE, Duration: 30 day, Stop date: 12/20/17 8:00:00 SUPERVISOR MARBLE Levaquin 500 mg, 100 Inactive [place] mL, Route: 2018 Medical IVPB, Drug Center form: SOLN, ONCE, Dosing Weight 69.909, kg, Start date: 11/20/17 14:43:00 SUPERVISOR MARBLE, Stop date: 11/20/17 14:43:00 SUPERVISOR MARBLE, ABX Indication: Other (specify in Comments)Note s: (Same as:Levaquin) Levaquin 500 mg, Inactive [facility] Route: IVPB, 2018 Medical Drug form: Center SOLN, [id number], Dosing Weight 69.909, kg, Start date: 11/20/17 14:00:00 SUPERVISOR MARBLE, Duration: 10 day, Stop date: 11/29/17 14:00:00 SUPERVISOR MARBLE, ABX Indication: Other (specify in Comments) Diflucan 100 mg, 1 No Longer [place] tab, Route: Active 2017 Medical PO, Drug Center form: TAB, [id number], Dosing Weight 69.909, kg, Start date: 11/20/17 14:00:00 SUPERVISOR MARBLE, Duration: 30 day, Stop date: 12/19/17 14:00:00 CSTNotes: (Same as: Diflucan) Furosemide 100 mg, 10 No Longer [place] mL, Rate: 10 Active 2018 Medical mg/hour, Center Dosing Weight 69.909, kg, Route: IV, Total Volume: 100, Start Date: 11/20/17 13:33:00 SUPERVISOR MARBLE, Duration: 30 day, Stop date: 12/20/17 13:32:00 SUPERVISOR MARBLE, Replace Every: 24 hr, continuousNot es: (Same as: Lasix) MEDICATION WASTE Product Size: 100 mg Product Wasted: ___ mg Clonidine 0.1 mg, 1 No Longer [place] Hydrochloride tab, Route: Active 2018 Medical 0.1 MG Oral PO, Drug Center Tablet form: TAB, BID, Dosing Weight 69.909, kg, Priority: NOW, Start date: 11/20/17 12:57:00 SUPERVISOR MARBLE, Duration: 30 day, Stop date: 12/20/17 9:00:00 CSTNotes: (Same As: Catapres) Insulin Lispro 3 unit, 0.03 No Longer [place] mL, Route: Active 2017 Medical SUB-Q, Drug Center form: SOLN, TID-Before Meals, Dosing Weight 69.909, kg, PRN Blood Glucose Results, Start date: 11/20/17 12:55:00 SUPERVISOR MARBLE, Duration: 30 day, Stop date: 12/20/17 12:54:00 CSTNotes: (Same as: Humalog ) Roll in palms of hands gently; Do not shake `vigorously. "Single Patient Use Only " WASTE: F/P - Black; E - Municipal Trash Bin Stable for 28 days at room temperature. Expires in days from _Date Glucagon 1 mg, Route: No Longer [place] IM, Drug Active 2018 Medical form: Center PDR/INJ, PRN, Dosing Weight 69.909, kg, PRN Blood Glucose Results, Start date: 11/20/17 12:55:00 SUPERVISOR MARBLE, Duration: 30 day, Stop date: 12/20/17 12:54:00 SUPERVISOR MARBLE Dextrose 50% 12.5 gm, 25 No Longer [place] Syringe mL, Route: Active 2018 Medical IVP, Drug Center Form: INJ, Dosing Weight 69.909, kg, PRN, PRN Blood Glucose Results, Start date: 11/20/17 12:55:00 SUPERVISOR MARBLE, Duration: 30 day, Stop date: 12/20/17 12:54:00 SUPERVISOR MARBLE Tylenol 650 mg, 2 No Longer 01/25[facility] tab, Route: Active 2018 Medical PO, Drug Center form: TAB, Q6H, Dosing Weight 69.909, kg, PRN Pain 1-3/Temp > 100.4 F, Start date: 11/20/17 12:54:00 SUPERVISOR MARBLE, Duration: 30 day, Stop date: 12/20/17 12:53:00 CSTNotes: Do not exceed 4 gm/day. (Same as: Tylenol) Saline Flush 10 ml, Route: No Longer [facility] 0.9% IVP, Drug Active 2018 Medical Form: INJ, Center Dosing Weight 69.716, kg, Q12H, Start date: 11/20/17 9:00:00 SUPERVISOR MARBLE, Duration: 30 day, Stop date: 12/19/17 21:00:00 CSTNotes: Same as: BD Posiflush Sterile Lasix 20 mg, 2 mL, Inactive [facility] Route: IVP, 2018 Medical Drug form: Center INJ, Q8H, Dosing Weight 69.716, kg, Start date: 11/20/17 8:00:00 SUPERVISOR MARBLE, Duration: 30 day, Stop date: 12/20/17 0:00:00 CSTNotes: (Same as: Lasix) Tylenol 650 mg, 20.3 Inactive 11/20[facility] [place] mL, Route: 2018 Medical PO, Drug Center form: LIQ, ONCE, Dosing Weight 69.909, kg, Start date: 11/20/17 5:20:00 SUPERVISOR MARBLE, Stop date: 11/20/17 5:20:00 CSTNotes: Max acetaminophen =4000mg/day (4 gm/day). (Same as: Tylenol) Sodium Chloride 250 mL, 250 Inactive 11/20[facility] [place] 0.9% (Bolus) IV ml/hr, Infuse 2018 Medical Over: 1 hr, Center Route: IV, 250, Drug form: INJ, ONCE, Priority: STAT, Dosing Weight 69.909 kg, Start date: 11/20/17 1:33:00 SUPERVISOR MARBLE, Stop date: 11/20/17 1:33:00 SUPERVISOR MARBLE Rasburicase 6 mg, Route: Inactive 11/20[facility] [place] IV, ONCE, 2018 Medical Dosing Weight Center 69.909, kg, Start date: 11/20/17 1:31:00 SUPERVISOR MARBLE, Stop date: 11/20/17 1:31:00 CSTNotes: Restricted Medication: All Doses of Rasburicase should be interchanged to Rasburicase 6 mg x1 dose. A second dose may be given for patients unresponsive to 1 dose. (Same as:Elitek) MEDICATION WASTE Product Size: 1.5 mg Product Wasted: ___ mg Lasix 20 mg, 2 mL, Inactive 11/20[facility] Route: IVP, 2018 Medical Drug form: Center INJ, Q8H, Dosing Weight 69.716, kg, Start date: 11/20/17 0:00:00 SUPERVISOR MARBLE, Duration: 30 day, Stop date: 12/19/17 16:00:00 CSTNotes: (Same as: Lasix) Saline Flush 10 ml, Route: No Longer [facility] 0.9% IVP, Drug Active 2017 Medical Form: INJ, Center Dosing Weight 69.716, kg, PRN, PRN Line Flush, Start date: 11/19/17 22:17:00 SUPERVISOR MARBLE, Duration: 30 day, Stop date: 12/19/17 22:16:00 CSTNotes: Same as: BD Posiflush Sterile cefepime 1 gm, Route: Inactive 11/20[facility] IVP, ONCE, 2018 Medical Dosing Weight Center 69.716, kg, Priority: STAT, Start date: 11/19/17 19:46:00 SUPERVISOR MARBLE, Stop date: 11/19/17 19:46:00 SUPERVISOR MARBLE, ABX Indication: PneumoniaNote s: (Same As: Maxipime) MEDICATION WASTE Product Size: 1000 mg Product Wasted: ___ mg Vancomycin 1,500 mg, Inactive 11/20[facility] Route: IVPB, 2018 Medical ONCE, Dosing Center Weight 69.716, kg, Priority: STAT, Start date: 11/19/17 19:45:00 SUPERVISOR MARBLE, Stop date: 11/19/17 19:45:00 SUPERVISOR MARBLE, ABX Indication: PneumoniaNote s: TIME CRITICAL MEDICATION (Same As: Vancocin) Infusion rate 2001 mg: infuse over 2.5 hours For adult patients only: Round to nearest 250 mg per Medical Staff approval MEDICATION WASTE Product Size: 1000 mg Product Wasted: ___ mg Sodium Chloride 250 mL, Rate: No Longer [place] 0.9% (titrate) To prime line Active 2018 Medical 250 mL and flush Center remaining blood products., Dosing Weight 69.716, kg, Route: IV, Total Volume: 250, Priority: Routine, Start Date: 11/19/17 18:49:00 SUPERVISOR MARBLE, Duration: 30 day, Stop date: 12/19/17 18:48:00 SUPERVISOR MARBLE, Replace Every: 24 hrNotes: do not load in pyxis pantoprazole 40 40 mg=1 tab, Active [facility] mg oral enteric PO, Before 2018 Medical coated tablet Breakfast, # Center 30 tab, 3 Refill(s) NIFEdipine 30 mg 30 mg=1 tab, Active [facility] oral tablet, PO, Daily, # 2018 Medical extended release 60 tab, 3 Center Refill(s) lisinopril 20 mg 40 mg=2 tab, Active [facility] oral tablet PO, Daily, # 2018 Medical 60 tab, 3 Center Refill(s) DULoxetine 30 mg 30 mg=1 cap, Active [facility] oral delayed PO, Daily, # 2018 Medical release capsule 30 cap, 3 Center Refill(s) clopidogrel 75 75 mg=1 tab, Active [facility] mg oral tablet PO, Daily, # 2018 Medical 30 tab, 3 Center Refill(s) Clonidine 0.1 mg, PO, Active [facility] Hydrochloride BID, # 60 2018 Medical 0.1 MG Oral tab, 3 Center Tablet Refill(s) carvedilol 12.5 12.5 mg=1 Active [facility] mg oral tablet tab, PO, BID, 2018 Medical # 60 tab, 3 Center Refill(s) aspirin 81 mg 81 mg=1 tab, Active [facility] tablet, enteric PO, Daily, # 2018 Medical coated 30 tab, 3 Center Refill(s) Lasix 40 mg, 4 mL, Inactive [facility] Route: IVP, 2018 Medical Drug form: Center INJ, ONCE, Dosing Weight 72.455, kg, Start date: 11/01/17 7:11:00 SUPERVISOR MARBLE, Stop date: 11/01/17 7:11:00 CSTNotes: (Same as: Lasix) MEDICATION WASTE Product Size: 40 mg Product Wasted: ___ mg Sodium Chloride 250 mL, Rate: No Longer [place] 0.9% (titrate) 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 (Same As: Coreg) Clonidine 0.1 mg, 1 No Longer [place] Hydrochloride tab, Route: Active 2018 Medical 0.1 MG Oral PO, Drug Center Tablet form: TAB, ONCE, Dosing Weight 72.455, kg, Priority: NOW, Start date: 10/31/17 23:42:00 SUPERVISOR MARBLE, Stop date: 10/31/17 23:42:00 CSTNotes: (Same As: Catapres) tramadol 50 mg, 1 tab, No Longer [place] hydrochloride 50 Route: PO, Active 2018 Medical MG Oral Tablet Drug form: Center TAB, Q4H, Dosing Weight 72.455, kg, PRN Pain Score 1-3, Start date: 10/31/17 22:00:00 SUPERVISOR MARBLE, Duration: 30 day, Stop date: 11/30/17 21:59:00 CSTNotes: Not to exceed 400mg/day. (Same As: Ultram) chlorhexidine 15 mL, Route: No Longer [place] gluconate 1.2 Swab Mouth, Active 2018 Medical MG/ML Mouthwash Q12H, Drug Center form: LIQ, Start date: 10/31/17 21:00:00 SUPERVISOR MARBLE, Duration: 30 day, Stop date: 11/30/17 9:00:00 CSTNotes: (Same As: Peridex) Dextrose 50% 12.5 gm, 25 No Longer [place] Syringe mL, Route: Active 2017 Medical IVP, Drug Center Form: INJ, Dosing Weight 72.455, kg, PRN, PRN Blood Glucose Results, Start date: 10/31/17 19:34:00 SUPERVISOR MARBLE, Duration: 30 day, Stop date: 11/30/17 19:33:00 SUPERVISOR MARBLE Insulin regular 99 mL, Rate: No Longer [place] 100 unit + Start Insulin Active 2017 Medical Drip Per ICU Center Protocol, Dosing Weight 72.455, kg, Route: IVPB, Total Volume: 100, Start Date: 10/31/17 19:34:00 SUPERVISOR MARBLE, Duration: 30 day, Stop date: 11/30/17 19:33:00 SUPERVISOR MARBLE, Replace Every: 24 hrNotes: Final Concentration 1unit/1ml WASTE: F/P - Black; E - Municipal Trash Bin Fentanyl 25 microgram, Inactive [place] 0.5 mL, 2017 Medical Route: IVP, Center Drug form: INJ, ONCE, Dosing Weight 72.455, kg, Start date: 10/31/17 18:55:00 SUPERVISOR MARBLE, Stop date: 10/31/17 18:55:00 CSTNotes: (Same as: Sublimaze) Preservative free. ocular lubricant 1 appl, No Longer [place] Route: BOTH Active 2017 Medical EYES, Q6H, [place] Drug form: OINT, Start date: 10/31/17 18:00:00 SUPERVISOR MARBLE, Duration: 30 day, Stop date: 11/30/17 12:00:00 CSTNotes: (Same as: Lacri-Lube, Duratears Naturale, Artificial Tears, and Tears Again ) chlorhexidine 15 mL, Route: No Longer [place] gluconate 1.2 Swab Mouth, Active 2017 Medical MG/ML Mouthwash PRN, Drug Center form: LIQ, PRN Other -See Comment, Start date: 10/31/17 17:28:00 SUPERVISOR MARBLE, Duration: 30 day, Stop date: 11/30/17 17:27:00 CSTNotes: (Same As: Peridex) rocuronium Route: IV, Inactive [place] (ANES) Drug form: 2018 Medical INJ, ONCE, Center Stop date: 10/31/17 16:57:00 SUPERVISOR MARBLE Sodium Chloride 750 mL, Rate: No Longer [place] 0.9% IV 750 mL 75 ml/hr, Active 2017 Medical Infuse over: Center 10 hr, Route: IV, Dosing Weight 72.455 kg, Total Volume: 750, Start date: 10/31/17 16:56:00 SUPERVISOR MARBLE, Duration: 10 hr, Stop date: 11/01/17 2:55:00 SUPERVISOR MARBLE, 1.81, m2 protamine (ANES) Route: IV, Inactive [place] Drug form: 2018 Medical INJ, ONCE, Center Stop date: 10/31/17 16:42:00 SUPERVISOR MARBLE propofol (ANES) Route: IV, Inactive [place] Drug form: 2018 Medical INJ, ONCE, Center Stop date: 10/31/17 16:22:00 SUPERVISOR MARBLE norepinephrine Route: IV, Inactive [place] (ANES) Drug form: 2018 Medical INJ, ONCE, Center Stop date: 10/31/17 16:22:00 SUPERVISOR MARBLE ondansetron Route: IV, Inactive [place] (ANES) Drug form: 2018 Medical INJ, ONCE, Center Stop date: 10/31/17 16:08:00 SUPERVISOR MARBLE fentaNYL (ANES) Route: IV, Inactive [place] Drug form: 2018 Medical INJ, ONCE, Center Stop date: 10/31/17 15:37:00 SUPERVISOR MARBLE heparin (ANES) Route: IV, Inactive [place] Drug form: 2018 Medical INJ, ONCE, Center Stop date: 10/31/17 15:37:00 SUPERVISOR MARBLE Ondansetron 4 mg, 2 mL, No Longer [place] Route: IVP, Active 2017 Medical Drug form: Center INJ, ONCE, Dosing Weight 72.455, kg, PRN Nausea & Vomiting, Start date: 10/31/17 15:27:00 CSTNotes: (Same as: Zofran) MEDICATION WASTE Product Size: 4 mg Product Wasted: ___ mg Fentanyl 25 microgram, No Longer [place] 0.5 mL, Active 2017 Medical Route: IVP, [place] Drug form: INJ, Q5Min, Dosing Weight 72.455, kg, PRN Pain Score 4-6, Priority: Routine, Start date: 10/31/17 15:27:00 SUPERVISOR MARBLE, Duration: 4 doses or times, Stop date: 11/01/17 0:00:00 CSTNotes: (Same as: Sublimaze) Preservative free. Naloxone 0.4 mg, 1 mL, No Longer [facility] Route: IVP, Active 2017 Medical Drug form: Center INJ, Q2MIN, Dosing Weight 72.455, kg, PRN Narcotic Reversal, Start date: 10/31/17 15:27:00 SUPERVISOR MARBLE, Duration: 8 doses or times, Stop date: 11/01/17 0:00:00 CSTNotes: Same as Narcan Flumazenil 0.2 mg, 2 mL, No Longer [facility] Route: IVP, Active 2017 Medical Drug form: [place] INJ, PRN, Dosing Weight 72.455, kg, PRN Benzodiazepin e Reversal, Initial dose, Start date: 10/31/17 15:27:00 SUPERVISOR MARBLE, Stop date: 11/01/17 0:00:00 CSTNotes: (Same as: Romazicon) midazolam (ANES) Route: IV, Inactive [facility] Drug form: 2017 Medical SOLN, ONCE, Center Stop date: 10/31/17 15:02:00 SUPERVISOR MARBLE ceFAZolin (ANES) Route: IV, Inactive [facility] Drug form: 2018 Medical INJ, ONCE, Center Stop date: 10/31/17 14:37:00 SUPERVISOR MARBLE Sodium Chloride Route: IV, Inactive [facility] 0.9% IV (ANES) Total Volume: 2017 Medical 500 mL 500, Start Center date: 10/31/17 13:50:00 SUPERVISOR MARBLE, Stop date: 10/31/17 14:50:00 SUPERVISOR MARBLE dexmedetomidine Route: IV, Inactive [place] (ANES) 400 Drug form: 2018 Medical microgram INJ, Start Center date: 10/31/17 13:50:00 SUPERVISOR MARBLE, Stop date: 10/31/17 14:50:00 SUPERVISOR MARBLE Pravastatin 20 mg, 1 tab, No Longer [facility] Route: PO, Active 2017 Medical Drug form: Center TAB, Bedtime, Dosing Weight 72.455, kg, Start date: 10/30/17 21:00:00 SUPERVISOR MARBLE, Duration: 30 day, Stop date: 11/28/17 21:00:00 CSTNotes: (Same as: Pravachol) Pneumovax 23 0.5 mL, Inactive [facility] Route: IM2017 Medical Drug Form: [place] INJ, Daily, Start date: 10/30/17 12:00:00 SUPERVISOR MARBLE, Duration: 1 doses or times, Stop date: 10/30/17 12:00:00 CSTNotes: (Same as: Pneumovax 23) Refrigerate Hydralazine 10 mg, 0.5 No Longer [place] mL, Route: Active 2018 [facility] IV, Drug Center form: INJ, Q6H, Dosing Weight 72.455, kg, PRN Other -See Comment, Start date: 10/30/17 10:28:00 SUPERVISOR MARBLE, Duration: 30 day, Stop date: 11/29/17 10:27:00 SUPERVISOR MARBLE, SBP>160Notes: (Same as: Apresoline) Push over 5 minutes pneumococcal 0.5 mL, Inactive [facility] capsular Route: IM, 2017 Medical polysaccharide Drug Form: [place] type 1 vaccine / INJ, Daily, pneumococcal Start date: capsular 10/30/17 polysaccharide 9:00:00 SUPERVISOR MARBLE, type 10A vaccine Duration: 1 / pneumococcal doses or capsular times, Stop polysaccharide date: type 11A vaccine 10/30/17 / pneumococcal 9:00:00 capsular CSTNotes: polysaccharide (Same as: type 12F vaccine Pneumovax 23) / pneumococcal Refrigerate capsular polysacchar influenza virus 0.5 mL, Inactive [place] vaccine, Route: IM, 2017 Medical inactivated Drug Form: [place] SUSP, Daily, Start date: 10/30/17 9:00:00 SUPERVISOR MARBLE, Duration: 1 doses or times, Stop date: 10/30/17 9:00:00 CSTNotes: (Same as: Fluzone Quadrivalent, Fluarix Quadrivalent) For 3 years of age and older (0.5 mL IM) Shake well before use Coreg 12.5 mg, 1 No Longer [place] tab, Route: Active 2018 Medical PO, Drug Center form: TAB, BID, Dosing Weight 72.455, kg, Start date: 10/30/17 9:00:00 SUPERVISOR MARBLE, Duration: 30 day, Stop date: 11/28/17 17:00:00 CSTNotes: Give with food. (Same As: Coreg) aspirin 81 mg 81 mg, 1 tab, No Longer [place] tablet, enteric Route: PO, Active 2018 Medical coated Drug form: [place] ECTAB, Daily, Dosing Weight 72.455, kg, Start date: 10/30/17 9:00:00 SUPERVISOR MARBLE, Duration: 30 day, Stop date: 11/28/17 9:00:00 CSTNotes: Do not crush or chew. (Same As: Ecotrin) Amlodipine 10 mg, 1 tab, Inactive [place] Route: PO, 2018 Medical Drug form: [place] TAB, Daily, Dosing Weight 72.455, kg, Start date: 10/30/17 9:00:00 SUPERVISOR MARBLE, Duration: 30 day, Stop date: 11/28/17 9:00:00 CSTNotes: (Same as: Norvasc) NIFEdipine 30 mg 30 mg, 1 tab, No Longer [place] oral tablet, Route: PO, Active 2018 Medical extended release Drug form: [place] ERTAB, Daily, Dosing Weight 72.455, kg, Start date: 10/30/17 9:00:00 SUPERVISOR MARBLE, Duration: 30 day, Stop date: 11/28/17 9:00:00 CSTNotes: (Same as: Adalat CC, Procardia XL) Give on empty stomach. Take 1 hour before or 2 hours after meal; "Avoid grapefruit and grapefruit juice". Do not crush Lisinopril 40 mg, 2 tab, No Longer [place] Route: PO, Active 2017 Medical Drug form: [place] TAB, Daily, Dosing Weight 72.455, kg, Start date: 10/30/17 9:00:00 SUPERVISOR MARBLE, Duration: 30 day, Stop date: 11/28/17 9:00:00 CSTNotes: (Same as: Prinivil, Zestril) duloxetine 30 mg, 1 cap, No Longer [facility] Route: PO, Active 2017 Medical Drug form: [place] DRC, Daily, Dosing Weight 72.455, kg, Start date: 10/30/17 9:00:00 SUPERVISOR MARBLE, Duration: 30 day, Stop date: 11/28/17 9:00:00 CSTNotes: (Same as: Cymbalta) (Do Not Crush) clopidogrel 75 mg, 1 tab, No Longer [place] Route: PO, Active 2018 Medical Drug form: Center TAB, Daily, Dosing Weight 72.455, kg, Start date: 10/30/17 9:00:00 SUPERVISOR MARBLE, Duration: 30 day, Stop date: 11/28/17 9:00:00 CSTNotes: (Same As: Plavix) 12 HR Clonidine 0.1 mg, 1 No Longer [place] Hydrochloride tab, Route: Active 2018 Medical 0.1 MG Extended PO, Drug [place] Release Tablet form: TAB, BID, Dosing Weight 72.455, kg, Start date: 10/30/17 9:00:00 SUPERVISOR MARBLE, Duration: 30 day, Stop date: 11/28/17 17:00:00 CSTNotes: (Same As: Catapres) heparin 5,000 unit, 1 No Longer [place] mL, Route: Active 2018 Medical SUB-Q, [facility] form: INJ, Q8H, Dosing Weight 72.455, kg, Start date: 10/30/17 8:00:00 SUPERVISOR MARBLE, Duration: 30 day, Stop date: 11/29/17 0:00:00 CSTNotes: porcine heparin Protonix 40 mg, 1 tab, No Longer [place] Route: PO, Active 2017 Medical Drug form: [place] ECTAB, Before Breakfast, Dosing Weight 72.455, kg, Start date: 10/30/17 7:30:00 SUPERVISOR MARBLE, Duration: 30 day, Stop date: 11/28/17 7:30:00 CSTNotes: Tablet should not be chewed or crushed. (Same as: Protonix) Benzocaine 15 MG 1 lozenge, No Longer [place] / Menthol 3.6 MG Route: MUCOUS Active 2018 Medical Lozenge [Cepacol MEM, Drug [place] Sore Throat Pain Form: SHWETA, Relief 15/3.6] Dosing Weight 72.455, kg, Q2H, PRN Sore Throat, Start date: 10/30/17 1:15:00 SUPERVISOR MARBLE, Duration: 30 day, Stop date: 11/29/17 1:14:00 CSTNotes: Cepacol lozenges Dispense 1 box=16 lozenges (Same As: Cepacol Lozenges) Lasix 20 mg, 2 mL, No Longer [place] Route: IV, Active 2017 Medical Drug form: [place] INJ, Q12H, Dosing Weight 72.455, kg, Start date: 10/29/17 21:00:00 SUPERVISOR MARBLE, Duration: 30 day, Stop date: 11/28/17 9:00:00 CSTNotes: (Same as: Lasix) Melatonin 3 MG 3 mg, 1 tab, No Longer [facility] Extended Release Route: PO, Active 2018 Medical Tablet Drug Form: [place] TAB, Dosing Weight 72.455, kg, Bedtime, Start date: 10/29/17 21:00:00 SUPERVISOR MARBLE, Duration: 30 day, Stop date: 11/27/17 21:00:00 CSTNotes: (Same as: Melatonin) Glucagon 1 mg, Route: No Longer [facility] IM, Drug Active 2017 Medical form: [place] PDR/INJ, PRN, Dosing Weight 72.455, kg, PRN Blood Glucose Results, Start date: 10/29/17 20:50:00 SUPERVISOR MARBLE, Duration: 30 day, Stop date: 11/28/17 20:49:00 SUPERVISOR MARBLE Dextrose 50% 25 gm, 50 mL, No Longer [facility] Syringe Route: IVP, Active 2018 Medical Drug Form: [place] INJ, Dosing Weight 72.455, kg, PRN, PRN Blood Glucose Results, Start date: 10/29/17 20:50:00 SUPERVISOR MARBLE, Duration: 30 day, Stop date: 11/28/17 20:49:00 SUPERVISOR MARBLE Insulin Lispro 8 unit, 0.08 No Longer [facility] mL, Route: Active 2018 [facility] SUB-Q, Drug Center form: SOLN, TID-Before Meals, Dosing Weight 72.455, kg, PRN Blood Glucose Results, Start date: 10/29/17 20:50:00 SUPERVISOR MARBLE, Duration: 30 day, Stop date: 11/28/17 20:49:00 [...] Patients Only., Start date: 10/29/17 20:50:00 SUPERVISOR MARBLE, Duration: 30 day, Stop date: 11/28/17 20:49:00 CSTNotes: (Same as: Mag-Ox 400) Magnesium oxide [id number] elemental magnesium Dose=____mg magnesium oxide (___mg elemental magnesium) Calcium 2 gm, 20 mL, No Longer [place] Gluconate Route: IVPB, Active 2018 Medical PRN, Dosing Center Weight 72.455, kg, PRN Abnormal Lab Result, For NON-ICU Patients Only., Start date: 10/29/17 20:50:00 SUPERVISOR MARBLE, Duration: 30 day, Stop date: 11/28/17 20:49:00 CSTNotes: WASTE: F/P - Sink; E - [employer] Trash [employer] sodium phosphate 15 mmol, 5 No Longer [place] mL, Route: Active 2018 Medical IVPB, PRN, Center Dosing Weight 72.455, kg, PRN Abnormal Lab Result, For NON-ICU Patients Only., Start date: 10/29/17 20:50:00 SUPERVISOR MARBLE, Duration: 30 day, Stop date: 11/28/17 20:49:00 SUPERVISOR MARBLE potassium 30 mmol, 10 No Longer [place] phosphate mL, Route: Active 2018 Medical IVPB, PRN, Center Dosing Weight 72.455, kg, PRN Abnormal Lab Result, For NON-ICU Patients Only., Start date: 10/29/17 20:50:00 SUPERVISOR MARBLE, Duration: 30 day, Stop date: 11/28/17 20:49:00 CSTNotes: (Same as: K Phosphate.) 1 mMol phoshate has 1.47 mEq potassium Infuse over 4 hours Magnesium 2 gm, 50 mL, No Longer [place] Sulfate Route: IVPB, Active 2018 Medical Drug form: Center INJ, PRN, Dosing Weight 72.455, kg, PRN Abnormal Lab Result, For NON-ICU Patients Only., Start date: 10/29/17 20:50:00 SUPERVISOR MARBLE, Duration: 30 day, Stop date: 11/28/17 20:49:00 CSTNotes: WASTE: F/P - Sink; E - [employer] Potassium 20 mEq, 1 No Longer [place] Chloride tab, Route: Active 2018 Medical PO, Drug Center form: ERTAB, PRN, Dosing Weight 72.455, kg, PRN Abnormal Lab Result, For NON-ICU Patients Only, Start date: 10/29/17 20:50:00 SUPERVISOR MARBLE, Duration: 30 day, Stop date: 11/28/17 20:49:00 CSTNotes: (Same as: K-Dur 20) "Do Not Crush" With food and full glass of water potassium 2 pkt, Route: No Longer [place] phosphate-sodium PO, Drug Active 2017 Medical phosphate 250 Form: [place] mg-280 mg-160 mg PDR/REC, oral powder for Dosing Weight reconstitution 72.455, kg, PRN, PRN Abnormal Lab Result, For NON-ICU Patients Only, Start date: 10/29/17 20:50:00 SUPERVISOR MARBLE, Duration: 30 day, Stop date: 11/28/17 20:49:00 CSTNotes: (Same as: Phos-NaK) Each 1.5 gm pkt has 250mg phosphorous. Mix w/2.5oz water and stir. Magnesium 2 gm, 50 mL, Inactive [facility] Sulfate Route: IVPB, 2017 Medical Drug form: [place] INJ, ONCE, Dosing Weight 72.455, kg, Start date: 10/29/17 19:55:00 SUPERVISOR MARBLE, Stop date: 10/29/17 19:55:00 CSTNotes: WASTE: F/P - Sink; E - [employer] Trash [employer] insulin glargine SUB-Q, Daily, No Longer [facility] (concentrated) 0 Refill(s) Active 2018 Medical 300 units/mL [place] subcutaneous solution DULoxetine 30 mg 30 mg=1 cap, No Longer [place] oral delayed PO, Daily, # Active 2018 Medical release capsule 90 cap, 0 [place] Refill(s) NIFEdipine 30 mg 30 mg=1 tab, No Longer [place] oral tablet, PO, Daily, # Active 2018 Medical extended release 90 tab, 1 Center Refill(s) Amlodipine 10 mg, 1 tab, No Longer [facility] Route: PO, Active 2015 Medical Drug form: [place] TAB, Daily, Dosing Weight 78.636, kg, Start date: 05/30/16 9:00:00 CDT, Duration: 30 day, Stop date: 06/28/16 9:00:00 CDTNotes: (Same as: Norvasc) Protonix 40 mg, 1 tab, No Longer [facility] Route: PO, Active 2015 Medical Drug form: [place] ECTAB, Daily, Dosing Weight 78.636, kg, Start date: 05/30/16 9:00:00 CDT, Duration: 30 day, Stop date: 06/28/16 9:00:00 CDTNotes: Tablet should not be chewed or crushed. (Same as: Protonix) Lisinopril 40 mg, 2 tab, No Longer [facility] Route: PO, Active 2015 Medical Drug form: [place] TAB, Daily, Dosing Weight 78.636, kg, Start date: 05/30/16 9:00:00 CDT, Duration: 30 day, Stop date: 06/28/16 9:00:00 CDTNotes: (Same as: Prinivil, Zestril) clopidogrel 75 mg, 1 tab, No Longer [facility] Route: PO, Active 2015 Medical Drug form: [place] TAB, Daily, Dosing Weight 78.636, kg, Start date: 05/30/16 9:00:00 CDT, Duration: 30 day, Stop date: 06/28/16 9:00:00 CDTNotes: (Same As: Plavix) Aspirin 81 MG 81 mg, 1 tab, No Longer [facility] Enteric Coated Route: PO, Active 2015 Medical Tablet Drug form: [place] ECTAB, Daily, Dosing Weight 78.636, kg, Start date: 05/30/16 9:00:00 CDT, Duration: 30 day, Stop date: 06/28/16 9:00:00 CDTNotes: Do not crush or chew. (Same As: Ecotrin) NovoLOG FlexPen Route: SUB-Q, No Longer [facility] Drug form: Active 2016 Medical INJ, Before Center Breakfast, Dosing Weight 78.636, kg, Start date: 05/30/16 7:30:00 CDT, Duration: 30 day, Stop date: 06/28/16 7:30:00 CDT Pravastatin 20 mg, 1 tab, Inactive [place] Route: PO, 2015 Medical Drug form: Center TAB, Bedtime, Dosing Weight 78.636, kg, Start date: 05/29/16 21:00:00 CDT, Duration: 30 day, Stop date: 06/27/16 21:00:00 CDTNotes: (Same as: Pravachol) glimepiride 4 mg, 1 tab, Inactive [facility] Route: PO, 2015 Medical Drug form: Center TAB, BID, Dosing Weight 78.636, kg, Start date: 05/29/16 17:00:00 CDT, Duration: 30 day, Stop date: 06/28/16 9:00:00 CDTNotes: (Same as: Amaryl) cyclobenzaprine 10 mg, 1 tab, Inactive [facility] Route: PO, 2015 Medical Drug form: [place] TAB, QPM, Dosing Weight 78.636, kg, Start date: 05/29/16 17:00:00 CDT, Duration: 30 day, Stop date: 06/27/16 17:00:00 CDTNotes: (Same As: Flexeril) 12 HR Clonidine 0.1 mg, 1 Inactive [facility] Hydrochloride tab, Route: 2015 Medical 0.1 MG Extended PO, Drug Center Release Tablet form: TAB, BID, Dosing Weight 78.636, kg, Start date: 05/29/16 17:00:00 CDT, Duration: 30 day, Stop date: 06/28/16 9:00:00 CDTNotes: (Same As: Catapres) Coreg 12.5 mg, 1 Inactive [facility] tab, Route: 2015 Medical PO, Drug Center form: TAB, BID, Dosing Weight 78.636, kg, Start date: 05/29/16 17:00:00 CDT, Duration: 30 day, Stop date: 06/28/16 9:00:00 CDTNotes: Give with food. (Same As: Coreg) amLODIPine 10 mg 10 mg=1 tab, Active [facility] oral tablet PO, Daily, # 2016 Medical 90 tab, 3 Center Refill(s) amLODIPine 10 mg 10 mg=1 tab, Inactive [facility] oral tablet PO, Daily, # 2016 Medical 90 tab, 3 Center Refill(s) amLODIPine 10 mg 5 mg, PO, Inactive [facility] oral tablet Daily, # 90 2016 Medical tab, 0 Center Refill(s) Nitroglycerin 0.4 mg, 1 Inactive [facility] tab, Route: 2016 Medical SL, Drug Center form: TAB, Q5Min, Dosing Weight 78.636, kg, PRN Chest Pain, Start date: 05/29/16 9:02:00 CDT, Duration: 3 doses or times, Stop date: 05/29/16 17:00:00 CDTNotes: (Same as:Nitroquick , Nitrostat) "Do Not Crush" Sublingual tablet Sodium Chloride 750 mL, Rate: Inactive [facility] 0.154 MEQ/ML 75 ml/hr, 2016 Medical Injectable Infuse over: Center Solution 10 hr, Route: IV, Dosing Weight 78.636 kg, Total Volume: 750, Start date: 05/29/16 9:02:00 CDT, Duration: 10 hr, Stop date: 05/29/16 19:01:00 CDT 24 HR Metformin 500 mg=1 tab, Active [facility] hydrochloride PO, 2016 Medical 500 MG Extended BID-Meals, # Center Release Tablet 60 tab, 1 Refill(s) 12 HR Clonidine 0.1 mg=1 tab, Active [facility] Hydrochloride PO, BID, # 60 2016 Medical 0.1 MG Extended tab, 0 Center Release Tablet Refill(s) Amlodipine 5 mg, PO, Inactive [facility] Daily, 0 2016 Medical Refill(s) Center meloxicam 15 mg 15 mg=1 tab, Active [facility] oral tablet PO, Daily, # 2016 Medical 30 tab, 0 Center Refill(s) sodium chloride 1,000 mL, Inactive [facility] 0.9% 1000 ml INJ Rate: 100 2015 Medical 1,000 mL ml/hr, Infuse Center over: 10 hr, Route: IVPB, Dosing Weight 78.636 kg, Total Volume: 1,000, Start date: 05/29/16 5:54:00 CDT, Duration: 30 day, Stop date: 06/28/16 5:53:00 CDT Keflex 500 mg 500 mg, 1 PO Active [facility] oral capsule cap, PO, Q8H, 2012 Medical 9 cap, Center Substitution Allowed [place] 5/325 oral 1 tab, PO, PO Active [facility] tablet Q4H, PRN, 20 2012 Medical tab, Pain, Center Substitution Allowed, Maintenance, TAB magnesium 4 gm, 100 mL, IVPB Active [place] sulfate Route: IVPB2012 Medical Drug form: [place] INJ, ONCE, Dosing Weight 81.818, kg, Total dose=4 gm, Start date: 01/20/13 9:40:00, Stop date: 01/20/13 9:40:00 magnesium 2 gm, 50 mL, IVPB No Longer [facility] sulfate Route: IVPB, 2012 Medical Drug form: [place] INJ, ONCE, Dosing Weight 81.818, kg, Total dose=2 gm, Start date: 01/20/13 9:34:00, Duration: 1 doses or times, Stop date: 01/20/13 9:34:00 clopidogrel 75 mg, 1 tab, PO No Longer [facility] Route: PO, Active 2012 Medical Drug form: [place] TAB, Daily, Dosing Weight 81.818, kg, Start date: 01/20/13 9:00:00, Duration: 30 day, Stop date: 02/18/13 9:00:00 citalopram 10 mg, 1 tab, PO No Longer [facility] Route: PO, Active 2012 Medical Drug form: [place] TAB, Daily, Dosing Weight 81.818, kg, Start date: 01/20/13 9:00:00, Duration: 30 day, Stop date: 02/18/13 9:00:00 aspirin 81 mg 81 mg, 1 tab, PO No Longer [facility] tablet, enteric Route: PO, Active 2012 Medical coated Drug form: [place] ECTAB, Daily, Dosing Weight 81.818, kg, Start date: 01/20/13 9:00:00, Duration: 30 day, Stop date: 02/18/13 9:00:00 pravastatin 20 mg, 1 tab, PO No Longer [facility] Route: PO, Active 2012 Medical Drug form: [place] TAB, Daily, Dosing Weight 81.818, kg, Start date: 01/20/13 9:00:00, Duration: 30 day, Stop date: 02/18/13 9:00:00 Protonix 40 mg, 1 tab, PO No Longer [facility] Route: PO, Active 2012 Medical Drug form: [place] ECTAB, Daily, Dosing Weight 81.818, kg, Start date: 01/20/13 9:00:00, Duration: 30 day, Stop date: 02/18/13 9:00:00 lisinopril 40 mg, 2 tab, PO No Longer [facility] Route: PO, Active 2012 Medical Drug form: [place] TAB, Daily, Dosing Weight 81.818, kg, Start date: 01/20/13 9:00:00, Duration: 30 day, Stop date: 02/18/13 9:00:00 Saline Flush 5 ml, Route: IVP No Longer [facility] 0.9% IVP, Drug Active 2012 Medical Form: INJ, Center Dosing Weight 81.818, kg, Q12H, Start date: 01/19/13 21:00:00, Duration: 30 day, Stop date: 02/18/13 9:00:00 [place] 5/325 oral 1 tab, Route: PO No Longer [facility] tablet PO, Drug Active 2012 Medical Form: TAB, Center Dosing Weight 81.818, kg, Q4H, PRN Pain, Start date: 01/19/13 18:24:00, Duration: 30 day, Stop date: 02/18/13 18:23:00 Tylenol 650 mg, 2 PO No Longer [facility] tab, Route: Active 2012 Medical PO, Drug Center form: TAB, Q4H, Dosing Weight 81.818, kg, PRN Pain, Start date: 01/19/13 18:16:00, Duration: 30 day, Stop date: 02/18/13 18:15:00 cyclobenzaprine 5 mg, 0.5 PO No Longer [facility] tab, Route: Active 2012 Medical PO, Drug Center form: TAB, QPM, Dosing Weight 81.818, kg, Start date: 01/19/13 17:00:00, Duration: 30 day, Stop date: 02/17/13 17:00:00 Coreg 12.5 mg, 1 PO No Longer [facility] tab, Route: Active 2012 Medical PO, Drug Center form: TAB, BID, Dosing Weight 81.818, kg, Start date: 01/19/13 17:00:00, Duration: 30 day, Stop date: 02/18/13 9:00:00 cefazolin (SCIP) 1 gm, Route: IVPB No Longer [facility] IVPB, Drug Active 2012 Medical form: [place] PDR/INJ, Q8H, Dosing Weight 81.818, kg, Start date: 01/19/13 17:00:00, Duration: 3 doses or times, Stop date: 01/20/13 9:00:00 glimepiride 4 mg, 1 tab, PO No Longer [facility]am [facility] Route: PO, Active 2012 Medical Drug form: [place] TAB, BID, Dosing Weight 81.818, kg, Start date: 01/19/13 17:00:00, Duration: 30 day, Stop date: 02/18/13 9:00:00 gabapentin 100 100 mg, 1 PO No Longer [facility] mg oral capsule cap, Route: Active 2012 Medical PO, Drug Center form: CAP, Q8H, Dosing Weight 81.818, kg, Start date: 01/19/13 16:00:00, Duration: 30 day, Stop date: 02/18/13 8:00:00 magnesium 2 gm, 50 mL, IVPB No Longer G[facility]am [place] sulfate 2 gm in Route: IVPB, Active 2012 Medical Water 50 ml Drug form: [place] INJ, ONCE, Dosing Weight 81.818, kg, Priority: STAT, Start date: 01/19/13 11:26:00, Duration: 2 hr, Stop date: 01/19/13 11:26:00 Saline Flush 5 ml, Route: IVP No Longer Gautam [facility] 0.9% IVP, Drug Active 2012 Medical Form: INJ, [place] Dosing Weight 81.818, kg, PRN, PRN Line Flush, Start date: 01/19/13 11:05:00, Duration: 30 day, Stop date: 02/18/13 11:04:00 ondansetron 4 mg, 2 mL, IVP No Longer Gautam [facility] Route: IVP, Active 2012 Medical Drug form: Center INJ, Q8H, Dosing Weight 81.818, kg, PRN [...] 5 ml, Route: IVP No Longer Gautam eRddy 0.9% IVP, Drug Active 2012 Medical Form: [...] mg 40 mg, 1 tab, PO Active [facility] oral tablet PO, Daily, 2012 Medical tab, Center Substitution Allowed, TAB NovoLog FlexPen Per Sliding SUB-Q Active [place] Scale, SUB-Q, 2012 Medical Before Center Breakfast, Substitution Allowed, INJ cyclobenzaprine 5 mg, 1 tab, PO Active [facility] 5 mg oral tablet PO, QPM, 2012 Medical Substitution Center Allowed, TAB aspirin 81 mg 81 mg, 1 tab, PO Active [facility] [place] tablet, enteric PO, Daily, 0 2012 Medical coated tab, Center Substitution Allowed, ECTAB gabapentin 100 100 mg, 1 PO Active [facility] [place] mg oral capsule cap, PO, Q8H, 2012 Medical Substitution Center Allowed, CAP glimepiride 4 mg 4 mg, 1 tab, PO Active [facility] oral tablet PO, BID, 2012 Medical tab, Center Substitution Allowed, TAB warfarin 5 mg 5 mg, 1 tab, PO No Longer [facility] oral tablet PO, Daily, 30 Active 2012 Medical tab, Center Substitution Allowed, TAB pravastatin 20 20 mg, 1 tab, PO Active [facility] 01/19[facility] mg oral tablet PO, Daily, 2012 Medical tab, Center Substitution Allowed, TAB clopidogrel 75 75 mg, 1 tab, PO Active [facility] 01/19[facility] mg oral tablet PO, Daily, 2012 Medical tab, Center Substitution Allowed, TAB citalopram 10 mg 10 mg, 1 tab, PO Active [facility] 01/19[facility] oral tablet PO, Daily, 2012 Medical tab, [place] Substitution Allowed, TAB Protonix 40 mg 40 mg, 1 tab, PO Active [facility] 01/19[facility] oral enteric PO, Daily, 2012 Medical coated tablet tab, [place] Substitution Allowed, ECTAB Coreg 12.5 mg 12.5 mg, 1 PO Active [facility] oral tablet tab, PO, BID, 2012 Medical 180 tab, [place] Substitution Allowed, TAB Saline Flush 5 ml, Route: IVP No Longer [facility] 0.9% IVP, Drug Active 2012 Medical Form: INJ, Center Dosing Weight 81.818, kg, PRN, PRN Line Flush, Start date: 01/19/13 6:11:00, Duration: 30 day, Stop date: 02/18/13 6:10:00 warfarin 4 mg, 2 tab, [facility] Route: PO, Active 2011 Medical Drug form: Center TAB, Q5PM, Dosing Weight 86.364, kg, Start date: 07/31/12 17:00:00, Duration: 1 doses or times, Stop date: 07/31/12 17:00:00 warfarin 4 mg, 2 tab, PO No Longer [facility] Route: PO, Active 2011 Medical Drug form: Center TAB, Q5PM, Dosing Weight 86.364, kg, Start date: 07/30/12 17:00:00, Duration: 1 doses or times, Stop date: 07/30/12 17:00:00 pravastatin 20 40 mg, 2 tab, PO Active [facility] [place] mg oral tablet PO, QPM, 60 2011 Medical tab, Center Substitution Allowed, TAB Flexeril 10 mg 5 mg, 0.5 PO Active [facility] [place] oral tablet tab, PO, QPM, 2011 Medical 30 tab, Center Substitution Allowed, TAB [place] 10/325 1 tab, PO, PO Active [facility] [...] 40 mg, 1 tab, PO Active [facility] oral enteric PO, Before 2011 Medical [...] insulin glargine 20 unit, 0.2 SUB-Q Active [facility] 100 units/mL mL, SUB-Q, 2011 Medical subcutaneous Daily, 1 mL, [place] solution Substitution Allowed, SOLN gabapentin 100 100 mg, 1 PO Active [facility] [place] mg oral capsule cap, PO, Q8H, [...] 81 mg, 1 tab, PO Active [facility] tablet, enteric PO, Daily, 2011 Medical coated tab, Center Substitution Allowed, ECTAB aspirin 81 mg 81 mg, 1 tab, PO No Longer [facility] tablet, enteric Route: PO, Active [facility] Alberto 2011 Medical coated Drug form: Center ECTAB, Daily, Start date: 07/30/12 8:00:00, Duration: 30 day, Stop date: 08/28/12 8:00:00 aspirin 325 mg 325 mg, 1 PO No Longer [facility] tablet, enteric tab, Route: Active Mario Alberto 2011 Medical coated PO, Drug Center form: ECTAB, ONCE, Start date: 07/29/12 22:30:00, Stop date: 07/29/12 22:30:00 warfarin 5 mg, 1 tab, PO No Longer [facility] Route: PO, Active [facility] Alberto2011 Medical Drug form: Center TAB, ONCE, Dosing Weight 86.364, kg, Priority: NOW, Start date: 07/29/12 18:48:00, Stop date: 07/29/12 18:48:00 Flexeril 5 mg, 0.5 PO No Longer [facility] tab, Route: Active 2011 Medical PO, Drug Center form: TAB, QPM, Dosing Weight 86.364, kg, Start date: 07/29/12 17:00:00, Duration: 30 day, Stop date: 08/27/12 17:00:00 pravastatin 40 mg, 2 tab, PO No Longer [facility] Route: PO, Active 2011 Medical Drug form: Center TAB, QPM, Dosing Weight 86.364, kg, Start date: 07/27/12 17:00:00, Duration: 30 day, Stop date: 08/25/12 17:00:00 Coumadin 7.5 mg, 1 PO No Longer [facility] tab, Route: Active 2011 Medical PO, Drug Center form: TAB, Q5PM, Dosing Weight 86.364, kg, Start date: 07/26/12 17:00:00, Duration: 1 doses or times, Stop date: 07/26/12 17:00:00 Coumadin 7.5 mg, 1 PO No Longer [facility] tab, Route: Active 2011 Medical PO, Drug Center form: TAB, ONCE, Dosing Weight 86.364, kg, Start date: 07/25/12 17:45:00, Stop date: 07/25/12 17:45:00 acetaminophen 325 mg, 1 PO No Longer [facility] tab, Route: Active 2011 Medical PO, Drug Center form: TAB, BID, Dosing Weight 86.364, kg, Start date: 07/25/12 7:00:00, Duration: 30 day, Stop date: 08/23/12 12:00:00 warfarin 7.5 mg, 1 PO No Longer [facility] 07/24[facility] tab, Route: Active 2011 Medical PO, Drug Center form: TAB, Q5PM, Dosing Weight 86.364, kg, Start date: 07/24/12 17:00:00, Duration: 1 doses or times, Stop date: 07/24/12 17:00:00 warfarin 7.5 mg, 1 PO No Longer [facility] 07/23[facility] tab, Route: Active 2011 Medical PO, Drug Center form: TAB, Q5PM, Dosing Weight 86.364, kg, Start date: 07/23/12 17:00:00, Duration: 1 doses or times, Stop date: 07/23/12 17:00:00 warfarin 7.5 mg, 1 PO No Longer [facility] 07/22[facility] tab, Route: Active 2011 Medical PO, Drug Center form: TAB, ONCE, Dosing Weight 86.364, kg, Start date: 07/22/12 17:24:00, Stop date: 07/22/12 17:24:00 Dextrose 50% 25 gm, 50 mL, IVP No Longer [facility] 07/22[facility] Syringe Route: IVP, Active 2011 Medical Drug Form: Center INJ, Dosing Weight 86.364, kg, PRN, PRN Blood Glucose Results, Start date: 07/22/12 13:47:00, Duration: 30 day, Stop date: 08/21/12 13:46:00 glucagon 1 mg, Route: IM No Longer [facility] 07/22[facility] IM, Drug Active 2011 Medical form: Center PDR/INJ, PRN, Dosing Weight 86.364, kg, PRN Blood Glucose Results, Start date: 07/22/12 13:47:00, Duration: 30 day, Stop date: 08/21/12 13:46:00 Insulin regular 4 unit, 0.04 SUB-Q No Longer [facility] 07/22[facility] mL, Route: Active 2011 Medical SUB-Q, Drug Center form: SOLN, Bedtime, Dosing Weight 86.364, kg, PRN Blood Glucose Results, Start date: 07/22/12 13:47:00, Duration: 30 day, Stop date: 08/21/12 13:46:00 pneumococcal 0.5 ml, IM No Longer [facility] OPID 23-valent Route: IM, Active 2011 [place] vaccine Drug Form: [facility] INJ, Start Medical date: [place] 07/22/12 9:00:00, Stop date: 07/22/12 9:00:00 lisinopril 10 mg, 1 tab, PO No Longer [facility] 07/22[facility] Route: PO, Active 2011 Medical Drug form: Center TAB, Daily, Dosing Weight 67, kg, Start date: 07/22/12 9:00:00, Duration: 30 day, Stop date: 08/20/12 9:00:00 insulin glargine 20 unit, 0.2 SUB-Q No Longer [facility] 07/22[facility] mL, Route: Active 2011 Medical SUB-Q, Drug Center form: INJ, Daily, Dosing Weight 67, kg, Start date: 07/22/12 9:00:00, Duration: 30 day, Stop date: 08/20/12 9:00:00 clopidogrel 75 mg, 1 tab, PO No Longer [facility] 07/22[facility] Route: PO, Active 2011 Medical Drug form: Center TAB, Daily, Dosing Weight 67, kg, Start date: 07/22/12 9:00:00, Duration: 30 day, Stop date: 08/20/12 9:00:00 citalopram 10 mg, 1 tab, PO No Longer [facility] 07/22[facility] Route: PO, Active 2011 Medical Drug form: Center TAB, Daily, Dosing Weight 67, kg, Start date: 07/22/12 9:00:00, Duration: 30 day, Stop date: 08/20/12 9:00:00 aspirin 325 mg 325 mg, 1 PO No Longer [facility] tablet tab, Route: Active 2011 Medical PO, Drug Center form: TAB, Daily, Dosing Weight 67, kg, Start date: 07/22/12 9:00:00, Duration: 30 day, Stop date: 08/20/12 9:00:00 Coreg 12.5 mg, 1 PO No Longer [facility] tab, Route: Active 2011 Medical PO, Drug Center form: TAB, Q12H, Dosing Weight 67, kg, Start date: 07/21/12 21:00:00, Stop date: 08/20/12 9:00:00 magnesium oxide 400 mg, 1 PO No Longer [facility] tab, Route: Active 2011 Medical PO, Drug Center form: TAB, TID, Dosing Weight 67, kg, Start date: 07/21/12 17:00:00, Duration: 30 day, Stop date: 08/20/12 13:00:00 docusate 100 mg, 1 PO No Longer [facility] cap, Route: Active 2011 Medical PO, Drug Center form: CAP, BID, Dosing Weight 67, kg, Start date: 07/21/12 17:00:00, Duration: 30 day, Stop date: 08/20/12 9:00:00 Coumadin 7.5 mg, PO No Longer [facility] Route: PO, Active 2011 Medical Drug form: Center TAB, Q5PM, Dosing Weight 67, kg, Start date: 07/21/12 17:00:00, Duration: 30 day, Stop date: 08/19/12 17:00:00 atorvastatin 80 mg, 1 tab, PO No Longer [facility] Route: PO, Active 2011 Medical Drug form: Center TAB, Bedtime, Dosing Weight 67, kg, Start date: 07/21/12 17:00:00, Duration: 30 day, Stop date: 08/19/12 21:00:00 magnesium oxide 400 mg, 1 PO No Longer [facility] base 500 mg oral tab, Route: Active 2011 Medical tablet PO, Drug Center Form: TAB, Dosing Weight 67, kg, TID, Start date: 07/21/12 17:00:00, Duration: 30 day, Stop date: 08/20/12 13:00:00 Protonix 40 mg, 1 tab, PO No Longer [facility] Route: PO, Active 2011 Medical Drug form: Center ECTAB, Before Dinner, Dosing Weight 67, kg, Start date: 07/21/12 16:30:00, Duration: 30 day, Stop date: 08/19/12 16:30:00 Lantus 100 20 unit, 0.2 SUB-Q Active Mike-Amanda [place] units/mL mL, SUB-Q, 2011 Medical subcutaneous Daily, 1 [place] solution vial, Substitution Allowed, SOLN magnesium oxide 500 mg, PO, PO Active Mike-Amanda [place] 500 mg oral TID, 90 tab, 2011 Medical tablet Substitution Center Allowed, TAB Neurontin 100 mg 100 mg, 1 PO Active Mike-Amanda [facility] oral capsule cap, PO, Q8H, 2011 Medical 90 cap, [place] Substitution Allowed, CAP Coumadin 7.5 mg 7.5 mg, 1 PO Active Mike-Amanda [place] oral tablet tab, PO, 2011 Medical Q5PM, 31 tab, Center Substitution Allowed, TAB Protonix 40 mg 40 mg, 1 tab, PO Active Mike-Amanda [place] oral enteric PO, Before 2011 Medical coated tablet Dinner, 30 [place] tab, Substitution Allowed, ECTAB lisinopril 10 mg 10 mg, 1 tab, PO Active Mike-Amanda 07/21/ [place] oral tablet PO, Daily, 30 2011 Medical tab, Center Substitution Allowed, TAB clopidogrel 75 75 mg, 1 tab, PO Active Mike-Amanda 07/21/ MH [place] mg oral tablet PO, Daily, 30 2011 Medical tab, Center Substitution Allowed, TAB citalopram 10 mg 10 mg, 1 tab, PO Active Mike-Amanda 07/21/ [place] oral tablet PO, Daily, 30 2011 Medical tab, Center Substitution Allowed, TAB Coreg 3.125 mg 3.125 mg, 1 PO Active Mike-Amanda [place] oral tablet tab, PO, 2011 Medical Q12H, 60 tab, Center Substitution Allowed, TAB atorvastatin 80 80 mg, 1 tab, PO Active Mike-Amanda [place] mg oral tablet PO, QPM, 30 2011 Medical tab, Center Substitution Allowed, TAB aspirin 325 mg 325 mg, 1 PO Active Mike-Amanda [facility] tablet tab, PO, 2011 Medical Daily, 30 Center tab, Substitution Allowed, TAB gabapentin 100 mg, 1 PO No Longer [facility]ifred [place] cap, Route: Active 2011 Medical PO, Drug Center form: CAP, Q8H, Dosing Weight 67, kg, Start date: 07/21/12 16:00:00, Duration: 30 day, Stop date: 08/20/12 8:00:00 Neurontin 100 mg 100 mg, 1 PO No Longer Allam [place] oral capsule cap, Route: Active 2011 Medical PO, Drug Center form: CAP, Q8H, Dosing Weight 67, kg, Start date: 07/21/12 16:00:00, Duration: 30 day, Stop date: 08/20/12 8:00:00 nitroglycerin 0.4 mg, 1 SL No Longer [facility] 0.4 mg tab, Route: Active 2011 Medical sublingual SL, Drug Center tablet form: TAB, Q5Min, Dosing Weight 67, kg, PRN Chest Pain, Start date: 07/21/12 14:58:00, Duration: 30 day, Stop date: 08/20/12 14:57:00 acetaminophen 650 mg, 2 PO No Longer [facility] tab, Route: Active 2011 Medical PO, Drug Center form: TAB, Q6H, Dosing Weight 67, kg, PRN Pain, Start date: 07/21/12 14:57:00, Duration: 30 day, Stop date: 08/20/12 14:56:00 [place] 10/325 1 tab, Route: PO No Longer [facility] oral tablet PO, Drug Active 2011 Medical Form: TAB, Center Dosing Weight 67, kg, Q4H, PRN Pain, Start date: 07/21/12 14:56:00, Duration: 30 day, Stop date: 08/20/12 14:55:00 Coumadin 7.5 mg 7.5 mg, 1 PO No Longer Mike-Amanda [facility] oral tablet tab, PO, Active 2011 Medical Q5PM, 31 tab, Center Substitution Allowed, TAB magnesium 2 gm, 50 mL, IVPB No Longer Mike-Amanda [facility] sulfate Route: IVPB, Active 2011 Medical Drug form: [place] INJ, ONCE, Dosing Weight 67, kg, Total dose=2 gm, Start date: 07/21/12 7:32:00, Duration: 1 doses or times, Stop date: 07/21/12 7:32:00 ibuprofen 400 mg 400 mg, 1 PO No Longer Tolliver [facility] oral tablet tab, Route: Active 2011 Medical PO, Drug Center form: TAB, Q4H, Dosing Weight 67, kg, PRN Pain, Start date: 07/21/12 1:32:00, Duration: 30 day, Stop date: 08/20/12 1:31:00 warfarin 5 mg, 1 tab, PO No Longer Tolliver [facility] Route: PO, Active 2011 Medical Drug form: [place] TAB, Q5PM, Dosing Weight 67, kg, Start date: 07/20/12 21:00:00, Duration: 1 doses or times, Stop date: 07/20/12 21:00:00 metoprolol 5 5 mg, 5 mL, IVP No Longer Shayne [facility] mg/5 ml INJ Route: IVP, Active 2011 Medical Drug form: [place] INJ, ONCE, Dosing Weight 67, kg, PRN Other -See Comment, Start date: 07/20/12 12:00:00, Stop date: 08/19/12 11:59:00 magnesium oxide 800 mg, 2 PO No Longer Cody [facility] tab, Route: Active 2011 Medical PO, Drug Center form: TAB, ONCE, Dosing Weight 67, kg, Start date: 07/20/12 11:38:00, Stop date: 07/20/12 11:38:00 Coumadin 5 mg, 1 tab, PO No Longer Siddiqui [facility] Route: PO, Active 2011 Medical Drug form: [place] TAB, Q5PM, Dosing Weight 67, kg, Start [...] 0.4 mg, 1 SL No Longer Ila [facility] Tab tab, Route: Active 2011 Medical SL, Drug Center form: TAB, Q5Min, Dosing Weight 67, kg, PRN Chest Pain, Start date: 07/17/12 14:12:00, Duration: 30 day, Stop date: 08/16/12 14:07:00 Coreg 6.25 mg, 1 PO No Longer Gaurang [facility] tab, Route: Active 2011 Medical PO, Drug Center form: TAB, ONCE, Start date: 07/17/12 13:28:00, Stop date: 07/17/12 13:28:00 Coreg 6.25 mg, PO No Longer Walker [place] Route: PO, Active 2011 Medical Drug form: [place] TAB, ONCE, Dosing Weight 67, kg, Start date: 07/17/12 8:46:00, Stop date: 07/17/12 8:46:00 magnesium 2 gm, 50 mL, IVPB No Longer Cody [facility] sulfate Route: IVPB, Active 2011 Medical Drug form: [place] INJ, ONCE, Dosing Weight 67, kg, Total [...] mg, 1 tab, PO No Longer Valentin [facility] Route: PO, Active 2011 Medical Drug form: [place] TAB, QPM, Dosing Weight 82.273, kg, Start date: 07/16/12 17:00:00, Duration: 30 day, Stop date: 08/14/12 17:00:00 Protonix 40 mg, 1 tab, PO No Longer Valentin [facility] Route: PO, Active 2011 Medical Drug form: [place] ECTAB, Before Dinner, Dosing Weight 82.273, kg, Start date: 07/16/12 16:30:00, Duration: 30 day, Stop date: 08/14/12 16:30:00 heparin 2,000 unit, 2 IV No Longer Valentin [facility] mL, Route: Active 2011 Medical IV, Drug Center form: INJ, PRN, PRN Abnormal Lab Result, Start date: 07/16/12 11:34:00, Duration: 30 day, Stop date: 08/15/12 11:33:00 heparin 4,000 unit, 4 IV No Longer Valentin [facility] mL, Route: Active 2011 Medical IV, Drug Center form: INJ, PRN, PRN Abnormal Lab Result, Start date: 07/16/12 11:32:00, Duration: 30 day, Stop date: 08/15/12 11:31:00 Heparin - one 4,000 unit, 4 IV No Longer Michael [facility] time bolus for mL, Route: Active 2011 Medical ACS IV, Drug Center form: INJ, ONCE, Dosing Weight 82.273, kg, Priority: STAT, Start date: 07/16/12 11:09:00, Stop date: 07/16/12 11:09:00 Heparin - 25,000 unit, IV No Longer Siddiqui [place] infusion (ACS 500 mL, Rate: Active 2011 Medical Protocol) Start at 13 Center heparin 25,000 units/kg/hr - units in D5W 500 adjust per mL Premix 25,000 ACS protocol, unit Dosing Weight 82.273, kg, Route: IV, Total Volume: 500 ml, Start date: 07/16/12 11:09:00, Duration: 30 day, Stop date: 08/15/12 11:08:00, Replace Every: 24 hr lisinopril 10 mg, 1 tab, PO No Longer Valentin [facility] Route: PO, Active 2011 Medical Drug form: [place] TAB, Daily, Dosing Weight 82.273, kg, Start date: 07/16/12 9:00:00, Duration: 30 day, Stop date: 08/14/12 9:00:00 insulin glargine 20 unit, SUB-Q No Longer Cody [place] Route: SUB-Q, Active 2011 Medical Drug form: Center INJ, Daily, Dosing Weight 82.273, kg, Start date: 07/16/12 9:00:00, Duration: 30 day, Stop date: 08/14/12 9:00:00 clopidogrel 75 mg, 1 tab, PO No Longer Valentin [facility] Route: PO, Active 2011 Medical Drug form: Center TAB, Daily, Dosing Weight 82.273, kg, Start date: 07/16/12 9:00:00, Duration: 30 day, Stop date: 08/14/12 9:00:00 citalopram 10 mg, 1 tab, PO No Longer Valentin [facility] Route: PO, Active 2011 Medical Drug form: Center TAB, Daily, Dosing Weight 82.273, kg, Start date: 07/16/12 9:00:00, Duration: 30 day, Stop date: 08/14/12 9:00:00 aspirin 325 mg 325 mg, 1 PO No Longer Valentin [facility] tablet tab, Route: Active 2011 Medical PO, Drug Center form: TAB, Daily, Dosing Weight 82.273, kg, Start date: 07/16/12 9:00:00, Duration: 30 day, Stop date: 08/14/12 9:00:00 docusate 100 mg, 1 PO No Longer Valentin [facility] cap, Route: Active 2011 Medical PO, [...] gm, 50 mL, IVPB No Longer Xavier [facility] sulfate Route: IVPB, 2011 Medical Drug form: [place] INJ, ONCE, Dosing Weight 82.273, kg, Total dose=2 gm, Start date: 07/16/12 5:50:00, Duration: 1 doses or times, Stop date: 07/16/12 5:50:00 Coreg 12.5 mg, 1 PO No Longer Walker [place] tab, Route: Active 2011 Medical PO, [...] gm, 50 mL, IVPB No Longer Valentin [place] sulfate Route: IVPB, Active 2011 Medical [...] Duration: 30 day, Stop date: 08/14/12 18:14:00 [place] 10/325 1 tab, Route: PO No Longer [...] mg, 1 tab, PO No Longer Winifred Red[place] Route: PO, Active 2011 Medical Drug [...] IV 500 mL, Rate: IV No Longer Pharr [facility] 500 mL 500 ml/hr, Active 2011 Medical Infuse over: Center 1 hr, Route: IV, kg, Total Volume: 500, Priority: STAT, Start date: 07/15/12 16:41:00, Duration: 1 doses or times, Stop date: 07/15/12 17:40:00, Bolus DoseBolus Dose Protonix 40 mg, 1 tab, PO No Longer [facility] Route: PO, Active 2011 Medical Drug form: [place] ECTAB, Before Dinner, Dosing Weight 88.182, kg, Start date: 07/15/12 16:30:00, Duration: 30 day, Stop date: 08/13/12 16:30:00 Lopressor 5 mg, 5 mL, IV No Longer Pharr [facility] Route: IV, Active 2011 Medical Drug form: [place] INJ, ONCE, Start date: 07/15/12 16:26:00, Stop date: 07/15/12 16:26:00 [place] 10/325 1 tab, PO, PO On Hold Pharr 07/15[facility] oral tablet Q4H, PRN, 90 2011 Medical tab, Pain Center Score 6-10, Substitution Allowed, Maintenance, TAB Protonix 40 mg 40 mg, 1 tab, PO On Hold Pharr 07/15[facility] oral enteric PO, Before 2011 Medical coated tablet Dinner, 30 Center tab, Substitution Allowed, ECTAB lisinopril 10 mg 10 mg, 1 tab, PO On Hold Pharr 07/15[facility] oral tablet PO, Daily, 30 2011 Medical tab, Center Substitution Allowed, TAB insulin glargine 15 unit, 0.15 SUB-Q On Hold Pharr [facility] 100 units/mL mL, SUB-Q, 2011 Medical subcutaneous Daily, 1 mL, [place] solution Substitution Allowed, SOLN heparin 5000 See [facility] units/mL Instructions, 2011 Medical injectable SUB-Q Q8H, 1 Center solution syr, Substitution Allowed, SOLNSUB-Q Q8H clopidogrel 75 75 mg, 1 tab, PO On Hold Pharr 07/15[facility] mg oral tablet PO, Daily, 30 2011 Medical tab, Center Substitution Allowed, TAB citalopram 10 mg 10 mg, 1 tab, PO On Hold Pharr 09/19[facility] oral tablet PO, Daily, 2011 Medical tab, Center Substitution Allowed, TAB Coreg 3.125 mg 3.125 mg, 1 PO On Hold Pharr [facility] oral tablet tab, PO, 2011 Medical Q12H, 60 tab, [place] Substitution Allowed, TAB atorvastatin 80 80 mg, 1 tab, PO On Hold Pharr [facility] mg oral tablet PO, QPM, 30 2011 Medical tab, Center Substitution Allowed, TAB aspirin 325 mg 325 mg, 1 PO On Hold Pharr [facility] tablet tab, PO, 2011 Medical Daily, 30 Center tab, Substitution Allowed, TAB senna 8.6 mg 8.6 mg, 1 PO No Longer [facility] oral tablet tab, Route: Active 2011 Medical PO, Drug Center Form: TAB, Dosing Weight 88.182, kg, QNoon, Start date: 07/15/12 12:00:00, Duration: 30 day, Stop date: 08/13/12 12:00:00 Dextrose 50% 25 gm, 50 mL, IVP No Longer [facility] Syringe Route: IVP, Active 2011 Medical Drug Form: [place] INJ, Dosing Weight 88.182, kg, PRN, PRN Blood Glucose Results, Start date: 07/15/12 9:11:00, Duration: 30 day, Stop date: 08/14/12 9:10:00 Dextrose 50% 12.5 gm, 25 IVP No Longer [facility] Syringe mL, Route: Active 2011 [facility] IVP, Drug Center Form: INJ, Dosing Weight 88.182, kg, PRN, PRN Blood Glucose Results, Start date: 07/15/12 9:10:00, Duration: 30 day, Stop date: 08/14/12 9:09:00 influenza virus 0.5 ml, IM No Longer SYSTEM OPID vaccine, Route: IM, Active 2011 Julian, inactivated Drug Form: [facility] INJ, Start Medical date: [place] 07/15/12 9:00:00, Stop date: 07/15/12 9:00:00 lisinopril 10 mg, 1 tab, PO No Longer [facility] Route: PO, Active 2011 Medical Drug form: [place] TAB, Daily, Dosing Weight 88.182, kg, Start date: 07/15/12 9:00:00, Duration: 30 day, Stop date: 08/13/12 9:00:00 insulin glargine 15 unit, 0.15 SUB-Q No Longer [facility] [place] mL, Route: Active 2011 Medical SUB-Q, Drug Center form: INJ, Daily, Dosing Weight 88.182, kg, Start date: 07/15/12 9:00:00, Duration: 30 day, Stop date: 08/13/12 9:00:00 clopidogrel 75 mg, 1 tab, PO No Longer [facility] Route: PO, Active 2011 Medical Drug form: Center TAB, Daily, Dosing Weight 88.182, kg, Start date: 07/15/12 9:00:00, Duration: 30 day, Stop date: 08/13/12 9:00:00 citalopram 10 mg, 1 tab, PO No Longer [facility] Route: PO, Active 2011 Medical Drug form: Center TAB, Daily, Dosing Weight 88.182, kg, Start date: 07/15/12 9:00:00, Duration: 30 day, Stop date: 08/13/12 9:00:00 aspirin 325 mg 325 mg, 1 PO No Longer [facility] [place] tablet tab, Route: Active 2011 Medical PO, Drug Center form: TAB, Daily, Dosing Weight 88.182, kg, Start date: 07/15/12 9:00:00, Duration: 30 day, Stop date: 08/13/12 9:00:00 atorvastatin 10 10 mg, 1 tab, PO No Longer [facility] mg oral tablet PO, Daily, 30 Active 2011 Medical tab, Center Substitution Allowed, TAB atenolol 50 mg 50 mg, 1 tab, PO No Longer [facility] oral tablet PO, Daily, 30 2011 Medical tab, Center Substitution Allowed glimepiride 4 mg Substitution No Longer [place] oral tablet Allowed Active 2011 Medical [place] hydrochlorothiaz 1 tab, PO, PO No Longer [place] juno-losartan 25 Daily, 30 Active 2011 Medical mg-100 mg oral tab, Center tablet Substitution Allowed, Maintenance, TAB aspirin 81 mg 81 mg, 1 tab, PO No Longer [place] tablet, chewable PO, Daily, Active 2011 Medical tab, Center Substitution Allowed, CHEWTAB amLODipine 5 mg 5 mg, 1 tab, PO No Longer [place] oral tablet PO, Daily, 30 2011 Medical tab, Center Substitution Allowed, TAB lisinopril 30 mg Daily, No Longer [place] oral tablet Substitution Active 2011 Medical Allowed Center NovoLog Mix Substitution No Longer [place] 70/30 FlexPen Allowed Active 2011 Medical [place] heparin 5000 5,000 unit, 1 SUB-Q No Longer Winifred [place] units/mL mL, Route: Active 2011 Medical injectable SUB-Q, Drug Center solution form: INJ, Q8H, Dosing Weight 88.182, kg, Start date: 07/15/12 0:00:00, Duration: 30 day, Stop date: 08/13/12 16:00:00 Insulin regular 1 unit, 0.01 SUB-Q No Longer Winifred [place] mL, Route: Active 2011 Medical SUB-Q, Drug Center form: SOLN, TID-Before Meals, Dosing Weight 82.273, kg, PRN Blood Glucose Results, Start date: 07/14/12 23:06:00, Duration: 30 day, Stop date: 08/13/12 23:05:00 docusate 100 mg, 1 PO No Longer Win[facility]red [place] cap, Route: Active 2011 Medical PO, Drug Center form: CAP, Q12H, Dosing Weight 88.182, kg, Start date: 07/14/12 21:00:00, Duration: 30 day, Stop date: 08/13/12 9:00:00 Coreg 3.125 mg, 1 PO No Longer Valentin [place] tab, Route: Active 2011 Medical PO, Drug Center form: TAB, Q12H, Dosing Weight 88.182, kg, Start date: 07/14/12 21:00:00, Duration: 30 day, Stop date: 08/13/12 9:00:00 nitroglycerin 0.4 mg, 1 SL No Longer [facility] 0.4 mg tab, Route: Active 2011 Medical sublingual SL, Drug Center tablet form: TAB, Q5Min, Dosing Weight 88.182, kg, PRN Chest Pain, Start date: 07/14/12 17:50:00, Duration: 30 day, Stop date: 08/13/12 17:49:00 bisacodyl 10 mg, 1 [place] No Longer [facility] supp, Route: Active 2011 Medical [place], Drug Center form: SUPP, Daily, Dosing Weight 88.182, kg, PRN Constipation, Start date: 07/14/12 17:50:00, Duration: 30 day, Stop date: 08/13/12 17:49:00 acetaminophen 650 mg, 2 PO No Longer [facility] tab, Route: Active 2011 Medical PO, Drug Center form: TAB, Q6H, Dosing Weight 88.182, kg, PRN Pain, Start date: 07/14/12 17:49:00, Duration: 30 day, Stop date: 08/13/12 17:48:00 [place] 10/325 1 tab, Route: PO No Longer [facility] oral tablet PO, Drug Active 2011 Medical Form: TAB, Center Dosing Weight 88.182, kg, Q4H, PRN Pain Score 6-10, Start date: 07/14/12 17:48:00, Duration: 30 day, Stop date: 08/13/12 17:47:00 clopidogrel 75 75 mg, 1 tab, PO No Longer [facility] [place] mg oral tablet PO, Daily, 30 Active 2011 Medical tab, Center Substitution Allowed, TAB Protonix 40 mg 40 mg, 1 tab, PO [facility] Long[facility] oral enteric PO, Before Active 2011 Medical coated tablet Dinner, 30 Center tab, Substitution Allowed, ECTAB insulin regular 7 unit, 0.07 SUB-Q No Longer [facility] human mL, SUB-Q, Active 2011 Medical recombinant 100 PRN, PRN, 1 Center units/mL mL, Abnormal injectable Lab Result, solution Substitution Allowed, SOLN insulin regular 5 unit, 0.05 SUB-Q No Longer [facility] [place] human mL, SUB-Q, Active 2011 Medical recombinant 100 PRN, PRN, 1 Center units/mL mL, Abnormal injectable Lab Result, solution Substitution Allowed, SOLN insulin regular 3 unit, 0.03 SUB-Q [facility] human mL, SUB-Q, 2011 Medical recombinant 100 PRN, PRN, 1 Center units/mL mL, Abnormal injectable Lab Result, solution Substitution Allowed, SOLN insulin glargine 15 unit, 0.15 SUB-Q [facility] Long[facility] [place] 100 units/mL mL, SUB-Q, Active 2011 Medical subcutaneous Daily, 1 mL, [place] solution Substitution Allowed, SOLN heparin 5000 See No Longer [facility] [place] units/mL Instructions, 2011 Medical injectable 5000 SUB-Q Center solution Q8H, 1 vial, Substitution Allowed, [id number] SUB-Q Q8H Coreg 3.125 mg 3.125 mg, 1 PO [facility] Longer [facility] [place] oral tablet tab, PO, Active 2011 Medical Q12H, 60 tab, Center Substitution Allowed, TAB lisinopril 10 mg 10 mg, 1 tab, PO [facility] Longer [facility] [place] oral tablet PO, Daily, 30 2011 Medical tab, Center Substitution Allowed, TAB citalopram 10 mg 10 mg, 1 tab, PO [facility] Long[facility] [place] oral tablet PO, Daily, 30 2011 Medical tab, Center Substitution Allowed, TAB atorvastatin 80 80 mg, 1 tab, PO [facility] Longer [facility] [place] mg oral tablet PO, QPM, 30 2011 Medical tab, Center Substitution Allowed, TAB aspirin 325 mg 325 mg, 1 PO [facility] Longer [facility] [place] tablet tab, PO, Active 2011 Medical Daily, 30 [place] tab, Substitution Allowed, TAB magnesium 2 gm, 50 mL, IVPB No Longer Napierkowski [place] sulfate Route: IVPB, 2011 Medical Drug form: [place] INJ, Q2H, Dosing Weight 88.182, kg, Start date: 07/14/12 14:00:00, Duration: 2 doses or times, Stop date: 07/14/12 16:00:00, For Mg=1.5 - 1.7 mg/dLFor Mg=1.5 - 1.7 mg/dL metoprolol 5 5 mg, 5 mL, IV No Longer Mike-Amanda [place] mg/5 ml INJ Route: IV, Active 2011 Medical Drug form: [place] INJ, ONCE, Dosing Weight 88.182, kg, Start date: 07/14/12 6:26:00, Stop date: 07/14/12 6:26:00 Protonix 40 mg, 1 tab, PO No Longer Larsen [place] Route: PO, Active 2011 Medical Drug form: [place] ECTAB, Before Dinner, Dosing Weight 88.182, kg, Start date: 07/13/12 16:30:00, Duration: 30 day, Stop date: 08/11/12 16:30:00 lisinopril 10 mg, 1 tab, PO No Longer Siddiqui [place] Route: PO, Active 2011 Medical Drug form: [place] TAB, Daily, Dosing Weight 88.182, kg, Start date: 07/13/12 9:00:00, Duration: 30 day, Stop date: 08/11/12 9:00:00 magnesium 2 gm, 50 mL, IVPB No Longer Mike-Amanda [place] sulfate Route: IVPB, Active 2011 Medical Drug form: [place] INJ, ONCE, Dosing Weight 88.182, kg, Start date: 07/13/12 7:19:00, Duration: 1 doses or times, Stop date: 07/13/12 7:19:00, For Mg=1.8 - 2 mg/dLFor Mg=1.8 - 2 mg/dL calcium 1,000 mg, 10 IVPB No Longer Mike-Amanda [place] gluconate + mL, Route: Active 2011 Medical Sodium Chloride IVPB, ONCE, [place] 0.9% IV 50 mL Dosing Weight 88.182, kg, Start date: 07/13/12 7:18:00, Duration: 1 doses or times, Stop date: 07/13/12 7:18:00, For Ionized Ca=1 - 1.03 mmol/L or Corrected Ca=8 - 8.5mg/dLFor Ionized Ca=1 - 1.03 mmol/L or Corrected Ca=8 - 8.5mg/dL metoprolol 5 5 mg, 5 mL, IV No Longer Cody [place] mg/5 ml INJ Route: IV, Active 2011 Medical Drug form: [place] INJ, ONCE, Dosing Weight 88.182, kg, Start [...] mg, 1 cap, PO No Longer Mike-Amanda [place] Route: PO, Active 2011 Medical Drug form: [place] CAP, TID, Dosing Weight 88.182, kg, PRN Itching, Start date: 07/12/12 11:50:00, Duration: 30 day, Stop date: 08/11/12 11:49:00 Coreg 3.125 mg, 1 PO No Longer Siddiqui [place] tab, Route: Active 2011 Medical PO, Drug Center form: TAB, Q12H, Dosing Weight 88.182, kg, Start date: 07/12/12 10:30:00, Duration: 30 day, Stop date: 08/11/12 6:00:00 Colace 50 mg 50 mg, 1 cap, PO No Longer Siddiqui [place] oral capsule Route: PO, Active 2011 Medical Drug form: [place] CAP, BID, Dosing Weight 88.182, kg, PRN [...] 2,000 mg, 20 IVPB No Longer Mike-Amanda [place] gluconate + mL, Route: Active 2011 [facility] Sodium Chloride IVPB, ONCE, [place] 0.9% IV 80 mL Dosing Weight 88.182, kg, Start date: 07/12/12 7:18:00, Stop date: 07/12/12 7:18:00 Chloraseptic 1 spray, MUCOUS No Longer Larsen [place] 1.4% spray Route: MUCOUS MEM Active 2011 Medical MEM, Q4H, [place] Drug form: SPRY PRN Sore Throat, Start date: 07/12/12 1:37:00, Stop date: 08/11/12 1:36:00 heparin 5000 5,000 unit, 1 SUB-Q No Longer Shayne [place] units/mL mL, Route: Active 2011 [facility] injectable SUB-Q, Drug Center solution form: INJ, Q8H, Dosing Weight 88.182, kg, Start date: 07/11/12 16:00:00, Duration: 30 day, Stop date: 08/10/12 8:00:00 lactulose 10 gm, 15 ml, PO No Longer Mike-Amanda [place] Route: PO, Active 2011 Medical Drug Form: [place] SYRP, Dosing Weight 88.182, kg, Daily, PRN Constipation, Start date: 07/11/12 12:02:00, Duration: 30 day, Stop date: 08/10/12 12:01:00 normal saline 250 mL, Rate: IV No Longer Mike-Amanda [place] 0.9% IV 250 mL 250 ml/hr, Active 2011 Medical Infuse over: Center 1 hr, Route: IV, kg, Total Volume: 250, Start date: 07/11/12 11:59:00, Duration: 1 doses or times, Stop date: 07/11/12 12:58:00 normal saline 1,000 mL, IV No Longer Mike-Amanda [place] 0.9% IV 1,000 mL Rate: 120 Active 2011 Medical ml/hr, Infuse Center over: 8.3 hr, Route: IV, kg, Total Volume: 1,000, Start date: 07/11/12 9:28:00, Stop date: 08/10/12 9:27:00 atorvastatin 80 mg, 1 tab, PO No Longer Solhpour [facility] Route: PO, Active 2011 Medical Drug form: [place] TAB, QPM, Dosing Weight 88.182, kg, Start date: 07/10/12 17:00:00, Duration: 30 day, Stop date: 08/08/12 17:00:00 Protonix 40 mg, Route: IVP No Longer Larsen [facility] IVP, Drug Active 2011 Medical form: INJ, Center Before Dinner, Dosing Weight 88.182, kg, Patient is NPO, Start date: 07/10/12 16:30:00, Duration: 30 day, Stop date: 08/08/12 16:30:00 ondansetron 4 mg, 2 mL, IVP No Longer Cody [facility] Route: IVP, Active 2011 Medical Drug form: [place] INJ, Q4H, Dosing Weight 88.182, kg, PRN Nausea & Vomiting, Start date: 07/10/12 13:21:00, Duration: 30 day, Stop date: 08/09/12 13:20:00 Integrilin 75 mg 75 mg, 100 IV No Longer Shayne [facility] in 100 ml premix mL, Rate: Active 2011 Medical IV 75 mg Titrate, [place] Dosing Weight 88.182, kg, Route: IV, Total Volume: 100 mL, Start date: 07/10/12 10:43:00, Duration: 2 day, Stop date: 07/12/12 10:42:00, Replace Every: 24 hr citalopram 10 mg, 1 tab, PO No Longer Mike-Amanda [facility] Route: PO, Active 2011 Medical Drug form: Center TAB, Daily, Dosing Weight 88.182, kg, Start date: 07/10/12 9:00:00, Duration: 30 day, Stop date: 08/08/12 9:00:00 aspirin 325 mg 325 mg, 1 PO No Longer Mike-Amanda [facility] tablet tab, Route: Active 2011 Medical PO, Drug Center form: TAB, Daily, Dosing Weight 88.182, kg, Start date: 07/10/12 9:00:00, Duration: 30 day, Stop date: 08/08/12 6:00:00 atenolol 100 mg 100 mg, 1 PO No Longer Siddiqui [place] oral tablet tab, Route: Active 2011 Medical PO, Drug Center form: TAB, Daily, Dosing Weight 88.182, kg, Start date: 07/10/12 9:00:00, Duration: 30 day, Stop date: 08/08/12 9:00:00 insulin glargine 15 unit, 0.15 SUB-Q No Longer Mike-Amanda [facility] mL, Route: Active 2011 Medical SUB-Q, Drug Center form: INJ, Daily, Dosing Weight 88.182, kg, Start date: 07/10/12 9:00:00, Duration: 30 day, Stop date: 08/08/12 9:00:00 clopidogrel 75 mg, 1 tab, PO No Longer Leigha [facility] Route: PO, Active 2011 Medical Drug form: Center TAB, Daily, Dosing Weight 88.182, kg, Start date: 07/10/12 9:00:00, Duration: 30 day, Stop date: 08/08/12 6:00:00 lisinopril 10 mg, 1 tab, PO No Longer Mike-Amanda [facility] Route: PO, Active 2011 Medical Drug form: Center TAB, Daily, Dosing Weight 88.182, kg, Start date: 07/10/12 9:00:00, Duration: 30 day, Stop date: 08/08/12 9:00:00 magnesium 2 gm, 50 mL, IVPB No Longer Mike-Amanda [facility] sulfate Route: IVPB, Active 2011 Medical Drug form: [place] INJ, Q2H, Dosing Weight 88.182, kg, Start date: 07/10/12 8:00:00, Duration: 3 doses or times, Stop date: 07/10/12 12:00:00, For Mg=1.0 - 1.4 mg/dLFor Mg=1.0 - 1.4 mg/dL morphine Sulfate 2 mg, Route: IVP No Longer Solhpour Reddy IVP, ONCE, Active 2011 Medical Dosing Weight [place] 88.182, kg, Start date: 07/10/12 7:44:00, Stop date: 07/10/12 7:44:00 morphine Sulfate 2 mg, 0.5 mL, IVP No Longer Larsen [facility] Route: IVP, Active 2011 Medical Drug form: [place] INJ, Q3H, Dosing Weight 88.182, kg, PRN Pain, Start date: 07/10/12 7:33:00, Stop date: 08/09/12 7:32:00 niCARdipine 40 40 mg, 200 IV No Longer Solhpour [place] mg in NS 200 ml mL, Rate: Active 2011 Medical IV 40 mg Titrate, Center Dosing Weight 88.182, kg, Route: IV, Total Volume: 200 mL, Duration: 30 day, Stop date: 08/09/12 7:14:00, Replace Every: 24 hr Cardene 40 mg in 40 mg, 200 IV No Longer Shayne [place] NS 200 ml IV 40 mL, Rate: Active 2011 Medical mg Titrate, Center Dosing Weight 88.182, kg, Route: IV, Total Volume: 200 mL, Duration: 30 day, Stop date: 08/09/12 7:07:00, Replace Every: 24 hr Dextrose 50% 12.5 gm, 25 IVP No Longer Mike-Amanda [facility] Syringe mL, Route: Active 2011 Medical IVP, Drug Center Form: INJ, Dosing Weight 88.182, kg, PRN, PRN Blood Glucose Results, Start date: 07/10/12 6:32:00, Duration: 30 day, Stop date: 08/09/12 6:31:00 glucagon 1 mg, Route: IM No Longer Mike-Amanda [facility] IM, Drug Active 2011 Medical form: [place] PDR/INJ, PRN, Dosing Weight 88.182, kg, PRN Blood Glucose Results, Start date: 07/10/12 6:32:00, Duration: 30 day, Stop date: 08/09/12 6:31:00 amLODipine 5 mg, 1 tab, PO No Longer Siddiqui [facility] Route: PO, Active 2011 Medical Drug form: [place] TAB, Daily, Dosing Weight 88.182, kg, Start date: 07/10/12 6:14:00, Duration: 30 day, Stop date: 08/08/12 9:00:00 lisinopril 10 mg, 1 tab, PO No Longer Gibson [facility] Route: PO, Active 2011 Medical Drug form: [place] TAB, ONCE, Dosing Weight 88.182, kg, Start date: 07/10/12 4:10:00, Stop date: 07/10/12 4:10:00 Procardia XL 60 mg, 1 tab, PO No Longer Mike-Amanda [facility] Route: PO, Active 2011 Medical Drug form: [place] ERTAB, ONCE, Dosing Weight 88.182, kg, Start date: 07/10/12 4:02:00, Stop date: 07/10/12 4:02:00 morphine Sulfate 2 mg, 0.5 mL, IVP No Longer Mike-Amanda [facility] Route: IVP, Active 2011 Medical Drug form: [place] INJ, ONCE, Dosing Weight 88.182, kg, Start date: 07/10/12 2:35:00, Stop date: 07/10/12 2:35:00 metoprolol 25 mg, 1 tab, PO No Longer MikeAmanda [facility] tartrate Route: PO, Active 2011 Medical Drug form: [place] TAB, Q6H, Dosing Weight 88.182, kg, Start date: 07/10/12 0:00:00, Duration: 30 day, Stop date: 08/08/12 18:00:00 morphine Sulfate 1 mg, Route: IVP No Longer Gibson [facility] IVP, ONCE, Active 2011 Medical Dosing Weight [place] 88.182, kg, Start date: 07/09/12 23:59:00, Stop date: 07/09/12 23:59:00 atenolol 50 mg 50 mg, 1 tab, PO No Longer Mike-Amanda [facility] oral tablet Route: PO, Active 2011 Medical Drug form: [place] TAB, ONCE, Dosing Weight 88.182, kg, Start date: 07/09/12 21:03:00, Stop date: 07/09/12 21:03:00 lisinopril 10 mg, 1 tab, PO No Longer Mike-Amanda [facility] Route: PO, Active 2011 Medical Drug form: [place] TAB, ONCE, Dosing Weight 88.182, kg, Start date: 07/09/12 21:02:00, Stop date: 07/09/12 21:02:00 Saline Flush 5 ml, Route: IVP No Longer Leigha [facility] 0.9% IVP, Drug Active 2011 Medical Form: INJ, Center Dosing Weight 88.182, kg, Q12H, Start date: 07/09/12 21:00:00, Duration: 30 day, Stop date: 08/08/12 9:00:00 famotidine 20 mg, 1 tab, PO No Longer Cody [place] Route: PO, Active 2011 Medical Drug form: Center TAB, Q12H, Dosing Weight 88.182, kg, Start date: 07/09/12 21:00:00, Duration: 30 day, Stop date: 08/08/12 9:00:00 nitroglycerin SL 0.4 mg, 1 SL No Longer Mike-Amanda [facility] Tab tab, Route: Active 2011 Medical SL, Drug Center form: TAB, Q5Min, Dosing Weight 88.182, kg, PRN Chest Pain, Start date: 07/09/12 20:20:00, Duration: 3 doses or times, Stop date: Limited # of times Saline Flush 5 ml, Route: IVP No Longer Leigha [place] 0.9% IVP, Drug Active 2011 Medical Form: INJ, Center Dosing Weight 88.182, kg, PRN, PRN Line Flush, Start date: 07/09/12 19:20:00, Duration: 30 day, Stop date: 08/08/12 19:19:00 nitroglycerin SL 0.4 mg, 1 SL No Longer Leigha [facility] Tab tab, Route: Active 2011 Medical SL, Drug Center form: TAB, Q5Min, Dosing Weight 88.182, kg, PRN Chest Pain, Start date: 07/09/12 19:20:00, Duration: 3 doses or times, Stop date: 08/09/12 0:00:00 aspirin 325 mg 325 mg, 4.01 PO No Longer Leigha [place] tablet tab, Route: Active 2011 Medical PO, Drug Center form: CHEWTAB, ONCE, Dosing Weight 88.182, kg, Start date: 07/09/12 19:20:00, Stop date: 07/09/12 19:20:00 acetaminophen 650 mg, 20.3 PO No Longer Fazakerly [facility] mL, Route: Active 2011 Medical PO, Drug Center form: LIQ, Q8H, Dosing Weight 88.182, kg, PRN Pain/Fever, Start date: 07/09/12 16:54:00, Duration: 30 day, Stop date: 08/08/12 16:53:00 labetalol 10 mg, 2 mL, IVP No Longer La [facility] Route: IVP, Active 2011 Medical Drug form: Center INJ, Q15Min, Dosing Weight 88.182, kg, PRN Hypertension, Start date: 07/09/12 16:21:00, Duration: 3 doses or times, Stop date: Limited # of times Dextrose 50% 25 gm, 50 mL, IVP No Longer Dawson [facility] Syringe Route: IVP, Active 2011 Medical Drug Form: Center INJ, Dosing Weight 88.182, kg, PRN, PRN Abnormal Lab Result, Start date: 07/08/12 21:55:00, Duration: 30 day, Stop date: 08/07/12 21:54:00 insulin regular 3 unit, 0.03 SUB-Q No Longer Dawson [facility] human mL, Route: Active 2011 Medical recombinant 100 SUB-Q, Drug Center units/mL form: SOLN, injectable PRN, Dosing solution Weight 88.182, kg, PRN Abnormal Lab Result, Start date: 07/08/12 21:55:00, Duration: 30 day, Stop date: 08/07/12 21:54:00 acetaminophen-ox 1 tab, Route: PO No Longer Mkie-Amanda [facility] ycodone 325 mg-5 PO, Drug Active 2011 Medical mg oral tablet Form: TAB, Center Q4H, PRN Pain Score 6-10, Start date: 07/08/12 21:03:00, Stop date: 08/07/12 21:02:00 Saline Flush 5 ml, Route: IVP No Longer Gloria [facility] 0.9% IVP, Drug Active 2011 Medical Form: INJ, Center Dosing Weight 88.182, kg, Q12H, Start date: 07/07/12 21:00:00, Duration: 30 day, Stop date: 08/06/12 9:00:00 senna 8.6 mg, 1 PO No Longer Gloria [facility] tab, Route: Active 2011 Medical PO, Drug Center Form: TAB, Dosing Weight 88.182, kg, Q12H, Start date: 07/07/12 21:00:00, Duration: 30 day, Stop date: 08/06/12 9:00:00 docusate sodium 100 mg, 1 PO No Longer Gloria [facility] 100 mg oral cap, Route: Active 2011 Medical capsule PO, Drug Center form: CAP, Q12H, Dosing Weight 88.182, kg, Start date: 07/07/12 21:00:00, Duration: 30 day, Stop date: 08/06/12 9:00:00 cefazolin (SCIP) 1 gm, Route: IVPB No Longer Gloria [place] IVPB, Drug Active 2011 Medical form: Center PDR/INJ, ABXQ8H, Dosing Weight 88.182, kg, Start date: 07/07/12 20:30:00, Duration: 3 doses or times, Stop date: 07/08/12 12:30:00 Percocet 10/325 2 tab, Route: PO No Longer Dawson [place] oral tablet PO, Drug Active 2011 Medical Form: TAB, Center Dosing Weight 88.182, kg, Q4H, PRN Pain, Start date: 07/07/12 20:03:00, Duration: 30 day, Stop date: 08/06/12 20:02:00 atorvastatin 10 10 mg, 1 tab, PO No Longer [place] mg oral tablet PO, Daily, 30 Active 2011 Medical tab, Center Substitution Allowed, TAB amLODipine 5 mg, PO, PO No Longer Mike-Amanda [place] Daily, Active 2011 Medical Substitution Center Allowed cefazolin (SCIP) 1 gm, Route: IVPB No Longer Gloria [facility] IVPB, Drug Active 2011 Medical form: Center PDR/INJ, ABXQ8H, Dosing Weight 88.182, kg, Start date: 07/07/12 16:00:00, Duration: 3 doses or times, Stop date: 07/08/12 8:00:00 ondansetron 4 mg, 2 mL, IVP No Longer Kohanof [place] Route: IVP, Active 2011 Medical Drug form: Center INJ, ONCE, Dosing Weight 88.182, kg, PRN Nausea & Vomiting, Start date: 07/07/12 13:36:00 labetalol 5 mg, Route: IVP No Longer [facility] IVP, Q5Min, Active 2011 Medical Dosing Weight Center 88.182, kg, PRN Elevated BP, Start date: 07/07/12 13:36:00, Duration: 5 doses or times, Stop date: Limited # of times hydrALAZINE 5 mg, 0.25 IVP No Longer [facility] mL, Route: Active 2011 Medical IVP, Drug Center form: INJ, Q5Min, Dosing Weight 88.182, kg, PRN Elevated BP, Start date: 07/07/12 13:36:00, Duration: 4 doses or times, Stop date: 07/08/12 0:00:00 flumazenil 0.2 mg, 2 mL, IVP No Longer [facility] Route: IVP, Active 2011 Medical Drug form: Center INJ, PRN, Dosing Weight 88.182, kg, PRN Benzodiazepin e Reversal, Initial dose, Start date: 07/07/12 13:36:00, Duration: 30 day, Stop date: 08/06/12 13:35:00 naloxone 0.04 mg, 0.1 IVP No Longer [facility] mL, Route: Active 2011 [facility] IVP, Drug Center form: INJ, Q2MIN, Dosing Weight 88.182, kg, PRN Narcotic Reversal, Start date: 07/07/12 13:36:00, Duration: 8 doses or times, Stop date: 07/08/12 0:00:00 hydromorphone 0.5 mg, IVP No Longer [facility] Route: IVP, Active 2011 Medical Q5Min, Dosing Center Weight 88.182, kg, PRN Pain Score 4-6, Start date: 07/07/12 13:36:00, Duration: 5 doses or times, Stop date: Limited # of times Saline Flush 5 ml, Route: IVP No Longer Gloria [place] 0.9% IVP, Drug Active 2011 Medical Form: INJ, Center Dosing Weight 88.182, kg, PRN, PRN Line Flush, Start date: 07/07/12 13:30:00, Duration: 30 day, Stop date: 08/06/12 13:29:00 ondansetron 4 mg, 2 mL, IVP No Longer Cody [facility] Route: IVP, Active 2011 Medical Drug form: Center INJ, Q8H, Dosing Weight 88.182, kg, PRN Nausea & Vomiting, Start date: 07/07/12 13:30:00, Duration: 30 day, Stop date: 08/06/12 13:29:00 tramadol 50 mg, 1 tab, PO No Longer Fazakerly [facility] Route: PO, Active 2011 Medical Drug form: Center TAB, Q4H, Dosing Weight 88.182, kg, PRN Pain Score 1-3, Start date: 07/07/12 13:30:00, Duration: 30 day, Stop date: 08/06/12 13:29:00 morphine Sulfate 2 mg, 0.5 mL, IVP No Longer Fazakerly [facility] Route: IVP, Active 2011 Medical Drug form: Center INJ, Q1H, Dosing Weight 88.182, kg, PRN Pain Score 7-10, Start date: 07/07/12 13:30:00, Duration: 30 day, Stop date: 08/06/12 13:29:00 bisacodyl 10 mg, 1 [place] No Longer Gloria [place] supp, Route: Active 2011 Medical [place], Drug Center form: SUPP, Daily, Dosing Weight 88.182, kg, PRN Constipation, Start date: 07/07/12 13:30:00, Duration: 30 day, Stop date: 08/06/12 13:29:00 acetaminophen-hy 2 tab, Route: PO No Longer Napierkowski [facility] drocodone 325 PO, Drug Active 2011 Medical mg-10 mg oral Form: TAB, Center tablet Dosing Weight 88.182, kg, Q4H, PRN Pain Score 7-10, Start date: 07/07/12 13:30:00, Duration: 30 day, Stop date: 08/06/12 13:29:00 acetaminophen 650 mg, 20.3 PO No Longer Fazakerly [place] mL, Route: Active 2011 Medical PO, Drug Center form: LIQ, Q4H, Dosing Weight 88.182, kg, PRN Pain/Fever, Start date: 07/07/12 13:30:00, Duration: 30 day, Stop date: 08/06/12 13:29:00 Sodium Chloride 1,000 mL, IV No Longer Fazakerly [place] 0.9% IV 1,000 mL Rate: 50 Active 2011 Medical ml/hr, Infuse Center over: 20 hr, Route: IV, kg, Total Volume: 1,000, Start date: 07/07/12 13:30:00, Duration: 30 day, Stop date: 08/06/12 13:29:00 cefazolin 2 gm, Route: IVPB No Longer Kohanof [place] IVPB, ONCE, Active 2011 Medical Dosing Weight Center 88.182, kg, Start date: 07/07/12 12:23:00, Duration: 1 doses or times, Stop date: 07/07/12 12:23:00 cefazolin 1 gm, Route: IVPB No Longer Kohanof [facility] IVPB, ONCE, Active 2011 Medical Dosing Weight Center 88.182, kg, Start date: 07/07/12 8:26:00, Duration: 1 doses or times, Stop date: 07/07/12 8:26:00 cefazolin 1 gm, Route: IVPB No Longer Morgan [place] IVPB, Drug Active 2011 Medical form: Center PDR/INJ, ONCALL, Start date: 07/07/12 7:00:00, Duration: 1 day, Stop date: 07/08/12 6:59:00 Celebrex 200 mg 400 mg, 2 PO No Longer [place] oral capsule cap, PO, Active 2011 Medical Daily, 30 Center cap, Substitution Allowed, CAP gabapentin 100 200 mg, 2 PO No Longer [place] mg oral capsule cap, PO, TID, Active 2011 Medical 240 cap, Center Substitution Allowed atenolol 100 mg 100 mg, 1 PO No Longer Mike-Amanda [place] oral tablet tab, PO, Active 2011 Medical Daily, 30 Center tab, Substitution Allowed citalopram 10 mg 10 mg, 1 tab, PO No Longer Mike-Amanda [facility] oral tablet PO, Daily, 30 Active 2011 Medical tab, Center Substitution Allowed, TAB glimepiride 4 mg 4 mg, 1 tab, PO No Longer [facility] oral tablet PO, BID, 30 Active 2011 Medical tab, Center Substitution Allowed, TAB hydrochlorothiaz 1 tab, PO, PO No Longer [facility] juno-losartan 25 Daily, 30 Active 2011 Medical mg-100 mg oral tab, Center tablet Substitution Allowed, Maintenance, TAB lisinopril 30 mg 30 mg, 1 tab, PO No Longer Mike-Amanda [facility] oral tablet PO, Daily, 30 Active 2011 Medical tab, Center Substitution Allowed, TAB aspirin 81 mg 81 mg, 1 tab, PO No Longer [facility] tablet, enteric PO, Daily, 0 Active 2011 Medical coated tab, Center Substitution Allowed, ECTAB NovoLog Mix Substitution No Longer [facility] 70/30 Allowed Active 2011 [facility] Allergies, Adverse Reactions, Alerts Substance Category Reaction Severity Reaction Status Date Comments Source type Reported [facility]one [facility] Immunizations Immunization Date Site Status Last Updated Comments Source Given pneumococcal Right completed [facility] 23-valent 8 deltoid for Adv vaccine Heart Failure,[facility] pneumococcal Right completed [facility] 23-valent 8 deltoid for Adv vaccine Heart Failure,[facility] pneumococcal Right completed [facility] 23-valent 8 deltoid for Adv vaccine Heart Failure,[facility] influenza virus Left completed [facility] vaccine, 8 deltoid for Adv inactivated Heart Failure,[facility] influenza virus Left completed [facility] vaccine, 8 deltoid for Adv inactivated Heart Failure,[facility] influenza virus Left completed [facility] vaccine, 8 deltoid for Adv inactivated Heart Failure,[facility] pneumococcal Not Given Yennifer [facility]ent 2 [facility] completed [facility] vaccine, 2 [facility] inactivated [facility], OPID [facility] influenza virus completed Derrick OPID vaccine, 2 Julian, inactivated [facility] Results Order Name Results Value Reference Date Interpretation Comments Source Range PET CT PET CT Tumor EXAM: NM PET CT Skull Base to Mid Thigh 07/16 - OPID Tumor imaging-sk - Julian imaging-sku l-midthigh This report was dictated by a Cashier T[employer] Room/Fellow. I have personally reviewed the images as [...] Hgb A1C 5.8 % <=5.6 % 05/01 [facility] CHEMISTRY /[address] [place] [address] Chest 1view Chest 1view EXAM: XR CHEST 1 VIEW 05/01 - [facility] DX DX /2018 [facility] DATE: 05/01/2018 9:09 AM CDT Read [...] eGFR of 60-89 may be normal in [facility] mL/min/1. some populations, particularly the elderly, for whom the CKD-EPI formula has not been extensively validated. Use of the eGFR is not recommended in the following populations: [address] Individuals with unstable creatinine concentrations, including [...] Lvl 96 meq/L 95 - 109 05/[address] CHEM PANEL CO2 29 meq/L 24 - 32 05/[address] CHEM PANEL Sodium Lvl 136 meq/L 135 - 145 05/[address] CHEM PANEL Potassium 3.7 meq/L 3.5 - 5.1 05/[address] CHEM PANEL Creatinine 1.02 mg/dL 0.50 - 05/01 [facility] Lvl 1.40 [facility] CHEM PANEL BUN 56 mg/dL 7 - 22 05/[address] CHEM PANEL Glucose Lvl 209 mg/dL 70 - 99 05/[address] CHEM PANEL Calcium Lvl 9.8 mg/dL 8.5 - 10.5 05/[address] CHEM PANEL AGAP 14.7 meq/L 10.0 - 05/01 [facility] 20.0 [facility] CHEM PANEL Phosphorus 2.7 mg/dL 2.5 - 4.5 05/[address] CHEM PANEL Magnesium 1.8 mg/dL 1.8 - 2.4 05/[address] HEMATOLOGY Basophils 0.4 % 0.0 - 1.0 05/[address] HEMATOLOGY Segs-Bands # 0.7 K/CMM 1.5 - 8.1 05/[address] HEMATOLOGY Smudge Moderate None Seen 05/01 [facility] [address] [place] [address] *ABN* [place] (05/01/18 4:09 AM) HEMATOLOGY RBC Morph Normal 05/01 [facility] (05/01/18 4:09 AM) [place] HEMATOLOGY Eosinophils 0.2 % 0.0 - 4.0 07 [facility] HEMATOLOGY Plt Morph Normal 05/01 [facility] (05/01/18 4:09 AM) [place] HEMATOLOGY Segs 6.2 % 45.0 - 05/01 [place] 75.0 [facility] HEMATOLOGY Lymphocytes 10.6 K/CMM 1.0 - 5.5 05/01 [facility] # [facility] HEMATOLOGY Monocytes # 0.1 K/CMM 0.0 - 0.8 05/01 [facility] HEMATOLOGY Lymphocytes 92.7 % 20.0 - 07 [place] 40.0 [facility] HEMATOLOGY Monocytes 0.5 % 2.0 - 12.0 05/[address] [place] [address] HEMATOLOGY Platelet 71 K/CMM 133 - 450 05/01 [facility] HEMATOLOGY MCHC 34.6 g/dL 32.0 - 05/01 36.0 [facility] HEMATOLOGY RDW 18.0 % 11.5 - 05/01 [place] 14.5 [facility] HEMATOLOGY WBC 11.5 K/CMM 3.7 - 10.4 05/01 [facility] HEMATOLOGY RBC 2.83 M/CMM 4.20 - 05/01 [place] 5.40 [facility] HEMATOLOGY Hgb 9.6 g/dL 12.0 - 05/01 [facility] 16.0 [facility] HEMATOLOGY Hct 27.7 % 36.0 - 05/01 [place] 48.0 [facility] HEMATOLOGY MPV 9.5 fL 7.4 - 10.4 05/[address] [place] [address] HEMATOLOGY MCV 97.7 fL 80.0 - 05/01 [place] 98.0 [facility] HEMATOLOGY MCH 33.8 pg 27.0 - 07 31.0 [facility] CHEM PANEL eGFR 49 04/30 Result Comment: The eGFR is calculated using the CKD-EPI formula. In most young, healthy individuals the eGFR will be >90 mL/ min/1.73m2. The eGFR declines with age. An eGFR of 60-89 may be normal in [facility] mL/min/1.7 some populations, particularly the elderly, for whom the CKD-EPI formula has not been extensively validated. Use of the eGFR is not recommended in the following populations: [address] Individuals with unstable creatinine concentrations, including [...] Lvl 96 meq/L 95 - 109 04/[address] CHEM PANEL CO2 30 meq/L 24 - 32 04/[address] CHEM PANEL Glucose Lvl 197 mg/dL 70 - 99 04/[address] CHEM PANEL Potassium 4.2 meq/L 3.5 - 5.1 04/[address] CHEM PANEL Sodium Lvl 136 meq/L 135 - 145 04/[address] CHEM PANEL BUN 56 mg/dL 7 - 22 04/[address] CHEM PANEL Creatinine 1.07 mg/dL 0.50 - 04/30 [facility] 1[facility] CHEM PANEL Calcium Lvl 9.7 mg/dL 8.5 - 10.5 04/[address] CHEM PANEL AGAP 14.2 meq/L 10.0 - 04/30 [facility] [address] [place] [address] CHEM PANEL Magnesium 1.9 mg/dL 1.8 - 2.4 04/[address] CHEM PANEL Phosphorus 2.4 mg/dL 2.5 - 4.5 04/[address] HEMATOLOGY Smudge Moderate None Seen 04/30 [facility] [address] [place], [place] [address]ABN* Center (04/30/18 4:19 AM) HEMATOLOGY Lymphocytes 12.0 K/CMM 1.0 - 5.5 04/[address] HEMATOLOGY Basophils 0.5 % 0.0 - 1.0 04/[address] HEMATOLOGY Eosinophils 0.5 % 0.0 - 4.0 04/[address] HEMATOLOGY Segs-Bands # 1.0 K/CMM 1.5 - 8.1 04/[address] HEMATOLOGY Eosinophils 0.1 K/CMM 0.0 - 0.5 04/[address] HEMATOLOGY Monocytes # 0.1 K/CMM 0.0 - 0.8 07/ [facility] HEMATOLOGY Basophils # 0.1 K/CMM 0.0 - 0.2 04/30 [facility] HEMATOLOGY RBC Morph Normal 04/30 [facility] (04/30/18 4:19 AM) [place] HEMATOLOGY Segs 7.8 % 45.0 - 04/30 75.0 /2017 [facility] [facility] HEMATOLOGY Monocytes 1.1 % 2.0 - 12.0 04/30 [facility] HEMATOLOGY Lymphocytes 90.1 % 20.0 - 07 [place] 40.0 [facility] HEMATOLOGY Plt Morph Normal 04/30 [facility] (04/30/18 4:19 AM) [place] HEMATOLOGY Platelet 66 K/CMM 133 - 450 04/30 [facility] HEMATOLOGY RDW 18.1 % 11.5 - 04/30 14.5 [facility] HEMATOLOGY MPV 9.4 fL 7.4 - 10.4 04/30 [facility] HEMATOLOGY WBC 13.3 K/CMM 3.7 - 10.4 04/30 [facility] HEMATOLOGY Hgb 9.7 g/dL 12.0 - 04/30 16.0 [facility] HEMATOLOGY RBC 2.96 M/CMM 4.20 - 04/30 [place] 5.40 [facility] HEMATOLOGY Hct 28.7 % 36.0 - 04/30 48.0 [facility] HEMATOLOGY MCV 97.1 fL 80.0 - 04/30 98.0 [facility] HEMATOLOGY MCH 32.7 pg 27.0 - 04/30 31.0 [facility] HEMATOLOGY MCHC 33.7 g/dL 32.0 - 04/30 36.0 [facility] BLOOD BANK ABO/Rh O NEG 04/29 [facility] RESULTS [facility] BLOOD BANK Antibody Negative 04/29 [facility] RESULTS Scrn [facility] (04/29/18 10:19 AM) [place] BLOOD BANK RBC product Product available 04/29 [facility] RESULTS [facility] (04/29/18 9:21 AM) Center CHEM PANEL eGFR 48 04/29 Result Comment: The eGFR is calculated using the CKD-EPI formula. In most young, healthy individuals the eGFR will be >90 mL/ min/1.73m2. The eGFR declines with age. An eGFR of 60-89 may be normal in [facility] mL/min/1. some populations, particularly the elderly, for whom the CKD-EPI formula has not been extensively validated. Use of the eGFR is not recommended in the following populations: [address] Individuals with unstable creatinine concentrations, including [...] Lvl 9.8 mg/dL 8.5 - 10.5 04/29 [facility] CHEM PANEL BUN 57 mg/dL 7 - 04/29 [facility]2017 [facility] CHEM PANEL Sodium Lvl 138 meq/L 135 - 145 04/29 [facility]2017 [facility] CHEM PANEL Creatinine 1.09 mg/dL 0.50 - 04/29 [facility] 1.40 [facility] CHEM PANEL Glucose Lvl 145 mg/dL 70 - 99 04/29 [facility]2017 [facility] CHEM PANEL CO2 31 meq/L 24 - 32 04/29 [facility]2017 [facility] CHEM PANEL Chloride Lvl 95 meq/L 95 - 109 04/29 [facility]2017 [facility] CHEM PANEL Potassium 3.7 meq/L 3.5 - 5.1 04/29 [facility] CHEM PANEL AGAP 15.7 meq/L 10.0 - 04/29 [facility] 20.0 [facility] CHEM PANEL Phosphorus 3.0 mg/dL 2.5 - 4.5 04/29 [facility]2017 [facility] CHEM PANEL Magnesium 1.9 mg/dL 1.8 - 2.4 04/29 [facility] HEMATOLOGY Macrocyte 1+ None Seen 04/29 Medical *ABN* Center (04/29/18 1:53 AM) HEMATOLOGY Smudge See Note 1 None Seen 04/29 [facility] Comment: Medical (04/29/18 1:53 AM) [facility] HEMATOLOGY Lymphocytes 8.5 K/CMM 1.0 - 5.5 04/29 [facility] HEMATOLOGY Segs-Bands # 0.7 K/CMM 1.5 - 8.1 04/[address] [place] [address] HEMATOLOGY Eosinophils 0.2 K/CMM 0.0 - 0.5 04/29 [place] # /2017 [facility] HEMATOLOGY Monocytes # 0.0 K/CMM 0.0 - 0.8 04/[address] HEMATOLOGY Plt Morph Normal 04/[address] [place] [address] (04/29/18 1:53 AM) [place] HEMATOLOGY Atypical 0.0 % <=0.0 % 04/29 [facility] Lymphs /2017 [facility] HEMATOLOGY Eosinophils 2.0 % 0.0 - 4.0 04/29 [facility] [address] [place] [address] HEMATOLOGY Monocytes 0.0 % 2.0 - 12.0 04/29 [facility] [address] [place] [address] HEMATOLOGY Blasts 8.0 % <=0.0 % 04/[address] HEMATOLOGY Bands 1.0 % 0.0 - 11.0 04/[address] HEMATOLOGY Segs 6.0 % 45.0 - 04/29 [facility] 75.0 [facility] HEMATOLOGY Lymphocytes 83.0 % 20.0 - 07 [facility] 40.0 [facility] HEMATOLOGY MCHC 34.6 g/dL 32.0 - 07 [facility] 36.0 [facility] HEMATOLOGY MCV 101.0 fL 80.0 - 04/29 [facility] 98.0 [facility] HEMATOLOGY Hct 20.8 % 36.0 - 07 48.0 [facility] HEMATOLOGY MCH 35.0 pg 27.0 - 04/29 [facility] 31.0 [facility] HEMATOLOGY RDW 17.2 % 11.5 - 07 14.5 [facility] HEMATOLOGY MPV 9.8 fL 7.4 - 10.4 04/[address] [place] [address] HEMATOLOGY Platelet 64 K/CMM 133 - 450 04/[address] HEMATOLOGY Hgb 7.2 g/dL 12.0 - 04/29 [facility] 16.0 [facility] HEMATOLOGY WBC 10.2 K/CMM 3.7 - 10.4 04/[address] HEMATOLOGY RBC 2.06 M/CMM 4.20 - 07 [facility] 5.40 [facility] CHEM PANEL Total 6.8 g/dL 6.4 - 8.4 04/[address] CHEM PANEL Albumin Lvl 2.7 g/dL 3.5 - 5.0 04/[address] CHEM PANEL Bili Total 0.5 mg/dL 0.2 - 1.3 04/[address] CHEM PANEL Alk Phos 71 unit/L 39 - 136 04/[address] CHEM PANEL AST 16 unit/L 0 - 37 04/[address] CHEM PANEL ALT 11 unit/L 0 - 65 04/[address] CHEM PANEL A/G Ratio 0.7 0.7 - 1.6 04/[address] CHEM PANEL Globulin 4.1 g/dL 2.7 - 4.2 04/[address] CHEM PANEL B/C Ratio 46 6 - 25 04/[address] HEMATOLOGY Eosinophils 0.3 K/CMM 0.0 - 0.5 04/28 [facility] # [address] HEMATOLOGY Bands 1.0 % 0.0 - 11.0 04/[address] HEMATOLOGY Blasts 1.0 % <=0.0 % 04/[address] HEMATOLOGY Anisocyte 1+ None Seen 04/[address] *ABN* Center (04/28/18 2:32 AM) HEMATOLOGY Atypical 0.0 % <=0.0 % 04/[address] HEMATOLOGY Macrocyte 1+ None Seen 04/28 [address] [facility] (04/28/18 2:32 AM) CHEM PANEL B/C Ratio 41 6 - 25 04/[address] CHEM PANEL Globulin 4.2 g/dL 2.7 - 4.2 04/[address] CHEM PANEL A/G Ratio 0.7 0.7 - 1.6 04/[address] CHEM PANEL Bili Total 0.5 mg/dL 0.2 - 1.3 04/[address] CHEM PANEL Albumin Lvl 2.9 g/dL 3.5 - 5.0 04/[address] CHEM PANEL Total 7.1 g/dL 6.4 - 8.4 04/[address] CHEM PANEL Alk Phos 79 unit/L 39 - 136 04/[address] CHEM PANEL ALT 13 unit/L 0 - 65 04/[address] CHEM PANEL AST 17 unit/L 0 - 37 04/[address] HEMATOLOGY Macrocyte 1+ None Seen 04/27 [facility] [address] [place] [address] *ABN* [place] (04/27/18 3:21 AM) HEMATOLOGY Atypical 2.0 % <=0.0 % 04/27 [facility] Lymphs [facility] HEMATOLOGY Blasts 1.0 % <=0.0 % 04/[address] HEMATOLOGY Anisocyte 1+ None Seen 04/27 [facility] *ABN* [place] (04/27/18 3:21 AM) HEMATOLOGY Bands 0.0 % 0.0 - 11.0 04/[address] ANEMIA Vitamin B12 831 pg/mL 254 - 1320 04/27 [facility] [place] Lvl [facility] ANEMIA Iron 53 ug/dl 30 - 160 04/[address] ANEMIA % [place] 25 % 12 - 57 04/[address] ANEMIA UIBC 158 ug/dl 110 - 370 04/[address] ANEMIA TIBC 211 ug/dl 228 - 428 04/[address] ANEMIA Folate Lvl 17.0 ng/mL >=3.0 04/27 [facility] [place] ng/mL [facility] ANEMIA Ferritin Lvl 362 ng/mL 5 - 204 04/[address] Chest 1view Chest 1view EXAM: XR CHEST 1 VIEW 04/26 - [facility] DX DX - Medical This report was dictated by a Cashier Tube Room/Fellow. I have personally reviewed the images as [...] AND UA <=1.0 0.1 - 1.0 04/26 [facility] Urobilinogen mg/dL /[address] [place] [address] URINE AND UA Protein Negative Negative 04/26 [facility] mg/dL mg/dL /[address] [place] [address] URINE AND UA Glucose Negative Negative 04/26 [facility] mg/dL mg/dL /[address] [place] [address] URINE AND UA Spec Grav 1.008 <=1.030 04/[address] URINE AND UA pH 5.5 5.0 - 8.0 04/[address] URINE AND UA Turbidity Clear Clear 04/[address] (04/26/18 3:19 PM) [place] URINE AND UA Color Yellow Yellow 04/[address] *NA* [place] (04/26/18 3:19 PM) URINE AND UA Nitrite Negative Negative 04/[address] (04/26/18 3:19 PM) [place] URINE AND UA Leuk Est Negative Negative 04/[address] (04/26/18 3:19 PM) [place] URINE AND UA Bili Negative Negative 04/[address] *NA* [place] (04/26/18 3:19 PM) URINE AND UA Blood Negative Negative 04/[address] (04/26/18 3:19 PM) [place] URINE AND UA Ketones Negative Negative 04/26 [facility] mg/dL mg/dL /[address] [place] [address] URINE AND UA Sq Epi None Seen 04/[address] URINE AND UA Mucus Few /LPF None Seen 04/26 [facility] STOOL /LPF /[address] [place] [address] URINE AND UA Hyal Cast 11 /LPF 0 - 2 04/[address] URINE AND UA WBC null 0 - 5 04/[address] URINE AND UA RBC null 0 - 2 04/[address] CARDIAC Total CK 9 unit/L 12 - 191 04/26 [facility] ENZYMES /2018 [facility] CARDIAC Troponin-T null 0.000 - 04/26 [place] ENZYMES 0.100 /2017 [facility] CARDIAC Troponin-I null 0.00 - 04/26 [place] ENZYMES 0.40 /2017 [facility] CARDIAC Total CK 13 unit/L 12 - 191 04/26 [facility] ENZYMES /2018 [facility] CARDIAC Troponin-T null 0.000 - 04/26 [place] ENZYMES 0.100 /2017 [facility] CARDIAC Troponin-I null 0.00 - 04/26 [place] ENZYMES 0.40 /2017 [facility] CHEM PANEL B/C Ratio 37 6 - 25 04/[address] CHEM PANEL AST 11 unit/L 0 - 37 04/[address] CHEM PANEL ALT 9 unit/L 0 - 65 04/[address] CHEM PANEL Total 7.1 g/dL 6.4 - 8.4 04/26 [facility] Protein [facility] CHEM PANEL Albumin Lvl 2.9 g/dL 3.5 - 5.0 04/[address] CHEM PANEL A/G Ratio 0.7 0.7 - 1.6 04/[address] CHEM PANEL Globulin 4.2 g/dL 2.7 - 4.2 04/[address] CHEM PANEL Bili Total 0.9 mg/dL 0.2 - 1.3 04/[address] CHEM PANEL Alk Phos 72 unit/L 39 - 136 04/[address] HEMATOLOGY Myelocytes 1.0 % <=0.0 % 04/26 [facility] [address] [place] [address] CARDIAC Troponin-I null 0.00 - 04/26 [place] ENZYMES 0.40 [facility] CARDIAC Total CK 18 unit/L - 04/26 [facility] ENZYMES [address] [place] [address] CARDIAC BNP 710 pg/mL <=100 04/26 [facility] ENZYMES pg/mL /2017 [facility] CHEM PANEL Lipase Lvl 96 unit/L 73 - 393 04/[address] CHEM PANEL Amylase Lvl 49 unit/L 25 - 115 04/[address] HEMATOLOGY INR 1.10 0.85 - 04/26 [place] 1.17 [facility] HEMATOLOGY PTT 36.5 s 22.9 - 04/26 [place] 35.8 /2017 [facility] HEMATOLOGY PT 14.2 s 12.0 - 07/01 [facility] 14.7 [facility] Center HEMATOLOGY Anisocyte 1+ None Seen 04/26 Medical *ABN* Center (04/25/18 11:02 PM) Abdomen AP Abdomen AP EXAM: XR ABDOMEN 1 VIEW 04/25 - [facility] DX [facility] DATE: 04/25/2018 11:05 PM CDT [...] EXAM: XR CHEST 2 VIEWS 04/25 - [facility] views DX views [facility] DATE: 04/25/2018 8:26 PM CDT Read by: [...] semiupright exam. PET CT PET CT EXAM: AR PET CT Skull Base to Mid Thigh 04/02 - [facility] Lymphoma Lymphoma /2018 - Julian restaging restaging This report was dictated by a Cashier Tube Room/ Fellow. I have personally reviewed the images [...] Magnesium 2.4 mg/dL 1.8 - 2.4 02/06 [facility] /2017 [facility] CHEM PANEL eGFR 45 02/06 Result Comment: The eGFR is calculated using the CKD-EPI formula. In most young, healthy individuals the eGFR will be >90 mL/ min/1.73m2. The eGFR declines with age. An eGFR of 60-89 may be normal in [facility] mL/min/1. some populations, particularly the elderly, for whom the CKD-EPI formula has not been extensively validated. Use of the eGFR is not recommended in the following populations: [address] Individuals with unstable creatinine concentrations, including [...] PANEL Creatinine 1.16 mg/dL 0.50 - 02/06 [facility] 1.40 [facility] CHEM PANEL Glucose Lvl 63 mg/dL 70 - 99 02/[address] CHEM PANEL BUN 50 mg/dL 7 - 22 02/[address] CHEM PANEL Sodium Lvl 139 meq/L 135 - 145 02/[address] CHEM PANEL Potassium 3.9 meq/L 3.5 - 5.1 02/06 [facility] CHEM PANEL Chloride Lvl 104 meq/L 95 - 109 02/[address] CHEM PANEL CO2 29 meq/L 24 - 32 02/[address] CHEM PANEL AGAP 9.9 meq/L 10.0 - 02/06 [facility] 20.0 [facility] CHEM PANEL Calcium Lvl 8.6 mg/dL 8.5 - 10.5 02/[address] CHEM PANEL Phosphorus 2.6 mg/dL 2.5 - 4.5 02/[address] CHEM PANEL Uric Acid 0.7 mg/dL 2.5 - 7.0 02/[address] HEMATOLOGY Eosinophils 0.2 % 0.0 - 4.0 02/[address] HEMATOLOGY Lymphocytes 91.1 % 20.0 - 02/06 [facility] 40.0 [facility] HEMATOLOGY Monocytes 0.8 % 2.0 - 12.0 02/[address] HEMATOLOGY Segs 7.8 % 45.0 - 02/06 [facility] 75.0 [facility] HEMATOLOGY Smudge Moderate None Seen 02/06 [facility] [address] [place], [place] [address]ABN* [place] (02/06/18 3:30 AM) HEMATOLOGY Macrocyte 1+ None Seen 02/06 [facility] [address] [place] [address]* [place] (02/06/18 3:30 AM) HEMATOLOGY Segs-Bands # 1.6 K/CMM 1.5 - 8.1 02/[address] HEMATOLOGY Lymphocytes 18.8 K/CMM 1.0 - 5.5 02/06 [facility]2017 [facility] HEMATOLOGY Basophils 0.1 % 0.0 - 1.0 02/[address] HEMATOLOGY Monocytes # 0.2 K/CMM 0.0 - 0.8 02/[address] HEMATOLOGY Anisocyte 1+ None Seen 02/06 [facility] [address] [place] [address]* [place] (02/06/18 3:30 AM) HEMATOLOGY Platelet 57 K/CMM 133 - 450 02/06 [facility] HEMATOLOGY WBC 20.6 K/CMM 3.7 - 10.4 02/06 [facility] HEMATOLOGY RBC 2.48 M/CMM 4.20 - 02/06 [facility] 5.40 /2017 [facility] HEMATOLOGY Hct 25.2 % 36.0 - 02/06 48.0 [facility] HEMATOLOGY Hgb 8.0 g/dL 12.0 - 02/06 16.0 [facility] HEMATOLOGY MPV 9.5 fL 7.4 - 10.4 02/06 [facility] HEMATOLOGY MCHC 31.7 g/dL 32.0 - 02/06 36.0 [facility] HEMATOLOGY MCH 32.3 pg 27.0 - 02/06 [facility] 31.0 [facility] HEMATOLOGY MCV 101.8 fL 80.0 - 02/06 [facility] 98.0 [facility] HEMATOLOGY RDW 22.4 % 11.5 - 02/06 [facility] 14.5 [facility] HEMATOLOGY INR 1.03 0.85 - 02/06 [place] 1.17 [facility] HEMATOLOGY PTT 32.2 s 22.9 - 02/06 [place] 35.8 [facility] HEMATOLOGY PT 13.5 s 12.0 - 02/06 [facility] 14.7 [facility] CHEM PANEL Magnesium 2.1 mg/dL 1.8 - 2.4 02/05 [facility] Lvl [facility] CHEM PANEL Uric Acid 0.3 mg/dL 2.5 - 7.0 02/05 [facility] CHEM PANEL eGFR 42 02/05 Result Comment: The eGFR is calculated using the CKD-EPI formula. In most young, healthy individuals the eGFR will be >90 mL/ min/1.73m2. The eGFR declines with age. An eGFR of 60-89 may be normal in [facility] mL/min/1. some populations, particularly the elderly, for whom the CKD-EPI formula has not been extensively validated. Use of the eGFR is not recommended in the following populations: [place] [address] Center Individuals with unstable creatinine concentrations, including [...] Lvl 133 meq/L 135 - 145 02/05 [facility] CHEM PANEL Creatinine 1.23 mg/dL 0.50 - 02/05 [facility] Lvl 1.40 [facility] CHEM PANEL Glucose Lvl 424 mg/dL 70 - 99 02/05 Result Comment: [facility] Critical Center Result(s) called to Shannon Murdock at 02/05/2018 06:18 by ET. Read back OK. CHEM PANEL BUN 54 mg/dL 7 - 22 02/05 [facility]2017 [facility] CHEM PANEL Calcium Lvl 8.9 mg/dL 8.5 - 10.5 02/05 [facility]2017 [facility] CHEM PANEL AGAP 13.9 meq/L 10.0 - 02/05 [facility] 20.0 [facility] CHEM PANEL CO2 27 meq/L 24 - 32 02/05 2017 [facility] CHEM PANEL Chloride Lvl 97 meq/L 95 - 109 02/05 2017 [facility] CHEM PANEL Potassium 4.9 meq/L 3.5 - 5.1 02/05 [facility] CHEM PANEL Phosphorus 2.7 mg/dL 2.5 - 4.5 02/05 2017 [facility] HEMATOLOGY Hgb 8.6 g/dL 12.0 - 02/05 16.0 [facility] HEMATOLOGY RBC 2.64 M/CMM 4.20 - 02/05 5.40 [facility] HEMATOLOGY WBC 19.7 K/CMM 3.7 - 10.4 02/05 2017 [facility] HEMATOLOGY Hct 26.9 % 36.0 - 02/05 [facility] 48.0 [facility] HEMATOLOGY MCV 101.9 fL 80.0 - 02/05 98.0 [facility] HEMATOLOGY MCH 32.5 pg 27.0 - 02/05 31.0 [facility] HEMATOLOGY Platelet 59 K/CMM 133 - 450 02/05 [facility]2017 [facility] HEMATOLOGY RDW 22.7 % 11.5 - 02/05 14.5 [facility] HEMATOLOGY MCHC 31.9 g/dL 32.0 - 02/05 [facility] [place] 36.0 [facility] HEMATOLOGY MPV 9.9 fL 7.4 - 10.4 02/05 [facility] HEMATOLOGY PTT 33.8 s 22.9 - 02/05 [facility] 35.8 /2017 [facility] HEMATOLOGY PT 14.1 s 12.0 - 02/05 [facility] 14.7 [facility] HEMATOLOGY INR 1.09 0.85 - 02/05 [facility] 1.17 [facility] HEMATOLOGY Smudge Moderate None Seen 02/05 [facility] (02/05/18 5:02 AM) HEMATOLOGY Segs-Bands # 1.7 K/CMM 1.5 - 8.1 02/05 [facility] HEMATOLOGY Lymphocytes 90.0 % 20.0 - 02/05 [facility] 40.0 [facility] HEMATOLOGY Plt Morph Normal 02/05 [facility] (02/05/18 5:02 AM) [place] HEMATOLOGY Monocytes 1.0 % 2.0 - 12.0 02/[address] HEMATOLOGY Segs 9.0 % 45.0 - 02/05 [facility] 75.0 [facility] HEMATOLOGY Basophils 0.0 % 0.0 - 1.0 02/[address] HEMATOLOGY Lymphocytes 17.9 K/CMM 1.0 - 5.5 02/05 [facility] HEMATOLOGY Macrocyte 1+ None Seen 02/[address] [place] [address] (02/05/18 5:02 AM) HEMATOLOGY Monocytes # 0.1 K/CMM 0.0 - 0.8 02/[address] HEMATOLOGY Anisocyte 1+ None Seen 02/05 [facility] [address] [place] [address] (02/05/18 5:02 AM) CHEM PANEL Uric Acid 4.0 mg/dL 2.5 - 7.0 02/[address] CHEM PANEL Phosphorus 2.3 mg/dL 2.5 - 4.5 02/[address] CHEM PANEL eGFR 58 02/04 Result Comment: The eGFR is calculated using the CKD-EPI formula. In most young, healthy individuals the eGFR will be >90 mL/ min/1.73m2. The eGFR declines with age. An eGFR of 60-89 may be normal in [facility] mL/min/1. some populations, particularly the elderly, for whom the CKD-EPI formula has not been extensively validated. Use of the eGFR is not recommended in the following populations: [address] Individuals with unstable creatinine concentrations, including [...] Lvl 8.8 mg/dL 8.5 - 10.5 02/04 [facility] CHEM PANEL Glucose Lvl 110 mg/dL 70 - 99 02/04 [facility]2017 [facility] CHEM PANEL Sodium Lvl 135 meq/L 135 - 145 02/[address] CHEM PANEL Potassium 4.2 meq/L 3.5 - 5.1 02/04 [facility] CHEM PANEL Chloride Lvl 96 meq/L 95 - 109 02/[address] CHEM PANEL CO2 29 meq/L 24 - 32 02/[address] CHEM PANEL AGAP 14.2 meq/L 10.0 - 02/04 20.0 [facility] CHEM PANEL BUN 54 mg/dL 7 - 22 02/[address] CHEM PANEL Creatinine 0.94 mg/dL 0.50 - 02/04 [facility] CHEM PANEL Uric Acid 4.2 mg/dL 2.5 - 7.0 02/[address] CHEM PANEL Magnesium 2.1 mg/dL 1.8 - 2.4 02/04 [facility] HEMATOLOGY PT 13.8 s 12.0 - 02/04 [place] 14.7 [facility] HEMATOLOGY PTT 34.7 s 22.9 - 02/04 [place] 35.8 [facility] HEMATOLOGY INR 1.06 0.85 - 02/04 1.17 [facility] HEMATOLOGY RBC 2.80 M/CMM 4.20 - 02/04 [place] 5.40 [facility] HEMATOLOGY Hgb 9.1 g/dL 12.0 - 02/04 [place] 16.0 [facility] HEMATOLOGY Hct 27.6 % 36.0 - 02/04 [facility] [place] 48.0 [facility] HEMATOLOGY WBC 28.3 K/CMM 3.7 - 10.4 02/04 [facility] HEMATOLOGY MCHC 32.8 g/dL 32.0 - 02/04 36.0 [facility] HEMATOLOGY RDW 20.8 % 11.5 - 02/04 [facility] 14.5 [facility] HEMATOLOGY Platelet 69 K/CMM 133 - 450 02/04 2017 [facility] HEMATOLOGY MCV 98.5 fL 80.0 - 02/04 [facility] 98.0 [facility] HEMATOLOGY MCH 32.3 pg 27.0 - 02/04 [facility] 31.0 [facility] HEMATOLOGY MPV 9.7 fL 7.4 - 10.4 02/[address] HEMATOLOGY Eosinophils 0.2 % 0.0 - 4.0 02/[address] HEMATOLOGY Basophils 0.1 % 0.0 - 1.0 02/[address] HEMATOLOGY Segs-Bands # 1.8 K/CMM 1.5 - 8.1 02/[address] HEMATOLOGY Monocytes # 0.3 K/CMM 0.0 - 0.8 02/04 [facility] [address] [place] [address] HEMATOLOGY Eosinophils 0.1 K/CMM 0.0 - 0.5 02/04 [facility] HEMATOLOGY Lymphocytes 26.1 K/CMM 1.0 - 5.5 02/[address] HEMATOLOGY Lymphocytes 92.5 % 20.0 - 02/04 [facility] 40.0 [facility] HEMATOLOGY Monocytes 0.9 % 2.0 - 12.0 02/[address] HEMATOLOGY Segs 6.3 % 45.0 - 02/04 [facility] 75.0 [facility] HEMATOLOGY Anisocyte 1+ None Seen 02/03 [facility] *ABN* [place] (02/03/18 4:54 AM) HEMATOLOGY Eosinophils 0.1 % 0.0 - 4.0 02/[address] HEMATOLOGY Macrocyte 1+ None Seen 02/03 [facility] *ABN* [place] (02/03/18 4:54 AM) HEMATOLOGY Plt Morph Normal 02/03 [facility] (02/03/18 4:54 AM) Center PARATHYROID Ca Ion WB 1.17 1.05 - 02/03 [facility] PROFILE mMol/L 1. [facility] PARATHYROID Ca Norm WB 1.18 1.05 - 02/03 [facility] PROFILE mMol/L 1. [facility] Abdomen Abdomen EXAM: VIR 02/02 - [facility] biopsy biopsy /2017 - Medical needle w [...] :07 FINAL REPORT FACULTY: Freya Reid MD RESIDENT/FELLOW/WHITE [employer]GAR BOILER: None SUPERVISION: Level 1 Direct supervision: The [...] procedure. HEMATOLOGY Hypochrom 1+ None Seen 02/02 [facility] (02/02/18 3:32 AM) Center HEMATOLOGY Polychrom Moderate None Seen 02/02 [facility] *ABN* [place] (02/02/18 3:32 AM) HEMATOLOGY Smudge Moderate None Seen 02/[address] [place] (02/02/18 3:32 AM) CHEM PANEL Albumin Lvl 2.7 g/dL 3.5 - 5.0 02/[address] CHEM PANEL Globulin 3.7 g/dL 2.7 - 4.2 02/[address] CHEM PANEL ALT 17 unit/L 0 - 65 02/[address] CHEM PANEL A/G Ratio 0.7 0.7 - 1.6 02/[address] CHEM PANEL Alk Phos 66 unit/L 39 - 136 02/[address] CHEM PANEL AST 21 unit/L 0 - 37 02/[address] CHEM PANEL Bili Total 0.5 mg/dL 0.2 - 1.3 02/[address] CHEM PANEL Total 6.4 g/dL 6.4 - 8.4 02/[address] CHEM PANEL B/C Ratio 75 6 - 25 02/[address] HEMATOLOGY Atypical 0.0 % <=0.0 % 02/[address] HEMATOLOGY Microcyte 1+ None Seen 02/01 [address] [place] (02/01/18 3:32 AM) HEMATOLOGY Blasts 1.0 % <=0.0 % 02/[address] HEMATOLOGY Bands 0.0 % 0.0 - 11.0 02/[address] HEMATOLOG[address] Tot Cell Ct 200 01/[address] HEMATOLOGY Bands 0.0 % 0.0 - 11.0 01/[address] HEMATOLOGY Plt Morph Normal 01/[address] (01/29/18 5:39 AM) [place] HEMATOLOGY RBC Morph Normal 01/[address] (01/29/18 5:39 AM) [place] HEMATOLOGY Atypical 0.0 % <=0.0 % 01/[address] Chest 1view Chest 1view EXAM: XR CHEST 1 VIEW 01/29 - [facility] DX DX /2017 - [facility] DATE: 01/29/2018 Read by: Jackie Marcum MD Dictated Date/time: 01/29/18 10:52 Electronically Signed by: Jackie Marcum MD 01/29/18 10:53 FINAL REPORT INDICATION: - dyspnea . Comparison is made with yesterday FINDINGS: Cardiomediastinal silhouette and life-support lines are unchanged. There is interstitial pulmonary edema. IMPRESSION: No significant interval change when compared to prior radiograph. CHEM PANEL ALT 7 unit/L 0 - 65 01/[address] CHEM PANEL AST 21 unit/L 0 - 37 01/[address] CHEM PANEL Globulin 4.2 g/dL 2.7 - 4.2 01/[address] CHEM PANEL B/C Ratio 31 6 - 25 01/[address] CHEM PANEL A/G Ratio 0.6 0.7 - 1.6 01/[address] CHEM PANEL Bili Total 0.7 mg/dL 0.2 - 1.3 01/[address] CHEM PANEL Total 6.9 g/dL 6.4 - 8.4 01/[address] CHEM PANEL Albumin Lvl 2.7 g/dL 3.5 - 5.0 01/[address] CHEM PANEL Alk Phos 67 unit/L 39 - 136 01/[address] URINE AND UA Ketones Negative Negative 01/28 [facility] STOOL mg/dL mg/dL /[address] [place] [address] CHEM PANEL B/C Ratio 33 6 - 25 01/[address] CHEM PANEL Total 7.2 g/dL 6.4 - 8.4 01/[address] CHEM PANEL AST 23 unit/L 0 - 37 01/[address] CHEM PANEL Alk Phos 75 unit/L 39 - 136 01/[address] CHEM PANEL Bili Total 0.8 mg/dL 0.2 - 1.3 01/[address] CHEM PANEL Albumin Lvl 2.8 g/dL 3.5 - 5.0 01/[address] CHEM PANEL Globulin 4.4 g/dL 2.7 - 4.2 01/[address] CHEM PANEL A/G Ratio 0.6 0.7 - 1.6 01/[address] CHEM PANEL ALT 10 unit/L 0 - 65 01/[address] ANEMIA Ferritin Lvl 180 ng/mL 5 - 204 01/28 [facility] [place] [address] [place] [address] ANEMIA Vitamin B12 239 pg/mL 254 - 1320 01/28 [facility] [address] [place] [address] ANEMIA % Satur Fe 16 % 12 - 57 01/[address] ANEMIA UIBC 264 ug/dl 110 - 370 01/[address] ANEMIA Iron 50 ug/dl 30 - 160 01/28 [facility] [place] [address] [place] [address] ANEMIA TIBC 314 ug/dl 228 - 428 01/28 [facility] [place] [address] [place] [address] ANEMIA RBC Folate 1501 ng/mL 280 - 791 01/28 [facility] [place] [address] [place] [address] ANEMIA Folate Lvl 16.0 ng/mL >=3.0 01/28 [facility] [place] ng/mL [facility] CHEM PANEL Ketone 0.24 <=0.27 01/28 [facility] Quantitative mmol/L mmol/L [facility] CHEM PANEL Lactic Acid 1.3 mMol/L 0.5 - 2.2 01/28 [facility] HEMATOLOGY Retic Auto 5.0 % 0.5 - 1.5 01/[address] HEMATOLOG[address] Tot Cell Ct 100 01/[address] HEMATOLOGY Atypical 2.0 % <=0.0 % 01/28 [facility] Lymphs [address] [place] [address] HEMATOLOGY Bands 0.0 % 0.0 - 11.0 01/[address] Chest 1view Chest 1view EXAM: XR CHEST 1 VIEW 01/28 - [facility] DX DX - [facility] DATE: 01/28/2018 8:48 AM CDT Read by: [...] stable. CARDIAC BNP 1002 pg/mL <=100 01/27 [facility] ENZYMES pg/mL [facility] IMMUNOLOGY Hep Bs Ag Negative Negative 01/27 [facility] (01/27/18 2:02 PM) IMMUNOLOGY Hep B Core Negative Negative 01/27 [facility]* [place] (01/27/18 2:02 PM) IMMUNOLOGY Hep C Ab Negative 01/27 [facility]* [place] (01/27/18 2:02 PM) IMMUNOLOGY Hep A IgM Negative Negative 01/27 [facility]* [place] (01/27/18 2:02 PM) HEMATOLOGY Basophils # 0.1 K/CMM 0.0 - 0.2 01/27 [facility] Chest 1 v Chest 1 v EXAM: XR CHEST 1 VIEW 01/27 - [facility] - Medical Placement Placement DX This report was dictated by a Cashier Tube Room/Fellow. I have personally reviewed the images as [...] BLOOD BANK RBC product Modification Required 01/27 [facility] RESULTS /2017 Medical (01/26/18 8:26 PM) Center BLOOD BANK ABO/Rh O NEG 01/26 [facility] RESULTS /2017 [facility] BLOOD BANK Antibody Negative 01/26 [facility] RESULTS [facility] (01/26/18 4:49 PM) [place] CARDIAC Troponin-I null 0.00 - 01/26 [facility] ENZYMES 0. [facility] HEMATOLOGY Blasts 2.0 % <=0.0 % 01/26 Result Comment: Medical Patient has Center history of CLL. HEMATOLOGY Tot Cell Ct 200 01/26 [place] /2017 [facility] Center Chest 2 Chest 2 EXAM: XR CHEST 2 VIEWS 01/26 - [facility] views DX views DX - [facility] This report was dictated by a Cashier Tube Room/Fellow. I have personally reviewed the images as [...] THIGH: 01/26/2018 4:41 PM CDT 01/21 - OPID Tumor imaging-skul /2017 - [facility]INICAL INDICATION: - liver cancer initial [...] involvement. HEMATOLOGY Macrocyte 1+ None Seen 01/05 [facility] *ABN* [place] (01/05/18 12:54 PM) HEMATOLOGY Anisocyte 1+ None Seen 01/05 [facility] *ABN* [place] (01/05/18 12:54 PM) HEMATOLOGY Smudge Moderate None Seen 01/05 [facility] [place] (01/05/18 12:54 PM) HEMATOLOGY Lymphocytes 24.7 K/CMM 1.0 - 5.5 01/05 [facility] HEMATOLOGY Segs-Bands # 1.3 K/CMM 1.5 - 8.1 01/05 [facility] [place] /2018 [facility] HEMATOLOGY Segs 5.1 % 45.0 - 01/05 [place] 75.0 [facility] HEMATOLOGY Basophils # 0.1 K/CMM 0.0 - 0.2 01/05 [facility] HEMATOLOGY Eosinophils 0.1 K/CMM 0.0 - 0.5 01/05 [facility] # /2017 [facility] HEMATOLOGY Monocytes # 0.2 K/CMM 0.0 - 0.8 01/05 [facility] HEMATOLOGY Basophils 0.2 % 0.0 - 1.0 01/05 [facility] HEMATOLOGY Eosinophils 0.2 % 0.0 - 4.0 01/[address] HEMATOLOGY Monocytes 0.7 % 2.0 - 12.0 01/05 [facility]2017 [facility] HEMATOLOGY Lymphocytes 93.8 % 20.0 - 01/05 [facility] 40.0 [facility] HEMATOLOGY WBC 26.4 K/CMM 3.7 - 10.4 01/05 [facility]2017 [facility] HEMATOLOGY MPV 10.3 fL 7.4 - 10.4 01/05 [facility] HEMATOLOGY Platelet 68 K/CMM 133 - 450 01/05 [facility] [address] [place] [address] HEMATOLOGY RDW 20.4 % 11.5 - 03 [facility] 14.5 [facility] HEMATOLOGY MCHC 32.0 g/dL 32.0 - 01/05 [facility] 36.0 2018 [facility] HEMATOLOGY MCH 32.5 pg 27.0 - 01/05 [facility] 31.0 [facility] HEMATOLOGY RBC 2.37 M/CMM 4.20 - 01/05 5.40 [facility] HEMATOLOGY MCV 101.3 fL 80.0 - 01/05 [facility] 98.0 2018 [facility] HEMATOLOGY Hct 24.0 % 36.0 - 03 [facility] 48.0 2018 [facility] HEMATOLOGY Hgb 7.7 g/dL 12.0 - 03 [facility] 16.0 [facility] CHEM PANEL Magnesium 1.8 mg/dL 1.8 - 2.4 01/05 Result [facility] Lvl /2018 Comment: [facility] Center Slightly Hemolyzed. CHEM PANEL Phosphorus 3.4 mg/dL 2.5 - 4.5 01/05 [facility] /2017 [facility] CHEM PANEL Albumin Lvl 2.7 g/dL 3.5 - 5.0 01/[address] CHEM PANEL Bili Total 0.4 mg/dL 0.2 - 1.3 01/[address] CHEM PANEL Total 7.4 g/dL 6.4 - 8.4 01/[address] CHEM PANEL AST 21 unit/L 0 - 37 01/[address] CHEM PANEL ALT 10 unit/L 0 - 65 01/[address] CHEM PANEL Alk Phos 70 unit/L 39 - 136 01/[address] CHEM PANEL Globulin 4.7 g/dL 2.7 - 4.2 01/[address] CHEM PANEL A/G Ratio 0.6 0.7 - 1.6 01/[address] CHEM PANEL Bili Direct 0.1 mg/dL 0.0 - 0.3 01/[address] CHEM PANEL Bili 0.3 mg/dL 0.0 - 1.0 01/[address] ELECTROLYTE AGAP 17.3 meq/L 10.0 - 01/05 [facility] 20.0 [facility] ELECTROLYTE CO2 22 meq/L 24 - 32 01/[address] ELECTROLYTE Calcium Lvl 8.8 mg/dL 8.5 - 10.5 01/[address] ELECTROLYTE Potassium 4.3 meq/L 3.5 - 5.1 01/05 [facility] [address] [place] [address] ELECTROLYTE Chloride Lvl 98 meq/L 95 - 109 01/[address] ELECTROLYTE Sodium Lvl 133 meq/L 135 - 145 01/[address] ELECTROLYTE eGFR 43 01/05 Result Comment: The eGFR is calculated using the CKD-EPI formula. In most young, healthy individuals the eGFR will be >90 mL/ min/1.73m2. The eGFR declines with age. An eGFR of 60-89 may be normal in [facility] mL/min/1.7 /2017 some populations, particularly the elderly, for whom the CKD-EPI formula has not been extensively validated. Use of the eGFR is not recommended in the following populations: [address] Individuals with unstable creatinine concentrations, including [...] BMI. ELECTROLYTE BUN 45 mg/dL 7 - 01/05 [facility] ELECTROLYTE Creatinine 1.19 mg/dL 0.50 - 01/05 [facility] S Lvl 1.40 [facility] ELECTROLYTE Glucose Lvl 120 mg/dL 70 - 99 01/05 [facility]2017 [facility] CHEM PANEL eGFR 41 01/04 Result Comment: The eGFR is calculated using the CKD-EPI formula. In most young, healthy individuals the eGFR will be >90 mL/ min/1.73m2. The eGFR declines with age. An eGFR of 60-89 may be normal in [facility] mL/min/1. some populations, particularly the elderly, for whom the CKD-EPI formula has not been extensively validated. Use of the eGFR is not recommended in the following populations: [address] Individuals with unstable creatinine concentrations, including [...] CO2 23 meq/L 24 - 32 01/04 [facility] [address] [place] [address] CHEM PANEL Chloride Lvl 96 meq/L 95 - 109 01/04 [facility]2017 [facility] CHEM PANEL AGAP 16.3 meq/L 10.0 - 01/04 [facility] 20.0 [facility] CHEM PANEL Potassium 4.3 meq/L 3.5 - 5.1 01/04 [facility] CHEM PANEL Sodium Lvl 131 meq/L 135 - 145 01/[address] CHEM PANEL Creatinine 1.24 mg/dL 0.50 - 01/04 [facility] Lvl 1.40 [facility] CHEM PANEL Calcium Lvl 8.8 mg/dL 8.5 - 10.5 01/[address] CHEM PANEL BUN 47 mg/dL 7 - 01/[address] CHEM PANEL Glucose Lvl 167 mg/dL 70 - 99 01/[address] CHEM PANEL Phosphorus 3.6 mg/dL 2.5 - 4.5 01/[address] CHEM PANEL Magnesium 2.0 mg/dL 1.8 - 2.4 01/03 [facility] CHEM PANEL eGFR 45 01/03 Result Comment: The eGFR is calculated using the CKD-EPI formula. In most young, healthy individuals the eGFR will be >90 mL/ min/1.73m2. The eGFR declines with age. An eGFR of 60-89 may be normal in [facility] mL/min/1.7 some populations, particularly the elderly, for whom the CKD-EPI formula has not been extensively validated. Use of the eGFR is not recommended in the following populations: [address] Individuals with unstable creatinine concentrations, including [...] Lvl 135 meq/L 135 - 145 01/[address] CHEM PANEL Potassium 3.5 meq/L 3.5 - 5.1 01/03 [facility] CHEM PANEL BUN 39 mg/dL 7 - 22 01/[address] CHEM PANEL Creatinine 1.15 mg/dL 0.50 - 01/03 [facility] 1.40 [facility] CHEM PANEL Calcium Lvl 9.0 mg/dL 8.5 - 10.5 01/[address] CHEM PANEL Chloride Lvl 100 meq/L 95 - 109 01/[address] CHEM PANEL CO2 25 meq/L 24 - 32 01/[address] CHEM PANEL Glucose Lvl 164 mg/dL 70 - 99 01/[address] CHEM PANEL AGAP 13.5 meq/L 10.0 - 01/03 [facility] 20.0 [facility] HEMATOLOGY Platelet 68 K/CMM 133 - 450 01/[address] HEMATOLOGY MPV 9.4 fL 7.4 - 10.4 01/[address] HEMATOLOGY MCV 98.7 fL 80.0 - 03/10 [facility] 98.0 /2018 [facility] HEMATOLOGY MCH 32.4 pg 27.0 - 10 31.0 [facility] HEMATOLOGY MCHC 32.8 g/dL 32.0 - 10 [facility] 36.0 2018 [facility] HEMATOLOGY RDW 20.6 % 11.5 - 01/03 [facility] 14.5 /2017 [facility] HEMATOLOGY WBC 27.7 K/CMM 3.7 - 10.4 01/03 [facility] HEMATOLOGY RBC 2.25 M/CMM 4.20 - 10 [facility] 5.40 /2018 [facility] HEMATOLOGY Hct 22.2 % 36.0 - 10 [facility] 48.0 [facility] HEMATOLOGY Hgb 7.3 g/dL 12.0 - 01/03 [facility] 16.0 [facility] HEMATOLOGY Segs 7.1 % 45.0 - 01/03 [facility] 75.0 /2017 [facility] HEMATOLOGY Lymphocytes 91.1 % 20.0 - 01/03 [facility] 40.0 2018 [facility] HEMATOLOGY Monocytes 1.3 % 2.0 - 12.0 01/[address] [place] [address] HEMATOLOGY Segs-Bands # 2.0 K/CMM 1.5 - 8.1 01/[address] HEMATOLOGY Eosinophils 0.2 % 0.0 - 4.0 01/[address] [place] [address] HEMATOLOGY Basophils 0.3 % 0.0 - 1.0 01/[address] HEMATOLOGY Basophils # 0.1 K/CMM 0.0 - 0.2 01/[address] [place] [address] HEMATOLOGY Lymphocytes 25.2 K/CMM 1.0 - 5.5 01/03 [facility] # /2017 [facility] HEMATOLOGY Monocytes # 0.4 K/CMM 0.0 - 0.8 01/[address] [place] [address] HEMATOLOGY Smudge Moderate None Seen 01/[address] [place] [address] Center (01/03/18 5:18 AM) CHEM PANEL Magnesium 2.7 mg/dL 1.8 - 2.4 01/02 [facility] Lvl [address] [place] [address] CHEM PANEL Phosphorus 4.3 mg/dL 2.5 - 4.5 01/[address] HEMATOLOGY Basophils # 0.1 K/CMM 0.0 - 0.2 01/02 [facility] HEMATOLOGY Segs-Bands # 1.8 K/CMM 1.5 - 8.1 01/02 [facility] HEMATOLOGY Lymphocytes 28.6 K/CMM 1.0 - 5.5 01/02 [facility] # /2017 [facility] HEMATOLOGY Monocytes # 0.2 K/CMM 0.0 - 0.8 01/[address] [place] [address] HEMATOLOGY Basophils 0.4 % 0.0 - 1.0 01/[address] [place] [address] HEMATOLOGY Anisocyte 1+ None Seen 01/02 [facility] *ABN* Center (01/02/18 2:43 AM) HEMATOLOGY Segs 6.0 % 45.0 - 01/02 [facility] 75.0 [facility] HEMATOLOGY Eosinophils 0.1 % 0.0 - 4.0 01/02 [facility] HEMATOLOGY Lymphocytes 92.8 % 20.0 - 01/02 40.0 [facility] HEMATOLOGY Monocytes 0.7 % 2.0 - 12.0 01/[address] [place] [address] HEMATOLOGY Plt Morph Normal 01/02 [facility] (01/02/18 2:43 AM) [place] HEMATOLOGY INR 1.07 0.85 - 01/02 [place] 1.17 [facility] HEMATOLOGY PT 13.9 s 12.0 - 01/02 [facility] 14.7 [facility] HEMATOLOGY PTT 30.5 s 22.9 - 01/02 [place] 35.8 [facility] HEMATOLOGY MCHC 33.3 g/dL 32.0 - 01/02 36.0 [facility] HEMATOLOGY Platelet 85 K/CMM 133 - 450 01/02 [facility] HEMATOLOGY RDW 21.1 % 11.5 - 03 [facility] 14.5 [facility] HEMATOLOGY MPV 9.6 fL 7.4 - 10.4 01/[address] HEMATOLOGY WBC 30.8 K/CMM 3.7 - 10.4 01/02 [facility] HEMATOLOGY Hct 25.3 % 36.0 - 01/02 [place] 48.0 [facility] HEMATOLOGY Hgb 8.4 g/dL 12.0 - 01/02 [place] 16.0 [facility] HEMATOLOGY RBC 2.57 M/CMM 4.20 - 01/02 [place] 5.40 /2017 [facility] HEMATOLOGY MCH 32.7 pg 27.0 - 01/02 [place] 31.0 [facility] HEMATOLOGY MCV 98.4 fL 80.0 - 01/02 [facility] 98.0 [facility] PARATHYROID Ca Ion WB 1.11 1.05 - 01/02 [facility] PROFILE mMol/L 1. [facility] PARATHYROID Ca Norm WB 1.12 1.05 - 01/02 [place] PROFILE mMol/L 1. [facility] ANEMIA TRANSFERRIN 208 mg/dL 212 - 360 01/02 [facility] STUDY /2017 [facility] ANEMIA % [place] 18 % 12 - 57 01/02 [facility] STUDY /2017 [facility] ANEMIA TIBC 430 ug/dl 228 - 428 01/02 [facility] STUDY /2017 [facility] ANEMIA UIBC 351 ug/dl 110 - 370 01/02 [facility] STUDY /2017 [facility] ANEMIA Iron 79 ug/dl 30 - 160 01/02 [facility] STUDY /2017 [facility] ANEMIA Ferritin Lvl 81 ng/mL 5 - 204 01/02 [facility] STUDY /2017 [facility] BLOOD BANK RBC product Product available 01/02 [facility] RESULTS [facility] (01/01/18 8:44 PM) [place] HEMATOLOGY Macrocyte 1+ None Seen 01/02 [facility] *ABN* Center (01/01/18 6:39 PM) CHEM PANEL Alk Phos 75 unit/L 39 - 136 01/[address] CHEM PANEL Bili Total 0.6 mg/dL 0.2 - 1.3 01/01 [facility] /[address] [place] [address] CHEM PANEL AST 33 unit/L 0 - 37 01/[address] [place] [address] CHEM PANEL Total 7.3 g/dL 6.4 - 8.4 01/01 [facility] CHEM PANEL Albumin Lvl 2.8 g/dL 3.5 - 5.0 01/01 [place] /2017 [facility] CHEM PANEL ALT 8 unit/L 0 - 65 01/01 [facility] /[address] [place] [address] CHEM PANEL A/G Ratio 0.6 0.7 - 1.6 01/01 [facility] /[address] [place] [address] CHEM PANEL B/C Ratio 24 6 - 25 01/[address] CHEM PANEL Globulin 4.5 g/dL 2.7 - 4.2 01/01 [place] /[address] [place] [address] BLOOD BANK Antibody Negative 01/01 [facility] RESULTS Scrn [facility] (01/01/18 12:41 AM) [place] BLOOD BANK ABO/Rh O NEG 01/01 [facility] RESULTS /2017 [facility] CARDIAC BNP 904 pg/mL <=100 01/01 [facility] ENZYMES pg/mL /2017 [facility] CHEM PANEL Lactic Acid 1.5 mMol/L 0.5 - 2.2 01/01 [facility] Lvl /2017 [facility] CHEM PANEL Procalcitoni 0.55 ng/mL 0.00 - 01/01 [facility] n Lvl 0.10 [facility] CHEM PANEL Total 7.8 g/dL 6.4 - 8.4 01/01 [facility] Protein [facility] CHEM PANEL Alk Phos 82 unit/L 39 - 136 01/[address] CHEM PANEL Bili Total 0.7 mg/dL 0.2 - 1.3 01/[address] CHEM PANEL Albumin Lvl 3.1 g/dL 3.5 - 5.0 01/[address] CHEM PANEL ALT 9 unit/L 0 - 65 01/[address] CHEM PANEL AST 21 unit/L 0 - 37 01/[address] CHEM PANEL A/G Ratio 0.7 0.7 - 1.6 01/[address] CHEM PANEL Globulin 4.7 g/dL 2.7 - 4.2 01/[address] CHEM PANEL B/C Ratio 23 6 - 25 01/[address] HEMATOLOGY Plt Morph Normal 01/01 [facility] (01/01/18 12:41 AM) [place] HEMATOLOGY Macrocyte 1+ None Seen 01/01 [facility] *ABN* [place] (01/01/18 12:41 AM) HEMATOLOGY Polychrom Moderate None Seen 01/01 [facility] *ABN* [place] (01/01/18 12:41 AM) HEMATOLOGY PTT 33.7 s 22.9 - 01/01 [place] 35.8 [facility] HEMATOLOGY PT 13.6 s 12.0 - 01/01 [facility] 14.7 [facility] HEMATOLOGY INR 1.04 0.85 - 01/01 [facility] 1.17 [facility] Chest 1view Chest 1view EXAM: XR CHEST 1 VIEW 01/01 - [facility] DX DX - [facility] DATE: 01/01/2018 Read by: Jackie Marcum MD [...] Lvl 131 ng/mL 5 - 204 11/29 [facility] STUDY [facility] CHEM PANEL Magnesium 1.8 mg/dL 1.8 - 2.4 11/29 [facility] CHEM PANEL Phosphorus 3.1 mg/dL 2.5 - 4.5 11/[address] CHEM PANEL Uric Acid 1.0 mg/dL 2.5 - 7.0 11/[address] CHEM PANEL eGFR 37 11/29 Result Comment: The eGFR is calculated using the CKD-EPI formula. In most young, healthy individuals the eGFR will be >90 mL/ min/1.73m2. The eGFR declines with age. An eGFR of 60-89 may be normal in [facility] mL/min/1.7 some populations, particularly the elderly, for whom the CKD-EPI formula has not been extensively validated. Use of the eGFR is not recommended in the following populations: [address] Individuals with unstable creatinine concentrations, including [...] Lvl 100 meq/L 95 - 109 11/29 [facility] CHEM PANEL CO2 24 meq/L 24 - 32 11/[address] CHEM PANEL Creatinine 1.36 mg/dL 0.50 - 11/29 [facility] Lvl 1.40 [facility] CHEM PANEL Sodium Lvl 135 meq/L 135 - 145 11/[address] CHEM PANEL Potassium 4.4 meq/L 3.5 - 5.1 11/29 [facility] Lvl [facility] CHEM PANEL BUN 47 mg/dL 7 - 22 11/[address] CHEM PANEL Glucose Lvl 147 mg/dL 70 - 99 11/[address] CHEM PANEL AGAP 15.4 meq/L 10.0 - / 20.0 [facility] CHEM PANEL Calcium Lvl 9.6 mg/dL 8.5 - 10.5 11/[address] HEMATOLOGY WBC 30.9 K/CMM 3.7 - 10.4 11/[address] HEMATOLOGY RDW 21.4 % 11.5 - 11/29 [facility] 14.5 [facility] HEMATOLOGY Platelet 75 K/CMM 133 - 450 11/[address] HEMATOLOGY MPV 9.4 fL 7.4 - 10.4 11/[address] HEMATOLOGY MCH 32.5 pg 27.0 - 11/29 [facility] 31.0 [facility] HEMATOLOGY MCHC 32.2 g/dL 32.0 - 11/29 [facility] 36.0 [facility] HEMATOLOGY Hgb 8.1 g/dL 12.0 - 11/29 [facility] 16.0 [facility] HEMATOLOGY Hct 25.2 % 36.0 - /03 [facility] 48.0 [facility] HEMATOLOGY MCV 100.7 fL 80.0 - 11/29 [facility] 98.0 [facility] HEMATOLOGY RBC 2.50 M/CMM 4.20 - 02/ [facility] 5.40 /2017 [facility] HEMATOLOGY Segs 4.0 % 45.0 - / 75.0 2018 [facility] HEMATOLOGY Lymphocytes 95.0 % 20.0 - 02/03 40.0 2018 [facility] HEMATOLOGY Bands 0.0 % 0.0 - 11.0 11/[address] HEMATOLOGY Monocytes 1.0 % 2.0 - 12.0 11/[address] HEMATOLOGY Segs-Bands # 1.2 K/CMM 1.5 - 8.1 11/[address] HEMATOLOGY Plt Morph Normal 11/29 [facility] (11/29/17 6:20 AM) Center HEMATOLOGY Atypical 0.0 % <=0.0 % 11/29 [facility] Lymphs [facility] HEMATOLOGY Macrocyte 1+ None Seen 11/29 [facility] *ABN* Center (11/29/17 6:20 AM) HEMATOLOGY Anisocyte 1+ None Seen 11/29 [facility] *ABN* Center (11/29/17 6:20 AM) HEMATOLOGY Polychrom Slight 11/29 [facility] /2017 [facility] HEMATOLOGY Lymphocytes 29.4 K/CMM 1.0 - 5.5 11/29 [facility] # /2017 [facility] HEMATOLOGY Monocytes # 0.3 K/CMM 0.0 - 0.8 11/29 [facility] /[address] [place] [address] PARATHYROID PTH Intact 88.2 pg/mL 11.1 - 11/29 [facility] PROFILE 79.5 [facility] REFERENCE [facility] [place] [place] Lab IGVH 11/28 [facility] LAB RESULTS Hypermutat [facility] AnalyisSou rce: BMResults: Mutation Status: UnmutatedI nterpretat ion:PCR amplificat ion of the IgM gene variable (V) region detects a monoclonal population of B-cells. This patient's sequence is 0.00% different from germline.R eference lab results scanned in Care[employer]. Results displayed in Results-La b-REFERENC E LAB-Outsid e Lab Documents (Imaged) under date/time results were scanned. Report sent for scanning on 12/04/2017 22:40.Deta frederick report faxed to Dr. Benedict 12/04/2017 22:40. 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 Juan Rushing @[id number] on 12/04/2017 /Rebecca.R eference lab results scanned in Care[employer]. Results displayed in Results-La b-REFERENC E LAB-Outsid e Lab Documents (Imaged) under date/time results were scanned. Report sent for scanning on 12/04/2017 00:48. REFERENCE Test Name CLL BY 11/28 [facility] LAB RESULTS FISH [facility] Center REFERENCE Test Name CHROMOSOME 11/28 [facility] LAB RESULTS ANALYSIS [facility] Center REFERENCE Misc Lab Chromosome 11/28 [facility] LAB RESULTS AnalysisSo Medical urce: Center [...] report faxed to Dr. Benedict 12/05/2017 22:26. HEMATOLOGY INR 1.09 0.85 - 11/28 [place] 1.17 /2017 [facility] HEMATOLOGY PT 14.1 s 12.0 - 11/28 [place] 14.7 /2017 [facility] HEMATOLOGY PTT 72.4 s 22.9 - 11/28 [place] 35.8 /2018 [facility] BLOOD BANK Antibody Negative 11/28 [facility] RESULTS Scrn /2017 Medical (11/28/17 3:24 AM) [place] BLOOD BANK ABO/Rh O NEG 11/28 [facility] RESULTS /2018 [facility] Bone Marrow Bone Marrow STUDY: Bone marrow aspiration and biopsy 11/28 - [facility] Bio/Aspr CT Bio/Aspr CT /2017 - [facility] Biopsy of retroperitoneal mass Read by: Jayy Israel MD Dictated Date/time: 11/28/17 10:29 Electronically Signed by: Jayy Israel MD 11/28/17 10:58 FINAL REPORT DATE: 11/28/2017 8:00 AM [employer]PER[employer] MARBLE INDICATION(S): The patient has chronic lymphocytic anemia [...] Temno needle. All needles were then removed. PRODUCTION TRAINER: Jhonatan [employer] BOILER(S): CONSENT: Written consent obtained after discussing the [...] procedure. HEMATOLOGY INR 1.02 0.85 - 11/28 [facility] 1. [facility] HEMATOLOGY PT 13.4 s 12.0 - 11/28 [facility] 14.7 [facility] HEMATOLOGY PTT 61.0 s 22.9 - 02 [facility] 35.8 [facility] ANEMIA Ferritin Lvl 151 ng/mL 5 - 204 11/28 [facility] STUDY [facility] CHEM PANEL Phosphorus 3.1 mg/dL 2.5 - 4.5 11/[address] CHEM PANEL Magnesium 1.7 mg/dL 1.8 - 2.4 11/28 [facility] /2017 [facility] CHEM PANEL eGFR 38 11/28 Result Comment: The eGFR is calculated using the CKD-EPI formula. In most young, healthy individuals the eGFR will be >90 mL/ min/1.73m2. The eGFR declines with age. An eGFR of 60-89 may be normal in [facility] [place] mL/min/1.7 some populations, particularly the elderly, for whom the CKD-EPI formula has not been extensively validated. Use of the eGFR is not recommended in the following populations: [address] Individuals with unstable creatinine concentrations, including [...] Lvl 101 meq/L 95 - 109 11/[address] CHEM PANEL Potassium 4.2 meq/L 3.5 - 5.1 11/28 [facility] [address] [place] [address] CHEM PANEL Sodium Lvl 135 meq/L 135 - 145 11/[address] CHEM PANEL BUN 49 mg/dL 7 - 22 11/[address] CHEM PANEL Creatinine 1.31 mg/dL 0.50 - 11/28 [facility] Lvl 1.40 [facility] CHEM PANEL AGAP 12.2 meq/L 10.0 - 11/28 [facility] 20.0 [facility] CHEM PANEL CO2 26 meq/L 24 - 32 11/[address] CHEM PANEL Calcium Lvl 9.2 mg/dL 8.5 - 10.5 11/[address] CHEM PANEL Glucose Lvl 119 mg/dL 70 - [address] CHEM PANEL Uric Acid null 2.5 - 7.0 11/[address] HEMATOLOGY Platelet 75 K/CMM 133 - 450 11/[address] HEMATOLOGY MPV 9.3 fL 7.4 - 10.4 11/[address] HEMATOLOGY MCHC 32.5 g/dL 32.0 - 11/28 [facility] 36.0 [facility] HEMATOLOGY RDW 21.2 % 11.5 - 02 [facility] 14.5 [facility] HEMATOLOGY Hgb 7.2 g/dL 12.0 - 02/ [place] 16.0 [facility] HEMATOLOGY RBC 2.20 M/CMM 4.20 - 02/ [facility] 5.40 [facility] HEMATOLOGY Hct 22.0 % 36.0 - 02/ [facility] 48.0 [facility] HEMATOLOGY MCH 32.6 pg 27.0 - 02 [facility] 31.0 [facility] HEMATOLOGY MCV 100.2 fL 80.0 - 11/28 [facility] 98.0 [facility] HEMATOLOGY WBC 30.1 K/CMM 3.7 - 10.4 11/[address] HEMATOLOGY Macrocyte 1+ None Seen 11/[address] (11/28/17 1:22 AM) HEMATOLOGY Smudge Moderate None Seen 11/28 [facility] [address] [place] [address] (11/28/17 1:22 AM) HEMATOLOGY Lymphocytes 93.6 % 20.0 - 11/28 [facility] 40.0 [facility] HEMATOLOGY Monocytes 0.6 % 2.0 - 12.0 11/[address] HEMATOLOGY Segs 5.6 % 45.0 - 11/28 [facility] 75.0 [facility] HEMATOLOGY Eosinophils 0.1 % 0.0 - 4.0 11/[address] HEMATOLOGY Lymphocytes 28.2 K/CMM 1.0 - 5.5 11/28 [facility] # /2017 [facility] HEMATOLOGY Monocytes # 0.2 K/CMM 0.0 - 0.8 11/[address] HEMATOLOGY Anisocyte 1+ None Seen 11/[address] (11/28/17 1:22 AM) HEMATOLOGY Basophils 0.1 % 0.0 - 1.0 11/[address] HEMATOLOGY Segs-Bands # 1.7 K/CMM 1.5 - 8.1 11/[address] PARATHYROID PTH Intact 103.9 11.1 - 11/28 [facility] PROFILE pg/mL 79.5 [facility] CHEM PANEL Uric Acid 3.5 mg/dL 2.5 - 7.0 11/[address] CHEM PANEL Phosphorus 3.8 mg/dL 2.5 - 4.5 11/[address] HEMATOLOGY PTT 58.9 s 22.9 - 11/28 [facility] 35.8 [facility] ANEMIA Ferritin Lvl 146 ng/mL 5 - 204 11/27 [facility] STUDY /2017 [facility] CHEM PANEL eGFR 39 11/27 Result Comment: The eGFR is calculated using the CKD-EPI formula. In most young, healthy individuals the eGFR will be >90 mL/ min/1.73m2. The eGFR declines with age. An eGFR of 60-89 may be normal in [facility] mL/min/1. some populations, particularly the elderly, for whom the CKD-EPI formula has not been extensively validated. Use of the eGFR is not recommended in the following populations: [address] Individuals with unstable creatinine concentrations, including [...] Lvl 134 meq/L 135 - 145 11/[address] CHEM PANEL Creatinine 1.30 mg/dL 0.50 - 11/27 [facility] 1.40 [facility] CHEM PANEL Chloride Lvl 99 meq/L 95 - 109 11/[address] CHEM PANEL Potassium 4.3 meq/L 3.5 - 5.1 11/27 [facility] [address] [place] [address] CHEM PANEL CO2 24 meq/L 24 - 32 11/[address] CHEM PANEL AGAP 15.3 meq/L 10.0 - 11/27 [facility] 20.0 [facility] CHEM PANEL Calcium Lvl 9.7 mg/dL 8.5 - 10.5 11/[address] CHEM PANEL BUN 47 mg/dL 7 - 22 11/[address] CHEM PANEL Glucose Lvl 139 mg/dL 70 - 99 11/[address] HEMATOLOGY INR 1.06 0.85 - 11/27 [facility] 1.17 [facility] HEMATOLOGY PT 13.8 s 12.0 - 11/27 [facility] 14.7 [facility] HEMATOLOGY Anisocyte 1+ None Seen 11/27 [facility] [address] [place], [place] [address]ABN* [place] (11/27/17 2:07 AM) HEMATOLOGY Tot Cell Ct 200 11/[address] HEMATOLOGY Smudge Moderate None Seen 11/27 [facility] [address] [place] [address]* [place] (11/27/17 2:07 AM) HEMATOLOGY Polychrom Moderate None Seen 11/27 [facility] [place] /[address] [place] [address]* [place] (11/27/17 2:07 AM) HEMATOLOGY Bands 0.0 % 0.0 - 11.0 11/27 [facility] HEMATOLOGY Plt Morph Normal 11/27 [facility] (11/27/17 2:07 AM) [place] HEMATOLOGY Segs 9.0 % 45.0 - 11/27 [place] 75.0 /2017 [facility] HEMATOLOGY Monocytes 1.0 % 2.0 - 12.0 11/27 [facility] [address] [place] [address] HEMATOLOGY Lymphocytes 90.0 % 20.0 - 02 [place] 40.0 [facility] HEMATOLOGY Atypical 0.0 % <=0.0 % 11/27 [facility] Lymphs /2017 [facility] HEMATOLOGY Lymphocytes 27.6 K/CMM 1.0 - 5.5 11/27 [facility] # [facility] HEMATOLOGY Monocytes # 0.3 K/CMM 0.0 - 0.8 11/[address] HEMATOLOGY Segs-Bands # 2.8 K/CMM 1.5 - 8.1 11/27 [facility] [address] [place] [address] HEMATOLOGY RBC 2.19 M/CMM 4.20 - 02 [place] 5.40 [facility] HEMATOLOGY WBC 30.7 K/CMM 3.7 - 10.4 11/[address] HEMATOLOGY Hgb 7.2 g/dL 12.0 - 02 [facility] 16.0 [facility] HEMATOLOGY MCHC 32.7 g/dL 32.0 - 02 [place] 36.0 [facility] HEMATOLOGY MCH 32.6 pg 27.0 - 11/27 31.0 [facility] HEMATOLOGY MCV 99.9 fL 80.0 - 02 [facility] 98.0 [facility] HEMATOLOGY Hct 21.9 % 36.0 - 02 [facility] 48.0 [facility] HEMATOLOGY RDW 22.1 % 11.5 - 02/ [facility] 14.5 [facility] HEMATOLOGY Platelet 74 K/CMM 133 - 450 11/[address] HEMATOLOGY MPV 9.1 fL 7.4 - 10.4 11/[address] PARATHYROID PTH Intact 95.6 pg/mL 11.1 - 02 [facility] PROFILE 79.5 [facility] CHEM PANEL Vitamin D 40 pg/mL 11/26 Result Comment: Reference Range: [facility] ,25 ([place])2 Adults: 21 - 65 [facility] CHEM PANEL Vitamin D3 40 pg/mL 11/26 Result Comment: Performed At: [facility] Endocrinology [facility] ,25 ([place]) [address] [place] [address] [id number] [facility] Trini Lao MD Ph:[phone] [place] CHEM PANEL Vitamin D2 null 11/26 [facility] ,25 ([place])2 [facility] PARATHYROID Parathyroid null 11/26 Result Comment: Reference Range: [facility] PROFILE Hormone All Ages: <2.0 Medical Related The PTHrP assay should not be used to exclude cancer or Center Peptide screen tumor patients for humoral hypercalcemia of malignancy (HHM). The results should always be assessed in conjunction with the patient's medical history, clinical examination, and other findings. If test results are clinically discordant, please contact the laboratory. Performed At: [facility] Endocrinology [address] [place] [address] [id number] Trini Lao MD Ph:[phone] HEMATOLOGY Bands 1.0 % 0.0 - 11.0 11/26 [facility] HEMATOLOGY Plt Morph Normal 11/26 [facility] (11/26/17 8:35 AM) [place] HEMATOLOGY Atypical 0.0 % <=0.0 % 11/26 [facility] Lymph [facility] HEMATOLOGY Polychrom Moderate None Seen 11/26 [facility] *ABN* [place] (11/26/17 8:35 AM) HEMATOLOGY Macrocyte 1+ None Seen 11/26 [facility] *ABN* [place] (11/26/17 8:35 AM) HEMATOLOGY Hypochrom 1+ None Seen 11/26 [facility] (11/26/17 8:35 AM) [place] HEMATOLOGY Smudge Moderate None Seen 11/26 [facility] *ABN* [place] (11/26/17 8:35 AM) BODY FLUIDS Clarity BF Moderate Cloudy Clear 11/25 Medical *ABN* [place] (11/25/17 5:24 PM) BODY FLUIDS Color BF Dark Yellow Colorless 11/25 [facility] (11/25/17 5:24 PM) [place] BODY FLUIDS CellCnt BF Synovial 11/25 [facility] (11/25/17 5:24 PM) [place] BODY FLUIDS Macrophage 5 % 11/25 [facility] BF [facility] [place] [address] /mm3 11/25 [facility] [place] [address] /mm3 11/25 [facility] BODY FLUIDS Lymph BF 1 % 11/25 [facility] BODY FLUIDS Segs BF 94 % 11/25 [facility] BODY FLUIDS Crystal BF Synovial 11/25 [facility] (11/25/17 5:24 PM) [place] BODY FLUIDS Crystal BF [place] Na Urate Negative 11/25 [facility] *ABN* [place] (11/25/17 5:24 PM) Hand 3 Hand 3 views EXAM: RIGHT HAND 3 VIEWS 11/25 - [facility] DX - [facility] EXAM: LEFT HAND 3 VIEWS [place] Read by: Terell Sanchez MD Dictated Date/time: 11/26/17 07:24 DATE: 11/25/2017 6:02 PM [employer]PER[employer]OR MARBLE Electronically Signed by: Terell Sanchez MD 11/26/17 [...] EXAM: RIGHT FOOT 3 VIEWS 11/25 - [facility] DX - Medical EXAM: LEFT FOOT 3 VIEWS Center Read by: Terell Sanchez MD Dictated Date/time: 11/26/17 07:30 DATE: 11/25/2017 6:02 PM [employer]PER[employer] MARBLE Electronically Signed by: Terell Sanchez MD 11/26/17 [...] EXAM: RIGHT FOOT 3 VIEWS 11/25 - [facility] DX - Medical EXAM: LEFT FOOT 3 VIEWS Center Read by: Terell Sanchez MD Dictated Date/time: 11/26/17 07:30 DATE: 11/25/2017 6:02 PM [employer]PER[employer]OR MARBLE Electronically Signed by: Terell Sanchez MD 11/26/17 [...] VIEWS 11/25 - [place] views DX DX - Medical EXAM: LEFT HAND 3 VIEWS Center Read by: Terell Sanchez MD Dictated Date/time: 11/26/17 07:24 DATE: 11/25/2017 6:02 PM [employer]PER[employer]OR MARBLE Electronically Signed by: Terell Sanchez MD 11/26/17 [...] Eosinophils 0.1 % 0.0 - 4.0 11/[address] HEMATOLOGY Basophils 0.3 % 0.0 - 1.0 11/[address] HEMATOLOGY Basophils # 0.1 K/CMM 0.0 - 0.2 11/[address] HEMATOLOGY Hypochrom 1+ None Seen 11/[address] (11/25/17 5:26 AM) [place] Knee 3 Knee 3 views EXAM: XR RIGHT KNEE 3 VIEWS 11/24 [facility] views DX DX /[address] [place] [address] DATE: 11/24/2017 10:36 AM [employer]PERVISOR MARBLE Read by: Davonte Ramires MD Dictated Date/time: [...] effusion. PET CT PET CT Tumor EXAM: AR PET CT Skull Base to Mid Thigh 11/24 - [facility] Tumor imaging-sk /2018 - Medical imaging-sku [facility] This report was dictated by a Cashier Tube Room/Fellow. I have personally reviewed the images as Center [facility] well as the Resident's interpretation and agree with the findings. DATE: 11/24/2017 10:48 AM SUPERVISOR MARBLE Read by: Fela Lewis MD Resident: Fela [...] Eosinophils 0.1 % 0.0 - 4.0 11/[address] HEMATOLOGY Basophils # 0.1 K/CMM 0.0 - 0.2 11/[address] HEMATOLOGY Basophils 0.4 % 0.0 - 1.0 11/[address] CHEM PANEL B/C Ratio 26 6 - 25 11/[address] CHEM PANEL A/G Ratio 0.6 0.7 - 1.6 11/[address] CHEM PANEL Globulin 5.2 g/dL 2.7 - 4.2 11/[address] CHEM PANEL Albumin Lvl 2.9 g/dL 3.5 - 5.0 11/[address] CHEM PANEL ALT 11 unit/L 0 - 65 11/[address] CHEM PANEL AST 16 unit/L 0 - 37 11/[address] CHEM PANEL Alk Phos 71 unit/L 39 - 136 11/[address] CHEM PANEL Total 8.1 g/dL 6.4 - 8.4 11/23 [facility] [address] CHEM PANEL Bili Total 0.6 mg/dL 0.2 - 1.3 11/[address] HEMATOLOGY Eosinophils 0.3 K/CMM 0.0 - 0.5 11/[address] CHEM PANEL Bili Total 0.8 mg/dL 0.2 - 1.3 11/[address] CHEM PANEL Albumin Lvl 2.7 g/dL 3.5 - 5.0 11/[address] CHEM PANEL Alk Phos 65 unit/L 39 - 136 11/[address] CHEM PANEL AST 24 unit/L 0 - 37 11/[address] CHEM PANEL B/C Ratio 24 6 - 25 11/[address] CHEM PANEL ALT 7 unit/L 0 - 65 11/[address] CHEM PANEL A/G Ratio 0.6 0.7 - 1.6 11/[address] CHEM PANEL Total 7.3 g/dL 6.4 - 8.4 11/22 [facility] Protein [address] CHEM PANEL Globulin 4.6 g/dL 2.7 - 4.2 11/[address] CHEM PANEL Magnesium 2.5 mg/dL 1.8 - 2.4 11/21 [facility] Lvl [address] PARATHYROID Ca Ion WB 1.17 1.05 - 11/21 [facility] PROFILE mMol/L 1. [facility] PARATHYROID Ca Norm WB 1.19 . - 11/21 [facility] PROFILE mMol/L 1. [facility] HEMATOLOGY Blasts 0.0 % <=0.0 % 11/[address] PARATHYROID Ca Norm WB 1.22 . - 11/21 [facility] PROFILE mMol/L 1. [facility] PARATHYROID Ca Ion WB 1.21 . - 11/21 [facility] PROFILE mMol/L 1. [facility] CARDIAC Total CK 20 unit/L 12 - 191 11/21 [facility] ENZYMES [address] CHEM PANEL LDH 344 unit/L 98 - 192 11/[address] CHEM PANEL Plasma 10 mg/dL 0 - 10 11/21 [facility] Hemoglobin [address] CHEM PANEL A/G Ratio 0.6 0.7 - 1.6 11/[address] CHEM PANEL Globulin 4.7 g/dL 2.7 - 4.2 11/[address] CHEM PANEL AST 17 unit/L 0 - 37 11/[address] CHEM PANEL ALT 8 unit/L 0 - 65 11/[address] CHEM PANEL Albumin Lvl 2.8 g/dL 3.5 - 5.0 11/[address] CHEM PANEL Total 7.5 g/dL 6.4 - 8.4 11/21 [facility] Protein [address] CHEM PANEL Bili 0.6 mg/dL 0.0 - 1.0 11/21 [facility] Indirect [address] CHEM PANEL Bili Direct 0.3 mg/dL 0.0 - 0.3 11/[address] CHEM PANEL Bili Total 0.9 mg/dL 0.2 - 1.3 11/[address] CHEM PANEL Alk Phos 68 unit/L 39 - 136 11/[address] IMMUNOLOGY Haptoglobin 203 mg/dL 16 - 200 11/[address] URINE AND UA Sq Epi None Seen 11/21 [facility] STOOL [address] URINE AND UA <=1.0 0.1 - 1.0 11/21 [facility] Urobilinogen mg/dL [address] [place] [address] URINE AND UA Bacteria Few /HPF None Seen 11/21 [facility] STOOL HPF /[address] [place] [address] URINE AND UA Mucus Few /LPF None Seen 11/21 [facility] /LPF /[address] [place] [address] URINE AND UA Leuk Est Negative Negative 11/[address] (11/20/17 6:30 PM) [place] URINE AND UA RBC null 0 - 2 11/[address] URINE AND UA Bili Negative Negative 11/[address] *NA* [place] (11/20/17 6:30 PM) URINE AND UA Blood Negative Negative 11/[address] (11/20/17 6:30 PM) [place] URINE AND UA Nitrite Negative Negative 11/[address] (11/20/17 6:30 PM) [place] URINE AND UA WBC 1 /HPF 0 - 5 11/[address] URINE AND UA pH 5.0 5.0 - 8.0 11/[address] URINE AND UA Protein Negative Negative 11/21 [facility] mg/dL mg/dL [address] [place] [address] URINE AND UA Ketones Negative Negative 11/21 [facility] mg/dL mg/dL [address] URINE AND UA Spec Grav 1.005 <=1.030 11/[address] URINE AND UA Color Light Yellow Yellow 11/[address] *NA* [place] (11/20/17 6:30 PM) URINE AND UA Turbidity Clear Clear 11/21 [facility] STOOL [facility] Center (11/20/17 6:30 PM) [place] URINE AND UA Glucose Negative Negative 11/21 [facility] STOOL mg/dL mg/dL [facility] URINE CHEM U Sodium 109 meq/L 11/[address] URINE CHEM U Protein null 11/[address] URINE CHEM U Creatinine 10.30 11/21 [facility] mg/dL [facility] URINE CHEM U Prot/Creat null 11/21 [facility]2017 [facility] PARATHYROID Ca Ion WB 1.18 1.05 - 11/20 [facility] PROFILE mMol/L . [facility] PARATHYROID Ca Norm WB 1.18 1.05 - 11/20 [facility] PROFILE mMol/L . [facility] CARDIAC BNP 351 pg/mL <=100 11/20 [facility] ENZYMES pg/mL [facility] HEMATOLOGY Blasts 16.0 % <=0.0 % 11/20 [facility] [address] [place] [address] 400 11/20 [facility] Chest 1view Chest 1view EXAM: XR CHEST 1 VIEW 11/20 - [facility] DX DX - [facility] DATE: 11/20/2017 4:05 AM [employer]PERVISOR MARBLE Read by: Meredith Jaimes MD Dictated Date/time: [...] Acid 1.1 mMol/L 0.5 - 2.2 11/20 [facility] Lvl [facility] BLOOD BANK RBC product Product available 11/20 [facility] RESULTS [facility] (11/19/17 6:49 PM) [place] BLOOD BANK ABO/Rh O NEG 11/20 [facility] RESULTS [facility] BLOOD BANK Antibody Negative 11/20 [facility] RESULTS Scrn /2018 Medical (11/19/17 6:24 PM) Center CARDIAC Troponin-I null 0.00 - 11/20 [facility] ENZYMES 0.40 [facility] HEMATOLOGY Tot Cell Ct 200 11/20 [facility] HEMATOLOGY Blasts 25.0 % <=0.0 % 11/20 Result [facility] Comment: Medical Previuosely Center blast was released HEMATOLOGY D-Dimer 1.72 ug/mL 11/20 [facility] FEU [facility] Chest 1view Chest 1view EXAM: XR CHEST 1 VIEW 11/19 - [facility] DX DX - Medical This report was dictated by a Cashier Tube Room/Fellow. I have personally reviewed the images as Center well as the Resident's interpretation and agree with the findings. DATE: 11/19/2017 5:19 PM [employer]PERVIS[employer] MARBLE Read by: Kike Lea MD Resident: Kike [...] Phosphorus 2.7 mg/dL 2.5 - 4.5 11/02 [facility] /2017 [facility] CHEM PANEL Magnesium 1.6 mg/dL 1.8 - 2.4 11/02 [facility] Lvl /2017 [facility] ELECTROLYTE AGAP 16.5 meq/L 10.0 - 11/02 [facility] S 20.0 [facility] ELECTROLYTE eGFR 44 11/02 Result Comment: The eGFR is calculated using the CKD-EPI formula. In most young, healthy individuals the eGFR will be >90 mL/ min/1.73m2. The eGFR declines with age. An eGFR of 60-89 may be normal in [facility] mL/min/1. some populations, particularly the elderly, for whom the CKD-EPI formula has not been extensively validated. Use of the eGFR is not recommended in the following populations: [address] Individuals with unstable creatinine concentrations, including [...] ELECTROLYTE Creatinine 1.18 mg/dL 0.50 - 11/02 [facility] Lvl 1.40 [facility] ELECTROLYTE Sodium Lvl 137 meq/L 135 - 145 11/[address] ELECTROLYTE Chloride Lvl 103 meq/L 95 - 109 11/[address] ELECTROLYTE CO2 22 meq/L 24 - 32 11/[address] ELECTROLYTE Glucose Lvl 155 mg/dL 70 - 99 11/[address] ELECTROLYTE BUN 28 mg/dL 7 - 22 11/[address] ELECTROLYTE Potassium 4.5 meq/L 3.5 - 5.1 11/02 [facility] [address] [place] [address] ELECTROLYTE Calcium Lvl 8.8 mg/dL 8.5 - 10.5 11/[address] HEMATOLOGY INR 1.06 0.85 - 11/02 [place] 1.17 [facility] HEMATOLOGY PT 13.8 s 12.0 - 11/02 [facility] 14.7 [facility] HEMATOLOGY PTT 34.2 s 22.9 - 11/02 [place] 35.8 [facility] HEMATOLOGY RBC 2.75 M/CMM 4.20 - 11/02 [place] 5.40 [facility] HEMATOLOGY MCV 95.5 fL 80.0 - 11/02 [facility] 98.0 [facility] HEMATOLOGY MCH 31.2 pg 27.0 - 11/02 [facility] 31.0 /2018 [facility] HEMATOLOGY Hgb 8.6 g/dL 12.0 - 11/02 [facility] 16.0 [facility] HEMATOLOGY WBC 33.2 K/CMM 3.7 - 10.4 11/[address] HEMATOLOGY Hct 26.3 % 36.0 - 11/02 [facility] 48.0 [facility] HEMATOLOGY MPV 8.9 fL 7.4 - 10.4 11/[address] HEMATOLOGY Platelet 90 K/CMM 133 - 450 11/[address] HEMATOLOGY RDW 19.2 % 11.5 - 11/02 [facility] 14.5 [facility] HEMATOLOGY MCHC 32.7 g/dL 32.0 - 11/02 [facility] 36.0 [facility] HEMATOLOGY Tot Cell Ct 100 11/[address] HEMATOLOGY Plt Morph Normal 11/[address] [place] [address] (11/02/17 4:34 AM) [place] HEMATOLOGY RBC Morph Normal 11/02 [facility] (11/02/17 4:34 AM) [place] HEMATOLOGY Atypical 0.0 % <=0.0 % 11/02 [facility] Lymphs [facility] HEMATOLOGY Monocytes 2.0 % 2.0 - 12.0 11/[address] HEMATOLOGY Lymphocytes 95.0 % 20.0 - 11/02 [facility] 40.0 [facility] HEMATOLOGY Bands 0.0 % 0.0 - 11.0 11/[address] HEMATOLOGY Segs 3.0 % 45.0 - 11/02 [facility] 75.0 [facility] HEMATOLOGY Monocytes # 0.7 K/CMM 0.0 - 0.8 11/[address] [place] [address] HEMATOLOGY Segs-Bands # 1.0 K/CMM 1.5 - 8.1 11/[address] HEMATOLOGY Lymphocytes 31.5 K/CMM 1.0 - 5.5 11/02 [facility] HEMATOLOGY Smudge Moderate None Seen 11/[address] [place] [address] *ABN* Center (11/02/17 4:34 AM) HEMATOLOGY Hct 23.2 % 36.0 - 11/02 [facility] 48.0 [facility] HEMATOLOGY Hgb 7.7 g/dL 12.0 - 11/02 [facility] 16. [facility] BLOOD BANK RBC product Product available 11/01 [facility] (11/01/17 7:10 AM) [place] CARDIAC BNP 384 pg/mL <=100 11/01 [facility] ENZYMES pg/mL /2017 [facility] CHEM PANEL Magnesium 2.2 mg/dL 1.8 - 2.4 11/01 [facility] Lvl [facility] CHEM PANEL Globulin 4.5 g/dL 2.7 - 4.2 11/01 [facility] CHEM PANEL A/G Ratio 0.6 0.7 - 1.6 11/01 [facility] CHEM PANEL B/C Ratio 22 6 - 25 11/01 [facility] CHEM PANEL AGAP 17.7 meq/L 10.0 - 11/01 [facility] 20.0 [facility] CHEM PANEL eGFR 54 11/01 Result Comment: The eGFR is calculated using the CKD-EPI formula. In most young, healthy individuals the eGFR will be >90 mL/ min/1.73m2. The eGFR declines with age. An eGFR of 60-89 may be normal in [facility] mL/min/1.7 some populations, particularly the elderly, for whom the CKD-EPI formula has not been extensively validated. Use of the eGFR is not recommended in the following populations: [address] Individuals with unstable creatinine concentrations, including [...] Total 0.5 mg/dL 0.2 - 1.3 11/01 [facility] CHEM PANEL Alk Phos 58 unit/L 39 - 136 11/01 [facility] CHEM PANEL AST 19 unit/L 0 - 37 11/01 [facility] CHEM PANEL Glucose Lvl 143 mg/dL 70 - 99 11/[address] CHEM PANEL Total 7.2 g/dL 6.4 - 8.4 11/01 [facility] Protein [facility] CHEM PANEL Calcium Lvl 8.9 mg/dL 8.5 - 10.5 11/[address] CHEM PANEL CO2 20 meq/L 24 - 32 11/01 [facility] CHEM PANEL Albumin Lvl 2.7 g/dL 3.5 - 5.0 11/01 [facility] CHEM PANEL ALT 7 unit/L 0 - 65 11/01 [facility] CHEM PANEL Creatinine 0.99 mg/dL 0.50 - 11/01 [facility] Lvl 1.40 [facility] CHEM PANEL BUN 22 mg/dL 7 - 22 11/01 [facility] CHEM PANEL Sodium Lvl 142 meq/L 135 - 145 11/01 [facility] CHEM PANEL Chloride Lvl 109 meq/L 95 - 109 11/01 [facility] CHEM PANEL Potassium 4.7 meq/L 3.5 - 5.1 11/01 [facility] CHEM PANEL Phosphorus 3.7 mg/dL 2.5 - 4.5 11/01 [facility] HEMATOLOGY INR 1.07 0.85 - 11/01 [facility] 1.17 [facility] HEMATOLOGY PTT 32.8 s 22.9 - 11/01 [facility] 35.8 [facility] HEMATOLOGY PT 13.9 s 12.0 - 11/01 [facility] 14.7 [facility] HEMATOLOGY Platelet 90 K/CMM 133 - 450 11/01 [facility] HEMATOLOGY WBC 26.3 K/CMM 3.7 - 10.4 11/01 [facility] HEMATOLOGY Hgb 6.9 g/dL 12.0 - 11/01 Result [facility] 16. Comment: [facility] Critical Center Result(s) called to KIRA CRAWFORD at 11/01/2017 03:48 by [employer]. Read back OK. HEMATOLOGY RBC 2.23 M/CMM 4.20 - 11/01 [facility] 5.40 [facility] HEMATOLOGY MCH 30.9 pg 27.0 - 11/01 [facility] 31.0 [facility] HEMATOLOGY RDW 19.2 % 11.5 - 11/01 [facility] 14.5 2018 [facility] HEMATOLOGY MCHC 32.3 g/dL 32.0 - 11/01 [facility] 36.0 2018 [facility] HEMATOLOGY MCV 95.6 fL 80.0 - 11/01 [facility] 98.0 /2017 [facility] HEMATOLOGY Hct 21.3 % 36.0 - 11/01 [facility] 48.0 [facility] HEMATOLOGY MPV 9.0 fL 7.4 - 10.4 11/[address] HEMATOLOGY Lymphocytes 23.7 K/CMM 1.0 - 5.5 11/01 [facility] # 2017 [facility] HEMATOLOGY Segs-Bands # 2.4 K/CMM 1.5 - 8.1 11/[address] HEMATOLOGY Segs 9.0 % 45.0 - 11/01 [facility] 75.0 [facility] HEMATOLOGY Monocytes # 0.3 K/CMM 0.0 - 0.8 11/[address] HEMATOLOGY Bands 0.0 % 0.0 - 11.0 11/[address] HEMATOLOGY Monocytes 1.0 % 2.0 - 12.0 11/[address] HEMATOLOGY Lymphocytes 90.0 % 20.0 - 11/01 [facility] 40.0 [facility] HEMATOLOGY Atypical 0.0 % <=0.0 % 11/01 [facility] Lymphs [address] HEMATOLOGY Smudge Moderate None Seen 11/01 [facility] [address] [place], [place] [address]ABN* Center (11/01/17 2:35 AM) PARATHYROID Ca Ion WB 1.24 1.05 - 11/01 [facility] PROFILE mMol/L . [facility] PARATHYROID Ca Norm WB 1.23 1. - 11/01 [facility] PROFILE mMol/L 11.20 [facility] ELECTROLYTE Potassium 4.5 meq/L 3.5 - 5.1 11/[address] CHEM PANEL Phosphorus 5.1 mg/dL 2.5 - 4.5 10/[address] CHEM PANEL Magnesium 1.2 mg/dL 1.8 - 2.4 10/[address] ELECTROLYTE AGAP 15.6 meq/L 10.0 - 10/31 [facility] 20.0 [facility] ELECTROLYTE eGFR 41 10/31 Result Comment: The eGFR is calculated using the CKD-EPI formula. In most young, healthy individuals the eGFR will be >90 mL/ min/1.73m2. The eGFR declines with age. An eGFR of 60-89 may be normal in [facility] mL/min/1. some populations, particularly the elderly, for whom the CKD-EPI formula has not been extensively validated. Use of the eGFR is not recommended in the following populations: [address] Individuals with unstable creatinine concentrations, including [...] ELECTROLYTE Creatinine 1.24 mg/dL 0.50 - 10/31 [facility] Lvl 1.40 [facility] ELECTROLYTE Glucose Lvl 190 mg/dL 70 - 99 10/[address] ELECTROLYTE BUN 23 mg/dL 7 - 22 10/[address] ELECTROLYTE Sodium Lvl 138 meq/L 135 - 145 10/[address] ELECTROLYTE Chloride Lvl 104 meq/L 95 - 109 10/[address] ELECTROLYTE CO2 22 meq/L 24 - 32 10/[address] ELECTROLYTE Calcium Lvl 8.4 mg/dL 8.5 - 10.5 10/[address] HEMATOLOGY MPV 8.9 fL 7.4 - 10.4 10/[address] HEMATOLOGY RDW 19.3 % 11.5 - 10/31 [facility] 14.5 [facility] HEMATOLOGY Platelet 78 K/CMM 133 - 450 10/[address] HEMATOLOGY MCH 30.7 pg 27.0 - 10/31 [facility] 31.0 [facility] HEMATOLOGY MCV 95.6 fL 80.0 - 10/31 98.0 [facility] HEMATOLOGY MCHC 32.1 g/dL 32.0 - 10/31 36.0 [facility] HEMATOLOGY WBC 19.6 K/CMM 3.7 - 10.4 10/[address] HEMATOLOGY RBC 2.23 M/CMM 4.20 - 10/31 [facility] 5.40 [facility] HEMATOLOGY Monocytes # 0.1 K/CMM 0.0 - 0.8 10/[address] HEMATOLOGY Lymphocytes 18.6 K/CMM 1.0 - 5.5 10/31 [facility] HEMATOLOGY Basophils 0.2 % 0.0 - 1.0 10/[address] HEMATOLOGY Segs-Bands # 0.8 K/CMM 1.5 - 8.1 10/31 [facility] HEMATOLOGY Eosinophils 0.2 % 0.0 - 4.0 10/31 [facility] HEMATOLOGY Monocytes 0.5 % 2.0 - 12.0 10/31 [facility] HEMATOLOGY Lymphocytes 95.1 % 20.0 - 10/31 40.0 [facility] HEMATOLOGY Segs 4.0 % 45.0 - 10/31 [place] 75.0 [facility] HEMATOLOGY INR 1.22 0.85 - 10/31 [place] 1.17 [facility] HEMATOLOGY PT 15.5 s 12.0 - 10/31 [facility] 14.7 [facility] HEMATOLOGY PTT 33.5 s 22.9 - 10/31 [facility] 35.8 [facility] PARATHYROID Ca Norm WB 1.16 1.05 - 10/31 [facility] PROFILE mMol/L 1. [facility] PARATHYROID Ca Ion WB 1.20 1.05 - 10/31 [facility] PROFILE mMol/L 1. [facility] BLOOD BANK FFP product Product available 10/31 [facility] (10/31/17 1:54 PM) [place] BLOOD BANK RBC product Product available 10/31 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 BLOOD BANK ABO/Rh O NEG 10/31 [facility] RESULTS [facility] BLOOD BANK Antibody Negative 10/31 [facility] RESULTS Scrn [facility] (10/31/17 5:29 AM) [place] CHEM PANEL A/G Ratio 0.7 0.7 - 1.6 10/[address] CHEM PANEL Globulin 4.7 g/dL 2.7 - 4.2 10/[address] CHEM PANEL Albumin Lvl 3.1 g/dL 3.5 - 5.0 10/[address] CHEM PANEL Total 7.8 g/dL 6.4 - 8.4 10/[address] CHEM PANEL AST 17 unit/L 0 - 37 10/[address] CHEM PANEL ALT 8 unit/L 0 - 65 10/[address] CHEM PANEL B/C Ratio 18 6 - 25 10/[address] CHEM PANEL Bili Total 0.6 mg/dL 0.2 - 1.3 10/[address] CHEM PANEL Alk Phos 65 unit/L 39 - 136 10/[address] HEMATOLOGY Smudge Moderate None Seen 10/31 [facility] [address] [place] [address] *ABN* Center (10/31/17 5:29 AM) HEMATOLOGY Anisocyte 1+ None Seen 10/31 [facility] [address] [place], [place] [address]ABN* Center (10/31/17 5:29 AM) HEMATOLOGY Basophils 0.1 % 0.0 - 1.0 10/[address] HEMATOLOGY Eosinophils 0.2 % 0.0 - 4.0 10/[address] CHEM PANEL AST 15 unit/L 0 - 37 10/[address] CHEM PANEL Bili Total 0.5 mg/dL 0.2 - 1.3 10/[address] CHEM PANEL Alk Phos 68 unit/L 39 - 136 10/[address] CHEM PANEL ALT 8 unit/L 0 - 65 10/[address] CHEM PANEL Albumin Lvl 3.0 g/dL 3.5 - 5.0 10/[address] CHEM PANEL Total 7.8 g/dL 6.4 - 8.4 10/[address] CHEM PANEL A/G Ratio 0.6 0.7 - 1.6 10/[address] CHEM PANEL Globulin 4.8 g/dL 2.7 - 4.2 10/[address] CHEM PANEL B/C Ratio 18 6 - 25 10/[address] URINE AND UA Sq Epi None Seen 10/[address] URINE AND UA Trans Epi RARE <=0 10/[address] URINE AND UA Nitrite Negative Negative 10/[address] (10/29/17 9:10 PM) [place] URINE AND UA 8.0 mg/dL 0.1 - 1.0 10/30 [facility] Urobilinogen /[address] [place] [address] URINE AND UA Blood Negative Negative 10/[address] (10/29/17 9:10 PM) [place] URINE AND UA Bili Negative Negative 10/[address] *NA* [place] (10/29/17 9:10 PM) URINE AND UA Ketones Negative Negative 10/30 [facility] mg/dL mg/dL /[address] [place] [address] URINE AND UA Bacteria Occasional None Seen 10/30 [facility] /HPF /HPF /[address] [place] [address] URINE AND UA RBC null 0 - 2 10/[address] URINE AND UA WBC 2 /HPF 0 - 5 10/[address] URINE AND UA Hyal Cast 3 /LPF 0 - 2 10/[address] URINE AND UA Mucus Few /LPF None Seen 10/30 [facility] STOOL /LPF /[address] [place] [address] URINE AND UA Protein 10 mg/dL Negative 10/30 [facility] mg/dL [address] [place] [address] URINE AND UA pH 6.0 5.0 - 8.0 10/[address] URINE AND UA Spec Grav 1.013 <=1.030 10/[address] URINE AND UA Turbidity Clear Clear 10/[address] (10/29/17 9:10 PM) [place] URINE AND UA Leuk Est Moderate Negative 10/[address] *ABN* Center (10/29/17 9:10 PM) URINE AND UA Color Yellow Yellow 10/[address] *NA* [place] (10/29/17 9:10 PM) URINE AND UA Glucose Negative Negative 10/30 [facility] STOOL mg/dL mg/dL /[address] [place] [address] CARDIAC BNP 223 pg/mL <=100 10/29 [facility] ENZYMES pg/mL /2017 [facility] HEMATOLOGY Bands 0.0 % 0.0 - 11.0 10/[address] HEMATOLOGY Atypical 11.0 % <=0.0 % 10/29 [facility] Lymphs /2017 [facility] HEMATOLOGY Anisocyte 1+ None Seen 10/29 [facility] Medical *ABN* Center (10/29/17 5:38 PM) HEMATOLOGY Eosinophils 0.0 K/CMM 0.0 - 0.5 10/29 [facility] # /2017 [facility] HEMATOLOGY Basophils 0.0 % 0.0 - 1.0 10/[address] HEMATOLOGY Eosinophils 0.0 % 0.0 - 4.0 10/[address] HEMATOLOGY Blasts 3.0 % <=0.0 % 10/[address] HEMATOLOGY Basophils # 0.0 K/CMM 0.0 - 0.2 10/[address] Chest 1view Chest 1view EXAM: XR CHEST 1 VIEW 10/29 - [facility] DX DX /2017 - [facility] This report was dictated by a Cashier Tube Room/Fellow. I have personally reviewed the images as Center well as the Resident's interpretation and agree with the findings. DATE: 10/29/2017 8:46 PM [employer]PER[employer]BLE Read by: Humberto Roche MD Resident: Humberto [...] POC 1.3 mg/dL 0.5 - 1.4 10/21 [facility] Creatinine /2017 Medical Center CHEM PANEL eGFR 39 10/21 Result Comment: The eGFR is calculated using the CKD-EPI formula. In most young, healthy individuals the eGFR will be >90 mL/ min/1.73m2. The eGFR declines with age. An eGFR of 60-89 may be normal in [facility] mL/min/1.7 /2016 some populations, particularly the elderly, for whom the CKD-EPI formula has not been extensively validated. Use of the eGFR is not recommended in the following populations: [address] Individuals with unstable creatinine concentrations, including [...] Heart/lua EXAM: CARDIAC COMPUTED TOMOGRAPHY ANGIOGRAPHY - [facility] estefany art ry art TAVR /2016 - [facility] TAVR CTA CTA Center DATE: 10/21/2017 Read by: Nasir Katz MD Dictated Date/time: 10/21/17 12:49 Electronically Signed by: Nasir Katz MD 10/21/17 12:53 FINAL REPORT INDICATION: Aortic stenosis. COMPARISON: None TECHNIQUE: Contrast imaging was performed on a [employer] Aquilion [address] scanner utilizing a [...] the presence of in stent restenosis or [place] & [place] flow-limiting stenosis in this vessel. LCx: Normal [...] lower limit of normal. Ejection Fraction: 51% NMT=551 cc ESV=72 cc SV=74 cc Other: AICD leads noted in the right heart chambers. Lung quijano to the extent visualized in limited study: Please see radiologist interpretation for extracardiac findings. IMPRESSION: Aortic valve disease. Coronary artery disease status post PCI. Chest/Abd/P Chest/Abd/Pe EXAM: CTA CHEST WITH AND WITHOUT CONTRAST 10/21 [facility] TAVR lvis TAVR /2017 - 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 [...] after dictation. BLOOD BANK Antibody Negative 05/29 [facility] RESULTS Scrn /2015 [facility] (05/29/16 6:13 AM) [place] BLOOD BANK ABO/Rh O NEG 05/29 [facility] RESULTS /2016 [facility] Center CHEM PANEL Magnesium 1.8 mg/dL 1.8 - 2.4 05/29 [facility] Lvl /2016 [facility] Center CHEM PANEL eGFR 26 05/29 Result Comment: The eGFR is calculated using the CKD-EPI formula. In most young, healthy individuals the eGFR will be >90 mL/ min/1.73m2. The eGFR declines with age. An eGFR of 60-89 may be normal in [facility] mL/min/1.7 /2016 some populations, particularly the elderly, for whom the CKD-EPI formula has not been extensively validated. Use of the eGFR is not recommended in the following populations: [address] Individuals with unstable creatinine concentrations, including [...] Lvl 9.3 mg/dL 8.5 - 10.5 05/29 [facility] CHEM PANEL Creatinine 1.83 mg/dL 0.50 - 05/29 [facility] Lvl 1.40 [facility] CHEM PANEL Glucose Lvl 121 mg/dL 70 - 99 05/29 [facility] CHEM PANEL Chloride Lvl 104 meq/L 95 - 109 05/29 [facility] CHEM PANEL Potassium 4.2 meq/L 3.5 - 5.1 05/29 [facility] CHEM PANEL CO2 26 meq/L 24 - 32 05/29 [facility] CHEM PANEL Sodium Lvl 139 meq/L 135 - 145 05/29 [facility] CHEM PANEL BUN 24 mg/dL 7 - 22 05/29 [facility] CHEM PANEL AGAP 13.2 meq/L 10.0 - 05/29 20.0 [facility] HEMATOLOGY Hgb 12.1 g/dL 12.0 - 05/29 16.0 [facility] HEMATOLOGY RBC 4.30 M/CMM 4.20 - 05/29 5.40 [facility] HEMATOLOGY Hct 36.9 % 36.0 - 05/29 [place] 48.0 [facility] HEMATOLOGY WBC 16.5 K/CMM 3.7 - 10.4 05/29 [facility] HEMATOLOGY RDW 15.7 % 11.5 - 05/29 14.5 [facility] HEMATOLOGY MCHC 32.8 g/dL 32.0 - 05/29 36.0 [facility] HEMATOLOGY MPV 8.8 fL 7.4 - 10.4 05/29 [facility] HEMATOLOGY Platelet 96 K/CMM 133 - 450 05/29 [facility] HEMATOLOGY MCH 28.2 pg 27.0 - 05/29 [place] 31.0 /2015 [facility] HEMATOLOGY MCV 85.9 fL 80.0 - 05/29 [place] 98.0 /2016 [facility] HEMATOLOGY PTT 30.9 s 22.9 - 05/29 [place] 35.8 /2016 [facility] HEMATOLOGY PT 14.4 s 12.0 - 08 [place] 14.7 /2015 [facility] HEMATOLOGY INR 1.09 0.85 - 05/29 [place] 1.17 /2015 [facility] HEMATOLOGY Segs-Bands # 3.0 K/CMM 1.5 - 8.1 05/29 [facility] HEMATOLOGY Basophils 0.8 % 0.0 - 1.0 05/29 [facility] HEMATOLOGY Eosinophils 1.2 % 0.0 - 4.0 05/29 [facility] HEMATOLOGY Lymphocytes 12.7 K/CMM 1.0 - 5.5 05/29 [place] [facility] HEMATOLOGY Basophils # 0.1 K/CMM 0.0 - 0.2 05/29 [facility] HEMATOLOGY Eosinophils 0.2 K/CMM 0.0 - 0.5 05/29 [place] /2015 [facility] HEMATOLOGY Monocytes # 0.5 K/CMM 0.0 - 0.8 05/29 [facility] HEMATOLOGY Segs 18.3 % 45.0 - 08 [place] 75.0 /2016 [facility] HEMATOLOGY Monocytes 2.9 % 2.0 - 12.0 05/29 [facility] HEMATOLOGY Lymphocytes 76.8 % 20.0 - 05/29 [place] 40.0 /2016 [facility] Spine Spine lumbar EXAM: XR LUMBAR SPINE 2 VIEWS 04/20 - OPID lumbar 2 or 2 or 3 views /2013 - [place] 3 views DATE: 2014-04-20 0953 hours Read [...] height loss at L4-L5 slightly progressed in th e interim, with new endplate sclerosis and [...] 1.6 mg/dL 1.8 - 2.4 01/20 LOW [facility] CHEMISTRY eGFR 44 01/20 NA 1Result Comment: The eGFR is calculated using the CKD-EPI formula. In most young, healthy individuals the eGFR will be > 90 mL/min/1.73m2. The eGFR declines with age. An eGFR of 60-89 may be normal in [facility] mL/min/1.7 some populations, particularly the elderly, for whom the CKD-EPI formula has not been extensively validated. Use of the eGFR is not recommended in the following populations: [address] Individuals with unstable creatinine concentrations, including [...] AGAP 8.5 meq/L 10.0 - 01/20 LOW [facility] 20. [facility] CHEMISTRY Calcium Lvl 9.4 mg/dL 8.5 - 10.5 01/20 Normal [facility] CHEMISTRY Chloride Lvl 106 meq/L 95 - 109 01/20 Normal [facility] CHEMISTRY CO2 28 meq/L 24 - 32 01/20 Normal [facility] CHEMISTRY Sodium Lvl 138 meq/L 135 - 145 01/20 Normal [facility] Center CHEMISTRY Potassium 4.5 meq/L 3.5 - 5.1 01/20 Normal [place] L[facility] CHEMISTRY Glucose Lvl 182 mg/dL 70 - 99 01/20 [facility] 3Interpretive Data: Adult reference range values reflect the clinical guidelines of the [place] [employer]. [facility] Center CHEMISTRY BUN 18 mg/dL 7 - 22 01/20 Normal [facility] Center CHEMISTRY Creatinine 1.2 mg/dL 0.5 - 1.4 01/20 Normal [facility] Lvl Medical Center HEMATOLOGY MCH 26.0 pg 27.0 - 01/20 LOW [place] 31.0 Medical Center HEMATOLOGY MCHC 31.9 g/dL 32.0 - 01/20 LOW [place] 36.0 [facility] HEMATOLOGY RDW 16.8 % 11.5 - 01/20 [facility] [place] 14.5 Medical Center HEMATOLOGY Hgb 12.5 g/dL 12.0 - 01/20 Normal [place] 16.0 [facility] Center HEMATOLOGY Hct 39.2 % 36.0 - 01/20 Normal [place] 48.0 /2012 Medical Center HEMATOLOGY MCV 81.6 fL 81.0 - 01/20 Normal [place] 99.0 /2012 Medical Center HEMATOLOGY WBC 7.0 K/CMM 3.7 - 10.4 01/20 Normal [facility] Center HEMATOLOGY RBC 4.81 M/CMM 4.20 - 01/20 Normal [place] 5.40 /2012 Medical Center HEMATOLOGY Platelet 91 K/CMM 133 - 450 01/20 LOW [facility] Center HEMATOLOGY MPV 9.3 fL 7.4 - 10.4 01/20 Normal [facility] HEMATOLOGY Basophils 2.0 % 0.0 - 1.0 01/20 [place] [facility] HEMATOLOGY Lymphocytes 15.2 % 20.0 - 01/20 LOW [place] 40.0 Medical Center HEMATOLOGY Segs 68.7 % 45.0 - 01/20 Normal [place] 75.0 /2012 Medical Center HEMATOLOGY Eosinophils 3.2 % 0.0 - 4.0 01/20 Normal [facility] Center HEMATOLOGY Monocytes 10.9 % 2.0 - 12.0 01/20 Normal Medical Center HEMATOLOGY Eosinophils 0.2 K/CMM 0.0 - 0.5 01/20 Normal [place] # /2012 [facility] Center HEMATOLOGY Monocytes # 0.8 K/CMM 0.0 - 0.8 01/20 Normal [facility] HEMATOLOGY Basophils # 0.1 K/CMM 0.0 - 0.2 01/20 Normal [facility] HEMATOLOGY Lymphocytes 1.1 K/CMM 1.0 - 5.5 01/20 Normal [facility] # [facility] HEMATOLOGY Segs-Bands # 4.8 K/CMM 1.5 - 8.1 01/20 Normal [facility] BLOOD BANK Antibody Negative 01/19 Normal [facility] RESULTS [facility] (01/19/2013 06:26:48) Center BLOOD BANK ABO/Rh O NEG 01/19 Unknown [facility] RESULTS [facility] CHEMISTRY Magnesium 1.4 mg/dL 1.8 - 2.4 01/19 LOW [facility] Lvl [facility] CHEMISTRY AGAP 10.1 meq/L 10.0 - 01/19 Normal [facility] 20.0 [facility] CHEMISTRY eGFR 44 01/19 NA 2Result Comment: The eGFR is calculated using the CKD-EPI formula. In most young, healthy individuals the eGFR will be > 90 mL/min/1.73m2. The eGFR declines with age. An eGFR of 60-89 may be normal in [facility] mL/min/1.7 some populations, particularly the elderly, for whom the CKD-EPI formula has not been extensively validated. Use of the eGFR is not recommended in the following populations: [place] [address] Center Individuals with unstable creatinine concentrations, including [...] 29 meq/L 24 - 32 01/19 Normal [facility] CHEMISTRY Calcium Lvl 9.5 mg/dL 8.5 - 10.5 01/19 Normal [facility] CHEMISTRY BUN 22 mg/dL 7 - 22 01/19 Normal [facility] CHEMISTRY Sodium Lvl 141 meq/L 135 - 145 01/19 Normal [facility] CHEMISTRY Potassium 4.1 meq/L 3.5 - 5.1 01/19 Normal [facility] Lvl /2012 [facility] Center CHEMISTRY Creatinine 1.2 mg/dL 0.5 - 1.4 01/19 Normal [facility] Lvl [facility] CHEMISTRY Glucose Lvl 78 mg/dL 70 - 99 01/19 Normal 4Interpretive Data: Adult reference range values reflect the clinical guidelines of the [place] [employer]. Medical Center CHEMISTRY Chloride Lvl 106 meq/L 95 - 109 01/19 Normal [facility] Center HEMATOLOGY PT 14.7 s 12.0 - 01/19 Normal [facility] 14.7 [facility] Center HEMATOLOGY PTT 32.3 s 22.9 - 01/19 Normal 6Interpretive [facility] 35.8 Data: Heparin [facility] The[facility] Center Range: 57 - 92 Seconds HEMATOLOGY INR 1.13 0.85 - 01/19 Normal 5Interpretive Data: RECOMMENDED RANGES FOR PROTIME INR: [facility] 1. 2.0-3.0 for most medical and surgical thromboembolic states. Medical 2.5-3.5 for artificial heart valves and recurrent embolism. Center INR SHOULD BE USED ONLY FOR PATIENTS ON STABLE ANTICOAGULANT THERAPY. HEMATOLOGY RBC 4.97 M/CMM 4.20 - 01/19 Normal [facility] 5.40 /2012 [facility] HEMATOLOGY Hgb 13.1 g/dL 12.0 - 01/19 Normal [facility] 16.0 [facility] HEMATOLOGY Platelet 89 K/CMM 133 - 450 01/19 LOW [facility] HEMATOLOGY MPV 8.8 fL 7.4 - 10.4 01/19 Normal [facility] HEMATOLOGY MCV 81.8 fL 81.0 - 01/19 Normal [facility] 99.0 [facility] HEMATOLOGY Hct 40.6 % 36.0 - 01/19 Normal [facility] 48.0 /2012 [facility] Center HEMATOLOGY RDW 17.2 % 11.5 - 01/19 HI [facility] 14.5 /2012 [facility] Center HEMATOLOGY MCH 26.3 pg 27.0 - 01/19 LOW [facility] 31.0 [facility] HEMATOLOGY MCHC 32.2 g/dL 32.0 - 01/19 Normal [facility] 36.0 /2012 [facility] HEMATOLOGY WBC 5.7 K/CMM 3.7 - 10.4 01/19 Normal [facility] Center HEMATOLOGY Basophils 0.6 % 0.0 - 1.0 01/19 Normal [facility] HEMATOLOGY Monocytes 11.5 % 2.0 - 12.0 01/19 Normal [facility] HEMATOLOGY Eosinophils 3.1 % 0.0 - 4.0 01/19 Normal [facility] HEMATOLOGY Monocytes # 0.7 K/CMM 0.0 - 0.8 01/19 Normal [facility] HEMATOLOGY Lymphocytes 1.9 K/CMM 1.0 - 5.5 01/19 Normal [place] /2012 [facility] Center HEMATOLOGY Segs-Bands # 2.9 K/CMM 1.5 - 8.1 01/19 Normal [facility] HEMATOLOGY Eosinophils 0.2 K/CMM 0.0 - 0.5 01/19 Normal [facility] /2012 [facility] HEMATOLOGY Lymphocytes 33.7 % 20.0 - 01/19 Normal [place] 40.0 [facility] HEMATOLOGY Segs 51.1 % 45.0 - 01/19 Normal [facility] 75.0 [facility] HEMATOLOGY PT 19.4 s 12.0 - 07/31 [facility] 14.7 [facility] Center HEMATOLOGY INR 1.62 0.85 - 07/31 [facility] 7Interpretive Data: RECOMMENDED RANGES FOR PROTIME INR: [facility] 1. 2.0-3.0 for most medical and surgical thromboembolic states. Medical 2.5-3.5 for artificial heart valves and recurrent embolism. Center INR SHOULD BE USED ONLY FOR PATIENTS ON STABLE ANTICOAGULANT THERAPY. BEDSIDE Gluc POC 148 mg/dL 70 - 99 07/31 [facility] 1Interpretive [facility] GLUCOSE Lifsc Data: Medical TESTING Center Upper Reportable Limit: 200 mg/dL. BEDSIDE Comment1 Notify 07/31 [facility] [place] GLUCOSE RN/ /2011 Medical TESTING Center BEDSIDE Gluc POC 192 mg/dL 70 - 99 07/31 [facility] 2Interpretive [facility] GLUCOSE Lifscn Data: Medical TESTING Center Upper Reportable Limit: 200 mg/dL. BEDSIDE Comment1 Notify 07/31 [facility] [place] GLUCOSE RN/ /2011 Medical TESTING Center BEDSIDE Gluc POC 106 mg/dL 70 - 99 07/30 [facility] 3Interpretive [facility] GLUCOSE Lifscn Data: Medical TESTING Center Upper Reportable Limit: 200 mg/dL. HEMATOLOGY PB Smear Peripheral 07/30 NA [facility] Path blood /2011 Medical smear Center shows hypochromi c anemia with anisopoiki locytsosis , a few elliptocyt es, no increase in schistocyt es, slight polychroma nohemy, mild thrombocyt openia. Impression : (1) no evidence of microangio pathic hemolysis, (2) RBC morphology is sugestive of iron deficiency anemia vs. anemia of chronic disease. CPT: 29532 HEMATOLOGY Platelet 94 K/CMM 133 - 450 10 [facility] HEMATOLOGY RDW 16.1 % 11.5 - 10 [facility] [place] 14.5 [facility] HEMATOLOGY MPV 9.5 fL 7.4 - 10.4 07/30 Normal [facility] HEMATOLOGY RBC 3.68 M/CMM 4.20 - 10 [facility] 5.40 /2011 [facility] HEMATOLOGY WBC 5.4 K/CMM 3.7 - 10.4 07/30 [facility] HEMATOLOGY MCV 89.6 fL 81.0 - 07/30 [facility] 99.0 [facility] HEMATOLOGY Hgb 11.0 g/dL 12.0 - 07/30 [facility] 16.0 [facility] HEMATOLOGY Hct 32.9 % 36.0 - 10 [facility] 48.0 /2011 [facility] HEMATOLOGY MCHC 33.5 g/dL 32.0 - 10 [facility] 36.0 [facility] HEMATOLOGY MCH 30.0 pg 27.0 - 10 [facility] 31.0 /2011 [facility] HEMATOLOGY Lymphocytes 19.2 % 20.0 - 10 [facility] 40.0 [facility] HEMATOLOGY Segs 65.5 % 45.0 - 10 [facility] 75.0 [facility] HEMATOLOGY Basophils 0.7 % 0.0 - 1.0 07/30 [facility] HEMATOLOGY Eosinophils 4.1 % 0.0 - 4.0 07/30 [facility] HEMATOLOGY Monocytes 10.5 % 2.0 - 12.0 07/30 [facility] HEMATOLOGY Monocytes # 0.6 K/CMM 0.0 - 0.8 07/30 [facility] HEMATOLOGY Lymphocytes 1.0 K/CMM 1.0 - 5.5 07/30 Normal [facility] # /2011 [facility] HEMATOLOGY Segs-Bands # 3.5 K/CMM 1.5 - 8.1 07/30 Normal [facility] HEMATOLOGY Basophils # 0.0 K/CMM 0.0 - 0.2 07/30 Normal [facility] HEMATOLOGY Eosinophils 0.2 K/CMM 0.0 - 0.5 07/30 Normal [facility] HEMATOLOGY PT 18.3 s 12.0 - 07/30 HI [facility] 14. Medical [place] HEMATOLOGY INR 1.50 0.85 - 07/30 [place] 8Interpretive Data: RECOMMENDED RANGES FOR PROTIME INR: [facility] . 2.0-3.0 for most medical and surgical thromboembolic states. Medical 2.5-3.5 for artificial heart valves and recurrent embolism. Center INR SHOULD BE USED ONLY FOR PATIENTS ON STABLE ANTICOAGULANT THERAPY. BEDSIDE Comment1 Notify 07/30 NA [facility] GLUCOSE RN/MD Medical [facility] Center HEMATOLOGY Monocytes # 0.5 K/CMM 0.0 - 0.8 07/30 Normal [facility] HEMATOLOGY Lymphocytes 1.0 K/CMM 1.0 - 5.5 07/30 Normal [facility] HEMATOLOGY Segs-Bands # 2.4 K/CMM 1.5 - 8.1 07/30 Normal [facility] HEMATOLOGY Eosinophils 0.1 K/CMM 0.0 - 0.5 07/30 Normal [facility] HEMATOLOGY Basophils # 0.0 K/CMM 0.0 - 0.2 07/30 Normal [facility] HEMATOLOGY Lymphocytes 23.7 % 20.0 - 07/30 [facility] 40.0 [facility] HEMATOLOGY Monocytes 11.9 % 2.0 - 12.0 07/30 Normal [facility] HEMATOLOGY Eosinophils 3.2 % 0.0 - 4.0 07/30 Normal [facility] HEMATOLOGY Segs 60.6 % 45.0 - 10 [facility] 75.0 [facility] HEMATOLOGY Basophils 0.6 % 0.0 - 1.0 07/30 Normal [facility] HEMATOLOGY PTT 40.0 s 22.9 - 07/30 [place] 10Interpretiv [facility] 35.8 /2011 e Data: [facility] Center Therapeutic Range: 57 - 92 Seconds HEMATOLOGY PT 19.4 s 12.0 - 07/30 [facility] 14. [facility] HEMATOLOGY INR 1.62 0.85 - 07/30 [facility] 9Interpretive Data: RECOMMENDED RANGES FOR PROTIME INR: [facility] 1.17 2.0-3.0 for most medical and surgical thromboembolic states. Medical 2.5-3.5 for artificial heart valves and recurrent embolism. Center INR SHOULD BE USED ONLY FOR PATIENTS ON STABLE ANTICOAGULANT THERAPY. HEMATOLOGY MCV 89.0 fL 81.0 - 10 Normal [facility] 99.0 [facility] HEMATOLOGY RDW 15.4 % 11.5 - 10 [facility] 14.5 [facility] HEMATOLOGY MCH 30.0 pg 27.0 - 07/30 Normal [facility] 31.0 [facility] HEMATOLOGY MCHC 33.8 g/dL 32.0 - 10 [facility] 36.0 [facility] HEMATOLOGY Platelet 81 K/CMM 133 - 450 07/30 [facility] HEMATOLOGY MPV 9.2 fL 7.4 - 10.4 07/30 Normal [facility] HEMATOLOGY RBC 3.50 M/CMM 4.20 - 10 LOW [facility] 5.40 /2011 [facility] HEMATOLOGY WBC 4.0 K/CMM 3.7 - 10.4 07/30 Normal [facility] HEMATOLOGY Hgb 10.5 g/dL 12.0 - 07/30 [facility] 16.0 [facility] HEMATOLOGY Hct 31.1 % 36.0 - 07/30 [facility] 48.0 [facility] IMMUNOLOGY Hep Bs Ag Negative Negative 07/30 [facility] [place] (07/29/2012 20:05:00) IMMUNOLOGY Hep A IgM Negative Negative 07/30 [facility] (07/29/2012 20:05:00) IMMUNOLOGY Hep B Core Negative Negative 07/30 [facility] (07/29/2012 20:05:00) IMMUNOLOGY Hep C Ab Negative Negative 07/30 [facility] (07/29/2012 20:05:00) CHEMISTRY AGAP 14.2 meq/L 10.0 - 07/29 Normal [facility] 20.0 [facility] CHEMISTRY Calcium Lvl 9.2 mg/dL 8.5 - 10.5 07/29 [facility] CHEMISTRY CO2 26 meq/L 24 - 32 07/29 Normal [facility] CHEMISTRY Glucose Lvl 143 mg/dL 70 - 99 07/29 [facility] 4Interpretive Data: Adult reference range values reflect the clinical guidelines of the [place] [employer]. Medical Center CHEMISTRY Chloride Lvl 108 meq/L 95 - 109 07/29 Normal [facility] CHEMISTRY Potassium 4.2 meq/L 3.5 - 5.1 07/29 Normal [facility] CHEMISTRY Sodium Lvl 144 meq/L 135 - 145 07/29 Normal [facility] CHEMISTRY Creatinine 0.9 mg/dL 0.5 - 1.4 07/29 Normal [facility] CHEMISTRY BUN 17 mg/dL 7 - 22 07/29 Normal [facility] HEMATOLOGY Eosinophils 3.8 % 0.0 - 4.0 07/29 Normal [facility] HEMATOLOGY Monocytes 12.4 % 2.0 - 12.0 07/29 [facility] HEMATOLOGY Lymphocytes 28.6 % 20.0 - 07/29 Normal [facility] 40.0 [facility] HEMATOLOGY Segs 54.6 % 45.0 - 07/29 [facility] 75.0 [facility] HEMATOLOGY Segs-Bands # 1.9 K/CMM 1.5 - 8.1 07/29 Normal [facility] HEMATOLOGY Basophils 0.6 % 0.0 - 1.0 07/29 Normal [facility] HEMATOLOGY Eosinophils 0.1 K/CMM 0.0 - 0.5 07/29 Normal [facility] HEMATOLOGY Monocytes # 0.4 K/CMM 0.0 - 0.8 07/29 Normal [facility] HEMATOLOGY Lymphocytes 1.0 K/CMM 1.0 - 5.5 07/29 Normal [facility] HEMATOLOGY Basophils # 0.0 K/CMM 0.0 - 0.2 07/29 Normal [facility] HEMATOLOGY RDW 15.3 % 11.5 - 07/29 [facility] 14.5 [facility] HEMATOLOGY Platelet 76 K/CMM 133 - 450 07/29 LOW [facility] HEMATOLOGY MPV 8.9 fL 7.4 - 10.4 07/29 Normal Medical Center HEMATOLOGY MCH 30.3 pg 27.0 - 10 Normal [facility] 31.0 /2011 Medical Center HEMATOLOGY WBC 3.4 K/CMM 3.7 - 10.4 10 LOW [facility] HEMATOLOGY RBC 3.45 M/CMM 4.20 - 10 [facility] 5.40 /2011 Medical Center HEMATOLOGY MCHC 34.0 g/dL 32.0 - 07/29 Normal [facility] 36.0 /2011 Medical Center HEMATOLOGY Hgb 10.4 g/dL 12.0 - 07/29 LOW [facility] 16.0 /2011 Medical Center HEMATOLOGY Hct 30.7 % 36.0 - 10 [facility] 48.0 /2011 Medical Center HEMATOLOGY MCV 88.9 fL 81.0 - 07/29 Normal [facility] 99.0 Medical Center CHEMISTRY Total CK 75 unit/L 12 - 191 07/27 Normal [facility] Center CHEMISTRY AGAP 16.3 meq/L 10.0 - 07/27 Normal [facility] 20.0 Medical Center CHEMISTRY CO2 26 meq/L 24 - 32 07/27 Normal [facility] Center CHEMISTRY Calcium Lvl 8.8 mg/dL 8.5 - 10.5 07/27 Normal [facility] Center CHEMISTRY Chloride Lvl 105 meq/L 95 - 109 07/27 Normal [facility] CHEMISTRY BUN 14 mg/dL 7 - 22 07/27 Normal [facility] CHEMISTRY Creatinine 0.8 mg/dL 0.5 - 1.4 07/27 Normal [facility] CHEMISTRY Glucose Lvl 152 mg/dL 70 - 99 07/27 [place] 5Interpretive Data: Adult reference range values reflect the clinical guidelines of the [place] [employer]. Medical Center CHEMISTRY Sodium Lvl 143 meq/L 135 - 145 07/27 Normal [facility] CHEMISTRY Potassium 4.3 meq/L 3.5 - 5.1 07/27 Normal [facility] CHEMISTRY CHD Risk 2.65 3.90 - 07/27 LOW [facility] 5.80 /2011 Medical Center CHEMISTRY LDL 36 mg/dL 0 - 129 07/27 Normal [facility] CHEMISTRY Trig 123 mg/dL 0 - 200 07/27 Normal [facility] CHEMISTRY HDL 37 mg/dL >=35 07/27 Normal [facility] CHEMISTRY Chol 98 mg/dL 120 - 200 07/27 LOW [facility] HEMATOLOGY PTT 43.9 s 22.9 - 07/24 [place] 11Interpretiv [facility] 35.8 /2011 e Data: [facility] Center Therapeutic Range: 57 - 92 Seconds CHEMISTRY A/G Ratio 0.9 0.7 - 1.6 07/22 Normal Medical Center CHEMISTRY Globulin 3.4 g/dL 2.0 - 4.0 07/22 Normal Medical Center CHEMISTRY B/C Ratio 15 6 - 25 07/22 Normal Medical [facility] CHEMISTRY AGAP 14.2 meq/L 10.0 - 07/22 Normal [facility] 20.0 Medical Center CHEMISTRY ALT 18 unit/L 0 - 65 07/22 Normal [facility] CHEMISTRY Alk Phos 82 unit/L 39 - 136 07/22 Normal [facility] CHEMISTRY Glucose Lvl 158 mg/dL 70 - 99 07/22 [place] 6Interpretive Data: Adult reference range values reflect the clinical guidelines of the [place] [employer]. Medical Center CHEMISTRY Albumin Lvl 2.9 g/dL 3.5 - 5.0 07/22 LOW [facility] CHEMISTRY Sodium Lvl 139 meq/L 135 - 145 07/22 Normal Medical [facility] CHEMISTRY Potassium 4.2 meq/L 3.5 - 5.1 07/22 Normal [facility] CHEMISTRY BUN 15 mg/dL 7 - 22 07/22 Normal Medical [facility] CHEMISTRY CO2 27 meq/L 24 - 32 07/22 Normal [facility] CHEMISTRY Calcium Lvl 9.1 mg/dL 8.5 - 10.5 07/22 Normal [facility] CHEMISTRY Creatinine 1.0 mg/dL 0.5 - 1.4 07/22 Normal [facility] CHEMISTRY AST 15 unit/L 0 - 37 07/22 Normal Medical [facility] CHEMISTRY Total 6.3 g/dL 6.4 - 8.4 07/22 LOW [facility] Center CHEMISTRY Chloride Lvl 102 meq/L 95 - 109 07/22 Normal Medical [facility] CHEMISTRY Bili Total 0.5 mg/dL 0.2 - 1.3 07/22 Normal Medical Center CHEMISTRY Magnesium 1.5 mg/dL 1.8 - 2.4 07/22 LOW [facility] Lvl [facility] CHEMISTRY Phosphorus 3.4 mg/dL 2.5 - 4.5 07/22 Normal [facility] HEMATOLOGY PTT 38.5 s 22.9 - 07/22 [place] 12Interpretiv [facility] 35.8 /2011 e Data: [facility] Center Therapeutic Range: 57 - 92 Seconds BEDSIDE Comment1 Notify 07/22 NA [facility] GLUCOSE RN/MD /2011 [facility] BEDSIDE Gluc POC 189 mg/dL 70 - 99 07/22 [facility] 1[facility] GLUCOSE Lifscn /2011 Data: [facility] Upper Reportable Limit: 200 mg/dL. URINALYSIS UA WBC 78 /HPF 0 - 5 07/22 [facility] URINALYSIS UA RBC 2 /HPF 0 - 2 07/22 Normal [facility]2011 [facility] URINALYSIS UA Sq Epi Many /LPF Few 07/22 [facility] *ABN* Center (07/21/2012 20:17:00) URINALYSIS UA [place] Yeast Occasional /HPF None Seen 07/22 [facility] *ABN* Center (07/21/2012 20:17:00) URINALYSIS UA Bacteria Few /HPF None Seen 07/22 [facility] *NA* Center (07/21/2012 20:17:00) URINALYSIS UA Hyal Cast 3 /LPF 0 - 2 07/22 [facility]2011 [facility] URINALYSIS UA Leuk Est Large Negative 07/22 [facility] *ABN* Center (07/21/2012 20:17:00) URINALYSIS UA Nitrite Negative Negative 07/22 Normal [facility] (07/21/2012 20:17:00) Center URINALYSIS UA 2.0 mg/dL 0.1 - 1.0 07/22 [facility] Urobilinogen /2011 [facility] URINALYSIS UA Blood Negative Negative 07/22 Normal [facility] (07/21/2012 20:17:00) Center URINALYSIS UA Bili Negative Negative 07/22 NA [facility] *NA* Center (07/21/2012 20:17:00) URINALYSIS UA pH 6.5 5.0 - 8.0 07/22 Normal [facility] URINALYSIS UA Turbidity Slight Clear 07/22 [facility] Medical *ABN* Center (07/21/2012 20:17:00) URINALYSIS UA Glucose Negative mg/dL Negative 07/22 [facility] Medical *NA* Center (07/21/2012 20:17:00) URINALYSIS UA Ketones Negative mg/dL Negative 07/22 NA Medical *NA* Center (07/21/2012 20:17:00) URINALYSIS UA Protein Negative mg/dL Negative 07/22 Normal [facility] (07/21/2012 20:17:00) Center URINALYSIS UA Color Yellow Yellow 07/22 NA Medical *NA* Center (07/21/2012 20:17:00) URINALYSIS UA Spec Grav 1.011 <=1.030 07/22 Normal [facility] Microbiolog Culture: 07/22 [facility] Medical Center BEDSIDE Gluc POC 158 mg/dL 70 - 99 07/21 [facility] 2[facility] GLUCOSE Lifvan Data: [facility] Upper Reportable Limit: 200 mg/dL. BEDSIDE Gluc POC 212 mg/dL 70 - 99 07/21 [place] 3Interpretive [facility] GLUCOSE Lifscn Data: [facility] Upper Reportable Limit: 200 mg/dL. BEDSIDE Comment1 Notify 07/21 [facility] GLUCOSE RN/ [facility] CHEMISTRY Ca Norm mgdL 4.80 mg/dL 4.65 - 07/21 Normal [facility] 5. Medical Center CHEMISTRY Ca Ion mgdL 4.60 mg/dL 4.65 - 07/21 LOW [facility] 5. Medical Center CHEMISTRY Ca Norm 1.20 1.16 - 07/21 Normal [place] mMol/L 1. Medical Center CHEMISTRY Ca Ion 1.15 1.16 - 07/21 LOW [place] mMol/L 1. Medical Center CHEMISTRY CO2 23 meq/L 24 - 07/21 LOW Medical Center CHEMISTRY Calcium Lvl 9.6 mg/dL 8.5 - 10.5 07/21 Normal Medical Center CHEMISTRY BUN 13 mg/dL 7 - 22 07/21 Normal Medical Center CHEMISTRY Sodium Lvl 141 meq/L 135 - 145 07/21 Normal Medical Center CHEMISTRY Glucose Lvl 156 mg/dL 70 - 99 07/21 [place] 4Interpretive Data: Adult reference range values reflect the clinical guidelines of the [place] [employer]. Medical Center CHEMISTRY Chloride Lvl 105 meq/L 95 - 109 07/21 Normal [facility] CHEMISTRY Potassium 4.0 meq/L 3.5 - 5.1 07/21 Normal [facility] CHEMISTRY Creatinine 0.6 mg/dL 0.5 - 1.4 07/21 Normal [facility] CHEMISTRY AGAP 17.0 meq/L 10.0 - 07/21 Normal [facility] 20. [facility] Center CHEMISTRY Phosphorus 3.3 mg/dL 2.5 - 4.5 07/21 Normal [facility] CHEMISTRY Magnesium 1.4 mg/dL 1.8 - 2.4 07/21 LOW [facility] HEMATOLOGY Monocytes # 0.5 K/CMM 0.0 - 0.8 07/21 Normal [facility] HEMATOLOGY Eosinophils 0.2 K/CMM 0.0 - 0.5 07/21 [facility] HEMATOLOGY Basophils # 0.0 K/CMM 0.0 - 0.2 07/21 Normal [facility] HEMATOLOGY Monocytes 8.8 % 2.0 - 12.0 07/21 [facility] HEMATOLOGY Eosinophils 2.5 % 0.0 - 4.0 07/21 [facility] HEMATOLOGY Basophils 0.6 % 0.0 - 1.0 07/21 Normal [facility] HEMATOLOGY Segs-Bands # 4.3 K/CMM 1.5 - 8.1 07/21 Normal [facility] HEMATOLOGY Lymphocytes 1.0 K/CMM 1.0 - 5.5 07/21 Normal [facility] HEMATOLOGY Segs 71.7 % 45.0 - 07/21 Normal [facility] 75.0 [facility] HEMATOLOGY Lymphocytes 16.4 % 20.0 - 07/21 [facility] [place] 40.0 [facility] HEMATOLOGY RBC 3.59 M/CMM 4.20 - 07/21 LOW [place] 5.40 Medical [place] HEMATOLOGY WBC 6.1 K/CMM 3.7 - 10.4 07/21 [facility] HEMATOLOGY RDW 14.5 % 11.5 - 07/21 Normal [place] 14.5 Medical Center HEMATOLOGY Platelet 137 K/CMM 133 - 450 07/21 Normal [facility] HEMATOLOGY MPV 8.4 fL 7.4 - 10.4 07/21 Normal [facility] HEMATOLOGY Hgb 10.7 g/dL 12.0 - 07/21 LOW [facility] 16.0 /2011 [facility] HEMATOLOGY Hct 32.0 % 36.0 - 07/21 LOW [facility] 48.0 /2011 [facility] HEMATOLOGY MCV 89.1 fL 81.0 - 07/21 Normal [facility] 99.0 /2011 [facility] HEMATOLOGY MCH 29.9 pg 27.0 - 07/21 Normal [facility] 31.0 [facility] HEMATOLOGY MCHC 33.5 g/dL 32.0 - 07/21 Normal [facility] 36.0 [facility] HEMATOLOGY INR 1.06 0.85 - 07/21 Normal 13Interpretive Data: RECOMMENDED RANGES FOR PROTIME INR: [facility] . 2.0-3.0 for most medical and surgical thromboembolic states. [facility] 2.5-3.5 for artificial heart valves and recurrent embolism. Center INR SHOULD BE USED ONLY FOR PATIENTS ON STABLE ANTICOAGULANT THERAPY. HEMATOLOGY PT 14.0 s 12.0 - 07/21 Normal [facility] 14.7 Medical Center BEDSIDE Comment1 Notify 07/21 NA [facility] GLUCOSE RN/MD /2011 [facility] CHEMISTRY Magnesium 1.7 mg/dL 1.8 - 2.4 07/20 [facility] Lvl /2011 [facility] Center CHEMISTRY Phosphorus 3.6 mg/dL 2.5 - 4.5 07/20 Normal [facility] Center CHEMISTRY Ca Norm mgdL 5.32 mg/dL 4.65 - 07/20 [facility] [place] 5. Medical Center CHEMISTRY Ca Ion mgdL 5.08 mg/dL 4.65 - 07/20 Normal [facility] 5. Medical Center CHEMISTRY Ca Ion 1.27 1.16 - 07/20 Normal [facility] mMol/L 1. Medical Center CHEMISTRY Ca Norm 1.33 1.16 - 07/20 [facility] [place] mMol/L 1. Medical Center CHEMISTRY AGAP 14.1 meq/L 10.0 - 07/20 Normal [facility] 20.0 Medical Center CHEMISTRY Glucose Lvl 147 mg/dL 70 - 99 07/20 [place] 5Interpretive Data: Adult reference range values reflect the clinical guidelines of the [place] [employer]. Medical Center CHEMISTRY BUN 13 mg/dL 7 - 22 07/20 Normal [facility] CHEMISTRY Potassium 4.1 meq/L 3.5 - 5.1 07/20 Normal [facility] CHEMISTRY Creatinine 0.9 mg/dL 0.5 - 1.4 07/20 Normal [facility] CHEMISTRY Sodium Lvl 138 meq/L 135 - 145 07/20 Normal [facility] CHEMISTRY Calcium Lvl 9.3 mg/dL 8.5 - 10.5 07/20 Normal [facility] CHEMISTRY CO2 27 meq/L 24 - 32 07/20 Normal [facility] CHEMISTRY Chloride Lvl 101 meq/L 95 - 109 07/20 Normal [facility] HEMATOLOGY Lymphocytes 14.3 % 20.0 - 07/20 LOW [facility] 40.0 [facility] HEMATOLOGY Segs 74.5 % 45.0 - 07/20 Normal [facility] 75.0 [facility] HEMATOLOGY Basophils 0.7 % 0.0 - 1.0 07/20 Normal [facility] HEMATOLOGY Monocytes 7.3 % 2.0 - 12.0 07/20 Normal [facility] HEMATOLOGY Eosinophils 3.2 % 0.0 - 4.0 07/20 Normal [facility] HEMATOLOGY Basophils # 0.1 K/CMM 0.0 - 0.2 07/20 Normal [facility] HEMATOLOGY Monocytes # 0.5 K/CMM 0.0 - 0.8 07/20 Normal [facility] HEMATOLOGY Eosinophils 0.2 K/CMM 0.0 - 0.5 07/20 Normal [facility] HEMATOLOGY Segs-Bands # 5.2 K/CMM 1.5 - 8.1 07/20 Normal [facility] HEMATOLOGY Lymphocytes 1.0 K/CMM 1.0 - 5.5 07/20 Normal [facility] HEMATOLOGY PTT 34.5 s 22.9 - 07/20 Normal 16Interpretiv [facility] 35.8 /2012 e Data: [facility] Center Therapeutic Range: 57 - 92 Seconds HEMATOLOGY PT 13.2 s 12.0 - 07/20 Normal [facility] 14.7 [facility] HEMATOLOGY INR 0.98 0.85 - 07/20 Normal 14Interpretive Data: RECOMMENDED RANGES FOR PROTIME INR: [facility] 1. 2.0-3.0 for most medical and surgical thromboembolic states. Medical 2.5-3.5 for artificial heart valves and recurrent embolism. Center INR SHOULD BE USED ONLY FOR PATIENTS ON STABLE ANTICOAGULANT THERAPY. HEMATOLOGY MCHC 33.4 g/dL 32.0 - 07/20 Normal [facility] 36.0 [facility] HEMATOLOGY MPV 8.3 fL 7.4 - 10.4 07/20 Normal [facility] HEMATOLOGY RDW 14.8 % 11.5 - 07/20 [facility] 14.5 [facility] HEMATOLOGY Platelet 151 K/CMM 133 - 450 07/20 Normal [facility] HEMATOLOGY MCH 30.1 pg 27.0 - 07/20 Normal [facility] 31.0 [facility] HEMATOLOGY Hct 34.2 % 36.0 - 07/20 LOW [facility] 48.0 [facility] HEMATOLOGY RBC 3.79 M/CMM 4.20 - 07/20 LOW [facility] 5.40 [facility] HEMATOLOGY Hgb 11.4 g/dL 12.0 - 07/20 LOW [facility] 16.0 [facility] HEMATOLOGY WBC 6.9 K/CMM 3.7 - 10.4 07/20 Normal [facility] HEMATOLOGY MCV 90.1 fL 81.0 - 07/20 Normal [facility] 99.0 [facility] CHEMISTRY Ca Norm 1.35 1.16 - 07/19 [facility] [place] mMol/L 1. [facility] CHEMISTRY Ca Ion mgdL 5.08 mg/dL 4.65 - 07/19 Normal [facility] 5. [facility] CHEMISTRY Ca Norm mgdL 5.40 mg/dL 4.65 - 07/19 [facility] [place] 5.20 [facility] CHEMISTRY Ca Ion 1.27 1.16 - 07/19 Normal [place] mMol/L 1. [facility] CHEMISTRY AGAP 14.1 meq/L 10.0 - 07/19 Normal [facility] 20.0 [facility] CHEMISTRY Glucose Lvl 163 mg/dL 70 - 99 07/19 [facility] 6Interpretive Data: Adult reference range values reflect the clinical guidelines of the [place] [employer]. Medical Center CHEMISTRY Calcium Lvl 9.3 mg/dL 8.5 - 10.5 07/19 Normal Medical Center CHEMISTRY CO2 26 meq/L 24 - 32 07/19 Normal Medical Center CHEMISTRY Chloride Lvl 102 meq/L 95 - 109 07/19 Normal Medical Center CHEMISTRY Potassium 4.1 meq/L 3.5 - 5.1 07/19 Normal [facility] CHEMISTRY BUN 14 mg/dL 7 - 22 07/19 Normal Medical Center CHEMISTRY Sodium Lvl 138 meq/L 135 - 145 07/19 Normal Medical Center CHEMISTRY Creatinine 0.9 mg/dL 0.5 - 1.4 07/19 Normal [facility] CHEMISTRY Phosphorus 2.9 mg/dL 2.5 - 4.5 07/19 Normal [facility] Center CHEMISTRY Magnesium 1.5 mg/dL 1.8 - 2.4 07/19 LOW [facility] Medical [place] CHEMISTRY Troponin-T 0.859 0.000 - 07/19 CRIT 7Result [place] ng/mL 0.100 Comment: [facility] Result(s) called to ya mckeon07/19/20 12 05:04:48 CDT at _ by tac. Read back OK. HEMATOLOGY Segs-Bands # 4.5 K/CMM 1.5 - 8.1 07/19 Normal [facility] HEMATOLOGY Eosinophils 0.2 K/CMM 0.0 - 0.5 07/19 Normal [facility] /2011 [facility] HEMATOLOGY Basophils # 0.0 K/CMM 0.0 - 0.2 07/19 Normal [facility] HEMATOLOGY Lymphocytes 0.8 K/CMM 1.0 - 5.5 07/19 LOW [facility] # /2011 [facility] Center HEMATOLOGY Monocytes # 0.5 K/CMM 0.0 - 0.8 07/19 Normal [facility] HEMATOLOGY Eosinophils 3.6 % 0.0 - 4.0 07/19 Normal [facility] HEMATOLOGY Segs 75.1 % 45.0 - 07/19 HI [place] 75.0 /2011 Medical Center HEMATOLOGY Lymphocytes 12.8 % 20.0 - 07/19 LOW [place] 40.0 Medical Center HEMATOLOGY Basophils 0.7 % 0.0 - 1.0 07/19 Normal [facility] HEMATOLOGY Monocytes 7.8 % 2.0 - 12.0 07/19 Normal [facility] HEMATOLOGY MPV 8.4 fL 7.4 - 10.4 07/19 Normal [facility] HEMATOLOGY RDW 14.7 % 11.5 - 07/19 [facility] 14.5 /2011 [facility] HEMATOLOGY Platelet 142 K/CMM 133 - 450 07/19 Normal [facility] HEMATOLOGY MCHC 34.0 g/dL 32.0 - 07/19 Normal [facility] 36.0 /2011 [facility] HEMATOLOGY WBC 6.0 K/CMM 3.7 - 10.4 07/19 Normal [facility] HEMATOLOGY RBC 3.51 M/CMM 4.20 - 07/19 [facility] 5.40 /2011 [facility] HEMATOLOGY MCV 88.0 fL 81.0 - 07/19 Normal [facility] 99.0 /2011 [facility] HEMATOLOGY Hgb 10.5 g/dL 12.0 - 07/19 [facility] 16.0 [facility] HEMATOLOGY MCH 29.9 pg 27.0 - 07/19 Normal [facility] 31.0 [facility] HEMATOLOGY Hct 30.9 % 36.0 - 07/19 LOW [facility] 48.0 [facility] HEMATOLOGY PTT 31.8 s 22.9 - 07/19 Normal 17Interpretiv [facility] 35.8 /2011 e Data: [facility] Therapeutic Range: 57 - 92 Seconds HEMATOLOGY PT 13.3 s 12.0 - 07/19 Normal [facility] 14.7 [facility] HEMATOLOGY INR 0.99 0.85 - 07/19 Normal 15Interpretive Data: RECOMMENDED RANGES FOR PROTIME INR: [facility] 1.17 2.0-3.0 for most medical and surgical thromboembolic states. Medical 2.5-3.5 for artificial heart valves and recurrent embolism. Center INR SHOULD BE USED ONLY FOR PATIENTS ON STABLE ANTICOAGULANT THERAPY. CHEMISTRY POC A Hct 30.0 % 36.0 - 07/18 [facility] 48.0 [facility] CHEMISTRY POC A O2 Sat 97.0 % 95.0 - 07/18 Normal [facility] 100.0 [facility] CHEMISTRY POC A Na 133 meq/L 135 - 145 07/18 [facility] CHEMISTRY POC A HCO3 27 mMol/L 22 - 26 07/18 [facility] Medical Center CHEMISTRY POC A BE 4 mMol/L -2-2 - 2 07/18 [place] [facility] CHEMISTRY POC A %FIO2 21.0 % 18.0 - 07/18 Normal [place] 100.0 /2011 Medical [place] CHEMISTRY POC A Ca Ion 1.21 1.16 - 07/18 Normal [place] mMol/L 1.30 Medical [place] CHEMISTRY POC A K 4.0 meq/L 3.5 - 5.1 07/18 Normal Medical Center CHEMISTRY POC A PCO2 36 mm[Hg] 35 - 45 07/18 Normal Medical Center CHEMISTRY POC A Source ART 07/18 NA Medical [place] CHEMISTRY POC A Temp 37.0 Erlinda 07/18 NA [facility] CHEMISTRY POC A pH 7.49 7.35 - 07/18 HI [place] 7.45 [facility] Center CHEMISTRY POC A PO2 81 mm[Hg] 80 - 100 07/18 Normal [facility] HEMATOLOGY PTT 34.9 s 22.9 - 07/18 Normal 18Interpretiv [place] 35.8 /2011 e Data: [facility] Center Therapeutic Range: 57 - 92 Seconds BLOOD BANK Antibody Negative 07/17 Normal [facility] RESULTS [facility] (07/17/2012 07:00:00) Center BLOOD BANK ABO/Rh O NEG 07/17 Unknown [place] [facility] CHEMISTRY Troponin-I 3.07 ng/mL 0.00 - 07/17 CRIT 10Result [place] 0.40 Comment: [facility] Critical Center Result(s) called to hossein guillory at 07/17/2012 04:01:26 CDT bygavino. Read back OK. CHEMISTRY A/G Ratio 0.9 0.7 - 1.6 07/17 Normal [facility] Center CHEMISTRY Globulin 2.9 g/dL 2.0 - 4.0 07/17 Normal [facility] CHEMISTRY Bili 0.3 mg/dL 0.0 - 1.0 07/17 Normal [place] [facility] CHEMISTRY AST 29 unit/L 0 - 37 07/17 Normal [facility] CHEMISTRY Bili Direct 0.2 mg/dL 0.0 - 0.3 07/17 Normal Medical [place] CHEMISTRY Alk Phos 66 unit/L 39 - 136 07/17 Normal Medical Center CHEMISTRY Total 5.6 g/dL 6.4 - 8.4 07/17 LOW Medical Center CHEMISTRY Bili Total 0.5 mg/dL 0.2 - 1.3 07/17 Normal Medical Center CHEMISTRY Albumin Lvl 2.7 g/dL 3.5 - 5.0 07/17 LOW Medical Center CHEMISTRY ALT 21 unit/L 0 - 65 07/17 Normal Medical Center CHEMISTRY Total CK 71 unit/L 12 - 07/17 Normal Medical Center CHEMISTRY Troponin-T 1.430 [...] back OK. CHEMISTRY Total CK 66 unit/L 07/16 Normal Medical Center CHEMISTRY Troponin-T 1.180 0.000 - 07/16 CRIT 9Result [place] ng/mL 0.100 /2011 Comment: Medical critical Center called x [phone] (busy line, 2x)07/16/2012 19:31:52 CDT, aamir guillory 07/16/2012 19:34:27 CDT by gissel. read back ok. CHEMISTRY Troponin-I 4.03 ng/mL 0.00 - 07/16 CRIT 12Result [place] 0.40 /2011 Comment: Medical Called to Center Stefani Hale at 07/16/2012 13:14:12 CDT called by dbf read back ok CHEMISTRY Total CK 70 unit/L 07/16 Normal [facility] Center CHEMISTRY CK MB Index 2.4 0.0 - 2.5 07/16 Normal Medical Center CHEMISTRY CK MB 2.3 ng/mL 0.5 - 3.6 07/16 Normal Medical Center CHEMISTRY CK MB Index 2.8 0.0 - 2.5 07/15 [place] [facility] CHEMISTRY CK MB 2.4 ng/mL 0.5 - 3.6 07/15 Normal Medical Center CHEMISTRY Total CK 86 unit/L 12 - 191 07/15 Normal [facility] Center CHEMISTRY Troponin-T 1.320 0.000 - 07/15 CRIT 4Result [place] ng/mL 0.100 /2011 Comment: Medical Critical Center Result(s) called to rachid ford at _2012 17:35:40 CDT by_ymnor. Read back OK. CHEMISTRY Troponin-I 4.55 ng/mL 0.00 - 07/15 CRIT 5Result [place] 0.40 /2011 Comment: [facility] Critical Center Result(s) called to rachid de guzman at 2012 17:53:14 CDT by nk. Read back OK. BEDSIDE Comment1 Notify 07/15 NA [facility] GLUCOSE RN/MD /2011 Medical TESTING Center BEDSIDE Gluc POC 172 mg/dL 70 - 99 07/15 [facility] 1Interpretive [facility] GLUCOSE Lifscn /2011 Data: Medical TESTING Center Upper Reportable Limit: 200 mg/dL. CHEMISTRY Phosphorus 2.8 mg/dL 2.5 - 4.5 07/15 Normal [facility] CHEMISTRY T4 Free 1.58 ng/dL 0.76 - 07/15 HI [facility] 1.46 /2011 [facility] Center CHEMISTRY TSH 1.120 0.360 - 07/15 Normal [facility] uIU/mL 3.740 /2011 [facility] Center CHEMISTRY Magnesium 1.7 mg/dL 1.8 - 2.4 07/15 LOW [facility] Lvl [facility] Center CHEMISTRY Hgb A1C 7.3 % 07/15 [...] 32 unit/L 0 - 37 07/15 Normal [facility] Center CHEMISTRY Total 5.9 g/dL 6.4 - 8.4 07/15 LOW [facility] CHEMISTRY Bili Total 0.6 mg/dL 0.2 - 1.3 07/15 Normal [facility] CHEMISTRY Calcium Lvl 8.8 mg/dL 8.5 - 10.5 07/15 Normal [facility] CHEMISTRY CO2 30 meq/L 24 - 32 07/15 Normal [facility] CHEMISTRY Glucose Lvl 125 mg/dL 70 - 99 07/15 [place] 3Interpretive Data: Adult reference range values reflect the clinical guidelines of the [place] [employer]. [facility] CHEMISTRY Alk Phos 71 unit/L 39 - 136 07/15 Normal [facility] CHEMISTRY Albumin Lvl 2.6 g/dL 3.5 - 5.0 07/15 LOW [facility] CHEMISTRY ALT 23 unit/L 0 - 65 07/15 Normal [facility] CHEMISTRY Chloride Lvl 99 meq/L 95 - 109 07/15 Normal [facility] CHEMISTRY Potassium 4.2 meq/L 3.5 - 5.1 07/15 Normal [facility] CHEMISTRY Sodium Lvl 139 meq/L 135 - 145 07/15 Normal [facility] CHEMISTRY Creatinine 0.8 mg/dL 0.5 - 1.4 07/15 Normal [facility] CHEMISTRY BUN 19 mg/dL 7 - 22 07/15 Normal [facility] CHEMISTRY A/G Ratio 0.8 0.7 - 1.6 07/15 Normal [facility] CHEMISTRY Globulin 3.3 g/dL 2.0 - 4.0 07/15 Normal [facility] CHEMISTRY B/C Ratio 24 6 - 25 07/15 Normal [facility] CHEMISTRY AGAP 14.2 meq/L 10.0 - 07/15 Normal [facility] 20.0 [facility] HEMATOLOGY Basophils # 0.0 K/CMM 0.0 - 0.2 07/15 Normal [facility] HEMATOLOGY Eosinophils 0.3 K/CMM 0.0 - 0.5 07/15 Normal [facility] # /2011 [facility] Center HEMATOLOGY Monocytes # 0.5 K/CMM 0.0 - 0.8 07/15 Normal [facility] HEMATOLOGY Lymphocytes 1.1 K/CMM 1.0 - 5.5 07/15 Normal [place] # /2012 Medical Center HEMATOLOGY Eosinophils 4.7 % 0.0 - 4.0 07/15 HI /2011 [facility] Center HEMATOLOGY Monocytes 7.7 % 2.0 - 12.0 07/15 Normal /2011 [facility] HEMATOLOGY Segs-Bands # 4.0 K/CMM 1.5 - 8.1 07/15 Normal /2011 [facility] HEMATOLOGY Basophils 0.5 % 0.0 - 1.0 07/15 Normal [facility] HEMATOLOGY Lymphocytes 18.3 % 20.0 - 07/15 LOW [place] 40.0 /2011 [facility] HEMATOLOGY Segs 68.8 % 45.0 - 07/15 Normal [place] 75.0 /2011 [facility] HEMATOLOGY PT 13.3 s 12.0 - 07/15 Normal [place] 14.7 [facility] HEMATOLOGY PTT 36.8 s 22.9 - 07/15 HI 8Interpretive [place] 35.8 /2011 Data: [facility] Range: 57 - 92 Seconds HEMATOLOGY INR 0.99 0.85 - 07/15 Normal 7Interpretive Data: RECOMMENDED RANGES FOR PROTIME INR: [facility] . 2.0-3.0 for most medical and surgical thromboembolic states. Medical 2.5-3.5 for artificial heart valves and recurrent embolism. Center INR SHOULD BE USED ONLY FOR PATIENTS ON STABLE ANTICOAGULANT THERAPY. HEMATOLOGY MCV 90.0 fL 81.0 - 07/15 Normal [facility] 99.0 /2011 [facility] HEMATOLOGY MCH 30.0 pg 27.0 - 07/15 Normal [facility] 31.0 [facility] HEMATOLOGY Hct 32.3 % 36.0 - 07/15 LOW [place] 48.0 /2011 [facility] HEMATOLOGY Hgb 10.8 g/dL 12.0 - 07/15 LOW [place] 16.0 /2011 [facility] HEMATOLOGY MPV 8.4 fL 7.4 - 10.4 07/15 Normal [facility] HEMATOLOGY MCHC 33.3 g/dL 32.0 - 07/15 Normal [place] 36.0 /2011 [facility] HEMATOLOGY Platelet 184 K/CMM 133 - 450 07/15 Normal /2011 [facility] Center Center HEMATOLOGY RDW 15.1 % 11.5 - 07/15 HI [place] 14.5 [facility] Center HEMATOLOGY RBC 3.59 M/CMM 4.20 - 07/15 LOW [facility] 5.40 /2011 [facility] HEMATOLOGY WBC 5.8 K/CMM 3.7 - 10.4 07/[address] IMMUNOLOGY Prealbumin 12.1 mg/dL 18.0 - 07/15 LOW [facility] 45.0 /2011 [facility] URINALYSIS UA <=1.0 0.1 - 1.0 07/15 [facility] Urobilinogen mg/dL /2011 Medical
*NA*< Center br/>(07/15 06:06:00) <sup> </sup> URINALYSIS UA Mucus Few /LPF None Seen 07/15 [facility]2011 [facility] *NA* [place] (2012 06:06:00) URINALYSIS UA Bacteria Occasional /HPF None Seen 07/15 [facility] *NA* [place] (2012 06:06:00) URINALYSIS UA WBC null 0 - 5 07/[address] URINALYSIS UA RBC 1 /HPF 0 - 2 07/15 Normal 2011 [facility] URINALYSIS UA Sq Epi Occasional /LPF Few 07/15 [facility] *NA* [place] (2012 06:06:00) URINALYSIS UA Leuk Est Negative Negative 07/15 Normal [facility]2011 [facility] (2012 06:06:00) Center URINALYSIS UA Glucose Negative mg/dL Negative 07/15 [facility] *NA* [place] (2012 06:06:00) URINALYSIS UA Blood Negative Negative 07/15 Normal [facility]2011 [facility] (2012 06:06:00) Center URINALYSIS UA Nitrite Negative Negative 07/[address] (2012 06:06:00) Center URINALYSIS UA Bili Negative Negative 07/15 [facility] *NA* [place] (2012 06:06:00) URINALYSIS UA Ketones Negative mg/dL Negative 07/15 [facility] *NA* [place] (2012 06:06:00) URINALYSIS UA pH 5.0 5.0 - 8.0 07/[address] URINALYSIS UA Spec Grav 1.011 <=1.030 07/15 Normal [facility] Center URINALYSIS UA Turbidity Clear Clear 07/15 Normal [facility] (2012 06:06:00) Center URINALYSIS UA Protein Negative mg/dL Negative 07/15 Normal [facility] (2012 06:06:00) Center URINALYSIS UA Color Yellow Yellow 07/15 NA Medical *NA* Center (2012 06:06:00) Microbiolog Culture: 07/15 [facility] y Urine Medical Center BEDSIDE Gluc POC 125 mg/dL 70 - 99 07/15 HI 2Interpretive [facility] GLUCOSE Lifscn Data: Medical TESTING Center Upper Reportable Limit: 200 mg/dL. BEDSIDE Comment1 Notify 07/15 NA [place] GLUCOSE RODRIGUE/ Medical TESTING Center BEDSIDE Gluc POC 171 mg/dL 70 - 99 07/15 HI 1Interpretive [facility] GLUCOSE Lifscn Data: Medical TESTING Center Upper Reportable Limit: 200 mg/dL. BEDSIDE Gluc POC 104 mg/dL 70 - 99 07/14 HI 2Interpretive [facility] GLUCOSE Lifscn Data: Medical TESTING Center Upper Reportable Limit: 200 mg/dL. BEDSIDE Comment1 Notify 07/14 NA [place] GLUCOSE RODRIGUE/ Medical TESTING Center BEDSIDE Gluc POC 171 mg/dL 70 - 99 07/14 HI 3Interpretive [facility] GLUCOSE Lifscn Data: Medical TESTING Center Upper Reportable Limit: 200 mg/dL. BEDSIDE Comment1 Notify 07/14 NA [place]STA /2011 Medical TESTING Center CHEMISTRY Magnesium 1.5 mg/dL 1.8 - 2.4 07/14 LOW [facility] CHEMISTRY AGAP 14.6 meq/L 10.0 - 07/14 Normal [facility] 20.0 Medical Center CHEMISTRY CO2 27 meq/L 24 - 32 07/14 Normal Medical Center CHEMISTRY Potassium 4.6 meq/L 3.5 - 5.1 07/14 Normal [facility] Medical Center CHEMISTRY Chloride Lvl 103 meq/L 95 - 109 07/14 Normal Medical Center CHEMISTRY BUN 25 mg/dL 7 - 22 07/14 HI Medical Center CHEMISTRY Glucose Lvl 143 mg/dL 70 - 99 07/14 HI 5Interpretive Data: Adult reference range values reflect the clinical guidelines of the [place] [employer]. Medical Center CHEMISTRY Calcium Lvl 9.2 mg/dL 8.5 - 10.5 07/14 Normal [facility] Center CHEMISTRY Creatinine 0.9 mg/dL 0.5 - 1.4 07/14 Normal [facility] Lvl Medical Center CHEMISTRY Sodium Lvl 140 meq/L 135 - 145 07/14 Normal Medical Center CHEMISTRY Phosphorus 2.8 mg/dL 2.5 - 4.5 07/14 Normal [facility] Center CHEMISTRY Ca Norm mgdL 5.44 mg/dL 4.65 - 07/14 [facility] [place] 5. [facility] Center CHEMISTRY Ca Norm 1.36 1.16 - 07/14 [facility] [place] mMol/L 1. Medical Center CHEMISTRY Ca Ion 1.31 1.16 - 07/14 [facility] [place] mMol/L 1.30 Medical Center CHEMISTRY Ca Ion mgdL 5.24 mg/dL 4.65 - 07/14 [facility] [place] 5. Medical Center HEMATOLOGY Basophils 0.3 % 0.0 - 1.0 07/14 Normal [facility] HEMATOLOGY Segs-Bands # 4.7 K/CMM 1.5 - 8.1 07/14 Normal [facility] HEMATOLOGY Monocytes 7.9 % 2.0 - 12.0 07/14 Normal [facility] Center HEMATOLOGY Eosinophils 3.7 % 0.0 - 4.0 07/14 Normal [facility] HEMATOLOGY Lymphocytes 0.9 K/CMM 1.0 - 5.5 07/14 LOW [place] # /2011 [facility] Center HEMATOLOGY Basophils # 0.0 K/CMM 0.0 - 0.2 07/14 Normal [facility] HEMATOLOGY Monocytes # 0.5 K/CMM 0.0 - 0.8 07/14 Normal [facility] HEMATOLOGY Eosinophils 0.2 K/CMM 0.0 - 0.5 07/14 Normal [place] # /2011 [facility] Center HEMATOLOGY Lymphocytes 14.8 % 20.0 - 07/14 [facility] [place] 40.0 /2011 Medical Center HEMATOLOGY Segs 73.3 % 45.0 - 07/14 Normal [place] 75.0 Medical Center HEMATOLOGY INR 1.02 0.85 - 07/14 Normal 16Interpretive Data: RECOMMENDED RANGES FOR PROTIME INR: [facility] . 2.0-3.0 for most medical and surgical thromboembolic states. Medical 2.5-3.5 for artificial heart valves and recurrent embolism. Center INR SHOULD BE USED ONLY FOR PATIENTS ON STABLE ANTICOAGULANT THERAPY. HEMATOLOGY PTT 30.5 s 22.9 - 07/14 Normal 19Interpretiv [facility] 35.8 /2011 e Data: [facility] Therapeutic Range: 57 - 92 Seconds HEMATOLOGY PT 13.6 s 12.0 - 07/14 Normal [facility] 14.7 /2011 [facility] HEMATOLOGY RDW 14.4 % 11.5 - 07/14 Normal [facility] 14.5 [facility] HEMATOLOGY MPV 8.6 fL 7.4 - 10.4 07/14 Normal [facility] HEMATOLOGY Platelet 154 K/CMM 133 - 450 07/14 Normal [facility] HEMATOLOGY Hgb 10.3 g/dL 12.0 - 07/14 LOW [facility] 16.0 /2011 [facility] HEMATOLOGY Hct 30.1 % 36.0 - 07/14 LOW [facility] 48.0 /2011 [facility] HEMATOLOGY MCHC 34.4 g/dL 32.0 - 07/14 Normal [facility] 36.0 /2011 [facility] HEMATOLOGY MCH 30.5 pg 27.0 - 07/14 Normal [facility] 31.0 /2011 [facility] HEMATOLOGY MCV 88.7 fL 81.0 - 07/14 Normal [facility] 99.0 /2011 [facility] HEMATOLOGY RBC 3.39 M/CMM 4.20 - 07/14 LOW [facility] 5.40 /2011 [facility] HEMATOLOGY WBC 6.4 K/CMM 3.7 - 10.4 07/14 Normal [facility] CHEMISTRY Magnesium 2.2 mg/dL 1.8 - 2.4 07/13 Normal [facility] Lvl [facility] CHEMISTRY CK MB Index 2.8 0.0 - 2.5 07/13 HI [facility] CHEMISTRY CK MB 2.9 ng/mL 0.5 - 3.6 07/13 Normal [facility] CHEMISTRY Total CK 104 unit/L 12 - 191 07/13 Normal [facility] CHEMISTRY Troponin-I 11.80 0.00 - 07/13 CRIT 11Result [facility] ng/mL 0.40 /2011 Comment: Medical Critical Center Result(s) called to perla ni at _07/13/2012 16:24:24 CDT by_nvj. Read back OK. CHEMISTRY Troponin-T 2.370 0.000 - 07/13 CRIT 8Result [place] ng/mL 0.100 /2011 Comment: Medical Critical Center Result(s) called to MS. DANGELO at 07/13/2012 16:34:32 CDT by MANINDER. Read back OK. CHEMISTRY CK MB Index 3.0 0.0 - 2.5 07/13 HI Medical Center CHEMISTRY CK MB 3.2 ng/mL 0.5 - 3.6 07/13 Normal Medical Center CHEMISTRY Total CK 108 unit/L 12 - 191 07/13 Normal Medical Center CHEMISTRY Troponin-I 13.40 0.00 - 07/13 CRIT 12Result [place] ng/mL 0.40 /2011 Comment: Medical Critical Center Result(s) called to perla ni at 07/13/2012 13:00:19 CDT_ by_lss. Read back OK. CHEMISTRY Troponin-T 3.090 0.000 - 07/13 CRIT 9Result [place] ng/mL 0.100 Comment: Medical Critical Center Result(s) called to Rosalinda Ely at 07/13/2012 13:06:41 CDT by RG. Read back OK. CHEMISTRY Magnesium 1.8 mg/dL 1.8 - 2.4 07/13 Normal Lv Medical Center CHEMISTRY Phosphorus 2.9 mg/dL 2.5 - 4.5 07/13 Normal Medical Center CHEMISTRY Creatinine 1.1 mg/dL 0.5 - 1.4 07/13 Normal [facility] Lvl Medical Center CHEMISTRY Sodium Lvl 140 meq/L 135 - 145 07/13 Normal Medical Center CHEMISTRY Glucose Lvl 138 mg/dL 70 - 99 07/13 HI 6Interpretive Data: Adult reference range values reflect the clinical guidelines of the [place] [employer]. Medical Center CHEMISTRY BUN 44 mg/dL 7 - 22 07/13 HI Medical Center CHEMISTRY Potassium 4.6 meq/L 3.5 - 5.1 07/13 Normal Lvl Medical Center CHEMISTRY Chloride Lvl 103 meq/L 95 - 109 07/13 Normal [facility] CHEMISTRY CO2 24 meq/L 24 - 32 07/13 Normal [facility] CHEMISTRY Calcium Lvl 8.9 mg/dL 8.5 - 10.5 07/13 Normal [facility] CHEMISTRY AGAP 17.6 meq/L 10.0 - 07/13 Normal [facility] 20.0 [facility] CHEMISTRY Ca Norm mgdL 4.56 mg/dL 4.65 - 07/13 LOW [facility] 5. [facility] CHEMISTRY Ca Ion mgdL 4.64 mg/dL 4.65 - 07/13 LOW [facility] 5. [facility] CHEMISTRY Ca Norm 1.14 1.16 - 07/13 LOW [facility] mMol/L 1. [facility] CHEMISTRY Ca Ion 1.16 1. - 07/13 Normal [facility] mMol/L 1. [facility] HEMATOLOGY INR 0.99 0.85 - 07/13 Normal 17Interpretive Data: RECOMMENDED RANGES FOR PROTIME INR: [facility] 11.12 2.0-3.0 for most medical and surgical thromboembolic states. Medical 2.5-3.5 for artificial heart valves and recurrent embolism. Center INR SHOULD BE USED ONLY FOR PATIENTS ON STABLE ANTICOAGULANT THERAPY. HEMATOLOGY PTT 28.1 s 22.9 - 07/13 Normal 20Interpretiv [facility] 35.8 /2011 e Data: [facility] Therapeutic Range: 57 - 92 Seconds HEMATOLOGY PT 13.3 s 12.0 - 07/13 Normal [facility] 14.7 [facility] HEMATOLOGY MPV 9.0 fL 7.4 - 10.4 07/13 Normal [facility] HEMATOLOGY MCH 30.0 pg 27.0 - 07/13 Normal [facility] 31.0 [facility] HEMATOLOGY MCHC 33.6 g/dL 32.0 - 07/13 Normal [facility] 36.0 [facility] HEMATOLOGY RDW 14.8 % 11.5 - 07/13 HI [facility] 14.5 [facility] HEMATOLOGY Platelet 127 K/CMM 133 - 450 07/13 LOW [facility] HEMATOLOGY Hct 32.2 % 36.0 - 07/13 LOW [facility] 48.0 /2011 [facility] HEMATOLOGY Hgb 10.8 g/dL 12.0 - 07/13 LOW [facility] 16.0 [facility] HEMATOLOGY RBC 3.61 M/CMM 4.20 - 07/13 LOW [place] 5.40 /2012 Medical Center HEMATOLOGY WBC 6.8 K/CMM 3.7 - 10.4 07/13 Normal [facility] Center HEMATOLOGY MCV 89.3 fL 81.0 - 07/13 Normal [place] 99.0 /2011 Medical Center HEMATOLOGY Eosinophils 3.0 % 0.0 - 4.0 07/13 Normal [facility] Center HEMATOLOGY Monocytes 9.4 % 2.0 - 12.0 07/13 Normal [facility] HEMATOLOGY Segs 74.2 % 45.0 - 07/13 Normal [place] 75.0 /2011 [facility] Center HEMATOLOGY Lymphocytes 13.0 % 20.0 - 07/13 [facility] [place] 40.0 /2011 [facility] HEMATOLOGY Basophils # 0.0 K/CMM 0.0 - 0.2 07/13 Normal [facility] HEMATOLOGY Eosinophils 0.2 K/CMM 0.0 - 0.5 07/13 Normal [place] /2011 [facility] Center HEMATOLOGY Lymphocytes 0.9 K/CMM 1.0 - 5.5 07/13 LOW [place] # /2011 [facility] HEMATOLOGY Monocytes # 0.6 K/CMM 0.0 - 0.8 07/13 Normal [facility] HEMATOLOGY Basophils 0.4 % 0.0 - 1.0 07/13 Normal [facility] HEMATOLOGY Segs-Bands # 5.0 K/CMM 1.5 - 8.1 07/13 Normal [facility] HEMATOLOGY Hgb 10.4 g/dL 12.0 - 07/12 [facility] [place] 16.0 /2011 [facility] Center HEMATOLOGY Hct 31.1 % 36.0 - 07/12 [facility] [place] 48.0 /2011 [facility] Center CHEMISTRY Troponin-T 4.890 0.000 - 07/12 CRIT 10Result [place] ng/mL 0.100 /2011 Comment: Medical Critical Center Result(s) called to Nettie washburn 07/12/2012 04:04:00 CDT_ by_mgm. Read back OK. (endorsed by [facility] Tech to release result while in break). CHEMISTRY Troponin-I 30.40 0.00 - 07/12 CRIT 13Result [place] ng/mL 0.40 /2011 Comment: Medical Critical Center Result(s) called to nettie chung_ at _07/12/2012 03:28:01 CDT by_lg. Read back OK. CHEMISTRY Total CK 335 unit/L 12 - 191 07/12 [facility] Medical Center CHEMISTRY CK MB Index 1.9 0.0 - 2.5 07/12 Normal Medical Center CHEMISTRY CK MB 6.5 ng/mL 0.5 - 3.6 07/12 [facility] Medical Center CHEMISTRY AGAP 16.2 meq/L 10.0 - 07/12 Normal [facility] 20.0 Medical Center CHEMISTRY Chloride Lvl 99 meq/L 95 - 109 07/12 Normal Medical Center CHEMISTRY CO2 23 meq/L 24 - 32 07/12 LOW Medical Center CHEMISTRY Calcium Lvl 8.8 mg/dL 8.5 - 10.5 07/12 Normal Medical Center CHEMISTRY Creatinine 1.9 mg/dL 0.5 - 1.4 07/12 [facility] Medical Center CHEMISTRY Sodium Lvl 134 meq/L 135 - 145 07/12 [facility] Medical Center CHEMISTRY Potassium 4.2 meq/L 3.5 - 5.1 07/12 Normal [facility] CHEMISTRY Glucose Lvl 167 mg/dL 70 - 99 07/12 HI 7Interpretive Data: Adult reference range values reflect the clinical guidelines of the [place] [employer]. Medical Center CHEMISTRY BUN 60 mg/dL 7 - 07/12 [facility] Medical Center CHEMISTRY Phosphorus 4.2 mg/dL 2.5 - 4.5 07/12 Normal [facility] Center CHEMISTRY Ca Norm mgdL 4.48 mg/dL 4.65 - 07/12 LOW [facility] 5. Medical Center CHEMISTRY Ca Ion mgdL 4.60 mg/dL 4.65 - 07/12 LOW [facility] 5. Medical Center CHEMISTRY Ca Norm 1.12 1.16 - 07/12 [facility] [place] mMol/L 1. Medical Center CHEMISTRY Ca Ion 1.15 1.16 - 07/12 LOW [place] mMol/L 1.30 Medical Center HEMATOLOGY PTT 28.2 s 22.9 - 07/12 Normal 21Interpretiv [facility] 35.8 /2012 e Data: Medical [facility] Center Therapeutic Range: 57 - 92 Seconds HEMATOLOGY PT 13.3 s 12.0 - 07/12 Normal [facility] 14.7 /2011 [facility] HEMATOLOGY INR 0.99 0.85 - 07/12 Normal 18Interpretive Data: RECOMMENDED RANGES FOR PROTIME INR: [facility] 1. 2.0-3.0 for most medical and surgical thromboembolic states. Medical 2.5-3.5 for artificial heart valves and recurrent embolism. Center INR SHOULD BE USED ONLY FOR PATIENTS ON STABLE ANTICOAGULANT THERAPY. HEMATOLOGY WBC 8.9 K/CMM 3.7 - 10.4 07/12 Normal [facility] HEMATOLOGY RBC 3.60 M/CMM 4.20 - 07/12 LOW [facility] 5.40 /2011 [facility] HEMATOLOGY MCV 88.5 fL 81.0 - 07/12 [facility] 99.0 [facility] HEMATOLOGY MCH 29.8 pg 27.0 - 07/12 [facility] 31.0 [facility] HEMATOLOGY MCHC 33.7 g/dL 32.0 - 07/12 [facility] 36.0 /2011 [facility] HEMATOLOGY MPV 8.8 fL 7.4 - 10.4 07/12 Normal [facility] HEMATOLOGY RDW 14.6 % 11.5 - 07/12 HI [facility] 14.5 /2011 [facility] HEMATOLOGY Platelet 143 K/CMM 133 - 450 07/12 Normal [facility] HEMATOLOGY Basophils # 0.0 K/CMM 0.0 - 0.2 07/12 Normal [facility] HEMATOLOGY Lymphocytes 11.6 % 20.0 - 07/12 LOW [facility] 40.0 /2011 [facility] HEMATOLOGY Monocytes 7.4 % 2.0 - 12.0 07/12 Normal [facility] HEMATOLOGY Eosinophils 3.1 % 0.0 - 4.0 07/12 Normal [facility] HEMATOLOGY Lymphocytes 1.0 K/CMM 1.0 - 5.5 07/12 Normal [facility] HEMATOLOGY Monocytes # 0.7 K/CMM 0.0 - 0.8 07/12 [facility] HEMATOLOGY Basophils 0.3 % 0.0 - 1.0 07/12 Normal [facility] HEMATOLOGY Eosinophils 0.3 K/CMM 0.0 - 0.5 07/12 Normal [facility] HEMATOLOGY Segs-Bands # 6.9 K/CMM 1.5 - 8.1 07/12 Normal [facility] HEMATOLOGY Segs 77.6 % 45.0 - 07/12 HI [place] 75.0 /2011 [facility] Center BLOOD BANK Antibody Negative 07/11 Normal [place] RESULTS [facility] (07/11/2012 15:15:00) Center BLOOD BANK ABO/Rh O NEG 07/11 Unknown [place] RESULTS [facility] BLOOD BANK RBC product Product available 07/11 Normal [place] RESULTS Medical (07/11/2012 12:54:00) Center CHEMISTRY eGFR [...] are reported in Aspirin Reaction Units (ARU). [facility] Plt Medical 350-549 ARU - Therapeutic range for [...] PRU reference range is 194 - 418. [facility] Plt Medical Post Drug Results: Lower PRU levels [...] Folate Lvl 17.7 ng/mL >=3.0 07/10 Normal [facility] Center CHEMISTRY Vitamin B12 420 pg/mL 254 - 1320 07/10 Normal [facility] CHEMISTRY FTI 2.7 07/10 NA [facility] CHEMISTRY U Opiate Scr Positive Negative 07/10 [facility] [place] (07/09/2012 21:33:00) CHEMISTRY U Benzodia Positive Negative 07/10 ABN [facility]* [place] (07/09/2012 21:33:00) CHEMISTRY U Phencyc Negative Negative 07/10 [facility] [place] (07/09/2012 21:33:00) CHEMISTRY UDS Note See Note [...] mg/dL CHEMISTRY U Cocaine Negative Negative 07/10 [facility] [place] (07/09/2012 21:33:00) CHEMISTRY U Cannab Scr Negative Negative 07/10 [facility] [place] (07/09/2012 21:33:00) CHEMISTRY U Amph Scr Negative Negative 07/10 [facility] [place] (07/09/2012 21:33:00) CHEMISTRY U Kaye Scr Negative Negative 07/10 [facility] [place] (07/09/2012 21:33:00) CHEMISTRY T3 Uptake 34 % 31 - 39 07/10 [facility] CHEMISTRY TSH 0.624 0.360 - 07/10 [facility] uIU/mL 3.740 [facility] CHEMISTRY T4 7.9 ug/dl 4.7 - 13.3 07/10 Normal [facility] CHEMISTRY CHD Risk 4.41 3.90 - 07/10 Normal [facility] 5.80 Medical [place] CHEMISTRY LDL 97 mg/dL 0 - 129 07/10 Normal [facility] CHEMISTRY Trig 147 mg/dL 0 - 200 07/10 Normal [facility] CHEMISTRY Chol 163 mg/dL 120 - 200 07/10 Normal [facility] CHEMISTRY HDL 37 mg/dL >=35 07/10 Normal [facility] CHEMISTRY Hgb A1C 7.8 % 07/10 NA 14Interpretive Data: HbA1C% eAG( mg/dL) Interpretation 6.0 [...] 4.2 meq/L 3.5 - 5.1 07/09 Normal [facility] CHEMISTRY POC A Ca Ion 1.18 1.16 - 07/09 Normal [facility] mMol/L 1.30 [facility] CHEMISTRY POC A LA 1.7 mMol/L 0.5 - 2.2 07/09 Normal [facility] CHEMISTRY POC A Hct 30.0 % 36.0 - 07/09 [facility] 48.0 [facility] CHEMISTRY POC A Na 131 meq/L 135 - 145 07/09 LOW [facility] CHEMISTRY POC A Glu 225 mg/dL 70 - 99 07/09 [facility] Medical [place] CHEMISTRY POC A PO2 123 mm[Hg] 80 - 100 07/09 [facility] CHEMISTRY POC A PCO2 33 mm[Hg] 35 - 45 07/09 LOW [facility] CHEMISTRY POC A O2 Sat 99.0 % 95.0 - 07/09 Normal [facility] 100.0 [facility] CHEMISTRY POC A HCO3 26 mMol/L 22 - 26 07/09 Normal [facility] CHEMISTRY POC A BE 3 mMol/L -2-2 - 2 07/09 [facility] CHEMISTRY POC A Temp 37.0 Erlinda 07/09 NA [facility] CHEMISTRY POC A Source ART 07/09 NA [facility] CHEMISTRY POC A pH 7.51 7.35 - 07/09 [facility] 7.45 [facility] CHEMISTRY Myoglobin 199 ng/mL 25 - 72 07/09 [facility] HEMATOLOGY Plt Morph Normal 07/09 Normal Medical (07/09/2012 17:24:00) Center HEMATOLOGY RBC Morph Normal 07/09 Normal Medical (07/09/2012 17:24:00) Center BEDSIDE Comment2 Notify 07/09 NA [facility] GLUCOSE RN/MD /2011 Medical TESTING Center BLOOD BANK Platelet Product available 07/09 Normal [facility] RESULTS Medical (07/09/2012 07:43:00) Center BLOOD BANK Antibody Negative 07/07 Normal [facility] RESULTS [facility] (07/07/2012 06:10:00) Center BLOOD BANK ABO/Rh O NEG 07/07 Unknown [facility] RESULTS [facility] CHEMISTRY A/G Ratio 1.3 0.7 - 1.6 07/06 Normal [facility] CHEMISTRY B/C Ratio 22 6 - 25 07/06 Normal [facility] CHEMISTRY Globulin 3.0 g/dL 2.0 - 4.0 07/06 Normal [facility] CHEMISTRY AST 19 unit/L 0 - 37 07/06 Normal [facility] CHEMISTRY Total 6.9 g/dL 6.4 - 8.4 07/06 Normal [facility] CHEMISTRY Bili Total 0.4 mg/dL 0.2 - 1.3 07/06 Normal [facility] CHEMISTRY ALT 24 unit/L 0 - 65 07/06 Normal [facility] CHEMISTRY Albumin Lvl 3.9 g/dL 3.5 - 5.0 07/06 Normal [facility] CHEMISTRY Alk Phos 68 unit/L 39 - 136 07/06 Normal [facility] Vital Signs Vital Sign Value Date Comments Source Systolic (mm Hg) 134 05/01/2018 [facility] Diastolic (mm Hg) 61 05/01/2018 [facility] Respitory Rate 20 05/01/2018 [facility] Systolic (mm Hg) 144 05/01/2018 [facility] Diastolic (mm Hg) 61 05/01/2018 [facility] Respitory Rate 20 05/01/2018 [facility] Systolic (mm Hg) 145 05/01/2018 [facility] [facility] Diastolic (mm Hg) 63 05/01/2018 [facility] Respitory Rate 20 05/01/2018 [facility] Temperature Oral (F) 99 F 05/01/2018 [facility] Temperature Oral (F) 96.9 F 05/01/2018 [facility] Temperature Oral (F) 99.2 F 05/01/2018 [facility] Weight 64.091 04/25/2018 [facility] BMI Calculated 25.03 04/25/2018 [facility] Height 160.02 cm 04/25/2018 [facility] Height 158.24 cm 04/22/2018 [facility] Weight 65.568 04/22/2018 [facility] BMI Calculated 26.19 04/22/2018 [facility] Temperature Oral (F) 97.9 F 04/22/2018 [facility] Respitory Rate 18 04/22/2018 [facility] Heart Rate 92 04/22/2018 [facility] Systolic (mm Hg) 107 04/22/2018 [facility] Diastolic (mm Hg) 64 04/22/2018 [facility] BMI Calculated 26.33 04/02/2018 [facility] Height 158.5 cm 04/02/2018 [facility] Systolic (mm Hg) 127 04/02/2018 [facility] Diastolic (mm Hg) 67 04/02/2018 [facility] Weight 66.136 04/02/2018 [facility] Heart Rate 56 04/02/2018 [facility] Respitory Rate 18 04/02/2018 [facility] Temperature Oral (F) 97.0 F 04/02/2018 [facility] Height 158.6 cm 04/02/2018 [facility] BMI Calculated 28.91 04/02/2018 [facility] Weight 72.727 04/02/2018 [facility] Systolic (mm Hg) 120 04/02/2018 [facility] Diastolic (mm Hg) 71 04/02/2018 [facility] Heart Rate 73 04/02/2018 [facility] Temperature Oral (F) 98.1 F 04/02/2018 [facility] Systolic (mm Hg) 138 03/19/2018 [facility] Diastolic (mm Hg) 71 03/19/2018 [facility] Temperature Oral (F) 78 F 03/19/2018 [facility] Heart Rate 75 03/19/2018 [facility] Respitory Rate 17 03/19/2018 [facility] BMI Calculated 25.55 03/19/2018 [facility] Height 158.6 cm 03/19/2018 [facility] Weight 64.273 03/19/2018 [facility] Height 158.6 cm 03/19/2018 [facility] BMI Calculated 25.5 03/19/2018 [facility] Weight 64.148 03/19/2018 [facility] Heart Rate 79 03/19/2018 [facility] Temperature Oral (F) 98.2 F 03/19/2018 [facility] Respitory Rate 18 03/19/2018 [facility] Systolic (mm Hg) 109 03/19/2018 [facility] Diastolic (mm Hg) 61 03/19/2018 [facility] Respitory Rate 16 03/02/2018 [facility] Heart Rate 84 03/02/2018 [facility] Systolic (mm Hg) 127 03/02/2018 [facility] Diastolic (mm Hg) 66 03/02/2018 [facility] Height 158.6 cm 03/02/2018 [facility] Weight 62.273 03/02/2018 [facility] BMI Calculated 24.76 03/02/2018 [facility] Systolic (mm Hg) 102 02/11/2018 [facility] Diastolic (mm Hg) 60 02/11/2018 [facility] Heart Rate 77 02/11/2018 [facility] Weight 60.938 02/11/2018 [facility] BMI Calculated 24.23 02/11/2018 [facility] Height 158.6 cm 02/11/2018 [facility] Temperature Oral (F) 98.2 F 02/11/2018 [facility] Respitory Rate 16 02/11/2018 [facility] Systolic (mm Hg) 136 02/06/2018 [facility] Diastolic (mm Hg) 79 02/06/2018 [facility] Temperature Oral (F) 97.1 F 02/06/2018 [facility] Respitory Rate 20 02/06/2018 [facility] Systolic (mm Hg) 121 02/06/2018 [facility] Diastolic (mm Hg) 56 02/06/2018 [facility] Respitory Rate 20 02/06/2018 [facility] Temperature Oral (F) 96.8 F 02/06/2018 [facility] Systolic (mm Hg) 115 02/06/2018 [facility] Diastolic (mm Hg) 58 02/06/2018 [facility] Respitory Rate 22 02/06/2018 [facility] Temperature Oral (F) 96.7 F 02/06/2018 [facility] Weight 63.273 01/27/2018 [facility] BMI Calculated 24.93 01/27/2018 [facility] Weight 63.835 01/27/2018 [facility] Height 160.02 cm 01/27/2018 [facility] Heart Rate 80 01/26/2018 [facility] Heart Rate 82 01/26/2018 [facility] Heart Rate 82 01/26/2018 [facility] Weight 63.636 01/26/2018 [facility] BMI Calculated 24.85 01/26/2018 [facility] Height 160.02 cm 01/26/2018 [facility] Height 158.6 cm 01/26/2018 [facility] BMI Calculated 25.41 01/26/2018 [facility] Weight 63.909 01/26/2018 [facility] Temperature Oral (F) 98.5 F 01/26/2018 [facility] Heart Rate 82 01/26/2018 [facility] Respitory Rate 16 01/26/2018 [facility] Systolic (mm Hg) 113 01/26/2018 [facility] Diastolic (mm Hg) 63 01/26/2018 [facility] BMI Calculated 24.31 01/19/2018 [facility] Weight 63.727 01/19/2018 [facility] Height 161.9 cm 01/19/2018 [facility] Temperature Oral (F) 97.7 F 01/19/2018 [facility] Respitory Rate 16 01/19/2018 [facility] Heart Rate 83 01/19/2018 [facility] Systolic (mm Hg) 104 01/19/2018 [facility] Diastolic (mm Hg) 51 01/19/2018 [facility] Weight 61.96 01/12/2018 [facility] BMI Calculated 24.2 01/12/2018 [facility] Height 160.02 cm 01/12/2018 [facility] Temperature Oral (F) 96.9 F 01/12/2018 [facility] Respitory Rate 18 01/12/2018 [facility] Heart Rate 80 01/12/2018 [facility] Systolic (mm Hg) 98 01/12/2018 [facility] Diastolic (mm Hg) 49 01/12/2018 [facility] Systolic (mm Hg) 120 01/05/2018 [facility] Diastolic (mm Hg) 58 01/05/2018 [facility] Respitory Rate 18 01/05/2018 [facility] Systolic (mm Hg) 122 01/05/2018 [facility] Diastolic (mm Hg) 60 01/05/2018 [facility] Systolic (mm Hg) 123 01/05/2018 [facility] Diastolic (mm Hg) 57 01/05/2018 [facility] Respitory Rate 18 01/05/2018 [facility] Temperature Oral (F) 97.4 F 01/05/2018 [facility] Respitory Rate 17 01/05/2018 [facility] Temperature Oral (F) 97.6 F 01/05/2018 [facility] Temperature Oral (F) 97.6 F 01/05/2018 [facility] BMI Calculated 25.03 01/01/2018 [facility] Weight 64.091 01/01/2018 [facility] Height 160.02 cm 01/01/2018 [facility] BMI Calculated 24.56 12/11/2017 [facility] Weight 62.898 12/11/2017 [facility] Height 160.02 cm 12/11/2017 [facility] Systolic (mm Hg) 125 12/11/2017 [facility] Diastolic (mm Hg) 63 12/11/2017 [facility] Temperature Oral (F) 97.1 F 12/11/2017 [facility] Heart Rate 97 12/11/2017 [facility] Respitory Rate 18 12/11/2017 [facility] Weight 64.182 12/08/2017 [facility] Height 160 cm 12/08/2017 [facility] BMI Calculated 25.07 12/08/2017 [facility] Systolic (mm Hg) 109 12/08/2017 [facility] Diastolic (mm Hg) 46 12/08/2017 [facility] Respitory Rate 18 12/08/2017 [facility] Heart Rate 84 12/08/2017 [facility] Temperature Oral (F) 98.1 F 12/08/2017 [facility] Heart Rate 64 11/29/2017 [facility] Systolic (mm Hg) 110 11/29/2017 [facility] Diastolic (mm Hg) 64 11/29/2017 [facility] Respitory Rate 18 11/29/2017 [facility] Temperature Oral (F) 98.2 F 11/29/2017 [facility] Heart Rate 66 11/29/2017 [facility] Respitory Rate 18 11/29/2017 [facility] Temperature Oral (F) 97.6 F 11/29/2017 [facility] Systolic (mm Hg) 109 11/29/2017 [facility] Diastolic (mm Hg) 58 11/29/2017 [facility] Systolic (mm Hg) 122 11/29/2017 [facility] Diastolic (mm Hg) 58 11/29/2017 [facility] Respitory Rate 20 11/29/2017 [facility] Temperature Oral (F) 98.5 F 11/29/2017 [facility] Heart Rate 74 11/29/2017 [facility] Weight 66.818 11/25/2017 [facility] BMI Calculated 27.3 11/20/2017 [facility] Weight 69.909 11/20/2017 [facility] Height 160.02 cm 11/20/2017 [facility] Systolic (mm Hg) 110 11/02/2017 [facility] Diastolic (mm Hg) 53 11/02/2017 [facility] Respitory Rate 32 11/02/2017 [facility] Systolic (mm Hg) 110 11/02/2017 [facility] Diastolic (mm Hg) 53 11/02/2017 [facility] Respitory Rate 23 11/02/2017 [facility] Systolic (mm Hg) 104 11/02/2017 [facility] Diastolic (mm Hg) 52 11/02/2017 [facility] Respitory Rate 23 11/02/2017 [facility] Temperature Oral (F) 98 F 11/02/2017 [facility] Temperature Oral (F) 98.6 F 11/01/2017 [facility] Height 158.24 cm 10/31/2017 [facility] Temperature Oral (F) 98.3 F 10/31/2017 [facility] Heart Rate 85 10/31/2017 [facility] Heart Rate 76 10/31/2017 [facility] Heart Rate 84 10/31/2017 [facility] BMI Calculated 28.94 10/29/2017 [facility] Height 158.24 cm 10/29/2017 [facility] Weight 72.455 10/29/2017 [facility] Weight 71.989 10/29/2017 [facility] BMI Calculated 28.75 10/29/2017 [facility] Heart Rate 80 10/29/2017 [facility] Systolic (mm Hg) 136 10/29/2017 [facility] Diastolic (mm Hg) 72 10/29/2017 [facility] Temperature Oral (F) 96.8 F 10/29/2017 [facility] Respitory Rate 18 10/29/2017 [facility] Height 158.24 cm 10/29/2017 [facility] Height 157.48 cm 10/21/2017 [facility] BMI Calculated 28.96 10/21/2017 [facility] Weight 71.818 10/21/2017 [facility] Systolic (mm Hg) 116 10/14/2017 [facility] Diastolic (mm Hg) 60 10/14/2017 [facility] Temperature Oral (F) 97.8 F 10/14/2017 [facility] Height 159.77 cm 10/14/2017 [facility] Weight 72.301 10/14/2017 [facility] BMI Calculated 28.32 10/14/2017 [facility] Respitory Rate 18 05/29/2016 [facility] Systolic (mm Hg) 156 05/29/2016 [facility] Diastolic (mm Hg) 73 05/29/2016 [facility] Systolic (mm Hg) 142 05/29/2016 [facility] Diastolic (mm Hg) 70 05/29/2016 [facility] Respitory Rate 19 05/29/2016 [facility] Systolic (mm Hg) 150 05/29/2016 [facility] Diastolic (mm Hg) 77 05/29/2016 [facility] Respitory Rate 19 05/29/2016 [facility] Height 165.1 cm 05/29/2016 [facility] Weight 78.636 05/29/2016 [facility] BMI Calculated 28.85 05/29/2016 [facility] Diastolic (mm Hg) 88 01/20/2013 [facility] Systolic (mm Hg) 163 01/20/2013 [facility] Temperature Oral (F) 98.2 F 01/20/2013 [facility] Systolic (mm Hg) 154 01/20/2013 [facility] Diastolic (mm Hg) 93 01/20/2013 [facility] Systolic (mm Hg) 172 01/20/2013 [facility] Diastolic (mm Hg) 78 01/20/2013 [facility] Temperature Oral (F) 98.2 F 01/20/2013 [facility] Respitory Rate 12 01/19/2013 [facility] Respitory Rate 12 01/19/2013 [facility] Respitory Rate 12 01/19/2013 [facility] Temperature Oral (F) 97.7 F 01/19/2013 [facility] Weight 81.818 01/19/2013 [facility] Height 165.1 cm 01/19/2013 [facility] Systolic (mm Hg) 108 07/31/2012 [facility] Diastolic (mm Hg) 60 07/31/2012 [facility] Heart Rate 86 07/31/2012 [facility] Systolic (mm Hg) 112 07/31/2012 [facility] Respitory Rate 20 07/31/2012 [facility] Heart Rate 83 07/31/2012 [facility] Temperature Oral (F) 98.3 F 07/31/2012 [facility] Systolic (mm Hg) 113 07/31/2012 [facility] Diastolic (mm Hg) 68 07/31/2012 [facility] Respitory Rate 20 07/31/2012 [facility] Heart Rate 89 07/31/2012 [facility] Temperature Oral (F) 99.2 F 07/31/2012 [facility] Temperature Oral (F) 99.0 F 07/31/2012 [facility] Respitory Rate 20 07/31/2012 [facility] Diastolic (mm Hg) 69 07/31/2012 [facility] Weight 86.364 07/22/2012 [facility] Height 162.56 cm 07/22/2012 [facility] Systolic (mm Hg) 118 07/21/2012 [facility] Diastolic (mm Hg) 64 07/21/2012 [facility] Temperature Oral (F) 98.7 F 07/21/2012 [facility] Systolic (mm Hg) 107 07/21/2012 [facility] Diastolic (mm Hg) 57 07/21/2012 [facility] Diastolic (mm Hg) 72 07/21/2012 [facility] Systolic (mm Hg) 130 07/21/2012 [facility] Temperature Oral (F) 97.8 F 07/21/2012 [facility] Temperature Oral (F) 98.5 F 07/21/2012 [facility] Respitory Rate 18 07/20/2012 [facility] Respitory Rate 18 07/20/2012 [facility] Respitory Rate 18 07/20/2012 [facility] Weight 67 07/16/2012 [facility] Heart Rate 82 2012 [facility] Height 165.1 cm 2012 [facility] Weight 82.273 2012 [facility] Diastolic (mm Hg) 84 2012 [facility] Systolic (mm Hg) 123 2012 [facility] Temperature Oral (F) 99.1 F 2012 [facility] Heart Rate 123 2012 [facility] Respitory Rate 18 2012 [facility] Heart Rate 61 2012 [facility] Diastolic (mm Hg) 83 2012 [facility] Systolic (mm Hg) 136 2012 [facility] Diastolic (mm Hg) 58 2012 [facility] Systolic (mm Hg) 111 2012 [facility] Heart Rate 89 2012 [facility] Respitory Rate 20 2012 [facility] Temperature Oral (F) 98.5 F 2012 [facility] Respitory Rate 20 2012 [facility] Temperature Oral (F) 98.5 F 2012 [facility] Height 165.10 cm 2012 [facility] Weight 82.273 2012 [facility] Diastolic (mm Hg) 55 2012 [facility] Systolic (mm Hg) 108 2012 [facility] Systolic (mm Hg) 122 2012 [facility] Diastolic (mm Hg) 55 2012 [facility] Temperature Oral (F) 98.4 F 2012 [facility] Diastolic (mm Hg) 74 07/14/2012 [facility] Systolic (mm Hg) 132 07/14/2012 [facility] Temperature Oral (F) 98.8 F 07/14/2012 [facility] Temperature Oral (F) 98.6 F 07/14/2012 [facility] Respitory Rate 18 07/13/2012 [facility] Respitory Rate 19 07/13/2012 [facility] Respitory Rate 17 07/13/2012 [facility] Heart Rate 98 07/09/2012 [facility] Heart Rate 99 07/09/2012 [facility] Heart Rate 80 07/09/2012 [facility] Weight 88.182 07/07/2012 [facility] Height 162.56 cm 07/07/2012 [facility] Weight 88.182 07/06/2012 [facility] Height 162.56 cm 07/06/2012 [facility] Weight 88.182 07/06/2012 [facility] Height 162.56 cm 07/06/2012 [facility] Encounters Location Location Encounter Encounter Reason Attending ADM DC Status Source Details Type Number For Provider Date Date Visit [facility] Inpatient [id number] LUMBAR SASCHA 07/09 07/14 Active [facility] 0 RADICULO REBEKA /2011 [facility] [place] [id number] MEILANI 07/14 07/15 Active 2 [facility] Inpatient [id number] LUMBAR JORGE 07/15 07/21 Active [facility] 3 RAD GAURANG /2011 [facility] IR [id number] SCI MEILANI 07/21 07/31 Active 9 [facility] WOJCIECH [id number] NADA GAUTAM 01/19 01/20 Active [facility] Outpt Diag [id number] Wagner 04/20 04/21 [facility] 2 [facility] Bedded [id number] Ali 05/29 05/29 [facility] Outpatient 2 Radha /2015 [facility] Outpatient [id number] Biswajit 10/14 10/15 [facility] [place] 4 [facility]patient [id number] Biswajit 10/21 10/22 [facility] [place] 6 Сергей [facility] Phone [id number] 10/28 10/[address] [facility] [address] [facility] Outpatient [id number] Biswajit 10/29 10/30 [facility] [place] 4 [facility] Inpatient [id number] Bisw[place]it 10/29 11/02 [facility] [place] 3 [facility] Inpatient [id number] Bis[place]it 11/19 11/29 [facility] [place] 0 [facility] Recurring [id number] David Benedict 12/08 01/07 [facility] [place] [facility] Oncology [facility] Outpatient [id number] Bisw[place]it 12/11 12/12 [facility] [place] 1 [facility] Inpatient [id number] Jim 01/01 01/06 [facility] [place] 6 Ramos /2017 [facility] Outpatient [id number] [place]it 01/12 01/13 [facility] [place] 4 [facility] Recurring [id number] David Benedict 01/19 02/18 [facility] [place] [facility] Oncology Center [facility] Outpt Diag [id number] David Benedict 01/21 01/22 [facility] Inpatient [id number] Gregor 01/26 02/06 [facility] [place] 8 [facility] Outpt Diag [id number] David Benedict 02/02 02/02 [facility] Outpatient Services [facility] Recurring [id number] David Benedict 03/02 04/01 [facility] [place] [facility] Oncology Center [facility] Outpt Diag [id number] David Benedict 04/02 04/03 [facility] Rec[facility]ring [id number] David Benedict 04/02 05/02 [facility] Oncology Center [facility] Outpatient [id number] John 04/02 04/03 [facility] 8 [facility] Outpatient [id number] John 04/22 04/23 [facility] Julian 7 [facility] Inpatient [id number] [place] 04/25 05/01 [facility] [place] 1 [facility] Procedures Procedure Code Date Perfomer Comments Source Biopsy[place] [address] 02/02/2018 [facility] retroperitoneal mass, Medical percutaneous needle Center 11/28/2017 [facility] Biopsy, bone, trocar, 76021 11/28/2017 [facility] or needle; deep (eg, Medical vertebral body, Center femur) [place], [place] [id number] 11/28/2017 [facility] retroperitoneal mass, Medical percutaneous needle [place] [id number] 11/25/2017 [facility] retroperitoneal mass, Medical percutaneous needle Center Heart valve [id number] 10/27/2017 [facility] replacement [facility] Heart valve [id number] 10/27/2017 [facility] replacement [place] Heart valve [id number] 10/27/2017 [facility] replacement [facility] Appendectomy [id number] [facility] Breast biopsy and [id number] [facility] related procedures [facility] [place] [facility] [id number] [facility] Cataract surgery [id number] [facility] Hysterectomy [id number] [facility] Ulnar nerve [id number] [facility] Appendectomy [id number] [facility] Breast biopsy and [id number] [facility] related procedures Medical Center Cardiac [id number] [facility] catheterization [facility] Cataract surgery [id number] [facility] Hysterectomy [id number] [facility] Ulnar nerve [id number] [facility] Appendectomy [id number] [facility] Breast biopsy and [id number] Center for related procedures [facility] Cardiac [id number] Center for catheterization [facility] Cataract surgery [id number] [facility] Hysterectomy [id number] [facility] Ulnar nerve [id number] Center for decompression [facility] Appendectomy [id number] [facility] [place] Breast biopsy and [id number] [facility] related procedures [facility] [id number] [facility] catheterization [place] Cataract surgery [id number] [facility] [place] Hysterectomy [id number] [facility] [place] Ulnar nerve [id number] [facility] decompression [place] Appendectomy [id number] [facility] Breast biopsy and [id number] [facility] related procedures [facility] Cardiac [id number] [facility] catheterization [facility] Cataract surgery [id number] [facility] Hysterectomy [id number] [facility] Ulnar nerve [id number] [facility] decompression [facility]
--- OUTSIDE RECORDS SUMMARY | 2018-10-26 13:32 | XMS REPORT | CCD ---
:1935 Author Organization [facility] Care Team Providers Name Role Phone Morgan [...] mg, 1 supp, Route: 07/07/2012 07/14/2012 Discontinued [place], Drug form: SUPP, Daily, Dosing Weight 88.182, [...] Results BEDSIDE GLUCOSE TESTING Most recent to [facility] 1 2 3 [Reference Range]: Gluc [...] 200 mg/dL.BLOOD BANK RESULTS Most recent to [facility] [Reference 1 2 3 Range]: ABO/Rh [...] values reflect the clinical guidelines of the [place] [employer].6Interpretive Data: Adult reference range values reflect the clinical guidelines of the [place] [employer].7Interpretive Data: Adult reference range values reflect the clinical guidelines of the [place] [employer].8Result Comment: Critical Result(s) called to [...] 10.0 240 Poor Control, take action to [id number] Data: Drugs reported as positive have not [...] Data: Heparin Therapeutic Range: 57 - 92 [id number] Data: Heparin Therapeutic Range: 57 - 92 [id number] Data: Heparin Therapeutic Range: 57 - 92 [id number] Data: Test results are reported in Aspirin [...]
--- OUTSIDE RECORDS SUMMARY | 2018-10-26 13:32 | XMS REPORT | CCD ---
:1935 Author Organization [facility] Care Team Providers Name Role Phone Ramone Birch Consulting Provider [phone] Tod Doran Consulting Provider Allergies, Adverse Reactions, [...] mg, 1 supp, Route: 07/14/2012 2012 Discontinued [place], Drug form: SUPP, Daily, Dosing [...] Duration: 30 day, Stop date: 08/13/12 17:48:00 [place] 10/325 oral tablet 1 tab, Route: PO, [...] Duration: 30 day, Stop date: 08/14/12 9:09:00 [place] 10/325 oral tablet 1 tab, PO, Q4H, [...] values reflect the clinical guidelines of the [place] [employer].4Result Comment: Critical Result(s) called to [...] Catheterized FREE TEXT SOURCE: PRELIMINARY REPORTS Preliminary [id number],000/cfu/ml Gram Negative Rods , Identification And Sensitivity Pending
--- OUTSIDE RECORDS SUMMARY | 2018-10-26 13:33 | XMS REPORT | CCD ---
:1935 Author Organization [facility] Care Team Providers Name Role Phone Tod Doran Consulting Provider Allergies, Adverse Reactions, Alerts Substance Reaction Status HYDROcodone-Pseudoephedrine HCl Active Problem List Condition Effective Dates Status CAD - Coronary artery disease Active DM - Diabetes mellitus Active Heart attack Active Laminectomy Active O/E - pain Active Stented artery Active Medications Medication Instructions Start Date End Date Status [place] 10/325 oral tablet 1 tab, PO, BID, [...] Duration: 30 day, Stop date: 08/20/12 14:56:00 [place] 10/325 oral tablet 1 tab, Route: PO, [...] Results BEDSIDE GLUCOSE TESTING Most recent to [facility] 1 2 3 [Reference Range]: [...] Reportable Limit: 200 mg/dL.URINALYSIS Most recent to [facility] [Reference Range]: 1 2 3 UA [...] /LPF] 3 /LPF *HI* (07/21/2012 20:17:00) UA [place] Yeast [None Seen /HPF] Occasional /HPF *ABN* [...] the clinical guidelines of the [place] [employer].5Interpretive Data: Adult reference range values reflect the clinical guidelines of the [place] [employer].6Interpretive Data: Adult reference range values reflect the clinical guidelines of the [place] [employer].HEMATOLOGY Most recent to oldest 1 [...] anemia vs. anemia of chronic disease. CPT: 53612 *NA* (07/30/2012 14:00:00) PT [12.0-14.7 seconds] 19.4 [...] Data: Heparin Therapeutic Range: 57 - 92 [id number] Data: Heparin Therapeutic Range: 57 - 92 [id number] Data: Heparin Therapeutic Range: 57 - 92 [...]
--- OUTSIDE RECORDS SUMMARY | 2018-10-26 13:33 | XMS REPORT | CCD ---
:1935 Author Organization [facility] [place] Care Team Providers Name Role Phone Wagner [...]
--- OUTSIDE RECORDS SUMMARY | 2018-10-26 13:33 | XMS REPORT | CCD ---
:1935 Author Organization [facility] Care Team Providers Name Role Phone [...] Duration: 30 day, Stop date: 08/14/12 9:00:00 [place] 10/325 oral tablet 1 tab, Route: PO, [...] values reflect the clinical guidelines of the [place] [employer].5Interpretive Data: Adult reference range values reflect the clinical guidelines of the [place] [employer].6Interpretive Data: Adult reference range values reflect the clinical guidelines of the [place] [employer].7Result Comment: Critical Result(s) called to ya mckeon07/19/2012 05:04:48 CDT at _ by rahel. Read back OK.8Result Comment : Critical Result(s) called to hossein guillory at 07/17/2012 04:02:28 CDT bygavino. Read back OK.9Result Comment: [place] [phone] (busy line, 2x)07/16/2012 19:31:52 CDT, aamir guillory [...] Data: Heparin Therapeutic Range: 57 - 92 [id number] Data: Heparin Therapeutic Range: 57 - 92 [id number] Data: Heparin Therapeutic Range: 57 - 92 Seconds
--- OUTSIDE RECORDS SUMMARY | 2018-10-26 13:34 | XMS REPORT | CCD ---
:1935 Author Organization [facility] Care Team Providers Name Role Phone Gautam, [place] Juan Referring Provider Allergies, Adverse Reactions, Alerts [...] tablet Daily, 30 tab, Substitution Allowed, TAB [place] 5/325 oral tablet 1 tab, Route: PO, [...] Duration: 30 day, Stop date: 02/18/13 9:00:00 [place] 5/325 oral tablet 1 tab, PO, Q4H, [...] values reflect the clinical guidelines of the [place] [employer].4Interpretive Data: Adult reference range values reflect the clinical guidelines of the [place] [employer].HEMATOLOGY Most recent to oldest [Reference [...]
[2018-10-26] MEDS ORDERED: MORPHINE 4 MG/ML SYR ONE ×2 (14:27→16:56)
[2018-10-26 14:36] LABS: Absolute Lymphocytes (CBC) 44.3 K/uL (0.7-4.9); Absolute Monocytes 0.4 K/uL (0.1-1.3); Absolute Neutrophil 1.8 K/uL (1.8-8.0); Basophils % 0.5 % (0-1.3); Eosinophils % 0.3 % (0-4.4); Hematocrit 25.6 % (36.0-45.0); Lymphocytes % 94.5 % (15.3-44.8); MPV 10.5 fL (7.6-11.3); Monocytes % 0.8 % (3.3-12.3); RBC Red Blood Cell Count 2.35 M/uL (3.86-4.86)
[2018-10-26 15:21] LABS: Potassium 5.6 mmol/L (3.5-5.1)
[2018-10-26 15:30] LABS: Platelet Estimate DECR
[2018-10-26 15:31] LABS: Anisocytosis 1+; Blood Morphology Comment NOTED (NOT SEEN); Macrocytosis 1+
[2018-10-26 15:35] LABS: Smudge Cells PRESENT
--- NOTE | 2018-10-26 16:21 | EDPHYS ---
Physician Documentation [facility] Name: Julia Groves Age: 83 yrs Sex: Female : 1935 Arrival Date: 10/26/2018 Time: 12:32 Bed 27 Private MD: Melva Suarez C ED Physician Marco Antonio Lemon HPI: 10/26 14:49 This 83 yrs old Female presents to ER via Ambulatory with complaints of Leg rn Pain. 14:49 The patient presents with pain. The complaints affect the. Onset: The symptoms/episode rn began/occurred 3 week(s) ago. Severity of symptoms: At their worst the symptoms were moderate, in the emergency department the symptoms are unchanged. The patient has experienced similar episodes in the past. Reports bilateral leg pain, ankles/feet, recently treated for 2 weeks of cellulitis that has improved, no fever, no trauma, had neg u/s of legs when admitted for this, told had good blood flow. Has CLL, and reports atleast 3 weeks of pain to both legs/feet/ankles, that makes it hard to walk and touch. . Historical: - Allergies: 12:39 No Known Allergies; hj - Home Meds: 12:39 aspirin 81 mg Oral chew 1 tab once daily [Active]; bumetanide 1 mg Oral tab 1 tab 2 hj times per day [Active]; carvedilol 12.5 mg Oral tab 1 tab 2 times per day [Active]; clopidogrel 75 mg Oral tab 1 tab once daily [Active]; cyanocobalamin (vitamin B-12) 500 mcg Oral tab daily [Active]; duloxetine 30 mg Oral cpDR 1 cap once daily [Active]; glimepiride 4 mg Oral tab 1 tab twice daily [Active]; Insulin Glargine 11Units Sub-Q nightly [Active]; Insulin Glargine 300 units/mL Sub-Q 10 unit nightly [Active]; Levemir 100 unit/mL subcutaneous soln [Active]; magnesium oxide 250 mg Oral tab [Active]; metformin 500 mg Oral tab 1 tab 2 times per day [Active]; pantoprazole 40 mg Oral TbEC 1 tab once daily [Active]; potassium chloride 20 mEq Oral TbER 1 tab 2 times per day [Active]; valsartan 40 mg Oral tab 1 tab 2 times per day [Active]; - PMHx: 12:39 Anemia; CAD; CLL; Lukemia; CONSTAPATION; Diabetes - IDDM; GERD; Heart Murmur; heart hj valve replacement; Hypertension; laminectomy, lower back pain; Myocardial infarction; pacemaker/defibrillator; spinal stenosis; systolic heart failure; - PSHx: 12:39 heart valve replacement; hj - Immunization history:: Adult Immunizations up to date. - Social history:: Smoking status: Patient/guardian denies using tobacco, Patient/guardian denies using alcohol. - Ebola Screening: : Patient negative for fever greater than or equal to 101.5 degrees Fahrenheit, and additional compatible Ebola Virus Disease symptoms Patient denies exposure to infectious person Patient denies travel to an Ebola-affected area in the 21 days before illness onset. - Family history:: not pertinent. - Hospitalizations: : The patient was recently seen at [facility]. ROS: 14:49 Constitutional: Negative for fever, chills, and weight loss, Eyes: Negative for injury, rn pain, redness, and discharge, Cardiovascular: Negative for chest pain, palpitations, and edema, Respiratory: Negative for shortness of breath, cough, wheezing, and pleuritic chest pain, Abdomen/GI: Negative for abdominal pain, nausea, vomiting, diarrhea, and constipation, Back: Negative for injury and pain, MS/Extremity: + leg pain Skin: + skin discoloration to both ankles/legs Neuro: Negative for headache, weakness, numbness, tingling, and seizure. Exam: 14:49 Constitutional: This is a well developed, well nourished patient who is awake, alert, rn and in no acute distress. Head/Face: Normocephalic, atraumatic. Neck: Trachea midline, + 2-3cm firm mass palpated left neck/submandibular region Abdomen/GI: soft, non-tender Skin: Warm, dry, no fluctuance, no warm erythema, + chronic skin changes of ankle areas and pre-tibial regions MS/ Extremity: Pulses equal, no cyanosis. Neurovascular intact. Full, normal range of motion. Equal circumference. Neuro: Awake and alert, GCS 15, oriented to person, place, time, and situation. Cranial nerves II-XII grossly intact. Motor strength 5/5 in all extremities. Sensory grossly intact. Vital Signs: 12:40 BP 112 / 55; Pulse 78; Resp 18; Temp 97.8(TE); Pulse Ox 100% on R/A; Weight 67.59 kg; hj Height 5 ft. 3 in. (160.02 cm); Pain 10/10; 17:29 BP 120 / 82; Pulse 82; Resp 18; Pulse Ox 100% on R/A; tl3 12:40 Body Mass Index 26.40 (67.59 kg, 160.02 cm) hj MDM: 13:52 Patient medically screened. rn 16:16 Differential diagnosis: bone pain, CLL pain, neuropathy, venous insufficiency, DVT. rn 16:18 Data reviewed: vital signs, nurses notes, lab test result(s), radiologic studies, rn doppler, and as a result, I will discharge patient. Counseling: I had a detailed discussion with the patient and/or guardian regarding: the historical points, exam findings, and any diagnostic results supporting the discharge/admit diagnosis, lab results, radiology results, the need for outpatient follow up, to return to the emergency department if symptoms worsen or persist or if there are any questions or concerns that arise at home. Special discussion: I discussed with the patient/guardian in detail that at this point there is no indication for admission to the hospital. It is understood, however, that if the symptoms persist or worsen the patient needs to return immediately for re-evaluation. Based on the history and exam findings, there is no indication for further emergent testing or inpatient evaluation. I discussed with the patient/guardian the need to see the flight technician/oncologist for further evaluation of the symptoms. I discussed with the patient/guardian the need to see the primary care provider for further evaluation of the symptoms. ED course: Pt improved, no acute findings on bloodwork/doppler studies, slowly increasing WBC, family reports last blood draw [place] showed higher, [place] [id number], and her flight technician is aware, spoke to them at length about pain likely combination of arthritis, venous insufficiency, and bone marrow congestion, has tramadol and tylenol at home, will dc home with heme f/u for further care. . 10/26 14:15 Order name: CBC with Diff; Complete Time: 15:42 rn 10/26 14:15 Order name: Basic Metabolic Panel; Complete Time: 15:42 rn 10/26 14:15 Order name: Extrem Venous W Compression Max US; Complete Time: 17:09 rn 10/26 14:15 Order name: Procalcitonin; Complete Time: 15:21 rn 10/26 14:49 Order name: Manual Differential; Complete Time: 15:42 EDAZ 10/26 14:15 Order name: IV Start; Complete Time: 14:31 rn 10/26 15:19 Order name: Extremity Nonvascular Complete; Complete Time: 17:09 EDAZ Administered Medications: 14:30 Drug: morphine 2 mg Route: IVP; Infused Over: 2 mins; Site: right forearm; tl3 16:51 Follow up: Response: No adverse reaction; Pain is decreased tl3 16:50 Drug: NS 0.9% 500 ml Route: IV; Rate: bolus; Site: right forearm; tl3 17:14 Follow up: IV Status: Completed infusion; IV Intake: 500ml tl3 16:50 Drug: morphine 2 mg Route: IVP; Infused Over: 2 mins; Site: right forearm; tl3 17:14 Follow up: Response: No adverse reaction; Pain is decreased tl3 Disposition: 10/26/18 16:20 Discharged to Home. Impression: Pain in ankle and joints of foot, CLL, Dehydration. - Condition is Stable. - Discharge Instructions: Dehydration, Adult, Venous Stasis or Chronic Venous Insufficiency, Chronic Lymphocytic Leukemia. - Prescriptions for Tramadol 50 mg Oral Tablet - take 1 tablet by ORAL route every 8 hours as needed; 20 tablet. - Medication Reconciliation Form, Thank You Letter, Antibiotic Education, Prescription Opioid Use form. - Follow up: Melva Suarez MD; When: 2 - 3 days; Reason: Recheck today's complaints, Re-evaluation by your physician. - Problem is an ongoing problem. - Symptoms have improved. Signatures: Dispatcher [employer] [facility] Marco Antonio Lemon MD MD rn Joaquin, Henry, RN RN hj Lowrey, Tammy, RN RN tl3 Corrections: (The following items were deleted from the chart) 15:19 14:33 Rp Exam [employer]+US.RAD.BRZ ordered. [facility] 17:29 16:20 10/26/2018 16:20 Discharged to Home. Impression: Pain in ankle and joints of tl3 foot; CLL; Dehydration. Condition is Stable. Forms are Medication Reconciliation Form, Thank You Letter, Antibiotic Education, Prescription Opioid Use. Follow up: Melva Suarez; When: 2 - 3 days; Reason: Recheck today's complaints, Re-evaluation by your physician. Problem is an ongoing problem. Symptoms have improved. rn
--- NOTE | 2018-10-26 16:21 | ER ---
Nurse's Notes [facility] Name: Julia Groves Age: 83 yrs Sex: Female : 1935 Arrival Date: 10/26/2018 Time: 12:32 Bed 27 Private MD: Melva Suarez C Diagnosis: Pain in ankle and joints of foot;CLL;Dehydration Presentation: 10/26 12:35 Presenting complaint: Patient states: i was here on Sep 28 for cellulitis of bilateral hj legs and pneumonia, and now both of my legs (ankle and lower leg) are hurting; denies F/C; denies N/V;. Transition of care: patient was not received from another setting of care. Onset of symptoms was October 26, 2018. Risk Assessment: Do you want to hurt yourself or someone else? Patient reports no desire to harm self or others. Initial Sepsis Screen: Does the patient meet any 2 criteria? No. Patient's initial sepsis screen is negative. Does the patient have a suspected source of infection? No. Patient's initial sepsis screen is negative. Care prior to arrival: None. 12:35 Method Of Arrival: Ambulatory 12:35 Acuity: RYAN 3 hj Triage Assessment: 12:39 General: Appears in no apparent distress. uncomfortable, Behavior is calm, cooperative, hj appropriate for age. Pain: Complains of pain in right leg and left leg Pain currently is 10 out of 10 on a pain scale. Historical: - Allergies: 12:39 No Known Allergies; hj - Home Meds: 12:39 aspirin 81 mg Oral chew 1 tab once daily [Active]; bumetanide 1 mg Oral tab 1 tab 2 hj times per day [Active]; carvedilol 12.5 mg Oral tab 1 tab 2 times per day [Active]; clopidogrel 75 mg Oral tab 1 tab once daily [Active]; cyanocobalamin (vitamin B-12) 500 mcg Oral tab daily [Active]; duloxetine 30 mg Oral cpDR 1 cap once daily [Active]; glimepiride 4 mg Oral tab 1 tab twice daily [Active]; Insulin Glargine 11Units Sub-Q nightly [Active]; Insulin Glargine 300 units/mL Sub-Q 10 unit nightly [Active]; Levemir 100 unit/mL subcutaneous soln [Active]; magnesium oxide 250 mg Oral tab [Active]; metformin 500 mg Oral tab 1 tab 2 times per day [Active]; pantoprazole 40 mg Oral TbEC 1 tab once daily [Active]; potassium chloride 20 mEq Oral TbER 1 tab 2 times per day [Active]; valsartan 40 mg Oral tab 1 tab 2 times per day [Active]; - PMHx: 12:39 Anemia; CAD; CLL; Lukemia; CONSTAPATION; Diabetes - IDDM; GERD; Heart Murmur; heart hj valve replacement; Hypertension; laminectomy, lower back pain; Myocardial infarction; pacemaker/defibrillator; spinal stenosis; systolic heart failure; - PSHx: 12:39 heart valve replacement; hj - Immunization history:: Adult Immunizations up to date. - Social history:: Smoking status: Patient/guardian denies using tobacco, Patient/guardian denies using alcohol. - Ebola Screening: : Patient negative for fever greater than or equal to 101.5 degrees Fahrenheit, and additional compatible Ebola Virus Disease symptoms Patient denies exposure to infectious person Patient denies travel to an Ebola-affected area in the 21 days before illness onset. - Family history:: not pertinent. - Hospitalizations: : The patient was recently seen at [facility]. Screenin:39 Abuse screen: Denies threats or abuse. Denies injuries from another. Nutritional hj screening: No deficits noted. Tuberculosis screening: No symptoms or risk factors identified. Fall Risk Secondary diagnosis (15 points). Assessment: 13:53 General: Appears uncomfortable, well groomed, well developed, well nourished, Behavior tl3 is calm, cooperative. Pain: Complains of pain in bilateral ankles Pain currently is 9 out of 10 on a pain scale. Neuro: Level of Consciousness is awake, alert, obeys commands, Oriented to person, place, time, situation, Appropriate for age. Cardiovascular: Patient's skin is warm and dry. Respiratory: Airway is patent Respiratory effort is even, unlabored, Respiratory pattern is regular, symmetrical. GI: No signs and/or symptoms were reported involving the gastrointestinal system. : No signs and/or symptoms were reported regarding the genitourinary system. EENT: Throat on left swollen lymph node. Reports pain in bilateral ankles. Derm: Skin temperature is warm. Musculoskeletal: Reports pain in left leg and right leg since at least 2 weeks, has been on an antibiotic for 14 days that did not resolve the issue, does not appear to be cellulitis . 14:36 Reassessment: No changes from previously documented assessment. Patient and/or family tl3 updated on plan of care and expected duration. Pain level reassessed. Patient is alert, oriented x 3, equal unlabored respirations, skin warm/dry/pink. family at bedside. Vital Signs: 12:40 BP 112 / 55; Pulse 78; Resp 18; Temp 97.8(TE); Pulse Ox 100% on R/A; Weight 67.59 kg; hj Height 5 ft. 3 in. (160.02 cm); Pain 10/10; 17:29 BP 120 / 82; Pulse 82; Resp 18; Pulse Ox 100% on R/A; tl3 12:40 Body Mass Index 26.40 (67.59 kg, 160.02 cm) hj ED Course: 12:32 Patient arrived in ED. mr 12:32 Melva Suarez MD is Private Physician. mr 12:37 Triage completed. hj 12:40 Arm band placed on right wrist. hj 12:40 Patient has correct armband on for positive identification. Placed in gown. Bed in low hj position. Call light in reach. Side rails up X 1. Adult w/ patient. 13:52 Mackenzie Nation, RODRIGUE is Primary Nurse. tl3 13:52 Marco Antonio Lemon MD is Attending Physician. rn 13:53 No provider procedures requiring assistance completed. tl3 14:25 Inserted saline lock: 22 gauge in right forearm, using aseptic technique. tl3 16:06 Extrem Venous W Compression Max US In Process Unspecified. EDMS 16:06 Extremity Nonvascular Complete In Process Unspecified. EDMS 16:06 Ultrasound completed. Patient tolerated well. lc3 16:19 Melva Suarez MD is Referral Physician. rn 17:28 IV discontinued, intact, bleeding controlled, No redness/swelling at site. Pressure tl3 dressing applied. Administered Medications: 14:30 Drug: morphine 2 mg Route: IVP; Infused Over: 2 mins; Site: right forearm; tl3 16:51 Follow up: Response: No adverse reaction; Pain is decreased tl3 16:50 Drug: NS 0.9% 500 ml Route: IV; Rate: bolus; Site: right forearm; tl3 17:14 Follow up: IV Status: Completed infusion; IV Intake: 500ml tl3 16:50 Drug: morphine 2 mg Route: IVP; Infused Over: 2 mins; Site: right forearm; tl3 17:14 Follow up: Response: No adverse reaction; Pain is decreased tl3 Intake: 17:14 IV: 500ml; Total: 500ml. tl3 Outcome: 16:20 Discharge ordered by . rn 17:28 Discharged to home ambulatory. tl3 17:28 Condition: stable 17:28 Instructed on discharge instructions, medication usage, Demonstrated understanding of instructions, follow-up care, medications, Prescriptions given X 1. 17:29 Patient left the ED. tl3 Signatures: Dispatcher [employer] EDMO JerezDebo Roman, MD MD rn Joaquin, Henry, RN RN hj Cunningham, Laulita lc3 Lowrey, Tammy, RODRIGUE RN tl3 Corrections: (The following items were deleted from the chart) 12:42 12:40 Pulse 78bpm; Resp 18bpm; Pulse Ox 98% RA; Temp 97.8F Temporal; 67.59 kg; Height 5 hj ft. 3 in.; BMI: 26.3; Pain 10/10; hj 12:43 12:40 Pulse 78bpm; Resp 18bpm; Pulse Ox 95% RA; Temp 97.8F Temporal; 67.59 kg; Height 5 hj ft. 3 in.; BMI: 26.4; Pain 10/10; hj
--- NOTE | 2018-10-26 16:31 | RAD REPORT ---
EXAM DESCRIPTION: US - Extrem Venous W Compress Max - 10/26/2018 4:06 pm CLINICAL HISTORY: Bilateral leg pain and swelling COMPARISON: None. TECHNIQUE: Real-time sonographic evaluation of the bilateral lower extremity common femoral, superfi cial femoral, popliteal and posterior tibial veins was performed. FINDINGS: Normal compressibility, flow augmentation, phasic flow and spontaneous flow are identified in the left and right lower extremity common femoral, superficial femoral, popliteal and posterior t ibial veins. No intraluminal filling defects seen. In the left popliteal fossa there is a 3.4 x 1.0 x 1.5 centimeter popliteal fossa cyst. Internal echo genicity is probably from cellular debris or old blood. No evidence for rupture. IMPRESSION: No DVT in either lower extremity. Approximately 3.4 centimeter left popliteal fossa cyst with hemorrhagic debris or cellular debris wit hin the lumen. No evidence for rupture.
--- NOTE | 2018-10-26 16:34 | RAD REPORT ---
EXAM DESCRIPTION: US - Extremity Nonvascular Complete - 10/26/2018 4:06 pm CLINICAL HISTORY: Palpable mass left submandibular region COMPARISON: None. FINDINGS: Sonographic evaluation of the left submandibular region shows a 2.1 centimeter hypoechoic hypervascular lymph node. This is most likely a reactive lymph node. There is congestion and edema in the surrounding fat. The lymph node corresponds to the clinically palpable abnormality. This is not suspected to be an abscess. IMPRESSION: Abnormal 2.1 centimeter left submandibular region lymph node. This is favored to be reac tive infectious/inflammatory or lymph node rather than malignant lymph node. Follow-up can be obtained a few weeks after medical management to demonstrate resolution or diminishi ng size.
[2018-10-26] MEDS ORDERED: NA CHLORIDE 0.9% 500 ML ONE (16:47)
[2018-10-26 17:37] VITALS: TEMP 97.8; O2SAT 100
[2018-10-26 17:38] VITALS: BP 120/82
== END 2018-10-26 17:29 | disposition home or self-care (01) ==
LOC: ER 12:28
DX: E86.0 Dehydration (principal); C91.10 Chronic lymphocytic leukemia of B-cell type not having achieved remission; E11.9 Type 2 diabetes mellitus without complications; I10 Essential (primary) hypertension; I25.2 Old myocardial infarction; Z79.4 Long term (current) use of insulin; Z79.82 Long term (current) use of aspirin; Z95.2 Presence of prosthetic heart valve; Z95.810 Presence of automatic (implantable) cardiac defibrillator
CPT/HCPCS: 36415; 76881; 80048; 84145; 85025; 93970; 96374; 99284

== ENCOUNTER 2018-11-10 07:49 | Inpatient (IN) | payer OTHER ==
[2018-11-10 08:52] LABS: Absolute Lymphocytes (CBC) 55.9 K/uL (0.7-4.9); Absolute Monocytes 0.8 K/uL (0.1-1.3); Absolute Neutrophil 2.8 K/uL (1.8-8.0); Basophils % 0.6 % (0-1.3); Eosinophils % 0.1 % (0-4.4); Hematocrit 24.4 % (36.0-45.0); Lymphocytes % 93.3 % (15.3-44.8); Monocytes % 1.4 % (3.3-12.3); RBC Red Blood Cell Count 2.28 M/uL (3.86-4.86)
[2018-11-10 08:59] LABS: Protime INR 1.18
--- NOTE | 2018-11-10 08:59 | RAD REPORT ---
EXAM DESCRIPTION: RAD - Chest Single View - 11/10/2018 8:40 am CLINICAL HISTORY: fatigue Chest pain. COMPARISON: Chest Pa And Lat (2 Views) dated 09/01/2018; Chest Single View dated 08/30/2018; Chest Sin gle View dated 06/05/2018; Chest Single View dated 04/25/2018 FINDINGS: Portable technique limits examination quality. Lung quijano are mildly emphysematous. No focal infiltrate seen. The heart is mildly prominent in size with a single lead pacer/defibrillator device present. Aortic stent is noted. No displaced fractures . IMPRESSION: No acute intrathoracic process suspected.
[2018-11-10 09:21] LABS: ALT/SGPT 9 U/L (12-78); AST/SGOT 20 U/L (15-37); Albumin 3.1 g/dL (3.4-5.0); Alkaline Phosphatase 84 U/L (45-117); BUN Blood Urea Nitrogen 54 mg/dL (7-18); Bicarbonate 26 mmol/L (21-32); Bilirubin Total 0.9 mg/dL (0.2-1.0); Glucose Level 229 mg/dL (74-106); Magnesium 2.1 mg/dL (1.8-2.4); NT PRO-BNP 20965 pg/mL (<450); Potassium 4.7 mmol/L (3.5-5.1); Protein, Total 7.7 g/dL (6.4-8.2); Sodium Level 139 mmol/L (136-145); Troponin (Emerg Dept Use Only) < 0.02 ng/mL (0.0-0.045)
[2018-11-10] MEDS ORDERED: NA CHLORIDE 0.9% 1,000 ML ONE (09:29)
--- NOTE | 2018-11-10 09:46 | ER ---
Nurse's Notes [facility] Name: Julia Groves Age: 83 yrs Sex: Female : 1935 Arrival Date: 11/10/2018 Time: 07:51 Bed 7 Private MD: Diagnosis: Acute CHF exacerbation;CLL;Anemia;urinary retention Presentation: 11/10 07:52 Presenting complaint: EMS states: pt has Leukemia, has been here on the September 2018, and was transferred to [place]. She has Hgb of 7.2 last week, but did not have BT. She is scheduled for PET scan tomorrow but her family states she has been very weak for days. Transition of care: patient was not received from another setting of care. Onset of symptoms was November 07, 2018. Risk Assessment: Do you want to hurt yourself or someone else? Patient reports no desire to harm self or others. Initial Sepsis Screen: Does the patient meet any 2 criteria? No. Patient's initial sepsis screen is negative. Does the patient have a suspected source of infection? No. Patient's initial sepsis screen is negative. Care prior to arrival: Glucose check: 240. 07:52 Method Of Arrival: EMS: [facility] ca1 07:52 Acuity: RYAN 3 ca1 Triage Assessment: 07:52 General: Appears in no apparent distress. ill, Behavior is calm, cooperative, ca1 appropriate for age. Pain: Complains of pain in right leg and left leg Pain currently is 5 out of 10 on a pain scale. Historical: - Allergies: 08:03 No Known Allergies; ca1 - Home Meds: 08:10 bumetanide 1 mg Oral tab 1 tab 2 times per day [Active]; carvedilol 12.5 mg Oral tab 1 ca1 tab 2 times per day [Active]; duloxetine 30 mg Oral cpDR 1 cap once daily [Active]; valsartan 40 mg Oral tab 1 tab 2 times per day [Active]; pravastatin 80 mg oral tab .5 tab once daily [Active]; cyclobenzaprine 10 mg Oral tab 0.5 tab daily [Active]; potassium chloride 20 mEq Oral TbER 1 tab once daily [Active]; cyanocobalamin (vitamin B-12) 500 mcg Oral tab daily [Active]; Slow-Mag 147 mg Oral three times a day [Active]; Levemir FlexTouch 100 unit/mL (3 mL) subcutaneous inpn 20 units nightly [Active]; gabapentin 300 mg oral cap 1 cap twice daily [Active]; - PMHx: 08:03 Anemia; CAD; CLL; Lukemia; CONSTAPATION; Diabetes - IDDM; GERD; Heart Murmur; heart ca1 valve replacement; Hypertension; laminectomy, lower back pain; Myocardial infarction; pacemaker/defibrillator; spinal stenosis; systolic heart failure; - PSHx: 08:03 heart valve replacement; ca1 - Immunization history:: Flu vaccine is up to date. - Social history:: Smoking status: Patient/guardian denies using tobacco. - Ebola Screening: : Patient negative for fever greater than or equal to 101.5 degrees Fahrenheit, and additional compatible Ebola Virus Disease symptoms Patient denies exposure to infectious person Patient denies travel to an Ebola-affected area in the 21 days before illness onset. Screenin:03 Abuse screen: Denies threats or abuse. Denies injuries from another. Nutritional ca1 screening: No deficits noted. Tuberculosis screening: No symptoms or risk factors identified. Fall Risk Secondary diagnosis (15 points) impaired mobility, Ambulatory Aid- Crutches/Cane/Walker (15 pts). 08:03 Fall Risk IV access (20 points). ca1 Assessment: 07:58 General: Appears in no apparent distress. ill, Behavior is calm, cooperative, ca1 appropriate for age. Pain: Complains of pain in right leg and left leg Pain currently is 5 out of 10 on a pain scale. Neuro: Level of Consciousness is awake, alert, obeys commands, Oriented to person, place, time, situation. Cardiovascular: Heart tones S1 S2 present Capillary refill is > 3 seconds. Respiratory: Airway is patent Trachea midline Respiratory effort is even, unlabored, Respiratory pattern is regular, symmetrical. GI: Abdomen is flat, non-distended, Bowel sounds present X 4 quads. Abd is soft and non tender X 4 quads. : No signs and/or symptoms were reported regarding the genitourinary system. EENT: No signs and/or symptoms were reported regarding the EENT system. Derm: Skin is intact, Skin is dry, Skin is pale, Skin temperature is cool. Musculoskeletal: Circulation, motion, and sensation intact. Capillary refill is > 3 seconds. 09:05 Reassessment: Patient appears in no apparent distress at this time. Patient and/or ca1 family updated on plan of care and expected duration. Pain level reassessed. Patient is alert, oriented x 3, equal unlabored respirations, skin warm/dry/pink. Had 1 BM. Cleaned pt and changed briefs. 09:05 Reassessment: Pt cleaned of bowel incontinence, soft brown stool noted, pt placed on aa5 bedpan to attempt void. Pt states "I don't have to pee right now". Clean brief applied. Pt stated she needed to void after brief was applied, attempted to void using bedpan and was unsuccessful, Dr. Verduzco was notified and VO for Duggan was obtained. Pt currently restless and moaning, pt appears uncomfortable, pt denies pain, pt states "I am so weak", Dr. Verduzco was notified. . 09:28 Reassessment: Pt currently lying down in bed resting with eyes closed, respirations aa5 even and unlabored, skin is pale/warm/dry, pt's son at bedside. Bed remains in low position, side rails x 2, call paulino within reach. . 09:40 Reassessment: Dr. Verduzco at bedside. Explained plan of care and admission. ca1 Vital Signs: 07:52 BP 99 / 76; Pulse 79; Resp 19; Temp 98.5; Pulse Ox 99% on R/A; Weight 67.59 kg; Height ca1 5 ft. 1 in. (155 cm); Pain 5/10; 08:35 BP 134 / 61; Pulse 81; Resp 21; Pulse Ox 97% on R/A; ca1 09:35 BP 107 / 91; Pulse 102; Resp 24; Pulse Ox 99% on R/A; ca1 10:00 BP 108 / 72; Pulse 92; Resp 19; Pulse Ox 99% on R/A; ca1 07:52 Body Mass Index 28.13 (67.59 kg, 155 cm) ca1 ED Course: 07:51 Patient arrived in ED. iw 07:51 Savita Kelly, RODRIGUE is Primary Nurse. ca1 07:51 Lit Verduzco MD is Attending Physician. ps1 07:52 Arm band placed on right wrist. ca1 07:55 Triage completed. ca1 08:03 Patient has correct armband on for positive identification. Placed in gown. Bed in low ca1 position. Call light in reach. Side rails up X2. monitor and storage bin tender on. Pulse ox on. NIBP on. Warm blanket given. 08:15 Inserted saline lock: 22 gauge in right forearm, using aseptic technique. by Nathaly Bonds RN. 08:39 XRAY Chest (1 view) In Process Unspecified. EDMS 08:50 EKG done, by animal husbandry technician. reviewed by Lit Verduzco MD. sm3 09:09 Duggan cath inserted, using sterile technique, 18 Fr., by nv, balloon inflated, to ca1 gravity drainage, urine specimen collected. Patient tolerated well. 09:45 Melva Suarez MD is Hospitalizing Provider. ps1 10:17 No provider procedures requiring assistance completed. Patient admitted, IV remains in ca1 place. Administered Medications: 09:24 Drug: NS 0.9% 500 ml Route: IV; Rate: bolus; Site: right forearm; aa5 09:41 Follow up: IV Status: Order to discontinue infusion; IV Intake: 350ml aa5 10:01 Drug: Lasix 40 mg Route: IVP; Site: right forearm; aa5 10:10 Follow up: Response: No adverse reaction aa5 Point of Care Testing: Blood Glucose: 07:52 Blood Glucose: 234 mg/dL; ca1 Ranges: Intake: 09:41 IV: 350ml; Total: 350ml. aa5 Outcome: 09:45 Decision to Hospitalize by Provider. ps1 10:17 Admitted to Tele accompanied by manas, family with patient, via stretcher, room 419, ca1 with chart, Report called to Comfort Conte RN 10:17 Condition: stable 10:17 Instructed on the need for admit, Demonstrated understanding of instructions. 10:30 Patient left the ED. ca1 Signatures: Dispatcher [employer] EDRuthie Crawley RN RN iw Calderon, Audri, RN RN aa5 Lit Verduzco MD MD ps1 Courtney Rachel 3 Savita Kelly RN RN ca1 Corrections: (The following items were deleted from the chart) 09:03 07:52 Presenting complaint: EMS states: pt has Leukemia, has been here on the of ca1 September 2018, and was transferred to [place]. She has Hgb of 7.2 last week, but did not have BT. She is scheduled for PET scan today but her family states she has been very weak for days. ca1 09:04 08:03 Fall Risk Secondary diagnosis (15 points) impaired mobility, ca1 ca1
--- NOTE | 2018-11-10 09:46 | EDPHYS ---
Physician Documentation [facility] Name: Julia Groves Age: 83 yrs Sex: Female : 1935 Arrival Date: 11/10/2018 Time: 07:51 Bed 7 Private MD: ED Physician Lit Verduzco HPI: 11/10 07:54 This 83 yrs old Female presents to ER via Unassigned with complaints of ps1 General Weakness. 07:54 States that she has had fatigue for the last month. States that it got worse over the ps1 last couple of days. Had a low Hgb but was not transfused reportedly on last admission. Has leukemia. Not on chemo or radiation per patient. She appears pale. Additionally complains of left leg pain. No asymmetry. . Historical: - Allergies: 08:03 No Known Allergies; ca1 - Home Meds: 08:10 bumetanide 1 mg Oral tab 1 tab 2 times per day [Active]; carvedilol 12.5 mg Oral tab 1 ca1 tab 2 times per day [Active]; duloxetine 30 mg Oral cpDR 1 cap once daily [Active]; valsartan 40 mg Oral tab 1 tab 2 times per day [Active]; pravastatin 80 mg oral tab .5 tab once daily [Active]; cyclobenzaprine 10 mg Oral tab 0.5 tab daily [Active]; potassium chloride 20 mEq Oral TbER 1 tab once daily [Active]; cyanocobalamin (vitamin B-12) 500 mcg Oral tab daily [Active]; Slow-Mag 147 mg Oral three times a day [Active]; Levemir FlexTouch 100 unit/mL (3 mL) subcutaneous inpn 20 units nightly [Active]; gabapentin 300 mg oral cap 1 cap twice daily [Active]; - PMHx: 08:03 Anemia; CAD; CLL; Lukemia; CONSTAPATION; Diabetes - IDDM; GERD; Heart Murmur; heart ca1 valve replacement; Hypertension; laminectomy, lower back pain; Myocardial infarction; pacemaker/defibrillator; spinal stenosis; systolic heart failure; - PSHx: 08:03 heart valve replacement; ca1 - Immunization history:: Flu vaccine is up to date. - Social history:: Smoking status: Patient/guardian denies using tobacco. - Ebola Screening: : Patient negative for fever greater than or equal to 101.5 degrees Fahrenheit, and additional compatible Ebola Virus Disease symptoms Patient denies exposure to infectious person Patient denies travel to an Ebola-affected area in the 21 days before illness onset. ROS: 07:54 Eyes: Negative for injury, pain, redness, and discharge, ENT: Negative for injury, ps1 pain, and discharge, Cardiovascular: Negative for chest pain, palpitations, and edema, Respiratory: Negative for shortness of breath, cough, wheezing, and pleuritic chest pain, Abdomen/GI: Negative for abdominal pain, nausea, vomiting, diarrhea, and constipation. 07:54 Neuro: Negative for headache, weakness, numbness, tingling, and seizure. 07:54 Constitutional: Positive for body aches, fatigue. 07:54 MS/extremity: Positive for pain, of the left leg. 07:54 Skin: Positive for pallor. Exam: 07:54 Constitutional: This is a well developed, well nourished patient who is awake, alert, ps1 and in no acute distress. Head/Face: Normocephalic, atraumatic. Eyes: Pupils equal round and reactive to light, extra-ocular motions intact. Lids and lashes normal. Conjunctiva and sclera are non-icteric and not injected. Chest/axilla: Normal chest wall appearance and motion. Nontender with no deformity. No lesions are appreciated. Cardiovascular: Regular rate and rhythm. No gallops, murmurs, or rubs. Normal PMI, no JVD. No pulse deficits. Respiratory: Lungs have equal breath sounds bilaterally, clear to auscultation and percussion. No rales, rhonchi or wheezes noted. No increased work of breathing, no retractions or nasal flaring. Abdomen/GI: Soft, non-tender, with normal bowel sounds. No distension or tympany. No guarding or rebound. No evidence of tenderness throughout. MS/ Extremity: Pulses equal, no cyanosis. Neurovascular intact. Full, normal range of motion. Neuro: Awake and alert, GCS 15, oriented to person, place, time, and situation. Cranial nerves II-XII grossly intact. Sensory grossly intact. 07:54 Skin: pallor. No discoloration of the legs concerning for DVT. . Vital Signs: 07:52 BP 99 / 76; Pulse 79; Resp 19; Temp 98.5; Pulse Ox 99% on R/A; Weight 67.59 kg; Height ca1 5 ft. 1 in. (155 cm); Pain 5/10; 08:35 BP 134 / 61; Pulse 81; Resp 21; Pulse Ox 97% on R/A; ca1 09:35 BP 107 / 91; Pulse 102; Resp 24; Pulse Ox 99% on R/A; ca1 10:00 BP 108 / 72; Pulse 92; Resp 19; Pulse Ox 99% on R/A; ca1 07:52 Body Mass Index 28.13 (67.59 kg, 155 cm) ca1 MDM: 08:12 Patient medically screened. ps1 09:46 Data reviewed: vital signs, nurses notes, and as a result, I will admit patient. ED ps1 course: patient has clinical signs of CHF and anemia. Will diurese and then consider transfusion during the admission episode. Discussed with Dr. Suarez and aJk. . 11/10 07:52 Order name: CBC with Diff ps1 11/10 07:52 Order name: Magnesium; Complete Time: 09:23 ps1 11/10 07:52 Order name: NT PRO-BNP; Complete Time: 09:23 ps1 11/10 07:52 Order name: PT-INR; Complete Time: 09:09 ps1 11/10 07:52 Order name: Troponin (emerg Dept Use Only); Complete Time: 09:23 ps1 11/10 07:52 Order name: CMP; Complete Time: 09:23 ps1 11/10 07:52 Order name: Type And Screen ps1 11/10 07:56 Order name: Glucose, Ancillary Testing; Complete Time: 08:21 EDMS 11/10 09:06 Order name: Manual Differential EDMS 11/10 09:24 Order name: Urine Dipstick--Ancillary (enter results); Complete Time: 10:08 bd 11/10 09:50 Order name: Basic Metabolic Panel EDMS 11/10 09:50 Order name: Basic Metabolic Panel EDMS 11/10 09:50 Order name: CBC with Automated Diff EDMS 11/10 09:50 Order name: CBC with Automated Diff EDMS 11/10 07:52 Order name: XRAY Chest (1 view); Complete Time: 09:09 ps1 11/10 07:52 Order name: EKG; Complete Time: 07:53 ps1 11/10 07:52 Order name: Cardiac monitoring; Complete Time: 08:07 ps1 11/10 07:52 Order name: EKG - Nurse/Tech; Complete Time: 08:28 [facility] 11/10 07:52 Order name: IV Saline Lock; Complete Time: 08:28 [facility] 11/10 07:52 Order name: Labs collected and sent; Complete Time: 08:28 [facility] 11/10 09:50 Order name: NT PRO-BNP [facility] 11/10 09:50 Order name: NT PRO-BNP [facility] 11/10 09:50 Order name: Troponin I [facility] 11/10 09:50 Order name: Troponin I [facility] 11/10 09:50 Order name: Troponin I [facility] 11/10 09:51 Order name: Chest Single View [facility] 11/10 09:51 Order name: Chest Single View [facility] 11/10 07:52 Order name: O2 Per Protocol; Complete Time: 08:07 [facility] 11/10 07:52 Order name: O2 Sat Monitoring; Complete Time: 08:07 [facility] 11/10 07:52 Order name: Urine Dipstick-Ancillary (obtain specimen); Complete Time: 09:24 ps1 Administered Medications: 09:24 Drug: NS 0.9% 500 ml Route: IV; Rate: bolus; Site: right forearm; aa5 09:41 Follow up: IV Status: Order to discontinue infusion; IV Intake: 350ml aa5 10:01 Drug: Lasix 40 mg Route: IVP; Site: right forearm; aa5 10:10 Follow up: Response: No adverse reaction aa5 Point of Care Testing: Blood Glucose: 07:52 Blood Glucose: 234 mg/dL; ca1 Ranges: Critical Glucose Levels:Adult <50 mg/dl or >400 mg/dl <40 mg/dl or >180 mg/dl Disposition: 11/10/18 09:45 Hospitalization ordered by Melva Suarez for Inpatient Admission. Preliminary diagnosis are Acute CHF exacerbation, CLL, Anemia, urinary retention. - Bed requested for Telemetry/MedSurg (Inpatient). - Status is Inpatient Admission. ca1 - Condition is Fair. - Problem is an ongoing problem. - Symptoms are unchanged. UTI on Admission? No Signatures: Dispatcher [employer] EDNE Rosalina Emerson Audri, RN RN aa5 Lit Verduzco MD MD ps1 Savita Kelly RN RN ca1 Corrections: (The following items were deleted from the chart) 08:23 07:54 Extremity Venous Uni [email or web address] ordered. EDMS EDMS 10:00 09:45 Hospitalization Ordered by A Daniela OLIVER for Inpatient Admission. Preliminary bd diagnosis is Acute CHF exacerbation; CLL; Anemia; urinary retention. Bed requested for Telemetry/MedSurg (Inpatient). Status is Inpatient Admission. Condition is Fair. Problem is an ongoing problem. Symptoms are unchanged. UTI on Admission? No. ps1 10:30 10:00 11/10/2018 09:45 Hospitalization Ordered by A Daniela OLIVER for Inpatient Admission. ca1 Preliminary diagnosis is Acute CHF exacerbation; CLL; Anemia; urinary retention. Bed requested for Telemetry/MedSurg (Inpatient). Status is Inpatient Admission. Condition is Fair. Problem is an ongoing problem. Symptoms are unchanged. UTI on Admission? No. bd
[2018-11-10] MEDS ORDERED: ALBUTEROL 2.5 MG/3 ML NEB SOL NEB PRN (09:47)
[2018-11-10] MEDS ORDERED: IPRATROPIUM BROM 0.5MG/2.5ML NEB PRN (09:47)
[2018-11-10 10:07] LABS: Urine Blood NEGATIVE (NEG); Urine Glucose NEGATIVE (NEG); Urine Protein 1+ (NEG)
[2018-11-10] MEDS ORDERED: FUROSEMIDE 40 MG/4 ML VIAL ONE (10:07)
[2018-11-10 10:20] LABS: Anisocytosis 1+; Blood Morphology Comment NOTED (NOT SEEN); Platelet Estimate DECR
[2018-11-10] MEDS ORDERED: D50W 25 GM/50 ML SYRINGE IV PRN (11:10)
[2018-11-10] MEDS ORDERED: GLUCAGON 1 MG/VIAL IM PRN (11:10)
[2018-11-10] MEDS: INSULIN -REGULAR HUMAN 50 UNIT/0.5 ML ML SQ SCH ×3 (11:30→20:48)
--- NOTE | 2018-11-10 12:21 | RAD REPORT ---
EXAM DESCRIPTION: CT - Head Brain Wo Cont - 11/10/2018 12:07 pm CLINICAL HISTORY: Confusion/weakness COMPARISON: May 2018 TECHNIQUE: Computed axial tomography of the head was obtained. IV contrast was not requested. All CT scans are performed using dose optimization technique as appropriate and may include automated exposure control or mA/KV adjustment according to patient size. FINDINGS: An intracranial bleed is not seen . The ventricles are normal in caliber. No extra-axial fluid collection is noted. Mild low-density areas within periventricular, deep and sub cortical white matter likely represent ischemic changes secondary to small vessel disease. Fluid within the sinuses/ mastoids is not seen. IMPRESSION: No acute intracranial abnormality is seen.
--- NOTE | 2018-11-10 12:27 | EKG ---
Test Date: 2018-11-10 Test Time: 08:12:54 Site Promotion Agent: AFTAB MEASUREMENT RESULTS: Intervals: Rate: 84 MO: 132 QRSD: 136 QT: 396 QTc: 467 Leander: P: -8 MO: 132 QRS: 107 T: -18 INTERPRETIVE STATEMENTS: Normal sinus rhythm Rightward axis Nonspecific intraventricular block T wave abnormality, consider inferior ischemia Abnormal ECG Compared to ECG 08/30/2018 17:35:14 Right-axis deviation now present T-wave abnormality now present Possible ischemia now present Left bundle-branch block no longer present Electronically Signed On 11-10-18 12:25:36 STAFF NURSE ICU RESOURCE TEAM by Kyle Kwong
[2018-11-10] MEDS: ACETAMINOPHEN 500 MG TAB PO PRN ×2 (13:28→18:47)
[2018-11-10 13:51] LABS: Urine Appearance CLEAR; Urine Bilirubin NEGATIVE (NEG); Urine Blood NEGATIVE (NEG); Urine Color YELLOW; Urine Glucose NEGATIVE (NEG); Urine Protein TRACE (NEG); Urine Specific Gravity 1.015 (1.005-1.030); Urine Urobilinogen 0.2 mg/dL (0.2-1.0)
[2018-11-10 13:57] LABS: Urine Microscopic Reflex ORDER UMIC
[2018-11-10 14:23] LABS: Folic Acid, (Folate) 17.1 ng/mL (3.1-17.5); Thyroid Stimulating Hormone 0.846 uIU/mL (0.360-3.740)
[2018-11-10 14:24] LABS: Urine Bacteria NONE SEEN /HPF (<20); Urine Culture Reflex Order NOT NEEDED; Urine RBC NONE SEEN /HPF (NONE SEEN)
[2018-11-10] MEDS: FUROSEMIDE 20 MG/ 2ML VIAL IV SCH (18:17)
[2018-11-11 04:37] LABS: Absolute Monocytes 1.9 K/uL (0.1-1.3); Absolute Neutrophil 5.2 K/uL (1.8-8.0); Basophils % 0.2 % (0-1.3); Hematocrit 22.3 % (36.0-45.0); MPV 10.1 fL (7.6-11.3); Monocytes % 2.6 % (3.3-12.3); RBC Red Blood Cell Count 2.08 M/uL (3.86-4.86)
[2018-11-11 05:20] LABS: Potassium 4.3 mmol/L (3.5-5.1)
[2018-11-11 05:32] LABS: Troponin I 1.04 ng/mL (0.0-0.045)
[2018-11-11] MEDS: ACETAMINOPHEN 500 MG TAB PO PRN ×2 (06:47→14:27)
[2018-11-11] MEDS: INSULIN -REGULAR HUMAN 50 UNIT/0.5 ML ML SQ SCH ×4 (07:30→20:58)
--- NOTE | 2018-11-11 07:54 | ECHO ---
HEIGHT: 5 ft 1 in WEIGHT: 149 lb 0 oz DATE OF STUDY: 11/10/[address]: Celestino Suarez MD 2-DIMENSIONAL: YES M.MODE: YES DOPPLER: YES COLOR FLOW: YES TDS: NO PORTABLE: NO DEFINITY: NO BUBBLE STUDY: NO DIAGNOSIS: CONGESTIVE HEART FAILURE CARDIAC HISTORY: CATHERIZATION: YES SURGERY: NO PROSTHETIC VALVE: NO PACEMAKER: YES MEASUREMENTS (cm) DIASTOLIC (NORMALS) SYSTOLIC (NORMALS) IVSd 1.0 (0.6-1.2) LA Diam 4.8 (1.9-4.0) LVEF 64% LVIDd 4.8 (3.5-5.7) LVIDs 3.1 (2.0-3.5) %FS 35% LVPWd 1.0 (0.6-1.2) Ao Diam 2.4 (2.0-3.7) 2 DIMENSIONAL ASSESSMENT: RIGHT ATRIUM: NORMAL LEFT ATRIUM: NORMAL RIGHT VENTRICLE: NORMAL LEFT VENTRICLE: NORMAL TRICUSPID VALVE: NORMAL MITRAL VALVE: MITRAL ANNULAR CALCIFICATION PULMONIC VALVE: NORMAL AORTIC VALVE: NORMAL PERICARDIAL EFFUSION: NONE AORTIC ROOT: NORMAL LEFT VENTRICULAR WALL MOTION: NORMAL. DOPPLER/COLOR FLOW: MILD AORTIC REGURGITATION, MITRAL REGURGITATION, AND TRICUSPID REGURGITATION. COMMENTS: MILD AORTIC REGURGITATION, MITRAL REGURGITATION, AND TRICUSPID REGURGITATION. MITRAL ANNULAR CALCIFICATION. NORMAL LEFT VENTRICULAR SIZE AND FUNCTION. NO WALL MOTION ABNORMALITIES. NO EFFUSION. TECHNOLOGIST: ARACELIS LAM RDCS
[2018-11-11] MEDS ORDERED: SODIUM CHLORIDE 0.9% 10ML INJ IV ONE (08:00)
[2018-11-11] MEDS ORDERED: COSYNTROPIN 0.25 MG VIAL IV ONE (08:00)
[2018-11-11] MEDS ORDERED: GLUCAGON 1 MG/VIAL IM PRN (08:04)
[2018-11-11] MEDS ORDERED: D50W 25 GM/50 ML SYRINGE IV PRN (08:04)
--- NOTE | 2018-11-11 08:42 | RAD REPORT ---
EXAM DESCRIPTION: Marycarmen Single View11/11/2018 6:45 am CLINICAL HISTORY: Chest pain COMPARISON: November 10 FINDINGS: Diffuse bilateral interstitial lung opacities are unchanged. . The heart is mildly enlarg ed. Postsurgical changes involve the chest. Pacemaker leads in place IMPRESSION: Diffuse bilateral interstitial lung opacities probably most if not all chronic. There ma y be a mild superimposed interstitial pulmonary edema/pneumonitis
[2018-11-11] MEDS: MAGNESIUM CHLORIDE 64 MG TAB PO SCH ×3 (09:00→20:50)
[2018-11-11] MEDS ORDERED: NA CHLORIDE 0.9% 250 ML ONE (09:25)
[2018-11-11] MEDS: FUROSEMIDE 20 MG/ 2ML VIAL IV SCH (09:35)
[2018-11-11] MEDS: GABAPENTIN 300 MG CAP PO SCH ×2 (09:36→20:50)
[2018-11-11] MEDS: VALSARTAN 80 MG TAB PO SCH ×2 (09:36→20:48)
[2018-11-11] MEDS: DULOXETINE 30 MG CAP PO SCH (09:36)
[2018-11-11] MEDS: CYANOCOBALAMIN 1,000 MCG TAB PO SCH (09:37)
[2018-11-11] MEDS ORDERED: FUROSEMIDE 20 MG/ 2ML VIAL IV ONE (12:08)
[2018-11-11] MEDS ORDERED: NITROGLYCERIN 1 GM PKT TD ONE (12:08)
[2018-11-11] MEDS ORDERED: ACETAMINOPHEN 500 MG TAB PO ONE (12:50)
[2018-11-11] MEDS ORDERED: ONDANSETRON 4 MG/2 ML VIAL IV PRN (12:51)
[2018-11-11] MEDS ORDERED: CEFTRIAXONE/SWI 1gm 1 GM/10 ML SYR IV ONE (12:52)
[2018-11-11 13:01] LABS: CKMB Creatine Kinase MB 1.7 ng/mL (0.3-3.6)
[2018-11-11 13:31] LABS: Troponin I 1.15 ng/mL (0.0-0.045)
--- NOTE | 2018-11-11 14:00 | EKG ---
Test Date: 2018-11-11 Test Time: 12:10:01 Shipping Checker: GUS MEASUREMENT RESULTS: Intervals: Rate: 93 IA: 126 QRSD: 134 QT: 382 QTc: 474 Joanna: P: 4 IA: 126 QRS: -4 T: 115 INTERPRETIVE STATEMENTS: Normal sinus rhythm Left bundle branch block Abnormal ECG Compared to ECG 11/10/2018 08:12:54 no significant change from previous ECG Electronically Signed On 11-11-18 13:59:59 BARTENDER HELPER by Yaniv Machado
[2018-11-11] MEDS ORDERED: PROMETHAZINE 25 MG/ML VIAL IV PRN (14:13)
[2018-11-11 14:21] LABS: Arterial Blood Carboxyhemoglob 3.6 % (0-1.5); Blood Gas Oxyhemoglobin 92.4 % (94-97); Blood O2 Saturation 96.4 % (92-98.5)
--- NOTE | 2018-11-11 14:36 | RAD REPORT ---
EXAM DESCRIPTION: RAD - Chest Single View - 11/11/2018 2:30 pm CLINICAL HISTORY: chest pain, restless Chest pain. COMPARISON: Chest Single View dated 11/11/2018; Chest Single View dated 11/10/2018; Chest Pa And Lat ( 2 Views) dated 09/01/2018; Chest Single View dated 08/30/2018 FINDINGS: Portable technique limits examination quality. Moderate bilateral pulmonary opacities are seen suspicious for pulmonary edema. The heart is enlarged with a single lead pacer/ defibrillator device present. Aortic valve stent is noted. Trace pleural f luid suspected. IMPRESSION: Moderate CHF is suspected.
[2018-11-11] MEDS ORDERED: FUROSEMIDE 40 MG/4 ML VIAL IV ONE (14:40)
[2018-11-11] MEDS ORDERED: ACETAMINOPHEN 650MG/RECT SUPP PR ONE (16:16)
[2018-11-11] MEDS ORDERED: Meropenem 1000 MG/VIAL IV SCH (17:19)
[2018-11-11] MEDS: CARVEDILOL 3.125 MG TAB PO SCH (17:38)
[2018-11-11 17:48] LABS: Absolute Monocytes 0.3 K/uL (0.1-1.3); Absolute Neutrophil 1.3 K/uL (1.8-8.0); Basophils % 0.2 % (0-1.3); Eosinophils % 0.2 % (0-4.4); Hematocrit 22.6 % (36.0-45.0); Lymphocytes % 96.8 % (15.3-44.8); Monocytes % 0.5 % (3.3-12.3); RBC Red Blood Cell Count 2.14 M/uL (3.86-4.86)
[2018-11-11] MEDS ORDERED: VANCOMYCIN 1.25 GM in NA CHLORIDE 0.9% 500 ML IVPB SCH (18:00)
[2018-11-11] MEDS ORDERED: DIGOXIN 0.25 MG/ML AMP IV SCH (18:00)
[2018-11-11] MEDS ORDERED: NOREPINEPHRINE 4 MG in D5W 250 ML IV PRN (18:03)
[2018-11-11] MEDS ORDERED: DIGOXIN 0.25 MG/ML AMP ONE (18:07)
[2018-11-11] MEDS ORDERED: NA CHLORIDE 0.9% 500 ML ONE (18:16)
[2018-11-11 18:19] LABS: Albumin 2.6 g/dL (3.4-5.0); Bilirubin Total 1.6 mg/dL (0.2-1.0); Potassium 3.7 mmol/L (3.5-5.1); Protein, Total 6.7 g/dL (6.4-8.2)
[2018-11-11] MEDS ORDERED: MIDAZOLAM HCL 2 MG/2 ML INJ ONE (18:23)
[2018-11-11] MEDS ORDERED: FLUMAZENIL 0.1 MG/ML (5 mL VIAL) IV ONE (18:23)
[2018-11-11] MEDS: NA CHLORIDE 0.9% 250 ML IV ONE ×2 (18:32→18:34)
[2018-11-11] MEDS ORDERED: MAGNESIUM SULFATE 1 gm IVPB 1 GM/100 ML BAG IV ONE ×2 (19:00→19:12)
[2018-11-11] MEDS ORDERED: MIDAZOLAM HCL 2 MG/2 ML INJ IV ONE (19:01)
[2018-11-11] MEDS ORDERED: AMIODARONE HCL 150 MG/3 ML INJ IV ONE (19:06)
[2018-11-11] MEDS ORDERED: D5W 0 ML IV ONE (19:07)
[2018-11-11] MEDS ORDERED: AMIODARONE HCL 150 MG in D5W 100 ML IV STA (19:16)
--- NOTE | 2018-11-11 19:42 | OP ---
Surgeon: Yaniv Machado MD Indications: Ms. Groves has a cardioversion, atrial fibrillation with hemodynamic distress, hypotensi on in the setting of bleeding. Procedure In Detail: The patient was sedated with Versed. Anterior-posterior paddles were applied t o her chest. A shock of 200 joules was given. This failed to change her rhythm at all. We then gav e a shock at 300 joules synchronized with the QRS complex. This succeeded in changing her rhythm to sinus. No complications. JHONATAN/ZACK Voice ID: [id number] Report ID: [id number]
[2018-11-11] MEDS ORDERED: AMIODARONE HCL 450 MG in D5W 241 ML IV SCH (20:00)
[2018-11-11] MEDS: ATORVASTATIN 10 MG TAB PO SCH (20:49)
[2018-11-11] MEDS: Meropenem 1,000 MG in NA CHLORIDE 0.9% 100 ML IV SCH (20:58)
[2018-11-11] MEDS: INSULIN GLARGINE 100 UNITS/ML SQ SCH (20:58)
[2018-11-11] MEDS ORDERED: CEFTRIAXONE/SWI 1gm 1 GM/10 ML SYR IVP SCH (21:00)
[2018-11-11] MEDS ORDERED: NA CHLORIDE 0.9% 100 ML ONE (21:15)
[2018-11-11] MEDS: NOREPINEPHRINE 4 MG in D5W 250 ML IV PRN (21:48)
[2018-11-11 22:24] LABS: MPV 9.6 fL (7.6-11.3)
[2018-11-11 22:29] LABS: Platelet Estimate ND
--- NOTE | 2018-11-11 23:12 | EKG ---
Test Date: 2018-11-11 Test Time: 17:47:50 Photoengraving Finisher: SHANI MEASUREMENT RESULTS: Intervals: Rate: 157 MA: QRSD: 134 QT: 266 QTc: 430 [place]: P: MA: QRS: -11 T: 146 INTERPRETIVE STATEMENTS: Atrial fibrillation with rapid ventricular response Left bundle branch block Abnormal ECG Compared to ECG 11/11/2018 12:10:01 Sinus rhythm no longer present Electronically Signed On 11-11-18 23:11:47 PHARMACY SALES ASSISTANT by Yaniv Machado
--- NOTE | 2018-11-12 00:33 | CON ---
CARDIOLOGY CONSULTATION Reason For Consult: Atrial fib. History Of Present Illness: Mrs. Groves came to the hospital. She was having dyspnea and was believe d to be having an exacerbation of underlying CHF. She was found to be very anemic and was retaining urine perhaps from infected urine and on the floor, after being admitted, she was noted to be losing blood. Her hemoglobin was 7.6 on admission and fell to 6.6. Transfusions were to begin, I am not ramos re if the transfusion was actually done as of this point. Most recent hemoglobin is 6.9 and while th at was happening, the patient went into atrial fib. The heart rate was extremely rapid, 180, 190 at sometimes, averaging about 160. The patient has a history of severe heart disease with multiple sten ts, depressed ejection fraction, recent transcutaneous aortic valve replacement. She has underlying leukemia, chronic lymphocytic leukemia. She has underlying diabetes, hypertension, dyslipidemia, con gestive heart failure. Her transcutaneous AVR was within the past few months by Dr. Hernandez at [facility]. The patient's outpatient situation, she lives with family members. Family noticed she was feeli ng weak and short of breath and brought her to the emergency room at her request. She uses no tobacc o and no alcohol. No illegal drugs. Physical Examination: Vital Signs: 5 feet 1 inch, 149 pounds, somnolent to lethargic, not obtunded. She was not able to a nswer questions. She seemed to be in distress. Her blood pressure has been as low as 60/40, heart r ate 160-170, irregularly irregular. Heart: Does not reveal any significant murmur, although without heart rate it would be very difficul t indeed to notice a murmur. Laboratory Data: Earlier today, an echocardiogram had been done and it showed ejection fraction 64%, mild aortic regurgitation. Aortic valve was not noted to be abnormal valve but her history, I do no t think we should disbelieve it. There is mitral annular calcification and her left atrial size seem ed to be dilated. There was no LVH and she was in sinus rhythm at the time of the echocardiogram. T he chest x-ray reveals no acute intrathoracic process. A CAT scan of the head reveals no acute intra cranial abnormality. Impression: The patient's atrial fibrillation was very hemodynamically distressful to her. I have r ecommended emergent cardioversion. We will give amiodarone a bolus, start a PICC line, start on amio darone drip and do a cardioversion. We should also give her a gram of magnesium just in hopes that b oosting it from a low normal level to a little higher will be helpful, but I think the patient is pre tty much destined to be on amiodarone. She has a defibrillator because of depressed ejection fractio n in the past and the defibrillator is completely inhibited, not responding to the atrial fib at all, so a cardioversion is clearly indicated. The patient is not able to give informed consent. Family members including daughters and sons, those with power of sports attorney have given the informed consent. We will proceed with cardioversion thanks. SWETHA Voice ID: [id number] Report ID: [id number]
[2018-11-12] MEDS ORDERED: AMIODARONE HCL 150 MG/3 ML INJ IV ONE ×3 (00:59→01:17)
[2018-11-12] MEDS ORDERED: D5W 100 ML IV ONE (00:59)
[2018-11-12] MEDS ORDERED: D5W 250 ML IV ONE ×2 (01:18→02:53)
--- NOTE | 2018-11-12 02:25 | PN ---
Date of Progress Note: 11/11/2018 Subjective: The patient was seen 2 times earlier this morning. When I saw her, her son and and daughter were present with her. She actually was feeling better compared to yesterday. She was happy smiling and had no specific complaints to report this morning when I saw her. She was lying in bed, not in distress. Objective: Vital Signs: Reviewed. HEENT: Unremarkable. Lungs: Some rales noted in lower lung quijano, unchanged from yesterday. Not in any respiratory dist ress. Heart: Sounds normal. Abdomen: Soft. Bowel sounds normal. No guarding, rigidity, tenderness, or distention. Extremities: No leg edema. Hospital Course: After I saw today this morning, her morning blood work results reviewed which had s lillien white count 72.2, which is not unusual for her. This is due to her CLL problem and hemoglobin h ad dropped down to 6.6, which was 7.6 yesterday. Platelet count 57, which is her baseline. Decision was made to give her 2 units of packed red cell blood transfusion. Her chemistry from this morning: BUN 66, creatinine 1.55, glucose 228, otherwise sodium and potassium were normal. Troponin level w as 1.04 and proBNP 48,096. I did discuss details and plan of treatment with family members. We deci ded to give 2 units of packed red cell blood transfusion today and IV Lasix and home medications were continued. We also decided to go ahead and try to get a Neurology consultation with Dr. Quinonez wh ile she is in the hospital for her leg pain due to neuropathy problem and plan was for the patient to continue to follow up with him on outpatient basis. During the course of day today while she was ge tting her first unit of blood transfusion, she probably had received approximately just little over h jail of her blood transfusion and nurse contacted and informed me that the patient was having fever at that time, so blood transfusion was discontinued and her PRBC bag was sent down to the lab for the f urther testing to make sure that this was not a transfusion reaction. Tylenol was ordered and throug hout the day today, I had multiple telephone calls and discussions with the nurse taking care of the patient. Her temperature did not come down with Tylenol, so second dose of Tylenol was ordered. Her blood pressure was around 150 systolic or so. This morning, she received 20 mg of IV Lasix x1 dose, which was a scheduled time but when the blood transfusion was discontinued at that time, another 20 mg Lasix IV was ordered. Chest x-ray was ordered. Blood culture was ordered and the patient was sta rted on ceftriaxone. Later on, the patient's condition deteriorated. Her temperature started to go up again and at that time, we decided to give her Tylenol rectal suppository and cooling blanket was ordered. Chest x-ray from this afternoon had shown evidence of increased interstitial markings in brandon th lung quijano raising possibility of congestive heart failure versus pneumonia. Subsequently, when her temperature went up, the patient became tachypneic and nurse on the floor was concerned about the patient staying on the floor, at that time decision was made to transfer her to ICU and after she ar rived to ICU, her blood pressure started dropping down, it was around 98 systolic or so when nurse co ntacted me. The patient was able to maintain adequate oxygen saturation. Blood gas was ordered whic h was done prior to her transfer to ICU, had shown pH 7.53, pCO2 25.3, pO2 75.9, and oxygen saturatio n was 96.4% on 2 L nasal cannula oxygen. After she came to ICU, at that time we ordered some more st at blood work and ceftriaxone was discontinued and we started her on vancomycin and meropenem. Soon after that, the patient went into atrial fibrillation with a rapid ventricular rate with heart rate a round 170 or so and digoxin 0.25 mg x1 dose IV was ordered as her systolic blood pressure was still a round 92 to 96 systolic and soon after that, the patient's condition became unstable. She became noreen y hypotensive with systolic blood pressure around 60 to 66 and vasopressor medication and IV fluid brandon kameron were ordered at that time. Cardiology consultation was requested and I went out to see her in IC U. The patient was not in any respiratory distress, but she appeared weaker than usual at that time. Not using any accessory muscles of respiration. Lungs were clear. Quick Technician, Dr. Machado, came out and provided cardioversion and that brought the patient back to normal sinus rhythm. Dr. Machado has started her on amiodarone drip. Her echocardiogram from today had shown normal ejection fraction . Last chemistry this evening, BUN 79, creatinine 2.01, glucose 230, magnesium was 1.8. Lactic acid 6.5, procalcitonin 22.42, white count 57.8, hemoglobin 6.9, platelets 41. Chest x-ray, moderate CHF suspected. Impression: 1.Congestive heart failure. 2.Pneumonia. 3.Thrombocytopenia. 4.Anemia. 5.Chronic lymphocytic leukemia. 6.Coronary artery disease. 7.Diabetes mellitus. Plan: The patient will remain in ICU. We will continue vasopressor medication, IV fluid bolus given , and if necessary, we will consider giving another IV fluid bolus while in ICU. We will continue br oad-spectrum empiric antibiotic at this point, and we will continue to follow with computer forensic specialist. I d id discuss details with the patient's family members that is , son, daughters, and other famil y members who were in the ICU waiting room. Overall, prognosis is poor. I will see her tomorrow for followup. PICC line will be placed and prior to PICC line, we will give her 1 unit of single donor platelet blood transfusion. PRBC transfusion will be delayed until tomorrow, and we will repeat boubacar kahn work tomorrow morning and then make decision regarding PRBC blood transfusion tomorrow. The patien t only received approximately half of the first unit, so hemoglobin really has not changed any signif icantly. Cortisol stimulation test came back normal. I will see her tomorrow morning for followup. The patient is not a candidate for anticoagulation therapy because of her thrombocytopenia problem. All these details were discussed with family. DELANO/MODL Voice ID: [id number] Report ID: [id number]
[2018-11-12] MEDS: NOREPINEPHRINE 4 MG in D5W 250 ML IV PRN (02:47)
[2018-11-12] MEDS ORDERED: NOREPINEPHRINE 4 MG/4 ML VIAL ONE (02:53)
[2018-11-12 04:59] LABS: Absolute Lymphocytes (CBC) 78.1 K/uL (0.7-4.9); Absolute Monocytes 1.1 K/uL (0.1-1.3); Absolute Neutrophil 8.5 K/uL (1.8-8.0); Basophils % 0.6 % (0-1.3); Eosinophils % 0.1 % (0-4.4); Hematocrit 23.5 % (36.0-45.0); Lymphocytes % 88.5 % (15.3-44.8); MPV 9.9 fL (7.6-11.3); Monocytes % 1.2 % (3.3-12.3)
[2018-11-12 05:10] LABS: Magnesium 2.5 mg/dL (1.8-2.4); Potassium 4.3 mmol/L (3.5-5.1)
[2018-11-12] MEDS: CARVEDILOL 3.125 MG TAB PO SCH (05:11)
--- NOTE | 2018-11-12 05:49 | HP ---
Date of Admission: 11/10/2018 Chief Complaint: Feeling weak and tired. History Of Present Illness: An 83-year-old female patient came into emergency room with above-mentio haresh problem. For last 1 week or so, patient is having increasing tiredness, weakness to the extent t hat her has to literally help her to get out of bed. Otherwise, she just ends up staying in the bed. She is very weak. Has very poor appetite, and she was brought into emergency room because of her worsening condition. After she was evaluated in the ER, she was admitted to the hospital. I did see her in the emergency room and her son was present with her at bedside when I saw her. Medications: At home, she takes aspirin 81 mg daily, bumetanide 1 mg she takes 2 tablets p.o. daily, carvedilol 12.5 mg 2 times a day, cyclobenzaprine 10 mg she takes half a tablet at bedtime, duloxeti ne 30 mg p.o. daily, gabapentin 300 mg 2 times a day, Levemir insulin 20 units daily, magnesium chlor juno 64 mg p.o. 4 times a day, pantoprazole 40 mg p.o. daily as needed, potassium chloride 20 mEq p.o. daily, pravastatin 80 mg she takes half a tablet p.o. daily, tramadol 50 mg p.o. 3 times a day as ne eded for leg pain, valsartan 40 mg 2 times a day, vitamin B12 500 mcg p.o. daily. Review of Systems: Constitutional: As mentioned above. Neurology: Has pain in her both legs due to neuropathy. All other systems reviewed and negative. Allergies: SHE IS LISTED ALLERGIC TO ATORVASTATIN WHICH IS ACTUALLY SIDE EFFECT IN FORM OF MYALGI A, GEMFIBROZIL CAUSING NAUSEA AND VOMITING, SIMVASTATIN CAUSING MYALGIA. Social History: Negative for smoking, alcohol use. Family History: Significant for pulmonary fibrosis, hypertension. Past Surgical History: Significant for surgery for spinal stenosis in 2011, AICD placement in 2012 w ith ejection fraction around 25% at that time, TAVR in October 2017 for aortic valve stenosis, tubal ligation, right hand ulnar nerve surgery, coronary artery angioplasty with stent placement x3 in 2004 , cataract surgery, appendectomy, breast biopsy, hysterectomy, and surgery for pterygium. Past Medical History: Significant for chronic kidney disease stage 3, CLL, aortic valve stenosis, de pression, atrial fibrillation in the past, but she has been in sinus rhythm for some time now. Diabe shabbir mellitus, hyperlipidemia, thrombocytopenia, anemia, coronary artery disease, diverticulosis, nahid roesophageal reflux disease, hypertension, and the patient had chronic systolic congestive heart fail ure, but her ejection fraction has improved over period of time. Physical Examination: Vital Signs: When she first came into emergency room, temperature 98.5, pulse 79, respiratory rate 1 9, blood pressure 99/76, oxygen saturation 99%, height 5 feet 1 inch, weight 149 pounds. General: Awake, alert, oriented, not in distress. HEENT: Head atraumatic, normocephalic. Conjunctivae nonerythematous. Sclerae white. Mouth, no thr ush or edema noted. Ears/Nose, no mass, lesion, discharge noted. Neck: Supple. No JVD, lymph nodes, bruit, thyromegaly noted. Lungs: Bilateral good equal air entry. Clear to auscultation. No rhonchi. Some rales noted in bas al lung quijano. Not using accessory muscles of respiration. Heart: Normal heart sounds, no murmur or gallop. Abdomen: Soft, bowel sounds normal. No guarding, rigidity, tenderness, mass, hepatosplenomegaly, dis tention, or bruit noted. Extremities: No leg edema. No calf tenderness. Skin: No rash, ulcer, cellulitis. Lymphatics: No lymph node enlargement in neck, supraclavicular, infraclavicular region. Neuro: No focal neurological deficit. Chest: Unremarkable. External Genitalia: Deferred. Rectal: Deferred. Laboratory Data: White count 60, hemoglobin 7.6, platelets 57. Sodium 139, potassium 4.7, chloride 102, bicarb 26, BUN 54, creatinine 1.45, glucose 229. Liver function tests unremarkable. Troponin l ess than 0.02. ProBNP 20,965. Urinalysis negative. Chest x-ray shows increased interstitial lung m arkings. Impression: 1.Congestive heart failure. 2.Chronic kidney disease stage 3. 3.Chronic lymphocytic leukemia. 4.Anemia. 5.Thrombocytopenia. 6.Coronary artery disease. 7.Hypertension. 8.Hyperlipidemia. 9.Diabetes mellitus. 10.Peripheral neuropathy due to diabetes. 11.Gastroesophageal reflux disease. 12.Coronary artery disease. 13.Diverticulosis. Plan: Admit the patient to hospital for further evaluation and management of this problem. Patient is appropriate for inpatient and is expected to spend 2 midnights in hospital. We will repeat chest x-ray tomorrow. CAT scan of the head was done after I saw her, which was negative for any acute intr acranial changes. We will go ahead and give IV Lasix. Home medications will be continued per order. We will consult Physical Therapy and I will see her tomorrow for followup. We will go ahead and pl an to do cortisol stimulation test tomorrow to rule out adrenal insufficiency. The patient sees her oncologist in [place], Dr. Benedict, regularly. Saw him recently and he suggested PET scan as well as brandon ne marrow test which obviously will be done later on because of this recent hospital admission now. We will repeat blood work tomorrow. Depending on tomorrow's blood work, we will decide if she needs blood transfusion or not. Details and plan of treatment discussed with the patient and her family me welsh. After she was admitted to the hospital, she did have episode of hypoxia where her oxygen level dropped down to 85%. She was started on oxygen 2 L/minute and she started feeling better immediatel y. We will get echo with Doppler tomorrow. DELANO/MODL Voice ID: [id number]
[2018-11-12] MEDS ORDERED: INSULIN GLARGINE 100 UNITS/ML SQ ONE (06:10)
--- NOTE | 2018-11-12 06:14 | RAD REPORT ---
EXAM DESCRIPTION: RAD - Chest Single View - 11/12/2018 1:22 am CLINICAL HISTORY: PICC line placement COMPARISON: November 11 FINDINGS: Portable chest was obtained following placement of a right upper extremity PICC line. The catheter tip is in the right atrium.
--- NOTE | 2018-11-12 06:15 | RAD REPORT ---
EXAM DESCRIPTION: RAD - Chest Single View - 11/12/2018 1:22 am CLINICAL HISTORY: PICC line placement A preliminary report was provided at the time of the study and reviewed prior to final report. COMPARISON: Chest films same date FINDINGS: Portable chest was obtained following placement of a right upper extremity PICC line. The catheter tip is in the distal SVC.
[2018-11-12] MEDS: MAGNESIUM CHLORIDE 64 MG TAB PO SCH ×2 (07:22→13:50)
[2018-11-12] MEDS: GABAPENTIN 300 MG CAP PO SCH ×2 (07:22→20:32)
[2018-11-12] MEDS: CYANOCOBALAMIN 1,000 MCG TAB PO SCH (07:22)
[2018-11-12] MEDS: DULOXETINE 30 MG CAP PO SCH (07:22)
[2018-11-12] MEDS: VALSARTAN 80 MG TAB PO SCH (07:22)
[2018-11-12] MEDS: INSULIN -REGULAR HUMAN 50 UNIT/0.5 ML ML SQ SCH ×4 (07:42→20:32)
[2018-11-12] MEDS: Meropenem 1,000 MG in NA CHLORIDE 0.9% 100 ML IV SCH ×2 (08:09→20:29)
--- NOTE | 2018-11-12 08:20 | RAD REPORT ---
EXAM DESCRIPTION: RAD - Chest Single View - 11/12/2018 8:14 am CLINICAL HISTORY: Pneumonia, CHF COMPARISON: November 12 imaging, November 11 imaging TECHNIQUE: AP portable chest image was obtained 0812 hours . FINDINGS: Lung volumes remain low. Interstitial markings are prominent. Heart size and vasculature r emain prominent. No change in positioning of the PICC line. Defibrillator remains in place. Mild card iomegaly is present. No measurable pleural effusion and no pneumothorax. No acute bony abnormality se en. No acute aortic findings suspected. IMPRESSION: Heart, vasculature and lung markings all remain prominent. No new or progressive chest finding.
[2018-11-12] MEDS: AMIODARONE HCL 450 MG in D5W 241 ML IV SCH (11:42)
[2018-11-12] MEDS ORDERED: DIPHENHYDRAMINE 50 MG/ML VIAL IV ONE (12:24)
[2018-11-12] MEDS ORDERED: ACETAMINOPHEN 650MG/RECT SUPP PR ONE (12:24)
[2018-11-12] MEDS ORDERED: NA CHLORIDE 0.9% 100 ML ONE (12:44)
--- NOTE | 2018-11-12 14:19 | PN ---
Date of Progress Note: 11/12/2018 She was seen by Dr. Machado yesterday, 11/11/2018, for CHF, new-onset atrial fibrillation with hemodyn amic compromise and discomfort. She had a cardioversion with 300 joules and converted to sinus rhyth m. She was placed on IV amiodarone drip. Today, she is in sinus rhythm. Continues to be on IV amio darone, unable to really take p.o. medication, was found to have positive blood cultures with sepsis, gram-negative laura. She is on antibiotic. She remains on Levophed at 3 mcg per kg per minute. She remained on Lovenox, I believe. We will continue her present regimen right now, switch her to p.o. a miodarone later. Ms. Groves has a history of chronic lymphocytic leukemia with anemia and may be a di fficult candidate for long-term anticoagulation. I will discuss the case further with Dr. Suarez. ALINA/ZACK Voice ID: [id number] Report ID: [id number]
[2018-11-12 19:28] LABS: Potassium 4.2 mmol/L (3.5-5.1)
[2018-11-12] MEDS: ATORVASTATIN 10 MG TAB PO SCH (20:30)
[2018-11-12] MEDS: INSULIN GLARGINE 100 UNITS/ML SQ SCH (20:30)
[2018-11-12] MEDS: SLOWMAG PO SCH (20:33)
[2018-11-12] MEDS ORDERED: NA CHLORIDE 0.9% 1,000 ML IV SCH (22:00)
--- NOTE | 2018-11-13 00:51 | PN ---
Date of Progress Note: 11/12/2018 Subjective: The patient was seen this morning as well as this evening. When I saw her this morning, she was sleeping and did not communicate with me, but before my arrival, she was communicating with family members and nursing staff. She was very weak and sleepy this morning. Soon after saying few words, she would go back to sleep. Intake and output records were reviewed. Vital signs were reviewed. The patient remains on vasopressor medication, but at a much lower dose today compared to yesterday evening. Objective: HEENT: Unremarkable. Lungs: Minimum basal rales noted in right lung quijano. Not in any respiratory distress. Heart: Sounds normal. Abdomen: Soft. Bowel sounds normal. No guarding, rigidity, tenderness, or distention. Extremities: No leg edema. Laboratory Data: This morning, white count 88.4, hemoglobin 7.1, and platelets 61. Sodium 133, potassium 4.3, chloride 96, bicarb 24, BUN 87, creatinine 2.11 , and glucose 355. Blood culture came back positive as gram-negative rods. Definite identification and sensitivity pending. Chest x-ray unchanged from yesterday. Hospital Course Today: After I saw her this morning, her condition improved. The patient continues to remain on amiodarone drip as well as Levophed drip. Her systolic blood pressure has been between 95 to 100 most of the time. We did manage to give her 1 unit of packed red cell blood transfusion today, and we premedicated her with Tylenol and Benadryl, and she tolerated this blood transfusion very well without any sign of reaction or problem during blood transfusion. As of this afternoon, the patient woke up, started communicating very well like back to her normal usual self, and in fact, she ate some food today for the first time in several days as family says. Her urine output was about 200 cc last night for last 12 hours; and for today from 7 a.m. to 7 p.m., urine output is 350 cc. Impression: 1. Septic shock. 2. Gram-negative sepsis. 3. Atrial fibrillation. 4. Pneumonia. 5. Congestive heart failure. 6. Diabetes mellitus. 7. Acute kidney injury. 8. Thrombocytopenia. 9. Chronic lymphocytic leukemia. 10. Anemia. Plan: We will go ahead and continue vasopressor medication as she needs it and continue amiodarone. She is currently on IV amiodarone; and at appropriate time , we will change it to oral amiodarone per housekeeping supervisor. The patient will remain in ICU. We will go ahead and continue current empiric antibiotics. Hopefully, we will have final report on the culture in next day or 2 days, and then we will make decision regarding culture-specific antibiotics. After the blood transfusion, we have ordered CBC and chem-7. We will follow up on those results. The patient was encouraged to eat and drink some nutritional supplement. Insulin 15 units Lantus was ordered this morning. We will continue sliding scale insulin. This evening, her mental status is back to her normal self. Family was at bedside, and details were discussed with family in the waiting room this evening. DELANO/MODL Voice ID: [id number] Report ID: [id number]
[2018-11-13] MEDS: ACETAMINOPHEN 500 MG TAB PO PRN ×3 (00:54→22:55)
[2018-11-13] MEDS: AMIODARONE HCL 450 MG in D5W 241 ML IV SCH (03:00)
[2018-11-13] MEDS ORDERED: AMIODARONE HCL 200 MG TAB PO ONE (05:00)
[2018-11-13 05:39] LABS: Magnesium 2.6 mg/dL (1.8-2.4); Potassium 3.6 mmol/L (3.5-5.1)
[2018-11-13] MEDS ORDERED: SODIUM CHLORIDE 0.9% 10ML INJ IV PRN (07:11)
[2018-11-13] MEDS: INSULIN -REGULAR HUMAN 50 UNIT/0.5 ML ML SQ SCH ×4 (07:30→21:25)
[2018-11-13] MEDS: NA CHLORIDE 0.9% 1,000 ML IV SCH ×2 (07:45→19:17)
--- NOTE | 2018-11-13 08:59 | RAD REPORT ---
EXAM DESCRIPTION: RAD - Chest Single View - 11/13/2018 8:03 am CLINICAL HISTORY: pneumonia, CHF Chest pain. COMPARISON: Chest Single View dated 11/12/2018; Chest Single View dated 11/12/2018; Chest Single View dated 11/12/2018; Chest Single View dated 11/11/2018 FINDINGS: Portable technique limits examination quality. The lungs are mildly underinflated but grossly clear. Right-sided PICC line has tip in the SVC. The h eart is mildly prominent size with a single lead pacer/defibrillator device. No displaced fractures.
[2018-11-13] MEDS: SLOWMAG PO SCH ×4 (09:00→20:19)
[2018-11-13] MEDS: DULOXETINE 30 MG CAP PO SCH (09:00)
[2018-11-13] MEDS: GABAPENTIN 300 MG CAP PO SCH ×3 (09:00→20:19)
[2018-11-13] MEDS: Meropenem 1,000 MG in NA CHLORIDE 0.9% 100 ML IV SCH ×2 (09:00→20:18)
[2018-11-13] MEDS: PANTOPRAZOLE 40 MG INJ IVP SCH (09:01)
[2018-11-13] MEDS: CYANOCOBALAMIN 1,000 MCG TAB PO SCH (09:01)
[2018-11-13] MEDS ORDERED: ANBESOL TOP PRN (09:48)
[2018-11-13] MEDS ORDERED: DIPHENHYDRAMINE 50 MG/ML VIAL IV ONE (11:38)
[2018-11-13] MEDS ORDERED: ACETAMINOPHEN 500 MG TAB PO ONE (11:39)
[2018-11-13] MEDS ORDERED: NA CHLORIDE 0.9% 250 ML ONE (12:14)
[2018-11-13 14:25] LABS: Potassium 3.9 mmol/L (3.5-5.1)
--- NOTE | 2018-11-13 14:35 | PN ---
Date of Progress Note: 11/13/2018 Subjective: The patient was seen this morning for followup, lying, appears little tired this morning compared to yesterday evening because she did not sleep as well last night. She has lot of pain in her legs from her neuropathy and the current dose of gabapentin is not helping. So, we will consider to increase the dose. Denies any nausea, vomiting, shortness of breath. Her intake, output records reviewed. Last night for last 12 hours, she had about 450 cc urine output, so her urine output is i mproving on a day-to-day basis. This morning, when I saw her in her Duggan catheter bag, she already had approximately 200 cc of urine. Her vasopressor medication, we were able to discontinue around 9: 30 p.m. last night and after that, she has been able to maintain her systolic blood pressure over 100 . Physical Examination: HEENT: Unremarkable. Lungs: Clear to auscultation except minimum rales in the right lung base, not in any distress. Heart: Sounds normal. Abdomen: Soft. Bowel sounds normal. No guarding, rigidity, tenderness, distention. Extremities: No leg edema. Skin: Lower extremity, hypersensitive to touch. Laboratory Data: This morning, CBC is pending. Yesterday evening, CBC results reviewed. Hemoglobin was 8.1, and white count was still in range of 80,000. Platelets 55. This morning, sodium 138, pot assium 3.6, chloride 102, bicarb 27, BUN 108, creatinine 1.85, glucose 121. Impression: 1.Septic shock, improving. 2.Pneumonia. 3.Acute kidney injury. 4.Atrial fibrillation. 5.Peripheral neuropathy. 6.Generalized weakness. 7.Chronic lymphocytic leukemia. 8.Anemia. 9.Thrombocytopenia. Plan: We will make decision about blood transfusion depending on today's hemoglobin result. We will continue current antibiotics. Blood culture is growing gram-negative rods. Definite identification pending. The patient was started on IV fluid normal saline at 50 cc/hour yesterday evening. This m orning, we will increase dose to 75 cc/hour. Her urine output will be monitored. We will leave the Duggan catheter in right now. IV Protonix was started and the physical therapy was consulted. The janey david was encouraged to eat her meals and start to drink nutritional supplement like Ensure 3 times a day. We will increase dose of gabapentin. Grain Picker will change from IV amiodarone to oral dose form. Details were discussed with the family in ICU waiting room. I will see her tomorrow for foll owup. If she is stable by tomorrow for transfer to floor and we will consider that tomorrow morning, but today we will keep her in ICU for close monitoring. DELANO/MODL Voice ID: [id number] Report ID: [id number]
[2018-11-13 19:46] LABS: Absolute Lymphocytes (CBC) 56.5 K/uL (0.7-4.9); Absolute Monocytes 0.5 K/uL (0.1-1.3); Absolute Neutrophil 5.1 K/uL (1.8-8.0); Basophils % 0.3 % (0-1.3); Eosinophils % 0.4 % (0-4.4); Hematocrit 31.6 % (36.0-45.0); Lymphocytes % 90.5 % (15.3-44.8); Monocytes % 0.7 % (3.3-12.3); RBC Red Blood Cell Count 3.21 M/uL (3.86-4.86)
[2018-11-13] MEDS: INSULIN GLARGINE 100 UNITS/ML SQ SCH (20:19)
[2018-11-13] MEDS: AMIODARONE HCL 200 MG TAB PO SCH (20:19)
[2018-11-13] MEDS: ATORVASTATIN 10 MG TAB PO SCH (20:19)
[2018-11-13 23:44] LABS: Anisocytosis 1+; Blood Morphology Comment NOTED (NOT SEEN); Platelet Estimate DECR; Smudge Cells MANY
--- NOTE | 2018-11-13 23:47 | PN ---
Date of Progress Note: 11/13/2018 Ms. Groves this morning was switched to p.o. amiodarone from IV amiodarone. She is at 400 b.i.d. whic h we will give for 7 days and then go to 200 mg daily after that. She remains in sinus rhythm. She is normotensive. Remains on antibiotics for gram-negative rods. I will sign off her case for now. The patient is not a candidate for anticoagulation because of her chronic lymphocytic leukemia. Hope fully, she will remain in normal rhythm on amiodarone. We would be happy to see her as an outpatient in the office once she is stable. ALINA/ZACK Voice ID: [id number] Report ID: [id number]
[2018-11-14 06:06] LABS: Absolute Lymphocytes (CBC) 52.6 K/uL (0.7-4.9); Absolute Monocytes 0.5 K/uL (0.1-1.3); Absolute Neutrophil 4.2 K/uL (1.8-8.0); Basophils % 0.3 % (0-1.3); Eosinophils % 0.1 % (0-4.4); Hematocrit 30.4 % (36.0-45.0); Lymphocytes % 91.5 % (15.3-44.8); MPV 10.6 fL (7.6-11.3); Monocytes % 0.8 % (3.3-12.3); RBC Red Blood Cell Count 3.09 M/uL (3.86-4.86)
[2018-11-14 06:13] LABS: Magnesium 2.3 mg/dL (1.8-2.4)
[2018-11-14 06:49] LABS: Blood Morphology Comment NOT SEEN (NOT SEEN); Platelet Estimate DECR; Urine White Blood Cell Casts OK
[2018-11-14] MEDS: INSULIN -REGULAR HUMAN 50 UNIT/0.5 ML ML SQ SCH ×4 (07:30→20:40)
[2018-11-14] MEDS: Meropenem 1,000 MG in NA CHLORIDE 0.9% 100 ML IV SCH ×2 (08:20→20:38)
[2018-11-14] MEDS: CYANOCOBALAMIN 1,000 MCG TAB PO SCH (08:20)
[2018-11-14] MEDS: GABAPENTIN 300 MG CAP PO SCH ×3 (08:20→20:39)
[2018-11-14] MEDS: DULOXETINE 30 MG CAP PO SCH (08:20)
[2018-11-14] MEDS: PANTOPRAZOLE 40 MG INJ IVP SCH (08:21)
[2018-11-14] MEDS: AMIODARONE HCL 200 MG TAB PO SCH ×2 (08:21→20:39)
[2018-11-14] MEDS: NA CHLORIDE 0.9% 1,000 ML IV SCH ×2 (08:22→10:25)
[2018-11-14] MEDS: SLOWMAG PO SCH ×3 (08:33→20:40)
--- NOTE | 2018-11-14 08:56 | RAD REPORT ---
EXAM DESCRIPTION: Marycarmen Single View11/14/2018 6:30 am CLINICAL HISTORY: Shortness breath COMPARISON: November 14 FINDINGS: Diffuse interstitial lung opacities are present. Heart is mildly enlarged. Pacemaker lead is in place. PICC line is noted. IMPRESSION: Diffuse bilateral interstitial lung opacities. Most if not all of this is chronic. There may be a mild superimposed interstitial pulmonary edema
[2018-11-14] MEDS ORDERED: AMITRIPTYLINE 10 MG TAB PO ONE (11:30)
--- NOTE | 2018-11-14 15:15 | PN ---
Date of Progress Note: 11/14/2018 Subjective: The patient was seen this morning in ICU. She was lying in bed, not in distress, feelin g fine except complaining of lot of pain in her leg from her neuropathy and the current medications a re not helping, and describes her pain as really intense in her leg. Objective: Vital Signs: Reviewed. HEENT: Unremarkable. Lungs: Bilateral rales noted little more today than yesterday. Not in respiratory distress. Heart: Sounds normal. Abdomen: Soft. Bowel sounds normal. No guarding, rigidity, tenderness, or distention. Extremities: No leg edema. Laboratory Data: White count 57.6, hemoglobin 9.8, platelets 43. Sodium 137, potassium 4, chloride 103, bicarb 27, BUN 84, creatinine 1.39, glucose 166. Impression: 1.Acute renal failure, improving. 2.Pneumonia. 3.Septic shock, improved. 4.Chronic lymphocytic leukemia. 5.Thrombocytopenia. 6.Anemia. 7.Generalized weakness. 8.Peripheral neuropathy. Plan: We will go ahead and continue gabapentin at current dose. Gabapentin dose was increased yeste rday, so I will consider further dose modification on gabapentin over the next 2-3 days if needed. M eanwhile as of today, we will start her on amitriptyline 10 mg p.o. x1 dose now and then at bedtime t o be given on a regular basis. Incentive spirometer was advised for the patient to continue to work with physical therapy. We will continue current antibiotic, which is meropenem. We will repeat bloo d work tomorrow. Intake and output records reviewed, and we will reduce IV fluid rate. The patient is hemodynamically stable, and we will transfer her out of ICU to regular room today and possibly rem ove Duggan catheter tomorrow. Details were discussed with the patient and the patient's family member s in ICU waiting room. DELANO/MODL Voice ID: [id number] Report ID: [id number]
[2018-11-14] MEDS: ATORVASTATIN 10 MG TAB PO SCH (20:38)
[2018-11-14] MEDS: INSULIN GLARGINE 100 UNITS/ML SQ SCH (20:41)
[2018-11-14] MEDS ORDERED: AMITRIPTYLINE 10 MG TAB PO SCH (21:00)
[2018-11-15 05:40] LABS: Absolute Lymphocytes (CBC) 54.5 K/uL (0.7-4.9); Absolute Monocytes 0.4 K/uL (0.1-1.3); Absolute Neutrophil 3.4 K/uL (1.8-8.0); Basophils % 0.2 % (0-1.3); Eosinophils % 0.2 % (0-4.4); Hematocrit 29.2 % (36.0-45.0); Lymphocytes % 93.1 % (15.3-44.8); MPV 9.9 fL (7.6-11.3); Monocytes % 0.6 % (3.3-12.3); RBC Red Blood Cell Count 2.93 M/uL (3.86-4.86)
[2018-11-15 05:54] LABS: Magnesium 2.3 mg/dL (1.8-2.4); Potassium 4.5 mmol/L (3.5-5.1)
[2018-11-15] MEDS: GABAPENTIN 300 MG CAP PO SCH ×3 (08:26→21:30)
[2018-11-15] MEDS: Meropenem 1,000 MG in NA CHLORIDE 0.9% 100 ML IV SCH ×2 (08:26→21:31)
[2018-11-15] MEDS: CYANOCOBALAMIN 1,000 MCG TAB PO SCH (08:26)
[2018-11-15] MEDS: PANTOPRAZOLE 40 MG INJ IVP SCH (08:26)
[2018-11-15] MEDS: INSULIN -REGULAR HUMAN 50 UNIT/0.5 ML ML SQ SCH ×4 (08:27→21:00)
[2018-11-15] MEDS: AMIODARONE HCL 200 MG TAB PO SCH ×2 (08:27→21:30)
[2018-11-15] MEDS: SLOWMAG PO SCH ×3 (08:27→21:30)
[2018-11-15] MEDS ORDERED: AMITRIPTYLINE 10 MG TAB PO ONE (10:00)
--- NOTE | 2018-11-15 11:07 | RAD REPORT ---
EXAM DESCRIPTION: RAD - Chest Single View - 11/15/2018 10:18 am CLINICAL HISTORY: Pneumonia COMPARISON: November 14, November 13 TECHNIQUE: AP portable chest image was obtained 1014 hours . FINDINGS: Lung volumes are low similar to comparison. Defibrillator is in place. PICC line remains i n place. Interstitial and patchy alveolar opacities are present similar to the prior study. Mild card iomegaly remains. Trachea is midline. No pneumothorax or enlarging pleural effusion. No acute bony ab normality seen. No acute aortic findings suspected. IMPRESSION: Pulmonary edema findings from failure or volume overload are stable from prior day study .
--- NOTE | 2018-11-15 11:43 | PN ---
Date of Progress Note: 11/15/2018 Subjective: The patient was seen this morning for followup. Vital signs reviewed. Intake and outpu t records reviewed. Denies any shortness of breath. Hemodynamically, she is stable, maintaining anna quate amount of oxygen saturation. Her appetite is slowly improving, and she is drinking nutritional supplement as suggested. She has significant generalized weakness. Physical therapy order is in [place], but therapist has not started to work with her as I was told by nursing staff. Yesterday, she w as started on amitriptyline and she received 2 doses of 10 mg each, and she slept very well during ni ghttime, and today, she reported that her pain in her leg from neuropathy is somewhat better compared to yesterday. Objective: HEENT: Unremarkable. Lungs: Bilateral good equal air entry. Presence of rales in lower lung quijano, slightly better toda y than yesterday. Not in respiratory distress. Heart: Sounds normal. Abdomen: Soft. Bowel sounds normal. No guarding, rigidity, tenderness, or distention. Extremities: No leg edema. Laboratory Data: White count 58.5, hemoglobin 9.3, platelets 34. Sodium 140, potassium 4.5, chlorid e 106, bicarb 27, BUN 62, creatinine 1.12, glucose 169. Impression: 1.Pneumonia. 2.Septic shock, stable. 3.Acute renal failure, improved. 4.Anemia. 5.Thrombocytopenia. 6.Chronic lymphocytic leukemia. 7.Atrial fibrillation. 8.Generalized weakness and debility. Plan: We will continue current antibiotic, which is meropenem. IV fluid was discontinued yesterday. Renal function is improving. We will continue to monitor intake and output records. We will go ah ead and remove Duggan catheter today. The patient will continue her gabapentin and amitriptyline per order for neuropathy problem. I will follow up on today's chest x-ray, and after that, I will decide about transfer to medical floor. We will continue to monitor CBC. There is no need for any blood t ransfusion or platelet transfusion at this point, but we will consider that at appropriate time if it becomes necessary. Details and plan of treatment discussed with the patient's son and [facility]. For her diabetes, insulin Lantus dose was increased to 20 units at bedtime, and we will cont inue sliding scale insulin. DELANO/MODL Voice ID: [id number] Report ID: [id number]
[2018-11-15] MEDS: INSULIN GLARGINE 100 UNITS/ML SQ SCH (21:00)
[2018-11-15] MEDS: AMITRIPTYLINE 10 MG TAB PO SCH (21:30)
[2018-11-15] MEDS: ATORVASTATIN 10 MG TAB PO SCH (21:30)
[2018-11-16 05:03] LABS: Absolute Lymphocytes (CBC) 55.5 K/uL (0.7-4.9); Absolute Monocytes 0.6 K/uL (0.1-1.3); Absolute Neutrophil 3.5 K/uL (1.8-8.0); Basophils % 0.1 % (0-1.3); Eosinophils % 0.1 % (0-4.4); Hematocrit 27.3 % (36.0-45.0); Lymphocytes % 92.9 % (15.3-44.8); MPV 9.9 fL (7.6-11.3); RBC Red Blood Cell Count 2.72 M/uL (3.86-4.86)
[2018-11-16 05:17] LABS: Magnesium 2.3 mg/dL (1.8-2.4); Potassium 5.1 mmol/L (3.5-5.1)
[2018-11-16] MEDS: PANTOPRAZOLE 40MG TABLET PO SCH (06:29)
[2018-11-16] MEDS: INSULIN -REGULAR HUMAN 50 UNIT/0.5 ML ML SQ SCH ×4 (07:30→22:35)
[2018-11-16] MEDS: BUMETANIDE 1 MG TABLET PO SCH (08:36)
[2018-11-16] MEDS: AMIODARONE HCL 200 MG TAB PO SCH ×2 (08:37→22:01)
[2018-11-16] MEDS: GABAPENTIN 300 MG CAP PO SCH ×3 (08:37→22:01)
[2018-11-16] MEDS: CYANOCOBALAMIN 1,000 MCG TAB PO SCH (08:37)
[2018-11-16] MEDS: AMITRIPTYLINE 10 MG TAB PO SCH ×2 (08:38→22:00)
[2018-11-16] MEDS: SLOWMAG PO SCH ×3 (08:38→21:00)
[2018-11-16] MEDS: ACETAMINOPHEN 500 MG TAB PO PRN (10:20)
[2018-11-16] MEDS: Meropenem 1,000 MG in NA CHLORIDE 0.9% 100 ML IV SCH ×2 (10:22→22:02)
[2018-11-16] MEDS: ATORVASTATIN 10 MG TAB PO SCH (22:01)
[2018-11-16] MEDS: INSULIN GLARGINE 100 UNITS/ML SQ SCH (22:36)
--- NOTE | 2018-11-17 00:35 | PN ---
Date of Progress Note: 11/16/2018 Subjective: The patient was seen this morning for followup. She was lying in bed, not in any distre ss. Slept well last night. Her was present with her at bedside. Objective: Vital Signs: Reviewed. HEENT: Examination unremarkable. Lungs: Bilateral good equal air entry. Presence of some rales in lower lung field, unchanged from y esterday. Not in any respiratory distress. Heart: Sounds normal. Abdomen: Soft. Bowel sounds normal. No guarding, rigidity, tenderness, or distention. Extremities: No leg edema. Laboratory Data: White count 59.8, hemoglobin 8.5, and platelets 37. Sodium 139, potassium 5.1, chl oride 108, bicarb 28, BUN 54, creatinine 1.02, and glucose 162. Urine culture growing Escherichia co li. Impression: 1.Septic shock, improved. 2.Pneumonia. 3.Atrial fibrillation, paroxysmal. 4.Thrombocytopenia. 5.Anemia. 6.Diabetic neuropathy. 7.Diabetes mellitus. Plan: We will continue current medications and antibiotics. Continue amitriptyline and gabapentin f or neuropathy problem. Continue current insulin dose. Physical Therapy to work with the patient for her debility and generalized weakness. Renal function is improving everyday. The patient will star t her diuretic medication starting today. We will follow up on blood work again tomorrow. At approp riate time, we will consider discharge to go to nursing home facility, but the patient is not read y for discharge yet at this point. Monitor hemoglobin and platelet count, and we will consider transfusion of blood product if a nd when it becomes necessary. DELANO/MODL Voice ID: [id number] Report ID: [id number]
[2018-11-17] MEDS: PANTOPRAZOLE 40MG TABLET PO SCH (06:02)
[2018-11-17 06:24] LABS: Absolute Lymphocytes (CBC) 49.4 K/uL (0.7-4.9); Absolute Monocytes 0.3 K/uL (0.1-1.3); Basophils % 0.2 % (0-1.3); Eosinophils % 0.1 % (0-4.4); Hematocrit 26.4 % (36.0-45.0); Lymphocytes % 91.8 % (15.3-44.8); MPV 10.5 fL (7.6-11.3); Monocytes % 0.5 % (3.3-12.3); RBC Red Blood Cell Count 2.64 M/uL (3.86-4.86)
[2018-11-17 06:37] LABS: Magnesium 1.8 mg/dL (1.8-2.4); Potassium 4.9 mmol/L (3.5-5.1)
[2018-11-17] MEDS: INSULIN -REGULAR HUMAN 50 UNIT/0.5 ML ML SQ SCH ×4 (07:30→21:00)
[2018-11-17] MEDS ORDERED: MAGNESIUM SULFATE 1 gm IVPB 1 GM/100 ML BAG IV ONE (09:00)
[2018-11-17] MEDS: Meropenem 1,000 MG in NA CHLORIDE 0.9% 100 ML IV SCH ×2 (09:25→21:25)
[2018-11-17] MEDS: AMITRIPTYLINE 10 MG TAB PO SCH ×2 (09:27→21:18)
[2018-11-17] MEDS: HYDROCODONE/APAP 5/325 MG TAB PO SCH ×2 (09:28→21:17)
[2018-11-17] MEDS: CYANOCOBALAMIN 1,000 MCG TAB PO SCH (09:28)
[2018-11-17] MEDS: GABAPENTIN 300 MG CAP PO SCH ×4 (09:29→21:19)
[2018-11-17] MEDS: SLOWMAG PO SCH ×3 (09:29→21:18)
[2018-11-17] MEDS: AMIODARONE HCL 200 MG TAB PO SCH ×2 (09:29→21:17)
--- NOTE | 2018-11-17 10:28 | RAD REPORT ---
EXAM DESCRIPTION: Marycarmen Single View11/17/2018 10:03 am CLINICAL HISTORY: Shortness of breath COMPARISON: November 15, 2018 FINDINGS: The bilateral pulmonary opacities have mildly improved. The heart is mildly enlarged. Pac emaker leads are in place. IMPRESSION: Mild improvement in bilateral pulmonary opacities probably probably representing pulmona ry edema superimposed over pulmonary fibrosis
[2018-11-17] MEDS: BUMETANIDE 1 MG TABLET PO SCH (12:23)
[2018-11-17] MEDS: ATORVASTATIN 10 MG TAB PO SCH (21:19)
[2018-11-17] MEDS: INSULIN GLARGINE 100 UNITS/ML SQ SCH (21:25)
--- NOTE | 2018-11-17 23:10 | CON ---
Reason For Consultation: Consultation called by Dr. Suarez because of peripheral neuropathy and pain r elated to that. History Of Present Illness: Ms. Groves is an 83-year-old patient admitted with CHF exacerba tion and diffuse weakness in the lower extremities. She does have history of diabetes mellitus and f rom chart review, at least a 50-aecm-ngco history of hemoglobin A1c ranging around up to 9. In paral lel with her diabetes mellitus, she has had numbness in a distal to proximal pattern from her feet mo re than ankles, ankles more than legs, and toward the knee, bilateral and symmetric. She has also no sree changes in skin texture and color progressing from a distal to proximal fashion. The patient was admitted on the 10 of November with diffuse weakness and feeling tired. At [facility], chivo bernstein did have blood sugars ranging up to 248. She has been placed on gabapentin 300 mg 3 times daily, t he patient said for a few years, she is unsure how long, and she was recently treated with Elavil 10 mg twice daily. She does report mild improvement in her pain in the feet, which consists of tingling , pins and needles, burning sensation with some shooting lancinating components. Past Medical History: Significant for stage-3 kidney disease, chronic lymphocytic leukemia, atrial f ibrillation, diabetes mellitus, dyslipidemia, coronary artery disease, diverticulosis, aortic stenosi s, gastroesophageal reflux, and hypertension. Surgical History: Spinal stenosis surgery, AICD placement in 2012, tubal ligation, ulnar release of right hand, coronary artery angioplasty and stents, cataract surgery, appendectomy, breast biopsy, an d hysterectomy. Family History: Positive for pulmonary fibrosis and hypertension. Social History: No alcohol, tobacco, or IV drug use. Allergies: ATORVASTATIN, GEMFIBROZIL, AND SIMVASTATIN. Current Medications: [place] 5/325 twice daily as needed, albuterol nebulizer every 4 hours as needed, amiodarone 4 mg twice daily, Elavil 10 mg twice daily, Lipitor 10 mg at bedtime, Bumex 1 mg daily, v itamin B12 500 mcg daily, gabapentin now increased to 600 mg twice daily from 300 mg 3 times daily, L antus 20 units subcutaneously at bedtime, and she has received meropenem 1000 mg every 12 hours. Review of Systems: As indicated, Ms. Groves has had progressive pain and tingling, pins and needles sensation, burning in the feet more than legs and legs more than thighs in a symmetric pattern. Also had some diffuse wea kness in the lower extremities. Otherwise, some mild abdominal pain, arthralgias, and myalgias. Den ies headache or any psychiatric issues. Physical Examination: Vital Signs: Blood pressure 149/63, pulse 69, respiratory rate 18, temperature 97.2, and oxygen satu ration 98%. General: Ms. Groves is resting comfortably in bed. She is in no acute distress. HEENT: She is normocephalic and atraumatic. Sclerae are anicteric. Oropharynx is moist. Neck: Supple. Chest: Good air movement. Abdomen: Soft. Extremities: Show venous stasis changes from just below the knee and lower bilaterally, with brown d iscoloration, and she does have mild edema in the lower extremities. Neurological: Cranial Nerves: No deficits there. Upper Extremities: Motor strength is symmetric, at least 4+, proximally and distally. Lower Extremities: She has pain limiting her ability to dorsi flexion along with knee extension and flexion bilaterally. Hip flexion is at least 4+/5 bilaterally. Sensory Examination: She has a decrease to light touch, pinprick, and temperature in a stocking fa shion in the left lower extremity and in the upper extremities as well. Reflexes are absent at the p atellae and heels. She does have significant dysesthesia when touching the toes in the feet, more on the right than left side. The patient was not ambulated. She will be ambulated with Physical Thera py with gait belt. Laboratory Studies: White blood cell count 53.8, with 91.8% lymphocytes, hemoglobin 8.3, hematocrit 26.4, and platelets are 40. Sodium 138, potassium 4.9, chloride 104, carbon dioxide 29, BUN 48, crea tinine 1.01, and calcium 9.2. Hemoglobin A1c 6.0. Chest x-ray: Mild improvement in bilateral pulmo nary opacities, likely representing pulmonary edema superimposed over pulmonary fibrosis. Head CT sc an from the shows no acute intracranial abnormalities. Assessment: Ms. Groves is an 83-year-old patient with diabetic peripheral neuropathy. She is on a lo w dose of gabapentin as well as Elavil. The Elavil may produce some dry mouth and anticholinergic si de effects including urinary retention. Caution may be advised in a patient of her age. Plan: We will increase the gabapentin as indicated from 300 three times a day to 600 b.i.d. with a p heaven to increase to 900 b.i.d. or 1200 b.i.d. depending on response. Consider stopping the Elavil 10 mg twice a day. However, it should be noted if the patient does have a significant response with demario t Elavil, may consider keeping Elavil, but increasing hydration and moisturizing mouth as appropriate . The patient will continue with comorbid conditions as managed by Dr. Suarez. After discharge home, the patient may follow up with Dr. Quinonez in clinic 1 month later. DIMA/ZACK Voice ID: [id number] Report ID: [id number]
--- NOTE | 2018-11-18 02:09 | PN ---
Date of Progress Note: 11/17/2018 Subjective: The patient was seen this morning for followup. Lying in bed, not in distress. Still c ontinues to have a lot of pain in her leg from neuropathy. Appetite is fair to good. Objective: Vital Signs: Reviewed. HEENT: Unremarkable. Lungs: Bilateral good equal air entry. Presence of rales noted in lower lung quijano, unchanged. Heart: Sounds normal. Abdomen: Soft. Bowel sounds normal. No guarding, rigidity, tenderness, or distention. Extremities: No leg edema. Labs: Chest x-ray shows mild improvement in bilateral pulmonary opacity. White count 53.8, hemoglob in 8.3, platelets 40. Sodium 138, potassium 4.9, chloride 104, bicarb 29, BUN 48, creatinine 1.01, g lucose 169. Impression: 1.Pneumonia. 2.Chronic lymphocytic leukemia. 3.Anemia. 4.Thrombocytopenia. 5.Generalized weakness. Plan: The patient had significant generalized weakness, and upon discharge from the hospital, she wi ll need to go to fpc facility. Social Service was consulted and family will work with [facility] Service to make arrangements for her to go to [facility] facility of family's choice. Poss ible discharge by Friday if her condition is stable. Meanwhile, we will continue current IV antibiotic and other current medical management. We will repeat blood work tomorrow. Physical Thera py to continue to work with the patient. DELANO/MODL Voice ID: [id number] Report ID: [id number]
[2018-11-18] MEDS: PANTOPRAZOLE 40MG TABLET PO SCH (05:21)
[2018-11-18 05:40] LABS: Absolute Lymphocytes (CBC) 41.1 K/uL (0.7-4.9); Absolute Monocytes 0.2 K/uL (0.1-1.3); Absolute Neutrophil 3.9 K/uL (1.8-8.0); Basophils % 0.1 % (0-1.3); Eosinophils % 0.2 % (0-4.4); Hematocrit 26.8 % (36.0-45.0); Lymphocytes % 90.7 % (15.3-44.8); MPV 10.8 fL (7.6-11.3); Monocytes % 0.5 % (3.3-12.3); RBC Red Blood Cell Count 2.69 M/uL (3.86-4.86)
[2018-11-18 05:47] LABS: Magnesium 1.9 mg/dL (1.8-2.4); Potassium 4.8 mmol/L (3.5-5.1)
[2018-11-18] MEDS: INSULIN -REGULAR HUMAN 50 UNIT/0.5 ML ML SQ SCH ×4 (07:30→20:54)
[2018-11-18 07:56] LABS: Platelet Estimate DECR; Urine White Blood Cell Casts OK
[2018-11-18 07:57] LABS: Anisocytosis 1+; Blood Morphology Comment NOTED (NOT SEEN)
[2018-11-18] MEDS: GABAPENTIN 300 MG CAP PO SCH ×2 (09:31→20:55)
[2018-11-18] MEDS: BUMETANIDE 1 MG TABLET PO SCH (09:31)
[2018-11-18] MEDS: HYDROCODONE/APAP 5/325 MG TAB PO SCH ×2 (09:31→20:55)
[2018-11-18] MEDS: AMIODARONE HCL 200 MG TAB PO SCH ×2 (09:32→20:55)
[2018-11-18] MEDS: Meropenem 1,000 MG in NA CHLORIDE 0.9% 100 ML IV SCH ×2 (09:33→20:56)
[2018-11-18] MEDS: SLOWMAG PO SCH ×3 (09:34→20:56)
[2018-11-18] MEDS: AMITRIPTYLINE 10 MG TAB PO SCH ×2 (09:34→20:56)
[2018-11-18] MEDS: CYANOCOBALAMIN 1,000 MCG TAB PO SCH (10:00)
[2018-11-18] MEDS: ACETAMINOPHEN 500 MG TAB PO PRN (12:26)
[2018-11-18] MEDS: INSULIN GLARGINE 100 UNITS/ML SQ SCH (20:54)
[2018-11-18] MEDS: ATORVASTATIN 10 MG TAB PO SCH (20:56)
[2018-11-19] MEDS: PANTOPRAZOLE 40MG TABLET PO SCH (05:59)
[2018-11-19 06:21] LABS: Absolute Lymphocytes (CBC) 44.5 K/uL (0.7-4.9); Absolute Monocytes 0.4 K/uL (0.1-1.3); Basophils % 0.2 % (0-1.3); Eosinophils % 0.2 % (0-4.4); Lymphocytes % 90.7 % (15.3-44.8); MPV 10.4 fL (7.6-11.3); Monocytes % 0.8 % (3.3-12.3); RBC Red Blood Cell Count 2.64 M/uL (3.86-4.86)
[2018-11-19 06:33] LABS: Potassium 4.8 mmol/L (3.5-5.1)
[2018-11-19] MEDS: INSULIN -REGULAR HUMAN 50 UNIT/0.5 ML ML SQ SCH ×4 (07:30→21:36)
[2018-11-19] MEDS: HYDROCODONE/APAP 5/325 MG TAB PO SCH ×2 (09:08→21:35)
[2018-11-19] MEDS: AMIODARONE HCL 200 MG TAB PO SCH ×2 (09:08→21:34)
[2018-11-19] MEDS: SLOWMAG PO SCH ×3 (09:09→21:00)
[2018-11-19] MEDS: GABAPENTIN 300 MG CAP PO SCH ×2 (09:09→21:00)
[2018-11-19] MEDS: CYANOCOBALAMIN 1,000 MCG TAB PO SCH (09:09)
[2018-11-19] MEDS: AMITRIPTYLINE 10 MG TAB PO SCH ×2 (09:10→21:00)
[2018-11-19] MEDS: Meropenem 1,000 MG in NA CHLORIDE 0.9% 100 ML IV SCH ×2 (09:10→21:37)
[2018-11-19] MEDS: BUMETANIDE 1 MG TABLET PO SCH (09:22)
[2018-11-19] MEDS: ATORVASTATIN 10 MG TAB PO SCH (21:00)
[2018-11-19] MEDS: INSULIN GLARGINE 100 UNITS/ML SQ SCH (21:37)
[2018-11-20] MEDS: PANTOPRAZOLE 40MG TABLET PO SCH (05:30)
[2018-11-20] MEDS: INSULIN -REGULAR HUMAN 50 UNIT/0.5 ML ML SQ SCH ×4 (07:30→21:13)
[2018-11-20] MEDS: SLOWMAG PO SCH ×3 (08:40→21:10)
[2018-11-20] MEDS: BUMETANIDE 1 MG TABLET PO SCH (08:40)
[2018-11-20] MEDS: AMITRIPTYLINE 10 MG TAB PO SCH ×2 (08:40→21:12)
[2018-11-20] MEDS: CYANOCOBALAMIN 1,000 MCG TAB PO SCH (08:41)
[2018-11-20] MEDS: HYDROCODONE/APAP 5/325 MG TAB PO SCH ×2 (08:42→21:11)
[2018-11-20] MEDS: GABAPENTIN 300 MG CAP PO SCH ×2 (08:42→21:12)
[2018-11-20] MEDS: AMIODARONE HCL 200 MG TAB PO SCH (08:42)
[2018-11-20] MEDS: Meropenem 1,000 MG in NA CHLORIDE 0.9% 100 ML IV SCH ×2 (08:45→21:00)
[2018-11-20 11:35] LABS: Absolute Lymphocytes (CBC) 43.5 K/uL (0.7-4.9); Absolute Monocytes 0.4 K/uL (0.1-1.3); Absolute Neutrophil 3.5 K/uL (1.8-8.0); Basophils % 0.2 % (0-1.3); Eosinophils % 0.2 % (0-4.4); Hematocrit 26.3 % (36.0-45.0); Lymphocytes % 91.4 % (15.3-44.8); MPV 10.2 fL (7.6-11.3); Monocytes % 0.9 % (3.3-12.3); RBC Red Blood Cell Count 2.67 M/uL (3.86-4.86)
[2018-11-20 11:53] LABS: Albumin 2.2 g/dL (3.4-5.0); Bilirubin Total 0.7 mg/dL (0.2-1.0); Magnesium 1.8 mg/dL (1.8-2.4); Potassium 4.5 mmol/L (3.5-5.1); Protein, Total 6.1 g/dL (6.4-8.2)
[2018-11-20] MEDS: METOPROLOL XL 25 MG TAB PO SCH ×2 (12:07→21:10)
[2018-11-20] MEDS ORDERED: MAGNESIUM SULFATE 1 gm IVPB 1 GM/100 ML BAG IV ONE (14:31)
[2018-11-20] MEDS: ATORVASTATIN 10 MG TAB PO SCH (21:10)
[2018-11-20] MEDS: INSULIN GLARGINE 100 UNITS/ML SQ SCH (21:14)
--- NOTE | 2018-11-20 21:22 | EKG ---
Test Date: 2018-11-20 Test Time: 12:13:12 Optomechanical Engineer: RAIN MEASUREMENT RESULTS: Intervals: Rate: 68 CA: 170 QRSD: 144 QT: 448 QTc: 476 [place]: P: 39 CA: 170 QRS: -29 T: 85 INTERPRETIVE STATEMENTS: Normal sinus rhythm Left bundle branch block Abnormal ECG Compared to ECG 11/20/2018 07:57:24 Atrial fibrillation no longer present Electronically Signed On 11-20-18 21:20:29 SHOE TREER by Kyle Kwong
--- NOTE | 2018-11-20 21:23 | EKG ---
Test Date: 2018-11-20 Test Time: 07:57:24 Laborer Livestock: RAIN MEASUREMENT RESULTS: Intervals: Rate: 112 PA: QRSD: 150 QT: 376 QTc: 513 [place]: P: PA: QRS: -1 T: 94 INTERPRETIVE STATEMENTS: Atrial fibrillation with rapid ventricular response Left bundle branch block Abnormal ECG Compared to ECG 11/11/2018 17:47:50 No significant changes Electronically Signed On 11-20-18 21:20:36 ABRASIVE WORKER by Kyle Kwong
--- NOTE | 2018-11-21 01:25 | PN ---
Date of Progress Note: 11/20/2018 Subjective: The patient was seen this morning for followup and our plan eventually was to discharge her to go to half-way facility today, but when I arrived to floor to see her, I was notified b y nursing staff that the patient had just gone into atrial fibrillation with heart rate around 100 to 110 per minute. She was asymptomatic. Objective: Vital signs: Reviewed. General: Her son was present with her at bedside. HEENT Examination: Unremarkable. Lungs: Bilateral good and equal air entry. Presence of some rales in both lung bases. Heart: Sounds normal. Abdomen: Soft. Bowel sounds normal. No guarding, rigidity, tenderness, or distention. Extremities: No leg edema. Laboratory Data: White count 47.6, hemoglobin 8.3, platelets 56. Sodium 136, potassium 4.5, chlorid e 100, bicarb 30, BUN 46, creatinine 1.29, glucose 204. Liver function tests are unremarkable. Magn esium 1.8. Impression: 1.Paroxysmal atrial fibrillation. 2.Coronary artery disease. 3.Diabetic neuropathy. 4.Septic shock, resolved. 5.Pneumonia. 6.Thrombocytopenia. 7.Anemia. 8.Chronic lymphocytic leukemia. 9.Generalized weakness. Plan: After the patient went into atrial fibrillation with rapid ventricular rate this morning, I di d talk to paper goods machine set up operator, Dr. Kwong, and he suggested to add low-dose metoprolol 25 mg twice a day wh ich was started, and the patient did convert back to sinus rhythm later on today. Her amiodarone she was getting 400 mg twice a day, so far she has received loading dose for 1 week, and the dose was re duced today to 200 mg daily per my discussion with paper goods machine set up operator. The patient is not a candidate for any anticoagulation therapy because of her thrombocytopenia problem. So, at this point, we will canc el our discharge plan for today. We will see her tomorrow and very likely we probably will end up ke eping her in the hospital over the weekend for monitoring and continuation of current therapy and if she ends up having this atrial fibrillation problem, then obviously we will have to have some discuss ion with the family about ablation and pacemaker placement type of procedure, and if that becomes nec essary down the line we may have to transfer her to [place]. Hopefully, we should be able to help co ntrol her problems with current medications and I will see her tomorrow for followup. DELANO/MODL Voice ID: [id number] Report ID: [id number]
--- NOTE | 2018-11-21 01:40 | PN ---
Date of Progress Note: 11/19/2018 Subjective: The patient was seen for followup in the morning. She was lying in bed. Denied any com plaints. Objective: Vital Signs: Reviewed. HEENT Examination: Unremarkable. Lungs: Bilateral good equal air entry, not in any distress. Presence of some rales in lower lung fi elds, better than before. Heart: Sounds normal. Abdomen: Soft. Bowel sounds normal. No guarding, rigidity, tenderness, or distention. Extremities: No leg edema. Laboratory Data: White count 49, hemoglobin 8.3, platelets 56. Sodium 137, potassium 4.8, chloride 102, bicarb 30, BUN 49, creatinine 1.08, glucose 147. Impression: 1.Pneumonia. 2.Septic shock, resolved. 3.Coronary artery disease. 4.Paroxysmal atrial fibrillation. 5.Thrombocytopenia. 6.Anemia. 7.Chronic lymphocytic leukemia. 8.Generalized weakness. Plan: We will go ahead and continue current antibiotics. Physical Therapy to work with the patient. Family is working with Social Service for possible discharge to go to [facility] facility stiven rr. We will continue IV antibiotics while here in the hospital, but upon discharge plan is to cuenca ge it to oral antibiotics when she goes to [facility] facility. Details were discussed with the patient and family. I will see he r tomorrow. DELANO/MODL Voice ID: [id number] Report ID: [id number]
--- NOTE | 2018-11-21 02:04 | PN ---
Date of Progress Note: 11/18/2018 Subjective: The patient was seen for followup in the morning. She was lying in bed, not in distress . Her family was with her at bedside. Denies any new complaints. No nausea, vomiting. Objective: Vital Signs: Reviewed. HEENT: Unremarkable. Lungs: Bilateral good equal air entry. Presence of some rales in lower lung quijano. Not using acce ssory muscles of respiration. Heart: Sounds normal. Abdomen: Soft. Bowel sounds normal. No guarding, rigidity, tenderness, or distention. Extremities: No leg edema. Laboratory Data: Sodium 138, potassium 4.8, chloride 103, bicarb 29, BUN 44, creatinine 0.96, glucos e 141, and magnesium 1.9. Impression: 1.Pneumonia. 2.Anemia. 3.Thrombocytopenia. 4.CLL. 5.Generalized weakness. 6.Debility. 7.Coronary artery disease. Plan: We will go ahead and continue current medications. Continue current antibiotics. Physical th erapy to work with the patient. We will continue to monitor renal function, electrolytes, and blood count. No need for any blood transfusion at this point. Family to work with Social Service for disc harge planning. Details were discussed with the patient and family. We will continue current medications for her neuropathy, which is amitriptyline as well as gabapentin. DELANO/MODL Voice ID: [id number] Report ID: [id number]
[2018-11-21] MEDS: PANTOPRAZOLE 40MG TABLET PO SCH (05:19)
[2018-11-21 05:20] LABS: Potassium 4.3 mmol/L (3.5-5.1)
[2018-11-21] MEDS: INSULIN -REGULAR HUMAN 50 UNIT/0.5 ML ML SQ SCH ×4 (07:30→21:02)
[2018-11-21] MEDS: Meropenem 1,000 MG in NA CHLORIDE 0.9% 100 ML IV SCH ×2 (10:15→21:03)
[2018-11-21] MEDS: BUMETANIDE 1 MG TABLET PO SCH (10:16)
[2018-11-21] MEDS: AMITRIPTYLINE 10 MG TAB PO SCH ×2 (10:16→21:01)
[2018-11-21] MEDS: GABAPENTIN 300 MG CAP PO SCH ×2 (10:16→21:01)
[2018-11-21] MEDS: METOPROLOL XL 25 MG TAB PO SCH ×2 (10:17→21:01)
[2018-11-21] MEDS: AMIODARONE HCL 200 MG TAB PO SCH (10:17)
[2018-11-21] MEDS: CYANOCOBALAMIN 1,000 MCG TAB PO SCH (10:17)
[2018-11-21] MEDS: HYDROCODONE/APAP 5/325 MG TAB PO SCH (10:18)
[2018-11-21] MEDS: SLOWMAG PO SCH ×3 (10:20→21:01)
--- NOTE | 2018-11-21 14:52 | PN ---
Date of Progress Note: 11/21/2018 Patient was seen this morning for followup. Her and daughter were present with her at bedsid e. Lying in bed. She appears weaker than normal for last couple of days. Objective: Vital Signs: Reviewed. HEENT: Examination unremarkable. Lungs: Clear to auscultation except basal rales, not in respiratory distress. Heart: Sounds normal. Abdomen: Soft. Bowel sounds normal. No guarding, rigidity, tenderness, or distention. Extremities: No leg edema. Upon gentle touch to her legs, she is not complaining of pain like the wa y she did before from her neuropathy problem. She does have new bruise on the right posteromedial as pect of the right foot. No evidence of any infection there. Laboratory Data: Sodium 134, potassium 4.3, chloride 98, bicarb 29, BUN 57, creatinine 1.27, glucose 154, magnesium 2. Yesterday's white count was 47.6, hemoglobin 8.3, platelets 56. Impression: 1.Pneumonia. 2.Paroxysmal atrial fibrillation. 3.Chronic lymphocytic leukemia. 4.Anemia. 5.Thrombocytopenia. 6.Generalized weakness. 7.Debility. Plan: We will go ahead and continue current antibiotics. Repeat blood work tomorrow. certified respiratory therapist apy to continue to work with the patient. The patient has significant generalized weakness and debil ity. She has not been able to walk yet or stand as a matter of fact. We will reduce the dose of ami triptyline from 10 mg twice a day to 10 mg at bedtime. I will discontinue [place] 5 mg b.i.d. and star t her on Tylenol with Codeine 1 tablet at bedtime. Continue her current gabapentin and other current medical management. The patient was encouraged to eat. [facility]. She did convert to sinus rhyt hm yesterday. DELANO/MODL Voice ID: [id number] Report ID: [id number]
[2018-11-21] MEDS: INSULIN GLARGINE 100 UNITS/ML SQ SCH (21:02)
[2018-11-21] MEDS: CODEINE 30MG/APAP 300MG TAB PO SCH (21:02)
[2018-11-21] MEDS: ATORVASTATIN 10 MG TAB PO SCH (21:02)
[2018-11-22] MEDS: PANTOPRAZOLE 40MG TABLET PO SCH (05:28)
--- NOTE | 2018-11-22 07:04 | EKG ---
Test Date: 2018-11-21 Test Time: 22:28:21 Software Engineer Web Services: RT Carranza MEASUREMENT RESULTS: Intervals: Rate: 65 GA: 164 QRSD: 144 QT: 442 QTc: 459 [place]: P: 17 GA: 164 QRS: -21 T: 68 INTERPRETIVE STATEMENTS: Normal sinus rhythm Left bundle branch block Abnormal ECG Compared to ECG 11/21/2018 21:18:40 Atrial fibrillation no longer present Electronically Signed On 11-22-18 07:04:22 VENEER MARKER by Kyle Kwong
--- NOTE | 2018-11-22 07:05 | EKG ---
Test Date: 2018-11-21 Test Time: 21:18:40 Acquisition Manager: RT Carrnaza MEASUREMENT RESULTS: Intervals: Rate: 123 [place]: QRSD: 148 QT: 354 QTc: 506 [place]: P: [place]: QRS: -26 T: 54 INTERPRETIVE STATEMENTS: Atrial fibrillation with rapid ventricular response Left bundle branch block Abnormal ECG Compared to ECG 11/20/2018 12:13:12 Sinus rhythm no longer present Electronically Signed On 11-22-18 07:04:28 ARMY OFFICER by Kyle Kwong
[2018-11-22] MEDS: INSULIN -REGULAR HUMAN 50 UNIT/0.5 ML ML SQ SCH ×4 (07:30→20:32)
[2018-11-22] MEDS: Meropenem 1,000 MG in NA CHLORIDE 0.9% 100 ML IV SCH ×2 (08:47→20:33)
[2018-11-22] MEDS: METOPROLOL XL 25 MG TAB PO SCH ×2 (08:47→20:31)
[2018-11-22] MEDS: AMIODARONE HCL 200 MG TAB PO SCH (08:48)
[2018-11-22] MEDS: GABAPENTIN 300 MG CAP PO SCH ×2 (08:48→20:30)
[2018-11-22] MEDS: CYANOCOBALAMIN 1,000 MCG TAB PO SCH (08:48)
[2018-11-22] MEDS: BUMETANIDE 1 MG TABLET PO SCH (08:53)
[2018-11-22] MEDS: SLOWMAG PO SCH ×3 (08:54→20:30)
--- NOTE | 2018-11-22 11:53 | PN ---
Date of Progress Note: 11/22/2018 Subjective: The patient was seen this morning for followup, lying in bed, not in any distress. Her and daughter were present with her at bedside. She looks more alert and less tired. DELANO/ZACK Voice ID: [id number] Report ID: [id number]
--- NOTE | 2018-11-22 15:29 | PN ---
Plan: We will continue current amiodarone and metoprolol, and as long as patient is hemodynamically stable and we were able to manage her atrial fibrillation problem with this medication conservatively , we would like to continue that, but in future if you are not able to control it, then one has to co nsider ablation type of procedure, but considering her current situation, it will be a high risk, so obviously we would like to delay this kind of procedure as long as possible, but there is no need for any such intervention at this point. Details were discussed with the patient and her family. Physi poppy therapy to work with her. Continue current antibiotics. Possible discharge to go to nursing [facility] tomorrow, and we will repeat blood work tomorrow morning. The patient is not a candidate for any a nticoagulation therapy. DELANO/MODL Voice ID: [id number] Report ID: [id number]
[2018-11-22] MEDS: AMITRIPTYLINE 10 MG TAB PO SCH (20:30)
[2018-11-22] MEDS: CODEINE 30MG/APAP 300MG TAB PO SCH (20:31)
[2018-11-22] MEDS: ATORVASTATIN 10 MG TAB PO SCH (20:31)
[2018-11-22] MEDS: INSULIN GLARGINE 100 UNITS/ML SQ SCH (20:32)
[2018-11-23 04:39] LABS: Absolute Lymphocytes (CBC) 54.7 K/uL (0.7-4.9); Absolute Monocytes 0.7 K/uL (0.1-1.3); Absolute Neutrophil 2.7 K/uL (1.8-8.0); Basophils % 0.2 % (0-1.3); Eosinophils % 0.3 % (0-4.4); Hematocrit 23.5 % (36.0-45.0); Lymphocytes % 93.7 % (15.3-44.8); MPV 10.7 fL (7.6-11.3); Monocytes % 1.2 % (3.3-12.3); RBC Red Blood Cell Count 2.41 M/uL (3.86-4.86)
[2018-11-23 04:50] LABS: Magnesium 1.9 mg/dL (1.8-2.4); Potassium 4.2 mmol/L (3.5-5.1)
[2018-11-23] MEDS: PANTOPRAZOLE 40MG TABLET PO SCH (06:25)
[2018-11-23 06:29] VITALS: BMI 28.8
[2018-11-23] MEDS: INSULIN -REGULAR HUMAN 50 UNIT/0.5 ML ML SQ SCH ×4 (07:30→21:05)
[2018-11-23] MEDS ORDERED: DIPHENHYDRAMINE 25 MG TAB/CAP PO ONE (08:18)
[2018-11-23] MEDS ORDERED: ACETAMINOPHEN 500 MG TAB PO ONE (08:18)
[2018-11-23 08:48] LABS: Platelet Estimate DECR
[2018-11-23 08:49] LABS: Anisocytosis 2+; Blood Morphology Comment NOTED (NOT SEEN)
[2018-11-23] MEDS: SLOWMAG PO SCH ×3 (08:54→21:06)
[2018-11-23] MEDS: Meropenem 1,000 MG in NA CHLORIDE 0.9% 100 ML IV SCH ×2 (08:54→21:05)
[2018-11-23] MEDS: GABAPENTIN 300 MG CAP PO SCH ×2 (08:55→21:07)
[2018-11-23] MEDS: CYANOCOBALAMIN 1,000 MCG TAB PO SCH (08:56)
[2018-11-23] MEDS: AMIODARONE HCL 200 MG TAB PO SCH (08:56)
[2018-11-23] MEDS: BUMETANIDE 1 MG TABLET PO SCH (08:56)
[2018-11-23] MEDS: METOPROLOL XL 25 MG TAB PO SCH ×2 (08:57→21:16)
[2018-11-23] MEDS ORDERED: NA CHLORIDE 0.9% 100 ML IV ONE (11:14)
[2018-11-23 20:46] LABS: Hematocrit 26.7 % (36.0-45.0)
[2018-11-23] MEDS: INSULIN GLARGINE 100 UNITS/ML SQ SCH (21:06)
[2018-11-23] MEDS: ATORVASTATIN 10 MG TAB PO SCH (21:07)
[2018-11-23] MEDS: AMITRIPTYLINE 10 MG TAB PO SCH (21:07)
[2018-11-23] MEDS: CODEINE 30MG/APAP 300MG TAB PO SCH (21:16)
--- NOTE | 2018-11-24 01:31 | PN ---
Date of Progress Note: 11/23/2018 Subjective: The patient was seen this morning for followup. No new complaints, problems reported by her. Denies any shortness of breath, chest pain, nausea, vomiting. Objective: Vital Signs: Reviewed. HEENT: Examination unremarkable. Lungs: Clear to auscultation. Not in any respiratory distress. Heart: Sounds normal. Abdomen: Soft. Bowel sounds normal. No guarding, rigidity, tenderness, or distention. Extremities: No leg edema. Laboratory Data: White count 58.3, hemoglobin 7.5, platelets 57. Sodium 134, potassium 4.2, chlorid e 98, bicarb 30, BUN 69, creatinine 1.17, glucose 119. Impression: 1.Pneumonia. 2.Chronic lymphocytic leukemia. 3.Anemia. 4.Thrombocytopenia. 5.Paroxysmal atrial fibrillation. Plan: We will go ahead and cancel our discharge plan for today considering her anemia problem, give her blood transfusion per order. Continue current antibiotics. We will repeat blood work after bloo d transfusion and depending on her condition tomorrow, we will decide if she is stable for discharge tomorrow to go to retirement or not. Details were discussed with the patient and her who was at bedside this morning. DELANO/MODL Voice ID: [id number] Report ID: [id number]
[2018-11-24] MEDS: PANTOPRAZOLE 40MG TABLET PO SCH (07:15)
[2018-11-24] MEDS: INSULIN -REGULAR HUMAN 50 UNIT/0.5 ML ML SQ SCH ×2 (07:30→11:30)
[2018-11-24] MEDS: BUMETANIDE 1 MG TABLET PO SCH (08:24)
[2018-11-24] MEDS: CYANOCOBALAMIN 1,000 MCG TAB PO SCH (08:24)
[2018-11-24] MEDS: GABAPENTIN 300 MG CAP PO SCH (08:24)
[2018-11-24] MEDS: METOPROLOL XL 25 MG TAB PO SCH (08:24)
[2018-11-24] MEDS: SLOWMAG PO SCH (08:25)
[2018-11-24] MEDS: Meropenem 1,000 MG in NA CHLORIDE 0.9% 100 ML IV SCH (08:25)
[2018-11-24] MEDS: AMIODARONE HCL 200 MG TAB PO SCH (08:26)
[2018-11-24 11:02] VITALS: O2SAT 96
[2018-11-24 13:02] VITALS: BP 122/50; TEMP 97.2
== END 2018-11-24 13:39 | DRG 871 ==
LOC: ER 07:49 → ERHOLD 09:49 → 4TH 10:17 → 3RD-ICU 11-11 16:30 → 4TH 11-15 14:30
PROVIDERS: ADMIT Internal Medicine; ATTEND Internal Medicine
PROC: 30233N1 Transfusion of Nonautologous Red Blood Cells into Peripheral Vein, Percutaneous Approach (ICD-10-PCS; principal; 2018-11-11)
PROC: 5A2204Z Restoration of Cardiac Rhythm, Single (ICD-10-PCS; 2018-11-11)
PROC: 02HV33Z Insertion of Infusion Device into Superior Vena Cava, Percutaneous Approach (ICD-10-PCS; 2018-11-11)
PROC: B548ZZA Ultrasonography of Superior Vena Cava, Guidance (ICD-10-PCS; 2018-11-11)
DX: A41.50 Gram-negative sepsis, unspecified (principal); I50.23 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systolic (congestive) heart failure; J18.9 Pneumonia, unspecified organism; R65.21 Severe sepsis with septic shock; I13.0 Hypertensive heart and chronic kidney disease with heart failure and stage 1 through stage 4 chronic kidney disease, or unspecified chronic kidney disease; C91.10 Chronic lymphocytic leukemia of B-cell type not having achieved remission; N17.9 Acute kidney failure, unspecified; N18.3 Chronic kidney disease, stage 3 (moderate); E11.22 Type 2 diabetes mellitus with diabetic chronic kidney disease; D69.6 Thrombocytopenia, unspecified; D64.9 Anemia, unspecified; I25.10 Atherosclerotic heart disease of native coronary artery without angina pectoris; Z95.5 Presence of coronary angioplasty implant and graft; E78.5 Hyperlipidemia, unspecified; E11.42 Type 2 diabetes mellitus with diabetic polyneuropathy; K21.9 Gastro-esophageal reflux disease without esophagitis; K57.90 Diverticulosis of intestine, part unspecified, without perforation or abscess without bleeding; Z95.810 Presence of automatic (implantable) cardiac defibrillator; R09.02 Hypoxemia; Z95.2 Presence of prosthetic heart valve; I95.9 Hypotension, unspecified; I48.0 Paroxysmal atrial fibrillation; R53.1 Weakness; R53.81 Other malaise
CPT/HCPCS: 36415; 36430; 51702; 70450; 71045; 80048; 80053; 81003; 81015; 82024; 82140; 82533; 82550; 82553; 82607; 82746; 82805; 82962; 83036; 83605; 83735; 83880; 84145; 84443; 84484; 85014; 85018; 85025; 85049; 85610; 86850; 86900; 86901; 86922; 87040; 87077; 87086; 87088; 87186; 87205; 93005; 93306; 96374; 97110; 97112; 97163; 97530; 99285; C9113; J0282; J0696; J0834; J1160; J1940; J2250; J2405; J2550; J3475; J7030; J7060; P9016; P9035

== ENCOUNTER 2018-12-07 09:57 | Inpatient (IN) | payer OTHER ==
[2018-12-07 11:00] LABS: Protime INR 1.11
[2018-12-07 11:02] LABS: Absolute Lymphocytes (CBC) 38.8 K/uL (0.7-4.9); Absolute Monocytes 0.6 K/uL (0.1-1.3); Basophils % 0.3 % (0-1.3); Eosinophils % 0.1 % (0-4.4); Hematocrit 22.1 % (36.0-45.0); Lymphocytes % 93.3 % (15.3-44.8); MPV 9.9 fL (7.6-11.3); Monocytes % 1.4 % (3.3-12.3); RBC Red Blood Cell Count 2.21 M/uL (3.86-4.86)
--- OUTSIDE RECORDS SUMMARY | 2018-12-07 11:06 | XMS REPORT | Continuity of Care Document ---
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 [address] [place] [address] with heart failure 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[facility] systolic heart [address] [place] [address] failure 3 MONTHS Active [address] HOSPITAL F/U Active [address] CHEST PAIN Active [address] Nonrheumatic [facility] aortic stenosis [address] [place] [address] HOSPITAL FOLLOW Active [address] SHORTNESS OF Active [facility] BREATH [address] [place] [address] DR HAIRSTON TOLD PT Active [facility] TO COME [address] [place] [address] 1 WK POST OP F/U Active [address] PULMONARY Active [facility] FUNCTION TEST [address] [place] [address] TAVR Active [address] AORTIC STENOSIS Active [address] ARTIC STENOSIS Active [address] DX:CAD / Active [address] CCL/R Active [address] A FIB Active [address] SCI Active 012 Rehabilitation LUMBAR RAD Active [place] [address] [facility], Rehabilitation Low back Resolved Problem Data [facility] pain<sup>1, 2, 012 9 migrated Medical 3</sup> from Center, [facility] Center for Adv on 06/20/15. Heart Failure, ZACH Jordan,[facility] Spinal stenosis Active Problem Data [facility] lumbar 012 8 migrated Medical region<sup>4, from Center, 5</sup> Centricity Center for Adv on 06/20/15. Heart Failure LUMBAR Active [facility] RADICULOPATHY [address] [place] [address] Diabetes Resolved Problem [facility] for 997 9 Adv Heart Failure,[facility] Diabetes Resolved Problem [facility] for 997 8 Adv Heart Failure,[facility] Diabetes Resolved Problem [facility] for 7 8 Adv Heart Failure,[facility] Breast biopsy and Resolved Problem [facility] related Medical procedures Center, Center for Adv Heart Failure,[facility] CAD - Coronary Active Problem [facility] artery disease [address] [place] [address], Center for Adv Heart Failure, ZACH Jordan,[facility] DM - Diabetes Active Problem [facility] mellitus [address] [place] [address], Center for Adv Heart Failure,[facility] Heart attack Resolved Problem [address], Center for Adv Heart Failure, ZACH Jordan,[facility] Laminectomy Resolved Problem [address], Center for Adv Heart Failure,[facility] Lumbar region Resolved Problem [facility] injury [address] [place] [address], Center for Adv Heart Failure, ZACH Jordan,[facility] O/E - pain Resolved Problem [address], [facility] Stented artery Active Problem [address] Center, [facility] for Adv Heart Failure, KATHERINETere Jordan Final: Illness, [facility] unspecified [address] [place] [address] Center Severe aortic Active Problem [facility] Active Problem OPID lymphocytic 9 [facility] leukemia of [facility] B-cell type not Center having achieved remission Foot swelling Resolved [facility]N (<span Active Problem OPID ID="[id number]" 9 [facility] >Confirmed</span> [facility] Center 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 Essential [facility] hypertension [address] [place] [address] Hyperlipidemia, [facility] unspecified [address] [place] [address] Center Type 2 diabetes [facility] mellitus with Medical Center unspecified complications Anemia, [facility] unspecified [address] [place] [address] Center Other fatigue [address] [facility]ot[facility], [facility] [address] [place] [address] Center 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 [address] [place] [address] Center valve Type 2 diabetes [facility] mellitus without Medical Center complications Atherosclerotic [facility] heart disease of [address] [place] [address] barrow coronary artery without angina pectoris Acute myocardial [facility] infarction, [address] [place] [address] Center unspecified Spinal stenosis, [facility] lumbar region [address] [place] [address] Center without neurogenic claudication Other specified [facility] postprocedural [address] [place] [address] states Acute respiratory [facility] failure with [address] [place] [address] Center hypoxia Presence of [facility] automatic cardiac [address] [place] [address] defibrillator Ischemic [facility]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 [address] [place] [address] Center Shortness of [facility] breath [address] [place] [address] Center 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 [address] [place] [address] Center Acidosis [address] Center Alkalosis [address] Center Type 2 diabetes [facility] mellitus with Medical Center hyperglycemia Other disorders [facility] of phosphorus [address] [place] [address] Center metabolism Hypermagnesemia [address] Center Thrombocytopenia, [facility] unspecified 8 Medical Center Cardiomyopathy, [facility] unspecified [address] [place] [address] Center Acute kidney [facility] failure, Medical Center unspecified Hypo-osmolality [facility] and hyponatremia 8 [facility] 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 8 Medical Center 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[place] [address]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 in [facility] neoplastic [address] [place] [address] Center disease Presence of [facility] coronary [address] [place] [address] Center angioplasty implant and graft Claustrophobia [address] Center Anxiety disorder, [facility] unspecified [address] [place] [address] Center Monoarthritis, [facility]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, 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 [address] [place] [address] Center [facility] use of [facility] insulin [address] [place] [address] Center long term care pharmacist use of [facility] anticoagulants [address] [place] [address] Center Constipation, [facility] unspecified [address] [place] [address] Center Other [facility] chondrocalcinosis [address] [place] [address] Center , right knee Other [facility] chondrocalcinosis [address] [place] [address] , left wrist Other [facility] chondrocalcinosis [address] [place] [address] Center , right wrist Hyperkalemia [address] Splenomegaly, not OPID elsewhere [address] [place] [address] classified Localized OPID enlarged lymph [address] [place] [address] nodes CAD - Coronary Active Problem [facility] artery disease [address] [place] [address], OPITere Jordan DM - Diabetes Active Problem [facility] mellitus [address] [place] [address], OPID Julian Laminectomy Active Problem [address], OPID [place] O/E - pain Active Problem [address], OPID Julian Stented artery Active Problem [address], OPID Julian Heart attack Active Problem [address], OPID [place] Cataract Resolved Problem OPID Krystina Jordan,[facility] Breast biopsy and Resolved Problem [facility] related [address] [place] [address] procedures Cataract Resolved Problem [address] Lumbar region Resolved Problem [facility] injury 3 Medical Center LUMBOSACRAL Active [facility] NEURITIS NOS Medical [place] LUMBAR DISC Active DISPLACEMENT Rehabilitation, [facility] OTHER GENERAL Active SYMPTOMS Rehabilitation ILLNESS, Active [facility] UNSPECIFIED [facility] SHORTNESS OF Active [facility] BREATH [facility] ANEMIA, Active [facility] Medications Medication Details Route Status Patient Ordering Order Source Instructions Provider Date Aspirin 81 MG 81 mg=1 tab, Active [facility] Enteric Coated PO, Daily, # 2019 Medical Tablet 90 tab, 3 Center Refill(s) gabapentin 300 300 mg=1 cap, Active 10/29[facility] MG Oral Capsule PO, BID, 0 2019 Medical Refill(s) Center DULoxetine 30 mg 30 mg=1 cap, Active 10/29[facility] oral delayed PO, Daily, 0 2019 Medical release capsule Refill(s) [place] potassium 20 mEq=1 tab, Active [facility] chloride 20 mEq PO, Daily, # 2018 Medical oral tablet, 30 tab, 3 Center extended release Refill(s) valsartan 40 mg 40 mg=1 tab, Active 05/01[facility] oral tablet PO, BID, # 60 2018 Medical tab, 6 Center Refill(s) clopidogrel 75 75 mg=1 tab, Active [facility] mg oral tablet PO, Daily, # 2018 Medical 30 tab, 6 Center Refill(s) carvedilol 12.5 12.5 mg=1 Active 05/01[facility] mg oral tablet tab, PO, BID, 2018 Medical # 60 tab, 6 Center Refill(s) bumetanide 1 mg 1 mg=1 tab, Active 05/01[facility] oral tablet PO, Daily, # 2018 Medical 30 tab, 6 Center Refill(s) Bumex 1 mg, 1 tab, No Longer [facility] Route: PO, Active 2017 Medical Drug form: [place] TAB, Daily, Dosing Weight 64.091, kg, Start date: 04/30/18 9:00:00 CDT, Duration: 30 day, Stop date: 05/29/18 9:00:00 CDTNotes: (Same As: Bumex) Bumex 2 mg, 8 mL, No Longer [facility] Route: IV, Active 2017 Medical Drug form: [place] INJ, TID, Dosing Weight 64.091, kg, Start date: 04/27/18 13:00:00 CDT, Stop date: 04/29/18 22:00:00 CDTNotes: (Same As: Bumex) Vitamin B 12 250 No Longer [place] microgram, 1 Active 2018 Medical tab, Route: Center PO, Drug form: TAB, Daily, Dosing Weight 64.091, kg, Start date: 04/26/18 9:00:00 CDT, Duration: 30 day, Stop date: 05/25/18 9:00:00 CDTNotes: (Same As: Vitamin B12) clopidogrel 75 mg, 1 tab, No Longer [facility] Route: PO, Active 2017 Medical Drug form: [place] TAB, Daily, Dosing Weight 64.091, kg, Start date: 04/26/18 9:00:00 CDT, Duration: 30 day, Stop date: 05/25/18 9:00:00 CDTNotes: (Same As: Plavix) carvedilol 12.5 mg, 1 No Longer [facility] tab, Route: Active 2017 Medical PO, Drug Center form: TAB, BID, Dosing Weight 64.091, kg, Start date: 04/26/18 9:00:00 CDT, Duration: 30 day, Stop date: 05/25/18 17:00:00 CDTNotes: Give with food. (Same As: Coreg) valsartan 40 mg, 1 tab, No Longer [facility] Route: PO, Active 2017 Medical Drug form: [place] TAB, BID, Dosing Weight 64.091, kg, Start date: 04/26/18 9:00:00 CDT, Duration: 30 day, Stop date: 05/25/18 17:00:00 CDTNotes: Same as Mikevan Aspirin 81 MG 81 mg, 1 tab, No Longer [facility] Chewable Tablet Route: PO, Active 2017 Medical Drug form: [place] CHEWTAB, Daily, Dosing Weight 64.091, kg, Start date: 04/26/18 9:00:00 CDT, Duration: 30 day, Stop date: 05/25/18 9:00:00 CDTNotes: Take with food. NIFEdipine 30 mg 30 mg, 1 tab, No Longer [facility] oral tablet, Route: PO, Active 2018 Medical extended release Drug form: [place] ERTAB, Daily, Dosing Weight 64.091, kg, Start date: 04/26/18 9:00:00 CDT, Duration: 30 day, Stop date: 05/25/18 9:00:00 CDT heparin sodium, 5,000 unit, 1 No Longer [facility] porcine 2500 mL, Route: Active 2017 Medical UNT/ML SUB-Q, Drug Center Injectable form: INJ, Solution Q12H, Dosing Weight 64.091, kg, Start date: 04/26/18 9:00:00 CDT, Duration: 30 day, Stop date: 05/25/18 21:00:00 CDTNotes: porcine heparin duloxetine 30 mg, 1 cap, No Longer [facility] Route: PO, Active 2017 Medical Drug form: [place] DRC, Daily, Dosing Weight 64.091, kg, Start date: 04/26/18 9:00:00 CDT, Duration: 30 day, Stop date: 05/25/18 9:00:00 CDTNotes: (Same as: Cymbalta) (Do Not Crush) Hydralazine 20 mg, 1 mL, No Longer [facility] Route: IVP, Active 2017 Medical Drug form: [place] INJ, Q4H, Dosing Weight 64.091, kg, PRN Hypertension, Start date: 04/25/18 23:08:00 CDT, Duration: 30 day, Stop date: 05/25/18 23:07:00 CDT, SBP>160Notes: (Same as: Apresoline) Push over 5 minutes insulin glargine 8 unit, 0.08 No Longer [facility] mL, Route: Active 2017 Medical SUB-Q, Drug Center form: SOLN, Bedtime, Start date: 04/25/18 22:30:00 CDT, Duration: 30 day, Stop date: 05/25/18 21:00:00 CDTNotes: (Same as: Lantus) Do not hold insulin without contacting prescriber WASTE: F/P - Black; E - [employer] "single patient use only" valacyclovir 500 mg, 1 No Longer [facility] tab, Route: Active 2018 Medical PO, Drug Center form: TAB, Q24H, Dosing Weight 64.091, kg, Start date: 04/25/18 21:00:00 CDT, Duration: 30 day, Stop date: 05/24/18 21:00:00 CDTNotes: (Same As: Valtrex) 1.5 ML Insulin 10 unit, Inactive [facility] Glargine 300 Route: SUB-Q, 2018 Medical UNT/ML Prefilled Drug form: [place] Syringe [Touwaldemar] SOLN, Bedtime, Dosing Weight 64.091, kg, Start date: 04/25/18 21:00:00 CDT, Duration: 30 day, Stop date: 05/24/18 21:00:00 CDT bumetanide 10 mg 60 mL, Rate: No Longer [facility] + Infuse as Active 2018 [facility] directed, Center Dosing Weight 64.091, kg, Route: IV, Total Volume: 100 mL, Start Date: 04/25/18 20:32:00 CDT, Duration: 30 day, Stop date: 05/25/18 20:31:00 CDT, Replace Every: 24 hrNotes: (Same as: Bumex) Bumex 1 mg, 4 mL, Inactive [place] Route: IVP, 2018 Medical Drug form: [place] INJ, ONCE, Dosing Weight 64.091, kg, Start [...] Calcium 3 gm, 30 mL, No Longer [place] Gluconate Route: IVPB, Active 2018 Medical PRN, [...] CDTNotes: (Same as: Mag-Ox 400) Magnesium oxide [id number] elemental magnesium Dose=____mg magnesium oxide (___mg elemental magnesium) potassium 30 mmol, 10 No Longer [place] phosphate mL, Route: Active 2018 Medical IVPB, PRN, Center Dosing Weight 64.091, kg, PRN Abnormal Lab Result, For NON-ICU Patients Only., Start date: 04/25/18 20:26:00 CDT, Duration: 30 day, Stop date: 05/25/18 20:25:00 CDTNotes: (Same as: K Phosphate.) 1 mMol phoshate has 1.47 mEq potassium Infuse over 4 hours Potassium 10 mEq, 50 No Longer [place] Chloride mL, Route: Active 2018 Medical IVPB, Drug Center form: INJ, PRN, Dosing Weight 64.091, kg, PRN Abnormal Lab Result, For NON-ICU Patients Only, Start date: 04/25/18 20:26:00 CDT, Duration: 30 day, Stop date: 05/25/18 20:25:00 CDTNotes: (Same as: KCL) Infuse over 2 hours. potassium 2 pkt, Route: No Longer [place] phosphate-sodium PO, Drug Active 2017 Medical phosphate [...] Insulin Lispro 1 unit, 0.01 No Longer [place] mL, Route: Active 2017 [facility] SUB-, Drug Center form: SOLN, TID-Before Meals, [...] from _Date bumetanide 1 mg See Active [place] oral tablet Instructions, 2018 Medical 2 tab PO qAM Center and 1 tab PO qPM, # 90 tab, 3 Refill(s), Pharmacy: [facility]/pharmacy #[id number] valsartan 40 mg 40 mg=1 tab, Active [place] oral tablet PO, BID, # 60 2018 Medical tab, 3 Center Refill(s), Pharmacy: [facility]/pharmacy #[id number] carvedilol 12.5 12.5 mg=1 No Longer [place] mg oral tablet tab, PO, BID, Active 2017 Medical 0 Refill(s) Center Neulasta 6 mg, 0.6 mL, Inactive [facility] Route: SUB-Q, 2017 Medical Drug form: [place] INJ, On Adm, Start date: 03/20/18 8:00:00 CDT, Duration: 1 doses or times, Stop date: 03/20/18 23:00:00 CDTNotes: (Same as: Neulasta) Restricted to Outpatient Benadryl 50 mg, 1 mL, Inactive [facility] Route: IVP, 2017 Medical Drug form: [place] INJ ONCALL, Start date: 03/19/18 7:00:00 CDT, Duration: 1 doses or times, Stop date: 03/19/18 21:00:00 CDTNotes: (Same as: Benadryl) Tylenol 650 mg, 2 Inactive [facility] tab, Route: 2018 Medical PO, Drug Center form: TAB JOELLEALL, Start date: 03/19/18 7:00:00 CDT, Duration: 1 doses or times, Stop date: 03/19/18 21:00:00 CDTNotes: Do not exceed 4 gm/day. (Same as: Tylenol) dexamethasone 8 mg, 2 mL, Inactive [facility] Route: IV, 2017 Medical Drug form: [place] INJ ONCALL, Start date: 03/19/18 7:00:00 CDT, Duration: 1 doses or times, Stop date: 03/19/18 21:00:00 CDT meperidine 25 mg, 1 mL, No Longer [facility] Route: IVP, Active 2017 Medical Drug form: [place] INJ, Q2H, PRN Chills/Rigors , Start date: 03/19/18 7:00:00 CDT, Duration: 1 day, Stop date: 03/20/18 6:59:00 CDTNotes: (Same as: Demerol) "Use Precaution in Elderly, Seizure disorders, and Renal impairment" riTUXimab + 600 mg, 60 Inactive [place] Sodium Chloride mL, Route: 2018 Medical 0.9% [...] mg ondansetron 8 mg, 50 mL, Inactive [facility] Route: IVPB, 2017 Medical Drug form: KELLI Thompson, Start date: 03/19/18 7:00:00 CDT, Duration: 1 doses or times, Stop date: 03/19/18 21:00:00 CDTNotes: (Same as: Zofran) Use with 50 mL NS bag bendamustine 80 Route: IV, Inactive [facility] mg + Overfill Drug form: 2018 Medical Diluent KELLI ESPINOZA, [place] Estimated 5 mL + Start date: Sodium Chloride 03/19/18 0.9% IV 50 mL 7:00:00 CDT, Duration: 1 doses or times, Stop date: 03/19/18 21:00:00 CDTNotes: (Same as: [place]) WASTE: F/P - Black; E - Yellow CHEMOTHERAPY; Infuse entire contents for full dose valACYclovir 500 500 mg=1 tab, Active [place] mg oral tablet PO, Q24H, # 2018 Medical 90 tab, 1 Center Refill(s), Pharmacy: [facility]/pharmacy #[id number] Acetaminophen 325 mg, PO, Active [facility] QID, 0 2018 Medical Refill(s) Center NIFEdipine 30 mg 30 mg=1 tab, Active [facility] oral tablet, PO, Daily, # 2018 Medical extended release 30 tab, 0 Center Refill(s) doxycycline 100 mg=1 cap, Active [facility] hyclate 100 MG PO, Q12H, # 2018 Medical Oral Capsule 20 cap, 0 Center Refill(s), Pharmacy: [facility]/pharmacy #[id number] Neulasta 6 mg, 0.6 mL, Inactive [facility] Route: SUB-Q, 2018 Medical Drug form: KELLI Cardenas Start date: 02/11/18 15:35:00 CDT, Duration: 1 doses or times, Stop date: 02/12/18 0:00:00 CDTNotes: (Same as: [place]) Restricted to Outpatient 1.5 ML Insulin 10 unit, Active [facility] Glargine 300 SUB-Q, 2018 Medical UNT/ML Prefilled Bedtime, # 5 Center Syringe [Toujeo] mL, 0 Refill(s) carvedilol 6.25 6.25 mg=1 Active [facility] mg oral tablet tab, PO, BID, 2018 Medical 0 Refill(s) Center Aspirin 81 MG 81 mg=1 tab, Active [facility] Chewable Tablet PO, Daily, 0 2018 Medical Refill(s) Center cyanocobalamin 250 Active [facility] 500 mcg microgram=0.5 2018 Medical sublingual tab, PO, Center tablet Daily, # 45 tab, 0 Refill(s) valACYclovir 500 500 mg=1 tab, Active [facility] mg oral tablet PO, Q24H, 0 2018 Medical Refill(s) Center potassium 40 mEq=2 tab, Active [facility] chloride 20 mEq PO, Daily, 0 2018 Medical oral tablet, Refill(s) [place] extended release pantoprazole 40 40 mg=1 tab, Active [facility] mg oral enteric PO, Before 2018 Medical coated tablet Breakfast, 0 Center Refill(s) levofloxacin 250 250 mg=1 tab, Active [facility] mg oral tablet PO, [id number], 2018 Medical 0 Refill(s) Center Furosemide 40 MG 40 mg=1 tab, Active [place] Oral Tablet PO, BID, 0 2018 Medical Refill(s) Center fluconazole 100 100 mg=1 tab, Active [facility] mg oral tablet PO, [id number], 2018 Medical 0 Refill(s) Center DULoxetine 30 mg 30 mg=1 cap, Active [facility] oral delayed PO, Daily, 0 2018 Medical release capsule Refill(s) Center clopidogrel 75 75 mg=1 tab, Active [facility] mg oral tablet PO, Daily, 0 2018 Medical Refill(s) Center Clonidine 0.1 mg=1 tab, Active [place] Hydrochloride PO, BID, 0 2017 Medical 0.1 MG Oral Refill(s) Center Tablet magnesium oxide 800 mg=2 tab, Active [place] 400 mg oral PO, Daily, X 2018 Medical tablet 30 day, # 60 Center tab, 0 Refill(s) Granix 300 Inactive [place] microgram, 2018 Medical 0.5 mL, Center Route: SUB-Q, Drug form: SOLN, ONCE, Dosing Weight 63.273, kg, Priority: Routine, Start date: 02/06/18 8:00:00 CDT, Stop date: 02/06/18 8:00:00 CDTNotes: (Same as: Granix) Do not administer earlier than 24 hours after or in the 24 hours prior to cytotoxic chemotherapy. insulin, 10 unit, 0.1 Inactive [place] isophane mL, Route: 2017 Medical SUB-Q, Drug [...] _Date Insulin regular 5 unit, 0.05 Inactive [place] mL, Route: 2018 Medical IV, Drug Center [...] from _Date insulin, 15 unit, 0.15 Inactive [place] isophane mL, Route: 2018 Medical SUB-Q, Drug [...] _Date dexamethasone 8 mg, 2 mL, Inactive [place] Route: IV, 2017 Medical Drug form: [place] INJ, ONCE, Start date: 02/04/18 22:27:00 CDT, Stop date: 02/04/18 22:27:00 CDTNotes: Concentration : 4mg/ml dexamethasone 8 mg, 0.8 mL, Inactive [place] Route: IV, 2017 Medical Drug form: [place] INJ, ONCE, Start date: 02/04/18 22:21:00 CDT, Stop date: 02/04/18 22:21:00 CDTNotes: MEDICATION WASTE Product Size: 10 mg Product Wasted: __2_ mg dexamethasone 8 mg, 0.8 mL, Inactive [place] Route: IV, 2017 Medical Drug form: [place] INJ, ONCALL, Start date: 02/04/18 21:00:00 CDT, Duration: 1 doses or times, Stop date: 02/05/18 20:59:00 CDTNotes: MEDICATION WASTE Product Size: 10 mg Product Wasted: __2_ mg EPINEPHrine 1 0.1 mg, 1 mL, No Longer [place] mg/10ml Route: IV, Active 2018 Medical (1:10,000) Drug form: [place] injectable SOLN, ONCALL, solution PRN Allergic reaction, Start date: 02/04/18 21:00:00 CDT, Duration: 1 day, Stop date: 02/05/18 20:59:00 CDTNotes: Luer lock syringe Zofran 8 mg, 4 mL, Inactive [place] Route: IV, 2017 Medical Drug form: [place] INJ ONCALL, Start date: 02/04/18 21:00:00 CDT, Duration: 1 doses or times, Stop date: 02/05/18 20:59:00 CDTNotes: (Same as: Zofran) MEDICATION WASTE Product Size: 4 mg Product Wasted: ___0 mg Solu-CORTEF 100 mg, 2 mL, No Longer [place] Route: IV, Active 2017 Medical Drug form: [place] PDR/INJ ONCALL, PRN Allergic reaction, Start date: 02/04/18 21:00:00 CDT, Duration: 1 day, Stop date: 02/05/18 20:59:00 CDTNotes: (Same as: Solu-CORTEF) bendamustine 110 Route: IV, No Longer [place] mg + Overfill Drug form: Active 2017 Medical Diluent KELLI ESPINOZA, [place] Estimated 5 mL + Start date: Sodium Chloride 02/04/18 0.9% IV 50 mL 21:00:00 CDT, Duration: 1 doses or times, Stop date: 02/05/18 20:59:00 CDTNotes: (Same as: [place]) WASTE: F/P - Black; E - Yellow CHEMOTHERAPY; Infuse entire contents for full dose Benadryl 50 mg, 1 mL, No Longer [place] Route: IV, Active 2017 Medical Drug form: [place] INJ, ONCALL, PRN Allergic reaction, Start date: 02/04/18 18:02:00 CDT, Duration: 1 day, Stop date: 02/05/18 18:01:00 CDTNotes: (Same as: Benadryl) Elitek + Sodium 6 mg, Route: Inactive [facility] Chloride 0.9% IV [id number], 2018 Medical 50 mL Start date: [place] 02/04/18 18:00:00 CDT, Duration: 1 doses or [...] 0.15 No Longer [place] mL, Route: Active 2018 Medical SUB-Q, Drug Center form: SOLN, TID, Start date: 02/03/18 13:00:00 CDT, Stop date: 03/05/18 9:00:00 CDTNotes: (Same as: Humalog ) Roll in palms of hands gently; Do not shake `vigorously. "Single Patient Use Only " WASTE: F/P - Black; E - Municipal Trash Bin Stable for 28 days at room temperature. Expires in days from _Date Insulin Glargine 10 unit, No Longer [place] 100 UNT/ML Route: SUB-Q, Active 2018 Medical Injectable Daily, Dosing Center Solution Weight 63.273, kg, Start date: 02/03/18 9:00:00 CDT, Duration: 30 day, Stop date: 03/04/18 9:00:00 CDT Insulin Glargine 10 unit, 0.1 No Longer [place] 100 UNT/ML mL, Route: [...] CDTNotes: (Same as: Mag-Ox 400) Magnesium oxide [id number] elemental magnesium Dose=____mg magnesium oxide (___mg elemental magnesium) Ondansetron 4 mg, 2 mL, No Longer [place] Route: IVP, Active 2017 Medical Drug form: Center INJ, Q4H, Dosing Weight 63.273, kg, PRN Nausea, Start date: 02/02/18 16:15:00 CDT, Duration: 30 day, Stop date: 03/04/18 16:14:00 CDTNotes: (Same as: Duane) MEDICATION WASTE Product Size: 4 mg Product Wasted: ___ mg Magnesium Oxide 800 mg, Inactive [place] Route: PO, 2017 Medical Drug form: [place] TAB, Daily, Dosing Weight 63.273, kg, Start date: 02/02/18 15:26:00 CDT, Duration: 30 day, Stop date: 03/04/18 9:00:00 CDT Versed 0.5 mg, Inactive [facility] Route: IV, 2017 Medical ONCE, Dosing Center Weight 63.273, kg, Start date: 02/02/18 14:49:00 CDT, Stop date: 02/02/18 14:49:00 CDT Fentanyl 25 microgram, Inactive [facility] Route: IV, 2017 Medical ONCE, Dosing Center Weight 63.273, kg, Start date: 02/02/18 14:49:00 CDT, Stop date: 02/02/18 14:49:00 CDT Versed 0.5 mg, Inactive [facility] Route: IV, 2017 Medical ONCE, Dosing Center Weight 63.273, kg, Start date: 02/02/18 14:44:00 CDT, Stop date: 02/02/18 14:44:00 CDT Fentanyl 25 microgram, Inactive [facility] Route: IV, 2017 Medical ONCE, Dosing Center Weight 63.273, kg, Start date: 02/02/18 14:44:00 CDT, Stop date: 02/02/18 14:44:00 CDT Furosemide 40 MG 40 mg, 1 tab, No Longer [place] Oral Tablet Route: PO, Active 2017 Medical Drug form: Center TAB, BID, Dosing Weight 63.273, kg, Start date: 02/01/18 17:00:00 CDT, Duration: 30 day, Stop date: 03/03/18 9:00:00 CDTNotes: (Same as: Lasix) May cause GI upset. Give with food or milk. Vitamin B12 1,000 Inactive [facility] microgram, 1 2018 Medical mL, Route: [place] IM, Drug form: INJ, ONCE, Dosing Weight 63.273, kg, Start date: 02/01/18 12:18:00 CDT, Stop date: 02/01/18 12:18:00 CDTNotes: (Same As: Vitamin B12) Rasburicase 6 mg, Route: Inactive [facility] IV, ONCE, 2018 Medical Dosing Weight [...] Active 2017 Medical oral tablet, PO, Drug [place] extended release form: ERTAB, Daily, Dosing Weight [...] ;s with feeding tube less than 14 [place] (Dobhoff, J-tube etc) and pediatric and patients. With food and full glass of water Vitamin B 12 250 No Longer [place] microgram, 1 Active 2017 Medical tab, Route: [place] PO, Drug form: TAB, Daily, Dosing Weight 63.273, kg, Start date: 01/30/18 9:00:00 CDT, Duration: 30 day, Stop date: 02/28/18 9:00:00 CDTNotes: (Same As: Vitamin B12) Lasix 40 mg, 4 mL, No Longer [facility] Route: IVP, Active 2017 Medical Drug form: [place] INJ, BID, Dosing Weight 63.273, kg, Start date: 01/29/18 17:00:00 CDT, Stop date: 02/28/18 9:00:00 CDTNotes: (Same as: Lasix) MEDICATION WASTE Product Size: 40 mg Product Wasted: ___ mg Humulin N 8 unit, 0.08 Inactive [place] mL, Route: 2017 Medical SUB-Q, Drug Center form: INJ, ONCE, Start date: 01/29/18 15:00:00 CDT, Stop date: 01/29/18 15:00:00 CDTNotes: Roll in palms of hands gently; Do not shake vigorously. (Same as: Humulin N) Do not hold insulin without contacting prescriber WASTE: F/P - Black; E - [employer] Trash Bin Stable for 28 days at room temperature Expires in days from _Date insulin, 20 unit, 0.2 No Longer [facility] isophane mL, Route: Active 2017 Medical [...] _Date dexamethasone 40 mg, 10 No Longer [facility] tab, Route: Active 2017 [facility] PO, Drug Center form: TAB, Q24H, Start date: 01/29/18 14:00:00 CDT, Duration: 2 doses or times, Stop date: 01/30/18 14:00:00 CDTNotes: Give with food. (Same As: Decadron) insulin regular 10 unit, 0.1 Inactive [facility] 100 units/mL mL, Route: 2017 Medical human IV, Drug Center recombinant form: SOLN, [...] _Date insulin regular 10 unit, 0.1 Inactive [facility] 100 units/mL mL, Route: 2017 Medical human IV, Drug Center recombinant form: SOLN, [...] _Date Ferrlecit 125 mg, 10 No Longer [facility] mL, Route: Active 2017 Medical IVPB, Daily, Center Dosing Weight 63.273, kg, Start date: 01/29/18 10:46:00 CDT, Duration: 10 doses or times, Stop date: 02/07/18 9:00:00 CDTNotes: (sodium ferric gluconate complex (elemental iron) 62.5 mg/5 ml INJ) "Limited stability. Use immediately after admixture" (Same as: Ferrlecit) MEDICATION WASTE Product Size: 62.5 mg Product Wasted: ___ mg Vitamin B 12 1,000 Inactive [facility] microgram, 1 2018 Medical mL, Route: [place] IM, Drug form: INJ, ONCE, Dosing Weight 63.273, kg, Start date: 01/29/18 9:01:00 CDT, Stop date: 01/29/18 9:01:00 CDTNotes: (Same As: Vitamin B12) Lasix 40 mg, 4 mL, Inactive [facility] Route: IVP, 2018 Medical Drug form: Center INJ, BID, Dosing Weight 63.273, kg, Start date: 01/29/18 9:00:00 CDT, Duration: 30 day, Stop date: 02/27/18 17:00:00 CDTNotes: (Same as: Lasix) MEDICATION WASTE Product Size: 40 mg Product Wasted: ___ mg insulin, 7 unit, 0.07 Inactive [facility] isophane mL, Route: 2018 Medical SUB-Q, [...] Paramjit packet 1 pkt, Route: No Longer [facility] PO, Drug Active 2017 Medical Form: PWDR, Center Dosing Weight 63.273, kg, BID-Before Meals, Start date: 01/28/18 16:30:00 CDT, Duration: 14 day, Stop date: 02/11/18 7:30:00 CDTNotes: (Same as: Paramjit Martin) Insulin Lispro 6 unit, 0.06 No Longer [facility] mL, Route: Active 2018 Medical SUB-Q, Drug [...] Dextrose 50% 12.5 gm, 25 No Longer [facility] Syringe mL, Route: Active 2018 Medical IVP, Drug Center Form: INJ, Dosing Weight 63.273, kg, PRN, PRN Blood Glucose Results, Start date: 01/28/18 15:41:00 CDT, Duration: 30 day, Stop date: 02/27/18 15:40:00 CDT Glucagon 1 mg, Route: No Longer [facility] IM, Drug Active 2017 Medical form: Center PDR/INJ, PRN, Dosing Weight 63.273, kg, PRN Blood Glucose Results, Start date: 01/28/18 15:41:00 CDT, Duration: 30 day, Stop date: 02/27/18 15:40:00 CDT insulin, 10 unit, 0.1 No Longer [facility] isophane mL, Route: Active 2018 Medical SUB-Q, Drug [...] from _Date Rasburicase 6 mg, Route: Inactive [facility] IV, ONCE, 2018 Medical Dosing Weight [...] Insulin Lispro 8 unit, 0.08 No Longer [facility] mL, Route: Active 2017 [facility], Drug Center form: SOLN, TID-Before Meals, Dosing [...] _Date Insulin regular 10 unit, 0.1 Inactive [facility] mL, Route: 2017 [facility] IV, Drug Center form: SOLN, ONCE, [...] 3 ML Insulin 5 unit, 0.05 Inactive [facility] Glargine 100 mL, Route: 2018 Medical UNT/ML Prefilled SUB-Q, Drug Center Syringe [Lantus] form: SOLN, ONCE, Dosing Weight 63.273, kg, Start date: 01/28/18 11:13:00 CDT, Stop date: 01/28/18 11:13:00 CDTNotes: Same as: Lantus) Do not hold insulin without contacting prescriber WASTE: F/P - Black; E - Municipal Trash Bin Insulin Lispro 10 unit, Inactive [place] Route: SUB-Q, 2017 Medical ONCE, Dosing Center Weight 63.273, kg, Start date: 01/28/18 11:11:00 CDT, Stop date: 01/28/18 11:11:00 CDT NIFEdipine 30 mg 30 mg, 1 tab, No Longer [place] oral tablet, Route: PO, Active 2017 Medical extended release Drug form: Center ERTAB, Daily, Dosing Weight 63.273, kg, Start date: 01/28/18 9:00:00 CDT, Duration: 30 day, Stop date: 02/26/18 9:00:00 CDT potassium 20 mEq, 1 No Longer [place] chloride 20 mEq tab, Route: Active 2017 [...] Patients with feeding tube less than 14 [place] (Dobhoff, J-tube etc) and pediatric and patients. With food and full glass of water Lovenox 30 mg, 0.3 No Longer [place] mL, Route: Active 2017 Medical SUB-Q, Drug Center form: INJ, [id number], Dosing Weight 63.273, kg, For CrCl Notes: (Same as: Lovenox) Magnesium Oxide 800 mg, 2 No Longer [place] tab, Route: Active 2017 Medical PO, Drug Center form: TAB, Daily, Dosing Weight 63.273, kg, Start date: 01/28/18 9:00:00 CDT, Duration: 30 day, Stop date: 02/26/18 9:00:00 CDTNotes: (Same as: Mag-Ox 400) Magnesium oxide [id number] elemental magnesium Dose=____mg magnesium oxide (___mg elemental magnesium) Docusate Sodium 100 mg, 1 No Longer [place] 100 MG Oral cap, Route: Active 2018 [...] times, Stop date: 01/28/18 22:59:00 CDT, 1.69, [id number]: (Do not administer IV push or bolus). [...] mg dexamethasone 40 mg, 10 No Longer [facility] tab, Route: Active 2018 Medical PO, Drug Center form: TAB, Daily, Start date: 01/27/18 23:00:00 CDT, Duration: 4 day, Stop date: 01/30/18 23:00:00 CDTNotes: Give with food. (Same As: Decadron) Insulin Lispro 10 unit, 0.1 No Longer [place] mL, Route: Active 2017 Medical SUB-Q, Drug [...] _Date Glucagon 1 mg, Route: No Longer [place] IM, Drug Active 2017 Medical form: Center PDR/INJ, PRN, Dosing Weight 63.273, kg, PRN Blood Glucose Results, Start date: 01/27/18 22:38:00 CDT, Duration: 30 day, Stop date: 02/26/18 22:37:00 CDT Dextrose 50% 12.5 gm, 25 No Longer [place] Syringe mL, Route: Active 2017 Medical IVP, Drug Center Form: INJ, Dosing Weight 63.273, kg, PRN, PRN Blood Glucose Results, Start date: 01/27/18 22:38:00 CDT, Duration: 30 day, Stop date: 02/26/18 22:37:00 CDT meperidine 25 mg, 1 mL, Inactive [facility] Route: IVP, 2018 Medical Drug form: Center INJ, ONCE, Start date: 01/27/18 22:30:00 CDT, Stop date: 01/27/18 22:30:00 CDTNotes: (Same as: Demerol) "Use Precaution in Elderly, Seizure disorders, and Renal impairment" Tylenol 650 mg, 2 Inactive [place] tab, Route: 2018 Medical PO, Drug Center form: TAB, ONCE, Start date: 01/27/18 22:30:00 CDT, Stop date: 01/27/18 22:30:00 CDTNotes: Do not exceed 4 gm/day. (Same as: Tylenol) Benadryl 50 mg, 1 mL, Inactive [place] Route: IVP, 2017 Medical Drug form: [place] INJ, ONCE, Start date: 01/27/18 22:30:00 CDT, Stop date: 01/27/18 22:30:00 CDTNotes: (Same as: Benadryl) Elitek + Sodium 6 mg, Route: Inactive [place] Chloride 0.9% IV IVPB, ONCE, 2018 Medical 50 mL Start date: [place] 01/27/18 22:30:00 CDT, Stop date: 01/27/18 22:30:00 CDTNotes: Restricted Medication: All Doses of Rasburicase should be interchanged to Rasburicase 6 mg x1 dose. A second dose may be given for patients unresponsive to 1 dose. (Same as:Elitek) MEDICATION WASTE Product Size: 1.5 mg Product Wasted: ___ mg meperidine 25 mg, 1 mL, No Longer [place] Route: IVP, Active 2017 Medical Drug form: [place] INJ, Q2H, PRN Allergic reaction, Start date: 01/27/18 21:35:00 CDT, Duration: 1 day, Stop date: 01/28/18 21:34:00 CDTNotes: (Same as: Demerol) "Use Precaution in Elderly, Seizure disorders, and Renal impairment" EPINEPHrine 1 0.1 mg, 1 mL, No Longer [place] mg/10ml Route: IVP, Active 2018 Medical (1:10,000) Drug form: [place] injectable SOLN, ONCE, solution PRN Allergic reaction, Start date: 01/27/18 21:34:00 CDTNotes: Luer lock syringe Benadryl 50 mg, 1 mL, No Longer [facility] Route: IVP, Active 2017 Medical Drug form: [place] INJ, ONCE, PRN Allergic reaction, Start date: 01/27/18 21:29:00 CDTNotes: (Same as: Benadryl) Solu-CORTEF 100 mg, 2 mL, No Longer [place] Route: IVP, Active 2017 Medical Drug form: [place] PDR/INJ, ONCE, PRN Allergic reaction, Start date: 01/27/18 21:27:00 CDTNotes: (Same as: Solu-CORTEF) Zofran 8 mg, 4 mL, No Longer [facility] Route: IVP, Active 2017 Medical Drug form: [place] INJ, ONCE, PRN Nausea & Vomiting, Start date: 01/27/18 21:19:00 CDTNotes: (Same as: Zofran) MEDICATION WASTE Product Size: 4 mg Product Wasted: ___ mg Lasix 40 mg, 4 mL, No Longer [place] Route: IVP, Active 2017 Medical Drug form: [place] INJ, BID, Dosing Weight 63.273, kg, Start date: 01/27/18 17:00:00 CDT, Duration: 30 day, Stop date: 02/26/18 9:00:00 CDTNotes: (Same as: Lasix) MEDICATION WASTE Product Size: 40 mg Product Wasted: ___ mg Fluconazole 100 mg, 1 No Longer [facility] tab, Route: Active 2018 Medical PO, Drug Center form: TAB, [id number], Dosing Weight 63.273, kg, Start date: 01/27/18 16:00:00 CDT, Duration: 30 day, Stop date: 02/25/18 16:00:00 CDT, ABX Indication: Immunocomprom ised Host ProphylaxisNo shabbir: (Same as: Diflucan) Saline Flush 10 mL, Route: No Longer [place] 0.9% IVP, Drug Active 2017 Medical Form: INJ, Center Dosing Weight 63.273, kg, Q8H, Start date: 01/27/18 16:00:00 CDT, Duration: 30 day, Stop date: 02/26/18 8:00:00 CDTNotes: (Same as: BD Posiflush) Levofloxacin 250 mg, 1 No Longer [facility] tab, Route: Active 2018 Medical PO, Drug Center form: TAB, [id number], Dosing Weight 63.273, kg, Start date: 01/27/18 15:18:00 CDT, Duration: 30 day, Stop date: 02/24/18 15:18:00 CDT, ABX Indication: Immunocomprom ised Host ProphylaxisNo shabbir: Do not give w/antacids, dairy pdt & minerals Take 1 hr before or 2 hr after dairy pdt (Same as:Levaquin) Lidocaine 50 mg, 5 mL, No Longer [facility] Hydrochloride 10 Route: Active 2018 Medical MG/ML Injectable INTRADERM, [place] Solution Drug Form: INJ, Dosing Weight 63.273, kg, ONCALL, Start date: 01/27/18 13:00:00 CDT, Duration: 30 day, Stop date: 02/26/18 12:59:00 CDTNotes: (Same as: Xylocaine) Saline Flush 10 mL, Route: No Longer [place] 0.9% IVP, Drug Active 2018 Medical Form: INJ, Center Dosing Weight 63.273, kg, PRN, PRN Line Flush, Start date: 01/27/18 12:49:00 CDT, Duration: 30 day, Stop date: 02/26/18 12:48:00 CDTNotes: (Same as: BD Posiflush) Fluconazole 100 mg, Inactive [facility] Route: PO, 2018 Medical Drug form: Center TAB, [id number], Dosing Weight 63.273, kg, Start date: 01/27/18 12:00:00 CDT, Duration: 30 day, Stop date: 02/25/18 12:00:00 CDT, ABX Indication: Open Wound Prophylaxis valacyclovir 500 mg, 1 No Longer [place] tab, Route: Active 2018 Medical PO, Drug Center form: TAB, Q24H, Dosing Weight 63.273, kg, Start date: 01/27/18 12:00:00 CDT, Duration: 30 day, Stop date: 02/25/18 12:00:00 CDTNotes: (Same As: Valtrex) Lasix 40 mg, 4 mL, Inactive [place] Route: IVP, 2018 Medical Drug form: [place] INJ, Daily, Dosing Weight 63.273, kg, Start date: 01/27/18 11:27:00 CDT, Duration: 30 day, Stop date: 02/26/18 9:00:00 CDTNotes: (Same as: Lasix) MEDICATION WASTE Product Size: 40 mg Product Wasted: ___ mg duloxetine 30 mg, 1 cap, No Longer [place] Route: PO, Active 2018 Medical Drug form: [place] DRC, Daily, Dosing Weight 63.636, kg, Start date: 01/27/18 9:00:00 CDT, Duration: 30 day, Stop date: 02/25/18 9:00:00 CDTNotes: (Same as: Cymbalta) (Do Not Crush) clopidogrel 75 mg, 1 tab, No Longer [facility] Route: PO, Active 2017 Medical Drug form: [place] TAB, Daily, Dosing Weight 63.636, kg, Start date: 01/27/18 9:00:00 CDT, Duration: 30 day, Stop date: 02/25/18 9:00:00 CDTNotes: (Same As: Plavix) Clonidine 0.1 mg, 1 No Longer [place] Hydrochloride tab, Route: Active 2018 Medical 0.1 MG Oral PO, Drug Center Tablet form: TAB, BID, Dosing Weight 63.636, kg, Start date: 01/27/18 9:00:00 CDT, Duration: 30 day, Stop date: 02/25/18 17:00:00 CDTNotes: (Same As: Catapres) Lasix 40 mg, 1 tab, Inactive [place] Route: PO, 2018 Medical Drug form: [place] TAB, Daily, Dosing Weight 63.636, kg, Start [...] Route: PO, Active 2018 Medical Drug form: [place] CHEWTAB, Daily, Dosing Weight 63.636, kg, Start date: 01/27/18 9:00:00 CDT, Duration: 30 day, Stop date: 02/25/18 9:00:00 CDTNotes: Take with food. Lovenox 30 mg, Route: No Longer [facility] SUB-Q, Drug Active 2018 Medical form: INJ, [place] [id number], Dosing Weight 63.636, kg, For CrCl heparin 5,000 unit, 1 No Longer [place] mL, Route: Active 2018 Medical SUB-Q, Drug Center form: INJ, Q8H, Dosing Weight 63.636, kg, Start date: 01/27/18 8:00:00 CDT, Duration: 30 day, Stop date: 02/26/18 0:00:00 CDTNotes: porcine heparin pantoprazole 40 mg, 1 tab, No Longer [facility] Route: PO, Active 2018 Medical Drug form: [place] ECTAB, Before Breakfast, Dosing Weight 63.636, kg, Start date: 01/27/18 7:30:00 CDT, Duration: 30 day, Stop date: 02/25/18 7:30:00 CDTNotes: Tablet should not be chewed or crushed. (Same as: Protonix) tramadol 50 mg, 1 tab, Inactive [place] hydrochloride 50 Route: PO, 2018 Medical MG Oral Tablet Drug form: [place] TAB, ONCE, Dosing Weight 63.835, kg, Start date: 01/26/18 23:12:00 CDT, Stop date: 01/26/18 23:12:00 CDTNotes: Not to exceed 400mg/day. (Same As: Ultram) Saline Flush 10 ml, Route: No Longer [facility] 0.9% IVP, Drug Active 2018 Medical Form: INJ, Center Dosing Weight 63.636, kg, Q12H, Start date: [...] 2 No Longer [place] tab, Route: Active 2017 Medical PO, Drug Center form: TAB, PRN, Dosing Weight 63.636, kg, PRN Abnormal Lab Result, For NON-ICU Patients Only., Start date: 01/26/18 20:30:00 CDT, Duration: 30 day, Stop date: 02/25/18 20:29:00 CDTNotes: (Same as: Mag-Ox 400) Magnesium oxide [id number] elemental magnesium Dose=____mg magnesium oxide (___mg elemental [...] Patients with feeding tube less than 14 [place] (Dobhoff, J-tube etc) and pediatric and patients. With food and full glass of water Insulin Lispro 3 unit, 0.03 No Longer [facility] mL, Route: Active 2018 Medical SUB-Q, Drug [...] _Date Glucagon 1 mg, Route: No Longer [facility] IM, Drug Active 2017 Medical form: [place] PDR/INJ, PRN, Dosing Weight 63.636, kg, PRN Blood Glucose Results, Start date: 01/26/18 20:29:00 CDT, Duration: 30 day, Stop date: 02/25/18 20:28:00 CDT Dextrose 50% 12.5 gm, 25 No Longer [facility] Syringe mL, Route: Active 2017 [facility] IVP, Drug Center Form: INJ, Dosing Weight 63.636, kg, PRN, PRN Blood Glucose Results, Start date: 01/26/18 20:29:00 CDT, Duration: 30 day, Stop date: 02/25/18 20:28:00 CDT Furosemide 20 mg, 2 mL, Inactive [facility] Route: IVP, 2018 Medical Drug form: Center INJ, ONCE, Dosing Weight 63.636, kg, Start date: 01/26/18 20:25:00 CDT, Stop date: 01/26/18 20:25:00 CDTNotes: (Same as: Lasix) Saline Flush 10 ml, Route: No Longer [facility] 0.9% IVP, Drug Active 2017 Medical Form: INJ, Center Dosing Weight 63.636, kg, PRN, PRN Line Flush, Start date: 01/26/18 20:20:00 CDT, Duration: 30 day, Stop date: 02/25/18 20:19:00 CDTNotes: (Same as: BD Posiflush) Tylenol 650 mg, 2 No Longer [place] tab, Route: Active 2018 Medical PO, Drug Center form: TAB, Q6H, Dosing Weight 63.636, kg, PRN Pain Score 1-3, Start date: 01/26/18 19:54:00 CDT, Duration: 30 day, Stop date: 02/25/18 19:53:00 CDTNotes: Do not exceed 4 gm/day. (Same as: Tylenol) 1.5 ML Insulin 14 units, No Longer [place] Glargine 300 SUB-Q, Active 2018 Medical UNT/ML Prefilled Bedtime, 0 Center Syringe [Toujeo] Refill(s) glimepiride 4 mg 4 mg=1 tab, Active [facility] oral tablet PO, BID, 0 2018 Medical Refill(s) Center Metformin 500 mg, PO, Active [facility] BID, 0 2018 Medical Refill(s) Center Lorazepam 2 MG 2 mg=1 tab, No Longer [facility] Oral Tablet PO, ONCE, Active 2018 Medical [Ativan] take 1 tab 10 Center minutes prior to [employer] and again during if needed, # 2 tab, 0 Refill(s) Furosemide 40 MG 40 mg=1 tab, No Longer [facility] Oral Tablet PO, BID, # 60 Active 2018 Medical [Lasix] tab, 3 Center Refill(s), Pharmacy: [facility]/pharmacy #[id number] potassium 20 mEq=1 tab, No Longer [facility] chloride 20 mEq PO, Q12H, # Active 2018 Medical oral tablet, 60 tab, 3 Center extended release Refill(s), Pharmacy: [facility]/pharmacy #[id number] Furosemide 40 MG 40 mg, 1 tab, Inactive [facility] Oral Tablet Route: PO, 2018 Medical [Lasix] Drug form: Center TAB, BID, Dosing Weight 64.091, kg, Start date: 01/05/18 9:23:00 CDT, Duration: 30 day, Stop date: 02/04/18 9:00:00 CDTNotes: (Same as: Lasix) May cause GI upset. Give with food or milk. Ambien 5 mg, 1 tab, No Longer [place] Route: PO, Active 2018 Medical Drug form: Center TAB, Bedtime, Dosing Weight 64.091, kg, PRN Insomnia, Start date: 01/03/18 22:28:00 [employer], Duration: 30 day, Stop date: 02/02/18 22:27:00 CDTNotes: (Same As: Ambien) potassium 20 mEq, 1 No Longer [place] chloride 20 mEq tab, Route: Active 2018 Medical oral tablet, PO, Drug Center extended release form: ERTAB, Q12H, Dosing Weight 64.091, kg, Start date: 01/03/18 21:00:00 [employer]OR M[employer], Duration: 30 day, Stop date: 02/02/18 9:00:00 CDTNotes: (Same as: K-Dur 20) "Do Not Crush" With food and full glass of water Potassium 10 mEq, 50 No Longer [place] Chloride mL, Route: Active 2017 [facility] IVPB, Drug [place] form: INJ, PRN, Dosing Weight 64.091, kg, PRN Abnormal Lab Result, For NON-ICU Patients Only, Start date: 01/03/18 13:47:00 [employer], Duration: 30 day, Stop date: 02/02/18 14:46:00 CDTNotes: (Same as: KCL) Infuse over 2 hours. potassium 2 pkt, Route: No Longer [place] phosphate-sodium PO, Drug Active 2018 Medical phosphate 250 Form: [place] mg-280 mg-160 mg PDR/REC, oral powder for Dosing Weight reconstitution 64.091, kg, PRN, PRN Abnormal Lab Result, For NON-ICU Patients Only, Start date: 01/03/18 13:47:00 [employer], Duration: 30 day, Stop date: 02/02/18 14:46:00 CDTNotes: (Same as: Phos-NaK) Each 1.5 gm pkt has 250mg phosphorous. Mix w/2.5oz water and stir. potassium 15 mmol, 5 No Longer [place] phosphate mL, Route: Active 2018 Medical IVPB, PRN, Center Dosing Weight 64.091, kg, PRN Abnormal Lab Result, For NON-ICU Patients Only., Start date: 01/03/18 13:47:00 [employer], Duration: 30 day, Stop date: 02/02/18 14:46:00 CDTNotes: (Same as: K Phosphate.) 1 mMol phoshate has 1.47 mEq potassium Infuse over 4 hours Calcium 2 gm, 20 mL, No Longer [place] Gluconate Route: IVPB, Active 2018 Medical PRN, Dosing Center Weight 64.091, kg, PRN Abnormal Lab Result, For NON-ICU Patients Only., Start date: 01/03/18 13:47:00 [employer], Duration: 30 day, Stop date: 02/02/18 14:46:00 CDTNotes: WASTE: F/P - Sink; E - Municipal Trash Bin Magnesium Oxide 800 mg, 2 No Longer [place] tab, Route: Active 2018 Medical PO, Drug Center form: TAB, PRN, Dosing Weight 64.091, kg, PRN Abnormal Lab Result, For NON-ICU Patients Only., Start date: 01/03/18 13:47:00 [employer]OR M[employer], Duration: 30 day, Stop date: 02/02/18 14:46:00 CDTNotes: (Same as: Mag-Ox 400) Magnesium oxide [id number] elemental magnesium Dose=____mg magnesium oxide (___mg elemental magnesium) Magnesium 1 gm, 100 mL, No Longer [place] Sulfate Route: IVPB, Active 2017 Medical Drug form: Center INJ, PRN, Dosing Weight 64.091, kg, PRN Abnormal Lab Result, For NON-ICU Patients Only., Start date: 01/03/18 13:47:00 [employer]OR M[employer], Duration: 30 day, Stop date: 02/02/18 14:46:00 CDTNotes: WASTE: F/P - Sink; E - Municipal Trash Bin sodium phosphate 15 mmol, 5 No Longer [place] mL, Route: Active 2017 Medical IVPB, PRN, Center Dosing Weight 64.091, kg, PRN Abnormal Lab Result, For NON-ICU Patients Only., Start date: 01/03/18 13:47:00 [employer], Duration: 30 day, Stop date: 02/02/18 14:46:00 CDT Miralax 17 gm, 1 pkt, No Longer [place] Route: PO, Active 2018 Medical Drug form: Center PWDR, BID, Dosing Weight 64.091, kg, Start date: 01/02/18 17:33:00 [employer], Duration: 30 day, Stop date: 02/01/18 17:00:00 CDTNotes: Dissolve in 8 oz of water or juice. (Same as: Miralax) Calcium 1,000 mg, 2 No Longer [place] Carbonate 500 MG tab, Route: Active 2018 Medical Chewable Tablet PO, Drug Center form: CHEWTAB, PRN, Dosing Weight 64.091, kg, PRN Abnormal Lab Result, FOR ICU USE ONLY, Start date: 01/01/18 22:59:00 [employer], Duration: 30 day, Stop date: 01/31/18 23:58:00 CDTNotes: (Same As: Tums) Calcium Carbonate 500 vu=928 mg elemental calcium Dose= mg calcium carbonate ( mg elemental calcium) potassium 2 pkt, Route: No Longer [place] phosphate-sodium PO, Drug Active 2017 Medical phosphate 250 Form: [place] mg-280 mg-160 mg PDR/REC, oral powder for Dosing Weight reconstitution 64.091, kg, PRN, PRN Abnormal Lab Result, FOR ICU USE ONLY, Start date: 01/01/18 22:59:00 [employer], Duration: 30 day, Stop date: 01/31/18 23:58:00 CDTNotes: (Same as: Phos-NaK) Each 1.5 gm pkt has 250mg phosphorous. Mix w/2.5oz water and stir. Calcium 1 gm, 10 mL, No Longer [place] Gluconate Route: IVPB, Active 2018 Medical PRN, Dosing Center Weight 64.091, kg, PRN Abnormal Lab Result, Start date: 01/01/18 22:59:00 [employer], Duration: 30 day, Stop date: 01/31/18 23:58:00 CDT, FOR ICU USE ONLYNotes: WASTE: F/P - Sink; E - Municipal Trash Bin Magnesium 2 gm, 50 mL, No Longer [place] Sulfate Route: IVPB, Active 2017 Medical Drug form: [place] INJ, PRN, Dosing Weight 64.091, kg, PRN Abnormal Lab Result, Start date: 01/01/18 22:59:00 [employer], Duration: 30 day, Stop date: 01/31/18 23:58:00 CDT, FOR ICU USE ONLYNotes: WASTE: F/P - Sink; E - Municipal Trash Bin Magnesium Oxide 800 mg, 2 No Longer [place] tab, Route: Active 2018 [facility] PO, Drug Center form: TAB, PRN, Dosing Weight 64.091, kg, PRN Abnormal Lab Result, FOR ICU USE ONLY, Start date: 01/01/18 22:59:00 [employer], Duration: 30 day, Stop date: 01/31/18 23:58:00 CDTNotes: (Same as: Mag-Ox 400) Magnesium oxide [id number] elemental magnesium Dose=____mg magnesium oxide (___mg elemental magnesium) sodium phosphate 15 mmol, 5 No Longer [place] mL, Route: Active 2018 Medical IVPB, PRN, Center Dosing Weight 64.091, kg, PRN Abnormal Lab Result, Start date: 01/01/18 22:59:00 [employer], Duration: 30 day, Stop date: 01/31/18 23:58:00 CDT, FOR ICU USE ONLY potassium 30 mmol, 10 No Longer [place] phosphate mL, Route: Active 2018 Medical IVPB, PRN, Center Dosing Weight 64.091, kg, PRN Abnormal Lab Result, Start date: 01/01/18 22:59:00 [employer], Duration: 30 day, Stop date: 01/31/18 23:58:00 CDT, FOR ICU USE ONLYNotes: (Same as: K Phosphate.) 1 mMol phoshate has 1.47 mEq potassium Infuse over 4 hours Potassium 20 mEq, 100 No Longer [place] Chloride mL, Route: Active 2018 [facility] IVPB, Drug Center form: INJ, PRN, Dosing Weight 64.091, kg, PRN Abnormal Lab Result, Via central line, Start date: 01/01/18 22:59:00 [employer], Duration: 30 day, Stop date: 01/31/18 23:58:00 CDT, FOR ICU USE ONLYNotes: (Same as: KCL) Infuse no faster than 10 mEq/hr if given peripherally. Insulin Glargine 11 unit, 0.11 No Longer [place] 100 UNT/ML mL, Route: Active 2018 Medical Injectable SUB-Q, Drug Center Solution form: SOLN, Bedtime, Dosing Weight 64.091, kg, Start date: 01/01/18 21:00:00 [employer], Duration: 30 day, Stop date: 01/30/18 21:00:00 CDTNotes: Same as: Lantus) Do not hold insulin without contacting prescriber WASTE: F/P - Black; E - Municipal Trash Bin heparin sodium, 5,000 unit, 1 No Longer [place] porcine 2500 mL, Route: Active 2017 [facility] UNT/ML SUB-Q, Drug [place] Injectable form: INJ, Solution Q12H, Dosing Weight 64.091, kg, Start date: 01/01/18 21:00:00 [employer], Duration: 30 day, Stop date: 01/31/18 9:00:00 CDTNotes: porcine heparin Lactulose 667 10 gm, 15 mL, Inactive [place] MG/ML Oral Route: PO, 2017 Medical Solution Drug form: [place] SYRP, ONCE, Dosing Weight 64.091, kg, Start date: 01/01/18 17:33:00 [employer], Stop date: 01/01/18 17:33:00 CSTNotes: (Same as:Chronulac) Docusate Sodium 1 tab, Route: No Longer [place] 50 MG / PO, Drug Active 2017 Medical sennosides, ALF Form: TAB, Center 8.6 MG Oral Dosing Weight Tablet 64.091, kg, BID, Start date: 01/01/18 17:31:00 [employer], Duration: 30 day, Stop date: 01/31/18 17:00:00 CDTNotes: (Same as Senokot-S) Equiv. to Indira-Colace. Dextrose 50% 25 gm, 50 mL, No Longer [place] Syringe Route: IVP, Active 2017 Medical Drug Form: [place] INJ, Dosing Weight 64.091, kg, PRN, PRN Blood Glucose Results, Start date: 01/01/18 15:43:00 [employer], Duration: 30 day, Stop date: 01/31/18 16:42:00 CDT Glucagon 1 mg, Route: No Longer [place] IM, Drug Active 2017 Medical form: [place] PDR/INJ, PRN, Dosing Weight 64.091, kg, PRN Blood Glucose Results, Start date: 01/01/18 15:43:00 [employer], Duration: 30 day, Stop date: 01/31/18 16:42:00 CDT Insulin Lispro 2 unit, 0.02 No Longer [place] mL, Route: Active 2017 Medical SUB-Q, Drug Center form: SOLN, TID-Before Meals, Dosing Weight 64.091, kg, PRN Blood Glucose Results, Start date: 01/01/18 15:43:00 [employer], Duration: 30 day, Stop date: 01/31/18 15:42:00 CDTNotes: (Same as: Humalog ) Roll in palms of hands gently; Do not shake `vigorously. "Single Patient Use Only " WASTE: F/P - Black; E - Municipal Trash Bin Stable for 28 days at room temperature. Expires in days from _Date NIFEdipine 30 mg 30 mg, 1 tab, No Longer [facility] oral tablet, Route: PO, Active 2017 Medical extended release Drug form: [place] ERTAB, Daily, Dosing Weight 64.091, kg, Start date: 01/01/18 9:00:00 [employer], Duration: 30 day, Stop date: 01/30/18 9:00:00 CDTNotes: (Same as: Adalat CC, Procardia XL) Give on empty stomach. Take 1 hour before or 2 hours after meal; "Avoid grapefruit and grapefruit juice". Do not crush duloxetine 30 mg, 1 cap, No Longer [facility] Route: PO, Active 2017 Medical Drug form: [place] DRC, Daily, Dosing Weight 64.091, kg, Start date: 01/01/18 9:00:00 [employer], Duration: 30 day, Stop date: 01/30/18 9:00:00 CDTNotes: (Same as: Cymbalta) (Do Not Crush) clopidogrel 75 mg, 1 tab, No Longer [facility] Route: PO, Active 2017 Medical Drug form: [place] TAB, Daily, Dosing Weight 64.091, kg, Start date: 01/01/18 9:00:00 [employer], Duration: 30 day, Stop date: 01/30/18 9:00:00 CDTNotes: (Same As: Plavix) carvedilol 12.5 mg, 1 No Longer [facility] tab, Route: Active 2018 Medical PO, Drug Center form: TAB, BID, Dosing Weight 64.091, kg, Start date: 01/01/18 9:00:00 [employer], Duration: 30 day, Stop date: 01/30/18 17:00:00 CDTNotes: Give with food. (Same As: Coreg) Clonidine 0.1 mg, 1 No Longer [facility] Hydrochloride tab, Route: Active 2018 Medical 0.1 MG Oral PO, Drug Center Tablet form: TAB, BID, Dosing Weight 64.091, kg, Start date: 01/01/18 9:00:00 [employer], Duration: 30 day, Stop date: 01/30/18 17:00:00 CDTNotes: (Same As: Catapres) Aspirin 81 MG 81 mg, 1 tab, No Longer [facility] Chewable Tablet Route: PO, Active 2018 Medical Drug form: [place] CHEWTAB, Daily, Dosing Weight 64.091, kg, Start date: 01/01/18 9:00:00 [employer], Duration: 30 day, Stop date: 01/30/18 9:00:00 CDTNotes: Take with food. pantoprazole 40 mg, 1 tab, No Longer [facility] Route: PO, Active 2018 Medical Drug form: [place] ECTAB, Before Breakfast, Dosing Weight 64.091, kg, Start date: 01/01/18 7:30:00 [employer], Duration: 30 day, Stop date: 01/30/18 7:30:00 CDTNotes: Tablet should not be chewed or crushed. (Same as: Protonix) valacyclovir 500 mg, 1 No Longer [facility] tab, Route: Active 2018 Medical PO, Drug Center form: TAB, Q24H, Dosing Weight 64.091, kg, Start date: 01/01/18 1:00:00 [employer], Duration: 30 day, Stop date: 01/29/18 22:30:00 CDTNotes: (Same As: Valtrex) Lasix 40 mg, 4 mL, No Longer [place] Route: IVP, Active 2017 Medical Drug form: [place] INJ, Q12H, Dosing Weight 64.091, kg, Start date: 01/01/18 0:55:00 [employer], Duration: 30 day, Stop date: 01/30/18 21:00:00 CDTNotes: (Same as: Lasix) MEDICATION WASTE Product Size: 40 mg Product Wasted: ___ mg Acetaminophen 650 mg, 2 No Longer [place] 325 MG Oral tab, Route: Active 2017 Medical Tablet PO, Drug Center form: TAB, Q6H, Dosing Weight 64.091, kg, PRN Pain 1-3/Temp > 100.4 F, Start date: 01/01/18 0:54:00 [employer], Duration: 30 day, Stop date: 01/31/18 0:53:00 CDTNotes: Do not exceed 4 gm/day. (Same as: Tylenol) Aspirin 81 mg, 1 tab, Inactive [place] Route: PO, 2017 Medical Drug form: [place] CHEWTAB, Daily, Dosing Weight 66.818, kg, Start date: 11/29/17 9:00:00 [employer], Duration: 30 day, Stop date: 12/28/17 9:00:00 CSTNotes: Take with food. Plavix 75 mg, 1 tab, Inactive [facility] Route: PO, 2017 Medical Drug form: [place] TAB, Daily, Dosing Weight 66.818, kg, Start date: 11/29/17 9:00:00 [employer], Duration: 30 day, Stop date: 12/28/17 9:00:00 CSTNotes: (Same As: Plavix) valACYclovir 500 500 mg=1 tab, No Longer [place] mg oral tablet PO, Q24H, X Active 2017 Medical 90 day, # 90 Center tab, 0 Refill(s) levofloxacin 250 250 mg=1 tab, No Longer [place] mg oral tablet PO, [id number], Active 2018 Medical X 90 day, # Center 90 tab, 0 Refill(s) valACYclovir 500 500 mg=1 tab, Inactive [place] mg oral tablet PO, Q24H, 0 2018 Medical Refill(s) Center levofloxacin 250 250 mg=1 tab, Inactive [place] mg oral tablet PO, [id number], 2018 Medical 0 Refill(s) Center Furosemide 20 MG 20 mg=1 tab, No Longer [place] Oral Tablet PO, Daily, # Active 2018 Medical [Lasix] 90 tab, 0 Center Refill(s) fluconazole 100 100 mg=1 tab, No Longer [place] mg oral tablet PO, [id number], Active 2018 Medical X 90 day, # Center 90 tab, 0 Refill(s) Acetaminophen 650 mg=2 tab, No Longer [place] 325 MG Oral PO, Q6H, PRN Active 2018 Medical Tablet Pain 1-3/Temp Center > 100.4 F, 0 Refill(s) pantoprazole 40 40 mg=1 tab, No Longer [facility] mg oral enteric PO, Before Active 2017 Medical coated tablet Breakfast, 0 Center Refill(s) NIFEdipine 30 mg 30 mg=1 tab, No Longer [facility] oral tablet, PO, Daily, 0 Active 2017 Medical extended release Refill(s) [place] Insulin Glargine 14 unit, No Longer [facility] 100 UNT/ML SUB-Q, Active 2017 Medical Injectable Bedtime, 0 [place] Solution Refill(s) DULoxetine 30 mg 30 mg=1 cap, No Longer [facility] oral delayed PO, Daily, 0 Active 2017 Medical release capsule Refill(s) Center clopidogrel 75 75 mg=1 tab, No Longer [facility] mg oral tablet PO, Daily, 0 Active 2017 Medical Refill(s) Center Clonidine 0.1 mg=1 tab, No Longer [facility] Hydrochloride PO, BID, 0 Active 2017 Medical 0.1 MG Oral Refill(s) Center Tablet carvedilol 12.5 6.25 mg=0.5 No Longer [facility] mg oral tablet tab, PO, BID, Active 2018 Medical 0 Refill(s) Center Aspirin 81 MG 81 mg=1 tab, No Longer [facility] Chewable Tablet PO, Daily, 0 Active 2017 Medical Refill(s) Center Midazolam Route: IV, Inactive [facility] ONCE, Dosing 2018 Medical Weight Center 66.818, kg, Start date: 11/28/17 8:30:00 [employer], Stop date: 11/28/17 8:30:00 [employer] Fentanyl 25 microgram, Inactive [place] Route: IV, 2018 Medical ONCE, Dosing Center Weight 66.818, kg, Start date: 11/28/17 8:30:00 [employer], Stop date: 11/28/17 8:30:00 [employer] Midazolam 1 mg, Route: Inactive [place] IVP, Drug 2018 Medical form: INJ, Center ONCE, Dosing Weight 66.818, kg, Start date: 11/28/17 8:10:00 [employer], Stop date: 11/28/17 8:10:00 [employer] Fentanyl 50 microgram, Inactive [place] Route: IVP, 2018 Medical Drug form: Center INJ, ONCE, Dosing Weight 66.818, kg, Start date: 11/28/17 8:10:00 [employer], Stop date: 11/28/17 8:10:00 [employer] potassium 2 pkt, Route: No Longer [place] phosphate-sodium PO, Drug Active 2017 Medical phosphate 250 Form: Center mg-280 mg-160 mg PDR/REC, oral powder for Dosing Weight reconstitution 66.818, kg, PRN, PRN Abnormal Lab Result, For NON-ICU Patients Only, Start date: 11/28/17 5:41:00 [employer], Duration: 30 day, Stop date: 12/28/17 5:40:00 CSTNotes: (Same as: Phos-NaK) Each 1.5 gm pkt has 250mg phosphorous. Mix w/2.5oz water and stir. Potassium 20 mEq, 15 No Longer [place] Chloride mL, Route: Active 2017 [facility] [place], Drug Center form: LIQ, PRN, Dosing Weight 66.818, kg, PRN Abnormal Lab Result, For NON-ICU Patients Only, Start date: 11/28/17 5:41:00 [employer], Duration: 30 day, Stop date: 12/28/17 5:40:00 CSTNotes: (Same as: Potassium Chloride) sodium phosphate 15 mmol, 5 No Longer [place] mL, Route: Active 2017 [facility] IVPB, PRN, Center Dosing Weight 66.818, kg, PRN Abnormal Lab Result, For NON-ICU Patients Only., Start date: 11/28/17 5:41:00 [employer], Duration: 30 day, Stop date: 12/28/17 5:40:00 [employer] potassium 15 mmol, 5 No Longer [place] phosphate mL, Route: Active 2018 Medical IVPB, PRN, Center Dosing Weight 66.818, kg, PRN Abnormal Lab Result, For NON-ICU Patients Only., Start date: 11/28/17 5:41:00 [employer], Duration: 30 day, Stop date: 12/28/17 5:40:00 CSTNotes: (Same as: K Phosphate.) 1 mMol phoshate has 1.47 mEq potassium Infuse over 4 hours Magnesium 1 gm, 100 mL, No Longer [place] Sulfate Route: IVPB, Active 2018 Medical Drug form: Center INJ, PRN, Dosing Weight 66.818, kg, PRN Abnormal Lab Result, For NON-ICU Patients Only., Start date: 11/28/17 5:41:00 [employer], Duration: 30 day, Stop date: 12/28/17 5:40:00 CSTNotes: WASTE: F/P - Sink; E - Municipal Trash Bin Calcium 3 gm, 30 mL, No Longer [place] Gluconate Route: IVPB, Active 2018 Medical PRN, Dosing Center Weight 66.818, kg, PRN Abnormal Lab Result, For NON-ICU Patients Only., Start date: 11/28/17 5:41:00 [employer], Duration: 30 day, Stop date: 12/28/17 5:40:00 CSTNotes: WASTE: F/P - Sink; E - Municipal Trash Bin Magnesium Oxide 800 mg, 2 No Longer [place] tab, Route: Active 2018 Medical PO, Drug Center form: TAB, PRN, Dosing Weight 66.818, kg, PRN Abnormal Lab Result, For NON-ICU Patients Only., Start date: 11/28/17 5:41:00 [employer], Duration: 30 day, Stop date: 12/28/17 5:40:00 CSTNotes: (Same as: Mag-Ox 400) Magnesium oxide [id number] elemental magnesium Dose=____mg magnesium oxide (___mg elemental magnesium) Rasburicase 6 mg, Route: Inactive [place] IV, ONCE, 2018 Medical Dosing Weight Center 66.818, kg, Start date: 11/27/17 9:41:00 [employer], Stop date: 11/27/17 9:41:00 CSTNotes: Restricted Medication: [...] form: CRM, Start date: 11/26/17 9:00:00 [employer], Duration: 30 day, Stop date: 12/25/17 21:00:00 CSTNotes: (Same As: Zostrix) Furosemide 40 MG 40 mg, 1 tab, No Longer [place] Oral Tablet Route: PO, Active 2017 Medical [Lasix] Drug form: Center TAB, Daily, Dosing Weight 69.909, kg, Start date: 11/26/17 9:00:00 [employer], Duration: 30 day, Stop date: 12/25/17 9:00:00 CSTNotes: (Same as: Lasix) May cause GI upset. Give with food or milk. heparin additive 500 mL, Rate: No Longer [place] 25,000 unit [14 16.29 ml/hr, Active 2018 Medical unit/kg/hr] + Infuse over: [place] Premix Diluent 30.7 hr, Sodium Chloride Route: IV, 0.45% 500 mL Dosing Weight 58.17 kg, Total Volume: 500 mL, Start date: 11/26/17 7:16:00 [employer], Duration: 30 day, Stop date: 12/26/17 7:15:00 [employer], 1.62, [id number]: Total Concentration =50 unit/ ml Total bccjcx=480 ml Send Med Request 2 hours prior to next bag Diclofenac 2 gm, Route: No Longer [place] Sodium 0.01 TOP, Drug Active 2018 Medical MG/MG Topical form: GEL, [place] Gel [Voltaren] QID, Dosing Weight 66.818, kg, Start date: 11/25/17 21:00:00 [employer], Duration: 30 day, Stop date: 12/25/17 17:00:00 [employer] Dulcolax 10 mg, 1 No Longer [facility] Laxative supp, Route: Active 2017 Medical [place], Drug Center form: SUPP, Daily, Dosing Weight 66.818, kg, PRN Constipation, Start date: 11/25/17 10:46:00 [employer], Duration: 30 day, Stop date: 12/25/17 10:45:00 CSTNotes: (Same As: Dulcolax, Bisco-Lax) Docusate Sodium 100 mg, 1 No Longer [place] 100 MG Oral cap, Route: Active 2017 Medical Capsule PO, Drug Center form: CAP, BID, Dosing Weight 69.909, kg, Start date: 11/24/17 17:00:00 [employer], Duration: 30 day, Stop date: 12/24/17 9:00:00 CSTNotes: (Same as: Colace) (Do Not Crush) Lorazepam 1 mg, 0.5 mL, Inactive [place] Route: IVP, 2018 Medical Drug form: Center INJ, ONCE, Dosing Weight 69.909, kg, PRN Anxiety, Start date: 11/24/17 11:46:00 CSTNotes: (Same as: Ativan) Alprazolam 0.25 0.25 mg, 1 Inactive [facility] MG Oral Tablet tab, Route: 2018 Medical PO, Drug Center form: TAB, ONCE, Dosing Weight 69.909, kg, Start date: 11/24/17 11:46:00 [employer], Stop date: 11/24/17 11:46:00 CSTNotes: With food or milk (Same as: Xanax) Insulin Lispro 3 unit, 0.03 No Longer [place] mL, Route: Active 2017 Medical SUB-Q, Drug Center form: SOLN, TID-Before Meals, Dosing Weight 69.909, kg, Start date: 11/24/17 11:30:00 [employer], Duration: 30 day, Stop date: 12/24/17 7:30:00 CSTNotes: (Same as: Humalog ) Roll in palms of hands gently; Do not shake `vigorously. "Single Patient Use Only " WASTE: F/P - Black; E - Municipal Trash Bin Stable for 28 days at room temperature. Expires in days from _Date Miralax 17 gm, 1 pkt, No Longer [place] Route: PO, Active 2017 Medical Drug form: [place] PWDR, Daily, Dosing Weight 69.909, kg, Start date: 11/24/17 10:42:00 [employer], Duration: 30 day, Stop date: 12/24/17 9:00:00 CSTNotes: Dissolve in 8 oz of water or juice. (Same as: Miralax) Acetaminophen 1 tab, Route: No Longer [place] 300 MG / Codeine PO, Drug Active 2017 Medical Phosphate 30 MG Form: TAB, [place] Oral Tablet Dosing Weight [Tylenol with 69.909, kg, Codeine #3] Q8H, PRN Pain Score 1-3, Start date: 11/24/17 1:10:00 [employer], Duration: 30 day, Stop date: 12/24/17 1:09:00 CSTNotes: Do not exceed 4gm/day of acetaminophen . (Same as: Tylenol with Codeine # 3) Melatonin 3 MG 3 mg, 1 tab, No Longer [place] Extended Release Route: PO, Active 2017 Medical Tablet Drug Form: [place] TAB, Dosing Weight 69.909, kg, Bedtime, PRN as needed for insomnia, Start date: 11/23/17 20:51:00 [employer], Duration: 30 day, Stop date: 12/23/17 20:50:00 CSTNotes: (Same as: Melatonin) Furosemide 40 MG 40 mg, 1 tab, No Longer [place] Oral Tablet Route: PO, Active 2017 Medical [Lasix] Drug form: [place] TAB, BID, Dosing Weight 69.909, kg, Start date: 11/23/17 9:00:00 [employer], Duration: 30 day, Stop date: 12/22/17 17:00:00 CSTNotes: (Same as: Lasix) May cause GI upset. Give with food or milk. Simethicone 80 mg, 1 tab, No Longer [place] Route: CHEW, Active 2017 Medical Drug form: [place] CHEWTAB, TID, Dosing Weight 69.909, kg, PRN Gas, Start date: 11/22/17 16:31:00 [employer], Duration: 30 day, Stop date: 12/22/17 16:30:00 CSTNotes: (Same as: Mylicon) Lasix 20 mg, 2 mL, Inactive [facility] Route: IV, 2017 Medical Drug form: [place] INJ, ONCE, Dosing Weight 69.909, kg, Start date: 11/22/17 1:33:00 [employer], Stop date: 11/22/17 1:33:00 CSTNotes: (Same as: Lasix) Lasix 40 mg, 4 mL, Inactive [facility] Route: IVP2017 Medical Drug form: [place] INJ, Q8H, Dosing Weight 69.909, kg, Start date: 11/21/17 20:00:00 [employer], Duration: 30 day, Stop date: 12/21/17 12:00:00 CSTNotes: (Same as: Lasix) MEDICATION WASTE Product Size: 40 mg Product Wasted: ___ mg Levaquin 250 mg, 1 No Longer [facility] tab, Route: Active 2017 Medical PO, Drug Center form: TAB, [id number], Dosing Weight 69.909, kg, Start date: 11/21/17 16:00:00 [employer], Duration: 10 day, Stop date: 11/30/17 16:00:00 [employer], ABX Indication: Other (specify in Comments) Furosemide 40 mg, 4 mL, Inactive [facility] Route: IVP2017 Medical Drug form: [place] INJ, ONCE, Dosing Weight 69.909, kg, Start date: 11/21/17 9:27:00 [employer], Stop date: 11/21/17 9:27:00 CSTNotes: (Same as: Lasix) MEDICATION WASTE Product Size: 40 mg Product Wasted: ___ mg Aspirin 81 MG 81 mg, 1 tab, No Longer [place] Enteric Coated Route: PO, Active 2017 Medical Tablet Drug form: [place] ECTAB, Daily, Dosing Weight 69.909, kg, Start date: 11/21/17 9:00:00 [employer], Duration: 30 day, Stop date: 12/20/17 9:00:00 CSTNotes: Do not crush or chew. (Same As: Ecotrin) NIFEdipine 30 mg 30 mg, 1 tab, No Longer [place] oral tablet, Route: PO, Active 2018 Medical extended release Drug form: [place] ERTAB, Daily, Dosing Weight 69.909, kg, Start date: 11/21/17 9:00:00 [employer], Duration: 30 day, Stop date: 12/20/17 12:00:00 CSTNotes: (Same as: Adalat CC, Procardia XL) Give on empty stomach. Take 1 hour before or 2 hours after meal; "Avoid grapefruit and grapefruit juice". Do not crush Lisinopril 40 mg, 2 tab, No Longer [place] Route: PO, Active 2017 Medical Drug form: [place] TAB, Daily, Dosing Weight 69.909, kg, Start date: 11/21/17 9:00:00 [employer], Duration: 30 day, Stop date: 12/20/17 9:00:00 CSTNotes: (Same as: Prinivil, Zestril) duloxetine 30 mg, 1 cap, No Longer [facility] Route: PO, Active 2017 Medical Drug form: [place] DRC, Daily, Dosing Weight 69.909, kg, Start date: 11/21/17 9:00:00 [employer], Duration: 30 day, Stop date: 12/20/17 9:00:00 CSTNotes: (Same as: Cymbalta) (Do Not Crush) clopidogrel 75 mg, 1 tab, No Longer [place] Route: PO, Active 2017 Medical Drug form: [place] TAB, Daily, Dosing Weight 69.909, kg, Start date: 11/21/17 9:00:00 [employer], Duration: 30 day, Stop date: 12/20/17 9:00:00 CSTNotes: (Same As: Plavix) pantoprazole 40 mg, 1 tab, No Longer [place] Route: PO, Active 2018 Medical Drug form: [place] ECTAB, Before Breakfast, Dosing Weight 69.909, kg, Start date: 11/21/17 7:30:00 [employer], Duration: 30 day, Stop date: 12/20/17 7:30:00 CSTNotes: Tablet should not be chewed or crushed. (Same as: Protonix) Magnesium 2 gm, 50 mL, Inactive [place] Sulfate Route: IVPB, 2017 Medical Drug form: [place] INJ, Q2H, Dosing Weight 69.909, kg, Total dose=4 gm, Start date: 11/21/17 2:00:00 [employer], Duration: 2 doses or times, Stop date: 11/21/17 4:00:00 CSTNotes: WASTE: F/P - Sink; E - Municipal Trash Bin heparin sodium, 5,000 unit, 1 No Longer [place] porcine 2500 mL, Route: Active 2017 Medical UNT/ML SUB-Q, Drug Center Injectable form: INJ, Solution Q8H-06, Dosing Weight 69.909, kg, Start date: 11/20/17 22:00:00 [employer], Duration: 30 day, Stop date: 12/20/17 14:00:00 CSTNotes: porcine heparin 1.5 ML Insulin 14 unit, Inactive [place] Glargine 300 Route: SUB-Q, 2018 Medical UNT/ML Prefilled Drug form: [place] Syringe [Toujeo] SOLN, Bedtime, Dosing Weight 69.909, kg, Start date: 11/20/17 21:00:00 [employer], Duration: 30 day, Stop date: 12/19/17 21:00:00 [employer] insulin glargine 11 unit, 0.11 No Longer [place] mL, Route: Active 2017 Medical SUB-Q, Drug Center form: SOLN, Bedtime, Start date: 11/20/17 21:00:00 [employer], Duration: 30 day, Stop date: 12/19/17 21:00:00 CSTNotes: (Same as: Lantus) Do not hold insulin without contacting prescriber WASTE: F/P - Black; E - Municipal Trash Bin "single patient use only" Diuril 250 mg, No Longer [place] Route: IV, Active 2017 Medical Q8Hnow, Center Dosing Weight 69.909, kg, Start date: 11/20/17 18:00:00 [employer], Duration: 2 doses or times, Stop date: 11/21/17 6:30:00 CSTNotes: (Same As: Diuril Sodium) carvedilol 12.5 mg, 1 No Longer [facility] tab, Route: Active 2017 Medical PO, Drug Center form: TAB, BID, Dosing Weight 69.909, kg, Start date: 11/20/17 17:00:00 [employer], Duration: 30 day, Stop date: 12/20/17 9:00:00 CSTNotes: Give with food. (Same As: Coreg) Valtrex 500 mg, 1 No Longer [facility] tab, Route: Active 2017 Medical PO, Drug Center form: TAB, Q24H, Start date: 11/20/17 16:00:00 [employer], Duration: 30 day, Stop date: 12/19/17 16:00:00 CSTNotes: (Same As: Valtrex) famciclovir 500 500 mg, 1 Inactive [facility] MG Oral Tablet tab, Route: 2017 Medical [Famvir] PO, Drug Center form: TAB, Q8H, Dosing Weight 69.909, kg, Start date: 11/20/17 16:00:00 [employer], Duration: 30 day, Stop date: 12/20/17 8:00:00 [employer] Levaquin 500 mg, 100 Inactive [facility] mL, Route: 2018 Medical IVPB, Drug Center form: SOLN, ONCE, Dosing Weight 69.909, kg, Start date: 11/20/17 14:43:00 [employer], Stop date: 11/20/17 14:43:00 [employer], ABX Indication: Other (specify in Comments)Note s: (Same as:Levaquin) Levaquin 500 mg, Inactive [facility] Route: IVPB, 2018 Medical Drug form: Center SOLN, [id number], Dosing Weight 69.909, kg, Start date: 11/20/17 14:00:00 [employer], Duration: 10 day, Stop date: 11/29/17 14:00:00 [employer], ABX Indication: Other (specify in Comments) Diflucan 100 mg, 1 No Longer [facility] tab, Route: Active 2017 Medical PO, Drug Center form: TAB, [id number], Dosing Weight 69.909, kg, Start date: 11/20/17 14:00:00 [employer], Duration: 30 day, Stop date: 12/19/17 14:00:00 CSTNotes: (Same as: Diflucan) Furosemide 100 mg, 10 No Longer [place] mL, Rate: 10 Active 2018 Medical mg/hour, Center Dosing Weight 69.909, kg, Route: IV, Total Volume: 100, Start Date: 11/20/17 13:33:00 [employer], Duration: 30 day, Stop date: 12/20/17 13:32:00 [employer], Replace Every: 24 hr, continuousNot es: (Same as: Lasix) MEDICATION WASTE Product Size: 100 mg Product Wasted: ___ mg Clonidine 0.1 mg, 1 No Longer [place] Hydrochloride tab, Route: Active 2018 Medical 0.1 MG Oral PO, Drug Center Tablet form: TAB, BID, Dosing Weight 69.909, kg, Priority: NOW, Start date: 11/20/17 12:57:00 [employer], Duration: 30 day, Stop date: 12/20/17 9:00:00 CSTNotes: (Same As: Catapres) Insulin Lispro 3 unit, 0.03 No Longer [place] mL, Route: Active 2018 Medical SUB-Q, Drug Center form: SOLN, TID-Before Meals, Dosing Weight 69.909, kg, PRN Blood Glucose Results, Start date: 11/20/17 12:55:00 [employer], Duration: 30 day, Stop date: 12/20/17 12:54:00 [...] Glucose Results, Start date: 11/20/17 12:55:00 [employer], Duration: 30 day, Stop date: 12/20/17 12:54:00 [employer] Dextrose 50% 12.5 gm, 25 No Longer [facility] Syringe mL, Route: Active 2018 Medical IVP, Drug Center Form: INJ, Dosing Weight 69.909, kg, PRN, PRN Blood Glucose Results, Start date: 11/20/17 12:55:00 [employer], Duration: 30 day, Stop date: 12/20/17 12:54:00 [employer] Tylenol 650 mg, 2 No Longer [facility] tab, Route: Active 2018 Medical PO, Drug Center form: TAB, Q6H, Dosing Weight 69.909, kg, PRN Pain 1-3/Temp > 100.4 F, Start date: 11/20/17 12:54:00 [employer], Duration: 30 day, Stop date: 12/20/17 12:53:00 CSTNotes: Do not exceed 4 gm/day. (Same as: Tylenol) Saline Flush 10 ml, Route: No Longer [facility] 0.9% IVP, Drug Active 2017 Medical Form: INJ, Center Dosing Weight 69.716, kg, Q12H, Start date: 11/20/17 9:00:00 [employer], Duration: 30 day, Stop date: 12/19/17 21:00:00 CSTNotes: Same as: BD Posiflush Sterile Lasix 20 mg, 2 mL, Inactive [facility] Route: IVP, 2018 Medical Drug form: Center INJ, Q8H, Dosing Weight 69.716, kg, Start date: 11/20/17 8:00:00 [employer], Duration: 30 day, Stop date: 12/20/17 0:00:00 CSTNotes: (Same as: Lasix) Tylenol 650 mg, 20.3 Inactive [facility] mL, Route: 2018 Medical PO, Drug Center form: LIQ, ONCE, Dosing Weight 69.909, kg, Start date: 11/20/17 5:20:00 [employer], Stop date: 11/20/17 5:20:00 CSTNotes: Max acetaminophen =4000mg/day (4 gm/day). (Same as: Tylenol) Sodium Chloride 250 mL, 250 Inactive [facility] 0.9% (Bolus) IV ml/hr, Infuse 2018 Medical Over: 1 hr, Center Route: IV, 250, Drug form: INJ, ONCE, Priority: STAT, Dosing Weight 69.909 kg, Start date: 11/20/17 1:33:00 [employer], Stop date: 11/20/17 1:33:00 [employer] Rasburicase 6 mg, Route: Inactive 11/20[facility] IV, ONCE, 2018 Medical Dosing Weight Center 69.909, kg, Start date: 11/20/17 1:31:00 [employer], Stop date: 11/20/17 1:31:00 CSTNotes: Restricted Medication: All Doses of Rasburicase should be interchanged to Rasburicase 6 mg x1 dose. A second dose may be given for patients unresponsive to 1 dose. (Same as:Elitek) MEDICATION WASTE Product Size: 1.5 mg Product Wasted: ___ mg Lasix 20 mg, 2 mL, Inactive [facility] Route: IVP, 2017 Medical Drug form: Center INJ, Q8H, Dosing Weight 69.716, kg, Start date: 11/20/17 0:00:00 [employer], Duration: 30 day, Stop date: 12/19/17 16:00:00 CSTNotes: (Same as: Lasix) Saline Flush 10 ml, Route: No Longer [facility] 0.9% IVP, Drug Active 2017 Medical Form: INJ, Center Dosing Weight 69.716, kg, PRN, PRN Line Flush, Start date: 11/19/17 22:17:00 [employer], Duration: 30 day, Stop date: 12/19/17 22:16:00 CSTNotes: Same as: BD Posiflush Sterile cefepime 1 gm, Route: Inactive 11/20[facility] IVP, ONCE, 2018 Medical Dosing Weight Center 69.716, kg, Priority: STAT, Start date: 11/19/17 19:46:00 [employer], Stop date: 11/19/17 19:46:00 [employer], ABX Indication: PneumoniaNote s: (Same As: Maxipime) MEDICATION WASTE Product Size: 1000 mg Product Wasted: ___ mg Vancomycin 1,500 mg, Inactive 11/20[facility] Route: IVPB, 2018 Medical ONCE, Dosing Center Weight 69.716, kg, Priority: STAT, Start date: 11/19/17 19:45:00 [employer], Stop date: 11/19/17 19:45:00 [employer], ABX Indication: PneumoniaNote s: TIME CRITICAL MEDICATION (Same As: Vancocin) Infusion rate 2001 mg: infuse over 2.5 hours For adult patients only: Round to nearest 250 mg per Medical Staff approval MEDICATION WASTE Product Size: 1000 mg Product Wasted: ___ mg Sodium Chloride 250 mL, Rate: No Longer [place] 0.9% (titrate) To prime line Active 2017 Medical 250 mL and flush Center remaining blood products., Dosing Weight 69.716, kg, Route: IV, Total Volume: 250, Priority: Routine, Start Date: 11/19/17 18:49:00 [employer], Duration: 30 day, Stop date: 12/19/17 18:48:00 [employer], Replace Every: 24 hrNotes: do not load in pyxis pantoprazole 40 40 mg=1 tab, Active [place] mg oral enteric PO, Before 2018 Medical coated tablet Breakfast, # Center 30 tab, 3 Refill(s) NIFEdipine 30 mg 30 mg=1 tab, Active [place] oral tablet, PO, Daily, # 2018 Medical extended release 60 tab, 3 Center Refill(s) lisinopril 20 mg 40 mg=2 tab, Active [facility] oral tablet PO, Daily, # 2018 Medical 60 tab, 3 Center Refill(s) DULoxetine 30 mg 30 mg=1 cap, Active [facility] oral delayed PO, Daily, # 2018 Medical release capsule 30 cap, 3 Center Refill(s) clopidogrel 75 75 mg=1 tab, Active [place] mg oral tablet PO, Daily, # 2018 Medical 30 tab, 3 Center Refill(s) Clonidine 0.1 mg, PO, Active [place] Hydrochloride BID, # 60 2018 Medical 0.1 MG Oral tab, 3 Center Tablet Refill(s) carvedilol 12.5 12.5 mg=1 Active [place] mg oral tablet tab, PO, BID, 2018 Medical # 60 tab, 3 Center Refill(s) aspirin 81 mg 81 mg=1 tab, Active [place] tablet, enteric PO, Daily, # 2018 Medical coated 30 tab, 3 Center Refill(s) Lasix 40 mg, 4 mL, Inactive [place] Route: IVP, 2018 Medical Drug form: Center INJ, ONCE, Dosing Weight 72.455, kg, Start date: 11/01/17 7:11:00 [employer], Stop date: 11/01/17 7:11:00 CSTNotes: (Same as: Lasix) MEDICATION WASTE Product Size: 40 mg Product Wasted: ___ mg Sodium Chloride 250 mL, Rate: No Longer [place] 0.9% (titrate) 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 (Same As: Coreg) Clonidine 0.1 mg, 1 No Longer [place] Hydrochloride tab, Route: Active 2018 Medical 0.1 MG Oral PO, Drug Center Tablet form: TAB, ONCE, Dosing Weight 72.455, kg, Priority: NOW, Start date: 10/31/17 23:42:00 [employer], Stop date: 10/31/17 23:42:00 CSTNotes: (Same As: Catapres) tramadol 50 mg, 1 tab, No Longer [place] hydrochloride 50 Route: PO, Active 2018 Medical MG Oral Tablet Drug form: Center TAB, Q4H, Dosing Weight 72.455, kg, PRN Pain Score 1-3, Start date: 10/31/17 22:00:00 [employer], Duration: 30 day, Stop date: 11/30/17 21:59:00 CSTNotes: Not to exceed 400mg/day. (Same As: Ultram) chlorhexidine 15 mL, Route: No Longer [place] gluconate 1.2 Swab Mouth, Active 2017 Medical MG/ML Mouthwash Q12H, Drug Center form: LIQ, Start date: 10/31/17 21:00:00 [employer], Duration: 30 day, Stop date: 11/30/17 9:00:00 CSTNotes: (Same As: Peridex) Dextrose 50% 12.5 gm, 25 No Longer [place] Syringe mL, Route: Active 2017 Medical IVP, Drug Center Form: INJ, Dosing Weight 72.455, kg, PRN, PRN Blood Glucose Results, Start date: 10/31/17 19:34:00 [employer], Duration: 30 day, Stop date: 11/30/17 19:33:00 [employer] Insulin regular 99 mL, Rate: No Longer [place] 100 unit + Start Insulin Active 2017 Medical Drip Per ICU Center Protocol, Dosing Weight 72.455, kg, Route: IVPB, Total Volume: 100, Start Date: 10/31/17 19:34:00 [employer], Duration: 30 day, Stop date: 11/30/17 19:33:00 [employer], Replace Every: 24 hrNotes: Final Concentration 1unit/1ml WASTE: F/P - Black; E - Municipal Trash Bin Fentanyl 25 microgram, Inactive [place] 0.5 mL, 2017 Medical Route: IVP, Center Drug form: INJ, ONCE, Dosing Weight 72.455, kg, Start date: 10/31/17 18:55:00 [employer], Stop date: 10/31/17 18:55:00 CSTNotes: (Same as: Sublimaze) Preservative free. ocular lubricant 1 appl, No Longer [place] Route: BOTH Active 2017 Medical EYES, Q6H, Center Drug form: OINT, Start date: 10/31/17 18:00:00 [employer], Duration: 30 day, Stop date: 11/30/17 12:00:00 CSTNotes: (Same as: Lacri-Lube, Duratears Naturale, Artificial Tears, and Tears Again ) chlorhexidine 15 mL, Route: No Longer [place] gluconate 1.2 Swab Mouth, Active 2017 Medical MG/ML Mouthwash PRN, Drug Center form: LIQ, PRN Other -See Comment, Start date: 10/31/17 17:28:00 [employer], Duration: 30 day, Stop date: 11/30/17 17:27:00 CSTNotes: (Same As: Peridex) rocuronium Route: IV, Inactive [place] (ANES) Drug form: 2017 Medical INJ, ONCE, Center Stop date: 10/31/17 16:57:00 [employer] Sodium Chloride 750 mL, Rate: No Longer [place] 0.9% IV 750 mL 75 ml/hr, Active 2017 Medical Infuse over: Center 10 hr, Route: IV, Dosing Weight 72.455 kg, Total Volume: 750, Start date: 10/31/17 16:56:00 [employer], Duration: 10 hr, Stop date: 11/01/17 2:55:00 [employer], 1.81, m2 protamine (ANES) Route: IV, Inactive [facility] Drug form: 2017 Medical INJ, ONCE, Center Stop date: 10/31/17 16:42:00 [employer] propofol (ANES) Route: IV, Inactive [facility] Drug form: 2018 Medical INJ, ONCE, Center Stop date: 10/31/17 16:22:00 [employer] norepinephrine Route: IV, Inactive [place] (ANES) Drug form: 2018 Medical INJ, ONCE, Center Stop date: 10/31/17 16:22:00 [employer] ondansetron Route: IV, Inactive [place] (ANES) Drug form: 2017 Medical INJ, ONCE, Center Stop date: 10/31/17 16:08:00 [employer] fentaNYL (ANES) Route: IV, Inactive [facility] Drug form: 2018 Medical INJ, ONCE, Center Stop date: 10/31/17 15:37:00 [employer] heparin (ANES) Route: IV, Inactive [facility] Drug form: 2018 Medical INJ, ONCE, Center Stop date: 10/31/17 15:37:00 [employer] Ondansetron 4 mg, 2 mL, No Longer [place] Route: IVP, Active 2017 Medical Drug form: Center INJ, ONCE, Dosing Weight 72.455, kg, PRN Nausea & Vomiting, Start date: 10/31/17 15:27:00 CSTNotes: (Same as: Zofran) MEDICATION WASTE Product Size: 4 mg Product Wasted: ___ mg Fentanyl 25 microgram, No Longer [place] 0.5 mL, Active 2017 Medical Route: IVP, Center Drug form: INJ, Q5Min, Dosing Weight 72.455, kg, PRN Pain Score 4-6, Priority: Routine, Start date: 10/31/17 15:27:00 [employer], Duration: 4 doses or times, Stop date: 11/01/17 0:00:00 CSTNotes: (Same as: Sublimaze) Preservative free. Naloxone 0.4 mg, 1 mL, No Longer [place] Route: IVP, Active 2017 Medical Drug form: Center INJ, Q2MIN, Dosing Weight 72.455, kg, PRN Narcotic Reversal, Start date: 10/31/17 15:27:00 [employer], Duration: 8 doses or times, Stop date: 11/01/17 0:00:00 CSTNotes: Same as Narcan Flumazenil 0.2 mg, 2 mL, No Longer [facility] Route: IVP, Active 2017 Medical Drug form: Center INJ, PRN, Dosing Weight 72.455, kg, PRN Benzodiazepin e Reversal, Initial dose, Start date: 10/31/17 15:27:00 [employer], Stop date: 11/01/17 0:00:00 CSTNotes: (Same as: Romazicon) midazolam (ANES) Route: IV, Inactive [facility] Drug form: 2017 Medical SOLN, ONCE, Center Stop date: 10/31/17 15:02:00 [employer] ceFAZolin (ANES) Route: IV, Inactive [facility] Drug form: 2018 Medical INJ, ONCE, Center Stop date: 10/31/17 14:37:00 [employer] Sodium Chloride Route: IV, Inactive [facility] 0.9% IV (ANES) Total Volume: 2017 Medical 500 mL 500, Start Center date: 10/31/17 13:50:00 [employer], Stop date: 10/31/17 14:50:00 [employer] dexmedetomidine Route: IV, Inactive [place] (ANES) 400 Drug form: 2017 Medical microgram INJ, Start Center date: 10/31/17 13:50:00 [employer], Stop date: 10/31/17 14:50:00 [employer] Pravastatin 20 mg, 1 tab, No Longer [place] Route: PO, Active 2017 Medical Drug form: [place] TAB, Bedtime, Dosing Weight 72.455, kg, Start date: 10/30/17 21:00:00 [employer], Duration: 30 day, Stop date: 11/28/17 21:00:00 CSTNotes: (Same as: Pravachol) Pneumovax 23 0.5 mL, Inactive [facility] Route: IM, 2017 Medical Drug Form: [place] INJ, Daily, Start date: 10/30/17 12:00:00 [employer], Duration: 1 doses or times, Stop date: 10/30/17 12:00:00 CSTNotes: (Same as: Pneumovax 23) Refrigerate Hydralazine 10 mg, 0.5 No Longer [place] mL, Route: Active 2017 Medical IV, Drug Center form: INJ, Q6H, Dosing Weight 72.455, kg, PRN Other -See Comment, Start date: 10/30/17 10:28:00 [employer], Duration: 30 day, Stop date: 11/29/17 10:27:00 [employer], SBP>160Notes: (Same as: Apresoline) Push over 5 minutes pneumococcal 0.5 mL, Inactive [facility] capsular Route: IM, 2017 Medical polysaccharide Drug Form: [place] type 1 vaccine / INJ, Daily, pneumococcal Start date: capsular 10/30/17 polysaccharide 9:00:00 [employer], type 10A vaccine Duration: 1 / pneumococcal doses or capsular times, Stop polysaccharide date: type 11A vaccine 10/30/17 / pneumococcal 9:00:00 capsular CSTNotes: polysaccharide (Same as: type 12F vaccine Pneumovax 23) / pneumococcal Refrigerate capsular polysacchar influenza virus 0.5 mL, Inactive [facility] vaccine, Route: IM, 2018 Medical inactivated Drug Form: [place] SUSP, Daily, Start date: 10/30/17 9:00:00 [employer], Duration: 1 doses or times, Stop date: 10/30/17 9:00:00 CSTNotes: (Same as: Fluzone Quadrivalent, Fluarix Quadrivalent) For 3 years of age and older (0.5 mL IM) Shake well before use Coreg 12.5 mg, 1 No Longer [place] tab, Route: Active 2018 Medical PO, Drug Center form: TAB, BID, Dosing Weight 72.455, kg, Start date: 10/30/17 9:00:00 [employer], Duration: 30 day, Stop date: 11/28/17 17:00:00 CSTNotes: Give with food. (Same As: Coreg) aspirin 81 mg 81 mg, 1 tab, No Longer [place] tablet, enteric Route: PO, Active 2017 Medical coated Drug form: [place] ECTAB, Daily, Dosing Weight 72.455, kg, Start date: 10/30/17 9:00:00 [employer], Duration: 30 day, Stop date: 11/28/17 9:00:00 CSTNotes: Do not crush or chew. (Same As: Ecotrin) Amlodipine 10 mg, 1 tab, Inactive [place] Route: PO, 2017 Medical Drug form: [place] TAB, Daily, Dosing Weight 72.455, kg, Start date: 10/30/17 9:00:00 [employer], Duration: 30 day, Stop date: 11/28/17 9:00:00 CSTNotes: (Same as: Norvasc) NIFEdipine 30 mg 30 mg, 1 tab, No Longer [place] oral tablet, Route: PO, Active 2017 Medical extended release Drug form: [place] ERTAB, Daily, Dosing Weight 72.455, kg, Start date: 10/30/17 9:00:00 [employer], Duration: 30 day, Stop date: 11/28/17 9:00:00 CSTNotes: (Same as: Adalat CC, Procardia XL) Give on empty stomach. Take 1 hour before or 2 hours after meal; "Avoid grapefruit and grapefruit juice". Do not crush Lisinopril 40 mg, 2 tab, No Longer [place] Route: PO, Active 2017 Medical Drug form: [place] TAB, Daily, Dosing Weight 72.455, kg, Start date: 10/30/17 9:00:00 [employer], Duration: 30 day, Stop date: 11/28/17 9:00:00 CSTNotes: (Same as: Prinivil, Zestril) duloxetine 30 mg, 1 cap, No Longer [place] Route: PO, Active 2018 Medical Drug form: [place] DRC, Daily, Dosing Weight 72.455, kg, Start date: 10/30/17 9:00:00 [employer], Duration: 30 day, Stop date: 11/28/17 9:00:00 CSTNotes: (Same as: Cymbalta) (Do Not Crush) clopidogrel 75 mg, 1 tab, No Longer [place] Route: PO, Active 2017 Medical Drug form: [place] TAB, Daily, Dosing Weight 72.455, kg, Start date: 10/30/17 9:00:00 [employer], Duration: 30 day, Stop date: 11/28/17 9:00:00 CSTNotes: (Same As: Plavix) 12 HR Clonidine 0.1 mg, 1 No Longer [place] Hydrochloride tab, Route: Active 2018 Medical 0.1 MG Extended PO, Drug [place] Release Tablet form: TAB, BID, Dosing Weight 72.455, kg, Start date: 10/30/17 9:00:00 [employer], Duration: 30 day, Stop date: 11/28/17 17:00:00 CSTNotes: (Same As: Catapres) heparin 5,000 unit, 1 No Longer [place] mL, Route: Active 2018 Medical SUB-Q, Drug [place] form: INJ, Q8H, Dosing Weight 72.455, kg, Start date: 10/30/17 8:00:00 [employer], Duration: 30 day, Stop date: 11/29/17 0:00:00 CSTNotes: porcine heparin Protonix 40 mg, 1 tab, No Longer [facility] Route: PO, Active 2018 Medical Drug form: [place] ECTAB, Before Breakfast, Dosing Weight 72.455, kg, Start date: 10/30/17 7:30:00 [employer], Duration: 30 day, Stop date: 11/28/17 7:30:00 CSTNotes: Tablet should not be chewed or crushed. (Same as: Protonix) Benzocaine 15 MG 1 lozenge, No Longer [facility] / Menthol 3.6 MG Route: MUCOUS Active 2017 Medical Lozenge [Cepacol MEM, Drug [place] Sore Throat Pain Form: SHWTEA, Relief 15/3.6] Dosing Weight 72.455, kg, Q2H, PRN Sore Throat, Start date: 10/30/17 1:15:00 [employer], Duration: 30 day, Stop date: 11/29/17 1:14:00 CSTNotes: Cepacol lozenges Dispense 1 box=16 lozenges (Same As: Cepacol Lozenges) Lasix 20 mg, 2 mL, No Longer [facility] Route: IV, Active 2018 Medical Drug form: [place] INJ, Q12H, Dosing Weight 72.455, kg, Start date: 10/29/17 21:00:00 [employer], Duration: 30 day, Stop date: 11/28/17 9:00:00 CSTNotes: (Same as: Lasix) Melatonin 3 MG 3 mg, 1 tab, No Longer [facility] Extended Release Route: PO, Active 2018 Medical Tablet Drug Form: [place] TAB, Dosing Weight 72.455, kg, Bedtime, Start date: 10/29/17 21:00:00 [employer], Duration: 30 day, Stop date: 11/27/17 21:00:00 CSTNotes: (Same as: Melatonin) Glucagon 1 mg, Route: No Longer [facility] IM, Drug Active 2018 Medical form: [place] PDR/INJ, PRN, Dosing Weight 72.455, kg, PRN Blood Glucose Results, Start date: 10/29/17 20:50:00 [employer], Duration: 30 day, Stop date: 11/28/17 20:49:00 [employer] Dextrose 50% 25 gm, 50 mL, No Longer [facility] Syringe Route: IVP, Active 2018 Medical Drug Form: [place] INJ, Dosing Weight 72.455, kg, PRN, PRN Blood Glucose Results, Start date: 10/29/17 20:50:00 [employer], Duration: 30 day, Stop date: 11/28/17 20:49:00 [employer] Insulin Lispro 8 unit, 0.08 No Longer [facility] mL, Route: Active 2018 Medical SUB-Q, Drug Center form: SOLN, TID-Before Meals, Dosing Weight 72.455, kg, PRN Blood Glucose Results, Start date: 10/29/17 20:50:00 [employer], Duration: 30 day, Stop date: 11/28/17 20:49:00 [...] Patients Only., Start date: 10/29/17 20:50:00 [employer], Duration: 30 day, Stop date: 11/28/17 20:49:00 CSTNotes: (Same as: Mag-Ox 400) Magnesium oxide [id number] elemental magnesium Dose=____mg magnesium oxide (___mg elemental magnesium) Calcium 2 gm, 20 mL, No Longer [place] Gluconate Route: IVPB, Active 2018 Medical PRN, Dosing Center Weight 72.455, kg, PRN Abnormal Lab Result, For NON-ICU Patients Only., Start date: 10/29/17 20:50:00 [employer], Duration: 30 day, Stop date: 11/28/17 20:49:00 CSTNotes: WASTE: F/P - Sink; E - Municipal Trash Bin sodium phosphate 15 mmol, 5 No Longer [place] mL, Route: Active 2018 Medical IVPB, PRN, Center Dosing Weight 72.455, kg, PRN Abnormal Lab Result, For NON-ICU Patients Only., Start date: 10/29/17 20:50:00 [employer], Duration: 30 day, Stop date: 11/28/17 20:49:00 [employer] potassium 30 mmol, 10 No Longer [place] phosphate mL, Route: Active 2018 Medical IVPB, PRN, Center Dosing Weight 72.455, kg, PRN Abnormal Lab Result, For NON-ICU Patients Only., Start date: 10/29/17 20:50:00 [employer], Duration: 30 day, Stop date: 11/28/17 20:49:00 CSTNotes: (Same as: K Phosphate.) 1 mMol phoshate has 1.47 mEq potassium Infuse over 4 hours Magnesium 2 gm, 50 mL, No Longer [place] Sulfate Route: IVPB, Active 2018 Medical Drug form: [place] INJ, PRN, Dosing Weight 72.455, kg, PRN Abnormal Lab Result, For NON-ICU Patients Only., Start date: 10/29/17 20:50:00 [employer], Duration: 30 day, Stop date: 11/28/17 20:49:00 CSTNotes: WASTE: F/P - Sink; E - Municipal Trash Bin Potassium 20 mEq, 1 No Longer [facility] Chloride tab, Route: Active 2018 Medical PO, Drug Center form: ERTAB, PRN, Dosing Weight 72.455, kg, PRN Abnormal Lab Result, For NON-ICU Patients Only, Start date: 10/29/17 20:50:00 [employer], Duration: 30 day, Stop date: 11/28/17 20:49:00 [...] Patients Only, Start date: 10/29/17 20:50:00 [employer], Duration: 30 day, Stop date: 11/28/17 20:49:00 CSTNotes: (Same as: Phos-NaK) Each 1.5 gm pkt has 250mg phosphorous. Mix w/2.5oz water and stir. Magnesium 2 gm, 50 mL, Inactive [place] Sulfate Route: IVPB2017 Medical Drug form: [place] INJ, ONCE, Dosing Weight 72.455, kg, Start date: 10/29/17 19:55:00 [employer], Stop date: 10/29/17 19:55:00 CSTNotes: WASTE: F/P - Sink; E - Municipal Trash Bin insulin glargine SUB-Q, Daily, No Longer [facility] (concentrated) 0 Refill(s) Active 2018 Medical 300 units/mL [place] subcutaneous solution DULoxetine 30 mg 30 mg=1 cap, No Longer [facility] oral delayed PO, Daily, # Active 2017 Medical release capsule 90 cap, 0 Center Refill(s) NIFEdipine 30 mg 30 mg=1 tab, No Longer [place] oral tablet, PO, Daily, # Active 2018 Medical extended release 90 tab, 1 Center Refill(s) Amlodipine 10 mg, 1 tab, No Longer [facility] Route: PO, Active 2015 Medical Drug form: Center TAB, Daily, Dosing Weight 78.636, kg, Start date: 05/30/16 9:00:00 CDT, Duration: 30 day, Stop date: 06/28/16 9:00:00 CDTNotes: (Same as: Norvasc) Protonix 40 mg, 1 tab, No Longer [facility] Route: PO, Active 2015 Medical Drug form: [place] ECTAB, Daily, Dosing Weight 78.636, kg, Start date: 05/30/16 9:00:00 CDT, Duration: 30 day, Stop date: 06/28/16 9:00:00 CDTNotes: Tablet should not be chewed or crushed. (Same as: Protonix) Lisinopril 40 mg, 2 tab, No Longer [facility] Route: PO, Active 2015 Medical Drug form: [place] TAB, Daily, Dosing Weight 78.636, kg, Start date: 05/30/16 9:00:00 CDT, Duration: 30 day, Stop date: 06/28/16 9:00:00 CDTNotes: (Same as: Prinivil, Zestril) clopidogrel 75 mg, 1 tab, No Longer [facility] Route: PO, Active 2015 Medical Drug form: [place] TAB, Daily, Dosing Weight 78.636, kg, Start date: 05/30/16 9:00:00 CDT, Duration: 30 day, Stop date: 06/28/16 9:00:00 CDTNotes: (Same As: Plavix) Aspirin 81 MG 81 mg, 1 tab, No Longer [facility] Enteric Coated Route: PO, Active 2015 Medical Tablet Drug form: [place] ECTAB, Daily, Dosing Weight 78.636, kg, Start date: 05/30/16 9:00:00 CDT, Duration: 30 day, Stop date: 06/28/16 9:00:00 CDTNotes: Do not crush or chew. (Same As: Ecotrin) NovoLOG FlexPen Route: SUB-Q, No Longer [facility] Drug form: Active 2016 Medical INJ, Before Center Breakfast, Dosing Weight 78.636, kg, Start date: 05/30/16 7:30:00 CDT, Duration: 30 day, Stop date: 06/28/16 7:30:00 CDT Pravastatin 20 mg, 1 tab, Inactive [facility] Route: PO, 2015 Medical Drug form: Center TAB, Bedtime, Dosing Weight 78.636, kg, Start date: 05/29/16 21:00:00 CDT, Duration: 30 day, Stop date: 06/27/16 21:00:00 CDTNotes: (Same as: Pravachol) glimepiride 4 mg, 1 tab, Inactive [facility] Route: PO, 2015 Medical Drug form: [place] TAB, BID, Dosing Weight 78.636, kg, Start date: 05/29/16 17:00:00 CDT, Duration: 30 day, Stop date: 06/28/16 9:00:00 CDTNotes: (Same as: Amaryl) cyclobenzaprine 10 mg, 1 tab, Inactive 05/29[facility] Route: PO, 2015 Medical Drug form: [place] TAB, QPM, Dosing Weight 78.636, kg, Start date: 05/29/16 17:00:00 CDT, Duration: 30 day, Stop date: 06/27/16 17:00:00 CDTNotes: (Same As: Flexeril) 12 HR Clonidine 0.1 mg, 1 Inactive [facility] Hydrochloride tab, Route: 2016 Medical 0.1 MG Extended PO, Drug Center Release Tablet form: TAB, BID, Dosing Weight 78.636, kg, Start date: 05/29/16 17:00:00 CDT, Duration: 30 day, Stop date: 06/28/16 9:00:00 CDTNotes: (Same As: Catapres) Coreg 12.5 mg, 1 Inactive [facility] tab, Route: 2016 Medical PO, Drug Center form: TAB, BID, Dosing Weight 78.636, kg, Start date: 05/29/16 17:00:00 CDT, Duration: 30 day, Stop date: 06/28/16 9:00:00 CDTNotes: Give with food. (Same As: Coreg) amLODIPine 10 mg 10 mg=1 tab, Active [facility] oral tablet PO, Daily, # 2016 Medical 90 tab, 3 Center Refill(s) amLODIPine 10 mg 10 mg=1 tab, Inactive [facility] oral tablet PO, Daily, # 2016 Medical 90 tab, 3 Center Refill(s) amLODIPine 10 mg 5 mg, PO, Inactive [facility] oral tablet Daily, # 90 2016 Medical tab, 0 Center Refill(s) Nitroglycerin 0.4 mg, 1 Inactive [facility] tab, Route: 2016 [facility], Drug Center form: TAB, Q5Min, Dosing Weight 78.636, kg, PRN Chest Pain, Start date: 05/29/16 9:02:00 CDT, Duration: 3 doses or times, Stop date: 05/29/16 17:00:00 CDTNotes: (Same as:OscarquReina hernandeztat) "Do Not Crush" Sublingual tablet Sodium Chloride 750 mL, Rate: Inactive [facility] 0.154 MEQ/ML 75 ml/hr, 2016 Medical Injectable Infuse over: Center Solution 10 hr, Route: IV, Dosing Weight 78.636 kg, Total Volume: 750, Start date: 05/29/16 9:02:00 CDT, Duration: 10 hr, Stop date: 05/29/16 19:01:00 CDT 24 HR Metformin 500 mg=1 tab, Active [facility] hydrochloride PO, 2016 Medical 500 MG Extended BID-Meals, # Center Release Tablet 60 tab, 1 Refill(s) 12 HR Clonidine 0.1 mg=1 tab, Active [place] Hydrochloride PO, BID, # 60 2016 Medical 0.1 MG Extended tab, 0 Center Release Tablet Refill(s) Amlodipine 5 mg, PO, Inactive [facility] Daily, 0 2016 Medical Refill(s) Center meloxicam 15 mg 15 mg=1 tab, Active [facility] oral tablet PO, Daily, # 2016 Medical 30 tab, 0 Center Refill(s) sodium chloride 1,000 mL, Inactive [facility] 0.9% 1000 ml INJ Rate: 100 2016 Medical 1,000 mL ml/hr, Infuse [place] over: 10 hr, Route: IVPB, Dosing Weight 78.636 kg, Total Volume: 1,000, Start date: 05/29/16 5:54:00 CDT, Duration: 30 day, Stop date: 06/28/16 5:53:00 CDT Keflex 500 mg 500 mg, 1 PO Active [facility] Reddy oral capsule cap, PO, Q8H, 2012 Medical 9 cap, Center Substitution Allowed [place] 5/325 oral 1 tab, PO, PO [facility] tablet Q4H, PRN, 2012 Medical tab, Pain, Center Substitution Allowed, Maintenance, TAB magnesium 4 gm, 100 mL, IVPB Active [facility] 01/20[facility] sulfate Route: IVPB, 2012 Medical Drug form: [place] INJ, ONCE, Dosing Weight 81.818, kg, Total dose=4 gm, Start date: 01/20/13 9:40:00, Stop date: 01/20/13 9:40:00 magnesium 2 gm, 50 mL, IVPB No Longer [facility] 01/20[facility] sulfate Route: IVPB, Active 2012 Medical Drug form: [place] INJ, ONCE, Dosing Weight 81.818, kg, Total dose=2 gm, Start date: 01/20/13 9:34:00, Duration: 1 doses or times, Stop date: 01/20/13 9:34:00 clopidogrel 75 mg, 1 tab, PO No Longer Gautam [facility] Route: PO, Active 2012 Medical Drug form: [place] TAB, Daily, Dosing Weight 81.818, kg, Start date: 01/20/13 9:00:00, Duration: 30 day, Stop date: 02/18/13 9:00:00 citalopram 10 mg, 1 tab, PO No Longer Gautam [facility] Route: PO, Active 2012 Medical Drug form: [place] TAB, Daily, Dosing Weight 81.818, kg, Start date: 01/20/13 9:00:00, Duration: 30 day, Stop date: 02/18/13 9:00:00 aspirin 81 mg 81 mg, 1 tab, PO No Longer Gautam [facility]dy tablet, enteric Route: PO, Active 2012 Medical coated Drug form: [place] ECTAB, Daily, Dosing Weight 81.818, kg, Start date: 01/20/13 9:00:00, Duration: 30 day, Stop date: 02/18/13 9:00:00 pravastatin 20 mg, 1 tab, PO No Longer Gautam [facility] Route: PO, Active 2012 Medical Drug form: [place] TAB, Daily, Dosing Weight 81.818, kg, Start date: 01/20/13 9:00:00, Duration: 30 day, Stop date: 02/18/13 9:00:00 Protonix 40 mg, 1 tab, PO No Longer Gautam [facility] Route: PO, Active 2012 Medical Drug form: [place] ECTAB, Daily, Dosing Weight 81.818, kg, Start date: 01/20/13 9:00:00, Duration: 30 day, Stop date: 02/18/13 9:00:00 lisinopril 40 mg, 2 tab, PO No Longer Gautam [facility] Route: PO, Active 2012 Medical Drug form: [place] TAB, Daily, Dosing Weight 81.818, kg, Start date: 01/20/13 9:00:00, Duration: 30 day, Stop date: 02/18/13 9:00:00 Saline Flush 5 ml, Route: IVP No Longer Gautam [facility] 0.9% IVP, Drug Active 2012 Medical Form: INJ, Center Dosing Weight 81.818, kg, Q12H, Start date: 01/19/13 21:00:00, Duration: 30 day, Stop date: 02/18/13 9:00:00 Bannister 5/325 oral 1 tab, Route: PO No Longer Gautam [facility] tablet PO, Drug Active 2012 Medical Form: TAB, Center Dosing Weight 81.818, kg, Q4H, PRN Pain, Start date: 01/19/13 18:24:00, Duration: 30 day, Stop date: 02/18/13 18:23:00 Tylenol 650 mg, 2 PO No Longer Gautam [facility] tab, Route: Active 2012 Medical PO, Drug Center form: TAB, Q4H, Dosing Weight 81.818, kg, PRN Pain, Start date: 01/19/13 18:16:00, Duration: 30 day, Stop date: 02/18/13 18:15:00 cyclobenzaprine 5 mg, 0.5 PO No Longer Gautam [facility] tab, Route: Active 2012 Medical PO, [...] 1 gm, Route: IVPB No Longer Gautam [facility] IVPB, Drug Active 2012 Medical form: [place] PDR/INJ, Q8H, Dosing Weight 81.818, kg, Start date: 01/19/13 17:00:00, Duration: 3 doses or times, Stop date: 01/20/13 9:00:00 glimepiride 4 mg, 1 tab, PO No Longer Gautam [facility] Route: PO, Active 2012 Medical Drug form: [place] TAB, BID, Dosing Weight 81.818, kg, Start date: 01/19/13 17:00:00, Duration: 30 day, Stop date: 02/18/13 9:00:00 gabapentin 100 100 mg, 1 PO No Longer Gautam [facility] mg oral capsule cap, Route: Active 2012 Medical PO, Drug Center form: CAP, Q8H, Dosing Weight 81.818, kg, Start date: 01/19/13 16:00:00, Duration: 30 day, Stop date: 02/18/13 8:00:00 magnesium 2 gm, 50 mL, IVPB No Longer Gautam [place] sulfate 2 gm in Route: IVPB, Active 2012 Medical Water 50 ml Drug form: [place] INJ, ONCE, Dosing Weight 81.818, kg, Priority: [...] 40 mg, 1 tab, PO Active Gautam [facility]dy oral tablet PO, Daily, 2012 Medical tab, Center Substitution Allowed, TAB NovoLog FlexPen Per Sliding SUB-Q Active Reddy Scale, SUB-Q, 2012 Medical Before Center Breakfast, Substitution Allowed, INJ cyclobenzaprine 5 mg, 1 tab, PO Active Gaut[facility] [place] 5 mg oral tablet PO, QPM, 2012 Medical Substitution Center Allowed, TAB aspirin 81 mg 81 mg, 1 tab, PO Active Gautam 01/19[facility] tablet, enteric PO, Daily, 0 2012 Medical coated tab, [place] Substitution Allowed, ECTAB gabapentin 100 100 mg, 1 PO Active [facility] 01/19[facility] mg oral capsule cap, PO, Q8H, 2012 Medical Substitution Center Allowed, CAP glimepiride 4 mg 4 mg, 1 tab, PO Active Gautam 01/19[facility] oral tablet PO, BID, 30 2012 Medical tab, Center Substitution Allowed, TAB warfarin 5 mg 5 mg, 1 tab, PO No Longer [facility] oral tablet PO, Daily, 30 Active 2012 Medical tab, [place] Substitution Allowed, TAB pravastatin 20 20 mg, 1 tab, PO Active Gautam 01/19[facility] [place] mg oral tablet PO, Daily, 30 2012 Medical tab, [place] Substitution Allowed, TAB clopidogrel 75 75 mg, 1 tab, PO Active [facility] 01/19[facility] [place] mg oral tablet PO, Daily, 30 2012 Medical tab, [place] Substitution Allowed, TAB citalopram 10 mg 10 mg, 1 tab, PO Active [facility] 01/19[facility] oral tablet PO, Daily, 30 2012 Medical tab, [place] Substitution Allowed, TAB Protonix 40 mg 40 mg, 1 tab, PO Active [facility] 01/19[facility] oral enteric PO, Daily, 30 2012 Medical coated tablet tab, [place] Substitution Allowed, ECTAB Coreg 12.5 mg 12.5 mg, 1 PO Active [facility] 01/19[facility] oral tablet tab, PO, BID, 2012 Medical 180 tab, [place] Substitution Allowed, TAB Saline Flush 5 ml, Route: IVP No Longer Gautam [facility] 0.9% IVP, Drug Active 2012 Medical Form: INJ, [place] Dosing Weight 81.818, kg, PRN, PRN Line Flush, Start date: 01/19/13 6:11:00, Duration: 30 day, Stop date: 02/18/13 6:10:00 warfarin 4 mg, 2 tab, PO No Longer [facility] Route: PO, Active 2011 Medical Drug form: Center TAB, Q5PM, Dosing Weight 86.364, kg, Start date: 07/31/12 17:00:00, Duration: 1 doses or times, Stop date: 07/31/12 17:00:00 warfarin 4 mg, 2 tab, PO No Longer [facility] Route: PO, Active 2011 Medical Drug [...] Medical 30 tab, Center Substitution Allowed, TAB [place] 10/325 1 tab, PO, PO Active [facility] oral tablet BID, PRN, 60 2011 Medical tab, Pain, Center Substitution Allowed, Maintenance, TAB warfarin 2 mg 4 mg, 2 tab, PO Active [facility] oral tablet PO, Q5PM, 2011 Medical Goal INR 2- Center 2.5. Please check INR on Friday. Results to PCP, 30 tab, Substitution Allowed, TABGoal INR 2- 2.5. Please check INR on Friday. Results to PCP Protonix 40 mg 40 mg, 1 tab, PO Active [facility] oral enteric PO, Before 2011 Medical [...] insulin glargine 20 unit, 0.2 [facility] [place] [facility] units/mL mL, SUB-Q, 2011 Medical subcutaneous Daily, 1 mL, Center solution Substitution Allowed, SOLN gabapentin 100 100 mg, 1 PO Active [facility] mg oral capsule cap, PO, Q8H, 2011 [...] mg 12.5 mg, 1 PO Active [facility] oral tablet tab, PO, 2011 Medical Q12H, 60 tab, Center Substitution Allowed, TAB aspirin 81 mg 81 mg, 1 tab, PO Active [facility] tablet, enteric PO, Daily, 2011 Medical coated tab, Center Substitution Allowed, ECTAB aspirin 81 mg 81 mg, 1 tab, PO No Longer [facility] tablet, enteric Route: PO, Active Mario Alberto 2011 Medical coated Drug form: Center ECTAB, Daily, Start date: 07/30/12 8:00:00, Duration: 30 day, Stop date: 08/28/12 8:00:00 aspirin 325 mg 325 mg, 1 PO No Longer Steen [facility] tablet, enteric tab, Route: Active Mario Alberto 2011 Medical coated PO, Drug Center form: ECTAB, ONCE, Start date: 07/29/12 22:30:00, Stop date: 07/29/12 22:30:00 warfarin 5 mg, 1 tab, PO No Longer Steen [facility] Route: PO, Active Mario Alberto 2011 Medical Drug form: Center TAB, ONCE, Dosing Weight 86.364, kg, Priority: NOW, Start date: 07/29/12 18:48:00, Stop date: 07/29/12 18:48:00 Flexeril 5 mg, 0.5 PO No Longer [facility] tab, Route: Active 2011 Medical PO, Drug Center form: TAB, QPM, Dosing Weight 86.364, kg, Start date: 07/29/12 17:00:00, Duration: 30 day, Stop date: 08/27/12 17:00:00 pravastatin 40 mg, 2 tab, PO No Longer [facility] Route: PO, Active 2011 Medical Drug form: Center TAB, QPM, Dosing Weight 86.364, kg, Start date: 07/27/12 17:00:00, Duration: 30 day, Stop date: 08/25/12 17:00:00 Coumadin 7.5 mg, 1 PO No Longer [facility] tab, Route: Active 2011 Medical PO, Drug Center form: TAB, Q5PM, Dosing Weight 86.364, kg, Start date: 07/26/12 17:00:00, Duration: 1 doses or times, Stop date: 07/26/12 17:00:00 Coumadin 7.5 mg, 1 PO No Longer Israel [facility] tab, Route: Active 2011 Medical PO, Drug Center form: TAB, ONCE, Dosing Weight 86.364, kg, Start date: 07/25/12 17:45:00, Stop date: 07/25/12 17:45:00 acetaminophen 325 mg, 1 PO No Longer [place] [facility] tab, Route: Active 2011 Medical PO, Drug Center form: TAB, BID, Dosing Weight 86.364, kg, Start date: 07/25/12 7:00:00, Duration: 30 day, Stop date: 08/23/12 12:00:00 warfarin 7.5 mg, 1 PO No Longer [facility] 07/24[facility] tab, Route: Active 2011 Medical PO, Drug Center form: TAB, Q5PM, Dosing Weight 86.364, kg, Start date: 07/24/12 17:00:00, Duration: 1 doses or times, Stop date: 07/24/12 17:00:00 warfarin 7.5 mg, 1 PO No Longer Winifred 07/23[facility] tab, Route: Active 2011 Medical PO, Drug Center form: TAB, Q5PM, Dosing Weight 86.364, kg, Start date: 07/23/12 17:00:00, Duration: 1 doses or times, Stop date: 07/23/12 17:00:00 warfarin 7.5 mg, 1 PO No Longer Winifred [facility] tab, Route: Active 2011 Medical PO, Drug Center form: TAB, ONCE, Dosing Weight 86.364, kg, Start date: 07/22/12 17:24:00, Stop date: 07/22/12 17:24:00 Dextrose 50% 25 gm, 50 mL, IVP No Longer Winifred [facility] Syringe Route: IVP, Active 2011 Medical Drug Form: [place] INJ, Dosing Weight 86.364, kg, PRN, PRN Blood Glucose Results, Start date: 07/22/12 13:47:00, Duration: 30 day, Stop date: 08/21/12 13:46:00 glucagon 1 mg, Route: IM No Longer Winifred [facility] IM, Drug Active 2011 Medical form: [place] PDR/INJ, PRN, Dosing Weight 86.364, kg, PRN Blood Glucose Results, Start date: 07/22/12 13:47:00, Duration: 30 day, Stop date: 08/21/12 13:46:00 Insulin regular 4 unit, 0.04 SUB-Q No Longer Winifred [facility] mL, Route: Active 2011 Medical SUB-Q, Drug Center form: SOLN, Bedtime, Dosing Weight 86.364, kg, PRN Blood Glucose Results, Start date: 07/22/12 13:47:00, Duration: 30 day, Stop date: 08/21/12 13:46:00 pneumococcal 0.5 ml, IM No Longer SYSTEM [facility] 23-valent Route: IM, Active 2011 Medical vaccine Drug Form: [place], INJ, Start H OPID date: [place] 07/22/12 9:00:00, Stop date: 07/22/12 9:00:00 lisinopril 10 mg, 1 tab, PO No Longer Winifred [facility] Route: PO, Active 2011 Medical Drug form: [place] TAB, Daily, Dosing Weight 67, kg, Start date: 07/22/12 9:00:00, Duration: 30 day, Stop date: 08/20/12 9:00:00 insulin glargine 20 unit, 0.2 SUB-Q No Longer [facility] 07/22[facility] mL, Route: Active 2011 Medical SUB-Q, Drug Center form: INJ, Daily, Dosing Weight 67, kg, Start date: 07/22/12 9:00:00, Duration: 30 day, Stop date: 08/20/12 9:00:00 clopidogrel 75 mg, 1 tab, PO No Longer Iwnifred [facility] Route: PO, Active 2011 Medical Drug form: [place] TAB, Daily, Dosing Weight 67, kg, Start date: 07/22/12 9:00:00, Duration: 30 day, Stop date: 08/20/12 9:00:00 citalopram 10 mg, 1 tab, PO No Longer Win[facility] Route: PO, Active 2011 Medical Drug form: Center TAB, Daily, Dosing Weight 67, kg, Start date: 07/22/12 9:00:00, Duration: 30 day, Stop date: 08/20/12 9:00:00 aspirin 325 mg 325 mg, 1 PO No Longer [facility] tablet tab, Route: Active 2011 Medical PO, Drug Center form: TAB, Daily, Dosing Weight 67, kg, Start date: 07/22/12 9:00:00, Duration: 30 day, Stop date: 08/20/12 9:00:00 Coreg 12.5 mg, 1 PO No Longer Winifred [facility] tab, Route: Active 2011 Medical PO, Drug Center form: TAB, Q12H, Dosing Weight 67, kg, Start date: 07/21/12 21:00:00, Stop date: 08/20/12 9:00:00 magnesium oxide 400 mg, 1 PO No Longer Win[facility]red [facility] tab, Route: Active 2011 Medical PO, Drug Center form: TAB, TID, Dosing Weight 67, kg, Start date: 07/21/12 17:00:00, Duration: 30 day, Stop date: 08/20/12 13:00:00 docusate 100 mg, 1 PO No Longer Win[facility]red [facility] cap, Route: Active 2011 Medical PO, Drug Center form: CAP, BID, Dosing Weight 67, kg, Start date: 07/21/12 17:00:00, Duration: 30 day, Stop date: 08/20/12 9:00:00 Coumadin 7.5 mg, PO No Longer Dhah [facility] Route: PO, Active 2011 Medical Drug form: Center TAB, Q5PM, Dosing Weight 67, kg, Start date: 07/21/12 17:00:00, Duration: 30 day, Stop date: 08/19/12 17:00:00 atorvastatin 80 mg, 1 tab, PO No Longer [facility] Route: PO, Active 2011 Medical Drug form: Center TAB, Bedtime, Dosing Weight 67, kg, Start date: 07/21/12 17:00:00, Duration: 30 day, Stop date: 08/19/12 21:00:00 magnesium oxide 400 mg, 1 PO No Longer Mike-Amanda [place] 500 mg oral tab, Route: Active 2011 Medical tablet PO, Drug Center Form: TAB, Dosing Weight 67, kg, TID, Start date: 07/21/12 17:00:00, Duration: 30 day, Stop date: 08/20/12 13:00:00 Protonix 40 mg, 1 tab, PO No Longer Win[facility]red [facility] Route: PO, Active 2011 Medical Drug form: Center ECTAB, Before Dinner, Dosing Weight 67, kg, Start date: 07/21/12 16:30:00, Duration: 30 day, Stop date: 08/19/12 16:30:00 Lantus 100 20 unit, 0.2 SUB-Q Active Mike-Amanda [facility] units/mL mL, SUB-Q, 2011 Medical subcutaneous Daily, 1 [place] solution vial, Substitution Allowed, SOLN magnesium oxide 500 mg, PO, PO Active Mike-Amanda [place] 500 mg oral TID, 90 tab, 2011 Medical tablet Substitution Center Allowed, TAB Neurontin 100 mg 100 mg, 1 PO Active Mike-Amanda [facility] oral capsule cap, PO, Q8H, 2011 Medical 90 cap, Center Substitution Allowed, CAP Coumadin 7.5 mg 7.5 mg, 1 PO Active Mike-Amanda [facility] oral tablet tab, PO, 2011 Medical Q5PM, 31 tab, Center Substitution Allowed, TAB Protonix 40 mg 40 mg, 1 tab, PO Active Mike-Amanda [facility] oral enteric PO, Before 2011 Medical coated tablet Dinner, 30 Center tab, Substitution Allowed, ECTAB lisinopril 10 mg 10 mg, 1 tab, PO Active Mike-Amanda [place] oral tablet PO, Daily, 2011 Medical tab, Center Substitution Allowed, TAB clopidogrel 75 75 mg, 1 tab, PO Active Mike-Amanda 07/21/ [place] mg oral tablet PO, Daily, 2011 Medical tab, Center Substitution Allowed, TAB citalopram 10 mg 10 mg, 1 tab, PO Active Mike-Amanda /25/ [facility] oral tablet PO, Daily, 2011 Medical tab, Center Substitution Allowed, TAB Coreg 3.125 mg 3.125 mg, 1 [facility] tab, PO, 2011 Medical Q12H, 60 tab, Center Substitution Allowed, TAB atorvastatin 80 80 mg, 1 tab, [facility] mg oral tablet PO, QPM, 30 2011 Medical tab, Center Substitution Allowed, TAB aspirin 325 mg 325 mg, 1 [facility] tablet tab, PO, 2011 Medical Daily, 30 Center tab, Substitution Allowed, TAB gabapentin 100 mg, 1 PO No Longer Win[facility]red [place] cap, Route: Active 2011 Medical PO, Drug Center form: CAP, Q8H, Dosing Weight 67, kg, Start date: 07/21/12 16:00:00, Duration: 30 day, Stop date: 08/20/12 8:00:00 Neurontin 100 mg 100 mg, 1 PO No Longer Allam [facility] oral capsule cap, Route: Active 2011 Medical PO, Drug Center form: CAP, Q8H, Dosing Weight 67, kg, Start date: 07/21/12 16:00:00, Duration: 30 day, Stop date: 08/20/12 8:00:00 nitroglycerin 0.4 mg, 1 SL No Longer Winifred [place] 0.4 mg tab, Route: Active 2011 Medical sublingual SL, Drug Center tablet form: TAB, Q5Min, Dosing Weight 67, kg, PRN Chest Pain, Start date: 07/21/12 14:58:00, Duration: 30 day, Stop date: 08/20/12 14:57:00 acetaminophen 650 mg, 2 PO No Longer Winifred [facility] tab, Route: Active 2011 Medical PO, Drug Center form: TAB, Q6H, Dosing Weight 67, kg, PRN Pain, Start date: 07/21/12 14:57:00, Duration: 30 day, Stop date: 08/20/12 14:56:00 [place] 10/325 1 tab, Route: PO No Longer Winifred [facility] oral tablet PO, Drug Active 2011 Medical Form: TAB, Center Dosing Weight 67, kg, Q4H, PRN Pain, Start date: 07/21/12 14:56:00, Duration: 30 day, Stop date: 08/20/12 14:55:00 Coumadin 7.5 mg 7.5 mg, 1 PO No Longer Mike-Amanda [facility] oral tablet tab, PO, Active 2011 Medical Q5PM, 31 tab, Center Substitution Allowed, TAB magnesium 2 gm, 50 mL, IVPB No Longer Mike-Amanda [facility] sulfate Route: IVPB, Active 2011 Medical Drug form: [place] INJ, ONCE, Dosing Weight 67, kg, Total dose=2 gm, Start date: 07/21/12 7:32:00, Duration: 1 doses or times, Stop date: 07/21/12 7:32:00 ibuprofen 400 mg 400 mg, 1 PO No Longer [facility] oral tablet tab, Route: Active 2011 Medical PO, Drug Center form: TAB, Q4H, Dosing Weight 67, kg, PRN Pain, Start date: 07/21/12 1:32:00, Duration: 30 day, Stop date: 08/20/12 1:31:00 warfarin 5 mg, 1 tab, PO No Longer [facility] [facility] Route: PO, Active 2011 Medical Drug form: [place] TAB, Q5PM, Dosing Weight 67, kg, Start date: 07/20/12 21:00:00, Duration: 1 doses or times, Stop date: 07/20/12 21:00:00 metoprolol 5 5 mg, 5 mL, IVP No Longer Shayne [facility] mg/5 ml INJ Route: IVP, Active 2011 Medical Drug form: Center INJ, ONCE, Dosing Weight 67, kg, PRN Other -See Comment, Start date: 07/20/12 12:00:00, Stop date: 08/19/12 11:59:00 magnesium oxide 800 mg, 2 PO No Longer Cody [facility] tab, Route: Active 2011 Medical PO, Drug Center form: TAB, ONCE, Dosing Weight 67, kg, Start date: 07/20/12 11:38:00, Stop date: 07/20/12 11:38:00 Coumadin 5 mg, 1 tab, PO No Longer Siddiqui [place] Route: PO, Active 2011 Medical Drug form: [place] TAB, Q5PM, Dosing Weight 67, kg, Start date: 07/19/12 17:00:00, Duration: 1 doses or times, Stop date: 07/19/12 17:00:00 Lantus 20 unit, 0.2 SUB-Q No Longer [facility] mL, Route: Active 2011 Medical SUB-Q, Drug Center form: INJ, Daily, Start date: 07/19/12 9:00:00, Duration: 30 day, Stop date: 08/17/12 9:00:00 magnesium 2 gm, 50 mL, IVPB No Longer Walker [facility] sulfate Route: IVPB, Active 2011 Medical Drug form: [place] INJ, Q2H, Dosing Weight 67, kg, Total [...] gm, 50 mL, IVPB No Longer Mike-Amanda [facility] sulfate Route: IVPB, Active 2011 Medical Drug form: [place] INJ, Q2H, Dosing Weight 67, kg, Start date: 07/18/12 8:00:00, Duration: 3 doses or times, Stop date: 07/18/12 12:00:00, For Mg=1.0 - 1.4 mg/dLFor Mg=1.0 - 1.4 mg/dL Saline Flush 5 ml, Route: IVP No Longer Ila [place] 0.9% IVP, Drug Active 2011 Medical Form: INJ, Center Dosing Weight 67, kg, Q12H, Start date: 07/17/12 21:00:00, Duration: 30 day, Stop date: 08/16/12 9:00:00 Coreg 6.25 mg, PO No Longer Mike-Amanda Reddy Route: PO, Active 2011 Medical ONCE, Dosing [...] Drug form: Center TAB, QPM, Dosing Weight 82.273, kg, Start date: 07/16/12 17:00:00, Duration: 30 day, Stop date: 08/14/12 17:00:00 Protonix 40 mg, 1 tab, PO No Longer Valentin [facility] Route: PO, Active 2011 Medical Drug form: Center ECTAB, Before Dinner, Dosing Weight 82.273, kg, Start date: 07/16/12 16:30:00, Duration: 30 day, Stop date: 08/14/12 16:30:00 heparin 2,000 unit, 2 IV No Longer Valentin [facility] mL, Route: Active 2011 Medical IV, Drug Center form: INJ, PRN, PRN Abnormal Lab Result, Start date: 07/16/12 11:34:00, Duration: 30 day, Stop date: 08/15/12 11:33:00 heparin 4,000 unit, 4 IV No Longer [facility] mL, Route: Active 2011 Medical IV, Drug Center form: INJ, PRN, PRN Abnormal Lab Result, Start date: 07/16/12 11:32:00, Duration: 30 day, Stop date: 08/15/12 11:31:00 Heparin - one 4,000 unit, 4 IV No Longer [facility] time bolus for mL, Route: Active 2011 Medical ACS IV, Drug Center form: INJ, ONCE, Dosing Weight 82.273, kg, Priority: STAT, Start date: 07/16/12 11:09:00, Stop date: 07/16/12 11:09:00 Heparin - 25,000 unit, IV No Longer [facility] infusion (ACS 500 mL, Rate: Active 2011 Medical Protocol) Start at 13 Center heparin 25,000 units/kg/hr - units in D5W 500 adjust per mL Premix 25,000 ACS protocol, unit Dosing Weight 82.273, kg, Route: IV, Total Volume: 500 ml, Start date: 07/16/12 11:09:00, Duration: 30 day, Stop date: 08/15/12 11:08:00, Replace Every: 24 hr lisinopril 10 mg, 1 tab, PO No Longer [facility] Route: PO, Active 2011 Medical Drug form: [place] TAB, Daily, Dosing Weight 82.273, kg, Start date: 07/16/12 9:00:00, Duration: 30 day, Stop date: 08/14/12 9:00:00 insulin glargine 20 unit, SUB-Q No Longer [place] Route: SUB-Q, Active 2011 Medical Drug form: [place] INJ, Daily, Dosing Weight 82.273, kg, Start date: 07/16/12 9:00:00, Duration: 30 day, Stop date: 08/14/12 9:00:00 clopidogrel 75 mg, 1 tab, PO No Longer [facility] Route: PO, Active 2011 Medical Drug form: [place] TAB, Daily, Dosing Weight 82.273, kg, Start date: 07/16/12 9:00:00, Duration: 30 day, Stop date: 08/14/12 9:00:00 citalopram 10 mg, 1 tab, PO No Longer [facility] Route: PO, Active 2011 Medical Drug form: [place] TAB, Daily, Dosing Weight 82.273, kg, Start date: 07/16/12 9:00:00, Duration: 30 day, Stop date: 08/14/12 9:00:00 aspirin 325 mg 325 mg, 1 PO No Longer [facility] tablet tab, Route: Active 2011 Medical PO, Drug Center form: TAB, Daily, Dosing Weight 82.273, kg, Start date: 07/16/12 9:00:00, Duration: 30 day, Stop date: 08/14/12 9:00:00 docusate 100 mg, 1 PO No Longer [facility] cap, Route: Active 2011 Medical PO, Drug Center form: CAP, BID, Dosing Weight 82.273, kg, Start date: 07/16/12 9:00:00, Duration: 30 day, Stop date: 08/14/12 17:00:00 magnesium 2 gm, 50 mL, IVPB No Longer [facility] sulfate Route: IVPB, Active 2011 Medical Drug form: [place] INJ, Q2H, Dosing Weight 82.273, kg, Total dose=4 gm, Start date: 07/16/12 8:00:00, Duration: 1 doses or times, Stop date: 07/16/12 10:00:00 magnesium 2 gm, 50 mL, IVPB No Longer [place] sulfate Route: IVPB, Active 2011 Medical Drug form: Center INJ, ONCE, Dosing Weight 82.273, kg, Total dose=2 gm, Start date: 07/16/12 5:50:00, Duration: 1 doses or times, Stop date: 07/16/12 5:50:00 Coreg 12.5 mg, 1 PO No Longer [place] tab, Route: Active 2011 Medical PO, Drug Center form: TAB, Q12H, Dosing Weight 82.273, kg, Start date: 07/15/12 21:00:00, Stop date: 08/14/12 9:00:00 heparin 5,000 unit, 1 SUB-Q No Longer [facility] [place] mL, Route: Active 2011 Medical SUB-Q, Drug [...] 0.4 mg, 1 SL No Longer [facility] [place] 0.4 mg tab, Route: Active 2011 Medical sublingual SL, Drug Center tablet form: TAB, Q5Min, Dosing Weight 82.273, kg, PRN Chest Pain, Start date: 07/15/12 18:15:00, Duration: 30 day, Stop date: 08/14/12 18:14:00 insulin aspart 4 unit, 0.04 SUB-Q No Longer [facility] [place] mL, Route: Active 2011 Medical SUB-Q, Drug Center form: SOLN, Bedtime, Dosing Weight 82.273, kg, PRN Blood Glucose Results, Start date: 07/15/12 18:15:00, Duration: 30 day, Stop date: 08/14/12 18:14:00 glucagon 1 mg, Route: IM No Longer [place] [facility] IM, Drug Active 2011 Medical form: Center PDR/INJ, PRN, Dosing Weight 82.273, kg, PRN Blood Glucose Results, Start date: 07/15/12 18:15:00, Duration: 30 day, Stop date: 08/14/12 18:14:00 Dextrose 50% 12.5 gm, 25 IVP No Longer [place] [facility] Syringe mL, Route: Active 2011 Medical IVP, Drug Center Form: INJ, Dosing Weight 82.273, kg, PRN, PRN Blood Glucose Results, Start date: 07/15/12 18:15:00, Duration: 30 day, Stop date: 08/14/12 18:14:00 [place] 10/325 1 tab, Route: PO No Longer [place] [facility] oral tablet PO, Drug Active 2011 Medical Form: TAB, [place] Dosing Weight 82.273, kg, Q4H, PRN as needed for pain, Start date: 07/15/12 18:13:00, Duration: 30 day, Stop date: 08/14/12 18:12:00 acetaminophen 650 mg, 2 PO No Longer [place] [facility] tab, Route: Active 2011 Medical PO, Drug Center form: TAB, Q4H, Dosing Weight 82.273, kg, PRN Pain/Fever, Start date: 07/15/12 18:09:00, Duration: 30 day, Stop date: 08/14/12 18:08:00 atorvastatin 80 mg, 1 tab, PO No Longer [facility] Route: PO, Active 2011 Medical Drug form: Center TAB, QPM, Dosing Weight 88.182, kg, Start date: 07/15/12 17:00:00, Duration: 30 day, Stop date: 08/13/12 17:00:00 Lopressor 5 mg, 5 mL, IV No Longer [place] [facility] Route: IV, Active 2011 Medical Drug form: [place] INJ, ONCE, Start date: 07/15/12 16:52:00, Stop date: 07/15/12 16:52:00 metoprolol 5 5 mg, Route: IVP No Longer [place] [facility] mg/5 ml INJ IVP, Drug Active 2011 Medical form: INJ, Center Q2MIN, Dosing Weight 82.273, kg, PRN Other -See Comment, Start date: 07/15/12 16:41:00, Duration: 30 day, Stop date: 08/14/12 16:40:00 NS (Bolus) IV 500 mL, Rate: IV No Longer [facility] 500 mL 500 ml/hr, Active 2011 Medical Infuse over: Center 1 hr, Route: IV, kg, Total Volume: 500, Priority: STAT, Start date: 07/15/12 16:41:00, Duration: 1 doses or times, Stop date: 07/15/12 17:40:00, Bolus DoseBolus Dose Protonix 40 mg, 1 tab, PO No Longer [facility] Route: PO, Active 2011 Medical Drug form: Center ECTAB, Before Dinner, Dosing Weight 88.182, kg, Start date: 07/15/12 16:30:00, Duration: 30 day, Stop date: 08/13/12 16:30:00 Lopressor 5 mg, 5 mL, IV No Longer [facility] Route: IV, Active 2011 Medical Drug form: Center INJ, ONCE, Start date: 07/15/12 16:26:00, Stop date: 07/15/12 16:26:00 [place] 10/325 1 tab, PO, PO On Hold [facility] oral tablet Q4H, PRN, 90 2011 Medical tab, Pain Center Score 6-10, Substitution Allowed, Maintenance, TAB Protonix 40 mg 40 mg, 1 tab, PO On Hold [facility] oral enteric PO, Before 2011 Medical coated tablet Dinner, 30 Center tab, Substitution Allowed, ECTAB lisinopril 10 mg 10 mg, 1 tab, PO On Hold [facility] oral tablet PO, Daily, 30 2011 Medical tab, Center Substitution Allowed, TAB insulin glargine 15 unit, 0.15 SUB-Q On Hold [facility] 100 units/mL mL, SUB-Q, 2011 Medical subcutaneous Daily, 1 mL, Center solution Substitution Allowed, SOLN heparin 5000 See Active [place] [facility] [place] units/mL Instructions, 2011 Medical injectable SUB-Q Q8H, 1 Center solution syr, Substitution Allowed, SOLNSUB-Q Q8H clopidogrel 75 75 mg, 1 tab, PO On Hold [place] mg oral tablet PO, Daily, 2011 Medical tab, Center Substitution Allowed, TAB citalopram 10 mg 10 mg, 1 tab, PO On Hold [place] oral tablet PO, Daily, 2011 Medical tab, Center Substitution Allowed, TAB Coreg 3.125 mg 3.125 mg, 1 PO On Hold [place] oral tablet tab, PO, 2011 Medical Q12H, 60 tab, Center Substitution Allowed, TAB atorvastatin 80 80 mg, 1 tab, PO On Hold [place] mg oral tablet PO, QPM, 2011 Medical tab, Center Substitution Allowed, TAB aspirin 325 mg 325 mg, 1 PO On Hold [place] tablet tab, PO, 2011 Medical Daily, 30 Center tab, Substitution Allowed, TAB senna 8.6 mg 8.6 mg, 1 PO No Longer [facility] oral tablet tab, Route: Active 2011 Medical PO, Drug Center Form: TAB, Dosing Weight 88.182, kg, QNoon, Start date: 07/15/12 12:00:00, Duration: 30 day, Stop date: 08/13/12 12:00:00 Dextrose 50% 25 gm, 50 mL, IVP No Longer [facility] [place] Syringe Route: IVP, Active 2011 Medical Drug Form: Center INJ, Dosing Weight 88.182, kg, PRN, PRN Blood Glucose Results, Start date: 07/15/12 9:11:00, Duration: 30 day, Stop date: 08/14/12 9:10:00 Dextrose 50% 12.5 gm, 25 IVP No Longer [facility] 07/[facility] Syringe mL, Route: Active 2011 Medical IVP, Drug Center Form: INJ, Dosing Weight 88.182, kg, PRN, PRN Blood Glucose Results, Start date: 07/15/12 9:10:00, Duration: 30 day, Stop date: 08/14/12 9:09:00 influenza virus 0.5 ml, IM No Longer [facility] [place] vaccine, Route: IM, Active 2011 Medical inactivated Drug Form: Berta,M INJ, Start H OPID date: [place] 07/15/12 9:00:00, Stop date: 07/15/12 9:00:00 lisinopril 10 mg, 1 tab, PO No Longer [facility] Route: PO, Active 2011 Medical Drug form: Center TAB, Daily, Dosing Weight 88.182, kg, Start date: 07/15/12 9:00:00, Duration: 30 day, Stop date: 08/13/12 9:00:00 insulin glargine 15 unit, 0.15 SUB-Q No Longer [facility] [place] mL, Route: Active 2011 Medical SUB-Q, Drug Center form: INJ, Daily, Dosing Weight 88.182, kg, Start date: 07/15/12 9:00:00, Duration: 30 day, Stop date: 08/13/12 9:00:00 clopidogrel 75 mg, 1 tab, PO No Longer [facility] Route: PO, Active 2011 Medical Drug form: Center TAB, Daily, Dosing Weight 88.182, kg, Start date: 07/15/12 9:00:00, Duration: 30 day, Stop date: 08/13/12 9:00:00 citalopram 10 mg, 1 tab, PO No Longer [facility] Route: PO, Active 2011 Medical Drug form: Center TAB, Daily, Dosing Weight 88.182, kg, Start date: 07/15/12 9:00:00, Duration: 30 day, Stop date: 08/13/12 9:00:00 aspirin 325 mg 325 mg, 1 PO No Longer [facility] tablet tab, Route: Active 2011 Medical PO, Drug Center form: TAB, Daily, Dosing Weight 88.182, kg, Start date: 07/15/12 9:00:00, Duration: 30 day, Stop date: 08/13/12 9:00:00 atorvastatin 10 10 mg, 1 tab, PO No Longer [place] mg oral tablet PO, Daily, 30 Active 2011 Medical tab, Center Substitution Allowed, TAB atenolol 50 mg 50 mg, 1 tab, PO No Longer [place] oral tablet PO, Daily, 30 Active 2011 Medical tab, Center Substitution Allowed glimepiride 4 mg Substitution No Longer [place] oral tablet Allowed Active 2011 [facility] hydrochlorothiaz 1 tab, PO, PO No Longer [place] juno-losartan 25 Daily, 30 Active 2011 Medical mg-100 mg oral tab, Center tablet Substitution Allowed, Maintenance, TAB aspirin 81 mg 81 mg, 1 tab, PO No Longer [place] tablet, chewable PO, Daily, Active 2011 Medical tab, Center Substitution Allowed, CHEWTAB amLODipine 5 mg 5 mg, 1 tab, PO No Longer [place] oral tablet PO, Daily, 30 Active 2011 Medical tab, Center Substitution Allowed, TAB lisinopril 30 mg Daily, No Longer [place] oral tablet Substitution Active 2011 Medical Allowed Center NovoLog Mix Substitution No Longer [place] 70/30 FlexPen Allowed Active 2011 [facility] heparin 5000 5,000 unit, 1 SUB-Q No Longer [facility] [place] units/mL mL, Route: Active 2011 Medical injectable SUB-Q, Drug Center solution form: INJ, Q8H, Dosing Weight 88.182, kg, Start date: 07/15/12 0:00:00, Duration: 30 day, Stop date: 08/13/12 16:00:00 Insulin regular 1 unit, 0.01 SUB-Q No Longer [facility] mL, Route: Active 2011 Medical SUB-Q, Drug Center form: SOLN, TID-Before Meals, Dosing Weight 82.273, kg, PRN Blood Glucose Results, Start date: 07/14/12 23:06:00, Duration: 30 day, Stop date: 08/13/12 23:05:00 docusate 100 mg, 1 PO No Longer [facility] [place] cap, Route: Active 2011 Medical PO, Drug Center form: CAP, Q12H, Dosing Weight 88.182, kg, Start date: 07/14/12 21:00:00, Duration: 30 day, Stop date: 08/13/12 9:00:00 Coreg 3.125 mg, 1 PO No Longer [place] [place] tab, Route: Active 2011 Medical PO, Drug [...] date: 08/13/12 17:49:00 bisacodyl 10 mg, 1 MO No Longer [facility] [place] supp, Route: Active 2011 Medical MO, Drug Center form: SUPP, Daily, Dosing Weight 88.182, kg, PRN Constipation, Start date: 07/14/12 17:50:00, Duration: 30 day, Stop date: 08/13/12 17:49:00 acetaminophen 650 mg, 2 PO No Longer [facility] [place] tab, Route: Active 2011 Medical PO, Drug Center form: TAB, Q6H, Dosing Weight 88.182, kg, PRN Pain, Start date: 07/14/12 17:49:00, Duration: 30 day, Stop date: 08/13/12 17:48:00 [place] 10/325 1 tab, Route: PO No Longer [...] regular 7 unit, 0.07 SUB-Q No Longer [place] human mL, SUB-Q, Active 2011 Medical recombinant 100 PRN, PRN, 1 Center units/mL mL, Abnormal injectable Lab Result, solution Substitution Allowed, SOLN insulin regular 5 unit, 0.05 SUB-Q No Longer [place] human mL, SUB-Q, Active 2011 Medical recombinant 100 PRN, PRN, 1 Center units/mL mL, Abnormal injectable Lab Result, solution Substitution Allowed, SOLN insulin regular 3 unit, 0.03 [facility] [place] [facility], [facility], Active 2011 Medical recombinant 100 PRN, PRN, 1 Center units/mL mL, Abnormal injectable Lab Result, solution Substitution Allowed, SOLN insulin glargine 15 unit, 0.15 SUB-[facility] [place] 100 units/mL mL, SUB-Q, Active 2011 Medical subcutaneous Daily, 1 mL, Center solution Substitution Allowed, SOLN heparin 5000 See [facility] Long[facility] [place] units/mL Instructions, Active 2011 Medical injectable 5000 SUB-Q Center solution Q8H, 1 vial, Substitution Allowed, [id number] SUB-Q Q8H Coreg 3.125 mg 3.125 mg, 1 PO [facility] [place] [facility] tablet tab, PO, Active 2011 Medical Q12H, 60 tab, [place] Substitution Allowed, TAB lisinopril 10 mg 10 mg, 1 tab, [facility] [place] oral tablet PO, Daily, 30 Active 2011 Medical tab, [place] Substitution Allowed, TAB citalopram 10 mg 10 mg, 1 tab, PO No Longer [place] oral tablet PO, Daily, 30 Active 2011 Medical tab, Center Substitution Allowed, TAB atorvastatin 80 80 mg, 1 tab, [facility] [place] mg oral tablet PO, QPM, 30 2011 Medical tab, Center Substitution Allowed, TAB aspirin 325 mg 325 mg, 1 PO [facility] [place] tablet tab, PO, Active 2011 Medical Daily, 30 Center tab, Substitution Allowed, TAB magnesium 2 gm, 50 mL, IVPB No Longer [place] sulfate Route: IVPB, Active 2011 Medical Drug form: Center INJ, Q2H, Dosing Weight 88.182, kg, Start date: 07/14/12 14:00:00, Duration: 2 doses or times, Stop date: 07/14/12 16:00:00, For Mg=1.5 - 1.7 mg/dLFor Mg=1.5 - 1.7 mg/dL metoprolol 5 5 mg, 5 mL, IV No Longer [facility]a [facility] mg/5 ml INJ Route: IV, Active 2011 Medical Drug form: [place] INJ, ONCE, Dosing Weight 88.182, kg, Start date: 07/14/12 6:26:00, Stop date: 07/14/12 6:26:00 Protonix 40 mg, 1 tab, PO No Longer [place] Route: PO, Active 2011 Medical Drug form: [place] ECTAB, Before Dinner, Dosing Weight 88.182, kg, Start date: 07/13/12 16:30:00, Duration: 30 day, Stop date: 08/11/12 16:30:00 lisinopril 10 mg, 1 tab, PO No Longer [facility] [place] Route: PO, Active 2011 Medical Drug form: [place] TAB, Daily, Dosing Weight 88.182, kg, Start date: 07/13/12 9:00:00, Duration: 30 day, Stop date: 08/11/12 9:00:00 magnesium 2 gm, 50 mL, IVPB No Longer [facility] [place] sulfate Route: IVPB, Active 2011 Medical Drug form: [place] INJ, ONCE, Dosing Weight 88.182, kg, Start date: 07/13/12 7:19:00, Duration: 1 doses or times, Stop date: 07/13/12 7:19:00, For Mg=1.8 - 2 mg/dLFor Mg=1.8 - 2 mg/dL calcium 1,000 mg, 10 IVPB No Longer [facility] [place] gluconate + mL, Route: Active 2011 Medical Sodium Chloride IVPB, ONCE, [place] 0.9% IV 50 mL Dosing Weight 88.182, kg, Start date: 07/13/12 7:18:00, Duration: 1 doses or times, Stop date: 07/13/12 7:18:00, For Ionized Ca=1 - 1.03 mmol/L or Corrected Ca=8 - 8.5mg/dLFor Ionized Ca=1 - 1.03 mmol/L or Corrected Ca=8 - 8.5mg/dL metoprolol 5 5 mg, 5 mL, IV No Longer [place] mg/5 ml INJ Route: IV, Active 2011 Medical Drug form: [place] INJ, ONCE, Dosing Weight 88.182, kg, Start [...] mg, 1 cap, PO No Longer [facility] [place] Route: PO, Active 2011 Medical Drug form: [place] CAP, TID, Dosing Weight 88.182, kg, PRN Itching, Start date: 07/12/12 11:50:00, Duration: 30 day, Stop date: 08/11/12 11:49:00 Coreg 3.125 mg, 1 PO No Longer [facility] [place] tab, Route: Active 2011 [facility] PO, Drug Center form: TAB, Q12H, Dosing Weight 88.182, kg, Start date: 07/12/12 10:30:00, Duration: 30 day, Stop date: 08/11/12 6:00:00 Colace 50 mg 50 mg, 1 cap, PO No Longer [facility] oral capsule Route: PO, Active 2011 Medical Drug form: [place] CAP, BID, Dosing Weight 88.182, kg, PRN [...] 2,000 mg, 20 IVPB No Longer [facility]-Amanda [place] gluconate + mL, Route: Active 2011 [facility] Sodium Chloride IVPB, ONCE, [place] 0.9% IV 80 mL Dosing Weight 88.182, kg, Start date: 07/12/12 7:18:00, Stop date: 07/12/12 7:18:00 Chloraseptic 1 spray, MUCOUS No Longer [place] 1.4% spray Route: MUCOUS MEM Active 2011 Medical MEM, Q4H, [place] Drug form: SPRY PRN Sore Throat, Start date: 07/12/12 1:37:00, Stop date: 08/11/12 1:36:00 heparin 5000 5,000 unit, 1 SUB-Q No Longer [place] units/mL mL, Route: Active 2011 [facility] injectable SUB-Q, Drug Center solution form: INJ, Q8H, Dosing Weight 88.182, kg, Start date: 07/11/12 16:00:00, Duration: 30 day, Stop date: 08/10/12 8:00:00 lactulose 10 gm, 15 ml, PO No Longer [facility] [place] Route: PO, Active 2011 Medical Drug Form: [place] SYRP, Dosing Weight 88.182, kg, Daily, PRN Constipation, Start date: 07/11/12 12:02:00, Duration: 30 day, Stop date: 08/10/12 12:01:00 normal saline 250 mL, Rate: IV No Longer [facility]-A[facility]a [place] 0.9% IV 250 mL 250 ml/hr, Active 2011 Medical Infuse over: Center 1 hr, Route: IV, kg, Total Volume: 250, Start date: 07/11/12 11:59:00, Duration: 1 doses or times, Stop date: 07/11/12 12:58:00 normal saline 1,000 mL, IV No Longer [facility]-A[facility]a [place] 0.9% IV 1,000 mL Rate: 120 Active 2011 Medical ml/hr, Infuse [place] over: 8.3 hr, Route: IV, kg, Total Volume: 1,000, Start date: 07/11/12 9:28:00, Stop date: 08/10/12 9:27:00 atorvastatin 80 mg, 1 tab, PO No Longer [place] Route: PO, Active 2011 Medical Drug form: [place] TAB, QPM, Dosing Weight 88.182, kg, Start date: 07/10/12 17:00:00, Duration: 30 day, Stop date: 08/08/12 17:00:00 Protonix 40 mg, Route: IVP No Longer [place] IVP, Drug Active 2011 Medical form: INJ, Center Before Dinner, Dosing Weight 88.182, kg, Patient is NPO, Start date: 07/10/12 16:30:00, Duration: 30 day, Stop date: 08/08/12 16:30:00 ondansetron 4 mg, 2 mL, IVP No Longer [place] Route: IVP, Active 2011 Medical Drug form: [place] INJ, Q4H, Dosing Weight 88.182, kg, PRN Nausea & Vomiting, Start date: 07/10/12 13:21:00, Duration: 30 day, Stop date: 08/09/12 13:20:00 Integrilin 75 mg 75 mg, 100 IV No Longer [place] in 100 ml premix mL, Rate: Active 2011 Medical IV 75 mg Titrate, [place] Dosing Weight 88.182, kg, Route: IV, Total Volume: 100 mL, Start date: 07/10/12 10:43:00, Duration: 2 day, Stop date: 07/12/12 10:42:00, Replace Every: 24 hr citalopram 10 mg, 1 tab, PO No Longer [facility] [place] Route: PO, Active 2011 Medical Drug form: [place] TAB, Daily, Dosing Weight 88.182, kg, Start date: 07/10/12 9:00:00, Duration: 30 day, Stop date: 08/08/12 9:00:00 aspirin 325 mg 325 mg, 1 PO No Longer [facility] tablet tab, Route: Active 2011 Medical PO, Drug Center form: TAB, Daily, Dosing Weight 88.182, kg, Start date: 07/10/12 9:00:00, Duration: 30 day, Stop date: 08/08/12 6:00:00 atenolol 100 mg 100 mg, 1 PO No Longer S[facility]iqui [facility] oral tablet tab, Route: Active 2011 Medical PO, Drug Center form: TAB, Daily, Dosing Weight 88.182, kg, Start date: 07/10/12 9:00:00, Duration: 30 day, Stop date: 08/08/12 9:00:00 insulin glargine 15 unit, 0.15 SUB-Q No Longer Mike-Amanda [facility] mL, Route: Active 2011 Medical SUB-Q, Drug Center form: INJ, Daily, Dosing Weight 88.182, kg, Start date: 07/10/12 9:00:00, Duration: 30 day, Stop date: 08/08/12 9:00:00 clopidogrel 75 mg, 1 tab, PO No Longer [facility] Route: PO, Active 2011 Medical Drug form: Center TAB, Daily, Dosing Weight 88.182, kg, Start date: 07/10/12 9:00:00, Duration: 30 day, Stop date: 08/08/12 6:00:00 lisinopril 10 mg, 1 tab, PO No Longer Mike-Amanda [facility] Route: PO, Active 2011 Medical Drug form: Center TAB, Daily, Dosing Weight 88.182, kg, Start date: 07/10/12 9:00:00, Duration: 30 day, Stop date: 08/08/12 9:00:00 magnesium 2 gm, 50 mL, IVPB No Longer Mike-Amanda [facility] sulfate Route: IVPB, Active 2011 Medical Drug form: Center INJ, Q2H, Dosing Weight 88.182, kg, Start date: 07/10/12 8:00:00, Duration: 3 doses or times, Stop date: 07/10/12 12:00:00, For Mg=1.0 - 1.4 mg/dLFor Mg=1.0 - 1.4 mg/dL morphine Sulfate 2 mg, Route: IVP No Longer [place] [facility] IVP, ONCE, Active 2011 Medical Dosing Weight Center 88.182, kg, Start date: 07/10/12 7:44:00, Stop date: 07/10/12 7:44:00 morphine Sulfate 2 mg, 0.5 mL, IVP No Longer [place] [facility] Route: IVP, Active 2011 Medical Drug form: Center INJ, Q3H, Dosing Weight 88.182, kg, PRN Pain, Start date: 07/10/12 7:33:00, Stop date: 08/09/12 7:32:00 niCARdipine 40 40 mg, 200 IV [facility] Longer [facility] mg in NS 200 ml mL, Rate: Active 2011 Medical IV 40 mg Titrate, Center Dosing Weight 88.182, kg, Route: IV, Total Volume: 200 mL, Duration: 30 day, Stop date: 08/09/12 7:14:00, Replace Every: 24 hr Cardene 40 mg in 40 mg, 200 IV No Longer Shayne [facility] NS 200 ml IV 40 mL, Rate: Active 2011 Medical mg Titrate, Center Dosing Weight 88.182, kg, Route: IV, Total Volume: 200 mL, Duration: 30 day, Stop date: 08/09/12 7:07:00, Replace Every: 24 hr Dextrose 50% 12.5 gm, 25 IVP No Longer Mike-Amanda [facility] Syringe mL, Route: Active 2011 Medical IVP, Drug Center Form: INJ, Dosing Weight 88.182, kg, PRN, PRN Blood Glucose Results, Start date: 07/10/12 6:32:00, Duration: 30 day, Stop date: 08/09/12 6:31:00 glucagon 1 mg, Route: IM No Longer Mike-Amanda [facility] IM, Drug Active 2011 Medical form: Center PDR/INJ, PRN, Dosing Weight 88.182, kg, PRN Blood Glucose Results, Start date: 07/10/12 6:32:00, Duration: 30 day, Stop date: 08/09/12 6:31:00 amLODipine 5 mg, 1 tab, PO No Longer Siddiqui [facility] Route: PO, Active 2011 Medical Drug form: [place] TAB, Daily, Dosing Weight 88.182, kg, Start date: 07/10/12 6:14:00, Duration: 30 day, Stop date: 08/08/12 9:00:00 lisinopril 10 mg, 1 tab, PO No Longer [place] [facility] Route: PO, Active 2011 Medical Drug form: [place] TAB, ONCE, Dosing Weight 88.182, kg, Start date: 07/10/12 4:10:00, Stop date: 07/10/12 4:10:00 Procardia XL 60 mg, 1 tab, PO No Longer Mike-Amanda [facility] Route: PO, Active 2011 Medical Drug form: [place] ERTAB, ONCE, Dosing Weight 88.182, kg, Start date: 07/10/12 4:02:00, Stop date: 07/10/12 4:02:00 morphine Sulfate 2 mg, 0.5 mL, IVP No Longer Mike-Amanda [facility] Route: IVP, Active 2011 Medical Drug form: [place] INJ, ONCE, Dosing Weight 88.182, kg, Start date: 07/10/12 2:35:00, Stop date: 07/10/12 2:35:00 metoprolol 25 mg, 1 tab, PO No Longer Mike-Amanda [facility] tartrate Route: PO, Active 2011 Medical Drug form: [place] TAB, Q6H, Dosing Weight 88.182, kg, Start date: 07/10/12 0:00:00, Duration: 30 day, Stop date: 08/08/12 18:00:00 morphine Sulfate 1 mg, Route: IVP No Longer [place] [facility] IVP, ONCE, Active 2011 Medical Dosing Weight [place] 88.182, kg, Start date: 07/09/12 23:59:00, Stop date: 07/09/12 23:59:00 atenolol 50 mg 50 mg, 1 tab, PO No Longer Mike-Amanda [facility] oral tablet Route: PO, Active 2011 Medical Drug form: [place] TAB, ONCE, Dosing Weight 88.182, kg, Start date: 07/09/12 21:03:00, Stop date: 07/09/12 21:03:00 lisinopril 10 mg, 1 tab, PO No Longer Mike-Amanda [facility] Route: PO, Active 2011 Medical Drug form: Center TAB, ONCE, Dosing Weight 88.182, kg, Start date: 07/09/12 21:02:00, Stop date: 07/09/12 21:02:00 Saline Flush 5 ml, Route: IVP No Longer [facility] 0.9% IVP, Drug Active 2011 Medical Form: INJ, Center Dosing Weight 88.182, kg, Q12H, Start date: 07/09/12 21:00:00, Duration: 30 day, Stop date: 08/08/12 9:00:00 famotidine 20 mg, 1 tab, PO No Longer [place] Route: PO, Active 2011 Medical Drug form: Center TAB, Q12H, Dosing Weight 88.182, kg, Start date: 07/09/12 21:00:00, Duration: 30 day, Stop date: 08/08/12 9:00:00 nitroglycerin SL 0.4 mg, 1 SL No Longer Mike-Amanda [facility] Tab tab, Route: Active 2011 Medical SL, Drug Center form: TAB, Q5Min, Dosing Weight 88.182, kg, PRN Chest Pain, Start date: 07/09/12 20:20:00, Duration: 3 doses or times, Stop date: Limited # of times Saline Flush 5 ml, Route: IVP No Longer [facility] 0.9% IVP, Drug Active 2011 Medical Form: INJ, Center Dosing Weight 88.182, kg, PRN, PRN Line Flush, Start date: 07/09/12 19:20:00, Duration: 30 day, Stop date: 08/08/12 19:19:00 nitroglycerin SL 0.4 mg, 1 SL No Longer [facility] Tab tab, Route: Active 2011 Medical SL, Drug Center form: TAB, Q5Min, Dosing Weight 88.182, kg, PRN Chest Pain, Start date: 07/09/12 19:20:00, Duration: 3 doses or times, Stop date: 08/09/12 0:00:00 aspirin 325 mg 325 mg, 4.01 PO No Longer [facility] tablet tab, Route: Active 2011 Medical PO, Drug Center form: [place], ONCE, Dosing Weight 88.182, kg, Start date: 07/09/12 19:20:00, Stop date: 07/09/12 19:20:00 acetaminophen 650 mg, 20.3 PO No Longer Fazakerly [facility] mL, Route: Active 2011 Medical PO, Drug Center form: LIQ, Q8H, Dosing Weight 88.182, kg, PRN Pain/Fever, Start date: 07/09/12 16:54:00, Duration: 30 day, Stop date: 08/08/12 16:53:00 labetalol 10 mg, 2 mL, IVP No Longer La [facility] Route: IVP, Active 2011 Medical Drug form: Center INJ, Q15Min, Dosing Weight 88.182, kg, PRN Hypertension, Start date: 07/09/12 16:21:00, Duration: 3 doses or times, Stop date: Limited # of times Dextrose 50% 25 gm, 50 mL, IVP No Longer Dawson [facility] Syringe Route: IVP, Active 2011 Medical Drug Form: Center INJ, Dosing Weight 88.182, kg, PRN, PRN Abnormal Lab Result, Start date: 07/08/12 21:55:00, Duration: 30 day, Stop date: 08/07/12 21:54:00 insulin regular 3 unit, 0.03 SUB-Q No Longer Dawson [facility] human mL, Route: Active 2011 Medical recombinant 100 SUB-Q, Drug Center units/mL form: SOLN, injectable PRN, Dosing solution Weight 88.182, kg, PRN Abnormal Lab Result, Start date: 07/08/12 21:55:00, Duration: 30 day, Stop date: 08/07/12 21:54:00 acetaminophen-ox 1 tab, Route: PO No Longer [facility]a [facility] ycodone 325 mg-5 PO, Drug Active 2011 Medical mg oral tablet Form: TAB, Center Q4H, PRN Pain Score 6-10, Start date: 07/08/12 21:03:00, Stop date: 08/07/12 21:02:00 Saline Flush 5 ml, Route: IVP No Longer [place] 0.9% IVP, Drug Active 2011 Medical Form: INJ, Center Dosing Weight 88.182, kg, Q12H, Start date: 07/07/12 21:00:00, Duration: 30 day, Stop date: 08/06/12 9:00:00 senna 8.6 mg, 1 PO No Longer [place] tab, Route: Active 2011 Medical PO, Drug Center Form: TAB, Dosing Weight 88.182, kg, Q12H, Start date: 07/07/12 21:00:00, Duration: 30 day, Stop date: 08/06/12 9:00:00 docusate sodium 100 mg, 1 PO No Longer [place] 100 mg oral cap, Route: Active 2011 Medical capsule PO, Drug Center form: CAP, Q12H, Dosing Weight 88.182, kg, Start date: 07/07/12 21:00:00, Duration: 30 day, Stop date: 08/06/12 9:00:00 cefazolin (SCIP) 1 gm, Route: IVPB No Longer [place] IVPB, Drug Active 2011 Medical form: Center PDR/INJ, ABXQ8H, Dosing Weight 88.182, kg, Start date: 07/07/12 20:30:00, Duration: 3 doses or times, Stop date: 07/08/12 12:30:00 Percocet 10/325 2 tab, Route: PO No Longer [place] oral tablet PO, Drug Active 2011 Medical Form: TAB, Center Dosing Weight 88.182, kg, Q4H, PRN Pain, Start date: 07/07/12 20:03:00, Duration: 30 day, Stop date: 08/06/12 20:02:00 atorvastatin 10 10 mg, 1 tab, PO No Longer [place] mg oral tablet PO, Daily, 30 Active 2011 Medical tab, Center Substitution Allowed, TAB amLODipine 5 mg, PO, PO No Longer Mike-Amanda [place] Daily, Active 2011 Medical Substitution Center Allowed cefazolin (SCIP) 1 gm, Route: IVPB No Longer Gloria [facility] IVPB, Drug Active 2011 Medical form: Center PDR/INJ, ABXQ8H, Dosing Weight 88.182, kg, Start date: 07/07/12 16:00:00, Duration: 3 doses or times, Stop date: 07/08/12 8:00:00 ondansetron 4 mg, 2 mL, IVP No Longer [facility] Route: IVP, Active 2011 Medical Drug form: [place] INJ, ONCE, Dosing Weight 88.182, kg, PRN Nausea & Vomiting, Start date: 07/07/12 13:36:00 labetalol 5 mg, Route: IVP No Longer [facility] IVP, Q5Min, Active 2011 Medical Dosing Weight Center 88.182, kg, PRN Elevated BP, Start date: 07/07/12 13:36:00, Duration: 5 doses or times, Stop date: Limited # of times hydrALAZINE 5 mg, 0.25 IVP No Longer [facility] 07/07[facility] mL, Route: Active 2011 Medical IVP, Drug Center form: INJ, Q5Min, Dosing Weight 88.182, kg, PRN Elevated BP, Start date: 07/07/12 13:36:00, Duration: 4 doses or times, Stop date: 07/08/12 0:00:00 flumazenil 0.2 mg, 2 mL, IVP No Longer [facility] 07/07[facility] Route: IVP, Active 2011 Medical Drug form: [place] INJ, PRN, Dosing Weight 88.182, kg, PRN Benzodiazepin e Reversal, Initial dose, Start date: 07/07/12 13:36:00, Duration: 30 day, Stop date: 08/06/12 13:35:00 naloxone 0.04 mg, 0.1 IVP No Longer [facility] 07/07[facility] mL, Route: Active 2011 Medical IVP, Drug Center form: INJ, Q2MIN, Dosing Weight 88.182, kg, PRN Narcotic Reversal, Start date: 07/07/12 13:36:00, Duration: 8 doses or times, Stop date: 07/08/12 0:00:00 hydromorphone 0.5 mg, [facility] [place] [facility]: IVP, Active 2011 Medical Q5Min, Dosing Center Weight 88.182, kg, PRN Pain Score 4-6, Start date: 07/07/12 13:36:00, Duration: 5 doses or times, Stop date: Limited # of times Saline Flush 5 ml, Route: IVP No Longer [place] 0.9% IVP, Drug Active 2011 Medical Form: INJ, Center Dosing Weight 88.182, kg, PRN, PRN Line Flush, Start date: 07/07/12 13:30:00, Duration: 30 day, Stop date: 08/06/12 13:29:00 ondansetron 4 mg, 2 mL, IVP No Longer [place] Route: IVP, Active 2011 Medical Drug form: Center INJ, Q8H, Dosing Weight 88.182, kg, PRN Nausea & Vomiting, Start date: 07/07/12 13:30:00, Duration: 30 day, Stop date: 08/06/12 13:29:00 tramadol 50 mg, 1 tab, PO No Longer Fazakerly [place] Route: PO, Active 2011 Medical Drug form: Center TAB, Q4H, Dosing Weight 88.182, kg, PRN Pain Score 1-3, Start date: 07/07/12 13:30:00, Duration: 30 day, Stop date: 08/06/12 13:29:00 morphine Sulfate 2 mg, 0.5 mL, IVP No Longer Fazakerly [facility] Route: IVP, Active 2011 Medical Drug form: Center INJ, Q1H, Dosing Weight 88.182, kg, PRN Pain Score 7-10, Start date: 07/07/12 13:30:00, Duration: 30 day, Stop date: 08/06/12 13:29:00 bisacodyl 10 mg, 1 MO No Longer [place] supp, Route: Active 2011 Medical MO, Drug Center form: SUPP, Daily, Dosing Weight 88.182, kg, PRN Constipation, Start date: 07/07/12 13:30:00, Duration: 30 day, Stop date: 08/06/12 13:29:00 acetaminophen-hy 2 tab, Route: PO No Longer [place]ki [place] drocodone 325 PO, Drug Active 2011 Medical mg-10 mg oral Form: TAB, Center tablet Dosing Weight 88.182, kg, Q4H, PRN Pain Score 7-10, Start date: 07/07/12 13:30:00, Duration: 30 day, Stop date: 08/06/12 13:29:00 acetaminophen 650 mg, 20.3 PO No Longer Fazakerly [place] mL, Route: Active 2011 Medical PO, Drug Center form: LIQ, Q4H, Dosing Weight 88.182, kg, PRN Pain/Fever, Start date: 07/07/12 13:30:00, Duration: 30 day, Stop date: 08/06/12 13:29:00 Sodium Chloride 1,000 mL, IV No Longer Danyell [place] 0.9% IV 1,000 mL Rate: 50 Active 2011 Medical ml/hr, Infuse Center over: 20 hr, Route: IV, kg, Total Volume: 1,000, Start date: 07/07/12 13:30:00, Duration: 30 day, Stop date: 08/06/12 13:29:00 cefazolin 2 gm, Route: IVPB No Longer [facility] IVPB, ONCE, Active 2011 Medical Dosing Weight Center 88.182, kg, Start date: 07/07/12 12:23:00, Duration: 1 doses or times, Stop date: 07/07/12 12:23:00 cefazolin 1 gm, Route: IVPB [facility] IVPB, ONCE, Active 2011 Medical Dosing Weight Center 88.182, kg, Start date: 07/07/12 8:26:00, Duration: 1 doses or times, Stop date: 07/07/12 8:26:00 cefazolin 1 gm, Route: IVPB No Longer Morgan [facility] IVPB, Drug Active 2011 Medical form: Center PDR/INJ, ONCALL, Start date: 07/07/12 7:00:00, Duration: 1 day, Stop date: 07/08/12 6:59:00 Celebrex 200 mg 400 mg, 2 PO No Longer [place] oral capsule cap, PO, Active 2011 Medical Daily, 30 Center cap, Substitution Allowed, CAP gabapentin 100 200 mg, 2 PO No Longer [facility] mg oral capsule cap, PO, TID, Active 2011 Medical 240 cap, Center Substitution Allowed atenolol 100 mg 100 mg, 1 PO No Longer Mike-Amanda [facility] oral tablet tab, PO, Active 2011 Medical Daily, 30 Center tab, Substitution Allowed citalopram 10 mg 10 mg, 1 tab, PO No Longer Mike-Amanda [facility] oral tablet PO, Daily, 30 Active 2011 Medical tab, Center Substitution Allowed, TAB glimepiride 4 mg 4 mg, 1 tab, PO No Longer [facility] oral tablet PO, BID, 30 2011 Medical tab, Center Substitution Allowed, TAB hydrochlorothiaz 1 tab, PO, PO No Longer [facility] juno-losartan 25 Daily, 30 Active 2011 Medical mg-100 mg oral tab, Center tablet Substitution Allowed, Maintenance, TAB lisinopril 30 mg 30 mg, 1 tab, PO No Longer Mike-Amanda [facility] oral tablet PO, Daily, 30 Active 2011 Medical tab, Center Substitution Allowed, TAB aspirin 81 mg 81 mg, 1 tab, PO No Longer [facility] tablet, enteric PO, Daily, 0 2011 Medical coated tab, Center Substitution Allowed, ECTAB NovoLog Mix Substitution No Longer [facility] 70/30 Allowed [facility] 2011 [facility] Allergies, Adverse Reactions, Alerts Substance Category Reaction Severity Reaction Status Date Comments Source type Reported statins Assertion Drug Active [facility] All[facility] Immunizations Immunization Date Site Status Last Updated Comments Source Given pneumococcal Right completed [facility] 23-valent 8 deltoid for Adv vaccine Heart Failure,[facility] pneumococcal Right completed [facility] 23-valent 8 deltoid for Adv vaccine Heart Failure,[facility] pneumococcal Right completed [facility] 23-valent 8 deltoid for Adv vaccine Heart Failure,[facility] influenza virus Left completed [facility] vaccine, 8 deltoid for Adv inactivated Heart Failure,[facility] influenza virus Left completed [facility] vaccine, 8 deltoid for Adv inactivated [facility] [place] influenza virus Left [facility], 8 deltoid for Adv inactivated Heart Failure,[facility] pneumococcal Not Given Yennifer [facility] 23-valent 2 [facility] vaccine Center,[facility] [place] influenza virus Left completed Derrick [facility] vaccine, 2 Deltoid [facility] inactivated [place], [facility] Failure,[facility] [place] influenza virus completed Derrick [facility] vaccine, 2 [facility] inactivated [place], ZACH [place] Results Order Name Results Value Reference Date Interpretation Comments Source Range CHEM PANEL B/C Ratio 37 6 - 25 10/29 [facility] CHEM PANEL Globulin 4.0 g/dL 2.7 - 4.2 10/29 [facility] CHEM PANEL A/G Ratio 0.7 0.7 - 1.6 10/29 2018 [facility] CHEM PANEL AGAP 12.7 meq/L 10.0 - 10/29 [facility] 20.0 [facility] CHEM PANEL eGFR 26 10/29 Result Comment: The eGFR is calculated using the CKD-EPI formula. In most young, healthy individuals the eGFR will be >90 mL/ min/1.73m2. The eGFR declines with age. An eGFR of 60-89 may be normal in [facility] mL/min/1.7 some populations, particularly the elderly, for whom the CKD-EPI formula has not been extensively validated. Use of the eGFR is not recommended in the following populations: [address] Individuals with unstable creatinine concentrations, including [...] the estimated BMI. CHEM PANEL Bili Total 0.4 mg/dL 0.2 - 1.3 10/29 [facility] CHEM PANEL ALT 13 unit/L 0 - 65 10/29 [facility]2018 [facility] CHEM PANEL AST 19 unit/L 0 - 37 10/29 [facility]2018 [facility] CHEM PANEL Alk Phos 73 unit/L 39 - 136 10/29 [facility] CHEM PANEL Potassium 5.7 meq/L 3.5 - 5.1 10/29 [facility] Lvl [facility] CHEM PANEL Chloride Lvl 101 meq/L 95 - 109 10/[address] CHEM PANEL CO2 26 meq/L 24 - 32 10/[address] CHEM PANEL Calcium Lvl 9.1 mg/dL 8.5 - 10.5 10/[address] CHEM PANEL Total 6.8 g/dL 6.4 - 8.4 10/29 [facility] Protein [facility] CHEM PANEL Albumin Lvl 2.8 g/dL 3.5 - 5.0 10/29 [facility]2018 [facility] CHEM PANEL Glucose Lvl 139 mg/dL 70 - 99 10/[address] CHEM PANEL BUN 68 mg/dL 7 - 22 10/[address] CHEM PANEL Creatinine 1.82 mg/dL 0.50 - 10/29 [facility] Lvl 1.40 [facility] CHEM PANEL Sodium Lvl 134 meq/L 135 - 145 10/[address] CHEM PANEL S-2-Kpclwkoj 15.3 mg/L 1.0 - 2.3 10/29 [facility] b [facility] CHEM PANEL LDH 332 unit/L 98 - 192 10/29 [facility]2018 [facility] HEMATOLOGY MCHC 30.4 g/dL 32.0 - 10/29 [facility] 36.0 [facility] HEMATOLOGY MPV 10.5 fL 7.4 - 10.4 10/29 [facility]2018 [facility] HEMATOLOGY RDW 18.3 % 11.5 - 10/29 [facility] 14.5 [facility] HEMATOLOGY Platelet 51 K/CMM 133 - 450 10/29 [facility]2018 [facility] HEMATOLOGY Hct 23.0 % 36.0 - 10/29 [facility] 48.0 [facility] HEMATOLOGY Hgb 7.0 g/dL 12.0 - 10/29 Result [facility] 16. Comment: [facility] Result(s) called to Elizabeth Coles at 10/29/2018 11:09 by ci. Read back OK. HEMATOLOGY MCV 109.1 fL 80.0 - 10/29 [facility] 98.0 [facility] HEMATOLOGY MCH 33.2 pg 27.0 - 10/29 [facility] [place] 31.0 [facility] HEMATOLOGY RBC 2.11 M/CMM 4.20 - 10/29 [place] 5.40 /2018 [facility] HEMATOLOGY WBC 37.1 K/CMM 3.7 - 10.4 10/29 [facility]2018 [facility] HEMATOLOGY Polychrom slight 10/29 [facility]2018 [facility] HEMATOLOGY Smudge slight 10/[address] HEMATOLOGY Atypical 0.0 % <=0.0 % 10/29 [facility] Lymphs /2018 [facility] HEMATOLOGY Eosinophils 1.0 % 0.0 - 4.0 10/29 [facility] HEMATOLOGY Plt Morph Normal 10/29 [facility] (10/29/18 10:38 AM) [place] HEMATOLOGY Anisocyte 1+ None Seen 10/29 [facility] *ABN* [place] (10/29/18 10:38 AM) HEMATOLOGY Lymphocytes 94.0 % 20.0 - 10/29 [facility] 40.0 [facility] HEMATOLOGY Monocytes 1.0 % 2.0 - 12.0 10/[address] HEMATOLOGY Neutrophils 1.5 K/CMM 1.5 - 8.1 10/29 [facility] # [facility] HEMATOLOGY Eosinophils 0.4 K/CMM 0.0 - 0.5 10/29 [facility] HEMATOLOGY Bands 0.0 % 0.0 - 11.0 10/29 [facility] [address] [place] [address] HEMATOLOGY Segs 4.0 % 45.0 - 10/29 [facility] 75.0 [facility] HEMATOLOGY Monocytes # 0.4 K/CMM 0.0 - 0.8 10/29 [facility] [address] [place] [address] HEMATOLOGY Lymphocytes 34.9 K/CMM 1.0 - 5.5 10/29 [facility] # [facility] IMMUNOLOGY IgM Lvl 20.0 mg/dL 60.0 - 10/29 [place] 263.0 [facility] IMMUNOLOGY IgG Lvl 1080 mg/dL 694 - 1618 10/29 [facility]2018 [facility] IMMUNOLOGY IgA Lvl 130.0 68.0 - 10/29 [facility] mg/dL 378.0 [facility] IMMUNOLOGY EBONY Ser A 10/29 [facility] Pattern constricti /2018 Medical on is Center present in the IgG alida with a correspond ing constricti on in the kappa light chain alida. The polyclonal gamma globulin background is preserved in all lanes. 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 Preservati on of diffusely staining immunoreac tivity indicates that the production of polyclonal immunoglob ulins is not suppressed . Recommend repeating in 3-6 months for clarificat ion. .Relevant medical informatio n in the EMR was reviewed.I have personally reviewed the test results and concur with the resident's interpreta tion.CPT 16835-OY IMMUNOLOGY Gamma Glob 1.08 g/dL 0.71 - 10/29 [facility] 1.57 [facility] IMMUNOLOGY Tot Prot 6.8 g/dL 6.4 - 8.4 10/29 [facility] (SPE) [facility] IMMUNOLOGY Albumin % 48.9 REL % 55.8 - 10/29 [place] 66.1 /2018 [facility] IMMUNOLOGY Gamma % 15.9 REL % 11.1 - 10/29 [facility] 18.7 [facility] IMMUNOLOGY Beta % 10.5 REL % 7.8 - 13.7 10/29 [facility] IMMUNOLOGY Beta Glob 0.71 g/dL 0.50 - 10/29 [place] 1.15 [facility] IMMUNOLOGY Albumin 3.33 g/dL 3.57 - 10/29 [facility] (SPE) 5.55 [facility] IMMUNOLOGY Alpha 1 % 8.9 REL % 2.8 - 4.9 10/29 [facility] IMMUNOLOGY Alpha 2 % 15.8 REL % 7.0 - 11.9 10/29 [facility] IMMUNOLOGY Alpha 2 Glob 1.07 g/dL 0.45 - 10/29 [place] 1.00 [facility] IMMUNOLOGY Alpha 1 Glob 0.61 g/dL 0.18 - 10/29 [place] 0.41 [facility] IMMUNOLOGY SPE Interp Capillary 10/29 [facility] electropho /2018 [facility] demonstrat es a distortion of the gamma distributi on curve. This requires further evaluation by serum and 24 hour urine immunofixa tion. As there is no definitive peak, quantifica tion is not possible.T otal protein level is within the reference range. Serum protein electropho resis also shows reduced albumin level and increase in the alpha-1 and alpha-2 globulin fractions. The electronic medical record has been reviewed for relevant history.I have personally reviewed the test results and concur with the resident's interpreta tion.CPT 19413-KZ IMMUNOLOGY Lambda Free 24.43 mg/L 5.70 - 10/29 [place] [facility]ains 26.30 /2018 [facility] IMMUNOLOGY Emlyn Free 533.00 3.30 - 10/29 [place] Light Chains mg/L 19.40 [facility] IMMUNOLOGY Emlyn/Lambda 21.82 0.26 - 10/29 [place] Free Light Ratio 1.65 Medical Chains Ratio Center PET CT PET CT Tumor EXAM: DE PET CT Skull Base to Mid Thigh 07/16 - [facility] Tumor imaging-skul /2018 - [facility] imaging-sku l-midthigh This report was dictated by a In Flight Refueling Manager/Fellow. I have personally reviewed the images [...] Hgb A1C 5.8 % <=5.6 % 05/01 [facility] CHEMISTRY /2018 [facility] Chest 1view Chest 1view EXAM: XR CHEST 1 VIEW 05/01 - [facility] DX DX /2018 - [facility] Center DATE: 05/01/2018 9:09 AM CDT [...] eGFR of 60-89 may be normal in [facility] mL/min/1.7 some populations, particularly the elderly, for whom the CKD-EPI formula has not been extensively validated. Use of the eGFR is not recommended in the following populations: [address] Individuals with unstable creatinine concentrations, including [...] Lvl 96 meq/L 95 - 109 05/[address] CHEM PANEL CO2 29 meq/L 24 - 32 05/[address] CHEM PANEL Sodium Lvl 136 meq/L 135 - 145 05/[address] CHEM PANEL Potassium 3.7 meq/L 3.5 - 5.1 05/[address] CHEM PANEL Creatinine 1.02 mg/dL 0.50 - 05/01 [facility] [address] [place] [address] CHEM PANEL BUN 56 mg/dL 7 - 22 05/[address] CHEM PANEL Glucose Lvl 209 mg/dL 70 - 99 05/[address] CHEM PANEL Calcium Lvl 9.8 mg/dL 8.5 - 10.5 05/[address] CHEM PANEL AGAP 14.7 meq/L 10.0 - 07 [facility] 20.0 [facility] CHEM PANEL Phosphorus 2.7 mg/dL 2.5 - 4.5 05/[address] CHEM PANEL Magnesium 1.8 mg/dL 1.8 - 2.4 05/[address] HEMATOLOGY Basophils 0.4 % 0.0 - 1.0 05/[address] HEMATOLOGY Segs-Bands # 0.7 K/CMM 1.5 - 8.1 05/[address] [place] [address] HEMATOLOGY Smudge Moderate None Seen 05/01 Medical *ABN* Center (05/01/18 4:09 AM) HEMATOLOGY RBC Morph Normal 05/01 [facility] (05/01/18 4:09 AM) [place] HEMATOLOGY Eosinophils 0.2 % 0.0 - 4.0 05/[address] HEMATOLOGY Plt Morph Normal 05/01 [facility] (05/01/18 4:09 AM) [place] HEMATOLOGY Segs 6.2 % 45.0 - 05/01 [place] 75.0 [facility] HEMATOLOGY Lymphocytes 10.6 K/CMM 1.0 - 5.5 05/01 [facility] # [facility] HEMATOLOGY Monocytes # 0.1 K/CMM 0.0 - 0.8 05/[address] HEMATOLOGY Lymphocytes 92.7 % 20.0 - 05/01 [facility] 40.0 [facility] HEMATOLOGY Monocytes 0.5 % 2.0 - 12.0 05/[address] HEMATOLOGY Platelet 71 K/CMM 133 - 450 05/[address] HEMATOLOGY MCHC 34.6 g/dL 32.0 - 07 [place] 36.0 [facility] HEMATOLOGY RDW 18.0 % 11.5 - 05/01 14.5 [facility] HEMATOLOGY WBC 11.5 K/CMM 3.7 - 10.4 05/[address] HEMATOLOGY RBC 2.83 M/CMM 4.20 - 05/01 5.40 [facility] HEMATOLOGY Hgb 9.6 g/dL 12.0 - 05/01 16.0 [facility] HEMATOLOGY Hct 27.7 % 36.0 - 07 [place] 48.0 [facility] HEMATOLOGY MPV 9.5 fL 7.4 - 10.4 05/[address] HEMATOLOGY MCV 97.7 fL 80.0 - 05/01 [facility] 98.0 [facility] HEMATOLOGY MCH 33.8 pg 27.0 - 05/01 [facility] 31.0 [facility] CHEM PANEL eGFR 49 04/30 Result Comment: The eGFR is calculated using the CKD-EPI formula. In most young, healthy individuals the eGFR will be >90 mL/ min/1.73m2. The eGFR declines with age. An eGFR of 60-89 may be normal in [facility] mL/min/1. some populations, particularly the elderly, for whom the CKD-EPI formula has not been extensively validated. Use of the eGFR is not recommended in the following populations: [address] Individuals with unstable creatinine concentrations, including [...] Lvl 96 meq/L 95 - 109 04/30 [facility]2017 [facility] CHEM PANEL CO2 30 meq/L 24 - 32 04/[address] CHEM PANEL Glucose Lvl 197 mg/dL 70 - 99 04/[address] CHEM PANEL Potassium 4.2 meq/L 3.5 - 5.1 04/30 [facility] CHEM PANEL Sodium Lvl 136 meq/L 135 - 145 04/[address] CHEM PANEL BUN 56 mg/dL 7 - 22 04/[address] CHEM PANEL Creatinine 1.07 mg/dL 0.50 - 04/30 [facility] 1.40 [facility] CHEM PANEL Calcium Lvl 9.7 mg/dL 8.5 - 10.5 04/[address] CHEM PANEL AGAP 14.2 meq/L 10.0 - 07 [facility] 20.0 [facility] CHEM PANEL Magnesium 1.9 mg/dL 1.8 - 2.4 04/30 [facility] [address] [place] [address] CHEM PANEL Phosphorus 2.4 mg/dL 2.5 - 4.5 04/[address] HEMATOLOGY Smudge Moderate None Seen 04/30 [facility] [address] [place], [place] [id number]* Center (04/30/18 4:19 AM) HEMATOLOGY Lymphocytes 12.0 K/CMM 1.0 - 5.5 04/30 [facility] HEMATOLOGY Basophils 0.5 % 0.0 - 1.0 04/[address] HEMATOLOGY Eosinophils 0.5 % 0.0 - 4.0 04/[address] HEMATOLOGY Segs-Bands # 1.0 K/CMM 1.5 - 8.1 04/30 [facility] HEMATOLOGY Eosinophils 0.1 K/CMM 0.0 - 0.5 04/30 [place] # /2017 [facility] HEMATOLOGY Monocytes # 0.1 K/CMM 0.0 - 0.8 04/30 [facility] HEMATOLOGY Basophils # 0.1 K/CMM 0.0 - 0.2 04/30 [facility] HEMATOLOGY RBC Morph Normal 04/30 [facility] (04/30/18 4:19 AM) [place] HEMATOLOGY Segs 7.8 % 45.0 - 04/30 75.0 [facility] HEMATOLOGY Monocytes 1.1 % 2.0 - 12.0 04/30 [facility] HEMATOLOGY Lymphocytes 90.1 % 20.0 - 04/30 40.0 [facility] HEMATOLOGY Plt Morph Normal 04/30 [facility] (04/30/18 4:19 AM) [place] HEMATOLOGY Platelet 66 K/CMM 133 - 450 04/30 [facility] HEMATOLOGY RDW 18.1 % 11.5 - 07 14.5 [facility] HEMATOLOGY MPV 9.4 fL 7.4 - 10.4 04/30 [facility] HEMATOLOGY WBC 13.3 K/CMM 3.7 - 10.4 04/30 [facility] HEMATOLOGY Hgb 9.7 g/dL 12.0 - 04/30 16.0 [facility] HEMATOLOGY RBC 2.96 M/CMM 4.20 - 04/30 5.40 [facility] HEMATOLOGY Hct 28.7 % 36.0 - 07 48.0 [facility] HEMATOLOGY MCV 97.1 fL 80.0 - 04/30 98.0 [facility] HEMATOLOGY MCH 32.7 pg 27.0 - 07 31.0 [facility] HEMATOLOGY MCHC 33.7 g/dL 32.0 - 07 36.0 [facility] BLOOD BANK ABO/Rh O NEG 04/29 [place] RESULTS /2017 [facility] BLOOD BANK Antibody Negative 04/29 [facility] RESULTS Scr [facility] (04/29/18 10:19 AM) [place] BLOOD BANK RBC product Product available 04/29 [facility] (04/29/18 9:21 AM) Center CHEM PANEL eGFR 48 04/29 Result Comment: The eGFR is calculated using the CKD-EPI formula. In most young, healthy individuals the eGFR will be >90 mL/ min/1.73m2. The eGFR declines with age. An eGFR of 60-89 may be normal in [facility] mL/min/1. some populations, particularly the elderly, for whom the CKD-EPI formula has not been extensively validated. Use of the eGFR is not recommended in the following populations: [address] Individuals with unstable creatinine concentrations, including [...] Lvl 9.8 mg/dL 8.5 - 10.5 04/29 [facility] [address] [place] [address] CHEM PANEL BUN 57 mg/dL 7 - 04/[address] CHEM PANEL Sodium Lvl 138 meq/L 135 - 145 04/[address] CHEM PANEL Creatinine 1.09 mg/dL 0.50 - 04/29 [facility] 1.40 [facility] CHEM PANEL Glucose Lvl 145 mg/dL 70 - 99 04/[address] CHEM PANEL CO2 31 meq/L 24 - 32 04/[address] CHEM PANEL Chloride Lvl 95 meq/L 95 - 109 04/[address] CHEM PANEL Potassium 3.7 meq/L 3.5 - 5.1 04/29 [facility] [address] [place] [address] CHEM PANEL AGAP 15.7 meq/L 10.0 - 04/29 [facility] 20.0 [facility] CHEM PANEL Phosphorus 3.0 mg/dL 2.5 - 4.5 04/[address] CHEM PANEL Magnesium 1.9 mg/dL 1.8 - 2.4 04/29 [facility] [address] [place] [address] HEMATOLOGY Macrocyte 1+ None Seen 04/29 [facility] *ABN* Center (04/29/18 1:53 AM) HEMATOLOGY Smudge See Note 1 None Seen 04/29 Result Comment: Medical (04/29/18 1:53 AM) [facility] HEMATOLOGY Lymphocytes 8.5 K/CMM 1.0 - 5.5 04/29 [facility] HEMATOLOGY Segs-Bands # 0.7 K/CMM 1.5 - 8.1 04/[address] HEMATOLOGY Eosinophils 0.2 K/CMM 0.0 - 0.5 04/29 [facility] HEMATOLOGY Monocytes # 0.0 K/CMM 0.0 - 0.8 04/29 2017 [facility] HEMATOLOGY Plt Morph Normal 04/29 Medical (04/29/18 1:53 AM) Center HEMATOLOGY Atypical 0.0 % <=0.0 % 04/29 [facility] Lymphs [facility] HEMATOLOGY Eosinophils 2.0 % 0.0 - 4.0 04/[address] HEMATOLOGY Monocytes 0.0 % 2.0 - 12.0 04/[address] [place] [address] HEMATOLOGY Blasts 8.0 % <=0.0 % 04/29 [facility] HEMATOLOGY Bands 1.0 % 0.0 - 11.0 04/29 [facility] HEMATOLOGY Segs 6.0 % 45.0 - 04/29 75.0 [facility] HEMATOLOGY Lymphocytes 83.0 % 20.0 - 07 40.0 [facility] HEMATOLOGY MCHC 34.6 g/dL 32.0 - 04/29 36.0 [facility] HEMATOLOGY MCV 101.0 fL 80.0 - 04/29 98.0 [facility] HEMATOLOGY Hct 20.8 % 36.0 - 07 48.0 [facility] HEMATOLOGY MCH 35.0 pg 27.0 - 07 31.0 [facility] HEMATOLOGY RDW 17.2 % 11.5 - 07 14.5 [facility] HEMATOLOGY MPV 9.8 fL 7.4 - 10.4 04/[address] HEMATOLOGY Platelet 64 K/CMM 133 - 450 04/[address] HEMATOLOGY Hgb 7.2 g/dL 12.0 - 04/29 16.0 [facility] HEMATOLOGY WBC 10.2 K/CMM 3.7 - 10.4 04/[address] HEMATOLOGY RBC 2.06 M/CMM 4.20 - / [facility] 5.40 /2017 [facility] CHEM PANEL Total 6.8 g/dL 6.4 - 8.4 04/28 [facility] Protein [address] CHEM PANEL Albumin Lvl 2.7 g/dL 3.5 - 5.0 04/[address] CHEM PANEL Bili Total 0.5 mg/dL 0.2 - 1.3 04/[address] CHEM PANEL Alk Phos 71 unit/L 39 - 136 04/[address] CHEM PANEL AST 16 unit/L 0 - 37 04/[address] CHEM PANEL ALT 11 unit/L 0 - 65 04/[address] CHEM PANEL A/G Ratio 0.7 0.7 - 1.6 04/[address] CHEM PANEL Globulin 4.1 g/dL 2.7 - 4.2 04/[address] CHEM PANEL B/C Ratio 46 6 - 25 04/[address] HEMATOLOGY Eosinophils 0.3 K/CMM 0.0 - 0.5 04/28 [facility] # [address] HEMATOLOGY Bands 1.0 % 0.0 - 11.0 04/[address] HEMATOLOGY Blasts 1.0 % <=0.0 % 04/[address] HEMATOLOGY Anisocyte 1+ None Seen 04/[address] *ABN* Center (04/28/18 2:32 AM) HEMATOLOGY Atypical 0.0 % <=0.0 % 04/28 [facility] Lymphs [address] HEMATOLOGY Macrocyte 1+ None Seen 04/28 [address] [facility] (04/28/18 2:32 AM) CHEM PANEL B/C Ratio 41 6 - 25 04/[address] CHEM PANEL Globulin 4.2 g/dL 2.7 - 4.2 04/[address] CHEM PANEL A/G Ratio 0.7 0.7 - 1.6 04/[address] CHEM PANEL Bili Total 0.5 mg/dL 0.2 - 1.3 04/[address] CHEM PANEL Albumin Lvl 2.9 g/dL 3.5 - 5.0 04/[address] CHEM PANEL Total 7.1 g/dL 6.4 - 8.4 04/[address] CHEM PANEL Alk Phos 79 unit/L 39 - 136 04/[address] CHEM PANEL ALT 13 unit/L 0 - 65 04/[address] CHEM PANEL AST 17 unit/L 0 - 37 04/[address] HEMATOLOGY Macrocyte 1+ None Seen 04/27 [facility] [address] [place], [place] [id number]* [place] (04/27/18 3:21 AM) HEMATOLOGY Atypical 2.0 % <=0.0 % 04/27 [facility] Lymph /2017 [facility] HEMATOLOGY Blasts 1.0 % <=0.0 % 04/[address] HEMATOLOGY Anisocyte 1+ None Seen 04/[address]* [place] (04/27/18 3:21 AM) HEMATOLOGY Bands 0.0 % 0.0 - 11.0 04/[address] ANEMIA Vitamin B12 831 pg/mL 254 - 1320 04/27 [facility] STUDY Lvl /[address] [place] [address] ANEMIA Iron 53 ug/dl 30 - 160 04/27 [facility] /[address] [place] [address] ANEMIA % Satur Fe 25 % 12 - 57 04/[address] ANEMIA UIBC 158 ug/dl 110 - 370 04/[address] ANEMIA TIBC 211 ug/dl 228 - 428 04/[address] ANEMIA Folate Lvl 17.0 ng/mL >=3.0 04/27 [facility] STUDY ng/mL /2017 [facility] ANEMIA Ferritin Lvl 362 ng/mL 5 - 204 04/[address] Chest 1view Chest 1view EXAM: XR CHEST 1 VIEW 04/26 - [facility] DX DX - Medical This report was dictated by a In Flight Refueling Manager/Fellow. I have personally reviewed the images [...] AND UA <=1.0 0.1 - 1.0 04/26 [facility] Urobilinogen mg/dL /[address] [place] [address] URINE AND UA Protein Negative Negative 04/26 [facility] mg/dL mg/dL /[address] [place] [address] URINE AND UA Glucose Negative Negative 04/26 [facility] mg/dL mg/dL /[address] [place] [address] URINE AND UA Spec Grav 1.008 <=1.030 04/[address] URINE AND UA pH 5.5 5.0 - 8.0 04/[address] URINE AND UA Turbidity Clear Clear 04/[address] (04/26/18 3:19 PM) [place] URINE AND UA Color Yellow Yellow 04/26 [facility] [address] [place] [address] *NA* [place] (04/26/18 3:19 PM) URINE AND UA Nitrite Negative Negative 04/[address] (04/26/18 3:19 PM) [place] URINE AND UA Leuk Est Negative Negative 04/[address] (04/26/18 3:19 PM) [place] URINE AND UA Bili Negative Negative 04/26 [facility] [address] [place] [address] *NA* [place] (04/26/18 3:19 PM) URINE AND UA Blood Negative Negative 04/[address] (04/26/18 3:19 PM) [place] URINE AND UA Ketones Negative Negative 04/26 [facility] mg/dL mg/dL [address] [place] [address] URINE AND UA Sq Epi None Seen 04/[address] URINE AND UA Mucus Few /LPF None Seen 04/26 [facility] STOOL /LPF /[address] [place] [address] URINE AND UA Hyal Cast 11 /LPF 0 - 2 04/26 [facility] STOOL /[address] [place] [address] URINE AND UA WBC null 0 - 5 04/26 [facility] STOOL /[address] [place] [address] URINE AND UA RBC null 0 - 2 04/26 [facility] STOOL /[address] [place] [address] CARDIAC Total CK 9 unit/L - 04/26 [facility] ENZYMES /[address] [place] [address] CARDIAC Troponin-T null 0.000 - 04/26 [place] ENZYMES 0.100 /2017 [facility] CARDIAC Troponin-I null 0.00 - 04/26 [place] ENZYMES 0.40 /2017 [facility] CARDIAC Total CK 13 unit/L - 04/26 [facility] ENZYMES /[address] [place] [address] CARDIAC Troponin-T null 0.000 - 04/26 [place] ENZYMES 0.100 /2017 [facility] CARDIAC Troponin-I null 0.00 - 04/26 [facility] ENZYMES 0.40 [facility] CHEM PANEL B/C Ratio 37 6 - 25 04/[address] CHEM PANEL AST 11 unit/L 0 - 37 04/[address] CHEM PANEL ALT 9 unit/L 0 - 65 04/[address] CHEM PANEL Total 7.1 g/dL 6.4 - 8.4 04/26 [facility] Protein [address] [place] [address] CHEM PANEL Albumin Lvl 2.9 g/dL 3.5 - 5.0 04/[address] CHEM PANEL A/G Ratio 0.7 0.7 - 1.6 04/[address] CHEM PANEL Globulin 4.2 g/dL 2.7 - 4.2 04/[address] CHEM PANEL Bili Total 0.9 mg/dL 0.2 - 1.3 04/[address] CHEM PANEL Alk Phos 72 unit/L 39 - 136 04/[address] HEMATOLOGY Myelocytes 1.0 % <=0.0 % 04/[address] CARDIAC Troponin-I null 0.00 - 04/26 [facility] ENZYMES 0.40 [facility] CARDIAC Total CK 18 unit/L - 04/26 [facility] ENZYMES [address] CARDIAC BNP 710 pg/mL <=100 04/26 [facility] ENZYMES pg/mL /[address] [place] [address] CHEM PANEL Lipase Lvl 96 unit/L 73 - 393 04/[address] CHEM PANEL Amylase Lvl 49 unit/L 25 - 115 04/26 [facility] HEMATOLOGY INR 1.10 0.85 - 04/26 [place] 1.17 [facility] HEMATOLOGY PTT 36.5 s 22.9 - 04/26 [facility] 35.8 [facility] HEMATOLOGY PT 14.2 s 12.0 - 04/26 [facility] 14.7 [facility] HEMATOLOGY Anisocyte 1+ None Seen 04/26 Medical *ABN* Center (04/25/18 11:02 PM) Abdomen AP Abdomen AP EXAM: XR ABDOMEN 1 VIEW 04/25 - [facility] DX [facility] DATE: 04/25/2018 11:05 PM CDT Read by: [...] EXAM: XR CHEST 2 VIEWS 04/25 - [facility] views DX views [facility] DATE: 04/25/2018 8:26 PM CDT Read [...] semiupright exam. PET CT PET CT EXAM: DE PET CT Skull Base to Mid Thigh 04/02 - [facility] Lymphoma Lymphoma /2018 - [place] restaging restaging This report was dictated by a In Flight Refueling Manager/ Fellow. I have personally reviewed the [...] Magnesium 2.4 mg/dL 1.8 - 2.4 02/06 [facility] CHEM PANEL eGFR 45 02/06 Result Comment: The eGFR is calculated using the CKD-EPI formula. In most young, healthy individuals the eGFR will be >90 mL/ min/1.73m2. The eGFR declines with age. An eGFR of 60-89 may be normal in [facility] mL/min/1. some populations, particularly the elderly, for whom the CKD-EPI formula has not been extensively validated. Use of the eGFR is not recommended in the following populations: [address] Individuals with unstable creatinine concentrations, including [...] PANEL Creatinine 1.16 mg/dL 0.50 - 02/06 [facility] Lvl 1.40 [facility] CHEM PANEL Glucose Lvl 63 mg/dL 70 - 99 02/[address] CHEM PANEL BUN 50 mg/dL 7 - 22 02/[address] CHEM PANEL Sodium Lvl 139 meq/L 135 - 145 02/[address] CHEM PANEL Potassium 3.9 meq/L 3.5 - 5.1 02/06 [facility] CHEM PANEL Chloride Lvl 104 meq/L 95 - 109 02/[address] CHEM PANEL CO2 29 meq/L 24 - 32 02/[address] CHEM PANEL AGAP 9.9 meq/L 10.0 - 02/06 [facility] 20.0 [facility] CHEM PANEL Calcium Lvl 8.6 mg/dL 8.5 - 10.5 02/[address] CHEM PANEL Phosphorus 2.6 mg/dL 2.5 - 4.5 02/[address] CHEM PANEL Uric Acid 0.7 mg/dL 2.5 - 7.0 02/[address] HEMATOLOGY Eosinophils 0.2 % 0.0 - 4.0 02/[address] HEMATOLOGY Lymphocytes 91.1 % 20.0 - 02/06 [facility] 40.0 [facility] HEMATOLOGY Monocytes 0.8 % 2.0 - 12.0 02/[address] HEMATOLOGY Segs 7.8 % 45.0 - 02/06 [facility] 75.0 [facility] HEMATOLOGY Smudge Moderate None Seen 02/06 [facility] [address] [place], [place] [id number]* Center (02/06/18 3:30 AM) HEMATOLOGY Macrocyte 1+ None Seen 02/06 [facility] [address] [place], [place] [id number]* Center (02/06/18 3:30 AM) HEMATOLOGY Segs-Bands # 1.6 K/CMM 1.5 - 8.1 02/[address] HEMATOLOGY Lymphocytes 18.8 K/CMM 1.0 - 5.5 02/06 [facility] # [facility] HEMATOLOGY Basophils 0.1 % 0.0 - 1.0 02/06 [facility] HEMATOLOGY Monocytes # 0.2 K/CMM 0.0 - 0.8 02/06 [facility] HEMATOLOGY Anisocyte 1+ None Seen 02/06 [facility] [place] (02/06/18 3:30 AM) HEMATOLOGY Platelet 57 K/CMM 133 - 450 02/06 [facility] HEMATOLOGY WBC 20.6 K/CMM 3.7 - 10.4 02/06 2017 [facility] HEMATOLOGY RBC 2.48 M/CMM 4.20 - 02/06 [facility] 5.40 [facility] HEMATOLOGY Hct 25.2 % 36.0 - 02/06 [facility] 48.0 [facility] HEMATOLOGY Hgb 8.0 g/dL 12.0 - 02/06 [facility] 16.0 [facility] HEMATOLOGY MPV 9.5 fL 7.4 - 10.4 02/06 [facility]2017 [facility] HEMATOLOGY MCHC 31.7 g/dL 32.0 - 02/06 [facility] 36.0 [facility] HEMATOLOGY MCH 32.3 pg 27.0 - 02/06 [facility] 31.0 [facility] HEMATOLOGY MCV 101.8 fL 80.0 - 02/06 [facility] 98.0 [facility] HEMATOLOGY RDW 22.4 % 11.5 - 02/06 [facility] 14.5 [facility] HEMATOLOGY INR 1.03 0.85 - 02/06 [facility] 1.17 [facility] HEMATOLOGY PTT 32.2 s 22.9 - 02/06 [facility] 35.8 [facility] HEMATOLOGY PT 13.5 s 12.0 - 02/06 [facility] 14.7 [facility] CHEM PANEL Magnesium 2.1 mg/dL 1.8 - 2.4 02/05 [facility] Lvl [facility] CHEM PANEL Uric Acid 0.3 mg/dL 2.5 - 7.0 02/05 [facility]2017 [facility] CHEM PANEL eGFR 42 02/05 Result Comment: The eGFR is calculated using the CKD-EPI formula. In most young, healthy individuals the eGFR will be >90 mL/ min/1.73m2. The eGFR declines with age. An eGFR of 60-89 may be normal in [facility] mL/min/1. some populations, particularly the elderly, for whom the CKD-EPI formula has not been extensively validated. Use of the eGFR is not recommended in the following populations: [address] Individuals with unstable creatinine concentrations, including [...] Lvl 133 meq/L 135 - 145 02/05 [facility] CHEM PANEL Creatinine 1.23 mg/dL 0.50 - 02/05 [facility] Lvl 1.40 [facility] CHEM PANEL Glucose Lvl 424 mg/dL 70 - 99 02/05 Result Comment: [facility] Result(s) called to Shannon Murdock at 02/05/2018 06:18 by ET. Read back OK. CHEM PANEL BUN 54 mg/dL 7 - 22 02/05 2017 [facility] CHEM PANEL Calcium Lvl 8.9 mg/dL 8.5 - 10.5 02/05 [facility] CHEM PANEL AGAP 13.9 meq/L 10.0 - 02/05 [facility] 20.0 [facility] CHEM PANEL CO2 27 meq/L 24 - 32 02/05 [facility]2017 [facility] CHEM PANEL Chloride Lvl 97 meq/L 95 - 109 02/05 [facility] CHEM PANEL Potassium 4.9 meq/L 3.5 - 5.1 02/05 [facility] l [facility] CHEM PANEL Phosphorus 2.7 mg/dL 2.5 - 4.5 02/05 [facility] HEMATOLOGY Hgb 8.6 g/dL 12.0 - 02/05 16.0 [facility] HEMATOLOGY RBC 2.64 M/CMM 4.20 - 02/05 5.40 [facility] HEMATOLOGY WBC 19.7 K/CMM 3.7 - 10.4 02/05 [facility] HEMATOLOGY Hct 26.9 % 36.0 - 02/05 48.0 [facility] HEMATOLOGY MCV 101.9 fL 80.0 - 02/05 [facility] 98.0 [facility] HEMATOLOGY MCH 32.5 pg 27.0 - 02/05 31.0 [facility] HEMATOLOGY Platelet 59 K/CMM 133 - 450 02/05 [facility] HEMATOLOGY RDW 22.7 % 11.5 - 02/05 [facility] 14.5 [facility] HEMATOLOGY MCHC 31.9 g/dL 32.0 - 02/05 [facility] 36.0 [facility] HEMATOLOGY MPV 9.9 fL 7.4 - 10.4 02/05 2017 [facility] HEMATOLOGY PTT 33.8 s 22.9 - 02/05 [place] 35.8 /2017 [facility] HEMATOLOGY PT 14.1 s 12.0 - 02/05 [facility] 14.7 [facility] HEMATOLOGY INR 1.09 0.85 - 02/05 [place] 1.17 [facility] HEMATOLOGY Smudge Moderate None Seen 02/05 [facility] (02/05/18 5:02 AM) HEMATOLOGY Segs-Bands # 1.7 K/CMM 1.5 - 8.1 02/[address] HEMATOLOGY Lymphocytes 90.0 % 20.0 - 02/05 [facility] 40.0 [facility] HEMATOLOGY Plt Morph Normal 02/05 [facility] (02/05/18 5:02 AM) [place] HEMATOLOGY Monocytes 1.0 % 2.0 - 12.0 02/[address] HEMATOLOGY Segs 9.0 % 45.0 - 02/05 [facility] 75.0 [facility] HEMATOLOGY Basophils 0.0 % 0.0 - 1.0 02/[address] HEMATOLOGY Lymphocytes 17.9 K/CMM 1.0 - 5.5 02/05 [facility] # [facility] HEMATOLOGY Macrocyte 1+ None Seen 02/05 [facility] [place] (02/05/18 5:02 AM) HEMATOLOGY Monocytes # 0.1 K/CMM 0.0 - 0.8 02/[address] HEMATOLOGY Anisocyte 1+ None Seen 02/05 [facility] (02/05/18 5:02 AM) CHEM PANEL Uric Acid 4.0 mg/dL 2.5 - 7.0 02/[address] [place] [address] CHEM PANEL Phosphorus 2.3 mg/dL 2.5 - 4.5 02/[address] CHEM PANEL eGFR 58 04/11 Result Comment: The eGFR is calculated using the CKD-EPI formula. In most young, healthy individuals the eGFR will be >90 mL/ min/1.73m2. The eGFR declines with age. An eGFR of 60-89 may be normal in [facility] mL/min/1.7 some populations, particularly the elderly, for whom the CKD-EPI formula has not been extensively validated. Use of the eGFR is not recommended in the following populations: [address] Individuals with unstable creatinine concentrations, including [...] Lvl 8.8 mg/dL 8.5 - 10.5 02/04 [facility] CHEM PANEL Glucose Lvl 110 mg/dL 70 - 99 02/04 [facility]2017 [facility] CHEM PANEL Sodium Lvl 135 meq/L 135 - 145 02/[address] CHEM PANEL Potassium 4.2 meq/L 3.5 - 5.1 02/04 [facility] CHEM PANEL Chloride Lvl 96 meq/L 95 - 109 02/[address] CHEM PANEL CO2 29 meq/L 24 - 32 02/[address] CHEM PANEL AGAP 14.2 meq/L 10.0 - 02/04 [facility] 20.0 [facility] CHEM PANEL BUN 54 mg/dL 7 - 22 02/[address] CHEM PANEL Creatinine 0.94 mg/dL 0.50 - 02/04 [facility] 1.40 [facility] CHEM PANEL Uric Acid 4.2 mg/dL 2.5 - 7.0 02/[address] CHEM PANEL Magnesium 2.1 mg/dL 1.8 - 2.4 02/04 [facility] HEMATOLOGY PT 13.8 s 12.0 - 02/04 [facility] 14.7 [facility] HEMATOLOGY PTT 34.7 s 22.9 - 04 [place] 35.8 [facility] HEMATOLOGY INR 1.06 0.85 - 02/04 [facility] 1.17 [facility] HEMATOLOGY RBC 2.80 M/CMM 4.20 - 02/04 [place] 5.40 /2017 [facility] HEMATOLOGY Hgb 9.1 g/dL 12.0 - 02/04 [place] 16.0 [facility] HEMATOLOGY Hct 27.6 % 36.0 - 02/04 [place] 48.0 /2017 [facility] HEMATOLOGY WBC 28.3 K/CMM 3.7 - 10.4 02/04 [facility] HEMATOLOGY MCHC 32.8 g/dL 32.0 - 02/04 [place] 36.0 [facility] HEMATOLOGY RDW 20.8 % 11.5 - 04 [place] 14.5 [facility] HEMATOLOGY Platelet 69 K/CMM 133 - 450 02/04 [facility] HEMATOLOGY MCV 98.5 fL 80.0 - 02/04 [facility] 98.0 [facility] HEMATOLOGY MCH 32.3 pg 27.0 - 02/04 31.0 [facility] HEMATOLOGY MPV 9.7 fL 7.4 - 10.4 02/04 [facility] HEMATOLOGY Eosinophils 0.2 % 0.0 - 4.0 02/04 [facility] HEMATOLOGY Basophils 0.1 % 0.0 - 1.0 02/[address] [place] [address] HEMATOLOGY Segs-Bands # 1.8 K/CMM 1.5 - 8.1 02/[address] [place] [address] HEMATOLOGY Monocytes # 0.3 K/CMM 0.0 - 0.8 02/04 [facility] [address] [place] [address] HEMATOLOGY Eosinophils 0.1 K/CMM 0.0 - 0.5 02/04 [facility] # /2017 [facility] HEMATOLOGY Lymphocytes 26.1 K/CMM 1.0 - 5.5 02/04 [facility] # /2017 [facility] HEMATOLOGY Lymphocytes 92.5 % 20.0 - 02/04 [place] 40.0 [facility] HEMATOLOGY Monocytes 0.9 % 2.0 - 12.0 02/[address] [place] [address] HEMATOLOGY Segs 6.3 % 45.0 - 02/04 [place] 75.0 [facility] HEMATOLOGY Anisocyte 1+ None Seen 02/[address] [place] [address] (02/03/18 4:54 AM) HEMATOLOGY Eosinophils 0.1 % 0.0 - 4.0 02/03 [facility] HEMATOLOGY Macrocyte 1+ None Seen 02/03 [facility] *ABN* [place] (02/03/18 4:54 AM) HEMATOLOGY Plt Morph Normal 02/03 [facility] (02/03/18 4:54 AM) [place] PARATHYROID Ca Ion WB 1.17 1.05 - 02/03 [facility] PROFILE mMol/L 1. [facility] PARATHYROID Ca Norm WB 1.18 1.05 - 02/03 [facility] PROFILE mMol/L 1. [facility] Abdomen Abdomen EXAM: VIR 02/02 - [facility] biopsy biopsy /2017 - [facility] needle w needle w DATE: 02/02/2018 [...] :07 FINAL REPORT FACULTY: Freya Reid MD RESIDENT/FELLOW/ANNUAL GIVING DIRECTOR: None SUPERVISION: Level 1 Direct supervision: The [...] procedure. HEMATOLOGY Hypochrom 1+ None Seen 02/[address] (02/02/18 3:32 AM) [place] HEMATOLOGY Polychrom Moderate None Seen 02/[address] (02/02/18 3:32 AM) HEMATOLOGY Smudge Moderate None Seen 02/[address] (02/02/18 3:32 AM) CHEM PANEL Albumin Lvl 2.7 g/dL 3.5 - 5.0 02/[address] CHEM PANEL Globulin 3.7 g/dL 2.7 - 4.2 02/[address] CHEM PANEL ALT 17 unit/L 0 - 65 02/[address] CHEM PANEL A/G Ratio 0.7 0.7 - 1.6 02/[address] CHEM PANEL Alk Phos 66 unit/L 39 - 136 02/[address] CHEM PANEL AST 21 unit/L 0 - 37 02/[address] CHEM PANEL Bili Total 0.5 mg/dL 0.2 - 1.3 02/[address] CHEM PANEL Total 6.4 g/dL 6.4 - 8.4 02/[address] CHEM PANEL B/C Ratio 75 6 - 25 02/[address] HEMATOLOGY Atypical 0.0 % <=0.0 % 02/[address] HEMATOLOGY Microcyte 1+ None Seen 02/[address] (02/01/18 3:32 AM) HEMATOLOGY Blasts 1.0 % <=0.0 % 02/[address] HEMATOLOGY Bands 0.0 % 0.0 - 11.0 02/[address] HEMATOLOG[address] Tot Cell Ct 200 01/[address] HEMATOLOGY Bands 0.0 % 0.0 - 11.0 01/[address] HEMATOLOGY Plt Morph Normal 01/[address] (01/29/18 5:39 AM) [place] HEMATOLOGY RBC Morph Normal 01/[address] (01/29/18 5:39 AM) [place] HEMATOLOGY Atypical 0.0 % <=0.0 % 01/[address] Chest 1view Chest 1view EXAM: XR CHEST 1 VIEW 01/29 - [facility] DX DX - [facility] DATE: 01/29/2018 Read by: Jackie Marcum MD Dictated Date/time: 01/29/18 10:52 Electronically Signed by: Jackie Marcum MD 01/29/18 10:53 FINAL REPORT INDICATION: - dyspnea . Comparison is made with yesterday FINDINGS: Cardiomediastinal silhouette and life-support lines are unchanged. There is interstitial pulmonary edema. IMPRESSION: No significant interval change when compared to prior radiograph. CHEM PANEL ALT 7 unit/L 0 - 65 04/ [address] CHEM PANEL AST 21 unit/L 0 - 37 01/[address] CHEM PANEL Globulin 4.2 g/dL 2.7 - 4.2 01/[address] CHEM PANEL B/C Ratio 31 6 - 25 01/[address] CHEM PANEL A/G Ratio 0.6 0.7 - 1.6 01/[address] CHEM PANEL Bili Total 0.7 mg/dL 0.2 - 1.3 01/[address] CHEM PANEL Total 6.9 g/dL 6.4 - 8.4 01/[address] CHEM PANEL Albumin Lvl 2.7 g/dL 3.5 - 5.0 01/[address] CHEM PANEL Alk Phos 67 unit/L 39 - 136 01/[address] URINE AND UA Ketones Negative Negative 01/28 [facility] STOOL mg/dL mg/dL /[address] [place] [address] CHEM PANEL B/C Ratio 33 6 - 25 / [address] CHEM PANEL Total 7.2 g/dL 6.4 - 8.4 01/[address] CHEM PANEL AST 23 unit/L 0 - 37 01/[address] CHEM PANEL Alk Phos 75 unit/L 39 - 136 01/[address] CHEM PANEL Bili Total 0.8 mg/dL 0.2 - 1.3 01/[address] CHEM PANEL Albumin Lvl 2.8 g/dL 3.5 - 5.0 01/[address] CHEM PANEL Globulin 4.4 g/dL 2.7 - 4.2 01/[address] CHEM PANEL A/G Ratio 0.6 0.7 - 1.6 01/[address] CHEM PANEL ALT 10 unit/L 0 - 65 01/[address] ANEMIA Ferritin Lvl 180 ng/mL 5 - 204 01/[address] ANEMIA Vitamin B12 239 pg/mL 254 - 1320 01/28 [facility] [address] [place] [address] ANEMIA % Satur Fe 16 % 12 - 57 01/[address] ANEMIA UIBC 264 ug/dl 110 - 370 01/[address] ANEMIA Iron 50 ug/dl 30 - 160 01/[address] ANEMIA TIBC 314 ug/dl 228 - 428 01/[address] ANEMIA RBC Folate 1501 ng/mL 280 - 791 01/[address] ANEMIA Folate Lvl 16.0 ng/mL >=3.0 01/28 [facility] ng/mL [address] [place] [address] CHEM PANEL Ketone 0.24 <=0.27 01/28 [facility] Quantitative mmol/L mmol/L [facility] CHEM PANEL Lactic Acid 1.3 mMol/L 0.5 - 2.2 01/28 [facility] [address] [place] [address] HEMATOLOGY Retic Auto 5.0 % 0.5 - 1.5 01/[address] HEMATOLOG[address] Tot Cell Ct 100 01/[address] HEMATOLOGY Atypical 2.0 % <=0.0 % 01/28 [facility] Lymphs /[address] [place] [address] HEMATOLOGY Bands 0.0 % 0.0 - 11.0 01/[address] Chest 1view Chest 1view EXAM: XR CHEST 1 VIEW 01/28 - [facility] DX DX - [facility] DATE: 01/28/2018 8:48 AM CDT Read [...] stable. CARDIAC BNP 1002 pg/mL <=100 01/27 [facility] ENZYMES pg/mL /[facility] IMMUNOLOGY Hep Bs Ag Negative Negative [facility] (01/27/18 2:02 PM) IMMUNOLOGY Hep B Core Negative Negative 01/27 [facility] (01/27/18 2:02 PM) IMMUNOLOGY Hep C Ab Negative 01/27 [facility] (01/27/18 2:02 PM) IMMUNOLOGY Hep A IgM Negative Negative 01/27 [facility] (01/27/18 2:02 PM) HEMATOLOGY Basophils # 0.1 K/CMM 0.0 - 0.2 01/27 [facility] Chest 1 v Chest 1 v EXAM: XR CHEST 1 VIEW 01/27 - [facility] - Medical Placement Placement DX This report was dictated by a In Flight Refueling Manager/Fellow. I have personally reviewed the images [...] BLOOD BANK RBC product Modification Required 01/27 [facility] RESULTS Medical (01/26/18 8:26 PM) [place] BLOOD BANK ABO/Rh O NEG 01/26 [facility] RESULTS /2017 [facility] BLOOD BANK Antibody Negative 01/26 [facility] RESULTS Scrn [facility] (01/26/18 4:49 PM) [place] CARDIAC Troponin-I null 0.00 - 01/26 [facility] ENZYMES 0. [facility] HEMATOLOGY Blasts 2.0 % <=0.0 % 01/26 Result Comment: Medical Patient has Center history of CLL. HEMATOLOGY Tot Cell Ct 200 01/26 [place] /2017 [facility] Chest 2 Chest 2 EXAM: XR CHEST 2 VIEWS 01/26 - [facility] views DX views DX - [facility] This report was dictated by a In Flight Refueling Manager/Fellow. I have personally reviewed the images [...] from 01/01/2018. 2. Small bibasilar pleural effusions. [place] SECTION: ER PET CT PET CT Tumor F 18 FDG PET/CT SKULL BASE TO MID THIGH: 01/26/2018 4:41 PM CDT 01/21 - [facility] Tumor imaging-sk - [facility] imaging-sku [facility] CLINICAL INDICATION: - liver cancer initial [...] involvement. HEMATOLOGY Macrocyte 1+ None Seen 01/05 [facility] [place] (01/05/18 12:54 PM) HEMATOLOGY Anisocyte 1+ None Seen 01/05 [facility] [place] (01/05/18 12:54 PM) HEMATOLOGY Smudge Moderate None Seen 01/05 [facility] *ABN* Center (01/05/18 12:54 PM) HEMATOLOGY Lymphocytes 24.7 K/CMM 1.0 - 5.5 03 [facility] # /2017 [facility] HEMATOLOGY Segs-Bands # 1.3 K/CMM 1.5 - 8.1 01/[address] HEMATOLOGY Segs 5.1 % 45.0 - 01/05 [place] 75.0 [facility] HEMATOLOGY Basophils # 0.1 K/CMM 0.0 - 0.2 01/05 [facility] HEMATOLOGY Eosinophils 0.1 K/CMM 0.0 - 0.5 01/05 [facility] # /2017 [facility] HEMATOLOGY Monocytes # 0.2 K/CMM 0.0 - 0.8 01/[address] HEMATOLOGY Basophils 0.2 % 0.0 - 1.0 01/[address] HEMATOLOGY Eosinophils 0.2 % 0.0 - 4.0 01/[address] HEMATOLOGY Monocytes 0.7 % 2.0 - 12.0 01/05 [facility] [address] [place] [address] HEMATOLOGY Lymphocytes 93.8 % 20.0 - 01/05 [place] 40.0 [facility] HEMATOLOGY WBC 26.4 K/CMM 3.7 - 10.4 01/05 [facility] HEMATOLOGY MPV 10.3 fL 7.4 - 10.4 01/05 [facility] [address] [place] [address] HEMATOLOGY Platelet 68 K/CMM 133 - 450 01/[address] HEMATOLOGY RDW 20.4 % 11.5 - 03 14.5 [facility] HEMATOLOGY MCHC 32.0 g/dL 32.0 - 01/05 [place] 36.0 [facility] HEMATOLOGY MCH 32.5 pg 27.0 - 0312 [place] 31.0 2018 [facility] HEMATOLOGY RBC 2.37 M/CMM 4.20 - 0312 [place] 5.40 2018 [facility] HEMATOLOGY MCV 101.3 fL 80.0 - 01/05 98.0 [facility] HEMATOLOGY Hct 24.0 % 36.0 - 03 [place] 48.0 /2018 [facility] HEMATOLOGY Hgb 7.7 g/dL 12.0 - 03 [place] 16.0 [facility] CHEM PANEL Magnesium 1.8 mg/dL 1.8 - 2.4 01/05 Result [facility] Comment: [facility] Center Slightly Hemolyzed. CHEM PANEL Phosphorus 3.4 mg/dL 2.5 - 4.5 01/[address] CHEM PANEL Albumin Lvl 2.7 g/dL 3.5 - 5.0 01/[address] CHEM PANEL Bili Total 0.4 mg/dL 0.2 - 1.3 01/[address] CHEM PANEL Total 7.4 g/dL 6.4 - 8.4 01/05 [facility] Protein [address] CHEM PANEL AST 21 unit/L 0 - 37 01/[address] CHEM PANEL ALT 10 unit/L 0 - 65 01/[address] CHEM PANEL Alk Phos 70 unit/L 39 - 136 01/[address] CHEM PANEL Globulin 4.7 g/dL 2.7 - 4.2 01/[address] CHEM PANEL A/G Ratio 0.6 0.7 - 1.6 01/[address] CHEM PANEL Bili Direct 0.1 mg/dL 0.0 - 0.3 01/[address] CHEM PANEL Bili 0.3 mg/dL 0.0 - 1.0 01/05 [facility] Indirect /[address] [place] [address] ELECTROLYTE AGAP 17.3 meq/L 10.0 - 01/05 [facility] 20.0 [facility] ELECTROLYTE CO2 22 meq/L 24 - 32 01/[address] ELECTROLYTE Calcium Lvl 8.8 mg/dL 8.5 - 10.5 01/[address] ELECTROLYTE Potassium 4.3 meq/L 3.5 - 5.1 01/05 [facility] [place] [address] ELECTROLYTE Chloride Lvl 98 meq/L 95 - 109 01/[address] ELECTROLYTE Sodium Lvl 133 meq/L 135 - 145 01/[address] ELECTROLYTE eGFR 43 01/05 Result Comment: The eGFR is calculated using the CKD-EPI formula. In most young, healthy individuals the eGFR will be >90 mL/ min/1.73m2. The eGFR declines with age. An eGFR of 60-89 may be normal in [facility] mL/min/1.7 /2017 some populations, particularly the elderly, for whom the CKD-EPI formula has not been extensively validated. Use of the eGFR is not recommended in the following populations: [address] Individuals with unstable creatinine concentrations, including [...] BUN 45 mg/dL 7 - 22 01/05 [facility]2017 [facility] ELECTROLYTE Creatinine 1.19 mg/dL 0.50 - 01/05 [facility] Lvl 1.40 [facility] ELECTROLYTE Glucose Lvl 120 mg/dL 70 - 99 01/[address] CHEM PANEL eGFR 41 01/04 Result Comment: The eGFR is calculated using the CKD-EPI formula. In most young, healthy individuals the eGFR will be >90 mL/ min/1.73m2. The eGFR declines with age. An eGFR of 60-89 may be normal in [facility] mL/min/1 some populations, particularly the elderly, for whom the CKD-EPI formula has not been extensively validated. Use of the eGFR is not recommended in the following populations: [address] Individuals with unstable creatinine concentrations, including [...] CO2 23 meq/L 24 - 32 01/04 [facility] CHEM PANEL Chloride Lvl 96 meq/L 95 - 109 01/04 [facility]2017 [facility] CHEM PANEL AGAP 16.3 meq/L 10.0 - 01/04 [facility] 20.0 [facility] CHEM PANEL Potassium 4.3 meq/L 3.5 - 5.1 01/04 [facility] CHEM PANEL Sodium Lvl 131 meq/L 135 - 145 01/04 [facility]2017 [facility] CHEM PANEL Creatinine 1.24 mg/dL 0.50 - 01/04 [facility] 1. [facility] CHEM PANEL Calcium Lvl 8.8 mg/dL 8.5 - 10.5 01/[address] CHEM PANEL BUN 47 mg/dL 7 - 01/[address] CHEM PANEL Glucose Lvl 167 mg/dL 70 - 99 01/[address] CHEM PANEL Phosphorus 3.6 mg/dL 2.5 - 4.5 01/[address] CHEM PANEL Magnesium 2.0 mg/dL 1.8 - 2.4 01/03 [facility] CHEM PANEL eGFR 45 01/03 Result Comment: The eGFR is calculated using the CKD-EPI formula. In most young, healthy individuals the eGFR will be >90 mL/ min/1.73m2. The eGFR declines with age. An eGFR of 60-89 may be normal in [facility] mL/min/1. some populations, particularly the elderly, for whom the CKD-EPI formula has not been extensively validated. Use of the eGFR is not recommended in the following populations: [address] Individuals with unstable creatinine concentrations, including [...] Lvl 135 meq/L 135 - 145 01/[address] CHEM PANEL Potassium 3.5 meq/L 3.5 - 5.1 01/03 [facility] CHEM PANEL BUN 39 mg/dL 7 - 01/[address] CHEM PANEL Creatinine 1.15 mg/dL 0.50 - 01/03 [facility] 1.40 [facility] CHEM PANEL Calcium Lvl 9.0 mg/dL 8.5 - 10.5 01/[address] CHEM PANEL Chloride Lvl 100 meq/L 95 - 109 01/[address] CHEM PANEL CO2 25 meq/L 24 - 32 01/[address] CHEM PANEL Glucose Lvl 164 mg/dL 70 - 99 01/[address] CHEM PANEL AGAP 13.5 meq/L 10.0 - 0310 [place] 20.0 /2018 [facility] HEMATOLOGY Platelet 68 K/CMM 133 - [address] HEMATOLOGY MPV 9.4 fL 7.4 - 10.4 03 /2017 [facility] HEMATOLOGY MCV 98.7 fL 80.0 - 10 [place] 98.0 /2018 [facility] HEMATOLOGY MCH 32.4 pg 27.0 - 10 [place] 31.0 /2017 [facility] HEMATOLOGY MCHC 32.8 g/dL 32.0 - 10 [place] 36.0 /2018 [facility] HEMATOLOGY RDW 20.6 % 11.5 - 10 [place] 14.5 /2018 [facility] HEMATOLOGY WBC 27.7 K/CMM 3.7 - 10.4 01/03 2017 [facility] HEMATOLOGY RBC 2.25 M/CMM 4.20 - 10 [place] 5.40 /2017 [facility] HEMATOLOGY Hct 22.2 % 36.0 - 10 [facility] 48.0 /2017 [facility] HEMATOLOGY Hgb 7.3 g/dL 12.0 - 01/03 [place] 16.0 [facility] HEMATOLOGY Segs 7.1 % 45.0 - 10 [place] 75.0 /2018 [facility] HEMATOLOGY Lymphocytes 91.1 % 20.0 - 10 [facility] 40.0 /2018 [facility] HEMATOLOGY Monocytes 1.3 % 2.0 - 12.0 01/[address] HEMATOLOGY Segs-Bands # 2.0 K/CMM 1.5 - 8.1 01/[address] HEMATOLOGY Eosinophils 0.2 % 0.0 - 4.0 01/[address] [place] [address] HEMATOLOGY Basophils 0.3 % 0.0 - 1.0 01/[address] HEMATOLOGY Basophils # 0.1 K/CMM 0.0 - 0.2 01/[address] HEMATOLOGY Lymphocytes 25.2 K/CMM 1.0 - 5.5 01/03 [facility] # /2018 [facility] HEMATOLOGY Monocytes # 0.4 K/CMM 0.0 - 0.8 01/03 [facility] /[address] [place] [address] HEMATOLOGY Smudge Moderate None Seen 01/[address] [place] [address] *ABN* Center (01/03/18 5:18 AM) CHEM PANEL Magnesium 2.7 mg/dL 1.8 - 2.4 01/02 [facility] Lvl /2017 [facility] CHEM PANEL Phosphorus 4.3 mg/dL 2.5 - 4.5 01/[address] HEMATOLOGY Basophils # 0.1 K/CMM 0.0 - 0.2 01/[address] HEMATOLOGY Segs-Bands # 1.8 K/CMM 1.5 - 8.1 01/[address] HEMATOLOGY Lymphocytes 28.6 K/CMM 1.0 - 5.5 01/02 [facility] # /2017 [facility] HEMATOLOGY Monocytes # 0.2 K/CMM 0.0 - 0.8 01/[address] HEMATOLOGY Basophils 0.4 % 0.0 - 1.0 01/[address] HEMATOLOGY Anisocyte 1+ None Seen 01/[address] [place] [address]* Center (01/02/18 2:43 AM) HEMATOLOGY Segs 6.0 % 45.0 - 01/02 [facility] 75.0 [facility] HEMATOLOGY Eosinophils 0.1 % 0.0 - 4.0 01/[address] HEMATOLOGY Lymphocytes 92.8 % 20.0 - 01/02 [facility] 40.0 [facility] HEMATOLOGY Monocytes 0.7 % 2.0 - 12.0 01/[address] HEMATOLOGY Plt Morph Normal 01/02 [facility] (01/02/18 2:43 AM) [place] HEMATOLOGY INR 1.07 0.85 - 01/02 [facility] 1.17 [facility] HEMATOLOGY PT 13.9 s 12.0 - 01/02 [facility] 14.7 [facility] HEMATOLOGY PTT 30.5 s 22.9 - 01/02 [facility] 35.8 [facility] HEMATOLOGY MCHC 33.3 g/dL 32.0 - 01/02 [facility] 36.0 [facility] HEMATOLOGY Platelet 85 K/CMM 133 - 450 01/[address] HEMATOLOGY RDW 21.1 % 11.5 - 03 [facility] 14.5 [facility] HEMATOLOGY MPV 9.6 fL 7.4 - 10.4 01/[address] HEMATOLOGY WBC 30.8 K/CMM 3.7 - 10.4 01/[address] HEMATOLOGY Hct 25.3 % 36.0 - 01/02 48.0 [facility] HEMATOLOGY Hgb 8.4 g/dL 12.0 - 01/02 16.0 [facility] HEMATOLOGY RBC 2.57 M/CMM 4.20 - 01/02 5.40 [facility] HEMATOLOGY MCH 32.7 pg 27.0 - 01/02 31.0 [facility] HEMATOLOGY MCV 98.4 fL 80.0 - 01/02 [facility] 98.0 [facility] PARATHYROID Ca Ion WB 1.11 1.05 - 01/02 [facility] PROFILE mMol/L 1. [facility] PARATHYROID Ca Norm WB 1.12 1.05 - 01/02 [facility] PROFILE mMol/L 1. [facility] ANEMIA TRANSFERRIN 208 mg/dL 212 - 360 01/02 [facility] [address] [place] [address] ANEMIA % S[place] Fe 18 % 12 - 57 01/02 [facility] [address] [place] [address] ANEMIA TIBC 430 ug/dl 228 - 428 01/02 [facility] ANEMIA UIBC 351 ug/dl 110 - 370 01/02 [facility] [address] [place] [address] ANEMIA Iron 79 ug/dl 30 - 160 01/02 [facility] STUDY [facility] ANEMIA Ferritin Lvl 81 ng/mL 5 - 204 01/02 [facility] BLOOD BANK RBC product Product available 01/02 [facility] (01/01/18 8:44 PM) [place] HEMATOLOGY Macrocyte 1+ None Seen 01/02 [facility] Center (01/01/18 6:39 PM) CHEM PANEL Alk Phos 75 unit/L 39 - 136 01/[address] CHEM PANEL Bili Total 0.6 mg/dL 0.2 - 1.3 01/01 [facility] [address] [place] [address] CHEM PANEL AST 33 unit/L 0 - 37 01/[address] CHEM PANEL Total 7.3 g/dL 6.4 - 8.4 01/01 [facility] [address] [place] [address] CHEM PANEL Albumin Lvl 2.8 g/dL 3.5 - 5.0 01/[address] CHEM PANEL ALT 8 unit/L 0 - 65 01/[address] CHEM PANEL A/G Ratio 0.6 0.7 - 1.6 01/01 [facility] [address] [place] [address] CHEM PANEL B/C Ratio 24 6 - 25 01/[address] CHEM PANEL Globulin 4.5 g/dL 2.7 - 4.2 01/[address] BLOOD BANK Antibody Negative 01/01 [facility] RESULTS Scrn [facility] (01/01/18 12:41 AM) [place] BLOOD BANK ABO/Rh O NEG 01/01 [facility] RESULTS /2017 [facility] CARDIAC BNP 904 pg/mL <=100 01/01 [facility] ENZYMES pg/mL /2017 [facility] CHEM PANEL Lactic Acid 1.5 mMol/L 0.5 - 2.2 01/01 [facility] Lvl /2017 [facility] CHEM PANEL Procalcitoni 0.55 ng/mL 0.00 - 01/01 [facility] n Lvl 0.10 [facility] CHEM PANEL Total 7.8 g/dL 6.4 - 8.4 01/01 [facility] Protein [address] [place] [address] CHEM PANEL Alk Phos 82 unit/L 39 - 136 01/[address] CHEM PANEL Bili Total 0.7 mg/dL 0.2 - 1.3 01/[address] CHEM PANEL Albumin Lvl 3.1 g/dL 3.5 - 5.0 01/[address] CHEM PANEL ALT 9 unit/L 0 - 65 01/[address] CHEM PANEL AST 21 unit/L 0 - 37 01/[address] CHEM PANEL A/G Ratio 0.7 0.7 - 1.6 01/[address] CHEM PANEL Globulin 4.7 g/dL 2.7 - 4.2 01/[address] CHEM PANEL B/C Ratio 23 6 - 25 01/[address] HEMATOLOGY Plt Morph Normal 01/01 [facility] (01/01/18 12:41 AM) [place] HEMATOLOGY Macrocyte 1+ None Seen 01/01 [facility] *ABN* [place] (01/01/18 12:41 AM) HEMATOLOGY Polychrom Moderate None Seen 01/01 [facility] [address] [place], [place] [address]ABN* Center (01/01/18 12:41 AM) HEMATOLOGY PTT 33.7 s 22.9 - 01/01 [place] 35.8 [facility] HEMATOLOGY PT 13.6 s 12.0 - 01/01 [facility] 14.7 [facility] HEMATOLOGY INR 1.04 0.85 - 01/01 [facility] 1.17 [facility] Chest 1view Chest 1view EXAM: XR CHEST 1 VIEW 01/01 - [facility] DX DX /2017 - [facility] DATE: 01/01/2018 Read by: Jackie Mracum MD Dictated Date/time: 01/01/18 08:19 Electronically Signed [...] Lvl 131 ng/mL 5 - 204 11/29 [facility] STUDY [facility] CHEM PANEL Magnesium 1.8 mg/dL 1.8 - 2.4 11/29 [facility] /2017 [facility] CHEM PANEL Phosphorus 3.1 mg/dL 2.5 - 4.5 11/[address] CHEM PANEL Uric Acid 1.0 mg/dL 2.5 - 7.0 11/[address] CHEM PANEL eGFR 37 11/29 Result Comment: The eGFR is calculated using the CKD-EPI formula. In most young, healthy individuals the eGFR will be >90 mL/ min/1.73m2. The eGFR declines with age. An eGFR of 60-89 may be normal in [facility] mL/min/1. some populations, particularly the elderly, for whom the CKD-EPI formula has not been extensively validated. Use of the eGFR is not recommended in the following populations: [address] Individuals with unstable creatinine concentrations, including [...] Lvl 100 meq/L 95 - 109 11/[address] CHEM PANEL CO2 24 meq/L 24 - 32 02 [facility] CHEM PANEL Creatinine 1.36 mg/dL 0.50 - 02/ [facility] Lvl 1.40 [facility] CHEM PANEL Sodium Lvl 135 meq/L 135 - 145 11/[address] CHEM PANEL Potassium 4.4 meq/L 3.5 - 5.1 11/29 [facility] Lvl [facility] CHEM PANEL BUN 47 mg/dL 7 - 22 11/29 [facility] [address] [place] [address] CHEM PANEL Glucose Lvl 147 mg/dL 70 - 99 11/29 [facility] [address] [place] [address] CHEM PANEL AGAP 15.4 meq/L 10.0 - 11/29 20.0 [facility] CHEM PANEL Calcium Lvl 9.6 mg/dL 8.5 - 10.5 11/[address] HEMATOLOGY WBC 30.9 K/CMM 3.7 - 10.4 11/[address] HEMATOLOGY RDW 21.4 % 11.5 - 11/29 [facility] 14.5 [facility] HEMATOLOGY Platelet 75 K/CMM 133 - 450 11/[address] HEMATOLOGY MPV 9.4 fL 7.4 - 10.4 11/29 [facility] [address] [place] [address] HEMATOLOGY MCH 32.5 pg 27.0 - 02 31.0 [facility] HEMATOLOGY MCHC 32.2 g/dL 32.0 - 11/29 [facility] 36.0 [facility] HEMATOLOGY Hgb 8.1 g/dL 12.0 - 02/ 16.0 [facility] HEMATOLOGY Hct 25.2 % 36.0 - 02/03 48.0 [facility] HEMATOLOGY MCV 100.7 fL 80.0 - 02 98.0 [facility] HEMATOLOGY RBC 2.50 M/CMM 4.20 - 02/03 5.40 [facility] HEMATOLOGY Segs 4.0 % 45.0 - 0203 [facility] 75.0 [facility] HEMATOLOGY Lymphocytes 95.0 % 20.0 - 02/03 [facility] 40.0 [facility] HEMATOLOGY Bands 0.0 % 0.0 - 11.0 11/29 [facility] [address] [place] [address] HEMATOLOGY Monocytes 1.0 % 2.0 - 12.0 11/29 [facility] /2018 [facility] HEMATOLOGY Segs-Bands # 1.2 K/CMM 1.5 - 8.1 11/29 [facility]2017 [facility] HEMATOLOGY Plt Morph Normal 11/29 [facility] (11/29/17 6:20 AM) [place] HEMATOLOGY Atypical 0.0 % <=0.0 % 11/29 [facility] Lymphs [facility] HEMATOLOGY Macrocyte 1+ None Seen 11/29 [facility] [place] (11/29/17 6:20 AM) HEMATOLOGY Anisocyte 1+ None Seen 11/29 [facility] [place] (11/29/17 6:20 AM) HEMATOLOGY Polychrom Slight 11/29 [facility] HEMATOLOGY Lymphocytes 29.4 K/CMM 1.0 - 5.5 11/29 [facility] HEMATOLOGY Monocytes # 0.3 K/CMM 0.0 - 0.8 11/[address] PARATHYROID PTH Intact 88.2 pg/mL 11.1 - 11/29 [facility] PROFILE 79. [facility] REFERENCE [facility] Lab IGVH 11/28 [facility] LAB RESULTS Hypermutat [facility] AnalyisSou rce: BMResults: Mutation Status: UnmutatedI [...] 22:40. PG REFERENCE Test Name IGVH 11/28 [facility] LAB RESULTS HYPERMUTAT 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 Juan Rushing @[id number] on 12/04/2017 /Yen eference lab results scanned in [employer]. Results displayed in Results-La b-REFERENC E LAB-Outsid e Lab Documents (Imaged) under date/time results were scanned. Report sent for scanning on 12/04/2017 00:48. REFERENCE Test Name CLL BY 11/28 [facility] LAB RESULTS FISH [facility] REFERENCE Test Name CHROMOSOME 11/28 [facility] LAB RESULTS ANALYSIS /2017 [facility] REFERENCE Misc Lab Chromosome 11/28 [facility] LAB RESULTS AnalysisSo [facility] urce: Center BMResults & Interpreta tion:Chrom osome [...] 1.09 0.85 - 11/28 [place] 1.17 /2017 [facility] HEMATOLOGY PT 14.1 s 12.0 - 11/28 [place] 14.7 /2017 [facility] HEMATOLOGY PTT 72.4 s 22.9 - 11/28 [place] 35.8 /2018 [facility] BLOOD BANK Antibody Negative 11/28 [facility] RESULTS Scrn /2017 [facility] (11/28/17 3:24 AM) [place] BLOOD BANK ABO/Rh O NEG 11/28 [facility] RESULTS /2018 [facility] Center Bone Marrow Bone Marrow STUDY: Bone marrow aspiration and biopsy 11/28 - [facility] Bio/Aspr CT Bio/Aspr CT /2017 - [facility] Biopsy of retroperitoneal mass Read by: Jayy Israel MD Dictated Date/time: 11/28/17 10:29 Electronically Signed by: Jayy Israel MD 11/28/17 10:58 FINAL REPORT DATE: 11/28/2017 8:00 AM [employer] INDICATION(S): The patient has chronic lymphocytic anemia [...] Temno needle. All needles were then removed. FERRIS WHEEL OPERATOR: Jhonatan ANNUAL GIVING DIRECTOR(S): CONSENT: Written consent obtained after discussing the [...] procedure. HEMATOLOGY INR 1.02 0.85 - 11/28 [facility] 1.17 [facility] HEMATOLOGY PT 13.4 s 12.0 - 02 [facility] 14.7 [facility] HEMATOLOGY PTT 61.0 s 22.9 - 02 [facility] 35.8 /2017 [facility] ANEMIA Ferritin Lvl 151 ng/mL 5 - 204 11/28 [facility] STUDY /2017 [facility] CHEM PANEL Phosphorus 3.1 mg/dL 2.5 - 4.5 11/28 [facility]2017 [facility] CHEM PANEL Magnesium 1.7 mg/dL 1.8 - 2.4 11/28 [facility] CHEM PANEL eGFR 38 11/28 Result Comment: The eGFR is calculated using the CKD-EPI formula. In most young, healthy individuals the eGFR will be >90 mL/ min/1.73m2. The eGFR declines with age. An eGFR of 60-89 may be normal in [facility] mL/min/1.7 some populations, particularly the elderly, for whom the CKD-EPI formula has not been extensively validated. Use of the eGFR is not recommended in the following populations: [address] Individuals with unstable creatinine concentrations, including [...] Lvl 101 meq/L 95 - 109 11/[address] CHEM PANEL Potassium 4.2 meq/L 3.5 - 5.1 11/28 [facility] [address] [place] [address] CHEM PANEL Sodium Lvl 135 meq/L 135 - 145 11/[address] CHEM PANEL BUN 49 mg/dL 7 - 22 11/[address] CHEM PANEL Creatinine 1.31 mg/dL 0.50 - 11/28 [facility] Lvl 1.40 [facility] CHEM PANEL AGAP 12.2 meq/L 10.0 - 11/28 [facility] 20.0 [facility] CHEM PANEL CO2 26 meq/L 24 - 32 11/[address] CHEM PANEL Calcium Lvl 9.2 mg/dL 8.5 - 10.5 11/[address] CHEM PANEL Glucose Lvl 119 mg/dL 70 - 99 11/[address] CHEM PANEL Uric Acid null 2.5 - 7.0 11/[address] HEMATOLOGY Platelet 75 K/CMM 133 - 450 11/[address] HEMATOLOGY MPV 9.3 fL 7.4 - 10.4 11/[address] HEMATOLOGY MCHC 32.5 g/dL 32.0 - 02 [facility] 36.0 [facility] HEMATOLOGY RDW 21.2 % 11.5 - 11/28 [facility] 14.5 [facility] HEMATOLOGY Hgb 7.2 g/dL 12.0 - 11/28 [facility] 16.0 [facility] HEMATOLOGY RBC 2.20 M/CMM 4.20 - 02 [facility] 5.40 /2017 [facility] HEMATOLOGY Hct 22.0 % 36.0 - 11/28 [facility] 48.0 [facility] HEMATOLOGY MCH 32.6 pg 27.0 - 11/28 [facility] 31.0 [facility] HEMATOLOGY MCV 100.2 fL 80.0 - 11/28 [facility] 98.0 [facility] HEMATOLOGY WBC 30.1 K/CMM 3.7 - 10.4 11/[address] HEMATOLOGY Macrocyte 1+ None Seen 11/28 [facility] [address] [place] [address] (11/28/17 1:22 AM) HEMATOLOGY Smudge Moderate None Seen 11/[address] (11/28/17 1:22 AM) HEMATOLOGY Lymphocytes 93.6 % 20.0 - 11/28 [facility] 40.0 [facility] HEMATOLOGY Monocytes 0.6 % 2.0 - 12.0 11/[address] HEMATOLOGY Segs 5.6 % 45.0 - 11/28 [facility] 75.0 [facility] HEMATOLOGY Eosinophils 0.1 % 0.0 - 4.0 11/[address] HEMATOLOGY Lymphocytes 28.2 K/CMM 1.0 - 5.5 11/28 [facility] # [facility] HEMATOLOGY Monocytes # 0.2 K/CMM 0.0 - 0.8 11/[address] HEMATOLOGY Anisocyte 1+ None Seen 11/28 [facility] [address] [place] [address] (11/28/17 1:22 AM) HEMATOLOGY Basophils 0.1 % 0.0 - 1.0 11/28 [facility] [address] [place] [address] HEMATOLOGY Segs-Bands # 1.7 K/CMM 1.5 - 8.1 11/[address] PARATHYROID PTH Intact 103.9 11.1 - 11/28 [facility] PROFILE pg/mL 79.5 [facility] CHEM PANEL Uric Acid 3.5 mg/dL 2.5 - 7.0 11/[address] CHEM PANEL Phosphorus 3.8 mg/dL 2.5 - 4.5 11/[address] HEMATOLOGY PTT 58.9 s 22.9 - 02 [facility] 35.8 /2017 [facility] ANEMIA Ferritin Lvl 146 ng/mL 5 - 204 11/27 [facility] STUDY [facility] CHEM PANEL eGFR 39 11/27 Result Comment: The eGFR is calculated using the CKD-EPI formula. In most young, healthy individuals the eGFR will be >90 mL/ min/1.73m2. The eGFR declines with age. An eGFR of 60-89 may be normal in [facility] mL/min/1. some populations, particularly the elderly, for whom the CKD-EPI formula has not been extensively validated. Use of the eGFR is not recommended in the following populations: [address] Individuals with unstable creatinine concentrations, including [...] Lvl 134 meq/L 135 - 145 11/27 [facility] [address] [place] [address] CHEM PANEL Creatinine 1.30 mg/dL 0.50 - 11/27 [facility] Lvl 1.40 [facility] CHEM PANEL Chloride Lvl 99 meq/L 95 - 109 11/[address] CHEM PANEL Potassium 4.3 meq/L 3.5 - 5.1 11/27 [facility] CHEM PANEL CO2 24 meq/L 24 - 32 11/[address] CHEM PANEL AGAP 15.3 meq/L 10.0 - 11/27 [facility] 20.0 [facility] CHEM PANEL Calcium Lvl 9.7 mg/dL 8.5 - 10.5 11/[address] CHEM PANEL BUN 47 mg/dL 7 - 22 11/[address] CHEM PANEL Glucose Lvl 139 mg/dL 70 - 99 11/[address] HEMATOLOGY INR 1.06 0.85 - 11/27 [facility] 1.17 [facility] HEMATOLOGY PT 13.8 s 12.0 - 02 [facility] 14.7 [facility] HEMATOLOGY Anisocyte 1+ None Seen 11/27 [facility] Medical ABN* Center (11/27/17 2:07 AM) HEMATOLOGY Tot Cell Ct 200 11/27 [facility] HEMATOLOGY Smudge Moderate None Seen 11/27 [facility] *[facility] Center (11/27/17 2:07 AM) HEMATOLOGY Polychrom Moderate None Seen 11/27 [facility] *[facility] Center (11/27/17 2:07 AM) HEMATOLOGY Bands 0.0 % 0.0 - 11.0 11/[address] HEMATOLOGY Plt Morph Normal 11/27 [facility] (11/27/17 2:07 AM) [place] HEMATOLOGY Segs 9.0 % 45.0 - 11/27 [facility] 75.0 [facility] HEMATOLOGY Monocytes 1.0 % 2.0 - 12.0 11/[address] HEMATOLOGY Lymphocytes 90.0 % 20.0 - 02 [facility] 40.0 [facility] HEMATOLOGY Atypical 0.0 % <=0.0 % 11/27 [facility] Lymphs /2017 [facility] HEMATOLOGY Lymphocytes 27.6 K/CMM 1.0 - 5.5 11/27 [facility] # /2017 [facility] HEMATOLOGY Monocytes # 0.3 K/CMM 0.0 - 0.8 11/27 [facility] [address] [place] [address] HEMATOLOGY Segs-Bands # 2.8 K/CMM 1.5 - 8.1 11/[address] HEMATOLOGY RBC 2.19 M/CMM 4.20 - 11/27 [facility] 5.40 /2017 [facility] HEMATOLOGY WBC 30.7 K/CMM 3.7 - 10.4 11/[address] HEMATOLOGY Hgb 7.2 g/dL 12.0 - 02 [facility] 16.0 [facility] HEMATOLOGY MCHC 32.7 g/dL 32.0 - 02 [place] 36.0 [facility] HEMATOLOGY MCH 32.6 pg 27.0 - 02 [facility] 31.0 [facility] HEMATOLOGY MCV 99.9 fL 80.0 - 02 [facility] 98.0 [facility] HEMATOLOGY Hct 21.9 % 36.0 - 11/27 [facility] 48.0 [facility] HEMATOLOGY RDW 22.1 % 11.5 - 02 [facility] 14.5 [facility] HEMATOLOGY Platelet 74 K/CMM 133 - 450 11/[address] HEMATOLOGY MPV 9.1 fL 7.4 - 10.4 11/[address] PARATHYROID PTH Intact 95.6 pg/mL 11.1 - 11/27 [facility] PROFILE 79.5 [facility] CHEM PANEL Vitamin D 40 pg/mL 11/26 Result Comment: Reference Range: [facility] ,25 [place]2 Adults: 21 - 65 [facility] CHEM PANEL Vitamin D3 40 pg/mL 11/26 Result Comment: Performed At: [facility] End[facility] ,25 ([place]) [address] [place] [address] [id number] [facility] Trini Lao MD Ph:[phone] [place] CHEM PANEL Vitamin D2 null 11/26 [facility] ,[place] [facility] PARATHYROID Parathyroid null 11/26 Result Comment: Reference Range: [facility] All Ages: <2.0 Medical Related The PTHrP assay should not be used to exclude cancer or Center Peptide screen tumor patients for humoral hypercalcemia of malignancy (HHM). The results should always be assessed in conjunction with the patient's medical history, clinical examination, and other findings. If test results are clinically discordant, please contact the laboratory. Performed At: [facility] [address] [place] [address] [id number] Trini Lao MD Ph:[phone] HEMATOLOGY Bands 1.0 % 0.0 - 11.0 11/[address] HEMATOLOGY Plt Morph Normal 11/26 [facility] (11/26/17 8:35 AM) [place] HEMATOLOGY Atypical 0.0 % <=0.0 % 11/26 [facility] Lymph [facility] HEMATOLOGY Polychrom Moderate None Seen 11/26 [facility] *ABN* [place] (11/26/17 8:35 AM) HEMATOLOGY Macrocyte 1+ None Seen 11/26 [facility] *ABN* [place] (11/26/17 8:35 AM) HEMATOLOGY Hypochrom 1+ None Seen 11/26 [facility] (11/26/17 8:35 AM) [place] HEMATOLOGY Smudge Moderate None Seen 11/26 [facility] [address] [place], [place] [address]ABN* [place] (11/26/17 8:35 AM) BODY FLUIDS Clarity BF Moderate Cloudy Clear 11/25 [place] /[address] [place] [address] *ABN* [place] (11/25/17 5:24 PM) BODY FLUIDS Color BF Dark Yellow Colorless 11/25 [facility] (11/25/17 5:24 PM) [place] BODY FLUIDS CellCnt BF Synovial 11/25 [facility] (11/25/17 5:24 PM) [place] BODY FLUIDS Macrophage 5 % 11/25 [facility] [place] 16787 /mm3 11/25 [facility] BODY [place] 12591 /mm3 11/25 [facility] BODY FLUIDS Lymph BF 1 % 11/25 [facility] BODY FLUIDS Segs BF 94 % 11/25 [facility] BODY FLUIDS Crystal BF Synovial 11/25 [facility] (11/25/17 5:24 PM) [place] BODY FLUIDS Crystal BF [place] Na Urate Negative 11/25 [facility] *ABN* [place] (11/25/17 5:24 PM) Hand 3 Hand 3 views EXAM: RIGHT HAND 3 VIEWS 11/25 - [facility] DX - Medical EXAM: LEFT HAND 3 VIEWS [place] Read by: Terell Sanchez MD Dictated Date/time: 11/26/17 07:24 DATE: 11/25/2017 6:02 PM [employer] Electronically Signed by: Terell Sanchez MD 11/26/17 [...] EXAM: RIGHT FOOT 3 VIEWS 11/25 - [facility] DX - Medical EXAM: LEFT FOOT 3 VIEWS Center Read by: Terell Sanchez MD Dictated Date/time: 11/26/17 07:30 DATE: 11/25/2017 6:02 PM [employer] Electronically Signed by: Terell Sanchez MD 11/26/17 [...] EXAM: RIGHT FOOT 3 VIEWS 11/25 - [facility] DX - Medical EXAM: LEFT FOOT 3 VIEWS Center Read by: Terell Sanchez MD Dictated Date/time: 11/26/17 07:30 DATE: 11/25/2017 6:02 PM [employer] Electronically Signed by: Terell Sanchez MD 11/26/17 [...] EXAM: RIGHT HAND 3 VIEWS 11/25 - [facility] [employer] [facility] DX - Medical EXAM: LEFT HAND 3 VIEWS Center Read by: Terell Sanchez MD Dictated Date/time: 11/26/17 07:24 DATE: 11/25/2017 6:02 PM [employer] Electronically Signed by: Terell Sanchez MD 11/26/17 [...] Eosinophils 0.1 % 0.0 - 4.0 11/[address] HEMATOLOGY Basophils 0.3 % 0.0 - 1.0 11/[address] HEMATOLOGY Basophils # 0.1 K/CMM 0.0 - 0.2 11/[address] HEMATOLOGY Hypochrom 1+ None Seen 11/[address] (11/25/17 5:26 AM) [place] Knee 3 Knee 3 views EXAM: XR RIGHT KNEE 3 VIEWS 11/24 [facility] views DX DX [facility] DATE: 11/24/2017 10:36 AM [employer] Read by: Davonte Ramires MD Dictated Date/time: [...] effusion. PET CT PET CT Tumor EXAM: DE PET CT Skull Base to Mid Thigh 11/24 - [facility] Tumor imaging-sk /2018 - [facility] This report was dictated by a In Flight Refueling Manager/Fellow. I have personally reviewed the images as Center [facility] well as the Resident's interpretation and agree with the findings. DATE: 11/24/2017 10:48 AM [employer] Read by: Fela Lewis MD Resident: Fela [...] Eosinophils 0.1 % 0.0 - 4.0 11/[address] HEMATOLOGY Basophils # 0.1 K/CMM 0.0 - 0.2 11/[address] HEMATOLOGY Basophils 0.4 % 0.0 - 1.0 11/[address] CHEM PANEL B/C Ratio 26 6 - 25 11/[address] CHEM PANEL A/G Ratio 0.6 0.7 - 1.6 11/[address] CHEM PANEL Globulin 5.2 g/dL 2.7 - 4.2 11/[address] CHEM PANEL Albumin Lvl 2.9 g/dL 3.5 - 5.0 11/[address] CHEM PANEL ALT 11 unit/L 0 - 65 11/[address] CHEM PANEL AST 16 unit/L 0 - 37 11/[address] CHEM PANEL Alk Phos 71 unit/L 39 - 136 11/[address] CHEM PANEL Total 8.1 g/dL 6.4 - 8.4 11/23 [facility] [address] CHEM PANEL Bili Total 0.6 mg/dL 0.2 - 1.3 11/[address] HEMATOLOGY Eosinophils 0.3 K/CMM 0.0 - 0.5 11/23 [facility] /2017 [facility] CHEM PANEL Bili Total 0.8 mg/dL 0.2 - 1.3 11/[address] CHEM PANEL Albumin Lvl 2.7 g/dL 3.5 - 5.0 11/[address] CHEM PANEL Alk Phos 65 unit/L 39 - 136 11/[address] CHEM PANEL AST 24 unit/L 0 - 37 11/[address] CHEM PANEL B/C Ratio 24 6 - 25 11/[address] CHEM PANEL ALT 7 unit/L 0 - 65 11/[address] CHEM PANEL A/G Ratio 0.6 0.7 - 1.6 11/[address] CHEM PANEL Total 7.3 g/dL 6.4 - 8.4 11/22 [facility] Protein [address] CHEM PANEL Globulin 4.6 g/dL 2.7 - 4.2 11/[address] CHEM PANEL Magnesium 2.5 mg/dL 1.8 - 2.4 11/21 [facility] Lvl [address] PARATHYROID Ca Ion WB 1.17 1.05 - 11/21 [facility] PROFILE mMol/L . [facility] PARATHYROID Ca Norm WB 1.19 . - 11/21 [facility] PROFILE mMol/L . [facility] HEMATOLOGY Blasts 0.0 % <=0.0 % 11/[address] PARATHYROID Ca Norm WB 1.22 . - 11/21 [facility] PROFILE mMol/L 1. [facility] PARATHYROID Ca Ion WB 1.21 .05 - 11/21 [facility] PROFILE mMol/L 1. [facility] CARDIAC Total CK 20 unit/L 12 - 191 11/21 [facility] ENZYMES [address] CHEM PANEL LDH 344 unit/L 98 - 192 11/[address] CHEM PANEL Plasma 10 mg/dL 0 - 10 11/21 [facility] Hemoglobin [address] CHEM PANEL A/G Ratio 0.6 0.7 - 1.6 11/[address] CHEM PANEL Globulin 4.7 g/dL 2.7 - 4.2 11/[address] CHEM PANEL AST 17 unit/L 0 - 37 11/[address] CHEM PANEL ALT 8 unit/L 0 - 65 11/[address] CHEM PANEL Albumin Lvl 2.8 g/dL 3.5 - 5.0 11/[address] CHEM PANEL Total 7.5 g/dL 6.4 - 8.4 11/21 [facility] Protein [address] CHEM PANEL Bili 0.6 mg/dL 0.0 - 1.0 11/21 [facility] Indirect [address] CHEM PANEL Bili Direct 0.3 mg/dL 0.0 - 0.3 11/[address] CHEM PANEL Bili Total 0.9 mg/dL 0.2 - 1.3 11/[address] CHEM PANEL Alk Phos 68 unit/L 39 - 136 11/[address] IMMUNOLOGY Haptoglobin 203 mg/dL 16 - 200 11/[address] URINE AND UA Sq Epi None Seen 11/[address] URINE AND UA <=1.0 0.1 - 1.0 11/21 [facility] Urobilinogen mg/dL [address] [place] [address] URINE AND UA Bacteria Few /HPF None Seen 11/21 [facility] STOOL /HPF /[address] [place] [address] URINE AND UA Mucus Few /LPF None Seen 11/21 [facility] STOOL /LPF /[address] [place] [address] URINE AND UA Leuk Est Negative Negative 11/[address] (11/20/17 6:30 PM) [place] URINE AND UA RBC null 0 - 2 11/[address] URINE AND UA Bili Negative Negative 11/[address] *NA* [place] (11/20/17 6:30 PM) URINE AND UA Blood Negative Negative 11/[address] (11/20/17 6:30 PM) [place] URINE AND UA Nitrite Negative Negative 11/[address] (11/20/17 6:30 PM) [place] URINE AND UA WBC 1 /HPF 0 - 5 11/[address] URINE AND UA pH 5.0 5.0 - 8.0 11/[address] URINE AND UA Protein Negative Negative 11/21 [facility] mg/dL mg/dL [address] [place] [address] URINE AND UA Ketones Negative Negative 11/21 [facility] [place] STOOL mg/dL mg/dL /2018 [facility] URINE AND UA Spec Grav 1.005 <=1.030 11/21 [facility] [address] [place] [address] URINE AND UA Color Light Yellow Yellow 11/21 [facility] *NA* [place] (11/20/17 6:30 PM) URINE AND UA Turbidity Clear Clear 11/21 [facility] [address] [place] [address] (11/20/17 6:30 PM) [place] URINE AND UA Glucose Negative Negative 11/21 [facility] STOOL mg/dL mg/dL [facility] URINE CHEM U Sodium 109 meq/L 11/[address] URINE CHEM U Protein null 11/[address] URINE CHEM U Creatinine 10.30 11/21 [facility] mg/dL [facility] URINE CHEM U Prot/Creat null 11/[address] PARATHYROID Ca Ion WB 1.18 1.05 - 11/20 [facility] PROFILE mMol/L . [facility] PARATHYROID Ca Norm WB 1.18 1.05 - 11/20 [facility] PROFILE mMol/L . [facility] CARDIAC BNP 351 pg/mL <=100 11/20 [facility] ENZYMES pg/mL [facility] HEMATOLOGY Blasts 16.0 % <=0.0 % 11/[address] HEMATOLOG[address] Tot Cell Ct 400 11/[address] Chest 1view Chest 1view EXAM: XR CHEST 1 VIEW 11/20 - [facility] DX DX - [facility] DATE: 11/20/2017 4:05 AM [employer] Read by: eMredith Jaimes MD Dictated Date/time: 11/20/17 09:33 Electronically [...] Acid 1.1 mMol/L 0.5 - 2.2 11/20 [facility] Lvl [facility] BLOOD BANK RBC product Product available 11/20 [facility] RESULTS Medical (11/19/17 6:49 PM) [place] BLOOD BANK ABO/Rh O NEG 11/20 [facility] RESULTS [facility] BLOOD BANK Antibody Negative 11/20 [facility] RESULTS Scrn Medical (11/19/17 6:24 PM) [place] CARDIAC Troponin-I null 0.00 - 11/20 [facility] ENZYMES 0.40 [facility] HEMATOLOGY Tot Cell Ct 200 11/20 [facility] HEMATOLOGY Blasts 25.0 % <=0.0 % 11/20 Result Comment: Medical Previuosely Center blast was released HEMATOLOGY D-Dimer 1.72 ug/mL 11/20 [facility] FEU [facility] Chest 1view Chest 1view EXAM: XR CHEST 1 VIEW 11/19 - [facility] DX DX - Medical This report was dictated by a In Flight Refueling Manager/Fellow. I have personally reviewed the images as Center well as the Resident's interpretation and agree with the findings. DATE: 11/19/2017 5:19 PM [employer] Read by: Kike Lea MD Resident: Kike [...] Phosphorus 2.7 mg/dL 2.5 - 4.5 11/[address] CHEM PANEL Magnesium 1.6 mg/dL 1.8 - 2.4 11/02 [facility] [address] [place] [address] ELECTROLYTE AGAP 16.5 meq/L 10.0 - 11/02 [facility] 20.0 [facility] ELECTROLYTE eGFR 44 11/02 Result Comment: The eGFR is calculated using the CKD-EPI formula. In most young, healthy individuals the eGFR will be >90 mL/ min/1.73m2. The eGFR declines with age. An eGFR of 60-89 may be normal in [facility] mL/min/1.7 some populations, particularly the elderly, for whom the CKD-EPI formula has not been extensively validated. Use of the eGFR is not recommended in the following populations: [address] Individuals with unstable creatinine concentrations, including [...] ELECTROLYTE Creatinine 1.18 mg/dL 0.50 - 11/02 [facility] Lvl 1.40 [facility] ELECTROLYTE Sodium Lvl 137 meq/L 135 - 145 11/[address] ELECTROLYTE Chloride Lvl 103 meq/L 95 - 109 11/[address] ELECTROLYTE CO2 22 meq/L 24 - 32 11/[address] ELECTROLYTE Glucose Lvl 155 mg/dL 70 - 99 11/[address] ELECTROLYTE BUN 28 mg/dL 7 - 22 11/[address] ELECTROLYTE Potassium 4.5 meq/L 3.5 - 5.1 11/02 [facility] [address] [place] [address] ELECTROLYTE Calcium Lvl 8.8 mg/dL 8.5 - 10.5 11/[address] HEMATOLOGY INR 1.06 0.85 - 11/02 [facility] 1.17 [facility] HEMATOLOGY PT 13.8 s 12.0 - 11/02 [facility] 14.7 [facility] HEMATOLOGY PTT 34.2 s 22.9 - 11/02 [place] 35.8 [facility] HEMATOLOGY RBC 2.75 M/CMM 4.20 - 11/02 [place] 5.40 /2017 [facility] HEMATOLOGY MCV 95.5 fL 80.0 - 11/02 [facility] 98.0 [facility] HEMATOLOGY MCH 31.2 pg 27.0 - 11/02 [facility] 31.0 [facility] HEMATOLOGY Hgb 8.6 g/dL 12.0 - 11/02 [facility] 16.0 [facility] HEMATOLOGY WBC 33.2 K/CMM 3.7 - 10.4 11/[address] [place] [address] HEMATOLOGY Hct 26.3 % 36.0 - 11/02 [facility] 48.0 [facility] HEMATOLOGY MPV 8.9 fL 7.4 - 10.4 11/[address] HEMATOLOGY Platelet 90 K/CMM 133 - 450 11/[address] HEMATOLOGY RDW 19.2 % 11.5 - 11/02 [facility] 14.5 [facility] HEMATOLOGY MCHC 32.7 g/dL 32.0 - 11/02 [facility] 36.0 [facility] HEMATOLOGY Tot Cell Ct 100 11/[address] [place] [address] HEMATOLOGY Plt Morph Normal 11/02 [facility] (11/02/17 4:34 AM) [place] HEMATOLOGY RBC Morph Normal 11/02 [facility] (11/02/17 4:34 AM) [place] HEMATOLOGY Atypical 0.0 % <=0.0 % 11/02 [facility] Lymphs [facility] HEMATOLOGY Monocytes 2.0 % 2.0 - 12.0 11/[address] HEMATOLOGY Lymphocytes 95.0 % 20.0 - 11/02 40.0 [facility] HEMATOLOGY Bands 0.0 % 0.0 - 11.0 11/[address] HEMATOLOGY Segs 3.0 % 45.0 - 11/02 [facility] 75.0 [facility] HEMATOLOGY Monocytes # 0.7 K/CMM 0.0 - 0.8 11/[address] HEMATOLOGY Segs-Bands # 1.0 K/CMM 1.5 - 8.1 11/[address] HEMATOLOGY Lymphocytes 31.5 K/CMM 1.0 - 5.5 11/02 [facility] # [facility] HEMATOLOGY Smudge Moderate None Seen 11/02 [facility] *ABN* Center (11/02/17 4:34 AM) HEMATOLOGY Hct 23.2 % 36.0 - 11/02 [facility] 48.0 [facility] HEMATOLOGY Hgb 7.7 g/dL 12.0 - 11/02 [facility] 16.0 [facility] BLOOD BANK RBC product Product available 11/01 [facility] (11/01/17 7:10 AM) Center CARDIAC BNP 384 pg/mL <=100 11/01 [facility] ENZYMES pg/mL /2017 [facility] CHEM PANEL Magnesium 2.2 mg/dL 1.8 - 2.4 11/01 [facility] Lvl [facility] CHEM PANEL Globulin 4.5 g/dL 2.7 - 4.2 11/01 [facility] CHEM PANEL A/G Ratio 0.6 0.7 - 1.6 11/01 [facility] CHEM PANEL B/C Ratio 22 6 - 25 11/01 [facility] CHEM PANEL AGAP 17.7 meq/L 10.0 - 11/01 [facility] 20.0 [facility] CHEM PANEL eGFR 54 11/01 Result Comment: The eGFR is calculated using the CKD-EPI formula. In most young, healthy individuals the eGFR will be >90 mL/ min/1.73m2. The eGFR declines with age. An eGFR of 60-89 may be normal in [facility] mL/min/1. some populations, particularly the elderly, for whom the CKD-EPI formula has not been extensively validated. Use of the eGFR is not recommended in the following populations: [address] Individuals with unstable creatinine concentrations, including [...] Total 0.5 mg/dL 0.2 - 1.3 11/01 [facility] CHEM PANEL Alk Phos 58 unit/L 39 - 136 11/01 [facility] CHEM PANEL AST 19 unit/L 0 - 37 11/01 [facility] CHEM PANEL Glucose Lvl 143 mg/dL 70 - 99 11/01 [facility] CHEM PANEL Total 7.2 g/dL 6.4 - 8.4 11/01 [facility] CHEM PANEL Calcium Lvl 8.9 mg/dL 8.5 - 10.5 11/[address] CHEM PANEL CO2 20 meq/L 24 - 32 11/[address] CHEM PANEL Albumin Lvl 2.7 g/dL 3.5 - 5.0 11/01 [facility]2017 [facility] CHEM PANEL ALT 7 unit/L 0 - 65 11/01 [facility] CHEM PANEL Creatinine 0.99 mg/dL 0.50 - 11/01 [place] Lvl 1.40 [facility] CHEM PANEL BUN 22 mg/dL 7 - 22 11/[address] CHEM PANEL Sodium Lvl 142 meq/L 135 - 145 11/01 [facility] [address] [place] [address] CHEM PANEL Chloride Lvl 109 meq/L 95 - 109 11/01 [address] [address] CHEM PANEL Potassium 4.7 meq/L 3.5 - 5.1 11/01 [facility] CHEM PANEL Phosphorus 3.7 mg/dL 2.5 - 4.5 11/01 [facility] [address] [place] [address] HEMATOLOGY INR 1.07 0.85 - 11/01 [facility] 1.17 [facility] HEMATOLOGY PTT 32.8 s 22.9 - 11/01 [facility] 35.8 [facility] HEMATOLOGY PT 13.9 s 12.0 - 11/01 [facility] 14.7 [facility] HEMATOLOGY Platelet 90 K/CMM 133 - 450 11/01 [facility] HEMATOLOGY WBC 26.3 K/CMM 3.7 - 10.4 11/01 [facility] HEMATOLOGY Hgb 6.9 g/dL 12.0 - 11/01 Result [facility] 16. Comment: [facility] Result(s) called to KIRA CRAWFORD at 11/01/2017 03:48 by AAA. Read back OK. HEMATOLOGY RBC 2.23 M/CMM 4.20 - 11/01 [facility] 5.40 [facility] HEMATOLOGY MCH 30.9 pg 27.0 - 11/01 [facility] 31.0 [facility] HEMATOLOGY RDW 19.2 % 11.5 - 11/01 [facility] 14.5 [facility] HEMATOLOGY MCHC 32.3 g/dL 32.0 - 11/01 [facility] 36.0 [facility] HEMATOLOGY MCV 95.6 fL 80.0 - 11/01 [facility] 98.0 [facility] HEMATOLOGY Hct 21.3 % 36.0 - 11/01 [facility] 48.0 [facility] HEMATOLOGY MPV 9.0 fL 7.4 - 10.4 11/[address] HEMATOLOGY Lymphocytes 23.7 K/CMM 1.0 - 5.5 11/01 [facility] # /2017 [facility] HEMATOLOGY Segs-Bands # 2.4 K/CMM 1.5 - 8.1 11/[address] HEMATOLOGY Segs 9.0 % 45.0 - 11/01 [facility] 75.0 [facility] HEMATOLOGY Monocytes # 0.3 K/CMM 0.0 - 0.8 11/[address] HEMATOLOGY Bands 0.0 % 0.0 - 11.0 11/[address] HEMATOLOGY Monocytes 1.0 % 2.0 - 12.0 11/[address] HEMATOLOGY Lymphocytes 90.0 % 20.0 - 11/01 [facility] 40.0 [facility] HEMATOLOGY Atypical 0.0 % <=0.0 % 11/01 [facility] Lymphs [address] [place] [address] HEMATOLOGY Smudge Moderate None Seen 11/01 [facility] [address] [place], [place] [id number]* Center (11/01/17 2:35 AM) PARATHYROID Ca Ion WB 1.24 1.05 - 11/01 [facility] PROFILE mMol/L 11.20 [facility] PARATHYROID Ca Norm WB 1.23 1.05 - 11/01 [facility] PROFILE mMol/L 11.20 [facility] ELECTROLYTE Potassium 4.5 meq/L 3.5 - 5.1 11/01 [facility] [place] [address] CHEM PANEL Phosphorus 5.1 mg/dL 2.5 - 4.5 10/[address] CHEM PANEL Magnesium 1.2 mg/dL 1.8 - 2.4 10/[address] ELECTROLYTE AGAP 15.6 meq/L 10.0 - 10/31 [facility] [address] [place] [address] ELECTROLYTE eGFR 41 10/31 Result Comment: The eGFR is calculated using the CKD-EPI formula. In most young, healthy individuals the eGFR will be >90 mL/ min/1.73m2. The eGFR declines with age. An eGFR of 60-89 may be normal in [facility] mL/min/1. some populations, particularly the elderly, for whom the CKD-EPI formula has not been extensively validated. Use of the eGFR is not recommended in the following populations: [address] Individuals with unstable creatinine concentrations, including [...] ELECTROLYTE Creatinine 1.24 mg/dL 0.50 - 10/31 [facility] Lvl 1.40 [facility] ELECTROLYTE Glucose Lvl 190 mg/dL 70 - 99 10/[address] ELECTROLYTE BUN 23 mg/dL 7 - 22 10/[address] ELECTROLYTE Sodium Lvl 138 meq/L 135 - 145 10/[address] ELECTROLYTE Chloride Lvl 104 meq/L 95 - 109 10/[address] ELECTROLYTE CO2 22 meq/L 24 - 32 10/[address] ELECTROLYTE Calcium Lvl 8.4 mg/dL 8.5 - 10.5 10/[address] HEMATOLOGY MPV 8.9 fL 7.4 - 10.4 10/[address] HEMATOLOGY RDW 19.3 % 11.5 - 10/31 14.5 [facility] HEMATOLOGY Platelet 78 K/CMM 133 - 450 10/[address] HEMATOLOGY MCH 30.7 pg 27.0 - 10/31 [facility] 31.0 [facility] HEMATOLOGY MCV 95.6 fL 80.0 - 10/31 98.0 [facility] HEMATOLOGY MCHC 32.1 g/dL 32.0 - 10/31 36.0 [facility] HEMATOLOGY WBC 19.6 K/CMM 3.7 - 10.4 10/[address] HEMATOLOGY RBC 2.23 M/CMM 4.20 - 10/31 [place] 5.40 [facility] HEMATOLOGY Monocytes # 0.1 K/CMM 0.0 - 0.8 10/31 /2017 [facility] HEMATOLOGY Lymphocytes 18.6 K/CMM 1.0 - 5.5 10/31 [place] # /2017 [facility] HEMATOLOGY Basophils 0.2 % 0.0 - 1.0 10/31 [facility] HEMATOLOGY Segs-Bands # 0.8 K/CMM 1.5 - 8.1 10/31 2017 [facility] HEMATOLOGY Eosinophils 0.2 % 0.0 - 4.0 10/31 [facility] HEMATOLOGY Monocytes 0.5 % 2.0 - 12.0 10/31 [facility] HEMATOLOGY Lymphocytes 95.1 % 20.0 - 10/31 [place] 40.0 [facility] HEMATOLOGY Segs 4.0 % 45.0 - 10/31 [facility] 75.0 [facility] HEMATOLOGY INR 1.22 0.85 - 10/31 [facility] 1.17 [facility] HEMATOLOGY PT 15.5 s 12.0 - 10/31 [facility] 14.7 [facility] HEMATOLOGY PTT 33.5 s 22.9 - 10/31 [place] 35.8 [facility] PARATHYROID Ca Norm WB 1.16 1.05 - 10/31 [facility] PROFILE mMol/L 1. [facility] PARATHYROID Ca Ion WB 1.20 1.05 - 10/31 [facility] PROFILE mMol/L 1. [facility] BLOOD BANK FFP product Product available 10/31 [facility] (10/31/17 1:54 PM) [place] BLOOD BANK RBC product Product available 10/31 [facility] (10/31/17 1:54 PM) [place] Chest 1view Chest 1view EXAM: XR CHEST 1 VIEW 10/31 - [facility] DX DX - [facility] DATE: 10/31/2017 4:56 PM [employer] Read by: Davon Florez MD Dictated Date/time: [...] structures. BLOOD BANK ABO/Rh O NEG 10/31 [facility] RESULTS [address] [place] [address] BLOOD BANK Antibody Negative 10/31 [facility] RESULTS Scrn [facility] (10/31/17 5:29 AM) [place] CHEM PANEL A/G Ratio 0.7 0.7 - 1.6 10/[address] CHEM PANEL Globulin 4.7 g/dL 2.7 - 4.2 10/[address] CHEM PANEL Albumin Lvl 3.1 g/dL 3.5 - 5.0 10/[address] CHEM PANEL Total 7.8 g/dL 6.4 - 8.4 10/[address] CHEM PANEL AST 17 unit/L 0 - 37 10/[address] CHEM PANEL ALT 8 unit/L 0 - 65 10/[address] CHEM PANEL B/C Ratio 18 6 - 25 10/[address] CHEM PANEL Bili Total 0.6 mg/dL 0.2 - 1.3 10/[address] CHEM PANEL Alk Phos 65 unit/L 39 - 136 10/[address] HEMATOLOGY Smudge Moderate None Seen 10/[address] *ABN* [place] (10/31/17 5:29 AM) HEMATOLOGY Anisocyte 1+ None Seen 10/31 [address] [place] (10/31/17 5:29 AM) HEMATOLOGY Basophils 0.1 % 0.0 - 1.0 10/[address] HEMATOLOGY Eosinophils 0.2 % 0.0 - 4.0 10/[address] CHEM PANEL AST 15 unit/L 0 - 37 10/[address] CHEM PANEL Bili Total 0.5 mg/dL 0.2 - 1.3 10/[address] CHEM PANEL Alk Phos 68 unit/L 39 - 136 10/[address] CHEM PANEL ALT 8 unit/L 0 - 65 10/[address] CHEM PANEL Albumin Lvl 3.0 g/dL 3.5 - 5.0 10/[address] CHEM PANEL Total 7.8 g/dL 6.4 - 8.4 10/30 [facility] Protein [address] CHEM PANEL A/G Ratio 0.6 0.7 - 1.6 10/[address] CHEM PANEL Globulin 4.8 g/dL 2.7 - 4.2 10/[address] CHEM PANEL B/C Ratio 18 6 - 25 10/[address] URINE AND UA Sq Epi None Seen 10/[address] URINE AND UA Trans Epi RARE <=0 10/[address] URINE AND UA Nitrite Negative Negative 10/[address] (10/29/17 9:10 PM) [place] URINE AND UA 8.0 mg/dL 0.1 - 1.0 10/30 [facility] Urobilinogen /[address] [place] [address] URINE AND UA Blood Negative Negative 10/[address] (10/29/17 9:10 PM) [place] URINE AND UA Bili Negative Negative 10/[address] *NA* [place] (10/29/17 9:10 PM) URINE AND UA Ketones Negative Negative 10/30 [facility] mg/dL mg/dL /[address] [place] [address] URINE AND UA Bacteria Occasional None Seen 10/30 [facility] /HPF /HPF /[address] [place] [address] URINE AND UA RBC null 0 - 2 10/[address] URINE AND UA WBC 2 /HPF 0 - 5 10/[address] URINE AND UA Hyal Cast 3 /LPF 0 - 2 10/[address] URINE AND UA Mucus Few /LPF None Seen 10/30 [facility] STOOL /LPF /[address] [place] [address] URINE AND UA Protein 10 mg/dL Negative 10/30 [facility] mg/dL /[address] [place] [address] URINE AND UA pH 6.0 5.0 - 8.0 10/[address] URINE AND UA Spec Grav 1.013 <=1.030 10/[address] URINE AND UA Turbidity Clear Clear 10/[address] (10/29/17 9:10 PM) Center URINE AND UA Leuk Est Moderate Negative 10/30 [facility] *ABN* [place] (10/29/17 9:10 PM) URINE AND UA Color Yellow Yellow 10/30 [facility] *NA* [place] (10/29/17 9:10 PM) URINE AND UA Glucose Negative Negative 10/30 [facility] STOOL mg/dL mg/dL /2017 [facility] CARDIAC BNP 223 pg/mL <=100 10/29 [facility] ENZYMES pg/mL /2017 [facility] HEMATOLOGY Bands 0.0 % 0.0 - 11.0 10/29 [facility]2017 [facility] HEMATOLOGY Atypical 11.0 % <=0.0 % 10/29 [facility] Lymphs /2017 [facility] HEMATOLOGY Anisocyte 1+ None Seen 10/29 [facility] [place] (10/29/17 5:38 PM) HEMATOLOGY Eosinophils 0.0 K/CMM 0.0 - 0.5 10/29 [facility] HEMATOLOGY Basophils 0.0 % 0.0 - 1.0 10/[address] HEMATOLOGY Eosinophils 0.0 % 0.0 - 4.0 10/[address] HEMATOLOGY Blasts 3.0 % <=0.0 % 10/[address] HEMATOLOGY Basophils # 0.0 K/CMM 0.0 - 0.2 10/[address] Chest 1view Chest 1view EXAM: XR CHEST 1 VIEW 10/29 - [facility] DX DX - Medical This report was dictated by a In Flight Refueling Manager/Fellow. I have personally reviewed the images as Center well as the Resident's interpretation and agree with the findings. DATE: 10/29/2017 8:46 PM [employer] Read by: Humberto Roche MD Resident: Humberto [...] POC 1.3 mg/dL 0.5 - 1.4 10/21 [facility] Creatinine /2016 [facility] Center CHEM PANEL eGFR 39 10/21 Result Comment: The eGFR is calculated using the CKD-EPI formula. In most young, healthy individuals the eGFR will be >90 mL/ min/1.73m2. The eGFR declines with age. An eGFR of 60-89 may be normal in [facility] mL/min/1.7 some populations, particularly the elderly, for whom the CKD-EPI formula has not been extensively validated. Use of the eGFR is not recommended in the following populations: [place] [address] Center Individuals with unstable creatinine concentrations, including [...] should be multiplied by the estimated BMI. Chest/Abd/P Chest/Abd/Pe EXAM: CTA CHEST WITH AND WITHOUT CONTRAST 10/21 - [facility] marissa TAVR lvis TAVR /2016 - Medical CTA CTA EXAM: CTA ABDOMEN AND PELVIS WITH AND WITHOUT CONTRAST Center Read by: Pascual Meredith MD Dictated Date/time: 10/21/17 11:56 DATE: 10/21/2017 7:24 AM [employer] Electronically Signed by: Pascual Meredith MD 10/21/17 14:01 FINAL REPORT INDICATION:82 yearsFemale - Aortic Stenosis COMPARISON: EXAM: CTA CHEST WITH AND WITHOUT CONTRAST EXAM: CTA ABDOMEN AND PELVIS WITH AND WITHOUT CONTRAST DATE: 10/21/2017 7:24 AM [employer] INDICATION:82 yearsFemale - Aortic Stenosis COMPARISON: None. [...] Rushing through primordial message immediately after dictation. Heart/coron Heart/lua EXAM: CARDIAC COMPUTED TOMOGRAPHY ANGIOGRAPHY - [facility] art TAVR /2017 - Medical TAVR CTA CTA Center DATE: 10/21/2017 Read by: Nasir Katz MD Dictated Date/time: 10/21/17 12:49 Electronically Signed by: Nasir Katz MD 10/21/17 12:53 FINAL REPORT INDICATION: Aortic stenosis. COMPARISON: None TECHNIQUE: Contrast imaging was performed on a [employer] [address] scanner utilizing a [...] the presence of in stent restenosis or barrow flow-limiting stenosis in this vessel. LCx: Normal [...] lower limit of normal. Ejection Fraction: 51% IFR=065 cc ESV=72 cc SV=74 cc Other: AICD leads noted in the right heart chambers. Lung quijano to the extent visualized in limited study: Please see radiologist interpretation for extracardiac findings. IMPRESSION: Aortic valve disease. Coronary artery disease status post PCI. BLOOD BANK Antibody Negative 05/29 [facility] RESULTS Scrn /2015 [facility] (05/29/16 6:13 AM) [place] BLOOD BANK ABO/Rh O NEG 05/29 [facility] RESULTS /2016 [facility] CHEM PANEL Magnesium 1.8 mg/dL 1.8 - 2.4 05/29 [facility] Lvl /2016 [facility] CHEM PANEL eGFR 26 05/29 Result Comment: The eGFR is calculated using the CKD-EPI formula. In most young, healthy individuals the eGFR will be >90 mL/ min/1.73m2. The eGFR declines with age. An eGFR of 60-89 may be normal in [facility] mL/min/1.7 some populations, particularly the elderly, for whom the CKD-EPI formula has not been extensively validated. Use of the eGFR is not recommended in the following populations: [address] Individuals with unstable creatinine concentrations, including [...] Lvl 9.3 mg/dL 8.5 - 10.5 05/29 [facility] CHEM PANEL Creatinine 1.83 mg/dL 0.50 - 05/29 [facility] Lvl 1.40 [facility] CHEM PANEL Glucose Lvl 121 mg/dL 70 - 99 05/29 [facility] CHEM PANEL Chloride Lvl 104 meq/L 95 - 109 05/29 [facility] CHEM PANEL Potassium 4.2 meq/L 3.5 - 5.1 05/29 [facility] CHEM PANEL CO2 26 meq/L 24 - 32 05/29 [facility] CHEM PANEL Sodium Lvl 139 meq/L 135 - 145 05/29 [facility] CHEM PANEL BUN 24 mg/dL 7 - 22 05/29 [facility] CHEM PANEL AGAP 13.2 meq/L 10.0 - 05/29 20.0 [facility] HEMATOLOGY Hgb 12.1 g/dL 12.0 - 05/29 [facility] 16.0 [facility] HEMATOLOGY RBC 4.30 M/CMM 4.20 - / [facility] 5.40 [facility] HEMATOLOGY Hct 36.9 % 36.0 - 05/29 48.0 [facility] HEMATOLOGY WBC 16.5 K/CMM 3.7 - 10.4 05/29 [facility] HEMATOLOGY RDW 15.7 % 11.5 - 05/29 14.5 [facility] HEMATOLOGY MCHC 32.8 g/dL 32.0 - 05/29 [facility] [place] 36.0 /2015 [facility] HEMATOLOGY MPV 8.8 fL 7.4 - 10.4 05/29 [facility] HEMATOLOGY Platelet 96 K/CMM 133 - 450 05/29 [facility] HEMATOLOGY MCH 28.2 pg 27.0 - 05/29 31.0 /2015 [facility] HEMATOLOGY MCV 85.9 fL 80.0 - 05/29 [place] 98.0 /2015 [facility] HEMATOLOGY PTT 30.9 s 22.9 - 05/29 [place] 35.8 /2015 [facility] HEMATOLOGY PT 14.4 s 12.0 - 05/29 [place] 14.7 /2015 [facility] HEMATOLOGY INR 1.09 0.85 - 05/29 [place] 1.17 /2015 [facility] HEMATOLOGY Segs-Bands # 3.0 K/CMM 1.5 - 8.1 05/29 [facility] HEMATOLOGY Basophils 0.8 % 0.0 - 1.0 05/29 [facility] HEMATOLOGY Eosinophils 1.2 % 0.0 - 4.0 05/29 [facility] HEMATOLOGY Lymphocytes 12.7 K/CMM 1.0 - 5.5 05/29 [facility] HEMATOLOGY Basophils # 0.1 K/CMM 0.0 - 0.2 05/29 [facility] HEMATOLOGY Eosinophils 0.2 K/CMM 0.0 - 0.5 05/29 [facility] HEMATOLOGY Monocytes # 0.5 K/CMM 0.0 - 0.8 05/29 [facility] HEMATOLOGY Segs 18.3 % 45.0 - 05/29 [place] 75.0 /2016 [facility] HEMATOLOGY Monocytes 2.9 % 2.0 - 12.0 05/29 [facility] HEMATOLOGY Lymphocytes 76.8 % 20.0 - 08/ [place] 40.0 2016 [facility] Spine Spine lumbar EXAM: XR LUMBAR SPINE 2 VIEWS 04/20 - OPID lumbar 2 or 2 or 3 views /2013 - [place] 3 views DATE: 2014-04-20 0953 hours Read [...] 1.6 mg/dL 1.8 - 2.4 01/20 LOW [facility] Lvl /2012 [facility] CHEMISTRY eGFR 44 01/20 NA 1Result Comment: The eGFR is calculated using the CKD-EPI formula. In most young, healthy individuals the eGFR will be > 90 mL/min/1.73m2. The eGFR declines with age. An eGFR of 60-89 may be normal in [facility] mL/min/1.7 /2012 some populations, particularly the elderly, for whom the CKD-EPI formula has not been extensively validated. Use of the eGFR is not recommended in the following populations: [place] [address] Center Individuals with unstable creatinine concentrations, including [...] AGAP 8.5 meq/L 10.0 - 01/20 LOW [facility] 20.0 [facility] CHEMISTRY Calcium Lvl 9.4 mg/dL 8.5 - 10.5 01/20 [facility] CHEMISTRY Chloride Lvl 106 meq/L 95 - 109 01/20 [facility] CHEMISTRY CO2 28 meq/L 24 - 32 01/20 [facility] CHEMISTRY Sodium Lvl 138 meq/L 135 - 145 01/20 [facility] CHEMISTRY Potassium 4.5 meq/L 3.5 - 5.1 01/20 Normal [facility] CHEMISTRY Glucose Lvl 182 mg/dL 70 - 99 01/20 [place] 3Interpretive Data: Adult reference range values reflect the clinical guidelines of the [place] [employer]. [facility] CHEMISTRY BUN 18 mg/dL 7 - 01/20 Normal [facility] CHEMISTRY Creatinine 1.2 mg/dL 0.5 - 1.4 01/20 Normal [facility] HEMATOLOGY MCH 26.0 pg 27.0 - 01/20 LOW [facility] 31.0 Medical Center HEMATOLOGY MCHC 31.9 g/dL 32.0 - 01/20 LOW [facility] 36.0 Medical Center HEMATOLOGY RDW 16.8 % 11.5 - 01/20 [facility] [place] 14.5 [facility] HEMATOLOGY Hgb 12.5 g/dL 12.0 - 01/20 Normal [facility] 16.0 [facility] Center HEMATOLOGY Hct 39.2 % 36.0 - 01/20 Normal [facility] 48.0 Medical Center HEMATOLOGY MCV 81.6 fL 81.0 - 01/20 Normal [facility] 99.0 /2012 Medical Center HEMATOLOGY WBC 7.0 K/CMM 3.7 - 10.4 01/20 Normal [facility] Center HEMATOLOGY RBC 4.81 M/CMM 4.20 - 01/20 Normal [facility] 5.40 /2012 [facility] Center HEMATOLOGY Platelet 91 K/CMM 133 - 450 01/20 LOW [facility] HEMATOLOGY MPV 9.3 fL 7.4 - 10.4 01/20 Normal [facility] HEMATOLOGY Basophils 2.0 % 0.0 - 1.0 01/20 [place] [facility] HEMATOLOGY Lymphocytes 15.2 % 20.0 - 01/20 LOW [place] 40.0 [facility] HEMATOLOGY Segs 68.7 % 45.0 - 01/20 Normal [place] 75.0 /2012 [facility] HEMATOLOGY Eosinophils 3.2 % 0.0 - 4.0 01/20 Normal [facility] HEMATOLOGY Monocytes 10.9 % 2.0 - 12.0 01/20 Normal [facility] HEMATOLOGY Eosinophils 0.2 K/CMM 0.0 - 0.5 01/20 Normal [facility] HEMATOLOGY Monocytes # 0.8 K/CMM 0.0 - 0.8 01/20 Normal [facility] HEMATOLOGY Basophils # 0.1 K/CMM 0.0 - 0.2 01/20 Normal [facility] HEMATOLOGY Lymphocytes 1.1 K/CMM 1.0 - 5.5 01/20 Normal [facility] HEMATOLOGY Segs-Bands # 4.8 K/CMM 1.5 - 8.1 01/20 Normal [facility] BLOOD BANK Antibody Negative 01/19 Normal [facility] RESULTS Scr [facility] (01/19/2013 06:26:48) [place] BLOOD BANK ABO/Rh O NEG 01/19 Unknown [facility] RESULTS [facility] CHEMISTRY Magnesium 1.4 mg/dL 1.8 - 2.4 01/19 LOW [facility] Lvl [facility] CHEMISTRY AGAP 10.1 meq/L 10.0 - 01/19 Normal [facility] 20.0 [facility] CHEMISTRY eGFR 44 01/19 NA 2Result Comment: The eGFR is calculated using the CKD-EPI formula. In most young, healthy individuals the eGFR will be > 90 mL/min/1.73m2. The eGFR declines with age. An eGFR of 60-89 may be normal in [facility] mL/min/1.7 some populations, particularly the elderly, for whom the CKD-EPI formula has not been extensively validated. Use of the eGFR is not recommended in the following populations: [place] [address] Center Individuals with unstable creatinine concentrations, including [...] 29 meq/L 24 - 32 01/19 Normal [facility] CHEMISTRY Calcium Lvl 9.5 mg/dL 8.5 - 10.5 01/19 Normal [facility] Center CHEMISTRY BUN 22 mg/dL 7 - 22 01/19 Normal [facility] Center CHEMISTRY Sodium Lvl 141 meq/L 135 - 145 01/19 Normal [facility] CHEMISTRY Potassium 4.1 meq/L 3.5 - 5.1 01/19 Normal [facility] CHEMISTRY Creatinine 1.2 mg/dL 0.5 - 1.4 01/19 Normal [facility] CHEMISTRY Glucose Lvl 78 mg/dL 70 - 99 01/19 Normal 4Interpretive Data: Adult reference range values reflect the clinical guidelines of the [place] [employer]. [facility] CHEMISTRY Chloride Lvl 106 meq/L 95 - 109 01/19 Normal [facility] HEMATOLOGY PT 14.7 s 12.0 - 01/19 Normal [facility] 14.7 [facility] HEMATOLOGY PTT 32.3 s 22.9 - 01/19 Normal 6Interpretive [facility] 35.8 Data: [facility] Range: 57 - 92 Seconds HEMATOLOGY INR 1.13 0.85 - 01/19 Normal 5Interpretive Data: RECOMMENDED RANGES FOR PROTIME INR: [facility] 1. 2.0-3.0 for most medical and surgical thromboembolic states. Medical 2.5-3.5 for artificial heart valves and recurrent embolism. Center INR SHOULD BE USED ONLY FOR PATIENTS ON STABLE ANTICOAGULANT THERAPY. HEMATOLOGY RBC 4.97 M/CMM 4.20 - 01/19 Normal [facility] 5.40 /2012 [facility] HEMATOLOGY Hgb 13.1 g/dL 12.0 - 01/19 Normal [facility] 16.0 [facility] HEMATOLOGY Platelet 89 K/CMM 133 - 450 01/19 LOW [facility] HEMATOLOGY MPV 8.8 fL 7.4 - 10.4 01/19 Normal [facility] HEMATOLOGY MCV 81.8 fL 81.0 - 01/19 Normal [facility] 99.0 [facility] HEMATOLOGY Hct 40.6 % 36.0 - 01/19 Normal [facility] 48.0 [facility] HEMATOLOGY RDW 17.2 % 11.5 - 01/19 HI [facility] 14.5 [facility] Center HEMATOLOGY MCH 26.3 pg 27.0 - 01/19 LOW [facility] 31.0 Medical Center HEMATOLOGY MCHC 32.2 g/dL 32.0 - 01/19 Normal [place] 36.0 /2012 [facility] HEMATOLOGY WBC 5.7 K/CMM 3.7 - 10.4 01/19 Normal [facility] HEMATOLOGY Basophils 0.6 % 0.0 - 1.0 01/19 Normal [facility] HEMATOLOGY Monocytes 11.5 % 2.0 - 12.0 01/19 Normal [facility] HEMATOLOGY Eosinophils 3.1 % 0.0 - 4.0 01/19 Normal [facility] HEMATOLOGY Monocytes # 0.7 K/CMM 0.0 - 0.8 01/19 Normal [facility] HEMATOLOGY Lymphocytes 1.9 K/CMM 1.0 - 5.5 01/19 Normal [facility] HEMATOLOGY Segs-Bands # 2.9 K/CMM 1.5 - 8.1 01/19 Normal [facility] HEMATOLOGY Eosinophils 0.2 K/CMM 0.0 - 0.5 01/19 Normal [facility] HEMATOLOGY Lymphocytes 33.7 % 20.0 - 01/19 Normal [place] 40.0 [facility] HEMATOLOGY Segs 51.1 % 45.0 - 01/19 Normal [facility] 75.0 [facility] HEMATOLOGY PT 19.4 s 12.0 - 07/31 [facility] [place] 14.7 [facility] HEMATOLOGY INR 1.62 0.85 - 07/31 [place] 7Interpretive Data: RECOMMENDED RANGES FOR PROTIME INR: [facility] 1. 2.0-3.0 for most medical and surgical thromboembolic states. Medical 2.5-3.5 for artificial heart valves and recurrent embolism. Center INR SHOULD BE USED ONLY FOR PATIENTS ON STABLE ANTICOAGULANT THERAPY. BEDSIDE Gluc POC 148 mg/dL 70 - 99 07/31 [place] 1Interpretive [facility] GLUCOSE Lifscn Data: Medical TESTING Center Upper Reportable Limit: 200 mg/dL. BEDSIDE Comment1 Notify 07/31 NA Reddy PICKARD RN/ /2011 Medical TESTING Center BEDSIDE Gluc POC 192 mg/dL 70 - 99 07/31 [place] 2Interpretive [facility] GLUCOSE Lifscn Data: Medical TESTING Center Upper Reportable Limit: 200 mg/dL. BEDSIDE Comment1 Notify 07/31 NA Reddy PICKARD RN/ Medical TESTING Center BEDSIDE Gluc POC 106 mg/dL 70 - 99 07/30 [place] 3Interpretive [facility] GLUCOSE Lif[employer]n /2011 Data: Medical TESTING Center Upper Reportable Limit: 200 mg/dL. HEMATOLOGY PB Smear Peripheral 07/30 NA [facility] Path blood Medical smear Center shows hypochromi c anemia with anisopoiki locytsosis , a few elliptocyt es, no increase in schistocyt es, slight polychroma nohemy, mild thrombocyt openia. Impression : (1) no evidence of microangio pathic hemolysis, (2) RBC morphology is sugestive of iron deficiency anemia vs. anemia of chronic disease. CPT: 07278 HEMATOLOGY Platelet 94 K/CMM 133 - 450 07/30 [facility] HEMATOLOGY RDW 16.1 % 11.5 - 07/30 [facility] [facility] 14.5 [facility] HEMATOLOGY MPV 9.5 fL 7.4 - 10.4 07/30 [facility] HEMATOLOGY RBC 3.68 M/CMM 4.20 - 07/30 [facility] 5.40 /2011 [facility] HEMATOLOGY WBC 5.4 K/CMM 3.7 - 10.4 07/30 [facility] HEMATOLOGY MCV 89.6 fL 81.0 - 07/30 [facility] 99.0 [facility] HEMATOLOGY Hgb 11.0 g/dL 12.0 - 07/30 [facility] 16.0 [facility] HEMATOLOGY Hct 32.9 % 36.0 - 07/30 [facility] 48.0 /2011 [facility] HEMATOLOGY MCHC 33.5 g/dL 32.0 - 07/30 [facility] 36.0 [facility] HEMATOLOGY MCH 30.0 pg 27.0 - 10 [facility] 31.0 [facility] HEMATOLOGY Lymphocytes 19.2 % 20.0 - 10 [facility] 40.0 [facility] HEMATOLOGY Segs 65.5 % 45.0 - 10 [facility] 75.0 [facility] HEMATOLOGY Basophils 0.7 % 0.0 - 1.0 07/30 [facility] HEMATOLOGY Eosinophils 4.1 % 0.0 - 4.0 07/30 [facility] HEMATOLOGY Monocytes 10.5 % 2.0 - 12.0 07/30 [facility] HEMATOLOGY Monocytes # 0.6 K/CMM 0.0 - 0.8 07/30 Normal [facility] HEMATOLOGY Lymphocytes 1.0 K/CMM 1.0 - 5.5 07/30 Normal [facility] HEMATOLOGY Segs-Bands # 3.5 K/CMM 1.5 - 8.1 07/30 Normal [facility] HEMATOLOGY Basophils # 0.0 K/CMM 0.0 - 0.2 07/30 Normal [facility] HEMATOLOGY Eosinophils 0.2 K/CMM 0.0 - 0.5 07/30 Normal [facility] HEMATOLOGY PT 18.3 s 12.0 - 07/30 [facility] 14[facility]7 [facility] HEMATOLOGY INR 1.50 0.85 - 07/30 [place] 8Interpretive Data: RECOMMENDED RANGES FOR PROTIME INR: [facility] . 2.0-3.0 for most medical and surgical thromboembolic states. Medical 2.5-3.5 for artificial heart valves and recurrent embolism. Center INR SHOULD BE USED ONLY FOR PATIENTS ON STABLE ANTICOAGULANT THERAPY. BEDSIDE Comment1 Notify 07/30 NA [facility] GLUCOSE RN/MD Medical [facility] Center HEMATOLOGY Monocytes # 0.5 K/CMM 0.0 - 0.8 07/30 [facility] HEMATOLOGY Lymphocytes 1.0 K/CMM 1.0 - 5.5 07/30 [facility] HEMATOLOGY Segs-Bands # 2.4 K/CMM 1.5 - 8.1 07/30 [facility] HEMATOLOGY Eosinophils 0.1 K/CMM 0.0 - 0.5 07/30 Normal [facility] HEMATOLOGY Basophils # 0.0 K/CMM 0.0 - 0.2 07/30 Normal [facility] HEMATOLOGY Lymphocytes 23.7 % 20.0 - 07/30 [facility] 40.0 [facility] HEMATOLOGY Monocytes 11.9 % 2.0 - 12.0 07/30 [facility] HEMATOLOGY Eosinophils 3.2 % 0.0 - 4.0 07/30 [facility] HEMATOLOGY Segs 60.6 % 45.0 - 07/30 Normal [facility] 75.0 [facility] HEMATOLOGY Basophils 0.6 % 0.0 - 1.0 07/30 Normal [facility] HEMATOLOGY PTT 40.0 s 22.9 - 07/30 [place] 10Interpretiv [facility] 35.8 /2011 e Data: [facility] Therapeutic Range: 57 - 92 Seconds HEMATOLOGY PT 19.4 s 12.0 - 10 HI [place] 14.7 /2011 [facility] HEMATOLOGY INR 1.62 0.85 - 07/30 [place] 9Interpretive Data: RECOMMENDED RANGES FOR PROTIME INR: [facility] 1. 2.0-3.0 for most medical and surgical thromboembolic states. Medical 2.5-3.5 for artificial heart valves and recurrent embolism. Center INR SHOULD BE USED ONLY FOR PATIENTS ON STABLE ANTICOAGULANT THERAPY. HEMATOLOGY MCV 89.0 fL 81.0 - 07/30 Normal [facility] 99.0 [facility] HEMATOLOGY RDW 15.4 % 11.5 - 10 [facility] 14.5 [facility] HEMATOLOGY MCH 30.0 pg 27.0 - 07/30 [facility] 31.0 [facility] HEMATOLOGY MCHC 33.8 g/dL 32.0 - 10 Normal [facility] 36.0 [facility] HEMATOLOGY Platelet 81 K/CMM 133 - 450 07/30 LOW [facility] HEMATOLOGY MPV 9.2 fL 7.4 - 10.4 07/30 Normal [facility] HEMATOLOGY RBC 3.50 M/CMM 4.20 - 10 [facility] 5.40 /2011 [facility] HEMATOLOGY WBC 4.0 K/CMM 3.7 - 10.4 07/30 Normal [facility] HEMATOLOGY Hgb 10.5 g/dL 12.0 - 07/30 [facility] 16.0 [facility] HEMATOLOGY Hct 31.1 % 36.0 - 10 [facility] 48.0 /2011 [facility] IMMUNOLOGY Hep Bs Ag Negative Negative 07/30 [facility] *NA* Center (07/29/2012 20:05:00) IMMUNOLOGY Hep A IgM Negative Negative 07/30 [facility] [place] (07/29/2012 20:05:00) IMMUNOLOGY Hep B Core Negative Negative 07/30 [facility] [place] (07/29/2012 20:05:00) IMMUNOLOGY Hep C Ab Negative Negative 07/30 [facility] Medical *NA* Center (07/29/2012 20:05:00) CHEMISTRY AGAP 14.2 meq/L 10.0 - 07/29 Normal [facility] 20.0 [facility] CHEMISTRY Calcium Lvl 9.2 mg/dL 8.5 - 10.5 07/29 Normal [facility] CHEMISTRY CO2 26 meq/L 24 - 32 07/29 Normal [facility] CHEMISTRY Glucose Lvl 143 mg/dL 70 - 99 07/29 [place] 4Interpretive Data: Adult reference range values reflect the clinical guidelines of the [place] [employer]. [facility] CHEMISTRY Chloride Lvl 108 meq/L 95 - 109 07/29 Normal [facility] CHEMISTRY Potassium 4.2 meq/L 3.5 - 5.1 07/29 Normal [facility] CHEMISTRY Sodium Lvl 144 meq/L 135 - 145 07/29 Normal [facility] CHEMISTRY Creatinine 0.9 mg/dL 0.5 - 1.4 07/29 Normal [facility] CHEMISTRY BUN 17 mg/dL 7 - 22 07/29 Normal [facility] HEMATOLOGY Eosinophils 3.8 % 0.0 - 4.0 07/29 Normal [facility] HEMATOLOGY Monocytes 12.4 % 2.0 - 12.0 07/29 [place] [facility] HEMATOLOGY Lymphocytes 28.6 % 20.0 - 07/29 Normal [facility] 40.0 [facility] HEMATOLOGY Segs 54.6 % 45.0 - 07/29 Normal [facility] 75.0 [facility] HEMATOLOGY Segs-Bands # 1.9 K/CMM 1.5 - 8.1 07/29 Normal [facility] HEMATOLOGY Basophils 0.6 % 0.0 - 1.0 07/29 Normal [facility] HEMATOLOGY Eosinophils 0.1 K/CMM 0.0 - 0.5 07/29 Normal [facility] HEMATOLOGY Monocytes # 0.4 K/CMM 0.0 - 0.8 07/29 Normal [facility] HEMATOLOGY Lymphocytes 1.0 K/CMM 1.0 - 5.5 07/29 Normal [facility] HEMATOLOGY Basophils # 0.0 K/CMM 0.0 - 0.2 07/29 Normal [facility] HEMATOLOGY RDW 15.3 % 11.5 - 10 [place] 14.5 /2011 [facility] HEMATOLOGY Platelet 76 K/CMM 133 - 450 10 LOW [facility] HEMATOLOGY MPV 8.9 fL 7.4 - 10.4 10 Normal [facility] HEMATOLOGY MCH 30.3 pg 27.0 - 10 Normal [facility] 31.0 /2011 [facility] HEMATOLOGY WBC 3.4 K/CMM 3.7 - 10.4 10 LOW [facility] HEMATOLOGY RBC 3.45 M/CMM 4.20 - 10 [facility] [place] 5.40 /2011 [facility] HEMATOLOGY MCHC 34.0 g/dL 32.0 - 10 Normal [facility] 36.0 [facility] HEMATOLOGY Hgb 10.4 g/dL 12.0 - 10 [facility] 16.0 /2011 [facility] HEMATOLOGY Hct 30.7 % 36.0 - 10 [facility] 48.0 /2011 [facility] HEMATOLOGY MCV 88.9 fL 81.0 - 10 Normal [facility] 99.0 [facility] CHEMISTRY Total CK 75 unit/L 12 - 191 07/27 Normal [facility] CHEMISTRY AGAP 16.3 meq/L 10.0 - 07/27 Normal [facility] 20.0 [facility] CHEMISTRY CO2 26 meq/L 24 - 32 07/27 Normal [facility] Center CHEMISTRY Calcium Lvl 8.8 mg/dL 8.5 - 10.5 07/27 Normal [facility] Center CHEMISTRY Chloride Lvl 105 meq/L 95 - 109 07/27 Normal [facility] CHEMISTRY BUN 14 mg/dL 7 - 22 07/27 Normal [facility] CHEMISTRY Creatinine 0.8 mg/dL 0.5 - 1.4 07/27 Normal [facility] CHEMISTRY Glucose Lvl 152 mg/dL 70 - 99 07/27 [place] 5Interpretive Data: Adult reference range values reflect the clinical guidelines of the [place] [employer]. [facility] CHEMISTRY Sodium Lvl 143 meq/L 135 - 145 07/27 Normal [facility] CHEMISTRY Potassium 4.3 meq/L 3.5 - 5.1 07/27 Normal [facility] CHEMISTRY CHD Risk 2.65 3.90 - 07/27 LOW [facility] 5.80 /2011 [facility] Center CHEMISTRY LDL 36 mg/dL 0 - 129 07/27 Normal [facility] CHEMISTRY Trig 123 mg/dL 0 - 200 07/27 Normal [facility] CHEMISTRY HDL 37 mg/dL >=35 07/27 Normal [facility] CHEMISTRY Chol 98 mg/dL 120 - 200 10 LOW [facility] HEMATOLOGY PTT 43.9 s 22.9 - 07/24 [place] 11Interpretiv [facility] 35.8 /2011 e Data: [facility] Therapeutic Range: 57 - 92 Seconds CHEMISTRY A/G Ratio 0.9 0.7 - 1.6 07/22 Normal [facility] CHEMISTRY Globulin 3.4 g/dL 2.0 - 4.0 07/22 Normal [facility] CHEMISTRY B/C Ratio 15 6 - 25 07/22 Normal [facility] CHEMISTRY AGAP 14.2 meq/L 10.0 - 07/22 Normal 20.0 [facility] Center CHEMISTRY ALT 18 unit/L 0 - 65 07/22 Normal [facility] CHEMISTRY Alk Phos 82 unit/L 39 - 136 07/22 Normal [facility] CHEMISTRY Glucose Lvl 158 mg/dL 70 - 99 07/22 [place] 6Interpretive Data: Adult reference range values reflect the clinical guidelines of the [place] [employer]. [facility] CHEMISTRY Albumin Lvl 2.9 g/dL 3.5 - 5.0 07/22 LOW [facility] CHEMISTRY Sodium Lvl 139 meq/L 135 - 145 07/22 Normal [facility] CHEMISTRY Potassium 4.2 meq/L 3.5 - 5.1 07/22 Normal [facility] CHEMISTRY BUN 15 mg/dL 7 - 22 07/22 Normal [facility] CHEMISTRY CO2 27 meq/L 24 - 32 07/22 Normal [facility] CHEMISTRY Calcium Lvl 9.1 mg/dL 8.5 - 10.5 07/22 Normal [facility] CHEMISTRY Creatinine 1.0 mg/dL 0.5 - 1.4 07/22 Normal [facility] CHEMISTRY AST 15 unit/L 0 - 37 07/22 Normal [facility] CHEMISTRY Total 6.3 g/dL 6.4 - 8.4 07/22 LOW [facility] CHEMISTRY Chloride Lvl 102 meq/L 95 - 109 07/22 Normal [facility] CHEMISTRY Bili Total 0.5 mg/dL 0.2 - 1.3 07/22 Normal [facility] CHEMISTRY Magnesium 1.5 mg/dL 1.8 - 2.4 07/22 LOW [facility] Lvl [facility] CHEMISTRY Phosphorus 3.4 mg/dL 2.5 - 4.5 07/22 Normal [facility] HEMATOLOGY PTT 38.5 s 22.9 - 07/22 [place] 12Interpretiv [facility] 35.8 /2011 e Data: [facility] Therapeutic Range: 57 - 92 Seconds BEDSIDE Comment1 Notify 07/22 NA [facility] GLUCOSE RN/MD /2011 Medical TESTING Center BEDSIDE Gluc POC 189 mg/dL 70 - 99 07/22 [place] 1Interpretive [facility] GLUCOSE Lifscn Data: Medical TESTING Center Upper Reportable Limit: 200 mg/dL. URINALYSIS UA WBC 78 /HPF 0 - 5 07/22 [facility] URINALYSIS UA RBC 2 /HPF 0 - 2 07/22 Normal [facility] URINALYSIS UA Sq Epi Many /LPF Few 07/22 [facility] Medical *ABN* Center (07/21/2012 20:17:00) URINALYSIS UA [place] Yeast Occasional /HPF None Seen 07/22 [facility] *ABN* Center (07/21/2012 20:17:00) URINALYSIS UA Bacteria Few /HPF None Seen 07/22 NA [facility] *NA* Center (07/21/2012 20:17:00) URINALYSIS UA Hyal Cast 3 /LPF 0 - 2 07/22 [facility] Center URINALYSIS UA Leuk Est Large Negative 07/22 [facility] Medical *ABN* Center (07/21/2012 20:17:00) URINALYSIS UA Nitrite Negative Negative 07/22 Normal [facility] (07/21/2012 20:17:00) Center URINALYSIS UA 2.0 mg/dL 0.1 - 1.0 07/22 [facility] Urobilinogen /2011 [facility] URINALYSIS UA Blood Negative Negative 07/22 Normal Medical (07/21/2012 20:17:00) Center URINALYSIS UA Bili Negative Negative 07/22 NA Medical *NA* Center (07/21/2012 20:17:00) URINALYSIS UA pH 6.5 5.0 - 8.0 07/22 Normal [facility] URINALYSIS UA Turbidity Slight Clear 07/22 ABN Medical *ABN* Center (07/21/2012 20:17:00) URINALYSIS UA Glucose Negative mg/dL Negative 07/22 [facility] Medical *NA* Center (07/21/2012 20:17:00) URINALYSIS UA Ketones Negative mg/dL Negative 07/22 NA Medical *NA* Center (07/21/2012 20:17:00) URINALYSIS UA Protein Negative mg/dL Negative 07/22 Normal Medical (07/21/2012 20:17:00) Center URINALYSIS UA Color Yellow Yellow 07/22 [facility] Medical *NA* Center (07/21/2012 20:17:00) URINALYSIS UA Spec Grav 1.011 <=1.030 07/22 Normal [facility] Center Microbiolog Culture: 07/22 [facility] y Medical Center BEDSIDE Gluc POC 158 mg/dL 70 - 99 07/21 [place] 2Interpretive [facility]SE [facility] Data: [facility] TEST[facility] Center Upper Reportable Limit: 200 mg/dL. BEDSIDE Gluc POC 212 mg/dL 70 - 99 07/21 [place] 3Interpretive [facility] Data: Medical TESTING Center Upper Reportable Limit: 200 mg/dL. BEDSIDE Comment1 Notify 07/21 [facility] GLUCOSE RN/MD Medical TESTING Center CHEMISTRY Ca Norm mgdL 4.80 mg/dL 4.65 - 07/21 Normal [facility] 5. Medical Center CHEMISTRY Ca Ion mgdL 4.60 mg/dL 4.65 - 07/21 LOW [facility] 5. Medical Center CHEMISTRY Ca Norm 1.20 1.16 - 07/21 Normal [place] mMol/L 1. Medical Center CHEMISTRY Ca Ion 1.15 1.16 - 07/21 LOW [place] mMol/L 1. Medical Center CHEMISTRY CO2 23 meq/L - 07/21 LOW [facility] CHEMISTRY Calcium Lvl 9.6 mg/dL 8.5 - 10.5 07/21 Normal [facility] CHEMISTRY BUN 13 mg/dL 7 - 22 07/21 Normal [facility] CHEMISTRY Sodium Lvl 141 meq/L 135 - 145 07/21 Normal [facility] Center CHEMISTRY Glucose Lvl 156 mg/dL 70 - 99 07/21 [place] 4Interpretive Data: Adult reference range values reflect the clinical guidelines of the [place] [employer]. Medical Center CHEMISTRY Chloride Lvl 105 meq/L 95 - 109 07/21 Normal [facility] Center CHEMISTRY Potassium 4.0 meq/L 3.5 - 5.1 07/21 Normal [facility] Center CHEMISTRY Creatinine 0.6 mg/dL 0.5 - 1.4 07/21 Normal [facility] CHEMISTRY AGAP 17.0 meq/L 10.0 - 07/21 Normal [facility] . [facility] CHEMISTRY Phosphorus 3.3 mg/dL 2.5 - 4.5 07/21 Normal [facility] CHEMISTRY Magnesium 1.4 mg/dL 1.8 - 2.4 07/21 LOW [facility] HEMATOLOGY Monocytes # 0.5 K/CMM 0.0 - 0.8 07/21 Normal [facility] HEMATOLOGY Eosinophils 0.2 K/CMM 0.0 - 0.5 07/21 Normal [facility] HEMATOLOGY Basophils # 0.0 K/CMM 0.0 - 0.2 07/21 [facility] HEMATOLOGY Monocytes 8.8 % 2.0 - 12.0 07/21 Normal [facility] HEMATOLOGY Eosinophils 2.5 % 0.0 - 4.0 07/21 Normal [facility] HEMATOLOGY Basophils 0.6 % 0.0 - 1.0 07/21 Normal [facility] HEMATOLOGY Segs-Bands # 4.3 K/CMM 1.5 - 8.1 07/21 [facility] HEMATOLOGY Lymphocytes 1.0 K/CMM 1.0 - 5.5 07/21 Normal [facility] HEMATOLOGY Segs 71.7 % 45.0 - 07/21 Normal [facility] 75.0 [facility] Center HEMATOLOGY Lymphocytes 16.4 % 20.0 - 07/21 [facility] 40.0 /2011 [facility] HEMATOLOGY RBC 3.59 M/CMM 4.20 - 07/21 [facility] 5.40 /2011 [facility] HEMATOLOGY WBC 6.1 K/CMM 3.7 - 10.4 07/21 Normal /2011 [facility] HEMATOLOGY RDW 14.5 % 11.5 - 07/21 Normal [facility] 14.5 /2011 [facility] HEMATOLOGY Platelet 137 K/CMM 133 - 450 07/21 Normal [facility] HEMATOLOGY MPV 8.4 fL 7.4 - 10.4 07/21 Normal /2011 [facility] HEMATOLOGY Hgb 10.7 g/dL 12.0 - 07/21 [facility] 16.0 /2011 [facility] HEMATOLOGY Hct 32.0 % 36.0 - 07/21 [facility] 48.0 /2011 [facility] HEMATOLOGY MCV 89.1 fL 81.0 - 07/21 Normal [facility] 99.0 /2011 [facility] HEMATOLOGY MCH 29.9 pg 27.0 - 07/21 Normal [facility] 31.0 [facility] HEMATOLOGY MCHC 33.5 g/dL 32.0 - 07/21 Normal [facility] 36.0 /2011 [facility] HEMATOLOGY INR 1.06 0.85 - 07/21 Normal 13Interpretive Data: RECOMMENDED RANGES FOR PROTIME INR: [facility] 1.17 2.0-3.0 for most medical and surgical thromboembolic states. Medical 2.5-3.5 for artificial heart valves and recurrent embolism. Center INR SHOULD BE USED ONLY FOR PATIENTS ON STABLE ANTICOAGULANT THERAPY. HEMATOLOGY PT 14.0 s 12.0 - 07/21 Normal [facility] 14.7 [facility] Center BEDSIDE Comment1 Notify 07/21 NA [place] GLUCOSE RN/MD /2011 Medical TESTING Center CHEMISTRY Magnesium 1.7 mg/dL 1.8 - 2.4 07/20 [facility] [place] Lvl [facility] Center CHEMISTRY Phosphorus 3.6 mg/dL 2.5 - 4.5 07/20 Normal [facility] CHEMISTRY Ca Norm mgdL 5.32 mg/dL .65 - 07/20 HI [facility] 5. [facility] CHEMISTRY Ca Ion mgdL 5.08 mg/dL 4.65 - 07/20 Normal [facility] 5. [facility] Center CHEMISTRY Ca Ion 1.27 1.16 - 07/20 Normal [place] mMol/L 1.30 Medical Center CHEMISTRY Ca Norm 1.33 1.16 - 07/20 HI [place] mMol/L 1. [facility] Center CHEMISTRY AGAP 14.1 meq/L 10.0 - 07/20 Normal [facility] 20.0 [facility] Center CHEMISTRY Glucose Lvl 147 mg/dL 70 - 99 07/20 [place] 5Interpretive Data: Adult reference range values reflect the clinical guidelines of the [place] [employer]. Medical Center CHEMISTRY BUN 13 mg/dL 7 - 22 07/20 Normal [facility] Center CHEMISTRY Potassium 4.1 meq/L 3.5 - 5.1 07/20 Normal [facility] l [facility] Center CHEMISTRY Creatinine 0.9 mg/dL 0.5 - 1.4 07/20 Normal [facility] Center CHEMISTRY Sodium Lvl 138 meq/L 135 - 145 07/20 Normal [facility] Center CHEMISTRY Calcium Lvl 9.3 mg/dL 8.5 - 10.5 07/20 Normal [facility] Center CHEMISTRY CO2 27 meq/L 24 - 32 07/20 Normal [facility] Center CHEMISTRY Chloride Lvl 101 meq/L 95 - 109 07/20 Normal [facility] HEMATOLOGY Lymphocytes 14.3 % 20.0 - 07/20 LOW [facility] 40.0 [facility] HEMATOLOGY Segs 74.5 % 45.0 - 07/20 Normal [facility] 75.0 [facility] HEMATOLOGY Basophils 0.7 % 0.0 - 1.0 07/20 Normal [facility] HEMATOLOGY Monocytes 7.3 % 2.0 - 12.0 07/20 Normal [facility] HEMATOLOGY Eosinophils 3.2 % 0.0 - 4.0 07/20 Normal [facility] HEMATOLOGY Basophils # 0.1 K/CMM 0.0 - 0.2 07/20 Normal [facility] HEMATOLOGY Monocytes # 0.5 K/CMM 0.0 - 0.8 07/20 Normal [facility] HEMATOLOGY Eosinophils 0.2 K/CMM 0.0 - 0.5 07/20 Normal [facility] Center HEMATOLOGY Segs-Bands # 5.2 K/CMM 1.5 - 8.1 07/20 Normal [facility] HEMATOLOGY Lymphocytes 1.0 K/CMM 1.0 - 5.5 07/20 Normal [facility] # /2011 Medical Center HEMATOLOGY PTT 34.5 s 22.9 - 07/20 Normal 16Interpretiv [place] 35.8 /2011 e Data: [facility] Therapeutic Range: 57 - 92 Seconds HEMATOLOGY PT 13.2 s 12.0 - 07/20 Normal [facility] 14.7 /2011 [facility] HEMATOLOGY INR 0.98 0.85 - 07/20 Normal 14Interpretive Data: RECOMMENDED RANGES FOR PROTIME INR: [facility] . 2.0-3.0 for most medical and surgical thromboembolic states. Medical 2.5-3.5 for artificial heart valves and recurrent embolism. Center INR SHOULD BE USED ONLY FOR PATIENTS ON STABLE ANTICOAGULANT THERAPY. HEMATOLOGY MCHC 33.4 g/dL 32.0 - 07/20 Normal [facility] 36.0 /2011 [facility] HEMATOLOGY MPV 8.3 fL 7.4 - 10.4 07/20 Normal [facility] HEMATOLOGY RDW 14.8 % 11.5 - 07/20 [facility] 14.5 [facility] HEMATOLOGY Platelet 151 K/CMM 133 - 450 07/20 Normal [facility] HEMATOLOGY MCH 30.1 pg 27.0 - 07/20 Normal [facility] 31.0 /2011 [facility] HEMATOLOGY Hct 34.2 % 36.0 - 07/20 LOW [facility] 48.0 /2011 [facility] HEMATOLOGY RBC 3.79 M/CMM 4.20 - 07/20 LOW [facility] 5.40 [facility] HEMATOLOGY Hgb 11.4 g/dL 12.0 - 07/20 LOW [facility] 16.0 /2011 [facility] HEMATOLOGY WBC 6.9 K/CMM 3.7 - 10.4 07/20 Normal [facility] HEMATOLOGY MCV 90.1 fL 81.0 - 07/20 Normal [facility] 99.0 /2011 [facility] CHEMISTRY Ca Norm 1.35 1. - 07/19 [facility] [place] mMol/L 1. [facility] CHEMISTRY Ca Ion mgdL 5.08 mg/dL .07/19 Normal [facility] 5. [facility] CHEMISTRY Ca Norm mgdL 5.40 mg/dL 4. - 07/19 [facility] 5. [facility] CHEMISTRY Ca Ion 1.27 1. - 07/19 Normal [place] mMol/L . Medical Center CHEMISTRY AGAP 14.1 meq/L 10.0 - 07/19 Normal [place] 20.0 Medical Center CHEMISTRY Glucose Lvl 163 mg/dL 70 - 99 07/19 [place] 6Interpretive Data: Adult reference range values reflect the clinical guidelines of the [place] [employer]. Medical Center CHEMISTRY Calcium Lvl 9.3 mg/dL 8.5 - 10.5 07/19 Normal [facility] CHEMISTRY CO2 26 meq/L 24 - 32 07/19 Normal [facility] CHEMISTRY Chloride Lvl 102 meq/L 95 - 109 07/19 Normal [facility] Center CHEMISTRY Potassium 4.1 meq/L 3.5 - 5.1 07/19 Normal [facility] CHEMISTRY BUN 14 mg/dL 7 - 22 07/19 Normal [facility] CHEMISTRY Sodium Lvl 138 meq/L 135 - 145 07/19 Normal [facility] CHEMISTRY Creatinine 0.9 mg/dL 0.5 - 1.4 07/19 Normal [facility] Center CHEMISTRY Phosphorus 2.9 mg/dL 2.5 - 4.5 07/19 Normal [facility] Center CHEMISTRY Magnesium 1.5 mg/dL 1.8 - 2.4 07/19 LOW [facility] CHEMISTRY Troponin-T 0.859 0.000 - 07/19 CRIT 7Result [facility] ng/mL 0.100 Comment: [facility] Result(s) called to ya mckeon07/19/20 12 05:04:48 CDT at _ by tac. Read back OK. HEMATOLOGY Segs-Bands # 4.5 K/CMM 1.5 - 8.1 07/19 Normal [facility] HEMATOLOGY Eosinophils 0.2 K/CMM 0.0 - 0.5 07/19 Normal [facility] HEMATOLOGY Basophils # 0.0 K/CMM 0.0 - 0.2 07/19 Normal [facility] HEMATOLOGY Lymphocytes 0.8 K/CMM 1.0 - 5.5 07/19 LOW [facility] HEMATOLOGY Monocytes # 0.5 K/CMM 0.0 - 0.8 07/19 Normal [facility] HEMATOLOGY Eosinophils 3.6 % 0.0 - 4.0 07/19 Normal [facility] HEMATOLOGY Segs 75.1 % 45.0 - 07/19 [facility] [place] 75.0 /2011 [facility] HEMATOLOGY Lymphocytes 12.8 % 20.0 - 07/19 [facility] [place] 40.0 /2011 [facility] HEMATOLOGY Basophils 0.7 % 0.0 - 1.0 07/19 Normal [facility] HEMATOLOGY Monocytes 7.8 % 2.0 - 12.0 07/19 Normal [facility] HEMATOLOGY MPV 8.4 fL 7.4 - 10.4 07/19 Normal [facility] HEMATOLOGY RDW 14.7 % 11.5 - 07/19 [facility] 14.5 [facility] HEMATOLOGY Platelet 142 K/CMM 133 - 450 07/19 Normal [facility] HEMATOLOGY MCHC 34.0 g/dL 32.0 - 07/19 Normal [facility] 36.0 [facility] HEMATOLOGY WBC 6.0 K/CMM 3.7 - 10.4 07/19 Normal [facility] HEMATOLOGY RBC 3.51 M/CMM 4.20 - 07/19 [facility] 5.40 /2011 [facility] HEMATOLOGY MCV 88.0 fL 81.0 - 07/19 Normal [facility] 99.0 /2011 [facility] HEMATOLOGY Hgb 10.5 g/dL 12.0 - 07/19 [facility] 16.0 [facility] HEMATOLOGY MCH 29.9 pg 27.0 - 07/19 Normal [facility] 31.0 [facility] HEMATOLOGY Hct 30.9 % 36.0 - 07/19 [facility] 48.0 [facility] HEMATOLOGY PTT 31.8 s 22.9 - 07/19 Normal 17Interpretiv [facility] 35.8 e Data: [facility] Therapeutic Range: 57 - 92 Seconds HEMATOLOGY PT 13.3 s 12.0 - 07/19 Normal [facility] 14.7 [facility] HEMATOLOGY INR 0.99 0.85 - 07/19 Normal 15Interpretive Data: RECOMMENDED RANGES FOR PROTIME INR: [facility] 1. 2.0-3.0 for most medical and surgical thromboembolic states. Medical 2.5-3.5 for artificial heart valves and recurrent embolism. Center INR SHOULD BE USED ONLY FOR PATIENTS ON STABLE ANTICOAGULANT THERAPY. CHEMISTRY POC A Hct 30.0 % 36.0 - 07/18 [facility] 48.0 Medical Center CHEMISTRY POC A O2 Sat 97.0 % 95.0 - 07/18 Normal [facility] 100.0 Medical Center CHEMISTRY POC A Na 133 meq/L 135 - 145 07/18 LOW [facility] CHEMISTRY POC A HCO3 27 mMol/L 22 - 07/18 [facility] CHEMISTRY POC A BE 4 mMol/L -2-2 - 2 07/18 [facility] CHEMISTRY POC A %FIO2 21.0 % 18.0 - 07/18 Normal [place] 100.0 Medical Center CHEMISTRY POC A Ca Ion 1.21 1.16 - 07/18 Normal [facility] mMol/L 1.30 Medical Center CHEMISTRY POC A K 4.0 meq/L 3.5 - 5.1 07/18 Normal Medical Center CHEMISTRY POC A PCO2 36 mm[Hg] 35 - 45 07/18 Normal [facility] [place] CHEMISTRY POC A Source ART 07/18 NA Medical Center CHEMISTRY POC A Temp 37.0 Erlinda 07/18 NA Medical Center CHEMISTRY POC A pH 7.49 7.35 - 07/18 HI [place] 7.45 Medical Center CHEMISTRY POC A PO2 81 mm[Hg] 80 - 100 07/18 Normal [facility] HEMATOLOGY PTT 34.9 s 22.9 - 07/18 Normal 18Interpretiv [facility] 35.8 /2011 e Data: [facility] Therapeutic Range: 57 - 92 Seconds BLOOD BANK Antibody Negative 07/17 Normal [facility] RESULTS Scr Medical (07/17/2012 07:00:00) Center BLOOD BANK ABO/Rh O NEG 07/17 Unknown [facility] CHEMISTRY Troponin-I 3.07 ng/mL 0.00 - 07/17 CRIT 10Result [place] 0.40 Comment: [facility] Critical [facility] Result(s) called to hossein guillory at 07/17/2012 04:01:26 CDT bygavino. Read back OK. CHEMISTRY A/G Ratio 0.9 0.7 - 1.6 07/17 Normal [facility] CHEMISTRY Globulin 2.9 g/dL 2.0 - 4.0 07/17 Normal [facility] CHEMISTRY Bili 0.3 mg/dL 0.0 - 1.0 07/17 Normal [facility] CHEMISTRY AST 29 unit/L 0 - 37 07/17 Normal Medical [facility] CHEMISTRY Bili Direct 0.2 mg/dL 0.0 - 0.3 07/17 Normal Medical [facility] CHEMISTRY Alk Phos 66 unit/L 39 - 136 07/17 Normal [facility] Center CHEMISTRY Total 5.6 g/dL 6.4 - 8.4 07/17 LOW Medical Center CHEMISTRY Bili Total 0.5 mg/dL 0.2 - 1.3 07/17 Normal [facility] Center CHEMISTRY Albumin Lvl 2.7 g/dL 3.5 - 5.0 07/17 LOW [facility] Center CHEMISTRY ALT 21 unit/L 0 - 65 07/17 Normal [facility] Center CHEMISTRY Total CK 71 unit/L 12 - 191 07/17 Normal [facility] Center CHEMISTRY Troponin-T 1.430 0.000 - 07/17 [...] Total CK 66 unit/L - 07/16 Normal [facility] CHEMISTRY Troponin-T 1.180 0.000 - 07/16 CRIT 9Result [place] ng/mL 0.100 Comment: Medical critical Center called x [phone] (busy line, 2x)07/16/2012 19:31:52 CDT, aamir guillory 07/16/2012 19:34:27 CDT by gissel. read back ok. CHEMISTRY Troponin-I 4.03 ng/mL 0.00 - 07/16 CRIT 12Result [place] 0.40 Comment: Medical Called to Center Stefani Hale at 07/16/2012 13:14:12 CDT called by db read back ok CHEMISTRY Total CK 70 unit/L - 07/16 Normal [facility] Center CHEMISTRY CK MB Index 2.4 0.0 - 2.5 07/16 Normal [facility] Center CHEMISTRY CK MB 2.3 ng/mL 0.5 - 3.6 07/16 Normal [facility] Center CHEMISTRY CK MB Index 2.8 0.0 - 2.5 07/15 [facility] CHEMISTRY CK MB 2.4 ng/mL 0.5 - 3.6 07/15 Normal [facility] Center CHEMISTRY Total CK 86 unit/L 12 - 191 07/15 Normal Medical Center CHEMISTRY Troponin-T 1.320 0.000 - 07/15 [...] back OK. BEDSIDE Comment1 Notify 07/15 NA [facility] GLUCOSE RN/MD /2011 Medical TESTING Center BEDSIDE Gluc POC 172 mg/dL 70 - 99 07/15 [place] 1Interpretive [facility] GLUCOSE [facility] /2011 Data: Medical TESTING Center Upper Reportable Limit: 200 mg/dL. CHEMISTRY Phosphorus 2.8 mg/dL 2.5 - 4.5 07/15 Normal [facility] CHEMISTRY T4 Free 1.58 ng/dL 0.76 - 07/15 HI [place] 1.46 /2011 Medical Center CHEMISTRY TSH 1.120 0.360 - 07/15 Normal [place] uIU/mL 3.740 /2011 [facility] Center CHEMISTRY Magnesium 1.7 mg/dL 1.8 - 2.4 07/15 LOW [place] Lvl [facility] Center CHEMISTRY Hgb A1C 7.3 % [...] 32 unit/L 0 - 37 07/15 Normal [facility] CHEMISTRY Total 5.9 g/dL 6.4 - 8.4 07/15 LOW [facility] CHEMISTRY Bili Total 0.6 mg/dL 0.2 - 1.3 07/15 Normal [facility] CHEMISTRY Calcium Lvl 8.8 mg/dL 8.5 - 10.5 07/15 Normal [facility] CHEMISTRY CO2 30 meq/L 24 - 32 07/15 Normal [facility] CHEMISTRY Glucose Lvl 125 mg/dL 70 - 99 07/15 [place] 3Interpretive Data: Adult reference range values reflect the clinical guidelines of the [place] [employer]. [facility] CHEMISTRY Alk Phos 71 unit/L 39 - 136 07/15 Normal [facility] CHEMISTRY Albumin Lvl 2.6 g/dL 3.5 - 5.0 07/15 LOW [facility] CHEMISTRY ALT 23 unit/L 0 - 65 07/15 Normal [facility] CHEMISTRY Chloride Lvl 99 meq/L 95 - 109 07/15 Normal [facility] CHEMISTRY Potassium 4.2 meq/L 3.5 - 5.1 07/15 Normal [facility] CHEMISTRY Sodium Lvl 139 meq/L 135 - 145 07/15 Normal [facility] CHEMISTRY Creatinine 0.8 mg/dL 0.5 - 1.4 07/15 Normal [facility] CHEMISTRY BUN 19 mg/dL 7 - 22 07/15 Normal [facility] CHEMISTRY A/G Ratio 0.8 0.7 - 1.6 07/15 Normal [facility] CHEMISTRY Globulin 3.3 g/dL 2.0 - 4.0 07/15 Normal [facility] CHEMISTRY B/C Ratio 24 6 - 25 07/15 [facility] CHEMISTRY AGAP 14.2 meq/L 10.0 - 07/15 [facility] 20. [facility] HEMATOLOGY Basophils # 0.0 K/CMM 0.0 - 0.2 07/15 Normal [facility] HEMATOLOGY Eosinophils 0.3 K/CMM 0.0 - 0.5 07/15 Normal [place] # /2012 Medical Center HEMATOLOGY Monocytes # 0.5 K/CMM 0.0 - 0.8 07/15 Normal /2011 [facility] HEMATOLOGY Lymphocytes 1.1 K/CMM 1.0 - 5.5 07/15 Normal [place] # /2011 [facility] Center HEMATOLOGY Eosinophils 4.7 % 0.0 - 4.0 / [place] /2011 [facility] HEMATOLOGY Monocytes 7.7 % 2.0 - 12.0 07/15 Normal /2011 [facility] HEMATOLOGY Segs-Bands # 4.0 K/CMM 1.5 - 8.1 07/15 Normal /2011 [facility] HEMATOLOGY Basophils 0.5 % 0.0 - 1.0 07/15 Normal /2011 [facility] HEMATOLOGY Lymphocytes 18.3 % 20.0 - 07/15 LOW [place] 40.0 /2011 [facility] HEMATOLOGY Segs 68.8 % 45.0 - 07/15 Normal [place] 75.0 [facility] HEMATOLOGY PT 13.3 s 12.0 - 07/15 Normal [place] 14.7 [facility] HEMATOLOGY PTT 36.8 s 22.9 - 07/15 [place] 8Interpretive [facility] 35.8 Data: [facility] Center Range: 57 - 92 Seconds HEMATOLOGY INR 0.99 0.85 - 07/15 Normal 7Interpretive Data: RECOMMENDED RANGES FOR PROTIME INR: [facility] 1. 2.0-3.0 for most medical and surgical thromboembolic states. Medical 2.5-3.5 for artificial heart valves and recurrent embolism. Center INR SHOULD BE USED ONLY FOR PATIENTS ON STABLE ANTICOAGULANT THERAPY. HEMATOLOGY MCV 90.0 fL 81.0 - 07/15 Normal [place] 99.0 [facility] HEMATOLOGY MCH 30.0 pg 27.0 - 07/15 Normal [place] 31.0 [facility] HEMATOLOGY Hct 32.3 % 36.0 - 07/15 LOW [place] 48.0 /2011 [facility] HEMATOLOGY Hgb 10.8 g/dL 12.0 - 07/15 LOW [place] 16.0 /2011 [facility] HEMATOLOGY MPV 8.4 fL 7.4 - 10.4 07/15 Normal /2011 [facility] HEMATOLOGY MCHC 33.3 g/dL 32.0 - 07/15 Normal [facility] [place] 36.0 /2011 [facility] HEMATOLOGY Platelet 184 K/CMM 133 - 450 07/15 Normal [facility] HEMATOLOGY RDW 15.1 % 11.5 - 07/15 HI [facility] 14.5 /2011 [facility] HEMATOLOGY RBC 3.59 M/CMM 4.20 - 07/15 LOW [facility] 5.40 /2011 [facility] HEMATOLOGY WBC 5.8 K/CMM 3.7 - 10.4 07/15 Normal [facility] IMMUNOLOGY Prealbumin 12.1 mg/dL 18.0 - 07/15 LOW [facility] 45.0 /2011 [facility] URINALYSIS UA <=1.0 0.1 - 1.0 07/15 NA [facility] Urobilinogen mg/dL /2011 Medical
*NA*< Center br/>(07/15 06:06:00) <sup> </sup> URINALYSIS UA Mucus Few /LPF None Seen 07/15 [facility] *NA* [place] (2012 06:06:00) URINALYSIS UA Bacteria Occasional /HPF None Seen 07/15 [facility] Medical *NA* [place] (2012 06:06:00) URINALYSIS UA WBC null 0 - 5 07/15 Normal [facility] URINALYSIS UA RBC 1 /HPF 0 - 2 07/15 Normal [facility] URINALYSIS UA Sq Epi Occasional /LPF Few 07/15 [facility] *NA* [place] (2012 06:06:00) URINALYSIS UA Leuk Est Negative Negative 07/15 Normal [facility] (2012 06:06:00) Center URINALYSIS UA Glucose Negative mg/dL Negative 07/15 [facility] Medical *NA* [place] (2012 06:06:00) URINALYSIS UA Blood Negative Negative 07/15 Normal [facility] (2012 06:06:00) Center URINALYSIS UA Nitrite Negative Negative 07/15 Normal [facility] (2012 06:06:00) Center URINALYSIS UA Bili Negative Negative 07/15 [facility] *NA* [place] (2012 06:06:00) URINALYSIS UA Ketones Negative mg/dL Negative 07/15 NA Medical *NA* Center (2012 06:06:00) URINALYSIS UA pH 5.0 5.0 - 8.0 07/15 Normal [facility] URINALYSIS UA Spec Grav 1.011 <=1.030 07/15 Normal [facility] URINALYSIS UA Turbidity Clear Clear 07/15 Normal [facility] (2012 06:06:00) Center URINALYSIS UA Protein Negative mg/dL Negative 07/15 Normal [facility] (2012 06:06:00) Center URINALYSIS UA Color Yellow Yellow 07/15 [facility] Medical *NA* Center (2012 06:06:00) Microbiolog Culture: 07/15 [facility] Center BEDSIDE Gluc POC 125 mg/dL 70 - 99 07/15 [place] 2Interpretive [facility] GLUCOSE [facility] Data: Medical TESTING Center Upper Reportable Limit: 200 mg/dL. BEDSIDE Comment1 Notify 07/15 [facility] Reddy GLUCOSE KARLA Medical TESTING Center BEDSIDE Gluc POC 171 mg/dL 70 - 99 07/15 [place] 1Interpretive [facility] GLUCOSE [facility] Data: Medical TESTING Center Upper Reportable Limit: 200 mg/dL. BEDSIDE Gluc POC 104 mg/dL 70 - 99 07/14 [place] 2Interpretive [facility] GLUCOSE [facility] Data: Medical TESTING Center Upper Reportable Limit: 200 mg/dL. BEDSIDE Comment1 Notify 07/14 [facility] [place] GLUCOSE KARLA /2011 Medical TESTING Center BEDSIDE Gluc POC 171 mg/dL 70 - 99 07/14 [place] 3Interpretive [facility] GLUCOSE [facility] Data: Medical TESTING Center Upper Reportable Limit: 200 mg/dL. BEDSIDE Comment1 Notify 07/14 [facility] [place] GLUCOSE KARLA /2012 Medical TESTING Center CHEMISTRY Magnesium 1.5 mg/dL 1.8 - 2.4 07/14 LOW [facility] Lvl Medical Center CHEMISTRY AGAP 14.6 meq/L 10.0 - 07/14 Normal [facility] 20.0 Medical Center CHEMISTRY CO2 27 meq/L 24 - 32 07/14 Normal Medical Center CHEMISTRY Potassium 4.6 meq/L 3.5 - 5.1 07/14 Normal [facility] Lvl Medical Center CHEMISTRY Chloride Lvl 103 meq/L 95 - 109 07/14 Normal Medical [facility] CHEMISTRY BUN 25 mg/dL 7 - 22 07/14 [place] [facility] CHEMISTRY Glucose Lvl 143 mg/dL 70 - 99 07/14 [place] 5Interpretive Data: Adult reference range values reflect the clinical guidelines of the [place] [employer]. Medical Center CHEMISTRY Calcium Lvl 9.2 mg/dL 8.5 - 10.5 07/14 Normal Medical [facility] CHEMISTRY Creatinine 0.9 mg/dL 0.5 - 1.4 07/14 Normal [facility] Lvl Medical Center CHEMISTRY Sodium Lvl 140 meq/L 135 - 145 07/14 Normal Medical [facility] CHEMISTRY Phosphorus 2.8 mg/dL 2.5 - 4.5 07/14 Normal [facility] CHEMISTRY Ca Norm mgdL 5.44 mg/dL 4.65 - 07/14 [facility] 5. Medical Center CHEMISTRY Ca Norm 1.36 1.16 - 07/14 [facility] [place] mMol/L 1.30 Medical Center CHEMISTRY Ca Ion 1.31 1.16 - 07/14 [facility] [place] mMol/L 1.30 Medical Center CHEMISTRY Ca Ion mgdL 5.24 mg/dL 4.65 - 07/14 [facility] 5. [facility] Center HEMATOLOGY Basophils 0.3 % 0.0 - 1.0 07/14 Normal [facility] HEMATOLOGY Segs-Bands # 4.7 K/CMM 1.5 - 8.1 07/14 Normal [facility] HEMATOLOGY Monocytes 7.9 % 2.0 - 12.0 07/14 Normal [facility] Center HEMATOLOGY Eosinophils 3.7 % 0.0 - 4.0 07/14 Normal [facility] Center HEMATOLOGY Lymphocytes 0.9 K/CMM 1.0 - 5.5 07/14 LOW [facility] Medical Center HEMATOLOGY Basophils # 0.0 K/CMM 0.0 - 0.2 07/14 Normal [facility] HEMATOLOGY Monocytes # 0.5 K/CMM 0.0 - 0.8 07/14 Normal [facility] Center HEMATOLOGY Eosinophils 0.2 K/CMM 0.0 - 0.5 07/14 Normal [facility] # /2011 [facility] HEMATOLOGY Lymphocytes 14.8 % 20.0 - 09 LOW [facility] 40.0 /2011 [facility] HEMATOLOGY Segs 73.3 % 45.0 - 07/14 Normal [facility] 75.0 /2011 [facility] HEMATOLOGY INR 1.02 0.85 - 07/14 Normal 16Interpretive Data: RECOMMENDED RANGES FOR PROTIME INR: [facility] 11.12 2.0-3.0 for most medical and surgical thromboembolic states. Medical 2.5-3.5 for artificial heart valves and recurrent embolism. Center INR SHOULD BE USED ONLY FOR PATIENTS ON STABLE ANTICOAGULANT THERAPY. HEMATOLOGY PTT 30.5 s 22.9 - 07/14 Normal 19Interpretiv [facility] 35.8 /2011 e Data: [facility] Therapeutic Range: 57 - 92 Seconds HEMATOLOGY PT 13.6 s 12.0 - 07/14 Normal [facility] 14.7 [facility] HEMATOLOGY RDW 14.4 % 11.5 - 07/14 Normal [facility] 14.5 [facility] HEMATOLOGY MPV 8.6 fL 7.4 - 10.4 07/14 Normal /2011 [facility] HEMATOLOGY Platelet 154 K/CMM 133 - 450 07/14 Normal [facility] HEMATOLOGY Hgb 10.3 g/dL 12.0 - 07/14 LOW [facility] 16.0 /2011 [facility] HEMATOLOGY Hct 30.1 % 36.0 - 07/14 [facility] 48.0 /2011 [facility] HEMATOLOGY MCHC 34.4 g/dL 32.0 - 07/14 Normal [facility] 36.0 /2011 [facility] HEMATOLOGY MCH 30.5 pg 27.0 - 07/14 [facility] 31.0 /2011 [facility] HEMATOLOGY MCV 88.7 fL 81.0 - 07/14 [facility] 99.0 /2011 [facility] HEMATOLOGY RBC 3.39 M/CMM 4.20 - 07/14 LOW [facility] 5.40 /2011 [facility] HEMATOLOGY WBC 6.4 K/CMM 3.7 - 10.4 07/14 Normal [facility] CHEMISTRY Magnesium 2.2 mg/dL 1.8 - 2.4 07/13 Normal [facility] Lvl [facility] CHEMISTRY CK MB Index 2.8 0.0 - 2.5 07/13 HI [facility] CHEMISTRY CK MB 2.9 ng/mL 0.5 - 3.6 07/13 Normal Medical [facility] CHEMISTRY Total CK 104 unit/L 12 - 191 07/13 Normal [facility] CHEMISTRY Troponin-I 11.80 [...] 1.8 mg/dL 1.8 - 2.4 07/13 Normal Lvl Medical Center CHEMISTRY Phosphorus 2.9 mg/dL 2.5 - 4.5 07/13 Normal [facility] CHEMISTRY Creatinine 1.1 mg/dL 0.5 - 1.4 07/13 Normal [facility] Lvl Medical Center CHEMISTRY Sodium Lvl 140 meq/L 135 - 145 07/13 Normal [facility] CHEMISTRY Glucose Lvl 138 mg/dL 70 - 99 07/13 [place] 6Interpretive Data: Adult reference range values reflect the clinical guidelines of the [place] [employer]. Medical Center CHEMISTRY BUN 44 mg/dL 7 - 22 07/13 [place] [facility] CHEMISTRY Potassium 4.6 meq/L 3.5 - 5.1 07/13 Normal [facility] Lvl [facility] CHEMISTRY Chloride Lvl 103 meq/L 95 - 109 07/13 Normal [facility] CHEMISTRY CO2 24 meq/L 24 - 32 07/13 Normal Medical [facility] CHEMISTRY Calcium Lvl 8.9 mg/dL 8.5 - 10.5 07/13 Normal [facility] Center CHEMISTRY AGAP 17.6 meq/L 10.0 - 07/13 Normal [facility] 20.0 [facility] Center CHEMISTRY Ca Norm mgdL 4.56 mg/dL 4.65 - 07/13 LOW [facility] 5. [facility] CHEMISTRY Ca Ion mgdL 4.64 mg/dL 4.65 - 07/13 LOW [facility] 5. [facility] CHEMISTRY Ca Norm 1.14 1.16 - 07/13 LOW [facility] mMol/L 1.30 [facility] CHEMISTRY Ca Ion 1.16 1.16 - 07/13 Normal [facility] mMol/L 1. [facility] HEMATOLOGY INR 0.99 0.85 - 07/13 Normal 17Interpretive Data: RECOMMENDED RANGES FOR PROTIME INR: [facility] 11.12 2.0-3.0 for most medical and surgical thromboembolic states. Medical 2.5-3.5 for artificial heart valves and recurrent embolism. Center INR SHOULD BE USED ONLY FOR PATIENTS ON STABLE ANTICOAGULANT THERAPY. HEMATOLOGY PTT 28.1 s 22.9 - 07/13 Normal 20Interpretiv [facility] 35.8 e Data: [facility] Therapeutic Range: 57 - 92 Seconds HEMATOLOGY PT 13.3 s 12.0 - 07/13 Normal [facility] 14.7 [facility] HEMATOLOGY MPV 9.0 fL 7.4 - 10.4 07/13 Normal Medical Center HEMATOLOGY MCH 30.0 pg 27.0 - 07/13 Normal [facility] 31.0 [facility] HEMATOLOGY MCHC 33.6 g/dL 32.0 - 07/13 Normal [facility] 36.0 Medical Center HEMATOLOGY RDW 14.8 % 11.5 - 07/13 HI [facility] 14.5 Medical Center HEMATOLOGY Platelet 127 K/CMM 133 - 450 07/13 LOW [facility] HEMATOLOGY Hct 32.2 % 36.0 - 07/13 [facility] [place] 48.0 Medical Center HEMATOLOGY Hgb 10.8 g/dL 12.0 - 07/13 [facility] [place] 16.0 [facility] HEMATOLOGY RBC 3.61 M/CMM 4.20 - 07/13 [facility] [place] 5.40 /2011 Medical [place] HEMATOLOGY WBC 6.8 K/CMM 3.7 - 10.4 07/13 [facility] HEMATOLOGY MCV 89.3 fL 81.0 - 07/13 [facility] [place] 99.0 /2011 [facility] HEMATOLOGY Eosinophils 3.0 % 0.0 - 4.0 07/13 [facility] HEMATOLOGY Monocytes 9.4 % 2.0 - 12.0 07/13 [facility] HEMATOLOGY Segs 74.2 % 45.0 - 07/13 [facility] [place] 75.0 /2011 [facility] HEMATOLOGY Lymphocytes 13.0 % 20.0 - 07/13 [facility] [place] 40.0 [facility] HEMATOLOGY Basophils # 0.0 K/CMM 0.0 - 0.2 07/13 Normal [facility] HEMATOLOGY Eosinophils 0.2 K/CMM 0.0 - 0.5 07/13 [facility] [place] # /2011 [facility] HEMATOLOGY Lymphocytes 0.9 K/CMM 1.0 - 5.5 07/13 [facility] [place] # /2011 [facility] HEMATOLOGY Monocytes # 0.6 K/CMM 0.0 - 0.8 07/13 [facility] HEMATOLOGY Basophils 0.4 % 0.0 - 1.0 07/13 [facility] HEMATOLOGY Segs-Bands # 5.0 K/CMM 1.5 - 8.1 07/13 [facility] HEMATOLOGY Hgb 10.4 g/dL 12.0 - 07/12 [facility] [place] 16.0 [facility] HEMATOLOGY Hct 31.1 % 36.0 - 07/12 [facility] 48.0 [facility] CHEMISTRY Troponin-T 4.890 0.000 - 07/12 CRIT 10Result [place] ng/mL 0.100 /2011 Comment: Medical Critical Center Result(s) called to Nettie washburn 07/12/2012 04:04:00 CDT_ by_mgm. Read back OK. (endorsed by [facility] to release result while in break). CHEMISTRY Troponin-I 30.40 0.00 - 07/12 CRIT 13Result [place] ng/mL 0.40 /2011 Comment: Medical Critical Center Result(s) called to nettie chung_ at _07/12/2012 03:28:01 CDT by_lg. Read back OK. CHEMISTRY Total CK 335 unit/L 12 - 191 07/12 [facility] Medical Center CHEMISTRY CK MB Index 1.9 0.0 - 2.5 07/12 Normal Medical Center CHEMISTRY CK MB 6.5 ng/mL 0.5 - 3.6 07/12 [facility] Medical Center CHEMISTRY AGAP 16.2 meq/L 10.0 - 07/12 Normal [facility] 20.0 Medical Center CHEMISTRY Chloride Lvl 99 meq/L 95 - 109 07/12 Normal Medical Center CHEMISTRY CO2 23 meq/L 24 - 32 07/12 LOW Medical [facility] CHEMISTRY Calcium Lvl 8.8 mg/dL 8.5 - 10.5 07/12 Normal Medical [facility] CHEMISTRY Creatinine 1.9 mg/dL 0.5 - 1.4 07/12 [facility] CHEMISTRY Sodium Lvl 134 meq/L 135 - 145 07/12 [facility] Center CHEMISTRY Potassium 4.2 meq/L 3.5 - 5.1 07/12 Normal [facility] Center CHEMISTRY Glucose Lvl 167 mg/dL 70 - 99 07/12 [place] 7Interpretive Data: Adult reference range values reflect the clinical guidelines of the [place] [employer]. Medical Center CHEMISTRY BUN 60 mg/dL 7 - 07/12 [facility] Medical Center CHEMISTRY Phosphorus 4.2 mg/dL 2.5 - 4.5 07/12 Normal [facility] Center CHEMISTRY Ca Norm mgdL 4.48 mg/dL 4.65 - 07/12 LOW [place] 5. [facility] Center CHEMISTRY Ca Ion mgdL 4.60 mg/dL 4.65 - 07/12 LOW [place] 5. [facility] Center CHEMISTRY Ca Norm 1.12 1.16 - 07/12 LOW [place] mMol/L 1.30 Medical Center CHEMISTRY Ca Ion 1.15 1.16 - 07/12 LOW [facility] mMol/L 1.30 /2011 [facility] HEMATOLOGY PTT 28.2 s 22.9 - 07/12 Normal 21Interpretiv [place] 35.8 /2011 e Data: [facility] Therapeutic Range: 57 - 92 Seconds HEMATOLOGY PT 13.3 s 12.0 - 07/12 Normal [place] 14.7 /2011 [facility] HEMATOLOGY INR 0.99 0.85 - 07/12 Normal 18Interpretive Data: RECOMMENDED RANGES FOR PROTIME INR: [facility] 1.17 2.0-3.0 for most medical and surgical thromboembolic states. Medical 2.5-3.5 for artificial heart valves and recurrent embolism. Center INR SHOULD BE USED ONLY FOR PATIENTS ON STABLE ANTICOAGULANT THERAPY. HEMATOLOGY WBC 8.9 K/CMM 3.7 - 10.4 07/12 Normal [facility] HEMATOLOGY RBC 3.60 M/CMM 4.20 - 07/12 LOW [facility] 5.40 /2011 [facility] HEMATOLOGY MCV 88.5 fL 81.0 - 07/12 [facility] 99.0 [facility] HEMATOLOGY MCH 29.8 pg 27.0 - 07/12 [facility] 31.0 /2011 [facility] HEMATOLOGY MCHC 33.7 g/dL 32.0 - 07/12 [facility] 36.0 [facility] HEMATOLOGY MPV 8.8 fL 7.4 - 10.4 07/12 [facility] HEMATOLOGY RDW 14.6 % 11.5 - 07/12 HI [facility] 14.5 /2011 [facility] HEMATOLOGY Platelet 143 K/CMM 133 - 450 07/12 Normal [facility] HEMATOLOGY Basophils # 0.0 K/CMM 0.0 - 0.2 07/12 Normal [facility] HEMATOLOGY Lymphocytes 11.6 % 20.0 - 07/12 LOW [facility] 40.0 /2011 [facility] HEMATOLOGY Monocytes 7.4 % 2.0 - 12.0 07/12 Normal [facility] HEMATOLOGY Eosinophils 3.1 % 0.0 - 4.0 07/12 Normal /2011 [facility] HEMATOLOGY Lymphocytes 1.0 K/CMM 1.0 - 5.5 07/12 Normal [place] # /2011 [facility] HEMATOLOGY Monocytes # 0.7 K/CMM 0.0 - 0.8 07/12 [facility] HEMATOLOGY Basophils 0.3 % 0.0 - 1.0 07/12 Normal [facility] HEMATOLOGY Eosinophils 0.3 K/CMM 0.0 - 0.5 07/12 Normal [place] # /2011 [facility] HEMATOLOGY Segs-Bands # 6.9 K/CMM 1.5 - 8.1 07/12 Normal [facility] HEMATOLOGY Segs 77.6 % 45.0 - 07/12 HI [place] 75.0 /2011 [facility] BLOOD BANK Antibody Negative 07/11 Normal [facility] RESULTS Scrn Medical (07/11/2012 15:15:00) Center BLOOD BANK ABO/Rh O NEG 07/11 Unknown [place] RESULTS [facility] BLOOD BANK RBC product Product available 07/11 Normal [facility] RESULTS Medical (07/11/2012 12:54:00) Center CHEMISTRY [...] are reported in Aspirin Reaction Units (ARU). [facility] Pl[facility] /2011 Medical [id number] ARU - [...] PRU reference range is 194 - 418. [facility] /2011 Medical Post Drug Results: Lower PRU [...] Folate Lvl 17.7 ng/mL >=3.0 07/10 Normal [facility] CHEMISTRY Vitamin B12 420 pg/mL 254 - 1320 07/10 Normal [facility] CHEMISTRY FTI 2.7 07/10 NA [facility] CHEMISTRY U Opiate Scr Positive Negative 07/10 ABN [facility] *[facility] [place] (07/09/2012 21:33:00) CHEMISTRY U Benzodia Positive Negative 07/10 ABN [facility] (07/09/2012 21:33:00) CHEMISTRY U Phencyc Negative Negative 07/10 [facility] (07/09/2012 21:33:00) CHEMISTRY UDS Note See Note [...] mg/dL CHEMISTRY U Cocaine Negative Negative 07/10 [facility] Scr [facility] [place] (07/09/2012 21:33:00) CHEMISTRY U Cannab Scr Negative Negative 07/10 [facility] [place] [facility] (07/09/2012 21:33:00) CHEMISTRY U Amph Scr Negative Negative 07/10 [facility] (07/09/2012 21:33:00) CHEMISTRY U Kaye Scr Negative Negative 07/10 [facility] *NA* Center (07/09/2012 21:33:00) CHEMISTRY T3 Uptake 34 % 31 - 39 07/10 Normal [facility] CHEMISTRY TSH 0.624 0.360 - 07/10 Normal [facility] uIU/mL 3.740 [facility] CHEMISTRY T4 7.9 ug/dl 4.7 - 13.3 07/10 Normal [facility] CHEMISTRY CHD Risk 4.41 3.90 - 07/10 Normal [facility] 5.80 [facility] CHEMISTRY LDL 97 mg/dL 0 - 129 07/10 Normal [facility] CHEMISTRY Trig 147 mg/dL 0 - 200 07/10 Normal [facility] CHEMISTRY Chol 163 mg/dL 120 - 200 07/10 Normal [facility] CHEMISTRY HDL 37 mg/dL >=35 07/10 Normal [facility] CHEMISTRY Hgb A1C 7.8 % 07/10 [...] 4.2 meq/L 3.5 - 5.1 07/09 Normal [facility] CHEMISTRY POC A Ca Ion 1.18 1.16 - 07/09 [facility] mMol/L 1.30 [facility] CHEMISTRY POC A LA 1.7 mMol/L 0.5 - 2.2 07/09 Normal [facility] CHEMISTRY POC A Hct 30.0 % 36.0 - 07/09 [facility] 48.0 [facility] CHEMISTRY POC A Na 131 meq/L 135 - 145 07/09 LOW [facility] CHEMISTRY POC A Glu 225 mg/dL 70 - 99 07/09 [facility] CHEMISTRY POC A PO2 123 mm[Hg] 80 - 100 07/09 [facility] CHEMISTRY POC A PCO2 33 mm[Hg] 35 - 45 07/09 [facility] CHEMISTRY POC A O2 Sat 99.0 % 95.0 - 07/09 Normal [place] 100.0 [facility] CHEMISTRY POC A HCO3 26 mMol/L 22 - 26 07/09 [facility] CHEMISTRY POC A BE 3 mMol/L -2-2 - 2 07/09 [facility] CHEMISTRY POC A Temp 37.0 Erlinda 07/09 NA [facility] CHEMISTRY POC A Source ART 07/09 NA [facility] Center CHEMISTRY POC A pH 7.51 7.35 - 07/09 [facility] [place] 7.45 [facility] CHEMISTRY Myoglobin 199 ng/mL 25 - 72 07/09 [facility] HEMATOLOGY Plt Morph Normal 07/09 Normal [facility] (07/09/2012 17:24:00) Center HEMATOLOGY RBC Morph Normal 07/09 Normal [facility] (07/09/2012 17:24:00) Center BEDSIDE Comment2 Notify 07/09 NA [place] GLUCOSE RN/MD /2011 [facility] TESTING Center BLOOD BANK Platelet Product available 07/09 Normal [facility] RESULTS product Medical (07/09/2012 07:43:00) Center BLOOD BANK Antibody Negative 07/07 Normal [facility] RESULTS Scrn Medical (07/07/2012 06:10:00) Center BLOOD BANK ABO/Rh O NEG 07/07 Unknown [facility] RESULTS [facility] CHEMISTRY A/G Ratio 1.3 0.7 - 1.6 07/06 Normal [facility] Center CHEMISTRY B/C Ratio 22 6 - 25 07/06 Normal [facility] Center CHEMISTRY Globulin 3.0 g/dL 2.0 - 4.0 07/06 Normal [facility] Center CHEMISTRY AST 19 unit/L 0 - 37 07/06 Normal [facility] Center CHEMISTRY Total 6.9 g/dL 6.4 - 8.4 07/06 Normal [facility] Center CHEMISTRY Bili Total 0.4 mg/dL 0.2 - 1.3 07/06 Normal [facility] Center CHEMISTRY ALT 24 unit/L 0 - 65 07/06 Normal [facility] Center CHEMISTRY Albumin Lvl 3.9 g/dL 3.5 - 5.0 07/06 Normal [facility] Center CHEMISTRY Alk Phos 68 unit/L 39 - 136 07/06 Normal [facility] [address] [place] [address] Vital Signs Vital Sign Value Date Comments Source Weight 68.091 10/29/2018 [facility] BMI Calculated 29.32 10/29/2018 [facility] Height 152.4 cm 10/29/2018 [facility] Heart Rate 69 10/29/2018 [facility] Temperature Oral (F) 98.4 F 10/29/2018 [facility] Respitory Rate 16 10/29/2018 [facility] Systolic (mm Hg) 104 10/29/2018 [facility] Diastolic (mm Hg) 59 10/29/2018 [facility] Systolic (mm Hg) 134 05/01/2018 [facility] Diastolic (mm Hg) 61 05/01/2018 [facility] Respitory Rate 20 05/01/2018 [facility] Systolic (mm Hg) 144 05/01/2018 [facility] Diastolic (mm Hg) 61 05/01/2018 [facility] Respitory Rate 20 05/01/2018 [facility] Systolic (mm Hg) 145 05/01/2018 [facility] Diastolic (mm Hg) 63 05/01/2018 [facility] Respitory Rate 20 05/01/2018 [facility] Temperature Oral (F) 99 F 05/01/2018 [facility] Temperature Oral (F) 96.9 F 05/01/2018 [facility] Temperature Oral (F) 99.2 F 05/01/2018 [facility] Weight 64.091 04/25/2018 [facility] BMI Calculated 25.03 04/25/2018 [facility] Height 160.02 cm 04/25/2018 [facility] Height 158.24 cm 04/22/2018 [facility] Weight 65.568 04/22/2018 [facility] BMI Calculated 26.19 04/22/2018 [facility] Temperature Oral (F) 97.9 F 04/22/2018 [facility] Respitory Rate 18 04/22/2018 [facility] Heart Rate 92 04/22/2018 [facility] Systolic (mm Hg) 107 04/22/2018 [facility] Diastolic (mm Hg) 64 04/22/2018 [facility] BMI Calculated 26.33 04/02/2018 [facility] Height 158.5 cm 04/02/2018 [facility] Systolic (mm Hg) 127 04/02/2018 [facility] Diastolic (mm Hg) 67 04/02/2018 [facility] Weight 66.136 04/02/2018 [facility] Heart Rate 56 04/02/2018 [facility] Respitory Rate 18 04/02/2018 [facility] Temperature Oral (F) 97.0 F 04/02/2018 [facility] Height 158.6 cm 04/02/2018 [facility] BMI Calculated 28.91 04/02/2018 [facility] Weight 72.727 04/02/2018 [facility] Systolic (mm Hg) 120 04/02/2018 [facility] Center Diastolic (mm Hg) 71 04/02/2018 [facility] Heart Rate 73 04/02/2018 [facility] Temperature Oral (F) 98.1 F 04/02/2018 [facility] Systolic (mm Hg) 138 03/19/2018 [facility] Diastolic (mm Hg) 71 03/19/2018 [facility] Temperature Oral (F) 78 F 03/19/2018 [facility] Heart Rate 75 03/19/2018 [facility] Respitory Rate 17 03/19/2018 [facility] BMI Calculated 25.55 03/19/2018 [facility] Height 158.6 cm 03/19/2018 [facility] Weight 64.273 03/19/2018 [facility] Height 158.6 cm 03/19/2018 [facility] BMI Calculated 25.5 03/19/2018 [facility] Weight 64.148 03/19/2018 [facility] Heart Rate 79 03/19/2018 [facility] Temperature Oral (F) 98.2 F 03/19/2018 [facility] Respitory Rate 18 03/19/2018 [facility] Systolic (mm Hg) 109 03/19/2018 [facility] Diastolic (mm Hg) 61 03/19/2018 [facility] Respitory Rate 16 03/02/2018 [facility] Heart Rate 84 03/02/2018 [facility] Systolic (mm Hg) 127 03/02/2018 [facility] Diastolic (mm Hg) 66 03/02/2018 [facility] Height 158.6 cm 03/02/2018 [facility] Weight 62.273 03/02/2018 [facility] BMI Calculated 24.76 03/02/2018 [facility] Systolic (mm Hg) 102 02/11/2018 [facility] Diastolic (mm Hg) 60 02/11/2018 [facility] Heart Rate 77 02/11/2018 [facility] Weight 60.938 02/11/2018 [facility] BMI Calculated 24.23 02/11/2018 [facility] Height 158.6 cm 02/11/2018 [facility] Temperature Oral (F) 98.2 F 02/11/2018 [facility] Respitory Rate 16 02/11/2018 [facility] Systolic (mm Hg) 136 02/06/2018 [facility] Diastolic (mm Hg) 79 02/06/2018 [facility] Temperature Oral (F) 97.1 F 02/06/2018 [facility] Respitory Rate 20 02/06/2018 [facility] Systolic (mm Hg) 121 02/06/2018 [facility] Diastolic (mm Hg) 56 02/06/2018 [facility] Respitory Rate 20 02/06/2018 [facility] Temperature Oral (F) 96.8 F 02/06/2018 [facility] Systolic (mm Hg) 115 02/06/2018 [facility] Diastolic (mm Hg) 58 02/06/2018 [facility] Respitory Rate 22 02/06/2018 [facility] Temperature Oral (F) 96.7 F 02/06/2018 [facility] Weight 63.273 01/27/2018 [facility] BMI Calculated 24.93 01/27/2018 [facility] Weight 63.835 01/27/2018 [facility] Height 160.02 cm 01/27/2018 [facility] Heart Rate 80 01/26/2018 [facility] Heart Rate 82 01/26/2018 [facility] Heart Rate 82 01/26/2018 [facility] Weight 63.636 01/26/2018 [facility] BMI Calculated 24.85 01/26/2018 [facility] Height 160.02 cm 01/26/2018 [facility] Height 158.6 cm 01/26/2018 [facility] BMI Calculated 25.41 01/26/2018 [facility] Weight 63.909 01/26/2018 [facility] Temperature Oral (F) 98.5 F 01/26/2018 [facility] Heart Rate 82 01/26/2018 [facility] Respitory Rate 16 01/26/2018 [facility] Systolic (mm Hg) 113 01/26/2018 [facility] Diastolic (mm Hg) 63 01/26/2018 [facility] BMI Calculated 24.31 01/19/2018 [facility] Weight 63.727 01/19/2018 [facility] Height 161.9 cm 01/19/2018 [facility] Temperature Oral (F) 97.7 F 01/19/2018 [facility] Respitory Rate 16 01/19/2018 [facility] Heart Rate 83 01/19/2018 [facility] Systolic (mm Hg) 104 01/19/2018 [facility] Diastolic (mm Hg) 51 01/19/2018 [facility] Weight 61.96 01/12/2018 [facility] BMI Calculated 24.2 01/12/2018 [facility] Height 160.02 cm 01/12/2018 [facility] Temperature Oral (F) 96.9 F 01/12/2018 [facility] Respitory Rate 18 01/12/2018 [facility] Heart Rate 80 01/12/2018 [facility] Systolic (mm Hg) 98 01/12/2018 [facility] Diastolic (mm Hg) 49 01/12/2018 [facility] Systolic (mm Hg) 120 01/05/2018 [facility] Diastolic (mm Hg) 58 01/05/2018 [facility] Respitory Rate 18 01/05/2018 [facility] Systolic (mm Hg) 122 01/05/2018 [facility] Diastolic (mm Hg) 60 01/05/2018 [facility] Systolic (mm Hg) 123 01/05/2018 [facility] Diastolic (mm Hg) 57 01/05/2018 [facility] Respitory Rate 18 01/05/2018 [facility] Temperature Oral (F) 97.4 F 01/05/2018 [facility] Respitory Rate 17 01/05/2018 [facility] Temperature Oral (F) 97.6 F 01/05/2018 [facility] Temperature Oral (F) 97.6 F 01/05/2018 [facility] BMI Calculated 25.03 01/01/2018 [facility] Weight 64.091 01/01/2018 [facility] Height 160.02 cm 01/01/2018 [facility] BMI Calculated 24.56 12/11/2017 [facility] Weight 62.898 12/11/2017 [facility] Height 160.02 cm 12/11/2017 [facility] Systolic (mm Hg) 125 12/11/2017 [facility] Diastolic (mm Hg) 63 12/11/2017 [facility] Temperature Oral (F) 97.1 F 12/11/2017 [facility] Heart Rate 97 12/11/2017 [facility] Respitory Rate 18 12/11/2017 [facility] Weight 64.182 12/08/2017 [facility] Height 160 cm 12/08/2017 [facility] BMI Calculated 25.07 12/08/2017 [facility] Systolic (mm Hg) 109 12/08/2017 [facility] Diastolic (mm Hg) 46 12/08/2017 [facility] Respitory Rate 18 12/08/2017 [facility] Heart Rate 84 12/08/2017 [facility] Temperature Oral (F) 98.1 F 12/08/2017 [facility] Heart Rate 64 11/29/2017 [facility] Center Systolic (mm Hg) 110 11/29/2017 [facility] Diastolic (mm Hg) 64 11/29/2017 [facility] Respitory Rate 18 11/29/2017 [facility] Temperature Oral (F) 98.2 F 11/29/2017 [facility] Heart Rate 66 11/29/2017 [facility] Respitory Rate 18 11/29/2017 [facility] Temperature Oral (F) 97.6 F 11/29/2017 [facility] Systolic (mm Hg) 109 11/29/2017 [facility] Diastolic (mm Hg) 58 11/29/2017 [facility] Systolic (mm Hg) 122 11/29/2017 [facility] Diastolic (mm Hg) 58 11/29/2017 [facility] Respitory Rate 20 11/29/2017 [facility] Temperature Oral (F) 98.5 F 11/29/2017 [facility] Heart Rate 74 11/29/2017 [facility] Weight 66.818 11/25/2017 [facility] BMI Calculated 27.3 11/20/2017 [facility] Weight 69.909 11/20/2017 [facility] Height 160.02 cm 11/20/2017 [facility] Systolic (mm Hg) 110 11/02/2017 [facility] Diastolic (mm Hg) 53 11/02/2017 [facility] Respitory Rate 32 11/02/2017 [facility] Systolic (mm Hg) 110 11/02/2017 [facility] Diastolic (mm Hg) 53 11/02/2017 [facility] Respitory Rate 23 11/02/2017 [facility] Systolic (mm Hg) 104 11/02/2017 [facility] Diastolic (mm Hg) 52 11/02/2017 [facility] Respitory Rate 23 11/02/2017 [facility] Temperature Oral (F) 98 F 11/02/2017 [facility] Temperature Oral (F) 98.6 F 11/01/2017 [facility] Height 158.24 cm 10/31/2017 [facility] Temperature Oral (F) 98.3 F 10/31/2017 [facility] Heart Rate 85 10/31/2017 [facility] Heart Rate 76 10/31/2017 [facility] Heart Rate 84 10/31/2017 [facility] BMI Calculated 28.94 10/29/2017 [facility] Height 158.24 cm 10/29/2017 [facility] Weight 72.455 10/29/2017 [facility] Weight 71.989 10/29/2017 [facility] BMI Calculated 28.75 10/29/2017 [facility] Heart Rate 80 10/29/2017 [facility] Systolic (mm Hg) 136 10/29/2017 [facility] Diastolic (mm Hg) 72 10/29/2017 [facility] Temperature Oral (F) 96.8 F 10/29/2017 [facility] Respitory Rate 18 10/29/2017 [facility] Height 158.24 cm 10/29/2017 [facility] Height 157.48 cm 10/21/2017 [facility] BMI Calculated 28.96 10/21/2017 [facility] Weight 71.818 10/21/2017 [facility] Systolic (mm Hg) 116 10/14/2017 [facility] Diastolic (mm Hg) 60 10/14/2017 [facility] Temperature Oral (F) 97.8 F 10/14/2017 [facility] Height 159.77 cm 10/14/2017 [facility] Weight 72.301 10/14/2017 [facility] BMI Calculated 28.32 10/14/2017 [facility] Respitory Rate 18 05/29/2016 [facility] Systolic (mm Hg) 156 05/29/2016 [facility] Diastolic (mm Hg) 73 05/29/2016 [facility] Systolic (mm Hg) 142 05/29/2016 [facility] Diastolic (mm Hg) 70 05/29/2016 [facility] Respitory Rate 19 05/29/2016 [facility] Systolic (mm Hg) 150 05/29/2016 [facility] Diastolic (mm Hg) 77 05/29/2016 [facility] Respitory Rate 19 05/29/2016 [facility] Height 165.1 cm 05/29/2016 [facility] Weight 78.636 05/29/2016 [facility] BMI Calculated 28.85 05/29/2016 [facility] Center Diastolic (mm Hg) 88 01/20/2013 [facility] Systolic (mm Hg) 163 01/20/2013 [facility] Temperature Oral (F) 98.2 F 01/20/2013 [facility] Systolic (mm Hg) 154 01/20/2013 [facility] Diastolic (mm Hg) 93 01/20/2013 [facility] Systolic (mm Hg) 172 01/20/2013 [facility] Diastolic (mm Hg) 78 01/20/2013 [facility] Temperature Oral (F) 98.2 F 01/20/2013 [facility] Respitory Rate 12 01/19/2013 [facility] Respitory Rate 12 01/19/2013 [facility] Respitory Rate 12 01/19/2013 [facility] Temperature Oral (F) 97.7 F 01/19/2013 [facility] Weight 81.818 01/19/2013 [facility] Height 165.1 cm 01/19/2013 [facility] Systolic (mm Hg) 108 07/31/2012 [facility] Diastolic (mm Hg) 60 07/31/2012 [facility] Heart Rate 86 07/31/2012 [facility] Systolic (mm Hg) 112 07/31/2012 [facility] Respitory Rate 20 07/31/2012 [facility] Heart Rate 83 07/31/2012 [facility] Temperature Oral (F) 98.3 F 07/31/2012 [facility] Systolic (mm Hg) 113 07/31/2012 [facility] Diastolic (mm Hg) 68 07/31/2012 [facility] Respitory Rate 20 07/31/2012 [facility] Heart Rate 89 07/31/2012 [facility] Temperature Oral (F) 99.2 F 07/31/2012 [facility] Temperature Oral (F) 99.0 F 07/31/2012 [facility] Respitory Rate 20 07/31/2012 [facility] Center Diastolic (mm Hg) 69 07/31/2012 [facility] Weight 86.364 07/22/2012 [facility] Height 162.56 cm 07/22/2012 [facility] Systolic (mm Hg) 118 07/21/2012 [facility] Center Diastolic (mm Hg) 64 07/21/2012 [facility] Temperature Oral (F) 98.7 F 07/21/2012 [facility] Systolic (mm Hg) 107 07/21/2012 [facility] Center Diastolic (mm Hg) 57 07/21/2012 [facility] Center Diastolic (mm Hg) 72 07/21/2012 [facility] Systolic (mm Hg) 130 07/21/2012 [facility] Temperature Oral (F) 97.8 F 07/21/2012 [facility] Temperature Oral (F) 98.5 F 07/21/2012 [facility] Respitory Rate 18 07/20/2012 [facility] Respitory Rate 18 07/20/2012 [facility] Respitory Rate 18 07/20/2012 [facility] Weight 67 07/16/2012 [facility] Heart Rate 82 2012 [facility] Height 165.1 cm 2012 [facility] Weight 82.273 2012 [facility] Center Diastolic (mm Hg) 84 2012 [facility] Systolic (mm Hg) 123 2012 [facility] Temperature Oral (F) 99.1 F 2012 [facility] Heart Rate 123 2012 [facility] Respitory Rate 18 2012 [facility] Heart Rate 61 2012 [facility] Center Diastolic (mm Hg) 83 2012 [facility] Systolic (mm Hg) 136 2012 [facility] Diastolic (mm Hg) 58 2012 [facility] Systolic (mm Hg) 111 2012 [facility] Heart Rate 89 2012 [facility] Respitory Rate 20 2012 [facility] Temperature Oral (F) 98.5 F 2012 [facility] Respitory Rate 20 2012 [facility] Temperature Oral (F) 98.5 F 2012 [facility] Height 165.10 cm 2012 [facility] Weight 82.273 2012 [facility] Diastolic (mm Hg) 55 2012 [facility] Systolic (mm Hg) 108 2012 [facility] Systolic (mm Hg) 122 2012 [facility] Diastolic (mm Hg) 55 2012 [facility] [facility] Temperature Oral (F) 98.4 F 2012 [facility] Diastolic (mm Hg) 74 07/14/2012 [facility] Systolic (mm Hg) 132 07/14/2012 [facility] Temperature Oral (F) 98.8 F 07/14/2012 [facility] Temperature Oral (F) 98.6 F 07/14/2012 [facility] Respitory Rate 18 07/13/2012 [facility] Respitory Rate 19 07/13/2012 [facility] Respitory Rate 17 07/13/2012 [facility] Heart Rate 98 07/09/2012 [facility] Heart Rate 99 07/09/2012 [facility] Heart Rate 80 07/09/2012 [facility] Weight 88.182 07/07/2012 [facility] Height 162.56 cm 07/07/2012 [facility] Weight 88.182 07/06/2012 [facility] Height 162.56 cm 07/06/2012 [facility] Weight 88.182 07/06/2012 [facility] Height 162.56 cm 07/06/2012 [facility] Encounters Location Location Encounter Encounter Reason Attending ADM DC Status Source Details Type Number For Provider Date Date Visit [facility] Inpatient [id number] LUMBAR SASCHA 07/09 07/14 [place] [address] RADICULO REBEKA /2011 [facility] [place] [id number] MEILANI 07/14 07/15 Active [facility] 2 [facility] /2011 [facility] [place] [id number] LUMBAR JORGE 07/15 07/21 Active [facility] [place] [facility] 3 RAD GAURANG /2011 [facility] [place] [id number] SCI MEILANI 07/21 07/31 Active [facility] 9 [facility] [place] WOJCIECH [id number] NADA GAUTAM 01/19 01/20 Active [facility] Out[facility] Diag [id number] Wagner 04/20 04/21 [facility] 2 [facility] Bed[facility] [id number] Ali 05/29 05/29 [facility] Outpatient 2 Denktas /2015 [facility] Outpatient [id number] Biswajit 10/14 10/15 [facility] [place] 4 Сергей [facility] Advanced Heart Failure [facility] Outpatient [id number] Biswajit 10/21 10/22 [facility] [place] 6 Сергей [facility] Phone [id number] 10/28 10/30 [facility] [place] Message [facility] Advanced Heart Heart Failure Failure [facility] Outpatient [id number] Biswajit 10/29 10/30 [facility] [place] [facility] 4 Сергей [facility] Inpatient [id number] Biswajit 10/29 11/02 [facility] [place] 3 Сергей [facility] Inpatient [id number] Biswajit 11/19 11/29 [facility] [place] [facility] 0 Сергей [facility] Recurring [id number] David Benedict 12/08 01/07 [facility] [place] [facility] 0 /2017 [facility] Oncology [facility] Outpatient [id number] Biswajit 12/11 12/12 [facility] [place] 1 Сергей [facility] Inpatient [id number] Jim 01/01 01/06 [facility] [place] 6 Ramos /2017 [facility] Outpatient [id number] Biswajit 01/12 01/13 [facility] [place] [facility] 4 Сергей /2017 [facility] Recurring [id number] David Benedict 01/19 02/18 [place] [facility] [facility] Outpt Diag [id number] David Benedict 01/21 01/22 [facility] Outpatient Services [facility] Inpatient [id number] Greogr 01/26 02/06 [place] [facility] [id number] David Benedict 02/02 02/02 [facility] Recurring [id number] David Benedict 03/02 04/01 [facility] [place] [facility] Out[facility] Diag [id number] David Benedict 04/02 04/03 [facility] Recurring [id number] David Benedict 04/02 05/02 [facility] Oncology [facility] Outpatient [id number] John 04/02 04/03 [facility] [place] 8 [facility] Outpatient [id number] John 04/22 04/23 [facility] 7 [facility] Inpatient [id number] Marwan 04/25 05/01 [facility] [place] 1 me [facility] Recurring [id number] David Benedict 10/29 11/28 [facility]cology [facility] Procedures Procedure Code Date Perfomer Comments Source [place]opsy[place] [address] 02/02/2018 [facility] retroperitoneal mass, Medical percutaneous needle Center 11/28/2017 [facility] Biopsy, bone, trocar, 11/28/2017 [facility] or needle; deep (eg, Medical vertebral body, Center femur) [place], [place] [address] 11/28/2017 [facility] retroperitoneal mass, [facility] percutaneous needle [place] [address] 11/25/2017 [facility] retroperitoneal mass, Medical percutaneous needle Center Heart valve [id number] 10/27/2017 [facility] replacement [place] Heart valve [id number] 10/27/2017 [facility] replacement [facility] Heart valve [id number] 10/27/2017 MH [facility] replacement [facility] Appendectomy [id number] [facility] Breast biopsy and [id number] [facility] [place] related procedures [facility] Cardiac [id number] [facility] catheterization [facility] Cataract surgery [id number] [facility] Hysterectomy [id number] [facility] Ulnar nerve [id number] [facility] Appendectomy [id number] [facility] Breast biopsy and [id number] Center for related procedures [facility] Heart Failure Cardiac [id number] Center for catheterization [facility] Cataract surgery [id number] [facility] Hysterectomy [id number] [facility] Ulnar nerve [id number] Center for decompression [facility] Failure Appendectomy [id number] MH [facility] Breast biopsy and [id number] MH [facility] related procedures [place] Card[facility] [id number] [facility] catheterization [place] Cataract surgery [id number] [facility] [place] Hysterectomy [id number] [facility] Ulnar nerve [id number] [facility] decompression [facility] Appendectomy [id number] MH [facility] Breast biopsy and [id number] MH [facility] related procedures [facility] Cardiac [id number] [facility] catheterization [facility] Cataract surgery [id number] [facility] Hysterectomy [id number] [facility] Ulnar nerve [id number] [facility] decompression [facility] Appendectomy [id number] [facility] Breast biopsy and [id number] [facility] related procedures [facility] Cardiac [id number] [facility] catheterization [facility] Cataract surgery [id number] [facility] Hysterectomy [id number] [facility] Ulnar nerve [id number] [facility]
[2018-12-07 11:07] LABS: ALT/SGPT 13 U/L (12-78); AST/SGOT 21 U/L (15-37); Albumin 2.2 g/dL (3.4-5.0); Alkaline Phosphatase 82 U/L (45-117); BUN Blood Urea Nitrogen 66 mg/dL (7-18); Bicarbonate 27 mmol/L (21-32); Bilirubin Total 0.5 mg/dL (0.2-1.0); Glucose Level 108 mg/dL (74-106); NT PRO-BNP 7374 pg/mL (<450); Potassium 5.1 mmol/L (3.5-5.1); Protein, Total 5.9 g/dL (6.4-8.2); Sodium Level 136 mmol/L (136-145); Troponin (Emerg Dept Use Only) < 0.02 ng/mL (0.0-0.045)
--- OUTSIDE RECORDS SUMMARY | 2018-12-07 11:13 | XMS REPORT | CCD ---
:1935 Author Organization [facility] Care Team Providers Name Role Phone Morgan [...] mg, 1 supp, Route: 07/07/2012 07/14/2012 Discontinued [place], Drug form: SUPP, Daily, Dosing Weight 88.182, [...] Results BEDSIDE GLUCOSE TESTING Most recent to [facility] 1 2 3 [Reference Range]: Gluc [...] 200 mg/dL.BLOOD BANK RESULTS Most recent to [facility] [Reference 1 2 3 Range]: ABO/Rh [...] values reflect the clinical guidelines of the [place] [employer].6Interpretive Data: Adult reference range values reflect the clinical guidelines of the [place] [employer].7Interpretive Data: Adult reference range values reflect the clinical guidelines of the [place] [employer].8Result Comment: Critical Result(s) called to MS. DANGELO at 07/13/2012 16:34:32 CDT by MANINDER. Read back OK.9Result Comment : Critical Result(s) called to Rosalinda Ely at 07/13/2012 13:06:41 CDT by RG. Read back OK.10Result Comment: Critical Result(s) called to Rose Lopez_ at 04:04:00 CDT_ by_mgm. Read back OK. (endorsed by [facility] to release result while in [...] 10.0 240 Poor Control, take action to azzrw68Xclvnjcdfjaw Data: Drugs reported as positive have not [...] Data: Heparin Therapeutic Range: 57 - 92 Erflvgl97Ymrkosrnmwes Data: Heparin Therapeutic Range: 57 - 92 Srzwafs83Ljdqvutfouqq Data: Heparin Therapeutic Range: 57 - 92 Bxocnri30Pfqtjkauwzym Data: Test results are reported in [facility] [...]
--- OUTSIDE RECORDS SUMMARY | 2018-12-07 11:14 | XMS REPORT | CCD ---
:1935 Author Organization [facility] Care Team Providers Name Role Phone [...] Duration: 30 day, Stop date: 08/14/12 9:00:00 [place] 10/325 oral tablet 1 tab, Route: PO, [...] values reflect the clinical guidelines of the [place] [employer].5Interpretive Data: Adult reference range values reflect the clinical guidelines of the [place] [employer].6Interpretive Data: Adult reference range values reflect the clinical guidelines of the [place] [employer].7Result Comment: Critical Result(s) called to ya mckeon07/19/2012 05:04:48 CDT at _ by rahel. Read back OK.8Result Comment : Critical Result(s) called to hossein guillory at 07/17/2012 04:02:28 CDT bygavino. Read back OK.9Result Comment: critical called x [phone] (busy line, 2x)07/16/2012 19:31:52 CDT, aamir guillory [...] Data: Heparin Therapeutic Range: 57 - 92 Vucpoyf64Mgpsevhjcpwi Data: Heparin Therapeutic Range: 57 - 92 Wpevrmr87Fllldzzonpqv Data: Heparin Therapeutic Range: 57 - 92 Seconds
--- OUTSIDE RECORDS SUMMARY | 2018-12-07 11:14 | XMS REPORT | CCD ---
:1935 Author Organization [facility] Care Team Providers Name Role Phone Ramone Birch Consulting Provider [phone] Tod Doran Consulting Provider Allergies, Adverse Reactions, [...] mg, 1 supp, Route: 07/14/2012 2012 Discontinued [place], Drug form: SUPP, Daily, Dosing Weight 88.182, [...] Duration: 30 day, Stop date: 08/13/12 17:48:00 [place] 10/325 oral tablet 1 tab, Route: PO, [...] Duration: 30 day, Stop date: 08/14/12 9:09:00 [place] 10/325 oral tablet 1 tab, PO, Q4H, [...] values reflect the clinical guidelines of the [place] [employer].4Result Comment: Critical Result(s) called to [...] Catheterized FREE TEXT SOURCE: PRELIMINARY REPORTS Preliminary [id number],000/cfu/ml Gram Negative Rods , Identification And Sensitivity Pending
--- OUTSIDE RECORDS SUMMARY | 2018-12-07 11:15 | XMS REPORT | CCD ---
:1935 Author Organization [facility] Care Team Providers Name Role Phone Tod Doran Consulting Provider Allergies, Adverse Reactions, Alerts Substance Reaction Status HYDROcodone-Pseudoephedrine HCl Active Problem List Condition Effective Dates Status CAD - Coronary artery disease Active DM - Diabetes mellitus Active Heart attack Active Laminectomy Active O/E - pain Active Stented artery Active Medications Medication Instructions Start Date End Date Status [place] 10/325 oral tablet 1 tab, PO, BID, [...] Duration: 30 day, Stop date: 08/20/12 14:56:00 [place] 10/325 oral tablet 1 tab, Route: PO, [...] Results BEDSIDE GLUCOSE TESTING Most recent to [facility] 1 2 3 [Reference Range]: Gluc [...] Reportable Limit: 200 mg/dL.URINALYSIS Most recent to [facility] [Reference Range]: 1 2 3 UA [...] /LPF] 3 /LPF *HI* (07/21/2012 20:17:00) UA [place] Yeast [None Seen /HPF] Occasional /HPF *ABN* [...] the clinical guidelines of the [place] [employer].5Interpretive Data: Adult reference range values reflect the clinical guidelines of the [place] [employer].6Interpretive Data: Adult reference range values reflect the clinical guidelines of the [place] [employer].HEMATOLOGY Most recent to oldest 1 [...] anemia vs. anemia of chronic disease. CPT: 99348 *NA* (07/30/2012 14:00:00) PT [12.0-14.7 seconds] 19.4 [...] Data: Heparin Therapeutic Range: 57 - 92 Dfpxldy73Gtelauvyqyon Data: Heparin Therapeutic Range: 57 - 92 Ckdhkmg61Uydhrxjkesmw Data: Heparin Therapeutic Range: 57 - 92 [...]
--- OUTSIDE RECORDS SUMMARY | 2018-12-07 11:15 | XMS REPORT | CCD ---
:1935 Author Organization [facility] Care Team Providers Name Role Phone Gautam, [place] Juan Referring Provider Allergies, Adverse Reactions, Alerts [...] tablet Daily, 30 tab, Substitution Allowed, TAB [place] 5/325 oral tablet 1 tab, Route: PO, [...] Duration: 30 day, Stop date: 02/18/13 9:00:00 [place] 5/325 oral tablet 1 tab, PO, Q4H, [...] values reflect the clinical guidelines of the [place] [employer].4Interpretive Data: Adult reference range values reflect the clinical guidelines of the [place] [employer].HEMATOLOGY Most recent to oldest [Reference [...]
--- OUTSIDE RECORDS SUMMARY | 2018-12-07 11:15 | XMS REPORT | CCD ---
:1935 Author Organization [facility] Outpatient Imaging [place] Care Team Providers Name Role Phone Wagner [...]
--- OUTSIDE RECORDS SUMMARY | 2018-12-07 11:19 | XMS REPORT | Summary of Care ---
:1935 Author Organization [facility] Address [address] [address]- Encounter HQ Oneyda_cee(FIN) [id number] Date(s): 10/29/18 - 11/27/18 [facility] [address] [phone] Discharge Disposition: Home or Self Care Attending Physician: David Benedict MD Referring Physician: David Benedict MD Vital Signs Most recent to oldest [Reference Range]: 1 Height 152.4 cm (10/29/18 10:38 AM) Temperature Oral [96.4-99.1 DegF] 98.4 DegF (10/29/18 10:38 AM) Blood Pressure [90-140/60-90 mmHg] 104/59 mmHg (10/29/18 10:38 AM) Respiratory Rate [14-20 BRMIN] 16 BRMIN (10/29/18 10:38 AM) Peripheral Pulse Rate [60-100 bpm] 69 bpm (10/29/18 10:38 AM) Weight 68.091 kg (10/29/18 10:38 AM) Body Mass Index 29.32 m2 (10/29/18 10:38 AM) Problem List Condition Effective Dates Status Health [...] Substance Reaction Severity Status NKDA Active Medications aspirin 81 mg tablet, enteric coated 81 mg=1 tab, PO, Daily, # 90 tab, 3 Refill(s) Start Date: 10/29/18 Status: OrderedDULoxetine 30 mg oral delayed release capsule 30 mg=1 cap, PO, Daily, 0 Refill(s) Start Date: 10/29/18 Status: Orderedgabapentin 300 mg oral capsule 300 mg=1 cap, PO, BID, 0 Refill(s) Start Date: 10/29/18 Status: Ordered Results ELECTROLYTES Most recent to oldest [Reference Range]: 1 Sodium Lvl [135-145 mEq/L] 134 mEq/L *LOW* (10/29/18 10:38 AM) Potassium Lvl [3.5-5.1 mEq/L] 5.7 mEq/L *HI* (10/29/18 10:38 AM) Chloride Lvl [95-109 mEq/L] 101 mEq/L (10/29/18 10:38 AM) CO2 [24-32 mEq/L] 26 mEq/L (10/29/18 10:38 AM) AGAP [10.0-20.0 mEq/L] 12.7 mEq/L (10/29/18 10:38 AM) CHEM PANEL Most recent to oldest [Reference Range]: 1 Creatinine Lvl [0.50-1.40 mg/dL] 1.82 mg/dL *HI* (10/29/18 10:38 AM) eGFR 26 mL/min/1.73m2 1 *NA* (10/29/18 10:38 AM) BUN [7-22 mg/dL] 68 mg/dL *HI* (10/29/18 10:38 AM) B/C Ratio [6-25] 37 *HI* (10/29/18 10:38 AM) Glucose Lvl [70-99 mg/dL] 139 mg/dL *HI* (10/29/18 10:38 AM) Total Protein [6.4-8.4 g/dL] 6.8 g/dL (10/29/18 10:38 AM) Albumin Lvl [3.5-5.0 g/dL] 2.8 g/dL *LOW* (10/29/18 10:38 AM) Globulin [2.7-4.2 g/dL] 4.0 g/dL (10/29/18 10:38 AM) A/G Ratio [0.7-1.6] 0.7 (10/29/18 10:38 AM) Calcium Lvl [8.5-10.5 mg/dL] 9.1 mg/dL (10/29/18 10:38 AM) ALT [0-65 unit/L] 13 unit/L (10/29/18 10:38 AM) AST [0-37 unit/L] 19 unit/L (10/29/18 10:38 AM) Alk Phos [39-136 unit/L] 73 unit/L (10/29/18 10:38 AM) LDH [98-192 unit/L] 332 unit/L *HI* (10/29/18 10:38 AM) Bili Total [0.2-1.3 mg/dL] 0.4 mg/dL (10/29/18 10:38 AM) P-0-Jftplkfid [1.0-2.3 mg/L] 15.3 mg/L *HI* (10/29/18 10:38 AM) 1Result Comment: The eGFR is calculated using the CKD-EPI formula. In most young , healthy individualsthe eGFR will be >90 mL/min/1.73m2. The eGFR declines with age. An eGFR of 60-89 may be normal insome populations, particularly the elderly, for whom the [...] eGFR should be multiplied by the estimated BMI.IMMUNOLOGY Most recent to oldest [Reference Range]: 1 IgG Lvl [694-1618 mg/dL] 1080 mg/dL (10/29/18 10:38 AM) IgA Lvl [68.0-378.0 mg/dL] 130.0 mg/dL (10/29/18 10:38 AM) IgM Lvl [60.0-263.0 mg/dL] 20.0 mg/dL *LOW* (10/29/18 10:38 AM) Ferrum Free Light Chains [3.30-19.40 533.00 mg/L mg/L] *HI* (10/29/18 10:38 AM) Lambda Free Light Chains [5.70-26.30 24.43 mg/L mg/L] (10/29/18 10:38 AM) Ferrum/Lambda Free Light Chains Ratio 21.82 Ratio [0.26-1.65 Ratio] *HI* (10/29/18 10:38 AM) Albumin % [55.8-66.1 REL %] 48.9 REL % *LOW* (10/29/18 10:38 AM) Alpha 1 % [2.8-4.9 REL %] 8.9 REL % *HI* (10/29/18 10:38 AM) Alpha 2 % [7.0-11.9 REL %] 15.8 REL % *HI* (10/29/18 10:38 AM) Beta % [7.8-13.7 REL %] 10.5 REL % (10/29/18 10:38 AM) Gamma % [11.1-18.7 REL %] 15.9 REL % (10/29/18 10:38 AM) Albumin (SPE) [3.57-5.55 g/dL] 3.33 g/dL *LOW* (10/29/18 10:38 AM) Alpha 1 Glob [0.18-0.41 g/dL] 0.61 g/dL *HI* (10/29/18 10:38 AM) Alpha 2 Glob [0.45-1.00 g/dL] 1.07 g/dL *HI* (10/29/18 10:38 AM) Beta Glob [0.50-1.15 g/dL] 0.71 g/dL (10/29/18 10:38 AM) Gamma Glob [0.71-1.57 g/dL] 1.08 g/dL (10/29/18 10:38 AM) Tot Prot (SPE) [6.4-8.4 g/dL] 6.8 g/dL (10/29/18 10:38 AM) SPE Interp Capillary electrophoresis demonstrates a distortion of the gamma distribution curve. This requires further evaluation by serum and 24 hour urine immunofixation. As there is no definitive peak, quantification is not possible. Total protein level is within the reference range. Serum protein electrophoresis also shows reduced albumin level and increase in the alpha-1 and alpha-2 globulin fractions. The electronic medical record has been reviewed for relevant history. I have personally reviewed the test results and concur with the resident's interpretation. CPT 92250-FB *NA* (10/29/18 10:38 AM) EBONY Ser Pattern A constriction is present in the IgG alida with a corresponding constriction in the kappa light chain alida. The polyclonal gamma globulin background is preserved in all lanes. 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 Preservation of diffusely staining immunoreactivity indicates t hat the production of polyclonal immunoglobulins is not suppressed. Recommend repeating in 3-6 months for clarification. . Relevant medical information in the EMR was reviewed. I have personally reviewed the test results and concur with the resident's interpretation. CPT 97782-KG *NA* (10/29/18 10:38 AM) HEMATOLOGY Most recent to oldest [Reference Range]: 1 WBC [3.7-10.4 K/CMM] 37.1 K/CMM *HI* (10/29/18 10:38 AM) RBC [4.20-5.40 M/CMM] 2.11 M/CMM *LOW* (10/29/18 10:38 AM) Hgb [12.0-16.0 g/dL] 7.0 g/dL 1 *CRIT* (10/29/18 10:38 AM) Hct [36.0-48.0 %] 23.0 % *LOW* (10/29/18 10:38 AM) MCV [80.0-98.0 fL] 109.1 fL *HI* (10/29/18 10:38 AM) MCH [27.0-31.0 pg] 33.2 pg *HI* (10/29/18 10:38 AM) MCHC [32.0-36.0 g/dL] 30.4 g/dL *LOW* (10/29/18 10:38 AM) RDW [11.5-14.5 %] 18.3 % *HI* (10/29/18 10:38 AM) MPV [7.4-10.4 fL] 10.5 fL *HI* (10/29/18 10:38 AM) Platelet [133-450 K/CMM] 51 K/CMM *LOW* (10/29/18 10:38 AM) Segs [45.0-75.0 %] 4.0 % *LOW* (10/29/18 10:38 AM) Bands [0.0-11.0 %] 0.0 % (10/29/18 10:38 AM) Lymphocytes [20.0-40.0 %] 94.0 % *HI* (10/29/18 10:38 AM) Atypical Lymphs [<=0.0 %] 0.0 % (10/29/18 10:38 AM) Monocytes [2.0-12.0 %] 1.0 % *LOW* (10/29/18 10:38 AM) Eosinophils [0.0-4.0 %] 1.0 % (10/29/18 10:38 AM) Neutrophils # [1.5-8.1 K/CMM] 1.5 K/CMM (10/29/18 10:38 AM) Lymphocytes # [1.0-5.5 K/CMM] 34.9 K/CMM *HI* (10/29/18 10:38 AM) Monocytes # [0.0-0.8 K/CMM] 0.4 K/CMM (10/29/18 10:38 AM) Eosinophils # [0.0-0.5 K/CMM] 0.4 K/CMM (10/29/18 10:38 AM) Anisocyte [None Seen] 1+ *ABN* (10/29/18 10:38 AM) Polychrom slight *Unknown* (10/29/18 10:38 AM) Smudge slight *Unknown* (10/29/18 10:38 AM) Plt Morph Normal (10/29/18 10:38 AM) 1Result Comment: Critical Result(s) called to Elizabeth Coles at 10/29/2018 11:09 by ci. Read back OK. Immunizations Given and Recorded Vaccine Date Status [...] Reg Smoking Cessation Counseling No1 entered on: 10/29/18 1pt denies smoking Assessment and Plan No data available for this section
[2018-12-07 11:44] LABS: Blood Morphology Comment NOTED (NOT SEEN); Platelet Estimate DECR
[2018-12-07 11:45] LABS: Anisocytosis 1+; Hypochromasia 1+
--- NOTE | 2018-12-07 11:57 | RAD REPORT ---
EXAM DESCRIPTION: RAD - Chest Single View - 12/07/2018 11:48 am CLINICAL HISTORY: CHEST PAIN Chest pain. COMPARISON: Chest Single View dated 11/17/2018; Chest Single View dated 11/15/2018; Chest Single View dated 11/14/2018; Chest Single View dated 11/13/2018 FINDINGS: Portable technique limits examination quality. The lungs are grossly clear. The heart is mildly enlarged with single lead pacer/ defibrillator devic e present. No displaced fractures. IMPRESSION: No acute intrathoracic process suspected.
--- NOTE | 2018-12-07 12:43 | RAD REPORT ---
EXAM DESCRIPTION: US - Extremity Venous Uni Ltd - 12/07/2018 12:37 pm CLINICAL HISTORY: SWELLING Leg swelling and edema. COMPARISON: Extremity Nonvascular Complete dated 10/26/2018 FINDINGS: Right lower extremity venous system was interrogated with Doppler technique. Thrombus is p resent from the level of the right common femoral vein to the distal femoral vein. IMPRESSION: Positive for right femoral vein DVT.
--- NOTE | 2018-12-07 13:24 | ER ---
Nurse's Notes [facility] Name: Julia Groves Age: 83 yrs Sex: Female : 1935 Arrival Date: 12/07/2018 Time: 09:59 Bed 7 Private MD: Melva Viveros C Diagnosis: Acute embolism and thrombosis of deep veins of lower extremity Presentation: 12/07 10:05 Presenting complaint: Child states: Ultrasound completed yesterday and diagnosed with aa5 DVT to Right leg. Pt's states "she can't take a blood thinner because her platelets are too low". 10:05 Transition of care: patient was not received from another setting of care. aa5 10:05 Method Of Arrival: Wheelchair aa5 10:05 Acuity: RYAN 3 aa5 18:28 Onset of symptoms was December 07, 2018. Risk Assessment: Do you want to hurt yourself tw2 or someone else? Patient reports no desire to harm self or others. Initial Sepsis Screen: Does the patient meet any 2 criteria? No. Patient's initial sepsis screen is negative. Does the patient have a suspected source of infection? No. Patient's initial sepsis screen is negative. Care prior to arrival: None. Triage Assessment: 12/08 09:32 General: Appears in no apparent distress. comfortable. bp Historical: - Allergies: 12/07 10:10 No Known Allergies; aa5 - Home Meds: 18:44 aspirin 81 mg Oral chew 1 tab once daily [Active]; carvedilol 12.5 mg Oral tab 1 tab 2 tw2 times per day [Active]; bumetanide 1 mg Oral tab 1 tab 2 times per day [Active]; clopidogrel 75 mg Oral tab 1 tab once daily [Active]; duloxetine 30 mg Oral cpDR 1 cap once daily [Active]; cyclobenzaprine 10 mg Oral tab 0.5 tab daily [Active]; gabapentin 300 mg Oral cap 1 cap twice daily [Active]; cyanocobalamin (vitamin B-12) 500 mcg Oral tab daily [Active]; glimepiride 4 mg Oral tab 1 tab twice daily [Active]; Insulin Glargine 11Units Sub-Q nightly [Active]; Insulin Glargine 300 units/mL Sub-Q 10 unit nightly [Active]; Levemir 100 unit/mL subcutaneous soln [Active]; Levemir FlexTouch 100 unit/mL (3 mL) subcutaneous inpn 20 units nightly [Active]; potassium chloride 20 mEq Oral TbER 1 tab once daily [Active]; magnesium oxide 250 mg Oral tab [Active]; metformin 500 mg Oral tab 1 tab 2 times per day [Active]; potassium chloride 20 mEq Oral TbER 1 tab 2 times per day [Active]; pantoprazole 40 mg Oral TbEC 1 tab once daily [Active]; Slow-Mag 147 mg Oral three times a day [Active]; valsartan 40 mg Oral tab 1 tab 2 times per day [Active]; pravastatin 80 mg Oral tab 0.5 tab once daily [Active]; - PMHx: 10:11 Anemia; CAD; CLL; Lukemia; Diabetes - IDDM; GERD; Heart Murmur; heart valve aa5 replacement; Hypertension; laminectomy, lower back pain; Myocardial infarction; pacemaker/defibrillator; spinal stenosis; systolic heart failure; 10:10 Constipation; aa5 - PSHx: 10:11 heart valve replacement; aa5 - Immunization history:: Adult Immunizations up to date. - Social history:: Patient/guardian denies using alcohol, street drugs, The patient lives with family, Smoking status: Patient/guardian denies using tobacco. - Ebola Screening: : No symptoms or risks identified at this time. - Family history:: not pertinent. Screenin:23 Abuse screen: Denies threats or abuse. Denies injuries from another. Nutritional jl7 screening: No deficits noted. Tuberculosis screening: No symptoms or risk factors identified. 10:50 Fall Risk IV access (20 points). Ambulatory Aid- Gait- Weak (10 pts.). Mental Status- jl7 Oriented to own ability (0 pts). Total Agu[place] Fall Scale indicates Low Risk Score (25-44 pts). Fall prevention measures have been instituted. Side Rails Up X 2 Placed close to Nursing Station Frequent Obs/Assesments occuring Family Present and informed to notify staff if they need to leave bedside As available Patient and Family Educated on Fall Prevention Program and strategies. Assessment: 10:20 General: Appears in no apparent distress. uncomfortable, Behavior is calm, cooperative, jl7 appropriate for age. Pain: Denies pain. Neuro: Level of Consciousness is awake, alert, obeys commands, Oriented to person, place, time, situation. Cardiovascular: Murmur present Patient's skin is warm and dry. Edema is 1+ to left ankle and left foot is 3+ to right midcalf, right ankle and right foot. Respiratory: Reports shortness of breath at rest since yesterday Airway is patent Respiratory effort is even, unlabored, Respiratory pattern is regular, symmetrical, Breath sounds are clear in right upper lobe Breath sounds with wheezes in left upper lobe the patient has mild shortness of breath. GI: No signs and/or symptoms were reported involving the gastrointestinal system. : No signs and/or symptoms were reported regarding the genitourinary system. EENT: No signs and/or symptoms were reported regarding the EENT system. Derm: Skin is pink, warm \\T\\ dry. Musculoskeletal: Range of motion: limited in all extremities. 19:27 General: Appears in no apparent distress. comfortable, Behavior is calm, cooperative, ao appropriate for age, Receive report from RODRIGUE Valencia.. General: Patient awaiting on transfer. Pain: Denies pain. Neuro: Level of Consciousness is awake, alert, obeys commands, Oriented to person, place, time, situation, Moves all extremities. Full function Speech is normal, Facial symmetry appears normal. Cardiovascular: Murmur present Capillary refill < 3 seconds Patient's skin is warm and dry. Respiratory: Reports shortness of breath at rest Airway is patent Respiratory effort is even, unlabored, Respiratory pattern is regular, symmetrical. GI: No signs and/or symptoms were reported involving the gastrointestinal system. Abdomen is non-distended. : No signs and/or symptoms were reported regarding the genitourinary system. EENT: No signs and/or symptoms were reported regarding the EENT system. Derm: Skin is pink, warm \\T\\ dry. Skin temperature is warm. Musculoskeletal: Range of motion: limited in all extremities. 21:20 Reassessment: Patient appears in no apparent distress at this time. Patient and/or ao family updated on plan of care and expected duration. Pain level reassessed. Patient is alert, oriented x 3, equal unlabored respirations, skin warm/dry/pink. Family updated in POC. 22:30 Reassessment: Patient appears in no apparent distress at this time. Patient is alert, ao oriented x 3, equal unlabored respirations, skin warm/dry/pink. Waiting on transfer to be complete. Family updated by Charge nurse. 23:10 Reassessment: Patient appears in no apparent distress at this time. Blood transfusion ao complete see paper chart for documentation. 12/08 00:30 Reassessment: Patient appears in no apparent distress at this time. Patient and/or ao family updated on plan of care and expected duration. Pain level reassessed. Waiting on transfer to be complete. 04:00 Reassessment: Per charge nurse [facility] stated that there is no bed available ao and it may take up two days. Family was updated and Dr Lucero who is the only Dr in the ER was notified. Planing whether patient should still be waiting to be transferred or if patient should be admitted to the hospital. 05:35 Reassessment: Spoke with Miriam at [facility] [place] [phone] and states that pt is still on a waiting list and that they will contact us when bed is available. 05:55 Reassessment: Spoke with Dr Viveros about us being unable to transfer pt to [place] at this time. Explained that pts family was getting upset because that they want her to be treated. He states that she needs treatment that we cannot provided here. For us to draw CBC, Chem 7 and Mg level now and then contact Dr Willson at 0800. He will be here to speak with family and see pt shortly. 07:00 Reassessment: RECD REPORT FROM FELICITAS HUSAIN. 83YO WF P/W ABNORMAL LABS, R/O DVT. DVT bp CONFIRMED ON EXAM. PT DECLINED BY HOSPITALIST, TRANSFER IN PROCESS. 07:30 Reassessment: Pt resting in bed with eyes closed, respirations even and unlabored, skin aa5 is pale/warm/dry. POC is for Dr. Viveros to come and see the patient here in ER around 0800 today and for ER bilingual secretary to attempt to contact pt's oncologist located at [facility] this morning. Pt's family at bedside and notified of POC. Cardiovascular: Rhythm is sinus rhythm. 08:00 Reassessment: DR VIVEROS AT B/S. XFER ON HOLD PENDING RESPONSE FROM PT ONCOLOGIST, DR WILLSON.bp 08:39 Reassessment: BREAKFAST TRAY DELIVERED TO PT. AM MEDS PENDING DELIVERY FROM PHARMACY. bp 09:40 Reassessment: Pt cleaned of urinary and bowel incontinence. Soft brown stool noted. aa5 Clean brief applied. Pt repositioned in bed. Bed in low position, side rails x 2, call paulino within reach. . 11:17 Reassessment: PT VS STABLE ON MONITOR, AWAITING RESPONSE FROM PCP AND ONC PROVIDERS FOR bp DISPO. 12:22 Reassessment: spoke with Dr. Viveros, has not heard back from Dr. Willson about a bed iw assignment at [facility], will call in next 30 minutes. 15:16 Reassessment: NO DISPO AT THIS TIME. DR VIVEROS AND DR WILLSON CONTACTED FOR DISPOSITION. PT bp REMAINS VS STABLE. 17:25 Reassessment: PER PROVIDER, PT NOW TO BE ADMITTED. TRANSFER ON HOLD. bp Vital Signs: 12/07 10:17 BP 115 / 45 LA; Pulse 58; Resp 19; Pulse Ox 96% ; jl7 10:50 BP 104 / 42 RA; Pulse 57; Resp 17 S; Temp 98.8(O); Pulse Ox 96% on R/A; Pain 0/10; jl7 11:45 BP 104 / 43; Pulse 57; Resp 19 S; Pulse Ox 96% on R/A; jl7 12:30 BP 98 / 38; Pulse 57; Resp 16 S; Pulse Ox 97% on R/A; jl7 13:00 BP 98 / 41; Pulse 59; Resp 18 S; Pulse Ox 96% on R/A; jl7 13:33 BP 108 / 42; Pulse 59; Resp 16 S; Pulse Ox 95% on R/A; jl7 15:12 BP 103 / 43; Pulse 62; Resp 19; Pulse Ox 95% on R/A; tw2 15:39 BP 91 / 48; Pulse 63; Resp 17 S; Pulse Ox 93% on R/A; jl7 16:20 BP 105 / 37; Pulse 63; Resp 18 S; Pulse Ox 95% on R/A; jl7 17:00 BP 105 / 34; Pulse 63; Resp 16 S; Pulse Ox 92% on R/A; jl7 17:30 BP 110 / 37; Pulse 67; Resp 17 S; Pulse Ox 93% on R/A; jl7 18:00 BP 93 / 47; Pulse 67; Resp 16 S; Pulse Ox 89% on R/A; jl7 19:33 BP 116 / 44; Pulse 68; Resp 18; Pulse Ox 97% on R/A; ea 20:32 Temp 100.7(O); ao 21:00 BP 109 / 39; Pulse 69; Resp 16; Pulse Ox 96% ; ao 22:00 BP 114 / 41; Pulse 69; Resp 16; Temp 96; ao 23:00 BP 111 / 42; Pulse 66; Resp 18; Pulse Ox 97% on R/A; ao 02/12 00:00 BP 99 / 37; Pulse 60; Resp 16; Pulse Ox 98% on NC; Pain 0/10; ao 01:52 BP 110 / 46; Pulse 65; Resp 16; Pulse Ox 99% ; ao 02:50 BP 100 / 36; Pulse 62; Resp 18; Pulse Ox 99% on 2 lpm NC; ao 03:30 BP 106 / 41; Pulse 59; Resp 16; Pulse Ox 99% on 2 lpm NC; ao 04:30 BP 103 / 45; Pulse 56; Resp 18; Pulse Ox 99% on R/A; ao 05:30 BP 97 / 37; Pulse 57; Resp 18; Pulse Ox 100% ; ao 06:43 BP 107 / 35; Pulse 68; Resp 16; Pulse Ox 95% on 2 lpm NC; ao 07:30 BP 107 / 55; Pulse 60; Resp 23; Pulse Ox 100% ; bp 07:32 Temp 97.8(TE); aa5 08:12 BP 114 / 45; Pulse 60; Resp 19; Pulse Ox 100% ; bp 09:31 BP 124 / 51; Pulse 69; Resp 24; Pulse Ox 94% ; bp 11:16 BP 123 / 54; Pulse 68; Resp 21; Pulse Ox 100% ; bp 13:33 BP 133 / 43; Pulse 72; Resp 16; Pulse Ox 97% ; bp 15:15 BP 129 / 47; Pulse 74; Resp 25; Pulse Ox 100% ; bp 17:00 BP 140 / 53; Pulse 75; Resp 24; Pulse Ox 97% ; bp 18:12 BP 134 / 63; Pulse 80; Resp 17; Pulse Ox 92% ; bp ED Course: 12/07 09:59 Patient arrived in ED. mr 10:00 Melva Viveros MD is Private Physician. mr 10:00 Arm band placed on. aa5 10:02 Patient placed in an exam room, on a stretcher. aa5 10:06 Chinyere Larose MD is Attending Physician. ma2 10:12 Triage completed. aa5 10:17 Erik Razo, RODRIGUE is Primary Nurse. jl7 10:23 Patient has correct armband on for positive identification. Placed in gown. Bed in low jl7 position. Call light in reach. Side rails up X2. monitoring and evaluation advisor on. Pulse ox on. NIBP on. Warm blanket given. 10:50 Initial lab(s) drawn, by me, sent to lab. Inserted saline lock: 22 gauge in left jl7 forearm, using aseptic technique. Blood collected. 11:50 Chest Single View XRAY In Process Unspecified. EDMS 12:38 Extremity Venous Uni Ltd US In Process Unspecified. EDMS 13:00 Cleaned of incontinence. Linen changed. jl7 13:31 transfer initiated with Marcella at the [facility] Transfer Center. eb 14:[address] Willson from [facility] with Dr. Larose for patient transfer eb consultation. 14:21 spoke with Marcella at the [facility] transfer [place], Dr. Willson and Dr. Larose eb have made the transfer non-emergent so a patient demographic must be faxed first. 17:04 called the [facility] to check on status of the transfer and told eb the patient has been placed on a bed wait list and that once a room has been assigned to them they will call us to complete the transfer. 19:12 Report given to Saw, RN, awaiting blood from lab for blood transfusion. jl7 21:20 notified transfer center at [facility] to see the status on the pt's transfer mw2 they stated it will be 5 hours for a bed. 12/08 07:14 Report given to Report given to Naomie, RODRIGUE. ao 18:08 Melva Viveros MD is Hospitalizing Provider. rn 18:12 No provider procedures requiring assistance completed. Patient admitted, IV remains in bp place. Administered Medications: 12/07 13:57 Drug: Lovenox 80 mg Route: Sub-Q; Site: right lower abdomen; jl7 14:30 Follow up: Response: No adverse reaction jl7 20:38 Drug: Tylenol 1000 mg Route: PO; ea 22:00 Follow up: Response: No adverse reaction ao 21:23 Drug: Gabapentin 600 mg Route: PO; ao 12/08 06:41 Follow up: Response: No adverse reaction ao 08:46 Drug: Gabapentin 300 mg Route: PO; bp 09:32 Follow up: Response: No adverse reaction bp 08:47 Drug: Cymbalta 30 mg Route: PO; bp 09:32 Follow up: Response: No adverse reaction bp 13:00 Drug: Lovenox 40 mg Route: Sub-Q; Site: right lower abdomen; bp 14:28 Follow up: Response: No adverse reaction bp Point of Care Testing: Blood Glucose: 12/07 19:27 Blood Glucose: 137 mg/dL; ao Ranges: Outcome: 13:24 ER care complete, transfer ordered by MD. alanis 12/08 18:08 Decision to Hospitalize by Provider. rn 18:11 Admitted to Med/surg accompanied by tech, family with patient, via stretcher, room 229, bp with chart, Report called to CARITO HUSAIN 18:12 Condition: stable bp 18:12 Instructed on the need for admit. 18:27 Patient left the ED. bp Signatures: [facility] Solitario Debo LamSerenity, RN RODRIGUE Ruthie Nolasco RN RN iw Nieto, Roman, MD MD rn Calderon, Audri RN Felicitas Mckeon RN Dionna Younger RN RN 2 Erik Razo RN RN jl7 Ursula Kidd RN Randy Crain ea RN RN bp Chinyere Larose MD MD utMoni Jain 2 Abril Linares Corrections: (The following items were deleted from the chart) 12/07 10:12 10:11 PMHx: CONSTAPATION; aa5 aa5 10:52 10:17 BP 115 / 45; Pulse 58bpm; Resp 19bpm; Pulse Ox 96%; jl7 jl7 10:52 10:50 BP 104 / 42; Pulse 57bpm; Resp 17bpm; Spontaneous; Pulse Ox 96% RA; Temp 98.8F jl7 Oral; Pain 0/10; jl7 12/08 09:50 09:49 BP 124 / 51; Pulse 68bpm; Resp 14bpm; Pulse Ox 99%; bp bp
--- NOTE | 2018-12-07 13:24 | EDPHYS ---
Physician Documentation [facility] Name: Julia Groves Age: 83 yrs Sex: Female : 1935 Arrival Date: 12/07/2018 Time: 09:59 Bed 7 Private MD: Melva Chaves C ED Physician Chinyere Larose HPI: 12/07 10:19 This 83 yrs old Female presents to ER via Wheelchair with complaints of ma2 Abnormal Lab Results, Blood Clots. 10:19 The complaints affect the lateral aspect of right knee, lateral aspect of right calf ma2 and right ankle. Onset: The symptoms/episode began/occurred gradually, 2 week(s) ago. Associated signs and symptoms: Pertinent positives: swelling. Severity of symptoms: At their worst the symptoms were moderate, in the emergency department the symptoms are unchanged. The patient has not experienced similar symptoms in the past. hx of cll not taking any blood thinner or asa sent here from the clinic for right common femoral dvt and hb of 7.2 she does not have any acute symptoms has right le edema for few weeks that is gradual no sob or cough . Historical: - Allergies: 10:10 No Known Allergies; aa5 - Home Meds: 18:44 aspirin 81 mg Oral chew 1 tab once daily [Active]; carvedilol 12.5 mg Oral tab 1 tab 2 tw2 times per day [Active]; bumetanide 1 mg Oral tab 1 tab 2 times per day [Active]; clopidogrel 75 mg Oral tab 1 tab once daily [Active]; duloxetine 30 mg Oral cpDR 1 cap once daily [Active]; cyclobenzaprine 10 mg Oral tab 0.5 tab daily [Active]; gabapentin 300 mg Oral cap 1 cap twice daily [Active]; cyanocobalamin (vitamin B-12) 500 mcg Oral tab daily [Active]; glimepiride 4 mg Oral tab 1 tab twice daily [Active]; Insulin Glargine 11Units Sub-Q nightly [Active]; Insulin Glargine 300 units/mL Sub-Q 10 unit nightly [Active]; Levemir 100 unit/mL subcutaneous soln [Active]; Levemir FlexTouch 100 unit/mL (3 mL) subcutaneous inpn 20 units nightly [Active]; potassium chloride 20 mEq Oral TbER 1 tab once daily [Active]; magnesium oxide 250 mg Oral tab [Active]; metformin 500 mg Oral tab 1 tab 2 times per day [Active]; potassium chloride 20 mEq Oral TbER 1 tab 2 times per day [Active]; pantoprazole 40 mg Oral TbEC 1 tab once daily [Active]; Slow-Mag 147 mg Oral three times a day [Active]; valsartan 40 mg Oral tab 1 tab 2 times per day [Active]; pravastatin 80 mg Oral tab 0.5 tab once daily [Active]; - PMHx: 10:11 Anemia; CAD; CLL; Lukemia; Diabetes - IDDM; GERD; Heart Murmur; heart valve aa5 replacement; Hypertension; laminectomy, lower back pain; Myocardial infarction; pacemaker/defibrillator; spinal stenosis; systolic heart failure; 10:10 Constipation; aa5 - PSHx: 10:11 heart valve replacement; aa5 - Immunization history:: Adult Immunizations up to date. - Social history:: Patient/guardian denies using alcohol, street drugs, The patient lives with family, Smoking status: Patient/guardian denies using tobacco. - Ebola Screening: : No symptoms or risks identified at this time. - Family history:: not pertinent. ROS: 10:19 Constitutional: Negative for fever, chills, and weight loss, Cardiovascular: Negative ma2 for chest pain, palpitations, and edema, Respiratory: Negative for shortness of breath, cough, wheezing, and pleuritic chest pain, Abdomen/GI: Negative for abdominal pain, nausea, diarrhea, and constipation. 10:19 MS/extremity: Positive for swelling, Negative for injury or acute deformity, bite, deformity, erythema, tingling, warmth. 10:19 All other systems are negative. Exam: 10:19 Constitutional: This is a well developed, well nourished patient who is awake, alert, ma2 and in no acute distress. Chest/axilla: Normal chest wall appearance and motion. Nontender with no deformity. No lesions are appreciated. Cardiovascular: Regular rate and rhythm with a normal S1 and S2. No gallops, murmurs, or rubs. Normal PMI, no JVD. No pulse deficits. Respiratory: Lungs have equal breath sounds bilaterally, clear to auscultation and percussion. No rales, rhonchi or wheezes noted. No increased work of breathing, no retractions or nasal flaring. 10:19 Musculoskeletal/extremity: Extremities: Circulation is intact in all extremities. Sensation intact. DVT Exam: no pain, no tenderness, no appreciated bluish discoloration, no erythema, no increased warmth, swelling, that is moderate, of the right leg. Vital Signs: 10:17 BP 115 / 45 LA; Pulse 58; Resp 19; Pulse Ox 96% ; jl7 10:50 BP 104 / 42 RA; Pulse 57; Resp 17 S; Temp 98.8(O); Pulse Ox 96% on R/A; Pain 0/10; jl7 11:45 BP 104 / 43; Pulse 57; Resp 19 S; Pulse Ox 96% on R/A; jl7 12:30 BP 98 / 38; Pulse 57; Resp 16 S; Pulse Ox 97% on R/A; jl7 13:00 BP 98 / 41; Pulse 59; Resp 18 S; Pulse Ox 96% on R/A; jl7 13:33 BP 108 / 42; Pulse 59; Resp 16 S; Pulse Ox 95% on R/A; jl7 15:12 BP 103 / 43; Pulse 62; Resp 19; Pulse Ox 95% on R/A; tw2 15:39 BP 91 / 48; Pulse 63; Resp 17 S; Pulse Ox 93% on R/A; jl7 16:20 BP 105 / 37; Pulse 63; Resp 18 S; Pulse Ox 95% on R/A; jl7 17:00 BP 105 / 34; Pulse 63; Resp 16 S; Pulse Ox 92% on R/A; jl7 17:30 BP 110 / 37; Pulse 67; Resp 17 S; Pulse Ox 93% on R/A; jl7 18:00 BP 93 / 47; Pulse 67; Resp 16 S; Pulse Ox 89% on R/A; jl7 19:33 BP 116 / 44; Pulse 68; Resp 18; Pulse Ox 97% on R/A; ea 20:32 Temp 100.7(O); ao 21:00 BP 109 / 39; Pulse 69; Resp 16; Pulse Ox 96% ; ao 22:00 BP 114 / 41; Pulse 69; Resp 16; Temp 96; ao 23:00 BP 111 / 42; Pulse 66; Resp 18; Pulse Ox 97% on R/A; ao 12/08 00:00 BP 99 / 37; Pulse 60; Resp 16; Pulse Ox 98% on NC; Pain 0/10; ao 01:52 BP 110 / 46; Pulse 65; Resp 16; Pulse Ox 99% ; ao 02:50 BP 100 / 36; Pulse 62; Resp 18; Pulse Ox 99% on 2 lpm NC; ao 03:30 BP 106 / 41; Pulse 59; Resp 16; Pulse Ox 99% on 2 lpm NC; ao 04:30 BP 103 / 45; Pulse 56; Resp 18; Pulse Ox 99% on R/A; ao 05:30 BP 97 / 37; Pulse 57; Resp 18; Pulse Ox 100% ; ao 06:43 BP 107 / 35; Pulse 68; Resp 16; Pulse Ox 95% on 2 lpm NC; ao 07:30 BP 107 / 55; Pulse 60; Resp 23; Pulse Ox 100% ; bp 07:32 Temp 97.8(TE); aa5 08:12 BP 114 / 45; Pulse 60; Resp 19; Pulse Ox 100% ; bp 09:31 BP 124 / 51; Pulse 69; Resp 24; Pulse Ox 94% ; bp 11:16 BP 123 / 54; Pulse 68; Resp 21; Pulse Ox 100% ; bp 13:33 BP 133 / 43; Pulse 72; Resp 16; Pulse Ox 97% ; bp 15:15 BP 129 / 47; Pulse 74; Resp 25; Pulse Ox 100% ; bp 17:00 BP 140 / 53; Pulse 75; Resp 24; Pulse Ox 97% ; bp 18:12 BP 134 / 63; Pulse 80; Resp 17; Pulse Ox 92% ; bp MDM: 12/07 10:06 Patient medically screened. ma2 10:19 Differential diagnosis: DVT anemia. ma2 13:20 Data reviewed: vital signs, nurses notes. Counseling: I had a detailed discussion with ma2 the patient and/or guardian regarding: the historical points, exam findings, and any diagnostic results supporting the discharge/admit diagnosis, the presence of at least one elevated blood pressure reading (>120/80) during this emergency department visit, the need to transfer to another facility. ED course: patient has DVT and anemia in the setting of CLL, and CHF discussed with dr. chaves who recommend transfer for higher level of care as she need hem-onc service that is not available here and may need IVC filter that also not available here as well, discussed with her heme/onc dr. Lucas who accepted her to be transfer ER to ER to [facility], and to be under his care and her research tech care dr. Askew . 13:24 ED course: dr. Lucas recommends starting Lovenox . [facility] 14:23 ED course: dr. lucas called back nd recommend transfuse 1 u of regular pRBC . [facility] 12/08 12:56 ED course: Spoke with Dr. Chaves, who is coordinating with patient's research tech and rn circuit board repair technician, they requested lovenox 40 SQ, and believe they will have bed this afternoon, still waiting on transfer. . 12/07 10:18 Order name: CBC with Diff; Complete Time: 12:11 [facility] 12/07 10:18 Order name: CMP; Complete Time: 11:46 [facility] 12/07 10:18 Order name: Troponin (emerg Dept Use Only); Complete Time: 11:46 [facility] 12/07 10:18 Order name: BNP; Complete Time: 11:46 [facility] 12/07 10:18 Order name: PT-INR; Complete Time: 11:46 [facility] 12/07 11:09 Order name: Manual Differential; Complete Time: 12:11 [facility] 12/07 10:18 Order name: Chest Single View XRAY; Complete Time: 12:11 [facility] 12/07 12:14 Order name: Extremity Venous Uni Ltd US; Complete Time: 13:07 [facility] 12/07 18:30 Order name: Type And Screen iw 12/07 19:23 Order name: Packed RBC Leukored -1 [facility] 12/08 05:58 Order name: CBC w/o diff [facility] 12/08 05:58 Order name: Chem 7 [facility] 12/08 05:59 Order name: Magnesium [facility] 12/07 18:15 Order name: Diet Regular; Complete Time: 18:15 7 12/08 07:29 Order name: Diet Ada 1800 Thiago; Complete Time: 07:30 aa5 Administered Medications: 12/07 13:57 Drug: Lovenox 80 mg Route: Sub-Q; Site: right lower abdomen; jl7 14:30 Follow up: Response: No adverse reaction jl7 20:38 Drug: Tylenol 1000 mg Route: PO; ea 22:00 Follow up: Response: No adverse reaction ao 21:23 Drug: Gabapentin 600 mg Route: PO; ao 12/08 06:41 Follow up: Response: No adverse reaction ao 08:46 Drug: Gabapentin 300 mg Route: PO; bp 09:32 Follow up: Response: No adverse reaction bp 08:47 Drug: Cymbalta 30 mg Route: PO; bp 09:32 Follow up: Response: No adverse reaction bp 13:00 Drug: Lovenox 40 mg Route: Sub-Q; Site: right lower abdomen; bp 14:28 Follow up: Response: No adverse reaction bp Point of Care Testing: Blood Glucose: 12/07 19:27 Blood Glucose: 137 mg/dL; ao Ranges: Critical Glucose Levels:Adult <50 mg/dl or >400 mg/dl <40 mg/dl or >180 mg/dl Disposition: 12/08/18 18:08 Hospitalization ordered by Melva Chaves for Inpatient Admission. Preliminary diagnosis is Acute embolism and thrombosis of deep veins of lower extremity. - Bed requested for Telemetry/MedSurg (Inpatient). - Status is Inpatient Admission. bp - Condition is Stable. - Problem is new. - Symptoms have improved. UTI on Admission? No Signatures: Dispatcher [employer] EDMS Ruthie Nolasco RN RN iw Marco Antonio Lemon MD MD rn Calderon, Audri RN RN aa5 Ryland Solis RN RN Dionna Morgan, RN RN tw2 Erik Razo RN RN jl7 Ursula Kidd, RN Randy Crain ea, RN RN bp Chinyere Larose MD MD ma2 Corrections: (The following items were deleted from the chart) 10:12 10:11 PMHx: CONSTAPATION; aa5 aa5 12/08 18:07 12/07 13:24 12/07/2018 13:24 Transfer ordered to [facility]. rn Diagnosis is Anemia in neoplastic disease; Acute embolism and thrombosis of deep veins of lower extremity. Reason for transfer: Higher level of care. Accepting physician is Dr. Lucas and Dr. Askew . Condition is Stable. Problem is new. Symptoms are unchanged. ma2 12/08 18:21 18:08 Hospitalization Ordered by Melva Chaves MD for Inpatient Admission. Preliminary iw diagnosis is Acute embolism and thrombosis of deep veins of lower extremity. Bed requested for Telemetry/MedSurg (Inpatient). Status is Inpatient Admission. Condition is Stable. Problem is new. Symptoms have improved. UTI on Admission? No. rn 18:27 18:21 12/08/2018 18:08 Hospitalization Ordered by A Daniela OLIVER for Inpatient Admission. bp Preliminary diagnosis is Acute embolism and thrombosis of deep veins of lower extremity. Bed requested for Telemetry/MedSurg (Inpatient). Status is Inpatient Admission. Condition is Stable. Problem is new. Symptoms have improved. UTI on Admission? No. iw
[2018-12-07] MEDS ORDERED: ENOXAPARIN 80 MG/0.8 ML SQ ONE (13:49)
[2018-12-07] MEDS ORDERED: ACETAMINOPHEN 500 MG TAB ONE (20:44)
[2018-12-07] MEDS ORDERED: GABAPENTIN 300 MG CAP ONE (21:19)
[2018-12-08 06:30] LABS: Hematocrit 22.1 % (36.0-45.0); MPV 10.2 fL (7.6-11.3); RBC Red Blood Cell Count 2.25 M/uL (3.86-4.86)
[2018-12-08 06:42] LABS: Magnesium 2.3 mg/dL (1.8-2.4); Potassium 4.4 mmol/L (3.5-5.1)
[2018-12-08] MEDS ORDERED: DULOXETINE 30 MG CAP PO ONE (08:30)
[2018-12-08] MEDS ORDERED: GABAPENTIN 300 MG CAP ONE (08:54)
[2018-12-08] MEDS ORDERED: ONDANSETRON 4 MG/2 ML VIAL IV PRN (18:55)
[2018-12-08] MEDS ORDERED: ACETAMINOPHEN 500 MG TAB PO PRN (18:55)
[2018-12-08 19:53] VITALS: BMI 27.8
[2018-12-08] MEDS ORDERED: ENOXAPARIN 40 MG/0.4 ML SQ SCH (21:00)
[2018-12-08] MEDS ORDERED: FUROSEMIDE 40 MG/4 ML VIAL IV ONE (21:05)
[2018-12-08] MEDS: ALBUTEROL 2.5 MG/3 ML NEB SOL NEB SCH (21:09)
[2018-12-08] MEDS ORDERED: POLYETHYL GLY 3350 17 GM/DOSE PO PRN (21:14)
[2018-12-08] MEDS: ATORVASTATIN 10 MG TAB PO SCH ×2 (22:15→22:55)
[2018-12-08] MEDS ORDERED: ALBUTEROL 2.5 MG/3 ML NEB SOL ONE (22:15)
[2018-12-09] MEDS ORDERED: PIPER/TAZO/NS 3.375gm 3.375 GM/100 ML BAG IV ONE (00:30)
[2018-12-09] MEDS: ALBUTEROL 2.5 MG/3 ML NEB SOL NEB SCH ×6 (00:58→20:00)
[2018-12-09] MEDS ORDERED: PIPER/TAZO/NS 2.25gm 2.25 GM/50 ML BAG IVPB SCH (01:00)
[2018-12-09] MEDS ORDERED: PIPER/TAZO/NS 3.375gm 3.375 GM/100 ML BAG ONE (01:00)
[2018-12-09 06:04] LABS: Absolute Lymphocytes (CBC) 30.9 K/uL (0.7-4.9); Absolute Monocytes 0.3 K/uL (0.1-1.3); Absolute Neutrophil 1.5 K/uL (1.8-8.0); Basophils % 0.2 % (0-1.3); Eosinophils % 0.1 % (0-4.4); Hematocrit 20.9 % (36.0-45.0); Lymphocytes % 94.2 % (15.3-44.8); MPV 10.1 fL (7.6-11.3); Monocytes % 0.9 % (3.3-12.3); RBC Red Blood Cell Count 2.11 M/uL (3.86-4.86)
[2018-12-09] MEDS: PANTOPRAZOLE 40MG TABLET PO SCH (06:05)
[2018-12-09 06:10] LABS: Potassium 4.2 mmol/L (3.5-5.1)
[2018-12-09] MEDS: ENOXAPARIN 40 MG/0.4 ML SQ SCH ×2 (08:52→22:00)
[2018-12-09] MEDS: PIPER/TAZO/NS 2.25gm 2.25 GM/50 ML BAG IVPB SCH ×2 (08:53→17:32)
[2018-12-09] MEDS: CYANOCOBALAMIN 1,000 MCG TAB PO SCH (08:54)
[2018-12-09] MEDS: GABAPENTIN 300 MG CAP PO SCH ×2 (08:54→21:57)
[2018-12-09] MEDS: FERROUS SULFATE 325 MG TAB PO SCH (08:54)
[2018-12-09] MEDS: METOPROLOL XL 25 MG TAB PO SCH ×2 (08:54→21:57)
[2018-12-09] MEDS: AMITRIPTYLINE 10 MG TAB PO SCH ×2 (08:55→22:00)
[2018-12-09] MEDS: AMIODARONE HCL 200 MG TAB PO SCH (08:55)
[2018-12-09] MEDS ORDERED: ENOXAPARIN 30 MG/0.3 ML SQ SCH (09:00)
[2018-12-09] MEDS ORDERED: FUROSEMIDE 20 MG/ 2ML VIAL IV SCH (10:09)
--- NOTE | 2018-12-09 10:43 | RAD REPORT ---
EXAM DESCRIPTION: RAD - Chest Single View - 12/08/2018 9:36 pm CLINICAL HISTORY: The patient is 83 years old and is Female; fever, rule out pneumonia. COMPARISON: Chest radiograph December 07, 2018. FINDINGS: Lungs: Enlargement of the main pulmonary vessels is noted. Interval development of extensive interstitial opacities throughout the lungs is noted. Pleural space: Unremarkable. No pneumothorax. Heart: The cardiac silhouette is enlarged. Mediastinum: Unremarkable. Bones/joints: The bones and soft tissues are stable. Soft tissues: Calcification within the left axilla is noted. Tubes, lines and devices: A single left-sided pacemaker is present. IMPRESSION: Interval development of extensive interstitial opacities throughout the lungs. Given the short interval time of development, findings suggest an edematous process. No lobar consolidation at this time. Electronically signed by Manasa Gonzalez MD 12/08/2018 9:52 PM PURCHASE REQUEST EDITOR Due to temporary technical issues with the PACS/Fluency reporting system, reports are being signed by the in house radiologist as a courtesy to ensure prompt reporting. The interpreting radiologist is f ully responsible for the content of the report.
[2018-12-09] MEDS ORDERED: NA CHLORIDE 0.9% 250 ML ONE (10:47)
[2018-12-09] MEDS: ACETAMINOPHEN 500 MG TAB PO SCH ×2 (11:06→14:43)
[2018-12-09] MEDS: DIPHENHYDRAMINE 25 MG TAB/CAP PO SCH ×2 (11:07→14:44)
[2018-12-09 19:38] LABS: Hematocrit 26.3 % (36.0-45.0)
[2018-12-09] MEDS: ATORVASTATIN 10 MG TAB PO SCH (21:57)
[2018-12-10] MEDS: PIPER/TAZO/NS 2.25gm 2.25 GM/50 ML BAG IVPB SCH ×3 (00:23→16:20)
[2018-12-10] MEDS: ALBUTEROL 2.5 MG/3 ML NEB SOL NEB SCH ×7 (04:00→23:05)
[2018-12-10] MEDS: PANTOPRAZOLE 40MG TABLET PO SCH (05:36)
[2018-12-10 05:59] LABS: Absolute Lymphocytes (CBC) 29.4 K/uL (0.7-4.9); Absolute Monocytes 0.3 K/uL (0.1-1.3); Absolute Neutrophil 1.6 K/uL (1.8-8.0); Basophils % 0.3 % (0-1.3); Eosinophils % 0.1 % (0-4.4); Lymphocytes % 93.6 % (15.3-44.8); MPV 9.2 fL (7.6-11.3); Monocytes % 0.9 % (3.3-12.3); RBC Red Blood Cell Count 2.97 M/uL (3.86-4.86)
[2018-12-10 06:06] LABS: Potassium 4.4 mmol/L (3.5-5.1)
--- NOTE | 2018-12-10 06:28 | PN ---
Date of Progress Note: 12/09/2018 Subjective: The patient was seen this morning for followup. She was feeling much better. She was s miling, communicating lot better today than yesterday. Her granddaughter was present with her at bed side. Breathing is better this morning compared to yesterday evening. Objective: Vital Signs: Reviewed. HEENT: Examination unremarkable. Lungs: Bilateral rales noted in lower lung quijano, not in any respiratory distress. Heart: Sounds normal. Abdomen: Soft. Bowel sounds normal. No guarding, rigidity, tenderness, or distention. Extremities: Right leg edema remains unchanged. Left leg; no edema. Laboratory Data: White count 32.8, hemoglobin 6.7, and platelets 44. Sodium 139, potassium 4.2, chl oride 104, bicarb 27, BUN 58, creatinine 1.24, and glucose 186. Impression: 1.Pneumonia. 2.Congestive heart failure. 3.Anemia. 4.Thrombocytopenia. 5.Chronic lymphocytic leukemia. 6.Deep venous thrombosis, right leg. 7.Diabetes mellitus. 8.Coronary artery disease. Plan: We will go ahead and give 2 units of packed red cell blood transfusion per order. Platelet co unt is stable. We will continue Lovenox per order. Her hemoglobin will be repeated after blood bledsoe sfusion gets completed today. We will give Benadryl and Tylenol prior to blood transfusion and betwe en first and second unit of blood transfusion. We will give her Lasix per order. I did once again c tracie with Dr. Benedict couple of times today, and he is trying his best to try to get the patient [facility]; but unfortunately, that particular hospital still does not have any bed available. As soon as bed becomes available, the patient will be transferred, but we do not know whe n bed will become available for her. I did contact the patient's daughter this evening, and details were discussed with her as well. I will see her tomorrow for followup. DELANO/MODL Voice ID: [id number] Report ID: [id number]
--- NOTE | 2018-12-10 06:28 | HP ---
Date of Admission: 12/08/2018 Chief Complaint: Right leg swelling. History Of Present Illness: This is a very pleasant 83-year-old female patient, who was recently adm itted to the hospital and was discharged to go to custodial. The patient was doing okay until sta rted to have some swelling of the right leg and venous Doppler was done at the custodial, which ca me back showing DVT of the right lower extremity, so the patient was sent to emergency room. After s he came into ER, ER physician contacted me with this information. He was advised to go ahead and rep eat venous Doppler for confirmation, which was done yesterday and the patient was noted to have acute DVT of the right lower extremity. The patient also has CLL problem with anemia and thrombocytopenia and her hemoglobin was low at 7, platelet count was 48,000. With this acute DVT problem in setting of thrombocytopenia, my recommendation was for her to go to [place] under care of her Oncologist, Dr. Benedict. ER physician per my request, did contact this particular physician, who accepted the patient under his care, but [facility] did not have any bed available, so the patient was in [facility] emergency room all day yesterday waiting for the bed assignment and meanwhile, she did receive 1 u nit of blood transfusion and Dr. Benedict did communicate with the ER physician yesterday and suggested t o use Lovenox, so 1 dose of Lovenox 80 mg subcutaneous injection was given yesterday afternoon. When I saw her this morning, she was in the emergency room, lying in bed, not in distress. Her daughters were present at bedside. Denies any shortness of breath. Allergies: THE PATIENT HAD SIDE EFFECT FROM ATORVASTATIN CAUSING MYALGIA, GEMFIBROZIL CAUSING NAUSEA AND VOMITING, SIMVASTATIN CAUSING NAUSEA. Medications: List reviewed. Review of Systems: Cardiovascular: Right leg swelling. Constitutional: Significant generalized weakness. All other systems reviewed and negative Social History: Negative for smoking or alcohol use. Family History: Significant for pulmonary fibrosis and hypertension. Past Surgical History: Significant for spinal stenosis in 2011, AICD placement in 2012 and at that t kriss, her ejection fraction was around 25%, TAVR procedure in 10/2017 for aortic wall stenosis, tubal ligation, right hand ulnar nerve surgery, coronary artery angioplasty with stent placement x2 in 2004 , cataract surgery, appendectomy, breast biopsy, hysterectomy, surgery for pterygium. Past Medical History: Significant for chronic kidney disease stage 3, CLL, aortic wall stenosis, dep ression, atrial fibrillation, diabetes mellitus, hyperlipidemia, thrombocytopenia, anemia, coronary a rtery disease, diverticulosis, gastroesophageal reflux disease, hypertension, chronic systolic conges tive heart failure, but ejection fraction is improved to normal now. He has diabetic neuropathy caus ing significant pain to both lower extremity, but this pain has improved with medications. Physical Examination: Vital Signs: When she first came into emergency room, temperature 98.8, pulse 57, respiratory rate 1 7, blood pressure 104/42. This morning when I saw her, pulse 60, respiratory rate 23, blood pressure 107/55, oxygen saturation 100%. General: The patient appears weaker than normal, not in any distress. HEENT: Head atraumatic, normocephalic. Conjunctivae nonerythematous. Sclerae white. Mouth, no thr ush or edema noted. Ears/Nose, no mass, lesion, discharge noted. Neck: Supple. No JVD, lymph nodes, bruit, thyromegaly noted. Lungs: Bilateral good equal air entry. Clear to auscultation. No rhonchi. No rales. Heart: Normal heart sounds, no murmur or gallop. Abdomen: Soft, bowel sounds normal. No guarding, rigidity, tenderness, mass, hepatosplenomegaly, dis tention, or bruit noted. Extremities: Right lower extremity shows edema of entire right lower extremity, but grade 2 edema in volving thigh and calf area and foot area. Skin: No rash, ulcer, cellulitis. Lymphatics: No lymph node enlargement in neck, supraclavicular, infraclavicular region. Neuro: No focal neurological deficit. Chest: Unremarkable. External Genitalia: Deferred. Rectal: Deferred. Laboratory Data: Yesterday, white count 41.5, hemoglobin 7, platelets 48. Today, white count 32.7, hemoglobin 7.2, platelets 44. The patient did receive 1 unit of blood transfusion between yesterday' s blood work and this morning's blood work. Her initial sodium 136, potassium 5.1, chloride 104, bic arb 27, BUN 66, creatinine 1.66, glucose 108. Liver function tests unremarkable. This morning sodiu m 139, potassium 4.4, chloride 106, bicarb 27, BUN 64, creatinine 1.40, glucose 150, magnesium 2.3. Chest x-ray done this evening shows extensive interstitial opacity throughout the lungs. Venous Dopp ler of lower extremity, positive right femoral vein DVT and initial chest x-ray upon presentation to ER was unremarkable. Impression: 1.Deep venous thrombosis, right leg. 2.Thrombocytopenia. 3.Anemia. 4.Chronic lymphocytic leukemia. 5.Generalized weakness. 6.Diabetic neuropathy. 7.Coronary artery disease. 8.Chronic kidney disease, stage 3. 9.Aortic wall stenosis. 10.Atrial fibrillation. 11.Diabetes mellitus. 12.Depression. 13.Hypertension. 14.Hyperlipidemia. 15.Diverticulosis. 16.Gastroesophageal reflux disease. Plan: Admit the patient to hospital for further evaluation and management of this problem. The shelbie ent is appropriate for inpatient and is expected to spend 2 midnights in hospital. We will go ahead and repeat blood work tomorrow. Home medications will be continued per order. I did talk to the [facility] Oncologist/Dietary Clerk, Dr. Benedict a few times today requesting transfer to [facility] in [place], and the patient unfortunately ended up staying in the emergency room at our hospit al over 24 hours because [facility] did not have any bed available, so ultimately ellen blandon was made to admit to our hospital while waiting for the bed availability under my service. As p er my discussion with Dr. Benedict, he wants the patient to receive 0.5 mg/kg Lovenox injection subcutane ous every 12 hours, so this particular dose of Lovenox, which would come out to be 40 mg subcutaneous injection every 12 hours was ordered to be given. Her last dose was given around 1 p.m. today, so s he will start getting another dose tonight during middle of the night. Appropriate order was given t o the nursing staff. We will monitor her blood work carefully. During the evening hours, she starte d to have some shortness of breath. Stat chest x-ray was done. The patient had a low-grade fever of 100 degrees Fahrenheit. I am concerned about pneumonia and congestive heart failure, so Lasix will be started. Antibiotics Zosyn will be started. Oxygen nebulizer treatment was ordered. I will see her tomorrow for followup. I did talk to the patient's family about temporary IVC filter placement a nd unfortunately, we were not able to do that at our hospital, so that consideration will need to be given once she goes to [place]. Dr. Benedict was informed me to continue Lovenox per order until her tona telet count gets down to 25,000 or less than at that point to discontinue her Lovenox. Dr. Benedict has discussed details with coagulation specialist in [place] area and has provided me with this recommend atbrodie. DELANO/MODL Voice ID: [id number]
--- NOTE | 2018-12-10 06:58 | RAD REPORT ---
EXAM DESCRIPTION: RAD - Chest Single View - 12/10/2018 6:48 am CLINICAL HISTORY: Pneumonia, CHF COMPARISON: December 08 TECHNIQUE: AP portable chest image was obtained 0642 hours . FINDINGS: Lung volumes are low. CHF/ volume overload pattern on the prior day study has substantiall y improved. Mild failure/ volume overload remains. No progressive process. Heart size is diminished f ractionally from prior imaging. No enlarging pleural effusion. IMPRESSION: Substantial improvement in the CHF/ volume overload pattern since December 08.
[2018-12-10] MEDS: AMIODARONE HCL 200 MG TAB PO SCH (09:41)
[2018-12-10] MEDS: GABAPENTIN 300 MG CAP PO SCH ×2 (09:41→20:06)
[2018-12-10] MEDS: METOPROLOL XL 25 MG TAB PO SCH ×2 (09:42→20:06)
[2018-12-10] MEDS: CYANOCOBALAMIN 1,000 MCG TAB PO SCH (09:42)
[2018-12-10] MEDS: ENOXAPARIN 40 MG/0.4 ML SQ SCH ×2 (09:42→20:07)
[2018-12-10] MEDS: FERROUS SULFATE 325 MG TAB PO SCH (09:42)
[2018-12-10] MEDS: AMITRIPTYLINE 10 MG TAB PO SCH ×2 (09:42→20:09)
[2018-12-10 10:33] LABS: Urine Appearance CLEAR; Urine Bilirubin NEGATIVE (NEG); Urine Blood 2+ (NEG); Urine Color YELLOW; Urine Glucose NEGATIVE (NEG); Urine Protein 1+ (NEG); Urine Specific Gravity 1.015 (1.005-1.030); Urine Urobilinogen 0.2 mg/dL (0.2-1.0); Urine pH 5.5 (5.0-7.0)
[2018-12-10 10:40] LABS: Smudge Cells MANY
[2018-12-10 10:45] LABS: Anisocytosis 3+; Blood Morphology Comment NOTED (NOT SEEN); Platelets, Giant MANY; Polychromasia 1+
[2018-12-10 10:46] LABS: Basophilic Stippling 1+
[2018-12-10 11:05] LABS: Platelet Estimate DECR
[2018-12-10 11:16] LABS: Urine Bacteria NONE SEEN /HPF (<20); Urine Culture Reflex Order NOT NEEDED; Urine RBC NONE SEEN /HPF (NONE SEEN); Urine Yeast PRESENT (NONE SEEN)
[2018-12-10] MEDS ORDERED: GLUCAGON 1 MG/VIAL IM PRN (16:30)
[2018-12-10] MEDS: INSULIN -REGULAR HUMAN 50 UNIT/0.5 ML ML SQ SCH ×2 (16:30→20:30)
[2018-12-10] MEDS ORDERED: D50W 25 GM/50 ML SYRINGE IV PRN (16:30)
[2018-12-10] MEDS: CODEINE 30MG/APAP 300MG TAB PO PRN (17:15)
[2018-12-10] MEDS ORDERED: FUROSEMIDE 40 MG/4 ML VIAL IV ONE (19:04)
[2018-12-10] MEDS: ALPRAZOLAM 0.25 MG TABLET PO PRN (20:06)
[2018-12-10] MEDS: ATORVASTATIN 10 MG TAB PO SCH (20:07)
--- NOTE | 2018-12-10 21:11 | PN ---
Date of Progress Note: 12/10/2018 Subjective: The patient was seen this morning for followup. She is feeling much better, looking muc h better. Appetite has improved today. Family was at bedside with her. Objective: Vital signs: Reviewed. HEENT: Examination unremarkable. Lungs: Clear to auscultation except very minimum basal rales present. Not in respiratory distress. Heart: Sounds normal. Abdomen: Soft. Bowel sounds normal. No guarding, rigidity, tenderness, or distention. Extremities: No edema on left leg. Right leg edema is better today. Laboratory Data: White count 31.4, hemoglobin 8.8, platelets 42. Sodium 141, potassium 4.4, chlorid e 107, bicarb 27, BUN 53, creatinine 1.18, glucose 159. Impression: 1.Right leg deep venous thrombosis. 2.Chronic lymphocytic leukemia. 3.Anemia. 4.Thrombocytopenia. 5.Pneumonia. 6.Congestive heart failure. Plan: We will go ahead and continue current Lovenox 40 mg subcutaneous injection every 12 hours. Melina bernsetin is tolerating that well and follow up on blood work on a daily basis while in the hospital. If tona telet count drops less than 25,000, then to discontinue Lovenox. Continue current antibiotics for pn eumonia. Overall her condition has improved significantly and plan is to continue this current treatm ent. Discharged to go to group home sometime next week. Considering improvement in patient's cond ition and she is tolerating this treatment very well with Lovenox, at this point we do not have any p lans to put any IVC filter and no need for her to go to [place] as we were originally planning to [facility] and I did call her electric scoop operator/oncologist Dr. Benedict and details were discussed and he also agrees with the current treatment plan and also to cancel transfer request. Details were discus sed with family members as well. DELANO/MODL Voice ID: [id number] Report ID: [id number]
[2018-12-11] MEDS: PIPER/TAZO/NS 2.25gm 2.25 GM/50 ML BAG IVPB SCH ×3 (01:16→17:07)
[2018-12-11] MEDS: ALBUTEROL 2.5 MG/3 ML NEB SOL NEB SCH ×6 (03:50→23:53)
[2018-12-11] MEDS: PANTOPRAZOLE 40MG TABLET PO SCH (05:29)
[2018-12-11] MEDS: INSULIN -REGULAR HUMAN 50 UNIT/0.5 ML ML SQ SCH ×4 (07:30→21:07)
[2018-12-11 08:52] LABS: Absolute Lymphocytes (CBC) 29.4 K/uL (0.7-4.9); Absolute Monocytes 0.3 K/uL (0.1-1.3); Absolute Neutrophil 1.8 K/uL (1.8-8.0); Basophils % 0.2 % (0-1.3); Eosinophils % 0.1 % (0-4.4); Hematocrit 26.5 % (36.0-45.0); Lymphocytes % 93.1 % (15.3-44.8); MPV 9.5 fL (7.6-11.3); Monocytes % 0.8 % (3.3-12.3); RBC Red Blood Cell Count 2.87 M/uL (3.86-4.86)
[2018-12-11 09:07] LABS: Potassium 4.2 mmol/L (3.5-5.1)
[2018-12-11] MEDS: FUROSEMIDE 40 MG TABLET PO SCH (09:08)
[2018-12-11] MEDS: METOPROLOL XL 25 MG TAB PO SCH ×2 (09:08→21:08)
[2018-12-11] MEDS: CYANOCOBALAMIN 1,000 MCG TAB PO SCH (09:08)
[2018-12-11] MEDS: AMITRIPTYLINE 10 MG TAB PO SCH ×2 (09:08→21:08)
[2018-12-11] MEDS: AMIODARONE HCL 200 MG TAB PO SCH (09:08)
[2018-12-11] MEDS: FERROUS SULFATE 325 MG TAB PO SCH (09:08)
[2018-12-11] MEDS: GABAPENTIN 300 MG CAP PO SCH ×2 (09:08→21:08)
[2018-12-11] MEDS: ENOXAPARIN 40 MG/0.4 ML SQ SCH ×2 (09:09→21:08)
--- NOTE | 2018-12-11 09:24 | RAD REPORT ---
EXAM DESCRIPTION: RAD - Chest Single View - 12/11/2018 9:03 am CLINICAL HISTORY: Pneumonia, CHF COMPARISON: December 10 TECHNIQUE: AP portable chest image was obtained 0853 hours . FINDINGS: Lungs are underinflated. There is chronic interstitial lung disease. Right upper lobe pare nchymal opacification may have improved slightly. Overall no substantial change to the lung parenchym a. Cardiomegaly is present. There is vascular engorgement still present. Defibrillator remains in tona ce. No pneumothorax or enlarging pleural effusion. IMPRESSION: CHF/volume overload pattern not substantially different from prior day imaging.
[2018-12-11] MEDS: ALPRAZOLAM 0.25 MG TABLET PO PRN ×2 (13:15→22:57)
--- NOTE | 2018-12-11 18:55 | P.PN ---
Date of Service: 12/11/18 Subjective: Patient seen and examined at bedside. No family at bedside. Chart reviewed and case discussed with nursing staff. Reports no complaints this morning. States she is feeling much better. Objective: Vital signs: Reviewed. HEENT: Examination unremarkable. Lungs: Clear to auscultation, no respiratory distress. Heart: Sounds normal. Abdomen: Soft. Bowel sounds normal. No guarding, rigidity, tenderness, or distention. Extremities: No edema on left leg. Right leg edema is better today. Laboratory Data: White count 31.5. hemoglobin 8.5, platelets 46. Sodium 140, potassium 4.2, chloride 106, bicarb 28, BUN 48, creatinine 1.05, glucose 151. Assessment and plan: 1. Right leg deep venous thrombosis. 2. Chronic lymphocytic leukemia. 3. Anemia. 4. Thrombocytopenia. 5. Pneumonia. 6. Congestive heart failure. Plan: Continue current Lovenox subcutaneous every 12 hr as her platelets remained stable. Continue to follow up on blood work tomorrow. If platelet count drops less than 25,000, then to discontinue Lovenox. Continue current antibiotics for pneumonia. Possible Discharge to go to long term sometime next week. Continue to monitor
[2018-12-11] MEDS: ATORVASTATIN 10 MG TAB PO SCH (21:08)
[2018-12-12] MEDS: PIPER/TAZO/NS 2.25gm 2.25 GM/50 ML BAG IVPB SCH ×3 (02:05→16:42)
[2018-12-12] MEDS: ALBUTEROL 2.5 MG/3 ML NEB SOL NEB SCH ×6 (03:38→23:31)
[2018-12-12 05:33] LABS: Absolute Lymphocytes (CBC) 32.2 K/uL (0.7-4.9); Absolute Monocytes 0.3 K/uL (0.1-1.3); Absolute Neutrophil 1.7 K/uL (1.8-8.0); Basophils % 0.4 % (0-1.3); Eosinophils % 0.1 % (0-4.4); Hematocrit 26.8 % (36.0-45.0); Lymphocytes % 93.6 % (15.3-44.8); MPV 9.9 fL (7.6-11.3); Monocytes % 0.9 % (3.3-12.3)
[2018-12-12] MEDS: PANTOPRAZOLE 40MG TABLET PO SCH (05:33)
[2018-12-12 05:47] LABS: Magnesium 1.9 mg/dL (1.8-2.4); Potassium 4.2 mmol/L (3.5-5.1)
[2018-12-12] MEDS: INSULIN -REGULAR HUMAN 50 UNIT/0.5 ML ML SQ SCH ×4 (07:30→21:18)
[2018-12-12] MEDS: FERROUS SULFATE 325 MG TAB PO SCH (08:41)
[2018-12-12] MEDS: FUROSEMIDE 40 MG TABLET PO SCH (08:41)
[2018-12-12] MEDS: GABAPENTIN 300 MG CAP PO SCH ×2 (08:42→20:23)
[2018-12-12] MEDS: CYANOCOBALAMIN 1,000 MCG TAB PO SCH (08:42)
[2018-12-12] MEDS: AMITRIPTYLINE 10 MG TAB PO SCH ×2 (08:43→20:24)
[2018-12-12] MEDS: AMIODARONE HCL 200 MG TAB PO SCH (08:43)
[2018-12-12] MEDS: METOPROLOL XL 25 MG TAB PO SCH ×2 (08:43→20:24)
[2018-12-12] MEDS: ENOXAPARIN 40 MG/0.4 ML SQ SCH ×2 (08:44→20:24)
--- NOTE | 2018-12-12 11:43 | RAD REPORT ---
EXAM DESCRIPTION: RAD - Chest Single View - 12/12/2018 5:47 am CLINICAL HISTORY: pneumonia, CHF Chest pain. COMPARISON: Chest Single View dated 12/11/2018; Chest Single View dated 12/10/2018; Chest Single View dated 12/08/2018; Chest Single View dated 12/07/2018 FINDINGS: Portable technique limits examination quality. Moderate worsening in bilateral pulmonary opacities seen since 12/11/2018 study. This likely represen ts worsening CHF/volume overload. The heart is mildly enlarged in size with a single lead pacer/ defi brillator device. No displaced fractures. IMPRESSION: Moderate worsening in lung aeration since 12/11/2018.
[2018-12-12] MEDS ORDERED: FUROSEMIDE 40 MG/4 ML VIAL IV ONE (12:00)
--- NOTE | 2018-12-12 15:13 | PN ---
Date of Progress Note: 12/12/2018 Subjective: The patient was seen this morning for followup. She was lying in bed, not in any distre ss. Her and son were present at bedside. Objective: General: She appears little more tired today than day before yesterday when I saw her. Appetite is fair. Vital Signs: Reviewed. HEENT Examination: Unremarkable. Lungs: Presence of rales noted in both lower half lung quijano. Not using any accessory muscles of r espiration. Heart: Sounds normal. Abdomen: Soft. Bowel sounds normoactive. No guarding, rigidity, tenderness, or distention. Extremities: Right leg edema present, but better than before. No edema of left leg. Laboratory Data: White count 34.4, hemoglobin 8.6, platelets 47. Sodium 139, potassium 4.2, chlorid e 105, bicarb 28, BUN 52, creatinine 1.14, glucose 151, magnesium 1.9. Chest x-ray reviewed. Impression: 1.Pneumonia. 2.Congestive heart failure. 3.Right leg deep venous thrombosis. 4.Thrombocytopenia. 5.Anemia. 6.Chronic lymphocytic leukemia. 7.Hypertension. 8.Diabetes mellitus. Plan: We will continue current medications including current antibiotics and the patient is on oral Lasix. We will give 1 dose of IV Lasix today 40 mg. Continue Lovenox 40 mg subcutaneous injection e very 12 hours for DVT treatment, so far she has tolerated this very well. Her platelet count and hem oglobin are stable. Plan is to repeat venous Doppler of leg sometime during this hospitalization eloisa or to discharge, so we will plan to repeat that in next day or 2 days. Discharge probably will happe n sometime beginning of next week for patient to go back to [facility]. I did talk to patient's fa donita regarding this and also informed that as per my discussion with Dr. Benedict 2 days ago. He would l macie to communicate with the patient's [facility] physician for ongoing management upon discharge fr om the hospital as [facility] physicians will be looking after her anticoagulation therapy and all other medical management. Son, I will provide [facility] physician with Dr. Benedict's contact number, so that way they both can communicate on ongoing basis for patient's chronic management issues. I w ill see her tomorrow for followup. DELANO/MODL Voice ID: [id number] Report ID: [id number]
[2018-12-12] MEDS: ALPRAZOLAM 0.25 MG TABLET PO PRN (20:22)
[2018-12-12] MEDS: ATORVASTATIN 10 MG TAB PO SCH (20:23)
[2018-12-13] MEDS: PIPER/TAZO/NS 2.25gm 2.25 GM/50 ML BAG IVPB SCH ×3 (01:23→17:16)
[2018-12-13] MEDS: ALBUTEROL 2.5 MG/3 ML NEB SOL NEB SCH ×6 (03:05→23:40)
[2018-12-13 05:26] LABS: Absolute Monocytes 0.2 K/uL (0.1-1.3); Absolute Neutrophil 1.3 K/uL (1.8-8.0); Basophils % 0.2 % (0-1.3); Eosinophils % 0.1 % (0-4.4); Hematocrit 24.7 % (36.0-45.0); MPV 9.8 fL (7.6-11.3); RBC Red Blood Cell Count 2.64 M/uL (3.86-4.86)
[2018-12-13 05:40] LABS: Magnesium 1.7 mg/dL (1.8-2.4); Potassium 3.9 mmol/L (3.5-5.1)
[2018-12-13] MEDS: PANTOPRAZOLE 40MG TABLET PO SCH (06:30)
[2018-12-13] MEDS: INSULIN -REGULAR HUMAN 50 UNIT/0.5 ML ML SQ SCH ×4 (07:30→20:29)
[2018-12-13] MEDS: FUROSEMIDE 40 MG TABLET PO SCH (09:00)
[2018-12-13] MEDS: GABAPENTIN 300 MG CAP PO SCH ×2 (09:15→20:19)
[2018-12-13] MEDS: METOPROLOL XL 25 MG TAB PO SCH ×2 (09:16→20:19)
[2018-12-13] MEDS: CYANOCOBALAMIN 1,000 MCG TAB PO SCH (09:16)
[2018-12-13] MEDS: AMITRIPTYLINE 10 MG TAB PO SCH ×2 (09:17→20:20)
[2018-12-13] MEDS: ENOXAPARIN 40 MG/0.4 ML SQ SCH ×2 (09:17→20:19)
[2018-12-13] MEDS: FERROUS SULFATE 325 MG TAB PO SCH (09:17)
[2018-12-13] MEDS: AMIODARONE HCL 200 MG TAB PO SCH (09:17)
[2018-12-13] MEDS ORDERED: FUROSEMIDE 40 MG/4 ML VIAL IV SCH (10:00)
--- NOTE | 2018-12-13 12:56 | PN ---
Date of Progress Note: 12/13/2018 Subjective: The patient was seen this morning for followup. No new complaints or problems reported by her family. The patient was sleeping and had just fallen asleep about 30 minutes before I went in to her room. Daughter reported no complaints yesterday after I saw her and no complaints last night. She has not used any BiPAP since I saw her yesterday. Her appetite is fair. She eats most during breakfast as reported by family. Objective: Vital Signs: Reviewed. HEENT: Unremarkable. Lungs: Clear to auscultation. Heart: Heart sounds normal. Abdomen: Soft. Bowel sounds normal. Extremities: Right leg edema is getting better on a day-to-day basis. No edema of left leg. Laboratory Data: White count 23.6, hemoglobin 7.9, platelets 37. Sodium 142, potassium 3.9, chlorid e 106, bicarb 29, BUN 50, creatinine 1.06, glucose 179, magnesium 1.7. Impression: 1.Pneumonia. 2.Congestive heart failure. 3.Right leg deep venous thrombosis. 4.Chronic lymphocytic leukemia. 5.Anemia. 6.Thrombocytopenia. 7.Hypomagnesemia. Plan: Replace electrolyte per protocol. We will continue current Lovenox and we will monitor blood work tomorrow. Depending on tomorrow's blood work, we will decide if she needs any blood transfusion or not. Continue current antibiotics. Lasix 40 mg IV daily will be given. She got her dose yester day and we will continue that today as well. Discontinue oral Lasix, and I will see her tomorrow for followup. We will go ahead and do venous Doppler of her right lower extremity today or tomorrow, an d we will have Physical Therapy start working with the patient now. Details were discussed with family. DELANO/MODL Voice ID: [id number] Report ID: [id number]
[2018-12-13] MEDS: ALPRAZOLAM 0.25 MG TABLET PO PRN (17:15)
[2018-12-13] MEDS: ATORVASTATIN 10 MG TAB PO SCH (20:19)
[2018-12-13] MEDS: CODEINE 30MG/APAP 300MG TAB PO PRN (20:36)
[2018-12-14] MEDS: PIPER/TAZO/NS 2.25gm 2.25 GM/50 ML BAG IVPB SCH ×3 (00:27→17:54)
[2018-12-14] MEDS: ALBUTEROL 2.5 MG/3 ML NEB SOL NEB SCH ×5 (03:41→20:00)
[2018-12-14 05:30] LABS: Absolute Lymphocytes (CBC) 20.3 K/uL (0.7-4.9); Absolute Monocytes 0.2 K/uL (0.1-1.3); Absolute Neutrophil 1.3 K/uL (1.8-8.0); Basophils % 0.3 % (0-1.3); Eosinophils % 0.1 % (0-4.4); Hematocrit 23.4 % (36.0-45.0); MPV 9.6 fL (7.6-11.3); Monocytes % 0.8 % (3.3-12.3); RBC Red Blood Cell Count 2.51 M/uL (3.86-4.86)
[2018-12-14] MEDS: PANTOPRAZOLE 40MG TABLET PO SCH (05:43)
[2018-12-14 05:49] LABS: Bilirubin Total 0.6 mg/dL (0.2-1.0); Magnesium 1.7 mg/dL (1.8-2.4); Potassium 3.7 mmol/L (3.5-5.1); Protein, Total 5.5 g/dL (6.4-8.2)
[2018-12-14] MEDS: INSULIN -REGULAR HUMAN 50 UNIT/0.5 ML ML SQ SCH ×4 (07:30→20:39)
[2018-12-14] MEDS ORDERED: POTASSIUM 25 MEQ EFFERV TAB PO ONE (09:00)
[2018-12-14] MEDS ORDERED: MAGNESIUM SULFATE 1 gm IVPB 1 GM/100 ML BAG IV ONE (09:00)
--- NOTE | 2018-12-14 09:00 | RAD REPORT ---
EXAM DESCRIPTION: USExtremity Venous Uni Ltd12/14/2018 8:45 am CLINICAL HISTORY: left leg pain and swelling. COMPARISON: December 07, 2018 FINDINGS: Mild improvement in the thrombus within the right common femoral, right superficial femora l and proximal right popliteal vein has occurred. IMPRESSION: No mild improvement in the right lower extremity deep veinous thrombosis.
[2018-12-14] MEDS: CYANOCOBALAMIN 1,000 MCG TAB PO SCH (09:13)
[2018-12-14] MEDS: GABAPENTIN 300 MG CAP PO SCH ×2 (09:15→20:40)
[2018-12-14] MEDS: ENOXAPARIN 40 MG/0.4 ML SQ SCH ×2 (09:15→20:42)
[2018-12-14] MEDS: AMITRIPTYLINE 10 MG TAB PO SCH ×2 (09:16→20:41)
[2018-12-14] MEDS: FERROUS SULFATE 325 MG TAB PO SCH (09:16)
[2018-12-14] MEDS: METOPROLOL XL 25 MG TAB PO SCH ×2 (09:16→20:41)
[2018-12-14] MEDS: AMIODARONE HCL 200 MG TAB PO SCH (09:16)
[2018-12-14] MEDS: FUROSEMIDE 40 MG/4 ML VIAL IV SCH ×2 (09:16→17:54)
--- NOTE | 2018-12-14 09:51 | RAD REPORT ---
EXAM DESCRIPTION: Marycarmen Single View12/14/2018 9:14 am CLINICAL HISTORY: Shortness of breath COMPARISON: December 12, 2018. FINDINGS: Mild improvement in mild to moderate bilateral pulmonary opacities. The heart is mildly t o moderately enlarged. Pacemaker leads are in place. IMPRESSION: Mild to moderate CHF mildly improved from prior exam
[2018-12-14] MEDS: ALPRAZOLAM 0.25 MG TABLET PO PRN (13:15)
[2018-12-14] MEDS: CODEINE 30MG/APAP 300MG TAB PO PRN (20:40)
[2018-12-14] MEDS: ATORVASTATIN 10 MG TAB PO SCH (20:42)
[2018-12-15] MEDS: PIPER/TAZO/NS 2.25gm 2.25 GM/50 ML BAG IVPB SCH ×3 (00:23→17:39)
--- NOTE | 2018-12-15 01:40 | PN ---
Date of Progress Note: 12/14/2018 Subjective: The patient was seen this morning for followup. She was lying in bed, not in any distre ss, appears weaker than usual for last 2 days. Appetite is fair. She had some wheezing and shortnes s of breath type of problem last night. Objective: Vital Signs: Reviewed. HEENT Examination: Unremarkable. Lungs: Bilateral rales, unchanged from yesterday. Heart: Sounds normal. Abdomen: Soft. Bowel sounds normal. No guarding, rigidity, tenderness, or distention. Extremity: Right leg edema is significantly better and has very minimum edema compared to before. L eft leg, no edema. Laboratory Data: White count 21.8, hemoglobin 7.5, platelets 38. Sodium 142, potassium 3.7, chlorid e 106, bicarb 28, BUN 42, creatinine 0.98, glucose 173, magnesium 1.7. Impression: 1.Pneumonia. 2.Congestive heart failure. 3.Anemia. 4.Thrombocytopenia. 5.Chronic lymphocytic leukemia. 6.Hypomagnesemia. 7.Generalized weakness. 8.Right leg deep venous thrombosis. Plan: We will continue current Lovenox, antibiotic. Lasix, currently she is on 40 mg IV daily; we w ill increase dose to twice a day. We will get a venous Doppler done on both lower extremities. Get a chest x-ray done and we will have Physical Therapy start working with the patient. Last couple of days, her condition has deteriorated with increased fatigue type of problem and generalized weakness. I am also concerned about congestive heart failure and pneumonia problem not improving, and we will continue current diuretic and antibiotics per order. I will see her tomorrow for followup. I did t alk to patient's son today, and in fact he brought up discussion about what the overall prognosis is and where to go from here. We talked about advance directive as well as possibility of hospice care at appropriate time. He will communicate with the rest of the family regarding these two important d ecisions and let me know tomorrow. If her condition deteriorates instead of getting better, then def initely hospice care should be considered and in that case she can go home with hospice. If her cond ition improves well enough, then she will need to return back to care home for skilled therapy and all these details were discussed with family today. DELANO/MODL Voice ID: [id number] Report ID: [id number]
[2018-12-15] MEDS: ALBUTEROL 2.5 MG/3 ML NEB SOL NEB SCH ×6 (04:00→20:00)
[2018-12-15] MEDS: PANTOPRAZOLE 40MG TABLET PO SCH (06:06)
[2018-12-15 06:26] LABS: Absolute Lymphocytes (CBC) 19.6 K/uL (0.7-4.9); Absolute Monocytes 0.4 K/uL (0.1-1.3); Absolute Neutrophil 1.3 K/uL (1.8-8.0); Basophils % 0.1 % (0-1.3); Eosinophils % 0.3 % (0-4.4); Hematocrit 25.2 % (36.0-45.0); MPV 9.9 fL (7.6-11.3); Monocytes % 1.6 % (3.3-12.3); RBC Red Blood Cell Count 2.67 M/uL (3.86-4.86)
[2018-12-15 06:29] LABS: Magnesium 1.7 mg/dL (1.8-2.4); Potassium 3.8 mmol/L (3.5-5.1)
[2018-12-15] MEDS ORDERED: MAGNESIUM SULFATE 1 gm IVPB 1 GM/100 ML BAG IV ONE (07:00)
[2018-12-15] MEDS ORDERED: POTASSIUM CL SA 10 MEQ TAB PO ONE (07:00)
[2018-12-15] MEDS: INSULIN -REGULAR HUMAN 50 UNIT/0.5 ML ML SQ SCH ×4 (07:30→23:25)
[2018-12-15] MEDS ORDERED: NA CHLORIDE 0.9% 250 ML ONE (07:37)
[2018-12-15 08:48] LABS: Anisocytosis 2+; Blood Morphology Comment NOTED (NOT SEEN); Platelet Estimate DECR; Smudge Cells MANY
[2018-12-15] MEDS: CYANOCOBALAMIN 1,000 MCG TAB PO SCH (09:00)
[2018-12-15] MEDS: ALPRAZOLAM 0.25 MG TABLET PO PRN (09:43)
[2018-12-15] MEDS: GABAPENTIN 300 MG CAP PO SCH ×2 (09:43→23:24)
[2018-12-15] MEDS: AMIODARONE HCL 200 MG TAB PO SCH (09:44)
[2018-12-15] MEDS: METOPROLOL XL 25 MG TAB PO SCH ×2 (09:44→23:25)
[2018-12-15] MEDS: AMITRIPTYLINE 10 MG TAB PO SCH ×2 (09:44→23:25)
[2018-12-15] MEDS: FERROUS SULFATE 325 MG TAB PO SCH (09:44)
[2018-12-15] MEDS: ENOXAPARIN 40 MG/0.4 ML SQ SCH ×2 (09:45→23:26)
[2018-12-15] MEDS: FUROSEMIDE 40 MG/4 ML VIAL IV SCH ×2 (09:45→17:32)
[2018-12-15] MEDS: ATORVASTATIN 10 MG TAB PO SCH (23:24)
--- NOTE | 2018-12-15 23:28 | PN ---
Date of Progress Note: 12/15/2018 Subjective: The patient was seen this morning for followup. No new complaints, problems reported by her. Lying in bed, not in any distress. Her daughter was present with her at bedside. She has not used BiPAP in last 48 hours. Her appetite is fair. Most of the time she eats well during breakfast time, but lunch and dinner she does not eat as well. Had a bowel movement yesterday. She did start physical therapy yesterday. She appears weaker than normal for last 3 days. Objective: Vital Signs: Reviewed. HEENT: Examination unremarkable. Lungs: Bilateral rales noted unchanged from yesterday. Not in any respiratory distress. Heart: Sounds normal. Abdomen: Soft. Bowel sounds normal. No guarding, rigidity, tenderness, distention. Extremities: No leg edema. Laboratory Data: White count 21.3, hemoglobin 8, platelets 31. Sodium 142, potassium 3.8, chloride 104, bicarb 31, BUN 45, creatinine 1.14, glucose 166, magnesium 1.7. Impression: 1.Right leg deep venous thrombosis. 2.Chronic lymphocytic leukemia. 3.Thrombocytopenia. 4.Pneumonia. 5.Congestive heart failure. 6.Generalized weakness. 7.Hypomagnesemia. Plan: We will replace electrolytes per protocol. Continue current antibiotic and IV Lasix. Yesterd ay's chest x-ray had started to show some improvement in congestive heart failure pattern. We will c ontinue Lovenox. The patient has lot of anxiety problem lately. She responds well to alprazolam and family asked me if we can increase the dose of alprazolam and I suggested not to increase the dose b ecause of her weakness that I have seen in last 2 to 3 days, overall not sure whether that is just he r overall decline or alprazolam could be contributing to that and I do not feel comfortable going up on the dose, but at the same time without alprazolam she has significant problem with anxiety and it seems to help her every time she takes it. We will continue current dose and I will see her tomorrow for followup. DELANO/MODL Voice ID: [id number] Report ID: [id number]
[2018-12-16] MEDS: PIPER/TAZO/NS 2.25gm 2.25 GM/50 ML BAG IVPB SCH ×3 (00:23→17:00)
[2018-12-16] MEDS: ALBUTEROL 2.5 MG/3 ML NEB SOL NEB SCH ×6 (04:00→19:28)
[2018-12-16 06:25] LABS: Absolute Lymphocytes (CBC) 18.8 K/uL (0.7-4.9); Absolute Monocytes 0.3 K/uL (0.1-1.3); Absolute Neutrophil 1.2 K/uL (1.8-8.0); Basophils % 0.1 % (0-1.3); Eosinophils % 0.3 % (0-4.4); Hematocrit 25.5 % (36.0-45.0); Lymphocytes % 92.4 % (15.3-44.8); Monocytes % 1.4 % (3.3-12.3); RBC Red Blood Cell Count 2.74 M/uL (3.86-4.86)
[2018-12-16] MEDS: PANTOPRAZOLE 40MG TABLET PO SCH (06:30)
[2018-12-16 06:37] LABS: Magnesium 1.6 mg/dL (1.8-2.4); Potassium 3.7 mmol/L (3.5-5.1)
[2018-12-16] MEDS ORDERED: MAGNESIUM SULFATE 1 gm IVPB 1 GM/100 ML BAG IV ONE (06:38)
[2018-12-16] MEDS: INSULIN -REGULAR HUMAN 50 UNIT/0.5 ML ML SQ SCH ×4 (07:30→21:19)
[2018-12-16] MEDS ORDERED: METOPROLOL TARTRATE 5 MG/5 ML INJ IV STA (08:13)
[2018-12-16] MEDS: ENOXAPARIN 40 MG/0.4 ML SQ SCH ×2 (08:46→20:59)
[2018-12-16] MEDS: FERROUS SULFATE 325 MG TAB PO SCH (08:46)
[2018-12-16] MEDS: CODEINE 30MG/APAP 300MG TAB PO PRN ×2 (08:47→18:08)
[2018-12-16] MEDS: METOPROLOL XL 25 MG TAB PO SCH ×2 (08:53→20:57)
[2018-12-16] MEDS ORDERED: POTASSIUM CL SA 10 MEQ TAB PO ONE (09:00)
[2018-12-16] MEDS: GABAPENTIN 300 MG CAP PO SCH ×2 (09:00→20:57)
[2018-12-16] MEDS: CYANOCOBALAMIN 1,000 MCG TAB PO SCH (09:00)
[2018-12-16] MEDS: FUROSEMIDE 40 MG/4 ML VIAL IV SCH ×2 (09:00→16:59)
[2018-12-16] MEDS: ALPRAZOLAM 0.25 MG TABLET PO PRN ×2 (10:04→20:59)
--- NOTE | 2018-12-16 10:56 | RAD REPORT ---
EXAM DESCRIPTION: RAD - Chest Single View - 12/16/2018 10:46 am CLINICAL HISTORY: CHF, pneumonia Chest pain. COMPARISON: Chest Single View dated 12/14/2018; Chest Single View dated 12/12/2018; Chest Single View dated 12/11/2018; Chest Single View dated 12/10/2018 FINDINGS: Portable technique limits examination quality. Mild pulmonary edema is seen with trace pleural fluid. The heart is mildly enlarged in size with a si ngle lead pacer/defibrillator device present. No displaced fractures. IMPRESSION: Mild CHF versus volume overload pattern.
[2018-12-16] MEDS: AMIODARONE HCL 200 MG TAB PO SCH (11:00)
--- NOTE | 2018-12-16 14:20 | CON ---
Reason For Consultation: AFib. History Of Present Illness: Ms. Groves has had AFib one other time. She was very ill from it. She w as bleeding at that time. An emergency cardioversion was done. She received amiodarone and apparent ly she has been in sinus rhythm until just earlier today. She did not really notice it. It is not c ausing nearly the hemodynamic stress as it did a month ago. A cardioversion was on November 11, 2018. She was admitted from a assisted. She started to have swelling of the legs and was brought in. Now, she is on antibiotics. Apparently, she is believed to have pneumonia versus mild CHF. She valadez s a history of congestive heart failure, but ejection fraction was normal. She has a history of mult iple stents. She has a history of a transcutaneous aortic valve replacement just within the last 6 m ont and a history of AFib. Because of severe bleeding, she has not been on an anticoagulant. Outpatient Medications: Had been insulin, pravastatin, omeprazole, gabapentin, amitriptyline, amioda tasha 200 once a day, metoprolol 25 b.i.d., pramoxine and mineral oil ointment, lisinopril 5 b.i.d., M iraLax, Codeine with Tylenol, Lasix, iron sulfate, vitamin B12, and sliding scale insulin. Physical Examination: General: She appears to be older than her stated age of 83. She looks chronically ill, somnolent, b ut she was easily arousable, recognized my name when I had met her a month ago. Lungs: Do not reveal crackles. Heart: Irregularly irregular. It is going about 120 beats per minute. Blood pressure is 110/60. Abdomen: Soft. Extremities: Mild edema. Impression: We should probably try and slow her heart rate, but I would entertain the idea with Dr. Suarez that perhaps she could be transferred to an floor surfacer who could do an ablation. She a lready has a defibrillator in place and it can be programed so that she does not have any bradycardia , perhaps an AV node ablation, to let her be in chronic atrial fibrillation or an atrial fibrillation ablation would be possible. These are things that we can really do here so given the fact she is al ready on amiodarone and has atrial fibrillation and this puts her at tremendous risk of stroke, perha ps it is better to transfer her to the care of her laboratory immunologist in [place] where floor surfacer could be involved. JHONATAN/ZACK Voice ID: [id number] Report ID: [id number]
[2018-12-16 16:53] VITALS: TEMP 97
[2018-12-16 19:41] VITALS: O2SAT 95
[2018-12-16] MEDS: ATORVASTATIN 10 MG TAB PO SCH (20:57)
[2018-12-16 21:00] VITALS: BP 114/57
[2018-12-16] MEDS ORDERED: AMITRIPTYLINE 10 MG TAB PO SCH (21:00)
[2018-12-16] MEDS ORDERED: AMIODARONE HCL 200 MG TAB PO SCH (21:00)
--- NOTE | 2018-12-17 01:18 | PN ---
Date of Progress Note: 12/16/2018 Subjective: The patient was seen this morning for followup. She appears weaker than usual, unchange d for last 3 days. No nausea, vomiting. Daughter was present with her at bedside. Objective: Vital signs: Reviewed. HEENT: Unremarkable. Lungs: Bilateral good equal air entry. Presence of rales. Not in any distress. Overall lung findi ngs are somewhat better than last 2 to 3 days. Heart: Sounds normal. Abdomen: Soft. Bowel sounds normal. No guarding, rigidity, tenderness, or distention. Extremities: No leg edema. Laboratory Data: Chest x-ray shows mild CHF versus volume overload pattern. White count 20.3, hemog lobin 8.2, platelets 47. Sodium 141, potassium 3.7, chloride 103, bicarb 32, BUN 40, creatinine 1.01 , glucose 149, magnesium 1.6. Impression: 1.Atrial fibrillation with rapid ventricular rate. 2.Chronic lymphocytic leukemia. 3.Anemia. 4.Thrombocytopenia. 5.Right leg deep venous thrombosis. 6.Pneumonia. 7.Congestive heart failure. Plan: After I saw her, we noticed that the patient was back in atrial fibrillation with rapid ventri cular rate. She had similar problem during her last hospital admission and she was hemodynamically u nstable with atrial fibrillation problem so cardioversion was provided during last admission and amio darone was started which she still continues to take. Today, when we noted this problem this morning , 1 dose of Lopressor 5 mg slow IV push was ordered and Cardiology consultation was requested. Dr. Tashia gonzalez from Cardiology evaluated her and he recommended for patient to be transferred to electrophysio logist in [place] for consideration of ablation type of procedure. We do not have such specialist at our hospital and we are not able to provide this particular type of care so she needs higher level o f care and with that in mind, I did contact her report specialist in [place], Dr. Parra and details were discussed with him. He accepted the patient but the [facility] we tried to transfer h er under care of her report specialist informed us that they did not have any bed available. After this, I contacted the patient's daughter, details were discussed with her and I recommended to try another hospital and she agreed. So, we did contact [facility] and the transfer p [facility] was initiated and I did communicate with Dr. Neville, report specialist at [facility] in [facility], and details were discussed with him and he accepted the patient and soon as the bed becomes av ailable, we will plan to transfer her via ground ambulance. DELANO/MODL Voice ID: [id number] Report ID: [id number]
--- NOTE | 2018-12-17 07:05 | EKG ---
Test Date: 2018-12-16 Test Time: 07:38:10 Christmas Bell Ringer: RAIN MEASUREMENT RESULTS: Intervals: Rate: 120 NM: QRSD: 150 QT: 378 QTc: 534 [place]: P: NM: QRS: 149 T: -37 INTERPRETIVE STATEMENTS: Atrial fibrillation with rapid ventricular response Right axis deviation Left bundle branch block Abnormal ECG Compared to ECG 11/21/2018 22:28:21 Right-axis deviation now present Sinus rhythm no longer present Electronically Signed On 12-17-18 07:04:52 TRANSPORTATION SPECIALIST by Yaniv Machado
--- NOTE | 2018-12-17 21:40 | EKG ---
Test Date: 2018-12-16 Test Time: 21:12:35 Distributing Clerk: RT MEASUREMENT RESULTS: Intervals: Rate: 69 ID: [id number] QRSD: 146 QT: 458 QTc: 490 [place]: P: 31 ID: [id number] QRS: 2 T: 104 INTERPRETIVE STATEMENTS: Normal sinus rhythm Left bundle branch block Abnormal ECG Compared to ECG 12/16/2018 07:38:10 Atrial fibrillation no longer present Right-axis deviation no longer present Electronically Signed On 12-17-18 21:37:26 STRIPPER APPRENTICE by Yaniv Machado
--- NOTE | 2018-12-18 07:20 | DS ---
Date of Discharge: 12/16/2018 Disposition: Transfer to [facility] in [place]. Physical Examination: See copy of today's progress note for details. Hospital Course: This is an 83-year-old very pleasant female patient who was admitted to the hospital almost a month ago and during that hospital admission, she was treated for pneumonia, congestive heart failure, and atrial fibrillation with rapid ventricular rate. Her atrial fibrillation with rapid ventricular rate caused her to have cardiovascular instability and she required electrical cardioversion and she was started on amiodarone IV, which was later on changed to oral amiodarone. The patient was discharged to go to group home facility. The patient was brought in to emergency room with the right leg which was diagnosed at the [facility] and we did confirm that with repeat venous Doppler in the emergency room. The patient has CLL, anemia, and thrombocytopenia, so when I was contacted from the ER with this acute DVT of the right leg, my recommendation was for us to send the patient to [place] under care of her supervisor scouring pads/oncologist, Dr. Benedict. Dr. Benedict accepted the patient and unfortunately, we did not get any bed available at [facility] where Dr. Benedict takes care of his patient. So after waiting in the emergency room for almost 24 hours, decision was made to admit the patient to our hospital under my service and I was in constant communication with Dr. Benedict who also communicated with coagulation specialist and informed me to treat her with Lovenox 0.5 mg subcutaneous injection every 12 hours and this Lovenox therapy was started and the patient received this Lovenox therapy throughout this hospitalization. She tolerated that very well and did not have any significant drop in her platelet count. The patient did have anemia problem and required altogether 3 units of blood transfusion during this hospitalization. There was no evidence of GI blood loss. Her WBC count remained stable. Initial chest x-ray was clear, but subsequently she had low- grade fever and started to have rales in her lungs. Repeat chest x-ray revealed concerns about pneumonia as well as congestive heart failure, so we started treating her with IV Zosyn and IV Lasix. We had to increase the dose of Lasix a few days ago. Over past weekend, she was looking much better, but last 2-3 days, she started to appear more weak and tired looking. We are not sure whether this is overall decline in her health or medication side effect could be contributing factor, as she is requiring alprazolam 0.25 mg 1 to 2 times a day on an as-needed basis for anxiety problem and it is working very well for her anxiety. I have reduced the dose of amitriptyline from 10 mg twice a day to 10 mg only at bedtime to see if that helps her sleepiness and tiredness problem. We did see improvement in her congestive heart failure problem and pneumonia problem, but she started to have all of a sudden problem today on the day of discharge with atrial fibrillation with rapid ventricular rate again. Cardiology consultation was obtained, and I gave her 1 dose of Lopressor 5 mg slow IV push in the morning and she still continues to have atrial fibrillation with rapid ventricular rate with heart rate anywhere between [address] Machado saw her from Cardiology point of view and he recommended for us to transfer her to [place] for consideration of binder and box builder evaluation for ablation therapy. Details were discussed with the patient's family member and they were in agreement and I did contact her traveling plant operator, Dr. Rushing, who was not available, but his partner, Dr. Parra, was available and details were discussed with him. He accepted the patient, but later on we were informed that [facility] did not have any bed available so our option was to go to other hospital and family agreed, so we made arrangements for her to go to [facility] in [place], and traveling plant operator on-call, Dr. Neville, was available to provide all the details and he accepted the patient and the patient was transferred in stable condition via ground ambulance. We did repeat her venous Doppler of lower extremity and that showed improvement in her right leg DVT. Final Diagnoses: 1. Acute deep venous thrombosis, right leg. 2. Anemia. 3. Chronic lymphocytic leukemia. 4. Thrombocytopenia. 5. Pneumonia. 6. Congestive heart failure, chronic, diastolic, with acute exacerbation. 7. Generalized weakness. 8. Diabetic neuropathy. 9. Coronary artery disease. 10. Chronic kidney disease stage 3. 11. Aortic valve stenosis. 12. Gastroesophageal reflux disease. Laboratory Data: Labs done during this hospitalization: Her initial white count upon admission was 41.5, last white count on the day of discharge was 20.3 and that was her lowest white count for this admission. Initial hemoglobin was 7, lowest hemoglobin was 6.7, and last hemoglobin was 8.2 on the day of discharge. Initial platelet was 48, lowest platelet was 37, and last platelet on the day of discharge was 47. DELANO/ZACK Voice ID: [id number] Report ID: [id number]
== END 2018-12-16 21:30 | disposition short-term general hospital (02) | DRG 300 ==
LOC: ER 09:57 → ERHOLD 12-08 17:06 → 2ND 12-08 18:11
PROVIDERS: ADMIT Internal Medicine; ATTEND Internal Medicine
PROC: 30233N1 Transfusion of Nonautologous Red Blood Cells into Peripheral Vein, Percutaneous Approach (ICD-10-PCS; principal; 2018-12-09)
DX: I82.4Z1 Acute embolism and thrombosis of unspecified deep veins of right distal lower extremity (principal); C91.10 Chronic lymphocytic leukemia of B-cell type not having achieved remission; I13.0 Hypertensive heart and chronic kidney disease with heart failure and stage 1 through stage 4 chronic kidney disease, or unspecified chronic kidney disease; I50.22 Chronic systolic (congestive) heart failure; D64.9 Anemia, unspecified; D69.6 Thrombocytopenia, unspecified; Z88.8 Allergy status to other drugs, medicaments and biological substances; Z95.810 Presence of automatic (implantable) cardiac defibrillator; Z79.01 Long term (current) use of anticoagulants; Z95.2 Presence of prosthetic heart valve; I25.10 Atherosclerotic heart disease of native coronary artery without angina pectoris; Z95.5 Presence of coronary angioplasty implant and graft; F32.9 Major depressive disorder, single episode, unspecified; N18.3 Chronic kidney disease, stage 3 (moderate); E11.22 Type 2 diabetes mellitus with diabetic chronic kidney disease; Z79.4 Long term (current) use of insulin; Z79.84 Long term (current) use of oral hypoglycemic drugs; E11.40 Type 2 diabetes mellitus with diabetic neuropathy, unspecified; E78.2 Mixed hyperlipidemia; I48.91 Unspecified atrial fibrillation; I35.0 Nonrheumatic aortic (valve) stenosis; K57.90 Diverticulosis of intestine, part unspecified, without perforation or abscess without bleeding; K21.9 Gastro-esophageal reflux disease without esophagitis; E83.42 Hypomagnesemia
CPT/HCPCS: 36415; 71045; 80048; 80053; 81001; 82962; 83735; 83880; 84484; 85014; 85018; 85025; 85027; 85610; 86850; 86900; 86901; 86922; 93005; 93971; 94660; 94760; 96372; 97110; 97112; 97163; 97530; 99285; J1650; J1940; J2543; J3475; P9016